=== PATIENT | male | born 1955 | race Caucasian/White ===

== ENCOUNTER 2017-11-26 12:37 | Emergency (ER) | payer MEDICARE, SELFPAY ==
[2017-11-26 12:38] VITALS: BP 161/104; PULSE 91; RESP 16; TEMP 36.9; O2SAT 100; BMI 29.5
--- NOTE | 2017-11-26 13:00 | VDLE_ITS ---
Reason For Study: swelling RIGHT LEFT GSV is normal. GSV is normal. CFV is compressible, spontaneous, phasic, CFV is compressible, spontaneous, phasic, competent and demonstrates normal competent, and demonstrates normal augmentation. augmentation. FV is compressible, spontaneous, phasic, FV is compressible, spontaneous, phasic, competent and demonstrates normal competent and demonstrates normal augmentation. augmentation. POP V is compressible, spontaneous, phasic, POP V is compressible, spontaneous, phasic, competent and demonstrates normal competent and demonstrates normal augmentation. augmentation. T/P Trunk is compressible. T/P Trunk is compressible. PTV is compressible. PTV is compressible. RT PerV is compressible. LT PerV is compressible. Procedure Exam performed portable in ED. The exam was diagnostic. A preliminary report was called and/or faxed to Dr. Caldwell. Interpretation Summary No evidence for acute deep venous thrombosis bilateral lower extremities with patent and compressible bilateral great saphenous veins. Ordering Physician: Blayne Caldwell Performed By: Sukhjinder Rodriguez RVT
[2017-11-26] MEDS: 0.9% Normal Saline 1,000 ML 150 ML IV (13:15)
[2017-11-26 13:17] LABS: Absolute Lymphocyte Count 1.28 X10^3/ul (0.83-4.51); Absolute Neutrophil Count 4.6 X10^3/uL (2.0-7.7); Basophil# 0.03 X10^3/uL; Basophil% 0.5 % (0-1); Eosinophil# 0.17 X10^3/uL; Eosinophils% 2.6 % (0-5); Hematocrit 42.2 % (40-54); Lymphocyte # 1.28 X10^3/ul (4.0); Lymphocyte % 19.2 % (19-41); Mean Corp Hgb Conc 33.2 g/gl (32-36); Mean Corpuscular Hgb 30.4 pg (27.0-32.0); Mean Corpuscular Volume 91.5 fL (80-94); Mean Platelet Vol. 10.2 fl (6.2-12.0); Monocyte# 0.57 X10^3/uL; Monocyte% 8.6 % (0-10); Neutrophil # 4.59 X10^3/uL (2.7-7.7); Neutrophil % 68.8 % (47-70); Platelet Count 185 K/mm3 (150-450); RBC Distribution Width CV 13.1 % (11.6-14.6); RBC Distribution Width SD 43.3 fl (35.1-43.9); Red Blood Count 4.61 M/mm3 (4.6-6.2); White Blood Count 6.7 K/mm3 (4.4-11.0)
--- NOTE | 2017-11-26 13:22 | ED.DCSUM_ITS ---
- ER Visit Summary Date of Service: 11/26/17 Chief Complaint: [Bilateral leg edema and erythema] History of Present Illness: The patient is a 62 M [presents the emergency department chief complaint of red swollen legs ?3-4 months. Patient states that he was seen at urgent care today and was advised to come to the emergency department. Patient denies any fever. Denies any injury to his legs. He denies recent travel or surgery. Patient relates a history years ago of sepsis from strep related to a left foot wound that required debridement. Patient has a history of diabetes, hypertension, COPD, seizure disorder, and sepsis history. ] Physical Examination: [HEENT-PERRLA, EOMI. Cranial nerves II through XII grossly intact. TMs clear. Mucous membranes moist. No adenopathy. Cardiovascular-regular rate and rhythm without murmur or ectopy Lungs-clear to auscultation, chest wall stable without crepitus or subcu emphysema Abdomen-normoactive bowel sounds, soft, nontender, no rebound or rigidity, no peritoneal signs. Extremities-intact ?4, normal range of motion, normal pulses, atraumatic]. Patient has diffuse erythema of both lower extremities below the knee and down to both feet. Lower extremities are warm to the touch. Normal pulses palpated in both lower extremities. Test Results: [Venous duplex of both lower extremities were negative for DVT. CBC with differential showed a white blood cell count of 6.7, hemoglobin 14, hematocrit 42, platelets 185. Chemistries unremarkable.] Emergency Department Course and Treatment: [Patient was medicated with Unasyn 3 g IV.] Treatment Plan: [Patient will be treated with Keflex and advised to follow-up with his primary care physician within the next 3-5 days. Patient to return if fever, increased redness or swelling, or condition should worsen in any way.] Disposition: [Discharged to home in stable condition.] Impression: [Bilateral lower extremity cellulitis] This note was generated with [employer] dictation software. It may contain incorrect words, spelling, and punctuation that were not noted in review of the chart prior to signing ED Disposition - Plan for ED Patient: Chief Complaint: Cellulitis Referrals: Dhara Taylor DO [Primary Care Provider] -
[2017-11-26 13:28] LABS: POSITIVE COUNT NO; POSITIVE DIFFERENTIAL NO; POSITIVE MORPHOLOGY NO
[2017-11-26 13:36] LABS: Anion Gap 4 (5-15); BUN 21 mg/dL (7-18); BUN/Creat Ratio 19.3 RATIO (10-20); Chloride 102 mmol/L (98-107); Creatinine, Serum 1.09 mg/dL (0.70-1.30); EST Glomerular Filtration Rate 73 mL/min (>60); Est Glom Filt Rate - Afr Amer 88 mL/min (>60); Estimated Creatinine Clearance 73.48 ml/min; Glucose 85 mg/dL (74-106); Potassium 4.1 mmol/L (3.5-5.1); Sodium Level 139 mmol/L (136-145)
--- NOTE | 2017-11-26 14:35 | ED.DEP ---
ED Disposition - Plan for ED Patient: Chief Complaint: Cellulitis Instructions: Discharge Instructions for Cellulitis Prescriptions: Cephalexin [Keflex] 500 mg PO Q6 #40 cap Referrals: Dhara Taylor DO [Primary Care Provider] - 3-5 Days
[2017-11-26 14:48] VITALS: BP 129/84; PULSE 71; RESP 16; O2SAT 97
== END 2017-11-26 14:49 | disposition home or self-care (01) ==
LOC: ED 13:03
PROVIDERS: Emergency Provider Emergency Medicine; Family Provider Internal Medicine; PCP Internal Medicine
DX: L03.116 Cellulitis of left lower limb (principal); L03.115 Cellulitis of right lower limb; E11.9 Type 2 diabetes mellitus without complications; I10 Essential (primary) hypertension; J44.9 Chronic obstructive pulmonary disease, unspecified; J45.909 Unspecified asthma, uncomplicated; G40.909 Epilepsy, unspecified, not intractable, without status epilepticus; Z86.19 Personal history of other infectious and parasitic diseases; Z72.0 Tobacco use; Z79.82 Long term (current) use of aspirin; Z79.84 Long term (current) use of oral hypoglycemic drugs; Z79.899 Other long term (current) drug therapy
CPT/HCPCS: 80048; 85025; 93970; 96361; 96365; 99283; J7030; J0295

== ENCOUNTER → 2018-01-21 08:11 | Outpatient (CLI) | payer MEDICARE, SELFPAY ==
[2018-01-21 09:16] LABS: Platelet Count 178 K/mm3 (150-450)
[2018-01-21 09:48] LABS: Valproic Acid (Depakene) Level 73 ug/mL (50-100)
[2018-01-21 09:53] LABS: AST(SGOT) 20 U/L (15-37); Alanine Aminotransfer ALT/SGPT 15 U/L (16-61)
== END ==
PROVIDERS: Family Provider Internal Medicine; PCP Internal Medicine; Visit Provider Psychiatry & Neurology Psychiatry
DX: Z79.899 Other long term (current) drug therapy (principal)
CPT/HCPCS: 36415; 80164; 84450; 84460; 85049

== ENCOUNTER 2018-03-18 17:09 | Emergency (ER) | payer MEDICARE, SELFPAY ==
[2018-03-18 17:11] VITALS: BP 168/99; PULSE 89; RESP 18; TEMP 36.5; O2SAT 99; BMI 28.7
--- NOTE | 2018-03-18 18:15 | ED.VISSUMM ---
- ER Visit Summary Date of Service: 03/18/18 Chief Complaint: Left forearm pain History of Present Illness: The patient is a 62 M presenting with left forearm pain ?5-6 months. He states he has pain to the volar aspect of the left forearm. He states this has been ongoing for the past 5-6 months. He is concerned about possibility of fibromyalgia. He denies any injury. Denies chest pain or shortness of breath. Denies fever. He saw his primary care physician yesterday but did not mention this to her. He has tried ibuprofen at home. Denies other complaints. Physical Examination: Vitals are stable. Patient is afebrile. Alert no acute distress. HEENT exam is unremarkable. Neck is supple. Lungs are clear and equal bilaterally. Heart is regular rate and rhythm. Abdomen is soft nontender nondistended. Extremities are unremarkable. No erythema or warmth. No bony tenderness. AFROM. Normal distal pulses, normal cap refill Skin is warm and dry. No focal neurologic deficit. Remainder of exam is unremarkable. Emergency Department Course and Treatment: Patient is given Motrin. Advised to follow-up with his primary care physician. Advised return to ED for worsening complaints. Disposition: Discharge home Impression: Left forearm pain This note was generated with [employer] dictation software. It may contain incorrect words, spelling, and punctuation that were not noted in review of the chart prior to signing ED Disposition - Plan for ED Patient: Chief Complaint: Upper Extremity Injury Referrals: Dhara Taylor DO [Primary Care Provider] -
--- NOTE | 2018-03-18 18:17 | ED.DEP ---
ED Disposition - Plan for ED Patient: Chief Complaint: Upper Extremity Injury Instructions: ED Spasm Muscle Referrals: Dhara Taylor DO [Primary Care Provider] -
[2018-03-18] MEDS: Ibuprofen 600 MG Tablet PO (18:18)
== END 2018-03-18 18:36 | disposition home or self-care (01) ==
LOC: ED 18:20
PROVIDERS: Emergency Provider Emergency Medicine; Family Provider Internal Medicine; PCP Internal Medicine
DX: M79.632 Pain in left forearm (principal); G89.29 Other chronic pain; F20.9 Schizophrenia, unspecified; Z79.82 Long term (current) use of aspirin; Z79.84 Long term (current) use of oral hypoglycemic drugs; Z79.899 Other long term (current) drug therapy
CPT/HCPCS: 99283

== ENCOUNTER 2018-04-04 15:30 | Outpatient (RCR) | payer MEDICARE, SELFPAY ==
[2018-03-21 13:53] VITALS: BP 146/80; PULSE 83; RESP 18; TEMP 35.9; BMI 27.9
--- NOTE | 2018-03-21 20:29 | PCM.WC.HP ---
(1) Ulcer of left borja with fat layer exposed Status: Acute Current Visit: Yes Code(s): L97.822 - Non-pressure chronic ulcer of other part of left lower leg with fat layer exposed (2) Venous ulcer of left lower extremity without varicose veins Status: Acute Current Visit: Yes Code(s): I87.2 - Venous insufficiency (chronic) (peripheral); L97.929 - Non-pressure chronic ulcer of unspecified part of left lower leg with unspecified severity (3) COPD (chronic obstructive pulmonary disease) Status: Chronic Current Visit: Yes Qualifiers: COPD type: unspecified COPD Qualified Code(s): J44.9 - Chronic obstructive pulmonary disease, unspecified Code(s): J44.9 - Chronic obstructive pulmonary disease, unspecified (4) Type II diabetes mellitus Status: Chronic Current Visit: Yes Qualifiers: Diabetes mellitus terminal makeup operator insulin use: without fci use Diabetes mellitus complication status: without complication Qualified Code(s): E11.9 - Type 2 diabetes mellitus without complications Code(s): E11.9 - Type 2 diabetes mellitus without complications (5) Bilateral leg edema Status: Chronic Current Visit: Yes Code(s): R60.0 - Localized edema (6) Schizophrenia Status: Acute Current Visit: Yes Qualifiers: Schizophrenia type: disorganized schizophrenia Qualified Code(s): F20.1 - Disorganized schizophrenia Code(s): F20.9 - Schizophrenia, unspecified History of Present Illness Date of Service: 03/21/18 Chief Complaint: Wound to the left borja History of Wound: Ajit presents to the wound center for treatment of a nonhealing wound of his left borja that he has had for several weeks. He thinks he may have scratched it in brambles. He has edema to LE b/l and has been treated here in the past for similar wounds. He had arterial studies in 2013 which did not show any significant arterial disease. He had venous studies done in 11/2017 which did not show DVT or incompetent veins in his LE. Dr. Taylor treated him with 2 different antibiotics and he has been applying topical ointment and gauze to the wound but it was not improving. He did start wearing compression stockings in the last day or two. He denies pain, fever, chills, odor or drainage. He lives in a skilled nursing and cares for himself with supervision from staff. He is accompanied today by his telephonic nurse case manager, Isaca. Past Medical History Past Medical History: Chronic Problems COPD (chronic obstructive pulmonary disease) (Chronic) Right-sided heart failure (Chronic) Type II diabetes mellitus (Chronic) Bilateral leg edema (Chronic) Surgical History: tonsillectomy, - - Debridement of left foot ulcer Allergies/Adverse Reactions: Allergies sulfamethoxazole Allergy (Mild, Verified 03/18/18 17:12) Unknown trimethoprim Allergy (Mild, Verified 03/18/18 17:12) Unknown Penicillins [PCN] Allergy (Verified 03/21/18 20:36) Unknown Home Medications: Ambulatory Orders Medication Instructions Recorded Fluticasone/Salmeterol [Advair 1 puff INHALATION BID 02/12/15 500/50 Mcg Diskus] Metformin HCl [Glucophage] 500 mg PO TID 02/12/15 Multivitamin [Multiple Vitamins] 1 tab PO DAILY 09/23/16 Aspirin [Aspirin EC] 325 mg PO DAILY 09/25/16 Lorazepam [Ativan] 1 mg PO DAILY PRN 09/25/16 Divalproex Sodium [Depakote] 500 mg PO DAILY 03/30/17 Risperidone Microspheres 50 mg IM QMONTH 03/30/17 [Risperdal Consta] Fluticasone Propionate [Flonase 1 spray NARES DAILY #1 spray.susp 08/07/17 Allergy Relief] Benztropine [Cogentin] 1 mg PO TID 11/26/17 Albuterol Inhaler [Ventolin Hfa 2 puff INHALATION Q6H PRN PRN 03/21/18 (SP)] Bupropion HCl [Bupropion HCl ER] 150 mg PO DAILY 03/21/18 Doxycycline Hyclate 100 mg PO BID 03/21/18 Fexofenadine HCl 1 tab PO DAILY 03/21/18 Lisinopril 20 mg PO DAILY 03/21/18 Metformin HCl [Glucophage] 500 mg PO DAILY 03/21/18 Multivitamin [Daily Multiple 1 each PO DAILY 03/21/18 Vitamin] - Family History Maternal Heart Disease Paternal Diabetes Sibling Hypertension Lives: - - skilled nursing Smoking Status: Current every day smoker Tobacco Use: Cigarettes Alcohol: None Drugs: Marijuana Review of Systems Constitutional: Denies: Chills, Fever, Weight Change Eyes: Denies: Pain, Vision Change HEENT: Denies: Difficulty Hearing, Difficulty Swallowing, Sinus Congestion Cardiovascular: Denies: Chest Pain, Palpitations Respiratory: Denies: Cough, Shortness of Breath Gastrointestinal: Denies: Diarrhea, Nausea, Vomiting Genitourinary: Denies: Dysuria, Hematuria Skin: Reports: Wounds Psychiatric: Denies: Homicidal Ideations, Suicidal Ideations Hematologic/ Lymphatic: Denies: Easy Bruising, Easy Bleeding - Physical Exam Vital Signs Temp Pulse Resp BP 96.6 F L 83 18 146/80 H 03/21/18 13:53 03/21/18 13:53 03/21/18 13:53 03/21/18 13:53 General: Alert, Oriented x3, Cooperative, No apparent distress HEENT: Atraumatic, Normocephalic Oral: Moist Mucosa Neck: Supple, No JVD, Negative Carotid Bruits Lungs: Clear to auscultation Cardiovascular: Regular rate, Regular Rhythm Abdomen: Soft, Non Tender, Obese Extremities: Edema, Peripheral Pulses Normal Skin: Ulcer/ Wound Wound Measurements and Assessment WC - Nurse 1 - General Ulcer Measurement Start: 03/21/18 13:50 Freq: Status: Active Protocol: Activity Type Activity Date Activity User E-Sign Co-Sign Detail Recorded Client Recorded Date Recorded By Document 03/21/18 13:53 DL [id number] 03/21/18 14:14 DL 03/21/18 13:53 Wound Center Nurse 1 [Ulcer Assessment] #2 left borja -Combined with other wound No -Current Size (cm) - Length 0.8 -Current Size (cm) - Width 0.7 -Current Size (cm) - Depth 0.1 -Total Square Cm 0.56 -Date of Last Picture (Recall this 03/21/18 field) -Photo Taken Yes -Epithelialization None Present -Tunneling No -Undermining/Tunneling No -Circular Undermining No -Classification - Thickness Partial Thickness -Exudate Amt None Present (0 %) -Wound Margin Distinct, Outline Attached -Granulation Amt Small (1-33%) -Granulation Quality Sultan -Necrosis Amt None Present (0 %) -Necrotic Tissue Type Adherent Slough -Structure Exposed None/Limited to Skin Breakdown -Texture (Marianela-wound Skin Appearance) No Abnormality Assessed -Moisture (Marianela-wound Skin Appearance No Abnormality ) Assessed -Color (Marianela-wound Skin Appearance) No Abnormality Assessed -Temperature (Marianela-wound Skin No Abnormality Appearance) (Pt Warm) -Tenderness on Palpation (Marianela-wound No Skin Appearance) -Ulcer Cleansing Wound Cleanser -Foul Odor after Cleansing No -Anesthetic Used 4% Lidocaine Solution [Edema Assessment] -Lower Limb Edema Present Yes -Right Calf (cm) 38 -Right Ankle (cm) 24.5 -Left Calf (cm) 37.8 -Left Ankle (cm) 22.8 NUVIA - Nurse 2 - General Ulcer CM Notes Start: 03/21/18 13:50 Freq: Status: Active Protocol: Activity Type Activity Date Activity User E-Sign Co-Sign Detail Recorded Client Recorded Date Recorded By Document 03/21/18 15:45 DV [id number] 03/21/18 15:51 DV 03/21/18 15:45 Wound Center Nurse 2 [Procedure/Treatment] #2 left borja -Time 15:45 -Post Debridement Size (cm) - Length 1.1 -Post Debridement Size (cm) - Width 0.6 -Post Debridement Size (cm) - Depth 0.1 -Total Square Cm 0.66 -Wound/Ulcer Outcome Not Healed -Ulcer Cleansing Rinsed/ Irrigated with Saline -Foul Odor after Cleansing No -Bioengineered Tissue No -Bleeding Controlled with NA -Treatment Response Procedure Tolerated Well [See Physician Procedure note for Specifics] Pain Scale: 0-10 Numeric [Pain] -Is Patient Pain Free? Yes Psych/Mental Status: Flat Affect Debridement Note Post-Debridement Measurements/Treatment WC - Nurse 2 - General Ulcer CM Notes Start: 03/21/18 13:50 Freq: Status: Active Protocol: Activity Type Activity Date Activity User E-Sign Co-Sign Detail Recorded Client Recorded Date Recorded By Document 03/21/18 15:45 DV [id number] 03/21/18 15:51 DV 03/21/18 15:45 Wound Center Nurse 2 #2 left borja -Time 15:45 -Post Debridement Size (cm) - Length 1.1 -Post Debridement Size (cm) - Width 0.6 -Post Debridement Size (cm) - Depth 0.1 -Total Square Cm 0.66 -Wound/Ulcer Outcome Not Healed -Ulcer Cleansing Rinsed/ Irrigated with Saline -Foul Odor after Cleansing No -Bioengineered Tissue No -Bleeding Controlled with NA -Treatment Response Procedure Tolerated Well Pain Scale: 0-10 Numeric Is Patient Pain Free? Yes Wound debrided: left borja Laterality: Left Type of Debridement: Excisional debridement Anesthesia Used: 4% Lidocaine Solution, 5% Lidocaine Gel Depth: Down to and including healthy tissue, in the subcutaneous layer Percentage of wound debrided: 100 Instrument Used: 5mm curette Tissue Removed: yellow slough, devitalized tissue Severity: Fat Layer Exposed Amount of bleeding with debridement: Mild Bleeding Controlled with: Compression and gauze Patient tolerated procedure well Assessment/Plan Active Problems Ulcer of left borja with fat layer exposed (Acute) Venous ulcer of left lower extremity without varicose veins (Acute) Schizophrenia (Acute) COPD (chronic obstructive pulmonary disease) (Chronic) Type II diabetes mellitus (Chronic) Bilateral leg edema (Chronic) Assessment: nonhealing wound left borja. venous ulcer left borja. b/l LE edema. DM type II Plan: Ajit's wound was evaluated and debrided today. His previous testing was reviewed. Will treat his wound with Caron dressings changed daily and advised him to wear his compression stockings. If there is difficulty with healing would repeat his arterial studies. Encouraged increased protein, elevation of LE and wearing compression stockings while awake and removing at bedtime. F/U in 1 week.
--- NOTE | 2018-03-21 20:41 | HP.PCM_ITS ---
(1) Ulcer of left borja with fat layer exposed Status: Acute Current Visit: Yes Code(s): L97.822 - Non-pressure chronic ulcer of other part of left lower leg with fat layer exposed (2) Venous ulcer of left lower extremity without varicose veins Status: Acute Current Visit: Yes Code(s): I87.2 - Venous insufficiency ( chronic) (peripheral); L97.929 - Non-pressure chronic ulcer of unspecified part of left lower leg with unspecified severity (3) COPD (chronic obstructive pulmonary disease) Status: Chronic Current Visit: Yes Qualifiers: COPD type: unspecified COPD Qualified Code(s): J44.9 - Chronic obstructive pulmonary disease, unspecified Code(s): J44.9 - Chronic obstructive pulmonary disease, unspecified (4) Type II diabetes mellitus Status: Chronic Current Visit: Yes Qualifiers: 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 Diabetes mellitus complication status: without complication Qualified Code(s): E11.9 - Type 2 diabetes mellitus without complications Code(s): E11.9 - Type 2 diabetes mellitus without complications (5) Bilateral leg edema Status: Chronic Current Visit: Yes Code(s): R60.0 - Localized edema (6) Schizophrenia Status: Acute Current Visit: Yes Qualifiers: Schizophrenia type: disorganized schizophrenia Qualified Code(s): F20.1 - Disorganized schizophrenia Code(s): F20.9 - Schizophrenia, unspecified History of Present Illness Date of Service: 03/21/18 Chief Complaint: Wound to the left borja History of Wound: Ajit presents to the wound center for treatment of a nonhealing wound of his left borja that he has had for several weeks. He thinks he may have scratched it in brambles. He has edema to LE b/l and has been treated here in the past for similar wounds. He had arterial studies in 2013 which did not show any significant arterial disease. He had venous studies done in 11/2017 which did not show DVT or incompetent veins in his LE. Dr. Taylor treated him with 2 different antibiotics and he has been applying topical ointment and gauze to the wound but it was not improving. He did start wearing compression stockings in the last day or two. He denies pain, fever, chills, odor or drainage. He lives in a skilled nursing and cares for himself with supervision from staff. He is accompanied today by his field case manager, Isaac. Past Medical History Past Medical History: Chronic Problems COPD (chronic obstructive pulmonary disease) (Chronic) Right-sided heart failure (Chronic) Type II diabetes mellitus (Chronic) Bilateral leg edema (Chronic) Surgical History: tonsillectomy, - - Debridement of left foot ulcer Allergies/Adverse Reactions: Allergies sulfamethoxazole Allergy (Mild, Verified 03/18/18 17:12) Unknown trimethoprim Allergy (Mild, Verified 03/18/18 17:12) Unknown Penicillins [PCN] Allergy (Verified 03/21/18 20:36) Unknown Home Medications: Ambulatory Orders Medication Instructions Recorded Fluticasone/Salmeterol [Advair 1 puff INHALATION BID 02/12/15 500/50 Mcg Diskus] Metformin HCl [Glucophage] 500 mg PO TID 02/12/15 Multivitamin [Multiple Vitamins] 1 tab PO DAILY 09/23/16 Aspirin [Aspirin EC] 325 mg PO DAILY 09/25/16 Lorazepam [Ativan] 1 mg PO DAILY PRN 09/25/16 Divalproex Sodium [Depakote] 500 mg PO DAILY 03/30/17 Risperidone Microspheres 50 mg IM QMONTH 03/30/17 [Risperdal Consta] Fluticasone Propionate [Flonase 1 spray NARES DAILY #1 spray.susp 08/07/17 Allergy Relief] Benztropine [Cogentin] 1 mg PO TID 11/26/17 Albuterol Inhaler [Ventolin Hfa 2 puff INHALATION Q6H PRN PRN 03/21/18 (SP)] Bupropion HCl [Bupropion HCl ER] 150 mg PO DAILY 03/21/18 Doxycycline Hyclate 100 mg PO BID 03/21/18 Fexofenadine HCl 1 tab PO DAILY 03/21/18 Lisinopril 20 mg PO DAILY 03/21/18 Metformin HCl [Glucophage] 500 mg PO DAILY 03/21/18 Multivitamin [Daily Multiple 1 each PO DAILY 03/21/18 Vitamin] - Family History Maternal Heart Disease Paternal Diabetes Sibling Hypertension Lives: - - skilled nursing Smoking Status: Current every day smoker Tobacco Use: Cigarettes Alcohol: None Drugs: Marijuana Review of Systems Constitutional: Denies: Chills, Fever, Weight Change Eyes: Denies: Pain, Vision Change HEENT: Denies: Difficulty Hearing, Difficulty Swallowing, Sinus Congestion Cardiovascular: Denies: Chest Pain, Palpitations Respiratory: Denies: Cough, Shortness of Breath Gastrointestinal: Denies: Diarrhea, Nausea, Vomiting Genitourinary: Denies: Dysuria, Hematuria Skin: Reports: Wounds Psychiatric: Denies: Homicidal Ideations, Suicidal Ideations Hematologic/ Lymphatic: Denies: Easy Bruising, Easy Bleeding - Physical Exam Vital Signs Temp Pulse Resp BP 96.6 F L 83 18 146/80 H 03/21/18 13:53 03/21/18 13:53 03/21/18 13:53 03/21/18 13:53 General: Alert, Oriented x3, Cooperative, No apparent distress HEENT: Atraumatic, Normocephalic Oral: Moist Mucosa Neck: Supple, No JVD, Negative Carotid Bruits Lungs: Clear to auscultation Cardiovascular: Regular rate, Regular Rhythm Abdomen: Soft, Non Tender, Obese Extremities: Edema, Peripheral Pulses Normal Skin: Ulcer/ Wound Wound Measurements and Assessment WC - Nurse 1 - General Ulcer Measurement Start: 03/21/18 13:50 Freq: Status: Active Protocol: Activity Type Activity Date Activity User E-Sign Co-Sign Detail Recorded Client Recorded Date Recorded By Document 03/21/18 13:53 DL [id number] 03/21/18 14:14 DL 03/21/18 13:53 Wound Center Nurse 1 [Ulcer Assessment] #2 left borja -Combined with other wound No -Current Size (cm) - Length 0.8 -Current Size (cm) - Width 0.7 -Current Size (cm) - Depth 0.1 -Total Square Cm 0.56 -Date of Last Picture (Recall this 03/21/18 field) -Photo Taken Yes -Epithelialization None Present -Tunneling No -Undermining/Tunneling No -Circular Undermining No -Classification - Thickness Partial Thickness -Exudate Amt None Present (0 %) -Wound Margin Distinct, Outline Attached -Granulation Amt Small (1-33%) -Granulation Quality [place] -Necrosis Amt None Present (0 %) -Necrotic Tissue Type Adherent Slough -Structure Exposed None/Limited to Skin Breakdown -Texture (Marianela-wound Skin Appearance) No Abnormality Assessed -Moisture (Marianela-wound Skin Appearance No Abnormality ) Assessed -Color (Marianela-wound Skin Appearance) No Abnormality Assessed -Temperature (Marianela-wound Skin No Abnormality Appearance) (Pt Warm) -Tenderness on Palpation (Marianela-wound No Skin Appearance) -Ulcer Cleansing Wound Cleanser -Foul Odor after Cleansing No -Anesthetic Used 4% Lidocaine Solution [Edema Assessment] -Lower Limb Edema Present Yes -Right Calf (cm) 38 -Right Ankle (cm) 24.5 -Left Calf (cm) 37.8 -Left Ankle (cm) 22.8 NUVIA - Nurse 2 - General Ulcer CM Notes Start: 03/21/18 13:50 Freq: Status: Active Protocol: Activity Type Activity Date Activity User E-Sign Co-Sign Detail Recorded Client Recorded Date Recorded By Document 03/21/18 15:45 DV [id number] 03/21/18 15:51 DV 03/21/18 15:45 Wound Center Nurse 2 [Procedure/Treatment] #2 left borja -Time 15:45 -Post Debridement Size (cm) - Length 1.1 -Post Debridement Size (cm) - Width 0.6 -Post Debridement Size (cm) - Depth 0.1 -Total Square Cm 0.66 -Wound/Ulcer Outcome Not Healed -Ulcer Cleansing Rinsed/ Irrigated with Saline -Foul Odor after Cleansing No -Bioengineered Tissue No -Bleeding Controlled with NA -Treatment Response Procedure Tolerated Well [See Physician Procedure note for Specifics] Pain Scale: 0-10 Numeric [Pain] -Is Patient Pain Free? Yes Psych/Mental Status: Flat Affect Debridement Note Post-Debridement Measurements/Treatment WC - Nurse 2 - General Ulcer CM Notes Start: 03/21/18 13:50 Freq: Status: Active Protocol: Activity Type Activity Date Activity User E-Sign Co-Sign Detail Recorded Client Recorded Date Recorded By Document 03/21/18 15:45 DV [id number] 03/21/18 15:51 DV 03/21/18 15:45 Wound Center Nurse 2 #2 left borja -Time 15:45 -Post Debridement Size (cm) - Length 1.1 -Post Debridement Size (cm) - Width 0.6 -Post Debridement Size (cm) - Depth 0.1 -Total Square Cm 0.66 -Wound/Ulcer Outcome Not Healed -Ulcer Cleansing Rinsed/ Irrigated with Saline -Foul Odor after Cleansing No -Bioengineered Tissue No -Bleeding Controlled with NA -Treatment Response Procedure Tolerated Well Pain Scale: 0-10 Numeric Is Patient Pain Free? Yes Wound debrided: left borja Laterality: Left Type of Debridement: Excisional debridement Anesthesia Used: 4% Lidocaine Solution, 5% Lidocaine Gel Depth: Down to and including healthy tissue, in the subcutaneous layer Percentage of wound debrided: 100 Instrument Used: 5mm curette Tissue Removed: yellow slough, devitalized tissue Severity: Fat Layer Exposed Amount of bleeding with debridement: Mild Bleeding Controlled with: Compression and gauze Patient tolerated procedure well Assessment/Plan Active Problems Ulcer of left borja with fat layer exposed (Acute) Venous ulcer of left lower extremity without varicose veins (Acute) Schizophrenia (Acute) COPD (chronic obstructive pulmonary disease) (Chronic) Type II diabetes mellitus (Chronic) Bilateral leg edema (Chronic) Assessment: nonhealing wound left borja. venous ulcer left borja. b/l LE edema. DM type II Plan: Ajit's wound was evaluated and debrided today. His previous testing was reviewed. Will treat his wound with Caron dressings changed daily and advised him to wear his compression stockings. If there is difficulty with healing would repeat his arterial studies. Encouraged increased protein, elevation of LE and wearing compression stockings while awake and removing at bedtime. F/U in 1 week.
[2018-03-28 14:39] VITALS: BP 144/78; PULSE 75; RESP 16; TEMP 36.1; BMI 27.9
[2018-04-04 15:16] VITALS: BP 126/76; PULSE 94; RESP 18; TEMP 36.7; BMI 27.9
--- NOTE | 2018-04-04 20:01 | PCM.WC.PN ---
(1) Ulcer of left borja with fat layer exposed Status: Chronic Current Visit: Yes Code(s): L97.822 - Non-pressure chronic ulcer of other part of left lower leg with fat layer exposed (2) Venous ulcer of left lower extremity without varicose veins Status: Chronic Current Visit: Yes Code(s): I87.2 - Venous insufficiency (chronic) (peripheral); L97.929 - Non-pressure chronic ulcer of unspecified part of left lower leg with unspecified severity (3) COPD (chronic obstructive pulmonary disease) Status: Chronic Current Visit: Yes Qualifiers: COPD type: unspecified COPD Qualified Code(s): J44.9 - Chronic obstructive pulmonary disease, unspecified Code(s): J44.9 - Chronic obstructive pulmonary disease, unspecified (4) Type II diabetes mellitus Status: Chronic Current Visit: Yes Qualifiers: Diabetes mellitus prison insulin use: without buttermaker continuous churn use Diabetes mellitus complication status: without complication Qualified Code(s): E11.9 - Type 2 diabetes mellitus without complications Code(s): E11.9 - Type 2 diabetes mellitus without complications (5) Bilateral leg edema Status: Chronic Current Visit: Yes Code(s): R60.0 - Localized edema (6) Schizophrenia Status: Chronic Current Visit: Yes Qualifiers: Schizophrenia type: disorganized schizophrenia Qualified Code(s): F20.1 - Disorganized schizophrenia Code(s): F20.9 - Schizophrenia, unspecified Type of Wound Date of Service: 04/04/18 Chief Complaint: Wound to the left borja History of Wound: Ajit presents to the wound center for treatment of a nonhealing wound of his left borja that he has had for several weeks. He thinks he may have scratched it in brambles. He has edema to LE b/l and has been treated here in the past for similar wounds. He had arterial studies in 2013 which did not show any significant arterial disease. He had venous studies done in 11/2017 which did not show DVT or incompetent veins in his LE. Dr. Taylor treated him with 2 different antibiotics and he has been applying topical ointment and gauze to the wound but it was not improving. He did start wearing compression stockings in the last day or two. He denies pain, fever, chills, odor or drainage. [facility] and cares for himself with supervision from staff. He is accompanied today by his briefcase sewer, Isaac. Progress of Wound: Ajit's wound has healed but he has developed another similar wound on his medial left LE. He denies any known injury. He is wearing compression faithfully. Denies increased drainage or erythema or pain. - Physical Exam Vital Signs Temp Pulse Resp BP 98.0 F 94 18 126/76 H 04/04/18 15:16 04/04/18 15:16 04/04/18 15:16 04/04/18 15:16 General: Alert, Oriented x3, Cooperative, No apparent distress HEENT: Atraumatic, Normocephalic Abdomen: Obese Extremities: Edema Skin: Ulcer/ Wound Wound Measurements and Assessment WC - Nurse 1 - General Ulcer Measurement Start: 03/21/18 13:50 Freq: Status: Active Protocol: Activity Type Activity Date Activity User E-Sign Co-Sign Detail Recorded Client Recorded Date Recorded By Document 04/04/18 15:16 [email or web address] [id number] 04/04/18 15:31 FIDENCIO 04/04/18 15:16 Wound Center Nurse 1 [Ulcer Assessment] #3 LEFT MEDIAL BORJA -Combined with other wound No -Current Size (cm) - Length 0.7 -Current Size (cm) - Width 0.9 -Current Size (cm) - Depth 0.1 -Total Square Cm 0.63 -Date of Last Picture (Recall this 04/04/18 field) -Photo Taken Yes -Epithelialization None Present -Tunneling No -Undermining/Tunneling No -Circular Undermining No -Exudate Amt Small (1-33%) -Exudate Type Serosanguineous -Wound Margin Distinct, Outline Attached -Granulation Amt Small (1-33%) -Granulation Quality Red -Slough/Fibrin Yes -Necrosis Amt None Present (0 %) -Necrotic Tissue Type Adherent Slough -Structure Exposed N/A -Texture (Marianela-wound Skin Appearance) No Abnormality -Moisture (Marianela-wound Skin Appearance No Abnormality ) -Color (Marianela-wound Skin Appearance) No Abnormality -Temperature (Marianela-wound Skin No Abnormality Appearance) (Pt Warm) -Tenderness on Palpation (Marianela-wound No Skin Appearance) -Ulcer Cleansing Rinsed/ Irrigated with Saline -Foul Odor after Cleansing No -Anesthetic Used 4% Lidocaine Solution #2 left borja -Combined with other wound No -Current Size (cm) - Length 0.1 -Current Size (cm) - Width 0.1 -Current Size (cm) - Depth 0.1 -Total Square Cm 0.01 -Date of Last Picture (Recall this 04/04/18 field) -Photo Taken Yes -Epithelialization Large 67-100% -Tunneling No -Undermining/Tunneling No -Circular Undermining No -Change in Wound Grade/Stage No Query Text:If change please identify the Stage/Grade in the comment (ie. S2 G3) -Exudate Amt None Present (0 %) -Wound Margin Distinct, Outline Attached -Granulation Amt None Present (0 %) -Granulation Quality N/A -Slough/Fibrin No -Necrosis Amt None Present (0 %) -Structure Exposed N/A -Texture (Marianela-wound Skin Appearance) No Abnormality -Moisture (Marianela-wound Skin Appearance No Abnormality ) -Color (Marianela-wound Skin Appearance) Hemosiderin Staining -Temperature (Marianela-wound Skin No Abnormality Appearance) (Pt Warm) -Tenderness on Palpation (Marianela-wound No Skin Appearance) -Ulcer Cleansing Rinsed/ Irrigated with Saline -Foul Odor after Cleansing No [Edema Assessment] -Lower Limb Edema Present Yes -Left Calf (cm) 36.7 -Left Ankle (cm) 23.5 WC - Nurse 2 - General Ulcer CM Notes Start: 03/21/18 13:50 Freq: Status: Active Protocol: Activity Type Activity Date Activity User E-Sign Co-Sign Detail Recorded Client Recorded Date Recorded By Document 04/04/18 16:21 [id number] 04/04/18 16:26 04/04/18 16:21 Wound Center Nurse 2 [Procedure/Treatment] #3 LEFT MEDIAL BORJA -Time 16:21 -Correct Patient Yes -Correct Side, Site, Position Yes -Correct Procedure Yes -Procedure Performed Yes -Type of Procedure Debridement -Clinical Debridement Subcutaneous -Post Debridement Size (cm) - Length 0.8 -Post Debridement Size (cm) - Width 0.8 -Post Debridement Size (cm) - Depth 0.1 -Total Square Cm 0.64 -Wound/Ulcer Outcome Not Healed -Ulcer Cleansing Rinsed/ Irrigated with Saline -Foul Odor after Cleansing No -Bioengineered Tissue No -Topical Lidocaine (%) 4 -Bleeding Controlled with Pressure -Treatment Response Procedure Tolerated Well #2 left borja -Time 16:21 -Correct Patient Yes -Correct Side, Site, Position Yes -Correct Procedure Yes -Procedure Performed Yes -Post Debridement Size (cm) - Length 0 -Post Debridement Size (cm) - Width 0 -Post Debridement Size (cm) - Depth 0 -Total Square Cm 0 -Wound/Ulcer Outcome Healed- Epithelialized -Ulcer Cleansing Rinsed/ Irrigated with Saline -Foul Odor after Cleansing No -Bioengineered Tissue No -Bleeding Controlled with NA -Treatment Response Procedure Tolerated Well [See Physician Procedure note for Specifics] Pain Scale: 0-10 Numeric [Pain] -Is Patient Pain Free? Yes Psych/Mental Status: Normal Affect, Appropriate Debridement Note Post-Debridement Measurements/Treatment WC - Nurse 2 - General Ulcer CM Notes Start: 03/21/18 13:50 Freq: Status: Active Protocol: Activity Type Activity Date Activity User E-Sign Co-Sign Detail Recorded Client Recorded Date Recorded By Document 03/21/18 15:45 DV [id number] 03/21/18 15:51 DV Document 04/04/18 16:21 TM [id number] 04/04/18 16:26 TM 03/21/18 04/04/18 15:45 16:21 Wound Center Nurse 2 #3 LEFT MEDIAL BORJA -Time 16:21 -Correct Patient Yes -Correct Side, Site, Position Yes -Correct Procedure Yes -Procedure Performed Yes -Type of Procedure Debridement -Clinical Debridement Subcutaneous -Post Debridement Size (cm) - Length 0.8 -Post Debridement Size (cm) - Width 0.8 -Post Debridement Size (cm) - Depth 0.1 -Total Square Cm 0.64 -Wound/Ulcer Outcome Not Healed -Ulcer Cleansing Rinsed/ Irrigated with Saline -Foul Odor after Cleansing No -Bioengineered Tissue No -Topical Lidocaine (%) 4 -Bleeding Controlled with Pressure -Treatment Response Procedure Tolerated Well #2 left borja -Time 15:45 16:21 -Correct Patient Yes -Correct Side, Site, Position Yes -Correct Procedure Yes -Procedure Performed Yes -Post Debridement Size (cm) - Length 1.1 0 -Post Debridement Size (cm) - Width 0.6 0 -Post Debridement Size (cm) - Depth 0.1 0 -Total Square Cm 0.66 0 -Wound/Ulcer Outcome Not Healed Healed- Epithelialized -Ulcer Cleansing Rinsed/ Rinsed/ Irrigated with Irrigated with Saline Saline -Foul Odor after Cleansing No No -Bioengineered Tissue No No -Bleeding Controlled with NA NA -Treatment Response Procedure Procedure Tolerated Well Tolerated Well Pain Scale: 0-10 Numeric Is Patient Pain Free? Yes Yes Wound debrided: left borja Laterality: Left No debridement was completed today - due to wound healed - Additional Wound Wound debrided: left medial borja Laterality: Left Type of Debridement: Excisional debridement Anesthesia Used: 4% Lidocaine Solution Depth: Down to and including healthy tissue, in the subcutaneous layer Percentage of wound debrided: 100 Instrument Used: 5mm curette Tissue Removed: yellow slough, devitalized tissue Severity: Fat Layer Exposed Amount of bleeding with debridement: Mild Bleeding Controlled with: Pressure Patient tolerated procedure: Patient tolerated procedure well Assessment/Plan Active Problems Ulcer of left borja with fat layer exposed (Chronic) Venous ulcer of left lower extremity without varicose veins (Chronic) Schizophrenia (Chronic) COPD (chronic obstructive pulmonary disease) (Chronic) Type II diabetes mellitus (Chronic) Bilateral leg edema (Chronic) Assessment: nonhealing wound left borja. venous ulcer left borja. b/l LE edema. DM type II Plan: Ajit's wound was evaluated and debrided today. His previous testing has been reviewed and is not significant for valvular incompetence or arterial disease. Will treat his new wound with Caron dressings changed daily and advised him to wear his compression stockings. Encouraged increased protein, elevation of LE and wearing compression stockings while awake and removing at bedtime. F/U in 1 week.
--- NOTE | 2018-04-04 20:05 | PN.PCM_ITS ---
(1) Ulcer of left borja with fat layer exposed Status: Chronic Current Visit: Yes Code(s): L97.822 - Non-pressure chronic ulcer of other part of left lower leg with fat layer exposed (2) Venous ulcer of left lower extremity without varicose veins Status: Chronic Current Visit: Yes Code(s): I87.2 - Venous insufficiency ( chronic) (peripheral); L97.929 - Non-pressure chronic ulcer of unspecified part of left lower leg with unspecified severity (3) COPD (chronic obstructive pulmonary disease) Status: Chronic Current Visit: Yes Qualifiers: COPD type: unspecified COPD Qualified Code(s): J44.9 - Chronic obstructive pulmonary disease, unspecified Code(s): J44.9 - Chronic obstructive pulmonary disease, unspecified (4) Type II diabetes mellitus Status: Chronic Current Visit: Yes Qualifiers: Diabetes mellitus oil heaterman insulin use: without oil heaterman use Diabetes mellitus complication status: without complication Qualified Code(s): E11.9 - Type 2 diabetes mellitus without complications Code(s): E11.9 - Type 2 diabetes mellitus without complications (5) Bilateral leg edema Status: Chronic Current Visit: Yes Code(s): R60.0 - Localized edema (6) Schizophrenia Status: Chronic Current Visit: Yes Qualifiers: Schizophrenia type: disorganized schizophrenia Qualified Code(s): F20.1 - Disorganized schizophrenia Code(s): F20.9 - Schizophrenia, unspecified Type of Wound Date of Service: 04/04/18 Chief Complaint: Wound to the left borja History of Wound: Ajit presents to the wound center for treatment of a nonhealing wound of his left borja that he has had for several weeks. He thinks he may have scratched it in brambles. He has edema to LE b/l and has been treated here in the past for similar wounds. He had arterial studies in 2013 which did not show any significant arterial disease. He had venous studies done in 11/2017 which did not show DVT or incompetent veins in his LE. Dr. Taylor treated him with 2 different antibiotics and he has been applying topical ointment and gauze to the wound but it was not improving. He did start wearing compression stockings in the last day or two. He denies pain, fever, chills, odor or drainage. [facility] and cares for himself with supervision from staff. He is accompanied today by his telephonic nurse case manager, Isaac. Progress of Wound: Ajit's wound has healed but he has developed another similar wound on his medial left LE. He denies any known injury. He is wearing compression faithfully. Denies increased drainage or erythema or pain. - Physical Exam Vital Signs Temp Pulse Resp BP 98.0 F 94 18 126/76 H 04/04/18 15:16 04/04/18 15:16 04/04/18 15:16 04/04/18 15:16 General: Alert, Oriented x3, Cooperative, No apparent distress HEENT: Atraumatic, Normocephalic Abdomen: Obese Extremities: Edema Skin: Ulcer/ Wound Wound Measurements and Assessment WC - Nurse 1 - General Ulcer Measurement Start: 03/21/18 13:50 Freq: Status: Active Protocol: Activity Type Activity Date Activity User E-Sign Co-Sign Detail Recorded Client Recorded Date Recorded By Document 04/04/18 15:16 [email or web address] [id number] 04/04/18 15:31 FIDENCIO 04/04/18 15:16 Wound Center Nurse 1 [Ulcer Assessment] #3 LEFT MEDIAL BORJA -Combined with other wound No -Current Size (cm) - Length 0.7 -Current Size (cm) - Width 0.9 -Current Size (cm) - Depth 0.1 -Total Square Cm 0.63 -Date of Last Picture (Recall this 04/04/18 field) -Photo Taken Yes -Epithelialization None Present -Tunneling No -Undermining/Tunneling No -Circular Undermining No -Exudate Amt Small (1-33%) -Exudate Type Serosanguineous -Wound Margin Distinct, Outline Attached -Granulation Amt Small (1-33%) -Granulation Quality Red -Slough/Fibrin Yes -Necrosis Amt None Present (0 %) -Necrotic Tissue Type Adherent Slough -Structure Exposed N/A -Texture (Marianela-wound Skin Appearance) No Abnormality -Moisture (Marianela-wound Skin Appearance No Abnormality ) -Color (Marianela-wound Skin Appearance) No Abnormality -Temperature (Marianela-wound Skin No Abnormality Appearance) (Pt Warm) -Tenderness on Palpation (Marianela-wound No Skin Appearance) -Ulcer Cleansing Rinsed/ Irrigated with Saline -Foul Odor after Cleansing No -Anesthetic Used 4% Lidocaine Solution #2 left borja -Combined with other wound No -Current Size (cm) - Length 0.1 -Current Size (cm) - Width 0.1 -Current Size (cm) - Depth 0.1 -Total Square Cm 0.01 -Date of Last Picture (Recall this 04/04/18 field) -Photo Taken Yes -Epithelialization Large 67-100% -Tunneling No -Undermining/Tunneling No -Circular Undermining No -Change in Wound Grade/Stage No Query Text:If change please identify the Stage/Grade in the comment (ie. S2 G3) -Exudate Amt None Present (0 %) -Wound Margin Distinct, Outline Attached -Granulation Amt None Present (0 %) -Granulation Quality N/A -Slough/Fibrin No -Necrosis Amt None Present (0 %) -Structure Exposed N/A -Texture (Marianela-wound Skin Appearance) No Abnormality -Moisture (Marianela-wound Skin Appearance No Abnormality ) -Color (Marianela-wound Skin Appearance) Hemosiderin Staining -Temperature (Marianela-wound Skin No Abnormality Appearance) (Pt Warm) -Tenderness on Palpation (Marianela-wound No Skin Appearance) -Ulcer Cleansing Rinsed/ Irrigated with Saline -Foul Odor after Cleansing No [Edema Assessment] -Lower Limb Edema Present Yes -Left Calf (cm) 36.7 -Left Ankle (cm) 23.5 WC - Nurse 2 - General Ulcer CM Notes Start: 03/21/18 13:50 Freq: Status: Active Protocol: Activity Type Activity Date Activity User E-Sign Co-Sign Detail Recorded Client Recorded Date Recorded By Document 04/04/18 16:21 [id number] 04/04/18 16:26 04/04/18 16:21 Wound Center Nurse 2 [Procedure/Treatment] #3 LEFT MEDIAL BORJA -Time 16:21 -Correct Patient Yes -Correct Side, Site, Position Yes -Correct Procedure Yes -Procedure Performed Yes -Type of Procedure Debridement -Clinical Debridement Subcutaneous -Post Debridement Size (cm) - Length 0.8 -Post Debridement Size (cm) - Width 0.8 -Post Debridement Size (cm) - Depth 0.1 -Total Square Cm 0.64 -Wound/Ulcer Outcome Not Healed -Ulcer Cleansing Rinsed/ Irrigated with Saline -Foul Odor after Cleansing No -Bioengineered Tissue No -Topical Lidocaine (%) 4 -Bleeding Controlled with Pressure -Treatment Response Procedure Tolerated Well #2 left borja -Time 16:21 -Correct Patient Yes -Correct Side, Site, Position Yes -Correct Procedure Yes -Procedure Performed Yes -Post Debridement Size (cm) - Length 0 -Post Debridement Size (cm) - Width 0 -Post Debridement Size (cm) - Depth 0 -Total Square Cm 0 -Wound/Ulcer Outcome Healed- Epithelialized -Ulcer Cleansing Rinsed/ Irrigated with Saline -Foul Odor after Cleansing No -Bioengineered Tissue No -Bleeding Controlled with NA -Treatment Response Procedure Tolerated Well [See Physician Procedure note for Specifics] Pain Scale: 0-10 Numeric [Pain] -Is Patient Pain Free? Yes Psych/Mental Status: Normal Affect, Appropriate Debridement Note Post-Debridement Measurements/Treatment WC - Nurse 2 - General Ulcer CM Notes Start: 03/21/18 13:50 Freq: Status: Active Protocol: Activity Type Activity Date Activity User E-Sign Co-Sign Detail Recorded Client Recorded Date Recorded By Document 03/21/18 15:45 DV [id number] 03/21/18 15:51 DV Document 04/04/18 16:21 TM [id number] 04/04/18 16:26 TM 03/21/18 04/04/18 15:45 16:21 Wound Center Nurse 2 #3 LEFT MEDIAL BORJA -Time 16:21 -Correct Patient Yes -Correct Side, Site, Position Yes -Correct Procedure Yes -Procedure Performed Yes -Type of Procedure Debridement -Clinical Debridement Subcutaneous -Post Debridement Size (cm) - Length 0.8 -Post Debridement Size (cm) - Width 0.8 -Post Debridement Size (cm) - Depth 0.1 -Total Square Cm 0.64 -Wound/Ulcer Outcome Not Healed -Ulcer Cleansing Rinsed/ Irrigated with Saline -Foul Odor after Cleansing No -Bioengineered Tissue No -Topical Lidocaine (%) 4 -Bleeding Controlled with Pressure -Treatment Response Procedure Tolerated Well #2 left borja -Time 15:45 16:21 -Correct Patient Yes -Correct Side, Site, Position Yes -Correct Procedure Yes -Procedure Performed Yes -Post Debridement Size (cm) - Length 1.1 0 -Post Debridement Size (cm) - Width 0.6 0 -Post Debridement Size (cm) - Depth 0.1 0 -Total Square Cm 0.66 0 -Wound/Ulcer Outcome Not Healed Healed- Epithelialized -Ulcer Cleansing Rinsed/ Rinsed/ Irrigated with Irrigated with Saline Saline -Foul Odor after Cleansing No No -Bioengineered Tissue No No -Bleeding Controlled with NA NA -Treatment Response Procedure Procedure Tolerated Well Tolerated Well Pain Scale: 0-10 Numeric Is Patient Pain Free? Yes Yes Wound debrided: left borja Laterality: Left No debridement was completed today - due to wound healed - Additional Wound Wound debrided: left medial borja Laterality: Left Type of Debridement: Excisional debridement Anesthesia Used: 4% Lidocaine Solution Depth: Down to and including healthy tissue, in the subcutaneous layer Percentage of wound debrided: 100 Instrument Used: 5mm curette Tissue Removed: yellow slough, devitalized tissue Severity: Fat Layer Exposed Amount of bleeding with debridement: Mild Bleeding Controlled with: Pressure Patient tolerated procedure: Patient tolerated procedure well Assessment/Plan Active Problems Ulcer of left borja with fat layer exposed (Chronic) Venous ulcer of left lower extremity without varicose veins (Chronic) Schizophrenia (Chronic) COPD (chronic obstructive pulmonary disease) (Chronic) Type II diabetes mellitus (Chronic) Bilateral leg edema (Chronic) Assessment: nonhealing wound left borja. venous ulcer left borja. b/l LE edema. DM type II Plan: Ajit's wound was evaluated and debrided today. His previous testing has been reviewed and is not significant for valvular incompetence or arterial disease. Will treat his new wound with Caron dressings changed daily and advised him to wear his compression stockings. Encouraged increased protein, elevation of LE and wearing compression stockings while awake and removing at bedtime. F/U in 1 week.
== END 2018-04-05 23:59 ==
LOC: WC 15:30
PROVIDERS: Family Provider Internal Medicine; PCP Internal Medicine; Visit Provider Family Medicine
DX: E11.622 Type 2 diabetes mellitus with other skin ulcer (principal); L97.822 Non-pressure chronic ulcer of other part of left lower leg with fat layer exposed; J44.9 Chronic obstructive pulmonary disease, unspecified; I87.2 Venous insufficiency (chronic) (peripheral); R60.0 Localized edema; F20.1 Disorganized schizophrenia; Z79.899 Other long term (current) drug therapy; F17.210 Nicotine dependence, cigarettes, uncomplicated
CPT/HCPCS: 11042; 99212; G0463

== ENCOUNTER 2018-04-16 04:46 | Emergency (ER) | payer MEDICARE, SELFPAY ==
[2018-04-16 04:47] VITALS: BP 178/107; PULSE 91; RESP 18; TEMP 36.9; O2SAT 97; BMI 29.0
--- NOTE | 2018-04-16 05:14 | ED.VISSUMM ---
- ER Visit Summary Date of Service: 04/16/18 Chief Complaint: Left arm pain History of Present Illness: The patient is a 62 M presenting for evaluation secondary left arm pain. Patient has a underlying history of living in a snf and has schizophrenia that is reasonably controlled. Patient states that he has had one week of pain in his left arm. He reports that this is atraumatic, and has been a continuous type pain. Patient reports that it seems to be somewhat worse with movement. 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 Patient reports that due to that fact that is why he came to the emergency department for evaluation. He denies that there is any sort of chest pain shortness of breath lightheadedness nausea or vomiting. He does have a history of congestive heart failure COPD and diabetes. Review of systems otherwise negative. Physical Examination: Vital signs within normal limits other than hypertension 178/107. Well-nourished male no acute distress. Head normocephalic. Neck is nontender with full range of motion no reproducible pain with palpation of the neck or with axial loading of the neck. Patient has no reproducible pain with palpation of the shoulder arm and elbow forearm wrist or hand. Compartments are soft throughout. 2+ radial and ulnar pulses that are bilaterally symmetric. Normal sensation over all dermatomes, no evidence of abnormal skin changes. Remainder of physical otherwise unremarkable. Test Results: None indicated Emergency Department Course and Treatment: Patient presented with left arm pain. This does appear to be musculoskeletal. I do not believe that this is cardiac in etiology. I do not believe the workup is necessary. Patient will be started on a course of Naprosyn, he was given first dose in the ER will be discharged with a course of this. Disposition: Discharge Impression: 1. Left arm pain This note was generated with [employer] dictation software. It may contain incorrect words, spelling, and punctuation that were not noted in review of the chart prior to signing ED Disposition - Plan for ED Patient: Disposition: Home or Assisted Living Chief Complaint: Upper Extremity Injury Diagnosis: Left arm pain Instructions: ED Muscle Aching Prescriptions: Naproxen [Naprosyn] 500 mg PO BID PRN #20 tab Referrals: Dhara Taylor DO [Primary Care Provider] - 10-14 Days if not better
--- NOTE | 2018-04-16 05:18 | ED.DCSUM_ITS ---
- ER Visit Summary Date of Service: 04/16/18 Chief Complaint: Left arm pain History of Present Illness: The patient is a 62 M presenting for evaluation secondary left arm pain. Patient has a underlying history of living in a fci and has schizophrenia that is reasonably controlled. Patient states that he has had one week of pain in his left arm. He reports that this is atraumatic , and has been a continuous type pain. Patient reports that it seems to be somewhat worse with movement. 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 Patient reports that due to that fact that is why he came to the emergency department for evaluation. He denies that there is any sort of chest pain shortness of breath lightheadedness nausea or vomiting. He does have a history of congestive heart failure COPD and diabetes. Review of systems otherwise negative. Physical Examination: Vital signs within normal limits other than hypertension 178/107. Well-nourished male no acute distress. Head normocephalic. Neck is nontender with full range of motion no reproducible pain with palpation of the neck or with axial loading of the neck. Patient has no reproducible pain with palpation of the shoulder arm and elbow forearm wrist or hand. Compartments are soft throughout. 2+ radial and ulnar pulses that are bilaterally symmetric. Normal sensation over all dermatomes, no evidence of abnormal skin changes. Remainder of physical otherwise unremarkable. Test Results: None indicated Emergency Department Course and Treatment: Patient presented with left arm pain. This does appear to be musculoskeletal. I do not believe that this is cardiac in etiology. I do not believe the workup is necessary. Patient will be started on a course of Naprosyn, he was given first dose in the ER will be discharged with a course of this. Disposition: Discharge Impression: 1. Left arm pain This note was generated with [employer] dictation software. It may contain incorrect words, spelling, and punctuation that were not noted in review of the chart prior to signing ED Disposition - Plan for ED Patient: Disposition: Home or Assisted Living Chief Complaint: Upper Extremity Injury Diagnosis: Left arm pain Instructions: ED Muscle Aching Prescriptions: Naproxen [Naprosyn] 500 mg PO BID PRN #20 tab Referrals: Dhara Taylor DO [Primary Care Provider] - 10-14 Days if not better
[2018-04-16] MEDS: Naproxen 500 MG Tablet PO (05:23)
[2018-04-16 05:24] VITALS: RESP 16
== END 2018-04-16 05:25 | disposition home or self-care (01) ==
PROVIDERS: Emergency Provider Emergency Medicine; Family Provider Internal Medicine; PCP Internal Medicine
DX: M79.602 Pain in left arm (principal)

== ENCOUNTER 2018-04-16 15:48 | Observation (INO) | payer MEDICARE, SELFPAY ==
[2018-04-16] VITALS (9 sets, daily range): BP systolic 123–170; BP diastolic 72–85; PULSE 64–88; RESP 11–16; TEMP 36.5–37.1; O2SAT 96–98; BMI 27.2; BMI 27.3; BMI 28.3
[2018-04-16 16:20] LABS: Bedside Glucose 84 mg/dL (70-110)
--- NOTE | 2018-04-16 16:21 | CT_ITS ---
STUDY: CT BRAIN WITHOUT CONTRAST REASON FOR EXAM: Male, 62 years old. Slurred speech. Weakness. History of bipolar disease, schizophrenia and alcohol abuse. RADIATION DOSAGE (If Supplied By Facility): CTDIvol = ( 44.99 ) mGy, DLP = ( 812.98 ) mGycm TECHNIQUE: Transaxial CT imaging of the brain was performed without administration of intravenous contrast material. Individualized dose optimization techniques were used for this CT. COMPARISON: None. FINDINGS: Normal soft tissue structures. Normal calvarium. Normal size ventricles and extra-axial spaces for the patient's age. Normal white matter tracts of the cerebral hemispheres. Normal basal ganglia and thalami. Normal brainstem. Normal cerebellum. There is no intracranial hemorrhage. There are no findings of an acute ischemic infarction. Normal visualized paranasal sinuses. CT/Brain/Head without Contrast IMPRESSION: No evidence of acute intracranial or calvarial abnormality. If there is continued concern for acute stroke, MRI is recommended. Electronically Signed: Jackson Conde DO at 17:16 EDT Tel [phone], Service support ,
--- NOTE | 2018-04-16 16:21 | EKG12_ITS ---
Test Reason : NERUO Blood Pressure : / mmHG Vent. Rate : 077 BPM Atrial Rate : 077 BPM P-R Int : 148 ms QRS Dur : 086 ms QT Int : 380 ms P-R-T Axes : 075 054 069 degrees QTc Int : 430 ms Normal sinus rhythm Normal ECG Confirmed by MATILDE ALSTON, WILFRID ([id number]), photographic editor DANNA LIZAMA ([id number]) on 04/22/2018 2:40:45 PM Referred By: EDI Confirmed By:WILFRID CLAYTON MD
--- NOTE | 2018-04-16 16:32 | ED.DCSUM_ITS ---
- ER Visit Summary Date of Service: 04/16/18 Chief Complaint: Slurred speech History of Present Illness: The patient is a 62 M presenting with sudden onset of slurred speech. This started around 2 PM. Patient lives in a alf. His blood sugar was checked and was 120. He had no other complaints at the time. This morning he was seen in the emergency department for left arm pain. This was treated with ibuprofen. On arrival to the ED, his symptoms are starting to improve. Physical Examination: Vitals are stable. Patient is afebrile. Alert no acute distress. HEENT exam is unremarkable. Neck is supple. Lungs are clear and equal bilaterally. Heart is regular rate and rhythm. Abdomen is soft nontender nondistended. Extremities are unremarkable. Skin is warm and dry. No focal neurologic deficit. NIH 0 Remainder of exam is unremarkable. Emergency Department Course and Treatment: EKG is sinus rate is 77. Chest x- ray shows no acute process. CT head shows no acute process. CBC shows hemoglobin 12.9. Chemistries show BUN 23. INR 1.1. Troponin is negative. On reevaluation, NIH continues to be 0. Discussed with the hospitalist for admission. Disposition: Admission Impression: TIA This note was generated with [employer] dictation software. It may contain incorrect words, spelling, and punctuation that were not noted in review of the chart prior to signing ED Disposition - Plan for ED Patient: Chief Complaint: Neuro S/Sx
--- NOTE | 2018-04-16 16:40 | RAD_ITS ---
STUDY: X-RAY CHEST REASON FOR EXAM: Male, 62 years old. Confusion. TECHNIQUE: Single AP portable view of the chest. COMPARISON: April 21, 2015. FINDINGS: Telemetry wires overlie the chest. The lungs are mildly hyperexpanded. There is no new mass or infiltrate. There is no demonstrated pleural abnormality. Normal size heart. There are calcifications in the mitral annulus. Normal mediastinum and jose. Normal visualized pulmonary arteries. There is atherosclerotic calcification of the aortic arch with tortuosity. There are diffuse degenerative changes of the visualized thoracic spine. There is degenerative osteoarthritis of the bilateral shoulders. There is no demonstrated abnormality of the visualized soft tissue structures of the upper abdomen. RAD/Chest 1 View IMPRESSION: No acute cardiopulmonary disease or interval change. Electronically Signed: Jackson Conde DO at 16:55 EDT Tel [phone], Service support ,
[2018-04-16 16:41] LABS: Absolute Lymphocyte Count 1.48 X10^3/ul (0.83-4.51); Absolute Neutrophil Count 4.3 X10^3/uL (2.0-7.7); Basophil# 0.03 X10^3/uL; Basophil% 0.4 % (0-1); Eosinophil# 0.22 X10^3/uL; Eosinophils% 3.3 % (0-5); Hematocrit 38.7 % (40-54); Hemoglobin 12.9 g/dl (13.0-16.5); Lymphocyte # 1.48 X10^3/ul (4.0); Lymphocyte % 22.2 % (19-41); Mean Corp Hgb Conc 33.3 g/gl (32-36); Mean Corpuscular Hgb 30.4 pg (27.0-32.0); Mean Corpuscular Volume 91.1 fL (80-94); Mean Platelet Vol. 10.8 fl (6.2-12.0); Monocyte# 0.65 X10^3/uL; Monocyte% 9.7 % (0-10); Neutrophil # 4.27 X10^3/uL (2.7-7.7); Platelet Count 185 K/mm3 (150-450); RBC Distribution Width CV 13.1 % (11.6-14.6); Red Blood Count 4.25 M/mm3 (4.6-6.2); White Blood Count 6.7 K/mm3 (4.4-11.0)
[2018-04-16 16:44] LABS: POSITIVE COUNT NO; POSITIVE DIFFERENTIAL NO; POSITIVE MORPHOLOGY NO
[2018-04-16 16:53] LABS: International Normalized Ratio 1.1; Partial Thromboplast Time 30.6 Seconds (24.1-36.2); Prothrombin Time (Protime)PT. 14.4 SECONDS (11.7-14.9)
[2018-04-16 16:57] LABS: Anion Gap 7 (5-15); BUN 23 mg/dL (7-18); Calcium,Total 8.7 mg/dL (8.5-10.1); Chloride 107 mmol/L (98-107); Creatinine, Serum 1.21 mg/dL (0.70-1.30); EST Glomerular Filtration Rate 65 mL/min (>60); Est Glom Filt Rate - Afr Amer 78 mL/min (>60); Glucose 86 mg/dL (74-106); Potassium 4.1 mmol/L (3.5-5.1); Sodium Level 142 mmol/L (136-145)
--- NOTE | 2018-04-16 18:55 | HP.PCM_ITS ---
Problem List (1) TIA (transient ischemic attack) Status: Acute History of Present Illness Date of Admission: 04/16/18 Chief Complaint: slurred speech The patient is a 62 year old M with a significant history of COPD, schizophrenia , diabetes who was sent from a retirement because of slurred speech. He presented to the ED more than 4 hours since his symptoms started. His blood glucose was noted to be normal at the time of his symptoms. His symptoms improved and resolved whiles at emergency department. CAT scan of his head was unremarkable. Of importance this presentation is his second presentation at the ED on the same day. With his first presentation he had 1 week history of left arm pain and he was discharged on ibuprofen. Past Medical History Past Medical History (Chronic Problems): Chronic Problems Ulcer of left borja with fat layer exposed (Chronic) Venous ulcer of left lower extremity without varicose veins (Chronic) Schizophrenia (Chronic) COPD (chronic obstructive pulmonary disease) (Chronic) Right-sided heart failure (Chronic) Type II diabetes mellitus (Chronic) Bilateral leg edema (Chronic) Allergies sulfamethoxazole Allergy (Mild, Verified 03/18/18 17:12) Unknown trimethoprim Allergy (Mild, Verified 03/18/18 17:12) Unknown Penicillins [PCN] Allergy (Verified 03/21/18 20:36) Unknown Home Medications: Ambulatory Orders Medication Instructions Recorded Fluticasone/Salmeterol [Advair 1 puff INHALATION BID 02/12/15 500/50 Mcg Diskus] Metformin HCl [Glucophage] 500 mg PO TID 02/12/15 Multivitamin [Multiple Vitamins] 1 tab PO DAILY 09/23/16 Lorazepam [Ativan] 1 mg PO DAILY PRN 09/25/16 Divalproex Sodium [Depakote] 500 mg PO DAILY 03/30/17 Risperidone Microspheres 50 mg IM QMONTH 03/30/17 [Risperdal Consta] Fluticasone Propionate [Flonase 1 spray NARES DAILY #1 spray.susp 08/07/17 Allergy Relief] Benztropine [Cogentin] 1 mg PO TID 11/26/17 Albuterol Inhaler [Ventolin Hfa 2 puff INHALATION Q6H PRN PRN 03/21/18 (SP)] Doxycycline Hyclate 100 mg PO BID 03/21/18 Lisinopril 20 mg PO DAILY 03/21/18 Buspar 04/16/18 Naproxen [Naprosyn] 500 mg PO BID PRN #20 tab 04/16/18 Surgical History: tonsillectomy, - - Debridement of left foot ulcer Smoking Status: Current every day smoker - *Family History Maternal History Items: Heart Disease Paternal History Items: Diabetes Sibling History Items: Hypertension Review of Systems Constitutional: Denies: Chills, Fever, Weight Change HEENT: Denies: Head Aches, Sinus Congestion, Sinus Drainage Cardiovascular: Denies: Chest Pain, Palpitations Respiratory: Denies: Cough, Shortness of breath at rest, Sputum production Gastrointestinal: Denies: Abdominal Pain, Nausea, Vomiting Genitourinary: Denies: Dysuria Musculoskeletal: Denies: Joint Pain, Joint Tenderness Skin: Denies: Rash, Wounds Neurological: Denies: Numbness, Tingling, Focal weakness Psychiatric: Denies: Anxiety, Depression, Homicidal Ideations, Suicidal Ideations Hematologic/ Lymphatic: Denies: Easy Bruising, Easy Bleeding VTE Information - Inpt Only VTE Present on Admission: No VTE Mechan Device Prophylaxis: None VTE Pharm Prophylaxis ordered?: Yes Patient Problems: Active and Suspected Problems TIA (transient ischemic attack) (Acute) - Physical Exam General: Alert, - - Oriented to place. Not oriented to time. HEENT: Atraumatic Neck: Supple, No JVD, Negative Carotid Bruits Lungs: Wheezes Cardiovascular: Regular rate, No murmurs Abdomen: Bowel Sounds Present, Soft, Non Tender Extremities: No edema, Capillary Refill Less than 3 Seconds Skin: No rashes, No breakdown Musculoskeletal: No Tenderness to Palpation of Joints or Extremities Neurological: Cranial nerves II-XII grossly intact Psych/Mental Status: - - Some confused conversations Vital Signs Temp Pulse Resp BP Pulse Ox 98.3 F 76 16 149/81 H 97 04/16/18 15:50 04/16/18 18:00 04/16/18 18:00 04/16/18 18:00 04/16/18 18:00 Assessment/Plan All Active Problems Left arm pain (Acute) TIA (transient ischemic attack) (Acute) Cellulitis and abscess of leg (Acute) The patient is a 62 year old M with a significant history of HTN, COPD, schizophrenia, diabetes who was sent from a retirement because of slurred speech which resolved whiles at the emergency department. Probable Transient ischemic attack. CT head unremarkable MRI/MRA without contrast of brain and head ordered MRI/MRA of neck with and without contrast ordered Frequent stroke assessment with NIH scale. Aspirin 325?1 Aspirin 81 mg daily High intensity statin ordered PT/OT/ST therapy. Telemetry monitoring Passed dysphagia diet. okay to start regular food. Maintain permissive hypertension. Treat if systolic blood pressure more than 220 /120 COPD Scheduled DuoNeb Advair ordered. On home profile As needed albuterol Tobacco abuse NicoDerm patch. HTN Permissive hypertension as above. Lisinopril on unverified home medication. Will not order at this time. Schizophrenia He may be on some home medications for schizophrenia.However this could not be ordered because it could not be verified. Moreover will avoid any sedative medications that would confound his present condition. Miscellaneous: Home medication not verified because patient is unable to provide appropriate information. Unable to reach emergency photoresist contact printer. Case management consult. DVT prophylaxis subcutaneous heparin. Code Visit Inpatient E&M: 26561 Init Hosp L2
[2018-04-16 20:21] LABS: Alcohol, Blood (Medical)-Serum < 3.0 mg/dL
--- NOTE | 2018-04-16 20:29 | NURSING ---
Pt NIH performed - patient very easily distracted - Hard to get to follow some commands. Pt talks in circles and talks about things completely unrelated to NIH exam
[2018-04-16] MEDS: Heparin Injection (Vial) 5,000 UNIT/ML VIAL 5000 UNIT SC (21:38)
[2018-04-16] MEDS: Aspirin 325 MG Tablet PO (21:40)
--- NOTE | 2018-04-16 22:00 | NURSING ---
Came into patients room - resting comfortably. Checked vitals - patient did not awaken, but did lift arm and open mouth for temp. Scanned meds and tried to rouse patient. He would awake to sternal rub, but nothing else and would stare blankly. Then responded that it hurt. Would continue to rest, but when told to lift his arm he would. Called seo assistant Hannah into room - patients response continued. Paged MD Javierelf at 2145 and asked for Samuel ALSTON to call. Samuel ALSTON called - explained the circumstance and came to the floor at 2155. Patient immediately roused for and was A/OX2. Patient responded to all questions and was administered HS meds. Patient was very talkative after. No new orders.
[2018-04-16 22:21] LABS: Bedside Glucose 80 mg/dL (70-110)
[2018-04-17 02:59] VITALS: BP 156/77; PULSE 61; RESP 16; TEMP 36.6; O2SAT 94
[2018-04-17 03:00] VITALS: PULSE 64
[2018-04-17] MEDS: Heparin Injection (Vial) 5,000 UNIT/ML VIAL 5000 UNIT SC (05:16)
[2018-04-17 06:58] VITALS: BP 154/70; PULSE 73; RESP 16; TEMP 36.5; O2SAT 95
[2018-04-17 06:59] VITALS: PULSE 75
[2018-04-17 07:06] LABS: Bedside Glucose 98 mg/dL (70-110)
[2018-04-17 07:33] VITALS: PULSE 85; RESP 16
[2018-04-17] MEDS: Budesonide Respules 0.5 MG/2 ML AMPUL.NEB. INHALATION (07:33)
[2018-04-17] MEDS: Ipratropium/Albuterol Sulfate 3 ML AMPUL.NEB INHALATION (07:33)
[2018-04-17 08:00] LABS: Cholesterol 114 mg/dL (200); High Density Lipoprotein 40 mg/dL; Triglycerides 107 mg/dL; Very Low Density Lipoprotein 21 mg/dL (5-40)
--- NOTE | 2018-04-17 08:55 | CASEMGMT ---
REI called [facility] and patient is a client and he is in one of their group homes. His case sealer is Kirill Mccoy. He was unavailable so REI left a message for the director of Case Management at [facility]. REI called [facility] and they will fax patient's med list to PCU. Per charger tester patient is refusing his MRI and wants to leave. Ainsley RENO MSW
--- NOTE | 2018-04-17 09:34 | NURSING ---
patient refused mri once down at area now back in room reading paper. aware
--- NOTE | 2018-04-17 09:52 | PCM.DC ---
- Discharge Diagnoses Current Active Problems: Current Active and Chronic Problems TIA (transient ischemic attack) (Acute) You will use the following diet at home:: No restrictions Your food should be the consistency of: Regular Your liquids should be the consistency of: Regular/Thin Discharge Activity: Return to Normal Activity Weight Bearing Status: Full weight bearing Allergies/Adverse Reactions: Allergies sulfamethoxazole Allergy (Mild, Verified 03/18/18 17:12) Unknown trimethoprim Allergy (Mild, Verified 03/18/18 17:12) Unknown Penicillins [PCN] Allergy (Verified 03/21/18 20:36) Unknown Medications to take at Discharge Fluticasone/Salmeterol [Advair 500/50 Mcg Diskus] 1 puff INHALATION BID 02/12/15 Metformin HCl [Glucophage] 500 mg PO TID 02/12/15 Multivitamin [Multiple Vitamins] 1 tab PO DAILY 09/23/16 Lorazepam [Ativan] 1 mg PO DAILY PRN 09/25/16 Divalproex Sodium [Depakote] 500 mg PO DAILY 03/30/17 Risperidone Microspheres [Risperdal Consta] 50 mg IM QMONTH 03/30/17 Fluticasone Propionate [Flonase Allergy Relief] 1 spray NARES DAILY #1 spray.susp 08/07/17 Benztropine [Cogentin] 1 mg PO TID 11/26/17 Albuterol Inhaler [Ventolin Hfa] 2 puff INHALATION Q6H PRN PRN 03/21/18 Doxycycline Hyclate 100 mg PO BID 03/21/18 Lisinopril 20 mg PO DAILY 03/21/18 Buspar 04/16/18 Naproxen [Naprosyn] 500 mg PO BID PRN #20 tab 04/16/18 Primary Care Physician: Dhara Taylor DO [Primary Care Provider] - Please follow up with your Primary Care Physician in: in 1-2 weeks Test Results: Test results from this visit will be discussed in further detail at your follow-up appointment, if applicable.
--- NOTE | 2018-04-17 10:01 | CASEMGMT ---
Physician saw patient and he is going to [facility] the [facility] today. SW spoke with patient and he will need transportation as he does not have any taxi passes with him. REI called [facility] van and they can take him home as long as he can be at the main entrance at 10:30a. REI notified RN and custom bookbinder. Plan: d/c back to prison. Ainsley RENO MSW
[2018-04-17 10:17] VITALS: BP 152/79; PULSE 84; RESP 15; TEMP 36.6; O2SAT 94
[2018-04-17 10:25] VITALS: BMI 28.3
--- NOTE | 2018-04-17 10:45 | NURSING ---
Called Darek Barlow and let him know dc of Ian and no meds were given today. This nurse does not have assisted number to notify them. Mr. Barlow states he will let assisted know
--- NOTE | 2018-04-17 15:47 | PCM.DC.SUM ---
Discharge Date and Diagnosis Date of Admission: 04/16/18 Date of Discharge: 04/17/18 - Primary Discharge Diagnosis #1 slurred [id number] unclear #2 schizophrenia #3 type 2 diabetes #4 chronic obstructive pulmonary disease - Secondary Discharge Diagnosis Chronic Problems Ulcer of left borja with fat layer exposed (Chronic) Venous ulcer of left lower extremity without varicose veins (Chronic) Schizophrenia (Chronic) COPD (chronic obstructive pulmonary disease) (Chronic) Right-sided heart failure (Chronic) Type II diabetes mellitus (Chronic) Bilateral leg edema (Chronic) Hospital Course and Treatment Operations: None, - - Debridement Procedures: None Summary of Care Provided: The patient is a 62 year old M seen in the emergency room at [facility] after being sent in from a skilled nursing at which she resides due to a sudden onset of slurred speech. Evaluation in the emergency room found the patient's NIH stroke scale to be 0, workup in the emergency room included a head CT which showed no acute process, BUN was 23, hemoglobin was 12.9. Patient was placed and observation status on PCU, patient was observed on telemetry, the following morning, patient refused to have an MRI of the brain as well as an MRA of the head and neck performed, it was felt he was stable for discharge back to the skilled nursing. The exact cause of the episode of slurred speech was unknown. On 04/17/18, patient was seen and examined and felt to be in stable condition for discharge back to his skilled nursing Discharge Activity: Return to Normal Activity Weight Bearing Status: Full weight bearing Home Medications: Medications to take at Discharge Fluticasone/Salmeterol [Advair 500/50 Mcg Diskus] 1 puff INHALATION BID 02/12/15 Metformin HCl [Glucophage] 500 mg PO TID 02/12/15 Multivitamin [Multiple Vitamins] 1 tab PO DAILY 09/23/16 Lorazepam [Ativan] 1 mg PO DAILY PRN 09/25/16 Divalproex Sodium [Depakote] 500 mg PO DAILY 03/30/17 Risperidone Microspheres [Risperdal Consta] 50 mg IM QMONTH 03/30/17 Fluticasone Propionate [Flonase Allergy Relief] 1 spray NARES DAILY #1 spray.susp 08/07/17 Benztropine [Cogentin] 1 mg PO TID 11/26/17 Albuterol Inhaler [Ventolin Hfa] 2 puff INHALATION Q6H PRN PRN 03/21/18 Doxycycline Hyclate 100 mg PO BID 03/21/18 Lisinopril 20 mg PO DAILY 03/21/18 Buspar 04/16/18 Naproxen [Naprosyn] 500 mg PO BID PRN #20 tab 04/16/18 Primary Care Physician: Dhara Taylor DO [Primary Care Provider] - Please follow up with your Primary Care Physician in: in 1-2 weeks Disposition: Home Minutes spent on discharge:: 25 Patient Condition:: Stable Medical Necessity - Tobacco Use Smoking Status: Current every day smoker Meaningful Use Info Meaningful Use Diagnoses (Choose all that apply): None applicable Code Visit OBSV E&M: 75587 Observation care discharge
--- NOTE | 2018-04-17 15:51 | DS.PCM_ITS ---
Discharge Date and Diagnosis Date of Admission: 04/16/18 Date of Discharge: 04/17/18 - Primary Discharge Diagnosis #1 slurred zxzveq-[id number]-tkyrsbhc unclear #2 schizophrenia #3 type 2 diabetes #4 chronic obstructive pulmonary disease - Secondary Discharge Diagnosis Chronic Problems Ulcer of left borja with fat layer exposed (Chronic) Venous ulcer of left lower extremity without varicose veins (Chronic) Schizophrenia (Chronic) COPD (chronic obstructive pulmonary disease) (Chronic) Right-sided heart failure (Chronic) Type II diabetes mellitus (Chronic) Bilateral leg edema (Chronic) Hospital Course and Treatment Operations: None, - - Debridement Procedures: None Summary of Care Provided: The patient is a 62 year old M seen in the emergency room at [facility] after being [facility] in from a [facility] which [facility] due to a sudden onset of slurred speech. Evaluation in the emergency room found the patient's NIH stroke scale to be 0, workup in the emergency room included a head CT which showed no acute process, BUN was 23, hemoglobin was 12.9. Patient was placed and observation status on PCU, patient was observed on telemetry, the following morning, patient refused to have an MRI of the brain as well as an MRA of the head and neck performed, it was felt he was stable for discharge back to the jail. The exact cause of the episode of slurred speech was unknown. On 04/17/18, patient was seen and examined and felt to be in stable condition for discharge back to his jail Discharge Activity: Return to Normal Activity Weight Bearing Status: Full weight bearing Home Medications: Medications to take at Discharge Fluticasone/Salmeterol [Advair 500/50 Mcg Diskus] 1 puff INHALATION BID Metformin HCl [Glucophage] 500 mg PO TID 02/12/15 Multivitamin [Multiple Vitamins] 1 tab PO DAILY 09/23/16 Lorazepam [Ativan] 1 mg PO DAILY PRN 09/25/16 Divalproex Sodium [Depakote] 500 mg PO DAILY 03/30/17 Risperidone Microspheres [Risperdal Consta] 50 mg IM QMONTH 03/30/17 Fluticasone Propionate [Flonase Allergy Relief] 1 spray NARES DAILY #1 spray.susp 08/07/17 Benztropine [Cogentin] 1 mg PO TID 11/26/17 Albuterol Inhaler [Ventolin Hfa] 2 puff INHALATION Q6H PRN PRN 03/21/18 Doxycycline Hyclate 100 mg PO BID 03/21/18 Lisinopril 20 mg PO DAILY 03/21/18 Buspar 04/16/18 Naproxen [Naprosyn] 500 mg PO BID PRN #20 tab 04/16/18 Primary Care Physician: Dhara Taylor DO [Primary Care Provider] - Please follow up with your Primary Care Physician in: in 1-2 weeks Disposition: Home Minutes spent on discharge:: 25 Patient Condition:: Stable Medical Necessity - Tobacco Use Smoking Status: Current every day smoker Meaningful Use Info Meaningful Use Diagnoses (Choose all that apply): None applicable Code Visit OBSV E&M: 66644 Observation care discharge
== END 2018-04-17 09:52 | disposition home or self-care (01) ==
LOC: ED 18:10 → PCU 18:38
PROVIDERS: Admitting Provider Hospitalist; Emergency Provider Emergency Medicine; Family Provider Internal Medicine; PCP Internal Medicine; Visit Provider Internal Medicine
DX: R47.81 Slurred speech (principal); M79.602 Pain in left arm; E11.9 Type 2 diabetes mellitus without complications; I50.9 Heart failure, unspecified; J44.9 Chronic obstructive pulmonary disease, unspecified; Z79.51 Long term (current) use of inhaled steroids; Z79.899 Other long term (current) drug therapy; Z79.84 Long term (current) use of oral hypoglycemic drugs; F20.9 Schizophrenia, unspecified; E11.622 Type 2 diabetes mellitus with other skin ulcer; L97.822 Non-pressure chronic ulcer of other part of left lower leg with fat layer exposed; F17.200 Nicotine dependence, unspecified, uncomplicated
CPT/HCPCS: 36415; 70450; 71045; 80048; 80061; 80320; 82962; 84484; 85025; 85610; 85730; 92523; 93005; 94640; 96372; 99218; 99282; 99285; J7030; A4216; G0378; G0480

== ENCOUNTER 2018-04-18 12:30 | Outpatient (RCR) | payer MEDICARE, SELFPAY ==
[2018-04-06 01:12] VITALS: BP 126/76; PULSE 94; RESP 18; TEMP 36.7
[2018-04-11 14:43] VITALS: BP 136/78; PULSE 86; RESP 16; TEMP 36.2
--- NOTE | 2018-04-11 20:19 | PCM.WC.PN ---
(1) Ulcer of left borja with fat layer exposed Status: Chronic Current Visit: Yes Code(s): L97.822 - Non-pressure chronic ulcer of other part of left lower leg with fat layer exposed (2) Venous ulcer of left lower extremity without varicose veins Status: Chronic Current Visit: Yes Code(s): I87.2 - Venous insufficiency (chronic) (peripheral); L97.929 - Non-pressure chronic ulcer of unspecified part of left lower leg with unspecified severity (3) Schizophrenia Status: Chronic Current Visit: Yes Qualifiers: Schizophrenia type: unspecified Qualified Code(s): F20.9 - Schizophrenia, unspecified Code(s): F20.9 - Schizophrenia, unspecified (4) Bilateral leg edema Status: Chronic Current Visit: Yes Code(s): R60.0 - Localized edema Type of Wound Date of Service: 04/11/18 Chief Complaint: Wound to the left borja History of Wound: Ajit presents to the wound center for treatment of a nonhealing wound of his left borja that he has had for several weeks. He thinks he may have scratched it in brambles. He has edema to LE b/l and has been treated here in the past for similar wounds. He had arterial studies in 2013 which did not show any significant arterial disease. He had venous studies done in 11/2017 which did not show DVT or incompetent veins in his LE. Dr. Taylor treated him with 2 different antibiotics and he has been applying topical ointment and gauze to the wound but it was not improving. He did start wearing compression stockings in the last day or two. He denies pain, fever, chills, odor or drainage. He lives in a correction and cares for himself with supervision from staff. He is accompanied today by his piano case maker, Isaac. Progress of Wound: Ajit's wound is improved. He is tolerating Caron dressings. He is wearing compression faithfully. Denies increased drainage or erythema or pain. - Physical Exam Vital Signs Temp Pulse Resp BP 97.1 F L 86 16 136/78 H 04/11/18 14:43 04/11/18 14:43 04/11/18 14:43 04/11/18 14:43 General: Alert, Oriented x3, Cooperative, No apparent distress HEENT: Atraumatic, Normocephalic Oral: Moist Mucosa Skin: Ulcer/ Wound Wound Measurements and Assessment WC - Nurse 1 - General Ulcer Measurement Start: 04/11/18 14:42 Freq: Status: Active Protocol: Activity Type Activity Date Activity User E-Sign Co-Sign Detail Recorded Client Recorded Date Recorded By Document 04/11/18 14:43 [id number] 04/11/18 14:48 04/11/18 14:43 Wound Center Nurse 1 [Ulcer Assessment] #3 LEFT MEDIAL BORJA -Combined with other wound No -Current Size (cm) - Length 0.7 -Current Size (cm) - Width 0.4 -Current Size (cm) - Depth 0 -Total Square Cm 0.28 -Photo Taken No -Epithelialization Large 67-100% -Tunneling No -Undermining/Tunneling No -Circular Undermining No -Exudate Amt None Present (0 %) -Wound Margin Thickened -Granulation Amt None Present (0 %) -Granulation Quality N/A Red -Necrosis Amt None Present (0 %) -Structure Exposed None/Limited to Skin Breakdown -Texture (Marianela-wound Skin Appearance) Scarring -Moisture (Marianela-wound Skin Appearance No Abnormality ) Assessed -Color (Marianela-wound Skin Appearance) Erythema -Temperature (Marianela-wound Skin No Abnormality Appearance) (Pt Warm) -Tenderness on Palpation (Marianela-wound No Skin Appearance) -Ulcer Cleansing Rinsed/ Irrigated with Saline -Foul Odor after Cleansing No -Anesthetic Used 4% Lidocaine Solution [Edema Assessment] -Lower Limb Edema Present No -Left Calf (cm) 35.5 -Left Ankle (cm) 25.5 WC - Nurse 2 - General Ulcer CM Notes Start: 04/11/18 14:42 Freq: Status: Active Protocol: Activity Type Activity Date Activity User E-Sign Co-Sign Detail Recorded Client Recorded Date Recorded By Document 04/11/18 15:39 [id number] 04/11/18 15:43 04/11/18 15:39 Wound Center Nurse 2 [Procedure/Treatment] #3 LEFT MEDIAL BORJA -Time 15:39 -Correct Patient Yes -Correct Side, Site, Position Yes -Correct Procedure Yes -Procedure Performed Yes -Type of Procedure Debridement -Clinical Debridement Subcutaneous -Post Debridement Size (cm) - Length 0.6 -Post Debridement Size (cm) - Width 0.4 -Post Debridement Size (cm) - Depth 0.1 -Total Square Cm 0.24 -Wound/Ulcer Outcome Not Healed -Ulcer Cleansing Rinsed/ Irrigated with Saline -Foul Odor after Cleansing No -Bioengineered Tissue No -Topical Lidocaine (%) 4 -Lidocaine (ml) 5 -Bleeding Controlled with NA -Treatment Response Procedure Tolerated Well [See Physician Procedure note for Specifics] Pain Scale: 0-10 Numeric [Pain] -Is Patient Pain Free? Yes Psych/Mental Status: Normal Affect, Appropriate Debridement Note Post-Debridement Measurements/Treatment WC - Nurse 2 - General Ulcer CM Notes Start: 04/11/18 14:42 Freq: Status: Active Protocol: Activity Type Activity Date Activity User E-Sign Co-Sign Detail Recorded Client Recorded Date Recorded By Document 04/11/18 15:39 [email or web address] [id number] 04/11/18 15:43 FIDENCIO 04/11/18 15:39 Wound Center Nurse 2 #3 LEFT MEDIAL BORJA -Time 15:39 -Correct Patient Yes -Correct Side, Site, Position Yes -Correct Procedure Yes -Procedure Performed Yes -Type of Procedure Debridement -Clinical Debridement Subcutaneous -Post Debridement Size (cm) - Length 0.6 -Post Debridement Size (cm) - Width 0.4 -Post Debridement Size (cm) - Depth 0.1 -Total Square Cm 0.24 -Wound/Ulcer Outcome Not Healed -Ulcer Cleansing Rinsed/ Irrigated with Saline -Foul Odor after Cleansing No -Bioengineered Tissue No -Topical Lidocaine (%) 4 -Lidocaine (ml) 5 -Bleeding Controlled with NA -Treatment Response Procedure Tolerated Well Pain Scale: 0-10 Numeric Is Patient Pain Free? Yes Wound debrided: left medial borja Laterality: Left Type of Debridement: Excisional debridement Anesthesia Used: 4% Lidocaine Solution Depth: Down to and including healthy tissue, in the subcutaneous layer Percentage of wound debrided: 100 Instrument Used: 5mm curette Tissue Removed: yellow slough, devitalized tissue Severity: Fat Layer Exposed Amount of bleeding with debridement: Mild Bleeding Controlled with: Compression and gauze Patient tolerated procedure well Assessment/Plan Active Problems Ulcer of left borja with fat layer exposed (Chronic) Venous ulcer of left lower extremity without varicose veins (Chronic) Schizophrenia (Chronic) Bilateral leg edema (Chronic) Assessment: nonhealing wound left borja. venous ulcer left borja. b/l LE edema. DM type II Plan: Ajit's wound was evaluated and debrided today. His previous testing has been reviewed and is not significant for valvular incompetence or arterial disease. Will continue to treat with Caron dressings changed daily and advised him to wear his compression stockings. Encouraged increased protein, elevation of LE and wearing compression stockings while awake and removing at bedtime. F/U in 1 week.
--- NOTE | 2018-04-11 20:22 | PN.PCM_ITS ---
(1) Ulcer of left borja with fat layer exposed Status: Chronic Current Visit: Yes Code(s): L97.822 - Non-pressure chronic ulcer of other part of left lower leg with fat layer exposed (2) Venous ulcer of left lower extremity without varicose veins Status: Chronic Current Visit: Yes Code(s): I87.2 - Venous insufficiency ( chronic) (peripheral); L97.929 - Non-pressure chronic ulcer of unspecified part of left lower leg with unspecified severity (3) Schizophrenia Status: Chronic Current Visit: Yes Qualifiers: Schizophrenia type: unspecified Qualified Code(s): F20.9 - Schizophrenia, unspecified Code(s): F20.9 - Schizophrenia, unspecified (4) Bilateral leg edema Status: Chronic Current Visit: Yes Code(s): R60.0 - Localized edema Type of Wound Date of Service: 04/11/18 Chief Complaint: Wound to the left borja History of Wound: Ajit presents to the wound center for treatment of a nonhealing wound of his left borja that he has had for several weeks. He thinks he may have scratched it in brambles. He has edema to LE b/l and has been treated here in the past for similar wounds. He had arterial studies in 2013 which did not show any significant arterial disease. He had venous studies done in 11/2017 which did not show DVT or incompetent veins in his LE. Dr. Taylor treated him with 2 different antibiotics and he has been applying topical ointment and gauze to the wound but it was not improving. He did start wearing compression stockings in the last day or two. He denies pain, fever, chills, odor or drainage. He lives in a detention and cares for himself with supervision from staff. He is accompanied today by his family caseworker, Iasac. Progress of Wound: Ajit's wound is improved. He is tolerating Caron dressings. He is wearing compression faithfully. Denies increased drainage or erythema or pain. - Physical Exam Vital Signs Temp Pulse Resp BP 97.1 F L 86 16 136/78 H 04/11/18 14:43 04/11/18 14:43 04/11/18 14:43 04/11/18 14:43 General: Alert, Oriented x3, Cooperative, No apparent distress HEENT: Atraumatic, Normocephalic Oral: Moist Mucosa Skin: Ulcer/ Wound Wound Measurements and Assessment WC - Nurse 1 - General Ulcer Measurement Start: 04/11/18 14:42 Freq: Status: Active Protocol: Activity Type Activity Date Activity User E-Sign Co-Sign Detail Recorded Client Recorded Date Recorded By Document 04/11/18 14:43 [id number] 04/11/18 14:48 04/11/18 14:43 Wound Center Nurse 1 [Ulcer Assessment] #3 LEFT MEDIAL BORJA -Combined with other wound No -Current Size (cm) - Length 0.7 -Current Size (cm) - Width 0.4 -Current Size (cm) - Depth 0 -Total Square Cm 0.28 -Photo Taken No -Epithelialization Large 67-100% -Tunneling No -Undermining/Tunneling No -Circular Undermining No -Exudate Amt None Present (0 %) -Wound Margin Thickened -Granulation Amt None Present (0 %) -Granulation Quality N/A Red -Necrosis Amt None Present (0 %) -Structure Exposed None/Limited to Skin Breakdown -Texture (Marianela-wound Skin Appearance) Scarring -Moisture (Marianela-wound Skin Appearance No Abnormality ) Assessed -Color (Marianela-wound Skin Appearance) Erythema -Temperature (Marianela-wound Skin No Abnormality Appearance) (Pt Warm) -Tenderness on Palpation (Marianela-wound No Skin Appearance) -Ulcer Cleansing Rinsed/ Irrigated with Saline -Foul Odor after Cleansing No -Anesthetic Used 4% Lidocaine Solution [Edema Assessment] -Lower Limb Edema Present No -Left Calf (cm) 35.5 -Left Ankle (cm) 25.5 WC - Nurse 2 - General Ulcer CM Notes Start: 04/11/18 14:42 Freq: Status: Active Protocol: Activity Type Activity Date Activity User E-Sign Co-Sign Detail Recorded Client Recorded Date Recorded By Document 04/11/18 15:39 [id number] 04/11/18 15:43 04/11/18 15:39 Wound Center Nurse 2 [Procedure/Treatment] #3 LEFT MEDIAL BORJA -Time 15:39 -Correct Patient Yes -Correct Side, Site, Position Yes -Correct Procedure Yes -Procedure Performed Yes -Type of Procedure Debridement -Clinical Debridement Subcutaneous -Post Debridement Size (cm) - Length 0.6 -Post Debridement Size (cm) - Width 0.4 -Post Debridement Size (cm) - Depth 0.1 -Total Square Cm 0.24 -Wound/Ulcer Outcome Not Healed -Ulcer Cleansing Rinsed/ Irrigated with Saline -Foul Odor after Cleansing No -Bioengineered Tissue No -Topical Lidocaine (%) 4 -Lidocaine (ml) 5 -Bleeding Controlled with NA -Treatment Response Procedure Tolerated Well [See Physician Procedure note for Specifics] Pain Scale: 0-10 Numeric [Pain] -Is Patient Pain Free? Yes Psych/Mental Status: Normal Affect, Appropriate Debridement Note Post-Debridement Measurements/Treatment WC - Nurse 2 - General Ulcer CM Notes Start: 04/11/18 14:42 Freq: Status: Active Protocol: Activity Type Activity Date Activity User E-Sign Co-Sign Detail Recorded Client Recorded Date Recorded By Document 04/11/18 15:39 [email or web address] [id number] 04/11/18 15:43 FIDENCIO 04/11/18 15:39 Wound Center Nurse 2 #3 LEFT MEDIAL BORJA -Time 15:39 -Correct Patient Yes -Correct Side, Site, Position Yes -Correct Procedure Yes -Procedure Performed Yes -Type of Procedure Debridement -Clinical Debridement Subcutaneous -Post Debridement Size (cm) - Length 0.6 -Post Debridement Size (cm) - Width 0.4 -Post Debridement Size (cm) - Depth 0.1 -Total Square Cm 0.24 -Wound/Ulcer Outcome Not Healed -Ulcer Cleansing Rinsed/ Irrigated with Saline -Foul Odor after Cleansing No -Bioengineered Tissue No -Topical Lidocaine (%) 4 -Lidocaine (ml) 5 -Bleeding Controlled with NA -Treatment Response Procedure Tolerated Well Pain Scale: 0-10 Numeric Is Patient Pain Free? Yes Wound debrided: left medial borja Laterality: Left Type of Debridement: Excisional debridement Anesthesia Used: 4% Lidocaine Solution Depth: Down to and including healthy tissue, in the subcutaneous layer Percentage of wound debrided: 100 Instrument Used: 5mm curette Tissue Removed: yellow slough, devitalized tissue Severity: Fat Layer Exposed Amount of bleeding with debridement: Mild Bleeding Controlled with: Compression and gauze Patient tolerated procedure well Assessment/Plan Active Problems Ulcer of left borja with fat layer exposed (Chronic) Venous ulcer of left lower extremity without varicose veins (Chronic) Schizophrenia (Chronic) Bilateral leg edema (Chronic) Assessment: nonhealing wound left borja. venous ulcer left borja. b/l LE edema. DM type II Plan: Ajit's wound was evaluated and debrided today. His previous testing has been reviewed and is not significant for valvular incompetence or arterial disease. Will continue to treat with Caron dressings changed daily and advised him to wear his compression stockings. Encouraged increased protein, elevation of LE and wearing compression stockings while awake and removing at bedtime. F/ U in 1 week.
[2018-04-18 12:49] VITALS: BP 127/79; PULSE 104; RESP 18; TEMP 36.3
--- NOTE | 2018-04-18 17:50 | PCM.WC.PN ---
(1) Ulcer of left borja with fat layer exposed Status: Resolved Current Visit: No Code(s): L97.822 - Non-pressure chronic ulcer of other part of left lower leg with fat layer exposed (2) Venous ulcer of left lower extremity without varicose veins Status: Chronic Current Visit: Yes Code(s): I87.2 - Venous insufficiency (chronic) (peripheral); L97.929 - Non-pressure chronic ulcer of unspecified part of left lower leg with unspecified severity (3) Schizophrenia Status: Chronic Current Visit: Yes Qualifiers: Schizophrenia type: unspecified Qualified Code(s): F20.9 - Schizophrenia, unspecified Code(s): F20.9 - Schizophrenia, unspecified (4) Bilateral leg edema Status: Chronic Current Visit: Yes Code(s): R60.0 - Localized edema Type of Wound Date of Service: 04/18/18 Chief Complaint: Wound to the left borja History of Wound: Ajit presents to the wound center for treatment of a nonhealing wound of his left borja that he has had for several weeks. He thinks he may have scratched it in brambles. He has edema to LE b/l and has been treated here in the past for similar wounds. He had arterial studies in 2013 which did not show any significant arterial disease. He had venous studies done in 11/2017 which did not show DVT or incompetent veins in his LE. Dr. Taylor treated him with 2 different antibiotics and he has been applying topical ointment and gauze to the wound but it was not improving. He did start wearing compression stockings in the last day or two. He denies pain, fever, chills, odor or drainage. He lives in a [place] [facility] and cares for himself with supervision from staff. He is accompanied today by his porter sample case, Isaac. Progress of Wound: Ajit's wound is healed. He is wearing compression faithfully. Denies increased drainage or erythema or pain. - Physical Exam Vital Signs Temp Pulse Resp BP 97.4 F L 104 H 18 127/79 H 04/18/18 12:49 04/18/18 12:49 04/18/18 12:49 04/18/18 12:49 General: Alert, Oriented x3, Cooperative, No apparent distress HEENT: Atraumatic, Normocephalic Oral: Moist Mucosa Skin: Ulcer/ Wound Wound Measurements and Assessment WC - Nurse 1 - General Ulcer Measurement Start: 04/11/18 14:42 Freq: Status: Active Protocol: Activity Type Activity Date Activity User E-Sign Co-Sign Detail Recorded Client Recorded Date Recorded By Document 04/18/18 12:49 DL [id number] 04/18/18 12:56 DL 04/18/18 12:49 Wound Center Nurse 1 [Ulcer Assessment] #3 LEFT MEDIAL BORJA -Current Size (cm) - Length 0 -Current Size (cm) - Width 0 -Current Size (cm) - Depth 0 -Total Square Cm 0 -Photo Taken Yes -Wound Margin Flat & Intact -Granulation Amt Large (67-100%) -Granulation Quality [place] -Necrosis Amt None Present (0 %) -Structure Exposed N/A -Texture (Marianela-wound Skin Appearance) Scarring -Moisture (Marianela-wound Skin Appearance No Abnormality ) -Color (Marianela-wound Skin Appearance) Hemosiderin Staining -Temperature (Marianela-wound Skin No Abnormality Appearance) (Pt Warm) -Ulcer Cleansing Wound Cleanser -Foul Odor after Cleansing No -Anesthetic Used 4% Lidocaine Solution [Edema Assessment] -Left Calf (cm) 35 -Left Ankle (cm) 22.9 WC - Nurse 2 - General Ulcer CM Notes Start: 04/11/18 14:42 Freq: Status: Active Protocol: Activity Type Activity Date Activity User E-Sign Co-Sign Detail Recorded Client Recorded Date Recorded By Document 04/18/18 13:13 [id number] 04/18/18 13:15 04/18/18 13:13 Wound Center Nurse 2 [Procedure/Treatment] #3 LEFT MEDIAL BORJA -Time 13:13 -Correct Patient Yes -Correct Side, Site, Position Yes -Correct Procedure Yes -Procedure Performed Yes -Post Debridement Size (cm) - Length 0 -Post Debridement Size (cm) - Width 0 -Post Debridement Size (cm) - Depth 0 -Total Square Cm 0 -Wound/Ulcer Outcome Healed- Epithelialized -Ulcer Cleansing Rinsed/ Irrigated with Saline -Foul Odor after Cleansing No -Bioengineered Tissue No -Bleeding Controlled with NA -Treatment Response Procedure Tolerated Well [See Physician Procedure note for Specifics] Pain Scale: 0-10 Numeric [Pain] -Is Patient Pain Free? Yes Psych/Mental Status: Normal Affect, Appropriate Debridement Note Post-Debridement Measurements/Treatment WC - Nurse 2 - General Ulcer CM Notes Start: 04/11/18 14:42 Freq: Status: Active Protocol: Activity Type Activity Date Activity User E-Sign Co-Sign Detail Recorded Client Recorded Date Recorded By Document 04/11/18 15:39 [id number] 04/11/18 15:43 Document 04/18/18 13:13 TM [id number] 04/18/18 13:15 TM 04/11/18 04/18/18 15:39 13:13 Wound Center Nurse 2 #3 LEFT MEDIAL BORJA -Time 15:39 13:13 -Correct Patient Yes Yes -Correct Side, Site, Position Yes Yes -Correct Procedure Yes Yes -Procedure Performed Yes Yes -Type of Procedure Debridement -Clinical Debridement Subcutaneous -Post Debridement Size (cm) - Length 0.6 0 -Post Debridement Size (cm) - Width 0.4 0 -Post Debridement Size (cm) - Depth 0.1 0 -Total Square Cm 0.24 0 -Wound/Ulcer Outcome Not Healed Healed- Epithelialized -Ulcer Cleansing Rinsed/ Rinsed/ Irrigated with Irrigated with Saline Saline -Foul Odor after Cleansing No No -Bioengineered Tissue No No -Topical Lidocaine (%) 4 -Lidocaine (ml) 5 -Bleeding Controlled with NA NA -Treatment Response Procedure Procedure Tolerated Well Tolerated Well Pain Scale: 0-10 Numeric Is Patient Pain Free? Yes Yes Wound debrided: left medial borja Laterality: Left No debridement was completed today - wound is healed Assessment/Plan Active Problems Venous ulcer of left lower extremity without varicose veins (Chronic) Schizophrenia (Chronic) Bilateral leg edema (Chronic) Assessment: nonhealing wound left borja. venous ulcer left borja. b/l LE edema. DM type II Plan: Ajit's wound was evaluated and is healed. His previous testing has been reviewed and is not significant for valvular incompetence or arterial disease. Advised him to wear his compression stockings. Encouraged increased protein, elevation of LE and wearing compression stockings while awake and removing at bedtime. F/U as needed.
--- NOTE | 2018-04-18 17:53 | PN.PCM_ITS ---
(1) Ulcer of left borja with fat layer exposed Status: Resolved Current Visit: No Code(s): L97.822 - Non-pressure chronic ulcer of other part of left lower leg with fat layer exposed (2) Venous ulcer of left lower extremity without varicose veins Status: Chronic Current Visit: Yes Code(s): I87.2 - Venous insufficiency ( chronic) (peripheral); L97.929 - Non-pressure chronic ulcer of unspecified part of left lower leg with unspecified severity (3) Schizophrenia Status: Chronic Current Visit: Yes Qualifiers: Schizophrenia type: unspecified Qualified Code(s): F20.9 - Schizophrenia, unspecified Code(s): F20.9 - Schizophrenia, unspecified (4) Bilateral leg edema Status: Chronic Current Visit: Yes Code(s): R60.0 - Localized edema Type of Wound Date of Service: 04/18/18 Chief Complaint: Wound to the left borja History of Wound: Ajit presents to the wound center for treatment of a nonhealing wound of his left borja that he has had for several weeks. He thinks he may have scratched it in brambles. He has edema to LE b/l and has been treated here in the past for similar wounds. He had arterial studies in 2013 which did not show any significant arterial disease. He had venous studies done in 11/2017 which did not show DVT or incompetent veins in his LE. Dr. Taylor treated him with 2 different antibiotics and he has been applying topical ointment and gauze to the wound but it was not improving. He did start wearing compression stockings in the last day or two. He denies pain, fever, chills, odor or drainage. He lives in a care home and cares for himself with supervision from staff. He is accompanied today by his case investigator, Isaac. Progress of Wound: Ajit's wound is healed. He is wearing compression faithfully. Denies increased drainage or erythema or pain. - Physical Exam Vital Signs Temp Pulse Resp BP 97.4 F L 104 H 18 127/79 H 04/18/18 12:49 04/18/18 12:49 04/18/18 12:49 04/18/18 12:49 General: Alert, Oriented x3, Cooperative, No apparent distress HEENT: Atraumatic, Normocephalic Oral: Moist Mucosa Skin: Ulcer/ Wound Wound Measurements and Assessment WC - Nurse 1 - General Ulcer Measurement Start: 04/11/18 14:42 Freq: Status: Active Protocol: Activity Type Activity Date Activity User E-Sign Co-Sign Detail Recorded Client Recorded Date Recorded By Document 04/18/18 12:49 DL [id number] 04/18/18 12:56 DL 04/18/18 12:49 Wound Center Nurse 1 [Ulcer Assessment] #3 LEFT MEDIAL BORJA -Current Size (cm) - Length 0 -Current Size (cm) - Width 0 -Current Size (cm) - Depth 0 -Total Square Cm 0 -Photo Taken Yes -Wound Margin Flat & Intact -Granulation Amt Large (67-100%) -Granulation Quality [place] -Necrosis Amt None Present (0 %) -Structure Exposed N/A -Texture (Marianela-wound Skin Appearance) Scarring -Moisture (Marianela-wound Skin Appearance No Abnormality ) -Color (Marianela-wound Skin Appearance) Hemosiderin Staining -Temperature (Marianela-wound Skin No Abnormality Appearance) (Pt Warm) -Ulcer Cleansing Wound Cleanser -Foul Odor after Cleansing No -Anesthetic Used 4% Lidocaine Solution [Edema Assessment] -Left Calf (cm) 35 -Left Ankle (cm) 22.9 WC - Nurse 2 - General Ulcer CM Notes Start: 04/11/18 14:42 Freq: Status: Active Protocol: Activity Type Activity Date Activity User E-Sign Co-Sign Detail Recorded Client Recorded Date Recorded By Document 04/18/18 13:13 [id number] 04/18/18 13:15 04/18/18 13:13 Wound Center Nurse 2 [Procedure/Treatment] #3 LEFT MEDIAL BORJA -Time 13:13 -Correct Patient Yes -Correct Side, Site, Position Yes -Correct Procedure Yes -Procedure Performed Yes -Post Debridement Size (cm) - Length 0 -Post Debridement Size (cm) - Width 0 -Post Debridement Size (cm) - Depth 0 -Total Square Cm 0 -Wound/Ulcer Outcome Healed- Epithelialized -Ulcer Cleansing Rinsed/ Irrigated with Saline -Foul Odor after Cleansing No -Bioengineered Tissue No -Bleeding Controlled with NA -Treatment Response Procedure Tolerated Well [See Physician Procedure note for Specifics] Pain Scale: 0-10 Numeric [Pain] -Is Patient Pain Free? Yes Psych/Mental Status: Normal Affect, Appropriate Debridement Note Post-Debridement Measurements/Treatment WC - Nurse 2 - General Ulcer CM Notes Start: 04/11/18 14:42 Freq: Status: Active Protocol: Activity Type Activity Date Activity User E-Sign Co-Sign Detail Recorded Client Recorded Date Recorded By Document 04/11/18 15:39 [id number] 04/11/18 15:43 Document 04/18/18 13:13 TM [id number] 04/18/18 13:15 TM 04/11/18 04/18/18 15:39 13:13 Wound Center Nurse 2 #3 LEFT MEDIAL BORJA -Time 15:39 13:13 -Correct Patient Yes Yes -Correct Side, Site, Position Yes Yes -Correct Procedure Yes Yes -Procedure Performed Yes Yes -Type of Procedure Debridement -Clinical Debridement Subcutaneous -Post Debridement Size (cm) - Length 0.6 0 -Post Debridement Size (cm) - Width 0.4 0 -Post Debridement Size (cm) - Depth 0.1 0 -Total Square Cm 0.24 0 -Wound/Ulcer Outcome Not Healed Healed- Epithelialized -Ulcer Cleansing Rinsed/ Rinsed/ Irrigated with Irrigated with Saline Saline -Foul Odor after Cleansing No No -Bioengineered Tissue No No -Topical Lidocaine (%) 4 -Lidocaine (ml) 5 -Bleeding Controlled with NA NA -Treatment Response Procedure Procedure Tolerated Well Tolerated Well Pain Scale: 0-10 Numeric Is Patient Pain Free? Yes Yes Wound debrided: left medial borja Laterality: Left No debridement was completed today - wound is healed Assessment/Plan Active Problems Venous ulcer of left lower extremity without varicose veins (Chronic) Schizophrenia (Chronic) Bilateral leg edema (Chronic) Assessment: nonhealing wound left borja. venous ulcer left borja. b/l LE edema. DM type II Plan: Ajit's wound was evaluated and is healed. His previous testing has been reviewed and is not significant for valvular incompetence or arterial disease. Advised him to wear his compression stockings. Encouraged increased protein, elevation of LE and wearing compression stockings while awake and removing at bedtime. F/U as needed.
== END 2018-05-06 23:59 ==
LOC: WC 12:30
PROVIDERS: Family Provider Internal Medicine; PCP Internal Medicine; Visit Provider Family Medicine
DX: E11.622 Type 2 diabetes mellitus with other skin ulcer (principal); I87.2 Venous insufficiency (chronic) (peripheral); L97.822 Non-pressure chronic ulcer of other part of left lower leg with fat layer exposed; F20.9 Schizophrenia, unspecified; R60.0 Localized edema
CPT/HCPCS: 11042; 99213; G0463

== ENCOUNTER 2018-05-02 15:46 | Emergency (ER) | payer MEDICARE, SELFPAY ==
[2018-05-02 15:48] VITALS: BP 145/79; PULSE 83; RESP 18; TEMP 36.8; O2SAT 96; BMI 29.2
--- NOTE | 2018-05-02 16:40 | CT_ITS ---
STUDY: CT BRAIN WITHOUT CONTRAST REASON FOR EXAM: Male, 62 years old. Confusion. RADIATION DOSAGE (If Supplied By Facility): CTDIvol = ( 44.99 ) mGy, DLP = ( 812.98 ) mGycm TECHNIQUE: Transaxial CT imaging of the brain was performed without administration of intravenous contrast material. Individualized dose optimization techniques were used for this CT. COMPARISON: Noncontrast CT brain April 16, 2018 FINDINGS: Normal soft tissue structures. Normal calvarium. Incidental note of incomplete ossification of the posterior C1 neural arch. There is borderline cerebral atrophy with slight widening of the extra-axial spaces and ventricular dilatation. Normal white matter tracts of the cerebral hemispheres. Normal basal ganglia and thalami. Normal brainstem. Normal cerebellum. There is no intracranial hemorrhage. There are no findings of an acute ischemic infarction. Stable rounded 11.5 mm soft tissue density of mucoperiosteal thickening or small mucous inclusion cyst the inferior left maxillary sinus. The inferior left mastoid sinus remains opacified. CT/Brain/Head without Contrast IMPRESSION: 1. No acute intracranial pathology. 2. Inferior aspect of the left mastoid sinus is opacified, consistent with sinusitis. Electronically Signed: Faustino Hernandez MD at 17:35 EDT , Service support ,
--- NOTE | 2018-05-02 16:41 | EKG12_ITS ---
Test Reason : CONFUSION Blood Pressure : / mmHG Vent. Rate : 079 BPM Atrial Rate : 079 BPM P-R Int : 146 ms QRS Dur : 084 ms QT Int : 366 ms P-R-T Axes : 079 066 078 degrees QTc Int : 419 ms Normal sinus rhythm Normal ECG Confirmed by PRAMOD ALSTON, BRENDA ([id number]), editorial intern DANNA LIZAMA ([id number] on 05/06/2018 2:29:59 PM Referred By: VAISHALI Confirmed By:BRENDA BENAVIDEZ MD
--- NOTE | 2018-05-02 16:49 | ED.DCSUM_ITS ---
- ER Visit Summary Date of Service: 05/02/18 Chief Complaint: Altered mental status History of Present Illness: The patient is a 62 M who had a follow-up appointment Dr. Taylor today due to recent possible TIA. The patient reportedly was more confused with some tangential thinking. He has a history of schizophrenia but his current presentation is not typical of his psychosis. [facility] staff member describes confusion with normal tasks and he had slurred speech earlier. Patient is currently confused, he does not know the month or president. He talks about prior alien invasions and encounters. Staff member states that he thought there was someone else sitting in the room with them just shortly before my evaluation. Past history significant for TIA, CHF, COPD, diabetes, schizophrenia, hepatitis C. Physical Examination: Vital signs unremarkable. Patient sitting upright in bed. He is alert and talkative, but with tangential thinking. Head and neck examination was no trauma. Heart is regular rate and rhythm. Lung sounds are clear. Abdomen is soft nontender. Neuro exam reveals normal strength and sensation throughout. He is confused and does not know the month or year. Test Results: EKG is sinus at 79 with no sign of acute ischemia. CT head shows no acute pathology. CBC reveals normal white count. Hemoglobin 11.6. Chemistry studies normal. LFTs normal. Urinalysis negative. Valproic acid is therapeutic at 63. Tox screen is positive for MDMA. Emergency Department Course and Treatment: Patient was given IV fluids. I did review his recent hospital stay with concern for TIA and similar speech symptoms. He refused an MRI at that time. When I went back and reevaluate the patient he again refuses an MRI. Renae from the counseling center presented to see the patient. Patient will be seen by the counseling center first of the week. Patient was monitored at the [facility] over the weekend. I did speak with Dr. Carter to update her on the patient's findings and plan as the patient was sent in by Dr. Taylor. Treatment Plan: [] Disposition: Discharge Impression: 1. Reported slurred speech, resolved 2. Schizoaffective disorder This note was generated with [employer] software. It may contain incorrect words, spelling, and punctuation that were not noted in review of the chart prior to signing ED Disposition - Plan for ED Patient: Disposition: Home or Assisted Living Chief Complaint: Alt LOC Instructions: ED Confusion, ED Transient Ischemic Attack Referrals: Counseling,Center [GROUP OF PHYSICIANS] - As soon as possible Dhara Taylor DO [Primary Care Provider] -
[2018-05-02] MEDS: 0.9% Normal Saline 1,000 ML 150 ML IV (17:14)
[2018-05-02 17:15] LABS: Bacteria 0 SEEN /hpf (None Seen); Mucous, Urine 0 SEEN /hpf (<or=2+); Red Blood Cells-Urine 0 SEEN /hpf (0-5); Squamous Epithelial Cells - UA 0 SEEN /hpf (0-5)
[2018-05-02 17:31] LABS: Color, Urine Yellow (Yellow); Glucose, Dipstick Normal (Normal); Ketone-Dipstick 5 mg/dl (Negative); Leukocyte Esterase-Dipstick 25 /ul (Negative); Nitrite-Dipstick Negative (Negative); Occult Blood-Urine Negative /ul (Negative); Protein-Dipstick 15 mg/dl (Negative); Specific Gravity, Urine 1.015 (1.002-1.030); Urine Bilirubin Dipstick Negative (Negative); Urine Clarity Clear (Clear); Urine Urobilinogen 4 mg/dl (Normal); Urine pH 6.5 (5.0 - 8.0)
[2018-05-02 17:34] LABS: Absolute Lymphocyte Count 1.48 X10^3/ul (0.83-4.51); Absolute Neutrophil Count 3.9 X10^3/uL (2.0-7.7); Basophil# 0.03 X10^3/uL; Basophil% 0.5 % (0-1); Eosinophil# 0.15 X10^3/uL; Eosinophils% 2.4 % (0-5); Hematocrit 35.4 % (40-54); Hemoglobin 11.6 g/dl (13.0-16.5); Lymphocyte # 1.48 X10^3/ul (4.0); Lymphocyte % 24.1 % (19-41); Mean Corp Hgb Conc 32.8 g/gl (32-36); Mean Corpuscular Hgb 29.7 pg (27.0-32.0); Mean Corpuscular Volume 90.8 fL (80-94); Mean Platelet Vol. 10.5 fl (6.2-12.0); Monocyte# 0.56 X10^3/uL; Monocyte% 9.1 % (0-10); Neutrophil % 63.7 % (47-70); Platelet Count 177 K/mm3 (150-450); RBC Distribution Width CV 13.4 % (11.6-14.6); RBC Distribution Width SD 44.2 fl (35.1-43.9); White Blood Count 6.1 K/mm3 (4.4-11.0)
[2018-05-02 17:36] LABS: Valproic Acid (Depakene) Level 63 ug/mL (50-100)
[2018-05-02 17:41] LABS: POSITIVE COUNT NO; POSITIVE DIFFERENTIAL NO; POSITIVE MORPHOLOGY NO
[2018-05-02 17:42] LABS: Amphetamine Urine VISTA NEGATIVE (<1000 ng/mL); Barbiturate Urine VISTA NEGATIVE (< 200 ng/mL); Benzodiazepine Urine VISTA NEGATIVE (< 200 ng/mL); Cocaine Urine VISTA NEGATIVE (< 300 ng/mL); Ecstacy Urine VISTA POSITIVE (< 500 ng/mL); Methadone Urine VISTA NEGATIVE (< 300 ng/mL); PCP Urine VISTA NEGATIVE (< 25 ng/mL); THC Urine VISTA NEGATIVE (< 50 ng/mL); Vista UDS pH Range 6
[2018-05-02 17:55] LABS: White Blood Cells 0-5 SEEN /hpf (0-5)
[2018-05-02 18:16] LABS: AST(SGOT) 15 U/L (15-37); Alanine Aminotransfer ALT/SGPT 15 U/L (16-61); Albumin, Serum 3.3 g/dL (3.2-5.0); Alkaline Phosphatase 71 U/L (45-117); Anion Gap 5 (5-15); BUN 22 mg/dL (7-18); BUN/Creat Ratio 21.8 RATIO (10-20); Bilirubin, Direct 0.14 mg/dL (0.00-0.30); Calcium,Total 8.5 mg/dL (8.5-10.1); Chloride 107 mmol/L (98-107); Creatinine, Serum 1.01 mg/dL (0.70-1.30); EST Glomerular Filtration Rate 80 mL/min (>60); Est Glom Filt Rate - Afr Amer 96 mL/min (>60); Globulin 2.6 g/dL (2.2-4.2); Glucose 138 mg/dL (74-106); Potassium 4.1 mmol/L (3.5-5.1); Protein, Total 5.9 g/dL (6.4-8.2); Sodium Level 142 mmol/L (136-145)
[2018-05-02 18:19] VITALS: BP 147/83; PULSE 70; RESP 14
--- NOTE | 2018-05-02 20:03 | ED.RN ---
CALLED COUNSELING CENTER. MASTER CONTROL ENGINEER STATED SHE WILL LET [facility] KNOW PT NEEDS TO BE SEEN.
[2018-05-02 20:29] VITALS: BP 160/81; PULSE 76; RESP 16; O2SAT 100
--- NOTE | 2018-05-02 22:34 | ED.DEP ---
ED Disposition - Plan for ED Patient: Disposition: Home or Assisted Living Chief Complaint: Alt LOC Instructions: ED Transient Ischemic Attack, ED Confusion Referrals: Dhara Taylor DO [Primary Care Provider] - Counseling,Center [GROUP OF PHYSICIANS] - As soon as possible
[2018-05-02 22:43] VITALS: RESP 18
== END 2018-05-02 22:43 | disposition home or self-care (01) ==
PROVIDERS: Emergency Provider Emergency Medicine; Family Provider Internal Medicine; PCP Internal Medicine
DX: R47.81 Slurred speech (principal); F25.9 Schizoaffective disorder, unspecified; I50.9 Heart failure, unspecified; J44.9 Chronic obstructive pulmonary disease, unspecified; E11.9 Type 2 diabetes mellitus without complications; B19.20 Unspecified viral hepatitis C without hepatic coma; Z86.73 Personal history of transient ischemic attack (TIA), and cerebral infarction without residual deficits; Z72.0 Tobacco use; Z79.51 Long term (current) use of inhaled steroids; Z79.82 Long term (current) use of aspirin; Z79.84 Long term (current) use of oral hypoglycemic drugs; Z79.899 Other long term (current) drug therapy
CPT/HCPCS: 70450; 80048; 80076; 80164; 80307; 80320; 81001; 84484; 85025; 93005; 96360; 96361; 99284; J7030; A4216; G0480

== ENCOUNTER 2018-05-08 16:12 | Observation (INO) | payer MEDICARE, SELFPAY ==
[2018-05-08] VITALS (14 sets, daily range): BP systolic 131–172; BP diastolic 77–108; PULSE 65–93; RESP 15–20; TEMP 36.4–36.6; O2SAT 96–100; BMI 25.8; BMI 27.8
--- NOTE | 2018-05-08 17:40 | CT_ITS ---
STUDY: CT BRAIN WITHOUT CONTRAST REASON FOR EXAM: Male, 62 years old. Confusion RADIATION DOSAGE (If Supplied By Facility): CTDIvol = ( 44.99 ) mGy, DLP = ( 863.60 ) mGycm TECHNIQUE: Transaxial CT imaging of the brain was performed without administration of intravenous contrast material. Individualized dose optimization techniques were used for this CT. COMPARISON: May 02, 2018. FINDINGS: Normal soft tissue structures. Normal calvarium. Normal size ventricles and extra-axial spaces for the patient's age. Normal white matter tracts of the cerebral hemispheres. Normal basal ganglia and thalami. Normal brainstem. Normal cerebellum. There is no intracranial hemorrhage. There are no findings of an acute ischemic infarction. There is mild maxillary sinus disease. CT/Brain/Head without Contrast IMPRESSION: Normal unenhanced CT scan of the brain. Electronically Signed: Lorne Augustine MD at 18:37 EDT , Service support ,
--- NOTE | 2018-05-08 17:40 | EKG12_ITS ---
Test Reason : CONFUSION Blood Pressure : / mmHG Vent. Rate : 067 BPM Atrial Rate : 067 BPM P-R Int : 152 ms QRS Dur : 084 ms QT Int : 402 ms P-R-T Axes : 077 059 067 degrees QTc Int : 424 ms Normal sinus rhythm Normal ECG Confirmed by PRAMOD ALSTON, BRENDA ([id number]), society editor DANNA LIZAMA ([id number] on 05/12/2018 2:17:00 PM Referred By: EDI Confirmed By:BRENDA BENAVIDEZ MD
--- NOTE | 2018-05-08 17:49 | ED.DCSUM_ITS ---
- ER Visit Summary Date of Service: 05/08/18 Chief Complaint: Confusion History of Present Illness: The patient is a 62 M presenting with intermittent confusion. His staff member from his custodial states that he has been confused intermittently since April 16. He was admitted at that time for TIA workup. During that admission patient refused MRI. He was seen again in the ED on May 02 for continued intermittent confusion. He refused MRI during the ED stay as well. Today custodial discussed with his primary care physician Dr. Taylor who feels the patient needs an MRI according to custodial staff and the patient. The patient is now agreeable to MRI. He was advised to come to the ED for further evaluation. senior living staff states that he has been having difficulty with remembering how to do tasks. Physical Examination: Vitals are stable. Patient is afebrile. Alert no acute distress. HEENT exam is unremarkable. Neck is supple. Lungs are clear and equal bilaterally. Heart is regular rate and rhythm. Abdomen is soft nontender nondistended. Extremities are unremarkable. Skin is warm and dry. No focal neurologic deficit. NIH 0 Remainder of exam is unremarkable. Emergency Department Course and Treatment: EKG sinus rate of 67 with no acute ischemic changes. CBC is unremarkable, chemistries unremarkable. Troponin is negative. INR 1.2. Urinalysis unremarkable. Depakote level 85, alcohol negative. Chest x-ray shows no acute process. CT head shows no acute process. Patient is agreeable to MRI. Discussed with the hospitalist for admission. Disposition: Admission Impression: Altered mental status, TIA This note was generated with [employer] dictation software. It may contain incorrect words, spelling, and punctuation that were not noted in review of the chart prior to signing ED Disposition - Plan for ED Patient: Chief Complaint: Confusion Referrals: Dhara Taylor DO [Primary Care Provider] -
[2018-05-08 18:08] LABS: Absolute Lymphocyte Count 1.81 X10^3/ul (0.83-4.51); Absolute Neutrophil Count 3.9 X10^3/uL (2.0-7.7); Basophil# 0.04 X10^3/uL; Basophil% 0.6 % (0-1); Eosinophil# 0.16 X10^3/uL; Eosinophils% 2.4 % (0-5); Hematocrit 37.2 % (40-54); Hemoglobin 12.2 g/dl (13.0-16.5); Lymphocyte # 1.81 X10^3/ul (4.0); Lymphocyte % 27.2 % (19-41); Mean Corp Hgb Conc 32.8 g/gl (32-36); Mean Corpuscular Volume 91.4 fL (80-94); Mean Platelet Vol. 10.1 fl (6.2-12.0); Monocyte# 0.76 X10^3/uL; Monocyte% 11.4 % (0-10); Neutrophil # 3.87 X10^3/uL (2.7-7.7); Neutrophil % 58.1 % (47-70); POSITIVE COUNT NO; POSITIVE DIFFERENTIAL NO; POSITIVE MORPHOLOGY NO; Platelet Count 181 K/mm3 (150-450); RBC Distribution Width CV 13.5 % (11.6-14.6); RBC Distribution Width SD 44.4 fl (35.1-43.9); Red Blood Count 4.07 M/mm3 (4.6-6.2); White Blood Count 6.7 K/mm3 (4.4-11.0)
[2018-05-08 18:13] LABS: International Normalized Ratio 1.2; Prothrombin Time (Protime)PT. 15.4 SECONDS (11.7-14.9)
[2018-05-08 18:14] LABS: Partial Thromboplast Time 30.4 Seconds (24.1-36.2)
[2018-05-08 18:25] LABS: Bedside Glucose 74 mg/dL (70-110)
--- NOTE | 2018-05-08 18:30 | RAD_ITS ---
STUDY: X-RAY CHEST REASON FOR EXAM: Male, 62 years old. SOB / SOA TECHNIQUE: Single frontal view of the chest. COMPARISON: April 16, 2018 FINDINGS: Chronic appearing increased interstitial lung markings. There is no demonstrated pleural abnormality. Normal heart size. Normal mediastinum and jose. Normal visualized pulmonary arteries. There is atherosclerotic calcification of the aortic arch with tortuosity. There are diffuse degenerative changes of the visualized thoracic spine. There is degenerative osteoarthritis of the bilateral shoulders. There is no demonstrated abnormality of the visualized soft tissue structures of the upper abdomen. RAD/Chest 1 View IMPRESSION: There are no acute findings. Electronically Signed: Lorne Augustine MD at 18:42 EDT , Service support ,
[2018-05-08 18:33] LABS: Valproic Acid (Depakene) Level 85 ug/mL (50-100)
[2018-05-08 18:36] LABS: Anion Gap 3 (5-15); BUN 20 mg/dL (7-18); Calcium,Total 8.7 mg/dL (8.5-10.1); Chloride 106 mmol/L (98-107); Creatinine, Serum 1.11 mg/dL (0.70-1.30); EST Glomerular Filtration Rate 72 mL/min (>60); Est Glom Filt Rate - Afr Amer 87 mL/min (>60); Estimated Creatinine Clearance 72.16 ml/min; Glucose 79 mg/dL (74-106); Potassium 4.2 mmol/L (3.5-5.1); Sodium Level 141 mmol/L (136-145)
[2018-05-08 19:03] LABS: Amphetamine Urine VISTA NEGATIVE (<1000 ng/mL); Barbiturate Urine VISTA NEGATIVE (< 200 ng/mL); Benzodiazepine Urine VISTA NEGATIVE (< 200 ng/mL); Cocaine Urine VISTA NEGATIVE (< 300 ng/mL); Ecstacy Urine VISTA POSITIVE (< 500 ng/mL); Methadone Urine VISTA NEGATIVE (< 300 ng/mL); PCP Urine VISTA NEGATIVE (< 25 ng/mL); THC Urine VISTA NEGATIVE (< 50 ng/mL); Vista UDS pH Range 5
[2018-05-08 19:31] LABS: Bacteria 0 SEEN /hpf (None Seen); Mucous, Urine 0 SEEN /hpf (<or=2+); Red Blood Cells-Urine 0 SEEN /hpf (0-5); Squamous Epithelial Cells - UA 0 SEEN /hpf (0-5); White Blood Cells 0 SEEN /hpf (0-5)
[2018-05-08 19:40] LABS: Color, Urine Yellow (Yellow); Glucose, Dipstick Normal (Normal); Ketone-Dipstick Negative (Negative); Leukocyte Esterase-Dipstick Negative /ul (Negative); Nitrite-Dipstick Negative (Negative); Occult Blood-Urine Negative /ul (Negative); Protein-Dipstick Negative (Negative); Specific Gravity, Urine 1.015 (1.002-1.030); Urine Bilirubin Dipstick Negative (Negative); Urine Clarity Clear (Clear); Urine Urobilinogen Normal (Normal)
--- NOTE | 2018-05-08 21:05 | PCM.HP.STD ---
Problem List (1) TIA (transient ischemic attack) Status: Acute (2) Schizophrenia Status: Chronic Qualifiers: Schizophrenia type: unspecified Qualified Code(s): F20.9 - Schizophrenia, unspecified (3) COPD (chronic obstructive pulmonary disease) Status: Chronic Qualifiers: COPD type: unspecified COPD Qualified Code(s): J44.9 - Chronic obstructive pulmonary disease, unspecified (4) Right-sided heart failure Status: Chronic Qualifiers: Heart failure chronicity: chronic Qualified Code(s): I50.812 - Chronic right heart failure (5) Type II diabetes mellitus Status: Chronic Qualifiers: Diabetes mellitus correction insulin use: without terminal block assembler use Diabetes mellitus complication status: without complication Qualified Code(s): E11.9 - Type 2 diabetes mellitus without complications (6) Bilateral leg edema Status: Chronic History of Present Illness Date of Admission: 05/08/18 Chief Complaint: Worsened confusion The patient is a 62 y/o M, Living in [facility] w/ PMHx: Schizophrenia w/ Prior Suicide Attempts, Tobacco use, Chronic COPD, Diabetes mellitus type II, CHF Unclear Type, PVD w/ chronic BL LE lymphedema, LLE Venous Stasis Ulcer [facility], Recent CVA/TIA admission for evaluation w/ noted confusion and slurred speech onset in April w/ admission but eventual patient refusal of MRI Brain and then return to ED with ongoing confusion but again refusal for admission and MRI to be performed who now re-presents to the [facility] ED on 05/08/18 with confusion and noted auditory hallucinations with alf confirmed taking his schizophrenia medications, failure to understand how to perform basic tasks he normally performs over the last 48 hours with PCP and skilled nursing discussion with patient and now willingness to have MRI performed. skilled nursing notes that this is very different from his baseline, worsened since initial onset April. In the ED work-up included CBC with WBC 6.7, hemoglobin 12.2, platelet 181 without market left shift, coags with PT 15.4 otherwise unremarkable, BMP with BUN/Creatinine 20/1.11, gluocse 79, Trop < 0.015, UA unremarkable, UTox w/ + meth-MDMA, depakote level 85, CT brain w/ no acute findings, chest x-ray with no acute findings. Past Medical History Past Medical History (Chronic Problems): Chronic Problems Venous ulcer of left lower extremity without varicose veins (Chronic) Schizophrenia (Chronic) COPD (chronic obstructive pulmonary disease) (Chronic) Right-sided heart failure (Chronic) Type II diabetes mellitus (Chronic) Bilateral leg edema (Chronic) Allergies sulfamethoxazole Allergy (Mild, Verified 05/08/18 16:16) Unknown trimethoprim Allergy (Mild, Verified 05/08/18 16:16) Unknown Penicillins [PCN] Allergy (Verified 05/08/18 16:16) Unknown Home Medications: Ambulatory Orders Medication Instructions Recorded Multivitamin [Multiple Vitamins] 1 tab PO DAILY 09/23/16 Lorazepam [Ativan] 1 mg PO DAILY PRN 09/25/16 Fluticasone Propionate [Flonase 1 spray NARES DAILY #1 spray.susp 08/07/17 Allergy Relief] Benztropine [Cogentin] 1 mg PO TID 11/26/17 Albuterol Inhaler [Ventolin Hfa] 2 puff INHALATION Q6H PRN PRN 03/21/18 Lisinopril 20 mg PO DAILY 03/21/18 Naproxen [Naprosyn] 500 mg PO BID PRN #20 tab 04/16/18 Aspirin E.C. [Ecotrin] 325 mg PO DAILY@0800 05/02/18 Bupropion HCl [Bupropion Xl] 150 mg PO DAILY 05/02/18 Divalproex Sodium [Depakote] 500 mg PO TID 05/02/18 Fexofenadine HCl 180 mg PO DAILY 05/02/18 Fluticasone/Salmeterol [Advair 1 inh INHALATION BID 05/02/18 250-50 Diskus] Metformin HCl [Glucophage] 500 mg PO DAILY 05/02/18 Risperidone Microspheres 50 mg IM .COMPLEX 05/02/18 [Risperdal Consta] Surgical History: tonsillectomy, - - Debridement of left foot ulcer and anterior borja ulcer. Psychiatric History: Anxiety, Depression, Prior suicide attempt, Schizophrenia Lives: Long-Term Smoking Status: Current every day smoker Tobacco Use: Cigarettes Alcohol: None Drugs: None - *Family History Maternal History Items: Heart Disease Paternal History Items: Diabetes Sibling History Items: Hypertension Review of Systems Constitutional: Denies: Chills, Fever, Weight Change HEENT: Denies: Head Aches, Sinus Congestion, Sinus Drainage Cardiovascular: Denies: Chest Pain, Palpitations Respiratory: Denies: Cough, Shortness of breath at rest, Sputum production Gastrointestinal: Denies: Abdominal Pain, Nausea, Vomiting Genitourinary: Denies: Dysuria Musculoskeletal: Denies: Joint Pain, Joint Tenderness Skin: Reports: Skin Changes, Wounds. Denies: Rash Neurological: Denies: Numbness, Tingling, Focal weakness Psychiatric: Reports: Anxiety, Depression. Denies: Homicidal Ideations, Suicidal Ideations Hematologic/ Lymphatic: Denies: Easy Bruising, Easy Bleeding VTE Information - Inpt Only VTE Present on Admission: No VTE Mechan Device Prophylaxis: SCD's VTE Pharm Prophylaxis ordered?: Yes Subjective: Seated upright in the ED bed, NAD, talking but not marked sensical, almost flight of ideas. Objective: Physical Examination: General: awake, alert, oriented to self, not date, place, recent events, remains cooperative, seated upright in bed in no apparent distress. Skin: normal color, turgor, no icterus, cyanosis, healing small L anterior borja venous stasis ulcer, scab present, BL LE chronic venous stasis skin changes. HEENT: AT/NC, EOMI, PERRLA, mildly dry MM, no carotid bruits or JVD noted. Lungs: Diminished BS BL bases, mild end expiratory wheeze, moderate effort. Heart: regular rate and rhythm; no gallop, rub audible. Abdomen: soft, NTTP, ND, normal BS, no HSM. Extremities: no cyanosis, clubbing, see skin, BL LE chronic venous stasis skin changes. Neurological: patient awake, alert, not oriented; cognitive function not baseline intact; pupils equally reactive to light and accomodation; cranial nerves II-XII grossly normal, moving all 4 extremities, no focal deficits, strength preserved, FTN, HTN intact, negative babinski. Psychiatric: affect appears mildly flat, talkative, no acute evidence of depressive or anxiety feelings. - Physical Exam Vital Signs Temp Pulse Resp BP Pulse Ox 97.5 F L 68 18 144/84 H 99 05/08/18 16:13 05/08/18 20:30 05/08/18 20:30 05/08/18 20:30 05/08/18 20:30 Oxygen Delivery Method Room Air Weight: 180 lb Body Mass Index (BMI) 25.8 Finger Stick Blood Glucose 74 Laboratory Tests Past 24 Hrs 05/08/18 05/08/18 05/08/18 17:56 17:56 17:56 WBC 6.7 RBC 4.07 L Hgb 12.2 L Hct 37.2 L MCV 91.4 MCH 30.0 MCHC 32.8 RDW 13.5 RDW Differential 44.4 H Plt Count 181 MPV 10.1 Immature Gran % (Auto) 0.300 Neut % (Auto) 58.1 Lymph % (Auto) 27.2 [place] % (Auto) 11.4 H Eos % (Auto) 2.4 Baso % (Auto) 0.6 Absolute Neuts (auto) 3.9 Absolute Lymphs (auto) 1.81 Total Counted Not Reportable PT 15.4 H INR 1.2 APTT 30.4 Sodium 141 Potassium 4.2 Chloride 106 Carbon Dioxide 32.0 Anion Gap 3 L BUN 20 H Creatinine 1.11 Estim Creat Clear Calc 72.16 Est GFR (MDRD) Af Amer 87 Est GFR (MDRD) Non-Af 72 BUN/Creatinine Ratio 18.0 Glucose 79 Calcium 8.7 Troponin I < 0.015 Urine Color Urine Clarity Urine pH Ur Specific [place] Urine Protein Urine Glucose (UA) Urine Ketones Urine Occult Blood Urine Nitrite Urine Bilirubin Urine Urobilinogen Ur Leukocyte Esterase Urine RBC Urine WBC Ur Squamous Epith Cells Urine Bacteria Urine Mucus Urine Opiates Screen Urine Methadone Screen Ur Barbiturates Screen Valproic Acid Ur Phencyclidine Scrn Ur Amphetamines Screen U Methamphetamin-MDMA U Benzodiazepines Scrn Urine Cocaine Screen U Cannabinoids Screen Ur Drug Screen Comment Ethyl Alcohol 05/08/18 05/08/18 05/08/18 17:56 18:11 18:11 WBC RBC Hgb Hct MCV MCH MCHC RDW RDW Differential Plt Count MPV Immature Gran % (Auto) Neut % (Auto) Lymph % (Auto) [place] % (Auto) Eos % (Auto) Baso % (Auto) Absolute Neuts (auto) Absolute Lymphs (auto) Total Counted PT INR APTT Sodium Potassium Chloride Carbon Dioxide Anion Gap BUN Creatinine Estim Creat Clear Calc Est GFR (MDRD) Af Amer Est GFR (MDRD) Non-Af BUN/Creatinine Ratio Glucose Calcium Troponin I Urine Color Yellow Urine Clarity Clear Urine pH 6.0 Ur Specific [place] 1.015 Urine Protein Negative Urine Glucose (UA) Normal Urine Ketones Negative Urine Occult Blood Negative Urine Nitrite Negative Urine Bilirubin Negative Urine Urobilinogen Normal Ur Leukocyte Esterase Negative Urine RBC 0 SEEN Urine WBC 0 SEEN Ur Squamous Epith Cells 0 SEEN Urine Bacteria 0 SEEN Urine Mucus 0 SEEN Urine Opiates Screen NEGATIVE Urine Methadone Screen NEGATIVE Ur Barbiturates Screen NEGATIVE Valproic Acid 85 Ur Phencyclidine Scrn NEGATIVE Ur Amphetamines Screen NEGATIVE U Methamphetamin-MDMA POSITIVE H U Benzodiazepines Scrn NEGATIVE Urine Cocaine Screen NEGATIVE U Cannabinoids Screen NEGATIVE Ur Drug Screen Comment Ethyl Alcohol 5.0 POC Glucose 05/08/18 18:17 POC Glucose 74 Assessment/Plan All Active Problems Ulcer of left borja with fat layer exposed (Resolved) TIA (transient ischemic attack) (Acute) Cellulitis and abscess of leg (Acute) The patient is a 62 y/o M, Living in [facility] w/ PMHx: Schizophrenia w/ Prior Suicide Attempts, Tobacco use, Chronic COPD, Diabetes mellitus type II, CHF Unclear Type, PVD w/ chronic BL LE lymphedema, LLE Venous Stasis Ulcer [facility] who presents to the [facility] ED on 05/08/18 with confusion and noted auditory hallucinations with skilled nursing confirmed taking his schizophrenia medications, failure to understand how to perform basic tasks he normally performs over the last 48 hours with PCP and skilled nursing discussion with patient and now willingness to have MRI performed. (1) Encephalopathy, Hallucinations concerning for TIA/CVA versus Worsened Schizophrenia: In the ED work-up included unremarkable CBC, BMP, CT Head w/ no acute findings, CXR w/ no acute findings, UA unremarkable. Will admit to PCU, will obtain MRI Brain, MRA Head and Neck, ECHO, PT/OT/Speech/Nutrition evaluation per protocol. Given timeline unclear will continue home BP regimen, maintain on asa and add plavix, add statin w/ AM FLP, fall precautions, TSH and Mag pending. May need sedation for MRI given prior difficulties. If MRI unremarkable, will need to have more thorough evaluation per Psychiatry. Will additionally obtain NH level, vitamin B12, Folic acid, hepatic profile. (2) Schizophrenia w/ Prior Suicide Attempts: Appropriate Depakote level, continue Risperdal IM complex, Depakote, bupropion, Cogentin, Ativan. Complicates presentation. If MRI unremarkable, will need to have more thorough evaluation per Psychiatry. (3) Chronic COPD: ATC duonebs, PRN albuterol, HOB, IS parameters. (4) Diabetes mellitus type II: Hold oral home regimen, ADA diet, accu checks w/ ISS, HgBA1c pending. (5) Tobacco Abuse: Encouraged cessation, inpatient consultation per RT, NR if desired. (6) PVD w/ chronic BL LE lymphedema, LLE Venous Stasis Ulcer (healed): [facility], encourage continued compression stockings (7) Diastolic CHF: No recent ECHO noted, even during prior admission April, possibly secondary to refusal, pending ECHO, maintain on asa, plavix added as noted, added statin, not on BB, continue lisinopril. (8) DVT prophylaxis: TEDs, SCD, Lovenox. Code Visit OBSV E&M: 31382 Initial observation care L3
--- NOTE | 2018-05-08 21:12 | HP.PCM_ITS ---
Problem List (1) TIA (transient ischemic attack) Status: Acute (2) Schizophrenia Status: Chronic Qualifiers: Schizophrenia type: unspecified Qualified Code(s): F20.9 - Schizophrenia, unspecified (3) COPD (chronic obstructive pulmonary disease) Status: Chronic Qualifiers: COPD type: unspecified COPD Qualified Code(s): J44.9 - Chronic obstructive pulmonary disease, unspecified (4) Right-sided heart failure Status: Chronic Qualifiers: Heart failure chronicity: chronic Qualified Code(s): I50.812 - Chronic right heart failure (5) Type II diabetes mellitus Status: Chronic Qualifiers: Diabetes mellitus prison insulin use: without watermaster use Diabetes mellitus complication status: without complication Qualified Code(s): E11.9 - Type 2 diabetes mellitus without complications (6) Bilateral leg edema Status: Chronic History of Present Illness Date of Admission: 05/08/18 Chief Complaint: Worsened confusion The patient is a 62 y/o M, Living in [facility] w/ PMHx: Schizophrenia w/ Prior Suicide Attempts, Tobacco use, Chronic COPD, Diabetes mellitus type II, CHF Unclear Type, PVD w/ chronic BL LE lymphedema, LLE Venous Stasis Ulcer [facility], Recent CVA/TIA admission for evaluation w/ noted confusion and slurred speech onset in April w/ admission but eventual patient refusal of MRI Brain and then return to ED with ongoing confusion but again refusal for admission and MRI to be performed who now re-presents to the [facility] ED on 05/08/18 with confusion and noted auditory hallucinations with longterm confirmed taking his schizophrenia medications, failure to understand how to perform basic tasks he normally performs over the last 48 hours with PCP and [facility] discussion with patient and now willingness to have MRI performed. [facility] notes that this is very different from his baseline, worsened since initial onset April. In the ED work-up included CBC with WBC 6.7, hemoglobin 12.2 , platelet 181 without market left shift, coags with PT 15.4 otherwise unremarkable, BMP with BUN/Creatinine 20/1.11, gluocse 79, Trop < 0.015, UA unremarkable, UTox w/ + meth-MDMA, depakote level 85, CT brain w/ no acute findings, chest x-ray with no acute findings. Past Medical History Past Medical History (Chronic Problems): Chronic Problems Venous ulcer of left lower extremity without varicose veins (Chronic) Schizophrenia (Chronic) COPD (chronic obstructive pulmonary disease) (Chronic) Right-sided heart failure (Chronic) Type II diabetes mellitus (Chronic) Bilateral leg edema (Chronic) Allergies sulfamethoxazole Allergy (Mild, Verified 05/08/18 16:16) Unknown trimethoprim Allergy (Mild, Verified 05/08/18 16:16) Unknown Penicillins [PCN] Allergy (Verified 05/08/18 16:16) Unknown Home Medications: Ambulatory Orders Medication Instructions Recorded Multivitamin [Multiple Vitamins] 1 tab PO DAILY 09/23/16 Lorazepam [Ativan] 1 mg PO DAILY PRN 09/25/16 Fluticasone Propionate [Flonase 1 spray NARES DAILY #1 spray.susp 08/07/17 Allergy Relief] Benztropine [Cogentin] 1 mg PO TID 11/26/17 Albuterol Inhaler [Ventolin Hfa] 2 puff INHALATION Q6H PRN PRN 03/21/18 Lisinopril 20 mg PO DAILY 03/21/18 Naproxen [Naprosyn] 500 mg PO BID PRN #20 tab 04/16/18 Aspirin E.C. [Ecotrin] 325 mg PO DAILY@0800 05/02/18 Bupropion HCl [Bupropion Xl] 150 mg PO DAILY 05/02/18 Divalproex Sodium [Depakote] 500 mg PO TID 05/02/18 Fexofenadine HCl 180 mg PO DAILY 05/02/18 Fluticasone/Salmeterol [Advair 1 inh INHALATION BID 05/02/18 250-50 Diskus] Metformin HCl [Glucophage] 500 mg PO DAILY 05/02/18 Risperidone Microspheres 50 mg IM .COMPLEX 05/02/18 [Risperdal Consta] Surgical History: tonsillectomy, - - Debridement of left foot ulcer and anterior borja ulcer. Psychiatric History: Anxiety, Depression, Prior suicide attempt, Schizophrenia Lives: Jail Smoking Status: Current every day smoker Tobacco Use: Cigarettes Alcohol: None Drugs: None - *Family History Maternal History Items: Heart Disease Paternal History Items: Diabetes Sibling History Items: Hypertension Review of Systems Constitutional: Denies: Chills, Fever, Weight Change HEENT: Denies: Head Aches, Sinus Congestion, Sinus Drainage Cardiovascular: Denies: Chest Pain, Palpitations Respiratory: Denies: Cough, Shortness of breath at rest, Sputum production Gastrointestinal: Denies: Abdominal Pain, Nausea, Vomiting Genitourinary: Denies: Dysuria Musculoskeletal: Denies: Joint Pain, Joint Tenderness Skin: Reports: Skin Changes, Wounds. Denies: Rash Neurological: Denies: Numbness, Tingling, Focal weakness Psychiatric: Reports: Anxiety, Depression. Denies: Homicidal Ideations, Suicidal Ideations Hematologic/ Lymphatic: Denies: Easy Bruising, Easy Bleeding VTE Information - Inpt Only VTE Present on Admission: No VTE Mechan Device Prophylaxis: SCD's VTE Pharm Prophylaxis ordered?: Yes Subjective: Seated upright in the ED bed, NAD, talking but not marked sensical, almost flight of ideas. Objective: Physical Examination: General: awake, alert, oriented to self, not date, place, recent events, remains cooperative, seated upright in bed in no apparent distress. Skin: normal color, turgor, no icterus, cyanosis, healing small L anterior borja venous stasis ulcer, scab present, BL LE chronic venous stasis skin changes. HEENT: AT/NC, EOMI, PERRLA, mildly dry MM, no carotid bruits or JVD noted. Lungs: Diminished BS BL bases, mild end expiratory wheeze, moderate effort. Heart: regular rate and rhythm; no gallop, rub audible. Abdomen: soft, NTTP, ND, normal BS, no HSM. Extremities: no cyanosis, clubbing, see skin, BL LE chronic venous stasis skin changes. Neurological: patient awake, alert, not oriented; cognitive function not baseline intact; pupils equally reactive to light and accomodation; cranial nerves II-XII grossly normal, moving all 4 extremities, no focal deficits, strength preserved, FTN, HTN intact, negative babinski. Psychiatric: affect appears mildly flat, talkative, no acute evidence of depressive or anxiety feelings. - Physical Exam Vital Signs Temp Pulse Resp BP Pulse Ox 97.5 F L 68 18 144/84 H 99 05/08/18 16:13 05/08/18 20:30 05/08/18 20:30 05/08/18 20:30 05/08/18 20:30 Oxygen Delivery Method Room Air Weight: 180 lb Body Mass Index (BMI) 25.8 Finger Stick Blood Glucose 74 Laboratory Tests Past 24 Hrs 05/08/18 05/08/18 05/08/18 17:56 17:56 17:56 WBC 6.7 RBC 4.07 L Hgb 12.2 L Hct 37.2 L MCV 91.4 MCH 30.0 MCHC 32.8 RDW 13.5 RDW Differential 44.4 H Plt Count 181 MPV 10.1 Immature Gran % (Auto) 0.300 Neut % (Auto) 58.1 Lymph % (Auto) 27.2 [place] % (Auto) 11.4 H Eos % (Auto) 2.4 Baso % (Auto) 0.6 Absolute Neuts (auto) 3.9 Absolute Lymphs (auto) 1.81 Total Counted Not Reportable PT 15.4 H INR 1.2 APTT 30.4 Sodium 141 Potassium 4.2 Chloride 106 Carbon Dioxide 32.0 Anion Gap 3 L BUN 20 H Creatinine 1.11 Estim Creat Clear Calc 72.16 Est GFR (MDRD) Af Amer 87 Est GFR (MDRD) Non-Af 72 BUN/Creatinine Ratio 18.0 Glucose 79 Calcium 8.7 Troponin I < 0.015 Urine Color Urine Clarity Urine pH Ur Specific [place] Urine Protein Urine Glucose (UA) Urine Ketones Urine Occult Blood Urine Nitrite Urine Bilirubin Urine Urobilinogen Ur Leukocyte Esterase Urine RBC Urine WBC Ur Squamous Epith Cells Urine Bacteria Urine Mucus Urine Opiates Screen Urine Methadone Screen Ur Barbiturates Screen Valproic Acid Ur Phencyclidine Scrn Ur Amphetamines Screen U Methamphetamin-MDMA U Benzodiazepines Scrn Urine Cocaine Screen U Cannabinoids Screen Ur Drug Screen Comment Ethyl Alcohol 05/08/18 05/08/18 05/08/18 17:56 18:11 18:11 WBC RBC Hgb Hct MCV MCH MCHC RDW RDW Differential Plt Count MPV Immature Gran % (Auto) Neut % (Auto) Lymph % (Auto) [place] % (Auto) Eos % (Auto) Baso % (Auto) Absolute Neuts (auto) Absolute Lymphs (auto) Total Counted PT INR APTT Sodium Potassium Chloride Carbon Dioxide Anion Gap BUN Creatinine Estim Creat Clear Calc Est GFR (MDRD) Af Amer Est GFR (MDRD) Non-Af BUN/Creatinine Ratio Glucose Calcium Troponin I Urine Color Yellow Urine Clarity Clear Urine pH 6.0 Ur Specific [place] 1.015 Urine Protein Negative Urine Glucose (UA) Normal Urine Ketones Negative Urine Occult Blood Negative Urine Nitrite Negative Urine Bilirubin Negative Urine Urobilinogen Normal Ur Leukocyte Esterase Negative Urine RBC 0 SEEN Urine WBC 0 SEEN Ur Squamous Epith Cells 0 SEEN Urine Bacteria 0 SEEN Urine Mucus 0 SEEN Urine Opiates Screen NEGATIVE Urine Methadone Screen NEGATIVE Ur Barbiturates Screen NEGATIVE Valproic Acid 85 Ur Phencyclidine Scrn NEGATIVE Ur Amphetamines Screen NEGATIVE U Methamphetamin-MDMA POSITIVE H U Benzodiazepines Scrn NEGATIVE Urine Cocaine Screen NEGATIVE U Cannabinoids Screen NEGATIVE Ur Drug Screen Comment Ethyl Alcohol 5.0 POC Glucose 05/08/18 18:17 POC Glucose 74 Assessment/Plan All Active Problems Ulcer of left borja with fat layer exposed (Resolved) TIA (transient ischemic attack) (Acute) Cellulitis and abscess of leg (Acute) The patient is a 62 y/o M, Living in [facility] w/ PMHx: Schizophrenia w/ Prior Suicide Attempts, Tobacco use, Chronic COPD, Diabetes mellitus type II, CHF Unclear Type, PVD w/ chronic BL LE lymphedema, LLE Venous Stasis Ulcer following [facility] who presents to the [facility] ED on 05/08/18 with confusion and noted auditory hallucinations with [facility] confirmed taking his schizophrenia medications, failure to understand how to perform basic tasks he normally performs over the last 48 hours with PCP and [facility] discussion with patient and now willingness to have MRI performed. (1) Encephalopathy, Hallucinations concerning for TIA/CVA versus Worsened Schizophrenia: In the ED work-up included unremarkable CBC, BMP, CT Head w/ no acute findings, CXR w/ no acute findings, UA unremarkable. Will admit to PCU, will obtain MRI Brain, MRA Head and Neck, ECHO, PT/OT/Speech/Nutrition evaluation per protocol. Given timeline unclear will continue home BP regimen, maintain on asa and add plavix, add statin w/ AM FLP, fall precautions, TSH and Mag pending. May need sedation for MRI given prior difficulties. If MRI unremarkable, will need to have more thorough evaluation per Psychiatry. Will additionally obtain NH level, vitamin B12, Folic acid, hepatic profile. (2) Schizophrenia w/ Prior Suicide Attempts: Appropriate Depakote level, continue Risperdal IM complex, Depakote, bupropion, Cogentin, Ativan. Complicates presentation. If MRI unremarkable, will need to have more thorough evaluation per Psychiatry. (3) Chronic COPD: ATC duonebs, PRN albuterol, HOB, IS parameters. (4) Diabetes mellitus type II: Hold oral home regimen, ADA diet, accu checks w/ ISS, HgBA1c pending. (5) Tobacco Abuse: Encouraged cessation, inpatient consultation per RT, NR if desired. (6) PVD w/ chronic BL LE lymphedema, LLE Venous Stasis Ulcer (healed): Patient [facility], encourage continued compression stockings (7) Diastolic CHF: No recent ECHO noted, even during prior admission April, possibly secondary to refusal, pending ECHO, maintain on asa, plavix added as noted, added statin, not on BB, continue lisinopril. (8) DVT prophylaxis: TEDs, SCD, Lovenox. Code Visit OBSV E&M: 27449 Initial observation care L3
--- NOTE | 2018-05-08 22:29 | ECHOD_ITS ---
Reason For Study: TIA/CVA Procedure This was a 2D Doppler, Color Flow transthoracic echocardiogram. The exam was of adequate technical quality. Exam performed portable in patient room. Left Ventricle Normal LV size. Mild concentric left ventricular hypertrophy. Left ventricular systolic function is normal. The estimated ejection fraction is 65 %. Diastolic function: considered indeterminate. No regional wall motion abnormalities noted. Right Ventricle Normal RV size. Normal systolic function. Atria Normal left atrium. The right atrium is mildly enlarged. No doppler evidence for ASD. Bubble contrast study negative for right to left interatrial shunt. Mitral Valve There is mild mitral annular calcification. Normal mitral valve. Trivial mitral valve insufficiency. Tricuspid Valve Normal tricuspid valve. Trivial tricuspid valve insufficiency. Aortic Valve Trisinus/trileaflet aortic valve. Mild focal aortic valve thickening. Mild focal aortic valve calcification. Pulmonic Valve The pulmonic valve is not well visualized. Great Vessels Normal sized aortic root. Pericardium/Pleural No pericardial effusion. Medication Performed a rapid injection of agitated mix of 9 cc saline and 1cc air to assess for atrial septal defect. MMode/2D Measurements & Calculations LVIDd: 4.0 cm IVSd: 1.3 cm Ao root diam: 3.5 cm LVIDs: 2.3 cm LVPWd: 1.3 cm RVDd: 3.4 cm FS: 43.5 % LAV(MOD-bp): 49.8 ml LA A4 area: 14.7 cm2 RA A4 area: 18.8 cm2 LAV(MOD-bp) Indexed: 24.3 ml/m2 LAV(MOD-sp2): 57.9 ml LAV(MOD-sp4): 38.2 ml Doppler Measurements & Calculations MV E max harjinder: 63.2 cm/sec Lat Peak E' Harjinder: 10.5 cm/sec Med Peak E' Harjinder: 6.7 cm/sec MV A max harjinder: 101.5 cm/sec E/E' lat: 6.0 E/E' med: 9.4 MV E/A: 0.62 Ao V2 max: 138.5 cm/sec LV V1 max: 102.9 cm/sec Ao max P.7 mmHg LV V1 max P.2 mmHg Interpretation Summary Left ventricular systolic function is normal. The estimated ejection fraction is 65 %. Mild concentric left ventricular hypertrophy. The right atrium is mildly enlarged. There is mild mitral annular calcification. Trivial mitral valve insufficiency. Trivial tricuspid valve insufficiency. Mild focal aortic valve thickening. Mild focal aortic valve calcification. Bubble contrast study negative for right to left interatrial shunt. Ordering Physician: Kristal Larsen Referring Physician: Dhara Taylor M.D. Performed By: Chata Dalal RDCS
[2018-05-08] MEDS: Divalproex Sodium 250 MG Tablet 500 MG PO (22:50)
[2018-05-08] MEDS: Famotidine 20 MG Tablet PO (22:50)
[2018-05-08] MEDS: Benztropine 2 MG Tablet 1 MG PO (22:50)
[2018-05-08] MEDS: Temazepam 15 MG Capsule PO (22:50)
[2018-05-08 22:51] LABS: Bedside Glucose 137 mg/dL (70-110)
[2018-05-08] MEDS: Ipratropium/Albuterol Sulfate 3 ML AMPUL.NEB INHALATION (23:06)
[2018-05-09] VITALS (15 sets, daily range): BP systolic 139–157; BP diastolic 64–88; PULSE 67–86; RESP 12–18; TEMP 36.3–37.2; O2SAT 93–99; BMI 27.8
[2018-05-09 00:21] LABS: AST(SGOT) 26 U/L (15-37); Alanine Aminotransfer ALT/SGPT 19 U/L (16-61); Albumin, Serum 3.2 g/dL (3.2-5.0); Alkaline Phosphatase 68 U/L (45-117); Bilirubin, Direct 0.24 mg/dL (0.00-0.30); Globulin 2.6 g/dL (2.2-4.2); Magnesium 1.9 mg/dL (1.6-2.6); Protein, Total 5.8 g/dL (6.4-8.2)
[2018-05-09 01:15] LABS: Hemoglobin A1c 5.2 % (4.2-6.3)
[2018-05-09] MEDS: Benztropine 2 MG Tablet 1 MG PO ×3 (06:01→21:40)
[2018-05-09] MEDS: Divalproex Sodium 250 MG Tablet 500 MG PO ×3 (06:01→21:40)
[2018-05-09 06:42] LABS: Anion Gap 7 (5-15); BUN 18 mg/dL (7-18); BUN/Creat Ratio 19.2 RATIO (10-20); Calcium,Total 8.6 mg/dL (8.5-10.1); Chloride 107 mmol/L (98-107); Cholesterol 96 mg/dL (200); Creatinine, Serum 0.94 mg/dL (0.70-1.30); EST Glomerular Filtration Rate 87 mL/min (>60); Est Glom Filt Rate - Afr Amer 105 mL/min (>60); Estimated Creatinine Clearance 85.21 ml/min; Glucose 78 mg/dL (74-106); High Density Lipoprotein 36 mg/dL; Potassium 3.9 mmol/L (3.5-5.1); Sodium Level 145 mmol/L (136-145); Triglycerides 88 mg/dL; Very Low Density Lipoprotein 18 mg/dL (5-40)
[2018-05-09 06:46] LABS: Bedside Glucose 87 mg/dL (70-110)
[2018-05-09] MEDS: Ipratropium/Albuterol Sulfate 3 ML AMPUL.NEB INHALATION ×3 (06:53→17:18)
[2018-05-09] MEDS: LORazepam 1 MG Tablet PO ×2 (07:45→21:42)
[2018-05-09] MEDS: Multivitamins,Therapeutic Tablet 1 TABLET PO (07:45)
[2018-05-09] MEDS: Aspirin 81 MG TAB.CHEW PO (07:45)
[2018-05-09] MEDS: Lisinopril 20 MG Tablet PO (10:10)
[2018-05-09] MEDS: Fluticasone 0.05% 1 SPRAY NASAL.SRY NASAL (10:11)
[2018-05-09] MEDS: buPROPion (XL) 150 MG TABLET.XL PO (10:11)
[2018-05-09] MEDS: Loratadine 10 MG Tablet PO (10:11)
[2018-05-09] MEDS: Clopidogrel Bisulfate 75 MG Tablet PO (10:11)
[2018-05-09] MEDS: Famotidine 20 MG Tablet PO ×2 (10:11→21:40)
[2018-05-09] MEDS: Enoxaparin 40 MG/0.4 ML Syringe SC (10:13)
[2018-05-09 10:27] LABS: Vitamin B12 941 pg/mL (211-911)
--- NOTE | 2018-05-09 11:22 | CASEMGMT ---
Addendum entered by Darlyn Arceo 05/09/18 12:29: SW spoke w/Isaac Dejesus again from [facility]. As there seems to not be a medical explanation for pt's change in behavior, Shane Morel who is currently the acting director of crisis will be stone setter [employer] tomorrow. When pt is cleared, crisis will be called by staff and Shane will come see pt. If psych placement is needed Shane will work on this. However, if pt is cleared and Shane says he can return to the fpc, pt will be able to go to the fpc when ready. REI will place a green sheet on the chart for staff in the event pt does not need psych placement and can return to the fpc. KARLA Eng, [employer] Original Note: Addendum entered by Darlyn Arceo 05/09/18 12:07: SW spoke w/pt's CM, Isaac Dejesus. He also spoke to physician, and physician will not discharge pt today. Isaac asked if we would call crisis, REI explained that once pt is medically stable, we will call crisis to assess for psych placement. REI inquired if pt does not qualify for psych placement, can he return to the fpc. Isaac will speak to staff at [facility] and let this SW know. REI will continue to follow. KARLA Eng, [employer] Original Note: Pt is here from a fpc. REI spoke w/pt's heel caser from [facility], Isaac Dejesus, in regard to pt. Isaac explains that pt has had a severe decline in the last two weeks, prior to this was managing well. Pt has been confused, Isaac states his symptoms are not consistent with his diagnoses however. Isaac explains that they believe pt's decline is due to a medical reason. [facility] is in the process of getting guardianship of the pt, but they just started the process. Pt has no family. Isaac explains pt moved to a new, more supportive fpc on Saturday. Isaac states at the previous fpc pt was turning the stove on in the middle of the night. In the fpc he was moved to, he walked into the wrong room night. If absolutely necessary, pt may be able to return to the fpc, though Isaac does not think pt can manage, and thinks pt should go to a residential. SW explained will speak w/pt to see if he is agreeable to SNF, and let Isaac know. SW explained if pt is not in agreement with this, SW would not be able to send pt. Isaac states understanding. SW spoke w/pt in room, pt confirmed was at a fpc. SW spoke w/pt about going somewhere for rehab, pt initially said that this is a place for juvenile delinquents. SW explained further, referring to residential for rehab. Pt states his mother was in a residential, something with the name [facility] in it. SW inquired if it was [facility], pt states no. Pt then said, [facility]. SW inquired if this was a singing group. Pt then said he would agree to a residential if SW went on a date w/him. SW explained that this is not appropriate. SW explained will see if Isaac from [facility] can come to see pt and speak w/him further. SW called Isaac, he did come to see pt in the hospital and is speaking w/pt now. SW spoke w/him prior to his going to see the pt. SW explained that if there is no medical reason for pt's behavior, perhaps a psych referral would be appropriate. Isaac is in agreement, but thinks it is medical. 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 SW spoke w/physician in regard to pt, pt's ammonia level is elevated, this could explain a change in mental status. If his ammonia level comes down, and pt is still confused, a psych referral will likely be needed. SW will speak w/Isaac when he is done speaking to the pt. As per physician, pt takes Depakote, and this could also explain the high ammonia. SW will continue to follow, awaiting further input from Isaac Dejesus and the physician in regard to what type of referral is needed for pt, psych vs. SNF. KARLA Eng, [employer]
[2018-05-09 12:10] LABS: Bedside Glucose 129 mg/dL (70-110)
[2018-05-09] MEDS: Lactulose 20 GM/30 ML UDC 30 GM PO ×2 (12:15→13:52)
[2018-05-09 17:05] LABS: Bedside Glucose 108 mg/dL (70-110)
--- NOTE | 2018-05-09 19:41 | PN_ITS ---
Subjective: Patient was seen and examined today, he continues to be confused but answers some questions. I look to the patient's lab work, his ammonia level was slightly elevated, I gave him oral lactulose and the level came down but he still remained in his present mental status. I feel that he needs to be seen by crisis and go to a psych facility. I think the ammonia level is elevated due to his use of Depakote chronically. No evidence of any acute abnormality was noted on his MRI and MRA studies - Physical Exam General: Alert, Oriented x3, Cooperative, No apparent distress, Well developed, Confused HEENT: Atraumatic, PERRLA, EOMI, Normocephalic Oral: Moist Mucosa Neck: Supple, No JVD, Negative Carotid Bruits, No Nuchal Rigidity, Trachea Midline, Thyroid Normal Size and Texture Lungs: Clear to auscultation, Normal air movement, No rhonchi, No wheeze, No rales Cardiovascular: Regular rate, Regular Rhythm, Normal S1, Normal S2, No murmurs, No Ectopic Activity, PMI Normal, No rub noted, No Gallop Abdomen: Bowel Sounds Present, Soft, Non Tender, Non-Distended, No hernias noted Extremities: No clubbing, No cyanosis, No edema, Capillary Refill Less than 3 Seconds Skin: No rashes, No breakdown Musculoskeletal: No Tenderness to Palpation of Joints or Extremities Neurological: Cranial nerves II-XII grossly intact, Neuro grossly intact, Sensory exam intact to light touch and pain, Coordination normal Psych/Mental Status: - - Patient is alert, he does not appear agitated or anxious thought process is not normal, he is making bizarre statements Vital Signs Temp Pulse Resp BP Pulse Ox 97.6 F L 84 16 139/71 H 98 05/09/18 16:52 05/09/18 18:48 05/09/18 17:18 05/09/18 16:52 05/09/18 16:52 Oxygen Delivery Method Room Air Weight: 86.8 kg Body Mass Index (BMI) 27.8 Intake and Output for Last 24 Hours 05/07/18 05/08/18 05/09/18 23:59 23:59 23:59 Intake Total 240 / 240 1250 / 1250 Balance 240 / 240 1250 / 1250 Laboratory Tests Past 24 Hrs 05/08/18 05/08/18 05/08/18 22:56 22:56 22:56 Sodium Potassium Chloride Carbon Dioxide Anion Gap BUN Creatinine Estim Creat Clear Calc Est GFR (MDRD) Af Amer Est GFR (MDRD) Non-Af BUN/Creatinine Ratio Glucose Hemoglobin A1c 5.2 Calcium Magnesium 1.9 Total Bilirubin 0.80 Direct Bilirubin 0.24 AST 26 ALT 19 Alkaline Phosphatase 68 Ammonia 48.0 H Total Protein 5.8 L Albumin 3.2 Globulin 2.6 Triglycerides Cholesterol LDL Cholesterol VLDL Cholesterol HDL Cholesterol Vitamin B12 Folate 31.10 05/08/18 05/09/18 05/09/18 23:03 05:28 14:35 Sodium 145 Potassium 3.9 Chloride 107 Carbon Dioxide 31.0 Anion Gap 7 BUN 18 Creatinine 0.94 Estim Creat Clear Calc 85.21 Est GFR (MDRD) Af Amer 105 Est GFR (MDRD) Non-Af 87 BUN/Creatinine Ratio 19.2 Glucose 78 Hemoglobin A1c Calcium 8.6 Magnesium Total Bilirubin Direct Bilirubin AST ALT Alkaline Phosphatase Ammonia 35.0 H Total Protein Albumin Globulin Triglycerides 88 Cholesterol 96 LDL Cholesterol 42 VLDL Cholesterol 18 HDL Cholesterol 36 L Vitamin B12 941 H Folate POC Glucose 05/09/18 05/09/18 05/09/18 16:58 12:05 06:39 POC Glucose 108 129 H 87 05/08/18 22:42 POC Glucose 137 H Medical Necessity - Tobacco Use Smoking Status: Current every day smoker Tobacco Use: Cigarettes Assessment/Plan All Active Problems Ulcer of left borja with fat layer exposed (Resolved) TIA (transient ischemic attack) (Resolved) Cellulitis and abscess of leg (Resolved) #1 schizophrenia with behavioral disturbances-patient needs hospitalization in the psych unit, crisis will see the patient, he currently resides in a senior care #2 COPD #3 type 2 diabetes - continue present treatment #4 elevated ammonia level secondary to Depakote usage-patient will be kept on lactulose daily, I do not feel he needs his ammonia level rechecked presently #5 hyperlipidemia #6 history of transient ischemic attack-patient has no evidence of old stroke on his MRI, he is currently on Plavix Code Visit OBSV E&M: 80633 Subsequent observation care L3
[2018-05-09] MEDS: Atorvastatin Calcium 80 MG Tablet PO (21:40)
--- NOTE | 2018-05-09 22:29 | MRI_ITS ---
STUDY: MRA NECK WITHOUT CONTRAST REASON FOR EXAM: Male, 62 years old. Increasing confusion over the last 3-4 weeks. TECHNIQUE: Source images were obtained, MIPs were performed. The study was performed unenhanced. Multiple images are limited by patient motion. COMPARISON: None. FINDINGS: RIGHT CAROTID ARTERIES: The origin of the right common carotid artery is not imaged on this study. There is mild atherosclerotic plaque formation with minimal narrowing of the right carotid bulb. There is mild atherosclerotic plaque formation of the origin of the right internal carotid artery with less than 50% cross sectional diameter stenosis. Normal visualized cervical portion of the right internal carotid artery. Normal origin of the right external carotid artery (ECA). LEFT CAROTID ARTERIES: The origin of the left common carotid artery is not imaged on this study. There is mild atherosclerotic plaque formation with minimal narrowing of the left carotid bulb. There is mild atherosclerotic plaque formation of the origin of the left internal carotid artery with less than 50% cross sectional diameter stenosis. Normal visualized cervical portion of the left internal carotid artery. Normal origin of the left external carotid artery (ECA). VERTEBRAL ARTERIES: Normal antegrade flow within the bilateral vertebral artery without a hemodynamically significant stenosis. MRI/MRA Neck without Contrast IMPRESSION: Technically limited MR age due to patient motion without definite hemodynamically significant stenosis. Electronically Signed: Gaby Webber MD at 10:25 EDT , Service support ,
--- NOTE | 2018-05-09 22:29 | MRI_ITS ---
STUDY: MRA OF THE HEAD WITHOUT CONTRAST REASON FOR EXAM: Male, 62 years old. Increasing confusion over the last 3-4 months. TECHNIQUE: 3-D [id number] (TOF) imaging was performed with MIPs. The study was performed unenhanced. Multiple images are limited by patient motion. COMPARISON: MRI of the brain dated May 09, 2018. FINDINGS: Normal bilateral petrous carotid arteries. Normal right cavernous carotid artery with a normal supraclinoid bifurcation. Normal left cavernous carotid artery with a normal supraclinoid bifurcation. There is hypoplastic development of the right A1 segment of the anterior cerebral arteries with an atretic but intact artery. Normal left A1 segments of the anterior cerebral artery. Normal intact anterior communicating artery (ACOM). There is limited visualization of the right A2 segment possibly related to motion artifact. There is limited visualization of the middle cerebral arteries secondary to motion artifact and significant stenoses cannot be excluded. There is a persistent origin of the right posterior cerebral artery with absence of the P1 segment of the right posterior cerebral artery. There is non-visualization of the left posterior communicating artery (PCOM). Normal bilateral vertebral arteries. Normal basilar artery with a normal basilar bifurcation. The visualized bilateral superior cerebellar (SCA) arteries are normal. Normal bilateral P1, P2 and visualized P3 segments of the posterior cerebral arteries. There are moderately severe involutional changes of the brain. MRI/MRA Head ONLY without Contrast IMPRESSION: Technically limited MRA due to patient motion. Electronically Signed: Gaby Webber MD at 10:12 EDT , Service support ,
--- NOTE | 2018-05-09 22:29 | MRI_ITS ---
STUDY: MRI BRAIN WITHOUT CONTRAST REASON FOR EXAM: Male, 62 years old. Increasing confusion over the last 3-4 weeks. TECHNIQUE: Standardized multiplanar fat and water weighted pulse sequences were obtained. COMPARISON: CT of the head dated May 08, 2018. FINDINGS: There is moderate cerebral atrophy with widening of the extra-axial spaces and ventricular dilatation. Normal white matter tracts of the supratentorial brain. There is no evidence for recent intracranial ischemia or other cause of cytotoxic edema on diffusion weighted imaging (DWI). Normal T2* images of the brain without demonstrated susceptibility artifact. There is no demonstrated hemosiderin stain. Normal bilateral basal ganglia. Normal thalami. There is no extra-axial fluid accumulation. Normal flow voids within the major intracranial circulation suggesting patency by spin echo criteria. Normal sella turcica, pituitary gland, infundibular stalk, optic chiasm and hypothalamus. Normal tectal plate and pineal gland. There are chronic white matter ischemic changes of the otoniel. The midbrain and medulla are otherwise normal. Normal cerebellum. Normal basal cisterns. 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 Normal bilateral internal auditory canals. No demonstrated orbital abnormality, within the constraints of a routine brain study. There is mild mucoperiosteal thickening within the maxillary and ethmoid sinuses. There is a small mucous retention cyst in the left maxillary sinus. Normal calvarium and skull base. Normal visualized soft tissue structures. Normal visualized upper cervical spine. MRI/Brain without Contrast IMPRESSION: 1. Involutional changes of the brain, as described above. 2. No MR evidence for acute infarct. 3. 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 Electronically Signed: Gaby Webber MD at 9:35 EDT , Service support ,
[2018-05-09 22:50] LABS: Bedside Glucose 117 mg/dL (70-110)
[2018-05-10 01:10] VITALS: BMI 27.8
[2018-05-10 02:44] VITALS: BP 147/78; PULSE 67; RESP 12; TEMP 36.9; O2SAT 96
[2018-05-10 03:04] VITALS: PULSE 67
[2018-05-10] MEDS: Divalproex Sodium 250 MG Tablet 500 MG PO ×2 (06:56→13:33)
[2018-05-10] MEDS: Benztropine 2 MG Tablet 1 MG PO ×2 (06:56→13:33)
[2018-05-10 07:01] LABS: Bedside Glucose 97 mg/dL (70-110)
[2018-05-10] MEDS: Ipratropium/Albuterol Sulfate 3 ML AMPUL.NEB INHALATION (07:04)
[2018-05-10 07:05] VITALS: PULSE 68; RESP 18; O2SAT 98
[2018-05-10 07:42] VITALS: PULSE 76
[2018-05-10] MEDS: Multivitamins,Therapeutic Tablet 1 TABLET PO (08:30)
[2018-05-10] MEDS: Aspirin 81 MG TAB.CHEW PO (08:30)
[2018-05-10] MEDS: Loratadine 10 MG Tablet PO (08:30)
[2018-05-10] MEDS: Enoxaparin 40 MG/0.4 ML Syringe SC (08:30)
[2018-05-10] MEDS: Famotidine 20 MG Tablet PO (08:31)
[2018-05-10] MEDS: Clopidogrel Bisulfate 75 MG Tablet PO (08:31)
[2018-05-10] MEDS: buPROPion (XL) 150 MG TABLET.XL PO (08:32)
[2018-05-10] MEDS: Lisinopril 20 MG Tablet PO (08:32)
[2018-05-10] MEDS: Lactulose 20 GM/30 ML UDC PO (08:34)
[2018-05-10 08:40] VITALS: BP 141/79; PULSE 79; RESP 16; TEMP 36.7; O2SAT 96
[2018-05-10] MEDS: LORazepam 1 MG Tablet PO (09:52)
[2018-05-10 11:12] VITALS: PULSE 84
--- NOTE | 2018-05-10 11:18 | CASEMGMT ---
Social Work Dr. Sow reporting that patient is cleared medically. Per notes: Crisis called to come and assess patient. Discharge plan: Psych facility vs. back to [facility]dc. Crisis here to see patient at this time. Pending outcome. If patient is cleared by crisis please follow green sheet on chart. Social work to follow if needed. Nohemi CHAO, DELIVERY MOTORCYCLE DRIVER
[2018-05-10 11:20] LABS: Bedside Glucose 94 mg/dL (70-110)
--- NOTE | 2018-05-10 12:05 | PCM.PN.HOSP ---
Subjective: Still with tangential speech. Denying any new complaints. Vitals/I&O's: Vital Signs Temp Pulse Resp BP Pulse Ox 36.7 C 84 16 141/79 H 96 05/10/18 08:40 05/10/18 11:12 05/10/18 08:40 05/10/18 08:40 05/10/18 08:40 Oxygen Delivery Method Room Air Weight: 86.8 kg Body Mass Index (BMI) 27.8 Intake and Output for Last 24 Hours 05/08/18 05/09/18 05/10/18 23:59 23:59 23:59 Intake Total 240 / 240 1490 / 1490 240 / 240 Output Total 0 / 0 Balance 240 / 240 1490 / 1490 240 / 240 General: Alert, Cooperative, No apparent distress, - - Flight of ideas HEENT: Atraumatic, PERRLA, Normocephalic Oral: Moist Mucosa, No Gingival or Mucosal Lesions/ Ulcerations Neck: No Nodes, Thyroid Normal Size and Texture Lungs: Clear to auscultation, Normal air movement, No rhonchi, No wheeze Cardiovascular: Regular rate, Regular Rhythm, Normal S1, Normal S2, No murmurs Abdomen: Bowel Sounds Present, Soft, Non Tender, Non-Distended, No Hepato-splenomegaly Extremities: No edema, No Calf Tenderness Skin: No rashes, No breakdown Musculoskeletal: No Tenderness to Palpation of Joints or Extremities, No Muscle Wasting Psych/Mental Status: Anxious, Delusions Laboratory Results 05/09/18 12:05: POC Glucose 129 H 05/09/18 14:35: Ammonia 35.0 H 05/09/18 16:58: POC Glucose 108 05/09/18 21:47: POC Glucose 117 H 05/10/18 06:53: POC Glucose 97 05/10/18 11:17: POC Glucose 94 Current Medications Acetaminophen (Tylenol) 650 mg PO Q4H PRN PRN PRN Reason: Headache/Temp>99F Al Hydroxide/Mg Hydroxide (Mylanta Ii) 30 ml PO Q6H PRN PRN PRN Reason: Gastric burning Albuterol Sulfate (Ventolin Aerosols) 2.5 mg INHALATION Q2H PRN PRN PRN Reason: dyspnea, wheezing Albuterol/Ipratropium (Duoneb) 3 ml INHALATION Q6HWA.RT VETO Last Admin: 05/10/18 07:04 Dose: 3 ml Aspirin (Aspirin, Baby) 81 mg PO DAILY@0800 [facility] Last Admin: 05/10/18 08:30 Dose: 81 mg Atorvastatin Calcium (Lipitor) 80 mg PO QHS [facility] Last Admin: 05/09/18 21:40 Dose: 80 mg Benztropine Mesylate (Cogentin) 1 mg PO TID [facility] Last Admin: 05/10/18 06:56 Dose: 1 mg Bupropion HCl (Wellbutrin Xl) 150 mg PO DAILY [facility] Last Admin: 05/10/18 08:32 Dose: 150 mg Clopidogrel Bisulfate (Plavix) 75 mg PO DAILY [facility] Last Admin: 05/10/18 08:31 Dose: 75 mg Divalproex Sodium (Depakote) 500 mg PO TID [facility] Last Admin: 05/10/18 06:56 Dose: 500 mg Enoxaparin Sodium (Lovenox) 40 mg SC DAILY@1000 [facility] Last Admin: 05/10/18 08:30 Dose: 40 mg Famotidine (Pepcid) 20 mg PO BID [facility] Last Admin: 05/10/18 08:31 Dose: 20 mg Insulin Human Lispro (Humalog Kwikpen (Bkc)) 0 unit SC [facility] PRN Reason: Protocol Last Admin: 05/10/18 11:20 Dose: Not Given Lactulose (Chronulac, Cephulac) 20 gm PO DAILY [facility] Last Admin: 05/10/18 08:34 Dose: 20 gm Lisinopril (Zestril) 20 mg PO DAILY [facility] Last Admin: 05/10/18 08:32 Dose: 20 mg Loratadine (Claritin) 10 mg PO DAILY [facility] Last Admin: 05/10/18 08:30 Dose: 10 mg Lorazepam (Ativan) 1 mg PO DAILY PRN PRN PRN Reason: ANXIETY Last Admin: 05/10/18 09:52 Dose: 1 mg Magnesium Hydroxide (Milk Of Magnesia) 30 ml PO DAILY PRN PRN Reason: Constipation Multivitamins (Multivitamin) 1 tablet PO DAILY@0800 [facility] Last Admin: 05/10/18 08:30 Dose: 1 tablet Nicotine (Nicoderm Cq (Pbkc)) 21 mg TRANSDERM. DAILY [facility] Last Admin: 05/10/18 08:30 Dose: 21 mg Ondansetron HCl (Zofran) 4 mg IV Q8H PRN PRN PRN Reason: NAUSEA Sodium Chloride () 5 - 30 ml IV UD PRN PRN Reason: SALINE FLUSH Temazepam (Restoril) 15 mg PO QHS PRN PRN PRN Reason: insomnia Last Admin: 05/08/18 22:50 Dose: 15 mg Medical Necessity - Tobacco Use Smoking Status: Current every day smoker Tobacco Use: Cigarettes Assessment/Plan All Active Problems Ulcer of left borja with fat layer exposed (Resolved) TIA (transient ischemic attack) (Resolved) Cellulitis and abscess of leg (Resolved) 1. Schizophrenia with behavioral disturbances No medical etiology has been identified to explain his change in his behavior No evidence of any stroke. Patient does have an elevated ammonia level but I do not feel that this is hepatic encephalopathy and I would not treat this I feel the patient is medically stable to be discharged from the hospital Crisis is currently evaluating the patient and will determine if the patient is to go to inpatient psychiatric unit or to go [facility]. 2. Elevated ammonia level Possibly related with his Depakote Patient's ammonia level did go down from 40-35. Prior to the 35 level, 1 hour before, he did receive 30 g of lactulose. I think that was probably too early to see if there is any appreciable change in regards to the ammonia level. I am going to discontinue the lactulose. I do not feel that the elevated ammonia level contributing to patient's behavioral disturbances. Code Visit Inpatient E&M: 63276 Subs Hosp L2
--- NOTE | 2018-05-10 12:11 | PN_ITS ---
Subjective: Still with tangential speech. Denying any new complaints. Vitals/I&O's: Vital Signs Temp Pulse Resp BP Pulse Ox 36.7 C 84 16 141/79 H 96 05/10/18 08:40 05/10/18 11:12 05/10/18 08:40 05/10/18 08:40 05/10/18 08:40 Oxygen Delivery Method Room Air Weight: 86.8 kg Body Mass Index (BMI) 27.8 Intake and Output for Last 24 Hours 05/08/18 05/09/18 05/10/18 23:59 23:59 23:59 Intake Total 240 / 240 1490 / 1490 240 / 240 Output Total 0 / 0 Balance 240 / 240 1490 / 1490 240 / 240 General: Alert, Cooperative, No apparent distress, - - Flight of ideas HEENT: Atraumatic, PERRLA, Normocephalic Oral: Moist Mucosa, No Gingival or Mucosal Lesions/ Ulcerations Neck: No Nodes, Thyroid Normal Size and Texture Lungs: Clear to auscultation, Normal air movement, No rhonchi, No wheeze Cardiovascular: Regular rate, Regular Rhythm, Normal S1, Normal S2, No murmurs Abdomen: Bowel Sounds Present, Soft, Non Tender, Non-Distended, No Hepato- splenomegaly Extremities: No edema, No Calf Tenderness Skin: No rashes, No breakdown Musculoskeletal: No Tenderness to Palpation of Joints or Extremities, No Muscle Wasting Psych/Mental Status: Anxious, Delusions Laboratory Results 05/09/18 12:05: POC Glucose 129 H 05/09/18 14:35: Ammonia 35.0 H 05/09/18 16:58: POC Glucose 108 05/09/18 21:47: POC Glucose 117 H 05/10/18 06:53: POC Glucose 97 05/10/18 11:17: POC Glucose 94 Current Medications Acetaminophen (Tylenol) 650 mg PO Q4H PRN PRN PRN Reason: Headache/Temp>99F Al Hydroxide/Mg Hydroxide (Mylanta Ii) 30 ml PO Q6H PRN PRN PRN Reason: Gastric burning Albuterol Sulfate (Ventolin Aerosols) 2.5 mg INHALATION Q2H PRN PRN PRN Reason: dyspnea, wheezing Albuterol/Ipratropium (Duoneb) 3 ml INHALATION Q6HWA.RT VETO Last Admin: 05/10/18 07:04 Dose: 3 ml Aspirin (Aspirin, Baby) 81 mg PO DAILY@0800 [facility] Last Admin: 05/10/18 08:30 Dose: 81 mg Atorvastatin Calcium (Lipitor) 80 mg PO QHS [facility] Last Admin: 05/09/18 21:40 Dose: 80 mg Benztropine Mesylate (Cogentin) 1 mg PO TID [facility] Last Admin: 05/10/18 06:56 Dose: 1 mg Bupropion HCl (Wellbutrin Xl) 150 mg PO DAILY [facility] Last Admin: 05/10/18 08:32 Dose: 150 mg Clopidogrel Bisulfate (Plavix) 75 mg PO DAILY [facility] Last Admin: 05/10/18 08:31 Dose: 75 mg Divalproex Sodium (Depakote) 500 mg PO TID [facility] Last Admin: 05/10/18 06:56 Dose: 500 mg Enoxaparin Sodium (Lovenox) 40 mg SC DAILY@1000 [facility] Last Admin: 05/10/18 08:30 Dose: 40 mg Famotidine (Pepcid) 20 mg PO BID [facility] Last Admin: 05/10/18 08:31 Dose: 20 mg Insulin Human Lispro (Humalog Kwikpen (Bkc)) 0 unit SC [facility] PRN Reason: Protocol Last Admin: 05/10/18 11:20 Dose: Not Given Lactulose (Chronulac, Cephulac) 20 gm PO DAILY [facility] Last Admin: 05/10/18 08:34 Dose: 20 gm Lisinopril (Zestril) 20 mg PO DAILY [facility] Last Admin: 05/10/18 08:32 Dose: 20 mg Loratadine (Claritin) 10 mg PO DAILY [facility] Last Admin: 05/10/18 08:30 Dose: 10 mg Lorazepam (Ativan) 1 mg PO DAILY PRN PRN PRN Reason: ANXIETY Last Admin: 05/10/18 09:52 Dose: 1 mg Magnesium Hydroxide (Milk Of Magnesia) 30 ml PO DAILY PRN PRN Reason: Constipation Multivitamins (Multivitamin) 1 tablet PO DAILY@0800 [facility] Last Admin: 05/10/18 08:30 Dose: 1 tablet Nicotine (Nicoderm Cq (Pbkc)) 21 mg TRANSDERM. DAILY [facility] Last Admin: 05/10/18 08:30 Dose: 21 mg Ondansetron HCl (Zofran) 4 mg IV Q8H PRN PRN PRN Reason: NAUSEA Sodium Chloride () 5 - 30 ml IV UD PRN PRN Reason: SALINE FLUSH Temazepam (Restoril) 15 mg PO QHS PRN PRN PRN Reason: insomnia Last Admin: 05/08/18 22:50 Dose: 15 mg Medical Necessity - Tobacco Use Smoking Status: Current every day smoker Tobacco Use: Cigarettes Assessment/Plan All Active Problems Ulcer of left borja with fat layer exposed (Resolved) TIA (transient ischemic attack) (Resolved) Cellulitis and abscess of leg (Resolved) 1. Schizophrenia with behavioral disturbances * No medical etiology has been identified to explain his change in his behavior * No evidence of any stroke. * Patient does have an elevated ammonia level but I do not feel that this is hepatic encephalopathy and I would not treat this * I feel the patient is medically stable to be discharged from the hospital * Crisis is currently evaluating the patient and will determine if the patient is to go to inpatient psychiatric unit or to [facility] back to [facility]. 2. Elevated ammonia level * Possibly related with his Depakote * Patient's ammonia level did go down from 40-35. Prior to the 35 level, 1 hour before, he did receive 30 g of lactulose. I think that was probably too early to see if there is any appreciable change in regards to the ammonia level. I am going to discontinue the lactulose. * I do not feel that the elevated ammonia level contributing to patient's behavioral disturbances. Code Visit Inpatient E&M: 93837 Subs Hosp L2
--- NOTE | 2018-05-10 12:44 | DCINST_ITS ---
You will use the following diet at home:: No restrictions Your food should be the consistency of: Regular Your liquids should be the consistency of: Regular/Thin Discharge Activity: Return to Normal Activity Call your doctor if you observe: Fever of 101 or Higher, Inability to urinate, Shortness of breath Allergies/Adverse Reactions: Allergies sulfamethoxazole Allergy (Mild, Verified 05/08/18 16:16) Unknown trimethoprim Allergy (Mild, Verified 05/08/18 16:16) Unknown Penicillins [PCN] Allergy (Verified 05/08/18 16:16) Unknown Medications to take at Discharge Multivitamin [Multiple Vitamins] 1 tab PO DAILY 09/23/16 Lorazepam [Ativan] 1 mg PO DAILY PRN 09/25/16 Fluticasone Propionate [Flonase Allergy Relief] 1 spray NARES DAILY #1 spray.susp 08/07/17 Benztropine [Cogentin] 1 mg PO TID 11/26/17 Albuterol Inhaler [Ventolin Hfa] 2 puff INHALATION Q6H PRN PRN 03/21/18 Lisinopril 20 mg PO DAILY 03/21/18 Naproxen [Naprosyn] 500 mg PO BID PRN #20 tab 04/16/18 Aspirin E.C. [Ecotrin] 325 mg PO DAILY@0800 05/02/18 Bupropion HCl [Bupropion Xl] 150 mg PO DAILY 05/02/18 Divalproex Sodium [Depakote] 500 mg PO TID 05/02/18 Fexofenadine HCl 180 mg PO DAILY 05/02/18 Fluticasone/Salmeterol [Advair 250-50 Diskus] 1 inh INHALATION BID 05/02/18 Metformin HCl [Glucophage] 500 mg PO DAILY 05/02/18 Risperidone Microspheres [Risperdal Consta] 50 mg IM .COMPLEX 05/02/18 Ciprofloxacin 0.3% [Ciloxan] 2.5 drp LEFT EAR BID #1 bottle 05/10/18 The following prescriptions were given: Ciprofloxacin 0.3% [Ciloxan] 2.5 drp LEFT EAR BID #1 bottle Primary Care Physician: Dhara Taylor DO [Primary Care Provider] - Within 2 Weeks Test Results: Test results from this visit will be discussed in further detail at your follow- up appointment, if applicable. Please Follow Up With: ENT - Left mastoiditis follow up. When: 1 month Proposed Discharge Date: 05/10/18
--- NOTE | 2018-05-10 12:44 | PCM.DC.SUM ---
Discharge Date and Diagnosis - Problem List Patient Problems: Active and Suspected Problems Mastoiditis (Acute) Date of Admission: 05/08/18 Date of Discharge: 05/10/18 - Primary Discharge Diagnosis Active and Suspected Problems Mastoiditis (Acute) - Secondary Discharge Diagnosis Chronic Problems Venous ulcer of left lower extremity without varicose veins (Chronic) Schizophrenia (Chronic) COPD (chronic obstructive pulmonary disease) (Chronic) Right-sided heart failure (Chronic) Type II diabetes mellitus (Chronic) Bilateral leg edema (Chronic) Hospital Course and Treatment Imaging Results: Clinical Impression(s) from Imaging Studies Brain CT 05/08/18 17:40 IMPRESSION: Normal unenhanced CT scan of the brain. Electronically Signed: Lorne Augustine MD at 18:37 EDT , Service support , Chest X-Ray 05/08/18 18:30 IMPRESSION: There are no acute findings. Electronically Signed: Lorne Augustine MD at 18:42 EDT , Service support , Brain MRI 05/09/18 22:29 IMPRESSION: 1. Involutional changes of the brain, as described above. 2. No MR evidence for acute infarct. 3. 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 Electronically Signed: Gaby Webber MD at 9:35 EDT , Service support , Head MRA 05/09/18 22:29 IMPRESSION: Technically limited MRA due to patient motion. Electronically Signed: Gaby Webber MD at 10:12 EDT , Service support , Neck MRA 05/09/18 22:29 IMPRESSION: Technically limited MR age due to patient motion without definite hemodynamically significant stenosis. Electronically Signed: Gaby Webber MD at 10:25 EDT , Service support , Operations: None, - - Debridement Procedures: None Summary of Care Provided: The patient is a 62 year old M presents with behavior changes from custodial. Patient had no focal deficits. And her undergo MRI which was negative for any stroke or TIA. Saw that these behavioral disturbances more line just with fluctuations of his schizophrenia. Was noted that the patient did have a mastoiditis which is more chronic process and not an acute process. And I do not feel that mastoiditis is directly contributing to the patient's behavioral changes, however, would recommend treating with Cipro eardrops for 2 weeks and also for the patient follow-up with otolaryngology to see if any kind of surgical measures are necessary. Patient did have an elevated ammonia of 48. Patient did receive 1 dose of lactulose which patient did have improvement of his ammonia level but I felt that it was not directly related with the lactulose itself as it was only checked an hour after given the dose of lactulose. I do not feel that his ammonia level is warrants treatment. The hyperammonia anemia may be related with his Depakote usage. Patient was evaluated by crisis and to require any inpatient needs for psychiatric purposes. Patient will be returning back to his custodial in stable condition. [] Discharge Diet: No Restrictions Discharge Activity: Return to Normal Activity Call your doctor if you observe: Fever of 101 or Higher, Inability to urinate, Shortness of breath Home Medications: Medications to take at Discharge Multivitamin [Multiple Vitamins] 1 tab PO DAILY 09/23/16 Lorazepam [Ativan] 1 mg PO DAILY PRN 09/25/16 Fluticasone Propionate [Flonase Allergy Relief] 1 spray NARES DAILY #1 spray.susp 08/07/17 Benztropine [Cogentin] 1 mg PO TID 11/26/17 Albuterol Inhaler [Ventolin Hfa] 2 puff INHALATION Q6H PRN PRN 03/21/18 Lisinopril 20 mg PO DAILY 03/21/18 Naproxen [Naprosyn] 500 mg PO BID PRN #20 tab 04/16/18 Aspirin E.C. [Ecotrin] 325 mg PO DAILY@0800 05/02/18 Bupropion HCl [Bupropion Xl] 150 mg PO DAILY 05/02/18 Divalproex Sodium [Depakote] 500 mg PO TID 05/02/18 Fexofenadine HCl 180 mg PO DAILY 05/02/18 Fluticasone/Salmeterol [Advair 250-50 Diskus] 1 inh INHALATION BID 05/02/18 Metformin HCl [Glucophage] 500 mg PO DAILY 05/02/18 Risperidone Microspheres [Risperdal Consta] 50 mg IM .COMPLEX 05/02/18 Ciprofloxacin 0.3% [Ciloxan] 2.5 drp LEFT EAR BID #1 bottle 05/10/18 Following Prescrptions Were Given to Patient: Ciprofloxacin 0.3% [Ciloxan] 2.5 drp LEFT EAR BID #1 bottle Primary Care Physician: Dhara Taylor DO [Primary Care Provider] - Within 2 Weeks Please Follow Up With: ENT - Left mastoiditis follow up. When: 1 month Disposition: Home Minutes spent on discharge:: 35 Patient Condition:: Fair Medical Necessity - Tobacco Use Smoking Status: Current every day smoker Tobacco Use: Cigarettes Meaningful Use Info Meaningful Use Diagnoses (Choose all that apply): None applicable Code Visit Inpatient E&M: 13278 Disch Hosp
--- NOTE | 2018-05-10 12:47 | DS.PCM_ITS ---
Discharge Date and Diagnosis - Problem List Patient Problems: Active and Suspected Problems Mastoiditis (Acute) Date of Admission: 05/08/18 Date of Discharge: 05/10/18 - Primary Discharge Diagnosis Active and Suspected Problems Mastoiditis (Acute) - Secondary Discharge Diagnosis Chronic Problems Venous ulcer of left lower extremity without varicose veins (Chronic) Schizophrenia (Chronic) COPD (chronic obstructive pulmonary disease) (Chronic) Right-sided heart failure (Chronic) Type II diabetes mellitus (Chronic) Bilateral leg edema (Chronic) Hospital Course and Treatment Imaging Results: Clinical Impression(s) from Imaging Studies Brain CT 05/08/18 17:40 IMPRESSION: Normal unenhanced CT scan of the brain. Electronically Signed: Lorne Augustine MD at 18:37 EDT , Service support , Chest X-Ray 05/08/18 18:30 IMPRESSION: There are no acute findings. Electronically Signed: Lorne Augustine MD at 18:42 EDT , Service support , Brain MRI 05/09/18 22:29 IMPRESSION: 1. Involutional changes of the brain, as described above. 2. No MR evidence for acute infarct. 3. 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 Electronically Signed: Gaby Webber MD at 9:35 EDT , Service support , Head MRA 05/09/18 22:29 IMPRESSION: Technically limited MRA due to patient motion. Electronically Signed: Gaby Webber MD at 10:12 EDT , Service support , Neck MRA 05/09/18 22:29 IMPRESSION: Technically limited MR age due to patient motion without definite hemodynamically significant stenosis. Electronically Signed: Gaby Webber MD at 10:25 EDT , Service support , Operations: None, - - Debridement Procedures: None Summary of Care Provided: The patient is a 62 year old M presents with behavior changes from longterm. Patient had no focal deficits. And her undergo MRI which was negative for any stroke or TIA. Saw that these behavioral disturbances more line just with fluctuations of his schizophrenia. Was noted that the patient did have a mastoiditis which is more chronic process and not an acute process. And I do not feel that mastoiditis is directly contributing to the patient's behavioral changes, however, would recommend treating with Cipro eardrops for 2 weeks and also for the patient follow-up with otolaryngology to see if any kind of surgical measures are necessary. Patient did have an elevated ammonia of 48. Patient did receive 1 dose of lactulose which patient did have improvement of his ammonia level but I felt that it was not directly related with the lactulose itself as it was only checked an hour after given the dose of lactulose. I do not feel that his ammonia level is warrants treatment. The hyperammonia anemia may be related with his Depakote usage. Patient was evaluated by crisis and to require any inpatient needs for psychiatric purposes. Patient will be returning back to his longterm in stable condition. [] Discharge Diet: No Restrictions Discharge Activity: Return to Normal Activity Call your doctor if you observe: Fever of 101 or Higher, Inability to urinate, Shortness of breath Home Medications: Medications to take at Discharge Multivitamin [Multiple Vitamins] 1 tab PO DAILY 09/23/16 Lorazepam [Ativan] 1 mg PO DAILY PRN 09/25/16 Fluticasone Propionate [Flonase Allergy Relief] 1 spray NARES DAILY #1 spray.susp 08/07/17 Benztropine [Cogentin] 1 mg PO TID 11/26/17 Albuterol Inhaler [Ventolin Hfa] 2 puff INHALATION Q6H PRN PRN 03/21/18 Lisinopril 20 mg PO DAILY 03/21/18 Naproxen [Naprosyn] 500 mg PO BID PRN #20 tab 04/16/18 Aspirin E.C. [Ecotrin] 325 mg PO DAILY@0800 05/02/18 Bupropion HCl [Bupropion Xl] 150 mg PO DAILY 05/02/18 Divalproex Sodium [Depakote] 500 mg PO TID 05/02/18 Fexofenadine HCl 180 mg PO DAILY 05/02/18 Fluticasone/Salmeterol [Advair 250-50 Diskus] 1 inh INHALATION BID 05/02/18 Metformin HCl [Glucophage] 500 mg PO DAILY 05/02/18 Risperidone Microspheres [Risperdal Consta] 50 mg IM .COMPLEX 05/02/18 Ciprofloxacin 0.3% [Ciloxan] 2.5 drp LEFT EAR BID #1 bottle 05/10/18 Following Prescrptions Were Given to Patient: Ciprofloxacin 0.3% [Ciloxan] 2.5 drp LEFT EAR BID #1 bottle Primary Care Physician: Dhara Taylor DO [Primary Care Provider] - Within 2 Weeks Please Follow Up With: ENT - Left mastoiditis follow up. When: 1 month Disposition: Home Minutes spent on discharge:: 35 Patient Condition:: Fair Medical Necessity - Tobacco Use Smoking Status: Current every day smoker Tobacco Use: Cigarettes Meaningful Use Info Meaningful Use Diagnoses (Choose all that apply): None applicable Code Visit Inpatient E&M: 17030 Disch Hosp
[2018-05-10] MEDS: Ciprofloxacin 0.3% 2.5ml Bottle 2.5 DRP LEFT EAR (13:32)
== END 2018-05-10 14:25 | disposition home or self-care (01) ==
LOC: ED 21:20 → PCU 21:49
PROVIDERS: Internal Medicine; Admitting Provider Family Medicine; Emergency Provider Emergency Medicine; Family Provider Internal Medicine; PCP Internal Medicine
DX: H70.002 Acute mastoiditis without complications, left ear (principal); J44.9 Chronic obstructive pulmonary disease, unspecified; E11.9 Type 2 diabetes mellitus without complications; F20.9 Schizophrenia, unspecified; D64.9 Anemia, unspecified; F17.210 Nicotine dependence, cigarettes, uncomplicated; R47.81 Slurred speech; E11.621 Type 2 diabetes mellitus with foot ulcer; E11.622 Type 2 diabetes mellitus with other skin ulcer; L97.529 Non-pressure chronic ulcer of other part of left foot with unspecified severity; L97.829 Non-pressure chronic ulcer of other part of left lower leg with unspecified severity; Z79.899 Other long term (current) drug therapy; Z79.82 Long term (current) use of aspirin; Z86.73 Personal history of transient ischemic attack (TIA), and cerebral infarction without residual deficits; I83.028 Varicose veins of left lower extremity with ulcer other part of lower leg; I50.30 Unspecified diastolic (congestive) heart failure; I89.0 Lymphedema, not elsewhere classified; E78.5 Hyperlipidemia, unspecified
CPT/HCPCS: 36415; 70450; 70544; 70547; 70551; 71045; 80048; 80061; 80076; 80164; 80307; 80320; 81001; 82140; 82607; 82746; 82962; 83036; 83735; 84484; 85025; 85610; 85730; 93005; 93306; 94640; 96372; 97162; 97166; 97802; 99218; 99283; A4216; G0378; G0480

== ENCOUNTER → 2018-06-23 11:03 | Outpatient (CLI) | payer MEDICARE, SELFPAY ==
[2018-06-23 11:43] LABS: Platelet Count 182 K/mm3 (150-450)
[2018-06-23 12:36] LABS: Valproic Acid (Depakene) Level 87 ug/mL (50-100)
[2018-06-23 12:38] LABS: AST(SGOT) 19 U/L (15-37); Alanine Aminotransfer ALT/SGPT 14 U/L (16-61); Prolactin 20.8 ng/mL
== END ==
PROVIDERS: Family Provider Internal Medicine; PCP Internal Medicine; Visit Provider Psychiatry & Neurology Psychiatry
DX: Z79.899 Other long term (current) drug therapy (principal)
CPT/HCPCS: 36415; 80164; 82140; 84146; 84450; 84460; 85049

== ENCOUNTER → 2018-09-02 10:24 | Outpatient (CLI) | payer MEDICARE, SELFPAY ==
[2018-09-02 11:22] LABS: Anion Gap 7 (5-15); BUN 18 mg/dL (7-18); BUN/Creat Ratio 16.1 RATIO (10-20); Calcium,Total 8.9 mg/dL (8.5-10.1); Chloride 98 mmol/L (98-107); Creatinine, Serum 1.12 mg/dL (0.70-1.30); EST Glomerular Filtration Rate 71 mL/min (>60); Est Glom Filt Rate - Afr Amer 86 mL/min (>60); Glucose 100 mg/dL (74-106); Potassium 4.4 mmol/L (3.5-5.1); Sodium Level 136 mmol/L (136-145)
--- OUTSIDE RECORDS SUMMARY | 2018-10-15 01:37 | XMS RPT_ITS | Continuity of Care Document ---
:1955 Author Organization [facility] Address [address] [place] [address] Phone Care Team Providers Name Role Phone Dhara Taylor DO Unavailable [facility] Unavailable [facility] Unavailable Ansley Abdi Unavailable Unavailable Unavailable Unavailable Problems Name Dates Details Allergic state, sequela (T78.40XS, 909.9) Status: Active Altered mental status, unspecified altered mental status type (R41.82, 780.97) Status: Active BMI 28.0-28.9,adult (Z68.28, V85.24) Status: Active Body mass index 27.0-27.9, adult (Z68.27, V85.23) Status: Active Constipation, chronic (K59.09, 564.00) Status: Active Controlled diabetes mellitus (E11.9, 250.00) Status: Active Essential hypertension (I10, 401.9) Status: Active History of bacteremia (Z87.898, V12.09) Status: Active Left tennis elbow (M77.12, 726.32) Comments: on nsaid - no typing or use of L arm for 2weeks- and get tennis elbow splint Status: Active Mild intermittent asthma without complication (J45.20, 493.90) Comments: pt refused spirometry- Status: Active Mixed erectile dysfunction (N52.8, 607.84) Status: Active Nasal lesion (J34.89, 478.19) Status: Active Need for prophylactic vaccination and inoculation against influenza (Renamed from Need for immunization against influenza) (Z23, V04.81) Status: Active Noncompliance with medications (Z91.14, V15.81) Status: Active Schizophrenia (F20.9, 295.90) Comments: managed by [facility] Status: Active Smoker (F17.200, 305.1) Status: Active Therapeutic drug monitoring (Z51.81, V58.83) Status: Active Venous insufficiency (I87.2, 459.81) Status: Active Medications Name Dates Details Advair Diskus 250-50 MCG/DOSE Inhalation Aerosol Powder Breath Activated 1 (one) Aero Pow Br Act bid for 0 days Quantity: 1 {Inhaler} Refills: 2 Ordered:23-Jun-2018 Sally Taylor DO, DO, Kathleen Start : 23-Jun-2018 Active Comments:never use as needed only -one puff twice a day Aspirin 325 MG Oral Tablet Delayed Release 1 (one) Tablet daily for 90 days Quantity: 90 {Tablet} Refills: 3 Ordered:18-Jun-2018 Sally Taylor DO, DO, Kathleen Start : 18-Jun-2018 Active Augmentin 875-125 MG Oral Tablet 1 (one) Tablet Tablet bid for 0 days Quantity: 20 {Tablet} Refills: 0 Ordered:12-Jun-2018 Ansley Abdi Start : 12-Jun-2018 Active Benztropine Mesylate 1 MG Oral Tablet three times daily (1 MG) Active BuPROPion HCl ER (XL) 150 MG Oral Tablet Extended Release 24 Hour 1 (one) Tablet qd for 0 days Quantity: 30 {Tablet} Refills: 3 Ordered:23-Apr-2018 Sally Taylor DO, DO, Kathleen Start : 23-Apr-2018 Active [facility] Fluticasone Propionate 50 MCG/ACT Nasal Suspension 1 (one) Dendron Dendron qd for 0 days Quantity: 1 {Container} Refills: 2 Ordered:16-Sep-2017 Vera Turner LPN Start : 16-Sep-2017 Active Depakote ER 500 MG Oral Tablet Extended Release 24 Hour 1 (one) Tablet bid for 0 days Quantity: 60 {Tablet} Refills: 0 Ordered:21-May-2018 Qiana Carter MD Start : 21-May-2018 Active Fexofenadine HCl 180 MG Oral Tablet 1 (one) Tablet daily for 0 days Quantity: 30 {Tablet} Refills: 3 Ordered:29-Oct-2017 Sally Taylor DO, DO, Kathleen Start : 29-Oct-2017 Active Glucophage 500 MG Oral Tablet 1 Tablet daily for 30 days Quantity: 60 {Tablet} Refills: 3 Ordered:23-Apr-2018 Sally Taylor DO, DO, Kathleen Start : 23-Apr-2018 Active Lisinopril 20 MG Oral Tablet 1 (one) Tablet bid for 30 days Quantity: 60 {Tablet} Refills: 3 Ordered:30-Jul-2018 Sally Taylor DO, DO, Kathleen Start : 30-Jul-2018 Active LORazepam 1 MG Oral Tablet 1 qd/prn (1 MG) Active Comments:Dr. Ashanti Marshall Multivitamin Adults 50+ Oral Tablet 1 (one) Tablet daily for 90 days Quantity: 90 {Tablet} Refills: 2 Ordered:24-Jul-2017 Hollie Jay Start : 24-Jul-2017 Active ProAir HFA 108 (90 Base) MCG/ACT Inhalation Aerosol Solution 2 (two) Aerosol Soln Puff tid or qid prn for 0 days Quantity: 1 {Inhaler} Refills: 2 Ordered:17-Jul-2018 Sally Taylor DO, DO, Kathleen Start : 17-Jul-2018 Active RisperDAL Consta 50 MG Intramuscular Suspension Reconstituted 1 (one) Milligram q 2 weeks for 30 days Refills: 0 Ordered:29-Oct-2017 Sally Taylor DO, DO, Kathleen Start : 29-Oct-2017 Active Ventolin HFA 108 (90 Base) MCG/ACT Inhalation Aerosol Solution 2 (two) puffs puffs TID or QID qd as needed for 0 days Quantity: 1 {Inhaler} Refills: 1 Ordered:20-May-2017 Sally Taylor DO, DO, Kathleen Start : 20-May-2017 Active Comments:Medication taken as needed. Tabby Allergy 180 MG Oral Tablet 1 (one) Tablet daily for 0 days Quantity: 30 {Tablet} Refills: 3 Ordered:21-May-2018 MODESTO Ruiz Start : 23-Apr-2018 End : 21-May-2018 Inactive BACTROBAN NASAL, 2% (Nasal Ointment) 1 (one) Ointment bid each nostril for 10 days Quantity: 20 {Tube} Refills: 0 Ordered:26-Mar-2016 Sally Taylor DO, DO, Kathleen Start : 26-Mar-2016 End : 05-Apr-2016 Inactive Cefadroxil 500 MG Oral Capsule 1 (one) Capsule bid for 10 days Quantity: 20 {Capsule} Refills: 0 Ordered:18-Feb-2018 Vera Arredondo Start : 18-Feb-2018 End : 28-Feb-2018 Inactive Cefdinir 300 MG Oral Capsule 1 (one) Capsule bid for 10 days Quantity: 20 {Capsule} Refills: 0 Ordered:11-Dec-2017 Sally Taylor DO, DO, Kathleen Start : 11-Dec-2017 End : 21-Dec-2017 Inactive Cialis 10 MG Oral Tablet 1 (one) Tablet Tablet qweek prn for 0 days Quantity: 7 {Tablet} Refills: 0 Ordered:29-Oct-2017 Vera Turner LPN Start : 20-May-2017 End : 29-Oct-2017 Inactive Clozaril 100 MG Oral Tablet 4 tabs tablets tablets daily for 30 days Quantity: 120 {Tablet} Refills: 0 Ordered:29-Oct-2017 Vera Turner LPN Start : 26-Apr-2016 End : 29-Oct-2017 Inactive COGENTIN, 1MG/ML (Injection Solution) 1 (one) Solution bid for 30 days Refills: 0 Ordered:13-Sep-2015 Sally Taylor DO, DO, Kathleen Start : 05-Aug-2015 End : 04-Sep-2015 Inactive Doxycycline Hyclate 100 MG Oral Capsule 1 (one) Capsule Capsule bid for 0 days Quantity: 20 {Capsule} Refills: 0 Ordered:21-May-2018 MODESTO Ruiz Start : 07-Mar-2018 End : 21-May-2018 Inactive MiraLax Oral Powder 1 (one) scoopful scoopful qd in any beverage for 0 days Quantity: 1 {Container} Refills: 11 Ordered:29-Oct-2017 Vera Turner LPN Start : 25-Oct-2016 End : 29-Oct-2017 Inactive Mucinex 600 MG Oral Tablet Extended Release 12 Hour 1 (one) Tablet Tablet bid/prn for 0 days Quantity: 30 {Tablet} Refills: 0 Ordered:29-Oct-2017 Vera Turner LPN Start : 28-Aug-2017 End : 29-Oct-2017 Inactive PREDNISONE, 20MG (Oral Tablet) 1 (one) Tablet bid for 2days then qd for 4 days for 0 days Quantity: 8 {Tablet} Refills: 0 Ordered:26-Mar-2016 Vera Turner LPN Start : 25-Aug-2015 End : 26-Mar-2016 Inactive Trileptal 300 MG Oral Tablet 1 (one) Tablet bid for 0 days Quantity: 30 {Tablet} Refills: 0 Ordered:29-Oct-2017 Vera Turner LPN Start : 24-Apr-2016 End : 29-Oct-2017 Inactive Biaxin 500 MG Oral Tablet 1 (one) Tablet bid for 0 days Quantity: 20 {Tablet} Refills: 0 Ordered:24-Apr-2016 Teri Brewer LPN Start : 26-Mar-2016 End : 24-Apr-2016 Discontinued Clozaril 25 MG Oral Tablet 1 (one) Tablet daily for 0 days Quantity: 30 {Tablet} Refills: 0 Ordered:26-Apr-2016 Gabriela Vallejo Start : 24-Apr-2016 End : 26-Apr-2016 Discontinued Lisinopril 20 MG Oral Tablet 1 (one) Tablet Tablet qd for 0 days Quantity: 30 {Tablet} Refills: 3 Ordered:24-Apr-2016 Teri Brewer LPN Start : 05-Aug-2015 End : 24-Apr-2016 Discontinued Propranolol HCl 20 MG Oral Tablet 1 tid (20 MG) End : 11-Dec-2017 Discontinued Allergies and Adverse Reactions Name Dates Details Barley Grass *CHEMICALS* (Allergy) Status: Active Dust Mite Extract *BIOLOGICALS MISC* (Allergy) Status: Active Nicotine *PSYCHOTHERAPEUTIC AND NEUROLOGICAL AGENTS - MISC.* Status: Active (Allergy) Sulfa Drugs (Allergy) Status: Active Past Medical History Name Dates Details Abnormal blood chemistry (R79.9, 790.6) Status: Resolved as of 21-May-2018 Adverse reaction to drug, initial encounter (T88.7XXA, E947.9) Comments: ED from psych meds Status: Inactive as of 10-Jan-2017 affective disorder Status: Inactive as of 10-Jan-2017 Altered mental state (R41.82, 780.97) Comments: mri brain normalmental status back to baseline per hot blast worker- Isaac Status: Resolved as of 21-May-2018 BMI 28.0-28.9,adult (Z68.28, V85.24) Status: Resolved as of 21-May-2018 BMI 29.0-29.9,adult (Z68.29, V85.25) Status: Inactive as of 02-May-2018 Cannabis abuse (F12.10, 305.20) Comments: per case mgr knowledge -inactive Status: Inactive as of 21-May-2018 Cellulitis of forearm (L03.119, 682.3) Status: Resolved as of 21-May-2018 Cellulitis of lower extremity, unspecified laterality (L03.119, 682.6) Status: Resolved as of 21-May-2018 COPD with acute exacerbation (Renamed from Acute exacerbation of chronic obstructive airways disease) (J44.1, 491.21) Status: Inactive as of 10-Jan-2017 Dog bite of upper extremity, right, initial encounter (S41.151A, 884.0) Status: Resolved as of 21-May-2018 Dog bite of upper extremity, right, subsequent encounter (S41.151D, V58.89) Status: Resolved as of 21-May-2018 Encounter for screening for malignant neoplasm of prostate (Renamed from Screening for prostate cancer) (Z12.5, V76.44) Status: Resolved as of 21-May-2018 Encounter for tobacco use cessation counseling (Z71.6, V65.42) Status: Resolved as of 21-May-2018 Laceration of right index finger (S61.210A, 883.0) Status: Resolved as of 07-Mar-2018 Need for Tdap vaccination (Renamed from Need for eiljjhrrff-qumqwsa-limwnfkum (Tdap) vaccine, adult/adolescent) (Z23, V06.1) Status: Resolved as of 21-May-2018 Post-nasal drip (R09.82, 784.91) Status: Resolved as of 21-May-2018 Sinusitis, acute (J01.90, 461.9) Status: Inactive as of 10-Jan-2017 Sore on leg (L98.9, 709.9) Status: Resolved as of 21-May-2018 Tobacco dependence (F17.200, 305.1) Comments: discussed quit smoking Status: Inactive as of 10-Jan-2017 Unspecified Diagnosis Status: Inactive as of 10-Jan-2017 Unspecified Diagnosis Status: Inactive as of 10-Jan-2017 Visit for suture removal (Z48.02, V58.32) Comments: sutures placed in ER at [facility] Status: Inactive as of 29-Oct-2017 Weakness (R53.1, 780.79) Comments: is reducing depakote per self, sees psych Asteka Status: Inactive as of 10-Jan-2017 Procedures Procedure Dates Details Tonsillectomy Completed Date Value Details 08-May-2018 History and Physical Exam Result: Comments: See Note; NOTES: [facility] Medical Records Department [address] [place] [address] History and Physical 05/08/182104 MR#: [id number] Acct: [id number] Name: CHARISSA SOSA E Rep #: [id number] : 1955 62 From: Kristal Larsen PCP: Dhara Taylor DO Status: REG ER Y Location: ED Problem List (1) TIA (transient ischemic attack) Status: Acute (2) Schizophrenia S tatus: Chronic Qualifiers: Schizophrenia type: unspecified Qualified Code(s): F20.9 - Schizophrenia, unspecified (3) COPD (chronic obstructive pulmonary disease) Status: Chronic Qualifiers: COPD type: unspecified COPD Qualified Code(s): J44.9 - Chronic obstructive pulmonary disease, unspecified (4) Right-sided heart failure Status: Chronic Qualifiers: Heart failure chronicity: chronic Qualified Code (s): I50.812 - Chronic right heart failure (5) Type II diabetes mellitus Status: Chronic Qualifiers: Diabetes mellitus group home insulin use: without group home use Diabetes mellitus complication statu s: without complication Qualified Code(s): E11.9 - Type 2 diabetes mellitus without complications (6) Bilateral leg edema Status: Chronic History of Present Illness Date of Admission: 05/08/18 Chief C omplaint: Worsened confusion The patient is a 62 y/o M, Living in Care Home w/ PMHx: Schizophrenia w/ Prior Suicide Attempts, Tobacco use, Chronic COPD, Diabetes mellitus type II, CHF Unclear Type, PV D w/ chronic BL LE lymphedema, LLE Venous Stasis Ulcer [facility], Recent CVA/TIA admission for evaluation w/ noted confusion and slurred speech onset in April w/ admission but eventual patient refusal of MRI Brain and then return to ED with ongoing confusion but again refusal for admission and MRI to be performed who now re-presents to the [facility] ED on 05/08/18 with confusion and noted aud itory hallucinations with skilled nursing confirmed taking his schizophrenia medications, failure to understand how to perform basic tasks he normally performs over the last 48 hours with PCP and [facility] discussion with patient and now willingness to have MRI performed. [facility] notes that this is very different from his baseline, worsened since initial onset April. In the ED work-up included CBC with WBC 6.7, hemoglobin 12.2, platelet 181 without market left shift, coags with PT 15.4 otherwise unremarkable, BMP with BUN/Creatinine 20/1.11, gluocse 79, Trop < 0.015, UA unremarkable, UTox w/ + meth-MDMA, depakote level 85, CT brain w/ no acute findings, chest x-ray with no acute findings. Past Medical History Past Medical History (Chronic Problems): Chronic Problems Venous ulcer of left lo wer extremity without varicose veins (Chronic) Schizophrenia (Chronic) COPD (chronic obstructive pulmonary disease) (Chronic) Right-sided heart failure (Chronic) Type II diabetes mellitus (Chronic) Bila teral leg edema (Chronic) Allergies sulfamethoxazole Allergy (Mild, Verified 05/08/18 16:16) Unknown trimethoprim Allergy (Mild, Verified 05/08/18 16:16) Unknown Penicillins [PCN] Allergy (Verified 0 05/08/18 16:16) Unknown Home Medications: Ambulatory Orders Medication Instructions Recorded Multivitamin [Multiple Vitamins] 1 tab PO DAILY 09/23/16 Surgical History: tonsillectomy, - - Debridement of left foot ulcer and anterior borja ulcer. Psychiatric History: Anxiety, Depression, Prior suicide attempt, Schizophrenia Lives: Half-Way Smoking Status: Current every day smoker Tobacco Use: Ciga rettes Alcohol: None Drugs: None - *Family History Maternal History Items: Heart Disease Paternal History Items: Diabetes Sibling History Items: Hypertension Review of Systems Constitutiona l: Denies: Chills, Fever, Weight Change HEENT: Denies: Head Aches, Sinus Congestion, Sinus Drainage Cardiovascular: Denies: Chest Pain, Palpitations Respiratory: Denies: Cough, Shortness of breath at re st, Sputum production Gastrointestinal: Denies: Abdominal Pain, Nausea, Vomiting Genitourinary: Denies: Dysuria Musculoskeletal: Denies: Joint Pain, Joint Tenderness Skin: Reports: Skin Changes, Wounds. Denies: Rash Neurological: Denies: Numbness, Tingling, Focal weakness Psychiatric: Reports: Anxiety, Depression. Denies: Homicidal Ideations, Suicidal Ideations Hematologic/ Lymphatic: Denies: Easy Bru ising, Easy Bleeding VTE Information - Inpt Only VTE Present on Admission: No VTE Mechan Device Prophylaxis: SCD's VTE Pharm Prophylaxis ordered?: Yes Subjective: Seated upright in the ED bed, NAD, ta lking but not marked sensical, almost flight of ideas. Objective: Physical Examination: General: awake, alert, oriented to self, not date, place, recent events, remains cooperative, seated upright in b ed in no apparent distress. Skin: normal color, turgor, no icterus, cyanosis, healing small L anterior borja venous stasis ulcer, scab present, BL LE chronic venous stasis skin changes. HEENT: AT/NC, EOM I, PERRLA, mildly dry MM, no carotid bruits or JVD noted. Lungs: Diminished BS BL bases, mild end expiratory wheeze, moderate effort. Heart: regular rate and rhythm; no gallop, rub audible. Abdomen: sof t, NTTP, ND, normal BS, no HSM. Extremities: no cyanosis, clubbing, see skin, BL LE chronic venous stasis skin changes. Neurological: patient awake, alert, not oriented; cognitive function not baseline intact; pupils equally reactive to light and accomodation; cranial nerves II-XII grossly normal, moving all 4 extremities, no focal deficits, strength preserved, FTN, HTN intact, negative babinski. Psyc hiatric: affect appears mildly flat, talkative, no acute evidence of depressive or anxiety feelings. - Physical Exam Vital Signs Temp Pulse Resp BP Pulse Ox 97.5 F L 68 18 144/84 H 99 05/08/18 16:13 0 05/08/18 20:30 05/08/18 20:30 05/08/18 20:30 05/08/18 20:30 Oxygen Delivery Method Room Air Weight: 180 lb Body Mass Index (BMI) 25.8 Finger Stick Blood Glucose 74 Laboratory Tests Past 24 Hrs WBC 6 .7 RBC 4.07 L Hgb 12.2 L Hct 37.2 L WBC RBC Hgb Hct MCV MCH MCHC RDW POC Glucose POC Glucose 74 Assessment/Plan All Active Problems Ulcer of left borja with fat layer exposed (Resolved) TIA (trans ient ischemic attack) (Acute) Cellulitis and abscess of leg (Acute) The patient is a 62 y/o M, Living in Care Home w/ PMHx: Schizophrenia w/ Prior Suicide Attempts, Tobacco use, Chronic COPD, Diabet es mellitus type II, CHF Unclear Type, PVD w/ chronic BL LE lymphedema, LLE Venous Stasis Ulcer following [facility] who presents to the [facility] ED on 05/08/18 with confusion and noted auditory halluci nations with [facility] confirmed taking his schizophrenia medications, failure to understand how to perform basic tasks he normally performs over the last 48 hours with PCP and [facility] discussion wi th patient and now willingness to have MRI performed. (1) Encephalopathy, Hallucinations concerning for TIA/CVA versus Worsened Schizophrenia: In the ED work-up included unremarkable CBC, BMP, CT Head w/ no acute findings, CXR w/ no acute findings, UA unremarkable. Will admit to PCU, will obtain MRI Brain, MRA Head and Neck, ECHO, PT/OT/Speech/Nutrition evaluation per protocol. Given timeline unclear will continue home BP regimen, maintain on asa and add plavix, add statin w/ AM FLP, fall precautions, TSH and Mag pending. May need sedation for MRI given prior difficulties. If MRI unremarkable, will need to have more thorough evaluation per Psychiatry. Will additionally obtain NH level, vitamin B12, Folic acid, hepatic profile. (2) Schizophrenia w/ Prior Suicide Attempts: Appropriate Depakote lev el, continue Risperdal IM complex, Depakote, bupropion, Cogentin, Ativan. Complicates presentation. If MRI unremarkable, will need to have more thorough evaluation per Psychiatry. (3) Chronic COPD: ATC duonebs, PRN albuterol, HOB, IS parameters. (4) Diabetes mellitus type II: Hold oral home regimen, ADA diet, accu checks w/ ISS, HgBA1c pending. (5) Tobacco Abuse: Encouraged cessation, inpatient con sultation per RT, NR if desired. (6) PVD w/ chronic BL LE lymphedema, LLE Venous Stasis Ulcer (healed): Patient [facility], encourage continued compression stockings (7) Diastolic CHF : No recent ECHO noted, even during prior admission April, possibly secondary to refusal, pending ECHO, maintain on asa, plavix added as noted, added statin, not on BB, continue lisinopril. (8) DVT prop hylaxis: TEDs, SCD, Lovenox. Code Visit OBSV E AND M: 19818 Initial observation care L3 05/08/18 2140 <Electronically signed by Kristal Larsen > Date Kristal Larsen Cosigner Signature: Date (if applicable) CC: Kristal Larsen; Dhara Taylor DO Signed 08-May-2018 Emergency Department Summary Result: Comments: See Note; NOTES: [facility] Medical Records Department [address] [place] [address] Emergency Department Summary 05/08/18 1748 MR#: [id number] Acct: [id number] Name: AJIT SOSA Rep #: [id number] : 1955 62 From: Petrona Rios MD PCP: Dhara Taylor DO Status: REG ER - ER Visit Summary Date of Service: 05/08/18 Chief Complaint: Confusion History of P resent Illness: The patient is a 62 M presenting with intermittent confusion. His staff member from his skilled nursing states that he has been confused intermittently since April 16. He was admitted at that time for TIA workup. During that admission patient refused MRI. He was seen again in the ED on May 02 for continued intermittent confusion. He refused MRI during the ED stay as well. Today skilled nursing d iscussed with his primary care physician Dr. Taylor who feels the patient needs an MRI according to skilled nursing staff and the patient. The patient is now agreeable to MRI. He was advised to come to the E D for further evaluation. [facility] staff states that he has been having difficulty with remembering how to do tasks. Physical Examination: Vitals are stable. Patient is afebrile. Alert no acute distr ess. HEENT exam is unremarkable. Neck is supple. Lungs are clear and equal bilaterally. Heart is regular rate and rhythm. Abdomen is soft nontender nondistended. Extremities are unremarkable. Skin is wa rm and dry. No focal neurologic deficit. NIH 0 Remainder of exam is unremarkable. Emergency Department Course and Treatment: EKG sinus rate of 67 with no acute ischemic changes. CBC is unremarkable, c hemistries unremarkable. Troponin is negative. INR 1.2. Urinalysis unremarkable. Depakote level 85, alcohol negative. Chest x-ray shows no acute process. CT head shows no acute process. Patient is agree able to MRI. Discussed with the hospitalist for admission. Disposition: Admission Impression: Altered mental status, TIA This note was generated with R&V dictation software. It may contain inc orrect words, spelling, and punctuation that were not noted in review of the chart prior to signing ED Disposition - Plan for ED Patient: Chief Complaint: Confusion Referrals: Dhara Taylor DO [[facility] Care Provider] - What to do if you have Problems For any increased pain, shortness of breath, bleeding, nausea or vomiting, chest pain, or any unexpected problems, contact your Primary Care Pr ovider. Call [facility] ([phone]) or report to the closest Emergency Room. Call 911 if necessary. 05/08/182128 <Electronically signed by Petrona Rios MD> Date _ Petrona Rios MD Cosigner Signature (If Indicated): Date CC: Dhara Taylor DO -May-2018 Brain/Head without Contrast Result: Comments: See Note; NOTES: [facility] Imaging Services [address] [place] [address] Brain/Head without Contrast MR#: [id number] Acct: [id number] Name: AJIT SOSA Rep #: [id number] : 1955 M 62 From: Lorne Augustine MD PCP: Dhara Taylor DO Status: REG ER Study: Brain/Head without Contrast Date of Exam: 05/08/18 Exam# [id number] Ordering Dr: Petrona Rios MD UDY: CT BRAIN WITHOUT CONTRAST REASON FOR EXAM: Male, 62 years old. Confusion RADIATION DOSAGE (If Supplied By Facility): CTDIvol = ( 44.99 ) mGy, DLP = ( 863.60 ) mGycm TECHNIQUE: Transaxial CT imag ing of the brain was performed without administration of intravenous contrast material. Individualized dose optimization techniques were used for this CT. COMPARISON: May 02, 2018. FINDINGS: Normal soft tissue structures. Normal calvarium. Normal size ventricles and extra-axial spaces for the patient's age. Normal white matter tracts of the cerebral hemispheres . Normal basal ganglia and thalami. Normal brainstem. Normal cerebellum. There is no intracranial hemorrhage. There are no findings of an acute ischemic infarction. There is mild maxillary sinus disea se. CT/Brain/Head without Contrast IMPRESSION: Normal unenhanced CT scan of the brain. Electronically Signed: Lonre Augustine MD at 18 :37 EDT , Service support , CC: Petrona Rios MD; Dhara Taylor DO Floor Renovator: Signed 08-May-2018 Chest 1 View Result: Comments: See Note; NOTES: [facility] Imaging Services [address] [place] [address] Chest 1 View MR#: [id number] Acct: [id number] Name: AJIT SOSA Rep #: [id number] : M 62 From: Lorne Augustine MD PCP: Dhara Taylor DO Status: REG ER Study: Chest 1 View Date of Exam: 05/08/18 Exam# [id number] Ordering Dr: Petrona Rios MD STUDY: X-RAY CHEST REASON FOR E XAM: Male, 62 years old. SOB / SOA TECHNIQUE: Single frontal view of the chest. COMPARISON: April 16, 2018 FINDINGS: Chronic appearing increased interstitial lung m arkings. There is no demonstrated pleural abnormality. Normal heart size. Normal mediastinum and jose. Normal visualized pulmonary arteries. There is atherosclerotic calcification of the aortic arch w ith tortuosity. There are diffuse degenerative changes of the visualized thoracic spine. There is degenerative osteoarthritis of the bilateral shoulders. There is no demonstrated abnormality of the vis ualized soft tissue structures of the upper abdomen. RAD/Chest 1 View IMPRESSION: There are no acute findings. Electronically Signed: Lorne Major chi, MD at 18:42 EDT , Service support , CC: Petrona Rios MD; Dhara Taylor DO Floor Renovator: Signed 06-May-2018 12 Lead Electrocardiogram Result: Comments: See Note; NOTES: [facility] Cardiovascular Services [address] [place] [id number] 12 Lead EKG 05/02/18 1555 MR#: [id number] Acct: [id number] Name: AJIT SOSA Rep # : [id number] : 1955 62 From: Ajit Benavidez MD Attending Dr: Status: DEP ER Ordering Dr: Gabriela Barrett MD Date: 05/02/18 Location: ED Sex: M C Admitted: Test Reason : CONFUSION Blood Pressur e : / mmHG Vent. Rate : 079 BPM Atrial Rate : 079 BPM P-R Int : 146 ms QRS Dur : 084 ms QT Int : 366 ms P-R-T Axes : 079 066 078 degrees QTc Int : 419 ms Normal sinus rhythm Normal ECG Confirmed by PRAMOD ALSTON, AJIT ([id number]), staff editor DANNA LIZAMA ([id number]) on 05/06/2018 2:29:59 PM Referred By: VAISHALI Confirmed By:AJIT BENAVIDEZ MD 05/06/18 1430 Date Ajit Benavidez MD CC: Gabriela Barrett MD; Dhara Taylor DO Signed 03-May-2018 Emergency Department Summary Result: Comments: See Note; NOTES: [facility] Medical Records Department [address] [address] Emergency Department Summary 05/02/18 1648 MR#: [id number] Acct: [id number] Name: AJIT SOSA Rep #: [id number] : 1955 62 From: Gabriela Barrett MD PCP: Dhara Taylor DO Status: DEP ER - ER Visit Summary Date of Service: 05/02/18 Chief Complaint: Altered mental status H istory of Present Illness: The patient is a 62 M who had a follow-up appointment Dr. Taylor today due to recent possible TIA. The patient reportedly was more confused with some tangential thinking. He h as a history of schizophrenia but his current presentation is not typical of his psychosis. [facility] staff member describes confusion with normal tasks and he had slurred speech earlier. Patient is cu rrently confused, he does not know the month or president. He talks about prior alien invasions and encounters. Staff member states that he thought there was someone else sitting in the room with them j ust shortly before my evaluation. Past history significant for TIA, CHF, COPD, diabetes, schizophrenia, hepatitis C. Physical Examination: Vital signs unremarkable. Patient sitting upright in bed. He i s alert and talkative, but with tangential thinking. Head and neck examination was no trauma. Heart is regular rate and rhythm. Lung sounds are clear. Abdomen is soft nontender. Neuro exam reveals roseanne l strength and sensation throughout. He is confused and does not know the month or year. Test Results: EKG is sinus at 79 with no sign of acute ischemia. CT head shows no acute pathology. CBC reveals n ormal white count. Hemoglobin 11.6. Chemistry studies normal. LFTs normal. Urinalysis negative. Valproic acid is therapeutic at 63. Tox screen is positive for MDMA. Emergency Department Course and Beth tment: Patient was given IV fluids. I did review his recent hospital stay with concern for TIA and similar speech symptoms. He refused an MRI at that time. When I went back and reevaluate the patient he again refuses an MRI. Renae from the counseling center presented to see the patient. Patient will be seen by the counseling center first of the week. Patient was monitored at the skilled nursing o rick the weekend. I did speak with Dr. Carter to update her on the patient's findings and plan as the patient was sent in by Dr. Taylor. Treatment Plan: [] Disposition: Discharge Impression: 1. Repor melchor slurred speech, resolved 2. Schizoaffective disorder This note was generated with R&V dictation software. It may contain incorrect words, spelling, and punctuation that were not noted in revie w of the chart prior to signing ED Disposition - Plan for ED Patient: Disposition: Home or Assisted Living Chief Complaint: Alt LOC Instructions: ED Confusion, ED Transient Ischemic Attack Referrals: Counseling,Center [GROUP OF PHYSICIANS] - As soon as possible Dhara Taylor, [Primary Care Provider] - What to do if you have Problems For any increased pain, shortness of breath, bleeding, na usea or vomiting, chest pain, or any unexpected problems, contact your Primary Care Provider. Call [facility] ([phone]) or report to the closest Emergency Room. Call 911 if necessary. 05/03 0028 <Electronically signed by Gabriela Barrett MD> Date Gabriela Barrett MD Cosigner Signature (If Indicated): Date ____ CC: Dhara Taylor DO 02-May-2018 Discharge Instruction Result: Comments: See Note; NOTES: [facility] Medical Records Department [address] [place] [address] Discharge Instruction 05/02/182233 MR#: [id number] Acct: [id number] Name: Rolando SOSA DENISEOmayra Sera Rep #: [id number] : 1955 62 From: Gabriela Barrett MD PCP: Dhara Taylor DO Status: REG ER ED Disposition - Plan for ED Patient: Disposition: Home or Assisted Living Chief Complaint: A lt LOC Instructions: ED Transient Ischemic Attack, ED Confusion Referrals: Dhara Taylor DO [Primary Care Provider] - Counseling,Center [GROUP OF PHYSICIANS] - As soon as possible What to do if yo u have Problems For any increased pain, shortness of breath, bleeding, nausea or vomiting, chest pain, or any unexpected problems, contact your Primary Care Provider. Call [facility] ) or report to the closest Emergency Room. Call 911 if necessary. 05/02/182236 <Electronically signed by Gabriela Barrett MD> Date Emmanuelle Barrett MD Cosigner Signature (If Indicated): Date CC: Dhara Taylor DO 02-May-2018 Brain/Head without Contrast Result: Comments: See Note; NOTES: [facility] Imaging Services [address] [place] [address] Brain/Head without Contrast MR#: [id number] Acct: [id number] Name: AJIT SOSA Rep #: [id number] : 1955 M 62 From: Edenilson Hernandez MD PCP: Dhara Taylor DO Status: REG ER Study: Brain/Head without Contrast Date of Exam: 05/02/18 Exam# [id number] Ordering Dr: Gabriela Barrett MD [facility] DY: CT BRAIN WITHOUT CONTRAST REASON FOR EXAM: Male, 62 years old. Confusion. RADIATION DOSAGE (If Supplied By Facility): CTDIvol = ( 44.99 ) mGy, DLP = ( 812.98 ) mGycm TECHNIQUE: Transaxial CT imag ing of the brain was performed without administration of intravenous contrast material. Individualized dose optimization techniques were used for this CT. COMPARISON: Noncontrast CT brain April 16 8 FINDINGS: Normal soft tissue structures. Normal calvarium. Incidental note of incomplete ossification of the posterior C1 neural arch. There is borderline cerebra l atrophy with slight widening of the extra-axial spaces and ventricular dilatation. Normal white matter tracts of the cerebral hemispheres. Normal basal ganglia and thalami. Normal brainstem. Normal ce rebellum. There is no intracranial hemorrhage. There are no findings of an acute ischemic infarction. Stable rounded 11.5 mm soft tissue density of mucoperiosteal thickening or small mucous inclusion cyst the inferior left maxillary sinus. The inferior left mastoid sinus remains opacified. CT/Brain/Head without Contrast IMPRESSION: 1. No acute intracranial pathology. 2. Inferior aspect of the left mastoid sinus is opacified, consistent with sinusitis. Electronically Signed: Faustino Hernandez MD at 17:35 EDT , S ervice support , CC: Gabriela Barrett MD; Dhara Taylor DO Floor Renovator: Signed 16-Apr-2018 Brain/Head without Contrast Result: Comments: See Note; NOTES: [facility] Imaging Services [address] [place] [address] Brain/Head without Contrast MR#: [id number] Acct: [id number] Name: AJIT SOSA Rep #: [id number] : 1955 M 62 From: Jackson Conde DO PCP: Dhara Taylor DO Status: REG ER Study: Brain/Head without Contrast Date of Exam: 04/16/18 Exam# [id number] Ordering Dr: Petrona Rios MD STUD Y: CT BRAIN WITHOUT CONTRAST REASON FOR EXAM: Male, 62 years old. Slurred speech. Weakness. History of bipolar disease, schizophrenia and alcohol abuse. RADIATION DOSAGE (If Supplied By Facility): CTD Ivol = ( 44.99 ) mGy, DLP = ( 812.98 ) mGycm TECHNIQUE: Transaxial CT imaging of the brain was performed without administration of intravenous contrast material. Individualized dose optimization techn iques were used for this CT. COMPARISON: None. FINDINGS: Normal soft tissue structures. Normal calvarium. Normal size ventricles and extra-axial spaces for the pat ient's age. Normal white matter tracts of the cerebral hemispheres. Normal basal ganglia and thalami. Normal brainstem. Normal cerebellum. There is no intracranial hemorrhage. There are no findings of an acute ischemic infarction. Normal visualized paranasal sinuses. CT/Brain/Head without Contrast IMPRESSION: No evidence of acute intracranial or calvarial abnormality. If there is continued concern for acute stroke, MRI is recommended. Electronically Signed: Jackson Conde DO at 17:16 EDT Tel [phone], Service support [phone], CC: Petrona Rios MD; Dhara Taylor DO Floor Renovator: Signed 16-Apr-2018 Chest 1 View Result: Comments: See Note; NOTES: [facility] Imaging Services [address] [place] [address] Chest 1 View MR#: [id number] Acct: [id number] Name: AJIT SOSA Rep #: [id number] : M 62 From: Jackson Conde DO PCP: Dhara Taylor DO Status: PRE ER Study: Chest 1 View Date of Exam: 04/16/18 Exam# [id number] Ordering Dr: Petrona Rios MD STUDY: X-RAY CHEST REASON FOR EXA M: Male, 62 years old. Confusion. TECHNIQUE: Single AP portable view of the chest. COMPARISON: April 21, 2015. FINDINGS: Telemetry wires overlie the chest. The domenica gs are mildly hyperexpanded. There is no new mass or infiltrate. There is no demonstrated pleural abnormality. Normal size heart. There are calcifications in the mitral annulus. Normal mediastinum and jose. Normal visualized pulmonary arteries. There is atherosclerotic calcification of the aortic arch with tortuosity. There are diffuse degenerative changes of the visualized thoracic spine. There is degenerative osteoarthritis of the bilateral shoulders. There is no demonstrated abnormality of the visualized soft tissue structures of the upper abdomen. ORDER # : [id number] RAD/Chest 1 View IMPRESSION: No acute cardiopulmonary disease or interval change. Electronically Signed: Jackson Conde DO at 16:55 EDT Tel [phone], Service support [phone], CC: Petrona Rios MD; Dhara Taylor DO Floor Renovator: Signed 16-Apr-2018 Emergency Department Summary Result: Comments: See Note; NOTES: [facility] Medical Records Department [address] [place] [address] Emergency Department Summary 04/16/18 0514 MR#: [id number] Acct: [id number] Name: AJIT SOSA Rep #: [id number] : 1955 62 From: Quentin Winkler MD PCP: Dhara Taylor DO Status: DEP ER - ER Visit Summary Date of Service: 04/16/18 Chief Complaint: Left arm pain History o f Present Illness: The patient is a 62 M presenting for evaluation secondary left arm pain. Patient has a underlying history of living in a skilled nursing and has schizophrenia that is reasonably controlled . Patient states that he has had one week of pain in his left arm. He reports that this is atraumatic, and has been a continuous type pain. Patient reports that it seems to be somewhat worse with moveme nt. Patient reports that he is only allowed to take medications if they are approved by a physician and his nursing supervisor sunglasses and was unable to take any sort of ibuprofen or Aleve for this. Patient rep orts that due to that fact that is why he came to the emergency department for evaluation. He denies that there is any sort of chest pain shortness of breath lightheadedness nausea or vomiting. He does have a history of congestive heart failure COPD and diabetes. Review of systems otherwise negative. Physical Examination: Vital signs within normal limits other than hypertension 178/107. Well-nourishe d male no acute distress. Head normocephalic. Neck is nontender with full range of motion no reproducible pain with palpation of the neck or with axial loading of the neck. Patient has no reproducible p ain with palpation of the shoulder arm and elbow forearm wrist or hand. Compartments are soft throughout. 2+ radial and ulnar pulses that are bilaterally symmetric. Normal sensation over all dermatomes, no evidence of abnormal skin changes. Remainder of physical otherwise unremarkable. Test Results: None indicated Emergency Department Course and Treatment: Patient presented with left arm pain. This does appear to be musculoskeletal. I do not believe that this is cardiac in etiology. I do not believe the workup is necessary. Patient will be started on a course of Naprosyn, he was given first dose i n the ER will be discharged with a course of this. Disposition: Discharge Impression: 1. Left arm pain This note was generated with R&V dictation software. It may contain incorrect words, spelli ng, and punctuation that were not noted in review of the chart prior to signing ED Disposition - Plan for ED Patient: Disposition: Home or Assisted Living Chief Complaint: Upper Extremity Injury Diag nosis: Left arm pain Instructions: ED Muscle Aching Prescriptions: Naproxen [Naprosyn] 500 mg PO BID PRN #20 tab Referrals: Dhara Taylor DO [Primary Care Provider] - 10-14 Days if not better Wha t to do if you have Problems For any increased pain, shortness of breath, bleeding, nausea or vomiting, chest pain, or any unexpected problems, contact your Primary Care Provider. Call [facility] ([phone]) or report to the closest Emergency Room. Call 911 if necessary. 04/16/18 0717 <Electronically signed by Quentin Winkler MD> Date Quentin Winkler MD Cosigner Signature (If Indicated): Date CC: Dhara Taylor DO 21-Mar-2018 Wound Ctr History AND Physical Result: Comments: See Note; NOTES: [facility] Wound Healing Center [address] [address] Wound Ctr History AND Physical 03/21/182028 MR#: [id number] Acct: [id number] Name: AJIT RAMSEY Rep #: [id number] : 1955 62 From: Samantha Manuel DO PCP: Dhara Taylor DO Status: REG RCR Y Location: WC (1) Ulcer of left borja with fat layer exposed Status: Acute Current Visit: Yes C ode(s): L97.822 - Non-pressure chronic ulcer of other part of left lower leg with fat layer exposed (2) Venous ulcer of left lower extremity without varicose veins Status: Acute Current Visit: Yes Code (s): I87.2 - Venous insufficiency (chronic) (peripheral); L97.929 - Non-pressure chronic ulcer of unspecified part of left lower leg with unspecified severity (3) COPD (chronic obstructive pulmonary di sease) Status: Chronic Current Visit: Yes Qualifiers: COPD type: unspecified COPD Qualified Code(s): J44.9 - Chronic obstructive pulmonary disease, unspecified Code(s): J44.9 - Chronic obstructive pulmo nary disease, unspecified (4) Type II diabetes mellitus Status: Chronic Current Visit: Yes Qualifiers: Diabetes mellitus mailing machine helper insulin use: without group home use Diabetes mellitus complication stat us: without complication Qualified Code(s): E11.9 - Type 2 diabetes mellitus without complications Code(s): E11.9 - Type 2 diabetes mellitus without complications (5) Bilateral leg edema Status: Chroni c Current Visit: Yes Code(s): R60.0 - Localized edema (6) Schizophrenia Status: Acute Current Visit: Yes Qualifiers: Schizophrenia type: disorganized schizophrenia Qualified Code(s): F20.1 - Disorganiz ed schizophrenia Code(s): F20.9 - Schizophrenia, unspecified History of Present Illness Date of Service: 03/21/18 Chief Complaint: Wound to the left borja History of Wound: Ajit presents to the wound ce nter for treatment of a nonhealing wound of his left borja that he has had for several weeks. He thinks he may have scratched it in brambles. He has edema to LE b/l and has been treated here in the past for similar wounds. He had arterial studies in 2013 which did not show any significant arterial disease. He had venous studies done in 11/2017 which did not show DVT or incompetent veins in his LE. Dr. Myles duarte treated him with 2 different antibiotics and he has been applying topical ointment and gauze to the wound but it was not improving. He did start wearing compression stockings in the last day or tw o. He denies pain, fever, chills, odor or drainage. He lives in a skilled nursing and cares for himself with supervision from staff. He is accompanied today by his case management director, Isaac. Past Medical History Charissa wong Medical History: Chronic Problems COPD (chronic obstructive pulmonary disease) (Chronic) Right-sided heart failure (Chronic) Type II diabetes mellitus (Chronic) Bilateral leg edema (Chronic) Surgi justo History: tonsillectomy, - - Debridement of left foot ulcer Allergies/Adverse Reactions: Allergies sulfamethoxazole Allergy (Mild, Verified 03/18/18 17:12) Unknown trimethoprim Allergy (Mild, Verifi ed 03/18/18 17:12) Unknown Penicillins [PCN] Allergy (Verified 03/21/18 20:36) Unknown Home Medications: Ambulatory Orders Medication Instructions Recorded Fluticasone/Salmeterol [Advair 1 puff INHAL ATION BID 02/12/15 500/50 Mcg Diskus] Metformin HCl [Glucophage] 500 mg PO TID 02/12/15 Multivitamin [Multiple Vitamins] 1 tab PO DAILY 09/23/16 - Family History Maternal Heart Disease Paterna l Diabetes Sibling Hypertension Lives: - - skilled nursing Smoking Status: Current every day smoker Tobacco Use: Cigarettes Alcohol: None Drugs: Marijuana Review of Systems Constitutional: Denies: Chill s, Fever, Weight Change Eyes: Denies: Pain, Vision Change HEENT: Denies: Difficulty Hearing, Difficulty Swallowing, Sinus Congestion Cardiovascular: Denies: Chest Pain, Palpitations Respiratory: Denies: Cough, Shortness of Breath Gastrointestinal: Denies: Diarrhea, Nausea, Vomiting Genitourinary: Denies: Dysuria, Hematuria Skin: Reports: Wounds Psychiatric: Denies: Homicidal Ideations, Suicidal Ideati ons Hematologic/ Lymphatic: Denies: Easy Bruising, Easy Bleeding - Physical Exam Vital Signs Temp Pulse Resp BP 96.6 F L 83 18 146/80 H 03/21/18 13:53 03/21/18 13:53 03/21/18 13:53 03/21/18 13:53 Ge neral: Alert, Oriented x3, Cooperative, No apparent distress HEENT: Atraumatic, Normocephalic Oral: Moist Mucosa Neck: Supple, No JVD, Negative Carotid Bruits Lungs: Clear to auscultation Cardiovascular : Regular rate, Regular Rhythm Abdomen: Soft, Non Tender, Obese Extremities: Edema, Peripheral Pulses Normal Skin: Ulcer/ Wound Wound Measurements and Assessment WC - Nurse 1 - General Ulcer Measuremen t Start: 03/21/18 13:50 Freq: Status: Active Protocol: Activity Type Activity Date Activity User E-Sign Co-Sign Detail Recorded Client Recorded Date Recorded By Document 03/21/18 13:53 DL [id number] 14:14 DL Wound Center Nurse 1 [Ulcer Assessment] #2 left borja -Combined with other wound No -Current Size (cm) - Length 0.8 -Current Size (cm) - Width 0.7 WC - Nurse 2 - General Ulcer CM Notes Start : 03/21/18 13:50 Freq: Status: Active Protocol: Activity Type Activity Date Activity User E-Sign Co-Sign Detail Recorded Client Recorded Date Recorded By Document 03/21/18 15:45 DV [id number] 03/21/18 15:51 DV Psych/Mental Status: Flat Affect Debridement Note Post-Debridement Measurements/Treatment WC - Nurse 2 - General Ulcer CM Notes Start: 03/21/18 13:50 Freq: Status: Active Protocol: Activity Ty pe Activity Date Activity User E-Sign Co-Sign Detail Recorded Client Recorded Date Recorded By Document 03/21/18 15:45 DV [id number] 03/21/18 15:51 DV Wound Center Nurse 2 #2 left borja -Time 15:45 -Post De bridement Size (cm) - Length 1.1 Wound debrided: left borja Laterality: Left Type of Debridement: Excisional debridement Anesthesia Used: 4% Lidocaine Solution, 5% Lidocaine Gel Depth: Down to and inc luding healthy tissue, in the subcutaneous layer Percentage of wound debrided: 100 Instrument Used: 5mm curette Tissue Removed: yellow slough, devitalized tissue Severity: Fat Layer Exposed Amount of bl eeding with debridement: Mild Bleeding Controlled with: Compression and gauze Patient tolerated procedure well Assessment/Plan Active Problems Ulcer of left borja with fat layer exposed (Acute) Venous ulcer of left lower extremity without varicose veins (Acute) Schizophrenia (Acute) COPD (chronic obstructive pulmonary disease) (Chronic) Type II diabetes mellitus (Chronic) Bilateral leg edema (Chronic ) Assessment: nonhealing wound left borja. venous ulcer left borja. b/l LE edema. DM type II Plan: Ajit's wound was evaluated and debrided today. His previous testing was reviewed. Will treat his wound with Caron dressings changed daily and advised him to wear his compression stockings. If there is difficulty with healing would repeat his arterial studies. Encouraged increased protein, elevation of L E and wearing compression stockings while awake and removing at bedtime. F/U in 1 week. 03/21/182047 <Electronically signed by Samantha Manuel DO> Date Samantha Manuel DO CC: Signed 30-Nov-2017 Emergency Department Summary Result: Comments: See Note; NOTES: [facility] Medical Records Department [address] [place] [address] Emergency Department Summary 11/26/17 1320 MR#: [id number] Acct: [id number] Name: AJIT SOSA Rep #: [id number] : 1955 62 From: Blayne Caldwell DO PCP: Dhara Taylor DO Status: DEP ER - ER Visit Summary Date of Service: 11/26/17 Chief Complaint: [Bilateral leg edema and er ythema] History of Present Illness: The patient is a 62 M [presents the emergency department chief complaint of red swollen legs 3-4 months. Patient states that he was seen at urgent care today and was advised to come to the emergency department. Patient denies any fever. Denies any injury to his legs. He denies recent travel or surgery. Patient relates a history years ago of sepsis from strep relate d to a left foot wound that required debridement. Patient has a history of diabetes, hypertension, COPD, seizure disorder, and sepsis history.] Physical Examination: [HEENT-PERRLA, EOMI. Cranial nerves II through XII grossly intact. TMs clear. Mucous membranes moist. No adenopathy. Cardiovascular-regular rate and rhythm without murmur or ectopy Lungs-clear to auscultation, chest wall stable without crepitus or subcu emphysema Abdomen-normoactive bowel sounds, soft, nontender, no rebound or rigidity, no peritoneal signs. Extremities-intact 4, normal range of motion, normal pulses, atraumatic]. P atient has diffuse erythema of both lower extremities below the knee and down to both feet. Lower extremities are warm to the touch. Normal pulses palpated in both lower extremities. Test Results: [Les ous duplex of both lower extremities were negative for DVT. CBC with differential showed a white blood cell count of 6.7, hemoglobin 14, hematocrit 42, platelets 185. Chemistries unremarkable.] Emergen cy Department Course and Treatment: [Patient was medicated with Unasyn 3 g IV.] Treatment Plan: [Patient will be treated with Keflex and advised to follow-up with his primary care physician within the next 3-5 days. Patient to return if fever, increased redness or swelling, or condition should worsen in any way.] Disposition: [Discharged to home in stable condition.] Impression: [Bilateral lower ex tremity cellulitis] This note was generated with R&V dictation software. It may contain incorrect words, spelling, and punctuation that were not noted in review of the chart prior to signing ED Disposition - Plan for ED Patient: Chief Complaint: Cellulitis Referrals: Dhara Taylor DO [Primary Care Provider] - What to do if you have Problems For any increased pain, shortness of breath, bleeding, nausea or vomiting, chest pain, or any unexpected problems, contact your Primary Care Provider. Call [facility] ([phone]) or report to the closest Emergency Room. Call 911 if necess krish. 11/30/17 9125 <Electronically signed by Blayne Caldwell DO> Date Blayne Caldwell DO Cosigner Signature (If Indicated): Date _ CC: Dhara Taylor 26-Nov-2017 Venous Duplex Lower Extremity Result: Comments: See Note; [facility] [facility] Cardiovascular Services [address] [place] [address] Venous Duplex US - Kane Extrem 11/26/17 1349 MR#: [id number] Acct: [id number] Name: AJIT SOSA Rep #: [id number] : 1955 62 From: Roger Carney MD Attending Dr: Status: DEP ER Ordering Dr: Blayne Caldwell DO Date: 11/26/17 Location: ED Sex: M C Admitted: Reason For Study: s welling RIGHT LEFT GSV is normal. GSV is normal. CFV is compressible, spontaneous, phasic, CFV is compressible, spontaneous, phasic, competent and demonstrates normal competent, and demonstrates normal augmentation. augmentation. FV is compressible, spontaneous, phasic, FV is compressible, spontaneous, phasic, competent and demonstrates normal competent and demonstrates normal augmentation. augmentat ion. POP V is compressible, spontaneous, phasic, POP V is compressible, spontaneous, phasic, competent and demonstrates normal competent and demonstrates normal augmentation. augmentation. T/P Trunk is compressible. T/P Trunk is compressible. PTV is compressible. PTV is compressible. RT PerV is compressible. LT PerV is compressible. Procedure Exam performed portable in ED. The exam was diagnostic. A p reliminary report was called and/or faxed to Dr. Caldwell. Interpretation Summary No evidence for acute deep venous thrombosis bilateral lower extremities with patent and compressible bilateral great saph enous veins. Ordering Physician: Blayne Caldwell Performed By: Sukhjinder Rodriguez RVT 11/26/17 1522 Date Roger Carney MD CC: Dhara Taylor DO; Blayne Caldwell DO Date Dictated: 1349 Date Transcribed: 11/26/17 1522 Floor Renovator: Signed 26-Nov-2017 Discharge Instruction Result: Comments: See Note; NOTES: [facility] Medical Records Department [address] [place] [address] Discharge Instruction 11/26/17 1435 MR#: [id number] Acct: [id number] Name: Rolando SOSA Rep #: [id number] : 1955 62 From: Blayne Caldwell DO PCP: Dhara Taylor DO Status: REG ER ED Disposition - Plan for ED Patient: Chief Complaint: Cellulitis Instructions: Discharge Instru ctions for Cellulitis Prescriptions: Cephalexin [Keflex] 500 mg PO Q6 #40 cap Referrals: Dhara Taylor DO [Primary Care Provider] - 3-5 Days What to do if you have Problems For any increased pain , shortness of breath, bleeding, nausea or vomiting, chest pain, or any unexpected problems, contact your Primary Care Provider. Call [facility] ([phone]) or report to the closest Emergency R oom. Call 911 if necessary. 11/26/17 1436 <Electronically signed by Blayne Caldwell DO> Date Blayne Caldwell DO Cosigner Signature (If Taylor cated): Date CC: Dhara Taylor DO 24-Aug-2017 Emergency Department Summary Result: Comments: See Note; NOTES: [facility] Medical Records Department [address] [facility] [place] [address] Emergency Department Summary 08/24/17 1433 MR#: [id number] Acct: [id number] Name: AJIT SOSA Rep #: [id number] : 1955 61 From: Hill Carrington DO PCP: Dhara Taylor DO Status: DEP ER - ER Visit Summary Date of Service: 08/24/17 Chief Complaint: [] Generalized illness Hist ory of Present Illness: The patient is a 61 M [] with a history of schizoaffective disorder presenting today with multiple URI type symptoms. Patient denies fever, chest pain, shortness of breath. He re ports nasal drainage, slight rash to his right lower extremity, fatigue, a few episodes of diarrhea prior to arrival. He has unusual affect and is difficult to get history at times because of his unorga nized thought process. He reports he lives in a skilled nursing and is receiving scheduled Risperdal and other antipsychotic medications. Physical Examination: [] Cardiovascular exam is regular rate and rhy thm, lungs are clear to auscultation, abdomen soft nontender. There is no obvious rash to the lower extremities. Test Results: [] Emergency Department Course and Treatment: [] Patient refused diagnosti c testing including chest x-ray. I did not feel that he warranted any laboratory testing with his very benign examination. Treatment Plan: [] The patient will be discharged to follow-up with PCP. Disp osition: [] Discharge to follow-up with PCP. Stable. Impression: [] URI History of schizoaffective disorder This note was generated with R&V dictation software. It may contain incorrect words, spel ling, and punctuation that were not noted in review of the chart prior to signing ED Disposition - Plan for ED Patient: Chief Complaint: General Illness Referrals: Dhara Taylor DO [Primary Care P wes] - What to do if you have Problems For any increased pain, shortness of breath, bleeding, nausea or vomiting, chest pain, or any unexpected problems, contact your Primary Care Provider. Call [facility] ([phone]) or report to the closest Emergency Room. Call 911 if necessary. 08/24/17 1539 <Electronically signed by Hill Carrington DO> Date Hill Carrington DO Cosigner Signature (If Indicated): Date CC: Dhara Taylor DO 03-Apr-2017 Emergency Department Summary Result: Comments: See Note; NOTES: [facility] Medical Records Department [address] [place] [address] Emergency Department Summary MR#: [id number] Acct: [id number] Name: AJIT SOSA Rep #: [id number] : 1955 61 From: Wero Keating MD PCP: Dhara Taylor DO Status: [facility] ER DATE OF SERVICE: 03/30/2017 CHIEF COMPLAINT: Agitated. HISTORY OF PRESENT ILLNESS: The patient states he is not sure if he is suicidal or not. Sometimes he is, sometimes he is not. He says probably it is just panic attack. He does not feel like he is on the right medications. He does not feel like his psychiatrist is helping. He accuses his psychiatrist of being communist with a communist website. He does not actually say he is homicidal. He just does not feel any one is helping him, very paranoid ab out this and he actually said she is trying to kill me. He has a history of schizoaffective disorder, which he denies COPD, diabetes. He is on Depakote, Haldol, and Klonopin. PHYSICAL EXAMINATION: VITAL SIGNS: Stable. HEENT: Normal. Mucous membranes slightly dry. NECK: Supple. No adenopathy. HEART: Regular, normal S1, S2. ABDOMEN: Soft. No pain on palpation. SKIN: Good skin turgor, motor tone, hydration. No signs of trauma. NEUROLOGICAL: A little unkempt, but alert and oriented x3. Gait normal. No sign of focal neurological deficits, but some pressured flight of ideas type speech, poor insight. He denies suicidal ideation at this time. TREATMENT: The patient's medical clearance show normal EKG at 65, unchanged from September 21. CBC, chemistries normal. Depakote was just minim ally subtherapeutic at 49. Tox was negative. Alcohol negative. We gave him his Haldol and Cogentin, his night dose. Crisis physician representative came over, fully evaluated the patient and is having him transfe rred to [facility], accepted by Dr. Huertas, appropriate emergency application, paperwork, labs and reports were given. The patient is stable for transfer. DIAGNOSIS: Acute paranoia. Obed Recinos C: Dhara Taylor DO T: [facility] JOB: [id number] 04/03/17 0806 <Electronically signed by Wero Keating MD> Date Wero Keating MD Cosigner Signature (If Indicated): Date CC: Dhara Taylor DO Date Dictated: 03/30/172204 Date Transcribed: 03/30/172204 Floor Renovator: Signed 02-Apr-2017 12 Lead Electrocardiogram Result: Comments: See Note; NOTES: [facility] Cardiovascular Services [address] [place], [place] [address] [address] 12 Lead EKG 03/30/172007 MR#: [id number] Acct: [id number] Name: AJIT SOSA Rep # : [id number] : 1955 61 From: Moises Richard MD Attending Dr: Status: DEP ER Ordering Dr: Wero Keating MD Date: 03/30/17 Location: ED Sex: M C Admitted: Test Reason : MENTAL Blood Pressure : /* mmHG Vent. Rate : 065 BPM Atrial Rate : 065 BPM P-R Int : 154 ms QRS Dur : 074 ms QT Int : 390 ms P-R-T Axes : 074 070 071 degrees QTc Int : 405 ms Normal sinus rhythm Normal ECG Confirmed by MOISES RICHARD MD ([id number]), staff editor DANNA LIZAMA ([id number]) on 04/02/2017 2:26:02 PM Referred By: [facility] Confirmed By:MOISES RICHARD MD 04/02/17 1426 Date Moises Abdul CC: Dhara Taylor DO Date Dictated: 03/30/172007 Date Transcribed: 03/30/172007 Floor Renovator: Signed 17-Oct-2016 Emergency Department Summary Result: Comments: See Note; NOTES: [facility] Medical Records Department [address] [place] [address] Emergency Department Summary MR#: [id number] Acct: [id number] Name: AJIT SOSA Rep #: [id number] : 1955 60 From: Prakash Loza MD PCP: Dhara Taylor DO Status: DEP ER DATE OF SERVICE: 09/25/2016 METHOD OF ARRIVAL: EMS. CHIEF COMPLAINT: Delusions and paranoia. HIST ORY OF PRESENT ILLNESS: A 60-year-old male patient of Dr. Marshall who [facility] because he is having delusions and is paranoid and is aggressive. I am unable to obtain an ything of use from the patient. PHYSICAL EXAMINATION: GENERAL: Reveals alert male in no acute distress. VITAL SIGNS: 96.1, 179/114, 56, 17, 98% on room air. He is not hypoxic. PSYCH: Significant physic al exam findings include the psychiatric exam. The patient appears his stated age. He has good posture and grooming. He makes good eye contact. He has increased rate with normal volume of speech. He den ies any suicidal or homicidal ideation, any auditory or visual hallucinations. He clearly has yazidi delusions. Insight and judgment is poor. The remainder of the physical exam is unremarkable. Plea se see T-sheet for details. EMERGENCY DEPARTMENT COURSE: The patient is treated with a Geodon IM. He had screening labs that were unremarkable. He was discussed with the [facility] and they have arranged for him to be transferred to a psychiatric facility. DISPOSITION: Home, stable condition. IMPRESSION: 1. Paranoid delusions. MD Patel Lowe C: [facility] T: [facility] JOB: [id number] 10/17/16 1719 <Electronically signed by Prakash Loza MD> Date Prakash Loza MD Cosigner Signature (If Indicated): Date __ CC: Dhara Taylor DO Date Dictated: 10/09/16615 Date Transcribed: 10/09/16615 Floor Renovator: Signed 27-Sep-2016 12 Lead Electrocardiogram Result: Comments: See Note; NOTES: [facility] Cardiovascular Services [address] [place] [address] 12 Lead EKG 09/25/16 2218 MR#: [id number] Acct: [id number] Name: AJIT SOSA Rep # : [id number] : 1955 60 From: Reji Hill MD Attending Dr: Status: DEP ER Ordering Dr: Gabriela Barrett MD Date: 09/25/16 Location: ED Sex: M C Admitted: Test Reason : MHC Blood Pressure : / mmHG Vent. Rate : 086 BPM Atrial Rate : 086 BPM P-R Int : 144 ms QRS Dur : 068 ms QT Int : 364 ms P-R-T Axes : 088 071 066 degrees QTc Int : 435 ms Sinus rhythm with marked sinus arrhythmia Nonspe cific ST abnormality Abnormal ECG Confirmed by REJI HILL ([id number]), staff editor DANNA LIZAMA ([id number]) on 09/27/2016 12:52:12 PM Referred By: [facility] Confirmed By:REJI HILL 09/27/16 1252 Date Reji Hill MD CC: Dhara Taylor DO Date Dictated: 09/25/162217 Date Transcribed: 09/25/162217 Floor Renovator: Signed 25-Sep-2016 12 Lead Electrocardiogram Result: Comments: See Note; NOTES: [facility] Cardiovascular Services [address] [place] [address] 12 Lead EKG 09/23/16142 MR#: [id number] Acct: [id number] Name: AJIT SOSA Rep # : [id number] : 1955 60 From: Ajit Benavidez MD Attending Dr: Status: DEP ER Ordering Dr: Quentin Bustos MD Date: 09/23/16 Location: ED Sex: M C Admitted: Test Reason : Blood Pressure : / mmHG Vent. Rate : 119 BPM Atrial Rate : 119 BPM P-R Int : 150 ms QRS Dur : 076 ms QT Int : 328 ms P-R-T Axes : 082 075 063 degrees QTc Int : 461 ms Sinus tachycardia Right atrial enlargement Nonsp ecific ST segment abnormality Confirmed by PRAMOD ALSTON, AJIT ([id number]), staff editor DANNA LIZAMA ([id number]) on 09/25/2016 10:18:06 AM Referred By: DR BUSTOS Confirmed By:AJIT BENAVIDEZ MD 09/25/16 1018 Date ___ Ajit Benavidez MD CC: Dhara Taylor DO Date Dictated: 09/23/16142 Date Transcribed: 09/23/16142 Floor Renovator: Signed 23-Sep-2016 Emergency Department Summary Result: Comments: See Note; NOTES: [facility] Medical Records Department [address] [place] [address] Emergency Department Summary MR#: [id number] Acct: [id number] Name: AJIT SOSA Rep #: [id number] : 1955 60 From: Quentin Bustos MD PCP: Dhara Taylor DO Status: DEP ER DATE OF SERVICE: 09/23/2016 CHIEF COMPLAINT: Foot pain. HISTORY OF PRESENT ILLNESS: A 60-year-old male with history of schizophrenia and chronic venous stasis, presents with foot pain. The patient was initially registered as abdominal pain, but states he has never had abdominal pain. The patient has a longstanding history of schizophrenia, does follow Dr. Marshall and is on medication. His history is hard to follow as he does have flight of ideas at baseline. He states that he has had foot infecti ons since 2011. On review of the records, he was actually admitted at that time for cellulitis and venous stasis. He had debridement by podiatry and was discharged with antibiotics. He states that from time to time he will get increasing pain. He states that he has had this same pain for about 4 months, but states he wanted to have it evaluated tonight. The patient is very tangential in his thought pr ocess. He will talk about his feet and then shift to talking about the MINE or various blogs that he has online. He denies any fevers or chills. He denies nausea or vomiting. He is still walking daily. Yu palmer is a diabetic, but is not insulin-dependent. PHYSICAL EXAMINATION: VITAL SIGNS: Tachycardic, otherwise vitals unremarkable. GENERAL: Unkempt male in no acute distress. HEENT: Head is normocephalic, a traumatic. Pupils equal, round and reactive. Extraocular muscles intact. NECK: Supple. HEART: Regular, tachycardia. LUNGS: Clear. ABDOMEN: Soft. EXTREMITIES: The patient has 2+ symmetric lower extremity pulses. There is 1+ symmetric edema. There are no palpable cords. He does have some redness of both anterior shins, which does appear to be chronic venous stasis. He also has minimal erythema of the to es, which is symmetric and bilateral. There is no significant cellulitis. There is no streaking. There are no palpable cords or evidence of acute vascular compromise. EMERGENCY DEPARTMENT COURSE: The rolando prasad does have flight of ideas and history of schizophrenia. I did obtain a metabolic workup along with a drug and alcohol tox. Crisis was actually here evaluating someone else. They are very familiar with him. I did have them speak with the patient. He is at his baseline. He has been compliant with his medications actually has them on him in an acute dose type dispenser and has been taking them. I did obtain screening labs. He has no significant leukocytosis. Rest of his blood work is unremarkable. The patient does have delusions and paranoia, but this is baseline with his schizophrenia. He is me eting his basic needs. His blood sugars well maintained. He is hydrated. He is eating. The schizophrenia is a chronic issue, but he is not acutely decompensated. As far as his lower extremity, I feel th is is likely just chronic venous stasis. Given his history with the erythema and history of infection, I am going to place him on Keflex. He does admit to some mild increasing pain. I do not feel this rolando prasad needs to be hospitalized given the chronicity of his symptoms, unremarkable examination and normal lab workup. He will be discharged. IMPRESSION: 1. Bilateral lower extremity venous stasis. 2. S chizophrenia. DISPOSITION: Discharged. Quentin Bustos MD T: [facility] JOB: [id number] 09/23/16 0539 <Electronically signed by Quentin Bustos MD> Date Quentin Bustos MD Cosigner Signature (If Indicated): Date CC: Dhraa Taylor DO Date Dictated: 09/23/16238 Date Transcribed: 09/23/16238 Floor Renovator: Signed 23-Sep-2016 Discharge Instruction Result: Comments: See Note; NOTES: [facility] Medical Records Department [address] [place] [address] Discharge Instruction 09/23/16 0234 MR#: [id number] Acct: [id number] Name: RERolando DENISEOmayra Clay Rep #: [id number] : 1955 60 From: Quentin Bustos MD PCP: Dhara Taylor DO Status: DEP ER ED Disposition - Plan for ED Patient: Chief Complaint: Abd Pain Instructions: ED Leg Swelling Bilateral Prescriptions: Cephalexin [Keflex] 500 mg PO Q6 #40 capsule Referrals: Dhara Taylor DO [Primary Care Provider] - What to do if you have Problems For any increased pain, shortness of b reath, bleeding, nausea or vomiting, chest pain, or any unexpected problems, contact your Primary Care Provider. Call [facility] ([phone]) or report to the closest Emergency Room. Call 911 if necessary. 09/23/16 0308 <Electronically signed by Quentin Bustos MD> Date Quentin Bustos MD Cosigner Signature (If Indicated): Da te CC: Dhara Taylor DO 11-May-2016 Emergency Department Summary Result: Comments: See Note; NOTES: [facility] Medical Records Department [address] [facility] [place] [address] Emergency Department Summary MR#: [id number] Acct: [id number] Name: SOSAAJIT Obed Rep #: [id number] : 1955 60 From: Fina Barry MD PCP: Dhara Taylor DO Status: DEP ER DATE OF SERVICE: 05/09/2016 CHIEF COMPLAINT: Depressed mental status. HISTORY OF PRESENT ILLNESS: This is a 60-year-old male with a history of schizophrenia and other mental health issues. 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 Nothing else is particularly out of the ordinary and there are no very new medicines or anything of the sort. He does smoke cigarettes. PHYSICAL EXAMINATION LUNGS: He espinoza s some wheezing in lung mccarthy, but no respiratory distress. He speaks in full sentences and has nonlabored breathing. HEART: Rate is regular without murmurs. NEUROLOGIC: He is alert and he is orient ed x3. He is cooperative and pleasant. Denies suicidal or homicidal ideation. CLINICAL COURSE AND DECISION MAKING: CBC and chemistry are unremarkable. Depakote level was relatively low at 33. Toxins in alcohol were negative. The patient has no headache. He does not have any neurologic findings. There is no history of trauma or injury, so he did not feel that CT scanning was indicated at this ti me. Clinically, he is well-appearing and I can find no abnormalities, lab skinner. He and his caregiver were reassured. He is alert and appropriate to me now and I suggested that he follow up with mental health, as he is on a number of medications, which could cause him to have a depressed mental state including Depakote. DISPOSITION: Discharge. DIAGNOSIS: Mental health evaluation. Fina valdovinos MD T: [facility] JOB: [id number] 05/11/16 0946 <Electronically signed by Fina Barry MD> Date Fina Barry MD Cosigner Signature (If Indicated): Date CC: Dhara Taylor DO Date Dictated: 05/09/16 1140 Date Transcribed: 05/09/16 1140 Floor Renovator: Signed 09-May-2016 Discharge Instruction Result: Comments: See Note; NOTES: [facility] Medical Records Department [address] [place] [address] Discharge Instruction 05/09/16 1130 MR#: [id number] Acct: [id number] Name: AJIT SOSA Rep #: [id number] : 1955 60 From: Fina Barry MD PCP: Dhara Taylor DO Status: REG ER ED Disposition - Plan for ED Patient: Chief Complaint: General Illness Ins tructions: ED Schizophrenia, General Referrals: Dhara Taylor DO [Primary Care Provider] - 3-5 Days What to do if you have Problems For any increased pain, shortness of breath, bleeding, naus ea or vomiting, chest pain, or any unexpected problems, contact your doctor. Call [facility] ([phone]) or report to the closest Emergency Room. Call 911 if necessary. 05/09/16 1131 &am p;#60;Electronically signed by Fina Barry MD> Date Fina Barry MD Cosigner Signature (If Indicated): Date CC: Dhara Taylor DO 05-Aug-2015 EKG ([id number]) Comments: nsr no acutechg Result: [MEASUREMENTS ANALYSIS] Date of Test: 08/05/2015 11:03:50; Heart Rate: 63; AL Interval: 158; QRS: 90; QT Interval: 382; Corrected QT Interval (QTc): 387; P Wave [place]: 65; QRS Wave [place]: 69; T Wave [place]: 90; Blood Pressure: 158/94 [ECG DIAGNOSTIC STATEMENTS] Date of Test: 08/05/2015 11:03:50; Summary: Sinus Rhythm - Nonspecific T-abnormality. ABNORMAL Family History Unknown Family Member Name Dates Details Alcohol Abuse Status: Active Anxiety Disorder Status: Active Depression Status: Active Diabetes Mellitus Type II Status: Active Drug Abuse Status: Active Heart Disease Status: Active Hypertension Status: Active Lung/Respiratory Disease Status: Active Social History Name Dates Details Alcohol Use: Non Drinker / No Alcohol Use. Status: Active Caffeine Use Comments: 4-7 qd Status: Active Drug Use: Uses marijuana. Status: Active Exercise History: Does not exercise. Status: Active Living Situation: Lives with relatives. Status: Active Pets/Animals Status: Active Tobacco use Comments: 2-3ppd Status: Active Vital Signs Date Test Result Details :60 Temperature 98.4 f Comments: Method: Temporal Pulse 109 /min Comments: Pattern: Regular Respiration Rate 18 /min Comments: Pattern: Unlabored O2 SAT 96 % Comments: Room air BP Systolic 150 mm[Hg] Comments: Patient Position: Sitting; Cuff Location: Left Arm; Cuff Size: Standard BP Diastolic 88 mm[Hg] Comments: Patient Position: Sitting; Cuff Location: Left Arm; Cuff Size: Standard Weight 199 lb Height 70 in Body Mass Index Calculated 28.55 kg/m2 Body Surface Area Calculated 2.08 m2 :28 Temperature 98.6 f Comments: Method: Temporal Pulse 99 /min Comments: Pattern: Regular Respiration Rate 20 /min Comments: Pattern: Unlabored O2 SAT 98 % Comments: Room air BP Systolic 138 mm[Hg] Comments: Patient Position: Sitting; Cuff Location: Left Arm; Cuff Size: Large BP Diastolic 92 mm[Hg] Comments: Patient Position: Sitting; Cuff Location: Left Arm; Cuff Size: Large Weight 193 lb Height 70 in Body Mass Index Calculated 27.69 kg/m2 Body Surface Area Calculated 2.06 m2 :47 Temperature 97.8 f Comments: Method: Temporal Pulse 104 /min Comments: Pattern: Regular Respiration Rate 20 /min Comments: Pattern: Unlabored O2 SAT 98 % Comments: Room air BP Systolic 140 mm[Hg] Comments: Patient Position: Sitting; Cuff Location: Left Arm; Cuff Size: Standard BP Diastolic 80 mm[Hg] Comments: Patient Position: Sitting; Cuff Location: Left Arm; Cuff Size: Standard Weight 192 lb Height 70 in Body Mass Index Calculated 27.55 kg/m2 Body Surface Area Calculated 2.05 m2 :36 Temperature 97.7 f Comments: Method: Temporal Pulse 76 /min Comments: Pattern: Regular Respiration Rate 16 /min Comments: Pattern: Unlabored O2 SAT 97 % Comments: Room air BP Systolic 132 mm[Hg] Comments: Patient Position: Sitting; Cuff Location: Left Arm; Cuff Size: Standard BP Diastolic 80 mm[Hg] Comments: Patient Position: Sitting; Cuff Location: Left Arm; Cuff Size: Standard Weight 197 lb Height 70 in Body Mass Index Calculated 28.27 kg/m2 Body Surface Area Calculated 2.07 m2 [id number]-Pac-450910:12 Pulse 97 /min Comments: Pattern: Regular Respiration Rate 18 /min Comments: Pattern: Unlabored O2 SAT 97 % Comments: Room air BP Systolic 142 mm[Hg] Comments: Patient Position: Sitting; Cuff Location: Left Arm; Cuff Size: Large BP Diastolic 84 mm[Hg] Comments: Patient Position: Sitting; Cuff Location: Left Arm; Cuff Size: Large Weight 204.5 lb Height 70 in Body Mass Index Calculated 29.34 kg/m2 Body Surface Area Calculated 2.11 m2 :47 Pulse 116 /min Comments: Pattern: Regular Respiration Rate 18 /min Comments: Pattern: Unlabored O2 SAT 96 % Comments: Room air BP Systolic 144 mm[Hg] Comments: Patient Position: Sitting; Cuff Location: Left Arm; Cuff Size: Large BP Diastolic 86 mm[Hg] Comments: Patient Position: Sitting; Cuff Location: Left Arm; Cuff Size: Large Weight 204 lb Height 70 in Body Mass Index Calculated 29.27 kg/m2 Body Surface Area Calculated 2.11 m2 :21 Comments: Rech 162/86 Temperature 97.3 f Pulse 97 /min Comments: Pattern: Regular Respiration Rate 18 /min Comments: Pattern: Unlabored O2 SAT 97 % Comments: Room air BP Systolic 170 mm[Hg] Comments: Patient Position: Sitting; Cuff Location: Left Arm; Cuff Size: Standard BP Diastolic 88 mm[Hg] Comments: Patient Position: Sitting; Cuff Location: Left Arm; Cuff Size: Standard Weight 203.125 lb Height 70 in Body Mass Index Calculated 29.15 kg/m2 Body Surface Area Calculated 2.1 m2 :45 Pulse 83 /min Comments: Pattern: Regular Respiration Rate 18 /min Comments: Pattern: Unlabored O2 SAT 95 % Comments: Room air BP Systolic 122 mm[Hg] Comments: Patient Position: Sitting; Cuff Location: Left Arm; Cuff Size: Large BP Diastolic 84 mm[Hg] Comments: Patient Position: Sitting; Cuff Location: Left Arm; Cuff Size: Large Weight 203.125 lb Height 70 in Body Mass Index Calculated 29.15 kg/m2 Body Surface Area Calculated 2.1 m2 :58 Temperature 96.8 f Comments: Method: Temporal Pulse 97 /min Comments: Pattern: Regular Respiration Rate 16 /min Comments: Pattern: Unlabored O2 SAT 97 % Comments: Room air BP Systolic 146 mm[Hg] Comments: Patient Position: Sitting; Cuff Location: Left Arm; Cuff Size: Large BP Diastolic 92 mm[Hg] Comments: Patient Position: Sitting; Cuff Location: Left Arm; Cuff Size: Large Weight 199.5 lb Height 70 in Body Mass Index Calculated 28.62 kg/m2 Body Surface Area Calculated 2.09 m2 :50 Pulse 85 /min Comments: Pattern: Regular Respiration Rate 18 /min Comments: Pattern: Unlabored O2 SAT 92 % Comments: Room air BP Systolic 166 mm[Hg] Comments: Patient Position: Standing; Cuff Location: Left Arm; Cuff Size: Large BP Diastolic 78 mm[Hg] Comments: Patient Position: Standing; Cuff Location: Left Arm; Cuff Size: Large Weight 196 lb Height 70 in Body Mass Index Calculated 28.12 kg/m2 Body Surface Area Calculated 2.07 m2 :13 Temperature 97.6 f Pulse 74 /min Comments: Pattern: Regular Respiration Rate 16 /min Comments: Pattern: Unlabored O2 SAT 96 % Comments: Room air BP Systolic 122 mm[Hg] Comments: Patient Position: Sitting; Cuff Location: Left Arm; Cuff Size: Standard BP Diastolic 80 mm[Hg] Comments: Patient Position: Sitting; Cuff Location: Left Arm; Cuff Size: Standard Weight 188.125 lb Height 70 in Body Mass Index Calculated 26.99 kg/m2 Body Surface Area Calculated 2.03 m2 :06 Pulse 106 /min Comments: Pattern: Regular Respiration Rate 18 /min Comments: Pattern: Unlabored O2 SAT 95 % Comments: Room air BP Systolic 138 mm[Hg] Comments: Patient Position: Sitting; Cuff Location: Left Arm; Cuff Size: Standard BP Diastolic 80 mm[Hg] Comments: Patient Position: Sitting; Cuff Location: Left Arm; Cuff Size: Standard Weight 188.125 lb Height 70 in Body Mass Index Calculated 26.99 kg/m2 Body Surface Area Calculated 2.03 m2 :46 BP Systolic 128 mm[Hg] Comments: Patient Position: Sitting; Cuff Location: Left Arm; Cuff Size: Standard BP Diastolic 70 mm[Hg] Comments: Patient Position: Sitting; Cuff Location: Left Arm; Cuff Size: Standard :08 Temperature 97.9 f Comments: Method: Temporal Pulse 110 /min Comments: Pattern: Regular Respiration Rate 20 /min Comments: Pattern: Unlabored O2 SAT 95 % Comments: Room air BP Systolic 162 mm[Hg] Comments: Patient Position: Sitting; Cuff Location: Left Arm; Cuff Size: Standard BP Diastolic 80 mm[Hg] Comments: Patient Position: Sitting; Cuff Location: Left Arm; Cuff Size: Standard Weight 192 lb Height 70 in Body Mass Index Calculated 27.55 kg/m2 Body Surface Area Calculated 2.05 m2 :27 Temperature 97.5 f Comments: Method: Temporal Pulse 98 /min Comments: Pattern: Regular Respiration Rate 18 /min Comments: Pattern: Unlabored O2 SAT 97 % Comments: Room air BP Systolic 124 mm[Hg] Comments: Patient Position: Sitting; Cuff Location: Left Arm; Cuff Size: Standard BP Diastolic 78 mm[Hg] Comments: Patient Position: Sitting; Cuff Location: Left Arm; Cuff Size: Standard Weight 192 lb Height 70 in Body Mass Index Calculated 27.55 kg/m2 Body Surface Area Calculated 2.05 m2 :19 Temperature 97.2 f Pulse 92 /min Comments: Pattern: Regular Respiration Rate 17 /min Comments: Pattern: Unlabored O2 SAT 94 % Comments: Room air BP Systolic 112 mm[Hg] Comments: Patient Position: Sitting; Cuff Location: Left Arm; Cuff Size: Standard BP Diastolic 78 mm[Hg] Comments: Patient Position: Sitting; Cuff Location: Left Arm; Cuff Size: Standard Weight 178.375 lb Height 70 in Body Mass Index Calculated 25.59 kg/m2 Body Surface Area Calculated 1.99 m2 :22 Temperature 97.8 f Pulse 92 /min Comments: Pattern: Regular Respiration Rate 17 /min Comments: Pattern: Unlabored O2 SAT 95 % Comments: Room air BP Systolic 112 mm[Hg] Comments: Patient Position: Sitting; Cuff Location: Left Arm; Cuff Size: Standard BP Diastolic 78 mm[Hg] Comments: Patient Position: Sitting; Cuff Location: Left Arm; Cuff Size: Standard Weight 178.375 lb Height 70 in Body Mass Index Calculated 25.59 kg/m2 Body Surface Area Calculated 1.99 m2 :58 Pulse 106 /min Comments: Pattern: Regular Respiration Rate 18 /min Comments: Pattern: Unlabored O2 SAT 92 % Comments: Room air BP Systolic 122 mm[Hg] Comments: Patient Position: Sitting; Cuff Location: Left Arm; Cuff Size: Standard BP Diastolic 78 mm[Hg] Comments: Patient Position: Sitting; Cuff Location: Left Arm; Cuff Size: Standard Weight 178.375 lb Height 70 in Body Mass Index Calculated 25.59 kg/m2 Body Surface Area Calculated 1.99 m2 :37 Pulse 93 /min Comments: Pattern: Regular Respiration Rate 20 /min Comments: Pattern: Unlabored O2 SAT 98 % Comments: Room air BP Systolic 118 mm[Hg] Comments: Patient Position: Sitting; Cuff Location: Left Arm; Cuff Size: Large BP Diastolic 78 mm[Hg] Comments: Patient Position: Sitting; Cuff Location: Left Arm; Cuff Size: Large Weight 179.375 lb Height 70 in Body Mass Index Calculated 25.74 kg/m2 Body Surface Area Calculated 1.99 m2 :09 Temperature 97.1 f Comments: Method: Temporal Pulse 78 /min Comments: Pattern: Regular Respiration Rate 18 /min Comments: Pattern: Unlabored O2 SAT 94 % Comments: Room air BP Systolic 158 mm[Hg] Comments: Patient Position: Sitting; Cuff Location: Left Arm; Cuff Size: Standard BP Diastolic 94 mm[Hg] Comments: Patient Position: Sitting; Cuff Location: Left Arm; Cuff Size: Standard Weight 179.25 lb Height 70 in Body Mass Index Calculated 25.72 kg/m2 Body Surface Area Calculated 1.99 m2 Results Date Description Value Details [id number]:21 Alanine Aminotransferas (SGPT) Comments: [facility] [address] [place], [address] ALT 14 U/L (Abnormal) Range: 16-61 91-Xqo-091029:21 Ammonia Comments: [facility] [address] [place], [address] AMMONIA 12.0 umol/L (Normal) Range: 11-32 04-Zuv-302331:21 AST(SGOT) Comments: [facility] [address] [place], [address] AST 19 U/L (Normal) Range: 15-37 96-Lgg-622840:21 Platelet Count Comments: [address] [place], [place], [address] PLT 182 K/mm3 (Normal) Range: 150-450 12-Uku-698996:21 Prolactin Comments: [facility] [address] [place], [id number] PROLACTIN 20.8 ng/mL (Normal) Comments: NORMAL REFERENCE RANGES FEMALE NON- 2.2 - 30.3 ng/mL 8.1 - 347.6 ng/mL POST-MENOPAUSAL 0.7 - 3 1.5 ng/mL MALE 2.5 - 17.4 ng/mLNEW TEST METHOD AND REFERENCE RANGES FEBRUARY 25, 201223-Jun-201803-Tzp-965614:21 Valproic Acid (Depakene) Level Comments: [facility] [address] [place], [place], [id number] VALPROIC ACID 87 ug/mL (Normal) Range: 50-100 84-Qaz-101425:10 Microscopic Examination Comments: PATIENT WAS FASTINGPERFORMED BY: [employer]70 [facility] [id number] Bacteria None seen (Normal) Mucus Threads Present (Normal) Epithelial Cells (non renal) None seen {/hpf} (Normal) Range: 0 - 10 RBC 0-2 {/hpf} (Normal) Range: 0 - 2 WBC 0-5 {/hpf} (Normal) Range: 0 - 5 93-Tzz-807524:10 TSH (91703) Comments: PATIENT WAS FASTINGPERFORMED BY: e[employer]ov6370 [facility] [id number] TSH 3.840 {uIU/mL} (Normal) Range: 0.450-4.500 37-Anl-007784:10 URINALYSIS, W/ MICRO (35591) Comments: PATIENT WAS FASTINGPERFORMED BY: [employer] Dkkaha6352 [facility] [id number] Microscopic Examination See below: (Normal) Comments: Microscopic was indicated and was performed. Microscopic Examination MICRON (Normal) Comments: Microscopic follows if indicated. Nitrite, Urine Negative (Normal) Urobilinogen,Semi-Qn 0.2 mg/dL (Normal) Range: 0.2-1.0 Bilirubin Negative (Normal) Occult Blood Negative (Normal) Ketones Negative (Normal) Glucose Negative (Normal) Protein Negative (Normal) WBC Esterase Negative (Normal) Appearance Clear (Normal) Urine-Color Yellow (Normal) pH 7.0 (Normal) Range: 5.0-7.5 Specific Ball 1.017 (Normal) Range: 1.005-1.030 80-Kgl-496739:10 MICROALBUMIN: CREATININE RATIO Comments: PATIENT WAS FASTINGPERFORMED BY: [employer] CoatingGallup Indian Medical CenterTqfrez5894 [facility] [id number] (97280) AND (02159) Alb/Creat Ratio 56.7 {mg/g_creat} (Abnormal) Range: 0.0-30.0 Albumin, Urine 51.0 ug/mL (Normal) Creatinine, Urine 90.0 mg/dL (Normal) 21-Box-411240:10 LIPID PANEL (27673) Comments: PATIENT WAS FASTINGPERFORMED BY: [employer] Babkcu9491 [facility] [id number] LDL/HDL Ratio 1.5 {ratio} (Normal) Range: 0.0-3.6 Comments: LDL/HDL Ratio Men Women 1/2 Avg.Risk 1.0 1.5 Av g.Risk 3.6 3.2 2X Avg.Risk 6.2 5.0 3X Avg.Risk 8.0 6.1 LDL Cholesterol Calc 67 mg/dL (Normal) Range: 0-99 VLDL Cholesterol Justo 26 mg/dL (Normal) Range: 5-40 HDL Cholesterol 44 mg/dL (Normal) Triglycerides 130 mg/dL (Normal) Range: 0-149 Cholesterol, Total 137 mg/dL (Normal) Range: 100-199 :30 HgA1C , Office (63095) HgA1C , Office 5.8 % (Normal) Range: 4.6 - 7.1 :30 Blood Glucose , Office (45831) Blood Glucose , Office 123 (Normal) 35-Rar-529109:54 Valproic Acid (24827) Comments: fax results [phone]; PATIENT NOT FASTINGPERFORMED BY: LabCoSaint Michael's Medical CenterAeyddk6003 [facility] [id number] Valproic Acid (Depakote)(R),S 67 ug/mL (Normal) Range: 50-100 Comments: Detection Limit = 4 <4 indicates None Detected . Toxicity may occur at levels of 100-500. Measurements of free unbound valproic acid may improve the assess- ment of clinical response. 38-Fwq-573077:54 CBC WITH MANUAL DIFF Comments: fax results [phone]; PATIENT NOT FASTINGPERFORMED BY: [employer] Gfriuj0819 [facility] [id number] Information: NURSE DRAW (27019) Immature Grans (Abs) 0.0 {x10E3/uL} (Normal) Range: 0.0-0.1 Immature Granulocytes 0 % (Normal) Baso (Absolute) 0.0 {x10E3/uL} (Normal) Range: 0.0-0.2 Eos (Absolute) 0.1 {x10E3/uL} (Normal) Range: 0.0-0.4 Monocytes(Absolute) 0.7 {x10E3/uL} (Normal) Range: 0.1-0.9 Lymphs (Absolute) 1.2 {x10E3/uL} (Normal) Range: 0.7-3.1 Neutrophils (Absolute) 5.0 {x10E3/uL} (Normal) Range: 1.4-7.0 Basos 1 % (Normal) Eos 2 % (Normal) Monocytes 10 % (Normal) Lymphs 17 % (Normal) Neutrophils 70 % (Normal) Platelets 183 {x10E3/uL} (Normal) Range: 150-379 RDW 14.2 % (Normal) Range: 12.3-15.4 MCHC 33.4 g/dL (Normal) Range: 31.5-35.7 MCH 30.1 pg (Normal) Range: 26.6-33.0 MCV 90 fL (Normal) Range: 79-97 Hematocrit 38.6 % (Normal) Range: 37.5-51.0 Hemoglobin 12.9 g/dL (Abnormal) Range: 13.0-17.7 RBC 4.28 {x10E6/uL} (Normal) Range: 4.14-5.80 WBC 7.1 {x10E3/uL} (Normal) Range: 3.4-10.8 07-Ssd-287464:54 Metabolic Panel, Comprehensive Comments: fax results [phone]; PATIENT NOT FASTINGPERFORMED BY: [facility] Centerslin6370 [facility] [id number] (92421) ALT (SGPT) 7 [iU]/L (Normal) Range: 0-44 AST (SGOT) 17 [iU]/L (Normal) Range: 0-40 Alkaline Phosphatase 79 [iU]/L (Normal) Range: 39-117 Bilirubin, Total 0.6 mg/dL (Normal) Range: 0.0-1.2 A/G Ratio 2.5 (Abnormal) Range: 1.2-2.2 Globulin, Total 1.7 g/dL (Normal) Range: 1.5-4.5 Albumin 4.3 g/dL (Normal) Range: 3.6-4.8 Protein, Total 6.0 g/dL (Normal) Range: 6.0-8.5 Calcium 9.6 mg/dL (Normal) Range: 8.6-10.2 Carbon Dioxide, Total 23 mmol/L (Normal) Range: 20-29 Chloride 103 mmol/L (Normal) Range: 96-106 Potassium 4.9 mmol/L (Normal) Range: 3.5-5.2 Sodium 139 mmol/L (Normal) Range: 134-144 BUN/Creatinine Ratio 14 (Normal) Range: 10-24 eGFR If Africn Am 93 mL/min/1.73 (Normal) eGFR If NonAfricn Am 81 mL/min/1.73 (Normal) Creatinine 1.00 mg/dL (Normal) Range: 0.76-1.27 BUN 14 mg/dL (Normal) Range: 8-27 Glucose 107 mg/dL (Abnormal) Range: 65-99 62-Wam-544317:54 AMMONIA (02425) Comments: fax results [phone]; PATIENT NOT FASTINGPERFORMED BY: LabCoSaint Michael's Medical CenterWauqeg3459 [facility] [id number] Ammonia, Plasma 53 ug/dL (Normal) Range: 27-102 3-Zgj-697518:17 Bedside Glucose Comments: [facility] LaboratoryPoint of [address] [place], [place] [address] BEDSIDE GLU 74 mg/dL (Normal) Range: 70-110 Comments: MANAGEMENT OF PATIENT CARE PER NURSING PROTOCOL 8-Kuz-689307:11 Urinalysis, Complete Comments: Order Date: 05/08/18How was Urine Obtained? CLEAN [facility] [address] [place], [address] MUCUS, URINE 0 SEEN {/hpf} (Normal) BACTERIA 0 SEEN {/hpf} (Normal) SQUAM EPI 0 SEEN {/hpf} (Normal) Range: 0-5 RBC-UA 0 SEEN {/hpf} (Normal) Range: 0-5 WBC 0 SEEN {/hpf} (Normal) Range: 0-5 LEUK ESTERASE Negative /ul (Normal) OCCULT BLOOD-UR Negative /ul (Normal) NITRITE UR Negative (Normal) UROBILI Normal mg/dL (Normal) PROT DIPSTX Negative mg/dL (Normal) pH UR 6.0 (Normal) Range: 5.0 - 8.0 SP.GR. DIPSTX 1.015 (Normal) Range: 1.002-1.030 KETONE UR Negative mg/dL (Normal) BILIRUBIN URINE Negative mg/dL (Normal) GLUCOSE, UR Normal mg/dL (Normal) CLARITY Clear (Normal) COLOR Yellow (Normal) 2-Cjk-852842:11 Urine Drug Screen (VISTA) Comments: [facility] [address] [place], [place], [address] THC NEGATIVE (Normal) PCP NEGATIVE (Normal) OPIATES NEGATIVE (Normal) METHADONE NEGATIVE (Normal) ECSTACY POSITIVE (Abnormal) COCAINE NEGATIVE (Normal) BENZODIAZIPINE NEGATIVE (Normal) BARBITIURATES NEGATIVE (Normal) AMPHETAMINES NEGATIVE (Normal) VISTA UDS PH 5 (Normal) TO BE CONFIRMED (Normal) Comments: CONFIRMATORY TESTING FOR ALL POSITIVE URINE DRUG SCREENRESULTS WILL ONLY BE SENT OUT UPON PHYSICIAN ORDER.VISTA Urine Drug Screen methods provide only preliminaryanalytical test results. A more specific alternate chemicalmethod must be used in order to obtain a confirmedanalytical result. Gas chromatography/mass spectrometery(GC/MS) is the preferred confirmatory method. Clinicalconsideration and profe ssional judgement should be appliedto any drug of abuse test result, particularly whenpreliminary positive results are used.URINE TCA TESTING MUST BE ORDERED SEPARATELY. USE TESTMNEMONIC: [facility] 1-Oyn-579806:56 Alcohol, Blood (Medical)-Serum Comments: [facility] [address] [place], [address] SERUM ETOH 5.0 mg/dL (Normal) Comments: The serum:whole blood ethanol ratio is approximately 1.14and varies slightly with hematocrit.Medical Alcohol reference interval and critical value innon-tolerant individuals; 50 - 100 Impairment 100 Intoxication 100 - 250 Severe Poisoning 250 - 400 Deep/possible fatal coma 5-Jhx-329343:56 Basic Metabolic Profile (BMP) Comments: [facility] [address] [place], [address] GAP 3 (Abnormal) Range: 5-15 CO2 32.0 mmol/L (Normal) Range: 21.0-32.0 CL 106 mmol/L (Normal) Range: 98-107 K 4.2 mmol/L (Normal) Range: 3.5-5.1 NA 141 mmol/L (Normal) Range: 136-145 CA 8.7 mg/dL (Normal) Range: 8.5-10.1 BUN/CRE 18.0 {RATIO} (Normal) Range: 10-20 Estimated CRCL 72.16 ml/min (Normal) EST GFR - AA 87 mL/min (Normal) Comments: GFR Calc EST GFR 72 mL/min (Normal) Comments: Non- GFR Calc CREAT,SERUM 1.11 mg/dL (Normal) Range: 0.70-1.30 Comments: The validity of the calculated GFR AND GFRAA in patients over70 years has not been determined. Clinical correlation isessential. BUN 20 mg/dL (Abnormal) Range: 7-18 GLU 79 mg/dL (Normal) Range: 74-106 Comments: Please note revised GLUCOSE reference range xynjxyjrc31/02/2018. 2-Pwi-767047:56 CBC W/Diff, Automated Comments: [facility] [address] [place], [address] Absolute Lymph 1.81 {X10_3/ul} (Normal) Range: 0.83-4.51 Absolute Neut 3.9 {X10_3/uL} (Normal) Range: 2.0-7.7 IM GRAN % 0.300 % (Normal) Range: 0.0-0.9 Comments: IG% - Immature Granulocytes (promyelocytes, myelocytes andmetamyelocytes) > 1% indicates that a LEFT SHIFT is Present. BASO% 0.6 % (Normal) Range: 0-1 EO% 2.4 % (Normal) Range: 0-5 MONO% 11.4 % (Abnormal) Range: 0-10 LY% 27.2 % (Normal) Range: 19-41 NEUT% 58.1 % (Normal) Range: 47-70 MPV 10.1 fL (Normal) Range: 6.2-12.0 PLT 181 K/mm3 (Normal) Range: 150-450 RDW SD 44.4 fL (Abnormal) Range: 35.1-43.9 RDW CV 13.5 % (Normal) Range: 11.6-14.6 MCHC 32.8 {g/gl} (Normal) Range: 32-36 MCH 30.0 pg (Normal) Range: 27.0-32.0 MCV 91.4 fL (Normal) Range: 80-94 HCT 37.2 % (Abnormal) Range: 40-54 HGB 12.2 g/dL (Abnormal) Range: 13.0-16.5 RBC 4.07 {M/mm3} (Abnormal) Range: 4.6-6.2 WBC 6.7 K/mm3 (Normal) Range: 4.4-11.0 :56 Partial Thromboplast Time Comments: [address], [id number] PTT 30.4 s (Normal) Range: 24.1-36.2 :56 Prothrombin Time w/INR Comments: [address] [place], [address] INR 1.2 (Normal) PROTIME 15.4 s (Abnormal) Range: 11.7-14.9 :56 Troponin-I Comments: [address] [place], [address] TROPONIN-I < 0.015 ng/mL (Normal) Comments: TROPONIN-I EXPECTED VALUES <0.045 Negative 0.045 - 0.590 Consistent with Cardiac Damage > OR = 0.600 Critical Value Not every elevated troponin is indicative of NE. T hesevalues should be used with clinical judgement in examiningthe patient's clinical picture for diagnosis. To establisha diagnosis of NE versus myocardial injury, there must be ademonstrated rise and/ or fall in the troponin values, inaddition to ischemic symptoms, EKG changes, new regionalwall motion abnormality, and/or angiographical evidence. PLEASE NOTE: REFERENCE RANGES EDITED 02/17/1808-May-20186-Ekm-768759:56 Valproic Acid (Depakene) Level Comments: [facility] [address] [place], [place], [id number] VALPROIC ACID 85 ug/mL (Normal) Range: 50-100 53-Vzj-237830:00 Alcohol, Blood (Medical)-Serum Comments: [facility] [address] [place], [address] SERUM ETOH 10.0 mg/dL (Normal) Comments: The serum:whole blood ethanol ratio is approximately 1.14and varies slightly with hematocrit.Medical Alcohol reference interval and critical value innon-tolerant individuals; 50 - 100 Impairment 100 Intoxication 100 - 250 Severe Poisoning 250 - 400 Deep/possible fatal coma 55-Tqt-976653:00 Basic Metabolic Profile (BMP) Comments: [facility] [address] [place], [place], [address] GAP 5 (Normal) Range: 5-15 CO2 30.0 mmol/L (Normal) Range: 21.0-32.0 CL 107 mmol/L (Normal) Range: 98-107 K 4.1 mmol/L (Normal) Range: 3.5-5.1 NA 142 mmol/L (Normal) Range: 136-145 CA 8.5 mg/dL (Normal) Range: 8.5-10.1 BUN/CRE 21.8 {RATIO} (Abnormal) Range: 10-20 Estimated CRCL 79.30 ml/min (Normal) EST GFR - AA 96 mL/min (Normal) Comments: GFR Calc EST GFR 80 mL/min (Normal) Comments: Non- GFR Calc CREAT,SERUM 1.01 mg/dL (Normal) Range: 0.70-1.30 Comments: The validity of the calculated GFR AND GFRAA in patients over70 years has not been determined. Clinical correlation isessential. BUN 22 mg/dL (Abnormal) Range: 7-18 GLU 138 mg/dL (Abnormal) Range: 74-106 Comments: Fasting Glucose result greater than or equal to 126 mg/dLsuggests DIABETES MELLITUS per A.D.A. criteria.Please note revised GLUCOSE reference range /02/2018. 44-Bhd-938625:00 CBC W/Diff, Automated Comments: [facility] [address] [place], [place], [id number] Absolute Lymph 1.48 {X10_3/ul} (Normal) Range: 0.83-4.51 Absolute Neut 3.9 {X10_3/uL} (Normal) Range: 2.0-7.7 IM GRAN % 0.200 % (Normal) Range: 0.0-0.9 Comments: IG% - Immature Granulocytes (promyelocytes, myelocytes andmetamyelocytes) > 1% indicates that a LEFT SHIFT is Present. BASO% 0.5 % (Normal) Range: 0-1 EO% 2.4 % (Normal) Range: 0-5 MONO% 9.1 % (Normal) Range: 0-10 LY% 24.1 % (Normal) Range: 19-41 NEUT% 63.7 % (Normal) Range: 47-70 MPV 10.5 fL (Normal) Range: 6.2-12.0 PLT 177 K/mm3 (Normal) Range: 150-450 RDW SD 44.2 fL (Abnormal) Range: 35.1-43.9 RDW CV 13.4 % (Normal) Range: 11.6-14.6 MCHC 32.8 {g/gl} (Normal) Range: 32-36 MCH 29.7 pg (Normal) Range: 27.0-32.0 MCV 90.8 fL (Normal) Range: 80-94 HCT 35.4 % (Abnormal) Range: 40-54 HGB 11.6 g/dL (Abnormal) Range: 13.0-16.5 RBC 3.90 {M/mm3} (Abnormal) Range: 4.6-6.2 WBC 6.1 K/mm3 (Normal) Range: 4.4-11.0 16-Lbv-165691:00 Liver Profile Comments: [facility] [address] [place], [place], [address] D BILI 0.14 mg/dL (Normal) Range: 0.00-0.30 T BILI 0.40 mg/dL (Normal) Range: 0.20-1.00 ALT 15 U/L (Abnormal) Range: 16-61 ALK P 71 U/L (Normal) Range: 45-117 AST 15 U/L (Normal) Range: 15-37 GLOB 2.6 g/dL (Normal) Range: 2.2-4.2 ALB 3.3 g/dL (Normal) Range: 3.2-5.0 T PROT 5.9 g/dL (Abnormal) Range: 6.4-8.2 62-Wvu-990669:00 Troponin-I Comments: [facility] [address] [place], [place], [address] TROPONIN-I < 0.015 ng/mL (Normal) Comments: TROPONIN-I EXPECTED VALUES <0.045 Negative 0.045 - 0.590 Consistent with Cardiac Damage > OR = 0.600 Critical Value Not every elevated troponin is indicative of NE. T hesevalues should be used with clinical judgement in examiningthe patient's clinical picture for diagnosis. To establisha diagnosis of NE versus myocardial injury, there must be ademonstrated rise and/ or fall in the troponin values, inaddition to ischemic symptoms, EKG changes, new regionalwall motion abnormality, and/or angiographical evidence. PLEASE NOTE: REFERENCE RANGES EDITED 02/17/1802-May-201865-Ekp-610640:00 Urinalysis, Complete Comments: Order Date: 05/02/18How was Urine Obtained? CLEAN [facility] [address] [place], [place], [address] MUCUS, URINE 0 SEEN {/hpf} (Normal) BACTERIA 0 SEEN {/hpf} (Normal) SQUAM EPI 0 SEEN {/hpf} (Normal) Range: 0-5 RBC-UA 0 SEEN {/hpf} (Normal) Range: 0-5 WBC 0-5 SEEN {/hpf} (Normal) Range: 0-5 LEUK ESTERASE 25 /ul (Abnormal) OCCULT BLOOD-UR Negative /ul (Normal) NITRITE UR Negative (Normal) UROBILI 4 mg/dL (Abnormal) PROT DIPSTX 15 mg/dL (Abnormal) pH UR 6.5 (Normal) Range: 5.0 - 8.0 SP.GR. DIPSTX 1.015 (Normal) Range: 1.002-1.030 KETONE UR 5 mg/dL (Abnormal) BILIRUBIN URINE Negative mg/dL (Normal) GLUCOSE, UR Normal mg/dL (Normal) CLARITY Clear (Normal) COLOR Yellow (Normal) 14-Rfp-811810:00 Urine Drug Screen (VISTA) Comments: Order Date: 05/02/18[facility] [address] [place], [place], [id number] THC NEGATIVE (Normal) PCP NEGATIVE (Normal) OPIATES NEGATIVE (Normal) METHADONE NEGATIVE (Normal) ECSTACY POSITIVE (Abnormal) COCAINE NEGATIVE (Normal) BENZODIAZIPINE NEGATIVE (Normal) BARBITIURATES NEGATIVE (Normal) AMPHETAMINES NEGATIVE (Normal) VISTA UDS PH 6 (Normal) TO BE CONFIRMED (Normal) Comments: CONFIRMATORY TESTING FOR ALL POSITIVE URINE DRUG SCREENRESULTS WILL ONLY BE SENT OUT UPON PHYSICIAN ORDER.VISTA Urine Drug Screen methods provide only preliminaryanalytical test results. A more specific alternate chemicalmethod must be used in order to obtain a confirmedanalytical result. Gas chromatography/mass spectrometery(GC/MS) is the preferred confirmatory method. Clinicalconsideration and profe ssional judgement should be appliedto any drug of abuse test result, particularly whenpreliminary positive results are used.URINE TCA TESTING MUST BE ORDERED SEPARATELY. USE TESTMNEMONIC: [facility] 44-Uzw-914205:43 Valproic Acid (Depakene) Level Comments: [facility] [address] [place], [place], [address] VALPROIC ACID 63 ug/mL (Normal) Range: 50-100 23-Qsq-595057:20 Basic Metabolic Profile (BMP) Comments: [facility] [address] [place], [address] GAP 7 (Normal) Range: 5-15 CO2 28.0 mmol/L (Normal) Range: 21.0-32.0 CL 107 mmol/L (Normal) Range: 98-107 K 4.1 mmol/L (Normal) Range: 3.5-5.1 NA 142 mmol/L (Normal) Range: 136-145 CA 8.7 mg/dL (Normal) Range: 8.5-10.1 BUN/CRE 19.0 {RATIO} (Normal) Range: 10-20 Estimated CRCL 66.20 ml/min (Normal) EST GFR - AA 78 mL/min (Normal) Comments: GFR Calc EST GFR 65 mL/min (Normal) Comments: Non- GFR Calc CREAT,SERUM 1.21 mg/dL (Normal) Range: 0.70-1.30 Comments: The validity of the calculated GFR AND GFRAA in patients over70 years has not been determined. Clinical correlation isessential. BUN 23 mg/dL (Abnormal) Range: 7-18 GLU 86 mg/dL (Normal) Range: 74-106 Comments: Please note revised GLUCOSE reference range /02/2018. 42-Ibd-897272:20 CBC W/Diff, Automated Comments: [facility] [address] [place], [place], [id number] Absolute Lymph 1.48 {X10_3/ul} (Normal) Range: 0.83-4.51 Absolute Neut 4.3 {X10_3/uL} (Normal) Range: 2.0-7.7 IM GRAN % 0.400 % (Normal) Range: 0.0-0.9 Comments: IG% - Immature Granulocytes (promyelocytes, myelocytes andmetamyelocytes) > 1% indicates that a LEFT SHIFT is Present. BASO% 0.4 % (Normal) Range: 0-1 EO% 3.3 % (Normal) Range: 0-5 MONO% 9.7 % (Normal) Range: 0-10 LY% 22.2 % (Normal) Range: 19-41 NEUT% 64.0 % (Normal) Range: 47-70 MPV 10.8 fL (Normal) Range: 6.2-12.0 PLT 185 K/mm3 (Normal) Range: 150-450 RDW SD 43.0 fL (Normal) Range: 35.1-43.9 RDW CV 13.1 % (Normal) Range: 11.6-14.6 MCHC 33.3 {g/gl} (Normal) Range: 32-36 MCH 30.4 pg (Normal) Range: 27.0-32.0 MCV 91.1 fL (Normal) Range: 80-94 HCT 38.7 % (Abnormal) Range: 40-54 HGB 12.9 g/dL (Abnormal) Range: 13.0-16.5 RBC 4.25 {M/mm3} (Abnormal) Range: 4.6-6.2 WBC 6.7 K/mm3 (Normal) Range: 4.4-11.0 97-Usx-890844:20 Partial Thromboplast Time Comments: [facility] [address] [place], [address] PTT 30.6 s (Normal) Range: 24.1-36.2 38-Sfs-792474:20 Prothrombin Time w/INR Comments: [address] [place], [address] INR 1.1 (Normal) PROTIME 14.4 s (Normal) Range: 11.7-14.9 20-Vgy-972689:20 Troponin-I Comments: [address] [place], [address] TROPONIN-I < 0.015 ng/mL (Normal) Comments: TROPONIN-I EXPECTED VALUES <0.045 Negative 0.045 - 0.590 Consistent with Cardiac Damage > OR = 0.600 Critical Value Not every elevated troponin is indicative of NE. T hesevalues should be used with clinical judgement in examiningthe patient's clinical picture for diagnosis. To establisha diagnosis of NE versus myocardial injury, there must be ademonstrated rise and/ or fall in the troponin values, inaddition to ischemic symptoms, EKG changes, new regionalwall motion abnormality, and/or angiographical evidence. PLEASE NOTE: REFERENCE RANGES EDITED 02/17/1816-Apr-201817-Xyq-602167:11 Bedside Glucose Comments: [facility] LaboratoryPoint of [address]oy[address] [address] BEDSIDE GLU 84 mg/dL (Normal) Range: 70-110 Comments: MANAGEMENT OF PATIENT CARE PER NURSING PROTOCOL 45-Jcr-993245:09 Anaerobic & Aerobic Comments: Left Leg; PATIENT NOT FASTINGPERFORMED BY: [facility]CoSaint [facility]'s Medical CenterLmntlm9551 [facility] [id number] Information: LEFT LEG SRC:LG Culture (23873) Result 1 Mixed skin elvira (Normal) Aerobic Culture Final report (Normal) Result 1 NANG72 (Normal) Comments: No anaerobic growth in 72 hours. Anaerobic Culture Final report (Normal) 48-Rpe-24690:17 Alanine Aminotransferas (SGPT) Comments: [facility] [address] [place], [place], [phone](468) ALT 15 U/L (Abnormal) Range: 16-61 96-Eie-68805:17 AST(SGOT) Comments: [facility] [address] [place], [place], [phone](805) AST 20 U/L (Normal) Range: 15-37 24-Qbo-59345:17 Platelet Count Comments: [facility] [address] [place], [place], [phone](521) PLT 178 K/mm3 (Normal) Range: 150-450 76-Zcy-49607:17 Valproic Acid (Depakene) Level Comments: [facility] [address] [place], [place], [phone](238) VALPROIC ACID 73 ug/mL (Normal) Range: 50-100 19-Tbc-099184:05 Basic Metabolic Profile (BMP) Comments: [facility] [address] [place], [place], [phone](907) GAP 4 (Abnormal) Range: 5-15 CO2 33.0 mmol/L (Abnormal) Range: 21.0-32.0 CL 102 mmol/L (Normal) Range: 98-107 K 4.1 mmol/L (Normal) Range: 3.5-5.1 NA 139 mmol/L (Normal) Range: 136-145 CA 9.0 mg/dL (Normal) Range: 8.5-10.1 BUN/CRE 19.3 {RATIO} (Normal) Range: 10-20 Estimated CRCL 73.48 ml/min (Normal) EST GFR - AA 88 mL/min (Normal) Comments: GFR Calc EST GFR 73 mL/min (Normal) Comments: Non- GFR Calc CREAT,SERUM 1.09 mg/dL (Normal) Range: 0.70-1.30 Comments: The validity of the calculated GFR AND GFRAA in patients over70 years has not been determined. Clinical correlation isessential. BUN 21 mg/dL (Abnormal) Range: 7-18 GLU 85 mg/dL (Normal) Range: 74-106 Comments: Please note revised GLUCOSE reference range opltiwkkg87/02/2018. 21-Jqs-037250:05 CBC W/Diff, Automated Comments: [facility] [address] [place], [place], [phone] Absolute Lymph 1.28 {X10_3/ul} (Normal) Range: 0.83-4.51 Absolute Neut 4.6 {X10_3/uL} (Normal) Range: 2.0-7.7 IM GRAN % 0.300 % (Normal) Range: 0.0-0.9 Comments: IG% - Immature Granulocytes (promyelocytes, myelocytes andmetamyelocytes) > 1% indicates that a LEFT SHIFT is Present. BASO% 0.5 % (Normal) Range: 0-1 EO% 2.6 % (Normal) Range: 0-5 MONO% 8.6 % (Normal) Range: 0-10 LY% 19.2 % (Normal) Range: 19-41 NEUT% 68.8 % (Normal) Range: 47-70 MPV 10.2 fL (Normal) Range: 6.2-12.0 PLT 185 K/mm3 (Normal) Range: 150-450 RDW SD 43.3 fL (Normal) Range: 35.1-43.9 RDW CV 13.1 % (Normal) Range: 11.6-14.6 MCHC 33.2 {g/gl} (Normal) Range: 32-36 MCH 30.4 pg (Normal) Range: 27.0-32.0 MCV 91.5 fL (Normal) Range: 80-94 HCT 42.2 % (Normal) Range: 40-54 HGB 14.0 g/dL (Normal) Range: 13.0-16.5 RBC 4.61 {M/mm3} (Normal) Range: 4.6-6.2 WBC 6.7 K/mm3 (Normal) Range: 4.4-11.0 39-Hsx-469798:02 Microscopic Examination Comments: PATIENT WAS FASTINGPERFORMED BY: [facility] [id number] Bacteria Few (Normal) Mucus Threads Present (Normal) Epithelial Cells (non renal) None seen {/hpf} (Normal) Range: 0 - 10 RBC 0-2 {/hpf} (Normal) Range: 0 - 2 WBC 0-5 {/hpf} (Normal) Range: 0 - 5 90-Vap-056422:02 TSH (16969) Comments: PATIENT WAS FASTINGPERFORMED BY: [facility]6370 [facility] [id number] TSH 3.530 {uIU/mL} (Normal) Range: 0.450-4.500 88-Kte-895101:02 URINALYSIS, W/ MICRO (69685) Comments: PATIENT WAS FASTINGPERFORMED BY: [facility] [id number] Microscopic Examination See below: (Normal) Comments: Microscopic was indicated and was performed. Microscopic Examination MICRON (Normal) Comments: Microscopic follows if indicated. Nitrite, Urine Negative (Normal) Urobilinogen,Semi-Qn 0.2 mg/dL (Normal) Range: 0.2-1.0 Bilirubin Negative (Normal) Occult Blood Negative (Normal) Ketones Negative (Normal) Glucose Negative (Normal) Protein Trace (Normal) WBC Esterase Negative (Normal) Appearance Clear (Normal) Urine-Color Yellow (Normal) pH 7.0 (Normal) Range: 5.0-7.5 Specific Ball 1.015 (Normal) Range: 1.005-1.030 67-Ehu-807184:02 MICROALBUMIN: CREATININE RATIO Comments: PATIENT WAS FASTINGPERFORMED BY: [facility] [id number] (09293) AND (28216) Alb/Creat Ratio 167.0 {mg/g_creat} (Abnormal) Range: 0.0-30.0 Albumin, Urine 110.4 ug/mL (Normal) Creatinine, Urine 66.1 mg/dL (Normal) 68-Fti-179598:02 METABOLIC PANEL, COMPREHENSIVE Comments: PATIENT WAS FASTINGPERFORMED BY: [facility] [id number] (97968) ALT (SGPT) 16 [iU]/L (Normal) Range: 0-44 AST (SGOT) 31 [iU]/L (Normal) Range: 0-40 Alkaline Phosphatase, S 76 [iU]/L (Normal) Range: 39-117 Bilirubin, Total 0.9 mg/dL (Normal) Range: 0.0-1.2 A/G Ratio 2.4 (Abnormal) Range: 1.2-2.2 Globulin, Total 1.8 g/dL (Normal) Range: 1.5-4.5 Albumin, Serum 4.3 g/dL (Normal) Range: 3.6-4.8 Protein, Total, Serum 6.1 g/dL (Normal) Range: 6.0-8.5 Calcium, Serum 9.4 mg/dL (Normal) Range: 8.6-10.2 Carbon Dioxide, Total 26 mmol/L (Normal) Range: 18-29 Chloride, Serum 99 mmol/L (Normal) Range: 96-106 Potassium, Serum 4.6 mmol/L (Normal) Range: 3.5-5.2 Sodium, Serum 141 mmol/L (Normal) Range: 134-144 BUN/Creatinine Ratio 15 (Normal) Range: 10-24 eGFR If Africn Am 104 mL/min/1.73 (Normal) eGFR If NonAfricn Am 90 mL/min/1.73 (Normal) Creatinine, Serum 0.92 mg/dL (Normal) Range: 0.76-1.27 BUN 14 mg/dL (Normal) Range: 8-27 Glucose, Serum 101 mg/dL (Abnormal) Range: 65-99 95-Yid-795793:02 LIPID PANEL (81802) Comments: PATIENT WAS FASTINGPERFORMED BY: [facility]CoSaint Michael's Medical CenterCffrub3682 [facility] [id number] LDL/HDL Ratio 1.3 {ratio_units} (Normal) Range: 0.0-3.6 Comments: LDL/HDL Ratio Men Women 1/2 Avg.Risk 1.0 1.5 Av g.Risk 3.6 3.2 2X Avg.Risk 6.2 5.0 3X Avg.Risk 8.0 6.1 LDL Cholesterol Calc 64 mg/dL (Normal) Range: 0-99 VLDL Cholesterol Justo 16 mg/dL (Normal) Range: 5-40 HDL Cholesterol 50 mg/dL (Normal) Triglycerides 79 mg/dL (Normal) Range: 0-149 Cholesterol, Total 130 mg/dL (Normal) Range: 100-199 82-Hbw-366727:02 CBC W/AUTO DIFF WBC (62574) Comments: PATIENT WAS FASTINGPERFORMED BY: [facility] Wmawjy0937 [facility] [id number] Immature Grans (Abs) 0.0 {x10E3/uL} (Normal) Range: 0.0-0.1 Immature Granulocytes 0 % (Normal) Baso (Absolute) 0.1 {x10E3/uL} (Normal) Range: 0.0-0.2 Eos (Absolute) 0.2 {x10E3/uL} (Normal) Range: 0.0-0.4 Monocytes(Absolute) 0.8 {x10E3/uL} (Normal) Range: 0.1-0.9 Lymphs (Absolute) 1.5 {x10E3/uL} (Normal) Range: 0.7-3.1 Neutrophils (Absolute) 4.3 {x10E3/uL} (Normal) Range: 1.4-7.0 Basos 1 % (Normal) Eos 2 % (Normal) Monocytes 12 % (Normal) Lymphs 22 % (Normal) Neutrophils 63 % (Normal) Platelets 196 {x10E3/uL} (Normal) Range: 150-379 RDW 13.8 % (Normal) Range: 12.3-15.4 MCHC 33.8 g/dL (Normal) Range: 31.5-35.7 MCH 30.1 pg (Normal) Range: 26.6-33.0 MCV 89 fL (Normal) Range: 79-97 Hematocrit 42.9 % (Normal) Range: 37.5-51.0 Hemoglobin 14.5 g/dL (Normal) Range: 13.0-17.7 RBC 4.82 {x10E6/uL} (Normal) Range: 4.14-5.80 WBC 6.9 {x10E3/uL} (Normal) Range: 3.4-10.8 25-Ghv-570208:52 HgA1C , Office (02987) HgA1C , Office 5.8 % (Normal) Range: 4.6 - 7.1 :52 Blood Glucose , Office (32904) Blood Glucose , Office 110 (Normal) 70-Aco-223890:01 Microscopic Examination Comments: PATIENT NOT FASTINGPERFORMED BY: [facility] [address] [place] [id number] Bacteria Few (Normal) Mucus Threads Present (Normal) Cast Type Hyaline casts (Normal) Casts Present {/lpf} (Abnormal) Epithelial Cells (non renal) None seen {/hpf} (Normal) Range: 0 - 10 RBC 0-2 {/hpf} (Normal) Range: 0 - 2 WBC 0-5 {/hpf} (Normal) Range: 0 - 5 97-Vvl-850094:40 Urine Drug Screen (VISTA) Comments: [facility] [address] [place], [address] THC NEGATIVE (Normal) PCP NEGATIVE (Normal) OPIATES NEGATIVE (Normal) METHADONE NEGATIVE (Normal) ECSTACY NEGATIVE (Normal) COCAINE NEGATIVE (Normal) BENZODIAZIPINE NEGATIVE (Normal) BARBITIURATES NEGATIVE (Normal) AMPHETAMINES NEGATIVE (Normal) VISTA UDS PH 6 (Normal) TO BE CONFIRMED (Normal) Comments: CONFIRMATORY TESTING FOR ALL POSITIVE URINE DRUG SCREENRESULTS WILL ONLY BE SENT OUT UPON PHYSICIAN ORDER.VISTA Urine Drug Screen methods provide only preliminaryanalytical test results. A more specific alternate chemicalmethod must be used in order to obtain a confirmedanalytical result. Gas chromatography/mass spectrometery(GC/MS) is the preferred confirmatory method. Clinicalconsideration and profe ssional judgement should be appliedto any drug of abuse test result, particularly whenpreliminary positive results are used.URINE TCA TESTING MUST BE ORDERED SEPARATELY. USE TESTMNEMONIC: [facility] :06 Alcohol, Blood (Medical)-Serum Comments: [facility] [address] [place], [address] SERUM ETOH < 3.0 mg/dL (Normal) Comments: The serum:whole blood ethanol ratio is approximately 1.14and varies slightly with hematocrit.Medical Alcohol reference interval and critical value innon-tolerant individuals; 50 - 100 Impairment 100 Intoxication 100 - 250 Severe Poisoning 250 - 400 Deep/possible fatal coma 52-Rdj-166263:06 Basic Metabolic Profile (BMP) Comments: [facility] [address] [place], [place], [id number] GAP 8 (Normal) Range: 5-15 CO2 29.0 mmol/L (Normal) Range: 21.0-32.0 CL 104 mmol/L (Normal) Range: 98-107 K 3.7 mmol/L (Normal) Range: 3.5-5.1 NA 141 mmol/L (Normal) Range: 136-145 CA 9.4 mg/dL (Normal) Range: 8.5-10.1 BUN/CRE 9.4 {RATIO} (Abnormal) Range: 10-20 Estimated CRCL 63.37 ml/min (Normal) EST GFR - AA 74 mL/min (Normal) Comments: GFR Calc EST GFR 61 mL/min (Normal) Comments: Non- GFR Calc CREAT,SERUM 1.28 mg/dL (Normal) Range: 0.70-1.30 Comments: The validity of the calculated GFR AND GFRAA in patients over70 years has not been determined. Clinical correlation isessential. BUN 12 mg/dL (Normal) Range: 7-18 GLU 184 mg/dL (Abnormal) Range: 70-110 Comments: Fasting Glucose result greater than or equal to 126 mg/dLsuggests DIABETES MELLITUS per A.D.A. criteria. 39-Caw-498743:06 CBC W/Diff, Automated Comments: [facility] [address] [place], [place], [id number] Absolute Lymph 1.12 {X10_3/ul} (Normal) Range: 0.83-4.51 Absolute Neut 6.7 {X10_3/uL} (Normal) Range: 2.0-7.7 IM GRAN % 0.100 % (Normal) Range: 0.0-0.9 Comments: IG% - Immature Granulocytes (promyelocytes, myelocytes andmetamyelocytes) > 1% indicates that a LEFT SHIFT is Present. BASO% 0.5 % (Normal) Range: 0-1 EO% 1.6 % (Normal) Range: 0-5 MONO% 7.9 % (Normal) Range: 0-10 LY% 12.9 % (Abnormal) Range: 19-41 NEUT% 77.0 % (Abnormal) Range: 47-70 MPV 11.2 fL (Normal) Range: 6.2-12.0 PLT 224 K/mm3 (Normal) Range: 150-450 RDW SD 41.6 fL (Normal) Range: 35.1-43.9 RDW CV 12.8 % (Normal) Range: 11.6-14.6 MCHC 33.1 {g/gl} (Normal) Range: 32-36 MCH 29.5 pg (Normal) Range: 27.0-32.0 MCV 89.3 fL (Normal) Range: 80-94 HCT 43.2 % (Normal) Range: 40-54 HGB 14.3 g/dL (Normal) Range: 13.0-16.5 RBC 4.84 {M/mm3} (Normal) Range: 4.6-6.2 WBC 8.7 K/mm3 (Normal) Range: 4.4-11.0 71-Unk-056157:06 Valproic Acid (Depakene) Level Comments: [facility] [address] [place], [address] VALPROIC ACID 49 ug/mL (Abnormal) Range: 50-100 9-Cry-448424:29 HGB A1C (48380) HGB A1C 5.9 % (Normal) Range: 4.6 - 7.1 08-Pfx-940109:57 TSH (90633) Comments: PATIENT WAS FASTINGPERFORMED BY: [facility] TownshipCoSaint Michael's Medical CenterWaciqf4504 [facility] [id number] TSH 3.020 {uIU/mL} (Normal) Range: 0.450-4.500 43-Ruw-623777:01 URINALYSIS, W/ MICRO (03924) Comments: PATIENT NOT FASTINGPERFORMED BY: LabCoSaint Michael's Medical CenterZvmief7040 [facility] [id number] Microscopic Examination See below: (Normal) Comments: Microscopic was indicated and was performed. Microscopic Examination MICRON (Normal) Comments: Microscopic follows if indicated. Nitrite, Urine Negative (Normal) Urobilinogen,Semi-Qn 0.2 mg/dL (Normal) Range: 0.2-1.0 Bilirubin Negative (Normal) Occult Blood Negative (Normal) Ketones Negative (Normal) Glucose Negative (Normal) Protein Negative (Normal) WBC Esterase Negative (Normal) Appearance Clear (Normal) Urine-Color Yellow (Normal) pH 6.5 (Normal) Range: 5.0-7.5 Specific Ball 1.010 (Normal) Range: 1.005-1.030 42-Bim-366786:01 MICROALBUMIN: CREATININE RATIO Comments: PATIENT NOT FASTINGPERFORMED BY: [place] Crystech CoatingSaint Michael's Medical CenterYtczhx4187 [facility] [id number] ([id number]) AND (15469) Microalb/Creat Ratio 43.2 {mg/g_creat} (Abnormal) Range: 0.0-30.0 Microalbumin, Urine 20.9 ug/mL (Normal) Creatinine, Urine 48.4 mg/dL (Normal) 09-Awn-588437:57 METABOLIC PANEL, COMPREHENSIVE Comments: PATIENT WAS FASTINGPERFORMED BY: LabCoSaint Michael's Medical CenterNvxgsr2740 [facility] [id number] (74074) ALT (SGPT) 6 [iU]/L (Normal) Range: 0-44 AST (SGOT) 17 [iU]/L (Normal) Range: 0-40 Alkaline Phosphatase, S 80 [iU]/L (Normal) Range: 39-117 Bilirubin, Total 0.4 mg/dL (Normal) Range: 0.0-1.2 A/G Ratio 2.2 (Normal) Range: 1.2-2.2 Globulin, Total 1.9 g/dL (Normal) Range: 1.5-4.5 Albumin, Serum 4.2 g/dL (Normal) Range: 3.6-4.8 Protein, Total, Serum 6.1 g/dL (Normal) Range: 6.0-8.5 Calcium, Serum 9.3 mg/dL (Normal) Range: 8.6-10.2 Carbon Dioxide, Total 25 mmol/L (Normal) Range: 18-29 Chloride, Serum 99 mmol/L (Normal) Range: 96-106 Potassium, Serum 4.6 mmol/L (Normal) Range: 3.5-5.2 Sodium, Serum 142 mmol/L (Normal) Range: 134-144 BUN/Creatinine Ratio 14 (Normal) Range: 10-24 eGFR If Africn Am 94 mL/min/1.73 (Normal) eGFR If NonAfricn Am 81 mL/min/1.73 (Normal) Creatinine, Serum 1.00 mg/dL (Normal) Range: 0.76-1.27 BUN 14 mg/dL (Normal) Range: 8-27 Glucose, Serum 79 mg/dL (Normal) Range: 65-99 17-Wtr-208004:57 LIPID PANEL (86528) Comments: PATIENT WAS FASTINGPERFORMED BY: [employer] Mcgelr3702 [facility] [id number] LDL/HDL Ratio 1.2 {ratio_units} (Normal) Range: 0.0-3.6 Comments: LDL/HDL Ratio Men Women 1/2 Avg.Risk 1.0 1.5 Av g.Risk 3.6 3.2 2X Avg.Risk 6.2 5.0 3X Avg.Risk 8.0 6.1 LDL Cholesterol Calc 51 mg/dL (Normal) Range: 0-99 VLDL Cholesterol Justo 17 mg/dL (Normal) Range: 5-40 HDL Cholesterol 42 mg/dL (Normal) Triglycerides 84 mg/dL (Normal) Range: 0-149 Cholesterol, Total 110 mg/dL (Normal) Range: 100-199 51-Rnv-272159:57 CBC W/AUTO DIFF WBC (09450) Comments: PATIENT WAS FASTINGPERFORMED BY: [place] Crystech CoatingSaint Michael's Medical CenterWkbrin9566 [facility] [id number] Immature Grans (Abs) 0.0 {x10E3/uL} (Normal) Range: 0.0-0.1 Immature Granulocytes 0 % (Normal) Baso (Absolute) 0.0 {x10E3/uL} (Normal) Range: 0.0-0.2 Eos (Absolute) 0.2 {x10E3/uL} (Normal) Range: 0.0-0.4 Monocytes(Absolute) 0.7 {x10E3/uL} (Normal) Range: 0.1-0.9 Lymphs (Absolute) 1.2 {x10E3/uL} (Normal) Range: 0.7-3.1 Neutrophils (Absolute) 6.3 {x10E3/uL} (Normal) Range: 1.4-7.0 Basos 1 % (Normal) Eos 2 % (Normal) Monocytes 8 % (Normal) Lymphs 14 % (Normal) Neutrophils 75 % (Normal) Platelets 257 {x10E3/uL} (Normal) Range: 150-379 RDW 14.0 % (Normal) Range: 12.3-15.4 MCHC 33.9 g/dL (Normal) Range: 31.5-35.7 MCH 30.0 pg (Normal) Range: 26.6-33.0 MCV 89 fL (Normal) Range: 79-97 Hematocrit 41.3 % (Normal) Range: 37.5-51.0 Hemoglobin 14.0 g/dL (Normal) Range: 12.6-17.7 RBC 4.66 {x10E6/uL} (Normal) Range: 4.14-5.80 WBC 8.5 {x10E3/uL} (Normal) Range: 3.4-10.8 4-Shy-583601:23 Blood Glucose , Office (07969) Blood Glucose , Office 106 (Normal) 06-Ctj-967867:31 PSA (PROSTATE SPECIFIC Comments: PATIENT WAS FASTINGPERFORMED BY: [employer] [place] [id number] ANTIGEN) (V76.44) Prostate Specific Ag, 1.6 ng/mL (Normal) Range: 0.0-4.0 Serum Comments: [employer] ECLIA methodology. .According to the [place] [employer], Serum PSA shoulddecrease and remain at undetectable levels after radicalprostatectomy. The AUA defines biochemical recurrence as an initialPSA value 0.2 ng/mL or greater followed by a subsequent confirmatoryPSA value 0.2 ng/mL or greater.Values obtained with d ifferent assay methods or kits cannot be usedinterchangeably. Results cannot be interpreted as absolute evidenceof the presence or absence of malignant disease. 10-Vet-522675:31 HGB A1C (91790) Comments: PATIENT WAS FASTINGPERFORMED BY: [employer]ov6370 [employer] [place] [id number] Hemoglobin A1c 6.0 % (Abnormal) Range: 4.8-5.6 Comments: . Pre-diabetes: 5.7 - 6.4 Diabetes: >6.4 Glycemic control for adults with diabetes: <7.0 21-Tja-086594:31 TSH (THYROID STIMULATING Comments: PATIENT WAS FASTINGPERFORMED BY: [employer] [place] [id number] HORMONE) (47142) TSH 2.990 {uIU/mL} (Normal) Range: 0.450-4.500 92-Ilk-716319:31 CALCIFEDIOL (30861) Comments: PATIENT WAS FASTINGPERFORMED BY: [facility]6370 [facility] [id number] Vitamin D, 25-Hydroxy 29.6 ng/mL (Abnormal) Range: 30.0-100.0 Comments: Vitamin D deficiency has been defined by the [place] of[employer] and an Endocrine Society practice guideline as alevel of serum 25-OH vitamin D less than 20 ng/mL (1,2).The Endocrine Society went on to further define vitamin Dinsufficiency as a level between 21 and 29 ng/mL (2).1. IOM ([place] of [employer]). 2010. Dietary reference intakes for calcium and D. [place]: The National Academies Press.2. Forrest MF, [place], Lexi ESPINOZA, et al. Evaluation, treatment, and prevention of vitamin D deficiency: an Endocrine Society clinical practice guideline. JCEM. 2010; 96(7):1911-30. 93-Bft-717096:31 MICROALBUMIN: CREATININE RATIO Comments: PATIENT WAS FASTINGPERFORMED BY: [place] Crystech CoatingSaint Michael's Medical CenterNtvjaq9613 [facility] [id number] (56555) AND (15986) Microalb/Creat Ratio 408.1 {mg/g_creat} (Abnormal) Range: 0.0-30.0 Microalbumin, Urine 85.3 ug/mL (Normal) Creatinine, Urine 20.9 mg/dL (Normal) 22-Wiy-843856:31 METABOLIC PANEL, COMPREHENSIVE Comments: PATIENT WAS FASTINGPERFORMED BY: LabCoSaint Michael's Medical CenterWlbviq2125 [facility] [id number] (47710) ALT (SGPT) 9 [iU]/L (Normal) Range: 0-44 AST (SGOT) 24 [iU]/L (Normal) Range: 0-40 Alkaline Phosphatase, S 119 [iU]/L (Abnormal) Range: 39-117 Bilirubin, Total 0.5 mg/dL (Normal) Range: 0.0-1.2 A/G Ratio 2.8 (Abnormal) Range: 1.1-2.5 Globulin, Total 1.8 g/dL (Normal) Range: 1.5-4.5 Albumin, Serum 5.1 g/dL (Normal) Range: 3.5-5.5 Protein, Total, Serum 6.9 g/dL (Normal) Range: 6.0-8.5 Calcium, Serum 9.9 mg/dL (Normal) Range: 8.7-10.2 Carbon Dioxide, Total 26 mmol/L (Normal) Range: 18-29 Chloride, Serum 92 mmol/L (Abnormal) Range: 96-106 Potassium, Serum 4.5 mmol/L (Normal) Range: 3.5-5.2 Sodium, Serum 137 mmol/L (Normal) Range: 134-144 BUN/Creatinine Ratio 14 (Normal) Range: 9-20 eGFR If Africn Am 112 mL/min/1.73 (Normal) eGFR If NonAfricn Am 97 mL/min/1.73 (Normal) Creatinine, Serum 0.81 mg/dL (Normal) Range: 0.76-1.27 BUN 11 mg/dL (Normal) Range: 6-24 Glucose, Serum 117 mg/dL (Abnormal) Range: 65-99 28-Cps-517173:31 LIPID PANEL (75301) Comments: PATIENT WAS FASTINGPERFORMED BY: [facility] [id number] LDL/HDL Ratio 1.1 {ratio_units} (Normal) Range: 0.0-3.6 Comments: LDL/HDL Ratio Men Women 1/2 Avg.Risk 1.0 1.5 Av g.Risk 3.6 3.2 2X Avg.Risk 6.2 5.0 3X Avg.Risk 8.0 6.1 LDL Cholesterol Calc 68 mg/dL (Normal) Range: 0-99 VLDL Cholesterol Justo 18 mg/dL (Normal) Range: 5-40 HDL Cholesterol 63 mg/dL (Normal) Triglycerides 88 mg/dL (Normal) Range: 0-149 Cholesterol, Total 149 mg/dL (Normal) Range: 100-199 [id number] CBC with auto diff (03130) Comments: PATIENT WAS FASTINGPERFORMED BY: [id number] Corporation[employer] license of [facility] [id number] Immature Grans (Abs) 0.0 {x10E3/uL} (Normal) Range: 0.0-0.1 Immature Granulocytes 0 % (Normal) Baso (Absolute) 0.0 {x10E3/uL} (Normal) Range: 0.0-0.2 Eos (Absolute) 0.2 {x10E3/uL} (Normal) Range: 0.0-0.4 Monocytes(Absolute) 0.5 {x10E3/uL} (Normal) Range: 0.1-0.9 Lymphs (Absolute) 1.0 {x10E3/uL} (Normal) Range: 0.7-3.1 Neutrophils (Absolute) 4.8 {x10E3/uL} (Normal) Range: 1.4-7.0 Basos 0 % (Normal) Eos 3 % (Normal) Monocytes 8 % (Normal) Lymphs 15 % (Normal) Neutrophils 74 % (Normal) Platelets 241 {x10E3/uL} (Normal) Range: 150-379 RDW 13.4 % (Normal) Range: 12.3-15.4 MCHC 34.7 g/dL (Normal) Range: 31.5-35.7 MCH 29.8 pg (Normal) Range: 26.6-33.0 MCV 86 fL (Normal) Range: 79-97 Hematocrit 41.5 % (Normal) Range: 37.5-51.0 Hemoglobin 14.4 g/dL (Normal) Range: 12.6-17.7 RBC 4.84 {x10E6/uL} (Normal) Range: 4.14-5.80 WBC 6.4 {x10E3/uL} (Normal) Range: 3.4-10.8 [id number] Urine Drug Screen ([facility]) Comments: [facility] [id number] [place], [place], [id number] THC NEGATIVE (Normal) PCP NEGATIVE (Normal) OPIATES NEGATIVE (Normal) METHADONE NEGATIVE (Normal) ECSTACY NEGATIVE (Normal) COCAINE NEGATIVE (Normal) BENZODIAZIPINE NEGATIVE (Normal) BARBITIURATES NEGATIVE (Normal) AMPHETAMINES NEGATIVE (Normal) VISTA UDS PH 6 (Normal) TO BE CONFIRMED (Normal) Comments: CONFIRMATORY TESTING FOR ALL POSITIVE URINE DRUG SCREENRESULTS WILL ONLY BE SENT OUT UPON PHYSICIAN ORDER.VISTA Urine Drug Screen methods provide only preliminaryanalytical test results. A more specific alternate chemicalmethod must be used in order to obtain a confirmedanalytical result. Gas chromatography/mass spectrometery(GC/MS) is the preferred confirmatory method. Clinicalconsideration and profe ssional judgement should be appliedto any drug of abuse test result, particularly whenpreliminary positive results are used.URINE TCA TESTING MUST BE ORDERED SEPARATELY. USE TESTMNEMONIC: [facility] :45 Alcohol, Blood (Medical)-Serum Comments: [facility] [address] [place], [place], [id number] SERUM ETOH < 3.0 mg/dL (Normal) Comments: The serum:whole blood ethanol ratio is approximately 1.14and varies slightly with hematocrit.Medical Alcohol reference interval and critical value innon-tolerant individuals; 50 - 100 Impairment 100 Intoxication 100 - 250 Severe Poisoning 250 - 400 Deep/possible fatal coma :45 Basic Metabolic Profile (BMP) Comments: [facility] Ynmnvwwkmw5757 [facility] [place], [place], [address] GAP 1 (Abnormal) Range: 5-15 CO2 31.0 mmol/L (Normal) Range: 21.0-32.0 CL 104 mmol/L (Normal) Range: 98-107 K 3.6 mmol/L (Normal) Range: 3.5-5.1 NA 136 mmol/L (Normal) Range: 136-145 CA 9.5 mg/dL (Normal) Range: 8.5-10.1 BUN/CRE 12.8 {RATIO} (Normal) Range: 10-20 Estimated CRCL 87.37 ml/min (Normal) EST GFR - AA 106 mL/min (Normal) Comments: GFR Calc EST GFR 88 mL/min (Normal) Comments: Non- GFR Calc CREAT,SERUM 0.94 mg/dL (Normal) Range: 0.70-1.30 Comments: The validity of the calculated GFR AND GFRAA in patients over70 years has not been determined. Clinical correlation isessential. BUN 12 mg/dL (Normal) Range: 7-18 GLU 114 mg/dL (Abnormal) Range: 70-110 Comments: Fasting Glucose result from 110 to <126 mg/dLsuggests IMPAIRED HOMEOSTASIS per A.D.A. criteria. [id number] CBC W/Diff, Automated Comments: [facility] [address] [place], [address] Absolute Lymph 1.30 {X10_3/ul} (Normal) Range: 0.83-4.51 Absolute Neut 6.1 {X10_3/uL} (Normal) Range: 2.0-7.7 IM GRAN % 0.200 % (Normal) Range: 0.0-0.9 Comments: IG% - Immature Granulocytes (promyelocytes, myelocytes andmetamyelocytes) > 1% indicates that a LEFT SHIFT is Present. BASO% 0.5 % (Normal) Range: 0-1 EO% 2.3 % (Normal) Range: 0-5 MONO% 6.1 % (Normal) Range: 0-10 LY% 15.9 % (Abnormal) Range: 19-41 NEUT% 75.0 % (Abnormal) Range: 47-70 MPV 10.7 fL (Normal) Range: 6.2-12.0 PLT 218 K/mm3 (Normal) Range: 150-450 RDW SD 41.9 fL (Normal) Range: 35.1-43.9 RDW CV 13.1 % (Normal) Range: 11.6-14.6 MCHC 34.8 {g/gl} (Normal) Range: 32-36 MCH 30.7 pg (Normal) Range: 27.0-32.0 MCV 88.2 fL (Normal) Range: 80-94 HCT 41.7 % (Normal) Range: 40-54 HGB 14.5 g/dL (Normal) Range: 13.0-16.5 RBC 4.73 {M/mm3} (Normal) Range: 4.6-6.2 WBC 8.2 K/mm3 (Normal) Range: 4.4-11.0 :44 Alcohol, Blood (Medical)-Serum Comments: [facility] [address] [place], [address] SERUM ETOH < 3.0 mg/dL (Normal) Comments: The serum:whole blood ethanol ratio is approximately 1.14and varies slightly with hematocrit.Medical Alcohol reference interval and critical value innon-tolerant individuals; 50 - 100 Impairment 100 Intoxication 100 - 250 Severe Poisoning 250 - 400 Deep/possible fatal coma :44 CBC W/Diff, Automated Comments: [facility] [address]tk[address] [place], [address] Absolute Lymph 1.10 {X10_3/ul} (Normal) Range: 0.83-4.51 Absolute Neut 4.7 {X10_3/uL} (Normal) Range: 2.0-7.7 IM GRAN % 0.000 % (Normal) Range: 0.0-0.9 Comments: IG% - Immature Granulocytes (promyelocytes, myelocytes andmetamyelocytes) > 1% indicates that a LEFT SHIFT is Present. BASO% 0.7 % (Normal) Range: 0-1 EO% 4.0 % (Normal) Range: 0-5 MONO% 8.1 % (Normal) Range: 0-10 LY% 16.4 % (Abnormal) Range: 19-41 NEUT% 70.8 % (Abnormal) Range: 47-70 MPV 10.5 fL (Normal) Range: 6.2-12.0 PLT 185 K/mm3 (Normal) Range: 150-450 RDW SD 42.7 fL (Normal) Range: 35.1-43.9 RDW CV 13.1 % (Normal) Range: 11.6-14.6 MCHC 33.6 {g/gl} (Normal) Range: 32-36 MCH 30.2 pg (Normal) Range: 27.0-32.0 MCV 89.9 fL (Normal) Range: 80-94 HCT 39.3 % (Abnormal) Range: 40-54 HGB 13.2 g/dL (Normal) Range: 13.0-16.5 RBC 4.37 {M/mm3} (Abnormal) Range: 4.6-6.2 WBC 6.7 K/mm3 (Normal) Range: 4.4-11.0 :44 Comprehensive Metabolic Profil Comments: [facility] [address] [place], [place], [id number] GAP 1 (Abnormal) Range: 5-15 CO2 31.0 mmol/L (Normal) Range: 21.0-32.0 CL 107 mmol/L (Normal) Range: 98-107 K 3.7 mmol/L (Normal) Range: 3.5-5.1 NA 139 mmol/L (Normal) Range: 136-145 T BILI 0.40 mg/dL (Normal) Range: 0.20-1.00 ALT 15 U/L (Normal) Range: 12-78 ALK P 102 U/L (Normal) Range: 45-117 AST 24 U/L (Normal) Range: 15-37 CA 8.8 mg/dL (Normal) Range: 8.5-10.1 A/G 1.5 {RATIO} (Normal) Range: 0.9-2.4 GLOB 2.7 g/dL (Normal) Range: 2.3-3.5 ALB 4.0 g/dL (Normal) Range: 3.4-5.0 T PROT 6.7 g/dL (Normal) Range: 6.4-8.2 BUN/CRE 13.3 {RATIO} (Normal) Range: 10-20 Estimated CRCL 78.21 ml/min (Normal) EST GFR - AA 93 mL/min (Normal) Comments: GFR Calc EST GFR 77 mL/min (Normal) Comments: Non- GFR Calc CREAT,SERUM 1.05 mg/dL (Normal) Range: 0.70-1.30 Comments: The validity of the calculated GFR AND GFRAA in patients over70 years has not been determined. Clinical correlation isessential. BUN 14 mg/dL (Normal) Range: 7-18 GLU 106 mg/dL (Normal) Range: 70-110 72-Peh-03104:44 Urine Drug Screen (VISTA) Comments: [facility] [address] [place], [place], [id number] THC NEGATIVE (Normal) PCP NEGATIVE (Normal) OPIATES NEGATIVE (Normal) METHADONE NEGATIVE (Normal) ECSTACY NEGATIVE (Normal) COCAINE NEGATIVE (Normal) BENZODIAZIPINE NEGATIVE (Normal) BARBITIURATES NEGATIVE (Normal) AMPHETAMINES NEGATIVE (Normal) VISTA UDS PH 6 (Normal) TO BE CONFIRMED (Normal) Comments: CONFIRMATORY TESTING FOR ALL POSITIVE URINE DRUG SCREENRESULTS WILL ONLY BE SENT OUT UPON PHYSICIAN ORDER.VISTA Urine Drug Screen methods provide only preliminaryanalytical test results. A more specific alternate chemicalmethod must be used in order to obtain a confirmedanalytical result. Gas chromatography/mass spectrometery(GC/MS) is the preferred confirmatory method. Clinicalconsideration and profe ssional judgement should be appliedto any drug of abuse test result, particularly whenpreliminary positive results are used.URINE TCA TESTING MUST BE ORDERED SEPARATELY. USE TESTMNEMONIC: [facility] :44 Valproic Acid (Depakene) Level Comments: [facility] Rowbel[address]zns[address] [place], [place], [address] VALPROIC ACID < 3 ug/mL (Abnormal) Range: 50-100 :53 CBC, PLATELETS & MANUAL Comments: PATIENT NOT FASTINGPERFORMED BY: [facility] Ljqpwn8987 [facility] [id number] Information: [id number] DIFF ([id number]) Immature Grans (Abs) 0.0 {x10E3/uL} (Normal) Range: 0.0-0.1 Immature Granulocytes 0 % (Normal) Baso (Absolute) 0.0 {x10E3/uL} (Normal) Range: 0.0-0.2 Eos (Absolute) 0.0 {x10E3/uL} (Normal) Range: 0.0-0.4 Monocytes(Absolute) 0.5 {x10E3/uL} (Normal) Range: 0.1-0.9 Lymphs (Absolute) 1.1 {x10E3/uL} (Normal) Range: 0.7-3.1 Neutrophils (Absolute) 5.8 {x10E3/uL} (Normal) Range: 1.4-7.0 Basos 0 % (Normal) Eos 0 % (Normal) Monocytes 6 % (Normal) Lymphs 15 % (Normal) Neutrophils 79 % (Normal) Platelets 231 {x10E3/uL} (Normal) Range: 150-379 RDW 13.9 % (Normal) Range: 12.3-15.4 MCHC 33.3 g/dL (Normal) Range: 31.5-35.7 MCH 29.1 pg (Normal) Range: 26.6-33.0 MCV 88 fL (Normal) Range: 79-97 Hematocrit 40.3 % (Normal) Range: 37.5-51.0 Hemoglobin 13.4 g/dL (Normal) Range: 12.6-17.7 RBC 4.60 {x10E6/uL} (Normal) Range: 4.14-5.80 WBC 7.4 {x10E3/uL} (Normal) Range: 3.4-10.8 :56 Alcohol, Blood (Medical)-Serum Comments: [facility] X[address]uz[address] [place], [place], [id number] SERUM ETOH 5.0 mg/dL (Normal) Comments: The serum:whole blood ethanol ratio is approximately 1.14and varies slightly with hematocrit.Medical Alcohol reference interval and critical value innon-tolerant individuals; 50 - 100 Impairment 100 Intoxication 100 - 250 Severe Poisoning 250 - 400 Deep/possible fatal coma :56 Basic Metabolic Profile (BMP) Comments: [facility] Kn[address]iohb64[address] [place], [place], [address] GAP 6 (Normal) Range: 5-15 CO2 29.0 mmol/L (Normal) Range: 21.0-32.0 CL 106 mmol/L (Normal) Range: 98-107 K 4.0 mmol/L (Normal) Range: 3.5-5.1 NA 141 mmol/L (Normal) Range: 136-145 CA 8.7 mg/dL (Normal) Range: 8.5-10.1 BUN/CRE 18.1 {RATIO} (Normal) Range: 10-20 Estimated CRCL 78.21 ml/min (Normal) EST GFR - AA 93 mL/min (Normal) Comments: GFR Calc EST GFR 77 mL/min (Normal) Comments: Non- GFR Calc CREAT,SERUM 1.05 mg/dL (Normal) Range: 0.70-1.30 Comments: The validity of the calculated GFR AND GFRAA in patients over70 years has not been determined. Clinical correlation isessential. BUN 19 mg/dL (Abnormal) Range: 7-18 GLU 131 mg/dL (Abnormal) Range: 70-110 Comments: Fasting Glucose result greater than or equal to 126 mg/dLsuggests DIABETES MELLITUS per A.D.A. criteria. :56 CBC W/Diff, Automated Comments: [facility] [address] [place], [address] Absolute Lymph 1.36 {X10_3/ul} (Normal) Range: 0.83-4.51 Absolute Neut 5.4 {X10_3/uL} (Normal) Range: 2.0-7.7 IM GRAN % 0.300 % (Normal) Range: 0.0-0.9 Comments: IG% - Immature Granulocytes (promyelocytes, myelocytes andmetamyelocytes) > 1% indicates that a LEFT SHIFT is Present. BASO% 0.1 % (Normal) Range: 0-1 EO% 0.0 % (Normal) Range: 0-5 MONO% 8.0 % (Normal) Range: 0-10 LY% 18.5 % (Abnormal) Range: 19-41 NEUT% 73.1 % (Abnormal) Range: 47-70 MPV 11.1 fL (Normal) Range: 6.2-12.0 PLT 186 K/mm3 (Normal) Range: 150-450 RDW SD 42.4 fL (Normal) Range: 35.1-43.9 RDW CV 13.1 % (Normal) Range: 11.6-14.6 MCHC 34.1 {g/gl} (Normal) Range: 32-36 MCH 30.3 pg (Normal) Range: 27.0-32.0 MCV 88.9 fL (Normal) Range: 80-94 HCT 40.8 % (Normal) Range: 40-54 HGB 13.9 g/dL (Normal) Range: 13.0-16.5 RBC 4.59 {M/mm3} (Abnormal) Range: 4.6-6.2 WBC 7.4 K/mm3 (Normal) Range: 4.4-11.0 :56 Valproic Acid (Depakene) Level Comments: [facility] Tjoumgeagj2836 [facility] [place], [address] VALPROIC ACID 33 ug/mL (Abnormal) Range: 50-100 :50 Urine Drug Screen (VISTA) Comments: [facility] Racnkenodf6823 [facility] [place], [address] THC NEGATIVE (Normal) PCP NEGATIVE (Normal) OPIATES NEGATIVE (Normal) METHADONE NEGATIVE (Normal) ECSTACY NEGATIVE (Normal) COCAINE NEGATIVE (Normal) BENZODIAZIPINE NEGATIVE (Normal) BARBITIURATES NEGATIVE (Normal) AMPHETAMINES NEGATIVE (Normal) VISTA UDS PH 5 (Normal) TO BE CONFIRMED (Normal) Comments: CONFIRMATORY TESTING FOR ALL POSITIVE URINE DRUG SCREENRESULTS WILL ONLY BE SENT OUT UPON PHYSICIAN ORDER.VISTA Urine Drug Screen methods provide only preliminaryanalytical test results. A more specific alternate chemicalmethod must be used in order to obtain a confirmedanalytical result. Gas chromatography/mass spectrometery(GC/MS) is the preferred confirmatory method. Clinicalconsideration and profe ssional judgement should be appliedto any drug of abuse test result, particularly whenpreliminary positive results are used.URINE TCA TESTING MUST BE ORDERED SEPARATELY. USE TESTMNEMONIC: [facility] :53 CBC, PLATELETS & MANUAL Comments: PATIENT NOT FASTINGPERFORMED BY: [facility] CenterJjrnqc0688 [facility] [id number] Information: [id number] DIFF ([id number]) Immature Grans (Abs) 0.0 {x10E3/uL} (Normal) Range: 0.0-0.1 Immature Granulocytes 0 % (Normal) Baso (Absolute) 0.0 {x10E3/uL} (Normal) Range: 0.0-0.2 Eos (Absolute) 0.0 {x10E3/uL} (Normal) Range: 0.0-0.4 Monocytes(Absolute) 0.4 {x10E3/uL} (Normal) Range: 0.1-0.9 Lymphs (Absolute) 1.8 {x10E3/uL} (Normal) Range: 0.7-3.1 Neutrophils (Absolute) 4.5 {x10E3/uL} (Normal) Range: 1.4-7.0 Basos 0 % (Normal) Eos 0 % (Normal) Monocytes 6 % (Normal) Lymphs 27 % (Normal) Neutrophils 67 % (Normal) Platelets 193 {x10E3/uL} (Normal) Range: 150-379 RDW 13.9 % (Normal) Range: 12.3-15.4 MCHC 33.3 g/dL (Normal) Range: 31.5-35.7 MCH 29.4 pg (Normal) Range: 26.6-33.0 MCV 88 fL (Normal) Range: 79-97 Hematocrit 41.4 % (Normal) Range: 37.5-51.0 Hemoglobin 13.8 g/dL (Normal) Range: 12.6-17.7 RBC 4.69 {x10E6/uL} (Normal) Range: 4.14-5.80 WBC 6.7 {x10E3/uL} (Normal) Range: 3.4-10.8 45-Vnv-042921:56 CBC, PLATELETS & MANUAL Comments: PATIENT NOT FASTINGPERFORMED BY: [facility] Fmfvcu0838 [facility] [id number] Information: [id number] DIFF ([id number]) Immature Grans (Abs) 0.0 {x10E3/uL} (Normal) Range: 0.0-0.1 Immature Granulocytes 0 % (Normal) Baso (Absolute) 0.0 {x10E3/uL} (Normal) Range: 0.0-0.2 Eos (Absolute) 0.0 {x10E3/uL} (Normal) Range: 0.0-0.4 Monocytes(Absolute) 0.5 {x10E3/uL} (Normal) Range: 0.1-0.9 Lymphs (Absolute) 1.4 {x10E3/uL} (Normal) Range: 0.7-3.1 Neutrophils (Absolute) 5.8 {x10E3/uL} (Normal) Range: 1.4-7.0 Basos 0 % (Normal) Eos 0 % (Normal) Monocytes 7 % (Normal) Lymphs 18 % (Normal) Neutrophils 75 % (Normal) Platelets 198 {x10E3/uL} (Normal) Range: 150-379 RDW 14.0 % (Normal) Range: 12.3-15.4 MCHC 33.7 g/dL (Normal) Range: 31.5-35.7 MCH 29.8 pg (Normal) Range: 26.6-33.0 MCV 88 fL (Normal) Range: 79-97 Hematocrit 41.2 % (Normal) Range: 37.5-51.0 Hemoglobin 13.9 g/dL (Normal) Range: 12.6-17.7 RBC 4.66 {x10E6/uL} (Normal) Range: 4.14-5.80 WBC 7.7 {x10E3/uL} (Normal) Range: 3.4-10.8 25-Mmc-286905:28 Metabolic Panel, Comprehensive Comments: PATIENT NOT FASTINGPERFORMED BY: [facility]6370 [facility] [id number] ([id number]) ALT (SGPT) 7 [iU]/L (Normal) Range: 0-44 AST (SGOT) 23 [iU]/L (Normal) Range: 0-40 Alkaline Phosphatase, S 107 [iU]/L (Normal) Range: 39-117 Bilirubin, Total 0.5 mg/dL (Normal) Range: 0.0-1.2 A/G Ratio 2.3 (Normal) Range: 1.1-2.5 Globulin, Total 1.8 g/dL (Normal) Range: 1.5-4.5 Albumin, Serum 4.2 g/dL (Normal) Range: 3.5-5.5 Protein, Total, Serum 6.0 g/dL (Normal) Range: 6.0-8.5 Calcium, Serum 9.5 mg/dL (Normal) Range: 8.7-10.2 Carbon Dioxide, Total 24 mmol/L (Normal) Range: 18-29 Chloride, Serum 103 mmol/L (Normal) Range: 97-108 Potassium, Serum 4.4 mmol/L (Normal) Range: 3.5-5.2 Sodium, Serum 144 mmol/L (Normal) Range: 134-144 BUN/Creatinine Ratio 15 (Normal) Range: 9-20 eGFR If Africn Am 81 mL/min/1.73 (Normal) eGFR If NonAfricn Am 70 mL/min/1.73 (Normal) Creatinine, Serum 1.14 mg/dL (Normal) Range: 0.76-1.27 BUN 17 mg/dL (Normal) Range: 6-24 Glucose, Serum 99 mg/dL (Normal) Range: 65-99 41-Lfh-152887:28 CBC, Platelets & Auto Comments: PATIENT NOT FASTINGPERFORMED BY: [facility]6370 [facility] [id number] Information: [id number] Diff ([id number]) Immature Grans (Abs) 0.0 {x10E3/uL} (Normal) Range: 0.0-0.1 Immature Granulocytes 0 % (Normal) Baso (Absolute) 0.0 {x10E3/uL} (Normal) Range: 0.0-0.2 Eos (Absolute) 0.0 {x10E3/uL} (Normal) Range: 0.0-0.4 Monocytes(Absolute) 0.5 {x10E3/uL} (Normal) Range: 0.1-0.9 Lymphs (Absolute) 1.0 {x10E3/uL} (Normal) Range: 0.7-3.1 Neutrophils (Absolute) 5.4 {x10E3/uL} (Normal) Range: 1.4-7.0 Basos 0 % (Normal) Eos 0 % (Normal) Monocytes 7 % (Normal) Lymphs 15 % (Normal) Neutrophils 78 % (Normal) Platelets 206 {x10E3/uL} (Normal) Range: 150-379 RDW 14.1 % (Normal) Range: 12.3-15.4 MCHC 33.9 g/dL (Normal) Range: 31.5-35.7 MCH 29.5 pg (Normal) Range: 26.6-33.0 MCV 87 fL (Normal) Range: 79-97 Hematocrit 39.5 % (Normal) Range: 37.5-51.0 Hemoglobin 13.4 g/dL (Normal) Range: 12.6-17.7 RBC 4.55 {x10E6/uL} (Normal) Range: 4.14-5.80 WBC 6.9 {x10E3/uL} (Normal) Range: 3.4-10.8 :28 TSH ([id number]) Comments: PATIENT NOT FASTINGPERFORMED BY: [facility] Bvevao8455 [facility] [id number] TSH 3.600 {uIU/mL} (Normal) Range: 0.450-4.500 :06 HgA1C , Office (27115) Comments: 5.9 HgA1C , Office 5.9 % (Normal) Range: 4.6 - 7.1 :06 Blood Glucose , Office ([id number]) Blood Glucose , Office 91 (Normal) :06 Urinalysis, Office (45906) UA - LEUKOCYTE ESTERASE Negative (Normal) UA - NITRITE Negative (Normal) URINE UROBILINGN SALMA TIMED Normal mg/dL (Normal) UA - PROTEIN Negative mg/dL (Normal) UA - PH 6 (Abnormal) UA - BLOOD Negative (Normal) UA - SPECIFIC GRAVITY 1.010 (Normal) UA - KETONES Negative mg/dL (Normal) UA - BILIRUBIN Negative (Normal) UA - GLUCOSE Negative (Normal) 12-Lwv-050152:06 CBC, PLATELETS & MANUAL Comments: PATIENT NOT FASTINGPERFORMED BY: [facility]Saint [facility] CenterTlkocb4391 [facility] [id number] Information: [id number] DIFF ([id number]) Immature Grans (Abs) 0.0 {x10E3/uL} (Normal) Range: 0.0-0.1 Immature Granulocytes 0 % (Normal) Baso (Absolute) 0.0 {x10E3/uL} (Normal) Range: 0.0-0.2 Eos (Absolute) 0.0 {x10E3/uL} (Normal) Range: 0.0-0.4 Monocytes(Absolute) 0.5 {x10E3/uL} (Normal) Range: 0.1-0.9 Lymphs (Absolute) 1.1 {x10E3/uL} (Normal) Range: 0.7-3.1 Neutrophils (Absolute) 4.5 {x10E3/uL} (Normal) Range: 1.4-7.0 Basos 0 % (Normal) Eos 0 % (Normal) Monocytes 8 % (Normal) Lymphs 18 % (Normal) Neutrophils 74 % (Normal) Platelets 214 {x10E3/uL} (Normal) Range: 150-379 RDW 13.9 % (Normal) Range: 12.3-15.4 MCHC 33.4 g/dL (Normal) Range: 31.5-35.7 MCH 29.6 pg (Normal) Range: 26.6-33.0 MCV 89 fL (Normal) Range: 79-97 Hematocrit 38.9 % (Normal) Range: 37.5-51.0 Hemoglobin 13.0 g/dL (Normal) Range: 12.6-17.7 RBC 4.39 {x10E6/uL} (Normal) Range: 4.14-5.80 WBC 6.1 {x10E3/uL} (Normal) Range: 3.4-10.8 :50 CBC, PLATELETS & MANUAL Comments: PATIENT NOT FASTINGPERFORMED BY: [place] [id number] [facility] [id number] Information: [id number] DIFF ([id number]) Immature Grans (Abs) 0.0 {x10E3/uL} (Normal) Range: 0.0-0.1 Immature Granulocytes 0 % (Normal) Baso (Absolute) 0.0 {x10E3/uL} (Normal) Range: 0.0-0.2 Eos (Absolute) 0.0 {x10E3/uL} (Normal) Range: 0.0-0.4 Monocytes(Absolute) 0.4 {x10E3/uL} (Normal) Range: 0.1-0.9 Lymphs (Absolute) 1.1 {x10E3/uL} (Normal) Range: 0.7-3.1 Neutrophils (Absolute) 4.2 {x10E3/uL} (Normal) Range: 1.4-7.0 Basos 0 % (Normal) Eos 0 % (Normal) Monocytes 7 % (Normal) Lymphs 19 % (Normal) Neutrophils 74 % (Normal) Platelets 229 {x10E3/uL} (Normal) Range: 150-379 RDW 13.6 % (Normal) Range: 12.3-15.4 MCHC 34.2 g/dL (Normal) Range: 31.5-35.7 MCH 29.5 pg (Normal) Range: 26.6-33.0 MCV 86 fL (Normal) Range: 79-97 Hematocrit 40.1 % (Normal) Range: 37.5-51.0 Hemoglobin 13.7 g/dL (Normal) Range: 12.6-17.7 RBC 4.64 {x10E6/uL} (Normal) Range: 4.14-5.80 WBC 5.7 {x10E3/uL} (Normal) Range: 3.4-10.8 :50 CBC, PLATELETS & MANUAL Comments: PATIENT NOT FASTINGPERFORMED BY: [facility]6370 [facility] [id number] Information: [id number] DIFF ([id number]) Immature Grans (Abs) 0.0 {x10E3/uL} (Normal) Range: 0.0-0.1 Immature Granulocytes 0 % (Normal) Baso (Absolute) 0.0 {x10E3/uL} (Normal) Range: 0.0-0.2 Eos (Absolute) 0.0 {x10E3/uL} (Normal) Range: 0.0-0.4 Monocytes(Absolute) 0.6 {x10E3/uL} (Normal) Range: 0.1-0.9 Lymphs (Absolute) 1.3 {x10E3/uL} (Normal) Range: 0.7-3.1 Neutrophils (Absolute) 6.3 {x10E3/uL} (Normal) Range: 1.4-7.0 Basos 0 % (Normal) Eos 0 % (Normal) Monocytes 7 % (Normal) Lymphs 16 % (Normal) Neutrophils 77 % (Normal) Platelets 193 {x10E3/uL} (Normal) Range: 150-379 RDW 13.3 % (Normal) Range: 12.3-15.4 MCHC 33.7 g/dL (Normal) Range: 31.5-35.7 MCH 29.8 pg (Normal) Range: 26.6-33.0 MCV 88 fL (Normal) Range: 79-97 Hematocrit 38.9 % (Normal) Range: 37.5-51.0 Hemoglobin 13.1 g/dL (Normal) Range: 12.6-17.7 RBC 4.40 {x10E6/uL} (Normal) Range: 4.14-5.80 WBC 8.2 {x10E3/uL} (Normal) Range: 3.4-10.8 98-Plv-201489:42 CBC, PLATELETS & MANUAL Comments: PATIENT NOT FASTINGPERFORMED BY: [facility]CoSaint [facility] CenterOxidyo4763 [facility] [id number] Information: [id number] DIFF ([id number]) Immature Grans (Abs) 0.0 {x10E3/uL} (Normal) Range: 0.0-0.1 Immature Granulocytes 0 % (Normal) Baso (Absolute) 0.0 {x10E3/uL} (Normal) Range: 0.0-0.2 Eos (Absolute) 0.0 {x10E3/uL} (Normal) Range: 0.0-0.4 Monocytes(Absolute) 0.5 {x10E3/uL} (Normal) Range: 0.1-0.9 Lymphs (Absolute) 1.5 {x10E3/uL} (Normal) Range: 0.7-3.1 Neutrophils (Absolute) 4.9 {x10E3/uL} (Normal) Range: 1.4-7.0 Basos 1 % (Normal) Eos 0 % (Normal) Monocytes 7 % (Normal) Lymphs 22 % (Normal) Neutrophils 70 % (Normal) Platelets 323 {x10E3/uL} (Normal) Range: 150-379 RDW 13.6 % (Normal) Range: 12.3-15.4 MCHC 33.2 g/dL (Normal) Range: 31.5-35.7 MCH 29.6 pg (Normal) Range: 26.6-33.0 MCV 89 fL (Normal) Range: 79-97 Hematocrit 38.5 % (Normal) Range: 37.5-51.0 Hemoglobin 12.8 g/dL (Normal) Range: 12.6-17.7 RBC 4.33 {x10E6/uL} (Normal) Range: 4.14-5.80 WBC 7.0 {x10E3/uL} (Normal) Range: 3.4-10.8 :44 MRSA Wound DNA by PCR Comments: Specimen Source? NASAL, [facility] [id number] [place], [place], [id number] SA RESULT NEGATIVE (Normal) MRSA RESULT Negative (Normal) :53 CBC, PLATELETS & MANUAL Comments: PATIENT NOT FASTINGPERFORMED BY: [facility] [id number] [facility] [id number] Information: [id number] DIFF (41968) Immature Grans (Abs) 0.0 {x10E3/uL} (Normal) Range: 0.0-0.1 Immature Granulocytes 0 % (Normal) Baso (Absolute) 0.0 {x10E3/uL} (Normal) Range: 0.0-0.2 Eos (Absolute) 0.0 {x10E3/uL} (Normal) Range: 0.0-0.4 Monocytes(Absolute) 0.6 {x10E3/uL} (Normal) Range: 0.1-0.9 Lymphs (Absolute) 1.1 {x10E3/uL} (Normal) Range: 0.7-3.1 Neutrophils (Absolute) 8.2 {x10E3/uL} (Abnormal) Range: 1.4-7.0 Basos 0 % (Normal) Eos 0 % (Normal) Monocytes 6 % (Normal) Lymphs 11 % (Normal) Neutrophils 83 % (Normal) Platelets 341 {x10E3/uL} (Normal) Range: 150-379 RDW 13.4 % (Normal) Range: 12.3-15.4 MCHC 33.0 g/dL (Normal) Range: 31.5-35.7 MCH 29.0 pg (Normal) Range: 26.6-33.0 MCV 88 fL (Normal) Range: 79-97 Hematocrit 38.8 % (Normal) Range: 37.5-51.0 Hemoglobin 12.8 g/dL (Normal) Range: 12.6-17.7 RBC 4.42 {x10E6/uL} (Normal) Range: 4.14-5.80 WBC 10.1 {x10E3/uL} (Normal) Range: 3.4-10.8 :13 PSA (PROSTATE SPECIFIC Comments: PATIENT NOT FASTINGPERFORMED BY: [employer] [place])[address] [facility] [id number] ANTIGEN) (V76.44) Prostate Specific Ag, 1.2 ng/mL (Normal) Range: 0.0-4.0 Serum Comments: [employer] ECLIA methodology. .According to the [employer], Serum PSA shoulddecrease and remain at undetectable levels after radicalprostatectomy. The AUA defines biochemical recurrence as an initialPSA value 0.2 ng/mL or greater followed by a subsequent confirmatoryPSA value 0.2 ng/mL or greater.Values obtained with d ifferent assay methods or kits cannot be usedinterchangeably. Results cannot be interpreted as absolute evidenceof the presence or absence of malignant disease. :13 Hemoglobin Glyclated (HGB A1C) Comments: PATIENT NOT FASTINGPERFORMED BY: tamycaox RoadDublin [place] [id number] ([id number]) Hemoglobin A1c 6.0 % (Abnormal) Range: 4.8-5.6 Comments: . Pre-diabetes: 5.7 - 6.4 Diabetes: >6.4 Glycemic control for adults with diabetes: <7.0 [id number] DHEA-S (DEHYDROEPIANDROSTERONE Comments: PATIENT NOT FASTINGPERFORMED BY: [place] [id number] [facility] [id number] SULFATE) ([id number]) DHEA-Sulfate 133.8 ug/dL (Normal) Range: 48.9-344.2 08-Oeh-005981:13 TESTOSTERONE TOTAL (88052) Comments: PATIENT NOT FASTINGPERFORMED BY: [place] [id number] [facility] [id number] Comment: TESTM (Normal) Comments: Adult male reference interval is based on a population of lean malesup to 40 years old. Testosterone, Serum 529 ng/dL (Normal) Range: 348-1197 [id number]-Nfm-477246:13 TSH (14951) Comments: PATIENT NOT FASTINGPERFORMED BY: [id number] [id number] TSH 2.910 {uIU/mL} (Normal) Range: 0.450-4.500 31-Hlg-669318:13 METABOLIC PANEL, COMPREHENSIVE Comments: PATIENT NOT FASTINGPERFORMED BY: [place] [id number] [facility] [id number] ([id number]) ALT (SGPT) 7 [iU]/L (Normal) Range: 0-44 AST (SGOT) 17 [iU]/L (Normal) Range: 0-40 Alkaline Phosphatase, S 107 [iU]/L (Normal) Range: 39-117 Bilirubin, Total 0.5 mg/dL (Normal) Range: 0.0-1.2 A/G Ratio 2.0 (Normal) Range: 1.1-2.5 Globulin, Total 2.1 g/dL (Normal) Range: 1.5-4.5 Albumin, Serum 4.3 g/dL (Normal) Range: 3.5-5.5 Protein, Total, Serum 6.4 g/dL (Normal) Range: 6.0-8.5 Calcium, Serum 9.5 mg/dL (Normal) Range: 8.7-10.2 Carbon Dioxide, Total 25 mmol/L (Normal) Range: 18-29 Chloride, Serum 99 mmol/L (Normal) Range: 97-108 Potassium, Serum 4.7 mmol/L (Normal) Range: 3.5-5.2 Sodium, Serum 138 mmol/L (Normal) Range: 134-144 BUN/Creatinine Ratio 12 (Normal) Range: 9-20 eGFR If Africn Am 83 mL/min/1.73 (Normal) eGFR If NonAfricn Am 72 mL/min/1.73 (Normal) Creatinine, Serum 1.12 mg/dL (Normal) Range: 0.76-1.27 BUN 13 mg/dL (Normal) Range: 6-24 Glucose, Serum 92 mg/dL (Normal) Range: 65-99 92-Cdg-168911:13 CBC W/AUTO DIFF WBC Comments: PATIENT NOT FASTINGPERFORMED BY: [facility] CenterAotwzm8[facility] [id number] Information: [id number] ([id number]) Immature Grans (Abs) 0.0 {x10E3/uL} (Normal) Range: 0.0-0.1 Immature Granulocytes 0 % (Normal) Baso (Absolute) 0.0 {x10E3/uL} (Normal) Range: 0.0-0.2 Eos (Absolute) 0.2 {x10E3/uL} (Normal) Range: 0.0-0.4 Monocytes(Absolute) 0.4 {x10E3/uL} (Normal) Range: 0.1-0.9 Lymphs (Absolute) 1.3 {x10E3/uL} (Normal) Range: 0.7-3.1 Neutrophils (Absolute) 4.0 {x10E3/uL} (Normal) Range: 1.4-7.0 Basos 1 % (Normal) Eos 3 % (Normal) Monocytes 7 % (Normal) Lymphs 21 % (Normal) Neutrophils 68 % (Normal) Platelets 265 {x10E3/uL} (Normal) Range: 150-379 RDW 14.5 % (Normal) Range: 12.3-15.4 MCHC 33.3 g/dL (Normal) Range: 31.5-35.7 MCH 28.7 pg (Normal) Range: 26.6-33.0 MCV 86 fL (Normal) Range: 79-97 Hematocrit 40.0 % (Normal) Range: 37.5-51.0 Hemoglobin 13.3 g/dL (Normal) Range: 12.6-17.7 RBC 4.63 {x10E6/uL} (Normal) Range: 4.14-5.80 WBC 5.9 {x10E3/uL} (Normal) Range: 3.4-10.8 Plan of Care Name Dates Details Instructions Essential hypertension : Follow up in 2 -3weeks- rec k bp Indication: Essential hypertension Essential hypertension : Diet, Exercise, and Wt loss Indication: Essential hypertension Essential hypertension : HTN/CAD Red Flags Indication: Essential hypertension BMI 28.0-28.9,adult : Eprescribed prescriptions (G8553) Indication: BMI 28.0-28.9,adult Essential hypertension : Continue Current Prescription(s) Indication: Essential hypertension Controlled diabetes mellitus : Follow up in 4 months Indication: Controlled diabetes mellitus Controlled diabetes mellitus : *Diabetes Education Indication: Controlled diabetes mellitus Mild intermittent asthma without complication : Continue Current Prescription(s) Indication: Mild intermittent asthma without complication Essential hypertension : BP MONITORING - SELF Indication: Essential hypertension Altered mental state : Reviewed Diagnostic Tests Indication: Altered mental state Altered mental state : Reviewed Corner Former Letter Indication: Altered mental state Altered mental status, unspecified altered mental status type : Reviewed Lab Indication: Altered mental status, unspecified altered mental status type Altered mental status, unspecified altered mental status type : Reviewed Diagnostic Tests Indication: Altered mental status, unspecified altered mental status type Altered mental status, unspecified altered mental status type : Reviewed Corner Former Letter Indication: Altered mental status, unspecified altered mental status type BMI 28.0-28.9,adult : Eprescribed prescriptions (G8553) Indication: BMI 28.0-28.9,adult Cellulitis of lower extremity, unspecified laterality : Continue Current Prescription(s) Indication: Cellulitis of lower extremity, unspecified laterality Cellulitis of lower extremity, unspecified laterality : Eprescribed prescriptions (G8553) Indication: Cellulitis of lower extremity, unspecified laterality Cellulitis of lower extremity, unspecified laterality : Follow up if no improvement or if symptoms worsen Indication: Cellulitis of lower extremity, unspecified laterality BMI 29.0-29.9,adult : Eprescribed prescriptions (G8553) Indication: BMI 29.0-29.9,adult Essential hypertension : Follow up in 3 weeks Indication: Essential hypertension Essential hypertension : BP MONITORING - SELF Indication: Essential hypertension Cellulitis of lower extremity, unspecified laterality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 acute, Allergic state, sequela [facility] Phone Encounter On: 19-Aug-2015 13:32 Encounter Diagnosis: Unspecified Diagnosis End: 19-Aug-2015 13:36 [facility] Office Visit On: 05-Aug-2015 9:47 Encounter Reason: Sinusitis - The last clinic visit was month(s) ago (2011). No changes in management were made at the last visit. Symptoms include nasal congestion, forehead pressure, cough and headache. The patient vickie End: 05-Aug-2015 14:34 cribes this as moderate in severity and unchanged. The patient is not currently being treated for this problem.Encounter Diagnosis: UNSPECIFIED TYPE SCHIZOPHRENIA, UNSPECIFIED STATE (295.90), SINUSITIS, ACUTE NOS (461.9), Tobacco dependence, Cannabis abuse, Controlled diabetes mellitus, Essential hypertension, Mixed erectile dysfunction, Adverse reaction to drug, initial encounter, COPD with acute exacerbation (Renamed from Acute exacerbation of chronic obstructive airways disease), Encounter for screening for malignant neoplasm of prostate (Renamed from Screening for prostate cancer) [facility] Payers [facility]/My Christopher Sosa; a guarantor
--- OUTSIDE RECORDS SUMMARY | 2018-10-15 01:38 | XMS RPT_ITS | Continuity of Care Document ---
:1955 Author Organization [facility] Address [address] [facility] [address] [place] [address] Phone Care Team Providers Name Role Phone Dhara Taylor DO Unavailable [facility] Unavailable [place] [facility] Unavailable MALVIN Turner Unavailable Unavailable Unavailable Unavailable Problems Name Dates [...] Active Schizophrenia (F20.9, 295.90) Comments: managed by [facility] Status: Active Smoker (F17.200, 305.1) Status: Active [...] needed only -one puff twice a day Tabby Allergy 180 MG Oral Tablet 1 (one) Tablet daily for 0 days Quantity: 30 {Tablet} Refills: 0 Ordered:12-Aug-2018 Olga Seay Start : 12-Aug-2018 End : 21-May-2018 Active Aspirin 325 MG Oral Tablet Delayed Release [...] 0 days Quantity: 30 {Tablet} Refills: 3 Ordered:12-Aug-2018 Olga Seay Start : 12-Aug-2018 Active [facility] Fluticasone Propionate 50 MCG/ACT Nasal Suspension 1 (one) [place] qd for 0 days Quantity: 1 {Container} [...] DO, DO, Kathleen Start : 23-Apr-2018 Active HydroCHLOROthiazide 25 MG Oral Tablet 1 (one) Tablet qam for 0 days Quantity: 30 {Tablet} Refills: 3 Ordered:15-Aug-2018 Sally Taylor DO, DO, Kathleen Start : 15-Aug-2018 Active Lisinopril 20 MG Oral Tablet 1 (one) Tablet bid for 30 days Quantity: 60 {Tablet} Refills: 3 Ordered:15-Aug-2018 Sally Taylor DO, DO, Kathleen Start : 15-Aug-2018 Active LORazepam 1 MG Oral Tablet 1 [...] : 20-May-2017 Active Comments:Medication taken as needed. BACTROBAN NASAL, 2% (Nasal Ointment) 1 (one) [...] brain normalmental status back to baseline per editor map- Isaac Status: Resolved as of 21-May-2018 BMI 28.0-28.9,adult (Z68.28, V85.24) Status: Resolved as of 21-May-2018 BMI 29.0-29.9,adult (Z68.29, V85.25) Status: Inactive as of 02-May-2018 Cannabis abuse (F12.10, 305.20) Comments: per telephonic nurse case manager knowledge -inactive Status: Inactive as of 21-May-2018 [...] for Tdap vaccination (Renamed from Need for senpdodbeb-yabmldq-uvhsmbjqe (Tdap) vaccine, adult/adolescent) (Z23, V06.1) Status: Resolved [...] V58.32) Comments: sutures placed in ER at [facility] Status: Inactive as of 29-Oct-2017 Weakness (R53.1, 780.79) Comments: is reducing depakote per self, sees psych Asteka Status: Inactive as of 10-Jan-2017 Procedures Procedure Dates Details Tonsillectomy Completed Date Value Details 08-May-2018 History and Physical Exam Result: Comments: See Note; NOTES: [facility] Medical Records Department [address] [place] [address] History and Physical 05/08/182104 MR#: [id number] Acct: [id number] Name: CHARISSA SOSA UL E Rep #: [id number] : 1955 62 From: Kristal Larsen PCP: [...] diabetes mellitus Status: Chronic Qualifiers: Diabetes mellitus rn long term care insulin use: without rn long term care use Diabetes mellitus complication statu s: without complication Qualified Code(s): E11.9 - Type 2 diabetes mellitus without complications (6) Bilateral leg edema Status: Chronic History of Present Illness Date of Admission: 05/08/18 Chief C omplaint: Worsened confusion The patient is a 62 y/o M, Living in Retirement w/ PMHx: Schizophrenia w/ Prior Suicide Attempts, [...] be performed who now re-presents to the [facility] ED on 05/08/18 with confusion and noted aud itory hallucinations with chcf confirmed taking his schizophrenia medications, failure to understand how to perform basic tasks he normally performs over the last 48 hours with PCP and snf discussion with patient and now willingness to have MRI performed. snf notes that this is very different from [...] Anxiety, Depression, Prior suicide attempt, Schizophrenia Lives: Prison Smoking Status: Current every day smoker Tobacco [...] 05/08/18 16:13 0 05/08/18 20:30 05/08/18 20:30 08/02/18 20:30 05/08/18 20:30 Oxygen Delivery Method Room [...] is a 62 y/o M, Living in Retirement w/ PMHx: Schizophrenia w/ Prior Suicide Attempts, Tobacco use, Chronic COPD, Diabet es mellitus type II, CHF Unclear Type, PVD w/ chronic BL LE lymphedema, LLE Venous Stasis Ulcer following [facility] who presents to the [facility] ED on 05/08/18 with confusion and noted auditory halluci nations with snf confirmed taking his schizophrenia medications, failure to understand how to perform basic tasks he normally performs over the last 48 hours with PCP and snf discussion wi th patient and now willingness [...] Lovenox. Code Visit OBSV E AND M: 62459 Initial observation care L3 05/08/182139 <Electronically signed by Kristal Larsen > Date Kristal Larsen Cosigner Signature: Date (if applicable) CC: Kristal Larsen; Dhara Taylor DO Signed 08-May-2018 Emergency Department Summary Result: Comments: See Note; NOTES: [facility] Medical Records Department [address] [place] [address] Emergency Department Summary 05/08/18 1748 MR#: [id number] Acct: [id number] Name: AJIT SOSA Sera Rep #: [id number] : 1955 62 From: Petrona Rios MD PCP: Dhara Taylor DO Status: REG ER - ER Visit Summary Date of Service: 05/08/18 Chief Complaint: Confusion History of P resent Illness: The patient is a 62 M presenting with intermittent confusion. His staff member from his [facility] states that he has been confused intermittently since April 16. He was admitted at that time for TIA workup. During that admission patient refused MRI. He was seen again in the ED on May 02 for continued intermittent confusion. He refused MRI during the ED stay as well. Today chcf d iscussed with his primary care physician Dr. Taylor who feels the patient needs an MRI according to chcf staff and the patient. The patient is now agreeable to MRI. He was advised to come to the E D for further evaluation. snf staff states that he has been having [...] status, TIA This note was generated with Fooducate dictation software. It may contain inc orrect words, spelling, and punctuation that were not noted in review of the chart prior to signing ED Disposition - Plan for ED Patient: Chief Complaint: Confusion Referrals: Dhara Taylor DO [Pr imary Care Provider] - What to do if you have Problems For any increased pain, shortness of breath, bleeding, nausea or vomiting, chest pain, or any unexpected problems, contact your Primary Care Pr ovidharinder. Call Doctors Registry ([phone]) or report to the closest Emergency Room. Call 911 if necessary. 05/08/182128 <Electronically signed by Petrona Rios MD> Date _ Petrona Rios MD Cosigner Signature (If Indicated): Date CC: Dhara Taylor DO 08-May-2018 Brain/Head without Contrast Result: Comments: See Note; NOTES: [facility] Imaging Services [address] [place] [address] Brain/Head without Contrast MR#: [id number] Acct: [id number] Name: AJIT SOSA Rep #: [id number] : 1955 M 62 From: Lorne Augustine MD PCP: Dhara Taylor DO Status: REG ER Study: Brain/Head without Contrast Date of Exam: 05/08/18 Exam# [id number] Ordering Dr: Petrona Rios MD UDY: CT [...] CT scan of the brain. Electronically Signed: Lorne Augustine MD at 18 :37 EDT , Service support , CC: Petrona Rios MD; Dhara Taylor DO Natural Resource Manager: Signed 08-May-2018 Chest 1 View Result: Comments: See Note; NOTES: [facility] Imaging Services [address] [place] [address] Chest 1 View MR#: [id number] Acct: [id number] Name: AJIT SOSA Rep #: [id number] : M 62 From: Lorne Augustine MD PCP: Dhara Taylor DO Status: REG ER Study: Chest 1 View Date of Exam: 05/08/18 Exam# [id number] Ordering Dr: Petrona Rios MD STUDY: X-RAY [...] CC: Petrona Rios MD; Dhara Taylor DO Natural Resource Manager: Signed 06-May-2018 12 Lead Electrocardiogram Result: Comments: See Note; NOTES: [facility] Cardiovascular Services [address] [place] [address] 12 Lead EKG 05/02/18 1555 MR#: [id number] Acct: [id number] Name: AJIT SOSA Rep # : [id number] : 1955 62 From: Ajit Benavidez MD [...] Normal ECG Confirmed by PRAMOD ALSTON, AJIT ([id number]), movie editor DANNA LIZAMA ([id number]) on 05/06/2018 2:29:59 PM Referred By: VAISHALI Confirmed By:AJIT BENAVIDEZ MD 05/06/18 1430 Date Ajit Benavidez MD CC: Gabriela Barrett MD; Dhara Taylor DO Signed 03-May-2018 Emergency Department Summary Result: Comments: See Note; NOTES: [facility] Medical Records Department [address] [place] [address] Emergency Department Summary 05/02/18 1648 MR#: [id number] Acct: [id number] Name: AJIT SOSA Rep #: [id number] : 1955 62 From: Gabriela Barrett MD [...] presentation is not typical of his psychosis. snf staff member describes confusion with normal tasks [...] the week. Patient was monitored at the chcf o rick the weekend. I did speak with Dr. Carter to update her on the patient's findings and plan as the patient was sent in by Dr. Taylor. Treatment Plan: [] Disposition: Discharge Impression: 1. Repor melchor slurred speech, resolved 2. Schizoaffective disorder This note was generated with Fooducate dictation software. It may contain incorrect words, spelling, and punctuation that were not noted in revie w of the chart prior to signing ED Disposition - Plan for ED Patient: Disposition: Home or Assisted Living Chief Complaint: Alt LOC Instructions: ED Confusion, ED Transient Ischemic Attack Referrals: Counseling,Center [GROUP OF PHYSICIANS] - As soon as possible Dhara Taylor, DO [Primary Care Provider] - What to do if you have Problems For any increased pain, shortness of breath, bleeding, na usea or vomiting, chest pain, or any unexpected problems, contact your Primary Care Provider. Call Doctors Registry ([phone]) or report to the closest Emergency Room. Call 911 if necessary. 05/03 0028 <Electronically signed by Gabriela Barrett MD> Date Gabriela Barrett MD Cosigner Signature (If Indicated): Date ____ CC: Dharaga Taylor 02-May-2018 Discharge Instruction Result: Comments: See Note; NOTES: [facility] Medical Records Department [address] [place] [address] Discharge Instruction 05/02/182233 MR#: [id number] Acct: [id number] Name: Rolando SOSA Rep #: [id number] : 1955 62 From: Gabriela Barrett MD [...] Signature (If Indicated): Date CC: Dhara Taylor 02-May-2018 Brain/Head without Contrast Result: Comments: See Note; NOTES: [facility] Imaging Services [address] [place] [address] Brain/Head without Contrast MR#: [id number] Acct: [id number] Name: AJIT SOSA Rep #: [id number] : 1955 M 62 From: Edenilson Hernandez MD PCP: Dhara Taylor DO Status: REG ER Study: Brain/Head without Contrast Date of Exam: 05/02/18 Exam# [id number] Ordering Dr: Gabriela Barrett MD [facility] DY: CT BRAIN WITHOUT CONTRAST REASON FOR EXAM: Male, 62 years old. Confusion. RADIATION DOSAGE (If Supplied By Facility): CTDIvol = ( 44.99 ) mGy, DLP = ( 812.98 ) mGycm TECHNIQUE: Transaxial CT imag ing of the brain was performed without administration of intravenous contrast material. Individualized dose optimization techniques were used for this CT. COMPARISON: Noncontrast CT brain April 16 FINDINGS: Normal soft tissue structures. Normal calvarium. [...] CC: Gabriela Barrett MD; Dhara Taylor DO Natural Resource Manager: Signed 16-Apr-2018 Brain/Head without Contrast Result: Comments: See Note; NOTES: [facility] Imaging Services [address] [place] [address] Brain/Head without Contrast MR#: [id number] Acct: [id number] Name: AJTI SOSA Rep #: [id number] : 1955 M 62 From: Jackson Conde DO PCP: Dhara Taylor DO Status: REG Study: Brain/Head without Contrast Date of Exam: 04/16/18 Exam# [id number] Ordering Dr: Petrona Rios MD STUD Y: [...] Jackson Conde DO at 17:16 EDT Tel [phone], Service support [phone], CC: Petrona Rios MD; Dhara Taylor DO Natural Resource Manager: Signed 16-Apr-2018 Chest 1 View Result: Comments: See Note; NOTES: [facility] Imaging Services [address] [place] [address] Chest 1 View MR#: [id number] Acct: [id number] Name: AJIT SOSA Rep #: [id number] : M 62 From: Jackson Conde DO PCP: Dhara Taylor DO Status: PRE ER Study: Chest 1 View Date of Exam: 04/16/18 Exam# [id number] Ordering Dr: Petrona Rios MD STUDY: X-RAY [...] of the upper abdomen. ORDER # : [id number] RAD/Chest 1 View IMPRESSION: No acute cardiopulmonary disease or interval change. Electronically Signed: Jackson Conde DO at 16:55 EDT Tel [phone], Service support [phone], CC: Petrona Rios MD; Dhara Taylor DO Natural Resource Manager: Signed 16-Apr-2018 Emergency Department Summary Result: Comments: See Note; NOTES: [facility] Medical Records Department [address] [place] [address] Emergency Department Summary 04/16/18 0514 MR#: [id number] Acct: [id number] Name: AJIT SOSA Rep #: [id number] : 1955 62 From: Quentin Winkler MD PCP: Dhara Taylor DO Status: DEP ER - ER Visit Summary Date of Service: 04/16/18 Chief Complaint: Left arm pain History o f Present Illness: The patient is a 62 M presenting for evaluation secondary left arm pain. Patient has a underlying history of living in a chcf and has schizophrenia that is reasonably controlled [...] by a physician and his nursing supervisor dog license officer and was unable to take any sort [...] arm pain This note was generated with Fooducate dictation software. It may contain incorrect words, [...] your Primary Care Provider. Call Doctors Registry ([phone]) or report to the closest Emergency Room. Call 911 if necessary. 04/16/18 0717 <Electronically signed by Quentin Winkler MD> Date Quentin Winkler MD Cosigner Signature (If Indicated): Date CC: Dhara Taylor DO 21-Mar-2018 Wound Ctr History AND Physical Result: Comments: See Note; NOTES: [facility] Center [address] [place] [address] Wound Ctr History AND Physical 03/21/182028 MR#: [id number] Acct: [id number] Name: FELIX AlegriaAJIT Sera Rep #: [id number] : 1955 62 From: Samantha Manuel DO PCP: Dhara Taylor DO Status: REG RCR Y Location: (1) Ulcer of left borja with fat [...] Chronic Current Visit: Yes Qualifiers: Diabetes mellitus senior living insulin use: without rn long term care use Diabetes mellitus complication stat us: without [...] odor or drainage. He lives in a chcf and cares for himself with supervision from staff. He is accompanied today by his upper caser, Isaac. Past Medical History Charissa wong Medical [...] 09/23/16 - Family History Maternal Heart Disease Sharan bonilla Diabetes Sibling Hypertension Lives: - - chcf Smoking Status: Current every day smoker Tobacco [...] Date Recorded By Document 03/21/18 13:53 DL [id number] 14:14 DL Wound Center Nurse 1 [Ulcer Assessment] #2 left borja -Combined with other wound No -Current Size (cm) - Length 0.8 -Current Size (cm) - Width 0.7 WC - Nurse 2 - General Ulcer CM Notes Start : 03/21/18 13:50 Freq: Status: Active Protocol: Activity Type Activity Date Activity User E-Sign Co-Sign Detail Recorded Client Recorded Date Recorded By Document 06/15/18 15:45 DV [id number] 03/21/18 15:51 DV Psych/Mental Status: Flat Affect Debridement Note Post-Debridement Measurements/Treatment WC - Nurse 2 - General Ulcer CM Notes Start: 03/21/18 13:50 Freq: Status: Active Protocol: Activity Ty pe Activity Date Activity User E-Sign Co-Sign Detail Recorded Client Recorded Date Recorded By Document 03/21/18 15:45 DV [id number] 03/21/18 15:51 DV Wound Center Nurse 2 [...] Department Summary Result: Comments: See Note; NOTES: [facility] Medical Records Department [address] [place] [address] Emergency Department Summary 11/26/17 1320 MR#: [id number] Acct: [id number] Name: AJIT SOSA Rep #: [id number] : 1955 62 From: Blayne Caldwell DO [...] tremity cellulitis] This note was generated with Sabesimation software. It may contain incorrect words, spelling, [...] your Primary Care Provider. Call Doctors Registry ([phone]) or report to the closest Emergency Room. Call 911 if necess krish. 11/30/17 5975 <Electronically signed by Blayne Caldwell DO> Date Blayne Caldwell DO Cosigner Signature (If Indicated): Date _ CC: Dhara Taylor DO 26-Nov-2017 Venous Duplex Lower Extremity Result: Comments: See Note; NOTES: [facility] Cardiovascular Services [address] [place] [address] Venous Duplex US - Kane Extrem 11/26/17 1349 MR#: [id number] Acct: [id number] Name: AJIT SOSA Rep #: [id number] : 1955 62 From: Roger Carney MD [...] Date Dictated: 1349 Date Transcribed: 11/26/17 1522 Natural Resource Manager: Signed 26-Nov-2017 Discharge Instruction Result: Comments: See Note; NOTES: [facility] Medical Records Department [address] [place] [address] Discharge Instruction 11/26/17 1435 MR#: [id number] Acct: [id number] Name: Rolando SOSA Rep #: [id number] : 1955 62 From: Blayne Caldwell DO [...] your Primary Care Provider. Call Doctors Registry ([phone]) or report to the closest Emergency R oom. Call 911 if necessary. 11/26/17 1436 <Electronically signed by Blayne Caldwell DO> Date Blayne Caldwell DO Cosigner Signature (If Taylor cated): Date CC: Dhara Taylor DO 24-Aug-2017 Emergency Department Summary Result: Comments: See Note; NOTES: [facility] Medical Records Department [address] [place] [address] Emergency Department Summary 08/24/17 1433 MR#: [id number] Acct: [id number] Name: AJIT SOSA Rep #: [id number] : 1955 61 From: Hill Carrington DO [...] process. He reports he lives in a chcf and is receiving scheduled Risperdal and other [...] schizoaffective disorder This note was generated with Fooducate dictation software. It may contain incorrect words, [...] your Primary Care Provider. Call Doctors Registry ([phone]) or report to the closest Emergency Room. Call 911 if necessary. 08/24/17 1539 <Electronically signed by Hill Carrington DO> Date Hill Carrington DO Cosigner Signature (If Indicated): Date CC: Dhara Taylor DO 03-Apr-2017 Emergency Department Summary Result: Comments: See Note; NOTES: [facility] Medical Records Department [address] [place] [address] Emergency Department Summary MR#: [id number] Acct: [id number] Name: AJIT SOSA Rep #: [id number] : 1955 61 From: Wero Keating MD PCP: Dhara Taylor DO Status: [facility] DATE OF SERVICE: 03/30/2017 CHIEF COMPLAINT: Agitated. [...] Haldol and Cogentin, his night dose. Crisis u.s. representative came over, fully evaluated the patient and is having him transfe rred to [place], accepted by Dr. Huertas, appropriate emergency application, paperwork, labs and reports were given. The patient is stable for transfer. DIAGNOSIS: Acute paranoia. Obed Recinos C: Dhara Taylor DO T: [facility] JOB: [id number] 04/03/17805 <Electronically signed by Wero Keating MD> Date Wero Keating MD Cosigner Signature (If Indicated): Date CC: Dhara Taylor DO Date Dictated: 03/30/172204 Date Transcribed: 03/30/172204 Natural Resource Manager: Signed 02-Apr-2017 12 Lead Electrocardiogram Result: Comments: See Note; NOTES: [facility] Cardiovascular Services [address] [place] [address] 12 Lead EKG 03/30/172007 MR#: [id number] Acct: [id number] Name: AJIT SOSA Rep # : [id number] : 1955 61 From: Moises Richard MD [...] ECG Confirmed by MOISES RICHARD MD ([id number]), movie editor DANNA LIZAMA ([id number]) on 04/02/2017 2:26:02 PM Referred By: [facility] Confirmed By:MOISES RICHARD MD 04/02/17 1426 Date Moises Abdul CC: Dhara Taylor DO Date Dictated: 03/30/172007 Date Transcribed: 03/30/172007 Natural Resource Manager: Signed 17-Oct-2016 Emergency Department Summary Result: Comments: See Note; NOTES: [facility] Medical Records Department [address] [place] [address] Emergency Department Summary MR#: [id number] Acct: [id number] Name: AJIT SOSA Rep #: [id number] : 1955 60 From: Prakash Loza MD PCP: Dhara Taylor DO Status: DEP ER DATE OF SERVICE: 09/25/2016 METHOD OF ARRIVAL: EMS. CHIEF COMPLAINT: Delusions and paranoia. HIST ORY OF PRESENT ILLNESS: A 60-year-old male patient of Dr. Marshall who was sent here from the [facility] because he is having delusions and [...] auditory or visual hallucinations. He clearly has orthodox delusions. Insight and judgment is poor. The [...] Home, stable condition. IMPRESSION: 1. Paranoid delusions. Prakash Loza MD C C: [facility] T: [facility] JOB: [id number] 10/17/16 1719 <Electronically signed by Prakash Loza MD> Date Prakash Loza MD Cosigner Signature (If Indicated): Date __ CC: Dhara Taylor DO Date Dictated: 10/09/16615 Date Transcribed: 10/09/16615 Natural Resource Manager: Signed 27-Sep-2016 12 Lead Electrocardiogram Result: Comments: See Note; NOTES: [facility] Cardiovascular Services [address] [place] [address] 12 Lead EKG 09/25/16 2218 MR#: [id number] Acct: [id number] Name: AJIT SOSA Rep # : [id number] : 1955 60 From: Reji Hill MD Attending Dr: Status: DEP ER Ordering Dr: Gabriela Barrett MD Date: 09/25/16 Location: ED Sex: M C Admitted: Test Reason : [facility] Blood Pressure : / mmHG Vent. Rate : 086 BPM Atrial Rate : 086 BPM P-R Int : 144 ms QRS Dur : 068 ms QT Int : 364 ms P-R-T Axes : 088 071 066 degrees QTc Int : 435 ms Sinus rhythm with marked sinus arrhythmia Nonspe cific ST abnormality Abnormal ECG Confirmed by REJI HILL ([id number]), movie editor DANNA LIZAMA ([id number]) on 09/27/2016 12:52:12 PM Referred By: [facility] Confirmed By:REJI HILL 09/27/16 1252 Date Reji Hill MD CC: Dhara Taylor DO Date Dictated: 09/25/162217 Date Transcribed: 09/25/162217 Natural Resource Manager: Signed 25-Sep-2016 12 Lead Electrocardiogram Result: Comments: See Note; NOTES: [facility] Cardiovascular Services [address] [place] [address] 12 Lead EKG 09/23/16 0143 MR#: [id number] Acct: [id number] Name: AJIT SOSA Obed Rep # : [id number] : 1955 60 From: Ajit Benavidez MD [...] abnormality Confirmed by PRAMOD ALSTON, AJIT ([id number]), movie editor DANNA LIZAMA ([id number]) on 09/25/2016 10:18:06 AM Referred By: DR BUSTOS Confirmed By:AJIT BENAVIDEZ MD 09/25/16 1018 Date ___ Ajit Benavidez MD CC: Dhara Taylor DO Date Dictated: 09/23/16142 Date Transcribed: 09/23/16142 Natural Resource Manager: Signed 23-Sep-2016 Emergency Department Summary Result: Comments: See Note; NOTES: [facility] Medical Records Department [address] [place] [address] Emergency Department Summary MR#: [id number] Acct: [id number] Name: AJIT SOSA Rep #: [id number] : 1955 60 From: Quentin Bustos MD [...] acute vascular compromise. EMERGENCY DEPARTMENT COURSE: The p osmar does have flight of ideas and history [...] increasing pain. I do not feel this p osmar needs to be hospitalized given the chronicity of his symptoms, unremarkable examination and normal lab workup. He will be discharged. IMPRESSION: 1. Bilateral lower extremity venous stasis. 2. S chizophrenia. DISPOSITION: Discharged. Quentin Bustos MD T: [facility] JOB: [id number] 09/23/16 0539 <Electronically signed by Quentin Bustos MD> Date Quentin Bustos MD Cosigner Signature (If Indicated): Date CC: Dhara Taylor DO Date Dictated: 09/23/16238 Date Transcribed: 09/23/16238 Natural Resource Manager: Signed 23-Sep-2016 Discharge Instruction Result: Comments: See Note; NOTES: [facility] Medical Records Department [address] [place] [address] Discharge Instruction 09/23/16233 MR#: [id number] Acct: [id number] Name: Rolando SOSA Rep #: [id number] : 1955 60 From: Quentin Bustos MD [...] problems, contact your Primary Care Provider. Call [facility] ([phone]) or report to the closest Emergency Room. Call 911 if necessary. 09/23/16307 <Electronically signed by Quentin Bustos MD> Date Quentin Bustos MD Cosigner Signature (If Indicated): Da te CC: Dhara Taylor DO 11-May-2016 Emergency Department Summary Result: Comments: See Note; NOTES: [facility] Medical Records Department [address] [place] [address] Emergency Department Summary MR#: [id number] Acct: [id number] Name: AJIT SOSA Rep #: [id number] : 1955 60 From: Fina Barry MD PCP: Dhara Taylor DO Status: DEP ER DATE OF SERVICE: 05/09/2016 CHIEF COMPLAINT: Depressed mental status. HISTORY OF PRESENT ILLNESS: This is a 60-year-old male with a history of schizophrenia and other mental health issues. He has a social service agency director with him today, who typically sees him [...] evaluation. Fina valdovinos MD T: NTS JOB: [id number] 05/11/16 0946 <Electronically signed by Fina Barry MD> Date Fina Barry MD Cosigner Signature (If Indicated): Date CC: Dhara Taylor DO Date Dictated: 05/09/16 1140 Date Transcribed: 05/09/16 1140 Natural Resource Manager: Signed 09-May-2016 Discharge Instruction Result: Comments: See Note; NOTES: [facility] Medical Records Department [address] [place] [address] Discharge Instruction 05/09/16 1130 MR#: [id number] Acct: [id number] Name: AJIT SOSA Rep #: [id number] : [id number] 60 From: Fina Barry MD [...] problems, contact your doctor. Call [facility] ([phone]) or report to the closest Emergency Room. Call 911 if necessary. 05/09/16 1131 &am p;#60;Electronically signed by Fina Barry MD> Date Fina Barry MD Cosigner Signature (If Indicated): Date CC: Dhara Taylor DO 05-Aug-2015 EKG (43667) Comments: nsr no acutechg Result: [MEASUREMENTS ANALYSIS] Date of Test: 08/05/2015 11:03:50; Heart Rate: 63; TX Interval: 158; QRS: 90; QT Interval: 382; Corrected QT Interval (QTc): 387; P Wave [place]: 65; QRS Wave [place]: 69; T Wave [place]: 90; Blood Pressure: 158/94 [ECG DIAGNOSTIC STATEMENTS] [...] Active Vital Signs Date Test Result Details :51 Pulse 83 /min Comments: Pattern: Regular Respiration Rate 18 /min Comments: Pattern: Unlabored O2 SAT 97 % Comments: Room air BP Systolic 138 mm[Hg] Comments: Patient Position: Sitting; Cuff Location: Left Arm; Cuff Size: Large BP Diastolic 82 mm[Hg] Comments: Patient Position: Sitting; Cuff Location: Left Arm; Cuff Size: Large Weight 199 lb Height 70 in Body Mass Index Calculated 28.55 kg/m2 Body Surface Area Calculated 2.08 m2 :59 Temperature 98.4 f Comments: Method: Temporal [...] kg/m2 Body Surface Area Calculated 2.07 m2 :12 Pulse 97 /min Comments: Pattern: Regular Respiration [...] 1.99 m2 Results Date Description Value Details :21 Alanine Aminotransferas (SGPT) Comments: [facility] [address] [place], [place], [id number] ALT 14 U/L (Abnormal) Range: 16-61 97-Ymn-774235:21 Ammonia Comments: [facility] [address] [place], [id number] AMMONIA 12.0 umol/L (Normal) Range: 11-32 25-Dtq-755356:21 AST(SGOT) Comments: [facility] [address] [place], [address] AST 19 U/L (Normal) Range: 15-37 67-Xki-065588:21 Platelet Count Comments: [facility] U[address] [place], [address] PLT 182 K/mm3 (Normal) Range: 150-450 72-Lvs-217991:21 Prolactin Comments: [facility] [address] [place], [address] PROLACTIN 20.8 ng/mL (Normal) Comments: NORMAL REFERENCE RANGES FEMALE NON- 2.2 - 30.3 ng/mL 8.1 - 347.6 ng/mL POST-MENOPAUSAL 0.7 - 3 1.5 ng/mL MALE 2.5 - 17.4 ng/mLNEW TEST METHOD AND REFERENCE RANGES FEBRUARY 25, 201223-Jun-201834-Ijm-220448:21 Valproic Acid (Depakene) Level Comments: [facility] [address] [place], [address] VALPROIC ACID 87 ug/mL (Normal) Range: 50-100 52-Ulr-031580:10 Microscopic Examination Comments: PATIENT WAS FASTINGPERFORMED BY: [employer]70 [facility] [id number] Bacteria None seen (Normal) Mucus Threads Present (Normal) Epithelial Cells (non renal) None seen {/hpf} (Normal) Range: 0 - 10 RBC 0-2 {/hpf} (Normal) Range: 0 - 2 WBC 0-5 {/hpf} (Normal) Range: 0 - 5 27-Nqo-407332:10 TSH (00213) Comments: PATIENT WAS FASTINGPERFORMED BY: [employer] [facility] [id number] TSH 3.840 {uIU/mL} (Normal) Range: 0.450-4.500 17-Zkz-549430:10 URINALYSIS, W/ MICRO (33086) Comments: PATIENT WAS FASTINGPERFORMED BY: Image SocketDeborah Heart and Lung CenterYwskiu5871 [facility] [id number] Microscopic Examination See below: (Normal) Comments: Microscopic was indicated and was performed. Microscopic Examination MICRON (Normal) Comments: Microscopic follows if indicated. Nitrite, Urine Negative (Normal) Urobilinogen,Semi-Qn 0.2 mg/dL (Normal) Range: 0.2-1.0 Bilirubin Negative (Normal) Occult Blood Negative (Normal) Ketones Negative (Normal) Glucose Negative (Normal) Protein Negative (Normal) WBC Esterase Negative (Normal) Appearance Clear (Normal) Urine-Color Yellow (Normal) pH 7.0 (Normal) Range: 5.0-7.5 Specific [place] 1.017 (Normal) Range: 1.005-1.030 93-Bvr-862815:10 MICROALBUMIN: CREATININE RATIO Comments: PATIENT WAS FASTINGPERFORMED BY: Image SocketDeborah Heart and Lung CenterJhfdsr2185 [facility] [id number] (35157) AND (80752) Alb/Creat Ratio 56.7 {mg/g_creat} (Abnormal) Range: 0.0-30.0 Albumin, Urine 51.0 ug/mL (Normal) Creatinine, Urine 90.0 mg/dL (Normal) 10-Csn-234587:10 LIPID PANEL (86576) Comments: PATIENT WAS FASTINGPERFORMED BY: Image SocketDeborah Heart and Lung CenterHajpqe5628 [facility] [id number] LDL/HDL Ratio 1.5 {ratio} (Normal) Range: 0.0-3.6 [...] (Normal) Range: 100-199 :30 HgA1C , Office (17140) HgA1C , Office 5.8 % (Normal) Range: 4.6 - 7.1 :30 Blood Glucose , Office (94420) Blood Glucose , Office 123 (Normal) 68-Zoh-517818:54 Valproic Acid (62384) Comments: fax results [phone]; PATIENT NOT FASTINGPERFORMED BY: LabCoCogbooks Dxgtdk6092 [facility] [id number] Valproic Acid (Depakote)(R),S 67 ug/mL (Normal) Range: 50-100 Comments: Detection Limit = 4 <4 indicates None Detected . Toxicity may occur at levels of 100-500. Measurements of free unbound valproic acid may improve the assess- ment of clinical response. 79-Qxd-072033:54 CBC WITH MANUAL DIFF Comments: fax results [phone]; PATIENT NOT FASTINGPERFORMED BY: [facility] Kyvqlm9893 [facility] [id number] Information: NURSE DRAW (10262) Immature Grans (Abs) 0.0 {x10E3/uL} (Normal) Range: [...] 4.14-5.80 WBC 7.1 {x10E3/uL} (Normal) Range: 3.4-10.8 81-Crb-127153:54 Metabolic Panel, Comprehensive Comments: fax results [phone]; PATIENT NOT FASTINGPERFORMED BY: LabCoDeborah Heart and Lung CenterHmdxtn4169 [facility] [id number] (73983) ALT (SGPT) 7 [iU]/L (Normal) Range: 0-44 [...] 8-27 Glucose 107 mg/dL (Abnormal) Range: 65-99 12-Tzd-531872:54 AMMONIA (94980) Comments: fax results [phone]; PATIENT NOT FASTINGPERFORMED BY: [facility] Mvllkk[address] [place] [id number] Ammonia, Plasma 53 ug/dL (Normal) Range: 27-102 4-Tgd-946282:17 Bedside Glucose Comments: [facility] LaboratoryPoint of Vndh[address] [place] [address] BEDSIDE GLU 74 mg/dL (Normal) Range: 70-110 Comments: MANAGEMENT OF PATIENT CARE PER NURSING PROTOCOL 4-Nsx-641917:11 Urinalysis, Complete Comments: Order Date: 05/08/18How was Urine Obtained? CLEAN [facility] Ratfstvsbw020[address] [place], [address] MUCUS, URINE 0 SEEN {/hpf} [...] (Normal) CLARITY Clear (Normal) COLOR Yellow (Normal) 6-Kjo-307308:11 Urine Drug Screen (VISTA) Comments: [facility] Azmtbdpnmc1631 [facility] [place], [address] THC NEGATIVE (Normal) PCP NEGATIVE [...] TESTING MUST BE ORDERED SEPARATELY. USE TESTMNEMONIC: [facility] 8-Aew-955322:56 Alcohol, Blood (Medical)-Serum Comments: [facility] [address] [place], [place], [address] SERUM ETOH 5.0 mg/dL (Normal) Comments: The serum:whole blood ethanol ratio is approximately 1.14and varies slightly with hematocrit.Medical Alcohol reference interval and critical value innon-tolerant individuals; 50 - 100 Impairment 100 Intoxication 100 - 250 Severe Poisoning 250 - 400 Deep/possible fatal coma 8-Nce-821648:56 Basic Metabolic Profile (BMP) Comments: [facility] Amjcl[address]up[address] [place], [place], [address] GAP 3 (Abnormal) Range: 5-15 CO2 32.0 [...] Comments: Please note revised GLUCOSE reference range vavyrywds78/02/2018. :56 CBC W/Diff, Automated Comments: [facility] [address] [place], [place], [address] Absolute Lymph 1.81 {X10_3/ul} (Normal) Range: 0.83-4.51 [...] Range: 4.4-11.0 :56 Partial Thromboplast Time Comments: [facility] [address] [place], [place], [address] PTT 30.4 s (Normal) Range: 24.1-36.2 6-Yed-317394:56 Prothrombin Time w/INR Comments: [facility] [address] [place], [address] INR 1.2 (Normal) PROTIME 15.4 s (Abnormal) Range: 11.7-14.9 0-Irr-831156:56 Troponin-I Comments: [facility] Oz[address] [place], [address] TROPONIN-I < 0.015 ng/mL (Normal) Comments: TROPONIN-I EXPECTED VALUES <0.045 Negative 0.045 - 0.590 Consistent with Cardiac Damage > OR = 0.600 Critical Value Not every elevated troponin is indicative of NC. T hesevalues should be used with clinical judgement in examiningthe patient's clinical picture for diagnosis. To establisha diagnosis of NC versus myocardial injury, there must be ademonstrated rise and/ or fall in the troponin values, inaddition to ischemic symptoms, EKG changes, new regionalwall motion abnormality, and/or angiographical evidence. PLEASE NOTE: REFERENCE RANGES EDITED 02/17/1808-May-20185-Apv-134587:56 Valproic Acid (Depakene) Level Comments: [facility] [address] [place], [address] VALPROIC ACID 85 ug/mL (Normal) Range: 50-100 81-Mza-138794:00 Alcohol, Blood (Medical)-Serum Comments: [facility] [address] [place], [address] SERUM ETOH 10.0 mg/dL (Normal) Comments: The serum:whole blood ethanol ratio is approximately 1.14and varies slightly with hematocrit.Medical Alcohol reference interval and critical value innon-tolerant individuals; 50 - 100 Impairment 100 Intoxication 100 - 250 Severe Poisoning 250 - 400 Deep/possible fatal coma 79-Res-541977:00 Basic Metabolic Profile (BMP) Comments: [facility] [address] [place], [address] GAP 5 (Normal) Range: 5-15 CO2 30.0 [...] A.D.A. criteria.Please note revised GLUCOSE reference range enrzvfnpr08/02/2018. 80-Hpe-362339:00 CBC W/Diff, Automated Comments: [facility] [address] [place], [address] Absolute Lymph 1.48 {X10_3/ul} (Normal) Range: 0.83-4.51 [...] 4.6-6.2 WBC 6.1 K/mm3 (Normal) Range: 4.4-11.0 91-Fkf-134978:00 Liver Profile Comments: [facility] Wygkgwievg8284 [facility]. [place], [place], [address] D BILI 0.14 mg/dL (Normal) Range: 0.00-0.30 T BILI 0.40 mg/dL (Normal) Range: 0.20-1.00 ALT 15 U/L (Abnormal) Range: 16-61 ALK P 71 U/L (Normal) Range: 45-117 AST 15 U/L (Normal) Range: 15-37 GLOB 2.6 g/dL (Normal) Range: 2.2-4.2 ALB 3.3 g/dL (Normal) Range: 3.2-5.0 T PROT 5.9 g/dL (Abnormal) Range: 6.4-8.2 19-Mkf-663025:00 Troponin-I Comments: [facility] Ppxijmzozd2979 [facility]. [place], [place], [address] TROPONIN-I < 0.015 ng/mL (Normal) Comments: TROPONIN-I EXPECTED VALUES <0.045 Negative 0.045 - 0.590 Consistent with Cardiac Damage > OR = 0.600 Critical Value Not every elevated troponin is indicative of NC. T hesevalues should be used with clinical judgement in examiningthe patient's clinical picture for diagnosis. To establisha diagnosis of NC versus myocardial injury, there must be ademonstrated rise and/ or fall in the troponin values, inaddition to ischemic symptoms, EKG changes, new regionalwall motion abnormality, and/or angiographical evidence. PLEASE NOTE: REFERENCE RANGES EDITED 02/17/1802-May-201816-Bya-693016:00 Urinalysis, Complete Comments: Order Date: 05/02/18How was Urine Obtained? [facility] [address]pbk[address] [place], [place], [address] MUCUS, URINE 0 SEEN {/hpf} (Normal) BACTERIA [...] (Normal) CLARITY Clear (Normal) COLOR Yellow (Normal) 02-Nff-070189:00 Urine Drug Screen (VISTA) Comments: Order Date: 05/02/18[facility] [address] [place], [place], [address] THC NEGATIVE (Normal) PCP NEGATIVE (Normal) OPIATES [...] TESTING MUST BE ORDERED SEPARATELY. USE TESTMNEMONIC: [facility] 60-Eoo-304713:43 Valproic Acid (Depakene) Level Comments: [facility] [address] [place], [address] VALPROIC ACID 63 ug/mL (Normal) Range: 50-100 03-Gxz-987505:20 Basic Metabolic Profile (BMP) Comments: [facility] [address] [place], [address] GAP 7 (Normal) Range: 5-15 CO2 28.0 [...] Comments: Please note revised GLUCOSE reference range kolqdnkpi47/02/2018. 84-Gxv-865689:20 CBC W/Diff, Automated Comments: [facility] [address] [place], [address] Absolute Lymph 1.48 {X10_3/ul} (Normal) Range: 0.83-4.51 [...] 4.6-6.2 WBC 6.7 K/mm3 (Normal) Range: 4.4-11.0 29-Hwa-562814:20 Partial Thromboplast Time Comments: [facility] Fnwzbsqjke3078 [facility] [place], [address] PTT 30.6 s (Normal) Range: 24.1-36.2 37-Urc-437370:20 Prothrombin Time w/INR Comments: [facility] Onkpdwcusi[address] [facility] [place], [address] INR 1.1 (Normal) PROTIME 14.4 s (Normal) Range: 11.7-14.9 35-Gdo-040497:20 Troponin-I Comments: [facility] Mfuielkalh[address] [facility] [place], [address] TROPONIN-I < 0.015 ng/mL (Normal) Comments: TROPONIN-I EXPECTED VALUES <0.045 Negative 0.045 - 0.590 Consistent with Cardiac Damage > OR = 0.600 Critical Value Not every elevated troponin is indicative of NC. T hesevalues should be used with clinical judgement in examiningthe patient's clinical picture for diagnosis. To establisha diagnosis of NC versus myocardial injury, there must be ademonstrated rise and/ or fall in the troponin values, inaddition to ischemic symptoms, EKG changes, new regionalwall motion abnormality, and/or angiographical evidence. PLEASE NOTE: REFERENCE RANGES EDITED 02/17/1816-Apr-201805-Izu-874433:11 Bedside Glucose Comments: [facility] [place] [address] [address] [place] [address](492) BEDSIDE GLU 84 mg/dL (Normal) Range: 70-110 Comments: MANAGEMENT OF PATIENT CARE PER NURSING PROTOCOL 41-Dyq-189543:09 Anaerobic & Aerobic Comments: Left Leg; PATIENT NOT FASTINGPERFORMED BY: LabCoDeborah Heart and Lung CenterGfgzim0068 [facility] [id number] Information: LEFT LEG SRC:LG Culture (97178) Result 1 Mixed skin elvira (Normal) Aerobic Culture Final report (Normal) Result 1 NANG72 (Normal) Comments: No anaerobic growth in 72 hours. Anaerobic Culture Final report (Normal) 85-Epe-76007:17 Alanine Aminotransferas (SGPT) Comments: [address] [place], [address] ALT 15 U/L (Abnormal) Range: 16-61 19-Sdq-88811:17 AST(SGOT) Comments: [address], [address] AST 20 U/L (Normal) Range: 15-37 55-Iki-95786:17 Platelet Count Comments: [address], [address] PLT 178 K/mm3 (Normal) Range: 150-450 87-Tro-75164:17 Valproic Acid (Depakene) Level Comments: [address] [place], [address] VALPROIC ACID 73 ug/mL (Normal) Range: 50-100 79-Zbh-092361:05 Basic Metabolic Profile (BMP) Comments: [address], [address] GAP 4 (Abnormal) Range: 5-15 CO2 33.0 [...] Comments: Please note revised GLUCOSE reference range ocugxintp61/02/2018. 34-Wcu-072773:05 CBC W/Diff, Automated Comments: [facility] [address]wznxf[address] [place], [address] Absolute Lymph 1.28 {X10_3/ul} (Normal) Range: 0.83-4.51 [...] 4.6-6.2 WBC 6.7 K/mm3 (Normal) Range: 4.4-11.0 57-Zxi-285768:02 Microscopic Examination Comments: PATIENT WAS FASTINGPERFORMED BY: [employer] Qiqgbr8340 [facility] [id number] Bacteria Few (Normal) Mucus Threads Present (Normal) Epithelial Cells (non renal) None seen {/hpf} (Normal) Range: 0 - 10 RBC 0-2 {/hpf} (Normal) Range: 0 - 2 WBC 0-5 {/hpf} (Normal) Range: 0 - 5 05-Qur-661287:02 TSH (38488) Comments: PATIENT WAS FASTINGPERFORMED BY: Image SocketDeborah Heart and Lung CenterGahftj9380 [facility] [id number] TSH 3.530 {uIU/mL} (Normal) Range: 0.450-4.500 71-Ufg-468260:02 URINALYSIS, W/ MICRO (55769) Comments: PATIENT WAS FASTINGPERFORMED BY: Intelligent BeautyAscension St. [facility]6370 [facility] [id number] Microscopic Examination See below: (Normal) Comments: Microscopic was indicated and was performed. Microscopic Examination MICRON (Normal) Comments: Microscopic follows if indicated. Nitrite, Urine Negative (Normal) Urobilinogen,Semi-Qn 0.2 mg/dL (Normal) Range: 0.2-1.0 Bilirubin Negative (Normal) Occult Blood Negative (Normal) Ketones Negative (Normal) Glucose Negative (Normal) Protein Trace (Normal) WBC Esterase Negative (Normal) Appearance Clear (Normal) Urine-Color Yellow (Normal) pH 7.0 (Normal) Range: 5.0-7.5 Specific [place] 1.015 (Normal) Range: 1.005-1.030 97-Tul-787122:02 MICROALBUMIN: CREATININE RATIO Comments: PATIENT WAS FASTINGPERFORMED BY: Intelligent BeautyAsc[facility] St. [facility]6370 [facility] [id number] (39790) AND (36184) Alb/Creat Ratio 167.0 {mg/g_creat} (Abnormal) Range: 0.0-30.0 Albumin, Urine 110.4 ug/mL (Normal) Creatinine, Urine 66.1 mg/dL (Normal) 38-Bcj-457546:02 METABOLIC PANEL, COMPREHENSIVE Comments: PATIENT WAS FASTINGPERFORMED BY: Image SocketArtesia General HospitalTbfabg4571 [facility] [id number] (85565) ALT (SGPT) 16 [iU]/L (Normal) Range: 0-44 [...] Glucose, Serum 101 mg/dL (Abnormal) Range: 65-99 91-Qfg-205079:02 LIPID PANEL (68859) Comments: PATIENT WAS FASTINGPERFORMED BY: [employer] Pjxhlf3404 [facility] [id number] LDL/HDL Ratio 1.3 {ratio_units} (Normal) Range: 0.0-3.6 Comments: LDL/HDL Ratio Men Women 1/2 Avg.Risk 1.0 1.5 Av g.Risk 3.6 3.2 2X Avg.Risk 6.2 5.0 3X Avg.Risk 8.0 6.1 LDL Cholesterol Calc 64 mg/dL (Normal) Range: 0-99 VLDL Cholesterol Justo 16 mg/dL (Normal) Range: 5-40 HDL Cholesterol 50 mg/dL (Normal) Triglycerides 79 mg/dL (Normal) Range: 0-149 Cholesterol, Total 130 mg/dL (Normal) Range: 100-199 70-Dhn-484984:02 CBC W/AUTO DIFF WBC (90048) Comments: PATIENT WAS FASTINGPERFORMED BY: Qwayalin6370 [facility] [id number] Immature Grans (Abs) 0.0 {x10E3/uL} (Normal) Range: [...] 4.14-5.80 WBC 6.9 {x10E3/uL} (Normal) Range: 3.4-10.8 72-Iet-491812:52 HgA1C , Office (57074) HgA1C , Office 5.8 % (Normal) Range: 4.6 - 7.1 :52 Blood Glucose , Office (90258) Blood Glucose , Office 110 (Normal) 80-Zxn-398461:01 Microscopic Examination Comments: PATIENT NOT FASTINGPERFORMED BY: [facility] Uvbyjm9071 [facility] [id number] Bacteria Few (Normal) Mucus Threads Present (Normal) Cast Type Hyaline casts (Normal) Casts Present {/lpf} (Abnormal) Epithelial Cells (non renal) None seen {/hpf} (Normal) Range: 0 - 10 RBC 0-2 {/hpf} (Normal) Range: 0 - 2 WBC 0-5 {/hpf} (Normal) Range: 0 - 5 74-Avt-274130:40 Urine Drug Screen (VISTA) Comments: [facility] [address] [place], [place], [address] THC NEGATIVE (Normal) PCP NEGATIVE (Normal) OPIATES [...] TESTING MUST BE ORDERED SEPARATELY. USE TESTMNEMONIC: [facility] :06 Alcohol, Blood (Medical)-Serum Comments: [facility] [address]qmox[address] [place], [place], [address] SERUM ETOH < 3.0 mg/dL (Normal) Comments: The serum:whole blood ethanol ratio is approximately 1.14and varies slightly with hematocrit.Medical Alcohol reference interval and critical value innon-tolerant individuals; 50 - 100 Impairment 100 Intoxication 100 - 250 Severe Poisoning 250 - 400 Deep/possible fatal coma :06 Basic Metabolic Profile (BMP) Comments: [facility] [address]vocx[address] [place], [place], [address] GAP 8 (Normal) Range: 5-15 CO2 29.0 [...] 126 mg/dLsuggests DIABETES MELLITUS per A.D.A. criteria. :06 CBC W/Diff, Automated Comments: [facility] [address]ud[address] [place], [place], [address] Absolute Lymph 1.12 {X10_3/ul} (Normal) Range: 0.83-4.51 [...] 4.6-6.2 WBC 8.7 K/mm3 (Normal) Range: 4.4-11.0 24-Xkd-777928:06 Valproic Acid (Depakene) Level Comments: [facility] Bnfcyneswe[address] [place], [place], [address] VALPROIC ACID 49 ug/mL (Abnormal) Range: 50-100 1-Ksm-081160:29 HGB A1C (82035) HGB A1C 5.9 % (Normal) Range: 4.6 - 7.1 :57 TSH (97530) Comments: PATIENT WAS FASTINGPERFORMED BY: LabCoDeborah Heart and Lung CenterXsibbt3704 [facility] [id number] TSH 3.020 {uIU/mL} (Normal) Range: 0.450-4.500 31-Jbi-041985:01 URINALYSIS, W/ MICRO (07543) Comments: PATIENT NOT FASTINGPERFORMED BY: [employer] Nbcfyl4698 [facility] [id number] Microscopic Examination See below: (Normal) Comments: Microscopic was indicated and was performed. Microscopic Examination MICRON (Normal) Comments: Microscopic follows if indicated. Nitrite, Urine Negative (Normal) Urobilinogen,Semi-Qn 0.2 mg/dL (Normal) Range: 0.2-1.0 Bilirubin Negative (Normal) Occult Blood Negative (Normal) Ketones Negative (Normal) Glucose Negative (Normal) Protein Negative (Normal) WBC Esterase Negative (Normal) Appearance Clear (Normal) Urine-Color Yellow (Normal) pH 6.5 (Normal) Range: 5.0-7.5 Specific [place] 1.010 (Normal) Range: 1.005-1.030 46-Hyf-938313:01 MICROALBUMIN: CREATININE RATIO Comments: PATIENT NOT FASTINGPERFORMED BY: [employer]6370 [facility] [id number] (28841) AND (92748) Microalb/Creat Ratio 43.2 {mg/g_creat} (Abnormal) Range: 0.0-30.0 Microalbumin, Urine 20.9 ug/mL (Normal) Creatinine, Urine 48.4 mg/dL (Normal) 34-Zwd-917575:57 METABOLIC PANEL, COMPREHENSIVE Comments: PATIENT WAS FASTINGPERFORMED BY: [employer] Sjdrbh5253 [facility] [id number] (39626) ALT (SGPT) 6 [iU]/L (Normal) Range: 0-44 [...] Glucose, Serum 79 mg/dL (Normal) Range: 65-99 79-Eim-477400:57 LIPID PANEL (71524) Comments: PATIENT WAS FASTINGPERFORMED BY: [employer]70 [facility] [id number] LDL/HDL Ratio 1.2 {ratio_units} (Normal) Range: 0.0-3.6 Comments: LDL/HDL Ratio Men Women 1/2 Avg.Risk 1.0 1.5 Av g.Risk 3.6 3.2 2X Avg.Risk 6.2 5.0 3X Avg.Risk 8.0 6.1 LDL Cholesterol Calc 51 mg/dL (Normal) Range: 0-99 VLDL Cholesterol Justo 17 mg/dL (Normal) Range: 5-40 HDL Cholesterol 42 mg/dL (Normal) Triglycerides 84 mg/dL (Normal) Range: 0-149 Cholesterol, Total 110 mg/dL (Normal) Range: 100-199 53-Hwc-081628:57 CBC W/AUTO DIFF WBC (05810) Comments: PATIENT WAS FASTINGPERFORMED BY: [employer]6370 [facility] [id number] Immature Grans (Abs) 0.0 {x10E3/uL} (Normal) Range: [...] 4.14-5.80 WBC 8.5 {x10E3/uL} (Normal) Range: 3.4-10.8 9-Zmv-495486:23 Blood Glucose , Office (23783) Blood Glucose , Office 106 (Normal) 63-Oib-267886:31 PSA (PROSTATE SPECIFIC Comments: PATIENT WAS FASTINGPERFORMED BY: [facility]6370 [facility] [id number] ANTIGEN) (V76.44) Prostate Specific Ag, 1.6 ng/mL (Normal) Range: 0.0-4.0 Serum Comments: Car ECLIA methodology. .According to the [place] [employer], Serum PSA shoulddecrease and remain at undetectable levels after radicalprostatectomy. The AUA defines biochemical recurrence as an initialPSA value 0.2 ng/mL or greater followed by a subsequent confirmatoryPSA value 0.2 ng/mL or greater.Values obtained with d ifferent assay methods or kits cannot be usedinterchangeably. Results cannot be interpreted as absolute evidenceof the presence or absence of malignant disease. :31 HGB A1C (05351) Comments: PATIENT WAS FASTINGPERFORMED BY: [facility] Kqliqv1978 [facility] [place] [id number] Hemoglobin A1c 6.0 % (Abnormal) Range: 4.8-5.6 Comments: . Pre-diabetes: 5.7 - 6.4 Diabetes: >6.4 Glycemic control for adults with diabetes: <7.0 :31 TSH (THYROID STIMULATING Comments: PATIENT WAS FASTINGPERFORMED BY: [facility] Juqlzx5451 [place] [facility] [place] [id number] HORMONE) ([id number]) TSH 2.990 {uIU/mL} (Normal) Range: 0.450-4.500 :31 CALCIFEDIOL (48508) Comments: PATIENT WAS FASTINGPERFORMED BY: [facility] Lfivpe7672 [place] [facility] [place] [id number] Vitamin D, 25-Hydroxy 29.6 ng/mL (Abnormal) Range: 30.0-100.0 Comments: Vitamin D deficiency has been defined by the [place] [facility] and an Endocrine Society practice guideline as alevel of serum 25-OH vitamin D less than 20 ng/mL (1,2).The Endocrine Society went on to further define vitamin Dinsufficiency as a level between 21 and 29 ng/mL (2).1. IOM ([place] [facility] [employer]). 2010. Dietary reference intakes for calcium and D. [place]: The National Academies Press.2. Forrest MF, [place], Lexi ESPINOZA, et al. Evaluation, treatment, and prevention of vitamin D deficiency: an Endocrine Society clinical practice guideline. JCEM. 2010; 96(7):1911-30. :31 MICROALBUMIN: CREATININE RATIO Comments: PATIENT WAS FASTINGPERFORMED BY: [facility] Gisnxh9271 [place] [facility] [place] [id number] ([id number]) AND (80012) Microalb/Creat Ratio 408.1 {mg/g_creat} (Abnormal) Range: 0.0-30.0 Microalbumin, Urine 85.3 ug/mL (Normal) Creatinine, Urine 20.9 mg/dL (Normal) 04-Yar-787800:31 METABOLIC PANEL, COMPREHENSIVE Comments: PATIENT WAS FASTINGPERFORMED BY: [employer] Vnuhno4611 [facility] [id number] ([id number]) ALT (SGPT) 9 [iU]/L (Normal) Range: 0-44 [...] Glucose, Serum 117 mg/dL (Abnormal) Range: 65-99 78-Ene-540103:31 LIPID PANEL (30173) Comments: PATIENT WAS FASTINGPERFORMED BY: Image SocketArtesia General HospitalUkzrig1873 [facility] [id number] LDL/HDL Ratio 1.1 {ratio_units} (Normal) Range: 0.0-3.6 Comments: LDL/HDL Ratio Men Women 1/2 Avg.Risk 1.0 1.5 Av g.Risk 3.6 3.2 2X Avg.Risk 6.2 5.0 3X Avg.Risk 8.0 6.1 LDL Cholesterol Calc 68 mg/dL (Normal) Range: 0-99 VLDL Cholesterol Justo 18 mg/dL (Normal) Range: 5-40 HDL Cholesterol 63 mg/dL (Normal) Triglycerides 88 mg/dL (Normal) Range: 0-149 Cholesterol, Total 149 mg/dL (Normal) Range: 100-199 83-Gkn-993603:31 CBC with auto diff ([id number]) Comments: PATIENT WAS FASTINGPERFORMED BY: [facility] Ekizke8853 [facility] [id number] Immature Grans (Abs) 0.0 {x10E3/uL} (Normal) Range: [...] 4.14-5.80 WBC 6.4 {x10E3/uL} (Normal) Range: 3.4-10.8 92-Kgq-155389:00 Urine Drug Screen (VISTA) Comments: [facility] [address] [place], [place], [address] THC NEGATIVE (Normal) PCP NEGATIVE (Normal) OPIATES [...] TESTING MUST BE ORDERED SEPARATELY. USE TESTMNEMONIC: [facility] 59-Igd-999107:45 Alcohol, Blood (Medical)-Serum Comments: [facility] [address] [place], [place], [address] SERUM ETOH < 3.0 mg/dL (Normal) Comments: The serum:whole blood ethanol ratio is approximately 1.14and varies slightly with hematocrit.Medical Alcohol reference interval and critical value innon-tolerant individuals; 50 - 100 Impairment 100 Intoxication 100 - 250 Severe Poisoning 250 - 400 Deep/possible fatal coma 78-Cdd-130539:45 Basic Metabolic Profile (BMP) Comments: [facility] [address] [place], [place], [address] GAP 1 (Abnormal) Range: 5-15 CO2 31.0 [...] <126 mg/dLsuggests IMPAIRED HOMEOSTASIS per A.D.A. criteria. 53-Iyr-757989:45 CBC W/Diff, Automated Comments: [facility] [address] [place], [address] Absolute Lymph 1.30 {X10_3/ul} (Normal) Range: 0.83-4.51 [...] Range: 4.4-11.0 :44 Alcohol, Blood (Medical)-Serum Comments: [facility] [address] [place], [place], [phone] SERUM ETOH < 3.0 mg/dL (Normal) Comments: The serum:whole blood ethanol ratio is approximately 1.14and varies slightly with hematocrit.Medical Alcohol reference interval and critical value innon-tolerant individuals; 50 - 100 Impairment 100 Intoxication 100 - 250 Severe Poisoning 250 - 400 Deep/possible fatal coma :44 CBC W/Diff, Automated Comments: [facility] [address] [place], [address] Absolute Lymph 1.10 {X10_3/ul} (Normal) [...] 4.6-6.2 WBC 6.7 K/mm3 (Normal) Range: 4.4-11.0 84-Xue-90147:44 Comprehensive Metabolic Profil Comments: [facility] [address] [place], [address] GAP 1 (Abnormal) Range: 5-15 CO2 31.0 [...] 7-18 GLU 106 mg/dL (Normal) Range: 70-110 :44 Urine Drug Screen (VISTA) Comments: [facility] [address] [place], [place], [address] THC NEGATIVE (Normal) PCP NEGATIVE (Normal) OPIATES [...] TESTING MUST BE ORDERED SEPARATELY. USE TESTMNEMONIC: [facility] :44 Valproic Acid (Depakene) Level Comments: [facility] [address] [place], [place], [address] VALPROIC ACID < 3 ug/mL (Abnormal) Range: 50-100 96-Kwd-781883:53 CBC, PLATELETS & MANUAL Comments: PATIENT NOT FASTINGPERFORMED BY: [facility] Cblksx1015 [facility] [id number] Information: [id number] DIFF ([id number]) Immature Grans (Abs) 0.0 {x10E3/uL} (Normal) Range: [...] Range: 3.4-10.8 :56 Alcohol, Blood (Medical)-Serum Comments: [facility] Xxsxnmfmoj7922 [facility] [place], [address] SERUM ETOH 5.0 mg/dL (Normal) Comments: The serum:whole blood ethanol ratio is approximately 1.14and varies slightly with hematocrit.Medical Alcohol reference interval and critical value innon-tolerant individuals; 50 - 100 Impairment 100 Intoxication 100 - 250 Severe Poisoning 250 - 400 Deep/possible fatal coma :56 Basic Metabolic Profile (BMP) Comments: [facility] N[address] [facility] [place], [place], [address] GAP 6 (Normal) Range: 5-15 CO2 29.0 [...] 126 mg/dLsuggests DIABETES MELLITUS per A.D.A. criteria. 09-May-20169:56 CBC W/Diff, Automated Comments: [facility] [address] [place], [place], [address] Absolute Lymph 1.36 {X10_3/ul} (Normal) Range: 0.83-4.51 [...] 4.4-11.0 :56 Valproic Acid (Depakene) Level Comments: [facility] [address] [place], [place], [address] VALPROIC ACID 33 ug/mL (Abnormal) Range: 50-100 :50 Urine Drug Screen (VISTA) Comments: [facility] [address] [place], [place], [address] THC NEGATIVE (Normal) PCP NEGATIVE (Normal) OPIATES [...] TESTING MUST BE ORDERED SEPARATELY. USE TESTMNEMONIC: [facility] :53 CBC, PLATELETS & MANUAL Comments: PATIENT NOT FASTINGPERFORMED BY: [facility] Oeapnv4653 [facility] [id number] Information: [id number] DIFF ([id number]) Immature Grans (Abs) 0.0 {x10E3/uL} (Normal) Range: [...] 4.14-5.80 WBC 6.7 {x10E3/uL} (Normal) Range: 3.4-10.8 57-Tim-533812:56 CBC, PLATELETS & MANUAL Comments: PATIENT NOT FASTINGPERFORMED BY: [facility] Aohajv2295 [facility] [id number] Information: [id number] DIFF ([id number]) Immature Grans (Abs) 0.0 {x10E3/uL} (Normal) Range: [...] 4.14-5.80 WBC 7.7 {x10E3/uL} (Normal) Range: 3.4-10.8 12-Awe-821331:28 Metabolic Panel, Comprehensive Comments: PATIENT NOT FASTINGPERFORMED BY: [facility]CoDeborah Heart and Lung CenterSfdfhn1098 [facility] [id number] ([id number]) ALT (SGPT) 7 [iU]/L (Normal) Range: 0-44 [...] Glucose, Serum 99 mg/dL (Normal) Range: 65-99 69-Ori-701766:28 CBC, Platelets & Auto Comments: PATIENT NOT FASTINGPERFORMED BY: [facility]CoDeborah Heart and Lung CenterAgyvgm3265 [facility] [id number] Information: [id number] Diff (57863) Immature Grans (Abs) 0.0 {x10E3/uL} (Normal) Range: [...] 6.9 {x10E3/uL} (Normal) Range: 3.4-10.8 :28 TSH (75567) Comments: PATIENT NOT FASTINGPERFORMED BY: Image SocketDeborah Heart and Lung CenterVmvdta8337 [facility] [id number] TSH 3.600 {uIU/mL} (Normal) Range: 0.450-4.500 :06 HgA1C , Office (14205) Comments: 5.9 HgA1C , Office 5.9 % (Normal) Range: 4.6 - 7.1 :06 Blood Glucose , Office (78027) Blood Glucose , Office 91 (Normal) :06 Urinalysis, Office (65531) UA - LEUKOCYTE ESTERASE Negative (Normal) UA - NITRITE Negative (Normal) URINE UROBILINGN SALMA TIMED Normal mg/dL (Normal) UA - PROTEIN Negative mg/dL (Normal) UA - PH 6 (Abnormal) UA - BLOOD Negative (Normal) UA - SPECIFIC GRAVITY 1.010 (Normal) UA - KETONES Negative mg/dL (Normal) UA - BILIRUBIN Negative (Normal) UA - GLUCOSE Negative (Normal) 24-Zud-097679:06 CBC, PLATELETS & MANUAL Comments: PATIENT NOT FASTINGPERFORMED BY: [employer] Teuabr6703 [facility] [id number] Information: [id number] DIFF ([id number]) Immature Grans (Abs) 0.0 {x10E3/uL} (Normal) Range: [...] 4.14-5.80 WBC 6.1 {x10E3/uL} (Normal) Range: 3.4-10.8 31-Rug-076722:50 CBC, PLATELETS & MANUAL Comments: PATIENT NOT FASTINGPERFORMED BY: [facility]6370 [facility] [id number] Information: [id number] DIFF ([id number]) Immature Grans (Abs) 0.0 {x10E3/uL} (Normal) Range: [...] 4.14-5.80 WBC 5.7 {x10E3/uL} (Normal) Range: 3.4-10.8 7-Cct-525406:50 CBC, PLATELETS & MANUAL Comments: PATIENT NOT FASTINGPERFORMED BY: [facility] Bdtvzi7037 [facility] [id number] Information: [id number] DIFF ([id number]) Immature Grans (Abs) 0.0 {x10E3/uL} (Normal) Range: [...] 4.14-5.80 WBC 8.2 {x10E3/uL} (Normal) Range: 3.4-10.8 34-Pnh-118226:42 CBC, PLATELETS & MANUAL Comments: PATIENT NOT FASTINGPERFORMED BY: ABHINAV [facility] Hmyolb2863 [facility] [id number] Information: [id number] DIFF ([id number]) Immature Grans (Abs) 0.0 {x10E3/uL} (Normal) Range: [...] 4.14-5.80 WBC 7.0 {x10E3/uL} (Normal) Range: 3.4-10.8 18-Vcm-554140:44 MRSA Wound DNA by PCR Comments: Specimen Source? NASAL, [facility] [address] [place], [address] SA RESULT NEGATIVE (Normal) MRSA RESULT Negative (Normal) 21-Zai-335713:53 CBC, PLATELETS & MANUAL Comments: PATIENT NOT FASTINGPERFORMED BY: [facility] [place] [address] [id number] Information: [id number] DIFF (81792) Immature Grans (Abs) 0.0 {x10E3/uL} (Normal) Range: [...] 4.14-5.80 WBC 10.1 {x10E3/uL} (Normal) Range: 3.4-10.8 74-Hsf-945614:13 PSA (PROSTATE SPECIFIC Comments: PATIENT NOT FASTINGPERFORMED BY: [facility]6370 [facility] [id number] ANTIGEN) (V76.44) Prostate Specific Ag, 1.2 ng/mL (Normal) Range: 0.0-4.0 Serum Comments: Car ECLIA methodology. .According to the [place] [employer], Serum PSA shoulddecrease and remain at undetectable levels after radicalprostatectomy. The AUA defines biochemical recurrence as an initialPSA value 0.2 ng/mL or greater followed by a subsequent confirmatoryPSA value 0.2 ng/mL or greater.Values obtained with d ifferent assay methods or kits cannot be usedinterchangeably. Results cannot be interpreted as absolute evidenceof the presence or absence of malignant disease. 39-Djq-035152:13 Hemoglobin Glyclated (HGB A1C) Comments: PATIENT NOT FASTINGPERFORMED BY: [employer]6370 [facility] [id number] ([id number]) Hemoglobin A1c 6.0 % (Abnormal) Range: 4.8-5.6 Comments: . Pre-diabetes: 5.7 - 6.4 Diabetes: >6.4 Glycemic control for adults with diabetes: <7.0 19-Rzb-807910:13 DHEA-S (DEHYDROEPIANDROSTERONE Comments: PATIENT NOT FASTINGPERFORMED BY: [employer] Ujrjof8688 [place] [id number] SULFATE) ([id number]) DHEA-Sulfate 133.8 ug/dL (Normal) Range: 48.9-344.2 11-Cpj-846414:13 TESTOSTERONE TOTAL (13103) Comments: PATIENT NOT FASTINGPERFORMED BY: [employer] Vqojom4194 [facility] [place] [id number] Comment: TESTM (Normal) Comments: Adult male reference interval is based on a population of lean malesup to 40 years old. Testosterone, Serum 529 ng/dL (Normal) Range: 348-1197 83-Bux-381933:13 TSH (57813) Comments: PATIENT NOT FASTINGPERFORMED BY: DUHEM [facility] Okxybp8506 [place] [facility] [place] [id number] TSH 2.910 {uIU/mL} (Normal) Range: 0.450-4.500 30-Dir-010079:13 METABOLIC PANEL, COMPREHENSIVE Comments: PATIENT NOT FASTINGPERFORMED BY: [employer] Marwdt8537 [facility] [id number] (10189) ALT (SGPT) 7 [iU]/L (Normal) Range: 0-44 [...] Glucose, Serum 92 mg/dL (Normal) Range: 65-99 11-Yly-670125:13 CBC W/AUTO DIFF WBC Comments: PATIENT NOT FASTINGPERFORMED BY: [facility] Buenfi9196 [facility] [id number] Information: [id number] ([id number]) Immature Grans (Abs) 0.0 {x10E3/uL} (Normal) Range: [...] Instructions Essential hypertension : Follow up in 3 weeks Indication: Essential hypertension Essential hypertension : HTN/CAD Red Flags Indication: Essential hypertension Essential hypertension : Follow up in 2 [...] mental state Altered mental state : Reviewed Iron Carrier Letter Indication: Altered mental state Altered mental status, unspecified altered mental status type : Reviewed Lab Indication: Altered mental status, unspecified altered mental status type Altered mental status, unspecified altered mental status type : Reviewed Diagnostic Tests Indication: Altered mental status, unspecified altered mental status type Altered mental status, unspecified altered mental status type : Reviewed Iron Car[employer] Letter Indication: Altered mental status, unspecified altered [...] of lower extremity, unspecified laterality : Reviewed Iron Carrier Letter Indication: Cellulitis of lower extremity, unspecified laterality Mild intermittent asthma without complication : Continue Current Prescription(s) Indication: Mild intermittent asthma without complication Controlled diabetes mellitus : Follow up in 3 months Indication: Controlled diabetes mellitus Essential hypertension : HTN/CAD Red Flags Indication: Essential hypertension Dog bite of upper extremity, right, subsequent encounter : Reviewed Iron Carrier Letter Indication: Dog bite of upper extremity, right, subsequent encounter Cellulitis of forearm : Continue Current Prescription(s) Indication: Cellulitis of forearm Dog bite of upper extremity, right, initial encounter : Reviewed Iron Carrier Letter Indication: Dog bite of upper extremity, [...] - Male Indication: Sinusitis, acute Planned Observations Metabolic Panel, Basic ([id number])Indication: Therapeutic drug monitoring On: 5-Opd-152683:23 Request CBC, PLATELETS & MANUAL DIFF ([id number])Indication: Essential hypertension On: 19-Mar-2017 Request CBC, PLATELETS & MANUAL DIFF ([id number])Indication: Essential hypertension On: 12-Mar-2017 Request CBC, PLATELETS & MANUAL DIFF ([id number])Indication: Essential hypertension On: 05-Mar-2017 Request CBC, PLATELETS & MANUAL DIFF ([id number])Indication: Essential hypertension On: 26-Feb-2017 Request CBC, PLATELETS & MANUAL DIFF ([id number])Indication: Essential hypertension On: 19-Feb-2017 Request CBC, PLATELETS & MANUAL DIFF ([id number])Indication: Essential hypertension On: 12-Feb-2017 Request CBC, PLATELETS & MANUAL DIFF ([id number])Indication: Essential hypertension On: 05-Feb-2017 Request CBC, PLATELETS & MANUAL DIFF ([id number])Indication: Essential hypertension On: 29-Jan-2017 Request CBC, PLATELETS & MANUAL DIFF ([id number])Indication: Essential hypertension On: 22-Jan-2017 Request CBC, PLATELETS & MANUAL DIFF ([id number])Indication: Essential hypertension On: 15-Jan-2017 Request HgA1C , Office ([id number])Indication: Controlled diabetes mellitus On: 6-Rnu-988664:23 Request CBC, PLATELETS & MANUAL DIFF ([id number])Indication: Essential hypertension On: 08-Jan-2017 Request CBC, PLATELETS & MANUAL DIFF ([id number])Indication: Essential hypertension On: 01-Jan-2017 Request CBC, PLATELETS & MANUAL DIFF ([id number])Indication: Essential hypertension On: 25-Dec-2016 Request CBC, PLATELETS & MANUAL DIFF ([id number])Indication: Essential hypertension On: 18-Dec-2016 Request CBC, PLATELETS & MANUAL DIFF ([id number])Indication: Essential hypertension On: 11-Dec-2016 Request CBC, PLATELETS & MANUAL DIFF ([id number])Indication: Essential hypertension On: 04-Dec-2016 Request CBC, PLATELETS & MANUAL DIFF ([id number])Indication: Essential hypertension On: 27-Nov-2016 Request CBC, PLATELETS & MANUAL DIFF ([id number])Indication: Essential hypertension On: 20-Nov-2016 Request CBC, PLATELETS & MANUAL DIFF ([id number])Indication: Essential hypertension On: 13-Nov-2016 Request CBC, PLATELETS & MANUAL DIFF ([id number])Indication: Essential hypertension On: 06-Nov-2016 Request CBC, PLATELETS & MANUAL DIFF ([id number])Indication: Essential hypertension On: 30-Oct-2016 Request Metabolic Panel, Basic ([id number])Indication: Mixed erectile dysfunction On: 75-Spn-656297:23 Request CBC, PLATELETS & MANUAL DIFF ([id number])Indication: Essential hypertension On: 23-Oct-2016 Request CBC, PLATELETS & MANUAL DIFF ([id number])Indication: Essential hypertension On: 16-Oct-2016 Request CBC, PLATELETS & MANUAL DIFF ([id number])Indication: Essential hypertension On: 09-Oct-2016 Request CBC, PLATELETS & MANUAL DIFF ([id number])Indication: Essential hypertension On: 02-Oct-2016 Request CBC, PLATELETS & MANUAL DIFF ([id number])Indication: Essential hypertension On: 25-Sep-2016 Request CBC, PLATELETS & MANUAL DIFF ([id number])Indication: Essential hypertension On: 18-Sep-2016 Request CBC, PLATELETS & MANUAL DIFF ([id number])Indication: Essential hypertension On: 11-Sep-2016 Request CBC, PLATELETS & MANUAL DIFF ([id number])Indication: Essential hypertension On: 04-Sep-2016 Request CBC, PLATELETS & MANUAL DIFF ([id number])Indication: Essential hypertension On: 28-Aug-2016 Request CBC, PLATELETS & MANUAL DIFF ([id number])Indication: Essential hypertension On: 21-Aug-2016 Request CBC, PLATELETS & MANUAL DIFF ([id number])Indication: Essential hypertension On: 14-Aug-2016 Request CBC, PLATELETS & MANUAL DIFF ([id number])Indication: Essential hypertension On: 07-Aug-2016 Request CBC, PLATELETS & MANUAL DIFF ([id number])Indication: Essential hypertension On: 31-Jul-2016 Request CBC, PLATELETS & MANUAL DIFF ([id number])Indication: Essential hypertension On: 24-Jul-2016 Request CBC, PLATELETS & MANUAL DIFF ([id number])Indication: Essential hypertension On: 17-Jul-2016 Request CBC, PLATELETS & MANUAL DIFF ([id number])Indication: Essential hypertension On: 10-Jul-2016 Request CBC, PLATELETS & MANUAL DIFF ([id number])Indication: Essential hypertension On: 03-Jul-2016 Request CBC, PLATELETS & MANUAL DIFF ([id number])Indication: Essential hypertension On: 26-Jun-2016 Request CBC, PLATELETS & MANUAL DIFF ([id number])Indication: Essential hypertension On: 19-Jun-2016 Request CBC, PLATELETS & MANUAL DIFF ([id number])Indication: Essential hypertension On: 12-Jun-2016 Request CBC, PLATELETS & MANUAL DIFF ([id number])Indication: Essential hypertension On: 05-Jun-2016 Request CBC, PLATELETS & MANUAL DIFF ([id number])Indication: Essential hypertension On: 29-May-2016 Request CBC, PLATELETS & MANUAL DIFF ([id number])Indication: Essential hypertension On: 22-May-2016 Request MICROALBUMIN: CREATININE RATIO ([id number]) AND ([id number])Indication: Weakness On: 88-Svq-330162:22 Request CBC, PLATELETS & MANUAL DIFF ([id number])Indication: Essential hypertension On: 24-Apr-2016 Request MRSA Culture ([id number])Indication: Nasal lesion On: 28-Ynn-902344:43 Request BELKIS CULTURE-BLOOD ([id number])Indication: History of bacteremia On: 49-Qru-642881:27 Request Aerobic Bacterial Culture ([id number])Indication: Nasal lesion On: 33-Iqw-178241:25 Request URINALYSIS, W/ MICRO ([id number])Indication: Essential hypertension On: 83-Dgh-469291:41 Request MICROALBUMIN: CREATININE RATIO ([id number]) AND ([id number])Indication: Essential hypertension On: 51-Jct-328093:41 Request Planned Encounters Medical; 3 Week FU - On: 05-Sep-2018 8:30 [facility] Dhara Taylor DO, DO, Kathleen Medical; 4 Month FU - On: 03-Oct-2018 7:00 [facility] Dhara Taylor DO, DO, Kathleen Planned Procedures Flu Vaccine (Quadrivalent) 76309Gn: On: 30-Jul-2018 Intent Dhara Taylor DO, DO, Kathleen MRI BRAIN W/ CONTRAST ([id number])By: On: 07-May-2018 Intent Dhara Taylor DO, DO, Kathleen ELECTROCARDIOGRAM, COMPLETE (ECG) On: 29-Oct-2017 Intent ([id number])By: Dhara Taylor DO Comments: nsr no acute chg Dhara Taylor DO Spirometry (21452)By: Claudia RESENDEZ, On: 29-Oct-2017 Intent Dhara Hendricks DO Comments: #1 severe obstruction #2 severe obstruction -not much different after brisk walk TDAP VACCINE >7 IM ([id number])By: Claudia On: 26-Apr-2017 Intent Dhara RESENDEZ DO, Kathleen Comments: Lot:[id number]:05/23/19Dose:0.5mgRoute:im Site:[facility] By:GLORIA signed ELECTROCARDIOGRAM, COMPLETE (ECG) On: 10-Jan-2017 Intent ([id number])By: Dhara Taylor DO Comments: pt refused Dhara Taylor DO Aerosol Treatment ([id number])By: Claudia On: 05-Aug-2015 Intent Dhara RESENDEZ DO, Kathleen Spirometry ([id number])By: Claudia RESENDEZ, On: 05-Aug-2015 Intent Dhara Hendricks DO Instructions Name Dates Details Smoker : How to access health information online Indication: Smoker Smoker : How to access health information online - Detail Indication: Smoker Smoker : Patient Instructions Indication: Smoker BMI 28.0-28.9,adult : How to access health [...] Indication: Sinusitis, acute Encounters Office Visit On: 15-Aug-2018 9:50 Encounter Reason: Follow up Meds - The patient feels well with minor complaints, has good energy level and is sleeping well. Patient has been compliant with instructions. Current medication use: no side effects and compliant with dosing regimen. End: 15-Aug-2018 10:26 Encounter Diagnosis: BMI 28.0-28.9,adult, Smoker, Essential hypertension, Schizophrenia, Therapeutic drug monitoring [facility] Office Visit On: 30-Jul-2018 14:49 Encounter Reason: [...] Reason for hospitalization note: (1 week at [facility] I broke up a dog fight and [...] Reason for hospitalization note: (1 week at [facility] I broke up a dog fight and I had some stiches in the rt arm). Patient has been compliant with instructions. Current medication use: no side End: 26-Apr-2017 15:00 effects and compliant with dosing regimen.Encounter Diagnosis: Dog bite of upper extremity, right, initial encounter, Cellulitis of forearm, Need for Tdap vaccination (Renamed from Need for fvxkoyrcyf-vgtfvdh-jtaqrpimm (Tdap) vaccine, adult/a dolescent) [facility] [...] like [place] [facility] [place] disorder. Have been incontinent of urine and extreme weakness. Was seeing Dr. Longoria at [facility] switched to Dr. Zhu Diagnosis: Weakness, [...] for prostate cancer) [facility] Payers Christophermarnie/[employer] Marcelina Sosa; jose f guarantor
--- OUTSIDE RECORDS SUMMARY | 2018-10-15 01:39 | XMS RPT_ITS | Continuity of Care Document ---
:1955 Author Organization [facility] Address [address] [place] [address] Phone Care Team Providers Name Role Phone [...] Active Schizophrenia (F20.9, 295.90) Comments: managed by [facility] Status: Active Smoker (F17.200, 305.1) Status: [...] Propionate 50 MCG/ACT Nasal Suspension 1 (one) Mcgregor Mcgregor qd for 0 days Quantity: 1 {Container} [...] brain normalmental status back to baseline per glass ribbon machine operator- Isaac Status: Resolved as of 21-May-2018 BMI 28.0-28.9,adult (Z68.28, V85.24) Status: Resolved as of 21-May-2018 BMI 29.0-29.9,adult (Z68.29, V85.25) Status: Inactive as of 02-May-2018 Cannabis abuse (F12.10, 305.20) Comments: per case management specialist knowledge -inactive Status: Inactive as of 21-May-2018 [...] for Tdap vaccination (Renamed from Need for jgxzvllzdh-jbehcuk-gtfvhnasb (Tdap) vaccine, adult/adolescent) (Z23, V06.1) Status: Resolved [...] V58.32) Comments: sutures placed in ER at [facility] Status: Inactive as of 29-Oct-2017 Weakness (R53.1, 780.79) Comments: is reducing depakote per self, sees psych Asteka Status: Inactive as of 10-Jan-2017 Procedures Procedure Dates Details Tonsillectomy Completed Date Value Details 08-May-2018 History and Physical Exam Result: Comments: See Note; NOTES: [facility] Medical Records Department [address] [place] [address] History and Physical 05/08/182104 MR#: [id number] Acct: [id number] Name: CHARISSA SOSA UL E Rep #: [id number] : 1955 62 From: Kristal Larsen PCP: [...] diabetes mellitus Status: Chronic Qualifiers: Diabetes mellitus car electronics installer insulin use: without car electronics installer use Diabetes mellitus complication statu s: without complication Qualified Code(s): E11.9 - Type 2 diabetes mellitus without complications (6) Bilateral leg edema Status: Chronic History of Present Illness Date of Admission: 05/08/18 Chief C omplaint: Worsened confusion The patient is a 62 y/o M, Living in [facility] w/ PMHx: Schizophrenia w/ Prior Suicide Attempts, [...] be performed who now re-presents to the [facility] ED on 05/08/18 with confusion and noted aud itory hallucinations with [facility] confirmed taking his schizophrenia medications, failure to understand how to perform basic tasks he normally performs over the last 48 hours with PCP and nursing home discussion with patient and now willingness to have MRI performed. nursing home notes that this is very different from [...] Anxiety, Depression, Prior suicide attempt, Schizophrenia Lives: Jail Smoking Status: Current every day smoker Tobacco [...] is a 62 y/o M, Living in [facility] w/ PMHx: Schizophrenia w/ Prior Suicide Attempts, Tobacco use, Chronic COPD, Diabet es mellitus type II, CHF Unclear Type, PVD w/ chronic BL LE lymphedema, LLE Venous Stasis Ulcer [facility] who presents to the [facility] ED on 05/08/18 with confusion and noted auditory halluci nations with nursing home confirmed taking his schizophrenia medications, failure to understand how to perform basic tasks he normally performs over the last 48 hours with PCP and nursing home discussion wi th patient and now willingness [...] Lovenox. Code Visit OBSV E AND M: 56242 Initial observation care L3 05/08/182139 <Electronically signed by Kristal Larsen > Date Kristal Larsen Cosigner Signature: Date (if applicable) CC: Kristal Larsen; Dhara Taylor DO Signed 08-May-2018 Emergency Department Summary Result: Comments: See Note; NOTES: [facility] Medical Records Department [address] [place] [address] Emergency Department Summary 05/08/18 1748 MR#: [id number] Acct: [id number] Name: AJIT SOSA Sera Rep #: [id number] : 1955 62 From: Petrona Rios MD PCP: Dhara Taylor DO Status: REG ER - ER Visit Summary Date of Service: 05/08/18 Chief Complaint: Confusion History of P resent Illness: The patient is a 62 M presenting with intermittent confusion. His staff member from his [place] [facility] states that he has been confused intermittently since April 16. He was admitted at that time for TIA workup. During that admission patient refused MRI. He was seen again in the ED on May 02 for continued intermittent confusion. He refused MRI during the ED stay as well. Today [facility] d iscussed with his primary care physician Dr. Taylor who feels the patient needs an MRI according to [facility] staff and the patient. The patient is now agreeable to MRI. He was advised to come to the E D for further evaluation. nursing home staff states that he has been having [...] status, TIA This note was generated with DiBcom dictation software. It may contain inc orrect [...] Primary Care Pr ovidharinder. Call [facility] ([phone]) or report to the closest Emergency Room. Call 911 if necessary. 05/08/182128 <Electronically signed by Petrona Rios MD> Date _ Petrona Rios MD Cosigner Signature (If Indicated): Date CC: Dhara Taylor DO 08-May-2018 Brain/Head without Contrast Result: Comments: See Note; NOTES: [facility] Imaging Services [address] [place] [address] Brain/Head without Contrast MR#: [id number] Acct: [id number] Name: AJIT SOSA Rep #: [id number] : 1955 M 62 From: Lorne Augustine MD PCP: Dhara Taylor DO Status: REG ER Study: Brain/Head without Contrast Date of Exam: 05/08/18 Exam# [id number] Ordering Dr: Petrona Riso MD UDY: CT BRAIN WITHOUT CONTRAST REASON [...] CC: Petrona Rios MD; Dhara Taylor DO Planning Advisor: Signed 08-May-2018 Chest 1 View Result: Comments: See Note; NOTES: [facility] Imaging Services [address] [place] [address] Chest 1 View MR#: [id number] Acct: [id number] Name: AJIT SOSA Rep #: [id number] : M 62 From: Lorne Augustine MD PCP: Dhara Taylor DO Status: REG ER Study: Chest 1 View Date of Exam: 05/08/18 Exam# [id number] Ordering Dr: Petrona Rios MD STUDY: X-RAY [...] CC: Petrona Rios MD; Dhara Taylor DO Planning Advisor: Signed 06-May-2018 12 Lead Electrocardiogram Result: Comments: See Note; NOTES: [facility] Cardiovascular Services [address] [place] [address] 12 Lead EKG 05/02/18 1555 MR#: [id number] Acct: [id number] Name: AJIT SOSA Rep # : [id number] : 1955 62 From: Ajit Benavidez MD [...] Normal ECG Confirmed by PRAMOD ALSTON, AJIT ([id number]), movie editor DANNA LIZAMA ([id number]) on 05/06/2018 2:29:59 PM Referred By: VAISHALI Confirmed By:AJIT BENAVIDEZ MD 05/06/18 1430 Date Ajit Benavidez MD CC: Gabriela Barrett MD; Dhara Taylor DO Signed 03-May-2018 Emergency Department Summary Result: Comments: See Note; NOTES: [facility] Medical Records Department [address] [place] [address] Emergency Department Summary 05/02/18 1648 MR#: [id number] Acct: [id number] Name: AJIT SOSA Rep #: [id number] : 1955 62 From: Gabriela Barrett MD [...] presentation is not typical of his psychosis. nursing home staff member describes confusion with normal tasks [...] the week. Patient was monitored at the [facility] [place] the weekend. I did speak with Dr. Carter to update her on the patient's findings and plan as the patient was sent in by Dr. Taylor. Treatment Plan: [] Disposition: Discharge Impression: 1. Repor melchor slurred speech, resolved 2. Schizoaffective disorder This note was generated with DiBcom dictation software. It may contain incorrect words, [...] your Primary Care Provider. Call [facility] ([phone]) or report to the closest Emergency Room. Call 911 if necessary. 05/03 0028 <Electronically signed by Gabriela Barrett MD> Date Gabriela Barrett MD Cosigner Signature (If Indicated): Date ____ CC: Dharaga Taylor 02-May-2018 Discharge Instruction Result: Comments: See Note; NOTES: [facility] Medical Records Department [address] [place] [address] Discharge Instruction 05/02/182233 MR#: [id number] Acct: [id number] Name: Rolando SOSA Rep #: [id number] : 1955 62 From: Gabriela Barrett MD [...] without Contrast Result: Comments: See Note; NOTES: [facility] Imaging Services [address] [place] [address] Brain/Head without Contrast MR#: [id number] Acct: [id number] Name: AJIT SOSA Rep #: [id number] : 1955 M 62 From: Edenilson Hernandez MD PCP: Dhara Taylor DO Status: REG ER Study: Brain/Head without Contrast Date of Exam: 05/02/18 Exam# [id number] Ordering Dr: Gabriela Barrett MD RUST DY: CT BRAIN WITHOUT CONTRAST REASON FOR [...] CC: Gabriela Barrett MD; Dhara Taylor DO Planning Advisor: Signed 16-Apr-2018 Brain/Head without Contrast Result: Comments: See Note; NOTES: [facility] Imaging Services [address] [place] [address] Brain/Head without Contrast MR#: [id number] Acct: [id number] Name: AJIT SOSA Rep #: [id number] : 1955 M 62 From: Jackson Conde DO PCP: Dhara Taylor DO Status: REG Study: Brain/Head without Contrast Date of Exam: 04/16/18 Exam# [id number] Ordering Dr: Petrona Rios MD STUD Y: [...] Jackson Conde DO at 17:16 EDT Tel [phone], Service support [phone], CC: Petrona Rios MD; Dhara Taylor DO Planning Advisor: Signed 16-Apr-2018 Chest 1 View Result: Comments: See Note; NOTES: [facility] Imaging Services [address] [place] [address] Chest 1 View MR#: [id number] Acct: [id number] Name: AJIT SOSA Rep #: [id number] : M 62 From: Jackson Conde DO PCP: Dhara Taylor DO Status: PRE ER Study: Chest 1 View Date of Exam: 04/16/18 Exam# [id number] Ordering Dr: Petrona Rios MD STUDY: X-RAY [...] of the upper abdomen. ORDER # : [id number] RAD/Chest 1 View IMPRESSION: No acute cardiopulmonary disease or interval change. Electronically Signed: Jackson Conde DO at 16:55 EDT Tel [phone], Service support [phone], CC: Petrona Rios MD; Dhara Taylor DO Planning Advisor: Signed 16-Apr-2018 Emergency Department Summary Result: Comments: See Note; NOTES: [facility] Medical Records Department [address] [place] [address] Emergency Department Summary 04/16/18 0514 MR#: [id number] Acct: [id number] Name: AJIT SOSA Rep #: [id number] : 1955 62 From: Quentin Winkler MD PCP: Dhara Taylor DO Status: DEP ER - ER Visit Summary Date of Service: 04/16/18 Chief Complaint: Left arm pain History o f Present Illness: The patient is a 62 M presenting for evaluation secondary left arm pain. Patient has a underlying history of living in a [place] [facility] and has schizophrenia that is reasonably controlled [...] by a physician and his nursing supervisor core shop and was unable to take any sort [...] arm pain This note was generated with DiBcom dictation software. It may contain incorrect words, [...] your Primary Care Provider. Call [facility] ([phone]) or report to the closest Emergency Room. Call 911 if necessary. 04/16/18 0717 <Electronically signed by Quentin Winkler MD> Date Quentin Winkler MD Cosigner Signature (If Indicated): Date CC: Dhara Taylor DO 21-Mar-2018 Wound Ctr History AND Physical Result: Comments: See Note; NOTES: [facility] [address] [place] [address] Wound Ctr History AND Physical 03/21/182028 MR#: [id number] Acct: [id number] Name: FELIX AlegriaAJIT Sera Rep #: [id number] : 1955 62 From: Samantha Manuel DO [...] Chronic Current Visit: Yes Qualifiers: Diabetes mellitus nursing home insulin use: without car electronics installer use Diabetes mellitus complication stat us: without [...] odor or drainage. He lives in a [place] [facility] and cares for himself with supervision from staff. He is accompanied today by his case management rn, Isaac. Past Medical History Charissa wong Medical [...] bonilla Diabetes Sibling Hypertension Lives: - - [facility] [facility] Smoking Status: Current every day smoker Tobacco [...] Date Recorded By Document 03/21/18 13:53 DL [id number] 8 14:14 DL Wound Center Nurse 1 [...] Date Recorded By Document 06/15/18 15:45 DV [id number] 03/21/18 15:51 DV Psych/Mental Status: Flat Affect Debridement Note Post-Debridement Measurements/Treatment WC - Nurse 2 - General Ulcer CM Notes Start: 03/21/18 13:50 Freq: Status: Active Protocol: Activity Ty pe Activity Date Activity User E-Sign Co-Sign Detail Recorded Client Recorded Date Recorded By Document 03/21/18 15:45 DV [id number] 03/21/18 15:51 DV Wound Center Nurse 2 #2 left borja -Time 15:45 -Post De bridement Size (cm) - Length 1.1 Wound debrided: left broja Laterality: Left Type of Debridement: Excisional debridement [...] Department Summary Result: Comments: See Note; NOTES: [facility] Medical Records Department [address] [place] [address] Emergency Department Summary 11/26/17 1320 MR#: [id number] Acct: [id number] Name: AJIT SOSA Rep #: [id number] : 1955 62 From: Blayne Caldwell DO [...] tremity cellulitis] This note was generated with Ziebelation software. It may contain incorrect words, spelling, [...] your Primary Care Provider. Call [facility] ([phone]) or report to the closest Emergency Room. Call 911 if necess krish. 11/30/17 7675 <Electronically signed by Blayne Caldwell DO> Date Blayne Caldwell DO Cosigner Signature (If Indicated): Date _ CC: Dhara Taylor DO 26-Nov-2017 Venous Duplex Lower Extremity Result: Comments: See Note; NOTES: [facility] Cardiovascular Services [address] [place] [address] Venous Duplex US - Kane Extrem 11/26/17 1349 MR#: [id number] Acct: [id number] Name: AJIT SOSA Rep #: [id number] : 1955 62 From: Roger Carney MD [...] Date Dictated: 1349 Date Transcribed: 11/26/17 1522 Planning Advisor: Signed 26-Nov-2017 Discharge Instruction Result: Comments: See Note; NOTES: [facility] Medical Records Department [address] [place] [address] Discharge Instruction 11/26/17 1435 MR#: [id number] Acct: [id number] Name: Rolando SOSA Rep #: [id number] : 1955 62 From: Blayne Caldwell DO [...] your Primary Care Provider. Call [facility] ([phone]) or report to the closest Emergency R oom. Call 911 if necessary. 11/26/17 1436 <Electronically signed by Blayne Caldwell DO> Date Blayne Caldwell DO Cosigner Signature (If Taylor cated): Date CC: Dhara Taylor DO 24-Aug-2017 Emergency Department Summary Result: Comments: See Note; NOTES: [facility] Medical Records Department [address] [place] [address] Emergency Department Summary 08/24/17 1433 MR#: [id number] Acct: [id number] Name: AJIT SOSA Rep #: [id number] : 1955 61 From: Hill Carrington DO [...] process. He reports he lives in a [place] [facility] and is receiving scheduled Risperdal and other [...] schizoaffective disorder This note was generated with DiBcom dictation software. It may contain incorrect words, [...] your Primary Care Provider. Call [facility] ([phone]) or report to the closest Emergency Room. Call 911 if necessary. 08/24/17 1539 <Electronically signed by Hill Carrington DO> Date Hill Carrington DO Cosigner Signature (If Indicated): Date CC: Dhara Taylor DO 03-Apr-2017 Emergency Department Summary Result: Comments: See Note; NOTES: [facility] Medical Records Department [address] [place] [address] Emergency Department Summary MR#: [id number] Acct: [id number] Name: AJIT SOSA Rep #: [id number] : 1955 61 From: Wero Keating MD PCP: Dhara Taylor DO Status: [facility] DATE OF SERVICE: 03/30/2017 CHIEF COMPLAINT: Agitated. [...] Haldol and Cogentin, his night dose. Crisis communications representative came over, fully evaluated the patient and is having him transfe rred to [facility], accepted by Dr. Huertas, appropriate emergency application, paperwork, labs and reports were given. The patient is stable for transfer. DIAGNOSIS: Acute paranoia. Obed Recinos C: Dhara Taylor DO T: [facility] JOB: [id number] 04/03/17805 <Electronically signed by Wero Keating MD> Date Weor Keating MD Cosigner Signature (If Indicated): Date CC: Dhara Taylor DO Date Dictated: 03/30/172204 Date Transcribed: 03/30/172204 Planning Advisor: Signed 02-Apr-2017 12 Lead Electrocardiogram Result: Comments: See Note; NOTES: [facility] Cardiovascular Services [address] [place] [address] 12 Lead EKG 03/30/172007 MR#: [id number] Acct: [id number] Name: AJIT SOSA Rep # : [id number] : 1955 61 From: Moises Richard MD [...] (56) on 04/02/2017 2:26:02 PM Referred By: [facility] Confirmed By:MOISES RICHARD MD 04/02/17 1426 Date Moises Abdul CC: Dhara Taylor DO Date Dictated: 03/30/172007 Date Transcribed: 03/30/172007 Planning Advisor: Signed 17-Oct-2016 Emergency Department Summary Result: Comments: See Note; NOTES: [facility] Medical Records Department [address] [place] [address] Emergency Department Summary MR#: [id number] Acct: [id number] Name: AJIT SOSA Rep #: [id number] : 1955 60 From: Prakash Loza MD PCP: Dhara Taylor DO Status: DEP ER DATE OF SERVICE: 09/25/2016 METHOD OF ARRIVAL: EMS. CHIEF COMPLAINT: Delusions and paranoia. HIST ORY OF PRESENT ILLNESS: A 60-year-old male patient of Dr. Marshall who was sent here from the [facility] because he is having delusions and [...] auditory or visual hallucinations. 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 Insight and judgment is poor. The [...] DO Date Dictated: 10/09/16615 Date Transcribed: 10/09/16615 Planning Advisor: Signed 27-Sep-2016 12 Lead Electrocardiogram Result: Comments: See Note; NOTES: [facility] Cardiovascular Services [address] [place] [address] 12 Lead EKG 09/25/16 2218 MR#: [id number] Acct: [id number] Name: AJIT SOSA Rep # : [id number] : 1955 60 From: Reji Hill MD Attending Dr: Status: DEP ER Ordering Dr: Gabriela Barrett MD Date: 09/25/16 Location: ED Sex: M C Admitted: Test [place] [facility] [place] Pressure : / mmHG Vent. Rate [...] DO Date Dictated: 09/25/162217 Date Transcribed: 09/25/162217 Planning Advisor: Signed 25-Sep-2016 12 Lead Electrocardiogram Result: Comments: See Note; NOTES: [facility] Cardiovascular Services [address] [place] [address] 12 Lead EKG 09/23/16 0143 MR#: [id number] Acct: [id number] Name: AJIT SOSA Obed Rep # : [id number] : 1955 60 From: Ajit Benavidez MD [...] PRAMOD ALSTON, AJIT ([id number]), movie editor DANNA ILZAMA (57) on 09/25/2016 10:18:06 AM Referred By: DR BUSTOS Confirmed By:AJIT BENAVIDEZ MD 09/25/16 1018 Date ___ Ajit Benavidez MD CC: Dhara Taylor DO Date Dictated: 09/23/16142 Date Transcribed: 09/23/16142 Planning Advisor: Signed 23-Sep-2016 Emergency Department Summary Result: Comments: See Note; NOTES: [facility] Medical Records Department [address] [place] [address] Emergency Department Summary MR#: [id number] Acct: [id number] Name: AJIT SOSA Rep #: [id number] : 1955 60 From: Quentin Bustos MD [...] chizophrenia. DISPOSITION: Discharged. Quentin Bustos MD T: [facility] JOB: [id number] 09/23/16 0539 <Electronically signed by Quentin Bustos MD> Date Quentin Bustos MD Cosigner Signature (If Indicated): Date CC: Dhara Taylor DO Date Dictated: 09/23/16238 Date Transcribed: 09/23/16238 Planning Advisor: Signed 23-Sep-2016 Discharge Instruction Result: Comments: See Note; NOTES: [facility] Medical Records Department [address] [place] [address] Discharge Instruction 09/23/16233 MR#: [id number] Acct: [id number] Name: Rolando SOSA Rep #: [id number] : 1955 60 From: Quentin Bustos MD [...] problems, contact your Primary Care Provider. Call [facility] ([phone]) or report to the closest Emergency Room. Call 911 if necessary. 09/23/16307 <Electronically signed by Quentin Bustos MD> Date Quentin Bustos MD Cosigner Signature (If Indicated): Da te CC: Dhara Taylor DO 11-May-2016 Emergency Department Summary Result: Comments: See Note; NOTES: [facility] Medical Records Department [address] [place] [address] Emergency Department Summary MR#: [id number] Acct: [id number] Name: AJIT SOSA Rep #: [id number] : 1955 60 From: Fina Barry MD PCP: Dhara Taylor DO Status: DEP ER DATE OF SERVICE: 05/09/2016 CHIEF COMPLAINT: Depressed mental status. HISTORY OF PRESENT ILLNESS: This is a 60-year-old male with a history of schizophrenia and other mental health issues. He has a social science research assistant with him today, who typically sees him [...] evaluation. Fina valdovinos MD T: [facility] JOB: [id number] 05/11/16 0946 <Electronically signed by Fina Barry MD> Date Fina Barry MD Cosigner Signature (If Indicated): Date CC: Dhara Taylor DO Date Dictated: 05/09/16 1140 Date Transcribed: 05/09/16 1140 Planning Advisor: Signed 09-May-2016 Discharge Instruction Result: Comments: See Note; NOTES: [facility] Medical Records Department [address] [place] [address] Discharge Instruction 05/09/16 1130 MR#: [id number] Acct: [id number] Name: AJIT SOSA Rep #: [id number] : 1955 60 From: Fina Barry MD [...] problems, contact your doctor. Call [facility] ([phone]) or report to the closest Emergency Room. Call 911 if necessary. 05/09/16 1131 &am p;#60;Electronically signed by Fina Barry MD> Date Fina Barry MD Cosigner Signature (If Indicated): Date CC: Dhara Taylor DO 05-Aug-2015 EKG (97452) Comments: nsr no acutechg Result: [MEASUREMENTS ANALYSIS] Date of Test: 08/05/2015 11:03:50; Heart Rate: 63; IL Interval: 158; QRS: 90; QT Interval: 382; Corrected QT Interval (QTc): 387; P Wave Jefferson: 65; QRS Wave Jefferson: 69; T Wave Jefferson: 90; Blood Pressure: 158/94 [ECG DIAGNOSTIC STATEMENTS] [...] Value Details :21 Alanine Aminotransferas (SGPT) Comments: [facility] [address] [place], [place], [id number] ALT 14 U/L (Abnormal) Range: 16-61 90-Kuv-320034:21 Ammonia Comments: [facility] [address] [place], [id number] AMMONIA 12.0 umol/L (Normal) Range: 11-32 21-Bsr-588871:21 AST(SGOT) Comments: [facility] [address] [place], [id number] AST 19 U/L (Normal) Range: 15-37 80-Yfx-570884:21 Platelet Count Comments: [facility] [address] [place], [id number] PLT 182 K/mm3 (Normal) Range: 150-450 07-Opm-741108:21 Prolactin Comments: [facility] [address] [place], [id number] PROLACTIN 20.8 ng/mL (Normal) Comments: NORMAL REFERENCE RANGES FEMALE NON- 2.2 - 30.3 ng/mL 8.1 - 347.6 ng/mL POST-MENOPAUSAL 0.7 - 3 1.5 ng/mL MALE 2.5 - 17.4 ng/mLNEW TEST METHOD AND REFERENCE RANGES FEBRUARY 25, 201223-Jun-201889-Lsa-036795:21 Valproic Acid (Depakene) Level Comments: [facility] [address] [place], [id number] VALPROIC ACID 87 ug/mL (Normal) Range: 50-100 14-Sip-715725:10 Microscopic Examination Comments: PATIENT WAS FASTINGPERFORMED BY: [employer] [facility] [id number] Bacteria None seen (Normal) Mucus Threads Present (Normal) Epithelial Cells (non renal) None seen {/hpf} (Normal) Range: 0 - 10 RBC 0-2 {/hpf} (Normal) Range: 0 - 2 WBC 0-5 {/hpf} (Normal) Range: 0 - 5 09-Dib-993494:10 TSH (46343) Comments: PATIENT WAS FASTINGPERFORMED BY: [facility] [id number] TSH 3.840 {uIU/mL} (Normal) Range: 0.450-4.500 38-Lgb-404189:10 URINALYSIS, W/ MICRO (45695) Comments: PATIENT WAS FASTINGPERFORMED BY: [facility] Center[facility]vlh7982 [facility] [id number] Microscopic Examination See below: (Normal) Comments: Microscopic was indicated and was performed. Microscopic Examination MICRON (Normal) Comments: Microscopic follows if indicated. Nitrite, Urine Negative (Normal) Urobilinogen,Semi-Qn 0.2 mg/dL (Normal) Range: 0.2-1.0 Bilirubin Negative (Normal) Occult Blood Negative (Normal) Ketones Negative (Normal) Glucose Negative (Normal) Protein Negative (Normal) WBC Esterase Negative (Normal) Appearance Clear (Normal) Urine-Color Yellow (Normal) pH 7.0 (Normal) Range: 5.0-7.5 Specific [place] 1.017 (Normal) Range: 1.005-1.030 25-Lpo-822072:10 MICROALBUMIN: CREATININE RATIO Comments: PATIENT WAS FASTINGPERFORMED BY: Advanced Sports LogicCape Regional Medical CenterWecstg8794 [facility] [id number] (42646) AND (53692) Alb/Creat Ratio 56.7 {mg/g_creat} (Abnormal) Range: 0.0-30.0 Albumin, Urine 51.0 ug/mL (Normal) Creatinine, Urine 90.0 mg/dL (Normal) 64-Ekd-568397:10 LIPID PANEL (55464) Comments: PATIENT WAS FASTINGPERFORMED BY: [facility] LogicCape Regional Medical CenterOpspms9038 [facility] [id number] LDL/HDL Ratio 1.5 {ratio} (Normal) Range: 0.0-3.6 [...] (Normal) Range: 100-199 :30 HgA1C , Office (10995) HgA1C , Office 5.8 % (Normal) Range: 4.6 - 7.1 :30 Blood Glucose , Office (92806) Blood Glucose , Office 123 (Normal) 28-Gqb-904657:54 Valproic Acid (86557) Comments: fax results [phone]; PATIENT NOT FASTINGPERFORMED BY: Lab[facility] Xtrqxs0797 [facility] [id number] Valproic Acid (Depakote)(R),S 67 ug/mL (Normal) Range: 50-100 Comments: Detection Limit = 4 <4 indicates None Detected . Toxicity may occur at levels of 100-500. Measurements of free unbound valproic acid may improve the assess- ment of clinical response. 52-Hpi-381712:54 CBC WITH MANUAL DIFF Comments: fax results [phone]; PATIENT NOT FASTINGPERFORMED BY: [facility] Unvucd9197 [facility] [id number] Information: NURSE DRAW (14490) Immature Grans (Abs) 0.0 {x10E3/uL} (Normal) Range: [...] 4.14-5.80 WBC 7.1 {x10E3/uL} (Normal) Range: 3.4-10.8 33-Otp-994101:54 Metabolic Panel, Comprehensive Comments: fax results [phone]; PATIENT NOT FASTINGPERFORMED BY: LabCoCape Regional Medical CenterZbqfrm2394 [facility] [id number] (69948) ALT (SGPT) 7 [iU]/L (Normal) Range: 0-44 [...] 8-27 Glucose 107 mg/dL (Abnormal) Range: 65-99 12-Vxt-367809:54 AMMONIA (50294) Comments: fax results [phone]; PATIENT NOT FASTINGPERFORMED BY: [facility] Abylzn1295 [address] [place] [id number] Ammonia, Plasma 53 ug/dL (Normal) Range: 27-102 6-Nzx-444927:17 Bedside Glucose Comments: [facility] LaboratoryPoint of Rydu[address] [place] [place] [address] BEDSIDE GLU 74 mg/dL (Normal) Range: 70-110 Comments: MANAGEMENT OF PATIENT CARE PER NURSING PROTOCOL 3-Hpm-421298:11 Urinalysis, Complete Comments: Order Date: 05/08/18How was Urine Obtained? CLEAN [facility] Igznwmwyfm[address] [place], [address] MUCUS, URINE 0 SEEN {/hpf} [...] (Normal) CLARITY Clear (Normal) COLOR Yellow (Normal) 2-Ihy-258005:11 Urine Drug Screen (VISTA) Comments: [facility] Qonkaautgc1326 [facility] [place], [address] THC NEGATIVE (Normal) PCP NEGATIVE [...] TESTING MUST BE ORDERED SEPARATELY. USE TESTMNEMONIC: [facility] 5-Jtw-685268:56 Alcohol, Blood (Medical)-Serum Comments: [facility] Wqfasenixu[address] [place], [place], [address] SERUM ETOH 5.0 mg/dL (Normal) Comments: The serum:whole blood ethanol ratio is approximately 1.14and varies slightly with hematocrit.Medical Alcohol reference interval and critical value innon-tolerant individuals; 50 - 100 Impairment 100 Intoxication 100 - 250 Severe Poisoning 250 - 400 Deep/possible fatal coma 3-Qiw-765171:56 Basic Metabolic Profile (BMP) Comments: [facility] Gfx[address]ixsuz[address] [place], [place], [address] GAP 3 (Abnormal) Range: 5-15 CO2 32.0 [...] Please note revised GLUCOSE reference range /02/2018. :56 CBC W/Diff, Automated Comments: [facility] [address] [place], [place], [address] Absolute Lymph 1.81 {X10_3/ul} (Normal) Range: 0.83-4.51 [...] Range: 4.4-11.0 :56 Partial Thromboplast Time Comments: [facility] Spr[address]tf[address] [place], [place], [address] PTT 30.4 s (Normal) Range: 24.1-36.2 8-Mcv-555051:56 Prothrombin Time w/INR Comments: [facility] [address] [place], [address] INR 1.2 (Normal) PROTIME 15.4 s (Abnormal) Range: 11.7-14.9 2-Iee-145909:56 Troponin-I Comments: [facility] Itdjnu[address] [place], [address] TROPONIN-I < 0.015 ng/mL (Normal) Comments: TROPONIN-I EXPECTED VALUES <0.045 Negative 0.045 - 0.590 Consistent with Cardiac Damage > OR = 0.600 Critical Value Not every elevated troponin is indicative of IL. T hesevalues should be used with clinical judgement in examiningthe patient's clinical picture for diagnosis. To establisha diagnosis of IL versus myocardial injury, there must be ademonstrated rise and/ or fall in the troponin values, inaddition to ischemic symptoms, EKG changes, new regionalwall motion abnormality, and/or angiographical evidence. PLEASE NOTE: REFERENCE RANGES EDITED 02/17/1808-May-20189-Nzj-652354:56 Valproic Acid (Depakene) Level Comments: [facility] F[address] [place], [address] VALPROIC ACID 85 ug/mL (Normal) Range: 50-100 16-Wbi-894322:00 Alcohol, Blood (Medical)-Serum Comments: [facility] Knpcdyzw[address] [place], [address] SERUM ETOH 10.0 mg/dL (Normal) Comments: The serum:whole blood ethanol ratio is approximately 1.14and varies slightly with hematocrit.Medical Alcohol reference interval and critical value innon-tolerant individuals; 50 - 100 Impairment 100 Intoxication 100 - 250 Severe Poisoning 250 - 400 Deep/possible fatal coma 26-Fgb-950038:00 Basic Metabolic Profile (BMP) Comments: [facility] E[address] [place], [address] GAP 5 (Normal) Range: 5-15 CO2 30.0 [...] A.D.A. criteria.Please note revised GLUCOSE reference range lehyxsnzw24/02/2018. 62-Bel-657288:00 CBC W/Diff, Automated Comments: [facility] Dhgjovizzr[address] [place], [address] Absolute Lymph 1.48 {X10_3/ul} (Normal) Range: 0.83-4.51 [...] 4.6-6.2 WBC 6.1 K/mm3 (Normal) Range: 4.4-11.0 39-Vjx-250167:00 Liver Profile Comments: [facility] Dpmsxgodfe2839 [facility] [place], [place], [id number] D BILI 0.14 mg/dL (Normal) Range: 0.00-0.30 T BILI 0.40 mg/dL (Normal) Range: 0.20-1.00 ALT 15 U/L (Abnormal) Range: 16-61 ALK P 71 U/L (Normal) Range: 45-117 AST 15 U/L (Normal) Range: 15-37 GLOB 2.6 g/dL (Normal) Range: 2.2-4.2 ALB 3.3 g/dL (Normal) Range: 3.2-5.0 T PROT 5.9 g/dL (Abnormal) Range: 6.4-8.2 20-Bvo-133908:00 Troponin-I Comments: [facility] Ztpagjdtnr5069 [facility] [place], [place], [address] TROPONIN-I < 0.015 ng/mL (Normal) Comments: TROPONIN-I EXPECTED VALUES <0.045 Negative 0.045 - 0.590 Consistent with Cardiac Damage > OR = 0.600 Critical Value Not every elevated troponin is indicative of IL. T hesevalues should be used with clinical judgement in examiningthe patient's clinical picture for diagnosis. To establisha diagnosis of IL versus myocardial injury, there must be ademonstrated rise and/ or fall in the troponin values, inaddition to ischemic symptoms, EKG changes, new regionalwall motion abnormality, and/or angiographical evidence. PLEASE NOTE: REFERENCE RANGES EDITED 02/17/1802-May-201851-Qqz-809967:00 Urinalysis, Complete Comments: Order Date: 05/02/18How was Urine Obtained? [facility] [address]vcdxzl[address] [place], [place], [address] MUCUS, URINE 0 SEEN {/hpf} (Normal) BACTERIA [...] (Normal) CLARITY Clear (Normal) COLOR Yellow (Normal) 53-Fnk-104369:00 Urine Drug Screen (VISTA) Comments: Order Date: 05/02/18[facility] Mawwrjtfvs[address] [place], [place], [address] THC NEGATIVE (Normal) PCP NEGATIVE (Normal) OPIATES [...] TESTING MUST BE ORDERED SEPARATELY. USE TESTMNEMONIC: [facility] 37-Xto-125485:43 Valproic Acid (Depakene) Level Comments: [facility] Ozcemtcjkj[address] [place], [address] VALPROIC ACID 63 ug/mL (Normal) Range: 50-100 74-Hni-998748:20 Basic Metabolic Profile (BMP) Comments: [facility] Xvuazquexv[address] [place], [address] GAP 7 (Normal) Range: 5-15 CO2 28.0 [...] Comments: Please note revised GLUCOSE reference range pimpeasmy19/02/2018. 67-Nqd-457574:20 CBC W/Diff, Automated Comments: [facility] Sfq[address]imtdfw[address] [place], [address] Absolute Lymph 1.48 {X10_3/ul} (Normal) Range: 0.83-4.51 [...] 4.6-6.2 WBC 6.7 K/mm3 (Normal) Range: 4.4-11.0 88-Uqe-494763:20 Partial Thromboplast Time Comments: [facility] Ndnzenthrb3398 [facility] [place], [address] PTT 30.6 s (Normal) Range: 24.1-36.2 23-Qcw-281798:20 Prothrombin Time w/INR Comments: [facility] Buiuzkvodx99[address] [place], [address] INR 1.1 (Normal) PROTIME 14.4 s (Normal) Range: 11.7-14.9 62-Tce-422554:20 Troponin-I Comments: [facility] Cocxxkcpej1419 [facility] [place], [address] TROPONIN-I < 0.015 ng/mL (Normal) Comments: TROPONIN-I EXPECTED VALUES <0.045 Negative 0.045 - 0.590 Consistent with Cardiac Damage > OR = 0.600 Critical Value Not every elevated troponin is indicative of IL. T hesevalues should be used with clinical judgement in examiningthe patient's clinical picture for diagnosis. To establisha diagnosis of IL versus myocardial injury, there must be ademonstrated rise and/ or fall in the troponin values, inaddition to ischemic symptoms, EKG changes, new regionalwall motion abnormality, and/or angiographical evidence. PLEASE NOTE: REFERENCE RANGES EDITED 02/17/1816-Apr-201867-Cst-402562:11 Bedside Glucose Comments: [facility] [place] [address] [address] [place] [phone] BEDSIDE GLU 84 mg/dL (Normal) Range: 70-110 Comments: MANAGEMENT OF PATIENT CARE PER NURSING PROTOCOL 31-Lqt-589380:09 Anaerobic & Aerobic Comments: Left Leg; PATIENT NOT FASTINGPERFORMED BY: LabCoCape [facility] Medical CenterLfgnlq4928 [facility] [id number] Information: LEFT LEG SRC:LG Culture (08395) Result 1 Mixed skin elvira (Normal) Aerobic Culture Final report (Normal) Result 1 NANG72 (Normal) Comments: No anaerobic growth in 72 hours. Anaerobic Culture Final report (Normal) 58-Xuy-45687:17 Alanine Aminotransferas (SGPT) Comments: [address] [place], [address] ALT 15 U/L (Abnormal) Range: 16-61 57-Dsa-23479:17 AST(SGOT) Comments: [address], [address] AST 20 U/L (Normal) Range: 15-37 55-Kqu-36884:17 Platelet Count Comments: [address], [address] PLT 178 K/mm3 (Normal) Range: 150-450 11-Tcp-50734:17 Valproic Acid (Depakene) Level Comments: [address] [place], [address] VALPROIC ACID 73 ug/mL (Normal) Range: 50-100 54-Uty-421759:05 Basic Metabolic Profile (BMP) Comments: [address], [address] GAP 4 (Abnormal) Range: 5-15 CO2 33.0 [...] Comments: Please note revised GLUCOSE reference range ccjlzuqbp75/02/2018. 18-Bon-037974:05 CBC W/Diff, Automated Comments: [facility] [address]tch[address] [place], [address] Absolute Lymph 1.28 {X10_3/ul} (Normal) Range: 0.83-4.51 [...] 4.6-6.2 WBC 6.7 K/mm3 (Normal) Range: 4.4-11.0 17-Yut-113829:02 Microscopic Examination Comments: PATIENT WAS FASTINGPERFORMED BY: [employer] Uovvyc9558 [facility] [id number] Bacteria Few (Normal) Mucus Threads Present (Normal) Epithelial Cells (non renal) None seen {/hpf} (Normal) Range: 0 - 10 RBC 0-2 {/hpf} (Normal) Range: 0 - 2 WBC 0-5 {/hpf} (Normal) Range: 0 - 5 34-Gxf-944653:02 TSH (49573) Comments: PATIENT WAS FASTINGPERFORMED BY: [facility] LogicCape Regional Medical CenterAeutrp1065 [facility] [id number] TSH 3.530 {uIU/mL} (Normal) Range: 0.450-4.500 76-Ivi-827901:02 URINALYSIS, W/ MICRO (36740) Comments: PATIENT WAS FASTINGPERFORMED BY: [employer] [facility]6370 [facility] [id number] Microscopic Examination See below: (Normal) Comments: Microscopic was indicated and was performed. Microscopic Examination MICRON (Normal) Comments: Microscopic follows if indicated. Nitrite, Urine Negative (Normal) Urobilinogen,Semi-Qn 0.2 mg/dL (Normal) Range: 0.2-1.0 Bilirubin Negative (Normal) Occult Blood Negative (Normal) Ketones Negative (Normal) Glucose Negative (Normal) Protein Trace (Normal) WBC Esterase Negative (Normal) Appearance Clear (Normal) Urine-Color Yellow (Normal) pH 7.0 (Normal) Range: 5.0-7.5 Specific [place] 1.015 (Normal) Range: 1.005-1.030 70-Opa-287599:02 MICROALBUMIN: CREATININE RATIO Comments: PATIENT WAS FASTINGPERFORMED BY: [employer] [facility]6370 [facility] [id number] (84822) AND (63805) Alb/Creat Ratio 167.0 {mg/g_creat} (Abnormal) Range: 0.0-30.0 Albumin, Urine 110.4 ug/mL (Normal) Creatinine, Urine 66.1 mg/dL (Normal) 31-Fcs-284379:02 METABOLIC PANEL, COMPREHENSIVE Comments: PATIENT WAS FASTINGPERFORMED BY: Advanced Sports LogicAlta Vista Regional HospitalTskirx1350 [facility] [id number] (64791) ALT (SGPT) 16 [iU]/L (Normal) Range: 0-44 [...] Glucose, Serum 101 mg/dL (Abnormal) Range: 65-99 19-Qms-433833:02 LIPID PANEL (03339) Comments: PATIENT WAS FASTINGPERFORMED BY: [employer] Kjisii4433 [facility] [id number] LDL/HDL Ratio 1.3 {ratio_units} (Normal) Range: 0.0-3.6 Comments: LDL/HDL Ratio Men Women 1/2 Avg.Risk 1.0 1.5 Av g.Risk 3.6 3.2 2X Avg.Risk 6.2 5.0 3X Avg.Risk 8.0 6.1 LDL Cholesterol Calc 64 mg/dL (Normal) Range: 0-99 VLDL Cholesterol Justo 16 mg/dL (Normal) Range: 5-40 HDL Cholesterol 50 mg/dL (Normal) Triglycerides 79 mg/dL (Normal) Range: 0-149 Cholesterol, Total 130 mg/dL (Normal) Range: 100-199 99-Ixw-724193:02 CBC W/AUTO DIFF WBC (49012) Comments: PATIENT WAS FASTINGPERFORMED BY: [employer] QClin6370 [facility] [id number] Immature Grans (Abs) 0.0 {x10E3/uL} (Normal) Range: [...] 4.14-5.80 WBC 6.9 {x10E3/uL} (Normal) Range: 3.4-10.8 10-Oom-459114:52 HgA1C , Office (33445) HgA1C , Office 5.8 % (Normal) Range: 4.6 - 7.1 :52 Blood Glucose , Office (60333) Blood Glucose , Office 110 (Normal) 61-Qct-250279:01 Microscopic Examination Comments: PATIENT NOT FASTINGPERFORMED BY: [facility] Zgqjgd5479 [facility] [id number] Bacteria Few (Normal) Mucus Threads Present (Normal) Cast Type Hyaline casts (Normal) Casts Present {/lpf} (Abnormal) Epithelial Cells (non renal) None seen {/hpf} (Normal) Range: 0 - 10 RBC 0-2 {/hpf} (Normal) Range: 0 - 2 WBC 0-5 {/hpf} (Normal) Range: 0 - 5 56-Yiw-621766:40 Urine Drug Screen (VISTA) Comments: [facility] Rloc[address]azzke[address] [place], [place], [address] THC NEGATIVE (Normal) PCP NEGATIVE (Normal) OPIATES [...] TESTING MUST BE ORDERED SEPARATELY. USE TESTMNEMONIC: [facility] :06 Alcohol, Blood (Medical)-Serum Comments: [facility] Mbltxxblrl[address] [place], [place], [address] SERUM ETOH < 3.0 mg/dL (Normal) Comments: The serum:whole blood ethanol ratio is approximately 1.14and varies slightly with hematocrit.Medical Alcohol reference interval and critical value innon-tolerant individuals; 50 - 100 Impairment 100 Intoxication 100 - 250 Severe Poisoning 250 - 400 Deep/possible fatal coma :06 Basic Metabolic Profile (BMP) Comments: [facility] Myztuczaaf[address] [place], [place], [address] GAP 8 (Normal) Range: 5-15 CO2 29.0 [...] A.D.A. criteria. :06 CBC W/Diff, Automated Comments: [facility] Bdznufabpa0[address] [place], [place], [address] Absolute Lymph 1.12 {X10_3/ul} (Normal) Range: 0.83-4.51 [...] 4.6-6.2 WBC 8.7 K/mm3 (Normal) Range: 4.4-11.0 79-Jqw-449032:06 Valproic Acid (Depakene) Level Comments: [facility] Qnpyrkjoih7399 [address] [place], [place], [address] VALPROIC ACID 49 ug/mL (Abnormal) Range: 50-100 0-Hpg-711342:29 HGB A1C (01073) HGB A1C 5.9 % (Normal) Range: 4.6 - 7.1 :57 TSH (57736) Comments: PATIENT WAS FASTINGPERFORMED BY: LabCoCape Regional Medical CenterEuvukx7202 [facility] [id number] TSH 3.020 {uIU/mL} (Normal) Range: 0.450-4.500 59-Svl-540650:01 URINALYSIS, W/ MICRO (67672) Comments: PATIENT NOT FASTINGPERFORMED BY: [employer] Zrgcje8961 [facility] [id number] Microscopic Examination See below: (Normal) Comments: Microscopic was indicated and was performed. Microscopic Examination MICRON (Normal) Comments: Microscopic follows if indicated. Nitrite, Urine Negative (Normal) Urobilinogen,Semi-Qn 0.2 mg/dL (Normal) Range: 0.2-1.0 Bilirubin Negative (Normal) Occult Blood Negative (Normal) Ketones Negative (Normal) Glucose Negative (Normal) Protein Negative (Normal) WBC Esterase Negative (Normal) Appearance Clear (Normal) Urine-Color Yellow (Normal) pH 6.5 (Normal) Range: 5.0-7.5 Specific [place] 1.010 (Normal) Range: 1.005-1.030 32-Wax-570751:01 MICROALBUMIN: CREATININE RATIO Comments: PATIENT NOT FASTINGPERFORMED BY: [employer]6370 [facility] [id number] (79144) AND (15647) Microalb/Creat Ratio 43.2 {mg/g_creat} (Abnormal) Range: 0.0-30.0 Microalbumin, Urine 20.9 ug/mL (Normal) Creatinine, Urine 48.4 mg/dL (Normal) 21-Nje-667565:57 METABOLIC PANEL, COMPREHENSIVE Comments: PATIENT WAS FASTINGPERFORMED BY: [employer] Dmsfvn0602 [facility] [id number] (40551) ALT (SGPT) 6 [iU]/L (Normal) Range: 0-44 [...] Glucose, Serum 79 mg/dL (Normal) Range: 65-99 29-Jpo-779954:57 LIPID PANEL (21041) Comments: PATIENT WAS FASTINGPERFORMED BY: [employer]70 [facility] [id number] LDL/HDL Ratio 1.2 {ratio_units} (Normal) Range: 0.0-3.6 Comments: LDL/HDL Ratio Men Women 1/2 Avg.Risk 1.0 1.5 Av g.Risk 3.6 3.2 2X Avg.Risk 6.2 5.0 3X Avg.Risk 8.0 6.1 LDL Cholesterol Calc 51 mg/dL (Normal) Range: 0-99 VLDL Cholesterol Justo 17 mg/dL (Normal) Range: 5-40 HDL Cholesterol 42 mg/dL (Normal) Triglycerides 84 mg/dL (Normal) Range: 0-149 Cholesterol, Total 110 mg/dL (Normal) Range: 100-199 27-Jia-951814:57 CBC W/AUTO DIFF WBC (21697) Comments: PATIENT WAS FASTINGPERFORMED BY: [employer]6370 [facility] HoldingsCritical access hospital [id number] Immature Grans (Abs) 0.0 {x10E3/uL} (Normal) Range: [...] 4.14-5.80 WBC 8.5 {x10E3/uL} (Normal) Range: 3.4-10.8 2-Mgy-522173:23 Blood Glucose , Office (85053) Blood Glucose , Office 106 (Normal) 46-Sjn-786684:31 PSA (PROSTATE SPECIFIC Comments: PATIENT WAS FASTINGPERFORMED BY: [facility] Gladwin6370 [facility] [id number] ANTIGEN) (V76.44) Prostate Specific Ag, 1.6 ng/mL (Normal) Range: 0.0-4.0 Serum Comments: Car ECLIA methodology. .According to the [place] [employer], Serum PSA shoulddecrease and remain at undetectable levels after radicalprostatectomy. The AUA defines biochemical recurrence as an initialPSA value 0.2 ng/mL or greater followed by a subsequent confirmatoryPSA value 0.2 ng/mL or greater.Values obtained with d ifferent assay methods or kits cannot be usedinterchangeably. Results cannot be interpreted as absolute evidenceof the presence or absence of malignant disease. :31 HGB A1C (58903) Comments: PATIENT WAS FASTINGPERFORMED BY: [facility] Zyuldh6359 [facility] [place] [id number] Hemoglobin A1c 6.0 % (Abnormal) Range: 4.8-5.6 Comments: . Pre-diabetes: 5.7 - 6.4 Diabetes: >6.4 Glycemic control for adults with diabetes: <7.0 :31 TSH (THYROID STIMULATING Comments: PATIENT WAS FASTINGPERFORMED BY: [facility] Kxtenv7197 [place] [facility] HospitalD[facility] [place] [id number] HORMONE) (21032) TSH 2.990 {uIU/mL} (Normal) Range: 0.450-4.500 :31 CALCIFEDIOL (34492) Comments: PATIENT WAS FASTINGPERFORMED BY: [facility] Topwkj5863 [place] [facility] HospitalD[facility] [place] [id number] Vitamin D, 25-Hydroxy 29.6 ng/mL (Abnormal) Range: 30.0-100.0 Comments: Vitamin D deficiency has been defined by the [place] of[facility] Hospitalcine and an Endocrine Society practice guideline as alevel of serum 25-OH vitamin D less than 20 ng/mL (1,2).The Endocrine Society went on to further define vitamin Dinsufficiency as a level between 21 and 29 ng/mL (2).1. IOM ([place] of Medicine). 2010. Dietary reference intakes for calcium and D. [place]: The National Academies Press.2. Forrest MF, [place], Lexi ESPINOZA, et al. Evaluation, treatment, and prevention of vitamin D deficiency: an Endocrine Society clinical practice guideline. JCEM. 2010; 96(7):1911-30. :31 MICROALBUMIN: CREATININE RATIO Comments: PATIENT WAS FASTINGPERFORMED BY: [facility] Jmlvez4908 [place] [facility] HospitalDublin [place] [id number] (09773) AND (28324) Microalb/Creat Ratio 408.1 {mg/g_creat} (Abnormal) Range: 0.0-30.0 Microalbumin, Urine 85.3 ug/mL (Normal) Creatinine, Urine 20.9 mg/dL (Normal) 77-Jke-476331:31 METABOLIC PANEL, COMPREHENSIVE Comments: PATIENT WAS FASTINGPERFORMED BY: [employer] Xybrop5910 [facility] [id number] (90917) ALT (SGPT) 9 [iU]/L (Normal) Range: 0-44 [...] Glucose, Serum 117 mg/dL (Abnormal) Range: 65-99 44-Erg-230101:31 LIPID PANEL (03766) Comments: PATIENT WAS FASTINGPERFORMED BY: [facility] Sports LogicAlta Vista Regional HospitalKoqgji5508 [facility] [id number] LDL/HDL Ratio 1.1 {ratio_units} (Normal) Range: 0.0-3.6 Comments: LDL/HDL Ratio Men Women 1/2 Avg.Risk 1.0 1.5 Av g.Risk 3.6 3.2 2X Avg.Risk 6.2 5.0 3X Avg.Risk 8.0 6.1 LDL Cholesterol Calc 68 mg/dL (Normal) Range: 0-99 VLDL Cholesterol Justo 18 mg/dL (Normal) Range: 5-40 HDL Cholesterol 63 mg/dL (Normal) Triglycerides 88 mg/dL (Normal) Range: 0-149 Cholesterol, Total 149 mg/dL (Normal) Range: 100-199 66-Xbh-203079:31 CBC with auto diff (34674) Comments: PATIENT WAS FASTINGPERFORMED BY: [facility] Klxxft4067 [facility] [id number] Immature Grans (Abs) 0.0 {x10E3/uL} (Normal) Range: [...] 4.14-5.80 WBC 6.4 {x10E3/uL} (Normal) Range: 3.4-10.8 76-Wms-158139:00 Urine Drug Screen (VISTA) Comments: [facility] [address] [place], [place], [address] THC NEGATIVE (Normal) PCP NEGATIVE (Normal) OPIATES [...] TESTING MUST BE ORDERED SEPARATELY. USE TESTMNEMONIC: [facility] 92-Xom-037968:45 Alcohol, Blood (Medical)-Serum Comments: [facility] [address]osxbiur[address] [place], [place], [address] SERUM ETOH < 3.0 mg/dL (Normal) Comments: The serum:whole blood ethanol ratio is approximately 1.14and varies slightly with hematocrit.Medical Alcohol reference interval and critical value innon-tolerant individuals; 50 - 100 Impairment 100 Intoxication 100 - 250 Severe Poisoning 250 - 400 Deep/possible fatal coma 95-Tcd-460978:45 Basic Metabolic Profile (BMP) Comments: [facility] [address]kddbwadhf[address] [place], [place], [address] GAP 1 (Abnormal) Range: 5-15 CO2 31.0 [...] <126 mg/dLsuggests IMPAIRED HOMEOSTASIS per A.D.A. criteria. 21-Ceu-211422:45 CBC W/Diff, Automated Comments: [facility] [address]mfjfej[address] [place], [address] Absolute Lymph 1.30 {X10_3/ul} (Normal) Range: 0.83-4.51 [...] Range: 4.4-11.0 :44 Alcohol, Blood (Medical)-Serum Comments: [facility] [address]cslbxfkur[address] [place], [place], [address] SERUM ETOH < 3.0 mg/dL (Normal) Comments: The serum:whole blood ethanol ratio is approximately 1.14and varies slightly with hematocrit.Medical Alcohol reference interval and critical value innon-tolerant individuals; 50 - 100 Impairment 100 Intoxication 100 - 250 Severe Poisoning 250 - 400 Deep/possible fatal coma :44 CBC W/Diff, Automated Comments: [facility] [address] [place], [address] Absolute Lymph 1.10 {X10_3/ul} (Normal) [...] 4.6-6.2 WBC 6.7 K/mm3 (Normal) Range: 4.4-11.0 15-Bcn-07566:44 Comprehensive Metabolic Profil Comments: [facility] Mqtzhcnoni[address] [place], [address] GAP 1 (Abnormal) Range: 5-15 CO2 31.0 [...] 70-110 :44 Urine Drug Screen (VISTA) Comments: [facility] Crxvwulkpe[address] [place], [place], [address] THC NEGATIVE (Normal) PCP NEGATIVE (Normal) OPIATES [...] UTCA :44 Valproic Acid (Depakene) Level Comments: [facility] [address] [place], [place], [id number] VALPROIC ACID < 3 ug/mL (Abnormal) Range: 50-100 86-Etl-202667:53 CBC, PLATELETS & MANUAL Comments: PATIENT NOT FASTINGPERFORMED BY: [facility] Wqzfoy5091 [facility] [id number] Information: [id number] DIFF ([id number]) Immature Grans (Abs) 0.0 {x10E3/uL} (Normal) Range: [...] Range: 3.4-10.8 :56 Alcohol, Blood (Medical)-Serum Comments: [facility] [address] [facility] [place], [address] SERUM ETOH 5.0 mg/dL (Normal) Comments: The serum:whole blood ethanol ratio is approximately 1.14and varies slightly with hematocrit.Medical Alcohol reference interval and critical value innon-tolerant individuals; 50 - 100 Impairment 100 Intoxication 100 - 250 Severe Poisoning 250 - 400 Deep/possible fatal coma :56 Basic Metabolic Profile (BMP) Comments: [facility] [address] [place], [place], [id number] GAP 6 (Normal) Range: 5-15 CO2 29.0 [...] A.D.A. criteria. 09-May-20169:56 CBC W/Diff, Automated Comments: [facility] [address] [place], [place], [id number] Absolute Lymph 1.36 {X10_3/ul} (Normal) Range: 0.83-4.51 [...] 4.4-11.0 :56 Valproic Acid (Depakene) Level Comments: [facility] [address] [place], [place], [id number] VALPROIC ACID 33 ug/mL (Abnormal) Range: 50-100 :50 Urine Drug Screen (VISTA) Comments: [facility] [address] [place], [place], [id number] THC NEGATIVE (Normal) PCP NEGATIVE (Normal) OPIATES [...] TESTING MUST BE ORDERED SEPARATELY. USE TESTMNEMONIC: [facility]53 CBC, PLATELETS & MANUAL Comments: PATIENT NOT FASTINGPERFORMED BY: [facility] Qulxsr2458 [facility] [id number] Information: [id number] DIFF ([id number]) Immature Grans (Abs) 0.0 {x10E3/uL} (Normal) Range: [...] 4.14-5.80 WBC 6.7 {x10E3/uL} (Normal) Range: 3.4-10.8 14-Tym-518979:56 CBC, PLATELETS & MANUAL Comments: PATIENT NOT FASTINGPERFORMED BY: [facility] Lmsgwi3003 [facility] [id number] Information: [id number] DIFF ([id number]) Immature Grans (Abs) 0.0 {x10E3/uL} (Normal) Range: [...] 4.14-5.80 WBC 7.7 {x10E3/uL} (Normal) Range: 3.4-10.8 65-Een-249747:28 Metabolic Panel, Comprehensive Comments: PATIENT NOT FASTINGPERFORMED BY: [facility] CenterSkeerx1701 [facility] [id number] ([id number]) ALT (SGPT) 7 [iU]/L (Normal) Range: 0-44 [...] Glucose, Serum 99 mg/dL (Normal) Range: 65-99 36-Cqe-529610:28 CBC, Platelets & Auto Comments: PATIENT NOT FASTINGPERFORMED BY: [facility] CenterIowpis4928 [facility] [id number] Information: [id number] Diff ([id number]) Immature Grans (Abs) 0.0 {x10E3/uL} (Normal) Range: [...] 6.9 {x10E3/uL} (Normal) Range: 3.4-10.8 :28 TSH (12172) Comments: PATIENT NOT FASTINGPERFORMED BY: [facility] CenterWjfcna0158 [facility] [id number] TSH 3.600 {uIU/mL} (Normal) Range: 0.450-4.500 :06 HgA1C , Office (07539) Comments: 5.9 HgA1C , Office 5.9 % (Normal) Range: 4.6 - 7.1 :06 Blood Glucose , Office (70317) Blood Glucose , Office 91 (Normal) :06 Urinalysis, Office (54499) UA - LEUKOCYTE ESTERASE Negative (Normal) UA - NITRITE Negative (Normal) URINE UROBILINGN SALMA TIMED Normal mg/dL (Normal) UA - PROTEIN Negative mg/dL (Normal) UA - PH 6 (Abnormal) UA - BLOOD Negative (Normal) UA - SPECIFIC GRAVITY 1.010 (Normal) UA - KETONES Negative mg/dL (Normal) UA - BILIRUBIN Negative (Normal) UA - GLUCOSE Negative (Normal) 66-Kvz-953570:06 CBC, PLATELETS & MANUAL Comments: PATIENT NOT FASTINGPERFORMED BY: [employer] Yrzpam9585 [facility] [id number] Information: [id number], [id number] DIFF ([id number]) Immature Grans (Abs) 0.0 {x10E3/uL} (Normal) Range: [...] 4.14-5.80 WBC 6.1 {x10E3/uL} (Normal) Range: 3.4-10.8 28-Mbl-766492:50 CBC, PLATELETS & MANUAL Comments: PATIENT NOT FASTINGPERFORMED BY: [facility] [address] [facility] [id number] Information: [id number] DIFF ([id number]) Immature Grans (Abs) 0.0 {x10E3/uL} (Normal) Range: [...] 4.14-5.80 WBC 5.7 {x10E3/uL} (Normal) Range: 3.4-10.8 7-Mye-896658:50 CBC, PLATELETS & MANUAL Comments: PATIENT NOT FASTINGPERFORMED BY: [facility] Vgyfrb2126 [facility] [id number] Information: [id number] DIFF ([id number]) Immature Grans (Abs) 0.0 {x10E3/uL} (Normal) Range: [...] 4.14-5.80 WBC 8.2 {x10E3/uL} (Normal) Range: 3.4-10.8 43-Ell-187134:42 CBC, PLATELETS & MANUAL Comments: PATIENT NOT FASTINGPERFORMED BY: ABHINAV [facility] Enkhim1312 [facility] [id number] Information: [id number] DIFF ([id number]) Immature Grans (Abs) 0.0 {x10E3/uL} (Normal) Range: [...] 4.14-5.80 WBC 7.0 {x10E3/uL} (Normal) Range: 3.4-10.8 71-Xya-682181:44 MRSA Wound DNA by PCR Comments: Specimen Source? NASAL, [facility] [address] [place], [address] SA RESULT NEGATIVE (Normal) MRSA RESULT Negative (Normal) 97-Akm-651235:53 CBC, PLATELETS & MANUAL Comments: PATIENT NOT FASTINGPERFORMED BY: [employer] [facility] [place] [address] [id number] Information: [id number] DIFF (65035) Immature Grans (Abs) 0.0 {x10E3/uL} (Normal) Range: [...] 4.14-5.80 WBC 10.1 {x10E3/uL} (Normal) Range: 3.4-10.8 13-Jip-067276:13 PSA (PROSTATE SPECIFIC Comments: PATIENT NOT FASTINGPERFORMED BY: [facility] [address] [facility] [id number] ANTIGEN) (V76.44) Prostate Specific Ag, 1.2 ng/mL (Normal) Range: 0.0-4.0 Serum Comments: Car ECLIA methodology. .According to the [place] [employer], Serum PSA shoulddecrease and remain at undetectable levels after radicalprostatectomy. The AUA defines biochemical recurrence as an initialPSA value 0.2 ng/mL or greater followed by a subsequent confirmatoryPSA value 0.2 ng/mL or greater.Values obtained with d ifferent assay methods or kits cannot be usedinterchangeably. Results cannot be interpreted as absolute evidenceof the presence or absence of malignant disease. 00-Pcj-309659:13 Hemoglobin Glyclated (HGB A1C) Comments: PATIENT NOT FASTINGPERFORMED BY: [employer]6370 [facility] [id number] ([id number]) Hemoglobin A1c 6.0 % (Abnormal) Range: 4.8-5.6 Comments: . Pre-diabetes: 5.7 - 6.4 Diabetes: >6.4 Glycemic control for adults with diabetes: <7.0 46-Asx-520418:13 DHEA-S (DEHYDROEPIANDROSTERONE Comments: PATIENT NOT FASTINGPERFORMED BY: [employer] Ndcfqz9318 [facility] HoldingsMinter City [place] [id number] SULFATE) ([id number]) DHEA-Sulfate 133.8 ug/dL (Normal) Range: 48.9-344.2 54-Ivs-404065:13 TESTOSTERONE TOTAL (44935) Comments: PATIENT NOT FASTINGPERFORMED BY: [employer] Zlnsmn9508 [facility] [place] [id number] Comment: TESTM (Normal) Comments: Adult male reference interval is based on a population of lean malesup to 40 years old. Testosterone, Serum 529 ng/dL (Normal) Range: 348-1197 94-Nie-346469:13 TSH ([id number]) Comments: PATIENT NOT FASTINGPERFORMED BY: [employer] [facility] Dmmspu[address] [place] [facility] [place] [id number] TSH 2.910 {uIU/mL} (Normal) Range: 0.450-4.500 53-Gir-120719:13 METABOLIC PANEL, COMPREHENSIVE Comments: PATIENT NOT FASTINGPERFORMED BY: [employer] Veyljk7819 [facility] [id number] ([id number]) ALT (SGPT) 7 [iU]/L (Normal) Range: 0-44 [...] Glucose, Serum 92 mg/dL (Normal) Range: 65-99 39-Mob-512924:13 CBC W/AUTO DIFF WBC Comments: PATIENT NOT FASTINGPERFORMED BY: [facility] Dotfyr5231 [facility] [id number] Information: [id number] ([id number]) Immature Grans (Abs) 0.0 {x10E3/uL} (Normal) Range: [...] mental state Altered mental state : Reviewed Medical Reimbursement Specialist Letter Indication: Altered mental state Altered mental status, unspecified altered mental status type : Reviewed Lab Indication: Altered mental status, unspecified altered mental status type Altered mental status, unspecified altered mental status type : Reviewed Diagnostic Tests Indication: Altered mental status, unspecified altered mental status type Altered mental status, unspecified altered mental status type : Reviewed Medical Reimbursement Specialist Letter Indication: Altered mental status, unspecified altered [...] of lower extremity, unspecified laterality : Reviewed Medical Reimbursement Specialist Letter Indication: Cellulitis of lower extremity, unspecified laterality Mild intermittent asthma without complication : Continue Current Prescription(s) Indication: Mild intermittent asthma without complication Controlled diabetes mellitus : Follow up in 3 months Indication: Controlled diabetes mellitus Essential hypertension : HTN/CAD Red Flags Indication: Essential hypertension Dog bite of upper extremity, right, subsequent encounter : Reviewed Medical Reimbursement Specialist Letter Indication: Dog bite of upper extremity, right, subsequent encounter Cellulitis of forearm : Continue Current Prescription(s) Indication: Cellulitis of forearm Dog bite of upper extremity, right, initial encounter : Reviewed Medical Reimbursement Specialist Letter Indication: Dog bite of upper extremity, [...] Sinusitis, acute Planned Observations Metabolic Panel, Basic ([id number])Indication: Therapeutic drug monitoring On: 1-Yvr-452749:23 Request CBC, PLATELETS & MANUAL DIFF ([id number])Indication: Essential hypertension On: 19-Mar-2017 Request CBC, PLATELETS & MANUAL DIFF ([id number])Indication: Essential hypertension On: 12-Mar-2017 Request CBC, PLATELETS & MANUAL DIFF ([id number])Indication: Essential hypertension On: 05-Mar-2017 Request CBC, PLATELETS & MANUAL DIFF ([id number])Indication: Essential hypertension On: 26-Feb-2017 Request CBC, PLATELETS & MANUAL DIFF ([id number])Indication: Essential hypertension On: 19-Feb-2017 Request CBC, PLATELETS & MANUAL DIFF ([id number])Indication: Essential hypertension On: 12-Feb-2017 Request CBC, PLATELETS & MANUAL DIFF ([id number])Indication: Essential hypertension On: 05-Feb-2017 Request CBC, PLATELETS & MANUAL DIFF ([id number])Indication: Essential hypertension On: 29-Jan-2017 Request CBC, PLATELETS & MANUAL DIFF ([id number])Indication: Essential hypertension On: 22-Jan-2017 Request CBC, PLATELETS & MANUAL DIFF ([id number])Indication: Essential hypertension On: 15-Jan-2017 Request HgA1C , Office ([id number])Indication: Controlled diabetes mellitus On: 3-Hya-119940:23 Request CBC, PLATELETS & MANUAL DIFF ([id number])Indication: Essential hypertension On: 08-Jan-2017 Request CBC, PLATELETS & MANUAL DIFF ([id number])Indication: Essential hypertension On: 01-Jan-2017 Request CBC, PLATELETS & MANUAL DIFF ([id number])Indication: Essential hypertension On: 25-Dec-2016 Request CBC, PLATELETS & MANUAL DIFF ([id number])Indication: Essential hypertension On: 18-Dec-2016 Request CBC, PLATELETS & MANUAL DIFF ([id number])Indication: Essential hypertension On: 11-Dec-2016 Request CBC, PLATELETS & MANUAL DIFF ([id number])Indication: Essential hypertension On: 04-Dec-2016 Request CBC, PLATELETS & MANUAL DIFF ([id number])Indication: Essential hypertension On: 27-Nov-2016 Request CBC, PLATELETS & MANUAL DIFF ([id number])Indication: Essential hypertension On: 20-Nov-2016 Request CBC, PLATELETS & MANUAL DIFF ([id number])Indication: Essential hypertension On: 13-Nov-2016 Request CBC, PLATELETS & MANUAL DIFF ([id number])Indication: Essential hypertension On: 06-Nov-2016 Request CBC, PLATELETS & MANUAL DIFF ([id number])Indication: Essential hypertension On: 30-Oct-2016 Request Metabolic Panel, Basic ([id number])Indication: Mixed erectile dysfunction On: 80-Eed-561948:23 Request CBC, PLATELETS & MANUAL DIFF ([id number])Indication: Essential hypertension On: 23-Oct-2016 Request CBC, PLATELETS & MANUAL DIFF ([id number])Indication: Essential hypertension On: 16-Oct-2016 Request CBC, PLATELETS & MANUAL DIFF ([id number])Indication: Essential hypertension On: 09-Oct-2016 Request CBC, PLATELETS & MANUAL DIFF ([id number])Indication: Essential hypertension On: 02-Oct-2016 Request CBC, PLATELETS & MANUAL DIFF ([id number])Indication: Essential hypertension On: 25-Sep-2016 Request CBC, PLATELETS & MANUAL DIFF ([id number])Indication: Essential hypertension On: 18-Sep-2016 Request CBC, PLATELETS & MANUAL DIFF ([id number])Indication: Essential hypertension On: 11-Sep-2016 Request CBC, PLATELETS & MANUAL DIFF ([id number])Indication: Essential hypertension On: 04-Sep-2016 Request CBC, PLATELETS & MANUAL DIFF ([id number])Indication: Essential hypertension On: 28-Aug-2016 Request CBC, PLATELETS & MANUAL DIFF ([id number])Indication: Essential hypertension On: 21-Aug-2016 Request CBC, PLATELETS & MANUAL DIFF ([id number])Indication: Essential hypertension On: 14-Aug-2016 Request CBC, PLATELETS & MANUAL DIFF ([id number])Indication: Essential hypertension On: 07-Aug-2016 Request CBC, PLATELETS & MANUAL DIFF ([id number])Indication: Essential hypertension On: 31-Jul-2016 Request CBC, PLATELETS & MANUAL DIFF ([id number])Indication: Essential hypertension On: 24-Jul-2016 Request CBC, PLATELETS & MANUAL DIFF ([id number])Indication: Essential hypertension On: 17-Jul-2016 Request CBC, PLATELETS & MANUAL DIFF ([id number])Indication: Essential hypertension On: 10-Jul-2016 Request CBC, PLATELETS & MANUAL DIFF ([id number])Indication: Essential hypertension On: 03-Jul-2016 Request CBC, PLATELETS & MANUAL DIFF ([id number])Indication: Essential hypertension On: 26-Jun-2016 Request CBC, PLATELETS & MANUAL DIFF ([id number])Indication: Essential hypertension On: 19-Jun-2016 Request CBC, PLATELETS & MANUAL DIFF ([id number])Indication: Essential hypertension On: 12-Jun-2016 Request CBC, PLATELETS & MANUAL DIFF ([id number])Indication: Essential hypertension On: 05-Jun-2016 Request CBC, PLATELETS & MANUAL DIFF ([id number])Indication: Essential hypertension On: 29-May-2016 Request CBC, PLATELETS & MANUAL DIFF ([id number])Indication: Essential hypertension On: 22-May-2016 Request MICROALBUMIN: CREATININE RATIO ([id number]) AND ([id number])Indication: Weakness On: 63-Sjv-657760:22 Request CBC, PLATELETS & MANUAL DIFF ([id number])Indication: Essential hypertension On: 24-Apr-2016 Request MRSA Culture ([id number])Indication: Nasal lesion On: 82-Oul-057880:43 Request BELKIS CULTURE-BLOOD ([id number])Indication: History of bacteremia On: 65-Wnp-884651:27 Request Aerobic Bacterial Culture ([id number])Indication: Nasal lesion On: 97-Kcn-395664:25 Request URINALYSIS, W/ MICRO ([id number])Indication: Essential hypertension On: 15-Hoi-264508:41 Request MICROALBUMIN: CREATININE RATIO ([id number]) AND ([id number])Indication: Essential hypertension On: 38-Qqt-956154:41 Request Planned Encounters Medical; 3 Week FU - On: 05-Sep-2018 8:30 [facility] Dhara Taylor DO, DO, Kathleen Medical; 4 Month FU - On: 03-Oct-2018 7:00 [facility] Dhara Taylor DO, DO, Kathleen Planned Procedures Flu Vaccine (Quadrivalent) 44635Ty: On: 30-Jul-2018 Intent Dhara Taylor DO, DO, Kathleen MRI BRAIN W/ CONTRAST ([id number])By: On: 07-May-2018 Intent Dhara Taylor DO, DO, Kathleen ELECTROCARDIOGRAM, COMPLETE (ECG) On: 29-Oct-2017 Intent ([id number])By: Dhara Taylor DO Comments: nsr no acute chg Dhara Taylor DO Spirometry ([id number])By: Claudia RESENDEZ, On: 29-Oct-2017 Intent Dhara Hendricks DO Comments: #1 severe obstruction #2 severe obstruction -not much different after brisk walk TDAP VACCINE >7 IM ([id number])By: Claudia On: 26-Apr-2017 Intent Dhara RESENDEZ DO, Kathleen Comments: Lot:[id number]:05/23/19Dose:0.5mgRoute:im Site:[facility] By:GLORIA signed ELECTROCARDIOGRAM, COMPLETE (ECG) On: 10-Jan-2017 Intent ([id number])By: Dhara Taylor DO Comments: pt refused Dhara Taylor DO Aerosol Treatment ([id number])By: Claudia On: 05-Aug-2015 Intent Dhara RESENDEZ DO, Kathleen Spirometry ([id number])By: Claudia RESENDEZ, On: 05-Aug-2015 Intent Dhara Hendricks [...] Reason for hospitalization note: (1 week at [facility] I broke up a dog fight [...] Reason for hospitalization note: (1 week at [facility] I broke up a dog fight and I had some stiches in the rt arm). Patient has been compliant with instructions. Current medication use: no side End: 26-Apr-2017 15:00 effects and compliant with dosing regimen.Encounter Diagnosis: Dog bite of upper extremity, right, initial encounter, Cellulitis of forearm, Need for Tdap vaccination (Renamed from Need for fmwgrksqpf-arfwlux-jwizjlwqx (Tdap) vaccine, adult/a dolescent) [facility] [...] like [place] [facility] [place]. Have been incontinent of urine and extreme weakness. Was seeing Dr. Longoria at [facility] switched to Dr. Zhu Diagnosis: Weakness, [...]
--- OUTSIDE RECORDS SUMMARY | 2018-10-15 01:40 | XMS RPT_ITS | Continuity of Care Document ---
:1955 Author Organization [facility] Address [address] [facility] [address] [place] [address] Phone Care Team Providers Name Role Phone Dhara Taylor DO Unavailable [facility] Unavailable [place] Unavailable MALVIN Turner Unavailable Unavailable Unavailable Unavailable Problems Name Dates Details Allergic state, sequela (T78.40XS, 909.9) Status: Active Altered mental status, unspecified altered mental status type (R41.82, 780.97) Status: Active BMI 28.0-28.9,adult (Z68.28, V85.24) Status: Active Body mass index 27.0-27.9, adult (Z68.27, V85.23) Status: Active Bronchitis (J40, 490) Status: Active Constipation, chronic (K59.09, 564.00) Status: Active Controlled diabetes mellitus (E11.9, 250.00) Status: Active Cough (R05, 786.2) Comments: not convinced it medication side effect yet-- bronchitis ? drainage?- will treat and see if 100% goes away vs if different cough lingers to determine whats going on Status: Active Essential hypertension (I10, 401.9) Status: [...] Active Schizophrenia (F20.9, 295.90) Comments: managed by [facility] Status: Active Smoker (F17.200, 305.1) Status: [...] Ordered:12-Aug-2018 Olga Seay Start : 12-Aug-2018 Active Cefdinir 300 MG Oral Capsule 1 (one) Capsule bid for 10 days Quantity: 20 {Capsule} Refills: 0 Ordered:05-Sep-2018 Sally Taylor DO, DO, Kathleen Start : 05-Sep-2018 Active [facility] Fluticasone Propionate 50 MCG/ACT Nasal Suspension 1 (one) [place] qd for 0 days Quantity: 1 {Container} [...] 0 days Quantity: 30 {Tablet} Refills: 3 Ordered:10-Sep-2018 Sally Taylor DO, DO, Kathleen Start : 10-Sep-2018 Active Glucophage 500 MG Oral Tablet 1 Tablet daily for 30 days Quantity: 60 {Tablet} Refills: 3 Ordered:23-Apr-2018 Sally Taylor DO, DO, Kathleen Start : 23-Apr-2018 Active HydroCHLOROthiazide 25 MG Oral Tablet 1 (one) Tablet Tablet qam for 0 days Quantity: 30 {Tablet} Refills: 3 Ordered:15-Aug-2018 Vera Turner LPN Start : 15-Aug-2018 Active Lisinopril 20 MG Oral Tablet 1 (one) Tablet bid for 30 days Quantity: 60 {Tablet} Refills: 3 Ordered:05-Sep-2018 Sally Taylor DO, DO, Kathleen Start : 05-Sep-2018 Active LORazepam 1 MG Oral Tablet 1 [...] Start : 18-Feb-2018 End : 28-Feb-2018 Inactive Cialis 10 MG Oral Tablet 1 [...] brain normalmental status back to baseline per electrotype servicer- Isaac Status: Resolved as of 21-May-2018 BMI 28.0-28.9,adult (Z68.28, V85.24) Status: Resolved as of 21-May-2018 BMI 29.0-29.9,adult (Z68.29, V85.25) Status: Inactive as of 02-May-2018 Cannabis abuse (F12.10, 305.20) Comments: per telephonic case manager knowledge -inactive Status: Inactive as [...] for Tdap vaccination (Renamed from Need for jigkmdazrr-lvvqirb-fuwbgwkra (Tdap) vaccine, adult/adolescent) (Z23, V06.1) Status: Resolved [...] V58.32) Comments: sutures placed in ER at [facility] Status: Inactive as of 29-Oct-2017 Weakness (R53.1, 780.79) Comments: is reducing depakote per self, sees psych Asteka Status: Inactive as of 10-Jan-2017 Procedures Procedure Dates Details Tonsillectomy Completed Date Value Details 09-Sep-2018 12 Lead Electrocardiogram Result: Comments: See Note; NOTES: [facility] Cardiovascular Services [address] [place] [address] 12 Lead EKG 09/05/18 1902 MR#: [id number] Acct: [id number] Name: AJIT GRIMALDO Rep # : [id number] : 1955 62 From: Moises Richard MD Attending Dr: Status: DEP ER Ordering Dr: Blayne Caldwell DO Date: 09/05/18 Location: ED Sex: M C Admitted: Test Reason : ANXIETY Blood Pressure : /* mmHG Vent. Rate : 075 BPM Atrial Rate : 075 BPM P-R Int : 164 ms QRS Dur : 084 ms QT Int : 380 ms P-R-T Axes : 075 060 069 degrees QTc Int : 424 ms Normal sinus rhythm Normal ECG Confirmed by MOISES RICHARD MD ([id number]), image editor DANNA LIZAMA ([id number]) on 09/09/2018 2:09:11 PM Referred By: Dhara Taylor Confirmed By:MOISES RICHARD MD 09/09/18 1409 Date Moises Richard MD CC: Dhara Taylor DO; Blayne Caldwlel DO Signed 06-Sep-2018 Discharge Instruction Result: Comments: See Note; NOTES: [facility] Medical Records Department [address] [place] [address] Discharge Instruction 09/06/18 1241 MR#: [id number] Acct: [id number] Name: Rolando GRIMALDO E Rep #: [id number] : 1955 62 From: Reji Lovell MD PCP: Dhara Taylor DO Status: DEP ER ED Disposition - Plan for ED Patient: Chief Complaint: Chest Other Instructions: ED Epigastric Pain UKO Prescriptions: Omeprazole Magnesium [Prilosec Otc] 20 mg PO BID #40 tablet.dr Referrals: Dhara Taylor, [Primary Care Provider] - What to do if you have Problems For any increased pain , shortness of breath, bleeding, nausea or vomiting, chest pain, or any unexpected problems, contact your Primary Care Provider. Call [facility] ([phone]) or report to the closest Emergency R oom. Call 911 if necessary. 09/06/18 1615 <Electronically signed by Reji Lovell MD> Date Reji Lovell MD Cosigner Signature (If In dicated): Date CC: Dhara Taylor DO 06-Sep-2018 Emergency Department Summary Result: Comments: See Note; NOTES: [facility] Medical Records Department [address] [place] [address] Emergency Department Summary 09/06/18 1238 MR#: [id number] Acct: [id number] Name: AJIT GRIMALDO Rep #: [id number] : 1955 62 From: Reji Lovell MD PCP: Dhara Taylor DO Status: DEP ER - ER Visit Summary Date of Service: 09/06/18 Chief Complaint: Chest pain History of Pre sent Illness: The patient is a 62 M who presents with chest pain. When I asked him what part of his chest is affected, he points to his epigastric region. He says his symptoms are worse with food and be tter with burping. He was seen here last night for the same thing and had a negative workup. He was discharged home. He is requesting an acids today specifically Prilosec. They have helped before. He de nies any other abdominal pain or GI symptoms. Denies any new chest pain or respiratory symptoms. Denies any history of blood clots or aortic problems. Denies fevers or recent illness. Physical Examinat ion: Afebrile and vital signs unremarkable except for a blood pressure of 174/68. Sitting comfortably. Alert and oriented. No acute distress. Skin appears normal in color without diaphoresis, jaundice, or pallor. Heart regular rate and rhythm. Lungs clear to auscultation bilaterally. Abdomen soft and nontender. No guarding or rebound. No distention. Moves all extremities. Pulses strong and equal. No e antony. Test Results: None indicated. I reviewed his labs from last night. Emergency Department Course and Treatment: Patient was treated with a GI cocktail. At his request we will prescribe Prilosec. D eclined any further testing or evaluation. He was advised to return for any new or worsening issues. Otherwise, follow-up with primary care. Treatment Plan: As above Disposition: Discharge Impression : 1. Epigastric pain This note was generated with Foodlve dictation software. It may contain incorrect words, spelling, and punctuation that were not noted in review of the chart prior to signing ED Disposition - Plan for ED Patient: Chief Complaint: Chest Other Referrals: Dhara Taylor, DO [Primary Care Provider] - What to do if you have Problems For any increased pain, shortness of breath , bleeding, nausea or vomiting, chest pain, or any unexpected problems, contact your Primary Care Provider. Call [facility] ([phone]) or report to the closest Emergency Room. Call 911 if himanshu zacarias. 09/06/18 9713 <Electronically signed by Reji Lovell MD> Date Reji Lovell MD Cosigner Signature (If Indicated): Date CC: Dhara Taylor DO 05-Sep-2018 Discharge Instruction Result: Comments: See Note; NOTES: [facility] Medical Records Department [address] [place] [address] Discharge Instruction 09/05/182028 MR#: [id number] Acct: [id number] Name: Rolando GRIMALDO Rep #: [id number] : 1955 62 From: Blayne Caldwell DO PCP: Dhara Taylor DO Status: REG ER ED Disposition - Plan for ED Patient: Chief Complaint: Anxiety Instructions: ED Stress React, ED GERD, ED Chest Pain Atypical Unkn Cause Referrals: Dhara Taylor DO [Primary Care Provider] - 3-5 Days What to do if you have Problems For any increased pain, shortness of breath, bleeding, naus ea or vomiting, chest pain, or any unexpected problems, contact your Primary Care Provider. Call [facility] ([phone]) or report to the closest Emergency Room. Call 911 if necessary. 2029 <Electronically signed by Blayne Caldwell DO> Date Blayne Caldwell DO Cosigner Signature (If Indicated): Date CC: Dhara Taylor DO 05-Sep-2018 Emergency Department Summary Result: Comments: See Note; NOTES: [facility] Medical Records Department [address] [place] [address] Emergency Department Summary 09/05/182023 MR#: [id number] Acct: [id number] Name: AJIT GRIMALDO Rep #: [id number] : 1955 62 From: Blayne Caldwell DO PCP: Dhara Taylor DO Status: REG ER - ER Visit Summary Date of Service: 09/05/18 Chief Complaint: [Chest pain] History of Pr esent Illness: The patient is a 62 M [presents the emergency department via EMS with complaint of chest pain that started about 40 minutes prior to coming in. Patient describes a sudden onset of sharp s tabbing pain in his epigastric region that lasted about 10 minutes and then resolved. Patient states that once EMS got there his pain had resolved and then he felt embarrassed about coming in. Patient s tates that it felt like a bubble in his chest that kind of came up and released and then his pain resolved. Patient became very anxious as he was having the discomfort. He denied any radiation of the pa in. He denied any shortness of breath. He denies any nausea or vomiting associated with it. Patient denied any diaphoresis. He had never had pain like this before. Patient denies any history of exertion al dyspnea. He is currently pain-free. Patient does have a history of CHF, COPD, TIAs, diabetes, and schizophrenia. Patient currently lives in a [facility] where they give him his medication daily there fore he has been compliant with all his meds. Patient is not suicidal or homicidal. Physical Examination: [HEENT-PERRLA, EOMI. Cranial nerves II through XII grossly intact. TMs clear. Mucous membranes moist. No adenopathy. Cardiovascular-regular rate and rhythm without murmur or ectopy Lungs-clear to auscultation, chest wall stable without crepitus or subcu emphysema Abdomen-normoactive bowel suma nds, soft, nontender, no rebound or rigidity, no peritoneal signs. Extremities- intact 4, normal range of motion, normal pulses, atraumatic] Test Results: [EKG obtained on arrival showed a sinus rhythm with a ventricular rate of 75 bpm with no acute ST segment changes. CBC with differential was normal. Chemistries were normal. Troponin was less than 0.015. Valproic acid was 58. Chest x-ray unremarkab le.] Emergency Department Course and Treatment: [Patient remained pain-free in the emergency department. He had received aspirin.] Treatment Plan: [Patient advised to follow-up with his primary care rolando gunderson within next 3-5 days. At this point I do not believe his chest pain is cardiac is it is extremely atypical. Patient's heart score is a 2.] I suspect likely GI cause for his symptoms. Dispositi on: [Discharged to home in stable condition Impression: [Chest pain-etiology uncertain] This note was generated with Audionamixation software. It may contain incorrect words, spelling, and punctuat ion that were not noted in review of the chart prior to signing ED Disposition - Plan for ED Patient: Chief Complaint: Anxiety Referrals: Dhara Taylor DO [Primary Care Provider] - What to do i f you have Problems For any increased pain, shortness of breath, bleeding, nausea or vomiting, chest pain, or any unexpected problems, contact your Primary Care Provider. Call [facility] ) or report to the closest Emergency Room. Call 911 if necessary. 09/05/182028 <Electronically signed by Blayne Caldwell DO> Date Loretta Caldwell DO Cosigner Signature (If Indicated): Date CC: Dhara Taylor DO 05-Sep-2018 Chest 1 View (Portable) Result: Comments: See Note; NOTES: [facility] Imaging Services [address] [place] [address] Chest 1 View (Portable) MR#: [id number] Acct: [id number] Name: AJIT GRIMALDO Rep #: [id number] : 1955 M 62 From: Vladimir Pandya MD PCP: Dhara Taylor DO Status: REG ER Study: Chest 1 View (Portable) Date of Exam: 09/05/18 Exam# [id number] Ordering Dr: Blayne Caldwell DO STUDY: X-RAY C HEST REASON FOR EXAM: Male, 62 years old. Chest pain and TECHNIQUE: Frontal view of the chest COMPARISON: 05/08/2018 FINDINGS: The lungs are clear. There are no pl eural effusions. There is no pneumothorax. The heart is normal in size. Again noted are old, healed right-sided rib fractures. RAD/Chest 1 Vie w (Portable) IMPRESSION: No acute thoracic pathology. Electronically Signed: Vladimir Pandya, at 19:14 EST Tel , Service support , CC: Joyce Taylor DO; Blayne Caldwell DO Disease Education Specialist: Signed 08-May-2018 History and Physical Exam Result: Comments: See Note; NOTES: [facility] Medical Records Department [address] [place] [address] History and Physical 05/08/182104 MR#: [id number] Acct: [id number] Name: CHARISSA GRIMALDO E Rep #: [id number] : 1955 62 From: Kristal Larsen PCP: [...] diabetes mellitus Status: Chronic Qualifiers: Diabetes mellitus long term care phlebotomist insulin use: without long term care phlebotomist use Diabetes mellitus complication statu s: without complication Qualified Code(s): E11.9 - Type 2 diabetes mellitus without complications (6) Bilateral leg edema Status: Chronic History of Present Illness Date of Admission: 05/08/18 Chief C omplaint: Worsened confusion The patient is a 62 y/o M, Living [place] w/ PMHx: Schizophrenia w/ Prior Suicide Attempts, [...] be performed who now re-presents to the [facility] ED on 05/08/18 with confusion and noted aud itory hallucinations with [facility] confirmed taking his schizophrenia medications, failure to understand how to perform basic tasks he normally performs over the last 48 hours with PCP and [facility] discussion with patient and now willingness to have MRI performed. [facility] notes that this is very different from [...] Anxiety, Depression, Prior suicide attempt, Schizophrenia Lives: [place] Smoking Status: Current every day smoker Tobacco [...] is a 62 y/o M, Living in [place] w/ PMHx: Schizophrenia w/ Prior Suicide Attempts, Tobacco use, Chronic COPD, Diabet es mellitus type II, CHF Unclear Type, PVD w/ chronic BL LE lymphedema, LLE Venous Stasis Ulcer following [facility] who presents to the [facility] ED on 05/08/18 with confusion and noted auditory halluci nations with [facility] confirmed taking his schizophrenia medications, failure to understand how to perform basic tasks he normally performs over the last 48 hours with PCP and [facility] discussion wi th patient and now willingness [...] Lovenox. Code Visit OBSV E AND M: 34118 Initial observation care L3 05/08/182139 <Electronically signed by Kristal Larsen > Date Kristal Larsen Cosigner Signature: Date (if applicable) CC: Kristal Larsen; Dhara Taylor DO Signed 08-May-2018 Emergency Department Summary Result: Comments: See Note; NOTES: [facility] Medical Records Department [address] [place] [address] Emergency Department Summary 05/08/18 1748 MR#: [id number] Acct: [id number] Name: AJIT GRIMALDO Rep #: [id number] : 1955 62 From: Petrona Rios MD PCP: Dhara Taylor DO Status: REG ER - ER Visit Summary Date of Service: 05/08/18 Chief Complaint: Confusion History of P resent Illness: The patient is a 62 M presenting with intermittent confusion. His staff member from his [facility] states that he has been confused intermittently since April 16. He was admitted at that time for TIA workup. During that admission patient refused MRI. He was seen again in the ED on May 02 for continued intermittent confusion. He refused MRI during the ED stay as well. Today [facility] d iscussed with his primary care physician Dr. Taylor who feels the patient needs an MRI according to [facility] staff and the patient. The patient is now agreeable to MRI. He was advised to come to the E D for further evaluation. [facility] staff states that he has been having [...] status, TIA This note was generated with Foodlve dictation software. It may contain inc orrect words, spelling, and punctuation that were not noted in review of the chart prior to signing ED Disposition - Plan for ED Patient: Chief Complaint: Confusion Referrals: Dhara Taylor, DO [Pr iml[place] Care Provider] - What to do if you have Problems For any increased pain, shortness of breath, bleeding, nausea or vomiting, chest pain, or any unexpected problems, contact your Primary Care Pr ovider. Call [facility] ([phone]) or report to the closest Emergency Room. Call 911 if necessary. 05/08/184 <Electronically signed by Petrona Rios MD> Date _ Petrona Rios MD Cosigner Signature (If Indicated): Date CC: Dhara Claudia RESENDEZ 08-May-2018 Brain/Head without Contrast Result: Comments: See Note; NOTES: [facility] Imaging Services [address] [place] [address] Brain/Head without Contrast MR#: [id number] Acct: [id number] Name: AJIT GRIMALDO Rep #: [id number] : 1955 M 62 From: Lorne Augustine MD PCP: Dhara Taylor DO Status: REG ER Study: Brain/Head without Contrast Date of Exam: 05/08/18 Exam# [id number] Ordering Dr: Petrona Rios MD UDY: CT [...] CC: Petrona Rios MD; Dhara Taylor DO Disease Education Specialist: Signed 08-May-2018 Chest 1 View Result: Comments: See Note; NOTES: [facility] Imaging Services [address] [place] [address] Chest 1 View MR#: [id number] Acct: [id number] Name: AJIT GRIMALDO Rep #: [id number] : M 62 From: Lorne Augustine MD PCP: Dhara Taylor DO Status: REG ER Study: Chest 1 View Date of Exam: 05/08/18 Exam# [id number] Ordering Dr: Petrona Rios MD STUDY: X-RAY [...] CC: Petrona Rios MD; Dhara Taylor DO Disease Education Specialist: Signed 06-May-2018 12 Lead Electrocardiogram Result: Comments: See Note; NOTES: [facility] Cardiovascular Services [address] [place] [address] 12 Lead EKG 05/02/18 1555 MR#: [id number] Acct: [id number] Name: AJIT GRIMALDO Rep # : [id number] : 1955 62 From: Ajit Benavidez MD [...] Normal ECG Confirmed by PRAMOD ALSTON, AJIT ([id number]), image editor DANNA LIZAMA (56) on 05/06/2018 2:29:59 PM Referred By: VAISHALI Confirmed By:AJIT BENAVIDEZ MD 05/06/18 1430 Date Ajit Benavidez MD CC: Gabriela Barrett MD; Dhara Taylor DO Signed 03-May-2018 Emergency Department Summary Result: Comments: See Note; NOTES: [facility] Medical Records Department [address] [place] [address] Emergency Department Summary 05/02/18 1648 MR#: [id number] Acct: [id number] Name: AJIT GRIMALDO Rep #: [id number] : 1955 62 From: Gabriela Barrett MD [...] presentation is not typical of his psychosis. [facility] staff member describes confusion with normal tasks and he had slurred speech earlier. Patient is cu rrently confused, he does not know the month or president. He talks about prior alien invasions and encounters. Staff member states that he thought there was someone else sitting in the room with them gato valladares shortly before my evaluation. Past history significant [...] the week. Patient was monitored at the [facility] o rick the weekend. I did speak with Dr. Carter to update her on the patient's findings and plan as the patient was sent in by Dr. Taylor. Treatment Plan: [] Disposition: Discharge Impression: 1. Repor melchor slurred speech, resolved 2. Schizoaffective disorder This note was generated with Foodlve dictation software. It may contain incorrect words, [...] problems, contact your Primary Care Provider. Call [facility] ([phone]) or report to the closest Emergency Room. Call 911 if necessary. 05/03 0028 <Electronically signed by Gabriela Barrett MD> Date Gabriela Barrett MD Cosigner Signature (If Indicated): Date ____ ____ CC: Dhara Taylor DO 02-May-2018 Discharge Instruction Result: Comments: See Note; NOTES: [facility] Medical Records Department [address] [facility] [place] [address] Discharge Instruction 05/02/182233 MR#: [id number] Acct: [id number] Name: Rolando GRIMALDO Rep #: [id number] : 1955 62 From: Gabriela Barrett MD [...] Result: Comments: See Note; NOTES: [facility] Imaging Services [address] [place] [address] Brain/Head without Contrast MR#: [id number] Acct: [id number] Name: AJIT GRIMALDO Rep #: [id number] : 1955 M 62 From: Edenilson eHrnandez MD PCP: Dhara Taylor DO Status: [facility] Study: Brain/Head without Contrast Date of Exam: 05/02/18 Exam# [id number] Ordering Dr: Gabriela Barrett MD [facility] DY: CT BRAIN WITHOUT CONTRAST REASON FOR [...] CC: Gabriela Barrett MD; Dhara Taylor DO Disease Education Specialist: Signed 16-Apr-2018 Brain/Head without Contrast Result: Comments: See Note; NOTES: [facility] Imaging Services [address] [place] [address] Brain/Head without Contrast MR#: [id number] Acct: [id number] Name: AJIT GRIMALDO Rep #: [id number] : 1955 M 62 From: Jackson Conde DO PCP: Dhara Taylor DO Status: REG ER Study: Brain/Head without Contrast Date of Exam: 04/16/18 Exam# [id number] Ordering Dr: Petrona Rios MD STUD Y: [...] Jackson Conde DO at 17:16 EDT Tel [phone], Service support , CC: Petrona Rios MD; Dhara Taylor DO Disease Education Specialist: Signed 16-Apr-2018 Chest 1 View Result: Comments: See Note; NOTES: [facility] Imaging Services [address] [place] [address] Chest 1 View MR#: [id number] Acct: [id number] Name: AJIT GRIMALDO Rep #: [id number] : M 62 From: Jackson Conde DO PCP: Dhara Taylor DO Status: PRE ER Study: Chest 1 View Date of Exam: 04/16/18 Exam# [id number] Ordering Dr: Petrona Rios MD STUDY: X-RAY [...] of the upper abdomen. ORDER # : [id number] RAD/Chest 1 View IMPRESSION: No acute cardiopulmonary disease or interval change. Electronically Signed: Jackson Conde DO at 16:55 EDT Tel [phone], Service support [phone], CC: Petrona Rios MD; Dhara Taylor DO Disease Education Specialist: Signed 16-Apr-2018 Emergency Department Summary Result: Comments: See Note; NOTES: [facility] Medical Records Department [address] [place] [address] Emergency Department Summary 04/16/18 0514 MR#: [id number] Acct: [id number] Name: AJIT GRIMALDO Rep #: [id number] : 1955 62 From: Quentin Winkler MD PCP: Dhara Taylor DO Status: DEP ER - ER Visit Summary Date of Service: 04/16/18 Chief Complaint: Left arm pain History o f Present Illness: The patient is a 62 M presenting for evaluation secondary left arm pain. Patient has a underlying history of living in a [facility] and has schizophrenia that is reasonably controlled [...] approved by a physician and his nursing cutting room supervisor and was unable to take any sort [...] arm pain This note was generated with Foodlve dictation software. It may contain incorrect words, [...] your Primary Care Provider. Call [facility] ([phone]) or report to the closest Emergency Room. Call 911 if necessary. 04/16/18 0717 <Electronically signed by Quentin Winkler MD> Date Quentin Winkelr MD Cosigner Signature (If Indicated): Date CC: Dhara Taylor DO 21-Mar-2018 Wound Ctr History AND Physical Result: Comments: See Note; NOTES: [facility] [address] [place] [address] Wound Ctr History AND Physical 03/21/182028 MR#: [id number] Acct: [id number] Name: AJIT RAMSEY Rep #: [id number] : 1955 62 From: Samantha Manuel DO [...] Chronic Current Visit: Yes Qualifiers: Diabetes mellitus long term care phlebotomist insulin use: without long term care phlebotomist use Diabetes mellitus complication stat us: without [...] odor or drainage. He lives in a [facility] and cares for himself with supervision from staff. He is accompanied today by his rn case manager hospice, Isaac. Past Medical History Charissa wong Medical [...] 09/23/16 - Family History Maternal Heart Disease Brianna l Diabetes Sibling Hypertension Lives: - - [facility] Smoking Status: Current every day smoker Tobacco [...] Date Recorded By Document 03/21/18 13:53 DL [id number] 8 14:14 DL Wound Center Nurse 1 [...] Date Recorded By Document 03/21/18 15:45 DV [id number] 03/21/18 15:51 DV Psych/Mental Status: Flat Affect Debridement Note Post-Debridement Measurements/Treatment WC - Nurse 2 - General Ulcer CM Notes Start: 03/21/18 13:50 Freq: Status: Active Protocol: Activity Ty pe Activity Date Activity User E-Sign Co-Sign Detail Recorded Client Recorded Date Recorded By Document 03/21/18 15:45 DV [id number] 03/21/18 15:51 DV Wound Center Nurse 2 [...] Result: Comments: See Note; NOTES: [facility] Medical Records Department [address] [place] [address] Emergency Department Summary 11/26/17 1320 MR#: [id number] Acct: [id number] Name: AJIT GRIMALDO Rep #: [id number] : 1955 62 From: Blayne Caldwell DO [...] tremity cellulitis] This note was generated with Food[employer] dictation software. It may contain incorrect words, [...] problems, contact your Primary Care Provider. Call [facility] ([phone]) or report to the closest Emergency Room. Call 911 if necess krish. 11/30/17 6393 <Electronically signed by Blayne Caldwell DO> Date Blayne Caldwell DO Cosigner Signature (If Indicated): Date _ CC: Dhara Taylor DO 26-Nov-2017 Venous Duplex Lower Extremity Result: Comments: See Note; NOTES: [facility] Cardiovascular Services [address] [place] [address] Venous Duplex US - [place] Extrem 11/26/17 1349 MR#: [id number] Acct: [id number] Name: AJIT GRIMALDO Rep #: [id number] : 1955 62 From: Roger Carney MD Attending Dr: Status: DEP ER Ordering Dr: Blanye Caldwell DO Date: 11/26/17 Location: ED Sex: [...] Ordering Physician: Blayne Caldwell Performed By: Sukhjinder Rodriguez, RVT 11/26/17 1522 Date Roger Carney MD CC: Dhara Taylor DO; Blayne Caldwell DO Date Dictated: 1349 Date Transcribed: 11/26/17 1522 Disease Education Specialist: Signed 26-Nov-2017 Discharge Instruction Result: Comments: See Note; NOTES: [facility] Medical Records Department [address] [place] [address] Discharge Instruction 11/26/17 1435 MR#: [id number] Acct: [id number] Name: Rolando GRIMALDO Rep #: [id number] : 1955 62 From: Blayne Caldwell DO PCP: Dhara Taylor DO Status: [facility] ER ED Disposition - Plan for ED [...] your Primary Care Provider. Call [facility] ([phone]) or report to the closest Emergency R oom. Call 911 if necessary. 11/26/17 1436 <Electronically signed by Blayne Caldwell DO> Date Blayne Caldwell DO Cosigner Signature (If Taylor cated): Date CC: Dhara Taylor DO 24-Aug-2017 Emergency Department Summary Result: Comments: See Note; NOTES: [facility] Medical Records Department [address] [place] [address] Emergency Department Summary 08/24/17 1433 MR#: [id number] Acct: [id number] Name: AJIT GRIMALDO Rep #: [id number] : 1955 61 From: Hill Carrington DO PCP: Dhara Taylor DO Status: [facility] ER - ER Visit Summary Date of [...] process. He reports he lives in a [facility] and is receiving scheduled Risperdal and other [...] schizoaffective disorder This note was generated with Food[employer] dictation software. It may contain incorrect words, [...] your Primary Care Provider. Call [facility] ([phone]) or report to the closest Emergency Room. Call 911 if necessary. 08/24/17 1539 <Electronically signed by Hill Carrington DO> Date Hill Carrington DO Cosigner Signature (If Indicated): Date CC: Dhara Taylor DO 03-Apr-2017 Emergency Department Summary Result: Comments: See Note; NOTES: [facility] Medical Records Department [address] [place] [address] Emergency Department Summary MR#: [id number] Acct: [id number] Name: AJIT GRIMALDO Obed Rep #: [id number] : 1955 61 From: Wero Keating MD PCP: Dhara Taylor DO Status: DEP ER DATE OF SERVICE: 03/30/2017 CHIEF COMPLAINT: [...] Haldol and Cogentin, his night dose. Crisis in store marketing representative came over, fully evaluated the patient and is having him transfe rred to [place], accepted by Dr. Huertas, appropriate emergency application, paperwork, labs and reports were given. The patient is stable for transfer. DIAGNOSIS: Acute paranoia. Obed Recinos C: Dhara Taylor DO T: [facility] JOB: [id number] 04/03/17 0806 <Electronically signed by Wero Keating MD> Date Wero Keating MD Cosigner Signature (If Indicated): Date CC: Dharaga Taylor DO Date Dictated: 03/30/172204 Date Transcribed: 03/30/172204 Disease Education Specialist: Signed 02-Apr-2017 12 Lead Electrocardiogram Result: Comments: See Note; NOTES: [facility] Cardiovascular Services [address] [place] [address] 12 Lead EKG 03/30/172007 MR#: [id number] Acct: [id number] Name: AJIT GRIMALDO Obed Rep # : [id number] : 1955 61 From: Moises Richard MD [...] ECG Confirmed by MOISES RICHARD MD ([id number]), image editor DANNA LIZAMA (56) on 04/02/2017 2:26:02 PM Referred By: [facility] Confirmed By:MOISES RICHARD MD 04/02/17 1426 Date Moises Abdul CC: Dhara Taylor DO Date Dictated: 03/30/172007 Date Transcribed: 03/30/172007 Disease Education Specialist: Signed 17-Oct-2016 Emergency Department Summary Result: Comments: See Note; NOTES: [facility] Medical Records Department [address] [place] [address] Emergency Department Summary MR#: [id number] Acct: [id number] Name: AJIT GRIMALDO Rep #: [id number] : 1955 60 From: Prakash Loza MD PCP: Dhara Taylor DO Status: [facility] DATE OF SERVICE: 09/25/2016 METHOD OF ARRIVAL: [...] auditory or visual hallucinations. 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 Insight and judgment is poor. The [...] Paranoid delusions. Prakash Loza MD C C: [facility] T: [facility] JOB: [id number] 10/17/16 1719 <Electronically signed by Prakash Loza MD> Date Prakash Loza MD Cosigner Signature (If Indicated): Date __ CC: Dhara Taylor DO Date Dictated: 10/09/16615 Date Transcribed: 10/09/16615 Disease Education Specialist: Signed 27-Sep-2016 12 Lead Electrocardiogram Result: Comments: See Note; NOTES: [facility] Cardiovascular Services [address] [place] [address] 12 Lead EKG 09/25/162217 MR#: [id number] Acct: [id number] Name: AJIT GRIMALDO Rep # : [id number] : 1955 60 From: Reji Hill MD Attending Dr: Status: DEP ER Ordering Dr: Gabriela Barrett MD Date: 09/25/16 Location: ED Sex: M C Admitted: Test Reason : [facility] Blood Pressure : / mmHG Vent. Rate : 086 BPM Atrial Rate : 086 BPM P-R Int : 144 ms QRS Dur : 068 ms QT Int : 364 ms P-R-T Axes : 088 071 066 degrees QTc Int : 435 ms Sinus rhythm with marked sinus arrhythmia Nonspe cific ST abnormality Abnormal ECG Confirmed by REJI HILL ([id number]), image editor DANNA LIZAMA (56) on 09/27/2016 12:52:12 PM Referred By: [facility] Confirmed By:REJI HILL 09/27/16 1252 Date Reji Hill MD CC: Dhara Taylor DO Date Dictated: 09/25/162217 Date Transcribed: 09/25/162217 Disease Education Specialist: Signed 25-Sep-2016 12 Lead Electrocardiogram Result: Comments: See Note; NOTES: [facility] Cardiovascular Services [address] [place] [address] 12 Lead EKG 09/23/16 0143 MR#: [id number] Acct: [id number] Name: AJIT GRIMALDO Rep # : [id number] : 1955 60 From: Ajit Benavidez MD [...] abnormality Confirmed by PRAMOD ALSTON, AJIT ([id number]), image editor DANNA LIZAMA (56) on 09/25/2016 10:18:06 AM Referred By: DR BUSTOS Confirmed By:AJIT BENAVIDEZ MD 09/25/16 1018 Date ___ Ajit Benavidez MD CC: Dhara Taylor DO Date Dictated: 09/23/16142 Date Transcribed: 09/23/16142 Disease Education Specialist: Signed 23-Sep-2016 Emergency Department Summary Result: Comments: See Note; NOTES: [facility] Medical Records Department [address] [place] [address] Emergency Department Summary MR#: [id number] Acct: [id number] Name: AJIT GRIMALDO Rep #: [id number] : 1955 60 From: Quentin Bustos MD [...] Discharged. Quentin Bustos MD T: [facility] JOB: [id number] 09/23/16 0539 <Electronically signed by Quentin Bustos MD> Date Quentin Gomez Signature (If Indicated): Date CC: Dhara Taylor DO Date Dictated: 09/23/16238 Date Transcribed: 09/23/16238 Disease Education Specialist: Signed 23-Sep-2016 Discharge Instruction Result: Comments: See Note; NOTES: [facility] Medical Records Department [address] [place] [address] Discharge Instruction 09/23/16233 MR#: [id number] Acct: [id number] Name: Rolando GRIMALDO Rep #: [id number] : 1955 60 From: Quentin Bustos MD [...] your Primary Care Provider. Call [facility] ([phone]) or report to the closest Emergency Room. Call 911 if necessary. 09/23/16 0308 <Electronically signed by Quentin Bustos MD> Date Quentin Gomez Signature (If Indicated): Da te CC: Dhara Taylor DO 11-May-2016 Emergency Department Summary Result: Comments: See Note; NOTES: [facility] Medical Records Department [address] [place] [address] Emergency Department Summary MR#: [id number] Acct: [id number] Name: AJIT GRIMALDO Rep #: [id number] : 1955 60 From: Fina Barry MD PCP: Dhara Taylor DO Status: DEP ER DATE OF SERVICE: 05/09/2016 CHIEF COMPLAINT: Depressed mental status. HISTORY OF PRESENT ILLNESS: This is a 60-year-old male with a history of schizophrenia and other mental health issues. He has a social professionals with him today, who typically sees him [...] Mental health evaluation. Fina valdovinos MD T: [facility] JOB: [id number] 05/11/16 0946 <Electronically signed by Fina Barry MD> Date Fina Barry MD Cosigner Signature (If Indicated): Date CC: Dhara Taylor DO Date Dictated: 05/09/16 1140 Date Transcribed: 05/09/16 1140 Disease Education Specialist: Signed 09-May-2016 Discharge Instruction Result: Comments: See Note; NOTES: [facility] Medical Records Department [address] [place] [address] Discharge Instruction 05/09/16 1130 MR#: [id number] Acct: [id number] Name: AJIT GRIMALDO Rep #: [id number] : 1955 60 From: Fina Barry MD [...] problems, contact your doctor. Call [facility] ([phone]) or report to the closest Emergency Room. Call 911 if necessary. 05/09/16 1131 &am p;#60;Electronically signed by Fina Barry MD> Date Fina Barry MD Cosigner Signature (If Indicated): Date CC: Dhara Taylor DO 05-Aug-2015 EKG ([id number]) Comments: nsr no acutechg Result: [MEASUREMENTS ANALYSIS] Date of Test: 08/05/2015 11:03:50; Heart Rate: 63; MO Interval: 158; QRS: 90; QT Interval: 382; Corrected QT Interval (QTc): 387; P Wave [place]: 65; QRS [place]: 69; T Wave [place]: 90; Blood Pressure: 158/94 [ECG DIAGNOSTIC STATEMENTS] [...] Active Vital Signs Date Test Result Details :37 Temperature 97.3 f Comments: Method: Temporal Pulse 95 /min Comments: Pattern: Regular Respiration Rate 18 /min Comments: Pattern: Unlabored O2 SAT 97 % Comments: Room air BP Systolic 143 mm[Hg] Comments: Patient Position: Sitting; Cuff Location: Left Arm; Cuff Size: Thigh BP Diastolic 78 mm[Hg] Comments: Patient Position: Sitting; Cuff Location: Left Arm; Cuff Size: Thigh Weight 202 lb Height 70 in Body Mass Index Calculated 28.98 kg/m2 Body Surface Area Calculated 2.1 m2 :51 Pulse 83 /min Comments: Pattern: Regular [...] kg/m2 Body Surface Area Calculated 2.11 m2 63-Der-114042:21 Comments: Rech 162/86 Temperature 97.3 f Pulse [...] kg/m2 Body Surface Area Calculated 2.1 m2 3-Uta-537095:45 Pulse 83 /min Comments: Pattern: Regular Respiration [...] kg/m2 Body Surface Area Calculated 2.1 m2 82-Cui-578963:58 Temperature 96.8 f Comments: Method: Temporal Pulse [...] kg/m2 Body Surface Area Calculated 2.09 m2 56-Xho-293142:50 Pulse 85 /min Comments: Pattern: Regular Respiration [...] kg/m2 Body Surface Area Calculated 1.99 m2 73-Peu-700055:09 Temperature 97.1 f Comments: Method: Temporal Pulse [...] 1.99 m2 Results Date Description Value Details 76-Jgx-219976:45 Basic Metabolic Profile (BMP) Comments: [facility] [address] [place], [place], [id number] GAP 8 (Normal) Range: 5-15 CO2 28.0 mmol/L (Normal) Range: 21.0-32.0 CL 99 mmol/L (Normal) Range: 98-107 K 3.9 mmol/L (Normal) Range: 3.5-5.1 NA 135 mmol/L (Abnormal) Range: 136-145 CA 8.3 mg/dL (Abnormal) Range: 8.5-10.1 BUN/CRE 16.0 {RATIO} (Normal) Range: 10-20 Estimated CRCL 75.56 ml/min (Normal) EST GFR - AA 91 mL/min (Normal) Comments: GFR Calc EST GFR 75 mL/min (Normal) Comments: Non- GFR Calc CREAT,SERUM 1.06 mg/dL (Normal) Range: 0.70-1.30 Comments: The validity of the calculated GFR AND GFRAA in patients over70 years has not been determined. Clinical correlation isessential. BUN 17 mg/dL (Normal) Range: 7-18 GLU 99 mg/dL (Normal) Range: 74-106 Comments: Please note revised GLUCOSE reference range pkwagxwya83/02/2018. 12-Jgk-371670:45 CBC W/Diff, Automated Comments: [facility] [address] [place], [place], [id number] Absolute Lymph 1.80 {X10_3/ul} (Normal) Range: 0.83-4.51 Absolute Neut 4.4 {X10_3/uL} (Normal) Range: 2.0-7.7 IM GRAN % 0.300 % (Normal) Range: 0.0-0.9 Comments: IG% - Immature Granulocytes (promyelocytes, myelocytes andmetamyelocytes) > 1% indicates that a LEFT SHIFT is Present. BASO% 0.7 % (Normal) Range: 0-1 EO% 3.4 % (Normal) Range: 0-5 MONO% 10.5 % (Abnormal) Range: 0-10 LY% 24.7 % (Normal) Range: 19-41 NEUT% 60.4 % (Normal) Range: 47-70 MPV 10.2 fL (Normal) Range: 6.2-12.0 PLT 210 K/mm3 (Normal) Range: 150-450 RDW SD 40.9 fL (Normal) Range: 35.1-43.9 RDW CV 12.7 % (Normal) Range: 11.6-14.6 MCHC 33.6 {g/gl} (Normal) Range: 32-36 MCH 29.5 pg (Normal) Range: 27.0-32.0 MCV 87.8 fL (Normal) Range: 80-94 HCT 36.6 % (Abnormal) Range: 40-54 HGB 12.3 g/dL (Abnormal) Range: 13.0-16.5 RBC 4.17 {M/mm3} (Abnormal) Range: 4.6-6.2 WBC 7.3 K/mm3 (Normal) Range: 4.4-11.0 33-Mmm-601699:45 Troponin-I Comments: [facility] [address] [place], [place], [phone] TROPONIN-I < 0.015 ng/mL (Normal) Comments: TROPONIN-I EXPECTED VALUES <0.045 Negative 0.045 - 0.590 Consistent with Cardiac Damage > OR = 0.600 Critical Value Not every elevated troponin is indicative of NJ. T hesevalues should be used with clinical judgement in examiningthe patient's clinical picture for diagnosis. To establisha diagnosis of NJ versus myocardial injury, there must be ademonstrated rise and/ or fall in the troponin values, inaddition to ischemic symptoms, EKG changes, new regionalwall motion abnormality, and/or angiographical evidence. PLEASE NOTE: REFERENCE RANGES EDITED 02/17/1805-Sep-201810-Mvf-533074:45 Valproic Acid (Depakene) Level Comments: [facility] [address] [place], [id number] VALPROIC ACID 58 ug/mL (Normal) Range: 50-100 79-Gja-338453:30 Basic Metabolic Profile (BMP) Comments: [facility] [address] [place], [address] GAP 7 (Normal) Range: 5-15 CO2 31.0 mmol/L (Normal) Range: 21.0-32.0 CL 98 mmol/L (Normal) Range: 98-107 K 4.4 mmol/L (Normal) Range: 3.5-5.1 NA 136 mmol/L (Normal) Range: 136-145 CA 8.9 mg/dL (Normal) Range: 8.5-10.1 BUN/CRE 16.1 {RATIO} (Normal) Range: 10-20 EST GFR - AA 86 mL/min (Normal) Comments: GFR Calc EST GFR 71 mL/min (Normal) Comments: Non- GFR Calc CREAT,SERUM 1.12 mg/dL (Normal) Range: 0.70-1.30 Comments: The validity of the calculated GFR AND GFRAA in patients over70 years has not been determined. Clinical correlation isessential. BUN 18 mg/dL (Normal) Range: 7-18 GLU 100 mg/dL (Normal) Range: 74-106 Comments: Fasting Glucose result from 100 to 125 mg/dLsuggests IMPAIRED HOMEOSTASIS per A.D.A. criteria.Please note revised GLUCOSE reference range cuxhgypxt69/02/2018. 24-Lmh-533880:21 Alanine Aminotransferas (SGPT) Comments: [facility] [address] [place], [address] ALT 14 U/L (Abnormal) Range: 16-61 89-Kif-222208:21 Ammonia Comments: [facility] [address] [place], [id number] AMMONIA 12.0 umol/L (Normal) Range: 11-32 67-Kda-820801:21 AST(SGOT) Comments: [facility] [address] [place], [address] AST 19 U/L (Normal) Range: 15-37 96-Bml-488730:21 Platelet Count Comments: [facility] [address] [place], [address] PLT 182 K/mm3 (Normal) Range: 150-450 21-Tvk-655627:21 Prolactin Comments: [facility] [address] [place], [address] PROLACTIN 20.8 ng/mL (Normal) Comments: NORMAL REFERENCE RANGES FEMALE NON- 2.2 - 30.3 ng/mL 8.1 - 347.6 ng/mL POST-MENOPAUSAL 0.7 - 3 1.5 ng/mL MALE 2.5 - 17.4 ng/mLNEW TEST METHOD AND REFERENCE RANGES FEBRUARY 25, 201223-Jun-201866-Wuq-182281:21 Valproic Acid (Depakene) Level Comments: [facility] [address] [place], [address] VALPROIC ACID 87 ug/mL (Normal) Range: 50-100 85-Rot-362624:10 Microscopic Examination Comments: PATIENT WAS FASTINGPERFORMED BY: [facility] [id number] Bacteria None seen (Normal) Mucus Threads Present (Normal) Epithelial Cells (non renal) None seen {/hpf} (Normal) Range: 0 - 10 RBC 0-2 {/hpf} (Normal) Range: 0 - 2 WBC 0-5 {/hpf} (Normal) Range: 0 - 5 95-Arp-976629:10 TSH (66610) Comments: PATIENT WAS FASTINGPERFORMED BY: [employer] [facility] [id number] TSH 3.840 {uIU/mL} (Normal) Range: 0.450-4.500 13-Rcp-350704:10 URINALYSIS, W/ MICRO (44579) Comments: PATIENT WAS FASTINGPERFORMED BY: [employer] [facility] [id number] Microscopic Examination See below: (Normal) Comments: Microscopic was indicated and was performed. Microscopic Examination MICRON (Normal) Comments: Microscopic follows if indicated. Nitrite, Urine Negative (Normal) Urobilinogen,Semi-Qn 0.2 mg/dL (Normal) Range: 0.2-1.0 Bilirubin Negative (Normal) Occult Blood Negative (Normal) Ketones Negative (Normal) Glucose Negative (Normal) Protein Negative (Normal) WBC Esterase Negative (Normal) Appearance Clear (Normal) Urine-Color Yellow (Normal) pH 7.0 (Normal) Range: 5.0-7.5 Specific [place] 1.017 (Normal) Range: 1.005-1.030 51-Jcb-615344:10 MICROALBUMIN: CREATININE RATIO Comments: PATIENT WAS FASTINGPERFORMED BY: [employer] Geexck9140 [facility] [id number] (66561) AND (45874) Alb/Creat Ratio 56.7 {mg/g_creat} (Abnormal) Range: 0.0-30.0 Albumin, Urine 51.0 ug/mL (Normal) Creatinine, Urine 90.0 mg/dL (Normal) 99-Swy-567748:10 LIPID PANEL (18020) Comments: PATIENT WAS FASTINGPERFORMED BY: [employer] Qpoazk7532 [facility] [id number] LDL/HDL Ratio 1.5 {ratio} (Normal) Range: 0.0-3.6 [...] (Normal) Range: 100-199 :30 HgA1C , Office (41292) HgA1C , Office 5.8 % (Normal) Range: 4.6 - 7.1 :30 Blood Glucose , Office (10167) Blood Glucose , Office 123 (Normal) 79-Who-869271:54 Valproic Acid (24115) Comments: fax results [phone]; PATIENT NOT FASTINGPERFORMED BY: Adan Dquytd5181 [facility] [id number] Valproic Acid (Depakote)(R),S 67 ug/mL (Normal) Range: 50-100 Comments: Detection Limit = 4 <4 indicates None Detected . Toxicity may occur at levels of 100-500. Measurements of free unbound valproic acid may improve the assess- ment of clinical response. 07-Yor-239050:54 CBC WITH MANUAL DIFF Comments: fax results [phone]; PATIENT NOT FASTINGPERFORMED BY: [employer] [facility] [id number] Information: NURSE DRAW (28744) Immature Grans (Abs) 0.0 {x10E3/uL} (Normal) Range: [...] 4.14-5.80 WBC 7.1 {x10E3/uL} (Normal) Range: 3.4-10.8 95-Ewa-006481:54 Metabolic Panel, Comprehensive Comments: fax results [phone]; PATIENT NOT FASTINGPERFORMED BY: Adan Rmllfs3388 [facility] [id number] (68402) ALT (SGPT) 7 [iU]/L (Normal) Range: 0-44 [...] 8-27 Glucose 107 mg/dL (Abnormal) Range: 65-99 88-Cha-428657:54 AMMONIA (23304) Comments: fax results [phone]; PATIENT NOT FASTINGPERFORMED BY: [employer] Kmnxyt7517 [facility] [id number] Ammonia, Plasma 53 ug/dL (Normal) Range: 27-102 9-Qjs-640937:17 Bedside Glucose Comments: [facility] LaboratoryPoint of [address] [place] [address] BEDSIDE GLU 74 mg/dL (Normal) Range: 70-110 Comments: MANAGEMENT OF PATIENT CARE PER NURSING PROTOCOL 2-Ixf-132102:11 Urinalysis, Complete Comments: Order Date: 05/08/18How was Urine Obtained? [facility] [address] [place], [address] MUCUS, URINE 0 SEEN {/hpf} [...] (Normal) CLARITY Clear (Normal) COLOR Yellow (Normal) 8-Ihn-837843:11 Urine Drug Screen (VISTA) Comments: [facility] [address] [place], [address] THC NEGATIVE (Normal) PCP NEGATIVE [...] TESTING MUST BE ORDERED SEPARATELY. USE TESTMNEMONIC: [facility] 4-Cat-559343:56 Alcohol, Blood (Medical)-Serum Comments: [facility] [address] [place], [address] SERUM ETOH 5.0 mg/dL (Normal) Comments: The serum:whole blood ethanol ratio is approximately 1.14and varies slightly with hematocrit.Medical Alcohol reference interval and critical value innon-tolerant individuals; 50 - 100 Impairment 100 Intoxication 100 - 250 Severe Poisoning 250 - 400 Deep/possible fatal coma 2-Ypc-106570:56 Basic Metabolic Profile (BMP) Comments: [facility] [address] [place], [place], [address] GAP 3 (Abnormal) Range: 5-15 CO2 32.0 [...] Comments: Please note revised GLUCOSE reference range pupzoixgw13/02/2018. 7-Ctb-582068:56 CBC W/Diff, Automated Comments: [facility] [address] [place], [address] Absolute Lymph 1.81 {X10_3/ul} (Normal) [...] Range: 4.4-11.0 :56 Partial Thromboplast Time Comments: [facility] [address] [place], [address] PTT 30.4 s (Normal) Range: 24.1-36.2 :56 Prothrombin Time w/INR Comments: [facility] [address] [place], [address] INR 1.2 (Normal) PROTIME 15.4 s (Abnormal) Range: 11.7-14.9 1-Wbq-862884:56 Troponin-I Comments: [facility] [address] [place], [place], [address] TROPONIN-I < 0.015 ng/mL (Normal) Comments: TROPONIN-I EXPECTED VALUES <0.045 Negative 0.045 - 0.590 Consistent with Cardiac Damage > OR = 0.600 Critical Value Not every elevated troponin is indicative of [place]. T hesevalues should be used with clinical judgement in examiningthe patient's clinical picture for diagnosis. To establisha diagnosis of NJ versus myocardial injury, there must be ademonstrated rise and/ or fall in the troponin values, inaddition to ischemic symptoms, EKG changes, new regionalwall motion abnormality, and/or angiographical evidence. PLEASE NOTE: REFERENCE RANGES EDITED 02/17/1808-May-20183-Uua-010773:56 Valproic Acid (Depakene) Level Comments: [facility] [address] [place], [place], [address] VALPROIC ACID 85 ug/mL (Normal) Range: 50-100 33-Ntm-111121:00 Alcohol, Blood (Medical)-Serum Comments: [facility] [address] [place], [place], [address] SERUM ETOH 10.0 mg/dL (Normal) Comments: The serum:whole blood ethanol ratio is approximately 1.14and varies slightly with hematocrit.Medical Alcohol reference interval and critical value innon-tolerant individuals; 50 - 100 Impairment 100 Intoxication 100 - 250 Severe Poisoning 250 - 400 Deep/possible fatal coma 77-Bjh-792153:00 Basic Metabolic Profile (BMP) Comments: [facility] [address] [place], [place], [id number] GAP 5 (Normal) Range: 5-15 CO2 30.0 [...] A.D.A. criteria.Please note revised GLUCOSE reference range ohggrvfqu59/02/2018. 92-Rdc-200927:00 CBC W/Diff, Automated Comments: [facility] [address] [place], [address] Absolute Lymph 1.48 {X10_3/ul} (Normal) Range: 0.83-4.51 [...] 4.6-6.2 WBC 6.1 K/mm3 (Normal) Range: 4.4-11.0 75-Gpb-822273:00 Liver Profile Comments: [facility] Qlncdqcwle50[address] [place], [place], [address] D BILI 0.14 mg/dL (Normal) Range: 0.00-0.30 T BILI 0.40 mg/dL (Normal) Range: 0.20-1.00 ALT 15 U/L (Abnormal) Range: 16-61 ALK P 71 U/L (Normal) Range: 45-117 AST 15 U/L (Normal) Range: 15-37 GLOB 2.6 g/dL (Normal) Range: 2.2-4.2 ALB 3.3 g/dL (Normal) Range: 3.2-5.0 T PROT 5.9 g/dL (Abnormal) Range: 6.4-8.2 37-Pum-050479:00 Troponin-I Comments: [facility] Ybfhbklcgl46[address] [place], [place], [address] TROPONIN-I < 0.015 ng/mL (Normal) Comments: TROPONIN-I EXPECTED VALUES <0.045 Negative 0.045 - 0.590 Consistent with Cardiac Damage > OR = 0.600 Critical Value Not every elevated troponin is indicative of [place]. T hesevalues should be used with clinical judgement in examiningthe patient's clinical picture for diagnosis. To establisha diagnosis of NJ versus myocardial injury, there must be ademonstrated rise and/ or fall in the troponin values, inaddition to ischemic symptoms, EKG changes, new regionalwall motion abnormality, and/or angiographical evidence. PLEASE NOTE: REFERENCE RANGES EDITED 02/17/1802-May-201874-Mjf-150997:00 Urinalysis, Complete Comments: Order Date: 05/02/18How was Urine Obtained? [facility] [address]vvetcsomm[address] [place], [place], [id number] MUCUS, URINE 0 SEEN {/hpf} (Normal) BACTERIA [...] (Normal) CLARITY Clear (Normal) COLOR Yellow (Normal) 50-Gcl-809879:00 Urine Drug Screen (VISTA) Comments: Order Date: 05/02/18[facility] Hljgyzkolo0223 [address] [place], [place], [address] THC NEGATIVE (Normal) PCP NEGATIVE (Normal) OPIATES [...] TESTING MUST BE ORDERED SEPARATELY. USE TESTMNEMONIC: [facility] 34-Quy-416282:43 Valproic Acid (Depakene) Level Comments: [facility] Ublrpqqonn17[address] [place], [place], [address] VALPROIC ACID 63 ug/mL (Normal) Range: 50-100 82-Ewe-001586:20 Basic Metabolic Profile (BMP) Comments: [facility] Yaqeegwdzt48[address] [place], [place], [address] GAP 7 (Normal) Range: 5-15 CO2 28.0 [...] Please note revised GLUCOSE reference range /02/2018. 40-Kre-235826:20 CBC W/Diff, Automated Comments: [facility] Zyrklkxufd56[address] [place], [place], [address] Absolute Lymph 1.48 {X10_3/ul} (Normal) Range: 0.83-4.51 [...] 4.6-6.2 WBC 6.7 K/mm3 (Normal) Range: 4.4-11.0 92-Wrl-932973:20 Partial Thromboplast Time Comments: [facility] Ptofmbuxsg0603 [facility] [place], [address] PTT 30.6 s (Normal) Range: 24.1-36.2 05-Nmr-024700:20 Prothrombin Time w/INR Comments: [facility] Jjeysaojhf7930 [facility] [address] [place], [place], [address] INR 1.1 (Normal) PROTIME 14.4 s (Normal) Range: 11.7-14.9 35-Wwj-370126:20 Troponin-I Comments: [facility] Vookcboobu20[address] [facility] [address] [place], [place], [address] TROPONIN-I < 0.015 ng/mL (Normal) Comments: TROPONIN-I EXPECTED VALUES <0.045 Negative 0.045 - 0.590 Consistent with Cardiac Damage > OR = 0.600 Critical Value Not every elevated troponin is indicative of [place]. T hesevalues should be used with clinical judgement in examiningthe patient's clinical picture for diagnosis. To establisha diagnosis of [place] versus myocardial injury, there must be ademonstrated rise and/ or fall in the troponin values, inaddition to ischemic symptoms, EKG changes, new regionalwall motion abnormality, and/or angiographical evidence. PLEASE NOTE: REFERENCE RANGES EDITED 02/17/1816-Apr-201822-Veh-597186:11 Bedside Glucose Comments: [facility] LaboratoryPoint [facility] [address] [place] [address] BEDSIDE GLU 84 mg/dL (Normal) Range: 70-110 Comments: MANAGEMENT OF PATIENT CARE PER NURSING PROTOCOL 12-Qdp-993845:09 Anaerobic & Aerobic Comments: Left Leg; PATIENT NOT FASTINGPERFORMED BY: [facility] Kobnas5397 [address] [place] [id number] Information: LEFT LEG SRC:LG Culture ([id number]) Result 1 Mixed skin elvira (Normal) Aerobic Culture Final report (Normal) Result 1 NANG72 (Normal) Comments: No anaerobic growth in 72 hours. Anaerobic Culture Final report (Normal) 49-Hzt-46806:17 Alanine Aminotransferas (SGPT) Comments: [address] [place], [address] ALT 15 U/L (Abnormal) Range: 16-61 25-Gub-44724:17 AST(SGOT) Comments: [address] [place], [address] AST 20 U/L (Normal) Range: 15-37 30-Cre-06690:17 Platelet Count Comments: [address] [place], [address] PLT 178 K/mm3 (Normal) Range: 150-450 54-Ywy-53297:17 Valproic Acid (Depakene) Level Comments: [address] [place], [address] VALPROIC ACID 73 ug/mL (Normal) Range: 50-100 11-Met-877145:05 Basic Metabolic Profile (BMP) Comments: [address] [place], [address] GAP 4 (Abnormal) Range: 5-15 CO2 33.0 [...] Comments: Please note revised GLUCOSE reference range rbhjkosui12/02/2018. 40-Gpc-816442:05 CBC W/Diff, Automated Comments: [facility] T[address]osiirhs[address] [place], [address] Absolute Lymph 1.28 {X10_3/ul} (Normal) Range: 0.83-4.51 [...] 4.6-6.2 WBC 6.7 K/mm3 (Normal) Range: 4.4-11.0 03-Lly-434263:02 Microscopic Examination Comments: PATIENT WAS FASTINGPERFORMED BY: AdanRUSTKqifwp4095 [facility] [id number] Bacteria Few (Normal) Mucus Threads Present (Normal) Epithelial Cells (non renal) None seen {/hpf} (Normal) Range: 0 - 10 RBC 0-2 {/hpf} (Normal) Range: 0 - 2 WBC 0-5 {/hpf} (Normal) Range: 0 - 5 :02 TSH (87384) Comments: PATIENT WAS FASTINGPERFORMED BY: Adan Elpsxc2720 [facility] [id number] TSH 3.530 {uIU/mL} (Normal) Range: 0.450-4.500 :02 URINALYSIS, W/ MICRO (81757) Comments: PATIENT WAS FASTINGPERFORMED BY: Adan Wrdyvi3316 [facility] [id number] Microscopic Examination See below: (Normal) Comments: Microscopic was indicated and was performed. Microscopic Examination MICRON (Normal) Comments: Microscopic follows if indicated. Nitrite, Urine Negative (Normal) Urobilinogen,Semi-Qn 0.2 mg/dL (Normal) Range: 0.2-1.0 Bilirubin Negative (Normal) Occult Blood Negative (Normal) Ketones Negative (Normal) Glucose Negative (Normal) Protein Trace (Normal) WBC Esterase Negative (Normal) Appearance Clear (Normal) Urine-Color Yellow (Normal) pH 7.0 (Normal) Range: 5.0-7.5 Specific [place] 1.015 (Normal) Range: 1.005-1.030 19-Jvs-610969:02 MICROALBUMIN: CREATININE RATIO Comments: PATIENT WAS FASTINGPERFORMED BY: Adan Pinnba7258 [facility] [id number] (15808) AND (70606) Alb/Creat Ratio 167.0 {mg/g_creat} (Abnormal) Range: 0.0-30.0 Albumin, Urine 110.4 ug/mL (Normal) Creatinine, Urine 66.1 mg/dL (Normal) 41-Zvq-276953:02 METABOLIC PANEL, COMPREHENSIVE Comments: PATIENT WAS FASTINGPERFORMED BY: [employer]70 [facility] [id number] (40708) ALT (SGPT) 16 [iU]/L (Normal) Range: 0-44 [...] Glucose, Serum 101 mg/dL (Abnormal) Range: 65-99 81-Eyd-024206:02 LIPID PANEL (03716) Comments: PATIENT WAS FASTINGPERFORMED BY: iDiDiD6370 [facility] [id number] LDL/HDL Ratio 1.3 {ratio_units} (Normal) Range: 0.0-3.6 Comments: LDL/HDL Ratio Men Women 1/2 Avg.Risk 1.0 1.5 Av g.Risk 3.6 3.2 2X Avg.Risk 6.2 5.0 3X Avg.Risk 8.0 6.1 LDL Cholesterol Calc 64 mg/dL (Normal) Range: 0-99 VLDL Cholesterol Justo 16 mg/dL (Normal) Range: 5-40 HDL Cholesterol 50 mg/dL (Normal) Triglycerides 79 mg/dL (Normal) Range: 0-149 Cholesterol, Total 130 mg/dL (Normal) Range: 100-199 44-Cfm-968870:02 CBC W/AUTO DIFF WBC (09527) Comments: PATIENT WAS FASTINGPERFORMED BY: [facility]3]Gkwgxa7294 [facility] [id number] Immature Grans (Abs) 0.0 {x10E3/uL} (Normal) Range: [...] 4.14-5.80 WBC 6.9 {x10E3/uL} (Normal) Range: 3.4-10.8 :52 HgA1C , Office (30680) HgA1C , Office 5.8 % (Normal) Range: 4.6 - 7.1 :52 Blood Glucose , Office (01923) Blood Glucose , Office 110 (Normal) :01 Microscopic Examination Comments: PATIENT NOT FASTINGPERFORMED BY: [facility] Lzgobr2118 [facility] [id number] Bacteria Few (Normal) Mucus Threads Present (Normal) Cast Type Hyaline casts (Normal) Casts Present {/lpf} (Abnormal) Epithelial Cells (non renal) None seen {/hpf} (Normal) Range: 0 - 10 RBC 0-2 {/hpf} (Normal) Range: 0 - 2 WBC 0-5 {/hpf} (Normal) Range: 0 - 5 :40 Urine Drug Screen (VISTA) Comments: [facility] L[address]ktbpdvlm[address] [place], [place], [address] THC NEGATIVE (Normal) PCP NEGATIVE (Normal) OPIATES [...] TESTING MUST BE ORDERED SEPARATELY. USE TESTMNEMONIC: [facility] 34-Iwb-110481:06 Alcohol, Blood (Medical)-Serum Comments: [facility] [address]dzjbit[address] [place], [address] SERUM ETOH < 3.0 mg/dL (Normal) Comments: The serum:whole blood ethanol ratio is approximately 1.14and varies slightly with hematocrit.Medical Alcohol reference interval and critical value innon-tolerant individuals; 50 - 100 Impairment 100 Intoxication 100 - 250 Severe Poisoning 250 - 400 Deep/possible fatal coma 25-Elm-221700:06 Basic Metabolic Profile (BMP) Comments: [facility] S[address]riubq60[address] [place], [address] GAP 8 (Normal) Range: 5-15 CO2 29.0 [...] 126 mg/dLsuggests DIABETES MELLITUS per A.D.A. criteria. 75-Nbu-082263:06 CBC W/Diff, Automated Comments: [facility] Lvggexfcka48[address] [place], [address] Absolute Lymph 1.12 {X10_3/ul} (Normal) Range: 0.83-4.51 [...] 4.6-6.2 WBC 8.7 K/mm3 (Normal) Range: 4.4-11.0 47-Cwi-670040:06 Valproic Acid (Depakene) Level Comments: [facility] Fwryxwvct[address]4355 [place], [address] VALPROIC ACID 49 ug/mL (Abnormal) Range: 50-100 9-Dyo-238854:29 HGB A1C (30836) HGB A1C 5.9 % (Normal) Range: 4.6 - 7.1 75-Pwi-840504:57 TSH (23182) Comments: PATIENT WAS FASTINGPERFORMED BY: [facility] Wkjfls4980 [facility] [id number] TSH 3.020 {uIU/mL} (Normal) Range: 0.450-4.500 70-Rji-954307:01 URINALYSIS, W/ MICRO (27562) Comments: PATIENT NOT FASTINGPERFORMED BY: [facility] Qsqyxu8747 [facility] [id number] Microscopic Examination See below: (Normal) Comments: Microscopic was indicated and was performed. Microscopic Examination MICRON (Normal) Comments: Microscopic follows if indicated. Nitrite, Urine Negative (Normal) Urobilinogen,Semi-Qn 0.2 mg/dL (Normal) Range: 0.2-1.0 Bilirubin Negative (Normal) Occult Blood Negative (Normal) Ketones Negative (Normal) Glucose Negative (Normal) Protein Negative (Normal) WBC Esterase Negative (Normal) Appearance Clear (Normal) Urine-Color Yellow (Normal) pH 6.5 (Normal) Range: 5.0-7.5 Specific [place] 1.010 (Normal) Range: 1.005-1.030 51-Ikr-044331:01 MICROALBUMIN: CREATININE RATIO Comments: PATIENT NOT FASTINGPERFORMED BY: [employer] Formerly [facility] HospitalInternational SportsbookAt[facility] Health [facility] [id number] (37581) AND (11057) Microalb/Creat Ratio 43.2 {mg/g_creat} (Abnormal) Range: 0.0-30.0 Microalbumin, Urine 20.9 ug/mL (Normal) Creatinine, Urine 48.4 mg/dL (Normal) 70-Xtf-185718:57 METABOLIC PANEL, COMPREHENSIVE Comments: PATIENT WAS FASTINGPERFORMED BY: [employer]70 [facility] [id number] (41842) ALT (SGPT) 6 [iU]/L (Normal) Range: 0-44 [...] Glucose, Serum 79 mg/dL (Normal) Range: 65-99 93-Ikl-569333:57 LIPID PANEL (48517) Comments: PATIENT WAS FASTINGPERFORMED BY: [facility]360[facility] [id number] LDL/HDL Ratio 1.2 {ratio_units} (Normal) Range: 0.0-3.6 Comments: LDL/HDL Ratio Men Women 1/2 Avg.Risk 1.0 1.5 Av g.Risk 3.6 3.2 2X Avg.Risk 6.2 5.0 3X Avg.Risk 8.0 6.1 LDL Cholesterol Calc 51 mg/dL (Normal) Range: 0-99 VLDL Cholesterol Justo 17 mg/dL (Normal) Range: 5-40 HDL Cholesterol 42 mg/dL (Normal) Triglycerides 84 mg/dL (Normal) Range: 0-149 Cholesterol, Total 110 mg/dL (Normal) Range: 100-199 50-Wxv-041410:57 CBC W/AUTO DIFF WBC (50196) Comments: PATIENT WAS FASTINGPERFORMED BY: iDiDiD6370 [place] [facility] [id number] Immature Grans (Abs) 0.0 {x10E3/uL} (Normal) Range: [...] 4.14-5.80 WBC 8.5 {x10E3/uL} (Normal) Range: 3.4-10.8 5-Jpt-806207:23 Blood Glucose , Office (54104) Blood Glucose , Office 106 (Normal) 74-Vzq-254007:31 PSA (PROSTATE SPECIFIC Comments: PATIENT WAS FASTINGPERFORMED BY: [employer]70 [facility] [id number] ANTIGEN) (V76.44) Prostate Specific Ag, 1.6 ng/mL (Normal) Range: 0.0-4.0 Serum Comments: Meeps ECLIA methodology. .According to the [place] [employer], Serum PSA shoulddecrease and remain at undetectable levels after radicalprostatectomy. The AUA defines biochemical recurrence as an initialPSA value 0.2 ng/mL or greater followed by a subsequent confirmatoryPSA value 0.2 ng/mL or greater.Values obtained with d ifferent assay methods or kits cannot be usedinterchangeably. Results cannot be interpreted as absolute evidenceof the presence or absence of malignant disease. 94-Cve-566603:31 HGB A1C (71865) Comments: PATIENT WAS FASTINGPERFORMED BY: iDiDiD6370 [facility] [id number] Hemoglobin A1c 6.0 % (Abnormal) Range: 4.8-5.6 Comments: . Pre-diabetes: 5.7 - 6.4 Diabetes: >6.4 Glycemic control for adults with diabetes: <7.0 56-Pfl-961386:31 TSH (THYROID STIMULATING Comments: PATIENT WAS FASTINGPERFORMED BY: Adan Qeiuqo5841 [place] [facility] [place] [id number] HORMONE) (43586) TSH 2.990 {uIU/mL} (Normal) Range: 0.450-4.500 04-Uvy-124401:31 CALCIFEDIOL (14122) Comments: PATIENT WAS FASTINGPERFORMED BY: Adan Xlnkdk5921 [facility] [place] [id number] Vitamin D, 25-Hydroxy 29.6 ng/mL (Abnormal) Range: 30.0-100.0 Comments: Vitamin D deficiency has been defined by the [place] [facility] and an Endocrine Society practice guideline as alevel of serum 25-OH vitamin D less than 20 ng/mL (1,2).The Endocrine Society went on to further define vitamin Dinsufficiency as a level between 21 and 29 ng/mL (2).1. IOM ([place] of Medicine). 2010. Dietary reference intakes for calcium and D. [place]: The National Academies Press.2. Forrest MF, [place], Lexi EPSINOZA, et al. Evaluation, treatment, and prevention of vitamin D deficiency: an Endocrine Society clinical practice guideline. JCEM. 2010; 96(7):1911-30. 31-Eda-154773:31 MICROALBUMIN: CREATININE RATIO Comments: PATIENT WAS FASTINGPERFORMED BY: Adan Ywydle4754 [facility] [id number] (84323) AND (86588) Microalb/Creat Ratio 408.1 {mg/g_creat} (Abnormal) Range: 0.0-30.0 Microalbumin, Urine 85.3 ug/mL (Normal) Creatinine, Urine 20.9 mg/dL (Normal) 07-Ekf-053983:31 METABOLIC PANEL, COMPREHENSIVE Comments: PATIENT WAS FASTINGPERFORMED BY: Adan Rbjhxq7008 [facility] [id number] (15988) ALT (SGPT) 9 [iU]/L (Normal) Range: 0-44 [...] Glucose, Serum 117 mg/dL (Abnormal) Range: 65-99 47-Euq-501125:31 LIPID PANEL (02749) Comments: PATIENT WAS FASTINGPERFORMED BY: [facility]3]Bpzfdd0404 [facility] [id number] LDL/HDL Ratio 1.1 {ratio_units} (Normal) Range: 0.0-3.6 Comments: LDL/HDL Ratio Men Women 1/2 Avg.Risk 1.0 1.5 Av g.Risk 3.6 3.2 2X Avg.Risk 6.2 5.0 3X Avg.Risk 8.0 6.1 LDL Cholesterol Calc 68 mg/dL (Normal) Range: 0-99 VLDL Cholesterol Justo 18 mg/dL (Normal) Range: 5-40 HDL Cholesterol 63 mg/dL (Normal) Triglycerides 88 mg/dL (Normal) Range: 0-149 Cholesterol, Total 149 mg/dL (Normal) Range: 100-199 76-Prq-456712:31 CBC with auto diff (97347) Comments: PATIENT WAS FASTINGPERFORMED BY: [facility] Qpailc2506 [place] [facility] [id number] Immature Grans (Abs) 0.0 {x10E3/uL} (Normal) Range: [...] 4.14-5.80 WBC 6.4 {x10E3/uL} (Normal) Range: 3.4-10.8 23-Hbz-053891:00 Urine Drug Screen (VISTA) Comments: [facility] [address] [place], [address] THC NEGATIVE (Normal) PCP NEGATIVE [...] TESTING MUST BE ORDERED SEPARATELY. USE TESTMNEMONIC: [facility] 22-Jxw-301394:45 Alcohol, Blood (Medical)-Serum Comments: [facility] [address]jvrcpxgq5[address] [place], [place], [address] SERUM ETOH < 3.0 mg/dL (Normal) Comments: The serum:whole blood ethanol ratio is approximately 1.14and varies slightly with hematocrit.Medical Alcohol reference interval and critical value innon-tolerant individuals; 50 - 100 Impairment 100 Intoxication 100 - 250 Severe Poisoning 250 - 400 Deep/possible fatal coma :45 Basic Metabolic Profile (BMP) Comments: [facility] Mdlsffteok6[address] [place], [place], [address] GAP 1 (Abnormal) Range: 5-15 CO2 31.0 [...] <126 mg/dLsuggests IMPAIRED HOMEOSTASIS per A.D.A. criteria. 30-Dna-984725:45 CBC W/Diff, Automated Comments: [facility] Chknehtxhs7[address] [place], [address] Absolute Lymph 1.30 {X10_3/ul} (Normal) Range: 0.83-4.51 [...] Range: 4.4-11.0 :44 Alcohol, Blood (Medical)-Serum Comments: [facility] Nublbrkcyx59[address] [place], [place], [address] SERUM ETOH < 3.0 mg/dL (Normal) Comments: The serum:whole blood ethanol ratio is approximately 1.14and varies slightly with hematocrit.Medical Alcohol reference interval and critical value innon-tolerant individuals; 50 - 100 Impairment 100 Intoxication 100 - 250 Severe Poisoning 250 - 400 Deep/possible fatal coma :44 CBC W/Diff, Automated Comments: [facility] U[address]wdgvjsv8[address] [place], [place], [address] Absolute Lymph 1.10 {X10_3/ul} (Normal) Range: 0.83-4.51 [...] Range: 4.4-11.0 :44 Comprehensive Metabolic Profil Comments: [facility] Qkgbrcgxcz4952 [address] [place], [place], [address] GAP 1 (Abnormal) Range: 5-15 CO2 31.0 [...] 70-110 :44 Urine Drug Screen (VISTA) Comments: [facility] Wrgrpbvtnk85[address] [place], [place], [address] THC NEGATIVE (Normal) PCP NEGATIVE (Normal) OPIATES [...] TESTING MUST BE ORDERED SEPARATELY. USE TESTMNEMONIC: [facility] :44 Valproic Acid (Depakene) Level Comments: [facility] Uudvherzlg16[address] [place], [address] VALPROIC ACID < 3 ug/mL (Abnormal) Range: 50-100 49-Uno-309990:53 CBC, PLATELETS & MANUAL Comments: PATIENT NOT FASTINGPERFORMED BY: [facility] Pnrzsl4631 [facility] [id number] Information: [id number] DIFF (24475) Immature Grans (Abs) 0.0 {x10E3/uL} (Normal) Range: [...] Range: 3.4-10.8 :56 Alcohol, Blood (Medical)-Serum Comments: [facility] Nrwapihvcq1359 [facility] [address]. [place], [place], [address] SERUM ETOH 5.0 mg/dL (Normal) Comments: The serum:whole blood ethanol ratio is approximately 1.14and varies slightly with hematocrit.Medical Alcohol reference interval and critical value innon-tolerant individuals; 50 - 100 Impairment 100 Intoxication 100 - 250 Severe Poisoning 250 - 400 Deep/possible fatal coma :56 Basic Metabolic Profile (BMP) Comments: [facility] Iouvyfrhcl4090 [facility] [place], [place], [address] GAP 6 (Normal) Range: 5-15 CO2 29.0 [...] A.D.A. criteria. :56 CBC W/Diff, Automated Comments: [facility] Dmfyzjfzek60[address] [place], [place], [address] Absolute Lymph 1.36 {X10_3/ul} (Normal) Range: 0.83-4.51 [...] 4.4-11.0 :56 Valproic Acid (Depakene) Level Comments: [facility] Tdugngcntm4[address] [place], [place], [address] VALPROIC ACID 33 ug/mL (Abnormal) Range: 50-100 :50 Urine Drug Screen (VISTA) Comments: [facility] Adhicqyjot4487 [address] [place], [place], [address] THC NEGATIVE (Normal) PCP NEGATIVE (Normal) OPIATES [...] TESTING MUST BE ORDERED SEPARATELY. USE TESTMNEMONIC: [facility] :53 CBC, PLATELETS & MANUAL Comments: PATIENT NOT FASTINGPERFORMED BY: [facility] Oqfxno2223 [facility] [id number] Information: [id number] DIFF (98006) Immature Grans (Abs) 0.0 {x10E3/uL} (Normal) Range: [...] 4.14-5.80 WBC 6.7 {x10E3/uL} (Normal) Range: 3.4-10.8 42-Qmx-228426:56 CBC, PLATELETS & MANUAL Comments: PATIENT NOT FASTINGPERFORMED BY: [facility]3]Gjnlfy5217 [facility] [id number] Information: [id number] DIFF (51204) Immature Grans (Abs) 0.0 {x10E3/uL} (Normal) Range: [...] 4.14-5.80 WBC 7.7 {x10E3/uL} (Normal) Range: 3.4-10.8 84-Dvj-259769:28 Metabolic Panel, Comprehensive Comments: PATIENT NOT FASTINGPERFORMED BY: [facility]3]Alkxla8732 [facility] [id number] (38353) ALT (SGPT) 7 [iU]/L (Normal) Range: 0-44 [...] Glucose, Serum 99 mg/dL (Normal) Range: 65-99 15-Bed-523107:28 CBC, Platelets & Auto Comments: PATIENT NOT FASTINGPERFORMED BY: [facility]6370 [facility] [id number] Information: [id number] Diff (52306) Immature Grans (Abs) 0.0 {x10E3/uL} (Normal) Range: [...] 4.14-5.80 WBC 6.9 {x10E3/uL} (Normal) Range: 3.4-10.8 15-Cxm-412507:28 TSH (97844) Comments: PATIENT NOT FASTINGPERFORMED BY: [facility]6370 [facility] [id number] TSH 3.600 {uIU/mL} (Normal) Range: 0.450-4.500 :06 HgA1C , Office (25222) Comments: 5.9 HgA1C , Office 5.9 % (Normal) Range: 4.6 - 7.1 :06 Blood Glucose , Office (62078) Blood Glucose , Office 91 (Normal) :06 Urinalysis, Office (34517) UA - LEUKOCYTE ESTERASE Negative (Normal) UA - NITRITE Negative (Normal) URINE UROBILINGN SALMA TIMED Normal mg/dL (Normal) UA - PROTEIN Negative mg/dL (Normal) UA - PH 6 (Abnormal) UA - BLOOD Negative (Normal) UA - SPECIFIC GRAVITY 1.010 (Normal) UA - KETONES Negative mg/dL (Normal) UA - BILIRUBIN Negative (Normal) UA - GLUCOSE Negative (Normal) :06 CBC, PLATELETS & MANUAL Comments: PATIENT NOT FASTINGPERFORMED BY: [facility]3]Nteafj9068 [facility] [id number] Information: [id number] DIFF (29696) Immature Grans (Abs) 0.0 {x10E3/uL} (Normal) Range: [...] 4.14-5.80 WBC 6.1 {x10E3/uL} (Normal) Range: 3.4-10.8 39-Gcp-531322:50 CBC, PLATELETS & MANUAL Comments: PATIENT NOT FASTINGPERFORMED BY: [facility]3]Grsqfz8125 [facility] [id number] Information: [id number] DIFF (86632) Immature Grans (Abs) 0.0 {x10E3/uL} (Normal) Range: [...] & MANUAL Comments: PATIENT NOT FASTINGPERFORMED BY: [facility]3]Uyknvt0296 [facility] [id number] Information: [id number] DIFF (80582) Immature Grans (Abs) 0.0 {x10E3/uL} (Normal) Range: [...] 4.14-5.80 WBC 8.2 {x10E3/uL} (Normal) Range: 3.4-10.8 :42 CBC, PLATELETS & MANUAL Comments: PATIENT NOT FASTINGPERFORMED BY: [facility]3]Zymrzf3324 [facility] [id number] Information: [id number] DIFF (73597) Immature Grans (Abs) 0.0 {x10E3/uL} (Normal) Range: [...] 4.14-5.80 WBC 7.0 {x10E3/uL} (Normal) Range: 3.4-10.8 [id number] MRSA Wound DNA by PCR Comments: Specimen Source? NASAL, [facility] [id number] [place], [id number] SA RESULT NEGATIVE (Normal) MRSA RESULT Negative (Normal) [id number] CBC, PLATELETS & MANUAL Comments: PATIENT NOT FASTINGPERFORMED BY: [facility] [id number] [facility] [id number] Information: [id number] DIFF ([id number]) Immature Grans (Abs) 0.0 {x10E3/uL} (Normal) Range: [...] 4.14-5.80 WBC 10.1 {x10E3/uL} (Normal) Range: 3.4-10.8 [id number]-Ybu-[id number]:13 PSA (PROSTATE SPECIFIC Comments: PATIENT NOT FASTINGPERFORMED BY: [facility] [id number] ANTIGEN) (V76.44) Prostate Specific Ag, 1.2 ng/mL (Normal) Range: 0.0-4.0 Serum Comments: Car ECLIA methodology. .According to the [employer], Serum PSA shoulddecrease and remain at undetectable levels after radicalprostatectomy. The AUA defines biochemical recurrence as an initialPSA value 0.2 ng/mL or greater followed by a subsequent confirmatoryPSA value 0.2 ng/mL or greater.Values obtained with d ifferent assay methods or kits cannot be usedinterchangeably. Results cannot be interpreted as absolute evidenceof the presence or absence of malignant disease. 00-Rfh-996424:13 Hemoglobin Glyclated (HGB A1C) Comments: PATIENT NOT FASTINGPERFORMED BY: Adan [id number] [facility] [id number] ([id number]) Hemoglobin A1c 6.0 % (Abnormal) Range: 4.8-5.6 Comments: . Pre-diabetes: 5.7 - 6.4 Diabetes: >6.4 Glycemic control for adults with diabetes: <7.0 33-Jux-436921:13 DHEA-S (DEHYDROEPIANDROSTERONE Comments: PATIENT NOT FASTINGPERFORMED BY: [employer] [id number] [facility] [id number] SULFATE) ([id number]) DHEA-Sulfate 133.8 ug/dL (Normal) Range: 48.9-344.2 81-Kbu-491048:13 TESTOSTERONE TOTAL ([id number]) Comments: PATIENT NOT FASTINGPERFORMED BY: Adan [id number] [facility] [id number] Comment: TESTM (Normal) Comments: Adult male reference interval is based on a population of lean malesup to 40 years old. Testosterone, Serum 529 ng/dL (Normal) Range: 348-1197 67-Kue-401838:13 TSH ([id number]) Comments: PATIENT NOT FASTINGPERFORMED BY: [facility] Bhodid7338 [facility] [place] [id number] TSH 2.910 {uIU/mL} (Normal) Range: 0.450-4.500 81-Kjc-291596:13 METABOLIC PANEL, COMPREHENSIVE Comments: PATIENT NOT FASTINGPERFORMED BY: [employer] [id number] [facility] [id number] ([id number]) ALT (SGPT) 7 [iU]/L (Normal) Range: 0-44 [...] Glucose, Serum 92 mg/dL (Normal) Range: 65-99 76-Tvz-034177:13 CBC W/AUTO DIFF WBC Comments: PATIENT NOT FASTINGPERFORMED BY: [facility] Hszluh5487 [facility] [id number] Information: [id number] ([id number]) Immature Grans (Abs) 0.0 {x10E3/uL} (Normal) Range: [...] Name Dates Details Instructions Essential hypertension : BP MONITORING - SELF Indication: Essential hypertension Essential hypertension : HTN/CAD Red Flags Indication: Essential hypertension Essential hypertension : Follow up in 3 weeks Indication: Essential hypertension Essential hypertension : Follow up in 3 [...] mental state Altered mental state : Reviewed 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 Indication: Altered mental state Altered mental status, unspecified altered mental status type : Reviewed Lab Indication: Altered mental status, unspecified altered mental status type Altered mental status, unspecified altered mental status type : Reviewed Diagnostic Tests Indication: Altered mental status, unspecified altered mental status type Altered mental status, unspecified altered mental status type : Reviewed 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 Indication: Altered mental status, unspecified altered [...] of lower extremity, unspecified laterality : Reviewed 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 Indication: Cellulitis of lower extremity, unspecified laterality Mild intermittent asthma without complication : Continue Current Prescription(s) Indication: Mild intermittent asthma without complication Controlled diabetes mellitus : Follow up in 3 months Indication: Controlled diabetes mellitus Essential hypertension : HTN/CAD Red Flags Indication: Essential hypertension Dog bite of upper extremity, right, subsequent encounter : Reviewed 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 Indication: Dog bite of upper extremity, right, subsequent encounter Cellulitis of forearm : Continue Current Prescription(s) Indication: Cellulitis of forearm Dog bite of upper extremity, right, initial encounter : Reviewed 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 Indication: Dog bite of upper extremity, [...] Sinusitis, acute Planned Observations Metabolic Panel, Basic ([id number])Indication: Therapeutic drug monitoring On: 1-Vwz-232422:23 Request CBC, PLATELETS & MANUAL DIFF ([id number])Indication: Essential hypertension On: 19-Mar-2017 Request CBC, PLATELETS & MANUAL DIFF ([id number])Indication: Essential hypertension On: 12-Mar-2017 Request CBC, PLATELETS & MANUAL DIFF ([id number])Indication: Essential hypertension On: 05-Mar-2017 Request CBC, PLATELETS & MANUAL DIFF ([id number])Indication: Essential hypertension On: 26-Feb-2017 Request CBC, PLATELETS & MANUAL DIFF ([id number])Indication: Essential hypertension On: 19-Feb-2017 Request CBC, PLATELETS & MANUAL DIFF ([id number])Indication: Essential hypertension On: 12-Feb-2017 Request CBC, PLATELETS & MANUAL DIFF ([id number])Indication: Essential hypertension On: 05-Feb-2017 Request CBC, PLATELETS & MANUAL DIFF ([id number])Indication: Essential hypertension On: 29-Jan-2017 Request CBC, PLATELETS & MANUAL DIFF ([id number])Indication: Essential hypertension On: 22-Jan-2017 Request CBC, PLATELETS & MANUAL DIFF ([id number])Indication: Essential hypertension On: 15-Jan-2017 Request HgA1C , Office ([id number])Indication: Controlled diabetes mellitus On: 7-Bqb-661789:23 Request CBC, PLATELETS & MANUAL DIFF ([id number])Indication: Essential hypertension On: 08-Jan-2017 Request CBC, PLATELETS & MANUAL DIFF ([id number])Indication: Essential hypertension On: 01-Jan-2017 Request CBC, PLATELETS & MANUAL DIFF ([id number])Indication: Essential hypertension On: 25-Dec-2016 Request CBC, PLATELETS & MANUAL DIFF ([id number])Indication: Essential hypertension On: 18-Dec-2016 Request CBC, PLATELETS & MANUAL DIFF ([id number])Indication: Essential hypertension On: 11-Dec-2016 Request CBC, PLATELETS & MANUAL DIFF ([id number])Indication: Essential hypertension On: 04-Dec-2016 Request CBC, PLATELETS & MANUAL DIFF ([id number])Indication: Essential hypertension On: 27-Nov-2016 Request CBC, PLATELETS & MANUAL DIFF ([id number])Indication: Essential hypertension On: 20-Nov-2016 Request CBC, PLATELETS & MANUAL DIFF ([id number])Indication: Essential hypertension On: 13-Nov-2016 Request CBC, PLATELETS & MANUAL DIFF ([id number])Indication: Essential hypertension On: 06-Nov-2016 Request CBC, PLATELETS & MANUAL DIFF ([id number])Indication: Essential hypertension On: 30-Oct-2016 Request Metabolic Panel, Basic ([id number])Indication: Mixed erectile dysfunction On: 41-Tdu-495393:23 Request CBC, PLATELETS & MANUAL DIFF ([id number])Indication: Essential hypertension On: 23-Oct-2016 Request CBC, PLATELETS & MANUAL DIFF ([id number])Indication: Essential hypertension On: 16-Oct-2016 Request CBC, PLATELETS & MANUAL DIFF ([id number])Indication: Essential hypertension On: 09-Oct-2016 Request CBC, PLATELETS & MANUAL DIFF ([id number])Indication: Essential hypertension On: 02-Oct-2016 Request CBC, PLATELETS & MANUAL DIFF ([id number])Indication: Essential hypertension On: 25-Sep-2016 Request CBC, PLATELETS & MANUAL DIFF ([id number])Indication: Essential hypertension On: 18-Sep-2016 Request CBC, PLATELETS & MANUAL DIFF ([id number])Indication: Essential hypertension On: 11-Sep-2016 Request CBC, PLATELETS & MANUAL DIFF ([id number])Indication: Essential hypertension On: 04-Sep-2016 Request CBC, PLATELETS & MANUAL DIFF ([id number])Indication: Essential hypertension On: 28-Aug-2016 Request CBC, PLATELETS & MANUAL DIFF ([id number])Indication: Essential hypertension On: 21-Aug-2016 Request CBC, PLATELETS & MANUAL DIFF ([id number])Indication: Essential hypertension On: 14-Aug-2016 Request CBC, PLATELETS & MANUAL DIFF ([id number])Indication: Essential hypertension On: 07-Aug-2016 Request CBC, PLATELETS & MANUAL DIFF ([id number])Indication: Essential hypertension On: 31-Jul-2016 Request CBC, PLATELETS & MANUAL DIFF ([id number])Indication: Essential hypertension On: 24-Jul-2016 Request CBC, PLATELETS & MANUAL DIFF ([id number])Indication: Essential hypertension On: 17-Jul-2016 Request CBC, PLATELETS & MANUAL DIFF ([id number])Indication: Essential hypertension On: 10-Jul-2016 Request CBC, PLATELETS & MANUAL DIFF ([id number])Indication: Essential hypertension On: 03-Jul-2016 Request CBC, PLATELETS & MANUAL DIFF ([id number])Indication: Essential hypertension On: 26-Jun-2016 Request CBC, PLATELETS & MANUAL DIFF ([id number])Indication: Essential hypertension On: 19-Jun-2016 Request CBC, PLATELETS & MANUAL DIFF ([id number])Indication: Essential hypertension On: 12-Jun-2016 Request CBC, PLATELETS & MANUAL DIFF ([id number])Indication: Essential hypertension On: 05-Jun-2016 Request CBC, PLATELETS & MANUAL DIFF ([id number])Indication: Essential hypertension On: 29-May-2016 Request CBC, PLATELETS & MANUAL DIFF ([id number])Indication: Essential hypertension On: 22-May-2016 Request MICROALBUMIN: CREATININE RATIO ([id number]) AND ([id number])Indication: Weakness On: 88-Zji-926462:22 Request CBC, PLATELETS & MANUAL DIFF ([id number])Indication: Essential hypertension On: 24-Apr-2016 Request MRSA Culture ([id number])Indication: Nasal lesion On: 22-Xji-874896:43 Request BELKIS CULTURE-BLOOD ([id number])Indication: History of bacteremia On: 63-Wup-241849:27 Request Aerobic Bacterial Culture ([id number])Indication: Nasal lesion On: 93-Fql-618200:25 Request URINALYSIS, W/ MICRO ([id number])Indication: Essential hypertension On: 44-Jco-604573:41 Request MICROALBUMIN: CREATININE RATIO ([id number]) AND ([id number])Indication: Essential hypertension On: 01-Quf-153411:41 Request Planned Encounters Medical; 4 Month FU - On: 03-Oct-2018 7:00 [facility] Dhara Taylor DO, DO, Kathleen Planned Procedures Flu Vaccine (Quadrivalent) [id number]: On: 30-Jul-2018 Intent Dhara Taylor DO, DO, Kathleen MRI BRAIN W/ CONTRAST ([id number])By: On: 07-May-2018 Intent Dhara Taylor DO, DO, Kathleen ELECTROCARDIOGRAM, COMPLETE (ECG) On: 29-Oct-2017 Intent ([id number])By: Dhara Taylor DO Comments: nsr no acute chg Dhara Taylor DO Spirometry ([id number])By: Claudia RESENDEZ, On: 29-Oct-2017 Intent Dhara Hendricks DO Comments: #1 severe obstruction #2 severe obstruction -not much different after brisk walk TDAP VACCINE >7 IM ([id number])By: Claudia On: 26-Apr-2017 Dhara Thkakar DO, DO, Kathleen Comments: Lot:[id number]:05/23/19Dose:0.5mgRoute:im Site:[facility] By:GLORIA signed ELECTROCARDIOGRAM, COMPLETE (ECG) On: 10-Jan-2017 Intent ([id number])By: Dhara Taylor DO Comments: pt refused Dhara Taylor DO Aerosol Treatment ([id number])By: Claudia On: 05-Aug-2015 Intent Dhara RESENDEZ DO, Kathleen Spirometry ([id number])By: Claudia RESENDEZ, On: 05-Aug-2015 Intent Dhara Hendricks DO Instructions Name Dates Details Smoker : How to access health information online Indication: Smoker Smoker : How to access health information online - Detail Indication: Smoker Smoker : Patient Instructions Indication: Smoker Smoker : How to access [...] Indication: Sinusitis, acute Encounters Office Visit On: 05-Sep-2018 8:36 Encounter Reason: Follow up Hypertension - blood pressure range : (dont check it)., [ADDITIONAL REASON] Follow up Meds - Patient has been compliant with instructions. Current medicatio End: 05-Sep-2018 10:05 n use: no side effects and compliant with dosing regimen. Nutrition: balanced diet. Encounter Diagnosis: BMI 28.0-28.9,adult, Smoker, Essential hypertension, Cough, Bronchitis [facility] Office Visit On: 15-Aug-2018 9:50 Encounter Reason: [...] for Tdap vaccination (Renamed from Need for qoykfngqeg-jrniair-uuqcqodai (Tdap) vaccine, adult/a dolescent) [facility] [...] 10:05 [facility] Office Visit On: 19-Cliff-2016 10:16 Encounter Reason: Weakness - [place] [address] [place]. Have been incontinent of urine and extreme weakness. Was seeing [facility] Longoria at [facility] switched to Dr. Zhu Diagnosis: Weakness, [...] [facility] Payers Christophermarnie/[employer] Marcelina Grimaldo; jose f guarantor
--- OUTSIDE RECORDS SUMMARY | 2018-10-15 01:42 | XMS RPT_ITS | Continuity of Care Document ---
:1955 Author Organization [facility] Address [address] [facility] [address] [place] [address] Phone Care Team Providers Name Role Phone [...] Active Schizophrenia (F20.9, 295.90) Comments: managed by [facility] Status: Active Smoker (F17.200, 305.1) Status: Active [...] Propionate 50 MCG/ACT Nasal Suspension 1 (one) [place] qd for 0 days Quantity: 1 {Container} [...] brain normalmental status back to baseline per access coordinator- Isaac Status: Resolved as of 21-May-2018 BMI 28.0-28.9,adult (Z68.28, V85.24) Status: Resolved as of 21-May-2018 BMI 29.0-29.9,adult (Z68.29, V85.25) Status: Inactive as of 02-May-2018 Cannabis abuse (F12.10, 305.20) Comments: per case technician knowledge -inactive Status: Inactive as of 21-May-2018 [...] for Tdap vaccination (Renamed from Need for mcdxiwknab-vvycsiy-bsubkfrii (Tdap) vaccine, adult/adolescent) (Z23, V06.1) Status: Resolved [...] V58.32) Comments: sutures placed in ER at [facility] Status: Inactive as of 29-Oct-2017 Weakness (R53.1, 780.79) Comments: is reducing depakote per self, sees psych Asteka Status: Inactive as of 10-Jan-2017 Procedures Procedure Dates Details Tonsillectomy Completed Date Value Details 08-May-2018 History and Physical Exam Result: Comments: See Note; NOTES: [facility] Medical Records Department [address] [place] [address] History and Physical 05/08/18 2105 MR#: [id number] Acct: [id number] Name: CHARISSA SOSA Rep #: [id number] : 1955 62 From: Kristal Larsen PCP: [...] diabetes mellitus Status: Chronic Qualifiers: Diabetes mellitus terminal block assembler insulin use: without terminal block assembler use Diabetes mellitus complication statu s: without [...] be performed who now re-presents to the [facility] ED on 05/08/18 with confusion and noted aud itory hallucinations with fdc confirmed taking his schizophrenia medications, failure to understand how to perform basic tasks he normally performs over the last 48 hours with PCP and longterm discussion with patient and now willingness to have MRI performed. longterm notes that this is very different from [...] Debridement of left foot ulcer and anterior bojra ulcer. Psychiatric History: Anxiety, Depression, Prior suicide attempt, Schizophrenia Lives: Care Home Smoking Status: Current every day smoker Tobacco [...] [facility] who presents to the [facility] ED on 05/08/18 with confusion and noted auditory halluci nations with longterm confirmed taking his schizophrenia medications, failure to understand how to perform basic tasks he normally performs over the last 48 hours with PCP and longterm discussion wi th patient and now willingness [...] Lovenox. Code Visit OBSV E AND M: 37790 Initial observation care L3 05/08/182139 <Electronically signed by Kristal Larsen > Date Kristal Larsen Cosigner Signature: Date (if applicable) CC: Kristal Larsen; Dhara aTylor DO Signed 08-May-2018 Emergency Department Summary Result: Comments: See Note; NOTES: [facility] Medical Records Department [address] [place] [address] Emergency Department Summary 05/08/18 1748 MR#: [id number] Acct: [id number] Name: AJIT SOSA Rep #: [id number] : 1955 62 From: Petrona Rios MD PCP: Dhara Taylor DO Status: REG ER - ER Visit Summary Date of Service: 05/08/18 Chief Complaint: Confusion History of P resent Illness: The patient is a 62 M presenting with intermittent confusion. His staff member from his fdc states that he has been confused intermittently since April 16. He was admitted at that time for TIA workup. During that admission patient refused MRI. He was seen again in the ED on May 02 for continued intermittent confusion. He refused MRI during the ED stay as well. Today fdc d iscussed with his primary care physician Dr. Taylor who feels the patient needs an MRI according to fdc staff and the patient. The patient is now agreeable to MRI. He was advised to come to the E D for further evaluation. longterm staff states that he has been having [...] status, TIA This note was generated with OrderBorder dictation software. It may contain inc orrect words, spelling, and punctuation that were not noted in review of the chart prior to signing ED Disposition - Plan for ED Patient: Chief Complaint: Confusion Referrals: Dhara Taylor, [Pr [facility] Care Provider] - What to do if you have Problems For any increased pain, shortness of breath, bleeding, nausea or vomiting, chest pain, or any unexpected problems, contact your Primary Care Pr ovider. Call [facility] Registry ([phone]) or report to the closest Emergency Room. Call 911 if necessary. 05/08/182128 <Electronically signed by Petrona Rios MD> Date _ Petrona Rios MD Cosigner Signature (If Indicated): Date CC: Dhara Taylor DO 08-May-2018 Brain/Head without Contrast Result: Comments: See Note; NOTES: [facility] Imaging Services [address] [place] [address] Brain/Head without Contrast MR#: [id number] Acct: [id number] Name: AJIT SOSA Rep #: [id number] : 1955 M 62 From: Lorne Augustine MD PCP: Dhara Taylor DO Status: REG ER Study: Brain/Head without Contrast Date of Exam: 05/08/18 Exam# [id number] Ordering Dr: Petrona Rios MD UDY: CT [...] CC: Petrona Rios MD; Dhara Taylor DO Metal Off Bearer: Signed 08-May-2018 Chest 1 View Result: Comments: See Note; NOTES: [facility] Imaging Services [address] [place] [address] Chest 1 View MR#: [id number] Acct: [id number] Name: AJIT SOSA Rep #: [id number] : M 62 From: Lorne Augustine MD PCP: Dhara Taylor DO Status: REG ER Study: Chest 1 View Date of Exam: 05/08/18 Exam# [id number] Ordering Dr: Petrona Rios MD STUDY: X-RAY [...] CC: Petrona Rios MD; Dhara Taylor DO Metal Off Bearer: Signed 06-May-2018 12 Lead Electrocardiogram Result: Comments: See Note; NOTES: [facility] Cardiovascular Services [address] [place] [address] 12 Lead EKG 05/02/18 1555 MR#: [id number] Acct: [id number] Name: AJIT SOSA Rep # : [id number] : 1955 62 From: Ajit Benavidez MD [...] ECG Confirmed by PRAMOD ALSTON, AJIT ([id number]), assistant production editor DANNA LIZAMA ([id number]) on 05/06/2018 2:29:59 PM Referred By: VAISHALI Confirmed By:AJIT BENAVIDEZ MD 05/06/18 1430 Date Ajit Benavidez MD CC: Gabriela Barrett MD; Dhara Taylor DO Signed 03-May-2018 Emergency Department Summary Result: Comments: See Note; NOTES: [facility] Medical Records Department [address] [place] [address] Emergency Department Summary 05/02/18 1648 MR#: [id number] Acct: [id number] Name: AJIT SOSA Rep #: [id number] : 1955 62 From: Gabriela Barrett MD [...] presentation is not typical of his psychosis. longterm staff member describes confusion with normal tasks [...] the week. Patient was monitored at the fdc o rick the weekend. I did speak with Dr. Carter to update her on the patient's findings and plan as the patient was sent in by Dr. Taylor. Treatment Plan: [] Disposition: Discharge Impression: 1. Repor melchor slurred speech, resolved 2. Schizoaffective disorder This note was generated with OrderBorder dictation software. It may contain incorrect words, [...] problems, contact your Primary Care Provider. Call [facility] ([phone]) or report to the closest Emergency Room. Call 911 if necessary. 05/03 0028 <Electronically signed by Gabriela Barrett MD> Date Gabriela Barrett MD Cosigner Signature (If Indicated): Date ____ CC: Dhara Taylor DO 02-May-2018 Discharge Instruction Result: Comments: See Note; NOTES: [facility] Medical Records Department [address] [facility] [place] [address] Discharge Instruction 05/02/182233 MR#: [id number] Acct: [id number] Name: Rolando SOSA Sera Rep #: [id number] : 1955 62 From: Gabriela Barrett MD [...] without Contrast Result: Comments: See Note; NOTES: [facility] Imaging Services [address] [place] [address] Brain/Head without Contrast MR#: [id number] Acct: [id number] Name: AJIT SOSA Rep #: [id number] : 1955 M 62 From: Edenilosn Hernandez MD PCP: Dhara Taylor DO Status: [facility] Study: Brain/Head without Contrast Date of Exam: 05/02/18 Exam# [id number] Ordering Dr: Gabriela Barrett MD [facility] DY: CT BRAIN WITHOUT CONTRAST [...] CC: Gabriela Barrett MD; Dhara Taylor DO Metal Off Bearer: Signed 16-Apr-2018 Brain/Head without Contrast Result: Comments: See Note; NOTES: [facility] Imaging Services [address] [place] [address] Brain/Head without Contrast MR#: [id number] Acct: [id number] Name: AJIT SOSA Rep #: [id number] : 1955 M 62 From: Jackson Conde DO PCP: Dhara Taylor DO Status: REG ER Study: Brain/Head without Contrast Date of Exam: 04/16/18 Exam# [id number] Ordering Dr: Petrona Rios MD STUD Y: [...] Jackson Conde DO at 17:16 EDT Tel [phone], Service support [phone], CC: Petrona Rios MD; Dhara Taylor DO Metal Off Bearer: Signed 16-Apr-2018 Chest 1 View Result: Comments: See Note; NOTES: [facility] Imaging Services [address] [place] [address] Chest 1 View MR#: [id number] Acct: [id number] Name: AJIT SOSA Rep #: [id number] : M 62 From: Jackson Conde DO PCP: Dhara Taylor DO Status: PRE ER Study: Chest 1 View Date of Exam: 04/16/18 Exam# [id number] Ordering Dr: Petrona Rios MD STUDY: X-RAY [...] of the upper abdomen. ORDER # : [id number] RAD/Chest 1 View IMPRESSION: No acute cardiopulmonary disease or interval change. Electronically Signed: Jackson Conde DO at 16:55 EDT Tel [phone], Service support [phone], CC: Petrona Rios MD; Dhara Taylor DO Metal Off Bearer: Signed 16-Apr-2018 Emergency Department Summary Result: Comments: See Note; NOTES: [facility] Medical Records Department [address] [place] [address] Emergency Department Summary 04/16/18 0514 MR#: [id number] Acct: [id number] Name: AJIT SOSA Rep #: [id number] : 1955 62 From: Quentin Winkler MD PCP: Dhara Taylor DO Status: DEP ER - ER Visit Summary Date of Service: 04/16/18 Chief Complaint: Left arm pain History o f Present Illness: The patient is a 62 M presenting for evaluation secondary left arm pain. Patient has a underlying history of living in a fdc and has schizophrenia that is reasonably controlled [...] approved by a physician and his nursing workers' compensation claims supervisor and was unable to take any [...] arm pain This note was generated with OrderBorder dictation software. It may contain incorrect words, [...] your Primary Care Provider. Call [facility] Registry ([phone]) or report to the closest Emergency Room. Call 911 if necessary. 04/16/18 0717 <Electronically signed by Quentin Winkler MD> Date Quentin Winkler MD Cosigner Signature (If Indicated): Date CC: Dhara Taylor DO 21-Mar-2018 Wound Ctr History AND Physical Result: Comments: See Note; NOTES: [facility] Wound Healing Center [address] [place] [address] Wound Ctr History AND Physical 03/21/182028 MR#: [id number] Acct: [id number] Name: AJIT RAMSEY Rep #: [id number] : 1955 62 From: Samantha Manuel DO [...] Chronic Current Visit: Yes Qualifiers: Diabetes mellitus chcf insulin use: without chcf use Diabetes mellitus complication stat us: without [...] odor or drainage. He lives in a fdc and cares for himself with supervision from staff. He is accompanied today by his top case assembler, Isaac. Past Medical History Charissa wong Medical [...] l Diabetes Sibling Hypertension Lives: - - fdc Smoking Status: Current every day smoker Tobacco [...] Date Recorded By Document 03/21/18 13:53 DL [id number] 8 14:14 DL Wound Center Nurse 1 [...] Date Recorded By Document 03/21/18 15:45 DV [id number] 03/21/18 15:51 DV Psych/Mental Status: Flat Affect Debridement Note Post-Debridement Measurements/Treatment WC - Nurse 2 - General Ulcer CM Notes Start: 03/21/18 13:50 Freq: Status: Active Protocol: Activity Ty pe Activity Date Activity User E-Sign Co-Sign Detail Recorded Client Recorded Date Recorded By Document 03/21/18 15:45 DV [id number] 03/21/18 15:51 DV Wound Center Nurse 2 [...] Department Summary Result: Comments: See Note; NOTES: [facility] Medical Records Department [address] [place] [address] Emergency Department Summary 11/26/17 1320 MR#: [id number] Acct: [id number] Name: AJIT SOSA Rep #: [id number] : 1955 62 From: Blayne Caldwell DO [...] tremity cellulitis] This note was generated with OrderBorder dictation software. It may contain incorrect words, [...] your Primary Care Provider. Call [facility] ([phone]) or report to the closest Emergency Room. Call 911 if necess krish. 11/30/17 7205 <Electronically signed by Blayne Caldwell DO> Date Blayne Caldwell DO Cosigner Signature (If Indicated): Date _ CC: Dhara Taylor DO 26-Nov-2017 Venous Duplex Lower Extremity Result: Comments: See Note; NOTES: [facility] Cardiovascular Services [address] [place] [address] Venous Duplex US - Kane Extrem 11/26/17 1349 MR#: [id number] Acct: [id number] Name: AJIT SOSA Rep #: [id number] : 1955 62 From: Roger Carney MD [...] Date Dictated: 1349 Date Transcribed: 11/26/17 1522 Metal Off Bearer: Signed 26-Nov-2017 Discharge Instruction Result: Comments: See Note; NOTES: [facility] Medical Records Department [address] [place] [address] Discharge Instruction 11/26/17 1435 MR#: [id number] Acct: [id number] Name: Rolando SOSA Rep #: [id number] : 1955 62 From: Blayne Caldwell DO [...] your Primary Care Provider. Call [facility] Registry ([phone]) or report to the closest Emergency R oom. Call 911 if necessary. 11/26/17 1436 <Electronically signed by Blayne Caldwell DO> Date Blayne Caldwell DO Cosigner Signature (If Taylor cated): Date CC: Dhara Taylor DO 24-Aug-2017 Emergency Department Summary Result: Comments: See Note; NOTES: [facility] Medical Records Department [address] [place] [address] Emergency Department Summary 08/24/17 1433 MR#: [id number] Acct: [id number] Name: AJIT SOSA Rep #: [id number] : 1955 61 From: Hill Carrington DO [...] process. He reports he lives in a fdc and is receiving scheduled Risperdal and other [...] schizoaffective disorder This note was generated with SecureKey Technologiesation software. It may contain incorrect words, spel [...] your Primary Care Provider. Call [facility] ([phone]) or report to the closest Emergency Room. Call 911 if necessary. 08/24/17 1539 <Electronically signed by Hill Carrington DO> Date Hill Carrington DO Cosigner Signature (If Indicated): Date CC: Dhara Taylor DO 03-Apr-2017 Emergency Department Summary Result: Comments: See Note; NOTES: [facility] Medical Records Department [address] [place] [address] Emergency Department Summary MR#: [id number] Acct: [id number] Name: SOSAAJIT Obed Rep #: [id number] : 1955 61 From: Wero Keating MD PCP: Dhara Taylor DO Status: [facility] ER DATE OF SERVICE: 03/30/2017 CHIEF COMPLAINT: [...] Haldol and Cogentin, his night dose. Crisis business office representative came over, fully evaluated the patient and is having him transfe rred to [place], accepted by Dr. Huertas, appropriate emergency application, paperwork, labs and reports were given. The patient is stable for transfer. DIAGNOSIS: Acute paranoia. Obed Recinos C: Dhara Taylor DO T: DAVID JOB: [id number] 04/03/17805 <Electronically signed by Wero Keating MD> Date Wero Keating MD Cosigner Signature (If Indicated): Date CC: Dhara Taylor DO Date Dictated: 03/30/172204 Date Transcribed: 03/30/172204 Metal Off Bearer: Signed 02-Apr-2017 12 Lead Electrocardiogram Result: Comments: See Note; NOTES: [facility] Cardiovascular Services [address] [place] [address] 12 Lead EKG 03/30/172007 MR#: [id number] Acct: [id number] Name: AJIT SOSA Rep # : [id number] : 1955 61 From: Moises Richard MD [...] ECG Confirmed by MOISES RICHARD MD ([id number]), assistant production editor DANNA LIZAMA ([id number]) on 04/02/2017 2:26:02 PM Referred By: [facility] Confirmed By:MOISES RICHARD MD 04/02/17 142 Date Moises Abdul CC: Dhara Claudia DO Date Dictated: 03/30/172007 Date Transcribed: 03/30/172007 Metal Off Bearer: Signed 17-Oct-2016 Emergency Department Summary Result: Comments: See Note; NOTES: [facility] Medical Records Department [address] [place] [address] Emergency Department Summary MR#: [id number] Acct: [id number] Name: AJIT SOSA Rep #: [id number] : 1955 60 From: Prakash Loza MD [...] auditory or visual hallucinations. 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 Insight and judgment is poor. The remainder of the physical exam is unremarkable. [place] elaine see T-sheet for details. EMERGENCY DEPARTMENT COURSE: [...] DO Date Dictated: 10/09/16615 Date Transcribed: 10/09/16615 Metal Off Bearer: Signed 27-Sep-2016 12 Lead Electrocardiogram Result: Comments: See Note; NOTES: [facility] Cardiovascular Services [address] [place] [address] 12 Lead EKG 09/25/16 2218 MR#: [id number] Acct: [id number] Name: AJIT SOSA Rep # : [id number] : 1955 60 From: Reji Hill MD Attending Dr: Status: DEP ER Ordering Dr: Gabriela Barrett MD Date: 09/25/16 Location: ED Sex: M C Admitted: Test Reason : [facility] Blood Pressure : / mmHG Vent. Rate : 086 BPM Atrial Rate : 086 BPM P-R Int : 144 ms QRS Dur : 068 ms QT Int : 364 ms P-R-T Axes : 088 071 066 degrees QTc Int : 435 ms Sinus rhythm with marked sinus arrhythmia Nonspe cific ST abnormality Abnormal ECG Confirmed by REJI HILL ([id number]), assistant production editor DANNA LIZAMA ([id number]) on 09/27/2016 12:52:12 PM Referred By: MEG Confirmed By:REJI HLIL 09/27/16 1252 Date Reji Hill MD CC: Dhara Taylor DO Date Dictated: 09/25/162217 Date Transcribed: 09/25/162217 Metal Off Bearer: Signed 25-Sep-2016 12 Lead Electrocardiogram Result: Comments: See Note; NOTES: [facility] Cardiovascular Services [address] [place] [address] 12 Lead EKG 09/23/16 0143 MR#: [id number] Acct: [id number] Name: AJIT SOSA Rep # : [id number] : 1955 60 From: Ajit Benavidez MD [...] abnormality Confirmed by PRAMOD ALSTON, AJIT ([id number]), assistant production editor DANNA LIZAMA ([id number]) on 09/25/2016 10:18:06 AM Referred By: DR BUSTOS Confirmed By:AJIT BENAVIDEZ MD 09/25/16 1018 Date ___ Ajit Benavidez MD CC: Dhara Taylor DO Date Dictated: 09/23/16142 Date Transcribed: 09/23/16142 Metal Off Bearer: Signed 23-Sep-2016 Emergency Department Summary Result: Comments: See Note; NOTES: [facility] Medical Records Department [address] [place] [address] Emergency Department Summary MR#: [id number] Acct: [id number] Name: AJIT SOSA Rep #: [id number] : 1955 60 From: Quentin Bustos MD [...] chizophrenia. DISPOSITION: Discharged. Quentin Bustos MD T: [facility] JOB: [id number] 09/23/16 0539 <Electronically signed by Quentin Bustos MD> Date Quentin Bustso MD Cosigner Signature (If Indicated): Date CC: Dhara Taylor DO Date Dictated: 09/23/16238 Date Transcribed: 09/23/16238 Metal Off Bearer: Signed 23-Sep-2016 Discharge Instruction Result: Comments: See Note; NOTES: [facility] Medical Records Department [address] [place] [address] Discharge Instruction 09/23/16233 MR#: [id number] Acct: [id number] Name: Rolando SOSA Rep #: [id number] : 1955 60 From: Quentin Bustos MD [...] your Primary Care Provider. Call [facility] ([phone]) or report to the closest Emergency Room. Call 911 if necessary. 09/23/16 0308 <Electronically signed by Quentin Bustos MD> Date Quentin Bustos MD Cosigner Signature (If Indicated): Da te CC: Dhara Taylor DO 11-May-2016 Emergency Department Summary Result: Comments: See Note; NOTES: [facility] Medical Records Department [address] [place] [address] Emergency Department Summary MR#: [id number] Acct: [id number] Name: AJIT SOSA Rep #: [id number] : 1955 60 From: Fina Barry MD PCP: Dhara Taylor DO Status: DEP ER DATE OF SERVICE: 05/09/2016 CHIEF COMPLAINT: Depressed mental status. HISTORY OF PRESENT ILLNESS: This is a 60-year-old male with a history of schizophrenia and other mental health issues. He has a social studies department chair with him today, who typically sees him [...] Mental health evaluation. Fina valdovinos MD T: DAVID JOB: [id number] 05/11/16 0946 <Electronically signed by Fina Barry MD> Date Fina Barry MD Cosigner Signature (If Indicated): Date CC: Dhara Taylor DO Date Dictated: 05/09/16 1140 Date Transcribed: 05/09/16 1140 Metal Off Bearer: Signed 09-May-2016 Discharge Instruction Result: Comments: See Note; NOTES: [facility] Medical Records Department [address] [place] [address] Discharge Instruction 05/09/16 1130 MR#: [id number] Acct: [id number] Name: AJIT SOSA Rep #: [id number] : 1955 60 From: Fina Barry MD [...] problems, contact your doctor. Call [facility] ([phone]) or report to the closest Emergency Room. Call 911 if necessary. 05/09/16 1131 &am p;#60;Electronically signed by Fina Barry MD> Date Fina Barry MD Cosigner Signature (If Indicated): Date CC: Dhara Taylor DO 05-Aug-2015 EKG (12571) Comments: nsr no acutechg Result: [MEASUREMENTS ANALYSIS] Date of Test: 08/05/2015 11:03:50; Heart Rate: 63; OK Interval: 158; QRS: 90; QT Interval: 382; Corrected QT Interval (QTc): 387; P Wave Mobile: 65; QRS Wave Mobile: 69; T Wave Mobile: 90; Blood Pressure: 158/94 [ECG DIAGNOSTIC STATEMENTS] [...] kg/m2 Body Surface Area Calculated 2.11 m2 50-Vlg-842186:21 Comments: Rech 162/86 Temperature 97.3 f Pulse [...] kg/m2 Body Surface Area Calculated 2.1 m2 04-Avk-971630:58 Temperature 96.8 f Comments: Method: Temporal Pulse [...] kg/m2 Body Surface Area Calculated 1.99 m2 78-Rxx-607053:37 Pulse 93 /min Comments: Pattern: Regular Respiration [...] kg/m2 Body Surface Area Calculated 1.99 m2 59-Zyx-909848:09 Temperature 97.1 f Comments: Method: Temporal Pulse [...] 1.99 m2 Results Date Description Value Details 30-Lsr-493589:30 Basic Metabolic Profile (BMP) Comments: [facility] [address] [place], [place], [phone] GAP 7 (Normal) Range: 5-15 CO2 31.0 [...] A.D.A. criteria.Please note revised GLUCOSE reference range yzgidsszm74/02/2018. 67-Ylh-891963:21 Alanine Aminotransferas (SGPT) Comments: [facility] [address] [place], [place], [id number] ALT 14 U/L (Abnormal) Range: 16-61 98-Nob-699698:21 Ammonia Comments: [facility] [address] [place], [id number] AMMONIA 12.0 umol/L (Normal) Range: 11-32 04-Fgd-210718:21 AST(SGOT) Comments: [facility] [address] [place], [address] AST 19 U/L (Normal) Range: 15-37 69-Czx-751351:21 Platelet Count Comments: [address] [place], [address] PLT 182 K/mm3 (Normal) Range: 150-450 08-Ple-508001:21 Prolactin Comments: [address] [place], [address] PROLACTIN 20.8 ng/mL (Normal) Comments: NORMAL REFERENCE RANGES FEMALE NON- 2.2 - 30.3 ng/mL 8.1 - 347.6 ng/mL POST-MENOPAUSAL 0.7 - 3 1.5 ng/mL MALE 2.5 - 17.4 ng/mLNEW TEST METHOD AND REFERENCE RANGES FEBRUARY 25, 201223-Jun-201843-Wap-405530:21 Valproic Acid (Depakene) Level Comments: [facility] [address] [place], [id number] VALPROIC ACID 87 ug/mL (Normal) Range: 50-100 05-Mkq-539210:10 Microscopic Examination Comments: PATIENT WAS FASTINGPERFORMED BY: [facility] [id number] Bacteria None seen (Normal) Mucus Threads Present (Normal) Epithelial Cells (non renal) None seen {/hpf} (Normal) Range: 0 - 10 RBC 0-2 {/hpf} (Normal) Range: 0 - 2 WBC 0-5 {/hpf} (Normal) Range: 0 - 5 10-Jjl-025186:10 TSH (22053) Comments: PATIENT WAS FASTINGPERFORMED BY: [facility] [address] [facility] [id number] TSH 3.840 {uIU/mL} (Normal) Range: 0.450-4.500 86-Xkv-959602:10 URINALYSIS, W/ MICRO (76962) Comments: PATIENT WAS FASTINGPERFORMED BY: Catch ResourcesCommunity Medical CenterNmlsbv9697 [facility] [id number] Microscopic Examination See below: (Normal) Comments: Microscopic was indicated and was performed. Microscopic Examination MICRON (Normal) Comments: Microscopic follows if indicated. Nitrite, Urine Negative (Normal) Urobilinogen,Semi-Qn 0.2 mg/dL (Normal) Range: 0.2-1.0 Bilirubin Negative (Normal) Occult Blood Negative (Normal) Ketones Negative (Normal) Glucose Negative (Normal) Protein Negative (Normal) WBC Esterase Negative (Normal) Appearance Clear (Normal) Urine-Color Yellow (Normal) pH 7.0 (Normal) Range: 5.0-7.5 Specific [place] 1.017 (Normal) Range: 1.005-1.030 58-Xbc-016552:10 MICROALBUMIN: CREATININE RATIO Comments: PATIENT WAS FASTINGPERFORMED BY: TimeSight SystemsCommunity Medical CenterQubdbj4614 [facility] [id number] (10351) AND (32726) Alb/Creat Ratio 56.7 {mg/g_creat} (Abnormal) Range: 0.0-30.0 Albumin, Urine 51.0 ug/mL (Normal) Creatinine, Urine 90.0 mg/dL (Normal) 07-Doi-430526:10 LIPID PANEL (61378) Comments: PATIENT WAS FASTINGPERFORMED BY: C[facility] ResourcesCommunity Medical CenterYqfwxu2510 [facility] [id number] LDL/HDL Ratio 1.5 {ratio} (Normal) Range: 0.0-3.6 Comments: LDL/HDL Ratio Men Women 1/2 Avg.Risk 1.0 1.5 Av g.Risk 3.6 3.2 2X Avg.Risk 6.2 5.0 3X Avg.Risk 8.0 6.1 LDL Cholesterol Calc 67 mg/dL (Normal) Range: 0-99 VLDL Cholesterol Justo 26 mg/dL (Normal) Range: 5-40 HDL Cholesterol 44 mg/dL (Normal) Triglycerides 130 mg/dL (Normal) Range: 0-149 Cholesterol, Total 137 mg/dL (Normal) Range: 100-199 90-Oqj-38754:30 HgA1C , Office (84809) HgA1C , Office 5.8 % (Normal) Range: 4.6 - 7.1 58-Yvw-26359:30 Blood Glucose , Office (51023) Blood Glucose , Office 123 (Normal) 25-Kxq-618047:54 Valproic Acid (65815) Comments: fax results [phone]; PATIENT NOT FASTINGPERFORMED BY: [facility] Hykhls5659 [facility] [id number] Valproic Acid (Depakote)(R),S 67 ug/mL (Normal) Range: 50-100 Comments: Detection Limit = 4 <4 indicates None Detected . Toxicity may occur at levels of 100-500. Measurements of free unbound valproic acid may improve the assess- ment of clinical response. 58-Sut-855647:54 CBC WITH MANUAL DIFF Comments: fax results [phone]; PATIENT NOT FASTINGPERFORMED BY: [facility] Tnnxrm7257 [facility] [id number] Information: NURSE DRAW (25543) Immature Grans (Abs) 0.0 {x10E3/uL} (Normal) Range: [...] 4.14-5.80 WBC 7.1 {x10E3/uL} (Normal) Range: 3.4-10.8 83-Hbk-025678:54 Metabolic Panel, Comprehensive Comments: fax results [phone]; PATIENT NOT FASTINGPERFORMED BY: [facility] Ddpebg5916 [facility] [id number] (06834) ALT (SGPT) 7 [iU]/L (Normal) Range: 0-44 [...] 8-27 Glucose 107 mg/dL (Abnormal) Range: 65-99 36-Xrj-030841:54 AMMONIA (89454) Comments: fax results [phone]; PATIENT NOT FASTINGPERFORMED BY: [facility] Bqrlil9032 [facility] [id number] Ammonia, Plasma 53 ug/dL (Normal) Range: 27-102 0-Kxl-410340:17 Bedside Glucose Comments: [facility] LaboratoryPoint of Dpwc[address] [place] [address] BEDSIDE GLU 74 mg/dL (Normal) Range: 70-110 Comments: MANAGEMENT OF PATIENT CARE PER NURSING PROTOCOL 7-Zep-390446:11 Urinalysis, Complete Comments: Order Date: 05/08/18How was Urine Obtained? CLEAN [facility] Owumdiqeax[address] [place], [address] MUCUS, URINE 0 SEEN {/hpf} [...] (Normal) CLARITY Clear (Normal) COLOR Yellow (Normal) 4-Lhs-609057:11 Urine Drug Screen (VISTA) Comments: [facility] [address]nyequggj[address] [place], [address] THC NEGATIVE (Normal) PCP NEGATIVE [...] TESTING MUST BE ORDERED SEPARATELY. USE TESTMNEMONIC: [facility] :56 Alcohol, Blood (Medical)-Serum Comments: [facility] Jtahhiwbei[address] [place], [place], [id number] SERUM ETOH 5.0 mg/dL (Normal) Comments: The serum:whole blood ethanol ratio is approximately 1.14and varies slightly with hematocrit.Medical Alcohol reference interval and critical value innon-tolerant individuals; 50 - 100 Impairment 100 Intoxication 100 - 250 Severe Poisoning 250 - 400 Deep/possible fatal coma :56 Basic Metabolic Profile (BMP) Comments: [facility] [address] [place], [place], [address] GAP 3 (Abnormal) Range: 5-15 CO2 32.0 [...] Comments: Please note revised GLUCOSE reference range nodzqyfvk48/02/2018. 5-Xdq-902822:56 CBC W/Diff, Automated Comments: [facility] Ddlnerzihx28[address] [place], [address] Absolute Lymph 1.81 {X10_3/ul} (Normal) [...] Range: 4.4-11.0 :56 Partial Thromboplast Time Comments: [facility] [address]pqsyyh[address] [place], [address] PTT 30.4 s (Normal) Range: 24.1-36.2 :56 Prothrombin Time w/INR Comments: [facility] G[address]yjtqhvj[address] [place] [place], [address] INR 1.2 (Normal) PROTIME 15.4 s (Abnormal) Range: 11.7-14.9 4-Jju-008988:56 Troponin-I Comments: [facility] [address] [place], [address] TROPONIN-I < 0.015 ng/mL (Normal) Comments: TROPONIN-I EXPECTED VALUES <0.045 Negative 0.045 - 0.590 Consistent with Cardiac Damage > OR = 0.600 Critical Value Not every elevated troponin is indicative of WA. T hesevalues should be used with clinical judgement in examiningthe patient's clinical picture for diagnosis. To establisha diagnosis of WA versus myocardial injury, there must be ademonstrated rise and/ or fall in the troponin values, inaddition to ischemic symptoms, EKG changes, new regionalwall motion abnormality, and/or angiographical evidence. PLEASE NOTE: REFERENCE RANGES EDITED 02/17/1808-May-20184-Pig-436054:56 Valproic Acid (Depakene) Level Comments: [facility] Hzzodofgku64[address] [place], [address] VALPROIC ACID 85 ug/mL (Normal) Range: 50-100 27-Zmy-564969:00 Alcohol, Blood (Medical)-Serum Comments: [facility] Fvkszndlkj3[address] [place], [address] SERUM ETOH 10.0 mg/dL (Normal) Comments: The serum:whole blood ethanol ratio is approximately 1.14and varies slightly with hematocrit.Medical Alcohol reference interval and critical value innon-tolerant individuals; 50 - 100 Impairment 100 Intoxication 100 - 250 Severe Poisoning 250 - 400 Deep/possible fatal coma 82-Tqc-564399:00 Basic Metabolic Profile (BMP) Comments: [facility] Nyjnrkiinm[address] [place], [address] GAP 5 (Normal) Range: 5-15 CO2 30.0 [...] A.D.A. criteria.Please note revised GLUCOSE reference range kenvzeuis46/02/2018. 65-Rak-415060:00 CBC W/Diff, Automated Comments: [facility] [address]qxisrib4[address] [place], [address] Absolute Lymph 1.48 {X10_3/ul} (Normal) Range: 0.83-4.51 [...] 4.6-6.2 WBC 6.1 K/mm3 (Normal) Range: 4.4-11.0 88-Pwb-324483:00 Liver Profile Comments: [facility] Eqvbuclbks[address] [place], [place], [address] D BILI 0.14 mg/dL (Normal) Range: 0.00-0.30 T BILI 0.40 mg/dL (Normal) Range: 0.20-1.00 ALT 15 U/L (Abnormal) Range: 16-61 ALK P 71 U/L (Normal) Range: 45-117 AST 15 U/L (Normal) Range: 15-37 GLOB 2.6 g/dL (Normal) Range: 2.2-4.2 ALB 3.3 g/dL (Normal) Range: 3.2-5.0 T PROT 5.9 g/dL (Abnormal) Range: 6.4-8.2 04-Mnn-336981:00 Troponin-I Comments: [facility] I[address]avznon[address] [place], [place], [address] TROPONIN-I < 0.015 ng/mL (Normal) Comments: TROPONIN-I EXPECTED VALUES <0.045 Negative 0.045 - 0.590 Consistent with Cardiac Damage > OR = 0.600 Critical Value Not every elevated troponin is indicative of WA. T hesevalues should be used with clinical judgement in examiningthe patient's clinical picture for diagnosis. To establisha diagnosis of WA versus myocardial injury, there must be ademonstrated rise and/ or fall in the troponin values, inaddition to ischemic symptoms, EKG changes, new regionalwall motion abnormality, and/or angiographical evidence. PLEASE NOTE: REFERENCE RANGES EDITED 02/17/1802-May-201887-Thy-742067:00 Urinalysis, Complete Comments: Order Date: 05/02/18How was Urine Obtained? [facility] Ieqtkqstkx[address] [place], [place], [id number] MUCUS, URINE 0 SEEN {/hpf} (Normal) BACTERIA [...] (Normal) CLARITY Clear (Normal) COLOR Yellow (Normal) 86-Iwt-917531:00 Urine Drug Screen (VISTA) Comments: Order Date: 05/02/18[facility] [address]abqkgpjuo[address] [place], [place], [address] THC NEGATIVE (Normal) PCP NEGATIVE (Normal) OPIATES [...] TESTING MUST BE ORDERED SEPARATELY. USE TESTMNEMONIC: [facility] 38-Lsc-641477:43 Valproic Acid (Depakene) Level Comments: [facility] Qmyutabrij06[address] [place], [place], [address] VALPROIC ACID 63 ug/mL (Normal) Range: 50-100 14-Tmw-731951:20 Basic Metabolic Profile (BMP) Comments: [facility] Quaxgifcmc15[address] [place], [address] GAP 7 (Normal) Range: 5-15 CO2 28.0 [...] Comments: Please note revised GLUCOSE reference range lulatubbe29/02/2018. 96-Uya-967594:20 CBC W/Diff, Automated Comments: [facility] Xxouswqhfo[address] [place], [address] Absolute Lymph 1.48 {X10_3/ul} (Normal) Range: 0.83-4.51 [...] 4.6-6.2 WBC 6.7 K/mm3 (Normal) Range: 4.4-11.0 :20 Partial Thromboplast Time Comments: [address] [place], [place], [address] PTT 30.6 s (Normal) Range: 24.1-36.2 48-Qux-290983:20 Prothrombin Time w/INR Comments: [address] [place], [place], [address] INR 1.1 (Normal) PROTIME 14.4 s (Normal) Range: 11.7-14.9 98-Vrh-625658:20 Troponin-I Comments: [address], [address] TROPONIN-I < 0.015 ng/mL (Normal) Comments: TROPONIN-I EXPECTED VALUES <0.045 Negative 0.045 - 0.590 Consistent with Cardiac Damage > OR = 0.600 Critical Value Not every elevated troponin is indicative of WA. T hesevalues should be used with clinical judgement in examiningthe patient's clinical picture for diagnosis. To establisha diagnosis of WA versus myocardial injury, there must be ademonstrated rise and/ or fall in the troponin values, inaddition to ischemic symptoms, EKG changes, new regionalwall motion abnormality, and/or angiographical evidence. PLEASE NOTE: REFERENCE RANGES EDITED 02/17/1816-Apr-201805-Dyb-822113:11 Bedside Glucose Comments: [facility] LaboratoryPoint of [address] [place] [address] BEDSIDE GLU 84 mg/dL (Normal) Range: 70-110 Comments: MANAGEMENT OF PATIENT CARE PER NURSING PROTOCOL 24-Obq-881667:09 Anaerobic & Aerobic Comments: Left Leg; PATIENT NOT FASTINGPERFORMED BY: LabCoCommunity Medical CenterFzluhg0120 [facility] [id number] Information: LEFT LEG SRC:LG Culture (83970) Result 1 Mixed skin elvira (Normal) Aerobic Culture Final report (Normal) Result 1 NANG72 (Normal) Comments: No anaerobic growth in 72 hours. Anaerobic Culture Final report (Normal) 51-Sww-80992:17 Alanine Aminotransferas (SGPT) Comments: [address] [place], [place], [address](544) ALT 15 U/L (Abnormal) Range: 16-61 58-Pww-82664:17 AST(SGOT) Comments: [address] [place], [address] AST 20 U/L (Normal) Range: 15-37 11-Fsq-83846:17 Platelet Count Comments: [address] [place], [address] PLT 178 K/mm3 (Normal) Range: 150-450 26-Eal-96043:17 Valproic Acid (Depakene) Level Comments: [address] [place], [address] VALPROIC ACID 73 ug/mL (Normal) Range: 50-100 74-Vgh-220066:05 Basic Metabolic Profile (BMP) Comments: [address] [place], [address] GAP 4 (Abnormal) Range: 5-15 CO2 33.0 [...] Comments: Please note revised GLUCOSE reference range bcsjuibtd56/02/2018. 86-Sen-882096:05 CBC W/Diff, Automated Comments: [facility] [address]mlbq[address] [place], [place], [address] Absolute Lymph 1.28 {X10_3/ul} (Normal) Range: 0.83-4.51 [...] 4.6-6.2 WBC 6.7 K/mm3 (Normal) Range: 4.4-11.0 51-Tsz-772930:02 Microscopic Examination Comments: PATIENT WAS FASTINGPERFORMED BY: [employer] [facility] [id number] Bacteria Few (Normal) Mucus Threads Present (Normal) Epithelial Cells (non renal) None seen {/hpf} (Normal) Range: 0 - 10 RBC 0-2 {/hpf} (Normal) Range: 0 - 2 WBC 0-5 {/hpf} (Normal) Range: 0 - 5 :02 TSH (24729) Comments: PATIENT WAS FASTINGPERFORMED BY: [employer] Wbvpbp6925 [facility] [id number] TSH 3.530 {uIU/mL} (Normal) Range: 0.450-4.500 :02 URINALYSIS, W/ MICRO (12660) Comments: PATIENT WAS FASTINGPERFORMED BY: [employer] Hlaxum0893 [facility] [id number] Microscopic Examination See below: (Normal) Comments: Microscopic was indicated and was performed. Microscopic Examination MICRON (Normal) Comments: Microscopic follows if indicated. Nitrite, Urine Negative (Normal) Urobilinogen,Semi-Qn 0.2 mg/dL (Normal) Range: 0.2-1.0 Bilirubin Negative (Normal) Occult Blood Negative (Normal) Ketones Negative (Normal) Glucose Negative (Normal) Protein Trace (Normal) WBC Esterase Negative (Normal) Appearance Clear (Normal) Urine-Color Yellow (Normal) pH 7.0 (Normal) Range: 5.0-7.5 Specific [place] 1.015 (Normal) Range: 1.005-1.030 :02 MICROALBUMIN: CREATININE RATIO Comments: PATIENT WAS FASTINGPERFORMED BY: [employer] Ljncie3298 [facility] [id number] (78743) AND (73799) Alb/Creat Ratio 167.0 {mg/g_creat} (Abnormal) Range: 0.0-30.0 Albumin, Urine 110.4 ug/mL (Normal) Creatinine, Urine 66.1 mg/dL (Normal) 10-Fin-106128:02 METABOLIC PANEL, COMPREHENSIVE Comments: PATIENT WAS FASTINGPERFORMED BY: ABHINAV Right9070 [facility] [id number] (99335) ALT (SGPT) 16 [iU]/L (Normal) Range: 0-44 [...] Glucose, Serum 101 mg/dL (Abnormal) Range: 65-99 34-Uly-239860:02 LIPID PANEL (13347) Comments: PATIENT WAS FASTINGPERFORMED BY: [employer]6370 [facility] [id number] LDL/HDL Ratio 1.3 {ratio_units} (Normal) Range: 0.0-3.6 Comments: LDL/HDL Ratio Men Women 1/2 Avg.Risk 1.0 1.5 Av g.Risk 3.6 3.2 2X Avg.Risk 6.2 5.0 3X Avg.Risk 8.0 6.1 LDL Cholesterol Calc 64 mg/dL (Normal) Range: 0-99 VLDL Cholesterol Justo 16 mg/dL (Normal) Range: 5-40 HDL Cholesterol 50 mg/dL (Normal) Triglycerides 79 mg/dL (Normal) Range: 0-149 Cholesterol, Total 130 mg/dL (Normal) Range: 100-199 43-Idf-095558:02 CBC W/AUTO DIFF WBC (48491) Comments: PATIENT WAS FASTINGPERFORMED BY: [facility] Svejlp6702 [facility] [id number] Immature Grans (Abs) 0.0 {x10E3/uL} (Normal) Range: [...] (Normal) Range: 3.4-10.8 :52 HgA1C , Office (77359) HgA1C , Office 5.8 % (Normal) Range: 4.6 - 7.1 :52 Blood Glucose , Office (37964) Blood Glucose , Office 110 (Normal) :01 Microscopic Examination Comments: PATIENT NOT FASTINGPERFORMED BY: [facility] Cmmmum3898 [facility] [id number] Bacteria Few (Normal) Mucus Threads Present (Normal) Cast Type Hyaline casts (Normal) Casts Present {/lpf} (Abnormal) Epithelial Cells (non renal) None seen {/hpf} (Normal) Range: 0 - 10 RBC 0-2 {/hpf} (Normal) Range: 0 - 2 WBC 0-5 {/hpf} (Normal) Range: 0 - 5 :40 Urine Drug Screen (VISTA) Comments: [facility] Rusumdvyvl[address] [place], [place], [address] THC NEGATIVE (Normal) PCP NEGATIVE (Normal) OPIATES [...] MUST BE ORDERED SEPARATELY. USE TESTMNEMONIC: [facility] 89-Mfd-969085:06 Alcohol, Blood (Medical)-Serum Comments: [facility] [address]qudtwloa[address] [place], [place], [address] SERUM ETOH < 3.0 mg/dL (Normal) Comments: The serum:whole blood ethanol ratio is approximately 1.14and varies slightly with hematocrit.Medical Alcohol reference interval and critical value innon-tolerant individuals; 50 - 100 Impairment 100 Intoxication 100 - 250 Severe Poisoning 250 - 400 Deep/possible fatal coma 85-Fiy-067693:06 Basic Metabolic Profile (BMP) Comments: [facility] [address]afdfvbcps[address] [place], [place], [address] GAP 8 (Normal) Range: 5-15 CO2 29.0 [...] A.D.A. criteria. :06 CBC W/Diff, Automated Comments: [facility] Q[address]jgdiartz[address] [place], [address] Absolute Lymph 1.12 {X10_3/ul} (Normal) Range: 0.83-4.51 [...] 4.6-6.2 WBC 8.7 K/mm3 (Normal) Range: 4.4-11.0 15-Kxv-434957:06 Valproic Acid (Depakene) Level Comments: [facility] Zualmzoiym77[address] [place], [place], [address] VALPROIC ACID 49 ug/mL (Abnormal) Range: 50-100 3-Iuj-553165:29 HGB A1C (08450) HGB A1C 5.9 % (Normal) Range: 4.6 - 7.1 92-Tcu-249376:57 TSH (64572) Comments: PATIENT WAS FASTINGPERFORMED BY: ABHINAV [facility] Drkdfv8938 [facility] [id number] TSH 3.020 {uIU/mL} (Normal) Range: 0.450-4.500 08-Ccr-253593:01 URINALYSIS, W/ MICRO (37394) Comments: PATIENT NOT FASTINGPERFORMED BY: ABHINAV [employer], formerly e-academyCovenant Medical Center6370 [facility] [id number] Microscopic Examination See below: (Normal) Comments: Microscopic was indicated and was performed. Microscopic Examination MICRON (Normal) Comments: Microscopic follows if indicated. Nitrite, Urine Negative (Normal) Urobilinogen,Semi-Qn 0.2 mg/dL (Normal) Range: 0.2-1.0 Bilirubin Negative (Normal) Occult Blood Negative (Normal) Ketones Negative (Normal) Glucose Negative (Normal) Protein Negative (Normal) WBC Esterase Negative (Normal) Appearance Clear (Normal) Urine-Color Yellow (Normal) pH 6.5 (Normal) Range: 5.0-7.5 Specific [place] 1.010 (Normal) Range: 1.005-1.030 24-Uus-056965:01 MICROALBUMIN: CREATININE RATIO Comments: PATIENT NOT FASTINGPERFORMED BY: [facility] ResourcesCommunity Medical CenterRzzzyc1169 [facility] [id number] (43307) AND (88017) Microalb/Creat Ratio 43.2 {mg/g_creat} (Abnormal) Range: 0.0-30.0 Microalbumin, Urine 20.9 ug/mL (Normal) Creatinine, Urine 48.4 mg/dL (Normal) 77-Dkm-024597:57 METABOLIC PANEL, COMPREHENSIVE Comments: PATIENT WAS FASTINGPERFORMED BY: [facility]6370 [facility] [id number] (19970) ALT (SGPT) 6 [iU]/L (Normal) Range: 0-44 [...] Glucose, Serum 79 mg/dL (Normal) Range: 65-99 33-Hwh-898315:57 LIPID PANEL (26539) Comments: PATIENT WAS FASTINGPERFORMED BY: [employer]70 [facility] [id number] LDL/HDL Ratio 1.2 {ratio_units} (Normal) Range: 0.0-3.6 Comments: LDL/HDL Ratio Men Women 1/2 Avg.Risk 1.0 1.5 Av g.Risk 3.6 3.2 2X Avg.Risk 6.2 5.0 3X Avg.Risk 8.0 6.1 LDL Cholesterol Calc 51 mg/dL (Normal) Range: 0-99 VLDL Cholesterol Justo 17 mg/dL (Normal) Range: 5-40 HDL Cholesterol 42 mg/dL (Normal) Triglycerides 84 mg/dL (Normal) Range: 0-149 Cholesterol, Total 110 mg/dL (Normal) Range: 100-199 87-Bpd-634533:57 CBC W/AUTO DIFF WBC (80737) Comments: PATIENT WAS FASTINGPERFORMED BY: KynogonCoPivotstreamLujvzy6543 [facility] GamingAt[facility] [id number] Immature Grans (Abs) 0.0 {x10E3/uL} (Normal) Range: [...] 4.14-5.80 WBC 8.5 {x10E3/uL} (Normal) Range: 3.4-10.8 7-Csx-517161:23 Blood Glucose , Office (66594) Blood Glucose , Office 106 (Normal) :31 PSA (PROSTATE SPECIFIC Comments: PATIENT WAS FASTINGPERFORMED BY: [facility]6370 [facility] [id number] ANTIGEN) (V76.44) Prostate Specific Ag, 1.6 ng/mL (Normal) Range: 0.0-4.0 Serum Comments: [employer] ECLIA methodology. .According to the [place] [employer], Serum PSA shoulddecrease and remain at undetectable levels after radicalprostatectomy. The AUA defines biochemical recurrence as an initialPSA value 0.2 ng/mL or greater followed by a subsequent confirmatoryPSA value 0.2 ng/mL or greater.Values obtained with d ifferent assay methods or kits cannot be usedinterchangeably. Results cannot be interpreted as absolute evidenceof the presence or absence of malignant disease. 86-Qwn-294719:31 HGB A1C (68806) Comments: PATIENT WAS FASTINGPERFORMED BY: [facility] Omyrbv1322 [facility] [place] [id number] Hemoglobin A1c 6.0 % (Abnormal) Range: 4.8-5.6 Comments: . Pre-diabetes: 5.7 - 6.4 Diabetes: >6.4 Glycemic control for adults with diabetes: <7.0 85-Ljt-537844:31 TSH (THYROID STIMULATING Comments: PATIENT WAS FASTINGPERFORMED BY: [facility] Wbzhln5603 [facility] [place] [id number] HORMONE) (06540) TSH 2.990 {uIU/mL} (Normal) Range: 0.450-4.500 49-Dce-132402:31 CALCIFEDIOL (01436) Comments: PATIENT WAS FASTINGPERFORMED BY: [facility]The [facility] Tilqre8295 [facility] [place] [id number] Vitamin D, 25-Hydroxy 29.6 ng/mL (Abnormal) Range: 30.0-100.0 Comments: Vitamin D deficiency has been defined by the [place] ofMedicine and an Endocrine Society practice guideline as alevel of serum 25-OH vitamin D less than 20 ng/mL (1,2).The Endocrine Society went on to further define vitamin Dinsufficiency as a level between 21 and 29 ng/mL (2).1. IOM ([place] of Medicine). 2010. Dietary reference intakes for calcium and D. [place]: The National Academies Press.2. Forrest MF, [place], Lexi ESPINOZA, et al. Evaluation, treatment, and prevention of vitamin D deficiency: an Endocrine Society clinical practice guideline. JCEM. 2010; 96(7):1911-30. 16-Elp-150186:31 MICROALBUMIN: CREATININE RATIO Comments: PATIENT WAS FASTINGPERFORMED BY: [facility]The [facility] Ueyfhs6753 [facility] [place] [id number] (62292) AND (88600) Microalb/Creat Ratio 408.1 {mg/g_creat} (Abnormal) Range: 0.0-30.0 Microalbumin, Urine 85.3 ug/mL (Normal) Creatinine, Urine 20.9 mg/dL (Normal) 58-Vzx-782205:31 METABOLIC PANEL, COMPREHENSIVE Comments: PATIENT WAS FASTINGPERFORMED BY: [employer] formerly [employer]yCo Ehggue4796 [facility] [id number] (48484) ALT (SGPT) 9 [iU]/L (Normal) Range: 0-44 [...] Glucose, Serum 117 mg/dL (Abnormal) Range: 65-99 27-Kor-078996:31 LIPID PANEL (93822) Comments: PATIENT WAS FASTINGPERFORMED BY: [employer], formerly e-academyCoCommunity Medical CenterZoipxb2316 [facility] [id number] LDL/HDL Ratio 1.1 {ratio_units} (Normal) Range: 0.0-3.6 Comments: LDL/HDL Ratio Men Women 1/2 Avg.Risk 1.0 1.5 Av g.Risk 3.6 3.2 2X Avg.Risk 6.2 5.0 3X Avg.Risk 8.0 6.1 LDL Cholesterol Calc 68 mg/dL (Normal) Range: 0-99 VLDL Cholesterol Justo 18 mg/dL (Normal) Range: 5-40 HDL Cholesterol 63 mg/dL (Normal) Triglycerides 88 mg/dL (Normal) Range: 0-149 Cholesterol, Total 149 mg/dL (Normal) Range: 100-199 46-Vjp-916763:31 CBC with auto diff (64388) Comments: PATIENT WAS FASTINGPERFORMED BY: LabCoCommunity Medical CenterZjinqw9870 [facility] [id number] Immature Grans (Abs) 0.0 {x10E3/uL} (Normal) Range: [...] 4.14-5.80 WBC 6.4 {x10E3/uL} (Normal) Range: 3.4-10.8 38-Ipo-947643:00 Urine Drug Screen (VISTA) Comments: [facility] [address]rwjkcmaq[address] [place], [place], [address] THC NEGATIVE (Normal) PCP NEGATIVE (Normal) OPIATES [...] TESTING MUST BE ORDERED SEPARATELY. USE TESTMNEMONIC: [facility] 66-Yik-319715:45 Alcohol, Blood (Medical)-Serum Comments: [facility] Bhwixwghly[address] [place], [place], [address] SERUM ETOH < 3.0 mg/dL (Normal) Comments: The serum:whole blood ethanol ratio is approximately 1.14and varies slightly with hematocrit.Medical Alcohol reference interval and critical value innon-tolerant individuals; 50 - 100 Impairment 100 Intoxication 100 - 250 Severe Poisoning 250 - 400 Deep/possible fatal coma :45 Basic Metabolic Profile (BMP) Comments: [facility] [address] [place], [place], [address] GAP 1 (Abnormal) Range: 5-15 CO2 31.0 [...] <126 mg/dLsuggests IMPAIRED HOMEOSTASIS per A.D.A. criteria. 26-Fhs-889655:45 CBC W/Diff, Automated Comments: [facility] Riusictako[address] [place], [place], [address] Absolute Lymph 1.30 {X10_3/ul} (Normal) Range: 0.83-4.51 [...] Range: 4.4-11.0 :44 Alcohol, Blood (Medical)-Serum Comments: [facility] Cruzkuyrbb[address] [place], [place], [id number] SERUM ETOH < 3.0 mg/dL (Normal) Comments: The serum:whole blood ethanol ratio is approximately 1.14and varies slightly with hematocrit.Medical Alcohol reference interval and critical value innon-tolerant individuals; 50 - 100 Impairment 100 Intoxication 100 - 250 Severe Poisoning 250 - 400 Deep/possible fatal coma :44 CBC W/Diff, Automated Comments: [facility] Fwpavdhsln3234 [facility] [address]. [place], [place], [id number] Absolute Lymph 1.10 {X10_3/ul} (Normal) Range: 0.83-4.51 [...] Range: 4.4-11.0 :44 Comprehensive Metabolic Profil Comments: [facility] Gpxhuk[address]hh[address] [place], [place], [phone] GAP 1 (Abnormal) Range: 5-15 CO2 31.0 [...] 70-110 :44 Urine Drug Screen (VISTA) Comments: [facility] Rmvjsdmqvc03[address] [place], [place], [address] THC NEGATIVE (Normal) PCP NEGATIVE (Normal) OPIATES [...] TESTING MUST BE ORDERED SEPARATELY. USE TESTMNEMONIC: [facility] :44 Valproic Acid (Depakene) Level Comments: [facility] Smngahnjps[address] [place], [place], [id number] VALPROIC ACID < 3 ug/mL (Abnormal) Range: 50-100 29-Gqd-745008:53 CBC, PLATELETS & MANUAL Comments: PATIENT NOT FASTINGPERFORMED BY: [facility] Orucac4232 [facility] [id number] Information: [id number] DIFF ([id number]) Immature Grans (Abs) 0.0 {x10E3/uL} (Normal) Range: [...] Range: 3.4-10.8 :56 Alcohol, Blood (Medical)-Serum Comments: [facility] Uetckzxvnc[address]. [place], [place], [id number] SERUM ETOH 5.0 mg/dL (Normal) Comments: The serum:whole blood ethanol ratio is approximately 1.14and varies slightly with hematocrit.Medical Alcohol reference interval and critical value innon-tolerant individuals; 50 - 100 Impairment 100 Intoxication 100 - 250 Severe Poisoning 250 - 400 Deep/possible fatal coma 09-May-20169:56 Basic Metabolic Profile (BMP) Comments: [facility] Aglpprxduh62[address] [place], [place], [address] GAP 6 (Normal) Range: 5-15 CO2 29.0 [...] A.D.A. criteria. 09-May-20169:56 CBC W/Diff, Automated Comments: [facility] I[address]xmpmsh47[address] [place], [address] Absolute Lymph 1.36 {X10_3/ul} (Normal) Range: 0.83-4.51 [...] 4.6-6.2 WBC 7.4 K/mm3 (Normal) Range: 4.4-11.0 3-Aug-96784:56 Valproic Acid (Depakene) Level Comments: [facility] Gaw[address]hjvhb[address] [place], [address] VALPROIC ACID 33 ug/mL (Abnormal) Range: 50-100 :50 Urine Drug Screen (VISTA) Comments: [facility] Uzbinopfvo15[address] [place], [address] THC NEGATIVE (Normal) PCP NEGATIVE (Normal) OPIATES [...] TESTING MUST BE ORDERED SEPARATELY. USE TESTMNEMONIC: [facility] :53 CBC, PLATELETS & MANUAL Comments: PATIENT NOT FASTINGPERFORMED BY: [facility] CenterRmilgz3001 [facility] [id number] Information: [id number] DIFF ([id number]) Immature Grans (Abs) 0.0 {x10E3/uL} (Normal) Range: [...] 4.14-5.80 WBC 6.7 {x10E3/uL} (Normal) Range: 3.4-10.8 37-Ngb-786822:56 CBC, PLATELETS & MANUAL Comments: PATIENT NOT FASTINGPERFORMED BY: [facility] Dugqql1630 [facility] [id number] Information: [id number] DIFF ([id number]) Immature Grans (Abs) 0.0 {x10E3/uL} (Normal) Range: [...] 4.14-5.80 WBC 7.7 {x10E3/uL} (Normal) Range: 3.4-10.8 58-Fka-795357:28 Metabolic Panel, Comprehensive Comments: PATIENT NOT FASTINGPERFORMED BY: [facility] Aufjdp1169 [facility] [id number] ([id number]) ALT (SGPT) 7 [iU]/L (Normal) Range: 0-44 [...] Glucose, Serum 99 mg/dL (Normal) Range: 65-99 75-Iiy-429860:28 CBC, Platelets & Auto Comments: PATIENT NOT FASTINGPERFORMED BY: [employer] Qqbcne1829 [facility] [id number] Information: [id number] Diff ([id number]) Immature Grans (Abs) 0.0 {x10E3/uL} (Normal) Range: [...] 4.14-5.80 WBC 6.9 {x10E3/uL} (Normal) Range: 3.4-10.8 09-Hcf-888762:28 TSH ([id number]) Comments: PATIENT NOT FASTINGPERFORMED BY: [facility]6370 [facility] [id number] TSH 3.600 {uIU/mL} (Normal) Range: 0.450-4.500 :06 HgA1C , Office (87083) Comments: 5.9 HgA1C , Office 5.9 % (Normal) Range: 4.6 - 7.1 81-Daj-428628:06 Blood Glucose , Office (83727) Blood Glucose , Office 91 (Normal) 51-Qxy-192680:06 Urinalysis, Office (59824) UA - LEUKOCYTE ESTERASE Negative (Normal) UA - NITRITE Negative (Normal) URINE UROBILINGN SALMA TIMED Normal mg/dL (Normal) UA - PROTEIN Negative mg/dL (Normal) UA - PH 6 (Abnormal) UA - BLOOD Negative (Normal) UA - SPECIFIC GRAVITY 1.010 (Normal) UA - KETONES Negative mg/dL (Normal) UA - BILIRUBIN Negative (Normal) UA - GLUCOSE Negative (Normal) 17-Dha-437399:06 CBC, PLATELETS & MANUAL Comments: PATIENT NOT FASTINGPERFORMED BY: [facility]Community [facility] CenterVblnnl0770 [facility] [id number] Information: [id number], [id number] DIFF ([id number]) Immature Grans (Abs) 0.0 {x10E3/uL} (Normal) Range: [...] 4.14-5.80 WBC 6.1 {x10E3/uL} (Normal) Range: 3.4-10.8 23-Lxy-896136:50 CBC, PLATELETS & MANUAL Comments: PATIENT NOT FASTINGPERFORMED BY: [facility] CenterAnzfvv3301 [facility] [id number] Information: [id number] DIFF ([id number]) Immature Grans (Abs) 0.0 {x10E3/uL} (Normal) Range: [...] & MANUAL Comments: PATIENT NOT FASTINGPERFORMED BY: [facility] Yzcdem3810 [facility] [id number] Information: [id number] DIFF ([id number]) Immature Grans (Abs) 0.0 {x10E3/uL} (Normal) Range: [...] 4.14-5.80 WBC 8.2 {x10E3/uL} (Normal) Range: 3.4-10.8 96-Yqs-993031:42 CBC, PLATELETS & MANUAL Comments: PATIENT NOT FASTINGPERFORMED BY: [facility] Zblhay9164 [facility] [id number] Information: [id number] DIFF ([id number]) Immature Grans (Abs) 0.0 {x10E3/uL} (Normal) Range: [...] DNA by PCR Comments: Specimen Source? [facility], [facility] Eimdzfobbp17[address] [place], [place], [address] SA RESULT NEGATIVE (Normal) MRSA RESULT Negative (Normal) 51-Kdq-152732:53 CBC, PLATELETS & MANUAL Comments: PATIENT NOT FASTINGPERFORMED BY: [facility]6370 [facility] [id number] Information: [id number] DIFF ([id number]) Immature Grans (Abs) 0.0 {x10E3/uL} (Normal) Range: [...] 4.14-5.80 WBC 10.1 {x10E3/uL} (Normal) Range: 3.4-10.8 37-Ioj-198113:13 PSA (PROSTATE SPECIFIC Comments: PATIENT NOT FASTINGPERFORMED BY: [facility]6370 [facility] [id number] ANTIGEN) (V76.44) Prostate Specific Ag, 1.2 ng/mL (Normal) Range: 0.0-4.0 Serum Comments: [employer]IA methodology. .According to the [place] [employer], Serum PSA shoulddecrease and remain at undetectable levels after radicalprostatectomy. The AUA defines biochemical recurrence as an initialPSA value 0.2 ng/mL or greater followed by a subsequent confirmatoryPSA value 0.2 ng/mL or greater.Values obtained with d ifferent assay methods or kits cannot be usedinterchangeably. Results cannot be interpreted as absolute evidenceof the presence or absence of malignant disease. 28-Gxx-258816:13 Hemoglobin Glyclated (HGB A1C) Comments: PATIENT NOT FASTINGPERFORMED BY: [employer] Xvleij5212 [place] [id number] ([id number]) Hemoglobin A1c 6.0 % (Abnormal) Range: 4.8-5.6 Comments: . Pre-diabetes: 5.7 - 6.4 Diabetes: >6.4 Glycemic control for adults with diabetes: <7.0 68-Epj-591659:13 DHEA-S (DEHYDROEPIANDROSTERONE Comments: PATIENT NOT FASTINGPERFORMED BY: [employer] [facility] Lzwfnw8374 [place] [id number] SULFATE) ([id number]) DHEA-Sulfate 133.8 ug/dL (Normal) Range: 48.9-344.2 42-Iqd-239944:13 TESTOSTERONE TOTAL (39275) Comments: PATIENT NOT FASTINGPERFORMED BY: [employer] [facility] Juxqvc1885 [place] [facility] [place] [id number] Comment: TESTM (Normal) Comments: Adult male reference interval is based on a population of lean malesup to 40 years old. Testosterone, Serum 529 ng/dL (Normal) Range: 348-1197 09-Jwz-253824:13 TSH ([id number]) Comments: PATIENT NOT FASTINGPERFORMED BY: [employer] [facility] Zpjhfb0994 [place] [facility] [place] [id number] TSH 2.910 {uIU/mL} (Normal) Range: 0.450-4.500 97-Gfo-532996:13 METABOLIC PANEL, COMPREHENSIVE Comments: PATIENT NOT FASTINGPERFORMED BY: [employer] Zfzjee0004 [place] [facility] [place] [id number] ([id number]) ALT (SGPT) 7 [iU]/L (Normal) Range: 0-44 [...] Glucose, Serum 92 mg/dL (Normal) Range: 65-99 83-Zjp-200473:13 CBC W/AUTO DIFF WBC Comments: PATIENT NOT FASTINGPERFORMED BY: [facility]Co[facility] CenterAwksfe8267 [facility] [id number] Information: [id number] ([id number]) Immature Grans (Abs) 0.0 {x10E3/uL} (Normal) Range: [...] mental state Altered mental state : Reviewed [employer] Letter Indication: Altered mental state Altered mental status, unspecified altered mental status type : Reviewed Lab Indication: Altered mental status, unspecified altered mental status type Altered mental status, unspecified altered mental status type : Reviewed Diagnostic Tests Indication: Altered mental status, unspecified altered mental status type Altered mental status, unspecified altered mental status type : Reviewed [employer] Letter Indication: Altered mental status, unspecified altered [...] of lower extremity, unspecified laterality : Reviewed [employer] Letter Indication: Cellulitis of lower extremity, unspecified laterality Mild intermittent asthma without complication : Continue Current Prescription(s) Indication: Mild intermittent asthma without complication Controlled diabetes mellitus : Follow up in 3 months Indication: Controlled diabetes mellitus Essential hypertension : HTN/CAD Red Flags Indication: Essential hypertension Dog bite of upper extremity, right, subsequent encounter : Reviewed [employer] Letter Indication: Dog bite of upper extremity, right, subsequent encounter Cellulitis of forearm : Continue Current Prescription(s) Indication: Cellulitis of forearm Dog bite of upper extremity, right, initial encounter : Reviewed [employer] Letter Indication: Dog bite of upper extremity, [...] Sinusitis, acute Planned Observations Metabolic Panel, Basic ([id number])Indication: Therapeutic drug monitoring On: 7-Wqn-201325:23 Request CBC, PLATELETS & MANUAL DIFF ([id number])Indication: Essential hypertension On: 19-Mar-2017 Request CBC, PLATELETS & MANUAL DIFF ([id number])Indication: Essential hypertension On: 12-Mar-2017 Request CBC, PLATELETS & MANUAL DIFF ([id number])Indication: Essential hypertension On: 05-Mar-2017 Request CBC, PLATELETS & MANUAL DIFF ([id number])Indication: Essential hypertension On: 26-Feb-2017 Request CBC, PLATELETS & MANUAL DIFF ([id number])Indication: Essential hypertension On: 19-Feb-2017 Request CBC, PLATELETS & MANUAL DIFF ([id number])Indication: Essential hypertension On: 12-Feb-2017 Request CBC, PLATELETS & MANUAL DIFF ([id number])Indication: Essential hypertension On: 05-Feb-2017 Request CBC, PLATELETS & MANUAL DIFF ([id number])Indication: Essential hypertension On: 29-Jan-2017 Request CBC, PLATELETS & MANUAL DIFF ([id number])Indication: Essential hypertension On: 22-Jan-2017 Request CBC, PLATELETS & MANUAL DIFF ([id number])Indication: Essential hypertension On: 15-Jan-2017 Request HgA1C , Office ([id number])Indication: Controlled diabetes mellitus On: 4-Pmk-012555:23 Request CBC, PLATELETS & MANUAL DIFF ([id number])Indication: Essential hypertension On: 08-Jan-2017 Request CBC, PLATELETS & MANUAL DIFF ([id number])Indication: Essential hypertension On: 01-Jan-2017 Request CBC, PLATELETS & MANUAL DIFF ([id number])Indication: Essential hypertension On: 25-Dec-2016 Request CBC, PLATELETS & MANUAL DIFF ([id number])Indication: Essential hypertension On: 18-Dec-2016 Request CBC, PLATELETS & MANUAL DIFF ([id number])Indication: Essential hypertension On: 11-Dec-2016 Request CBC, PLATELETS & MANUAL DIFF ([id number])Indication: Essential hypertension On: 04-Dec-2016 Request CBC, PLATELETS & MANUAL DIFF ([id number])Indication: Essential hypertension On: 27-Nov-2016 Request CBC, PLATELETS & MANUAL DIFF ([id number])Indication: Essential hypertension On: 20-Nov-2016 Request CBC, PLATELETS & MANUAL DIFF ([id number])Indication: Essential hypertension On: 13-Nov-2016 Request CBC, PLATELETS & MANUAL DIFF ([id number])Indication: Essential hypertension On: 06-Nov-2016 Request CBC, PLATELETS & MANUAL DIFF ([id number])Indication: Essential hypertension On: 30-Oct-2016 Request Metabolic Panel, Basic ([id number])Indication: Mixed erectile dysfunction On: 96-Eog-810943:23 Request CBC, PLATELETS & MANUAL DIFF ([id number])Indication: Essential hypertension On: 23-Oct-2016 Request CBC, PLATELETS & MANUAL DIFF ([id number])Indication: Essential hypertension On: 16-Oct-2016 Request CBC, PLATELETS & MANUAL DIFF ([id number])Indication: Essential hypertension On: 09-Oct-2016 Request CBC, PLATELETS & MANUAL DIFF ([id number])Indication: Essential hypertension On: 02-Oct-2016 Request CBC, PLATELETS & MANUAL DIFF ([id number])Indication: Essential hypertension On: 25-Sep-2016 Request CBC, PLATELETS & MANUAL DIFF ([id number])Indication: Essential hypertension On: 18-Sep-2016 Request CBC, PLATELETS & MANUAL DIFF ([id number])Indication: Essential hypertension On: 11-Sep-2016 Request CBC, PLATELETS & MANUAL DIFF ([id number])Indication: Essential hypertension On: 04-Sep-2016 Request CBC, PLATELETS & MANUAL DIFF ([id number])Indication: Essential hypertension On: 28-Aug-2016 Request CBC, PLATELETS & MANUAL DIFF ([id number])Indication: Essential hypertension On: 21-Aug-2016 Request CBC, PLATELETS & MANUAL DIFF ([id number])Indication: Essential hypertension On: 14-Aug-2016 Request CBC, PLATELETS & MANUAL DIFF ([id number])Indication: Essential hypertension On: 07-Aug-2016 Request CBC, PLATELETS & MANUAL DIFF ([id number])Indication: Essential hypertension On: 31-Jul-2016 Request CBC, PLATELETS & MANUAL DIFF ([id number])Indication: Essential hypertension On: 24-Jul-2016 Request CBC, PLATELETS & MANUAL DIFF ([id number])Indication: Essential hypertension On: 17-Jul-2016 Request CBC, PLATELETS & MANUAL DIFF ([id number])Indication: Essential hypertension On: 10-Jul-2016 Request CBC, PLATELETS & MANUAL DIFF ([id number])Indication: Essential hypertension On: 03-Jul-2016 Request CBC, PLATELETS & MANUAL DIFF ([id number])Indication: Essential hypertension On: 26-Jun-2016 Request CBC, PLATELETS & MANUAL DIFF ([id number])Indication: Essential hypertension On: 19-Jun-2016 Request CBC, PLATELETS & MANUAL DIFF ([id number])Indication: Essential hypertension On: 12-Jun-2016 Request CBC, PLATELETS & MANUAL DIFF ([id number])Indication: Essential hypertension On: 05-Jun-2016 Request CBC, PLATELETS & MANUAL DIFF ([id number])Indication: Essential hypertension On: 29-May-2016 Request CBC, PLATELETS & MANUAL DIFF ([id number])Indication: Essential hypertension On: 22-May-2016 Request MICROALBUMIN: CREATININE RATIO ([id number]) AND ([id number])Indication: Weakness On: 61-Kxo-168564:22 Request CBC, PLATELETS & MANUAL DIFF ([id number])Indication: Essential hypertension On: 24-Apr-2016 Request MRSA Culture ([id number])Indication: Nasal lesion On: 13-Fna-856863:43 Request BELKIS CULTURE-BLOOD ([id number])Indication: History of bacteremia On: 76-Fyg-790292:27 Request Aerobic Bacterial Culture ([id number])Indication: Nasal lesion On: 35-Ddx-567325:25 Request URINALYSIS, W/ MICRO ([id number])Indication: Essential hypertension On: 31-Tnd-843953:41 Request MICROALBUMIN: CREATININE RATIO ([id number]) AND ([id number])Indication: Essential hypertension On: 06-Lpe-524352:41 Request Planned Encounters Medical; 4 Month FU - On: 03-Oct-2018 7:00 [facility] Dhara Taylor DO, DO, Kathleen Planned Procedures Flu Vaccine (Quadrivalent) [id number]: On: 30-Jul-2018 Intent Dhara Taylor DO, DO, Kathleen MRI BRAIN W/ CONTRAST ([id number])By: On: 07-May-2018 Intent Dhara Taylor DO, DO, Kathleen ELECTROCARDIOGRAM, COMPLETE (ECG) On: 29-Oct-2017 Intent ([id number])By: Dhara Taylor DO Comments: nsr no acute chg Dhara Taylor DO Spirometry ([id number])By: Claudia RESENDEZ, On: 29-Oct-2017 Intent Dhara Hendricks DO Comments: #1 severe obstruction #2 severe obstruction -not much different after brisk walk TDAP VACCINE >7 IM ([id number])By: Claudia On: 26-Apr-2017 Dhara Thakkar DO, DO, Kathleen Comments: Lot:[id number]:05/23/19Dose:0.5mgRoute:im Site:[facility] By:GLORIA signed ELECTROCARDIOGRAM, COMPLETE (ECG) On: 10-Jan-2017 Intent ([id number])By: Dhara Taylor DO Comments: pt refused Dhara Taylor DO Aerosol Treatment ([id number])By: Claudia On: 05-Aug-2015 Intent Dhara RESENDEZ DO, Kathleen Spirometry ([id number])By: Claudia RESENDEZ, On: 05-Aug-2015 Intent Dhara Hendricks [...] Reason for hospitalization note: (1 week at [facility] I broke up a dog fight [...] Reason for hospitalization note: (1 week at [facility] I broke up a dog fight and I had some stiches in the rt arm). Patient has been compliant with instructions. Current medication use: no side End: 26-Apr-2017 15:00 effects and compliant with dosing regimen.Encounter Diagnosis: Dog bite of upper extremity, right, initial encounter, Cellulitis of forearm, Need for Tdap vaccination (Renamed from Need for ammqnujqlu-tatkfmw-hulxqqffa (Tdap) vaccine, adult/a dolescent) [facility] [...] like [place] [address] [place] disorder. Have been incontinent of urine and extreme weakness. Was seeing Dr. Longoria at [facility] switched to Dr. Zhu Diagnosis: Weakness, [...] for prostate cancer) [facility] [employer] [place]/ Christopher Sosa; jose f guarantor
--- OUTSIDE RECORDS SUMMARY | 2018-10-15 01:43 | XMS RPT_ITS | Continuity of Care Document ---
:1955 Author Organization [facility] Address [address] [place] [address] Phone Care Team Providers Name Role Phone [...] Active Schizophrenia (F20.9, 295.90) Comments: managed by [facility] Status: Active Smoker (F17.200, 305.1) Status: Active Therapeutic drug monitoring (Z51.81, V58.83) Status: Active Venous insufficiency (I87.2, 459.81) Status: Active Medications Name Dates Details Advair Diskus 250-50 MCG/DOSE Inhalation Aerosol Powder Breath Activated 1 (one) Aero Pow Br Act bid for 0 days Quantity: 1 {Inhaler} Refills: 2 Ordered:23-Jun-2018 Sally aTylor DO, DO, Kathleen Start : 23-Jun-2018 Active [...] Propionate 50 MCG/ACT Nasal Suspension 1 (one) Comfort Comfort qd for 0 days Quantity: 1 {Container} [...] brain normalmental status back to baseline per shorthand reporter- Isaac Status: Resolved as of 21-May-2018 BMI 28.0-28.9,adult (Z68.28, V85.24) Status: Resolved as of 21-May-2018 BMI 29.0-29.9,adult (Z68.29, V85.25) Status: Inactive as of 02-May-2018 Cannabis abuse (F12.10, 305.20) Comments: per case checker knowledge -inactive Status: Inactive as of 21-May-2018 [...] for Tdap vaccination (Renamed from Need for bpfubcftdo-qvkrfdw-nxkbykyst (Tdap) vaccine, adult/adolescent) (Z23, V06.1) Status: Resolved [...] V58.32) Comments: sutures placed in ER at [facility] Status: Inactive as of 29-Oct-2017 Weakness (R53.1, 780.79) Comments: is reducing depakote per self, sees psych Asteka Status: Inactive as of 10-Jan-2017 Procedures Procedure Dates Details Tonsillectomy Completed Date Value Details 08-May-2018 History and Physical Exam Result: Comments: See Note; NOTES: [facility] Medical Records Department [address] [place] [address] History and Physical 05/08/182104 MR#: [id number] Acct: [id number] Name: CHARISSA SOSA UL E Rep #: [id number] : 1955 62 From: Kristal Larsen PCP: [...] diabetes mellitus Status: Chronic Qualifiers: Diabetes mellitus laborer marine terminal insulin use: without laborer marine terminal use Diabetes mellitus complication statu s: without complication Qualified Code(s): E11.9 - Type 2 diabetes mellitus without complications (6) Bilateral leg edema Status: Chronic History of Present Illness Date of Admission: 05/08/18 Chief C omplaint: Worsened confusion The patient is a 62 y/o M, Living in [facility] w/ PMHx: Schizophrenia w/ Prior Suicide Attempts, [...] be performed who now re-presents to the [facility] ED on 05/08/18 with confusion and noted aud itory hallucinations with mcc confirmed taking his schizophrenia medications, failure to understand how to perform basic tasks he normally performs over the last 48 hours with PCP and assisted discussion with patient and now willingness to have MRI performed. assisted notes that this is very different from [...] Anxiety, Depression, Prior suicide attempt, Schizophrenia Lives: Long Term Smoking Status: Current every day smoker Tobacco [...] is a 62 y/o M, Living in [facility] w/ PMHx: Schizophrenia w/ Prior Suicide Attempts, Tobacco use, Chronic COPD, Diabet es mellitus type II, CHF Unclear Type, PVD w/ chronic BL LE lymphedema, LLE Venous Stasis Ulcer following [facility] who presents to the [facility] ED on 05/08/18 with confusion and noted auditory halluci nations with assisted confirmed taking his schizophrenia medications, failure to understand how to perform basic tasks he normally performs over the last 48 hours with PCP and assisted discussion wi th patient and now willingness [...] Lovenox. Code Visit OBSV E AND M: 40830 Initial observation care L3 05/08/182139 <Electronically signed by Kristal Larsen > Date Kristal Larsen Cosigner Signature: Date (if applicable) CC: Kristal Larsen; Dhara Taylor DO Signed 08-May-2018 Emergency Department Summary Result: Comments: See Note; NOTES: [facility] Medical Records Department [address] [place] [address] Emergency Department Summary 05/08/18 1748 MR#: [id number] Acct: [id number] Name: AJIT SOSA Sera Rep #: [id number] : 1955 62 From: Petrona Rios MD PCP: Dhara Taylor DO Status: REG ER - ER Visit Summary Date of Service: 05/08/18 Chief Complaint: Confusion History of P resent Illness: The patient is a 62 M presenting with intermittent confusion. His staff member from his [facility] states that he has been confused intermittently since April 16. He was admitted at that time for TIA workup. During that admission patient refused MRI. He was seen again in the ED on May 02 for continued intermittent confusion. He refused MRI during the ED stay as well. Today mcc d iscussed with his primary care physician Dr. Taylor who feels the patient needs an MRI according to mcc staff and the patient. The patient is now agreeable to MRI. He was advised to come to the E D for further evaluation. assisted staff states that he has been having [...] status, TIA This note was generated with JourneyPure dictation software. It may contain inc orrect [...] Primary Care Pr ovidharinder. Call [facility] ([phone]) or report to the closest Emergency Room. Call 911 if necessary. 05/08/182128 <Electronically signed by Petrona Rios MD> Date _ Petrona Rios MD Cosigner Signature (If Indicated): Date CC: Dhara Taylor DO 08-May-2018 Brain/Head without Contrast Result: Comments: See Note; NOTES: [facility] Imaging Services [address] [place] [address] Brain/Head without Contrast MR#: [id number] Acct: [id number] Name: AJIT SOSA Rep #: [id number] : 1955 M 62 From: Lorne Augustine MD PCP: Dhara Taylor DO Status: REG ER Study: Brain/Head without Contrast Date of Exam: 05/08/18 Exam# [id number] Ordering Dr: Petrona Rios MD UDY: CT [...] CC: Petrona Rios MD; Dhara Taylor DO Mask Design Engineer: Signed 08-May-2018 Chest 1 View Result: Comments: See Note; NOTES: [facility] Imaging Services [address] [place] [address] Chest 1 View MR#: [id number] Acct: [id number] Name: AJIT SOSA Rep #: [id number] : M 62 From: Lorne Augustine MD PCP: Dhara Taylor DO Status: REG ER Study: Chest 1 View Date of Exam: 05/08/18 Exam# [id number] Ordering Dr: Petrona Rios MD STUDY: X-RAY [...] CC: Petrona Rios MD; Dhara Taylor DO Mask Design Engineer: Signed 06-May-2018 12 Lead Electrocardiogram Result: Comments: See Note; NOTES: [facility] Cardiovascular Services [address] [place] [address] 12 Lead EKG 05/02/18 1555 MR#: [id number] Acct: [id number] Name: AJIT SOSA Rep # : [id number] : 1955 62 From: Ajit Benavidez MD [...] Normal ECG Confirmed by PRAMOD ALSTON, AJIT ([id number]), legal editor DANNA LIZAMA ([id number]) on 05/06/2018 2:29:59 PM Referred By: VAISHALI Confirmed By:AJIT BENAVIDEZ MD 05/06/18 1430 Date Ajit Benavidez MD CC: Gabriela Barrett MD; Dhara Taylor DO Signed 03-May-2018 Emergency Department Summary Result: Comments: See Note; NOTES: [facility] Medical Records Department [address] [place] [address] Emergency Department Summary 05/02/18 1648 MR#: [id number] Acct: [id number] Name: AJIT SOSA Rep #: [id number] : 1955 62 From: Gabriela Barrett MD [...] presentation is not typical of his psychosis. assisted staff member describes confusion with normal tasks [...] the week. Patient was monitored at the mcc o rick the weekend. I did speak with Dr. Carter to update her on the patient's findings and plan as the patient was sent in by Dr. Taylor. Treatment Plan: [] Disposition: Discharge Impression: 1. Repor melchor slurred speech, resolved 2. Schizoaffective disorder This note was generated with JourneyPure dictation software. It may contain incorrect words, [...] your Primary Care Provider. Call [facility] ([phone]) or report to the closest Emergency Room. Call 911 if necessary. 05/03 0028 <Electronically signed by Gabriela Barrett MD> Date Gabriela Barrett MD Cosigner Signature (If Indicated): Date ____ CC: Dharaga Taylor 02-May-2018 Discharge Instruction Result: Comments: See Note; NOTES: [facility] Medical Records Department [address] [place] [address] Discharge Instruction 05/02/182233 MR#: [id number] Acct: [id number] Name: Rolando SOSA Rep #: [id number] : 1955 62 From: Gabriela Barrett MD [...] without Contrast Result: Comments: See Note; NOTES: [facility] Imaging Services [address] [place] [address] Brain/Head without Contrast MR#: [id number] Acct: [id number] Name: AJIT SOSA Rep #: [id number] : 1955 M 62 From: Edenilson Hernandez MD PCP: Dhara Taylor DO Status: REG ER Study: Brain/Head without Contrast Date of Exam: 05/02/18 Exam# [id number] Ordering Dr: Gabriela Barrett MD [facility] DY: CT BRAIN WITHOUT CONTRAST [...] CC: Gabriela Barrett MD; Dhara Taylor DO Mask Design Engineer: Signed 16-Apr-2018 Brain/Head without Contrast Result: Comments: See Note; NOTES: [facility] Imaging Services [address] [place] [address] Brain/Head without Contrast MR#: [id number] Acct: [id number] Name: AJIT SOSA Rep #: [id number] : 1955 M 62 From: Jackson Conde DO PCP: Dhara Taylor DO Status: REG Study: Brain/Head without Contrast Date of Exam: 04/16/18 Exam# [id number] Ordering Dr: Petrona Rios MD STUD Y: [...] Jackson Conde DO at 17:16 EDT Tel [phone], Service support [phone], CC: Petrona Rios MD; Dhara Taylor DO Mask Design Engineer: Signed 16-Apr-2018 Chest 1 View Result: Comments: See Note; NOTES: [facility] Imaging Services [address] [place] [address] Chest 1 View MR#: [id number] Acct: [id number] Name: AJIT SOSA Rep #: [id number] : M 62 From: Jackson Conde DO PCP: Dhara Taylor DO Status: PRE ER Study: Chest 1 View Date of Exam: 04/16/18 Exam# [id number] Ordering Dr: Petrona Rios MD STUDY: X-RAY [...] of the upper abdomen. ORDER # : [id number] RAD/Chest 1 View IMPRESSION: No acute cardiopulmonary disease or interval change. Electronically Signed: Jackson Conde DO at 16:55 EDT Tel [phone], Service support [phone], CC: Petrona Rios MD; Dhara Taylor DO Mask Design Engineer: Signed 16-Apr-2018 Emergency Department Summary Result: Comments: See Note; NOTES: [facility] Medical Records Department [address] [place] [address] Emergency Department Summary 04/16/18 0514 MR#: [id number] Acct: [id number] Name: AJIT SOSA Rep #: [id number] : 1955 62 From: Quentin Winkler MD PCP: Dhara Taylor DO Status: DEP ER - ER Visit Summary Date of Service: 04/16/18 Chief Complaint: Left arm pain History o f Present Illness: The patient is a 62 M presenting for evaluation secondary left arm pain. Patient has a underlying history of living in a [facility]cc and has schizophrenia that is reasonably controlled [...] approved by a physician and his nursing chemical lab supervisor and was unable to take any [...] arm pain This note was generated with JourneyPure dictation software. It may contain incorrect words, [...] your Primary Care Provider. Call [facility] ([phone]) or report to the closest Emergency Room. Call 911 if necessary. 04/16/18 0717 <Electronically signed by Quentin Winkler MD> Date Quentin Winkler MD Cosigner Signature (If Indicated): Date CC: Dhara Taylor DO 21-Mar-2018 Wound Ctr History AND Physical Result: Comments: See Note; NOTES: [facility] [address] [place] [address] Wound Ctr History AND Physical 03/21/182028 MR#: [id number] Acct: [id number] Name: FELIX AlegriaAJIT Sera Rep #: [id number] : 1955 62 From: Samantha Manuel DO [...] Chronic Current Visit: Yes Qualifiers: Diabetes mellitus correction insulin use: without laborer marine terminal use Diabetes mellitus complication stat us: without [...] odor or drainage. He lives in a mcc and cares for himself with supervision from staff. He is accompanied today by his case mgr, Isaac. Past Medical History Charissa wong Medical [...] bonilla Diabetes Sibling Hypertension Lives: - - mcc Smoking Status: Current every day smoker Tobacco [...] Date Recorded By Document 03/21/18 13:53 DL [id number] 14:14 DL Wound Center Nurse 1 [...] Date Recorded By Document 06/15/18 15:45 DV [id number] 03/21/18 15:51 DV Psych/Mental Status: Flat Affect Debridement Note Post-Debridement Measurements/Treatment WC - Nurse 2 - General Ulcer CM Notes Start: 03/21/18 13:50 Freq: Status: Active Protocol: Activity Ty pe Activity Date Activity User E-Sign Co-Sign Detail Recorded Client Recorded Date Recorded By Document 03/21/18 15:45 DV [id number] 03/21/18 15:51 DV Wound Center Nurse 2 [...] Department Summary Result: Comments: See Note; NOTES: [facility] Medical Records Department [address] [place] [address] Emergency Department Summary 11/26/17 1320 MR#: [id number] Acct: [id number] Name: AJIT SOSA Rep #: [id number] : 1955 62 From: Blayne Caldwell DO [...] tremity cellulitis] This note was generated with [employer] software. It may contain incorrect words, spelling, [...] your Primary Care Provider. Call [facility] ([phone]) or report to the closest Emergency Room. Call 911 if necess krish. 11/30/17 3115 <Electronically signed by Blayne Caldwell DO> Date Blayne Caldwell DO Cosigner Signature (If Indicated): Date _ CC: Dhara Taylor DO 26-Nov-2017 Venous Duplex Lower Extremity Result: Comments: See Note; NOTES: [facility] Cardiovascular Services [address] [place] [address] Venous Duplex US - Kane Extrem 11/26/17 1349 MR#: [id number] Acct: [id number] Name: AJIT SOSA Rep #: [id number] : 1955 62 From: Roger Carney MD [...] Date Dictated: 1349 Date Transcribed: 11/26/17 1522 Mask Design Engineer: Signed 26-Nov-2017 Discharge Instruction Result: Comments: See Note; NOTES: [facility] Medical Records Department [address] [place] [address] Discharge Instruction 11/26/17 1435 MR#: [id number] Acct: [id number] Name: Rolando SOSA Rep #: [id number] : 1955 62 From: Blayne Caldwell DO [...] your Primary Care Provider. Call [facility] ([phone]) or report to the closest Emergency R oom. Call 911 if necessary. 11/26/17 1436 <Electronically signed by Blayne Caldwell DO> Date Blayne Caldwell DO Cosigner Signature (If Taylor cated): Date CC: Dhara Taylor DO 24-Aug-2017 Emergency Department Summary Result: Comments: See Note; NOTES: [facility] Medical Records Department [address] [place] [address] Emergency Department Summary 08/24/17 1433 MR#: [id number] Acct: [id number] Name: AJIT SOSA Rep #: [id number] : 1955 61 From: Hill Carrington DO [...] process. He reports he lives in a mcc and is receiving scheduled Risperdal and other [...] schizoaffective disorder This note was generated with Journey[employer]ure dictation software. It may contain incorrect words, [...] your Primary Care Provider. Call [facility] ([phone]) or report to the closest Emergency Room. Call 911 if necessary. 08/24/17 1539 <Electronically signed by Hill Carrington DO> Date Hill Carrington DO Cosigner Signature (If Indicated): Date CC: Dhara Taylor DO 03-Apr-2017 Emergency Department Summary Result: Comments: See Note; NOTES: [facility] Medical Records Department [address] [place] [address] Emergency Department Summary MR#: [id number] Acct: [id number] Name: AJIT SOSA Rep #: [id number] : 1955 61 From: Wero Keating MD PCP: Dhara Taylor DO Status: [facility] DATE OF SERVICE: 03/30/2017 CHIEF COMPLAINT: Agitated. [...] Haldol and Cogentin, his night dose. Crisis practice representative came over, fully evaluated the patient and is having him transfe rred to [place], accepted by Dr. Huertas, appropriate emergency application, paperwork, labs and reports were given. The patient is stable for transfer. DIAGNOSIS: Acute paranoia. Obed Recinos C: Dhara Taylor DO T: [facility] JOB: [id number] 04/03/17805 <Electronically signed by Wero Keating MD> Date Wero Keating MD Cosigner Signature (If Indicated): Date CC: Dhara Taylor DO Date Dictated: 03/30/172204 Date Transcribed: 03/30/172204 Mask Design Engineer: Signed 02-Apr-2017 12 Lead Electrocardiogram Result: Comments: See Note; NOTES: [facility] Cardiovascular Services [address] [place] [address] 12 Lead EKG 03/30/172007 MR#: [id number] Acct: [id number] Name: AJIT SOSA Rep # : [id number] : 1955 61 From: Moises Richard MD [...] ECG Confirmed by MOISES RICHARD MD ([id number]), legal editor DANNA LIZAMA ([id number]) on 04/02/2017 2:26:02 PM Referred By: [facility] Confirmed By:MOISES RICHARD MD 04/02/17 1426 Date Moises Abdul CC: Dhara Taylor DO Date Dictated: 03/30/172007 Date Transcribed: 03/30/172007 Mask Design Engineer: Signed 17-Oct-2016 Emergency Department Summary Result: Comments: See Note; NOTES: [facility] Medical Records Department [address] [place] [address] Emergency Department Summary MR#: [id number] Acct: [id number] Name: AJIT SOSA Rep #: [id number] : 1955 60 From: Prakash Loza MD PCP: Dhara Taylor DO Status: DEP ER DATE OF SERVICE: 09/25/2016 METHOD OF ARRIVAL: EMS. CHIEF COMPLAINT: Delusions and paranoia. HIST ORY OF PRESENT ILLNESS: A 60-year-old male patient of Dr. Marshall who was sent here from the [facility] because he is having delusions [...] auditory or visual hallucinations. 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 Insight and judgment is poor. The [...] DO Date Dictated: 10/09/16615 Date Transcribed: 10/09/16615 Mask Design Engineer: Signed 27-Sep-2016 12 Lead Electrocardiogram Result: Comments: See Note; NOTES: [facility] Cardiovascular Services [address] [place] [address] 12 Lead EKG 09/25/16 2218 MR#: [id number] Acct: [id number] Name: AJIT SOSA Rep # : [id number] : 1955 60 From: Reji Hill MD Attending Dr: Status: DEP ER Ordering Dr: Gabriela Barrett MD Date: 09/25/16 Location: ED Sex: M C Admitted: Test Reason : [facility] Blood Pressure : / mmHG Vent. Rate : 086 BPM Atrial Rate : 086 BPM P-R Int : 144 ms QRS Dur : 068 ms QT Int : 364 ms P-R-T Axes : 088 071 066 degrees QTc Int : 435 ms Sinus rhythm with marked sinus arrhythmia Nonspe cific ST abnormality Abnormal ECG Confirmed by REJI HILL ([id number]), legal editor DANNA LIZAMA ([id number]) on 09/27/2016 12:52:12 PM Referred By: [facility] Confirmed By:REJI HILL 09/27/16 1252 Date Reji Hill MD CC: Dhara Taylor DO Date Dictated: 09/25/162217 Date Transcribed: 09/25/162217 Mask Design Engineer: Signed 25-Sep-2016 12 Lead Electrocardiogram Result: Comments: See Note; NOTES: [facility] Cardiovascular Services [address] [place] [address] 12 Lead EKG 09/23/16 0143 MR#: [id number] Acct: [id number] Name: AJIT SOSA Obed Rep # : [id number] : 1955 60 From: Ajit Benavidez MD [...] abnormality Confirmed by PRAMOD ALSTON, AJIT ([id number]), legal editor DANNA LIZAMA ([id number]) on 09/25/2016 10:18:06 AM Referred By: DR BUSTOS Confirmed By:AJIT BENAVIDEZ MD 09/25/16 1018 Date ___ Ajit Benavidez MD CC: Dhara Taylor DO Date Dictated: 09/23/16142 Date Transcribed: 09/23/16142 Mask Design Engineer: Signed 23-Sep-2016 Emergency Department Summary Result: Comments: See Note; NOTES: [facility] Medical Records Department [address] [place] [address] Emergency Department Summary MR#: [id number] Acct: [id number] Name: AJIT SOSA Rep #: [id number] : 1955 60 From: Quentin Bustos MD [...] chizophrenia. DISPOSITION: Discharged. Quentin Bustos MD T: [facility] JOB: [id number] 09/23/16 0539 <Electronically signed by uQentin Bustos MD> Date Quentin Bustos MD Cosigner Signature (If Indicated): Date CC: Dhara Taylor DO Date Dictated: 09/23/16238 Date Transcribed: 09/23/16238 Mask Design Engineer: Signed 23-Sep-2016 Discharge Instruction Result: Comments: See Note; NOTES: [facility] Medical Records Department [address] [place] [address] Discharge Instruction 09/23/16233 MR#: [id number] Acct: [id number] Name: Rolando SOSA Rep #: [id number] : 1955 60 From: Quentin Bustos MD PCP: Dhara Taylor DO Status: DEP ER ED Disposition - Plan for ED Patient: Chief Complaint: Abd Pain Instructions: ED Leg Swelling Bilateral Prescriptions: Cephalexin [Keflex] 500 mg PO Q6 #40 capsule Referrals: Dhara Talyor DO [Primary Care Provider] - What to do if you have Problems For any increased pain, shortness of b reath, bleeding, nausea or vomiting, chest pain, or any unexpected problems, contact your Primary Care Provider. Call [facility] ([phone]) or report to the closest Emergency Room. Call 911 if necessary. 09/23/16307 <Electronically signed by Quetnin Bustos MD> Date Quentin Bustos MD Cosigner Signature (If Indicated): Da te CC: Dhara Taylor DO 11-May-2016 Emergency Department Summary Result: Comments: See Note; NOTES: [facility] Medical Records Department [address] [place] [address] Emergency Department Summary MR#: [id number] Acct: [id number] Name: AJIT SOSA Rep #: [id number] : 1955 60 From: Fina Barry MD PCP: Dhara Taylor DO Status: DEP ER DATE OF SERVICE: 05/09/2016 CHIEF COMPLAINT: Depressed mental status. HISTORY OF PRESENT ILLNESS: This is a 60-year-old male with a history of schizophrenia and other mental health issues. He has a social sciences department chair with him today, who typically [...] evaluation. Fina valdovinos MD T: [facility] JOB: [id number] 05/11/16 0946 <Electronically signed by Fina Barry MD> Date Fina Barry MD Cosigner Signature (If Indicated): Date CC: Dhara Taylor DO Date Dictated: 05/09/16 1140 Date Transcribed: 05/09/16 1140 Mask Design Engineer: Signed 09-May-2016 Discharge Instruction Result: Comments: See Note; NOTES: [facility] Medical Records Department [address] [place] [address] Discharge Instruction 05/09/16 1130 MR#: [id number] Acct: [id number] Name: AJIT SOSA Rep #: [id number] : 1955 60 From: Fina Barry MD [...] problems, contact your doctor. Call [facility] ([phone]) or report to the closest Emergency Room. Call 911 if necessary. 05/09/16 1131 &am p;#60;Electronically signed by Fina Barry MD> Date Fina Barry MD Cosigner Signature (If Indicated): Date CC: Dhara Taylor DO 05-Aug-2015 EKG (13355) Comments: nsr no acutechg Result: [MEASUREMENTS ANALYSIS] Date of Test: 08/05/2015 11:03:50; Heart Rate: 63; MO Interval: 158; QRS: 90; QT Interval: 382; Corrected QT Interval (QTc): 387; P Wave [place]: 65; QRS Wave [place]: 69; T Wave [place]: 90; Blood Pressure: 158/94 [ECG DIAGNOSTIC STATEMENTS] [...] Value Details :21 Alanine Aminotransferas (SGPT) Comments: [facility] [id number] [place], [place], [id number] ALT 14 U/L (Abnormal) Range: 16-61 27-Vkg-838428:21 Ammonia Comments: [facility] [address] [place], [id number] AMMONIA 12.0 umol/L (Normal) Range: 11-32 82-Kon-324827:21 AST(SGOT) Comments: [facility] [address] [place], [id number] AST 19 U/L (Normal) Range: 15-37 94-Afu-789432:21 Platelet Count Comments: [facility] [address] [place], [id number] PLT 182 K/mm3 (Normal) Range: 150-450 62-Weg-388021:21 Prolactin Comments: [facility] [id number] [place], [id number] PROLACTIN 20.8 ng/mL (Normal) Comments: NORMAL REFERENCE RANGES FEMALE NON- 2.2 - 30.3 ng/mL 8.1 - 347.6 ng/mL POST-MENOPAUSAL 0.7 - 3 1.5 ng/mL MALE 2.5 - 17.4 ng/mLNEW TEST METHOD AND REFERENCE RANGES FEBRUARY 25, 201223-Jun-201834-Cxh-166747:21 Valproic Acid (Depakene) Level Comments: [facility] [address] [place], [id number] VALPROIC ACID 87 ug/mL (Normal) Range: 50-100 62-Xsc-960396:10 Microscopic Examination Comments: PATIENT WAS FASTINGPERFORMED BY: [employer]70 [facility] [id number] Bacteria None seen (Normal) Mucus Threads Present (Normal) Epithelial Cells (non renal) None seen {/hpf} (Normal) Range: 0 - 10 RBC 0-2 {/hpf} (Normal) Range: 0 - 2 WBC 0-5 {/hpf} (Normal) Range: 0 - 5 65-Ces-406517:10 TSH (45020) Comments: PATIENT WAS FASTINGPERFORMED BY: [facility] [id number] TSH 3.840 {uIU/mL} (Normal) Range: 0.450-4.500 84-Iry-381843:10 URINALYSIS, W/ MICRO (97770) Comments: PATIENT WAS FASTINGPERFORMED BY: b3 bioAstra Health CenterXxqpbj9410 [facility] [id number] Microscopic Examination See below: (Normal) Comments: Microscopic was indicated and was performed. Microscopic Examination MICRON (Normal) Comments: Microscopic follows if indicated. Nitrite, Urine Negative (Normal) Urobilinogen,Semi-Qn 0.2 mg/dL (Normal) Range: 0.2-1.0 Bilirubin Negative (Normal) Occult Blood Negative (Normal) Ketones Negative (Normal) Glucose Negative (Normal) Protein Negative (Normal) WBC Esterase Negative (Normal) Appearance Clear (Normal) Urine-Color Yellow (Normal) pH 7.0 (Normal) Range: 5.0-7.5 Specific [place] 1.017 (Normal) Range: 1.005-1.030 53-Vny-192225:10 MICROALBUMIN: CREATININE RATIO Comments: PATIENT WAS FASTINGPERFORMED BY: b3 bioAstra Health CenterJroffh5812 [facility] [id number] (24945) AND (35097) Alb/Creat Ratio 56.7 {mg/g_creat} (Abnormal) Range: 0.0-30.0 Albumin, Urine 51.0 ug/mL (Normal) Creatinine, Urine 90.0 mg/dL (Normal) 77-Xri-310940:10 LIPID PANEL (31057) Comments: PATIENT WAS FASTINGPERFORMED BY: b3 bioAstra Health CenterZqqhgh7659 [facility] [id number] LDL/HDL Ratio 1.5 {ratio} (Normal) Range: 0.0-3.6 [...] (Normal) Range: 100-199 :30 HgA1C , Office (12445) HgA1C , Office 5.8 % (Normal) Range: 4.6 - 7.1 :30 Blood Glucose , Office (96987) Blood Glucose , Office 123 (Normal) 27-Gak-249845:54 Valproic Acid (79544) Comments: fax results [phone]; PATIENT NOT FASTINGPERFORMED BY: [facility]WHILL Jmcfcg2604 [facility] [id number] Valproic Acid (Depakote)(R),S 67 ug/mL (Normal) Range: 50-100 Comments: Detection Limit = 4 <4 indicates None Detected . Toxicity may occur at levels of 100-500. Measurements of free unbound valproic acid may improve the assess- ment of clinical response. 19-Rdf-857825:54 CBC WITH MANUAL DIFF Comments: fax results [phone]; PATIENT NOT FASTINGPERFORMED BY: [facility] Xvjzae1129 [facility] [id number] Information: NURSE DRAW (04996) Immature Grans (Abs) 0.0 {x10E3/uL} (Normal) Range: [...] 4.14-5.80 WBC 7.1 {x10E3/uL} (Normal) Range: 3.4-10.8 81-Dxt-757992:54 Metabolic Panel, Comprehensive Comments: fax results [phone]; PATIENT NOT FASTINGPERFORMED BY: LabCoAstra Health CenterRhihfi8370 [facility] [id number] (65035) ALT (SGPT) 7 [iU]/L (Normal) Range: 0-44 [...] 8-27 Glucose 107 mg/dL (Abnormal) Range: 65-99 32-Zoo-468240:54 AMMONIA (25469) Comments: fax results [phone]; PATIENT NOT FASTINGPERFORMED BY: [facility] Uustak4552 [place] [place] [id number] Ammonia, Plasma 53 ug/dL (Normal) Range: 27-102 9-Fka-308434:17 Bedside Glucose Comments: [facility] LaboratoryPoint of Ovaq[address] [place] [address] BEDSIDE GLU 74 mg/dL (Normal) Range: 70-110 Comments: MANAGEMENT OF PATIENT CARE PER NURSING PROTOCOL 2-Sif-927331:11 Urinalysis, Complete Comments: Order Date: 05/08/18How was Urine Obtained? CLEAN [facility] Snvlhehtaa[address] [place], [address] MUCUS, URINE 0 SEEN {/hpf} [...] (Normal) CLARITY Clear (Normal) COLOR Yellow (Normal) 9-Cpu-528500:11 Urine Drug Screen (VISTA) Comments: [facility] Vjodjsaiqi9088 [facility] Dh[place], [address] THC NEGATIVE (Normal) PCP NEGATIVE [...] TESTING MUST BE ORDERED SEPARATELY. USE TESTMNEMONIC: [facility] 0-Txz-348380:56 Alcohol, Blood (Medical)-Serum Comments: [facility] [address] [place], [place], [address] SERUM ETOH 5.0 mg/dL (Normal) Comments: The serum:whole blood ethanol ratio is approximately 1.14and varies slightly with hematocrit.Medical Alcohol reference interval and critical value innon-tolerant individuals; 50 - 100 Impairment 100 Intoxication 100 - 250 Severe Poisoning 250 - 400 Deep/possible fatal coma 7-Kbl-039894:56 Basic Metabolic Profile (BMP) Comments: [facility] [address]uceqdci[address] [place], [place], [address] GAP 3 (Abnormal) Range: 5-15 CO2 32.0 [...] Comments: Please note revised GLUCOSE reference range qtfbomdzb77/02/2018. :56 CBC W/Diff, Automated Comments: [facility] [address] [place], [place], [address] Absolute Lymph 1.81 {X10_3/ul} (Normal) Range: 0.83-4.51 [...] Range: 4.4-11.0 :56 Partial Thromboplast Time Comments: [facility] [address] [place], [place], [address] PTT 30.4 s (Normal) Range: 24.1-36.2 5-Akb-623090:56 Prothrombin Time w/INR Comments: [facility] [address] [place], [address] INR 1.2 (Normal) PROTIME 15.4 s (Abnormal) Range: 11.7-14.9 1-Hqn-459226:56 Troponin-I Comments: [facility] [address] [place], [address] TROPONIN-I < 0.015 ng/mL (Normal) Comments: TROPONIN-I EXPECTED VALUES <0.045 Negative 0.045 - 0.590 Consistent with Cardiac Damage > OR = 0.600 Critical Value Not every elevated troponin is indicative of IA. T hesevalues should be used with clinical judgement in examiningthe patient's clinical picture for diagnosis. To establisha diagnosis of IA versus myocardial injury, there must be ademonstrated rise and/ or fall in the troponin values, inaddition to ischemic symptoms, EKG changes, new regionalwall motion abnormality, and/or angiographical evidence. PLEASE NOTE: REFERENCE RANGES EDITED 02/17/1808-May-20180-Afi-622307:56 Valproic Acid (Depakene) Level Comments: [facility] [address] [place], [address] VALPROIC ACID 85 ug/mL (Normal) Range: 50-100 17-Nfn-012568:00 Alcohol, Blood (Medical)-Serum Comments: [facility] [address] [place], [address] SERUM ETOH 10.0 mg/dL (Normal) Comments: The serum:whole blood ethanol ratio is approximately 1.14and varies slightly with hematocrit.Medical Alcohol reference interval and critical value innon-tolerant individuals; 50 - 100 Impairment 100 Intoxication 100 - 250 Severe Poisoning 250 - 400 Deep/possible fatal coma 44-Xpy-103337:00 Basic Metabolic Profile (BMP) Comments: [facility] [address] [place], [address] GAP 5 (Normal) Range: 5-15 CO2 30.0 [...] A.D.A. criteria.Please note revised GLUCOSE reference range isuiemjhl50/02/2018. 95-Xic-027430:00 CBC W/Diff, Automated Comments: [facility] [address] [place], [address] Absolute Lymph 1.48 {X10_3/ul} (Normal) Range: 0.83-4.51 [...] 4.6-6.2 WBC 6.1 K/mm3 (Normal) Range: 4.4-11.0 17-Gtb-178991:00 Liver Profile Comments: [facility] Oigtarzqnb9110 [facility] [place], [place], [address] D BILI 0.14 mg/dL (Normal) Range: 0.00-0.30 T BILI 0.40 mg/dL (Normal) Range: 0.20-1.00 ALT 15 U/L (Abnormal) Range: 16-61 ALK P 71 U/L (Normal) Range: 45-117 AST 15 U/L (Normal) Range: 15-37 GLOB 2.6 g/dL (Normal) Range: 2.2-4.2 ALB 3.3 g/dL (Normal) Range: 3.2-5.0 T PROT 5.9 g/dL (Abnormal) Range: 6.4-8.2 91-Wav-344019:00 Troponin-I Comments: [facility] Girypawuda9745 [facility]. [place], [place], [address] TROPONIN-I < 0.015 ng/mL (Normal) Comments: TROPONIN-I EXPECTED VALUES <0.045 Negative 0.045 - 0.590 Consistent with Cardiac Damage > OR = 0.600 Critical Value Not every elevated troponin is indicative of IA. T hesevalues should be used with clinical judgement in examiningthe patient's clinical picture for diagnosis. To establisha diagnosis of IA versus myocardial injury, there must be ademonstrated rise and/ or fall in the troponin values, inaddition to ischemic symptoms, EKG changes, new regionalwall motion abnormality, and/or angiographical evidence. PLEASE NOTE: REFERENCE RANGES EDITED 02/17/1802-May-201842-Kaq-603954:00 Urinalysis, Complete Comments: Order Date: 05/02/18How was Urine Obtained? [facility] [address]idq[address] [place], [place], [address] MUCUS, URINE 0 SEEN {/hpf} (Normal) BACTERIA [...] (Normal) CLARITY Clear (Normal) COLOR Yellow (Normal) 47-Srp-874271:00 Urine Drug Screen (VISTA) Comments: Order Date: 05/02/18[facility] [address] [place], [place], [address] THC NEGATIVE (Normal) PCP NEGATIVE (Normal) OPIATES [...] TESTING MUST BE ORDERED SEPARATELY. USE TESTMNEMONIC: [facility] 29-Phf-853747:43 Valproic Acid (Depakene) Level Comments: [facility] [address] [place], [address] VALPROIC ACID 63 ug/mL (Normal) Range: 50-100 59-Zwl-230271:20 Basic Metabolic Profile (BMP) Comments: [facility] K[address]dtcidqu[address] [place], [address] GAP 7 (Normal) Range: 5-15 CO2 28.0 [...] Comments: Please note revised GLUCOSE reference range euzmoyvye36/02/2018. 07-Rmi-712928:20 CBC W/Diff, Automated Comments: [facility] [address]qll[address] [place], [address] Absolute Lymph 1.48 {X10_3/ul} (Normal) Range: 0.83-4.51 [...] 4.6-6.2 WBC 6.7 K/mm3 (Normal) Range: 4.4-11.0 60-Adn-233568:20 Partial Thromboplast Time Comments: [facility] Ukjmzzymgk6414 [facility] [place], [address] PTT 30.6 s (Normal) Range: 24.1-36.2 42-Cif-936688:20 Prothrombin Time w/INR Comments: [facility] Jzqwmnozyp9284 [facility] [place], [address] INR 1.1 (Normal) PROTIME 14.4 s (Normal) Range: 11.7-14.9 49-Mcb-470732:20 Troponin-I Comments: [facility] X[address] [facility] [place], [address] TROPONIN-I < 0.015 ng/mL (Normal) Comments: TROPONIN-I EXPECTED VALUES <0.045 Negative 0.045 - 0.590 Consistent with Cardiac Damage > OR = 0.600 Critical Value Not every elevated troponin is indicative of IA. T hesevalues should be used with clinical judgement in examiningthe patient's clinical picture for diagnosis. To establisha diagnosis of IA versus myocardial injury, there must be ademonstrated rise and/ or fall in the troponin values, inaddition to ischemic symptoms, EKG changes, new regionalwall motion abnormality, and/or angiographical evidence. PLEASE NOTE: REFERENCE RANGES EDITED 02/17/1816-Apr-201818-Rsh-140842:11 Bedside Glucose Comments: [facility] [place] [address] [address] [place] [address](758) BEDSIDE GLU 84 mg/dL (Normal) Range: 70-110 Comments: MANAGEMENT OF PATIENT CARE PER NURSING PROTOCOL 96-Fcp-033507:09 Anaerobic & Aerobic Comments: Left Leg; PATIENT NOT FASTINGPERFORMED BY: LabCoAstra Health CenterLkouqf9022 [facility] [id number] Information: LEFT LEG SRC:LG Culture (44193) Result 1 Mixed skin elvira (Normal) Aerobic Culture Final report (Normal) Result 1 NANG72 (Normal) Comments: No anaerobic growth in 72 hours. Anaerobic Culture Final report (Normal) 69-Hdm-54994:17 Alanine Aminotransferas (SGPT) Comments: [address] [place], [address] ALT 15 U/L (Abnormal) Range: 16-61 02-Jwj-64425:17 AST(SGOT) Comments: [address], [address] AST 20 U/L (Normal) Range: 15-37 80-Etd-65551:17 Platelet Count Comments: [address], [address] PLT 178 K/mm3 (Normal) Range: 150-450 50-Sht-05558:17 Valproic Acid (Depakene) Level Comments: [address] [place], [address] VALPROIC ACID 73 ug/mL (Normal) Range: 50-100 89-Xxe-801965:05 Basic Metabolic Profile (BMP) Comments: [address], [address] GAP 4 (Abnormal) Range: 5-15 CO2 33.0 [...] Comments: Please note revised GLUCOSE reference range szmcpihrv30/02/2018. 00-Fxb-263813:05 CBC W/Diff, Automated Comments: [facility] [address]soy[address] [place], [address] Absolute Lymph 1.28 {X10_3/ul} (Normal) Range: 0.83-4.51 [...] 4.6-6.2 WBC 6.7 K/mm3 (Normal) Range: 4.4-11.0 78-Dkf-667929:02 Microscopic Examination Comments: PATIENT WAS FASTINGPERFORMED BY: b3 bio Ajspgu4587 [facility] [id number] Bacteria Few (Normal) Mucus Threads Present (Normal) Epithelial Cells (non renal) None seen {/hpf} (Normal) Range: 0 - 10 RBC 0-2 {/hpf} (Normal) Range: 0 - 2 WBC 0-5 {/hpf} (Normal) Range: 0 - 5 92-Edx-705992:02 TSH (50837) Comments: PATIENT WAS FASTINGPERFORMED BY: b3 bioAstra Health CenterPxnkbl0011 [facility] [id number] TSH 3.530 {uIU/mL} (Normal) Range: 0.450-4.500 29-Zfv-384520:02 URINALYSIS, W/ MICRO (53479) Comments: PATIENT WAS FASTINGPERFORMED BY: [facility]6370 [facility] [id number] Microscopic Examination See below: (Normal) Comments: Microscopic was indicated and was performed. Microscopic Examination MICRON (Normal) Comments: Microscopic follows if indicated. Nitrite, Urine Negative (Normal) Urobilinogen,Semi-Qn 0.2 mg/dL (Normal) Range: 0.2-1.0 Bilirubin Negative (Normal) Occult Blood Negative (Normal) Ketones Negative (Normal) Glucose Negative (Normal) Protein Trace (Normal) WBC Esterase Negative (Normal) Appearance Clear (Normal) Urine-Color Yellow (Normal) pH 7.0 (Normal) Range: 5.0-7.5 Specific [place] 1.015 (Normal) Range: 1.005-1.030 70-Lsp-115875:02 MICROALBUMIN: CREATININE RATIO Comments: PATIENT WAS FASTINGPERFORMED BY: [facility]6370 [facility] [id number] (16158) AND (36490) Alb/Creat Ratio 167.0 {mg/g_creat} (Abnormal) Range: 0.0-30.0 Albumin, Urine 110.4 ug/mL (Normal) Creatinine, Urine 66.1 mg/dL (Normal) 02-Kql-727337:02 METABOLIC PANEL, COMPREHENSIVE Comments: PATIENT WAS FASTINGPERFORMED BY: b3 bioRehabilitation Hospital of Southern New MexicoTawwcd0047 [facility] [id number] (63654) ALT (SGPT) 16 [iU]/L (Normal) Range: 0-44 [...] Glucose, Serum 101 mg/dL (Abnormal) Range: 65-99 80-Qwv-041923:02 LIPID PANEL (65698) Comments: PATIENT WAS FASTINGPERFORMED BY: [employer] Seppub7620 [facility] [id number] LDL/HDL Ratio 1.3 {ratio_units} (Normal) Range: 0.0-3.6 Comments: LDL/HDL Ratio Men Women 1/2 Avg.Risk 1.0 1.5 Av g.Risk 3.6 3.2 2X Avg.Risk 6.2 5.0 3X Avg.Risk 8.0 6.1 LDL Cholesterol Calc 64 mg/dL (Normal) Range: 0-99 VLDL Cholesterol Justo 16 mg/dL (Normal) Range: 5-40 HDL Cholesterol 50 mg/dL (Normal) Triglycerides 79 mg/dL (Normal) Range: 0-149 Cholesterol, Total 130 mg/dL (Normal) Range: 100-199 56-Hsq-436369:02 CBC W/AUTO DIFF WBC (01179) Comments: PATIENT WAS FASTINGPERFORMED BY: [employer]6370 [facility] [id number] Immature Grans (Abs) 0.0 {x10E3/uL} (Normal) Range: [...] 4.14-5.80 WBC 6.9 {x10E3/uL} (Normal) Range: 3.4-10.8 96-Qxd-817325:52 HgA1C , Office (48915) HgA1C , Office 5.8 % (Normal) Range: 4.6 - 7.1 :52 Blood Glucose , Office (01572) Blood Glucose , Office 110 (Normal) 67-Qvd-221529:01 Microscopic Examination Comments: PATIENT NOT FASTINGPERFORMED BY: [facility] Vauyov5257 [facility] [id number] Bacteria Few (Normal) Mucus Threads Present (Normal) Cast Type Hyaline casts (Normal) Casts Present {/lpf} (Abnormal) Epithelial Cells (non renal) None seen {/hpf} (Normal) Range: 0 - 10 RBC 0-2 {/hpf} (Normal) Range: 0 - 2 WBC 0-5 {/hpf} (Normal) Range: 0 - 5 68-Qhh-630460:40 Urine Drug Screen (VISTA) Comments: [facility] [address]odd[address] [place], [place], [address] THC NEGATIVE (Normal) PCP NEGATIVE (Normal) OPIATES [...] TESTING MUST BE ORDERED SEPARATELY. USE TESTMNEMONIC: [facility] :06 Alcohol, Blood (Medical)-Serum Comments: [facility] [address]ug[address] [place], [place], [address] SERUM ETOH < 3.0 mg/dL (Normal) Comments: The serum:whole blood ethanol ratio is approximately 1.14and varies slightly with hematocrit.Medical Alcohol reference interval and critical value innon-tolerant individuals; 50 - 100 Impairment 100 Intoxication 100 - 250 Severe Poisoning 250 - 400 Deep/possible fatal coma :06 Basic Metabolic Profile (BMP) Comments: [facility] [address]vqom[address] [place], [place], [address] GAP 8 (Normal) Range: 5-15 CO2 29.0 [...] A.D.A. criteria. :06 CBC W/Diff, Automated Comments: [facility] Cxzbzkntqz59[address] [place], [place], [address] Absolute Lymph 1.12 {X10_3/ul} (Normal) Range: 0.83-4.51 [...] 4.6-6.2 WBC 8.7 K/mm3 (Normal) Range: 4.4-11.0 16-Niv-748748:06 Valproic Acid (Depakene) Level Comments: [facility] Mdcxszkyfv5496 [address] [place], [place], [address] VALPROIC ACID 49 ug/mL (Abnormal) Range: 50-100 7-Ahw-272361:29 HGB A1C (37150) HGB A1C 5.9 % (Normal) Range: 4.6 - 7.1 :57 TSH (01856) Comments: PATIENT WAS FASTINGPERFORMED BY: LabCoAstra [facility] CenterLsmfbl7991 [facility] [id number] TSH 3.020 {uIU/mL} (Normal) Range: 0.450-4.500 89-Rlw-480713:01 URINALYSIS, W/ MICRO (30447) Comments: PATIENT NOT FASTINGPERFORMED BY: b3 bio Uwhihp6928 [facility] [id number] Microscopic Examination See below: (Normal) Comments: Microscopic was indicated and was performed. Microscopic Examination MICRON (Normal) Comments: Microscopic follows if indicated. Nitrite, Urine Negative (Normal) Urobilinogen,Semi-Qn 0.2 mg/dL (Normal) Range: 0.2-1.0 Bilirubin Negative (Normal) Occult Blood Negative (Normal) Ketones Negative (Normal) Glucose Negative (Normal) Protein Negative (Normal) WBC Esterase Negative (Normal) Appearance Clear (Normal) Urine-Color Yellow (Normal) pH 6.5 (Normal) Range: 5.0-7.5 Specific [place] 1.010 (Normal) Range: 1.005-1.030 10-Nkb-706271:01 MICROALBUMIN: CREATININE RATIO Comments: PATIENT NOT FASTINGPERFORMED BY: [employer]6370 [facility] [id number] (51616) AND (92762) Microalb/Creat Ratio 43.2 {mg/g_creat} (Abnormal) Range: 0.0-30.0 Microalbumin, Urine 20.9 ug/mL (Normal) Creatinine, Urine 48.4 mg/dL (Normal) 14-Qwz-535158:57 METABOLIC PANEL, COMPREHENSIVE Comments: PATIENT WAS FASTINGPERFORMED BY: b3 bio Lzbxzl1553 [facility] [id number] (61792) ALT (SGPT) 6 [iU]/L (Normal) Range: 0-44 [...] Glucose, Serum 79 mg/dL (Normal) Range: 65-99 08-Dmy-204474:57 LIPID PANEL (87140) Comments: PATIENT WAS FASTINGPERFORMED BY: [employer]70 [facility] [id number] LDL/HDL Ratio 1.2 {ratio_units} (Normal) Range: 0.0-3.6 Comments: LDL/HDL Ratio Men Women 1/2 Avg.Risk 1.0 1.5 Av g.Risk 3.6 3.2 2X Avg.Risk 6.2 5.0 3X Avg.Risk 8.0 6.1 LDL Cholesterol Calc 51 mg/dL (Normal) Range: 0-99 VLDL Cholesterol Justo 17 mg/dL (Normal) Range: 5-40 HDL Cholesterol 42 mg/dL (Normal) Triglycerides 84 mg/dL (Normal) Range: 0-149 Cholesterol, Total 110 mg/dL (Normal) Range: 100-199 66-Oxa-249557:57 CBC W/AUTO DIFF WBC (26777) Comments: PATIENT WAS FASTINGPERFORMED BY: [facility]6370 [facility] [id number] Immature Grans (Abs) 0.0 {x10E3/uL} (Normal) Range: [...] 4.14-5.80 WBC 8.5 {x10E3/uL} (Normal) Range: 3.4-10.8 8-Ana-618344:23 Blood Glucose , Office (83963) Blood Glucose , Office 106 (Normal) 37-Zcj-875881:31 PSA (PROSTATE SPECIFIC Comments: PATIENT WAS FASTINGPERFORMED BY: [facility]6370 [facility] [id number] ANTIGEN) (V76.44) Prostate Specific Ag, 1.6 ng/mL (Normal) Range: 0.0-4.0 Serum Comments: Car ECLIA methodology. .According to the [place] [employer], Serum PSA shoulddecrease and remain at undetectable levels after radicalprostatectomy. The AUA defines biochemical recurrence as an initialPSA value 0.2 ng/mL or greater followed by a subsequent confirmatoryPSA value 0.2 ng/mL or greater.Values obtained with d ifferent assay methods or kits cannot be usedinterchangeably. Results cannot be interpreted as absolute evidenceof the presence or absence of malignant disease. :31 HGB A1C (91328) Comments: PATIENT WAS FASTINGPERFORMED BY: [facility] Gcrpvn6663 [facility] [place] [id number] Hemoglobin A1c 6.0 % (Abnormal) Range: 4.8-5.6 Comments: . Pre-diabetes: 5.7 - 6.4 Diabetes: >6.4 Glycemic control for adults with diabetes: <7.0 :31 TSH (THYROID STIMULATING Comments: PATIENT WAS FASTINGPERFORMED BY: [facility] Jfzvis6026 [place] [facility] HospitalD[facility] [place] [id number] HORMONE) (93224) TSH 2.990 {uIU/mL} (Normal) Range: 0.450-4.500 :31 CALCIFEDIOL (75515) Comments: PATIENT WAS FASTINGPERFORMED BY: [facility] Xsnhgn6169 [place] [facility] HospitalDublin [place] [id number] Vitamin D, 25-Hydroxy 29.6 ng/mL (Abnormal) Range: 30.0-100.0 Comments: Vitamin D deficiency has been defined by the [place] of[facility] and an Endocrine Society practice guideline as alevel of serum 25-OH vitamin D less than 20 ng/mL (1,2).The Endocrine Society went on to further define vitamin Dinsufficiency as a level between 21 and 29 ng/mL (2).1. IOM ([place] of Medicine). 2010. Dietary reference intakes for calcium and D. [place]: The National Academies Press.2. Forrest MF, [place], Lexi ESPINOZA, et al. Evaluation, treatment, and prevention of vitamin D deficiency: an Endocrine Society clinical practice guideline. JCEM. 2010; 96(7):1911-30. :31 MICROALBUMIN: CREATININE RATIO Comments: PATIENT WAS FASTINGPERFORMED BY: [facility] Hejolp9191 [place] [facility] HospitalDublin [place] [id number] (52098) AND (91203) Microalb/Creat Ratio 408.1 {mg/g_creat} (Abnormal) Range: 0.0-30.0 Microalbumin, Urine 85.3 ug/mL (Normal) Creatinine, Urine 20.9 mg/dL (Normal) 34-Gmz-371834:31 METABOLIC PANEL, COMPREHENSIVE Comments: PATIENT WAS FASTINGPERFORMED BY: b3 bio Vyctyx8437 [facility] [id number] (48754) ALT (SGPT) 9 [iU]/L (Normal) Range: 0-44 [...] Glucose, Serum 117 mg/dL (Abnormal) Range: 65-99 19-Ebq-717834:31 LIPID PANEL (64031) Comments: PATIENT WAS FASTINGPERFORMED BY: b3 bioRehabilitation Hospital of Southern New MexicoNdjnqi8664 [facility] [id number] LDL/HDL Ratio 1.1 {ratio_units} (Normal) Range: 0.0-3.6 Comments: LDL/HDL Ratio Men Women 1/2 Avg.Risk 1.0 1.5 Av g.Risk 3.6 3.2 2X Avg.Risk 6.2 5.0 3X Avg.Risk 8.0 6.1 LDL Cholesterol Calc 68 mg/dL (Normal) Range: 0-99 VLDL Cholesterol Justo 18 mg/dL (Normal) Range: 5-40 HDL Cholesterol 63 mg/dL (Normal) Triglycerides 88 mg/dL (Normal) Range: 0-149 Cholesterol, Total 149 mg/dL (Normal) Range: 100-199 32-Xug-759843:31 CBC with auto diff (85912) Comments: PATIENT WAS FASTINGPERFORMED BY: [facility] Uksoqr6067 [facility] [id number] Immature Grans (Abs) 0.0 {x10E3/uL} (Normal) Range: [...] 4.14-5.80 WBC 6.4 {x10E3/uL} (Normal) Range: 3.4-10.8 60-Elr-023082:00 Urine Drug Screen (VISTA) Comments: [facility] Od[address]fa[address] [place], [place], [address] THC NEGATIVE (Normal) PCP NEGATIVE (Normal) OPIATES [...] TESTING MUST BE ORDERED SEPARATELY. USE TESTMNEMONIC: [facility] 02-Obp-570641:45 Alcohol, Blood (Medical)-Serum Comments: [facility] [address]dcvmsk[address] [place], [place], [address] SERUM ETOH < 3.0 mg/dL (Normal) Comments: The serum:whole blood ethanol ratio is approximately 1.14and varies slightly with hematocrit.Medical Alcohol reference interval and critical value innon-tolerant individuals; 50 - 100 Impairment 100 Intoxication 100 - 250 Severe Poisoning 250 - 400 Deep/possible fatal coma 45-Gyr-281906:45 Basic Metabolic Profile (BMP) Comments: [facility] Z[address]sljyirb[address] [place], [place], [address] GAP 1 (Abnormal) Range: 5-15 CO2 31.0 [...] <126 mg/dLsuggests IMPAIRED HOMEOSTASIS per A.D.A. criteria. 38-Ujj-415826:45 CBC W/Diff, Automated Comments: [facility] [address] [place], [address] Absolute Lymph 1.30 {X10_3/ul} (Normal) Range: 0.83-4.51 [...] Range: 4.4-11.0 :44 Alcohol, Blood (Medical)-Serum Comments: [facility] [address] [place], [place], [id number] SERUM ETOH < 3.0 mg/dL (Normal) Comments: The serum:whole blood ethanol ratio is approximately 1.14and varies slightly with hematocrit.Medical Alcohol reference interval and critical value innon-tolerant individuals; 50 - 100 Impairment 100 Intoxication 100 - 250 Severe Poisoning 250 - 400 Deep/possible fatal coma :44 CBC W/Diff, Automated Comments: [facility] [address] [place], [address] Absolute Lymph 1.10 {X10_3/ul} (Normal) [...] 4.6-6.2 WBC 6.7 K/mm3 (Normal) Range: 4.4-11.0 47-Llv-79850:44 Comprehensive Metabolic Profil Comments: [facility] [address] [place], [address] GAP 1 (Abnormal) Range: 5-15 CO2 31.0 [...] 70-110 :44 Urine Drug Screen (VISTA) Comments: [facility] [address] [place], [place], [id number] THC NEGATIVE (Normal) PCP NEGATIVE (Normal) OPIATES [...] UTCA :44 Valproic Acid (Depakene) Level Comments: [facility] [address] [place], [place], [id number] VALPROIC ACID < 3 ug/mL (Abnormal) Range: 50-100 88-Clb-054541:53 CBC, PLATELETS & MANUAL Comments: PATIENT NOT FASTINGPERFORMED BY: [facility] Jcodae9913 [facility] [id number] Information: [id number] DIFF ([id number]) Immature Grans (Abs) 0.0 {x10E3/uL} (Normal) Range: [...] Range: 3.4-10.8 :56 Alcohol, Blood (Medical)-Serum Comments: [facility] U[address]xcwpz[address] [facility] [place], [address] SERUM ETOH 5.0 mg/dL (Normal) Comments: The serum:whole blood ethanol ratio is approximately 1.14and varies slightly with hematocrit.Medical Alcohol reference interval and critical value innon-tolerant individuals; 50 - 100 Impairment 100 Intoxication 100 - 250 Severe Poisoning 250 - 400 Deep/possible fatal coma :56 Basic Metabolic Profile (BMP) Comments: [facility] Q[address] [facility] [place], [place], [id number] GAP 6 (Normal) Range: 5-15 CO2 29.0 [...] A.D.A. criteria. 09-May-20169:56 CBC W/Diff, Automated Comments: [facility] [address] [place], [place], [id number] Absolute Lymph 1.36 {X10_3/ul} (Normal) Range: 0.83-4.51 [...] 4.4-11.0 :56 Valproic Acid (Depakene) Level Comments: [facility] [address] [place], [place], [id number] VALPROIC ACID 33 ug/mL (Abnormal) Range: 50-100 :50 Urine Drug Screen (VISTA) Comments: [facility] [address] [place], [place], [address] THC NEGATIVE (Normal) PCP NEGATIVE (Normal) OPIATES [...] TESTING MUST BE ORDERED SEPARATELY. USE TESTMNEMONIC: [facility] :53 CBC, PLATELETS & MANUAL Comments: PATIENT NOT FASTINGPERFORMED BY: [facility] Vakfxw8669 [facility] [id number] Information: [id number] DIFF ([id number]) Immature Grans (Abs) 0.0 {x10E3/uL} (Normal) Range: [...] 4.14-5.80 WBC 6.7 {x10E3/uL} (Normal) Range: 3.4-10.8 88-Vik-431226:56 CBC, PLATELETS & MANUAL Comments: PATIENT NOT FASTINGPERFORMED BY: [facility] Htidoq6614 [facility] [id number] Information: [id number] DIFF ([id number]) Immature Grans (Abs) 0.0 {x10E3/uL} (Normal) Range: [...] 4.14-5.80 WBC 7.7 {x10E3/uL} (Normal) Range: 3.4-10.8 08-Anz-768964:28 Metabolic Panel, Comprehensive Comments: PATIENT NOT FASTINGPERFORMED BY: [facility] CenterJzsxml9083 [facility] [id number] ([id number]) ALT (SGPT) 7 [iU]/L (Normal) Range: 0-44 [...] Glucose, Serum 99 mg/dL (Normal) Range: 65-99 35-Atz-639088:28 CBC, Platelets & Auto Comments: PATIENT NOT FASTINGPERFORMED BY: [facility] CenterAzibns6639 [facility] [id number] Information: [id number] Diff ([id number]) Immature Grans (Abs) 0.0 {x10E3/uL} (Normal) Range: [...] 6.9 {x10E3/uL} (Normal) Range: 3.4-10.8 :28 TSH ([id number]) Comments: PATIENT NOT FASTINGPERFORMED BY: b3 bioAstra Health CenterHfwvyj7761 [facility] [id number] TSH 3.600 {uIU/mL} (Normal) Range: 0.450-4.500 :06 HgA1C , Office (68470) Comments: 5.9 HgA1C , Office 5.9 % (Normal) Range: 4.6 - 7.1 :06 Blood Glucose , Office (25924) Blood Glucose , Office 91 (Normal) :06 Urinalysis, Office (83331) UA - LEUKOCYTE ESTERASE Negative (Normal) UA - NITRITE Negative (Normal) URINE UROBILINGN SALMA TIMED Normal mg/dL (Normal) UA - PROTEIN Negative mg/dL (Normal) UA - PH 6 (Abnormal) UA - BLOOD Negative (Normal) UA - SPECIFIC GRAVITY 1.010 (Normal) UA - KETONES Negative mg/dL (Normal) UA - BILIRUBIN Negative (Normal) UA - GLUCOSE Negative (Normal) 55-Exs-749155:06 CBC, PLATELETS & MANUAL Comments: PATIENT NOT FASTINGPERFORMED BY: b3 bio Qobkxj5308 [facility] [id number] Information: [id number] DIFF ([id number]) Immature Grans (Abs) 0.0 {x10E3/uL} (Normal) Range: [...] 4.14-5.80 WBC 6.1 {x10E3/uL} (Normal) Range: 3.4-10.8 89-Ejo-004799:50 CBC, PLATELETS & MANUAL Comments: PATIENT NOT FASTINGPERFORMED BY: [facility]6370 [facility] [id number] Information: [id number] DIFF (89073) Immature Grans (Abs) 0.0 {x10E3/uL} (Normal) Range: [...] 4.14-5.80 WBC 5.7 {x10E3/uL} (Normal) Range: 3.4-10.8 5-Xhz-228325:50 CBC, PLATELETS & MANUAL Comments: PATIENT NOT FASTINGPERFORMED BY: [facility] Gbfcuw0249 [facility] [id number] Information: [id number] DIFF ([id number]) Immature Grans (Abs) 0.0 {x10E3/uL} (Normal) Range: [...] 4.14-5.80 WBC 8.2 {x10E3/uL} (Normal) Range: 3.4-10.8 65-Nuf-440195:42 CBC, PLATELETS & MANUAL Comments: PATIENT NOT FASTINGPERFORMED BY: ABHINAV [facility] Tzapbx6889 [facility] [id number] Information: [id number] DIFF (39663) Immature Grans (Abs) 0.0 {x10E3/uL} (Normal) Range: [...] 4.14-5.80 WBC 7.0 {x10E3/uL} (Normal) Range: 3.4-10.8 21-Jxf-342475:44 MRSA Wound DNA by PCR Comments: Specimen Source? NASAL, [facility] [address] [place], [address] SA RESULT NEGATIVE (Normal) MRSA RESULT Negative (Normal) 74-Cnk-717857:53 CBC, PLATELETS & MANUAL Comments: PATIENT NOT FASTINGPERFORMED BY: [facility] [place] [address] [id number] Information: [id number] DIFF (82431) Immature Grans (Abs) 0.0 {x10E3/uL} (Normal) Range: [...] 4.14-5.80 WBC 10.1 {x10E3/uL} (Normal) Range: 3.4-10.8 30-Sxz-391620:13 PSA (PROSTATE SPECIFIC Comments: PATIENT NOT FASTINGPERFORMED BY: [facility]6370 [facility] [id number] ANTIGEN) (V76.44) Prostate Specific Ag, 1.2 ng/mL (Normal) Range: 0.0-4.0 Serum Comments: Car ECLIA methodology. .According to the [place] [employer], Serum PSA shoulddecrease and remain at undetectable levels after radicalprostatectomy. The AUA defines biochemical recurrence as an initialPSA value 0.2 ng/mL or greater followed by a subsequent confirmatoryPSA value 0.2 ng/mL or greater.Values obtained with d ifferent assay methods or kits cannot be usedinterchangeably. Results cannot be interpreted as absolute evidenceof the presence or absence of malignant disease. 15-Ifq-470890:13 Hemoglobin Glyclated (HGB A1C) Comments: PATIENT NOT FASTINGPERFORMED BY: [facility]6370 [facility] [id number] ([id number]) Hemoglobin A1c 6.0 % (Abnormal) Range: 4.8-5.6 Comments: . Pre-diabetes: 5.7 - 6.4 Diabetes: >6.4 Glycemic control for adults with diabetes: <7.0 28-Knl-290857:13 DHEA-S (DEHYDROEPIANDROSTERONE Comments: PATIENT NOT FASTINGPERFORMED BY: [facility] Qtvbvy8915 [place] [id number] SULFATE) ([id number]) DHEA-Sulfate 133.8 ug/dL (Normal) Range: 48.9-344.2 31-Jpm-847424:13 TESTOSTERONE TOTAL (47983) Comments: PATIENT NOT FASTINGPERFORMED BY: [facility] Kyugcg9459 [facility] [place] [id number] Comment: TESTM (Normal) Comments: Adult male reference interval is based on a population of lean malesup to 40 years old. Testosterone, Serum 529 ng/dL (Normal) Range: 348-1197 79-Hob-692474:13 TSH ([id number]) Comments: PATIENT NOT FASTINGPERFORMED BY: [facility] Qawxev4280 [facility] [place] [id number] TSH 2.910 {uIU/mL} (Normal) Range: 0.450-4.500 91-Qjm-589791:13 METABOLIC PANEL, COMPREHENSIVE Comments: PATIENT NOT FASTINGPERFORMED BY: [facility] Cxjaoi2961 [facility] [id number] ([id number]) ALT (SGPT) 7 [iU]/L (Normal) Range: 0-44 [...] Glucose, Serum 92 mg/dL (Normal) Range: 65-99 82-Ppn-532334:13 CBC W/AUTO DIFF WBC Comments: PATIENT NOT FASTINGPERFORMED BY: [facility] Axquir0977 [facility] [id number] Information: [id number] ([id number]) Immature Grans (Abs) 0.0 {x10E3/uL} (Normal) Range: [...] mental state Altered mental state : Reviewed Spool Winder Letter Indication: Altered mental state Altered mental status, unspecified altered mental status type : Reviewed Lab Indication: Altered mental status, unspecified altered mental status type Altered mental status, unspecified altered mental status type : Reviewed Diagnostic Tests Indication: Altered mental status, unspecified altered mental status type Altered mental status, unspecified altered mental status type : Reviewed Spool Winder Letter Indication: Altered mental status, unspecified altered [...] of lower extremity, unspecified laterality : Reviewed Spool Winder Letter Indication: Cellulitis of lower extremity, unspecified laterality Mild intermittent asthma without complication : Continue Current Prescription(s) Indication: Mild intermittent asthma without complication Controlled diabetes mellitus : Follow up in 3 months Indication: Controlled diabetes mellitus Essential hypertension : HTN/CAD Red Flags Indication: Essential hypertension Dog bite of upper extremity, right, subsequent encounter : Reviewed Spool Winder Letter Indication: Dog bite of upper extremity, right, subsequent encounter Cellulitis of forearm : Continue Current Prescription(s) Indication: Cellulitis of forearm Dog bite of upper extremity, right, initial encounter : Reviewed Spool Winder Letter Indication: Dog bite of upper extremity, [...] Sinusitis, acute Planned Observations Metabolic Panel, Basic ([id number])Indication: Therapeutic drug monitoring On: 9-Swk-695558:23 Request CBC, PLATELETS & MANUAL DIFF ([id number])Indication: Essential hypertension On: 19-Mar-2017 Request CBC, PLATELETS & MANUAL DIFF ([id number])Indication: Essential hypertension On: 12-Mar-2017 Request CBC, PLATELETS & MANUAL DIFF ([id number])Indication: Essential hypertension On: 05-Mar-2017 Request CBC, PLATELETS & MANUAL DIFF ([id number])Indication: Essential hypertension On: 26-Feb-2017 Request CBC, PLATELETS & MANUAL DIFF ([id number])Indication: Essential hypertension On: 19-Feb-2017 Request CBC, PLATELETS & MANUAL DIFF ([id number])Indication: Essential hypertension On: 12-Feb-2017 Request CBC, PLATELETS & MANUAL DIFF ([id number])Indication: Essential hypertension On: 05-Feb-2017 Request CBC, PLATELETS & MANUAL DIFF ([id number])Indication: Essential hypertension On: 29-Jan-2017 Request CBC, PLATELETS & MANUAL DIFF ([id number])Indication: Essential hypertension On: 22-Jan-2017 Request CBC, PLATELETS & MANUAL DIFF ([id number])Indication: Essential hypertension On: 15-Jan-2017 Request HgA1C , Office ([id number])Indication: Controlled diabetes mellitus On: 6-Unf-483101:23 Request CBC, PLATELETS & MANUAL DIFF ([id number])Indication: Essential hypertension On: 08-Jan-2017 Request CBC, PLATELETS & MANUAL DIFF ([id number])Indication: Essential hypertension On: 01-Jan-2017 Request CBC, PLATELETS & MANUAL DIFF ([id number])Indication: Essential hypertension On: 25-Dec-2016 Request CBC, PLATELETS & MANUAL DIFF ([id number])Indication: Essential hypertension On: 18-Dec-2016 Request CBC, PLATELETS & MANUAL DIFF ([id number])Indication: Essential hypertension On: 11-Dec-2016 Request CBC, PLATELETS & MANUAL DIFF ([id number])Indication: Essential hypertension On: 04-Dec-2016 Request CBC, PLATELETS & MANUAL DIFF ([id number])Indication: Essential hypertension On: 27-Nov-2016 Request CBC, PLATELETS & MANUAL DIFF ([id number])Indication: Essential hypertension On: 20-Nov-2016 Request CBC, PLATELETS & MANUAL DIFF ([id number])Indication: Essential hypertension On: 13-Nov-2016 Request CBC, PLATELETS & MANUAL DIFF ([id number])Indication: Essential hypertension On: 06-Nov-2016 Request CBC, PLATELETS & MANUAL DIFF ([id number])Indication: Essential hypertension On: 30-Oct-2016 Request Metabolic Panel, Basic ([id number])Indication: Mixed erectile dysfunction On: 95-Luc-700299:23 Request CBC, PLATELETS & MANUAL DIFF ([id number])Indication: Essential hypertension On: 23-Oct-2016 Request CBC, PLATELETS & MANUAL DIFF ([id number])Indication: Essential hypertension On: 16-Oct-2016 Request CBC, PLATELETS & MANUAL DIFF ([id number])Indication: Essential hypertension On: 09-Oct-2016 Request CBC, PLATELETS & MANUAL DIFF ([id number])Indication: Essential hypertension On: 02-Oct-2016 Request CBC, PLATELETS & MANUAL DIFF ([id number])Indication: Essential hypertension On: 25-Sep-2016 Request CBC, PLATELETS & MANUAL DIFF ([id number])Indication: Essential hypertension On: 18-Sep-2016 Request CBC, PLATELETS & MANUAL DIFF ([id number])Indication: Essential hypertension On: 11-Sep-2016 Request CBC, PLATELETS & MANUAL DIFF ([id number])Indication: Essential hypertension On: 04-Sep-2016 Request CBC, PLATELETS & MANUAL DIFF ([id number])Indication: Essential hypertension On: 28-Aug-2016 Request CBC, PLATELETS & MANUAL DIFF ([id number])Indication: Essential hypertension On: 21-Aug-2016 Request CBC, PLATELETS & MANUAL DIFF ([id number])Indication: Essential hypertension On: 14-Aug-2016 Request CBC, PLATELETS & MANUAL DIFF ([id number])Indication: Essential hypertension On: 07-Aug-2016 Request CBC, PLATELETS & MANUAL DIFF ([id number])Indication: Essential hypertension On: 31-Jul-2016 Request CBC, PLATELETS & MANUAL DIFF ([id number])Indication: Essential hypertension On: 24-Jul-2016 Request CBC, PLATELETS & MANUAL DIFF ([id number])Indication: Essential hypertension On: 17-Jul-2016 Request CBC, PLATELETS & MANUAL DIFF ([id number])Indication: Essential hypertension On: 10-Jul-2016 Request CBC, PLATELETS & MANUAL DIFF ([id number])Indication: Essential hypertension On: 03-Jul-2016 Request CBC, PLATELETS & MANUAL DIFF ([id number])Indication: Essential hypertension On: 26-Jun-2016 Request CBC, PLATELETS & MANUAL DIFF ([id number])Indication: Essential hypertension On: 19-Jun-2016 Request CBC, PLATELETS & MANUAL DIFF ([id number])Indication: Essential hypertension On: 12-Jun-2016 Request CBC, PLATELETS & MANUAL DIFF ([id number])Indication: Essential hypertension On: 05-Jun-2016 Request CBC, PLATELETS & MANUAL DIFF ([id number])Indication: Essential hypertension On: 29-May-2016 Request CBC, PLATELETS & MANUAL DIFF ([id number])Indication: Essential hypertension On: 22-May-2016 Request MICROALBUMIN: CREATININE RATIO ([id number]) AND ([id number])Indication: Weakness On: 86-Dgy-544877:22 Request CBC, PLATELETS & MANUAL DIFF ([id number])Indication: Essential hypertension On: 24-Apr-2016 Request MRSA Culture ([id number])Indication: Nasal lesion On: 35-Bum-355420:43 Request BELKIS CULTURE-BLOOD ([id number])Indication: History of bacteremia On: 47-Sju-376392:27 Request Aerobic Bacterial Culture ([id number])Indication: Nasal lesion On: 63-Ciu-130929:25 Request URINALYSIS, W/ MICRO ([id number])Indication: Essential hypertension On: 74-Xxy-406205:41 Request MICROALBUMIN: CREATININE RATIO ([id number]) AND ([id number])Indication: Essential hypertension On: 06-Cgy-704964:41 Request Planned Encounters Medical; 3 Week FU - On: 05-Sep-2018 8:30 [facility] Dhara Taylor DO, DO, Kathleen Medical; 4 Month FU - On: 03-Oct-2018 7:00 [facility] Dhara Taylor DO, DO, Kathleen Planned Procedures Flu Vaccine (Quadrivalent) 75030Wf: On: 30-Jul-2018 Intent Dhara Taylor DO, DO, Kathleen MRI BRAIN W/ CONTRAST ([id number])By: On: 07-May-2018 Intent Dhara Taylor DO, DO, Kathleen ELECTROCARDIOGRAM, COMPLETE (ECG) On: 29-Oct-2017 Intent ([id number])By: Dhara Taylor DO Comments: nsr no acute chg Dhara Taylor DO Spirometry ([id number])By: Claudia RESENDEZ, On: 29-Oct-2017 Intent Dhara Hendricks DO Comments: #1 severe obstruction #2 severe obstruction -not much different after brisk walk TDAP VACCINE >7 IM ([id number])By: Claudia On: 26-Apr-2017 Intent Dhara RESENDEZ DO, Kathleen Comments: Lot:[id number]:05/23/19Dose:0.5mgRoute:im Site:[facility] By:GLORIA signed ELECTROCARDIOGRAM, COMPLETE (ECG) On: 10-Jan-2017 Intent ([id number])By: Dhara Taylor DO Comments: pt refused Dhara Taylor DO Aerosol Treatment ([id number])By: Claudia On: 05-Aug-2015 Intent Dhara RESENDEZ DO, Kathleen Spirometry ([id number])By: Claudia RESENDEZ, On: 05-Aug-2015 Intent Dhara Hendricks [...] Reason for hospitalization note: (1 week at [facility] I broke up a dog [...] Reason for hospitalization note: (1 week at [facility] I broke up a dog fight and I had some stiches in the rt arm). Patient has been compliant with instructions. Current medication use: no side End: 26-Apr-2017 15:00 effects and compliant with dosing regimen.Encounter Diagnosis: Dog bite of upper extremity, right, initial encounter, Cellulitis of forearm, Need for Tdap vaccination (Renamed from Need for yvoaygcrov-nehhgui-nanmdpanc (Tdap) vaccine, adult/a dolescent) [facility] [...] like [place] [address] [place]. Have been incontinent of urine and extreme weakness. Was seeing Dr. Longoria at [facility] switched to Dr. Zhu Diagnosis: Weakness, End: [...]
--- OUTSIDE RECORDS SUMMARY | 2018-10-15 01:44 | XMS RPT_ITS | Continuity of Care Document ---
:1955 Author Organization [facility] Address [address] [place] [address] Phone Care Team Providers Name Role Phone Dhara Taylor DO Unavailable [facility] Unavailable [place] Unavailable Ansley Abdi Unavailable Unavailable Unavailable Unavailable [...] Active Schizophrenia (F20.9, 295.90) Comments: managed by [facility] Status: Active Smoker (F17.200, 305.1) Status: [...] Propionate 50 MCG/ACT Nasal Suspension 1 (one) [place] qd for 0 days Quantity: 1 {Container} [...] brain normalmental status back to baseline per fretted instruments inspector- Isaac Status: Resolved as of 21-May-2018 BMI 28.0-28.9,adult (Z68.28, V85.24) Status: Resolved as of 21-May-2018 BMI 29.0-29.9,adult (Z68.29, V85.25) Status: Inactive as of 02-May-2018 Cannabis abuse (F12.10, 305.20) Comments: per family preservation caseworker knowledge -inactive Status: Inactive as of 21-May-2018 [...] for Tdap vaccination (Renamed from Need for lmdylewgma-lhqfgdc-qxmkltchl (Tdap) vaccine, adult/adolescent) (Z23, V06.1) Status: Resolved [...] V58.32) Comments: sutures placed in ER at [facility] Status: Inactive as of 29-Oct-2017 Weakness (R53.1, 780.79) Comments: is reducing depakote per self, sees psych Ast[place]a Status: Inactive as of 10-Jan-2017 Procedures Procedure Dates Details Tonsillectomy Completed Date Value Details 08-May-2018 History and Physical Exam Result: Comments: See Note; NOTES: [facility] Medical Records Department [address] [place] [address] History and Physical 05/08/182104 MR#: [id number] Acct: [id number] Name: CHARISSA SOSA E Rep #: [id number] : 1955 62 From: Kristal Larsen PCP: [...] diabetes mellitus Status: Chronic Qualifiers: Diabetes mellitus skilled nursing insulin use: without skilled nursing use Diabetes mellitus complication statu s: without complication Qualified Code(s): E11.9 - Type 2 diabetes mellitus without complications (6) Bilateral leg edema Status: Chronic History of Present Illness Date of Admission: 05/08/18 Chief C omplaint: Worsened confusion The patient is a 62 y/o M, Living in [facility] w/ PMHx: Schizophrenia w/ Prior Suicide Attempts, [...] be performed who now re-presents to the [facility] ED on 05/08/18 with confusion and noted aud itory hallucinations with jail confirmed taking his schizophrenia medications, failure to understand how to perform basic tasks he normally performs over the last 48 hours with PCP and intermediate discussion with patient and now willingness to have MRI performed. intermediate notes that this is very different from [...] Anxiety, Depression, Prior suicide attempt, Schizophrenia Lives: [facility] Smoking Status: Current every day smoker Tobacco [...] is a 62 y/o M, Living in Penitentiary w/ PMHx: Schizophrenia w/ Prior Suicide Attempts, Tobacco use, Chronic COPD, Diabet es mellitus type II, CHF Unclear Type, PVD w/ chronic BL LE lymphedema, LLE Venous Stasis Ulcer following [facility] who presents to the [facility] ED on 05/08/18 with confusion and noted auditory halluci nations with intermediate confirmed taking his schizophrenia medications, failure to understand how to perform basic tasks he normally performs over the last 48 hours with PCP and intermediate discussion wi th patient and now willingness [...] Lovenox. Code Visit OBSV E AND M: 40008 Initial observation care L3 05/08/18 2140 <Electronically signed by Kristal Larsen > Date Kristal Larsen Cosigner Signature: Date (if applicable) CC: Kristal Larsen; Dhara Taylor DO Signed 08-May-2018 Emergency Department Summary Result: Comments: See Note; NOTES: [facility] Medical Records Department [address] [place] [address] Emergency Department Summary 05/08/18 1748 MR#: [id number] Acct: [id number] Name: AJIT SOSA Rep #: [id number] : 1955 62 From: Petrona Rios MD PCP: Dhara Taylor DO Status: REG ER - ER Visit Summary Date of Service: 05/08/18 Chief Complaint: Confusion History of P resent Illness: The patient is a 62 M presenting with intermittent confusion. His staff member from his jail states that he has been confused intermittently since April 16. He was admitted at that time for TIA workup. During that admission patient refused MRI. He was seen again in the ED on May 02 for continued intermittent confusion. He refused MRI during the ED stay as well. Today jail d iscussed with his primary care physician Dr. Taylor who feels the patient needs an MRI according to jail staff and the patient. The patient is now agreeable to MRI. He was advised to come to the E D for further evaluation. intermediate staff states that he has been having [...] status, TIA This note was generated with [employer] dictation software. It may contain inc orrect [...] Primary Care Pr ovider. Call [facility] ([phone]) or report to the closest Emergency Room. Call 911 if necessary. 05/08/182128 <Electronically signed by Petrona Rios MD> Date _ Petrona Rios MD Cosigner Signature (If Indicated): Date CC: Dhara Taylor DO 08-May-2018 Brain/Head without Contrast Result: Comments: See Note; NOTES: [facility] Imaging Services [address] [place] [address] [place] [address] Brain/Head without Contrast MR#: [id number] Acct: [id number] Name: AJIT SOSA Rep #: [id number] : 1955 M 62 From: Lorne Augustine MD PCP: Dhara Taylor DO Status: REG ER Study: Brain/Head without Contrast Date of Exam: 05/08/18 Exam# [id number] Ordering Dr: Petrona Rios MD ST UDY: CT BRAIN WITHOUT CONTRAST REASON FOR [...] CC: Petrona Rios MD; Dhara Taylor DO Testing Machine Operator: Signed 08-May-2018 Chest 1 View Result: Comments: See Note; NOTES: [facility] Imaging Services [address] [place] [address] Chest 1 View MR#: [id number] Acct: [id number] Name: AJIT SOSA Rep #: [id number] : M 62 From: Lorne Augustine MD PCP: Dhara Taylor DO Status: REG ER Study: Chest 1 View Date of Exam: 05/08/18 Exam# [id number] Ordering Dr: Petrona Rios MD STUDY: X-RAY [...] CC: Petrona Rios MD; Dhara Taylor DO Testing Machine Operator: Signed 06-May-2018 12 Lead Electrocardiogram Result: Comments: See Note; NOTES: [facility] Cardiovascular Services [address] [place] [address] 12 Lead EKG 05/02/18 1555 MR#: [id number] Acct: [id number] Name: AJIT SOSA Rep # : [id number] : 1955 62 From: Ajit Benavidez MD [...] Normal ECG Confirmed by PRAMOD ALSTON, AJIT ([id number]), development editor DANNA LIZAMA ([id number]) on 05/06/2018 2:29:59 PM Referred By: VAISHALI Confirmed By:AJIT BENAVIDEZ MD 05/06/18 1430 Date Ajit Benavidez MD CC: Gabriela Barrett MD; Dhara Taylor DO Signed 03-May-2018 Emergency Department Summary Result: Comments: See Note; NOTES: [facility] Medical Records Department [address] [place] [address] Emergency Department Summary 05/02/18 1648 MR#: [id number] Acct: [id number] Name: AJIT SOSA Rep #: [id number] : 1955 62 From: Gabriela Barrett MD [...] presentation is not typical of his psychosis. intermediate staff member describes confusion with normal tasks [...] the week. Patient was monitored at the jail o rick the weekend. I did speak with Dr. Carter to update her on the patient's findings and plan as the patient was sent in by Dr. Taylor. Treatment Plan: [] Disposition: Discharge Impression: 1. Repor melchor slurred speech, resolved 2. Schizoaffective disorder This note was generated with [employer] Lives[employer] dictation software. It may contain incorrect words, spelling, and punctuation that were not noted in revie w of the chart prior to signing ED Disposition - Plan for ED Patient: Disposition: Home or Assisted Living Chief Complaint: Alt LOC Instructions: ED Confusion, ED Transient Ischemic Attack Referrals: Counseling,Center [GROUP OF PHYSICIANS] - As soon as possible Dhara Taylor DO [Primary Care Provider] - What to do if you have Problems For any increased pain, shortness of breath, bleeding, na usea or vomiting, chest pain, or any unexpected problems, contact your Primary Care Provider. Call [facility] ([phone]) or report to the closest Emergency Room. Call 911 if necessary. 05/03 0028 <Electronically signed by Gabriela Barrett MD> Date Gabriela Barrett MD Cosigner Signature (If Indicated): Date ____ CC: Dhara Taylor DO 02-May-2018 Discharge Instruction Result: Comments: See Note; NOTES: [facility] Medical Records Department [address] [place] [address] Discharge Instruction 05/02/182233 MR#: [id number] Acct: [id number] Name: Rolando SOSA Rep #: [id number] : 1955 62 From: Gabriela Barrett MD [...] without Contrast Result: Comments: See Note; NOTES: [facility] Imaging Services [address] [place] [address] Brain/Head without Contrast MR#: [id number] Acct: [id number] Name: SOSAAJIT Sera Rep #: [id number] : 1955 M 62 From: Edenilson Hernandez MD PCP: Dhara Taylor DO Status: REG ER Study: Brain/Head without Contrast Date of Exam: 05/02/18 Exam# [id number] Ordering Dr: Gabriela Barrett MD [facility] DY: CT BRAIN WITHOUT CONTRAST REASON [...] CC: Gabriela Barrett MD; Dhara Taylor DO Testing Machine Operator: Signed 16-Apr-2018 Brain/Head without Contrast Result: Comments: See Note; NOTES: [facility] Imaging Services [address] [place] [address] Brain/Head without Contrast MR#: [id number] Acct: [id number] Name: AJIT SOSA Rep #: [id number] : 1955 M 62 From: Jackson Conde DO PCP: Dhara Taylor DO Status: REG ER Study: Brain/Head without Contrast Date of Exam: 04/16/18 Exam# [id number] Ordering Dr: Petrona Rios MD STUD Y: [...] Jackson Conde DO at 17:16 EDT Tel [phone], Service support [phone], CC: Petrona Rios MD; Dhara Taylor DO Testing Machine Operator: Signed 16-Apr-2018 Chest 1 View Result: Comments: See Note; NOTES: [facility] Imaging Services [address] [place] [address] Chest 1 View MR#: [id number] Acct: [id number] Name: AJIT SOSA Rep #: [id number] : M 62 From: Jackson Conde DO PCP: Dhara Taylor DO Status: PRE ER Study: Chest 1 View Date of Exam: 04/16/18 Exam# [id number] Ordering Dr: Petrona Rios MD STUDY: X-RAY [...] of the upper abdomen. ORDER # : [id number] RAD/Chest 1 View IMPRESSION: No acute cardiopulmonary disease or interval change. Electronically Signed: Jackson Conde DO at 16:55 EDT Tel [phone], Service support [phone], CC: Petrona Rios MD; Dhara Taylor DO Testing Machine Operator: Signed 16-Apr-2018 Emergency Department Summary Result: Comments: See Note; NOTES: [facility] Medical Records Department [address] [place] [address] Emergency Department Summary 04/16/18 0514 MR#: [id number] Acct: [id number] Name: AJIT SOSA Rep #: [id number] : 1955 62 From: Quentin Winkler MD PCP: Dhara Taylor DO Status: DEP ER - ER Visit Summary Date of Service: 04/16/18 Chief Complaint: Left arm pain History o f Present Illness: The patient is a 62 M presenting for evaluation secondary left arm pain. Patient has a underlying history of living in a jail and has schizophrenia that is reasonably controlled [...] approved by a physician and his nursing terrazzo supervisor and was unable to take any [...] arm pain This note was generated with [employer] dictation software. It may contain incorrect words, [...] problems, contact your Primary Care Provider. Call [employer] ([phone]) or report to the closest Emergency Room. Call 911 if necessary. 04/16/18 0717 <Electronically signed by Quentin Winkler MD> Date Quentin Winkler MD Cosigner Signature (If Indicated): Date CC: Dhara Taylor DO 21-Mar-2018 Wound Ctr History AND Physical Result: Comments: See Note; NOTES: [facility] [address] [place] [address] Wound Ctr History AND Physical 03/21/182028 MR#: [id number] Acct: [id number] Name: AJIT RAMSEY Rep #: [id number] : 1955 62 From: Samantha Manuel DO [...] Chronic Current Visit: Yes Qualifiers: Diabetes mellitus skilled nursing insulin use: without skilled nursing use Diabetes mellitus complication stat us: without [...] odor or drainage. He lives in a jail and cares for himself with supervision from staff. He is accompanied today by his case management specialist, Isaac. Past Medical History Charissa wong Medical [...] l Diabetes Sibling Hypertension Lives: - - jail Smoking Status: Current every day smoker Tobacco [...] Date Recorded By Document 03/21/18 13:53 DL [id number] 8 14:14 DL Wound Center Nurse 1 [...] Date Recorded By Document 03/21/18 15:45 DV [id number] 03/21/18 15:51 DV Psych/Mental Status: Flat Affect Debridement Note Post-Debridement Measurements/Treatment WC - Nurse 2 - General Ulcer CM Notes Start: 03/21/18 13:50 Freq: Status: Active Protocol: Activity Ty pe Activity Date Activity User E-Sign Co-Sign Detail Recorded Client Recorded Date Recorded By Document 03/21/18 15:45 DV [id number] 03/21/18 15:51 DV Wound Center Nurse 2 [...] Department Summary Result: Comments: See Note; NOTES: [facility] Medical Records Department [address] [place] [address] Emergency Department Summary 11/26/17 1320 MR#: [id number] Acct: [id number] Name: AJIT SOSA Rep #: [id number] : 1955 62 From: Blayne Caldwell DO [...] tremity cellulitis] This note was generated with [employer] Lives[employer] dictation software. It may contain incorrect words, spelling, and punctuation that were not noted in review of the chart prior to signing ED Disposition - Plan for ED Patient: Chief Complaint: Cellulitis Referrals: Dhara Taylor, DO [Primary Care Provider] - What to do if you have Problems For any increased pain, shortness of breath, bleeding, nausea or vomiting, chest pain, or any unexpected problems, contact your Primary Care Provider. Call [facility] ([phone]) or report to the closest Emergency Room. Call 911 if necess krish. 11/30/17 6686 <Electronically signed by Blayne Caldwell DO> Date Blayne Caldwell DO Cosigner Signature (If Indicated): Date _ CC: Dhara Taylor 26-Nov-2017 Venous Duplex Lower Extremity Result: Comments: See Note; NOTES: [facility] Cardiovascular Services [address] [place] [address] Venous Duplex US - Kane Extrem 11/26/17 1349 MR#: [id number] Acct: [id number] Name: AJIT SOSA Rep #: [id number] : 1955 62 From: Roger Carney MD [...] Date Dictated: 1349 Date Transcribed: 11/26/17 1522 Testing Machine Operator: Signed 26-Nov-2017 Discharge Instruction Result: Comments: See Note; NOTES: [facility] Medical Records Department [address] [place] [address] Discharge Instruction 11/26/17 1435 MR#: [id number] Acct: [id number] Name: Rolando SOSA Rep #: [id number] : 1955 62 From: Blayne Caldwell DO [...] your Primary Care Provider. Call [facility] ([phone]) or report to the closest Emergency R oom. Call 911 if necessary. 11/26/17 1436 <Electronically signed by Blayne Caldwell DO> Date Manuela Javi RESENDEZ Cosigner Signature (If Taylor cated): Date CC: Dhara Taylor DO 24-Aug-2017 Emergency Department Summary Result: Comments: See Note; NOTES: [facility] Medical Records Department [address] [facility] [place] [address] Emergency Department Summary 08/24/17 1433 MR#: [id number] Acct: [id number] Name: AJIT SOSA Rep #: [id number] : 1955 61 From: Hill Carrington DO [...] process. He reports he lives in a jail and is receiving scheduled Risperdal and other [...] schizoaffective disorder This note was generated with [employer] dictation software. It may contain incorrect words, [...] your Primary Care Provider. Call [facility] ([phone]) or report to the closest Emergency Room. Call 911 if necessary. 08/24/17 1539 <Electronically signed by Hill Carrington DO> Date Hill Carrington DO Cosigner Signature (If Indicated): Date CC: Dhara Taylor DO 03-Apr-2017 Emergency Department Summary Result: Comments: See Note; NOTES: [facility] Medical Records Department [address] [place] [address] Emergency Department Summary MR#: [id number] Acct: [id number] Name: AJIT SOSA Rep #: [id number] : 1955 61 From: Wero Keating MD PCP: Dhara Taylor DO Status: [facility] ER DATE OF SERVICE: 03/30/2017 CHIEF COMPLAINT: [...] Haldol and Cogentin, his night dose. Crisis sales representative meats came over, fully evaluated the patient and is having him transfe rred to [place], accepted by Dr. Huertas, appropriate emergency application, paperwork, labs and reports were given. The patient is stable for transfer. DIAGNOSIS: Acute paranoia. Obed Recinos C: Dhara Taylor DO T: NTS JOB: [id number] 04/03/17805 <Electronically signed by Wero Keating MD> Date Wero Keating MD Cosigner Signature (If Indicated): Date CC: Dhara Taylor DO Date Dictated: 03/30/172204 Date Transcribed: 03/30/172204 Testing Machine Operator: Signed 02-Apr-2017 12 Lead Electrocardiogram Result: Comments: See Note; NOTES: [facility] Cardiovascular Services [address] [place] [address] 12 Lead EKG 03/30/172007 MR#: [id number] Acct: [id number] Name: AJIT SOSA Rep # : [id number] : 1955 61 From: Moises Richard MD [...] ECG Confirmed by MOISES RICHARD MD ([id number]), development editor DANNA LIZAMA ([id number]) on 04/02/2017 2:26:02 PM Referred By: [facility] Confirmed By:MOISES RICHARD MD 04/02/17 1426 Date Moises Abdul CC: Dhara Taylor DO Date Dictated: 03/30/172007 Date Transcribed: 03/30/172007 Testing Machine Operator: Signed 17-Oct-2016 Emergency Department Summary Result: Comments: See Note; NOTES: [facility] Medical Records Department [address] [place] [address] Emergency Department Summary MR#: [id number] Acct: [id number] Name: AJIT SOSA Rep #: [id number] : 1955 60 From: Prakash Loza MD [...] auditory or visual hallucinations. He clearly has pentecostalism delusions. Insight and judgment is poor. The remainder of the physical exam is unremarkable. Amaa se see T-sheet for details. EMERGENCY DEPARTMENT COURSE: The patient is treated with a Geodon IM. He had screening labs that were unremarkable. He was discussed with the [facility] and they have arranged for him to be transferred to a psychiatric facility. DISPOSITION: Home, stable condition. IMPRESSION: 1. Paranoid delusions. MD Patel Lowe C: [facility] T: [facility] JOB: [id number] 10/17/16 1719 <Electronically signed by Prakash Loza MD> Date Prakash Loza MD Cosigner Signature (If Indicated): Date __ CC: Dhara Taylor DO Date Dictated: 10/09/16615 Date Transcribed: 10/09/16615 Testing Machine Operator: Signed 27-Sep-2016 12 Lead Electrocardiogram Result: Comments: See Note; NOTES: [facility] Cardiovascular Services [address] [place] [address] 12 Lead EKG 09/25/16 2218 MR#: [id number] Acct: [id number] Name: AJIT SOSA Rep # : [id number] : 1955 60 From: Reji Hill MD Attending Dr: Status: DEP ER Ordering Dr: Gabriela Barrett MD Date: 09/25/16 Location: ED Sex: M C Admitted: Test Reason : [facility] Blood Pressure : / mmHG Vent. Rate : 086 BPM Atrial Rate : 086 BPM P-R Int : 144 ms QRS Dur : 068 ms QT Int : 364 ms P-R-T Axes : 088 071 066 degrees QTc Int : 435 ms Sinus rhythm with marked sinus arrhythmia Nonspe cific ST abnormality Abnormal ECG Confirmed by REJI HILL ([id number]), development editor DANNA LIZAMA ([id number]) on 09/27/2016 12:52:12 PM Referred By: [facility] Confirmed By:REIJ HILL 09/27/16 1252 Date Reji Hill MD CC: Dhara Taylor DO Date Dictated: 09/25/162217 Date Transcribed: 09/25/162217 Testing Machine Operator: Signed 25-Sep-2016 12 Lead Electrocardiogram Result: Comments: See Note; NOTES: [facility] Cardiovascular Services [address] [place] [address] 12 Lead EKG 09/23/16142 MR#: [id number] Acct: [id number] Name: AJIT SOSA Rep # : [id number] : 1955 60 From: Ajit Benavidez MD [...] Nonsp ecific ST segment abnormality Confirmed by AJIT BENAVIDEZ MD ([id number]), development editor DANNA LIZAMA ([id number]) on 09/25/2016 10:18:06 AM Referred By: DR BUSTOS Confirmed By:AJIT BENAVIDEZ MD 09/25/16 1018 Date ___ Ajit Benavidez MD CC: Dhara Taylor DO Date Dictated: 12/18/16 0143 Date Transcribed: 09/23/163 Testing Machine Operator: Signed 23-Sep-2016 Emergency Department Summary Result: Comments: See Note; NOTES: [facility] Medical Records Department [address] [place] [address] Emergency Department Summary MR#: [id number] Acct: [id number] Name: AJIT SOSA Rep #: [id number] : 1955 60 From: Quentin Bustos MD [...] Discharged. Quentin Bustos MD T: NTS JOB: [id number] 09/23/16 0539 <Electronically signed by Quentin Bustos MD> Date Quentin Bustos MD Cosigner Signature (If Indicated): Date CC: Dhara Taylor DO Date Dictated: 09/23/16238 Date Transcribed: 09/23/16238 Testing Machine Operator: Signed 23-Sep-2016 Discharge Instruction Result: Comments: See Note; NOTES: [facility] Medical Records Department [address] [place] [address] Discharge Instruction 09/23/16 0234 MR#: [id number] Acct: [id number] Name: Rolando SOSA Rep #: [id number] : 1955 60 From: Quentin Bustos MD [...] problems, contact your Primary Care Provider. Call [employer] [facility] ([phone]) or report to the closest Emergency Room. Call 911 if necessary. 09/23/16 0308 <Electronically signed by Quentni Bustos MD> Date Quentin Bustos MD Cosigner Signature (If Indicated): Da te CC: Dhara Taylor DO 11-May-2016 Emergency Department Summary Result: Comments: See Note; NOTES: [facility] Medical Records Department [address] [place] [address] Emergency Department Summary MR#: [id number] Acct: [id number] Name: AJIT SOSA Rep #: [id number] : 1955 60 From: Fina Barry MD PCP: Dhara Taylor DO Status: DEP ER DATE OF SERVICE: 05/09/2016 CHIEF COMPLAINT: Depressed mental status. HISTORY OF PRESENT ILLNESS: This is a 60-year-old male with a history of schizophrenia and other mental health issues. He has a manager social media with him today, who typically sees him [...] evaluation. Fina valdovinos MD T: NTS JOB: [id number] 05/11/16 0946 <Electronically signed by Fina Barry MD> Date Fina Barry MD Cosigner Signature (If Indicated): Date CC: Dhara Taylor DO Date Dictated: 05/09/16 1140 Date Transcribed: 05/09/16 1140 Testing Machine Operator: Signed 09-May-2016 Discharge Instruction Result: Comments: See Note; NOTES: [facility] Medical Records Department [address] [place] [address] Discharge Instruction 05/09/16 1130 MR#: [id number] Acct: [id number] Name: AJIT SOSA Rep #: [id number] : 1955 60 From: Fina Barry MD [...] problems, contact your doctor. Call [facility] ([phone]) or report to the closest Emergency Room. Call 911 if necessary. 05/09/16 1131 &am p;#60;Electronically signed by Fina Barry MD> Date Fina Barry MD Cosigner Signature (If Indicated): Date CC: Dhara Taylor DO 05-Aug-2015 EKG (03281) Comments: nsr no acutechg Result: [MEASUREMENTS ANALYSIS] Date of Test: 08/05/2015 11:03:50; Heart Rate: 63; CT Interval: 158; QRS: 90; QT Interval: 382; Corrected QT Interval (QTc): 387; P Wave Turner: 65; QRS Wave Turner: 69; T Wave Turner: 90; Blood Pressure: 158/94 [ECG DIAGNOSTIC STATEMENTS] [...] kg/m2 Body Surface Area Calculated 2.07 m2 8-Vfd-759124:12 Pulse 97 /min Comments: Pattern: Regular Respiration [...] kg/m2 Body Surface Area Calculated 2.1 m2 33-Fij-160600:58 Temperature 96.8 f Comments: Method: Temporal Pulse [...] 1.99 m2 Results Date Description Value Details 27-Rfn-949330:21 Alanine Aminotransferas (SGPT) Comments: [facility] [id number] [place], [address] ALT 14 U/L (Abnormal) Range: 16-61 25-Pmw-170550:21 Ammonia Comments: [facility] [id number] [facility] [address] AMMONIA 12.0 umol/L (Normal) Range: 11-32 47-Eex-604924:21 AST(SGOT) Comments: [facility] [id number] [place], [address] AST 19 U/L (Normal) Range: 15-37 51-Dqe-129648:21 Platelet Count Comments: [facility] [address] [facility] [id number] PLT 182 K/mm3 (Normal) Range: 150-450 78-Qpc-624593:21 Prolactin Comments: [facility] [address]ff[address]rx[address] [place], [address] PROLACTIN 20.8 ng/mL (Normal) Comments: NORMAL REFERENCE RANGES FEMALE NON- 2.2 - 30.3 ng/mL 8.1 - 347.6 ng/mL POST-MENOPAUSAL 0.7 - 3 1.5 ng/mL MALE 2.5 - 17.4 ng/mLNEW TEST METHOD AND REFERENCE RANGES FEBRUARY 25, 201223-Jun-201814-Nbq-295799:21 Valproic Acid (Depakene) Level Comments: [facility] [address] [place], [place], [address] VALPROIC ACID 87 ug/mL (Normal) Range: 50-100 65-Uwz-482209:10 Microscopic Examination Comments: PATIENT WAS FASTINGPERFORMED BY: [employer]6370 [facility] [id number] Bacteria None seen (Normal) Mucus Threads Present (Normal) Epithelial Cells (non renal) None seen {/hpf} (Normal) Range: 0 - 10 RBC 0-2 {/hpf} (Normal) Range: 0 - 2 WBC 0-5 {/hpf} (Normal) Range: 0 - 5 43-Iqy-674901:10 TSH (73066) Comments: PATIENT WAS FASTINGPERFORMED BY: [employer] Ufzmcm6840 [facility] [id number] TSH 3.840 {uIU/mL} (Normal) Range: 0.450-4.500 09-Ndr-984706:10 URINALYSIS, W/ MICRO (58710) Comments: PATIENT WAS FASTINGPERFORMED BY: [employer] Qtoilq3975 [facility] [id number] Microscopic Examination See below: (Normal) Comments: Microscopic was indicated and was performed. Microscopic Examination MICRON (Normal) Comments: Microscopic follows if indicated. Nitrite, Urine Negative (Normal) Urobilinogen,Semi-Qn 0.2 mg/dL (Normal) Range: 0.2-1.0 Bilirubin Negative (Normal) Occult Blood Negative (Normal) Ketones Negative (Normal) Glucose Negative (Normal) Protein Negative (Normal) WBC Esterase Negative (Normal) Appearance Clear (Normal) Urine-Color Yellow (Normal) pH 7.0 (Normal) Range: 5.0-7.5 Specific Mobile 1.017 (Normal) Range: 1.005-1.030 92-Ykj-207163:10 MICROALBUMIN: CREATININE RATIO Comments: PATIENT WAS FASTINGPERFORMED BY: [employer] [facility] [id number] (62857) AND (28680) Alb/Creat Ratio 56.7 {mg/g_creat} (Abnormal) Range: 0.0-30.0 Albumin, Urine 51.0 ug/mL (Normal) Creatinine, Urine 90.0 mg/dL (Normal) 46-Qmp-913979:10 LIPID PANEL (64633) Comments: PATIENT WAS FASTINGPERFORMED BY: [employer] [facility] [id number] LDL/HDL Ratio 1.5 {ratio} (Normal) Range: 0.0-3.6 [...] (Normal) Range: 100-199 :30 HgA1C , Office (58920) HgA1C , Office 5.8 % (Normal) Range: 4.6 - 7.1 :30 Blood Glucose , Office (58876) Blood Glucose , Office 123 (Normal) 09-Eeb-698895:54 Valproic Acid (38502) Comments: fax results [phone]; PATIENT NOT FASTINGPERFORMED BY: [employer] [facility] [id number] Valproic Acid (Depakote)(R),S 67 ug/mL (Normal) Range: 50-100 Comments: Detection Limit = 4 <4 indicates None Detected . Toxicity may occur at levels of 100-500. Measurements of free unbound valproic acid may improve the assess- ment of clinical response. 62-Fif-426669:54 CBC WITH MANUAL DIFF Comments: fax results [phone]; PATIENT NOT FASTINGPERFORMED BY: [employer] [facility] [id number] Information: NURSE DRAW (90066) Immature Grans (Abs) 0.0 {x10E3/uL} (Normal) Range: [...] 4.14-5.80 WBC 7.1 {x10E3/uL} (Normal) Range: 3.4-10.8 07-Ilf-178846:54 Metabolic Panel, Comprehensive Comments: fax results [phone]; PATIENT NOT FASTINGPERFORMED BY: [employer] [place] [id number] (27014) ALT (SGPT) 7 [iU]/L (Normal) Range: 0-44 [...] 8-27 Glucose 107 mg/dL (Abnormal) Range: 65-99 00-Rxu-773942:54 AMMONIA (04126) Comments: fax results [phone]; PATIENT NOT FASTINGPERFORMED BY: [facility] Wpuezn3717 [facility] [id number] Ammonia, Plasma 53 ug/dL (Normal) Range: 27-102 9-Cxk-425827:17 Bedside Glucose Comments: [facility] LaboratoryPoint of Wbbz[address] [place], [place] [address] BEDSIDE GLU 74 mg/dL (Normal) Range: 70-110 Comments: MANAGEMENT OF PATIENT CARE PER NURSING PROTOCOL 6-Dws-735331:11 Urinalysis, Complete Comments: Order Date: 05/08/18How was Urine Obtained? [facility] [address]nysmzqcjt7[address] [place], [place], [address] MUCUS, URINE 0 SEEN {/hpf} (Normal) BACTERIA [...] (Normal) CLARITY Clear (Normal) COLOR Yellow (Normal) 9-Qil-547579:11 Urine Drug Screen (VISTA) Comments: [facility] [address]let[address]izt[address] [place], [place], [address] THC NEGATIVE (Normal) PCP NEGATIVE (Normal) OPIATES [...] TESTING MUST BE ORDERED SEPARATELY. USE TESTMNEMONIC: [facility] 2-Xbq-320735:56 Alcohol, Blood (Medical)-Serum Comments: [facility] K[address]qrzr[address] [place], [place], [address] SERUM ETOH 5.0 mg/dL (Normal) Comments: The serum:whole blood ethanol ratio is approximately 1.14and varies slightly with hematocrit.Medical Alcohol reference interval and critical value innon-tolerant individuals; 50 - 100 Impairment 100 Intoxication 100 - 250 Severe Poisoning 250 - 400 Deep/possible fatal coma 6-Jja-567755:56 Basic Metabolic Profile (BMP) Comments: [facility] H[address]dfh[address] [place], [address] GAP 3 (Abnormal) Range: 5-15 [...] Comments: Please note revised GLUCOSE reference range jkioqfboq59/02/2018. 7-Zxq-897253:56 CBC W/Diff, Automated Comments: [facility] [address]wib[address] [place], [address] Absolute Lymph 1.81 {X10_3/ul} (Normal) [...] Range: 4.4-11.0 :56 Partial Thromboplast Time Comments: [address], [address] PTT 30.4 s (Normal) Range: 24.1-36.2 :56 Prothrombin Time w/INR Comments: [address], [address] INR 1.2 (Normal) PROTIME 15.4 s (Abnormal) Range: 11.7-14.9 :56 Troponin-I Comments: [address], [address] TROPONIN-I < 0.015 ng/mL (Normal) Comments: TROPONIN-I EXPECTED VALUES <0.045 Negative 0.045 - 0.590 Consistent with Cardiac Damage > OR = 0.600 Critical Value Not every elevated troponin is indicative of NM. T hesevalues should be used with clinical judgement in examiningthe patient's clinical picture for diagnosis. To establisha diagnosis of NM versus myocardial injury, there must be ademonstrated rise and/ or fall in the troponin values, inaddition to ischemic symptoms, EKG changes, new regionalwall motion abnormality, and/or angiographical evidence. PLEASE NOTE: REFERENCE RANGES EDITED 02/17/1808-May-20189-Rwl-159019:56 Valproic Acid (Depakene) Level Comments: [facility] [address]ppag[address] [place], [place], [address] VALPROIC ACID 85 ug/mL (Normal) Range: 50-100 11-Hfc-389038:00 Alcohol, Blood (Medical)-Serum Comments: [facility] Yjbwdelsvx[address] [place], [place], [address] SERUM ETOH 10.0 mg/dL (Normal) Comments: The serum:whole blood ethanol ratio is approximately 1.14and varies slightly with hematocrit.Medical Alcohol reference interval and critical value innon-tolerant individuals; 50 - 100 Impairment 100 Intoxication 100 - 250 Severe Poisoning 250 - 400 Deep/possible fatal coma 01-Rys-894681:00 Basic Metabolic Profile (BMP) Comments: [facility] [address]ho[address] [place], [place], [address] GAP 5 (Normal) Range: 5-15 CO2 30.0 [...] A.D.A. criteria.Please note revised GLUCOSE reference range eiwiikfpy10/02/2018. 56-Yrm-878679:00 CBC W/Diff, Automated Comments: [facility] [address]qxp[address] [place], [place], [address] Absolute Lymph 1.48 {X10_3/ul} (Normal) Range: 0.83-4.51 [...] 4.6-6.2 WBC 6.1 K/mm3 (Normal) Range: 4.4-11.0 99-Elc-642671:00 Liver Profile Comments: [facility] L[address]eni[address] [place], [address] D BILI 0.14 mg/dL (Normal) Range: 0.00-0.30 T BILI 0.40 mg/dL (Normal) Range: 0.20-1.00 ALT 15 U/L (Abnormal) Range: 16-61 ALK P 71 U/L (Normal) Range: 45-117 AST 15 U/L (Normal) Range: 15-37 GLOB 2.6 g/dL (Normal) Range: 2.2-4.2 ALB 3.3 g/dL (Normal) Range: 3.2-5.0 T PROT 5.9 g/dL (Abnormal) Range: 6.4-8.2 60-Yvj-405339:00 Troponin-I Comments: [facility] [address] [place], [address] TROPONIN-I < 0.015 ng/mL (Normal) Comments: TROPONIN-I EXPECTED VALUES <0.045 Negative 0.045 - 0.590 Consistent with Cardiac Damage > OR = 0.600 Critical Value Not every elevated troponin is indicative of NM. T hesevalues should be used with clinical judgement in examiningthe patient's clinical picture for diagnosis. To establisha diagnosis of NM versus myocardial injury, there must be ademonstrated rise and/ or fall in the troponin values, inaddition to ischemic symptoms, EKG changes, new regionalwall motion abnormality, and/or angiographical evidence. PLEASE NOTE: REFERENCE RANGES EDITED 02/17/1802-May-201892-Ceu-189570:00 Urinalysis, Complete Comments: Order Date: 05/02/18How was Urine Obtained? [facility] Hmrewooobc[address] [place], [place], [address] MUCUS, URINE 0 SEEN {/hpf} (Normal) BACTERIA [...] (Normal) CLARITY Clear (Normal) COLOR Yellow (Normal) 57-Jau-021444:00 Urine Drug Screen (VISTA) Comments: Order Date: 05/02/18[facility] Xogedwqesf63[address]Man[address] Soares [place], [address] THC NEGATIVE (Normal) PCP NEGATIVE (Normal) OPIATES [...] TESTING MUST BE ORDERED SEPARATELY. USE TESTMNEMONIC: [facility] 24-Lsw-007503:43 Valproic Acid (Depakene) Level Comments: [facility] Owvmduzqmc3547 [place], [place], [address] VALPROIC ACID 63 ug/mL (Normal) Range: 50-100 28-Xba-840367:20 Basic Metabolic Profile (BMP) Comments: [facility] T[address]yznxhkd[address] [place], [address] GAP 7 (Normal) Range: 5-15 CO2 28.0 [...] Comments: Please note revised GLUCOSE reference range wrhhoncyv2018. 62-Xjq-145813:20 CBC W/Diff, Automated Comments: [facility] [address]azwvpzbc[address] [place], [place], [address] Absolute Lymph 1.48 {X10_3/ul} (Normal) Range: 0.83-4.51 [...] 4.6-6.2 WBC 6.7 K/mm3 (Normal) Range: 4.4-11.0 11-Skn-308324:20 Partial Thromboplast Time Comments: [facility] G[address]flrsgnbi[address] [place], [address] PTT 30.6 s (Normal) Range: 24.1-36.2 06-Ihd-020093:20 Prothrombin Time w/INR Comments: [place] [address] [place], [address] INR 1.1 (Normal) PROTIME 14.4 s (Normal) Range: 11.7-14.9 17-Har-227968:20 Troponin-I Comments: [facility] Pslgeqbbng[address]2 [place], [address] TROPONIN-I < 0.015 ng/mL (Normal) Comments: TROPONIN-I EXPECTED VALUES <0.045 Negative 0.045 - 0.590 Consistent with Cardiac Damage > OR = 0.600 Critical Value Not every elevated troponin is indicative of NM. T hesevalues should be used with clinical judgement in examiningthe patient's clinical picture for diagnosis. To establisha diagnosis of NM versus myocardial injury, there must be ademonstrated rise and/ or fall in the troponin values, inaddition to ischemic symptoms, EKG changes, new regionalwall motion abnormality, and/or angiographical evidence. PLEASE NOTE: REFERENCE RANGES EDITED 02/17/1816-Apr-201818-Kby-155125:11 Bedside Glucose Comments: [facility] LaboratoryPoint of Rjtd[address] [place] [address] BEDSIDE GLU 84 mg/dL (Normal) Range: 70-110 Comments: MANAGEMENT OF PATIENT CARE PER NURSING PROTOCOL 94-Wqv-742926:09 Anaerobic & Aerobic Comments: Left Leg; PATIENT NOT FASTINGPERFORMED BY: [facility]6370 [facility] [id number] Information: LEFT LEG SRC:LG Culture (46307) Result 1 Mixed skin elvira (Normal) Aerobic Culture Final report (Normal) Result 1 NANG72 (Normal) Comments: No anaerobic growth in 72 hours. Anaerobic Culture Final report (Normal) 74-Wxt-98803:17 Alanine Aminotransferas (SGPT) Comments: [facility] [address] [place], [address] ALT 15 U/L (Abnormal) Range: 16-61 :17 AST(SGOT) Comments: [facility] [address] [place], [place], [address](924) AST 20 U/L (Normal) Range: 15-37 :17 Platelet Count Comments: [facility] [address] [place], [place], [address](456) PLT 178 K/mm3 (Normal) Range: 150-450 18-Rxq-31989:17 Valproic Acid (Depakene) Level Comments: [facility] [address] [place], [place], [address](036) VALPROIC ACID 73 ug/mL (Normal) Range: 50-100 01-Quc-206780:05 Basic Metabolic Profile (BMP) Comments: [facility] [address] [place], [place], [address](187) GAP 4 (Abnormal) Range: 5-15 CO2 33.0 [...] Please note revised GLUCOSE reference range /02/2018. 60-Azu-523818:05 CBC W/Diff, Automated Comments: [facility] [address]rmklerb[address] [place], [place], [address] Absolute Lymph 1.28 {X10_3/ul} (Normal) Range: 0.83-4.51 [...] 4.6-6.2 WBC 6.7 K/mm3 (Normal) Range: 4.4-11.0 70-Gyq-168647:02 Microscopic Examination Comments: PATIENT WAS FASTINGPERFORMED BY: LabCoPasc[facility] Medical CenterIsxphw3539 [facility] [id number] Bacteria Few (Normal) Mucus Threads Present (Normal) Epithelial Cells (non renal) None seen {/hpf} (Normal) Range: 0 - 10 RBC 0-2 {/hpf} (Normal) Range: 0 - 2 WBC 0-5 {/hpf} (Normal) Range: 0 - 5 61-Pcp-507339:02 TSH (68780) Comments: PATIENT WAS FASTINGPERFORMED BY: [facility]6370 [facility] [id number] TSH 3.530 {uIU/mL} (Normal) Range: 0.450-4.500 99-Bxg-895134:02 URINALYSIS, W/ MICRO (82533) Comments: PATIENT WAS FASTINGPERFORMED BY: [facility]6370 [facility] [id number] Microscopic Examination See below: (Normal) Comments: Microscopic was indicated and was performed. Microscopic Examination MICRON (Normal) Comments: Microscopic follows if indicated. Nitrite, Urine Negative (Normal) Urobilinogen,Semi-Qn 0.2 mg/dL (Normal) Range: 0.2-1.0 Bilirubin Negative (Normal) Occult Blood Negative (Normal) Ketones Negative (Normal) Glucose Negative (Normal) Protein Trace (Normal) WBC Esterase Negative (Normal) Appearance Clear (Normal) Urine-Color Yellow (Normal) pH 7.0 (Normal) Range: 5.0-7.5 Specific Mobile 1.015 (Normal) Range: 1.005-1.030 65-Nnt-005644:02 MICROALBUMIN: CREATININE RATIO Comments: PATIENT WAS FASTINGPERFORMED BY: [facility]6370 [facility] [id number] (20154) AND (85927) Alb/Creat Ratio 167.0 {mg/g_creat} (Abnormal) Range: 0.0-30.0 Albumin, Urine 110.4 ug/mL (Normal) Creatinine, Urine 66.1 mg/dL (Normal) 70-Aja-756241:02 METABOLIC PANEL, COMPREHENSIVE Comments: PATIENT WAS FASTINGPERFORMED BY: [facility]6370 [facility] [id number] (21392) ALT (SGPT) 16 [iU]/L (Normal) Range: 0-44 [...] Glucose, Serum 101 mg/dL (Abnormal) Range: 65-99 40-Rod-598079:02 LIPID PANEL (32689) Comments: PATIENT WAS FASTINGPERFORMED BY: LabCoPasc[facility] Medical CenterRgxgjk3848 [facility] [id number] LDL/HDL Ratio 1.3 {ratio_units} (Normal) Range: 0.0-3.6 Comments: LDL/HDL Ratio Men Women 1/2 Avg.Risk 1.0 1.5 Av g.Risk 3.6 3.2 2X Avg.Risk 6.2 5.0 3X Avg.Risk 8.0 6.1 LDL Cholesterol Calc 64 mg/dL (Normal) Range: 0-99 VLDL Cholesterol Justo 16 mg/dL (Normal) Range: 5-40 HDL Cholesterol 50 mg/dL (Normal) Triglycerides 79 mg/dL (Normal) Range: 0-149 Cholesterol, Total 130 mg/dL (Normal) Range: 100-199 35-Ldo-661700:02 CBC W/AUTO DIFF WBC (17877) Comments: PATIENT WAS FASTINGPERFORMED BY: [facility]CoPasc[facility] CenterRherdk2508 [facility] [id number] Immature Grans (Abs) 0.0 {x10E3/uL} (Normal) Range: [...] 4.14-5.80 WBC 6.9 {x10E3/uL} (Normal) Range: 3.4-10.8 65-Xci-055961:52 HgA1C , Office (66284) HgA1C , Office 5.8 % (Normal) Range: 4.6 - 7.1 72-Min-763936:52 Blood Glucose , Office (75605) Blood Glucose , Office 110 (Normal) 34-Gnx-451239:01 Microscopic Examination Comments: PATIENT NOT FASTINGPERFORMED BY: [facility] Xkjquv2746 [address] [place] [id number] Bacteria Few (Normal) Mucus Threads Present (Normal) Cast Type Hyaline casts (Normal) Casts Present {/lpf} (Abnormal) Epithelial Cells (non renal) None seen {/hpf} (Normal) Range: 0 - 10 RBC 0-2 {/hpf} (Normal) Range: 0 - 2 WBC 0-5 {/hpf} (Normal) Range: 0 - 5 13-Ulk-604139:40 Urine Drug Screen (VISTA) Comments: [facility] [address]youaqvn[address] [place], [address] THC NEGATIVE (Normal) PCP NEGATIVE [...] TESTING MUST BE ORDERED SEPARATELY. USE TESTMNEMONIC: [facility] 51-Poa-627597:06 Alcohol, Blood (Medical)-Serum Comments: [facility] J[address]lvgpflx19[address] [place], [address] SERUM ETOH < 3.0 mg/dL (Normal) Comments: The serum:whole blood ethanol ratio is approximately 1.14and varies slightly with hematocrit.Medical Alcohol reference interval and critical value innon-tolerant individuals; 50 - 100 Impairment 100 Intoxication 100 - 250 Severe Poisoning 250 - 400 Deep/possible fatal coma 85-Cmo-446798:06 Basic Metabolic Profile (BMP) Comments: [facility] Dqdwghotqr7174 [facility]. [place], [place], [address] GAP 8 (Normal) Range: 5-15 CO2 29.0 [...] 126 mg/dLsuggests DIABETES MELLITUS per A.D.A. criteria. 52-Wmw-450864:06 CBC W/Diff, Automated Comments: [facility] Siigdnrrie7003 [facility]. [place], [place], [address] Absolute Lymph 1.12 {X10_3/ul} (Normal) Range: 0.83-4.51 [...] 4.6-6.2 WBC 8.7 K/mm3 (Normal) Range: 4.4-11.0 23-Arx-388148:06 Valproic Acid (Depakene) Level Comments: [facility] Xxgmzpfnjk5977 [place], [place], [address] VALPROIC ACID 49 ug/mL (Abnormal) Range: 50-100 9-Ofr-107067:29 HGB A1C (23760) HGB A1C 5.9 % (Normal) Range: 4.6 - 7.1 52-Eiq-590028:57 TSH (91982) Comments: PATIENT WAS FASTINGPERFORMED BY: LabCoPasc[facility] Medical CenterWknfrl1136 [facility] [id number] TSH 3.020 {uIU/mL} (Normal) Range: 0.450-4.500 58-Nnb-367192:01 URINALYSIS, W/ MICRO (53350) Comments: PATIENT NOT FASTINGPERFORMED BY: LabCoPasc[facility] Medical CenterQywedr4641 [facility] [id number] Microscopic Examination See below: (Normal) Comments: Microscopic was indicated and was performed. Microscopic Examination MICRON (Normal) Comments: Microscopic follows if indicated. Nitrite, Urine Negative (Normal) Urobilinogen,Semi-Qn 0.2 mg/dL (Normal) Range: 0.2-1.0 Bilirubin Negative (Normal) Occult Blood Negative (Normal) Ketones Negative (Normal) Glucose Negative (Normal) Protein Negative (Normal) WBC Esterase Negative (Normal) Appearance Clear (Normal) Urine-Color Yellow (Normal) pH 6.5 (Normal) Range: 5.0-7.5 Specific Mobile 1.010 (Normal) Range: 1.005-1.030 59-Luc-483173:01 MICROALBUMIN: CREATININE RATIO Comments: PATIENT NOT FASTINGPERFORMED BY: [employer] [facility] DesignPascack Valley Medical CenterYlldgd0233 [facility] [id number] (63181) AND (68542) Microalb/Creat Ratio 43.2 {mg/g_creat} (Abnormal) Range: 0.0-30.0 Microalbumin, Urine 20.9 ug/mL (Normal) Creatinine, Urine 48.4 mg/dL (Normal) 96-Wtl-223632:57 METABOLIC PANEL, COMPREHENSIVE Comments: PATIENT WAS FASTINGPERFORMED BY: [employer] [facility] [facility] DesignPascack Valley Medical CenterWwqgnc0434 [facility] [id number] (50670) ALT (SGPT) 6 [iU]/L (Normal) Range: 0-44 [...] Glucose, Serum 79 mg/dL (Normal) Range: 65-99 26-Wjx-892181:57 LIPID PANEL (83900) Comments: PATIENT WAS FASTINGPERFORMED BY: [employer] Kbgagp4526 [facility] [id number] LDL/HDL Ratio 1.2 {ratio_units} (Normal) Range: 0.0-3.6 Comments: LDL/HDL Ratio Men Women 1/2 Avg.Risk 1.0 1.5 Av g.Risk 3.6 3.2 2X Avg.Risk 6.2 5.0 3X Avg.Risk 8.0 6.1 LDL Cholesterol Calc 51 mg/dL (Normal) Range: 0-99 VLDL Cholesterol Justo 17 mg/dL (Normal) Range: 5-40 HDL Cholesterol 42 mg/dL (Normal) Triglycerides 84 mg/dL (Normal) Range: 0-149 Cholesterol, Total 110 mg/dL (Normal) Range: 100-199 15-Wtx-015084:57 CBC W/AUTO DIFF WBC (88434) Comments: PATIENT WAS FASTINGPERFORMED BY: LabCoPasc[facility] Valley Medical CenterCvjgqd5960 [facility] [id number] Immature Grans (Abs) 0.0 {x10E3/uL} (Normal) Range: [...] 4.14-5.80 WBC 8.5 {x10E3/uL} (Normal) Range: 3.4-10.8 3-Rho-863073:23 Blood Glucose , Office (40114) Blood Glucose , Office 106 (Normal) 91-Eyl-655368:31 PSA (PROSTATE SPECIFIC Comments: PATIENT WAS FASTINGPERFORMED BY: [place] [id number] ANTIGEN) (V76.44) Prostate Specific Ag, 1.6 ng/mL (Normal) Range: 0.0-4.0 Serum Comments: [employer] methodology. .According to the [employer], Serum PSA shoulddecrease and remain at undetectable levels after radicalprostatectomy. The AUA defines biochemical recurrence as an initialPSA value 0.2 ng/mL or greater followed by a subsequent confirmatoryPSA value 0.2 ng/mL or greater.Values obtained with d ifferent assay methods or kits cannot be usedinterchangeably. Results cannot be interpreted as absolute evidenceof the presence or absence of malignant disease. 91-Ist-971886:31 HGB A1C (49273) Comments: PATIENT WAS FASTINGPERFORMED BY: [place] [id number] Hemoglobin A1c 6.0 % (Abnormal) Range: 4.8-5.6 Comments: . Pre-diabetes: 5.7 - 6.4 Diabetes: >6.4 Glycemic control for adults with diabetes: <7.0 90-Xpr-643703:31 TSH (THYROID STIMULATING Comments: PATIENT WAS FASTINGPERFORMED BY: [facility] [id number] HORMONE) (57935) TSH 2.990 {uIU/mL} (Normal) Range: 0.450-4.500 52-Fgh-402740:31 CALCIFEDIOL (52682) Comments: PATIENT WAS FASTINGPERFORMED BY: [facility]6370 [facility] [id number] Vitamin D, 25-Hydroxy 29.6 ng/mL (Abnormal) Range: 30.0-100.0 Comments: Vitamin D deficiency has been defined by the [place] and an Endocrine Society practice guideline as alevel of serum 25-OH vitamin D less than 20 ng/mL (1,2).The Endocrine Society went on to further define vitamin Dinsufficiency as a level between 21 and 29 ng/mL (2).1. IOM ([place] [employer]). 2010. Dietary reference intakes for calcium and D. [place]: The National Academies Press.2. Forrest MF, Suyapa JAEGER, Lexi ESPINOZA, et al. Evaluation, treatment, and prevention of vitamin D deficiency: an Endocrine Society clinical practice guideline. JCEM. 2010; 96(7):1911-30. 37-Fzv-450466:31 MICROALBUMIN: CREATININE RATIO Comments: PATIENT WAS FASTINGPERFORMED BY: [facility]6370 [facility] [id number] (94302) AND (76172) Microalb/Creat Ratio 408.1 {mg/g_creat} (Abnormal) Range: 0.0-30.0 Microalbumin, Urine 85.3 ug/mL (Normal) Creatinine, Urine 20.9 mg/dL (Normal) 87-Dls-911699:31 METABOLIC PANEL, COMPREHENSIVE Comments: PATIENT WAS FASTINGPERFORMED BY: [facility]6370 [facility] [id number] (31521) ALT (SGPT) 9 [iU]/L (Normal) Range: 0-44 [...] Glucose, Serum 117 mg/dL (Abnormal) Range: 65-99 94-Chr-690362:31 LIPID PANEL (32675) Comments: PATIENT WAS FASTINGPERFORMED BY: [facility] [id number] LDL/HDL Ratio 1.1 {ratio_units} (Normal) Range: 0.0-3.6 Comments: LDL/HDL Ratio Men Women 1/2 Avg.Risk 1.0 1.5 Av g.Risk 3.6 3.2 2X Avg.Risk 6.2 5.0 3X Avg.Risk 8.0 6.1 LDL Cholesterol Calc 68 mg/dL (Normal) Range: 0-99 VLDL Cholesterol Justo 18 mg/dL (Normal) Range: 5-40 HDL Cholesterol 63 mg/dL (Normal) Triglycerides 88 mg/dL (Normal) Range: 0-149 Cholesterol, Total 149 mg/dL (Normal) Range: 100-199 48-Wwg-426192:31 CBC with auto diff ([id number]) Comments: PATIENT WAS FASTINGPERFORMED BY: [employer]6[facility] [id number] Immature Grans (Abs) 0.0 {x10E3/uL} (Normal) Range: [...] 4.14-5.80 WBC 6.4 {x10E3/uL} (Normal) Range: 3.4-10.8 27-Der-337783:00 Urine Drug Screen (VISTA) Comments: [facility] [address] [place], [place], [id number] THC NEGATIVE (Normal) PCP NEGATIVE (Normal) OPIATES [...] TESTING MUST BE ORDERED SEPARATELY. USE TESTMNEMONIC: [facility] 73-Dip-343979:45 Alcohol, Blood (Medical)-Serum Comments: [facility] [address] [place], [place], [id number] SERUM ETOH < 3.0 mg/dL (Normal) Comments: The serum:whole blood ethanol ratio is approximately 1.14and varies slightly with hematocrit.Medical Alcohol reference interval and critical value innon-tolerant individuals; 50 - 100 Impairment 100 Intoxication 100 - 250 Severe Poisoning 250 - 400 Deep/possible fatal coma :45 Basic Metabolic Profile (BMP) Comments: [facility] Thwflduouy9487 [facility] [place], [place], [address] GAP 1 (Abnormal) Range: 5-15 CO2 31.0 [...] <126 mg/dLsuggests IMPAIRED HOMEOSTASIS per A.D.A. criteria. 75-Yng-358188:45 CBC W/Diff, Automated Comments: [facility] [address] [place], [address] Absolute Lymph 1.30 {X10_3/ul} (Normal) [...] Range: 4.4-11.0 :44 Alcohol, Blood (Medical)-Serum Comments: [facility] [address] [place], [address] SERUM ETOH < 3.0 mg/dL (Normal) Comments: The serum:whole blood ethanol ratio is approximately 1.14and varies slightly with hematocrit.Medical Alcohol reference interval and critical value innon-tolerant individuals; 50 - 100 Impairment 100 Intoxication 100 - 250 Severe Poisoning 250 - 400 Deep/possible fatal coma :44 CBC W/Diff, Automated Comments: [facility] [address] [place] [place], [address] Absolute Lymph 1.10 {X10_3/ul} (Normal) [...] Range: 4.4-11.0 :44 Comprehensive Metabolic Profil Comments: [facility] [address] [place], [address] GAP 1 (Abnormal) Range: 5-15 CO2 31.0 [...] 70-110 :44 Urine Drug Screen (VISTA) Comments: [facility] [address] [place], [place], [id number] THC NEGATIVE (Normal) PCP NEGATIVE (Normal) OPIATES [...] TESTING MUST BE ORDERED SEPARATELY. USE TESTMNEMONIC: [facility] 11-Pmq-97535:44 Valproic Acid (Depakene) Level Comments: [facility] [address] [place], [address] VALPROIC ACID < 3 ug/mL (Abnormal) Range: 50-100 29-Utv-467158:53 CBC, PLATELETS & MANUAL Comments: PATIENT NOT FASTINGPERFORMED BY: [facility] Tmralo3870 [facility] [id number] Information: [id number] DIFF ([id number]) Immature Grans (Abs) 0.0 {x10E3/uL} (Normal) Range: [...] Range: 3.4-10.8 :56 Alcohol, Blood (Medical)-Serum Comments: [facility] [address] [place], [place], [id number] SERUM ETOH 5.0 mg/dL (Normal) Comments: The serum:whole blood ethanol ratio is approximately 1.14and varies slightly with hematocrit.Medical Alcohol reference interval and critical value innon-tolerant individuals; 50 - 100 Impairment 100 Intoxication 100 - 250 Severe Poisoning 250 - 400 Deep/possible fatal coma :56 Basic Metabolic Profile (BMP) Comments: [facility] [address] [place], [place], [id number] GAP 6 (Normal) Range: 5-15 CO2 29.0 [...] A.D.A. criteria. :56 CBC W/Diff, Automated Comments: [facility] [address] [place], [address] Absolute Lymph 1.36 {X10_3/ul} (Normal) [...] 4.4-11.0 :56 Valproic Acid (Depakene) Level Comments: [facility] [address] [place], [address] VALPROIC ACID 33 ug/mL (Abnormal) Range: 50-100 :50 Urine Drug Screen (VISTA) Comments: [facility] [address] [place], [address] THC NEGATIVE (Normal) PCP NEGATIVE [...] TESTING MUST BE ORDERED SEPARATELY. USE TESTMNEMONIC: [facility] 09-May-20168:53 CBC, PLATELETS & MANUAL Comments: PATIENT NOT FASTINGPERFORMED BY: [facility] Ckvdwk0768 [facility] [id number] Information: [id number] DIFF ([id number]) Immature Grans (Abs) 0.0 {x10E3/uL} (Normal) Range: [...] 4.14-5.80 WBC 6.7 {x10E3/uL} (Normal) Range: 3.4-10.8 26-Jhq-451852:56 CBC, PLATELETS & MANUAL Comments: PATIENT NOT FASTINGPERFORMED BY: [facility] CenterBqapaa0221 [facility] [id number] Information: [id number] DIFF ([id number]) Immature Grans (Abs) 0.0 {x10E3/uL} (Normal) Range: [...] 4.14-5.80 WBC 7.7 {x10E3/uL} (Normal) Range: 3.4-10.8 07-Pbj-724718:28 Metabolic Panel, Comprehensive Comments: PATIENT NOT FASTINGPERFORMED BY: [facility]6370 [facility] [id number] ([id number]) ALT (SGPT) 7 [iU]/L (Normal) Range: 0-44 [...] Glucose, Serum 99 mg/dL (Normal) Range: 65-99 71-Lmj-509231:28 CBC, Platelets & Auto Comments: PATIENT NOT FASTINGPERFORMED BY: [facility]6370 [facility] [id number] Information: [id number] Diff ([id number]) Immature Grans (Abs) 0.0 {x10E3/uL} (Normal) Range: [...] 6.9 {x10E3/uL} (Normal) Range: 3.4-10.8 :28 TSH (50947) Comments: PATIENT NOT FASTINGPERFORMED BY: [facility] CenterGogjiz5231 [facility] [id number] TSH 3.600 {uIU/mL} (Normal) Range: 0.450-4.500 :06 HgA1C , Office (01914) Comments: 5.9 HgA1C , Office 5.9 % (Normal) Range: 4.6 - 7.1 :06 Blood Glucose , Office (32222) Blood Glucose , Office 91 (Normal) 26-Cmp-868276:06 Urinalysis, Office (29884) UA - LEUKOCYTE ESTERASE Negative (Normal) UA - NITRITE Negative (Normal) URINE UROBILINGN SALMA TIMED Normal mg/dL (Normal) UA - PROTEIN Negative mg/dL (Normal) UA - PH 6 (Abnormal) UA - BLOOD Negative (Normal) UA - SPECIFIC GRAVITY 1.010 (Normal) UA - KETONES Negative mg/dL (Normal) UA - BILIRUBIN Negative (Normal) UA - GLUCOSE Negative (Normal) 41-Nnk-130407:06 CBC, PLATELETS & MANUAL Comments: PATIENT NOT FASTINGPERFORMED BY: [facility] CenterRluanu3319 [facility] [id number] Information: [id number] DIFF (81783) Immature Grans (Abs) 0.0 {x10E3/uL} (Normal) Range: [...] & MANUAL Comments: PATIENT NOT FASTINGPERFORMED BY: [place] 4084770 [facility] [id number] Information: [id number] DIFF (84847) Immature Grans (Abs) 0.0 {x10E3/uL} (Normal) Range: [...] & MANUAL Comments: PATIENT NOT FASTINGPERFORMED BY: [facility]6370 [facility] [id number] Information: [id number] DIFF (48854) Immature Grans (Abs) 0.0 {x10E3/uL} (Normal) Range: [...] 4.14-5.80 WBC 8.2 {x10E3/uL} (Normal) Range: 3.4-10.8 87-Ovn-819070:42 CBC, PLATELETS & MANUAL Comments: PATIENT NOT FASTINGPERFORMED BY: [facility] CenterAowzbv3459 [facility] [id number] Information: [id number] DIFF ([id number]) Immature Grans (Abs) 0.0 {x10E3/uL} (Normal) Range: [...] DNA by PCR Comments: Specimen Source? NASAL, [facility] Qt[address]umtpwf0133 [place], [address] SA RESULT NEGATIVE (Normal) MRSA RESULT Negative (Normal) 22-Fqr-665565:53 CBC, PLATELETS & MANUAL Comments: PATIENT NOT FASTINGPERFORMED BY: [facility] Kemxmi6528 [facility] [id number] Information: [id number] DIFF (64373) Immature Grans (Abs) 0.0 {x10E3/uL} (Normal) Range: [...] (PROSTATE SPECIFIC Comments: PATIENT NOT FASTINGPERFORMED BY: [facility] [id number] ANTIGEN) (V76.44) Prostate Specific Ag, 1.2 ng/mL (Normal) Range: 0.0-4.0 Serum Comments: [employer] ECLIA methodology. .According to the [employer], Serum PSA shoulddecrease and remain [...] (HGB A1C) Comments: PATIENT NOT FASTINGPERFORMED BY: [facility] [place] [id number] ([id number]) Hemoglobin A1c 6.0 % (Abnormal) Range: 4.8-5.6 Comments: . Pre-diabetes: 5.7 - 6.4 Diabetes: >6.4 Glycemic control for adults with diabetes: <7.0 96-Jud-516213:13 DHEA-S (DEHYDROEPIANDROSTERONE Comments: PATIENT NOT FASTINGPERFORMED BY: [facility]6370 [facility] [id number] SULFATE) ([id number]) DHEA-Sulfate 133.8 ug/dL (Normal) Range: 48.9-344.2 77-Cae-974891:13 TESTOSTERONE TOTAL (09150) Comments: PATIENT NOT FASTINGPERFORMED BY: [facility]6370 [facility] [id number] Comment: TESTM (Normal) Comments: Adult male reference interval is based on a population of lean malesup to 40 years old. Testosterone, Serum 529 ng/dL (Normal) Range: 348-1197 60-Lly-429418:13 TSH (87334) Comments: PATIENT NOT FASTINGPERFORMED BY: [facility]CoP[facility] CenterYsvhdr1372 [facility] [id number] TSH 2.910 {uIU/mL} (Normal) Range: 0.450-4.500 02-Jet-225973:13 METABOLIC PANEL, COMPREHENSIVE Comments: PATIENT NOT FASTINGPERFORMED BY: [facility]6370 [facility] [id number] (51276) ALT (SGPT) 7 [iU]/L (Normal) Range: 0-44 [...] Glucose, Serum 92 mg/dL (Normal) Range: 65-99 83-Eay-500094:13 CBC W/AUTO DIFF WBC Comments: PATIENT NOT FASTINGPERFORMED BY: [facility] CenterSuazwg8442 [facility] [id number] Information: [id number] (13204) Immature Grans (Abs) 0.0 {x10E3/uL} (Normal) Range: [...] mental state Altered mental state : Reviewed Molder Setter Letter Indication: Altered mental state Altered mental status, unspecified altered mental status type : Reviewed Lab Indication: Altered mental status, unspecified altered mental status type Altered mental status, unspecified altered mental status type : Reviewed Diagnostic Tests Indication: Altered mental status, unspecified altered mental status type Altered mental status, unspecified altered mental status type : Reviewed Molder Setter Letter Indication: Altered mental status, unspecified altered [...] of lower extremity, unspecified laterality : Reviewed Molder Setter Letter Indication: Cellulitis of lower extremity, unspecified laterality Mild intermittent asthma without complication : Continue Current Prescription(s) Indication: Mild intermittent asthma without complication Controlled diabetes mellitus : Follow up in 3 months Indication: Controlled diabetes mellitus Essential hypertension : HTN/CAD Red Flags Indication: Essential hypertension Dog bite of upper extremity, right, subsequent encounter : Reviewed Molder Setter Letter Indication: Dog bite of upper extremity, right, subsequent encounter Cellulitis of forearm : Continue Current Prescription(s) Indication: Cellulitis of forearm Dog bite of upper extremity, right, initial encounter : Reviewed Molder Setter Letter Indication: Dog bite of upper extremity, [...] Planned Observations CBC, PLATELETS & MANUAL DIFF ([id number])Indication: Essential hypertension On: 19-Mar-2017 Request CBC, PLATELETS & MANUAL DIFF ([id number])Indication: Essential hypertension On: 12-Mar-2017 Request CBC, PLATELETS & MANUAL DIFF ([id number])Indication: Essential hypertension On: 05-Mar-2017 Request CBC, PLATELETS & MANUAL DIFF ([id number])Indication: Essential hypertension On: 26-Feb-2017 Request CBC, PLATELETS & MANUAL DIFF ([id number])Indication: Essential hypertension On: 19-Feb-2017 Request CBC, PLATELETS & MANUAL DIFF ([id number])Indication: Essential hypertension On: 12-Feb-2017 Request CBC, PLATELETS & MANUAL DIFF ([id number])Indication: Essential hypertension On: 05-Feb-2017 Request CBC, PLATELETS & MANUAL DIFF ([id number])Indication: Essential hypertension On: 29-Jan-2017 Request CBC, PLATELETS & MANUAL DIFF ([id number])Indication: Essential hypertension On: 22-Jan-2017 Request CBC, PLATELETS & MANUAL DIFF ([id number])Indication: Essential hypertension On: 15-Jan-2017 Request HgA1C , Office ([id number])Indication: Controlled diabetes mellitus On: 7-Zig-129355:23 Request CBC, PLATELETS & MANUAL DIFF ([id number])Indication: Essential hypertension On: 08-Jan-2017 Request CBC, PLATELETS & MANUAL DIFF ([id number])Indication: Essential hypertension On: 01-Jan-2017 Request CBC, PLATELETS & MANUAL DIFF ([id number])Indication: Essential hypertension On: 25-Dec-2016 Request CBC, PLATELETS & MANUAL DIFF ([id number])Indication: Essential hypertension On: 18-Dec-2016 Request CBC, PLATELETS & MANUAL DIFF ([id number])Indication: Essential hypertension On: 11-Dec-2016 Request CBC, PLATELETS & MANUAL DIFF ([id number])Indication: Essential hypertension On: 04-Dec-2016 Request CBC, PLATELETS & MANUAL DIFF ([id number])Indication: Essential hypertension On: 27-Nov-2016 Request CBC, PLATELETS & MANUAL DIFF ([id number])Indication: Essential hypertension On: 20-Nov-2016 Request CBC, PLATELETS & MANUAL DIFF ([id number])Indication: Essential hypertension On: 13-Nov-2016 Request CBC, PLATELETS & MANUAL DIFF ([id number])Indication: Essential hypertension On: 06-Nov-2016 Request CBC, PLATELETS & MANUAL DIFF ([id number])Indication: Essential hypertension On: 30-Oct-2016 Request Metabolic Panel, Basic ([id number])Indication: Mixed erectile dysfunction On: 23-Olr-375849:23 Request CBC, PLATELETS & MANUAL DIFF ([id number])Indication: Essential hypertension On: 23-Oct-2016 Request CBC, PLATELETS & MANUAL DIFF ([id number])Indication: Essential hypertension On: 16-Oct-2016 Request CBC, PLATELETS & MANUAL DIFF ([id number])Indication: Essential hypertension On: 09-Oct-2016 Request CBC, PLATELETS & MANUAL DIFF ([id number])Indication: Essential hypertension On: 02-Oct-2016 Request CBC, PLATELETS & MANUAL DIFF ([id number])Indication: Essential hypertension On: 25-Sep-2016 Request CBC, PLATELETS & MANUAL DIFF ([id number])Indication: Essential hypertension On: 18-Sep-2016 Request CBC, PLATELETS & MANUAL DIFF ([id number])Indication: Essential hypertension On: 11-Sep-2016 Request CBC, PLATELETS & MANUAL DIFF ([id number])Indication: Essential hypertension On: 04-Sep-2016 Request CBC, PLATELETS & MANUAL DIFF ([id number])Indication: Essential hypertension On: 28-Aug-2016 Request CBC, PLATELETS & MANUAL DIFF ([id number])Indication: Essential hypertension On: 21-Aug-2016 Request CBC, PLATELETS & MANUAL DIFF ([id number])Indication: Essential hypertension On: 14-Aug-2016 Request CBC, PLATELETS & MANUAL DIFF ([id number])Indication: Essential hypertension On: 07-Aug-2016 Request CBC, PLATELETS & MANUAL DIFF ([id number])Indication: Essential hypertension On: 31-Jul-2016 Request CBC, PLATELETS & MANUAL DIFF ([id number])Indication: Essential hypertension On: 24-Jul-2016 Request CBC, PLATELETS & MANUAL DIFF ([id number])Indication: Essential hypertension On: 17-Jul-2016 Request CBC, PLATELETS & MANUAL DIFF ([id number])Indication: Essential hypertension On: 10-Jul-2016 Request CBC, PLATELETS & MANUAL DIFF ([id number])Indication: Essential hypertension On: 03-Jul-2016 Request CBC, PLATELETS & MANUAL DIFF ([id number])Indication: Essential hypertension On: 26-Jun-2016 Request CBC, PLATELETS & MANUAL DIFF ([id number])Indication: Essential hypertension On: 19-Jun-2016 Request CBC, PLATELETS & MANUAL DIFF ([id number])Indication: Essential hypertension On: 12-Jun-2016 Request CBC, PLATELETS & MANUAL DIFF ([id number])Indication: Essential hypertension On: 05-Jun-2016 Request CBC, PLATELETS & MANUAL DIFF ([id number])Indication: Essential hypertension On: 29-May-2016 Request CBC, PLATELETS & MANUAL DIFF ([id number])Indication: Essential hypertension On: 22-May-2016 Request MICROALBUMIN: CREATININE RATIO ([id number]) AND ([id number])Indication: Weakness On: 45-Glt-775573:22 Request CBC, PLATELETS & MANUAL DIFF ([id number])Indication: Essential hypertension On: 24-Apr-2016 Request MRSA Culture ([id number])Indication: Nasal lesion On: 02-Rxu-204903:43 Request BELKIS CULTURE-BLOOD ([id number])Indication: History of bacteremia On: 73-Qmn-076598:27 Request Aerobic Bacterial Culture ([id number])Indication: Nasal lesion On: 91-Fde-184884:25 Request URINALYSIS, W/ MICRO ([id number])Indication: Essential hypertension On: 44-Moq-641032:41 Request MICROALBUMIN: CREATININE RATIO ([id number]) AND ([id number])Indication: Essential hypertension On: 44-Fqv-534765:41 Request Planned Encounters Medical; 4 Month FU - On: 03-Oct-2018 7:00 [facility] Dhara Taylor DO, DO, Kathleen Planned Procedures Flu Vaccine (Quadrivalent) 17117Ay: On: 30-Jul-2018 Intent Dhara Taylor DO, DO, Kathleen MRI BRAIN W/ CONTRAST ([id number])By: On: 07-May-2018 Intent Dhara Taylor DO, DO, Kathleen ELECTROCARDIOGRAM, COMPLETE (ECG) On: 29-Oct-2017 Intent ([id number])By: Dhara Taylor DO Comments: nsr no acute chg Dhara Taylor DO Spirometry ([id number])By: Claudia RESENDEZ, On: 29-Oct-2017 Intent Dhara Hendricks DO Comments: #1 severe obstruction #2 severe obstruction -not much different after brisk walk TDAP VACCINE >7 IM ([id number])By: Claudia On: 26-Apr-2017 Dhara Thakkar DO, DO, Kathleen Comments: Lot:[id number]:05/23/19Dose:0.5mgRoute:im Site:[facility] By:GLORIA signed ELECTROCARDIOGRAM, COMPLETE (ECG) On: 10-Jan-2017 Intent ([id number])By: Dhara Taylor DO Comments: pt refused Dhara Taylor DO Aerosol Treatment ([id number])By: Claudia On: 05-Aug-2015 Intent Dhara Claudia Dhara Spirometry ([id number])By: Claudia RESENDEZ, On: 05-Aug-2015 Intent Dhara Hendricks [...] Reason for hospitalization note: (1 week at [facility] I broke up a dog fight [...] Reason for hospitalization note: (1 week at [facility] I broke up a dog fight and I had some stiches in the rt arm). Patient has been compliant with instructions. Current medication use: no side End: 26-Apr-2017 15:00 effects and compliant with dosing regimen.Encounter Diagnosis: Dog bite of upper extremity, right, initial encounter, Cellulitis of forearm, Need for Tdap vaccination (Renamed from Need for umoigkfhzu-sfqyxcy-apljicklm (Tdap) vaccine, adult/a dolescent) [facility] [...] [place] [facility] [place]. Have been incontinent of urine and extreme weakness. Was seeing [facility]. Longoria at [facility] switched to Dr. Zhu Diagnosis: Weakness, [...] forehead pressure, cough and headache. The patient vickei End: 05-Aug-2015 14:34 cribes this as moderate [...] for prostate cancer) [facility] Payers [facility]/[employer] [facility] Marcelina Sosa; a guarantor
--- OUTSIDE RECORDS SUMMARY | 2018-10-15 01:45 | XMS RPT_ITS | Continuity of Care Document ---
:1955 Author Organization [facility] Address [address] [place] [address] Phone Care Team Providers Name Role Phone Dhara Taylor DO Unavailable [facility] Unavailable [place] [facility] Unavailable MALVIN Turner Unavailable Unavailable Unavailable Unavailable Problems Name Dates Details Allergic state, sequela (T78.40XS, 909.9) Status: Active Altered mental status, unspecified altered mental status type (R41.82, 780.97) Status: Active Body mass index 27.0-27.9, adult [...] Active Nasal lesion (J34.89, 478.19) Status: Active Noncompliance with medications (Z91.14, V15.81) Status: Active Schizophrenia (F20.9, 295.90) Comments: managed by [facility] Status: Active Smoker (F17.200, 305.1) Status: Active [...] 875-125 MG Oral Tablet 1 (one) Tablet bid for 0 days Quantity: 20 {Tablet} Refills: 0 Ordered:12-Jun-2018 Vera Turner LPN Start : 12-Jun-2018 Active Benztropine Mesylate 1 MG Oral Tablet three times daily (1 MG) Active BuPROPion HCl ER (XL) 150 MG Oral Tablet Extended Release 24 Hour 1 (one) Tablet qd for 0 days Quantity: 30 {Tablet} Refills: 3 Ordered:23-Apr-2018 Sally Taylor DO, DO, Kathleen Start : 23-Apr-2018 Active [facility] Fluticasone Propionate 50 MCG/ACT Nasal Suspension 1 (one) [place] qd for 0 days Quantity: 1 {Container} [...] 20 MG Oral Tablet 1 (one) Tablet qd for 30 days Quantity: 30 {Tablet} Refills: 3 Ordered:23-Apr-2018 Sally Taylor DO, DO, Kathleen Start : 23-Apr-2018 Active LORazepam 1 MG Oral Tablet 1 [...] days Quantity: 30 {Tablet} Refills: 3 Ordered:24-Apr-2016 Osman COOMBS Teri Start : 05-Aug-2015 End : 24-Apr-2016 Discontinued [...] brain normalmental status back to baseline per slot attendant- Isaac Status: Resolved as of 21-May-2018 BMI 28.0-28.9,adult (Z68.28, V85.24) Status: Resolved as of 21-May-2018 BMI 29.0-29.9,adult (Z68.29, V85.25) Status: Inactive as of 02-May-2018 Cannabis abuse (F12.10, 305.20) Comments: per casework specialist knowledge -inactive Status: Inactive as of [...] for Tdap vaccination (Renamed from Need for vldiwendgz-hlfukhq-bhrhbjitf (Tdap) vaccine, adult/adolescent) (Z23, V06.1) Status: Resolved [...] V58.32) Comments: sutures placed in ER at [facility] Status: Inactive as of 29-Oct-2017 Weakness (R53.1, 780.79) Comments: is reducing depakote per self, sees psych Asteka Status: Inactive as of 10-Jan-2017 Procedures Procedure Dates Details Tonsillectomy Completed Date Value Details 08-May-2018 History and Physical Exam Result: Comments: See Note; NOTES: [facility] Medical Records Department [address] [place] [address] History and Physical 05/08/182104 MR#: [id number] Acct: [id number] Name: CHARISSA SOSA UL E Rep #: [id number] : 1955 62 From: Kristal Larsen PCP: [...] diabetes mellitus Status: Chronic Qualifiers: Diabetes mellitus assisted insulin use: without assisted use Diabetes mellitus complication statu s: without complication Qualified Code(s): E11.9 - Type 2 diabetes mellitus without complications (6) Bilateral leg edema Status: Chronic History of Present Illness Date of Admission: 05/08/18 Chief C omplaint: Worsened confusion The patient is a 62 y/o M, Living in Longterm w/ PMHx: Schizophrenia w/ Prior Suicide Attempts, [...] be performed who now re-presents to the [facility] ED on 05/08/18 with confusion and noted aud itory hallucinations with longterm confirmed taking his schizophrenia medications, failure to understand how to perform basic tasks he normally performs over the last 48 hours with PCP and skilled nursing discussion with patient and now willingness to have MRI performed. skilled nursing notes that this is very different from [...] Anxiety, Depression, Prior suicide attempt, Schizophrenia Lives: Alf Smoking Status: Current every day smoker Tobacco [...] is a 62 y/o M, Living in Longterm w/ PMHx: Schizophrenia w/ Prior Suicide Attempts, Tobacco use, Chronic COPD, Diabet es mellitus type II, CHF Unclear Type, PVD w/ chronic BL LE lymphedema, LLE Venous Stasis Ulcer following [facility] who presents to the [facility] ED on 05/08/18 with confusion and noted auditory halluci nations with skilled nursing confirmed taking his schizophrenia medications, failure to understand how to perform basic tasks he normally performs over the last 48 hours with PCP and skilled nursing discussion wi th patient and now willingness [...] Lovenox. Code Visit OBSV E AND M: [id number] Initial observation care L3 05/08/180 <Electronically signed by Kristal Larsen > Date Kristal Larsen Cosigner Signature: Date (if applicable) CC: Kristal Larsen; Dhara Taylor DO Signed 08-May-2018 Emergency Department Summary Result: Comments: See Note; NOTES: [facility] Medical Records Department [address] [place] [address] Emergency Department Summary 05/08/18 1748 MR#: [id number] Acct: [id number] Name: SOSAAJIT Sera Rep #: [id number] : 1955 62 From: Petrona Rios MD PCP: Dhara Taylor DO Status: REG ER - ER Visit Summary Date of Service: 05/08/18 Chief Complaint: Confusion History of P resent Illness: The patient is a 62 M presenting with intermittent confusion. His staff member from his longterm states that he has been confused intermittently since April 16. He was admitted at that time for TIA workup. During that admission patient refused MRI. He was seen again in the ED on May 02 for continued intermittent confusion. He refused MRI during the ED stay as well. Today longterm d iscussed with his primary care physician Dr. Taylor who feels the patient needs an MRI according to longterm staff and the patient. The patient is now agreeable to MRI. He was advised to come to the E D for further evaluation. skilled nursing staff states that he has been having [...] status, TIA This note was generated with Gogobotation software. It may contain inc orrect words, [...] Primary Care Pr ovider. Call [facility] ([phone]) or report to the closest Emergency Room. Call 911 if necessary. 05/08/182128 <Electronically signed by Petrona Rios MD> Date _ Petrona Rios MD Cosigner Signature (If Indicated): Date CC: Dhara Taylor DO 08-May-2018 Brain/Head without Contrast Result: Comments: See Note; NOTES: [facility] Imaging Services [address] [place] [address] Brain/Head without Contrast MR#: [id number] Acct: [id number] Name: AJIT SOSA Rep #: [id number] : 1955 M 62 From: Lorne Augustine MD PCP: Dhara Taylor DO Status: REG ER Study: Brain/Head without Contrast Date of Exam: 05/08/18 Exam# [id number] Ordering Dr: Petrona Rios MD ST UDY: [...] CC: Petrona Rios MD; Dhara Taylor DO Car Inspection And Repair Manager: Signed 08-May-2018 Chest 1 View Result: Comments: See Note; NOTES: [facility] Imaging Services [address] [place] [address] Chest 1 View MR#: [id number] Acct: [id number] Name: AJIT SOSA Rep #: [id number] : M 62 From: Lorne Augustine MD PCP: Dhara Taylor DO Status: REG ER Study: Chest 1 View Date of Exam: 05/08/18 Exam# [id number] Ordering Dr: Petrona Rios MD STUDY: X-RAY [...] CC: Petrona Rios MD; Dhara Taylor DO Car Inspection And Repair Manager: Signed 06-May-2018 12 Lead Electrocardiogram Result: Comments: See Note; NOTES: [facility] Cardiovascular Services [address] [place] [address] 12 Lead EKG 05/02/18 1555 MR#: [id number] Acct: [id number] Name: AJIT SOSA Rep # : [id number] : 1955 62 From: Ajit Benavidez MD [...] ECG Confirmed by PRAMOD ALSTON, AJIT ([id number]), supervising editor trailer DANNA LIZAMA ([id number]) on 05/06/2018 2:29:59 PM Referred By: HOEHNE Confirmed By:AJIT BENAVIDEZ MD 05/06/18 1430 Date Ajit Benavidez MD CC: Gabriela Barrett MD; Dhara Claudia Signed 03-May-2018 Emergency Department Summary Result: Comments: See Note; NOTES: [facility] Medical Records Department [address] [place] [address] Emergency Department Summary 05/02/18 1648 MR#: [id number] Acct: [id number] Name: AJIT SOSA Rep #: [id number] : 1955 62 From: Gabriela Barrett MD [...] presentation is not typical of his psychosis. skilled nursing staff member describes confusion with normal tasks [...] the week. Patient was monitored at the longterm o rick the weekend. I did speak with Dr. Carter to update her on the patient's findings and plan as the patient was sent in by Dr. Taylor. Treatment Plan: [] Disposition: Discharge Impression: 1. Repor melchor slurred speech, resolved 2. Schizoaffective disorder This note was generated with HitFix dictation software. It may contain incorrect words, [...] your Primary Care Provider. Call [facility] ([phone]) or report to the closest Emergency Room. Call 911 if necessary. 05/03 0028 <Electronically signed by Gabriela Barrett MD> Date Gabriela Barrett MD Cosigner Signature (If Indicated): Date ____ CC: Dhara Taylor DO 02-May-2018 Discharge Instruction Result: Comments: See Note; NOTES: [facility] Medical Records Department [address] [place] [address] [place] [address] Discharge Instruction 05/02/18 2234 MR#: [id number] Acct: [id number] Name: Rolando SOSA Rep #: [id number] : 1955 62 From: Gabriela Barrett MD [...] without Contrast Result: Comments: See Note; NOTES: [facility] Imaging Services [address] [place] [address] Brain/Head without Contrast MR#: [id number] Acct: [id number] Name: AJIT SOSA Rep #: [id number] : 1955 M 62 From: Edenilson Hernandez MD PCP: Dhara Taylor DO Status: REG ER Study: Brain/Head without Contrast Date of Exam: 05/02/18 Exam# [id number] Ordering Dr: Gabriela Barrett MD [facility] DY: CT BRAIN WITHOUT [...] CC: Gabriela Barrett MD; Dhara Taylor DO Car Inspection And Repair Manager: Signed 16-Apr-2018 Brain/Head without Contrast Result: Comments: See Note; NOTES: [facility] Imaging Services [address] [place] [address] Brain/Head without Contrast MR#: [id number] Acct: [id number] Name: AJIT SOSA Rep #: [id number] : 1955 M 62 From: Jackson Conde DO PCP: Dhara Taylor DO Status: [facility] Study: Brain/Head without Contrast Date of Exam: 04/16/18 Exam# [id number] Ordering Dr: Petrona Rios MD STUD Y: [...] Jackson Conde DO at 17:16 EDT Tel [phone], Service support [phone], CC: Petrona Rios MD; Dhara Taylor DO Car Inspection And Repair Manager: Signed 16-Apr-2018 Chest 1 View Result: Comments: See Note; NOTES: [facility] Imaging Services [address] [place] [address] Chest 1 View MR#: [id number] Acct: [id number] Name: AJIT SOSA Rep #: [id number] : M 62 From: Jackson Conde DO PCP: Dhara Taylor DO Status: PRE ER Study: Chest 1 View Date of Exam: 04/16/18 Exam# [id number] Ordering Dr: Petrona Rios MD STUDY: X-RAY [...] of the upper abdomen. ORDER # : [id number] RAD/Chest 1 View IMPRESSION: No acute cardiopulmonary disease or interval change. Electronically Signed: Jackson Conde DO at 16:55 EDT Tel [phone], Service support [phone], CC: Petrona Rios MD; Dhara Taylor DO Car Inspection And Repair Manager: Signed 16-Apr-2018 Emergency Department Summary Result: Comments: See Note; NOTES: [facility] Medical Records Department [address] [place] [address] Emergency Department Summary 04/16/18 0514 MR#: [id number] Acct: [id number] Name: AJIT SOSA Rep #: [id number] : 1955 62 From: Quentin Winkler MD PCP: Dhara Taylor DO Status: DEP ER - ER Visit Summary Date of Service: 04/16/18 Chief Complaint: Left arm pain History o f Present Illness: The patient is a 62 M presenting for evaluation secondary left arm pain. Patient has a underlying history of living in a longterm and has schizophrenia that is reasonably controlled [...] by a physician and his nursing supervisor liquefaction and was unable to take any sort [...] arm pain This note was generated with HitFix dictation software. It may contain incorrect words, [...] your Primary Care Provider. Call [facility] ([phone]) or report to the closest Emergency Room. Call 911 if necessary. 04/16/18 0717 <Electronically signed by Quentin Winkler MD> Date Quentin Gomez Signature (If Indicated): Date CC: Dhara Taylor DO 21-Mar-2018 Wound Ctr History AND Physical Result: Comments: See Note; NOTES: [facility] [address] [place] [address] Wound Ctr History AND Physical 03/21/182028 MR#: [id number] Acct: [id number] Name: AJIT RAMSEY Rep #: [id number] : 1955 62 From: Samantha Manuel DO [...] Chronic Current Visit: Yes Qualifiers: Diabetes mellitus assisted insulin use: without manager terminal use Diabetes mellitus complication stat us: [...] odor or drainage. He lives in a longterm and cares for himself with supervision from staff. He is accompanied today by his therapeutic case manager, Isaac. Past Medical History Charissa wong Medical [...] l Diabetes Sibling Hypertension Lives: - - longterm Smoking Status: Current every day smoker Tobacco [...] Date Recorded By Document 03/21/18 13:53 DL [id number] 14:14 DL Wound Center Nurse 1 [...] Date Recorded By Document 03/21/18 15:45 DV [id number] 03/21/18 15:51 DV Psych/Mental Status: Flat Affect Debridement Note Post-Debridement Measurements/Treatment WC - Nurse 2 - General Ulcer CM Notes Start: 03/21/18 13:50 Freq: Status: Active Protocol: Activity Ty pe Activity Date Activity User E-Sign Co-Sign Detail Recorded Client Recorded Date Recorded By Document 03/21/18 15:45 DV [id number] 03/21/18 15:51 DV Wound Center Nurse 2 [...] Department Summary Result: Comments: See Note; NOTES: [facility] Medical Records Department [address] [place] [address] Emergency Department Summary 11/26/17 1320 MR#: [id number] Acct: [id number] Name: AJIT SOSA Rep #: [id number] : 1955 62 From: Blayne Caldwell DO [...] tremity cellulitis] This note was generated with HitFix dictation software. It may contain incorrect words, spelling, and punctuation that were not noted in review of the chart prior to signing ED Disposition - Plan for ED Patient: Chief Complaint: Cellulitis Referrals: Dhara Taylor, [Primary Care Provider] - What to do if you have Problems For any increased pain, shortness of breath, bleeding, nausea or vomiting, chest pain, or any unexpected problems, contact your Primary Care Provider. Call [employer] Registry ([phone]) or report to the closest Emergency Room. Call 911 if necess krish. 11/30/17 1545 <Electronically signed by Blayne Caldwell DO> Date Blayne Caldwell DO Cosigner Signature (If Indicated): Date _ CC: Dhara Taylor DO 26-Nov-2017 Venous Duplex Lower Extremity Result: Comments: See Note; NOTES: [facility] Cardiovascular Services [address] [place] [address] Venous Duplex US - Kane Extrem 11/26/17 1349 MR#: [id number] Acct: [id number] Name: AJIT SOSA Rep #: [id number] : 1955 62 From: Roger Carney MD [...] DO Date Dictated: 1349 Date Transcribed: 11/26/17 152 Car Inspection And Repair Manager: Signed 26-Nov-2017 Discharge Instruction Result: Comments: See Note; NOTES: [facility] Medical Records Department [address] [place] [address] Discharge Instruction 11/26/17 1435 MR#: [id number] Acct: [id number] Name: Rolando SOSA Rep #: [id number] : 1955 62 From: Blayne Caldwell DO [...] your Primary Care Provider. Call [facility] ([phone]) or report to the closest Emergency R oom. Call 911 if necessary. 11/26/17 1436 <Electronically signed by Blayne Caldwell DO> Date Blayne Caldwell DO Cosigner Signature (If Taylor cated): Date CC: Dhara Taylor DO 24-Aug-2017 Emergency Department Summary Result: Comments: See Note; NOTES: [facility] Medical Records Department [address] [place] [address] Emergency Department Summary 08/24/17 1433 MR#: [id number] Acct: [id number] Name: AJIT SOSA Rep #: [id number] : 1955 61 From: Hill Carrington DO [...] process. He reports he lives in a longterm and is receiving scheduled Risperdal and other [...] schizoaffective disorder This note was generated with Gogobotation software. It may contain incorrect words, spel [...] your Primary Care Provider. Call [facility] ([phone]) or report to the closest Emergency Room. Call 911 if necessary. 08/24/17 1539 <Electronically signed by Hill Carrington DO> Date Hill Carrington DO Cosigner Signature (If Indicated): Date CC: Dhara Taylor DO 03-Apr-2017 Emergency Department Summary Result: Comments: See Note; NOTES: [facility] Medical Records Department [address] [place] [address] Emergency Department Summary MR#: [id number] Acct: [id number] Name: AJIT SOSA Obed Rep #: [id number] : 1955 61 From: Wero Keating MD PCP: Dhara Taylor DO Status: [facility] DATE OF SERVICE: 03/30/2017 CHIEF COMPLAINT: [...] Haldol and Cogentin, his night dose. Crisis international representative came over, fully evaluated the patient and is having him transfe rred to [place], accepted by Dr. Huertas, appropriate emergency application, paperwork, labs and reports were given. The patient is stable for transfer. DIAGNOSIS: Acute paranoia. Obed Recinos C: Dhara Taylor DO T: [facility] JOB: [id number] 04/03/1706 <Electronically signed by Wero Keating MD> Date Wero Keating MD Cosigner Signature (If Indicated): Date CC: Dhara Taylor DO Date Dictated: 03/30/172204 Date Transcribed: 03/30/172204 Car Inspection And Repair Manager: Signed 02-Apr-2017 12 Lead Electrocardiogram Result: Comments: See Note; NOTES: [facility] Cardiovascular Services [address] [place] [address] 12 Lead EKG 03/30/172007 MR#: [id number] Acct: [id number] Name: AJIT SOSA Rep # : [id number] : 1955 61 From: Moises Richard MD [...] ECG Confirmed by MOISES RICHARD MD ([id number]), supervising editor trailer DANNA LIZAMA (57) on 04/02/2017 2:26:02 PM Referred By: EDI Confirmed By:MOISES RICHARD MD 04/02/17 1426 Date Moises Abdul CC: Dhara Taylor DO Date Dictated: 03/30/172007 Date Transcribed: 03/30/172007 Car Inspection And Repair Manager: Signed 17-Oct-2016 Emergency Department Summary Result: Comments: See Note; NOTES: [facility] Medical Records Department [address] [place] [address] Emergency Department Summary MR#: [id number] Acct: [id number] Name: AJIT SOSA Rep #: [id number] : 1955 60 From: Prakash Loza MD PCP: Dhara Taylor DO Status: [facility] ER DATE OF SERVICE: 09/25/2016 METHOD OF [...] auditory or visual hallucinations. He clearly has orthodoxy delusions. Insight and judgment is poor. The [...] Loza MD C C: [facility] T: [facility] JOB: [id number] 10/17/16 1719 <Electronically signed by Prakash Loza MD> Date Prakash Loza MD Cosigner Signature (If Indicated): Date __ CC: Dhara Taylor DO Date Dictated: 10/09/16615 Date Transcribed: 10/09/16615 Car Inspection And Repair Manager: Signed 27-Sep-2016 12 Lead Electrocardiogram Result: Comments: See Note; NOTES: [facility] Cardiovascular Services [address] [place] [address] 12 Lead EKG 09/25/16 2218 MR#: [id number] Acct: [id number] Name: AJIT SOSA Rep # : [id number] : 1955 60 From: Reji Hill MD Attending Dr: Status: DEP ER Ordering Dr: Gabrilea Barrett MD Date: 09/25/16 Location: ED Sex: M C Admitted: Test Reason : [facility] [place] Blood Pressure : / mmHG Vent. Rate : 086 BPM Atrial Rate : 086 BPM P-R Int : 144 ms QRS Dur : 068 ms QT Int : 364 ms P-R-T Axes : 088 071 066 degrees QTc Int : 435 ms Sinus rhythm with marked sinus arrhythmia Nonspe cific ST abnormality Abnormal ECG Confirmed by REJI HILL ([id number]), supervising editor trailer DANNA LIZAMA (56) on 09/27/2016 12:52:12 PM Referred By: MEG Confirmed By:REJI HILL 09/27/16 1252 Date Reji Hill MD CC: Dhara Taylor DO Date Dictated: 09/25/162217 Date Transcribed: 09/25/162217 Car Inspection And Repair Manager: Signed 25-Sep-2016 12 Lead Electrocardiogram Result: Comments: See Note; NOTES: [facility] Cardiovascular Services [address] [place] [address] 12 Lead EKG 09/23/16142 MR#: [id number] Acct: [id number] Name: AJIT SOSA Rep # : [id number] : 1955 60 From: Ajit Benavidez MD [...] abnormality Confirmed by PRAMOD ALSTON, AJIT ([id number]), supervising editor trailer DANNA LIZAMA (56) on 09/25/2016 10:18:06 AM Referred By: DR BUSTOS Confirmed By:AJIT BENAVIDEZ MD 09/25/16 1018 Date ___ Ajit Benavidez MD CC: Dhara Taylor DO Date Dictated: 09/23/16142 Date Transcribed: 09/23/16142 Car Inspection And Repair Manager: Signed 23-Sep-2016 Emergency Department Summary Result: Comments: See Note; NOTES: [facility] Medical Records Department [address] [facility] [place] [address] Emergency Department Summary MR#: [id number] Acct: [id number] Name: AJIT SOSA Rep #: [id number] : 1955 60 From: Quentin Bustos MD [...] pain. I do not feel this p atient needs to be hospitalized given the chronicity of his symptoms, unremarkable examination and normal lab workup. He will be discharged. IMPRESSION: 1. Bilateral lower extremity venous stasis. 2. S chizophrenia. DISPOSITION: Discharged. Quentin Bustos MD T: [facility] JOB: [id number] 09/23/16 0539 <Electronically signed by Quentin Bustos MD> Date Quentin Bustos MD Cosigner Signature (If Indicated): Date CC: Dhara Taylor DO Date Dictated: 09/23/16238 Date Transcribed: 09/23/16238 Car Inspection And Repair Manager: Signed 23-Sep-2016 Discharge Instruction Result: Comments: See Note; NOTES: [facility] Medical Records Department [address] [place] [address] Discharge Instruction 09/23/16233 MR#: [id number] Acct: [id number] Name: Rolando SOSA Rep #: [id number] : 1955 60 From: Quentin Bustos MD [...] your Primary Care Provider. Call [facility] ([phone]) or report to the closest Emergency Room. Call 911 if necessary. 09/23/16 0308 <Electronically signed by Quentin Bustos MD> Date Quentin Bustos MD Cosigner Signature (If Indicated): Da te CC: Dhara Taylor DO 11-May-2016 Emergency Department Summary Result: Comments: See Note; NOTES: [facility] Medical Records Department [address] [place] [address] Emergency Department Summary MR#: [id number] Acct: [id number] Name: AJIT SOSA Rep #: [id number] : 1955 60 From: Fina Barry MD PCP: Dhara Taylor DO Status: DEP ER DATE OF SERVICE: 05/09/2016 CHIEF COMPLAINT: Depressed mental status. HISTORY OF PRESENT ILLNESS: This is a 60-year-old male with a history of schizophrenia and other mental health issues. He has a social security benefits interviewer with him today, who typically sees him [...] evaluation. Fina valdovinos MD T: [facility] JOB: [id number] 05/11/16 0946 <Electronically signed by Fina Barry MD> Date Fina Barry MD Cosigner Signature (If Indicated): Date CC: Dhara Taylor DO Date Dictated: 05/09/16 1140 Date Transcribed: 05/09/16 1140 Car Inspection And Repair Manager: Signed 09-May-2016 Discharge Instruction Result: Comments: See Note; NOTES: [facility] Medical Records Department [address] [place] [address] Discharge Instruction 05/09/16 1130 MR#: [id number] Acct: [id number] Name: SOSAAJIT Rep #: [id number] : 1955 60 From: Fina Barry MD [...] problems, contact your doctor. Call [facility] ([phone]) or report to the closest Emergency Room. Call 911 if necessary. 05/09/16 1131 &am p;#60;Electronically signed by Fina Barry MD> Date Fina Barry MD Cosigner Signature (If Indicated): Date CC: Dhara Taylor DO 05-Aug-2015 EKG ([id number]) Comments: nsr no acutechg Result: [MEASUREMENTS ANALYSIS] Date of Test: 08/05/2015 11:03:50; Heart Rate: 63; MN Interval: 158; QRS: 90; QT Interval: 382; Corrected QT Interval (QTc): 387; P Wave [place]: 65; QRS [place] [place]: 69; [place]: 90; Blood Pressure: 158/94 [ECG DIAGNOSTIC STATEMENTS] [...] Active Vital Signs Date Test Result Details :28 Temperature 98.6 f Comments: Method: Temporal [...] kg/m2 Body Surface Area Calculated 2.11 m2 06-Moy-660244:21 Comments: Rech 162/86 Temperature 97.3 f Pulse [...] kg/m2 Body Surface Area Calculated 2.1 m2 04-Dyh-859972:58 Temperature 96.8 f Comments: Method: Temporal Pulse [...] kg/m2 Body Surface Area Calculated 1.99 m2 61-Zxb-057617:09 Temperature 97.1 f Comments: Method: Temporal Pulse [...] 1.99 m2 Results Date Description Value Details 97-Vjd-882074:21 Alanine Aminotransferas (SGPT) Comments: [facility] [address] [place], [place], [id number] ALT 14 U/L (Abnormal) Range: 16-61 75-Lul-279461:21 Ammonia Comments: [facility] [address] [place], [place], [id number] AMMONIA 12.0 umol/L (Normal) Range: 11-32 98-Sud-415610:21 AST(SGOT) Comments: [facility] [address] [place], [place], [phone](955) AST 19 U/L (Normal) Range: 15-37 01-Dlw-511711:21 Platelet Count Comments: [facility] [address] [place], [place], [phone] PLT 182 K/mm3 (Normal) Range: 150-450 16-Zls-263524:21 Prolactin Comments: [facility] [address] [place], [place], [address] PROLACTIN 20.8 ng/mL (Normal) Comments: NORMAL REFERENCE RANGES FEMALE NON- 2.2 - 30.3 ng/mL 8.1 - 347.6 ng/mL POST-MENOPAUSAL 0.7 - 3 1.5 ng/mL MALE 2.5 - 17.4 ng/mLNEW TEST METHOD AND REFERENCE RANGES FEBRUARY 25, 201223-Jun-201845-Qow-159932:21 Valproic Acid (Depakene) Level Comments: [facility] [address] [place], [address] VALPROIC ACID 87 ug/mL (Normal) Range: 50-100 47-Nqp-718615:10 Microscopic Examination Comments: PATIENT WAS FASTINGPERFORMED BY: [address] [id number] Bacteria None seen (Normal) Mucus Threads Present (Normal) Epithelial Cells (non renal) None seen {/hpf} (Normal) Range: 0 - 10 RBC 0-2 {/hpf} (Normal) Range: 0 - 2 WBC 0-5 {/hpf} (Normal) Range: 0 - 5 55-Sap-639897:10 TSH (60390) Comments: PATIENT WAS FASTINGPERFORMED BY: [place] 9442670 [facility] [id number] TSH 3.840 {uIU/mL} (Normal) Range: 0.450-4.500 96-Nus-588711:10 URINALYSIS, W/ MICRO (69339) Comments: PATIENT WAS FASTINGPERFORMED BY: [address] [id number] Microscopic Examination See below: (Normal) Comments: Microscopic was indicated and was performed. Microscopic Examination MICRON (Normal) Comments: Microscopic follows if indicated. Nitrite, Urine Negative (Normal) Urobilinogen,Semi-Qn 0.2 mg/dL (Normal) Range: 0.2-1.0 Bilirubin Negative (Normal) Occult Blood Negative (Normal) Ketones Negative (Normal) Glucose Negative (Normal) Protein Negative (Normal) WBC Esterase Negative (Normal) Appearance Clear (Normal) Urine-Color Yellow (Normal) pH 7.0 (Normal) Range: 5.0-7.5 Specific [place] 1.017 (Normal) Range: 1.005-1.030 63-Czu-177754:10 MICROALBUMIN: CREATININE RATIO Comments: PATIENT WAS FASTINGPERFORMED BY: [address] [id number] (24387) AND (42393) Alb/Creat Ratio 56.7 {mg/g_creat} (Abnormal) Range: 0.0-30.0 Albumin, Urine 51.0 ug/mL (Normal) Creatinine, Urine 90.0 mg/dL (Normal) 12-Mwb-545029:10 LIPID PANEL (76048) Comments: PATIENT WAS FASTINGPERFORMED BY: Move Loot6370 [employer]Reg[employer] [place] [id number] LDL/HDL Ratio 1.5 {ratio} (Normal) Range: 0.0-3.6 [...] (Normal) Range: 100-199 :30 HgA1C , Office (36007) HgA1C , Office 5.8 % (Normal) Range: 4.6 - 7.1 33-Vzb-59724:30 Blood Glucose , Office (14800) Blood Glucose , Office 123 (Normal) 98-Izu-399282:54 Valproic Acid (68297) Comments: fax results [phone]; PATIENT NOT FASTINGPERFORMED BY: Move Loot6370 [facility] [id number] Valproic Acid (Depakote)(R),S 67 ug/mL (Normal) Range: 50-100 Comments: Detection Limit = 4 <4 indicates None Detected . Toxicity may occur at levels of 100-500. Measurements of free unbound valproic acid may improve the assess- ment of clinical response. 12-Hef-851964:54 CBC WITH MANUAL DIFF Comments: fax results [phone]; PATIENT NOT FASTINGPERFORMED BY: Move Loot6370 [facility] [id number] Information: NURSE DRAW (62483) Immature Grans (Abs) 0.0 {x10E3/uL} (Normal) Range: [...] 4.14-5.80 WBC 7.1 {x10E3/uL} (Normal) Range: 3.4-10.8 54-Fii-282877:54 Metabolic Panel, Comprehensive Comments: fax results [phone]; PATIENT NOT FASTINGPERFORMED BY: [facility] MorrisImoudc7833 [facility] [id number] (74991) ALT (SGPT) 7 [iU]/L (Normal) Range: 0-44 [...] 8-27 Glucose 107 mg/dL (Abnormal) Range: 65-99 68-Baj-218393:54 AMMONIA (70544) Comments: fax results [phone]; PATIENT NOT FASTINGPERFORMED BY: [facility] Mjyvjm4423 [facility] [id number] Ammonia, Plasma 53 ug/dL (Normal) Range: 27-102 8-Lro-284140:17 Bedside Glucose Comments: [facility] LaboratoryPoint [facility] [address] [place] [address] BEDSIDE GLU 74 mg/dL (Normal) Range: 70-110 Comments: MANAGEMENT OF PATIENT CARE PER NURSING PROTOCOL 2-Waa-321698:11 Urinalysis, Complete Comments: Order Date: 05/08/18How was Urine Obtained? [facility] Ybhlbhegbe4205 [facility] [place], [address] MUCUS, URINE 0 SEEN {/hpf} [...] (Normal) CLARITY Clear (Normal) COLOR Yellow (Normal) 6-Eor-644037:11 Urine Drug Screen (VISTA) Comments: [facility] [address] [place], [place], [address] THC NEGATIVE (Normal) PCP NEGATIVE (Normal) OPIATES [...] TESTING MUST BE ORDERED SEPARATELY. USE TESTMNEMONIC: [facility] 1-Fuy-262714:56 Alcohol, Blood (Medical)-Serum Comments: [facility] [address] [place], [place], [phone] SERUM ETOH 5.0 mg/dL (Normal) Comments: The serum:whole blood ethanol ratio is approximately 1.14and varies slightly with hematocrit.Medical Alcohol reference interval and critical value innon-tolerant individuals; 50 - 100 Impairment 100 Intoxication 100 - 250 Severe Poisoning 250 - 400 Deep/possible fatal coma 2-Tnt-883720:56 Basic Metabolic Profile (BMP) Comments: [facility] [address] [place], [place], [address] GAP 3 (Abnormal) Range: 5-15 CO2 32.0 [...] Comments: Please note revised GLUCOSE reference range vdanosubg17/02/2018. 5-Dqa-179870:56 CBC W/Diff, Automated Comments: [facility] [address] [place], [place], [address] Absolute Lymph 1.81 {X10_3/ul} (Normal) Range: 0.83-4.51 [...] Range: 4.4-11.0 :56 Partial Thromboplast Time Comments: [facility] [address] [place], [place], [address] PTT 30.4 s (Normal) Range: 24.1-36.2 :56 Prothrombin Time w/INR Comments: [place] [address] [place], [place], [address] INR 1.2 (Normal) PROTIME 15.4 s (Abnormal) Range: 11.7-14.9 :56 Troponin-I Comments: [address] [place], [address] TROPONIN-I < 0.015 ng/mL (Normal) Comments: TROPONIN-I EXPECTED VALUES <0.045 Negative 0.045 - 0.590 Consistent with Cardiac Damage > OR = 0.600 Critical Value Not every elevated troponin is indicative of [place]. T hesevalues should be used with clinical judgement in examiningthe patient's clinical picture for diagnosis. To establisha diagnosis of [place] versus myocardial injury, there must be ademonstrated rise and/ or fall in the troponin values, inaddition to ischemic symptoms, EKG changes, new regionalwall motion abnormality, and/or angiographical evidence. PLEASE NOTE: REFERENCE RANGES EDITED 02/17/1808-May-20187-Vdw-443477:56 Valproic Acid (Depakene) Level Comments: [facility] [address] [place], [place], [address] VALPROIC ACID 85 ug/mL (Normal) Range: 50-100 71-Ieu-670074:00 Alcohol, Blood (Medical)-Serum Comments: [facility] [address] [place], [place], [address] SERUM ETOH 10.0 mg/dL (Normal) Comments: The serum:whole blood ethanol ratio is approximately 1.14and varies slightly with hematocrit.Medical Alcohol reference interval and critical value innon-tolerant individuals; 50 - 100 Impairment 100 Intoxication 100 - 250 Severe Poisoning 250 - 400 Deep/possible fatal coma 39-Msl-154677:00 Basic Metabolic Profile (BMP) Comments: [facility] [address] [place], [place], [address] GAP 5 (Normal) Range: 5-15 CO2 30.0 [...] A.D.A. criteria.Please note revised GLUCOSE reference range qxfegonus93/02/2018. 92-Zjt-359313:00 CBC W/Diff, Automated Comments: [facility] [address] [place], [place], [address] Absolute Lymph 1.48 {X10_3/ul} (Normal) Range: 0.83-4.51 [...] 4.6-6.2 WBC 6.1 K/mm3 (Normal) Range: 4.4-11.0 11-Xtw-158023:00 Liver Profile Comments: [facility] [address] [place], [place], [address] D BILI 0.14 mg/dL (Normal) Range: 0.00-0.30 T BILI 0.40 mg/dL (Normal) Range: 0.20-1.00 ALT 15 U/L (Abnormal) Range: 16-61 ALK P 71 U/L (Normal) Range: 45-117 AST 15 U/L (Normal) Range: 15-37 GLOB 2.6 g/dL (Normal) Range: 2.2-4.2 ALB 3.3 g/dL (Normal) Range: 3.2-5.0 T PROT 5.9 g/dL (Abnormal) Range: 6.4-8.2 85-Umo-350137:00 Troponin-I Comments: [facility] [address] [facility] [place], [place], [address] TROPONIN-I < 0.015 ng/mL (Normal) Comments: TROPONIN-I EXPECTED VALUES <0.045 Negative 0.045 - 0.590 Consistent with Cardiac Damage > OR = 0.600 Critical Value Not every elevated troponin is indicative of [place]. T hesevalues should be used with clinical judgement in examiningthe patient's clinical picture for diagnosis. To establisha diagnosis of [place] versus myocardial injury, there must be ademonstrated rise and/ or fall in the troponin values, inaddition to ischemic symptoms, EKG changes, new regionalwall motion abnormality, and/or angiographical evidence. PLEASE NOTE: REFERENCE RANGES EDITED 02/17/1802-May-201801-Jzx-066851:00 Urinalysis, Complete Comments: Order Date: 05/02/18How was Urine Obtained? CLEAN [facility] [address] [place], [address] MUCUS, URINE 0 SEEN {/hpf} [...] (Normal) CLARITY Clear (Normal) COLOR Yellow (Normal) 29-Cei-472478:00 Urine Drug Screen (VISTA) Comments: Order Date: 05/02/18[facility] [address] [place], [place], [address] THC NEGATIVE (Normal) PCP NEGATIVE (Normal) OPIATES [...] TESTING MUST BE ORDERED SEPARATELY. USE TESTMNEMONIC: [facility] 95-Ejg-239541:43 Valproic Acid (Depakene) Level Comments: [facility] [address] [place], [place], [address] VALPROIC ACID 63 ug/mL (Normal) Range: 50-100 83-Jup-390879:20 Basic Metabolic Profile (BMP) Comments: [facility] [address] [place], [place], [address] GAP 7 (Normal) Range: 5-15 CO2 28.0 [...] Comments: Please note revised GLUCOSE reference range zuirlxetr18/02/2018. 78-Pso-737350:20 CBC W/Diff, Automated Comments: [facility] [address] [place], [place], [address] Absolute Lymph 1.48 {X10_3/ul} (Normal) Range: 0.83-4.51 [...] 4.6-6.2 WBC 6.7 K/mm3 (Normal) Range: 4.4-11.0 26-Xev-568207:20 Partial Thromboplast Time Comments: [facility] [address] [place], [place], [address] PTT 30.6 s (Normal) Range: 24.1-36.2 76-Jlo-455422:20 Prothrombin Time w/INR Comments: [facility] [address] [place], [place], [address] INR 1.1 (Normal) PROTIME 14.4 s (Normal) Range: 11.7-14.9 57-Aff-518383:20 Troponin-I Comments: [facility] [address] [place], [address] TROPONIN-I < 0.015 ng/mL (Normal) Comments: TROPONIN-I EXPECTED VALUES <0.045 Negative 0.045 - 0.590 Consistent with Cardiac Damage > OR = 0.600 Critical Value Not every elevated troponin is indicative of [place]. T hesevalues should be used with clinical judgement in examiningthe patient's clinical picture for diagnosis. To establisha diagnosis of [place] versus myocardial injury, there must be ademonstrated rise and/ or fall in the troponin values, inaddition to ischemic symptoms, EKG changes, new regionalwall motion abnormality, and/or angiographical evidence. PLEASE NOTE: REFERENCE RANGES EDITED 02/17/1816-Apr-201882-Ssx-278198:11 Bedside Glucose Comments: [facility] LaboratoryPoint [facility] [address]tyr[address] [place] [address] BEDSIDE GLU 84 mg/dL (Normal) Range: 70-110 Comments: MANAGEMENT OF PATIENT CARE PER NURSING PROTOCOL 20-Yxm-043535:09 Anaerobic & Aerobic Comments: Left Leg; PATIENT NOT FASTINGPERFORMED BY: [facility]CoKindred Hospital at MorrisFtowqd9208 [facility] [id number] Information: LEFT LEG SRC:LG Culture (06961) Result 1 Mixed skin elvira (Normal) Aerobic Culture Final report (Normal) Result 1 NANG72 (Normal) Comments: No anaerobic growth in 72 hours. Anaerobic Culture Final report (Normal) 97-Ipd-99073:17 Alanine Aminotransferas (SGPT) Comments: [facility] [address] [place], [place], [address] ALT 15 U/L (Abnormal) Range: 16-61 79-Usv-20581:17 AST(SGOT) Comments: [facility] [address] [place], [address](026) AST 20 U/L (Normal) Range: 15-37 57-Now-27939:17 Platelet Count Comments: [facility] [address] [place], [address] PLT 178 K/mm3 (Normal) Range: 150-450 97-Fmn-15774:17 Valproic Acid (Depakene) Level Comments: [facility] [address] [place], [address] VALPROIC ACID 73 ug/mL (Normal) Range: 50-100 28-Sdx-968072:05 Basic Metabolic Profile (BMP) Comments: [facility] [address] [place], [address] GAP 4 (Abnormal) Range: 5-15 CO2 33.0 [...] Comments: Please note revised GLUCOSE reference range ecptqvepf55/02/2018. 69-Jxz-995085:05 CBC W/Diff, Automated Comments: [facility] [address] [place], [address] Absolute Lymph 1.28 {X10_3/ul} (Normal) Range: 0.83-4.51 [...] 4.6-6.2 WBC 6.7 K/mm3 (Normal) Range: 4.4-11.0 75-Tje-443458:02 Microscopic Examination Comments: PATIENT WAS FASTINGPERFORMED BY: [employer] [address]ps[address] [place] [facility] [id number] Bacteria Few (Normal) Mucus Threads Present (Normal) Epithelial Cells (non renal) None seen {/hpf} (Normal) Range: 0 - 10 RBC 0-2 {/hpf} (Normal) Range: 0 - 2 WBC 0-5 {/hpf} (Normal) Range: 0 - 5 39-Qhc-897420:02 TSH (93456) Comments: PATIENT WAS FASTINGPERFORMED BY: [employer] Oltgeo9576 [facility] [id number] TSH 3.530 {uIU/mL} (Normal) Range: 0.450-4.500 51-Ldy-387689:02 URINALYSIS, W/ MICRO (14989) Comments: PATIENT WAS FASTINGPERFORMED BY: [facility]6370 [facility] [id number] Microscopic Examination See below: (Normal) Comments: Microscopic was indicated and was performed. Microscopic Examination MICRON (Normal) Comments: Microscopic follows if indicated. Nitrite, Urine Negative (Normal) Urobilinogen,Semi-Qn 0.2 mg/dL (Normal) Range: 0.2-1.0 Bilirubin Negative (Normal) Occult Blood Negative (Normal) Ketones Negative (Normal) Glucose Negative (Normal) Protein Trace (Normal) WBC Esterase Negative (Normal) Appearance Clear (Normal) Urine-Color Yellow (Normal) pH 7.0 (Normal) Range: 5.0-7.5 Specific [place] 1.015 (Normal) Range: 1.005-1.030 66-Wlz-289459:02 MICROALBUMIN: CREATININE RATIO Comments: PATIENT WAS FASTINGPERFORMED BY: [facility]6370 [facility] [id number] (73173) AND (92514) Alb/Creat Ratio 167.0 {mg/g_creat} (Abnormal) Range: 0.0-30.0 Albumin, Urine 110.4 ug/mL (Normal) Creatinine, Urine 66.1 mg/dL (Normal) 61-Iqt-072869:02 METABOLIC PANEL, COMPREHENSIVE Comments: PATIENT WAS FASTINGPERFORMED BY: [facility]6370 [facility] [id number] (12228) ALT (SGPT) 16 [iU]/L (Normal) Range: 0-44 [...] Glucose, Serum 101 mg/dL (Abnormal) Range: 65-99 64-Mmg-243237:02 LIPID PANEL (70045) Comments: PATIENT WAS FASTINGPERFORMED BY: weendy70 [facility]icsNov[facility] [id number] LDL/HDL Ratio 1.3 {ratio_units} (Normal) Range: 0.0-3.6 Comments: LDL/HDL Ratio Men Women 1/2 Avg.Risk 1.0 1.5 Av g.Risk 3.6 3.2 2X Avg.Risk 6.2 5.0 3X Avg.Risk 8.0 6.1 LDL Cholesterol Calc 64 mg/dL (Normal) Range: 0-99 VLDL Cholesterol Justo 16 mg/dL (Normal) Range: 5-40 HDL Cholesterol 50 mg/dL (Normal) Triglycerides 79 mg/dL (Normal) Range: 0-149 Cholesterol, Total 130 mg/dL (Normal) Range: 100-199 43-Vwr-967931:02 CBC W/AUTO DIFF WBC (37936) Comments: PATIENT WAS FASTINGPERFORMED BY: [employer] LabCoComuni-ChiamoZksilr3752 [facility]icsNov[facility] [id number] Immature Grans (Abs) 0.0 {x10E3/uL} (Normal) Range: [...] 4.14-5.80 WBC 6.9 {x10E3/uL} (Normal) Range: 3.4-10.8 35-Bck-329028:52 HgA1C , Office (69131) HgA1C , Office 5.8 % (Normal) Range: 4.6 - 7.1 38-Qti-685899:52 Blood Glucose , Office (73369) Blood Glucose , Office 110 (Normal) 85-Fbg-194710:01 Microscopic Examination Comments: PATIENT NOT FASTINGPERFORMED BY: [facility] Jqszff3534 [facility] [id number] Bacteria Few (Normal) Mucus Threads Present (Normal) Cast Type Hyaline casts (Normal) Casts Present {/lpf} (Abnormal) Epithelial Cells (non renal) None seen {/hpf} (Normal) Range: 0 - 10 RBC 0-2 {/hpf} (Normal) Range: 0 - 2 WBC 0-5 {/hpf} (Normal) Range: 0 - 5 98-Sqc-968083:40 Urine Drug Screen (VISTA) Comments: [facility] [address] [place], [place], [address] THC NEGATIVE (Normal) PCP NEGATIVE (Normal) OPIATES [...] TESTING MUST BE ORDERED SEPARATELY. USE TESTMNEMONIC: [facility] 69-Ykh-068065:06 Alcohol, Blood (Medical)-Serum Comments: [facility] [address] [place], [place], [address] SERUM ETOH < 3.0 mg/dL (Normal) Comments: The serum:whole blood ethanol ratio is approximately 1.14and varies slightly with hematocrit.Medical Alcohol reference interval and critical value innon-tolerant individuals; 50 - 100 Impairment 100 Intoxication 100 - 250 Severe Poisoning 250 - 400 Deep/possible fatal coma 76-Fbj-837245:06 Basic Metabolic Profile (BMP) Comments: [facility] [address] [place], [place], [address] GAP 8 (Normal) Range: 5-15 CO2 29.0 [...] 126 mg/dLsuggests DIABETES MELLITUS per A.D.A. criteria. 81-Tgg-534003:06 CBC W/Diff, Automated Comments: [facility] [address] [place], [place], [address] Absolute Lymph 1.12 {X10_3/ul} (Normal) Range: 0.83-4.51 [...] 4.6-6.2 WBC 8.7 K/mm3 (Normal) Range: 4.4-11.0 :06 Valproic Acid (Depakene) Level Comments: [facility] [address]embuz[address]gl8841 [place], [address] VALPROIC ACID 49 ug/mL (Abnormal) Range: 50-100 4-Hrn-319271:29 HGB A1C (16238) HGB A1C 5.9 % (Normal) Range: 4.6 - 7.1 :57 TSH (32214) Comments: PATIENT WAS FASTINGPERFORMED BY: [employer] [facility] [id number] TSH 3.020 {uIU/mL} (Normal) Range: 0.450-4.500 80-Qno-385628:01 URINALYSIS, W/ MICRO (52990) Comments: PATIENT NOT FASTINGPERFORMED BY: [employer] [facility] [id number] Microscopic Examination See below: (Normal) Comments: Microscopic was indicated and was performed. Microscopic Examination MICRON (Normal) Comments: Microscopic follows if indicated. Nitrite, Urine Negative (Normal) Urobilinogen,Semi-Qn 0.2 mg/dL (Normal) Range: 0.2-1.0 Bilirubin Negative (Normal) Occult Blood Negative (Normal) Ketones Negative (Normal) Glucose Negative (Normal) Protein Negative (Normal) WBC Esterase Negative (Normal) Appearance Clear (Normal) Urine-Color Yellow (Normal) pH 6.5 (Normal) Range: 5.0-7.5 Specific [place] 1.010 (Normal) Range: 1.005-1.030 01-Exd-955009:01 MICROALBUMIN: CREATININE RATIO Comments: PATIENT NOT FASTINGPERFORMED BY: [employer] ResourcesKindred Hospital at MorrisFclhat5477 [facility] [id number] (90144) AND (92932) Microalb/Creat Ratio 43.2 {mg/g_creat} (Abnormal) Range: 0.0-30.0 Microalbumin, Urine 20.9 ug/mL (Normal) Creatinine, Urine 48.4 mg/dL (Normal) :57 METABOLIC PANEL, COMPREHENSIVE Comments: PATIENT WAS FASTINGPERFORMED BY: [employer] Sem[employer]ductorCoKindred Hospital at MorrisWihbgr9349 [facility] [id number] (16150) ALT (SGPT) 6 [iU]/L (Normal) Range: 0-44 [...] Glucose, Serum 79 mg/dL (Normal) Range: 65-99 84-Tmm-381181:57 LIPID PANEL (73127) Comments: PATIENT WAS FASTINGPERFORMED BY: [employer]iconductorCoKindred Hospital at MorrisCpfihh5969 [facility] [id number] LDL/HDL Ratio 1.2 {ratio_units} (Normal) Range: 0.0-3.6 Comments: LDL/HDL Ratio Men Women 1/2 Avg.Risk 1.0 1.5 Av g.Risk 3.6 3.2 2X Avg.Risk 6.2 5.0 3X Avg.Risk 8.0 6.1 LDL Cholesterol Calc 51 mg/dL (Normal) Range: 0-99 VLDL Cholesterol Justo 17 mg/dL (Normal) Range: 5-40 HDL Cholesterol 42 mg/dL (Normal) Triglycerides 84 mg/dL (Normal) Range: 0-149 Cholesterol, Total 110 mg/dL (Normal) Range: 100-199 61-Sgk-204495:57 CBC W/AUTO DIFF WBC (56885) Comments: PATIENT WAS FASTINGPERFORMED BY: LabCoKindred Hospital at MorrisJdqpgk3566 [facility] [id number] Immature Grans (Abs) 0.0 {x10E3/uL} (Normal) Range: [...] 4.14-5.80 WBC 8.5 {x10E3/uL} (Normal) Range: 3.4-10.8 :23 Blood Glucose , Office (10355) Blood Glucose , Office 106 (Normal) 96-Zjf-118031:31 PSA (PROSTATE SPECIFIC Comments: PATIENT WAS FASTINGPERFORMED BY: CG[employer]ader6370 [facility] [id number] ANTIGEN) (V76.44) Prostate Specific Ag, 1.6 ng/mL (Normal) Range: 0.0-4.0 Serum Comments: Car ECLIA methodology. .According to the [place] [employer], Serum PSA shoulddecrease and remain at undetectable levels after radicalprostatectomy. The AUA defines biochemical recurrence as an initialPSA value 0.2 ng/mL or greater followed by a subsequent confirmatoryPSA value 0.2 ng/mL or greater.Values obtained with d ifferent assay methods or kits cannot be usedinterchangeably. Results cannot be interpreted as absolute evidenceof the presence or absence of malignant disease. 57-Fqi-976051:31 HGB A1C (74544) Comments: PATIENT WAS FASTINGPERFORMED BY: [employer] Mpztfk2108 [facility] [id number] Hemoglobin A1c 6.0 % (Abnormal) Range: 4.8-5.6 Comments: . Pre-diabetes: 5.7 - 6.4 Diabetes: >6.4 Glycemic control for adults with diabetes: <7.0 89-Lhk-684986:31 TSH (THYROID STIMULATING Comments: PATIENT WAS FASTINGPERFORMED BY: [employer] Picture[employer]6370 [facility] [place] [id number] HORMONE) (17636) TSH 2.990 {uIU/mL} (Normal) Range: 0.450-4.500 25-Vsu-675824:31 CALCIFEDIOL (89599) Comments: PATIENT WAS FASTINGPERFORMED BY: [employer] Icuqgb5535 [facility] [id number] Vitamin D, 25-Hydroxy 29.6 ng/mL (Abnormal) Range: 30.0-100.0 Comments: Vitamin D deficiency has been defined by the [place] ofMedicine and an Endocrine Society practice guideline as alevel of serum 25-OH vitamin D less than 20 ng/mL (1,2).The Endocrine Society went on to further define vitamin Dinsufficiency as a level between 21 and 29 ng/mL (2).1. IOM ([place] of Medicine). 2010. Dietary reference intakes for calcium and D. [place]: The National Academies Press.2. Forrest MF, Suyapa JAEGER, Lexi ESPINOZA, et al. Evaluation, treatment, and prevention of vitamin D deficiency: an Endocrine Society clinical practice guideline. JCEM. 2010; 96(7):1911-30. 20-Pku-460225:31 MICROALBUMIN: CREATININE RATIO Comments: PATIENT WAS FASTINGPERFORMED BY: [employer]6370 [place] [facility] [id number] (47100) AND (31091) Microalb/Creat Ratio 408.1 {mg/g_creat} (Abnormal) Range: 0.0-30.0 Microalbumin, Urine 85.3 ug/mL (Normal) Creatinine, Urine 20.9 mg/dL (Normal) 08-Wts-983299:31 METABOLIC PANEL, COMPREHENSIVE Comments: PATIENT WAS FASTINGPERFORMED BY: CGTrader6370 [facility]ics[facility] [id number] (47084) ALT (SGPT) 9 [iU]/L (Normal) Range: 0-44 [...] Glucose, Serum 117 mg/dL (Abnormal) Range: 65-99 90-Lgn-912823:31 LIPID PANEL (43750) Comments: PATIENT WAS FASTINGPERFORMED BY: [employer]70 [facility] [id number] LDL/HDL Ratio 1.1 {ratio_units} (Normal) Range: 0.0-3.6 Comments: LDL/HDL Ratio Men Women 1/2 Avg.Risk 1.0 1.5 Av g.Risk 3.6 3.2 2X Avg.Risk 6.2 5.0 3X Avg.Risk 8.0 6.1 LDL Cholesterol Calc 68 mg/dL (Normal) Range: 0-99 VLDL Cholesterol Justo 18 mg/dL (Normal) Range: 5-40 HDL Cholesterol 63 mg/dL (Normal) Triglycerides 88 mg/dL (Normal) Range: 0-149 Cholesterol, Total 149 mg/dL (Normal) Range: 100-199 15-Mcm-934940:31 CBC with auto diff ([id number]) Comments: PATIENT WAS FASTINGPERFORMED BY: [facility] [employer]6370 [facility] [id number] Immature Grans (Abs) 0.0 {x10E3/uL} (Normal) Range: [...] 4.14-5.80 WBC 6.4 {x10E3/uL} (Normal) Range: 3.4-10.8 51-Tyy-413979:00 Urine Drug Screen (VISTA) Comments: [facility] [address] [place], [place], [id number] THC NEGATIVE (Normal) PCP NEGATIVE (Normal) OPIATES [...] TESTING MUST BE ORDERED SEPARATELY. USE TESTMNEMONIC: [facility] 31-Jtk-452888:45 Alcohol, Blood (Medical)-Serum Comments: [facility] [address] [place], [address] SERUM ETOH < 3.0 mg/dL (Normal) Comments: The serum:whole blood ethanol ratio is approximately 1.14and varies slightly with hematocrit.Medical Alcohol reference interval and critical value innon-tolerant individuals; 50 - 100 Impairment 100 Intoxication 100 - 250 Severe Poisoning 250 - 400 Deep/possible fatal coma 35-Kip-262119:45 Basic Metabolic Profile (BMP) Comments: [facility] [address] [place], [place], [id number] GAP 1 (Abnormal) Range: 5-15 CO2 31.0 [...] <126 mg/dLsuggests IMPAIRED HOMEOSTASIS per A.D.A. criteria. 13-Usq-606423:45 CBC W/Diff, Automated Comments: [facility] [address] [place], [place], [id number] Absolute Lymph 1.30 {X10_3/ul} (Normal) Range: 0.83-4.51 [...] 4.6-6.2 WBC 8.2 K/mm3 (Normal) Range: 4.4-11.0 43-Uqq-44373:44 Alcohol, Blood (Medical)-Serum Comments: [facility] Ysmifeuqip9079 [facility] [place], [address] SERUM ETOH < 3.0 mg/dL (Normal) Comments: The serum:whole blood ethanol ratio is approximately 1.14and varies slightly with hematocrit.Medical Alcohol reference interval and critical value innon-tolerant individuals; 50 - 100 Impairment 100 Intoxication 100 - 250 Severe Poisoning 250 - 400 Deep/possible fatal coma :44 CBC W/Diff, Automated Comments: [facility] [address] [place], [address] Absolute Lymph 1.10 {X10_3/ul} (Normal) [...] 4.6-6.2 WBC 6.7 K/mm3 (Normal) Range: 4.4-11.0 79-Uly-01218:44 Comprehensive Metabolic Profil Comments: [facility] [address] [place], [address] GAP 1 (Abnormal) Range: 5-15 CO2 31.0 [...] 70-110 :44 Urine Drug Screen (VISTA) Comments: [facility] [address] [place], [address] THC NEGATIVE (Normal) PCP NEGATIVE [...] UTCA :44 Valproic Acid (Depakene) Level Comments: [facility] [address] [place], [address] VALPROIC ACID < 3 ug/mL (Abnormal) Range: 50-100 73-Eba-835021:53 CBC, PLATELETS & MANUAL Comments: PATIENT NOT FASTINGPERFORMED BY: [facility] Alqgpb9451 [facility] [id number] Information: [id number] DIFF ([id number]) Immature Grans (Abs) 0.0 {x10E3/uL} (Normal) Range: [...] Range: 3.4-10.8 :56 Alcohol, Blood (Medical)-Serum Comments: [facility] [address] [place], [place], [id number] SERUM ETOH 5.0 mg/dL (Normal) Comments: The serum:whole blood ethanol ratio is approximately 1.14and varies slightly with hematocrit.Medical Alcohol reference interval and critical value innon-tolerant individuals; 50 - 100 Impairment 100 Intoxication 100 - 250 Severe Poisoning 250 - 400 Deep/possible fatal coma 3-Aug-98672:56 Basic Metabolic Profile (BMP) Comments: [facility] [address] [place], [place], [phone] GAP 6 (Normal) Range: 5-15 CO2 29.0 [...] A.D.A. criteria. :56 CBC W/Diff, Automated Comments: [facility] [address] [place], [place], [id number] Absolute Lymph 1.36 {X10_3/ul} (Normal) Range: 0.83-4.51 [...] 4.4-11.0 :56 Valproic Acid (Depakene) Level Comments: [facility] Cnpraabkkh2319 [facility] [place], [place], [id number] VALPROIC ACID 33 ug/mL (Abnormal) Range: 50-100 :50 Urine Drug Screen (VISTA) Comments: [facility] Kftgqqffly9858 [facility]. [place], [place], [address] THC NEGATIVE (Normal) PCP NEGATIVE (Normal) OPIATES [...] TESTING MUST BE ORDERED SEPARATELY. USE TESTMNEMONIC: [facility] :53 CBC, PLATELETS & MANUAL Comments: PATIENT NOT FASTINGPERFORMED BY: [facility]6370 [facility] [id number] Information: [id number] DIFF ([id number]) Immature Grans (Abs) 0.0 {x10E3/uL} (Normal) Range: [...] 4.14-5.80 WBC 6.7 {x10E3/uL} (Normal) Range: 3.4-10.8 73-Vza-474927:56 CBC, PLATELETS & MANUAL Comments: PATIENT NOT FASTINGPERFORMED BY: [facility]6370 [facility] [id number] Information: [id number] DIFF ([id number]) Immature Grans (Abs) 0.0 {x10E3/uL} (Normal) Range: [...] 4.14-5.80 WBC 7.7 {x10E3/uL} (Normal) Range: 3.4-10.8 14-Mvv-685971:28 Metabolic Panel, Comprehensive Comments: PATIENT NOT FASTINGPERFORMED BY: [facility] MorrisEdapnm0171 [facility] [id number] ([id number]) ALT (SGPT) 7 [iU]/L (Normal) Range: 0-44 [...] Glucose, Serum 99 mg/dL (Normal) Range: 65-99 04-Fnh-842904:28 CBC, Platelets & Auto Comments: PATIENT NOT FASTINGPERFORMED BY: [facility] Suhbyt7201 [facility] [id number] Information: [id number] Diff ([id number]) Immature Grans (Abs) 0.0 {x10E3/uL} (Normal) Range: [...] 6.9 {x10E3/uL} (Normal) Range: 3.4-10.8 :28 TSH (40416) Comments: PATIENT NOT FASTINGPERFORMED BY: [facility] Nbkleo6200 [employer] [facility] [id number] TSH 3.600 {uIU/mL} (Normal) Range: 0.450-4.500 :06 HgA1C , Office ([id number]) Comments: 5.9 HgA1C , Office 5.9 % (Normal) Range: 4.6 - 7.1 01-Epx-512428:06 Blood Glucose , Office (13594) Blood Glucose , Office 91 (Normal) 25-Nif-997769:06 Urinalysis, Office (20737) UA - LEUKOCYTE ESTERASE Negative (Normal) UA [...] & MANUAL Comments: PATIENT NOT FASTINGPERFORMED BY: [employer] [facility]CoKind[facility] MorrisEtiesn0713 [employer] [facility] [id number] Information: [id number], [id number] DIFF ([id number]) Immature Grans (Abs) 0.0 {x10E3/uL} (Normal) Range: [...] 4.14-5.80 WBC 6.1 {x10E3/uL} (Normal) Range: 3.4-10.8 82-Tyg-816242:50 CBC, PLATELETS & MANUAL Comments: PATIENT NOT FASTINGPERFORMED BY: [facility] at MorrisOeyhay3615 [facility] [id number] Information: [id number] DIFF ([id number]) Immature Grans (Abs) 0.0 {x10E3/uL} (Normal) Range: [...] 4.14-5.80 WBC 5.7 {x10E3/uL} (Normal) Range: 3.4-10.8 1-Oxh-318061:50 CBC, PLATELETS & MANUAL Comments: PATIENT NOT FASTINGPERFORMED BY: [facility] Ugkikc6575 [facility] [id number] Information: [id number] DIFF (09417) Immature Grans (Abs) 0.0 {x10E3/uL} (Normal) Range: [...] 4.14-5.80 WBC 8.2 {x10E3/uL} (Normal) Range: 3.4-10.8 92-Kvv-320924:42 CBC, PLATELETS & MANUAL Comments: PATIENT NOT FASTINGPERFORMED BY: [facility] at MorrisSryzkv5951 [facility] [id number] Information: [id number] DIFF ([id number]) Immature Grans (Abs) 0.0 {x10E3/uL} (Normal) Range: [...] DNA by PCR Comments: Specimen Source? NASAL, [facility] [address]jnhl[address] [place], [place], [id number] SA RESULT NEGATIVE (Normal) MRSA RESULT Negative (Normal) :53 CBC, PLATELETS & MANUAL Comments: PATIENT NOT FASTINGPERFORMED BY: [facility]Kind[facility] at MorrisAvuqwm7224 [facility] [id number] Information: [id number] DIFF ([id number]) Immature Grans (Abs) 0.0 {x10E3/uL} (Normal) Range: [...] 4.14-5.80 WBC 10.1 {x10E3/uL} (Normal) Range: 3.4-10.8 22-Ork-439780:13 PSA (PROSTATE SPECIFIC Comments: PATIENT NOT FASTINGPERFORMED BY: [employer] [facility] [id number] ANTIGEN) (V76.44) Prostate Specific Ag, 1.2 ng/mL (Normal) Range: 0.0-4.0 Serum Comments: [employer] ECLIA methodology. .According to the [place] [employer], Serum PSA shoulddecrease and remain at undetectable levels after radicalprostatectomy. The AUA defines biochemical recurrence as an initialPSA value 0.2 ng/mL or greater followed by a subsequent confirmatoryPSA value 0.2 ng/mL or greater.Values obtained with d ifferent assay methods or kits cannot be usedinterchangeably. Results cannot be interpreted as absolute evidenceof the presence or absence of malignant disease. 73-Bnj-896173:13 Hemoglobin Glyclated (HGB A1C) Comments: PATIENT NOT FASTINGPERFORMED BY: [employer] Pzcsue6193 [facility] [id number] ([id number]) Hemoglobin A1c 6.0 % (Abnormal) Range: 4.8-5.6 Comments: . Pre-diabetes: 5.7 - 6.4 Diabetes: >6.4 Glycemic control for adults with diabetes: <7.0 92-Cem-765445:13 DHEA-S (DEHYDROEPIANDROSTERONE Comments: PATIENT NOT FASTINGPERFORMED BY: [employer] [facility] ResourcesKindred Hospital at MorrisSrruux1596 [facility] [id number] SULFATE) ([id number]) DHEA-Sulfate 133.8 ug/dL (Normal) Range: 48.9-344.2 68-Nph-592968:13 TESTOSTERONE TOTAL (40017) Comments: PATIENT NOT FASTINGPERFORMED BY: [employer] Ctsmoh3329 [facility] [id number] Comment: TESTM (Normal) Comments: Adult male reference interval is based on a population of lean malesup to 40 years old. Testosterone, Serum 529 ng/dL (Normal) Range: 348-1197 42-Nei-536124:13 TSH (03572) Comments: PATIENT NOT FASTINGPERFORMED BY: CiiNOWKindred Hospital at MorrisUlgues2599 [facility] [id number] TSH 2.910 {uIU/mL} (Normal) Range: 0.450-4.500 47-Fpq-646790:13 METABOLIC PANEL, COMPREHENSIVE Comments: PATIENT NOT FASTINGPERFORMED BY: [employer] Eefyad5503 [facility] [id number] (07471) ALT (SGPT) 7 [iU]/L (Normal) Range: 0-44 [...] Glucose, Serum 92 mg/dL (Normal) Range: 65-99 37-Lnh-708287:13 CBC W/AUTO DIFF WBC Comments: PATIENT NOT FASTINGPERFORMED BY: ABHINAV [facility] Hcattq[address] [place] [id number] Information: [id number] ([id number]) Immature Grans (Abs) 0.0 {x10E3/uL} (Normal) Range: [...] Name Dates Details Instructions Essential hypertension : Continue Current Prescription(s) Indication: [...] mental state Altered mental state : Reviewed Color Control Supervisor Letter Indication: Altered mental state Altered mental status, unspecified altered mental status type : Reviewed Lab Indication: Altered mental status, unspecified altered mental status type Altered mental status, unspecified altered mental status type : Reviewed Diagnostic Tests Indication: Altered mental status, unspecified altered mental status type Altered mental status, unspecified altered mental status type : Reviewed Color Control Supervisor Letter Indication: Altered mental status, unspecified altered [...] of lower extremity, unspecified laterality : Reviewed Color Control Supervisor Letter Indication: Cellulitis of lower extremity, unspecified laterality Mild intermittent asthma without complication : Continue Current Prescription(s) Indication: Mild intermittent asthma without complication Controlled diabetes mellitus : Follow up in 3 months Indication: Controlled diabetes mellitus Essential hypertension : HTN/CAD Red Flags Indication: Essential hypertension Dog bite of upper extremity, right, subsequent encounter : Reviewed Color Control Supervisor Letter Indication: Dog bite of upper extremity, right, subsequent encounter Cellulitis of forearm : Continue Current Prescription(s) Indication: Cellulitis of forearm Dog bite of upper extremity, right, initial encounter : Reviewed Color Control Supervisor Letter Indication: Dog bite of upper extremity, [...] Planned Observations CBC, PLATELETS & MANUAL DIFF ([id number])Indication: Essential hypertension On: 19-Mar-2017 Request CBC, PLATELETS & MANUAL DIFF ([id number])Indication: Essential hypertension On: 12-Mar-2017 Request CBC, PLATELETS & MANUAL DIFF ([id number])Indication: Essential hypertension On: 05-Mar-2017 Request CBC, PLATELETS & MANUAL DIFF ([id number])Indication: Essential hypertension On: 26-Feb-2017 Request CBC, PLATELETS & MANUAL DIFF ([id number])Indication: Essential hypertension On: 19-Feb-2017 Request CBC, PLATELETS & MANUAL DIFF ([id number])Indication: Essential hypertension On: 12-Feb-2017 Request CBC, PLATELETS & MANUAL DIFF ([id number])Indication: Essential hypertension On: 05-Feb-2017 Request CBC, PLATELETS & MANUAL DIFF ([id number])Indication: Essential hypertension On: 29-Jan-2017 Request CBC, PLATELETS & MANUAL DIFF ([id number])Indication: Essential hypertension On: 22-Jan-2017 Request CBC, PLATELETS & MANUAL DIFF ([id number])Indication: Essential hypertension On: 15-Jan-2017 Request HgA1C , Office ([id number])Indication: Controlled diabetes mellitus On: 1-Paa-001903:23 Request CBC, PLATELETS & MANUAL DIFF ([id number])Indication: Essential hypertension On: 08-Jan-2017 Request CBC, PLATELETS & MANUAL DIFF ([id number])Indication: Essential hypertension On: 01-Jan-2017 Request CBC, PLATELETS & MANUAL DIFF ([id number])Indication: Essential hypertension On: 25-Dec-2016 Request CBC, PLATELETS & MANUAL DIFF ([id number])Indication: Essential hypertension On: 18-Dec-2016 Request CBC, PLATELETS & MANUAL DIFF ([id number])Indication: Essential hypertension On: 11-Dec-2016 Request CBC, PLATELETS & MANUAL DIFF ([id number])Indication: Essential hypertension On: 04-Dec-2016 Request CBC, PLATELETS & MANUAL DIFF ([id number])Indication: Essential hypertension On: 27-Nov-2016 Request CBC, PLATELETS & MANUAL DIFF ([id number])Indication: Essential hypertension On: 20-Nov-2016 Request CBC, PLATELETS & MANUAL DIFF ([id number])Indication: Essential hypertension On: 13-Nov-2016 Request CBC, PLATELETS & MANUAL DIFF ([id number])Indication: Essential hypertension On: 06-Nov-2016 Request CBC, PLATELETS & MANUAL DIFF ([id number])Indication: Essential hypertension On: 30-Oct-2016 Request Metabolic Panel, Basic ([id number])Indication: Mixed erectile dysfunction On: 24-Ids-116135:23 Request CBC, PLATELETS & MANUAL DIFF ([id number])Indication: Essential hypertension On: 23-Oct-2016 Request CBC, PLATELETS & MANUAL DIFF ([id number])Indication: Essential hypertension On: 16-Oct-2016 Request CBC, PLATELETS & MANUAL DIFF ([id number])Indication: Essential hypertension On: 09-Oct-2016 Request CBC, PLATELETS & MANUAL DIFF ([id number])Indication: Essential hypertension On: 02-Oct-2016 Request CBC, PLATELETS & MANUAL DIFF ([id number])Indication: Essential hypertension On: 25-Sep-2016 Request CBC, PLATELETS & MANUAL DIFF ([id number])Indication: Essential hypertension On: 18-Sep-2016 Request CBC, PLATELETS & MANUAL DIFF ([id number])Indication: Essential hypertension On: 11-Sep-2016 Request CBC, PLATELETS & MANUAL DIFF ([id number])Indication: Essential hypertension On: 04-Sep-2016 Request CBC, PLATELETS & MANUAL DIFF ([id number])Indication: Essential hypertension On: 28-Aug-2016 Request CBC, PLATELETS & MANUAL DIFF ([id number])Indication: Essential hypertension On: 21-Aug-2016 Request CBC, PLATELETS & MANUAL DIFF ([id number])Indication: Essential hypertension On: 14-Aug-2016 Request CBC, PLATELETS & MANUAL DIFF ([id number])Indication: Essential hypertension On: 07-Aug-2016 Request CBC, PLATELETS & MANUAL DIFF ([id number])Indication: Essential hypertension On: 31-Jul-2016 Request CBC, PLATELETS & MANUAL DIFF ([id number])Indication: Essential hypertension On: 24-Jul-2016 Request CBC, PLATELETS & MANUAL DIFF ([id number])Indication: Essential hypertension On: 17-Jul-2016 Request CBC, PLATELETS & MANUAL DIFF ([id number])Indication: Essential hypertension On: 10-Jul-2016 Request CBC, PLATELETS & MANUAL DIFF ([id number])Indication: Essential hypertension On: 03-Jul-2016 Request CBC, PLATELETS & MANUAL DIFF ([id number])Indication: Essential hypertension On: 26-Jun-2016 Request CBC, PLATELETS & MANUAL DIFF ([id number])Indication: Essential hypertension On: 19-Jun-2016 Request CBC, PLATELETS & MANUAL DIFF ([id number])Indication: Essential hypertension On: 12-Jun-2016 Request CBC, PLATELETS & MANUAL DIFF ([id number])Indication: Essential hypertension On: 05-Jun-2016 Request CBC, PLATELETS & MANUAL DIFF ([id number])Indication: Essential hypertension On: 29-May-2016 Request CBC, PLATELETS & MANUAL DIFF ([id number])Indication: Essential hypertension On: 22-May-2016 Request MICROALBUMIN: CREATININE RATIO ([id number]) AND ([id number])Indication: Weakness On: 85-Tjr-628670:22 Request CBC, PLATELETS & MANUAL DIFF ([id number])Indication: Essential hypertension On: 24-Apr-2016 Request MRSA Culture ([id number])Indication: Nasal lesion On: 85-Fna-087125:43 Request BELKIS CULTURE-BLOOD ([id number])Indication: History of bacteremia On: 61-Stt-313168:27 Request Aerobic Bacterial Culture ([id number])Indication: Nasal lesion On: 78-Ndq-006843:25 Request URINALYSIS, W/ MICRO ([id number])Indication: Essential hypertension On: 69-Hdh-230556:41 Request MICROALBUMIN: CREATININE RATIO ([id number]) AND ([id number])Indication: Essential hypertension On: 32-Bhp-756500:41 Request Planned Encounters Medical; 6 Week FU - On: 30-Jul-2018 14:15 [facility], [facility] Month FU - On: 03-Oct-2018 7:00 [facility] Dhara Taylor DO, DO, Kathleen Planned Procedures MRI BRAIN W/ CONTRAST ([id number])By: On: 07-May-2018 Intent Dhara Taylor DO, DO, Kathleen ELECTROCARDIOGRAM, COMPLETE (ECG) On: 29-Oct-2017 Intent ([id number])By: Dhara Taylor DO Comments: nsr no acute chg Dhara Taylor DO Spirometry ([id number])By: Claudia RESENDEZ, On: 29-Oct-2017 Intent Dhara Hendricks DO Comments: #1 severe obstruction #2 severe obstruction -not much different after brisk walk TDAP VACCINE >7 IM ([id number])By: On: 26-Apr-2017 Intent Dhara Taylor DO, DO, Comments: Lot:[id number]:05/23/19Dose:0.5mgRoute:im Site:[facility] By:GLORIA signed Dhara ELECTROCARDIOGRAM, COMPLETE (ECG) On: 10-Jan-2017 Intent ([id number])By: Dhara Taylor DO Comments: pt refused Dhara Taylor DO Aerosol Treatment ([id number])By: On: 05-Aug-2015 Intent Dhara Taylor DO, DO, Kathleen Spirometry ([id number])By: Claudia RESENDEZ, On: 05-Aug-2015 Intent Dhara Hendricks [...] : Patient Instructions Indication: Sinusitis, acute Encounters Phone Encounter On: 12-Jun-2018 15:43 Encounter Diagnosis: [...] Reason for hospitalization note: ([address] [facility] [place] I broke up a dog fight and [...] Reason for hospitalization note: ([address] [facility] [place] I broke up a dog fight and I had some stiches in the rt arm). Patient has been compliant with instructions. Current medication use: no side End: 26-Apr-2017 15:00 effects and compliant with dosing regimen.Encounter Diagnosis: Dog bite of upper extremity, right, initial encounter, Cellulitis of forearm, Need for Tdap vaccination (Renamed from Need for kmlfqjzwoc-oeloioo-gwqzzzzhd (Tdap) vaccine, adult/a dolescent) [facility] [...] like [place] [address] [place] disorder. Have been incontinent of urine and extreme weakness. Was seeing Dr. Longoria at [facility] switched to Dr. Zhu Diagnosis: Weakness, End: [...] The last clinic visit was month(s) ago (2012). No changes in management were made at [...] for prostate cancer) [facility] [employer] Marcelina Sosa; jose f guarantor
--- OUTSIDE RECORDS SUMMARY | 2018-10-15 01:46 | XMS RPT_ITS ---
:1955 Author Organization OHIP Support Name Relationship Address Phone GOMES, PAULA Unavailable Unavailable + [place] [address] D Unavailable Unavailable Unavailable GOMES, PAULA Unavailable Unavailable + [place] [address] D Unavailable Unavailable Unavailable GOMES, PAULA Unavailable Unavailable + [place] [address] D Unavailable Unavailable Unavailable GOMES, PAULA Unavailable Unavailable + [place] [address] D Unavailable Unavailable Unavailable GOMES, PAULA Unavailable Unavailable + [place] [address] D Unavailable Unavailable Unavailable GOMES, PAULA Unavailable Unavailable + [place] [address] D Unavailable Unavailable Unavailable GOMES, PAULA Unavailable Unavailable + [place] [address] D Unavailable Unavailable Unavailable GOMES, PAULA Unavailable Unavailable + [place] [address] D Unavailable Unavailable Unavailable GOMES, PAULA Unavailable Unavailable + [place] [address] D Unavailable Unavailable Unavailable GOMES, PAULA Unavailable Unavailable + [place] [address] D Unavailable Unavailable Unavailable GOMES, PAULA Unavailable Unavailable + [place] [address] D Unavailable Unavailable Unavailable GOMES, PAULA Unavailable Unavailable + [place] [address] D Unavailable Unavailable Unavailable GOMES, PAULA Unavailable Unavailable + [place] [address] D Unavailable Unavailable Unavailable GOMES, PAULA Unavailable Unavailable + [place] [address] D Unavailable Unavailable Unavailable GOMES, PAULA Unavailable Unavailable + [place] [address] D Unavailable Unavailable Unavailable GOMES, PAULA Unavailable Unavailable + [place] [address] D Unavailable Unavailable Unavailable GOMES, PAULA Unavailable Unavailable + [place] [address] D Unavailable Unavailable Unavailable GOMES, PAULA Unavailable Unavailable + [place] [address] D Unavailable Unavailable Unavailable GOMES, PAULA Unavailable Unavailable + [place] [address] D Unavailable Unavailable Unavailable GOMES, PAULA Unavailable . + [place] [address] D Unavailable Unavailable Unavailable GOMES, PAULA Unavailable . + [place] [address] D Unavailable Unavailable Unavailable Care Team Providers Name Role Phone Claudia DO, Dhara Attending Unavailable Claudia DO, Dhara Referring Unavailable Claudia DO, Dhara Consulting Unavailable Claudia, Dhara Primary Care Unavailable Blayne Caldwell Attending Unavailable Roger Carney Attending Unavailable Astreika, Vera Attending Unavailable Astreika, Vera Referring Unavailable Claudia, Dhara Primary Care Unavailable Claudia, Dhara Primary Care Unavailable Petrona Rios Attending Unavailable MalysSamantha Attending Unavailable Claudia, Dhara Primary Care Unavailable Malys Samantha Attending Unavailable Claudia, Dhara Primary Care Unavailable Claudia, Dhara Primary Care Unavailable Quentin Winkler Attending Unavailable Claudia, Dhara Primary Care Unavailable Agyepong, Samuel Admitting Unavailable Marino Santos Attending Unavailable Melaniepong, Samuel Admitting Unavailable Agyepong Samuel Attending Unavailable Claudia, Dhara Primary Care Unavailable Agyepong, Samuel Consulting Unavailable Agyepong, Samuel Admitting Unavailable Danielle, Marino Attending Unavailable Claudia, Hdara Primary Care Unavailable Danielle, Marino Consulting Unavailable Claudia, Dhara Primary Care Unavailable Gabriela Barrett Attending Unavailable Malys, Samantha Attending Unavailable Claudia, Dhara Primary Care Unavailable Claudia, Dhara Primary Care Unavailable White, Kristal Admitting Unavailable Hemant Sow Attending Unavailable White, Kristal Attending Unavailable Claudia, Dhara Primary Care Unavailable White, Kristal Admitting Unavailable Danielle Marino Attending Unavailable Claudia, Dhara Primary Care Unavailable Tereletsky, Marino Consulting Unavailable White, Kristal Admitting Unavailable Hemant Sow Attending Unavailable Claudia, Dhara Primary Care Unavailable Hemant Sow Consulting Unavailable Ajit Benavidez Attending Unavailable Astreika, Vera Attending Unavailable Astreika, Vera Referring Unavailable Claudia, Dhara Primary Care Unavailable Claudia, Dhara Attending Unavailable Claudia, Dhara Referring Unavailable Claudia, Dhara Primary Care Unavailable Claudia, Dhara Primary Care Unavailable Blayne Caldwell Attending Unavailable Claudia, Dhara Primary Care Unavailable Reji Lovell Attending Unavailable PROBLEMS PROBLEMS DATE TYPE CONDITION / CODE ATTENDING STATUS SOURCE 09/02/2018 Unknown Z51.81 - Claudia, Active [place] Encounter for [facility] drug Hospital level monitoring Repository / Z51.81(ICD-10) 06/23/2018 Unknown Z79.899 - Other Joanna Vera Active [place] [facility] (current) drug Hospital therapy / Repository Z79.899(ICD-10) 01/10/2018 Unknown M79.89 - Other Roger Carney Active [place] [facility] / M79.89(ICD-10) Repository PROCEDURES PROCEDURES No Procedure Records FoundRESULTS RESULTS 12 LEAD ELECTROCARDIOGRAM Observed: 09/09/2018 Status: F Source: [place] 2:09 PM [facility] REPOSITORY [facility] Cardiovascular Services [address] [place] [address] 12 Lead EKG 09/05/18 1902 MR#: [id number] Acct: [id number] Name: AJIT GRIMALDO Rep #: [id number] : 1955 62 From: Moises Richard MD Attending Dr: Status: DEP ER Ordering Dr: Blayne Caldwell DO Date: 09/05/18 Location: ED Sex: M C Admitted: Test Reason : ANXIETY Blood Pressure : / mmHG Vent. Rate : 075 BPM Atrial Rate : 075 BPM P-R Int : 164 ms QRS Dur : 084 ms QT Int : 380 ms P-R-T Axes : 075 060 069 degrees QTc Int : 424 ms Normal sinus rhythm Normal ECG Confirmed by MATILDE ALSTON, MOISES ([id number]), commercial production editor DANNA LIZAMA ([id number]) on 09/09/2018 2:09:11 PM Referred By: Dhara Taylor Confirmed By:MOISES RICHARD MD 09/09/18 1409 Date Moises Richard MD CC: Dhara Taylor DO; Blayne Caldwell DO Signed DISCHARGE INSTRUCTION Observed: 09/06/2018 Status: F Source: [place] 4:15 PM [facility] REPOSITORY [facility] Medical Records Department [address] [place] [address] Discharge Instruction 09/06/18 1241 MR#: [id number] Acct: [id number] Name: AJIT GRIMALDO Rep #: [id number] : 1955 62 From: Reji Lovell MD [...] your Primary Care Provider. Call [facility] ([phone]) or report to the closest Emergency Room. Call 911 if necessary. 09/06/18 1615 <Electronically signed by Reji Lovell MD> Date Reji Lovell MD Cosigner Signature (If Indicated): Date CC: Dhara Taylor DO EMERGENCY DEPARTMENT Observed: 09/06/2018 Status: F Source: [place] SUMMARY 4:15 PM [facility] REPOSITORY [facility] Medical Records Department [address] [place] [address] Emergency Department Summary 09/06/18 1238 MR#: [id number] Acct: [id number] Name: AJIT GRMIALDO Rep #: [id number] : 1955 62 From: Reji Lovell MD PCP: Dhara Taylor DO Status: DEP ER - ER Visit Summary Date of Service: 09/06/18 Chief Complaint: Chest pain History of Present Illness: The patient is a 62 M who presents with chest pain. When I asked him what part of his chest is affected, he points to his epigastric region. He says his symptoms are worse with food and better with burping. He was seen here last night for the same thing and had a negative workup. He was discharged home. He is requesting an acids today specifically Prilosec. They have helped before. He denies any other abdominal pain or GI symptoms. Denies any new chest pain or respiratory symptoms. Denies any history of blood clots or aortic problems. Denies fevers or recent illness. Physical Examination: Afebrile and vital signs unremarkable except for a blood pressure of 174/68. Sitting comfortably. Alert and oriented. No acute distress. Skin appears normal in color without diaphoresis, jaundice, or pallor. Heart regular rate and rhythm. Lungs clear to auscultation bilaterally. Abdomen soft and nontender. No guarding or rebound. No distention. Moves all extremities. Pulses strong and equal. No edema. Test Results: None indicated. I reviewed his labs from last night. Emergency Department Course and Treatment: Patient was treated with a GI cocktail. At his request we will prescribe Prilosec. Declined any further testing or evaluation. He was advised to return for any new or worsening issues. Otherwise, follow-up with primary care. Treatment Plan: As above Disposition: Discharge Impression: 1. Epigastric pain This note was generated with SupportLocal dictation software. It may contain incorrect words, spelling, and punctuation that were not noted in review of the chart prior to signing ED Disposition - Plan for ED Patient: Chief Complaint: Chest Other Referrals: Dhara Taylor DO [Primary Care Provider] - What to do if you have Problems For any increased pain, shortness of breath, bleeding, nausea or vomiting, chest pain, or any unexpected problems, contact your Primary Care Provider. Call [facility] ([phone]) or report to the closest Emergency Room. Call 911 if necessary. 09/06/18 1615 <Electronically signed by Reji Lovell MD> Date Reji Lovell MD Cosigner Signature (If Indicated): Date CC: Dhraa Taylor DO DISCHARGE INSTRUCTION Observed: 09/05/2018 Status: F Source: [place] 8:30 PM [facility] REPOSITORY [facility] Medical Records Department [address] [address] [address] Discharge Instruction 09/05/182028 MR#: [id number] Acct: [id number] Name: AJIT GRIMALDO Rep #: [id number] : 1955 62 From: Blayne Caldwell DO [...] your Primary Care Provider. Call [facility] ([phone]) or report to the closest Emergency Room. Call 911 if necessary. 09/05/18 2030 <Electronically signed by Blayne Caldwell DO> Date Blayne Caldwell DO Cosigner Signature (If Indicated): Date CC: Dhara Taylor DO EMERGENCY DEPARTMENT Observed: 09/05/2018 Status: F Source: [place] SUMMARY 8:29 PM [facility] REPOSITORY [facility] Medical Records Department [address] [place] [address] Emergency Department Summary 09/05/182023 MR#: [id number] Acct: [id number] Name: AJIT GRIMALDO Rep #: [id number] : 1955 62 From: Blayne Caldwell DO PCP: Dhara Taylor DO Status: REG ER - ER Visit Summary Date of Service: 09/05/18 Chief Complaint: [Chest pain] History of Present Illness: The patient is a 62 M [presents the emergency department via EMS with complaint of chest pain that started about 40 minutes prior to coming in. Patient describes a sudden onset of sharp stabbing pain in his epigastric region that lasted about 10 minutes and then resolved. Patient states that once EMS got there his pain had resolved and then he felt embarrassed about coming in. Patient states that it felt like a bubble in his chest that kind of came up and released and then his pain resolved. Patient became very anxious as he was having the discomfort. He denied any radiation of the pain. He denied any shortness of breath. He denies any nausea or vomiting associated with it. Patient denied any diaphoresis. He had never had pain like this before. Patient denies any history of exertional dyspnea. He is currently pain-free. Patient does have a history of CHF, COPD, TIAs, diabetes, and schizophrenia. Patient currently lives in a long-term where they give him his medication daily therefore he has been compliant with all his [...] 0.015. Valproic acid was 58. Chest x-ray unremarkable.] Emergency Department Course and Treatment: [Patient remained pain-free in the emergency department. He had received aspirin.] Treatment Plan: [Patient advised to follow-up with his primary care physician within next 3-5 days. At this point I do not believe his chest pain is cardiac is it is extremely atypical. Patient's heart score is a 2.] I suspect likely GI cause for his symptoms. Disposition: [Discharged to home in stable condition Impression: [Chest pain-etiology uncertain] This note was generated with SupportLocal dictation software. It may contain incorrect words, spelling, and punctuation that were not noted in review of the chart prior to signing ED Disposition - Plan for ED Patient: Chief Complaint: Anxiety Referrals: Dhara Taylor, [Primary Care Provider] - What to do if you have Problems For any increased pain, shortness of breath, bleeding, nausea or vomiting, chest pain, or any unexpected problems, contact your Primary Care Provider. Call [facility] ([phone]) or report to the closest Emergency Room. Call 911 if necessary. 09/05/182028 <Electronically signed by Blayne Caldwell DO> Date Blayne Caldwell DO Cosigner Signature (If Indicated): Date CC: Dhara Taylor DO CBC W/DIFF, AUTOMATED Collected: 09/05/2018 Status: F Source: [place] 6:45 PM [facility] REPOSITORY TYPE CODE TESTS RESULT OUT OF RANGE REFERENCE UNITS LAB L100.1000 4.4-11.0 K/mm3 Normal WBC 7.3 LAB L100.1200 4.6-6.2 M/mm3 Low RBC 4.17 LAB L100.1300 13.0-16.5 g/dl Low HGB 12.3 LAB L100.1400 40-54 % Low HCT 36.6 LAB L100.1500 80-94 fL Normal MCV 87.8 LAB L100.1600 27.0-32.0 pg Normal MCH 29.5 LAB L100.1700 32-36 g/gl Normal MCHC 33.6 LAB L100.1810 11.6-14.6 % Normal RDW CV 12.7 LAB L100.1820 35.1-43.9 fl Normal RDW SD 40.9 LAB L100.1900 150-450 K/mm3 Normal PLT 210 LAB L100.2000 6.2-12.0 fl Normal MPV 10.2 LAB L100.2100 47-70 % Normal NEUT% 60.4 LAB L100.2200 19-41 % Normal LY% 24.7 LAB L100.2300 0-10 % High MONO% 10.5 LAB L100.2400 0-5 % Normal EO% 3.4 LAB L100.2500 0-1 % Normal BASO% 0.7 LAB L100.2550 0.0-0.9 % Normal IM GRAN % 0.300 Result Comment: IG% - Immature Granulocytes (promyelocytes, myelocytes and metamyelocytes) > 1% indicates that a LEFT SHIFT is Present. LAB L100.2620 2.0-7.7 X10 3/uL Normal Absolute Neut 4.4 LAB L100.2720 0.83-4.51 X10 3/ul Normal Absolute Lymph 1.80 Performed By: #### L100.0100 #### [facility] [address] [place] [address]. [place], [address] BASIC METABOLIC Collected: 09/05/2018 Status: F Source: [place] PROFILE (BMP) 6:45 PM [facility] REPOSITORY TYPE CODE TESTS RESULT OUT OF RANGE REFERENCE UNITS LAB L501.0100 74-106 mg/dL Normal GLU 99 Result Comment: Please note revised GLUCOSE reference range effective 2017. LAB L501.1000 7-18 mg/dL Normal BUN 17 LAB L501.1100 0.70-1.30 mg/dL Normal CREAT,SERUM 1.06 Result Comment: The validity of the calculated GFR AND GFRAA in patients over 70 years has not been determined. Clinical correlation is essential. LAB L501.1110 >60 mL/min Normal EST GFR 75 Result Comment: Non- GFR Calc LAB L501.1115 >60 mL/min Normal EST GFR - AA 91 Result Comment: GFR Calc LAB L501.1255 ml/min Normal Estimated CRCL 75.56 LAB L501.1300 10-20 RATIO Normal BUN/CRE 16.0 LAB L501.2200 8.5-10 mg/dL Low .1 CA 8.3 LAB L501.5300 136-14 mmol/L Low 5 NA 135 LAB L501.5600 3.5-5. mmol/L Normal 1 K 3.9 LAB L501.5900 98-107 mmol/L Normal CL 99 LAB L501.6100 21.0-3 mmol/L Normal 2.0 CO2 28.0 LAB L501.6200 5-15 Normal GAP 8 Performed By: #### L500.2500, L501.4010 #### [facility] [address] [facility] [place] [place], [address] TROPONIN-I Collected: 09/05/2018 Status: F Source: [place] 6:45 PM [facility] REPOSITORY TYPE CODE TESTS RESULT OUT OF RANGE REFERENCE UNITS LAB L501.4010 <0.045 ng/mL Normal < 0.015 TROPONIN-I Result Comment: TROPONIN-I EXPECTED VALUES <0.045 Negative 0.045 - 0.590 Consistent with Cardiac Damage > OR = 0.600 Critical Value Not every elevated troponin is indicative of MT. These values should be used with clinical judgement in examining the patient's clinical picture for diagnosis. To establish a diagnosis of MT versus myocardial injury, there must be a demonstrated rise and/or fall in the troponin values, in addition to ischemic symptoms, EKG changes, new regional wall motion abnormality, and/or angiographical evidence. PLEASE NOTE: REFERENCE RANGES EDITED 18 Performed By: #### L500.2500, L501.4010 #### [facility] [address] [facility]. [place], [place], [id number] VALPROIC ACID Collected: 09/05/2018 Status: F Source: [place] (DEPAKENE) LEVEL 6:45 PM [facility] REPOSITORY TYPE CODE TESTS RESULT OUT OF RANGE REFERENCE UNITS LAB L501.8100 50-100 ug/mL Normal VALPROIC ACID 58 Performed By: #### L501.8100 #### [facility] [address] [place], [address] CHEST 1 VIEW Observed: 09/05/2018 Status: F Source: [place] (PORTABLE) 6:38 PM [facility] REPOSITORY [facility] Imaging Services [address] [place] [address] Chest 1 View (Portable) MR#: [id number] Acct: [id number] Name: AJIT GRIMALDO Rep #: [id number] : 1955 M 62 From: Vladimir Pandya MD PCP: Dhara Taylor DO Status: REG ER Study: Chest 1 View (Portable) Date of Exam: 09/05/18 Exam# [id number] Ordering Dr: Blayne Caldwell DO STUDY: X-RAY CHEST REASON FOR EXAM: Male, 62 years old. Chest pain and TECHNIQUE: Frontal view of the chest COMPARISON: 05/08/2018 FINDINGS: The lungs are clear. There are no pleural effusions. There is no pneumothorax. The heart is normal in size. Again noted are old, healed right-sided rib fractures. RAD/Chest 1 View (Portable) IMPRESSION: No acute thoracic pathology. Electronically Signed: Vladimir Pandya, at 19:14 EST Tel , Service support , CC: Dhara Taylor DO; Blayne Caldwell DO Associate Web Developer: Signed BASIC METABOLIC Collected: 09/02/2018 Status: F Source: [place] PROFILE (BMP) 10:30 AM [facility] REPOSITORY TYPE CODE TESTS RESULT OUT OF RANGE REFERENCE UNITS LAB L501.0100 74-106 mg/dL Normal GLU 100 Result Comment: Fasting Glucose result from 100 to 125 mg/dL suggests IMPAIRED HOMEOSTASIS per A.D.A. criteria. Please note revised GLUCOSE reference range effective 2017. LAB L501.1000 7-18 mg/dL Normal BUN 18 LAB L501.1100 0.70-1.30 mg/dL Normal CREAT,SERUM 1.12 Result Comment: The validity of the calculated GFR AND GFRAA in patients over 70 years has not been determined. Clinical correlation is essential. LAB L501.1110 >60 mL/min Normal EST GFR 71 Result Comment: Non- GFR Calc LAB L501.1115 >60 mL/min Normal EST GFR - AA 86 Result Comment: GFR Calc LAB L501.1300 10-20 RATIO Normal BUN/CRE 16.1 LAB L501.2200 8.5-10.1 mg/dL CA Normal 8.9 LAB L501.5300 136-145 mmol/L NA Normal 136 LAB L501.5600 3.5-5.1 mmol/L K Normal 4.4 LAB L501.5900 98-107 mmol/L CL Normal 98 LAB L501.6100 21.0-32.0 mmol/L Normal CO2 31.0 LAB L501.6200 5-15 Normal GAP 7 Performed By: #### L500.2500 #### [facility] [address] [place], [address] PLATELET COUNT Collected: 06/23/2018 Status: F Source: [place] 11:21 AM [facility] REPOSITORY TYPE CODE TESTS RESULT OUT OF RANGE REFERENCE UNITS LAB L100.1900 150-450 K/mm3 Normal PLT 182 Performed By: #### L100.1900 #### [facility] [address] [place], [address] AMMONIA Collected: 06/23/2018 Status: F Source: [place] 11:21 AM [facility] REPOSITORY TYPE CODE TESTS RESULT OUT OF RANGE REFERENCE UNITS LAB L503.5510 11-32 umol/L Normal AMMONIA 12.0 Performed By: #### L503.5510 #### [facility] [address] [place], [address] VALPROIC ACID Collected: 06/23/2018 Status: F Source: [place] (DEPAKENE) LEVEL 11:21 AM [facility] REPOSITORY TYPE CODE TESTS RESULT OUT OF RANGE REFERENCE UNITS LAB L501.8100 50-100 ug/mL Normal VALPROIC ACID 87 Performed By: #### L501.8100 #### [facility] [address] [place], [address] AST(SGOT) Collected: 06/23/2018 Status: F Source: [place] 11:21 AM [facility] REPOSITORY TYPE CODE TESTS RESULT OUT OF RANGE REFERENCE UNITS LAB L501.4100 15-37 U/L Normal AST 19 Performed By: #### L501.4100, L501.4405, L3100.5420 #### [facility] [address] [facility] [address] ALANINE AMINOTRANSFERAS Collected: 06/23/2018 Status: F Source: [place] (SGPT) 11:21 AM [facility] REPOSITORY TYPE CODE TESTS RESULT OUT OF RANGE REFERENCE UNITS LAB L501.4405 16-61 U/L Low ALT 14 Performed By: #### L501.4100, L501.4405, L3100.5420 #### [facility] [address] [place], [address] PROLACTIN Collected: 06/23/2018 Status: F Source: [place] 11:21 AM [facility] REPOSITORY TYPE CODE TESTS RESULT OUT OF RANGE REFERENCE UNITS LAB L3100.5420 ng/mL Normal PROLACTIN 20.8 Result Comment: NORMAL REFERENCE RANGES FEMALE NON- 2.2 - 30.3 ng/mL 8.1 - 347.6 ng/mL POST-MENOPAUSAL 0.7 - 31.5 ng/mL MALE 2.5 - 17.4 ng/mL NEW TEST METHOD AND REFERENCE RANGES FEBRUARY 25, 2012 Performed By: #### L501.4100, L501.4405, L3100.5420 #### [facility] [address] [place], [address] 12 LEAD ELECTROCARDIOGRAM Observed: 05/12/2018 Status: F Source: [place] 2:17 PM [facility] REPOSITORY [facility] Cardiovascular Services [address] [place] [address] 12 Lead EKG 05/08/18 1757 MR#: [id number] Acct: [id number] Name: AJIT GRIMALDO Rep #: [id number] : 1955 62 From: Ajit Benavidez MD Attending Dr: Hemant Sow DO Status: DIS FRANCK Ordering Dr: Petrona Rios MD Date: 05/08/18 Location: [facility] Sex: M C Admitted: 05/08/18 Test Reason : CONFUSION Blood Pressure : / mmHG Vent. Rate : 067 BPM Atrial Rate : 067 BPM P-R Int : 152 ms QRS Dur : 084 ms QT Int : 402 ms P-R-T Axes : 077 059 067 degrees QTc Int : 424 ms Normal sinus rhythm Normal ECG Confirmed by PRAMOD ALSTON, AJIT ([id number]), commercial production editor DANNA LIZAMA ([id number]) on 05/12/2018 2:17:00 PM Referred By: EDI Confirmed By:AJIT BENAVIDEZ MD 05/12/18 1417 Date Ajit Benavidez MD CC: Petrona Rios MD; Hemant Sow DO; Dhara Taylor DO Signed DISCHARGE SUMMARY Observed: 05/10/2018 Status: F Source: [place] 12:47 PM [facility] REPOSITORY [facility] Medical Records Department [address] [place] [address] Discharge Summary 05/10/18 1244 MR#: [id number] Acct: [id number] Name: AJIT GRIMALDO Rep #: [id number] : 1955 62 From: Hemant Sow DO PCP: Dhara Taylor DO Status: ADM FRANCK Y Location: [place] [address] Discharge Date and Diagnosis - Problem List Patient Problems: Active and Suspected Problems Mastoiditis (Acute) Date of Admission: 05/08/18 Date of Discharge: 05/10/18 - Primary Discharge Diagnosis Active and Suspected Problems Mastoiditis (Acute) - Secondary Discharge Diagnosis Chronic Problems Venous ulcer of left lower extremity without varicose veins (Chronic) Schizophrenia (Chronic) COPD (chronic obstructive pulmonary disease) (Chronic) Right-sided heart failure (Chronic) Type II diabetes mellitus (Chronic) Bilateral leg edema (Chronic) Hospital Course and Treatment Imaging Results: Clinical Impression(s) from Imaging Studies Brain CT 05/08/18 17:40 IMPRESSION: Normal unenhanced CT scan of the brain. Electronically Signed: Lorne Augustine MD at 18:37 EDT , Service support , Chest X-Ray 05/08/18 18:30 IMPRESSION: There are no acute findings. Electronically Signed: Lorne Augustine MD at 18:42 EDT , Service support , Brain MRI 05/09/18 22:29 IMPRESSION: 1. Involutional changes of the brain, as described above. 2. No MR evidence for acute infarct. 3. 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 Electronically Signed: Gaby Lizama MD at 9:35 EDT , Service support , Head MRA 05/09/18 22:29 IMPRESSION: Technically limited MRA due to patient motion. Electronically Signed: Gaby Lizama MD at 10:12 EDT , Service support , Neck MRA 05/09/18 22:29 IMPRESSION: Technically limited MR age due to patient motion without definite hemodynamically significant stenosis. Electronically Signed: Gaby Lizama MD at 10:25 EDT , Service support , Operations: None, - - Debridement Procedures: None Summary of Care Provided: The patient is a 62 year old M presents with behavior changes from long-term. Patient had no focal deficits. And her undergo MRI which was negative for any stroke or TIA. Saw that these behavioral disturbances more line just with fluctuations of his schizophrenia. Was noted that the patient did have a mastoiditis which is more chronic process and not an acute process. And I do not feel that mastoiditis is directly contributing to the patient's behavioral changes, however, would recommend treating with Cipro eardrops for 2 weeks and also for the patient follow-up with otolaryngology to see if any kind of surgical measures are necessary. Patient did have an elevated ammonia of 48. Patient did receive 1 dose of lactulose which patient did have improvement of his ammonia level but I felt that it was not directly related with the lactulose itself as it was only checked an hour after given the dose of lactulose. I do not feel that his ammonia level is warrants treatment. The hyperammonia anemia may be related with his Depakote usage. Patient was evaluated by crisis and to require any inpatient needs for psychiatric purposes. Patient will be returning back to his long-term in stable condition. [] Discharge Diet: No Restrictions Discharge Activity: Return to Normal Activity Call your doctor if you observe: Fever of 101 or Higher, Inability to urinate, Shortness of breath Home Medications: Medications to take at Discharge Multivitamin [Multiple Vitamins] 1 tab PO DAILY 09/23/16 Lorazepam [Ativan] 1 mg PO DAILY PRN 09/25/16 Fluticasone Propionate [Flonase Allergy Relief] 1 spray NARES DAILY #1 spray.susp 08/07/17 Benztropine [Cogentin] 1 mg PO TID 11/26/17 Albuterol Inhaler [Ventolin Hfa] 2 puff INHALATION Q6H PRN PRN 03/21/18 Lisinopril 20 mg PO DAILY 03/21/18 Naproxen [Naprosyn] 500 mg PO BID PRN #20 tab 04/16/18 Aspirin E.C. [Ecotrin] 325 mg PO DAILY@0800 05/02/18 Bupropion HCl [Bupropion Xl] 150 mg PO DAILY 05/02/18 Divalproex Sodium [Depakote] 500 mg PO TID 05/02/18 Fexofenadine HCl 180 mg PO DAILY 05/02/18 Fluticasone/Salmeterol [Advair 250-50 Diskus] 1 inh INHALATION BID 05/02/18 Metformin HCl [Glucophage] 500 mg PO DAILY 05/02/18 Risperidone Microspheres [Risperdal Consta] 50 mg IM .COMPLEX 05/02/18 Ciprofloxacin 0.3% [Ciloxan] 2.5 drp LEFT EAR BID #1 bottle 05/10/18 Following Prescrptions Were Given to Patient: Ciprofloxacin 0.3% [Ciloxan] 2.5 drp LEFT EAR BID #1 bottle Primary Care Physician: Dhara Taylor DO [Primary Care Provider] - Within 2 Weeks Please Follow Up With: ENT - Left mastoiditis follow up. When: 1 month Disposition: Home Minutes spent on discharge:: 35 Patient Condition:: Fair Medical Necessity - Tobacco Use Smoking Status: Current every day smoker Tobacco Use: Cigarettes Meaningful Use Info Meaningful Use Diagnoses (Choose all that apply): None applicable Code Visit Inpatient E AND M: 87182 Disch Hosp 05/10/18 1247 <Electronically signed by Hemant Sow DO> Date Hemant Sow DO Cosigner Signature (if applicable): Date CC: Hemant Sow DO; Dhara Taylor DO Signed DISCHARGE INSTRUCTION Observed: 05/10/2018 Status: F Source: [place] 12:44 PM [facility] REPOSITORY [facility] Medical Records Department [address] [place] [id number] Instructions for Home/Discharge Instructions 05/10/18 1241 MR#: [id number] Acct: [id number] Name: AJIT GRIMALDO Rep #: [id number] : 1955 62 From: Hemant Sow DO PCP: Dhara Taylor DO Status: ADM FRANCK You will use the following diet at home:: No restrictions Your food should be the consistency of: Regular Your liquids should be the consistency of: Regular/Thin Discharge Activity: Return to Normal Activity Call your doctor if you observe: Fever of 101 or Higher, Inability to urinate, Shortness of breath Allergies/Adverse Reactions: Allergies sulfamethoxazole Allergy (Mild, Verified 05/08/18 16:16) Unknown trimethoprim Allergy (Mild, Verified 05/08/18 16:16) Unknown Penicillins [PCN] Allergy (Verified 05/08/18 16:16) Unknown Medications to take at Discharge Multivitamin [Multiple Vitamins] 1 tab PO DAILY 09/23/16 Lorazepam [Ativan] 1 mg PO DAILY PRN 09/25/16 Fluticasone Propionate [Flonase Allergy Relief] 1 spray NARES DAILY #1 spray.susp 08/07/17 Benztropine [Cogentin] 1 mg PO TID 11/26/17 Albuterol Inhaler [Ventolin Hfa] 2 puff INHALATION Q6H PRN PRN 03/21/18 Lisinopril 20 mg PO DAILY 03/21/18 Naproxen [Naprosyn] 500 mg PO BID PRN #20 tab 04/16/18 Aspirin E.C. [Ecotrin] 325 mg PO DAILY@0800 05/02/18 Bupropion HCl [Bupropion Xl] 150 mg PO DAILY 05/02/18 Divalproex Sodium [Depakote] 500 mg PO TID 05/02/18 Fexofenadine HCl 180 mg PO DAILY 05/02/18 Fluticasone/Salmeterol [Advair 250-50 Diskus] 1 inh INHALATION BID 05/02/18 Metformin HCl [Glucophage] 500 mg PO DAILY 05/02/18 Risperidone Microspheres [Risperdal Consta] 50 mg IM .COMPLEX 05/02/18 Ciprofloxacin 0.3% [Ciloxan] 2.5 drp LEFT EAR BID #1 bottle 05/10/18 The following prescriptions were given: Ciprofloxacin 0.3% [Ciloxan] 2.5 drp LEFT EAR BID #1 bottle Primary Care Physician: Dhara Taylor DO [Primary Care Provider] - Within 2 Weeks Test Results: Test results from this visit will be discussed in further detail at your follow-up appointment, if applicable. Please Follow Up With: ENT - Left mastoiditis follow up. When: 1 month Proposed Discharge Date: 05/10/18 05/10/18 1244 <Electronically signed by Hemant Sow DO> Date Hemant Sow DO CC: Dhara Taylor DO BEDSIDE GLUCOSE Collected: 05/10/2018 Status: F Source: [place] 11:17 AM [facility] REPOSITORY TYPE CODE TESTS RESULT OUT OF RANGE REFERENCE UNITS LAB L501.080 70-110 mg/dL Normal BEDSIDE GLU 94 Result Comment: MANAGEMENT OF PATIENT CARE PER NURSING PROTOCOL Performed By: #### L501.080 #### [facility] Point of Care [address] [place] [address] BEDSIDE GLUCOSE Collected: 05/10/2018 Status: F Source: [place] 6:53 AM [facility] REPOSITORY TYPE CODE TESTS RESULT OUT OF RANGE REFERENCE UNITS LAB L501.080 70-110 mg/dL Normal BEDSIDE GLU 97 Result Comment: MANAGEMENT OF PATIENT CARE PER NURSING PROTOCOL Performed By: #### L501.080 #### [facility] Point of Care [address] [place] [address] BEDSIDE GLUCOSE Collected: 05/09/2018 Status: F Source: [place] 9:47 PM [facility] REPOSITORY TYPE CODE TESTS RESULT OUT OF REFERENCE UNITS RANGE LAB L501.080 70-110 mg/dL High BEDSIDE GLU 117 Result Comment: MANAGEMENT OF PATIENT CARE PER NURSING PROTOCOL Performed By: #### L501.080 #### [facility] Point of Care [address] [place] [address] ECHOCARDIOGRAM COMPLETE Observed: 05/09/2018 Status: F Source: [place] 5:36 PM [facility] REPOSITORY [facility] Cardiovascular Services [address] [place] [address] Echo Complete 05/09/18 1316 MR#: [id number] Acct: [id number] Name: AJIT GRIMALDO Rep #: [id number] : 1955 62 From: Ajit Benavidez MD Attending Dr: Marino Santos DO Status: ADM FRANCK Ordering Dr: Kristal Larsen Date: 05/08/18 Location: U Sex: M C Admitted: 05/08/18 Reason For Study: TIA/CVA Procedure This was a 2D Doppler, Color Flow transthoracic echocardiogram. The exam was of adequate technical quality. Exam performed portable in patient room. Left Ventricle Normal LV size. Mild concentric left ventricular hypertrophy. Left ventricular systolic function is normal. The estimated ejection fraction is 65 %. Diastolic function: considered indeterminate. No regional wall motion abnormalities noted. Right Ventricle Normal RV size. Normal systolic function. Atria Normal left atrium. The right atrium is mildly enlarged. No doppler evidence for ASD. Bubble contrast study negative for right to left interatrial shunt. Mitral Valve There is mild mitral annular calcification. Normal mitral valve. Trivial mitral valve insufficiency. Tricuspid Valve Normal tricuspid valve. Trivial tricuspid valve insufficiency. Aortic Valve Trisinus/trileaflet aortic valve. Mild focal aortic valve thickening. Mild focal aortic valve calcification. Pulmonic Valve The pulmonic valve is not well visualized. Great Vessels Normal sized aortic root. Pericardium/Pleural No pericardial effusion. Medication Performed a rapid injection of agitated mix of 9 cc saline and 1cc air to assess for atrial septal defect. MMode/2D Measurements AND Calculations LVIDd: 4.0 cm IVSd: 1.3 cm Ao root diam: 3.5 cm LVIDs: 2.3 cm LVPWd: 1.3 cm RVDd: 3.4 cm FS: 43.5 % LAV(MOD-bp): 49.8 ml LA A4 area: 14.7 cm2 RA A4 area: 18.8 cm2 LAV(MOD-bp) Indexed: 24.3 ml/m2 LAV(MOD-sp2): 57.9 ml LAV(MOD-sp4): 38.2 ml Doppler Measurements AND Calculations MV E max harjinder: 63.2 cm/sec Lat Peak E' Harjinder: 10.5 cm/sec Med Peak E' Harjinder: 6.7 cm/sec MV A max harjinder: 101.5 cm/sec E/E' lat: 6.0 E/E' med: 9.4 MV E/A: 0.62 Ao V2 max: 138.5 cm/sec LV V1 max: 102.9 cm/sec Ao max P.7 mmHg LV V1 max P.2 mmHg Interpretation Summary Left ventricular systolic function is normal. The estimated ejection fraction is 65 %. Mild concentric left ventricular hypertrophy. The right atrium is mildly enlarged. There is mild mitral annular calcification. Trivial mitral valve insufficiency. Trivial tricuspid valve insufficiency. Mild focal aortic valve thickening. Mild focal aortic valve calcification. Bubble contrast study negative for right to left interatrial shunt. Ordering Physician: Kristal Larsen Referring Physician: Dhara Taylor M.D. Performed By: Chtaa Dalal CLIFF 05/09/18 1733 Date Ajit Benavidez MD CC: Kristal Taylor DO; Marino Santos DO Date Dictated: 05/09/18 1316 Date Transcribed: 05/09/18 4977 Associate Web Developer: Signed BEDSIDE GLUCOSE Collected: 05/09/2018 Status: F Source: [place] 4:58 PM [facility] REPOSITORY TYPE CODE TESTS RESULT OUT OF RANGE REFERENCE UNITS LAB L501.080 70-110 mg/dL Normal BEDSIDE GLU 108 Result Comment: MANAGEMENT OF PATIENT CARE PER NURSING PROTOCOL Performed By: #### L501.080 #### [facility] Point of Care [address] [place] [address] AMMONIA Collected: 05/09/2018 Status: F Source: [place] 2:35 PM [facility] REPOSITORY TYPE CODE TESTS RESULT OUT OF REFERENCE UNITS RANGE LAB L503.5510 11-32 umol/L High AMMONIA 35.0 Performed By: #### L503.5510 #### [facility] [address] [place], [address] BEDSIDE GLUCOSE Collected: 05/09/2018 Status: F Source: [place] 12:05 PM [facility] REPOSITORY TYPE CODE TESTS RESULT OUT OF REFERENCE UNITS RANGE LAB L501.080 70-110 mg/dL High BEDSIDE GLU 129 Result Comment: MANAGEMENT OF PATIENT CARE PER NURSING PROTOCOL Performed By: #### L501.080 #### [facility] Point of Care [address] [place] [address] BEDSIDE GLUCOSE Collected: 05/09/2018 Status: F Source: [place] 6:39 AM [facility] REPOSITORY TYPE CODE TESTS RESULT OUT OF RANGE REFERENCE UNITS LAB L501.080 70-110 mg/dL Normal BEDSIDE GLU 87 Result Comment: MANAGEMENT OF PATIENT CARE PER NURSING PROTOCOL Performed By: #### L501.080 #### [facility] Point of Care [address] [place] [address] BASIC METABOLIC Collected: 05/09/2018 Status: F Source: [place] PROFILE (BMP) 5:28 AM [facility] REPOSITORY TYPE CODE TESTS RESULT OUT OF RANGE REFERENCE UNITS LAB L501.0100 74-106 mg/dL Normal GLU 78 Result Comment: Please note revised GLUCOSE reference range effective 2017. LAB L501.1000 7-18 mg/dL Normal BUN 18 LAB L501.1100 0.70-1.30 mg/dL Normal CREAT,SERUM 0.94 Result Comment: The validity of the calculated GFR AND GFRAA in patients over 70 years has not been determined. Clinical correlation is essential. LAB L501.1110 >60 mL/min Normal EST GFR 87 Result Comment: Non- GFR Calc LAB L501.1115 >60 mL/min Normal EST GFR - AA 105 Result Comment: GFR Calc LAB L501.1255 ml/min Normal Estimated CRCL 85.21 LAB L501.1300 10-20 RATIO Normal BUN/CRE 19.2 LAB L501.2200 8.5-10 mg/dL Normal .1 CA 8.6 LAB L501.5300 136-14 mmol/L Normal 5 NA 145 LAB L501.5600 3.5-5. mmol/L Normal 1 K 3.9 LAB L501.5900 98-107 mmol/L Normal CL 107 LAB L501.6100 21.0-3 mmol/L Normal 2.0 CO2 31.0 LAB L501.6200 5-15 Normal GAP 7 Performed By: #### L500.2500, L500.4100 #### [facility] [address] [facility]. [place], [place], [id number] LIPID PROFILE Collected: 05/09/2018 Status: F Source: [place] 5:28 AM [facility] REPOSITORY TYPE CODE TESTS RESULT OUT OF RANGE REFERENCE UNITS LAB L501.4900 200 mg/dL Normal CHOL 96 Result Comment: <200 mg/dL Desirable 200-240 mg/dL Borderline >240 mg/dL High Risk LAB L501.5000 mg/dL Normal TRIG 88 Result Comment: The drugs N-Acetylcysteine and Metamizole may falsely depress this assay. Serum Triglycerides Reference Interval Normal <150 mg/dL Borderline high 150 - 199 mg/dL High 200 - 499 mg/dL Very High > or = 500 mg/dL LAB L501.6400 mg/dL Low HDL 36 Result Comment: The drugs N-Acetylcysteine and Metamizole may falsely depress this assay. Reference Range HDL <40 mg/dL Low HDL Cholesterol HDL >or= 60 mg/dL High HDL Cholesterol LAB L501.6500 0-130 mg/dL Normal LDL 42 LAB L501.6600 5-40 mg/dL Normal VLDL 18 Performed By: #### L500.2500, L500.4100 #### [facility] [address] [facility]. [place], [place], [id number] VITAMIN B12 Collected: 05/08/2018 Status: F Source: [place] 11:03 PM [facility] REPOSITORY TYPE CODE TESTS RESULT OUT OF REFERENCE UNITS RANGE LAB L503.0105 211-911 pg/mL High Vitamin B12 941 Performed By: #### L503.0105 #### [facility] [address] [place], [address] AMMONIA Collected: 05/08/2018 Status: F Source: [place] 10:56 PM [facility] REPOSITORY TYPE CODE TESTS RESULT OUT OF REFERENCE UNITS RANGE LAB L503.5510 11-32 umol/L High AMMONIA 48.0 Performed By: #### L503.5510 #### [facility] [address] [place], [address] LIVER PROFILE Collected: 05/08/2018 Status: F Source: [place] 10:56 PM [facility] REPOSITORY TYPE CODE TESTS RESULT OUT OF RANGE REFERENCE UNITS LAB L501.1500 6.4-8.2 g/dL Low T PROT 5.8 LAB L501.1800 3.2-5.0 g/dL Normal ALB 3.2 LAB L501.1950 2.2-4.2 g/dL Normal GLOB 2.6 LAB L501.4100 15-37 U/L Normal AST 26 LAB L501.4305 45-117 U/L Normal ALK P 68 LAB L501.4405 16-61 U/L Normal ALT 19 LAB L501.4600 0.20-1.00 mg/dL Normal T BILI 0.80 LAB L501.4700 0.00-0.30 mg/dL Normal D BILI 0.24 Performed By: #### L500.3400, L501.5200, L506.0250 #### [facility] [address] [place], [address] MAGNESIUM Collected: 05/08/2018 Status: F Source: [place] 10:56 PM [facility] REPOSITORY TYPE CODE TESTS RESULT OUT OF RANGE REFERENCE UNITS LAB L501.5200 1.6-2.6 mg/dL Normal MG 1.9 Performed By: #### L500.3400, L501.5200, L506.0250 #### [facility] [address] [place], [address] FOLATES, (FOLIC ACID) Collected: 05/08/2018 Status: F Source: [place] 10:56 PM [facility] REPOSITORY TYPE CODE TESTS RESULT OUT OF RANGE REFERENCE UNITS LAB L506.0250 3.1-55.4 ng/mL Normal FOLATES 31.10 Performed By: #### L500.3400, L501.5200, L506.0250 #### [facility] [address] [place], [address] HEMOGLOBIN A1C Collected: 05/08/2018 Status: F Source: [place] 10:56 PM [facility] REPOSITORY TYPE CODE TESTS RESULT OUT OF RANGE REFERENCE UNITS LAB L501.9985 4.2-6.3 % Normal HGB A1C 5.2 Performed By: #### L501.9985 #### [facility] [address] [place], [address] BEDSIDE GLUCOSE Collected: 05/08/2018 Status: F Source: [place] 10:42 PM [facility] REPOSITORY TYPE CODE TESTS RESULT OUT OF REFERENCE UNITS RANGE LAB L501.080 70-110 mg/dL High BEDSIDE GLU 137 Result Comment: MANAGEMENT OF PATIENT CARE PER NURSING PROTOCOL Performed By: #### L501.080 #### [facility] Point of Care [address] [place] [address] BRAIN WITHOUT Observed: 05/08/2018 Status: F Source: [place] CONTRAST 10:30 PM [facility] REPOSITORY [facility] Imaging Services [address] [place] [address] Brain without Contrast MR#: [id number] Acct: [id number] Name: AJIT GRIMALDO Rep #: [id number] : 1955 M 62 From: Gaby Lizama MD PCP: Dhara Taylor DO Status: ADM FRANCK Study: Brain without Contrast Date of Exam: 05/09/18 Exam# [id number] Ordering Dr: Kristal Larsen STUDY: MRI BRAIN WITHOUT CONTRAST REASON FOR EXAM: Male, 62 years old. Increasing confusion over the last 3-4 weeks. TECHNIQUE: Standardized multiplanar fat and water weighted pulse sequences were obtained. COMPARISON: CT of the head dated May 08, 2018. FINDINGS: There is moderate cerebral atrophy with widening of the extra- axial spaces and ventricular dilatation. Normal white matter tracts of the supratentorial brain. There is no evidence for recent intracranial ischemia or other cause of cytotoxic edema on diffusion weighted imaging (DWI). Normal T2* images of the brain without demonstrated susceptibility artifact. There is no demonstrated hemosiderin stain. Normal bilateral basal ganglia. Normal thalami. There is no extra-axial fluid accumulation. Normal flow voids within the major intracranial circulation suggesting patency by spin echo criteria. Normal sella turcica, pituitary gland, infundibular stalk, optic chiasm and hypothalamus. Normal tectal plate and pineal gland. There are chronic white matter ischemic changes of the otoniel. The midbrain and medulla are otherwise normal. Normal cerebellum. Normal basal cisterns. 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 Normal bilateral internal auditory canals. No demonstrated orbital abnormality, within the constraints of a routine brain study. There is mild mucoperiosteal thickening within the maxillary and ethmoid sinuses. There is a small mucous retention cyst in the left maxillary sinus. Normal calvarium and skull base. Normal visualized soft tissue structures. Normal visualized upper cervical spine. MRI/Brain without Contrast IMPRESSION: 1. Involutional changes of the brain, as described above. 2. No MR evidence for acute infarct. 3. 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 Electronically Signed: Gaby Lizama MD at 9:35 EDT , Service support , CC: Kristal Larsen; Dhara Taylor DO Associate Web Developer: Signed MRA HEAD ONLY WITHOUT Observed: 05/08/2018 Status: F Source: [place] CONTRAST 10:30 PM [facility] REPOSITORY [facility] Imaging Services [facility] [place] [address] MRA Head ONLY without Contrast MR#: [id number] Acct: [id number] Name: AJIT GRIMALDO Rep #: [id number] : 1955 M 62 From: Gaby Lizama MD PCP: Dhara Taylor DO Status: ADM FRANCK Study: MRA Head ONLY without Contrast Date of Exam: 05/09/18 Exam# [id number] Ordering Dr: Kristal Larsen STUDY: MRA OF THE HEAD WITHOUT CONTRAST REASON FOR EXAM: Male, 62 years old. Increasing confusion over the last 3-4 months. TECHNIQUE: 3-D qufw-[id number] (TOF) imaging was performed with MIPs. The study was performed unenhanced. Multiple images are limited by patient motion. COMPARISON: MRI of the brain dated May 09, 2018. FINDINGS: Normal bilateral petrous carotid arteries. Normal right cavernous carotid artery with a normal supraclinoid bifurcation. Normal left cavernous carotid artery with a normal supraclinoid bifurcation. There is hypoplastic development of the right A1 segment of the anterior cerebral arteries with an atretic but intact artery. Normal left A1 segments of the anterior cerebral artery. Normal intact anterior communicating artery (ACOM). There is limited visualization of the right A2 segment possibly related to motion artifact. There is limited visualization of the middle cerebral arteries secondary to motion artifact and significant stenoses cannot be excluded. There is a persistent origin of the right posterior cerebral artery with absence of the P1 segment of the right posterior cerebral artery. There is non-visualization of the left posterior communicating artery (PCOM). Normal bilateral vertebral arteries. Normal basilar artery with a normal basilar bifurcation. The visualized bilateral superior cerebellar (SCA) arteries are normal. Normal bilateral P1, P2 and visualized P3 segments of the posterior cerebral arteries. There are moderately severe involutional changes of the brain. MRI/MRA Head ONLY without Contrast IMPRESSION: Technically limited MRA due to patient motion. Electronically Signed: Gaby Lizama MD at 10:12 EDT , Service support , CC: Kristal Taylor DO Associate Web Developer: Signed MRA NECK WITHOUT Observed: 05/08/2018 Status: F Source: [place] CONTRAST 10:30 PM [facility] REPOSITORY [facility] Imaging Services [address] [place] [address] MRA Neck without Contrast MR#: [id number] Acct: [id number] Name: AJIT GRIMALDO Rep #: [id number] : 1955 M 62 From: Gaby Lizama MD PCP: Dhara Taylor DO Status: ADM FRANCK Study: MRA Neck without Contrast Date of Exam: 05/09/18 Exam# [id number] Ordering Dr: Kristal Larsen STUDY: MRA NECK WITHOUT CONTRAST REASON FOR EXAM: Male, 62 years old. Increasing confusion over the last 3-4 weeks. TECHNIQUE: Source images were obtained, MIPs were performed. The study was performed unenhanced. Multiple images are limited by patient motion. COMPARISON: None. FINDINGS: RIGHT CAROTID ARTERIES: The origin of the right common carotid artery is not imaged on this study. There is mild atherosclerotic plaque formation with minimal narrowing of the right carotid bulb. There is mild atherosclerotic plaque formation of the origin of the right internal carotid artery with less than 50% cross sectional diameter stenosis. Normal visualized cervical portion of the right internal carotid artery. Normal origin of the right external carotid artery (ECA). LEFT CAROTID ARTERIES: The origin of the left common carotid artery is not imaged on this study. There is mild atherosclerotic plaque formation with minimal narrowing of the left carotid bulb. There is mild atherosclerotic plaque formation of the origin of the left internal carotid artery with less than 50% cross sectional diameter stenosis. Normal visualized cervical portion of the left internal carotid artery. Normal origin of the left external carotid artery (ECA). VERTEBRAL ARTERIES: Normal antegrade flow within the bilateral vertebral artery without a hemodynamically significant stenosis. MRI/MRA Neck without Contrast IMPRESSION: Technically limited MR age due to patient motion without definite hemodynamically significant stenosis. Electronically Signed: Gaby Lizama MD at 10:25 EDT , Service support , CC: Kristal Larsen; Dhara Taylor DO Associate Web Developer: Signed HISTORY AND PHYSICAL Observed: 05/08/2018 Status: F Source: [place] EXAM 9:40 PM [facility] REPOSITORY [facility] Medical Records Department [address] [place] [address] History and Physical 05/08/182104 MR#: [id number] Acct: [id number] Name: AJIT GRIMALDO Rep #: [id number] : 1955 62 From: Kristal Larsen PCP: Dhara Taylor DO Status: REG ER Y Location: ED Problem List (1) TIA (transient ischemic attack) Status: Acute (2) Schizophrenia Status: Chronic Qualifiers: Schizophrenia type: unspecified Qualified Code(s): F20.9 - Schizophrenia, unspecified (3) COPD (chronic obstructive pulmonary disease) Status: Chronic Qualifiers: COPD type: unspecified COPD Qualified Code(s): J44.9 - Chronic obstructive pulmonary disease, unspecified (4) Right-sided heart failure Status: Chronic Qualifiers: Heart failure chronicity: chronic Qualified Code(s): I50.812 - Chronic right heart failure (5) Type II diabetes mellitus Status: Chronic Qualifiers: Diabetes mellitus detention insulin use: without oil heaterman use Diabetes mellitus complication status: without complication Qualified Code(s): E11.9 - Type 2 diabetes mellitus without complications (6) Bilateral leg edema Status: Chronic History of Present Illness Date of Admission: 05/08/18 Chief Complaint: Worsened confusion The patient is a 62 y/o M, Living in [facility] w/ PMHx: Schizophrenia w/ Prior Suicide Attempts, Tobacco use, Chronic COPD, Diabetes mellitus type II, CHF Unclear Type, PVD [...] be performed who now re-presents to [facility] on 05/08/18 with confusion and noted auditory hallucinations with long-term confirmed taking his schizophrenia medications, failure to [...] Problems): Chronic Problems Venous ulcer of left lower extremity without varicose veins (Chronic) Schizophrenia (Chronic) COPD (chronic obstructive pulmonary disease) (Chronic) Right-sided heart failure (Chronic) Type II diabetes mellitus (Chronic) Bilateral leg edema (Chronic) Allergies sulfamethoxazole Allergy (Mild, Verified 05/08/18 16:16) Unknown trimethoprim Allergy (Mild, Verified 05/08/18 16:16) Unknown Penicillins [PCN] Allergy (Verified 05/08/18 16:16) Unknown Home Medications: Ambulatory Orders Medication Instructions Recorded Multivitamin [Multiple Vitamins] 1 tab PO DAILY 09/23/16 Surgical History: tonsillectomy, - - Debridement of left foot ulcer and anterior borja ulcer. Psychiatric History: Anxiety, Depression, Prior suicide attempt, Schizophrenia Lives: [facility] Smoking Status: Current every day smoker Tobacco Use: Cigarettes Alcohol: None Drugs: None - *Family History Maternal History Items: Heart Disease Paternal History Items: Diabetes Sibling History Items: Hypertension Review of Systems Constitutional: Denies: Chills, Fever, Weight Change HEENT: Denies: Head Aches, Sinus Congestion, Sinus Drainage Cardiovascular: Denies: Chest Pain, Palpitations Respiratory: Denies: Cough, Shortness of breath at rest, Sputum production Gastrointestinal: Denies: Abdominal Pain, Nausea, Vomiting Genitourinary: Denies: Dysuria Musculoskeletal: Denies: Joint Pain, Joint Tenderness Skin: Reports: Skin Changes, Wounds. Denies: Rash Neurological: Denies: Numbness, Tingling, Focal weakness Psychiatric: Reports: Anxiety, Depression. Denies: Homicidal Ideations, Suicidal Ideations Hematologic/ Lymphatic: Denies: Easy Bruising, Easy Bleeding VTE Information - Inpt Only VTE Present on Admission: No VTE Mechan Device Prophylaxis: SCD's VTE Pharm Prophylaxis ordered?: Yes Subjective: Seated upright in the ED bed, NAD, talking but not marked sensical, almost flight of ideas. Objective: Physical Examination: General: awake, alert, oriented to self, not date, place, recent events, remains cooperative, seated upright in bed in no apparent distress. Skin: normal color, turgor, no icterus, cyanosis, healing small L anterior borja venous stasis ulcer, scab present, BL LE chronic venous stasis skin changes. HEENT: AT/NC, EOMI, PERRLA, mildly dry MM, no carotid bruits or JVD noted. Lungs: Diminished BS BL bases, mild end expiratory wheeze, moderate effort. Heart: regular rate and rhythm; no gallop, rub audible. Abdomen: soft, NTTP, ND, normal BS, no HSM. Extremities: no cyanosis, clubbing, see skin, BL LE chronic venous stasis skin changes. Neurological: patient awake, alert, not oriented; cognitive function not baseline intact; pupils equally reactive to light and accomodation; cranial nerves II-XII grossly normal, moving all 4 extremities, no focal deficits, strength preserved, FTN, HTN intact, negative babinski. Psychiatric: affect appears mildly flat, talkative, no acute evidence of depressive or anxiety feelings. - Physical Exam Vital Signs Temp Pulse Resp BP Pulse Ox 97.5 F L 68 18 144/84 H 99 05/08/18 16:13 05/08/18 20:30 05/08/18 20:30 05/08/18 20:30 05/08/18 20:30 Oxygen Delivery Method Room Air Weight: 180 lb Body Mass Index (BMI) 25.8 Finger Stick Blood Glucose 74 Laboratory Tests Past 24 Hrs WBC 6.7 RBC 4.07 L Hgb 12.2 L Hct 37.2 L WBC RBC Hgb Hct MCV MCH MCHC RDW POC Glucose POC Glucose 74 Assessment/Plan All Active Problems Ulcer of left borja with fat layer exposed (Resolved) TIA (transient ischemic attack) (Acute) Cellulitis and abscess of leg (Acute) The patient is a 62 y/o M, Living in [facility] w/ PMHx: Schizophrenia w/ Prior Suicide Attempts, Tobacco use, Chronic COPD, Diabetes mellitus type II, CHF Unclear Type, PVD w/ chronic BL LE lymphedema, LLE Venous Stasis Ulcer [facility] who [facility] ED on 05/08/18 with confusion and noted auditory hallucinations with assisted confirmed taking his schizophrenia medications, [...] Schizophrenia w/ Prior Suicide Attempts: Appropriate Depakote level, continue Risperdal IM complex, Depakote, bupropion, Cogentin, Ativan. Complicates presentation. If MRI unremarkable, will need to have more thorough evaluation per Psychiatry. (3) Chronic COPD: ATC duonebs, PRN albuterol, HOB, IS parameters. (4) Diabetes mellitus type II: Hold oral home regimen, ADA diet, accu checks w/ ISS, HgBA1c pending. (5) Tobacco Abuse: Encouraged cessation, inpatient consultation per RT, NR if desired. (6) PVD w/ chronic BL LE lymphedema, LLE Venous Stasis Ulcer (healed): [facility], encourage continued compression stockings (7) Diastolic CHF: No recent ECHO noted, even during prior admission April, possibly secondary to refusal, pending ECHO, maintain on asa, plavix added as noted, added statin, not on BB, continue lisinopril. (8) DVT prophylaxis: TEDs, SCD, Lovenox. Code Visit OBSV E AND M: 18734 Initial observation care L3 05/08/180 <Electronically signed by Kristal Larsen > Date Kristal Larsen Cosigner Signature: Date (if applicable) CC: Kristal Larsen; Dhara Taylor DO Signed EMERGENCY DEPARTMENT Observed: 05/08/2018 Status: F Source: [place] SUMMARY 9:29 PM [facility] REPOSITORY [facility] Medical Records Department [address] [place] [address] Emergency Department Summary 05/08/18 1748 MR#: [id number] Acct: [id number] Name: AJIT GRIMALDO Rep #: [id number] : 1955 62 From: Petrona Rios MD PCP: Dhara Taylor DO Status: REG ER - ER Visit Summary Date of Service: 05/08/18 Chief Complaint: Confusion History of Present Illness: The patient is a 62 M presenting with intermittent confusion. His staff member from his long-term states that he has been confused intermittently since April 16. He was admitted at that time for TIA workup. During that admission patient refused MRI. He was seen again in the ED on May 02 for continued intermittent confusion. He refused MRI during the ED stay as well. Today long-term discussed with his primary care physician Dr. Taylor who feels the patient needs an MRI according to long-term staff and the patient. The patient is now agreeable to MRI. He was advised to come to the ED for further evaluation. assisted staff states that he has been having difficulty with remembering how to do tasks. Physical Examination: Vitals are stable. Patient is afebrile. Alert no acute distress. HEENT exam is unremarkable. Neck is supple. Lungs are clear and equal bilaterally. Heart is regular rate and rhythm. Abdomen is soft nontender nondistended. Extremities are unremarkable. Skin is warm and dry. No focal neurologic deficit. NIH 0 Remainder of exam is unremarkable. Emergency Department Course and Treatment: EKG sinus rate of 67 with no acute ischemic changes. CBC is unremarkable, chemistries unremarkable. Troponin is negative. INR 1.2. Urinalysis unremarkable. Depakote level 85, alcohol negative. Chest x-ray shows no acute process. CT head shows no acute process. Patient is agreeable to MRI. Discussed with the hospitalist for admission. Disposition: Admission Impression: Altered mental status, TIA This note was generated with SupportLocal dictation software. It may contain incorrect words, spelling, and punctuation that were not noted in review of the chart prior to signing ED Disposition - Plan for ED Patient: Chief Complaint: Confusion Referrals: Dhara Taylor, DO [Primary Care Provider] - What to do if you have Problems For any increased pain, shortness of breath, bleeding, nausea or vomiting, chest pain, or any unexpected problems, contact your Primary Care Provider. Call [facility] ([phone]) or report to the closest Emergency Room. Call 911 if necessary. 05/08/182128 <Electronically signed by Petrona Rios MD> Date Petrona Rios MD Cosigner Signature (If Indicated): Date CC: Dhara Taylor DO BEDSIDE GLUCOSE Collected: 05/08/2018 Status: F Source: [place] 6:17 PM [facility] REPOSITORY TYPE CODE TESTS RESULT OUT OF RANGE REFERENCE UNITS LAB L501.080 70-110 mg/dL Normal BEDSIDE GLU 74 Result Comment: MANAGEMENT OF PATIENT CARE PER NURSING PROTOCOL Performed By: #### L501.080 #### [facility] Point of Care [address] [place] [address] URINE DRUG SCREEN Collected: 05/08/2018 Status: F Source: [place] (VISTA) 6:11 PM [facility] REPOSITORY TYPE CODE TESTS RESULT OUT OF RANGE REFERENCE UNITS LAB L505.0075 TO BE Normal CONFIRMED Result Comment: CONFIRMATORY TESTING FOR ALL POSITIVE URINE DRUG SCREEN RESULTS WILL ONLY BE SENT OUT UPON PHYSICIAN ORDER. VISTA Urine Drug Screen methods provide only preliminary analytical test results. A more specific alternate chemical method must be used in order to obtain a confirmed analytical result. Gas chromatography/mass spectrometery (GC/MS) is the preferred confirmatory method. Clinical consideration and professional judgement should be applied to any drug of abuse test result, particularly when preliminary positive results are used. URINE TCA TESTING MUST BE ORDERED SEPARATELY. USE TEST MNEMONIC: [facility] LAB L505.5005 VISTA UDS PH 5 Normal LAB L505.5015 <1000 ng/mL AMPHETAMINES Normal NEGATIVE LAB L505.5025 < 200 ng/mL BARBITIURATES Normal NEGATIVE LAB L505.5035 < 200 ng/mL BENZODIAZIPINE Normal NEGATIVE LAB L505.5045 < 300 ng/mL COCAINE Normal NEGATIVE LAB L505.5055 < 500 High ng/mL ECSTACY POSITIVE LAB L505.5065 < 300 ng/mL METHADONE Normal NEGATIVE LAB L505.5075 < 300 ng/mL OPIATES Normal NEGATIVE LAB L505.5085 < 25 ng/mL PCP Normal NEGATIVE LAB L505.5095 < 50 ng/mL THC Normal NEGATIVE Performed By: #### L505.5000 #### [facility] [address] [place], [address] URINALYSIS, COMPLETE Collected: 05/08/2018 Status: F Source: [place] 6:11 PM [facility] REPOSITORY Order Comment: Order Date: 05/08/18 How was Urine Obtained? CLEAN CATCH TYPE CODE TESTS RESULT OUT OF RANGE REFERENCE UNITS LAB L400.3000 Yellow COLOR Normal Yellow LAB L400.3050 Clear Normal CLARITY Clear LAB L400.3200 Normal mg/dl Normal GLUCOSE, UR Normal LAB L400.3300 Negative mg/dL Normal BILIRUBIN URINE Negative LAB L400.3400 Negative mg/dl Normal KETONE UR Negative LAB L400.3465 1.002-1.030 Normal SP.GR. DIPSTX 1.015 LAB L400.3550 5.0 - 8.0 pH UR Normal 6.0 LAB L400.3600 Negative mg/dl PROT Normal DIPSTX Negative LAB L400.3700 Normal mg/dl Normal UROBILI Normal LAB L400.3750 Negative Normal NITRITE UR Negative LAB L400.3780 Negative /ul Normal OCCULT BLOOD-UR Negative LAB L400.3800 Negative /ul LEUK Normal ESTERASE Negative LAB L400.4050 0-5 /hpf WBC 0 Normal SEEN LAB L400.4100 0-5 /hpf 0 Normal RBC-UA SEEN LAB L400.4150 0-5 /hpf SQUAM 0 Normal EPI SEEN LAB L400.4300 None Seen /hpf 0 Normal BACTERIA SEEN LAB L400.4350 <or=2+ /hpf 0 Normal MUCUS, URINE SEEN Performed By: #### L400.0001 #### [facility] [address] [place], [address] CBC W/DIFF, AUTOMATED Collected: 05/08/2018 Status: F Source: [place] 5:56 PM [facility] REPOSITORY TYPE CODE TESTS RESULT OUT OF RANGE REFERENCE UNITS LAB L100.1000 4.4-11.0 K/mm3 Normal WBC 6.7 LAB L100.1200 4.6-6.2 M/mm3 Low RBC 4.07 LAB L100.1300 13.0-16.5 g/dl Low HGB 12.2 LAB L100.1400 40-54 % Low HCT 37.2 LAB L100.1500 80-94 fL Normal MCV 91.4 LAB L100.1600 27.0-32.0 pg Normal MCH 30.0 LAB L100.1700 32-36 g/gl Normal MCHC 32.8 LAB L100.1810 11.6-14.6 % Normal RDW CV 13.5 LAB L100.1820 35.1-43.9 fl High RDW SD 44.4 LAB L100.1900 150-450 K/mm3 Normal PLT 181 LAB L100.2000 6.2-12.0 fl Normal MPV 10.1 LAB L100.2100 47-70 % Normal NEUT% 58.1 LAB L100.2200 19-41 % Normal LY% 27.2 LAB L100.2300 0-10 % High MONO% 11.4 LAB L100.2400 0-5 % Normal EO% 2.4 LAB L100.2500 0-1 % Normal BASO% 0.6 LAB L100.2550 0.0-0.9 % Normal IM GRAN % 0.300 Result Comment: IG% - Immature Granulocytes (promyelocytes, myelocytes and metamyelocytes) > 1% indicates that a LEFT SHIFT is Present. LAB L100.2620 2.0-7.7 X10 3/uL Normal Absolute Neut 3.9 LAB L100.2720 0.83-4.51 X10 3/ul Normal Absolute Lymph 1.81 Performed By: #### L100.0100 #### [facility] [address] [place], [address] PROTHROMBIN TIME W/INR Collected: 05/08/2018 Status: F Source: [place] 5:56 PM [facility] REPOSITORY TYPE CODE TESTS RESULT OUT OF RANGE REFERENCE UNITS LAB L300.4150 11.7-14.9 SECONDS High PROTIME 15.4 LAB L300.4200 Normal INR 1.2 Performed By: #### L300.3900, L300.4310 #### [facility] [address] [place], [address] PARTIAL THROMBOPLAST Collected: 05/08/2018 Status: F Source: [place] TIME 5:56 PM [facility] REPOSITORY TYPE CODE TESTS RESULT OUT OF RANGE REFERENCE UNITS LAB L300.4310 24.1-36.2 Seconds Normal PTT 30.4 Performed By: #### L300.3900, L300.4310 #### [facility] [address] [place], [place], [id number] VALPROIC ACID Collected: 05/08/2018 Status: F Source: [place] (DEPAKENE) LEVEL 5:56 PM [facility] REPOSITORY TYPE CODE TESTS RESULT OUT OF RANGE REFERENCE UNITS LAB L501.8100 50-100 ug/mL Normal VALPROIC ACID 85 Performed By: #### L501.8100, L501.9100 #### [facility] [address] [place], [address] ALCOHOL, BLOOD Collected: 05/08/2018 Status: F Source: [place] (MEDICAL)-SERUM 5:56 PM [facility] REPOSITORY TYPE CODE TESTS RESULT OUT OF RANGE REFERENCE UNITS LAB L501.9100 mg/dL Normal SERUM 5.0 ETOH Result Comment: The serum:whole blood ethanol ratio is approximately 1.14 and varies slightly with hematocrit. Medical Alcohol reference interval and critical value in non-tolerant individuals; 50 - 100 Impairment 100 Intoxication 100 - 250 Severe Poisoning 250 - 400 Deep/possible fatal coma Performed By: #### L501.8100, L501.9100 #### [facility] [address] [place], [place], [id number] BASIC METABOLIC Collected: 05/08/2018 Status: F Source: [place] PROFILE (BMP) 5:56 PM [facility] REPOSITORY TYPE CODE TESTS RESULT OUT OF RANGE REFERENCE UNITS LAB L501.0100 74-106 mg/dL Normal GLU 79 Result Comment: Please note revised GLUCOSE reference range effective 2017. LAB L501.1000 7-18 mg/dL High BUN 20 LAB L501.1100 0.70-1.30 mg/dL Normal CREAT,SERUM 1.11 Result Comment: The validity of the calculated GFR AND GFRAA in patients over 70 years has not been determined. Clinical correlation is essential. LAB L501.1110 >60 mL/min Normal EST GFR 72 Result Comment: Non- GFR Calc LAB L501.1115 >60 mL/min Normal EST GFR - AA 87 Result Comment: GFR Calc LAB L501.1255 ml/min Normal Estimated CRCL 72.16 LAB L501.1300 10-20 RATIO Normal BUN/CRE 18.0 LAB L501.2200 8.5-10 mg/dL Normal .1 CA 8.7 LAB L501.5300 136-14 mmol/L Normal 5 NA 141 LAB L501.5600 3.5-5. mmol/L Normal 1 K 4.2 LAB L501.5900 98-107 mmol/L Normal CL 106 LAB L501.6100 21.0-3 mmol/L Normal 2.0 CO2 32.0 LAB L501.6200 5-15 Low GAP 3 Performed By: #### L500.2500, L501.4010 #### [facility] [address] [place], [address] TROPONIN-I Collected: 05/08/2018 Status: F Source: [place] 5:56 PM [facility] REPOSITORY TYPE CODE TESTS RESULT OUT OF RANGE REFERENCE UNITS LAB L501.4010 <0.045 ng/mL Normal < 0.015 TROPONIN-I Result Comment: TROPONIN-I EXPECTED VALUES <0.045 Negative 0.045 - 0.590 Consistent with Cardiac Damage > OR = 0.600 Critical Value Not every elevated troponin is indicative of MT. These values should be used with clinical judgement in examining the patient's clinical picture for diagnosis. To establish a diagnosis of MT versus myocardial injury, there must be a demonstrated rise and/or fall in the troponin values, in addition to ischemic symptoms, EKG changes, new regional wall motion abnormality, and/or angiographical evidence. PLEASE NOTE: REFERENCE RANGES EDITED 18 Performed By: #### L500.2500, L501.4010 #### [facility] [address] [facility] [place], [address] BRAIN/HEAD WITHOUT Observed: 05/08/2018 Status: F Source: [place] CONTRAST 5:42 PM [facility] REPOSITORY [facility] Imaging Services [address] [place] [address] Brain/Head without Contrast MR#: [id number] Acct: [id number] Name: AJIT GRIMALDO Rep #: [id number] : 1955 62 From: Lorne Augustine MD PCP: Dhara Taylor DO Status: REG ER Study: Brain/Head without Contrast Date of Exam: 05/08/18 Exam# [id number] Ordering Dr: Petrona Rios MD STUDY: CT BRAIN WITHOUT CONTRAST REASON FOR EXAM: Male, 62 years old. Confusion RADIATION DOSAGE (If Supplied By Facility): CTDIvol = ( 44.99 ) mGy, DLP = ( 863.60 ) mGycm TECHNIQUE: Transaxial CT imaging of [...] ischemic infarction. There is mild maxillary sinus disease. CT/Brain/Head without Contrast IMPRESSION: Normal unenhanced CT scan of the brain. Electronically Signed: Lorne Augustine MD at 18:37 EDT , Service support , CC: Petrona Rios MD; Dhara Taylor DO Associate Web Developer: Signed CHEST 1 VIEW Observed: 05/08/2018 Status: F Source: [place] 5:42 PM [facility] REPOSITORY [facility] Imaging Services [address] [place] [address] Chest 1 View MR#: [id number] Acct: [id number] Name: AJIT GRIMALDO Rep #: [id number] : 1955 M 62 From: Lorne Augustine MD PCP: Dhara Taylor DO Status: REG ER Study: Chest 1 View Date of Exam: 05/08/18 Exam# [id number] Ordering Dr: Petrona Rios MD STUDY: X-RAY CHEST REASON FOR EXAM: Male, 62 years old. SOB / SOA TECHNIQUE: Single frontal view of the chest. COMPARISON: April 16, 2018 FINDINGS: Chronic appearing increased interstitial lung markings. There is no demonstrated pleural abnormality. Normal [...] are no acute findings. Electronically Signed: Lorne Augustine MD at 18:42 EDT , Service support , CC: Petrona Rios MD; Dhara Taylor DO Associate Web Developer: Signed 12 LEAD ELECTROCARDIOGRAM Observed: 05/06/2018 Status: F Source: [place] 2:30 PM [facility] REPOSITORY [facility] Cardiovascular Services [address] [place] [address] 12 Lead EKG 05/02/18 1555 MR#: [id number] Acct: [id number] Name: AJIT GRIMALDO Rep #: [id number] : 1955 62 From: Ajit Benavidez MD Attending Dr: Status: DEP ER Ordering Dr: Gabriela Barrett MD Date: 05/02/18 Location: ED Sex: M C Admitted: Test Reason : CONFUSION Blood Pressure : / mmHG Vent. Rate : 079 BPM Atrial Rate : 079 BPM P-R Int : 146 ms QRS Dur : 084 ms QT Int : 366 ms P-R-T Axes : 079 066 078 degrees QTc Int : 419 ms Normal sinus rhythm Normal ECG Confirmed by PRAMOD ALSTON, AJIT ([id number]), commercial production editor DANNA LIZAMA ([id number]) on 05/06/2018 2:29:59 PM Referred By: VAISHALI Confirmed By:AJIT BENAVIDEZ MD 05/06/18 1430 Date Ajit Benavidez MD CC: Gabriela Barrett MD; Dhara Taylor DO Signed EMERGENCY DEPARTMENT Observed: 05/03/2018 Status: F Source: [place] SUMMARY 12:28 AM [facility] REPOSITORY [facility] Medical Records Department [address] [place] [address] Emergency Department Summary 05/02/18 1648 MR#: [id number] Acct: [id number] Name: AJIT GRIMALDO Rep #: [id number] : 1955 62 From: Gabriela Barrett MD PCP: Dhara Taylor DO Status: DEP ER - ER Visit Summary Date of Service: 05/02/18 Chief Complaint: Altered mental status History of Present Illness: The patient is a 62 M who had a follow-up appointment Dr. Taylor today due to recent possible TIA. The patient reportedly was more confused with some tangential thinking. He has a history of schizophrenia but his current presentation is not typical of his psychosis. assisted staff member describes confusion with normal tasks and he had slurred speech earlier. Patient is currently confused, he does not know the month or president. He talks about prior alien invasions and encounters. Staff member states that he thought there was someone else sitting in the room with them just shortly before my evaluation. Past history significant for TIA, CHF, COPD, diabetes, schizophrenia, hepatitis C. Physical Examination: Vital signs unremarkable. Patient sitting upright in bed. He is alert and talkative, but with tangential thinking. Head and neck examination was no trauma. Heart is regular rate and rhythm. Lung sounds are clear. Abdomen is soft nontender. Neuro exam reveals normal strength and sensation throughout. He is confused and does not know the month or year. Test Results: EKG is sinus at 79 with no sign of acute ischemia. CT head shows no acute pathology. CBC reveals normal white count. Hemoglobin 11.6. Chemistry studies normal. LFTs normal. Urinalysis negative. Valproic acid is therapeutic at 63. Tox screen is positive for MDMA. Emergency Department Course and Treatment: Patient was given IV fluids. I did [...] the week. Patient was monitored at the long-term over the weekend. I did speak with Dr. Carter to update her on the patient's findings and plan as the patient was sent in by Dr. Taylor. Treatment Plan: [] Disposition: Discharge Impression: 1. Reported slurred speech, resolved 2. Schizoaffective disorder This note was generated with SupportLocal dictation software. It may contain incorrect words, [...] your Primary Care Provider. Call [facility] ([phone]) or report to the closest Emergency Room. Call 911 if necessary. 05/03/18 0028 <Electronically signed by Gabriela Barrett MD> Date aGbriela Barrett MD Cosigner Signature (If Indicated): Date CC: Dhara Taylor DO DISCHARGE INSTRUCTION Observed: 05/02/2018 Status: F Source: [place] 10:37 PM [facility] REPOSITORY [facility] Medical Records Department [address] [place] [address] Discharge Instruction 05/02/182233 MR#: [id number] Acct: [id number] Name: AJIT GRIMALDO Rep #: [id number] : 1955 62 From: Gabriela Barrett MD PCP: Dhara Taylor DO Status: REG ER ED Disposition - Plan for ED Patient: Disposition: Home or Assisted Living Chief Complaint: Alt LOC Instructions: ED Transient Ischemic Attack, ED Confusion Referrals: Dhara Taylor DO [Primary Care Provider] - Counseling,Center [GROUP OF PHYSICIANS] - As soon as possible What to do if you have Problems For any increased pain, shortness of breath, bleeding, nausea or vomiting, chest pain, or any unexpected problems, contact your Primary Care Provider. Call [facility] ([phone]) or report to the closest Emergency Room. Call 911 if necessary. 05/02/182236 <Electronically signed by Gabriela Barrett MD> Date Gabriela Gomez Signature (If Indicated): Date CC: Dhara Taylor DO URINE DRUG SCREEN Collected: 05/02/2018 Status: F Source: [place] (VISTA) 5:00 PM [facility] REPOSITORY Order Comment: Order Date: 05/02/18 TYPE CODE TESTS RESULT OUT OF RANGE REFERENCE UNITS LAB L505.0075 TO BE Normal CONFIRMED Result Comment: CONFIRMATORY TESTING FOR ALL POSITIVE URINE DRUG SCREEN RESULTS WILL ONLY BE SENT OUT UPON PHYSICIAN ORDER. VISTA Urine Drug Screen methods provide only preliminary analytical test results. A more specific alternate chemical method must be used in order to obtain a confirmed analytical result. Gas chromatography/mass spectrometery (GC/MS) is the preferred confirmatory method. Clinical consideration and professional judgement should be applied to any drug of abuse test result, particularly when preliminary positive results are used. URINE TCA TESTING MUST BE ORDERED SEPARATELY. USE TEST MNEMONIC: [facility] LAB L505.5005 VISTA UDS PH 6 Normal LAB L505.5015 <1000 ng/mL AMPHETAMINES Normal NEGATIVE LAB L505.5025 < 200 ng/mL BARBITIURATES Normal NEGATIVE LAB L505.5035 < 200 ng/mL BENZODIAZIPINE Normal NEGATIVE LAB L505.5045 < 300 ng/mL COCAINE Normal NEGATIVE LAB L505.5055 < 500 High ng/mL ECSTACY POSITIVE LAB L505.5065 < 300 ng/mL METHADONE Normal NEGATIVE LAB L505.5075 < 300 ng/mL OPIATES Normal NEGATIVE LAB L505.5085 < 25 ng/mL PCP Normal NEGATIVE LAB L505.5095 < 50 ng/mL THC Normal NEGATIVE Performed By: #### L505.5000 #### [facility] [address] [place], [address] URINALYSIS, COMPLETE Collected: 05/02/2018 Status: F Source: [place] 5:00 PM [facility] REPOSITORY Order Comment: Order Date: 05/02/18 How was Urine Obtained? CLEAN CATCH TYPE CODE TESTS RESULT OUT OF RANGE REFERENCE UNITS LAB L400.3000 Yellow COLOR Normal Yellow LAB L400.3050 Clear Normal CLARITY Clear LAB L400.3200 Normal mg/dl Normal GLUCOSE, UR Normal LAB L400.3300 Negative mg/dL Normal BILIRUBIN URINE Negative LAB L400.3400 Negative mg/dl High 5 KETONE UR LAB L400.3465 1.002-1.030 Normal SP.GR. DIPSTX 1.015 LAB L400.3550 5.0 - 8.0 pH UR Normal 6.5 LAB L400.3600 Negative mg/dl High PROT 15 DIPSTX LAB L400.3700 Normal mg/dl High 4 UROBILI LAB L400.3750 Negative Normal NITRITE UR Negative LAB L400.3780 Negative /ul Normal OCCULT BLOOD-UR Negative LAB L400.3800 Negative /ul High LEUK 25 ESTERASE LAB L400.4050 0-5 /hpf WBC Normal 0-5 SEEN LAB L400.4100 0-5 /hpf 0 Normal RBC-UA SEEN LAB L400.4150 0-5 /hpf SQUAM 0 Normal EPI SEEN LAB L400.4300 None Seen /hpf 0 Normal BACTERIA SEEN LAB L400.4350 <or=2+ /hpf 0 Normal MUCUS, URINE SEEN Performed By: #### L400.0001 #### [facility] [address] [place], [place], [address] CBC W/DIFF, AUTOMATED Collected: 05/02/2018 Status: F Source: [place] 5:00 PM [facility] REPOSITORY TYPE CODE TESTS RESULT OUT OF RANGE REFERENCE UNITS LAB L100.1000 4.4-11.0 K/mm3 Normal WBC 6.1 LAB L100.1200 4.6-6.2 M/mm3 Low RBC 3.90 LAB L100.1300 13.0-16.5 g/dl Low HGB 11.6 LAB L100.1400 40-54 % Low HCT 35.4 LAB L100.1500 80-94 fL Normal MCV 90.8 LAB L100.1600 27.0-32.0 pg Normal MCH 29.7 LAB L100.1700 32-36 g/gl Normal MCHC 32.8 LAB L100.1810 11.6-14.6 % Normal RDW CV 13.4 LAB L100.1820 35.1-43.9 fl High RDW SD 44.2 LAB L100.1900 150-450 K/mm3 Normal PLT 177 LAB L100.2000 6.2-12.0 fl Normal MPV 10.5 LAB L100.2100 47-70 % Normal NEUT% 63.7 LAB L100.2200 19-41 % Normal LY% 24.1 LAB L100.2300 0-10 % Normal MONO% 9.1 LAB L100.2400 0-5 % Normal EO% 2.4 LAB L100.2500 0-1 % Normal BASO% 0.5 LAB L100.2550 0.0-0.9 % Normal IM GRAN % 0.200 Result Comment: IG% - Immature Granulocytes (promyelocytes, myelocytes and metamyelocytes) > 1% indicates that a LEFT SHIFT is Present. LAB L100.2620 2.0-7.7 X10 3/uL Normal Absolute Neut 3.9 LAB L100.2720 0.83-4.51 X10 3/ul Normal Absolute Lymph 1.48 Performed By: #### L100.0100 #### [facility] [address] [facility]. [place], [place], [address] ALCOHOL, BLOOD Collected: 05/02/2018 Status: F Source: [place] (MEDICAL)-SERUM 5:00 PM [facility] REPOSITORY TYPE CODE TESTS RESULT OUT OF RANGE REFERENCE UNITS LAB L501.9100 mg/dL Normal SERUM 10.0 ETOH Result Comment: The serum:whole blood ethanol ratio is approximately 1.14 and varies slightly with hematocrit. Medical Alcohol reference interval and critical value in non-tolerant individuals; 50 - 100 Impairment 100 Intoxication 100 - 250 Severe Poisoning 250 - 400 Deep/possible fatal coma Performed By: #### L501.9100 #### [facility] [address] [place], [place], [address] BASIC METABOLIC Collected: 05/02/2018 Status: F Source: [place] PROFILE (BMP) 5:00 PM [facility] REPOSITORY TYPE CODE TESTS RESULT OUT OF RANGE REFERENCE UNITS LAB L501.0100 74-106 mg/dL High GLU 138 Result Comment: Fasting Glucose result greater than or equal to 126 mg/dL suggests DIABETES MELLITUS per A.D.A. criteria. Please note revised GLUCOSE reference range effective 2017. LAB L501.1000 7-18 mg/dL High BUN 22 LAB L501.1100 0.70-1.30 mg/dL Normal CREAT,SERUM 1.01 Result Comment: The validity of the calculated GFR AND GFRAA in patients over 70 years has not been determined. Clinical correlation is essential. LAB L501.1110 >60 mL/min Normal EST GFR 80 Result Comment: Non- GFR Calc LAB L501.1115 >60 mL/min Normal EST GFR - AA 96 Result Comment: GFR Calc LAB L501.1255 ml/min Normal Estimated CRCL 79.30 LAB L501.1300 10-20 RATIO High BUN/CRE 21.8 LAB L501.2200 8.5-10 mg/dL Normal .1 CA 8.5 LAB L501.5300 136-14 mmol/L Normal 5 NA 142 LAB L501.5600 3.5-5. mmol/L Normal 1 K 4.1 LAB L501.5900 98-107 mmol/L Normal CL 107 LAB L501.6100 21.0-3 mmol/L Normal 2.0 CO2 30.0 LAB L501.6200 5-15 Normal GAP 5 Performed By: #### L500.2500, L500.3400, L501.4010 #### [facility] [address] [place], [address] LIVER PROFILE Collected: 05/02/2018 Status: F Source: [place] 5:00 PM [facility] REPOSITORY TYPE CODE TESTS RESULT OUT OF RANGE REFERENCE UNITS LAB L501.1500 6.4-8.2 g/dL Low T PROT 5.9 LAB L501.1800 3.2-5.0 g/dL Normal ALB 3.3 LAB L501.1950 2.2-4.2 g/dL Normal GLOB 2.6 LAB L501.4100 15-37 U/L Normal AST 15 LAB L501.4305 45-117 U/L Normal ALK P 71 LAB L501.4405 16-61 U/L Low ALT 15 LAB L501.4600 0.20-1.00 mg/dL Normal T BILI 0.40 LAB L501.4700 0.00-0.30 mg/dL Normal D BILI 0.14 Performed By: #### L500.2500, L500.3400, L501.4010 #### [facility] [address] [place], [address] TROPONIN-I Collected: 05/02/2018 Status: F Source: [place] 5:00 PM [facility] REPOSITORY TYPE CODE TESTS RESULT OUT OF RANGE REFERENCE UNITS LAB L501.4010 <0.045 ng/mL Normal < 0.015 TROPONIN-I Result Comment: TROPONIN-I EXPECTED VALUES <0.045 Negative 0.045 - 0.590 Consistent with Cardiac Damage > OR = 0.600 Critical Value Not every elevated troponin is indicative of MT. These values should be used with clinical judgement in examining the patient's clinical picture for diagnosis. To establish a diagnosis of MT versus myocardial injury, there must be a demonstrated rise and/or fall in the troponin values, in addition to ischemic symptoms, EKG changes, new regional wall motion abnormality, and/or angiographical evidence. PLEASE NOTE: REFERENCE RANGES EDITED 18 Performed By: #### L500.2500, L500.3400, L501.4010 #### [facility] [address] [place], [address] VALPROIC ACID Collected: 05/02/2018 Status: F Source: [place] (DEPAKENE) LEVEL 4:43 PM [facility] REPOSITORY TYPE CODE TESTS RESULT OUT OF RANGE REFERENCE UNITS LAB L501.8100 50-100 ug/mL Normal VALPROIC ACID 63 Performed By: #### L501.8100 #### [facility] [address] [place], [address] BRAIN/HEAD WITHOUT Observed: 05/02/2018 Status: F Source: [place] CONTRAST 4:43 PM [facility] REPOSITORY [facility] Imaging Services [address] [place] [address] Brain/Head without Contrast MR#: [id number] Acct: [id number] Name: AJIT GRIMALDO Rep #: [id number] : 1955 M 62 From: Edenilson Hernandez MD PCP: Dhara Taylor DO Status: REG ER Study: Brain/Head without Contrast Date of Exam: 05/02/18 Exam# [id number] Ordering Dr: Gabriela Barrett MD STUDY: CT BRAIN WITHOUT CONTRAST REASON FOR EXAM: Male, 62 years old. Confusion. RADIATION DOSAGE (If Supplied By Facility): CTDIvol = ( 44.99 ) mGy, DLP = ( 812.98 ) mGycm TECHNIQUE: Transaxial CT imaging of the brain was performed without administration of intravenous contrast material. Individualized dose optimization techniques were used for this CT. COMPARISON: Noncontrast CT brain April 16, 2018 FINDINGS: Normal soft tissue structures. Normal calvarium. Incidental note of incomplete ossification of the posterior C1 neural arch. There is borderline cerebral atrophy with slight widening of the extra-axial [...] Faustino Hernandez MD at 17:35 EDT , Service support , CC: Gabriela Barrett MD; Dhara Taylor DO Associate Web Developer: Signed 12 LEAD ELECTROCARDIOGRAM Observed: 04/22/2018 Status: F Source: [place] 2:41 PM [facility] REPOSITORY [facility] Cardiovascular Services [address] [place] [address] 12 Lead EKG 04/16/18 1636 MR#: [id number] Acct: [id number] Name: AJIT GRIMALDO Rep #: [id number] : 1955 62 From: Moises Richard MD Attending Dr: Marino Santos DO Status: DIS FRANCK Ordering Dr: Petrona Rios MD Date: 04/16/18 Location: [facility] Sex: M C Admitted: 04/16/18 Test Reason : NERUO Blood Pressure : / mmHG Vent. Rate : 077 BPM Atrial Rate : 077 BPM P-R Int : 148 ms QRS Dur : 086 ms QT Int : 380 ms P-R-T Axes : 075 054 069 degrees QTc Int : 430 ms Normal sinus rhythm Normal ECG Confirmed by MOISES RICHARD MD ([id number]), commercial production editor DANNA LIZAMA ([id number]) on 04/22/2018 2:40:45 PM Referred By: EDI Confirmed By:MOISES RICHARD MD 04/22/18 1440 Date Moises Richard MD CC: Petrona Rios MD; Dhara Taylor DO; Marino Santos DO Signed DISCHARGE SUMMARY Observed: 04/17/2018 Status: F Source: [place] 3:51 PM [facility] REPOSITORY [facility] Medical Records Department [address] [place] [address] Discharge Summary 04/17/18 1547 MR#: [id number] Acct: [id number] Name: AJIT GRIMALDO Rep #: [id number] : 1955 62 From: Marino Santos DO PCP: Dhara Taylor DO Status: DIS FRANCK Y [id number] Discharge Date and Diagnosis Date of Admission: 04/16/18 Date of Discharge: 04/17/18 - Primary Discharge Diagnosis #1 slurred aemefd-tjkddutmv-ggtqfcbg unclear #2 schizophrenia #3 type 2 diabetes #4 chronic obstructive pulmonary disease - Secondary Discharge Diagnosis Chronic Problems Ulcer of left borja with fat layer exposed (Chronic) Venous ulcer of left lower extremity without varicose veins (Chronic) Schizophrenia (Chronic) COPD (chronic obstructive pulmonary disease) (Chronic) Right-sided heart failure (Chronic) Type II diabetes mellitus (Chronic) Bilateral leg edema (Chronic) Hospital Course and Treatment Operations: None, - - Debridement Procedures: None Summary of Care Provided: The patient is a 62 year old M seen in the emergency room at [facility] after being sent in from a long-term at which she resides due to a sudden onset of slurred speech. Evaluation in the emergency room found the patient's NIH stroke scale to be 0, workup in the emergency room included a head CT which showed no acute process, BUN was 23, hemoglobin was 12.9. Patient was placed and observation status on PCU, patient was observed on telemetry, the following morning, patient refused to have an MRI of the brain as well as an MRA of the head and neck performed, it was felt he was stable for discharge back to the long-term. The exact cause of the episode of slurred speech was unknown. On 04/17/18, patient was seen and examined and felt to be in stable condition for discharge back to his long-term Discharge Activity: Return to Normal Activity Weight Bearing Status: Full weight bearing Home Medications: Medications to take at Discharge Fluticasone/Salmeterol [Advair 500/50 Mcg Diskus] 1 puff INHALATION BID 02/12/15 Metformin HCl [Glucophage] 500 mg PO TID 02/12/15 Multivitamin [Multiple Vitamins] 1 tab PO DAILY 09/23/16 Lorazepam [Ativan] 1 mg PO DAILY PRN 09/25/16 Divalproex Sodium [Depakote] 500 mg PO DAILY 03/30/17 Risperidone Microspheres [Risperdal Consta] 50 mg IM QMONTH 03/30/17 Fluticasone Propionate [Flonase Allergy Relief] 1 spray NARES DAILY #1 spray.susp 08/07/17 Benztropine [Cogentin] 1 mg PO TID 11/26/17 Albuterol Inhaler [Ventolin Hfa] 2 puff INHALATION Q6H PRN PRN 03/21/18 Doxycycline Hyclate 100 mg PO BID 03/21/18 Lisinopril 20 mg PO DAILY 03/21/18 Buspar 04/16/18 Naproxen [Naprosyn] 500 mg PO BID PRN #20 tab 04/16/18 Primary Care Physician: Dhara Taylor DO [Primary Care Provider] - Please follow up with your Primary Care Physician in: in 1- 2 weeks Disposition: Home Minutes spent on discharge:: 25 Patient Condition:: Stable Medical Necessity - Tobacco Use Smoking Status: Current every day smoker Meaningful Use Info Meaningful Use Diagnoses (Choose all that apply): None applicable Code Visit OBSV E AND M: 12704 Observation care discharge 04/17/18 1861 <Electronically signed by Marino Santos DO> Date Marino Santos DO Cosigner Signature (if applicable): Date CC: Dhara Taylor DO; Marino Santos DO Signed DISCHARGE INSTRUCTION Observed: 04/17/2018 Status: F Source: [place] 9:53 AM [facility] REPOSITORY [facility] Medical Records Department [address] [place] [address] Instructions for Home/Discharge Instructions 04/17/18 0952 MR#: [id number] Acct: [id number] Name: AJIT GRIMALDO Rep #: [id number] : 1955 62 From: Marino Santos DO PCP: Dhara Taylor DO Status: ADM FRANCK - Discharge Diagnoses Current Active Problems: Current Active and Chronic Problems TIA (transient ischemic attack) (Acute) You will use the following diet at home:: No restrictions Your food should be the consistency of: Regular Your liquids should be the consistency of: Regular/Thin Discharge Activity: Return to Normal Activity Weight Bearing Status: Full weight bearing Allergies/Adverse Reactions: Allergies sulfamethoxazole Allergy (Mild, Verified 03/18/18 17:12) Unknown trimethoprim Allergy (Mild, Verified 03/18/18 17:12) Unknown Penicillins [PCN] Allergy (Verified 03/21/18 20:36) Unknown Medications to take at Discharge Fluticasone/Salmeterol [Advair 500/50 Mcg Diskus] 1 puff INHALATION BID 02/12/15 Metformin HCl [Glucophage] 500 mg PO TID 02/12/15 Multivitamin [Multiple Vitamins] 1 tab PO DAILY 09/23/16 Lorazepam [Ativan] 1 mg PO DAILY PRN 09/25/16 Divalproex Sodium [Depakote] 500 mg PO DAILY 03/30/17 Risperidone Microspheres [Risperdal Consta] 50 mg IM QMONTH 03/30/17 Fluticasone Propionate [Flonase Allergy Relief] 1 spray NARES DAILY #1 spray.susp 08/07/17 Benztropine [Cogentin] 1 mg PO TID 11/26/17 Albuterol Inhaler [Ventolin Hfa] 2 puff INHALATION Q6H PRN PRN 03/21/18 Doxycycline Hyclate 100 mg PO BID 03/21/18 Lisinopril 20 mg PO DAILY 03/21/18 Buspar 04/16/18 Naproxen [Naprosyn] 500 mg PO BID PRN #20 tab 04/16/18 Primary Care Physician: Dhara Taylor DO [Primary Care Provider] - Please follow up with your Primary Care Physician in: in 1- 2 weeks Test Results: Test results from this visit will be discussed in further detail at your follow-up appointment, if applicable. 04/17/18 0953 <Electronically signed by Marino Santos DO> Date Marino Santos DO CC: Dhara Taylor DO BEDSIDE GLUCOSE Collected: 04/17/2018 Status: F Source: [place] 6:52 AM [facility] REPOSITORY TYPE CODE TESTS RESULT OUT OF RANGE REFERENCE UNITS LAB L501.080 70-110 mg/dL Normal BEDSIDE GLU 98 Result Comment: MANAGEMENT OF PATIENT CARE PER NURSING PROTOCOL Performed By: #### L501.080 #### [facility] Point of Care [facility] [place] [address] LIPID PROFILE Collected: 04/17/2018 Status: F Source: [place] 6:52 AM [facility] REPOSITORY TYPE CODE TESTS RESULT OUT OF RANGE REFERENCE UNITS LAB L501.4900 200 mg/dL Normal CHOL 114 Result Comment: <200 mg/dL Desirable 200-240 mg/dL Borderline >240 mg/dL High Risk LAB L501.5000 mg/dL Normal TRIG 107 Result Comment: The drugs N-Acetylcysteine and Metamizole may falsely depress this assay. Serum Triglycerides Reference Interval Normal <150 mg/dL Borderline high 150 - 199 mg/dL High 200 - 499 mg/dL Very High > or = 500 mg/dL LAB L501.6400 mg/dL Normal HDL 40 Result Comment: The drugs N-Acetylcysteine and Metamizole may falsely depress this assay. Reference Range HDL <40 mg/dL Low HDL Cholesterol HDL >or= 60 mg/dL High HDL Cholesterol LAB L501.6500 0-130 mg/dL Normal LDL 53 LAB L501.6600 5-40 mg/dL Normal VLDL 21 Performed By: #### L500.4100 #### [facility] [address] [place], [address] HISTORY AND PHYSICAL Observed: 04/16/2018 Status: F Source: [place] EXAM 11:52 PM [facility] REPOSITORY [facility] Medical Records Department [address] [place] [address] History and Physical 04/16/18 1854 MR#: [id number] Acct: [id number] Name: AJIT GRIMALDO Rep #: [id number] : 1955 62 From: Samuel Cervantes MD PCP: Dhara Taylor DO Status: ADM FRANCK Y Location: [place] [address] Problem List (1) TIA (transient ischemic attack) Status: Acute History of Present Illness Date of Admission: 04/16/18 Chief Complaint: slurred speech The patient is a 62 year old M with a significant history of COPD, schizophrenia, diabetes who was sent from a long-term because of slurred speech. He presented to the ED more than 4 hours since his symptoms started. His blood glucose was noted to be normal at the time of his symptoms. His symptoms improved and resolved whiles at emergency department. CAT scan of his head was unremarkable. Of importance this presentation is his second presentation at the ED on the same day. With his first presentation he had 1 week history of left arm pain and he was discharged on ibuprofen. Past Medical History Past Medical History (Chronic Problems): Chronic Problems Ulcer of left borja with fat layer exposed (Chronic) Venous ulcer of left lower extremity without varicose veins (Chronic) Schizophrenia (Chronic) COPD (chronic obstructive pulmonary disease) (Chronic) Right-sided heart failure (Chronic) Type II diabetes mellitus (Chronic) Bilateral leg edema (Chronic) Allergies sulfamethoxazole Allergy (Mild, Verified 03/18/18 17:12) Unknown trimethoprim Allergy (Mild, Verified 03/18/18 17:12) Unknown Penicillins [PCN] Allergy (Verified 03/21/18 20:36) Unknown Home Medications: Ambulatory Orders Medication Instructions Recorded Fluticasone/Salmeterol [Advair 1 puff INHALATION BID 02/12/15 500/50 Mcg Diskus] Metformin HCl [Glucophage] 500 mg PO TID 02/12/15 Multivitamin [Multiple Vitamins] 1 tab PO DAILY 09/23/16 Surgical History: tonsillectomy, - - Debridement of left foot ulcer Smoking Status: Current every day smoker - *Family History Maternal History Items: Heart Disease Paternal History Items: Diabetes Sibling History Items: Hypertension Review of Systems Constitutional: Denies: Chills, Fever, Weight Change HEENT: Denies: Head Aches, Sinus Congestion, Sinus Drainage Cardiovascular: Denies: Chest Pain, Palpitations Respiratory: Denies: Cough, Shortness of breath at rest, Sputum production Gastrointestinal: Denies: Abdominal Pain, Nausea, Vomiting Genitourinary: Denies: Dysuria Musculoskeletal: Denies: Joint Pain, Joint Tenderness Skin: Denies: Rash, Wounds Neurological: Denies: Numbness, Tingling, Focal weakness Psychiatric: Denies: Anxiety, Depression, Homicidal Ideations, Suicidal Ideations Hematologic/ Lymphatic: Denies: Easy Bruising, Easy Bleeding VTE Information - Inpt Only VTE Present on Admission: No VTE Mechan Device Prophylaxis: None VTE Pharm Prophylaxis ordered?: Yes Patient Problems: Active and Suspected Problems TIA (transient ischemic attack) (Acute) - Physical Exam General: Alert, - - Oriented to place. Not oriented to time. HEENT: Atraumatic Neck: Supple, No JVD, Negative Carotid Bruits Lungs: Wheezes Cardiovascular: Regular rate, No murmurs Abdomen: Bowel Sounds Present, Soft, Non Tender Extremities: No edema, Capillary Refill Less than 3 Seconds Skin: No rashes, No breakdown Musculoskeletal: No Tenderness to Palpation of Joints or Extremities Neurological: Cranial nerves II-XII grossly intact Psych/Mental Status: - - Some confused conversations Vital Signs Temp Pulse Resp BP Pulse Ox 98.3 F 76 16 149/81 H 97 04/16/18 15:50 04/16/18 18:00 04/16/18 18:00 04/16/18 18:00 04/16/18 18:00 Assessment/Plan All Active Problems Left arm pain (Acute) TIA (transient ischemic attack) (Acute) Cellulitis and abscess of leg (Acute) The patient is a 62 year old M with a significant history of HTN, COPD, schizophrenia, diabetes who was sent from a long-term because of slurred speech which resolved whiles at the emergency department. Probable Transient ischemic attack. CT head unremarkable MRI/MRA without contrast of brain and head ordered MRI/MRA of neck with and without contrast ordered Frequent stroke assessment with NIH scale. Aspirin 325 1 Aspirin 81 mg daily High intensity statin ordered PT/OT/ST therapy. Telemetry monitoring Passed dysphagia diet. okay to start regular food. Maintain permissive hypertension. Treat if systolic blood pressure more than 220/120 COPD Scheduled Nella Chambers ordered. On home profile As needed albuterol Tobacco abuse NicoDerm patch. HTN Permissive hypertension as above. Lisinopril on unverified home medication. Will not order at this time. Schizophrenia He may be on some home medications for schizophrenia.However this could not be ordered because it could not be verified. Moreover will avoid any sedative medications that would confound his present condition. Miscellaneous: Home medication not verified because patient is unable to provide appropriate information. Unable to reach emergency contact printer dry film. Case management consult. DVT prophylaxis subcutaneous heparin. Code Visit Inpatient E AND M: 27682 Init Hosp L2 04/16/18 2271 <Electronically signed by Samuel Cervantes MD> Date Samuel Cervantes MD Cosigner Signature: Date (if applicable) CC: Samuel Cervantes MD; Dhara Taylor DO Signed BEDSIDE GLUCOSE Collected: 04/16/2018 Status: F Source: [place] 9:55 PM [facility] TYPE CODE TESTS RESULT OUT OF RANGE REFERENCE UNITS LAB L501.080 70-110 mg/dL Normal BEDSIDE GLU 80 Result Comment: MANAGEMENT OF PATIENT CARE PER NURSING PROTOCOL Performed By: #### L501.080 #### [facility] Point of Care [address] [facility] [place] [address] TROPONIN-I Collected: 04/16/2018 Status: F Source: [place] 7:27 PM [facility] REPOSITORY TYPE CODE TESTS RESULT OUT OF RANGE REFERENCE UNITS LAB L501.4010 <0.045 ng/mL Normal < 0.015 TROPONIN-I Result Comment: TROPONIN-I EXPECTED VALUES <0.045 Negative 0.045 - 0.590 Consistent with Cardiac Damage > OR = 0.600 Critical Value Not every elevated troponin is indicative of MT. These values should be used with clinical judgement in examining the patient's clinical picture for diagnosis. To establish a diagnosis of MT versus myocardial injury, there must be a demonstrated rise and/or fall in the troponin values, in addition to ischemic symptoms, EKG changes, new regional wall motion abnormality, and/or angiographical evidence. PLEASE NOTE: REFERENCE RANGES EDITED 18 Performed By: #### L501.4010 #### [facility] [address] [facility] [place], [address] ALCOHOL, BLOOD Collected: 04/16/2018 Status: F Source: [place] (MEDICAL)-SERUM 7:27 PM [facility] REPOSITORY TYPE CODE TESTS RESULT OUT OF RANGE REFERENCE UNITS LAB L501.9100 mg/dL Normal SERUM < 3.0 ETOH Result Comment: The serum:whole blood ethanol ratio is approximately 1.14 and varies slightly with hematocrit. Medical Alcohol reference interval and critical value in non-tolerant individuals; 50 - 100 Impairment 100 Intoxication 100 - 250 Severe Poisoning 250 - 400 Deep/possible fatal coma Performed By: #### L501.9100 #### [facility] [address] [place], [address] EMERGENCY DEPARTMENT Observed: 04/16/2018 Status: F Source: [place] SUMMARY 6:37 PM [facility] REPOSITORY [facility] Medical Records Department [address] [place] [address] Emergency Department Summary 04/16/18 1631 MR#: [id number] Acct: [id number] Name: AJIT GRIMALDO Rep #: [id number] : 1955 62 From: Petrona Rios MD PCP: Dhara Taylor DO Status: ADM FRANCK - ER Visit Summary Date of Service: 04/16/18 Chief Complaint: Slurred speech History of Present Illness: The patient is a 62 M presenting with sudden onset of slurred speech. This started around 2 PM. Patient lives in a long-term. His blood sugar was checked and was 120. He had no other complaints at the time. This morning he was seen in the emergency department for left arm pain. This was treated with ibuprofen. On arrival to the ED, his symptoms are starting to improve. Physical Examination: Vitals are stable. Patient is afebrile. Alert no acute distress. HEENT exam is unremarkable. Neck is supple. Lungs are clear and equal bilaterally. Heart is regular rate and rhythm. Abdomen is soft nontender nondistended. Extremities are unremarkable. Skin is warm and dry. No focal neurologic deficit. NIH 0 Remainder of exam is unremarkable. Emergency Department Course and Treatment: EKG is sinus rate is 77. Chest x-ray shows no acute process. CT head shows no acute process. CBC shows hemoglobin 12.9. Chemistries show BUN 23. INR 1.1. Troponin is negative. On reevaluation, NIH continues to be 0. Discussed with the hospitalist for admission. Disposition: Admission Impression: TIA This note was generated with SupportLocal dictation software. It may contain incorrect words, spelling, and punctuation that were not noted in review of the chart prior to signing ED Disposition - Plan for ED Patient: Chief Complaint: Neuro S/Sx What to do if you have Problems For any increased pain, shortness of breath, bleeding, nausea or vomiting, chest pain, or any unexpected problems, contact your Primary Care Provider. Call [facility] ([phone]) or report to the closest Emergency Room. Call 911 if necessary. 04/16/18 6145 <Electronically signed by Petrona Rios MD> Date Petrona Rios MD Cosigner Signature (If Indicated): Date CC: Dhara Taylor DO CHEST 1 VIEW Observed: 04/16/2018 Status: F Source: [facility] 4:23 PM [facility] Imaging Services [address] [place] [address] Chest 1 View MR#: [id number] Acct: [id number] Name: AJIT GRIMALDO Rep #: [id number] : 1955 M 62 From: Jackson Conde DO PCP: Dhara Taylor DO Status: PRE ER Study: Chest 1 View Date of Exam: 04/16/18 Exam# [id number] Ordering Dr: Petrona Rios MD STUDY: X-RAY CHEST REASON FOR EXAM: Male, 62 years old. Confusion. TECHNIQUE: Single AP portable view of the chest. COMPARISON: April 21, 2015. FINDINGS: Telemetry wires overlie the chest. The lungs are mildly hyperexpanded. There is no new [...] the upper abdomen. RAD/Chest 1 View IMPRESSION: No acute cardiopulmonary disease or interval change. Electronically Signed: Jackson Conde DO at 16:55 EDT Tel [phone], Service support , CC: Petrona Rios MD; Dhara Taylor DO Associate Web Developer: Signed BRAIN/HEAD WITHOUT Observed: 04/16/2018 Status: F Source: [place] CONTRAST 4:23 PM [facility] REPOSITORY [facility] Imaging Services [address] [place] [address] Brain/Head without Contrast MR#: [id number] Acct: [id number] Name: AJIT GRIMALDO Rep #: [id number] : 1955 M 62 From: Jackson Conde DO PCP: Dhara Taylor DO Status: REG ER Study: Brain/Head without Contrast Date of Exam: 04/16/18 Exam# [id number] Ordering Dr: Petrona Rios MD STUDY: CT BRAIN WITHOUT CONTRAST REASON FOR EXAM: Male, 62 years old. Slurred speech. Weakness. History of bipolar disease, schizophrenia and alcohol abuse. RADIATION DOSAGE (If Supplied By Facility): CTDIvol = ( 44.99 ) mGy, DLP = ( 812.98 ) mGycm TECHNIQUE: Transaxial CT imaging of the brain was performed without administration of intravenous contrast material. Individualized dose optimization techniques were used for this CT. COMPARISON: None. [...] Jackson Conde DO at 17:16 EDT Tel [phone], Service support , CC: Petrona Rios MD; Dhara Taylor DO Associate Web Developer: Signed CBC W/DIFF, AUTOMATED Collected: 04/16/2018 Status: F Source: [place] 4:20 PM [facility] REPOSITORY TYPE CODE TESTS RESULT OUT OF RANGE REFERENCE UNITS LAB L100.1000 4.4-11.0 K/mm3 Normal WBC 6.7 LAB L100.1200 4.6-6.2 M/mm3 Low RBC 4.25 LAB L100.1300 13.0-16.5 g/dl Low HGB 12.9 LAB L100.1400 40-54 % Low HCT 38.7 LAB L100.1500 80-94 fL Normal MCV 91.1 LAB L100.1600 27.0-32.0 pg Normal MCH 30.4 LAB L100.1700 32-36 g/gl Normal MCHC 33.3 LAB L100.1810 11.6-14.6 % Normal RDW CV 13.1 LAB L100.1820 35.1-43.9 fl Normal RDW SD 43.0 LAB L100.1900 150-450 K/mm3 Normal PLT 185 LAB L100.2000 6.2-12.0 fl Normal MPV 10.8 LAB L100.2100 47-70 % Normal NEUT% 64.0 LAB L100.2200 19-41 % Normal LY% 22.2 LAB L100.2300 0-10 % Normal MONO% 9.7 LAB L100.2400 0-5 % Normal EO% 3.3 LAB L100.2500 0-1 % Normal BASO% 0.4 LAB L100.2550 0.0-0.9 % Normal IM GRAN % 0.400 Result Comment: IG% - Immature Granulocytes (promyelocytes, myelocytes and metamyelocytes) > 1% indicates that a LEFT SHIFT is Present. LAB L100.2620 2.0-7.7 X10 3/uL Normal Absolute Neut 4.3 LAB L100.2720 0.83-4.51 X10 3/ul Normal Absolute Lymph 1.48 Performed By: #### L100.0100 #### [facility] [address] [place], [address] BASIC METABOLIC Collected: 04/16/2018 Status: F Source: [place] PROFILE (BMP) 4:20 PM [facility] REPOSITORY TYPE CODE TESTS RESULT OUT OF RANGE REFERENCE UNITS LAB L501.0100 74-106 mg/dL Normal GLU 86 Result Comment: Please note revised GLUCOSE reference range effective 2017. LAB L501.1000 7-18 mg/dL High BUN 23 LAB L501.1100 0.70-1.30 mg/dL Normal CREAT,SERUM 1.21 Result Comment: The validity of the calculated GFR AND GFRAA in patients over 70 years has not been determined. Clinical correlation is essential. LAB L501.1110 >60 mL/min Normal EST GFR 65 Result Comment: Non- GFR Calc LAB L501.1115 >60 mL/min Normal EST GFR - AA 78 Result Comment: GFR Calc LAB L501.1255 ml/min Normal Estimated CRCL 66.20 LAB L501.1300 10-20 RATIO Normal BUN/CRE 19.0 LAB L501.2200 8.5-10 mg/dL Normal .1 CA 8.7 LAB L501.5300 136-14 mmol/L Normal 5 NA 142 LAB L501.5600 3.5-5. mmol/L Normal 1 K 4.1 LAB L501.5900 98-107 mmol/L Normal CL 107 LAB L501.6100 21.0-3 mmol/L Normal 2.0 CO2 28.0 LAB L501.6200 5-15 Normal GAP 7 Performed By: #### L500.2500, L501.4010 #### [facility] [address] [facility]. [place], [place], [id number] TROPONIN-I Collected: 04/16/2018 Status: F Source: [place] 4:20 PM [facility] REPOSITORY TYPE CODE TESTS RESULT OUT OF RANGE REFERENCE UNITS LAB L501.4010 <0.045 ng/mL Normal < 0.015 TROPONIN-I Result Comment: TROPONIN-I EXPECTED VALUES <0.045 Negative 0.045 - 0.590 Consistent with Cardiac Damage > OR = 0.600 Critical Value Not every elevated troponin is indicative of MT. These values should be used with clinical judgement in examining the patient's clinical picture for diagnosis. To establish a diagnosis of MT versus myocardial injury, there must be a demonstrated rise and/or fall in the troponin values, in addition to ischemic symptoms, EKG changes, new regional wall motion abnormality, and/or angiographical evidence. PLEASE NOTE: REFERENCE RANGES EDITED 18 Performed By: #### L500.2500, L501.4010 #### [facility] [address] [place], [address] PROTHROMBIN TIME W/INR Collected: 04/16/2018 Status: F Source: [place] 4:20 PM [facility] REPOSITORY TYPE CODE TESTS RESULT OUT OF RANGE REFERENCE UNITS LAB L300.4150 11.7-14.9 SECONDS Normal PROTIME 14.4 LAB L300.4200 Normal INR 1.1 Performed By: #### L300.3900, L300.4310 #### [facility] [address] [facility] [address] [facility] [address] PARTIAL THROMBOPLAST Collected: 04/16/2018 Status: F Source: [place] TIME 4:20 PM [facility] REPOSITORY TYPE CODE TESTS RESULT OUT OF RANGE REFERENCE UNITS LAB L300.4310 24.1-36.2 Seconds Normal PTT 30.6 Performed By: #### L300.3900, L300.4310 #### [facility] [address] [facility]. [facility] [address] BEDSIDE GLUCOSE Collected: 04/16/2018 Status: F Source: [place] 4:11 PM [facility] REPOSITORY TYPE CODE TESTS RESULT OUT OF RANGE REFERENCE UNITS LAB L501.080 70-110 mg/dL Normal BEDSIDE GLU 84 Result Comment: MANAGEMENT OF PATIENT CARE PER NURSING PROTOCOL Performed By: #### L501.080 #### [facility] Point of Care [address] [facility] [place] [place] [address] EMERGENCY DEPARTMENT Observed: 04/16/2018 Status: F Source: [place] SUMMARY 7:17 AM [facility] REPOSITORY [facility] Medical Records Department [address] [place] [address] Emergency Department Summary 04/16/18 0514 MR#: [id number] Acct: [id number] Name: AJIT GRIMALDO Sera Rep #: [id number] : 1955 62 From: Quentin Winkler MD PCP: Dhara Taylor DO Status: DEP ER - ER Visit Summary Date of Service: 04/16/18 Chief Complaint: Left arm pain History of Present Illness: The patient is a 62 M presenting for evaluation secondary left arm pain. Patient has a underlying history of living in a long-term and has schizophrenia that is reasonably controlled. Patient states that he has had one week of pain in his left arm. He reports that this is atraumatic, and has been a continuous type pain. Patient reports that it seems to be somewhat worse with movement. 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 Patient reports that due to that fact that is why he came to the emergency department for evaluation. He denies that there is any sort of chest pain shortness of breath lightheadedness nausea or vomiting. He does have a history of congestive heart failure COPD and diabetes. Review of systems otherwise negative. Physical Examination: Vital signs within normal limits other than hypertension 178/107. Well-nourished male no acute distress. Head normocephalic. Neck is nontender with full range of motion no reproducible pain with palpation of the neck or with axial loading of the neck. Patient has no reproducible pain with palpation of the shoulder arm and [...] of Naprosyn, he was given first dose in the ER will be discharged with a course of this. Disposition: Discharge Impression: 1. Left arm pain This note was generated with SupportLocal dictation software. It may contain incorrect words, spelling, and punctuation that were not noted in review of the chart prior to signing ED Disposition - Plan for ED Patient: Disposition: Home or Assisted Living Chief Complaint: Upper Extremity Injury Diagnosis: Left arm pain Instructions: ED Muscle Aching Prescriptions: Naproxen [Naprosyn] 500 mg PO BID PRN #20 tab Referrals: Dhara Taylor, [Primary Care Provider] - 10-14 Days if not better What to do if you have Problems For any increased pain, shortness of breath, bleeding, nausea or vomiting, chest pain, or any unexpected problems, contact your Primary Care Provider. Call [facility] ([phone]) or report to the closest Emergency Room. Call 911 if necessary. 04/16/18 0717 <Electronically signed by Quentin Winkler MD> Date Quentin Winkler MD Cosigner Signature (If Indicated): Date CC: Dhara Taylor DO WOUND CTR HISTORY Observed: 03/21/2018 Status: F Source: [facility] AND PHYSICAL 8:48 PM [facility] REPOSITORY [facility] Wound Healing Center [address] [place] [address] Wound Ctr History AND Physical 03/21/182028 MR#: [id number] Acct: [id number] Name: AJIT GRIMALDO Rep #: [id number] : 1955 62 From: Samantha Manuel DO PCP: Dhara Taylor DO Status: REG RCR Y Location: WC (1) Ulcer of left borja with fat layer exposed Status: Acute Current Visit: Yes Code(s): L97.822 - Non- pressure chronic ulcer of other part of left lower leg with fat layer exposed (2) Venous ulcer of left lower extremity without varicose veins Status: Acute Current Visit: Yes Code(s): I87.2 - Venous insufficiency (chronic) (peripheral); L97.929 - Non-pressure chronic ulcer of unspecified part of left lower leg with unspecified severity (3) COPD (chronic obstructive pulmonary disease) Status: Chronic Current Visit: Yes Qualifiers: COPD type: unspecified COPD Qualified Code(s): J44.9 - Chronic obstructive pulmonary disease, unspecified Code(s): J44.9 - Chronic obstructive pulmonary disease, unspecified (4) Type II diabetes mellitus Status: Chronic Current Visit: Yes Qualifiers: Diabetes mellitus oil heaterman insulin use: without detention use Diabetes mellitus complication status: without complication Qualified Code(s): E11.9 - Type 2 diabetes mellitus without complications Code(s): E11.9 - Type 2 diabetes mellitus without complications (5) Bilateral leg edema Status: Chronic Current Visit: Yes Code(s): R60.0 - Localized edema (6) Schizophrenia Status: Acute Current Visit: Yes Qualifiers: Schizophrenia type: disorganized schizophrenia Qualified Code(s): F20.1 - Disorganized schizophrenia Code(s): F20.9 - Schizophrenia, unspecified History of Present Illness Date of Service: 03/21/18 Chief Complaint: Wound to the left borja History of Wound: Ajit presents to the wound center for treatment of a nonhealing wound of [...] or incompetent veins in his LE. Dr. Taylor treated him with 2 different antibiotics and he has been applying topical ointment and gauze to the wound but it was not improving. He did start wearing compression stockings in the last day or two. He denies pain, fever, chills, odor or drainage. He lives in a long-term and cares for himself with supervision from staff. He is accompanied today by his complex case manager, Isaac. Past Medical History Past Medical History: Chronic Problems COPD (chronic obstructive pulmonary disease) (Chronic) Right-sided heart failure (Chronic) Type II diabetes mellitus (Chronic) Bilateral leg edema (Chronic) Surgical History: tonsillectomy, - - Debridement of left foot ulcer Allergies/Adverse Reactions: Allergies sulfamethoxazole Allergy (Mild, Verified 03/18/18 17:12) Unknown trimethoprim Allergy (Mild, Verified 03/18/18 17:12) Unknown Penicillins [PCN] Allergy (Verified 03/21/18 20:36) Unknown Home Medications: Ambulatory Orders Medication Instructions Recorded Fluticasone/Salmeterol [Advair 1 puff INHALATION BID 02/12/15 500/50 Mcg Diskus] Metformin HCl [Glucophage] 500 mg PO TID 02/12/15 Multivitamin [Multiple Vitamins] 1 tab PO DAILY 09/23/16 - Family History Maternal Heart Disease Paternal Diabetes Sibling Hypertension Lives: - - long-term Smoking Status: Current every day smoker Tobacco Use: Cigarettes Alcohol: None Drugs: Marijuana Review of Systems Constitutional: Denies: Chills, Fever, Weight Change Eyes: Denies: Pain, Vision Change HEENT: Denies: Difficulty Hearing, Difficulty Swallowing, Sinus Congestion Cardiovascular: Denies: Chest Pain, Palpitations Respiratory: Denies: Cough, Shortness of Breath Gastrointestinal: Denies: Diarrhea, Nausea, Vomiting Genitourinary: Denies: Dysuria, Hematuria Skin: Reports: Wounds Psychiatric: Denies: Homicidal Ideations, Suicidal Ideations Hematologic/ Lymphatic: Denies: Easy Bruising, Easy Bleeding - Physical Exam Vital Signs Temp Pulse Resp BP 96.6 F L 83 18 146/80 H 03/21/18 13:53 03/21/18 13:53 03/21/18 13:53 03/21/18 13:53 General: Alert, Oriented x3, Cooperative, No apparent distress HEENT: Atraumatic, Normocephalic Oral: Moist Mucosa Neck: Supple, No JVD, Negative Carotid Bruits Lungs: Clear to auscultation Cardiovascular: Regular rate, Regular Rhythm Abdomen: Soft, Non Tender, Obese Extremities: Edema, Peripheral Pulses Normal Skin: Ulcer/ Wound Wound Measurements and Assessment WC - Nurse 1 - General Ulcer Measurement Start: 03/21/18 13:50 Freq: Status: Active Protocol: Activity Type Activity Date Activity User E-Sign Co-Sign Detail Recorded Client Recorded Date Recorded By Document 03/21/18 13:53 DL [id number] 03/21/18 14:14 DL Wound Center Nurse 1 [Ulcer Assessment] #2 left borja -Combined with other wound No -Current Size (cm) - Length 0.8 -Current Size (cm) - Width 0.7 WC - Nurse 2 - General Ulcer CM Notes Start: 03/21/18 13:50 Freq: Status: Active Protocol: Activity Type Activity Date Activity User E-Sign Co-Sign Detail Recorded Client Recorded Date Recorded By Document 03/21/18 15:45 DV [id number] 03/21/18 15:51 DV Psych/Mental Status: Flat Affect Debridement Note Post-Debridement Measurements/Treatment WC - Nurse 2 - General Ulcer CM Notes Start: 03/21/18 13:50 Freq: Status: Active Protocol: Activity Type Activity Date Activity User E-Sign Co-Sign Detail Recorded Client Recorded Date Recorded By Document 03/21/18 15:45 DV [id number] 03/21/18 15:51 DV Wound Center Nurse 2 #2 left borja -Time 15:45 -Post Debridement Size (cm) - Length 1.1 Wound debrided: left borja Laterality: Left Type of Debridement: Excisional debridement Anesthesia Used: 4% Lidocaine Solution, 5% Lidocaine Gel Depth: Down to and including healthy tissue, in the subcutaneous layer Percentage of wound debrided: 100 Instrument Used: 5mm curette Tissue Removed: yellow slough, devitalized tissue Severity: Fat Layer Exposed Amount of bleeding with debridement: Mild Bleeding Controlled with: Compression and gauze Patient tolerated procedure well Assessment/Plan Active Problems Ulcer of left borja with fat layer exposed (Acute) Venous ulcer of left lower extremity without varicose veins (Acute) Schizophrenia (Acute) COPD (chronic obstructive pulmonary disease) (Chronic) Type II diabetes mellitus (Chronic) Bilateral leg edema (Chronic) Assessment: nonhealing wound left borja. venous ulcer left borja. b/l LE edema. DM type II Plan: Ajit's wound was evaluated and debrided today. His previous testing was reviewed. Will treat his wound with Caron dressings changed daily and advised him to wear his compression stockings. If there is difficulty with healing would repeat his arterial studies. Encouraged increased protein, elevation of LE and wearing compression stockings while awake and removing at bedtime. F/U in 1 week. 03/21/182047 <Electronically signed by Samantha Manuel DO> Date Samantha Manuel DO CC: Signed EMERGENCY DEPARTMENT Observed: 03/18/2018 Status: F Source: [place] SUMMARY 11:42 PM [facility] REPOSITORY [facility] Medical Records Department [address] [place] [address] Emergency Department Summary 03/18/18 1815 MR#: [id number] Acct: [id number] Name: AJIT GRIMALDO Rep #: [id number] : 1955 62 From: Petrona Rios MD PCP: Dhara Taylor DO Status: DEP ER - ER Visit Summary Date of Service: 03/18/18 Chief Complaint: Left forearm pain History of Present Illness: The patient is a 62 M presenting with left forearm pain 5-6 months. He states he has pain to the volar aspect of the left forearm. He states this has been ongoing for the past 5-6 months. He is concerned about possibility of fibromyalgia. He denies any injury. Denies chest pain or shortness of breath. Denies fever. He saw his primary care physician yesterday but did not mention this to her. He has tried ibuprofen at home. Denies other complaints. Physical Examination: Vitals are stable. Patient is afebrile. Alert no acute distress. HEENT exam is unremarkable. Neck is supple. Lungs are clear and equal bilaterally. Heart is regular rate and rhythm. Abdomen is soft nontender nondistended. Extremities are unremarkable. No erythema or warmth. No bony tenderness. AFROM. Normal distal pulses, normal cap refill Skin is warm and dry. No focal neurologic deficit. Remainder of exam is unremarkable. Emergency Department Course and Treatment: Patient is given Motrin. Advised to follow-up with his primary care physician. Advised return to ED for worsening complaints. Disposition: Discharge home Impression: Left forearm pain This note was generated with SupportLocal dictation software. It may contain incorrect words, spelling, and punctuation that were not noted in review of the chart prior to signing ED Disposition - Plan for ED Patient: Chief Complaint: Upper Extremity Injury Referrals: Dhara Taylor, [Primary Care Provider] - What to do if you have Problems For any increased pain, shortness of breath, bleeding, nausea or vomiting, chest pain, or any unexpected problems, contact your Primary Care Provider. Call [facility] ([phone]) or report to the closest Emergency Room. Call 911 if necessary. 03/18/18 0422 <Electronically signed by Petrona Rios MD> Date Petrona Rios MD Cosigner Signature (If Indicated): Date CC: Dhara Taylor DO DISCHARGE INSTRUCTION Observed: 03/18/2018 Status: F Source: [place] 6:18 PM [facility] REPOSITORY [facility] Medical Records Department [address] [place] [address] Discharge Instruction 03/18/181816 MR#: [id number] Acct: [id number] Name: AJIT GRIMALDO Rep #: [id number] : 1955 62 From: Petrona Rios MD PCP: Dhara Taylor DO Status: PRE ER ED Disposition - Plan for ED Patient: Chief Complaint: Upper Extremity Injury Instructions: ED Spasm Muscle Referrals: Dhara Taylor DO [Primary Care Provider] - What to do if you have Problems For any increased pain, shortness of breath, bleeding, nausea or vomiting, chest pain, or any unexpected problems, contact your Primary Care Provider. Call [facility] ([phone]) or report to the closest Emergency Room. Call 911 if necessary. 03/18/181817 <Electronically signed by Petrona Rios MD> Date Petrona Rios MD Cosigner Signature (If Indicated): Date CC: Dhara aTylor DO PLATELET COUNT Collected: 01/21/2018 Status: F Source: [place]DE[place] 8:17 AM [facility] REPOSITORY TYPE CODE TESTS RESULT OUT OF RANGE REFERENCE UNITS LAB L100.1900 150-450 K/mm3 Normal PLT 178 Performed By: #### L100.1900 #### [facility] [address] [place], [address] VALPROIC ACID Collected: 01/21/2018 Status: F Source: [place] (DEPAKENE) [facility] 8:17 AM [facility] REPOSITORY TYPE CODE TESTS RESULT OUT OF RANGE REFERENCE UNITS LAB L501.8100 50-100 ug/mL Normal VALPROIC ACID 73 Performed By: #### L501.8100 #### [facility] [address] [place], [address] AST(SGOT) Collected: 01/21/2018 Status: F Source: [place] 8:17 AM [facility] REPOSITORY TYPE CODE TESTS RESULT OUT OF RANGE REFERENCE UNITS LAB L501.4100 15-37 U/L Normal AST 20 Performed By: #### L501.4100, L501.4405 #### [facility] [address] [facility] [place], [address] ALANINE AMINOTRANSFERAS Collected: 01/21/2018 Status: F Source: [place] (SGPT) 8:17 AM [facility] REPOSITORY TYPE CODE TESTS RESULT OUT OF RANGE REFERENCE UNITS LAB L501.4405 16-61 U/L Low ALT 15 Performed By: #### L501.4100, L501.4405 #### [facility] [address] [place], [address] EMERGENCY DEPARTMENT Observed: 11/30/2017 Status: F Source: [place] SUMMARY 3:45 PM [facility] REPOSITORY [facility] Medical Records Department [address] [place] [address] Emergency Department Summary 11/26/17 1320 MR#: [id number] Acct: [id number] Name: AJIT GRIMALDO Rep #: [id number] : 1955 62 From: Blayne Caldwell DO PCP: Dhara Taylor DO Status: DEP ER - ER Visit Summary Date of Service: 11/26/17 Chief Complaint: [Bilateral leg edema and erythema] History of Present Illness: The patient is [...] history years ago of sepsis from strep related to a left foot wound that required [...] normal range of motion, normal pulses, atraumatic]. Patient has diffuse erythema of both lower extremities below the knee and down to both feet. Lower extremities are warm to the touch. Normal pulses palpated in both lower extremities. Test Results: [Venous duplex of both lower extremities were negative for DVT. CBC with differential showed a white blood cell count of 6.7, hemoglobin 14, hematocrit 42, platelets 185. Chemistries unremarkable.] Emergency Department Course and Treatment: [Patient was medicated with Unasyn 3 g IV.] Treatment Plan: [Patient will be treated with Keflex and advised to follow-up with his primary care physician within the next 3-5 days. Patient to return if fever, increased redness or swelling, or condition should worsen in any way.] Disposition: [Discharged to home in stable condition.] Impression: [Bilateral lower extremity cellulitis] This note was generated with SupportLocal dictation software. It may contain incorrect words, [...] your Primary Care Provider. Call [facility] ([phone]) or report to the closest Emergency Room. Call 911 if necessary. 11/30/17 1545 <Electronically signed by Blayne Caldwell DO> Date Blayne Caldwell DO Cosigner Signature (If Indicated): Date CC: Dhara Claudia DO VENOUS DUPLEX LOWER Observed: 11/26/2017 Status: F Source: [place] EXTREMITY 3:22 PM [facility] REPOSITORY [facility] Cardiovascular Services [address] [place] [address] Venous Duplex US - Kane Extrem 11/26/17 1349 MR#: [id number] Acct: [id number] Name: AJIT GRIMALDO Rep #: [id number] : 1955 62 From: Roger Carney MD Attending Dr: Status: DEP ER Ordering Dr: Blayne Caldwell DO Date: 11/26/17 Location: ED Sex: M C Admitted: Reason For Study: swelling RIGHT LEFT GSV is normal. GSV is normal. CFV is compressible, spontaneous, phasic, CFV is compressible, spontaneous, phasic, competent and demonstrates normal competent, and demonstrates normal augmentation. augmentation. FV is compressible, spontaneous, phasic, FV is compressible, spontaneous, phasic, competent and demonstrates normal competent and demonstrates normal augmentation. augmentation. POP V is compressible, spontaneous, phasic, POP V is compressible, spontaneous, phasic, competent and demonstrates normal competent and demonstrates normal augmentation. augmentation. T/P Trunk is compressible. T/P Trunk is compressible. PTV is compressible. PTV is compressible. RT PerV is compressible. LT PerV is compressible. Procedure Exam performed portable in ED. The exam was diagnostic. A preliminary report was called and/or faxed to Dr. Caldwell. Interpretation Summary No evidence for acute deep venous thrombosis bilateral lower extremities with patent and compressible bilateral great saphenous veins. Ordering Physician: Blayne Caldwell Performed By: Sukhjinder Rodriguez RVT 11/26/17 1522 Date Roger Carney MD CC: Dhara Taylor DO; Blayne Caldwell DO Date Dictated: 11/26/17 1349 Date Transcribed: 11/26/17 1522 Associate Web Developer: Signed DISCHARGE INSTRUCTION Observed: 11/26/2017 Status: F Source: [place] 2:36 PM [facility] REPOSITORY [facility] Medical Records Department [address] [place] [address] Discharge Instruction 11/26/17 1435 MR#: [id number] Acct: [id number] Name: AJIT GRIMALDO Rep #: [id number] : 1955 62 From: Blayne Caldwell DO PCP: Dhara Taylor DO Status: REG ER ED Disposition - Plan for ED Patient: Chief Complaint: Cellulitis Instructions: Discharge Instructions for Cellulitis Prescriptions: Cephalexin [Keflex] 500 mg PO Q6 #40 cap Referrals: Dhara Taylor DO [Primary Care Provider] - 3-5 Days What to do if you have Problems For any increased pain, shortness of breath, bleeding, nausea or vomiting, chest pain, or any unexpected problems, contact your Primary Care Provider. Call [facility] ([phone]) or report to the closest Emergency Room. Call 911 if necessary. 11/26/17 1436 <Electronically signed by Blayne Caldwell DO> Date Blayne Caldwell DO Cosigner Signature (If Indicated): Date CC: Dhara Taylor DO CBC W/DIFF, AUTOMATED Collected: 11/26/2017 Status: F Source: R[place] 1:05 PM [facility] REPOSITORY TYPE CODE TESTS RESULT OUT OF RANGE REFERENCE UNITS LAB L100.1000 4.4-11.0 K/mm3 Normal WBC 6.7 LAB L100.1200 4.6-6.2 M/mm3 Normal RBC 4.61 LAB L100.1300 13.0-16.5 g/dl Normal HGB 14.0 LAB L100.1400 40-54 % Normal HCT 42.2 LAB L100.1500 80-94 fL Normal MCV 91.5 LAB L100.1600 27.0-32.0 pg Normal MCH 30.4 LAB L100.1700 32-36 g/gl Normal MCHC 33.2 LAB L100.1810 11.6-14.6 % Normal RDW CV 13.1 LAB L100.1820 35.1-43.9 fl Normal RDW SD 43.3 LAB L100.1900 150-450 K/mm3 Normal PLT 185 LAB L100.2000 6.2-12.0 fl Normal MPV 10.2 LAB L100.2100 47-70 % Normal NEUT% 68.8 LAB L100.2200 19-41 % Normal LY% 19.2 LAB L100.2300 0-10 % Normal MONO% 8.6 LAB L100.2400 0-5 % Normal EO% 2.6 LAB L100.2500 0-1 % Normal BASO% 0.5 LAB L100.2550 0.0-0.9 % Normal IM GRAN % 0.300 Result Comment: IG% - Immature Granulocytes (promyelocytes, myelocytes and metamyelocytes) > 1% indicates that a LEFT SHIFT is Present. LAB L100.2620 2.0-7.7 X10 3/uL Normal Absolute Neut 4.6 LAB L100.2720 0.83-4.51 X10 3/ul Normal Absolute Lymph 1.28 Performed By: #### L100.0100 #### [facility] [address] [place], [place], [id number] BASIC METABOLIC Collected: 11/26/2017 Status: F Source: [place] PROFILE ([facility]) 1:05 PM [facility] REPOSITORY TYPE CODE TESTS RESULT OUT OF RANGE REFERENCE UNITS LAB L501.0100 74-106 mg/dL Normal GLU 85 Result Comment: Please note revised GLUCOSE reference range effective 2017. LAB L501.1000 7-18 mg/dL High BUN 21 LAB L501.1100 0.70-1.30 mg/dL Normal CREAT,SERUM 1.09 Result Comment: The validity of the calculated GFR AND GFRAA in patients over 70 years has not been determined. Clinical correlation is essential. LAB L501.1110 >60 mL/min Normal EST GFR 73 Result Comment: Non- GFR Calc LAB L501.1115 >60 mL/min Normal EST GFR - AA 88 Result Comment: GFR Calc LAB L501.1255 ml/min Normal Estimated CRCL 73.48 LAB L501.1300 10-20 RATIO Normal BUN/CRE 19.3 LAB L501.2200 8.5-10 mg/dL Normal .1 CA 9.0 LAB L501.5300 136-14 mmol/L Normal 5 NA 139 LAB L501.5600 3.5-5. mmol/L Normal 1 K 4.1 LAB L501.5900 98-107 mmol/L Normal CL 102 LAB L501.6100 21.0-3 mmol/L High 2.0 CO2 33.0 LAB L501.6200 5-15 Low GAP 4 Performed By: #### L500.2500 #### [facility] [address] [place], [address] PROGRESS Observed: 11/26/2017 Status: COMPLETED Source: [place] 12:12 PM [facility] [place] [facility] REPOSITORY [facility] ID: [id number] Author: Nova Méndez Service: (none) Author Type: Nurse Practitioner Type: Progress Notes Filed: 11/26/2017 1:24 PM Note Text: Subjective HPI Patient is a 62 year old male sent to [facility] today by his psychiatrist for concerns of blood clot. Patient states he is a T2 diabetic. States his legs are swelling and have become more swollen over the last 3-4 days. States he has a wet cough. Denies fever. States last A1C 5.8. Denies fever or SOB. Nothing makes his legs better fells he is getting worse. Review of Systems Constitutional: Negative for chills and fever. Respiratory: Positive for cough, sputum production and wheezing. Negative for hemoptysis and shortness of breath. Cardiovascular: Positive for leg swelling. Negative for chest pain, palpitations, orthopnea, claudication and PND. Gastrointestinal: Negative for nausea and vomiting. Musculoskeletal: Negative for myalgias. Skin: Erythematous lower legs Neurological: Negative for dizziness. Endo/Heme/Allergies: Negative for environmental allergies. Does not bruise/bleed easily. All other systems reviewed and are negative. 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 TAKE WITH FOOD. DAILY-LYLA tablet TAKE 1 TABLET DAILY VENTOLIN HFA 90 mcg/actuation inhaler INHALE 2 PUFFS EVERY FOUR HOURS NEEDED FOR WHEEZING AND SHORTNESS OF BREATH furosemide (LASIX) 20 mg tablet TAKE 1 TABLET DAILY metFORMIN (GLUCOPHAGE) 1,000 mg tablet TAKE 1 TABLET DAILY WITH BREAKFAST OXcarbazepine (TRILEPTAL) 300 mg tablet Take 1 tablet by mouth twice daily. folic acid 1 mg tablet Take 1 tablet by mouth once daily. cloZAPine 200 mg tablet Take 400 mg by mouth daily at bedtime. divalproex DR (DEPAKOTE) 250 mg EC tablet Take 1 tablet by mouth three times daily. benztropine (COGENTIN) 1 mg tablet Take 1 tablet by mouth twice daily. docusate sodium (COLACE) 100 mg capsule Take 1 capsule by mouth twice daily as needed for Constipation. fluticasone (FLONASE) 50 mcg/actuation nasal spray Use 2 Sprays in each nostril once daily. FAMILY HISTORY Problem Relation Age of Onset - Diabetes Father - Hypertension Father - Heart Father - COPD Mother - Diabetes Sister obesity - Arthritis Sister osteoarthritis - Emphysema Mother Social History Substance Use Topics - Smoking status: Current Every Day Smoker Packs/day: 1.50 Years: 29.00 Types: Cigarettes - Smokeless tobacco: Never Used - Alcohol use Yes Comment: WEEKLY,SOCIALLY ONE OR TWO DRINKS BP 132/82 (BP Site: Left Arm, BP Position: Sitting, BP Cuff Size: Large Adult) Pulse 82 Temp 36.6 ?C (97.8 ?F) (Left Tympanic) Resp 20 Wt 93.4 kg (206 lb) SpO2 98% BMI 29.56 kg/m2 Objective Physical Exam Constitutional: He is oriented to person, place, and time and well-developed, well-nourished, and in no distress. Vital signs are normal. He appears not lethargic, to not be writhing in pain and not dehydrated. He has a sickly appearance. No distress. HENT: Head: Normocephalic and atraumatic. Cardiovascular: Normal rate, regular rhythm and normal heart sounds. Exam reveals no gallop and no friction rub. No murmur heard. Pulmonary/Chest: Effort normal. No respiratory distress. He has wheezes. He has rales. Neurological: He is alert and oriented to person, place, and time. He appears not lethargic. Skin: Skin is warm and dry. He is not diaphoretic. There is erythema. Psychiatric: Affect normal. Nursing note and vitals reviewed. ASSESSMENT/PLAN: 1. Pain and swelling of lower leg, unspecified laterality - ICD9: 729.5, 729.81, ICD10: M79.669, M79.89 (primary diagnosis) 2. Wheeze - ICD9: 786.07, ICD10: R06.2 3. Bilateral rales - ICD9: 786.7, ICD10: R09.89 Discussed with patient concern over infection of lower legs bilaterally. Also his lung sounds are concerning Based on symptoms and exam patient has been instructed to seek further evaluation in ER. Patient verbalizes understanding and will inform his group care worker from his long-term. A note was given to him with the provider recommendation. Patient is agreeable. Face sheet faxed to [facility] and report called. Nova Méndez CNP CNCO Observed: 11/26/2017 Status: COMPLETED Source: [place] 12:00 AM [facility] REPOSITORY Letter Text [place] [facility] Dev Bhatt CNP [address], [place] [address] 11/26/2017 Ajit Grimaldo CC# [id number] [address] [place] [id number] TO WHOM IT MAY CONCERN: This is to confirm that Ajit Grimaldo had an appointment and was seen at [facility] in the Department of Urgent Care by Dev Bhatt CNP on 11/26/2017. The patient is being referred to the local Emergency Room for his acute medical conditions at this time. It is the provider's opinion the he may need a more detailed work up then can be done in the [facility] Setting. Sincerely yours, Dev Bhatt CNP ALLERGIES ALLERGIES DATE TYPE / CODE NAME / CODE REACTION SEVERITY SOURCE 09/06/2018 Drug sulfamethoxazo Unknown [place] Allergy/950880121(S le/F811409478( Community NOMED CT) RXNORM) Hospital Repository 09/06/2018 Drug trimethoprim/F Unknown [place] Allergy/255760372(S 843413562(RXNO [facility] NOM[facility]) RM) Hospital Repository 09/06/2018 Drug Penicillins/F0 Unknown Unknown [place] Allergy/027996667(S 23369643(RXNOR Community NOMED CT) M) Hospital Repository 04/15/2015 DRUG NICOTINE SHORTNESS OF [place] INGREDI/305853720(S Clinic Main NOMED CT) [place] Repository 02/15/2014 Drug SULFA UNKNOWN [place] Class/595651970(SNO (SULFONAMIDE Clinic Main MED CT) ANTIBIOTICS) [place] Repository 07/30/2005 Environ/512182069(S DUST [place] NOMED [facility]) Clinic Main [place] Repository 07/30/2005 DRUG MOLD [place] INGREDI/109759976(S [facility] Main [facility]OM[facility]) [place] Repository 07/30/2005 Miscellaneous OTHER SWELLING [place] Allergy/959262836(S [facility] Main NOM[facility]) [place] Repository ENCOUNTERS ENCOUNTERS ADMIT/DISCHARGE ACCOUNT ADMITTING ENCOUNTER LOCATION SOURCE NUMBER CLASS 09/06/2018/09/06/20 [id number] Emergency [address] ing:ED Repository 09/05/2018/09/05/20 [id number] Emergency [address] ing:ED Repository 09/02/2018 [id number] Ambulatory [facility] ing:LAB Repository 08/15/2018 [id number] Ambulatory Building:[facility] OHIP Practices Repository 06/23/2018 [id number] Ambulatory [facility] ing:LAB Repository 05/17/2018 [id number] Ambulatory [facility] Hospital ing:WC Repository 05/08/2018/05/10/20 [id number] Kristal Larsen Ambulatory [address] ing:PCURoom: Repository [id number]: 1 05/08/2018 [id number] White, Kristal Ambulatory BMSBuilding:Mari Soares [facility] Repository 05/08/2018 [id number] White Kristal Ambulatory BMSBuilding:Mari Soares [facility] Repository 05/08/2018/05/10/20 [id number] Ambulatory BMSBuilding:W Rodger Larios [facility] Repository 05/08/2018 [id number] Ambulatory BMSBuilding:Mari Soares [facility] Repository 05/02/2018/05/02/20 [id number] Emergency [address] Hospital ing:ED Repository 04/18/2018/05/06/20 [id number] Ambulatory [address] Hospital ing:WC Repository 04/16/2018/04/17/20 [id number] Agyepon, Ambulatory [address] ing:PCURoom: Repository [id number]: 1 04/16/2018 [id number] Agyepong, Ambulatory BMSBuilding:Mari Baker [facility] Repository 04/16/2018 [id number] Agyepon, Ambulatory BMSBuilding:Mari Baker MS.[facility] Repository 04/16/2018/04/16/20 [id number] Emergency [address] Hospital ing:ED Repository 04/04/2018/04/05/20 [id number] Ambulatory [address] Hospital ing:WC Repository 03/18/2018/03/18/20 [id number] Emergency [address] Hospital ing:ED Repository 01/21/2018 [id number] Ambulatory [facility] ing:LAB Repository 11/26/2017/11/26/19 [id number] Emergency [place] Rod[place] [address] [place] [address] ing:ED Repository 11/26/2017 [id number] Ambulatory BMSBuilding:B [place] MS.[facility] Repository 11/26/2017/11/27/19 [id number] Ambulatory [address] Repository PAYERS PAYERS ENCOUNTER GUARANTOR PAYER SUBSCRIBER SOURCE 09/06/2018 AJIT GRIMALDO1410 Primary AJIT SIMONB: [place] Insurance:[facility] [id number] [facility] [place] [facility] [place] [facility] [address]Nil: (330) Number: Repository [phone] () [id number] Date:8101-09-29BBQI [address]S [address] [address]BV: 09/06/2018 Secondary NOT GIVENUNK [place] Insurance:SELF PAY [facility] Number: Effective Repository Date:2018-09-06 09/05/2018 AJIT MADISON0 Primary AJIT SIMONB: [place] Insurance:[facility] [id number] [facility] [facility] [place] [facility] [address]Mil: (330) Number: Repository [phone] () [id number] Date:9451-13-31HBVO [address]S [address] [place] [address]FS: 09/05/2018 Secondary NOT GIVENUNK [place] Insurance:SELF PAY [facility] Number: Effective Repository Date:2018-09-05 09/02/2018 AJIT GRIMALDO1410 Primary AJIT SIMONB: [place] Insurance:[facility] [id number] [facility] [place] [facility] [place] [facility] [address]Dsg: (330) Number: Repository [phone] () [id number] Date:8041-91-48OCOT [address]S [address] [address]WE: 09/02/2018 Secondary NOT GIVENUNK [place] Insurance:SELF PAY [facility] Number: Effective Repository Date:2018-09-02 08/15/2018 Ajit SimonB: Primary Ajit SimonB: OHIP [facility] [id number] Insurance:[facility]/ [id number] Repository [address], [facility] [place], [place] [address]Sza: Number: [place] [id number]: [id number] (HP)Tel: (086) Date:4323-83-11Ygrp (HP) [phone] () Name:[address] [id number]: 06/23/2018 AJIT MADISON0 Primary AJIT SIMONB: [place] Insurance:[facility] [id number] [place] *[place] [facility] [place] [facility] [address]Pth: (152) Number: Repository [phone] () [id number] Date:0745-93-61IVSM [address]S [address] [place] [address]CJ: 06/23/2018 Secondary NOT GIVENUNK [place] Insurance:SELF PAY [facility] Number: Effective Repository Date:2018-06-23 05/17/2018 AJIT Zamora [id number] Primary AJIT SIMONB: [place] [address], Insurance:[facility] [id number] Count includes the [facility] [address]Xiy: *IN [facility] [place] [facility] Number: Repository () [id number] Date:3014-91-05VSXG [address] [address]LB: 05/17/2018 Secondary NOT GIVENUNK [place] Insurance:SELF PAY [facility] Number: Effective Repository Date:2018-05-07 05/08/2018 AJIT GRIMALDO1410 Primary AJIT SIMONB: [place], Insurance:[facility] [id number] Count includes the [facility] [address]Zqm: *IN [facility] [place] [facility] Number: Repository () [id number] Date:9458-31-81RKFL [address]S [address] [address]CA: 05/08/2018 Secondary NOT GIVENUNK [place] Insurance:SELF PAY [facility] Number: Effective Repository Date:2018-05-08 05/08/2018 AJIT GRIMALDO1410 Primary AJIT Sera GRIMALDODOB: [place], Insurance:[facility] [id number] [facility] [place] [address]Bhm: *IN [facility] [place] [facility] Number: Repository () [id number] Date:9913-54-55WYAU [address] [address]BU: 05/08/2018 Secondary NOT GIVENUNK [place] Insurance:SELF PAY [facility] Number: Effective Repository Date:2018-05-08 05/08/2018 AJIT MADISON0 Primary AJIT Sera GRIMALDODOB: [place], Insurance:[facility] [id number] [facility] [place] [address]Ylv: *IN [facility] [place] [facility] Number: Repository () [id number] Date:0592-48-79KMFQ [address]S [address] [place] [address]GF: 05/08/2018 Secondary NOT GIVENUNK [place] Insurance:SELF PAY [facility] Number: Effective Repository Date:2018-05-08 05/08/2018 AJIT GRIMALDO1410 Primary AJIT Sera GRIMALDODOB: [place], Insurance:[facility] [id number] [facility] [place] [address]Ewa: *IN [facility] [place] [facility] Number: Repository () [id number] Date:7625-02-63JVVX [address]S [address] [address]HH: 05/08/2018 Secondary NOT GIVENUNK [place] Insurance:SELF PAY [facility] Number: Effective Repository Date:2018-05-08 05/08/2018 AJIT GRIMALDO1410 Primary AJIT SIMONB: [place], Insurance:[facility] [id number] [facility] [place] [address]Lcj: *IN [facility] [place] [facility] Number: Repository () [id number] Date:5230-62-54KEYQ [address]S [address] [address]DU: 05/08/2018 Secondary NOT GIVENUNK [place] Insurance:SELF PAY [facility] Number: Effective Repository Date:2018-05-08 05/02/2018 AJIT GRIMALDO547 Primary AJIT SIMONB: [place] [address] [address], Insurance:[facility] [id number] [place] [address]Zkz: *IN [facility] [place] [facility] Number: Repository () [id number] Date:2191-42-45STRU [address]S [address] [address]MX: 05/02/2018 Secondary NOT GIVENUNK [place] Insurance:SELF PAY [facility] Number: Effective Repository Date:2018-05-02 04/18/2018 AJIT GRIMALDO547 Primary AJIT SIMONB: [place] [address], Insurance:[facility] [id number] [facility] [place] [address]Lnh: *IN [facility] [place] [facility] Number: Repository () [id number] Date:2136-42-36KDXW [address]S [address] [place] [address]QO: 04/18/2018 Secondary NOT GIVENUNK [place] Insurance:SELF PAY [facility] Number: Effective Repository Date:2018-04-06 04/16/2018 AJIT GRIMALDO547 Primary AJIT SIMONB: [place] [address], Insurance:[facility] [id number] [facility] [place] [address]Knb: *IN [facility] [place] [facility] Number: Repository () [id number] Date:9272-59-82UHJP [address]S [address] [address]EB: 04/16/2018 Secondary NOT GIVENUNK [place] Insurance:SELF PAY [facility] Number: Effective Repository Date:2018-04-16 04/16/2018 AJIT GRIMALDO547 Primary AJIT GRIMALDODOB: [place] [address], Insurance:[facility]ARE [facility]S [id number] [facility] [place] [address]Tcx: *IN [facility] [place] [facility] Number: Repository () [id number] Date:7026-14-72CCVL [address]S [address] [address]JY: 04/16/2018 Secondary NOT GIVENUNK [place] Insurance:SELF PAY [facility] Number: Effective Repository Date:2018-04-16 04/16/2018 AJIT PATEL7 Primary AJIT GRIMALDODOB: [place] [address], Insurance:[facility] [id number] [facility] [place] [address]Mpz: *IN [facility] [place] [facility] Number: Repository () [id number] Date:5738-10-18YSEG [address]S [address] [address]ED: 04/16/2018 Secondary NOT GIVENUNK [place] Insurance:SELF PAY [facility] Number: Effective Repository Date:2018-04-16 04/16/2018 AJIT GRIMALDO547 Primary AJIT GRIMALDODOB: [place] [address], Insurance:[facility] [id number] [facility] [place] [address]Crr: *IN [facility] [place] [facility] Number: Repository () [id number] Date:6687-35-67DVEH [address]S [address] [address]KQ: 04/16/2018 Secondary NOT GIVENUNK [place] Insurance:SELF PAY [facility] Number: Effective Repository Date:2018-04-16 04/04/2018 AJIT GRIMALDO547 Primary AJIT GRIMALDOB: [place] [address], Insurance:[facility] [id number] [facility] [place] [address]Wcf: *IN [facility] [place] [facility] Number: Repository () [id number] Date:4804-02-13QHVM [address] [address]YE: 04/04/2018 Secondary NOT GIVENUNK [place] Insurance:SELF PAY [facility] Number: Effective Repository Date:2018-03-21 03/18/2018 AJIT GRIMALDO547 Primary AJIT GRIMALDOB: [place] [address], Insurance:[facility] [id number] [facility] [place] [address]Vek: *IN [facility] [place] [facility] Number: Repository () [id number] Date:1144-99-17OYLS [address]S [address] [place] [address]QX: 03/18/2018 Secondary NOT GIVENUNK [place] Insurance:SELF PAY [facility] Number: Effective Repository Date:2018-03-18 01/21/2018 Ajit Grimaldo547 Primary AJIT GRIMALDOB: [place] [address], Insurance:[facility] [id number] [facility] [place] [address]Kkb: *IN [facility] [place] [facility] Number: Repository () [id number] Date:4964-97-87MOMD [address]S [address] [place] [address]OA: 01/21/2018 Secondary NOT GIVENUNK [place] Insurance:SELF PAY [facility] Number: Effective Repository Date:2018-01-21 11/26/2017 Ajit Grimaldo547 Primary AJIT GRIMALDOB: [place] [address], Insurance:[facility] [id number] [facility] [place] [address]Yqt: *IN [facility] [place] [facility] Number: Repository () [id number] Date:3620-55-18KUPD [address]S [address], [place] [address]NR: 11/26/2017 Secondary NOT GIVENUNK [place] Insurance:SELF PAY [facility] Number: Effective Repository Date:2017-11-26 11/26/2017 Ajit Grimaldo547 Primary AJIT ROBISON: [place] [address] [place], Insurance:[facility] [id number] [facility] [address]Uzc: *IN [facility] [place] [facility] Number: Repository () [id number] Date:[id number] [facility]S [facility] [address] [place] [id number]: 11/26/2017 Secondary NOT GIVENUNK [place] Insurance:SELF PAY [facility] Number: Effective Repository Date:2017-11-26
== END ==
PROVIDERS: Family Provider Internal Medicine; PCP Internal Medicine; Referring Provider Internal Medicine; Visit Provider Internal Medicine
DX: Z51.81 Encounter for therapeutic drug level monitoring (principal)
CPT/HCPCS: 36415; 80048

== ENCOUNTER 2018-09-05 18:20 | Emergency (ER) | payer MEDICARE, SELFPAY ==
[2018-09-05 18:22] VITALS: BP 162/90; PULSE 77; RESP 17; TEMP 36.8; O2SAT 99; BMI 61.7
--- NOTE | 2018-09-05 18:37 | EKG12_ITS ---
Test Reason : ANXIETY Blood Pressure : / mmHG Vent. Rate : 075 BPM Atrial Rate : 075 BPM P-R Int : 164 ms QRS Dur : 084 ms QT Int : 380 ms P-R-T Axes : 075 060 069 degrees QTc Int : 424 ms Normal sinus rhythm Normal ECG Confirmed by MATILDE ALSTON, WILFRID ([id number]), editor book DANNA LIZAMA ([id number]) on 09/09/2018 2:09:11 PM Referred By: Dhara Taylor Confirmed By:WILFRID CLAYTON MD
--- NOTE | 2018-09-05 18:38 | RAD_ITS ---
STUDY: X-RAY CHEST REASON FOR EXAM: Male, 62 years old. Chest pain and TECHNIQUE: Frontal view of the chest COMPARISON: 05/08/2018 FINDINGS: The lungs are clear. There are no pleural effusions. There is no pneumothorax. The heart is normal in size. Again noted are old, healed right-sided rib fractures. RAD/Chest 1 View (Portable) IMPRESSION: No acute thoracic pathology. Electronically Signed: Vladimir Pandya, at 19:14 EST Tel , Service support ,
[2018-09-05 18:49] VITALS: BP 145/79; PULSE 79; RESP 14; O2SAT 95
[2018-09-05] MEDS: 0.9% Normal Saline 1,000 ML 150 ML IV (18:58)
[2018-09-05] MEDS: Aspirin 81 MG TAB.CHEW 324 MG PO (18:58)
[2018-09-05 19:03] LABS: Absolute Neutrophil Count 4.4 X10^3/uL (2.0-7.7); Basophil# 0.05 X10^3/uL; Basophil% 0.7 % (0-1); Eosinophil# 0.25 X10^3/uL; Eosinophils% 3.4 % (0-5); Hematocrit 36.6 % (40-54); Hemoglobin 12.3 g/dl (13.0-16.5); Lymphocyte % 24.7 % (19-41); Mean Corp Hgb Conc 33.6 g/gl (32-36); Mean Corpuscular Hgb 29.5 pg (27.0-32.0); Mean Corpuscular Volume 87.8 fL (80-94); Mean Platelet Vol. 10.2 fl (6.2-12.0); Monocyte# 0.77 X10^3/uL; Monocyte% 10.5 % (0-10); Neutrophil # 4.41 X10^3/uL (2.7-7.7); Neutrophil % 60.4 % (47-70); Platelet Count 210 K/mm3 (150-450); RBC Distribution Width CV 12.7 % (11.6-14.6); RBC Distribution Width SD 40.9 fl (35.1-43.9); Red Blood Count 4.17 M/mm3 (4.6-6.2); White Blood Count 7.3 K/mm3 (4.4-11.0)
[2018-09-05 19:04] LABS: POSITIVE COUNT NO; POSITIVE DIFFERENTIAL NO; POSITIVE MORPHOLOGY NO
[2018-09-05 19:22] LABS: Anion Gap 8 (5-15); BUN 17 mg/dL (7-18); Calcium,Total 8.3 mg/dL (8.5-10.1); Chloride 99 mmol/L (98-107); Creatinine, Serum 1.06 mg/dL (0.70-1.30); EST Glomerular Filtration Rate 75 mL/min (>60); Est Glom Filt Rate - Afr Amer 91 mL/min (>60); Estimated Creatinine Clearance 75.56 ml/min; Glucose 99 mg/dL (74-106); Potassium 3.9 mmol/L (3.5-5.1); Sodium Level 135 mmol/L (136-145)
[2018-09-05 20:02] LABS: Valproic Acid (Depakene) Level 58 ug/mL (50-100)
--- NOTE | 2018-09-05 20:24 | ED.VISSUMM ---
- ER Visit Summary Date of Service: 09/05/18 Chief Complaint: [Chest pain] History of Present Illness: The patient is a 62 M [presents the emergency department via EMS with complaint of chest pain that started about 40 minutes prior to coming in. Patient describes a sudden onset of sharp stabbing pain in his epigastric region that lasted about 10 minutes and then resolved. Patient states that once EMS got there his pain had resolved and then he felt embarrassed about coming in. Patient states that it felt like a bubble in his chest that kind of came up and released and then his pain resolved. Patient became very anxious as he was having the discomfort. He denied any radiation of the pain. He denied any shortness of breath. He denies any nausea or vomiting associated with it. Patient denied any diaphoresis. He had never had pain like this before. Patient denies any history of exertional dyspnea. He is currently pain-free. Patient does have a history of CHF, COPD, TIAs, diabetes, and schizophrenia. Patient currently lives in a skilled nursing where they give him his medication daily therefore he has been compliant with all his meds. Patient is not suicidal or homicidal. Physical Examination: [HEENT-PERRLA, EOMI. Cranial nerves II through XII grossly intact. TMs clear. Mucous membranes moist. No adenopathy. Cardiovascular-regular rate and rhythm without murmur or ectopy Lungs-clear to auscultation, chest wall stable without crepitus or subcu emphysema Abdomen-normoactive bowel sounds, soft, nontender, no rebound or rigidity, no peritoneal signs. Extremities-intact ?4, normal range of motion, normal pulses, atraumatic] Test Results: [EKG obtained on arrival showed a sinus rhythm with a ventricular rate of 75 bpm with no acute ST segment changes. CBC with differential was normal. Chemistries were normal. Troponin was less than 0.015. Valproic acid was 58. Chest x-ray unremarkable.] Emergency Department Course and Treatment: [Patient remained pain-free in the emergency department. He had received aspirin.] Treatment Plan: [Patient advised to follow-up with his primary care physician within next 3-5 days. At this point I do not believe his chest pain is cardiac is it is extremely atypical. Patient's heart score is a 2.] I suspect likely GI cause for his symptoms. Disposition: [Discharged to home in stable condition Impression: [Chest pain-etiology uncertain] This note was generated with [employer] dictation software. It may contain incorrect words, spelling, and punctuation that were not noted in review of the chart prior to signing ED Disposition - Plan for ED Patient: Chief Complaint: Anxiety Referrals: Dhara Taylor DO [Primary Care Provider] -
--- NOTE | 2018-09-05 20:29 | ED.DEP ---
ED Disposition - Plan for ED Patient: Chief Complaint: Anxiety Instructions: ED Stress React, ED GERD, ED Chest Pain Atypical Unkn Cause Referrals: Dhara Taylor DO [Primary Care Provider] - 3-5 Days
[2018-09-05 20:40] VITALS: BP 155/76; PULSE 73; RESP 18; O2SAT 98
--- OUTSIDE RECORDS SUMMARY | 2018-10-31 16:47 | XMS RPT_ITS ---
:1955 Author Organization OHIP Support Name Relationship Address Phone GOMES, PAULA Unavailable Unavailable + [place] [address] D Unavailable Unavailable Unavailable GOMES, PAULA Unavailable Unavailable + [place] [address] D Unavailable Unavailable Unavailable GOMES, PAULA Unavailable Unavailable + [place] [address] D Unavailable Unavailable Unavailable GOMES, PAULA Unavailable Unavailable + [place] [address] D Unavailable Unavailable Unavailable GOMES, PAULA Unavailable Unavailable + [place] [address] D Unavailable Unavailable Unavailable GOMES, PAULA Unavailable Unavailable + [place] [address] D Unavailable Unavailable Unavailable GOMES, PAULA Unavailable Unavailable + [place] [address] D Unavailable Unavailable Unavailable GOMES, PAULA Unavailable Unavailable + [place] [address] D Unavailable Unavailable Unavailable GOMES, PAULA Unavailable Unavailable + [place] [address] D Unavailable Unavailable Unavailable GOMES, PAULA Unavailable Unavailable + [place] [address] D Unavailable Unavailable Unavailable GOMES, PAULA Unavailable Unavailable + [place] [address] D Unavailable Unavailable Unavailable GOMES, PAULA Unavailable Unavailable + [place] [address] D Unavailable Unavailable Unavailable GOMES, PAULA Unavailable Unavailable + [place] [address] D Unavailable Unavailable Unavailable GOMES, PAULA Unavailable Unavailable + [place] [address] D Unavailable Unavailable Unavailable GOMES, PAULA Unavailable Unavailable + [place] [address] D Unavailable Unavailable Unavailable GOMES, PAULA Unavailable Unavailable + [place] [address] D Unavailable Unavailable Unavailable GOMES, PAULA Unavailable Unavailable + [place] [address] D Unavailable Unavailable Unavailable GOMES, PAULA Unavailable Unavailable + [place] [address] D Unavailable Unavailable Unavailable GOMES, PAULA Unavailable Unavailable + [place] [address] D Unavailable Unavailable Unavailable GOMES, PAULA Unavailable . + [place] [address] D Unavailable Unavailable Unavailable GOMES, PAULA Unavailable . + [place] [address] D Unavailable Unavailable Unavailable Care Team Providers [...] Admitting Unavailable Danielle, Marino Attending Unavailable Claudia, Dhara Primary Care Unavailable Danielle, Marino Consulting Unavailable [...] Z51.81 - Claudia, Active [place] Encounter for [facility] drug Hospital level monitoring Repository / Z51.81(ICD-10) 06/23/2018 Unknown Z79.899 - Other Joanna Vera Active [place] [facility] (current) drug Hospital therapy / Repository Z79.899(ICD-10) 01/10/2018 Unknown M79.89 - Other Roger Carney Active [place] specified soft [facility] / M79.89(ICD-10) Repository PROCEDURES PROCEDURES No Procedure Records FoundRESULTS RESULTS 12 LEAD ELECTROCARDIOGRAM Observed: 09/09/2018 Status: F Source: [place] 2:09 PM [facility] REPOSITORY [facility] Cardiovascular Services [address] [place] [address] 12 Lead EKG 09/05/18 1902 MR#: [id number] Acct: [id number] Name: AJIT GRIMALDO Rep #: [id number] : 1955 62 From: Moises Richard MD [...] ECG Confirmed by MATILDE ALSTON, MOISES ([id number]), online content editor DANNA LIZAMA ([id number]) on 09/09/2018 2:09:11 PM Referred By: Dhara Taylor Confirmed By:MOISES RICHARD MD 09/09/18 1409 Date Moises Richard MD CC: Dhara Taylor DO; Blayne Caldwell DO Signed DISCHARGE INSTRUCTION Observed: 09/06/2018 Status: F Source: [place] 4:15 PM [facility] REPOSITORY [facility] Medical Records Department [address] [place] [address] Discharge Instruction 09/06/18 1241 MR#: [id number] Acct: [id number] Name: AJIT GRIMALDO Rep #: [id number] : 1955 62 From: Reji Lovell MD [...] your Primary Care Provider. Call [facility] ([phone]) or report to the closest Emergency Room. Call 911 if necessary. 09/06/18 1615 <Electronically signed by Reji Lovell MD> Date Reji Lovell MD Cosigner Signature (If Indicated): Date CC: Dhara Taylor DO EMERGENCY DEPARTMENT Observed: 09/06/2018 Status: F Source: [place] SUMMARY 4:15 PM [facility] REPOSITORY [facility] Medical Records Department [address] [place] [address] Emergency Department Summary 09/06/18 1238 MR#: [id number] Acct: [id number] Name: AJIT GRIMALDO Rep #: [id number] : 1955 62 From: Reji Lovell MD PCP: Dhraa Taylor DO Status: DEP ER - ER [...] Epigastric pain This note was generated with L2C dictation software. It may contain incorrect words, [...] problems, contact your Primary Care Provider. Call [facility] ([phone]) or report to the closest Emergency Room. Call 911 if necessary. 09/06/18 1615 <Electronically signed by Reji Lovell MD> Date Reji Lovell MD Cosigner Signature (If Indicated): Date CC: Dhara Taylor DO DISCHARGE INSTRUCTION Observed: 09/05/2018 Status: F Source: [place] 8:30 PM [facility] REPOSITORY [facility] Medical Records Department [address] [address] Discharge Instruction 09/05/182028 MR#: [id number] Acct: [id number] Name: AJIT GRIMALDO Rep #: [id number] : 1955 62 From: Blayne Caldwell DO [...] your Primary Care Provider. Call [facility] ([phone]) or report to the closest Emergency Room. Call 911 if necessary. 09/05/18 2030 <Electronically signed by Blayne Caldwell DO> Date Blayne Caldwell DO Cosigner Signature (If Indicated): Date CC: Dhara Taylor DO EMERGENCY DEPARTMENT Observed: 09/05/2018 Status: F Source: [place] SUMMARY 8:29 PM [facility] REPOSITORY [facility] Medical Records Department [address] [place] [address] Emergency Department Summary 09/05/182023 MR#: [id number] Acct: [id number] Name: AJIT GRIMALDO Rep #: [id number] : 1955 62 From: Blayne Caldwell DO [...] and schizophrenia. Patient currently lives in a long term where they give him his medication daily [...] pain-etiology uncertain] This note was generated with L2C dictation software. It may contain incorrect words, [...] your Primary Care Provider. Call [facility] ([phone]) or report to the closest Emergency Room. Call 911 if necessary. 09/05/182028 <Electronically signed by Blayne Caldwell DO> Date Blayne Caldwell DO Cosigner Signature (If Indicated): Date CC: Dhara Taylor DO CBC W/DIFF, AUTOMATED Collected: 09/05/2018 Status: F Source: [place] 6:45 PM [facility] REPOSITORY TYPE CODE TESTS RESULT OUT OF [...] Lymph 1.80 Performed By: #### L100.0100 #### [facility] [address] [place] [address]. [place], [address] BASIC METABOLIC Collected: 09/05/2018 Status: F Source: [place] PROFILE (BMP) 6:45 PM [facility] REPOSITORY TYPE CODE TESTS RESULT OUT OF [...] 8 Performed By: #### L500.2500, L501.4010 #### [facility] [address] [place], [address] TROPONIN-I Collected: 09/05/2018 Status: F Source: [place] 6:45 PM [facility] REPOSITORY TYPE CODE TESTS RESULT OUT OF RANGE REFERENCE UNITS LAB L501.4010 <0.045 ng/mL Normal < 0.015 TROPONIN-I Result Comment: TROPONIN-I EXPECTED VALUES <0.045 Negative 0.045 - 0.590 Consistent with Cardiac Damage > OR = 0.600 Critical Value Not every elevated troponin is indicative of OR. These values should be used with clinical judgement in examining the patient's clinical picture for diagnosis. To establish a diagnosis of OR versus myocardial injury, there must be a demonstrated rise and/or fall in the troponin values, in addition to ischemic symptoms, EKG changes, new regional wall motion abnormality, and/or angiographical evidence. PLEASE NOTE: REFERENCE RANGES EDITED 18 Performed By: #### L500.2500, L501.4010 #### [facility] [address] [place], [place], [address] VALPROIC ACID Collected: 09/05/2018 Status: F Source: [place] (DEPAKENE) LEVEL 6:45 PM [facility] REPOSITORY TYPE CODE TESTS RESULT OUT OF RANGE REFERENCE UNITS LAB L501.8100 50-100 ug/mL Normal VALPROIC ACID 58 Performed By: #### L501.8100 #### [facility] [address] [place], [address] CHEST 1 VIEW Observed: 09/05/2018 Status: F Source: [place] (PORTABLE) 6:38 PM [facility] REPOSITORY [facility] Imaging Services [address] [place] [address] Chest 1 View (Portable) MR#: [id number] Acct: [id number] Name: AJIT GRIMALDO Rep #: [id number] : 1955 M 62 From: Vladimir Pandya MD PCP: Dhara Taylor DO Status: REG ER Study: Chest 1 View (Portable) Date of Exam: 09/05/18 Exam# [id number] Ordering Dr: Blayne Caldwell DO STUDY: X-RAY [...] CC: Dhara Taylor DO; Blayne Caldwell DO Criminal Researcher: Signed BASIC METABOLIC Collected: 09/02/2018 Status: F Source: [place] PROFILE (BMP) 10:30 AM [facility] REPOSITORY TYPE CODE TESTS RESULT OUT OF [...] GAP 7 Performed By: #### L500.2500 #### [facility] [address] [place], [address] PLATELET COUNT Collected: 06/23/2018 Status: F Source: [place] 11:21 AM [facility] REPOSITORY TYPE CODE TESTS RESULT OUT OF RANGE REFERENCE UNITS LAB L100.1900 150-450 K/mm3 Normal PLT 182 Performed By: #### L100.1900 #### [facility] [address] [place], [address] AMMONIA Collected: 06/23/2018 Status: F Source: [place] 11:21 AM [facility] REPOSITORY TYPE CODE TESTS RESULT OUT OF RANGE REFERENCE UNITS LAB L503.5510 11-32 umol/L Normal AMMONIA 12.0 Performed By: #### L503.5510 #### [facility] [address] [place], [address] VALPROIC ACID Collected: 06/23/2018 Status: F Source: [place] (DEPAKENE) LEVEL 11:21 AM [facility] REPOSITORY TYPE CODE TESTS RESULT OUT OF RANGE REFERENCE UNITS LAB L501.8100 50-100 ug/mL Normal VALPROIC ACID 87 Performed By: #### L501.8100 #### [facility] [address] [place], [address] AST(SGOT) Collected: 06/23/2018 Status: F Source: [place] 11:21 AM [facility] REPOSITORY TYPE CODE TESTS RESULT OUT OF RANGE REFERENCE UNITS LAB L501.4100 15-37 U/L Normal AST 19 Performed By: #### L501.4100, L501.4405, L3100.5420 #### [facility] [address] [facility] [place] [address] ALANINE AMINOTRANSFERAS Collected: 06/23/2018 Status: F Source: [place] (SGPT) 11:21 AM [facility] REPOSITORY TYPE CODE TESTS RESULT OUT OF RANGE REFERENCE UNITS LAB L501.4405 16-61 U/L Low ALT 14 Performed By: #### L501.4100, L501.4405, L3100.5420 #### [facility] [address] [place], [address] PROLACTIN Collected: 06/23/2018 Status: F Source: [place] 11:21 AM [facility] REPOSITORY TYPE CODE TESTS RESULT OUT OF RANGE REFERENCE UNITS LAB L3100.5420 ng/mL Normal PROLACTIN 20.8 Result Comment: NORMAL REFERENCE RANGES FEMALE NON- 2.2 - 30.3 ng/mL 8.1 - 347.6 ng/mL POST-MENOPAUSAL 0.7 - 31.5 ng/mL MALE 2.5 - 17.4 ng/mL NEW TEST METHOD AND REFERENCE RANGES FEBRUARY 25, 2012 Performed By: #### L501.4100, L501.4405, L3100.5420 #### [facility] [address] [place], [address] 12 LEAD ELECTROCARDIOGRAM Observed: 05/12/2018 Status: F Source: [place] 2:17 PM [facility] REPOSITORY [facility] Cardiovascular Services [address] [place] [address] 12 Lead EKG 05/08/18 1757 MR#: [id number] Acct: [id number] Name: AJIT GRIMALDO Rep #: [id number] : 1955 62 From: Ajit Benavidez MD Attending Dr: Hemant Sow DO Status: DIS FRANCK Ordering Dr: Petrona Rios MD Date: 05/08/18 Location: [facility] Sex: M C Admitted: 05/08/18 Test Reason : CONFUSION Blood Pressure : / mmHG Vent. Rate : 067 BPM Atrial Rate : 067 BPM P-R Int : 152 ms QRS Dur : 084 ms QT Int : 402 ms P-R-T Axes : 077 059 067 degrees QTc Int : 424 ms Normal sinus rhythm Normal ECG Confirmed by PRAMOD ALSTON, AJIT ([id number]), online content editor DANNA LIZAMA ([id number]) on 05/12/2018 2:17:00 PM Referred By: EDI Confirmed By:AJIT BENAVIDEZ MD 05/12/18 1417 Date Ajit Benavidez MD CC: Petrona Rios MD; Hemant Sow DO; Dhara Taylor DO Signed DISCHARGE SUMMARY Observed: 05/10/2018 Status: F Source: [place] 12:47 PM [facility] REPOSITORY [facility] Medical Records Department [address] [place] [address] Discharge Summary 05/10/18 1244 MR#: [id number] Acct: [id number] Name: AJIT GRIMALDO Rep #: [id number] : 1955 62 From: Hemant Sow DO PCP: Dhara Taylor DO Status: ADM FRANCK Y Location: [place] [address] Discharge Date and Diagnosis - Problem List [...] old M presents with behavior changes from long term. Patient had no focal deficits. And her [...] Patient will be returning back to his long term in stable condition. [] Discharge Diet: No [...] applicable Code Visit Inpatient E AND M: 48898 Disch Hosp 05/10/18 1247 <Electronically signed by Hemant Sow DO> Date Hemant Sow DO Cosigner Signature (if applicable): Date CC: Hemant Sow DO; Dhara Taylor DO Signed DISCHARGE INSTRUCTION Observed: 05/10/2018 Status: F Source: [place] 12:44 PM [facility] REPOSITORY [facility] Medical Records Department [address] [place] [address] Instructions for Home/Discharge Instructions 05/10/18 1241 MR#: [id number] Acct: [id number] Name: AJIT GRIMALDO Rep #: [id number] : 1955 62 From: Hemant Sow DO [...] 05/10/2018 Status: F Source: [place] 11:17 AM [facility] REPOSITORY TYPE CODE TESTS RESULT OUT OF RANGE REFERENCE UNITS LAB L501.080 70-110 mg/dL Normal BEDSIDE GLU 94 Result Comment: MANAGEMENT OF PATIENT CARE PER NURSING PROTOCOL Performed By: #### L501.080 #### [facility] Point of Care [address] [place] [address] BEDSIDE GLUCOSE Collected: 05/10/2018 Status: F Source: [place] 6:53 AM [facility] REPOSITORY TYPE CODE TESTS RESULT OUT OF RANGE REFERENCE UNITS LAB L501.080 70-110 mg/dL Normal BEDSIDE GLU 97 Result Comment: MANAGEMENT OF PATIENT CARE PER NURSING PROTOCOL Performed By: #### L501.080 #### [facility] Point of Care [address] [place] [address] BEDSIDE GLUCOSE Collected: 05/09/2018 Status: F Source: [place] 9:47 PM [facility] REPOSITORY TYPE CODE TESTS RESULT OUT OF REFERENCE UNITS RANGE LAB L501.080 70-110 mg/dL High BEDSIDE GLU 117 Result Comment: MANAGEMENT OF PATIENT CARE PER NURSING PROTOCOL Performed By: #### L501.080 #### [facility] Point of Care [address] [place] [address] ECHOCARDIOGRAM COMPLETE Observed: 05/09/2018 Status: F Source: [place] 5:36 PM [facility] REPOSITORY [facility] Cardiovascular Services [address] [place] [address] Echo Complete 05/09/18 1316 MR#: [id number] Acct: [id number] Name: AJIT GRIMALDO Rep #: [id number] : 1955 62 From: Ajit Benavidez MD [...] Ordering Physician: Kristal [place] Referring Physician: Dhara aTylor M.D. Performed By: Chata Dalal CLIFF 05/09/18 1736 Date Ajit Benavidez MD CC: Kristal Taylor DO; Marino Santos DO Date Dictated: 05/09/18 1316 Date Transcribed: 05/09/18 3568 Criminal Researcher: Signed BEDSIDE GLUCOSE Collected: 05/09/2018 Status: F Source: [place] 4:58 PM [facility] REPOSITORY TYPE CODE TESTS RESULT OUT OF RANGE REFERENCE UNITS LAB L501.080 70-110 mg/dL Normal BEDSIDE GLU 108 Result Comment: MANAGEMENT OF PATIENT CARE PER NURSING PROTOCOL Performed By: #### L501.080 #### [facility] Point of Care [address] [place] [address] AMMONIA Collected: 05/09/2018 Status: F Source: [place] 2:35 PM [facility] REPOSITORY TYPE CODE TESTS RESULT OUT OF REFERENCE UNITS RANGE LAB L503.5510 11-32 umol/L High AMMONIA 35.0 Performed By: #### L503.5510 #### [facility] [address] [place], [address] BEDSIDE GLUCOSE Collected: 05/09/2018 Status: F Source: [place] 12:05 PM [facility] REPOSITORY TYPE CODE TESTS RESULT OUT OF REFERENCE UNITS RANGE LAB L501.080 70-110 mg/dL High BEDSIDE GLU 129 Result Comment: MANAGEMENT OF PATIENT CARE PER NURSING PROTOCOL Performed By: #### L501.080 #### [facility] Point of Care [address] [place] [address] BEDSIDE GLUCOSE Collected: 05/09/2018 Status: F Source: [place] 6:39 AM [facility] REPOSITORY TYPE CODE TESTS RESULT OUT OF RANGE REFERENCE UNITS LAB L501.080 70-110 mg/dL Normal BEDSIDE GLU 87 Result Comment: MANAGEMENT OF PATIENT CARE PER NURSING PROTOCOL Performed By: #### L501.080 #### [facility] Point of Care [address] [place] [address] BASIC METABOLIC Collected: 05/09/2018 Status: F Source: [place] PROFILE (BMP) 5:28 AM [facility] REPOSITORY TYPE CODE TESTS RESULT OUT OF [...] 7 Performed By: #### L500.2500, L500.4100 #### [facility] [address] [place], [place], [address] LIPID PROFILE Collected: 05/09/2018 Status: F Source: [place] 5:28 AM [facility] REPOSITORY TYPE CODE TESTS RESULT OUT OF [...] 18 Performed By: #### L500.2500, L500.4100 #### [facility] [address] [place], [place], [address] VITAMIN B12 Collected: 05/08/2018 Status: F Source: [place] 11:03 PM [facility] REPOSITORY TYPE CODE TESTS RESULT OUT OF REFERENCE UNITS RANGE LAB L503.0105 211-911 pg/mL High Vitamin B12 941 Performed By: #### L503.0105 #### [facility] [address] [place], [address] AMMONIA Collected: 05/08/2018 Status: F Source: [place] 10:56 PM [facility] REPOSITORY TYPE CODE TESTS RESULT OUT OF REFERENCE UNITS RANGE LAB L503.5510 11-32 umol/L High AMMONIA 48.0 Performed By: #### L503.5510 #### [facility] [address] [place], [address] LIVER PROFILE Collected: 05/08/2018 Status: F Source: [place] 10:56 PM [facility] REPOSITORY TYPE CODE TESTS RESULT OUT OF [...] Performed By: #### L500.3400, L501.5200, L506.0250 #### [facility] [address] [place], [address] MAGNESIUM Collected: 05/08/2018 Status: F Source: [place] 10:56 PM [facility] REPOSITORY TYPE CODE TESTS RESULT OUT OF RANGE REFERENCE UNITS LAB L501.5200 1.6-2.6 mg/dL Normal MG 1.9 Performed By: #### L500.3400, L501.5200, L506.0250 #### [facility] [address] [place], [address] FOLATES, (FOLIC ACID) Collected: 05/08/2018 Status: F Source: [place] 10:56 PM [facility] REPOSITORY TYPE CODE TESTS RESULT OUT OF RANGE REFERENCE UNITS LAB L506.0250 3.1-55.4 ng/mL Normal FOLATES 31.10 Performed By: #### L500.3400, L501.5200, L506.0250 #### [facility] [address] [place], [address] HEMOGLOBIN A1C Collected: 05/08/2018 Status: F Source: [place] 10:56 PM [facility] REPOSITORY TYPE CODE TESTS RESULT OUT OF RANGE REFERENCE UNITS LAB L501.9985 4.2-6.3 % Normal HGB A1C 5.2 Performed By: #### L501.9985 #### [facility] [address] [place], [address] BEDSIDE GLUCOSE Collected: 05/08/2018 Status: F Source: [place] 10:42 PM [facility] REPOSITORY TYPE CODE TESTS RESULT OUT OF REFERENCE UNITS RANGE LAB L501.080 70-110 mg/dL High BEDSIDE GLU 137 Result Comment: MANAGEMENT OF PATIENT CARE PER NURSING PROTOCOL Performed By: #### L501.080 #### [facility] Point of Care [address] [place] [address] BRAIN WITHOUT Observed: 05/08/2018 Status: F Source: [place] CONTRAST 10:30 PM [facility] REPOSITORY [facility] Imaging Services [address] [place] [address] Brain without Contrast MR#: [id number] Acct: [id number] Name: AJIT GRIMALDO Rep #: [id number] : 1955 M 62 From: Gaby Lizama MD PCP: Dhara Taylor DO Status: ADM FRANCK Study: Brain without Contrast Date of Exam: 05/09/18 Exam# [id number] Ordering Dr: Kristal Larsen STUDY: MRI BRAIN [...] , CC: Kristal Larsen; Dhara Taylor DO Criminal Researcher: Signed MRA HEAD ONLY WITHOUT Observed: 05/08/2018 Status: F Source: [place] CONTRAST 10:30 PM [facility] REPOSITORY [facility] Imaging Services [facility] [place] [address] MRA Head ONLY without Contrast MR#: [id number] Acct: [id number] Name: AJIT GRIMALDO Rep #: [id number] : 1955 M 62 From: Gaby Lizama MD PCP: Dhara Taylor DO Status: ADM FRANCK Study: MRA Head ONLY without Contrast Date of Exam: 05/09/18 Exam# [id number] Ordering Dr: Kristal Larsen STUDY: MRA OF THE HEAD WITHOUT CONTRAST REASON FOR EXAM: Male, 62 years old. Increasing confusion over the last 3-4 months. TECHNIQUE: 3-D fwar-ld-rhiyxw (TOF) imaging was performed with MIPs. The [...] Service support , CC: Kristal Taylor DO Criminal Researcher: Signed MRA NECK WITHOUT Observed: 05/08/2018 Status: F Source: [place] CONTRAST 10:30 PM [facility] REPOSITORY [facility] Imaging Services [address] [place] [address] MRA Neck without Contrast MR#: [id number] Acct: [id number] Name: AJIT GRIMALDO Rep #: [id number] : 1955 M 62 From: Gaby Lizama MD PCP: Dhara Taylor DO Status: ADM FRANCK Study: MRA Neck without Contrast Date of Exam: 05/09/18 Exam# [id number] Ordering Dr: Kristal Larsen STUDY: MRA NECK [...] , CC: Kristal Larsen; Dhara Taylor DO Criminal Researcher: Signed HISTORY AND PHYSICAL Observed: 05/08/2018 Status: F Source: [place] EXAM 9:40 PM [facility] REPOSITORY [facility] Medical Records Department [address] [place] [address] History and Physical 05/08/182104 MR#: [id number] Acct: [id number] Name: AJIT GRIMALDO Rep #: [id number] : 1955 62 From: Kristal Larsen PCP: [...] diabetes mellitus Status: Chronic Qualifiers: Diabetes mellitus mcc insulin use: without exterminator termite use Diabetes mellitus complication status: without complication Qualified Code(s): E11.9 - Type 2 diabetes mellitus without complications (6) Bilateral leg edema Status: Chronic History of Present Illness Date of Admission: 05/08/18 Chief Complaint: Worsened confusion The patient is a 62 y/o M, Living in [facility] w/ PMHx: Schizophrenia w/ Prior Suicide Attempts, [...] be performed who now re-presents to the [facility] ED on 05/08/18 with confusion and noted auditory hallucinations with long term confirmed taking his schizophrenia medications, failure to understand how to perform basic tasks he normally performs over the last 48 hours with PCP and half-way discussion with patient and now willingness to have MRI performed. half-way notes that this is very different from [...] Anxiety, Depression, Prior suicide attempt, Schizophrenia Lives: Longterm Smoking Status: Current every day smoker Tobacco [...] is a 62 y/o M, Living in [facility] w/ PMHx: Schizophrenia w/ Prior Suicide Attempts, Tobacco use, Chronic COPD, Diabetes mellitus type II, CHF Unclear Type, PVD w/ chronic BL LE lymphedema, LLE Venous Stasis Ulcer [facility] who [facility] ED on 05/08/18 with confusion and noted auditory hallucinations with half-way confirmed taking his schizophrenia medications, failure to understand how to perform basic tasks he normally performs over the last 48 hours with PCP and half-way discussion with patient and now willingness to [...] Lovenox. Code Visit OBSV E AND M: 10182 Initial observation care L3 05/08/180 <Electronically signed by Kristal Larsen > Date Kristal Larsen Cosigner Signature: Date (if applicable) CC: Kristal Larsen; Dhara Taylor DO Signed EMERGENCY DEPARTMENT Observed: 05/08/2018 Status: F Source: [place] SUMMARY 9:29 PM [facility] REPOSITORY [facility] Medical Records Department [address] [place] [address] Emergency Department Summary 05/08/18 1748 MR#: [id number] Acct: [id number] Name: AJIT GRIMALDO Rep #: [id number] : 1955 62 From: Petrona Rios MD PCP: Dhara Taylor DO Status: REG ER - ER Visit Summary Date of Service: 05/08/18 Chief Complaint: Confusion History of Present Illness: The patient is a 62 M presenting with intermittent confusion. His staff member from his long term states that he has been confused intermittently since April 16. He was admitted at that time for TIA workup. During that admission patient refused MRI. He was seen again in the ED on May 02 for continued intermittent confusion. He refused MRI during the ED stay as well. Today long term discussed with his primary care physician Dr. Taylor who feels the patient needs an MRI according to long term staff and the patient. The patient is now agreeable to MRI. He was advised to come to the ED for further evaluation. half-way staff states that he has been having [...] status, TIA This note was generated with L2C dictation software. It may contain incorrect words, [...] your Primary Care Provider. Call [facility] ([phone]) or report to the closest Emergency Room. Call 911 if necessary. 05/08/182128 <Electronically signed by Petrona Rios MD> Date Petrona Rios MD Cosigner Signature (If Indicated): Date CC: Dhara Taylor DO BEDSIDE GLUCOSE Collected: 05/08/2018 Status: F Source: [place] 6:17 PM [facility] REPOSITORY TYPE CODE TESTS RESULT OUT OF RANGE REFERENCE UNITS LAB L501.080 70-110 mg/dL Normal BEDSIDE GLU 74 Result Comment: MANAGEMENT OF PATIENT CARE PER NURSING PROTOCOL Performed By: #### L501.080 #### [facility] Laboratory Point of Care [address] [place] [address] URINE DRUG SCREEN Collected: 05/08/2018 Status: F Source: [place] (V[place]A) 6:11 PM [facility] REPOSITORY TYPE CODE TESTS RESULT OUT OF [...] Normal NEGATIVE Performed By: #### L505.5000 #### [facility] [address] [place], [address] URINALYSIS, COMPLETE Collected: 05/08/2018 Status: F Source: [place] 6:11 PM [facility] REPOSITORY Order Comment: Order Date: 05/08/18 How [...] URINE SEEN Performed By: #### L400.0001 #### [facility] [address] [place], [address] CBC W/DIFF, AUTOMATED Collected: 05/08/2018 Status: F Source: [place] 5:56 PM [facility] REPOSITORY TYPE CODE TESTS RESULT OUT OF [...] Lymph 1.81 Performed By: #### L100.0100 #### [facility] [address] [place], [address] PROTHROMBIN TIME W/INR Collected: 05/08/2018 Status: F Source: [place] 5:56 PM [facility] REPOSITORY TYPE CODE TESTS RESULT OUT OF RANGE REFERENCE UNITS LAB L300.4150 11.7-14.9 SECONDS High PROTIME 15.4 LAB L300.4200 Normal INR 1.2 Performed By: #### L300.3900, L300.4310 #### [facility] [address] [place], [address] PARTIAL THROMBOPLAST Collected: 05/08/2018 Status: F Source: [place] TIME 5:56 PM [facility] REPOSITORY TYPE CODE TESTS RESULT OUT OF RANGE REFERENCE UNITS LAB L300.4310 24.1-36.2 Seconds Normal PTT 30.4 Performed By: #### L300.3900, L300.4310 #### [facility] [address] [place], [place], [address] VALPROIC ACID Collected: 05/08/2018 Status: F Source: [place] (DE[place]KEN[place]) LEVEL 5:56 PM [facility] REPOSITORY TYPE CODE TESTS RESULT OUT OF RANGE REFERENCE UNITS LAB L501.8100 50-100 ug/mL Normal VALPROIC ACID 85 Performed By: #### L501.8100, L501.9100 #### [facility] [address] [place], [address] ALCOHOL, BLOOD Collected: 05/08/2018 Status: F Source: [place] (MEDICAL)-SERUM 5:56 PM [facility] REPOSITORY TYPE CODE TESTS RESULT OUT OF [...] coma Performed By: #### L501.8100, L501.9100 #### [facility] [address] [place], [place], [address] BASIC METABOLIC Collected: 05/08/2018 Status: F Source: [place] PROFILE (BMP) 5:56 PM [facility] REPOSITORY TYPE CODE TESTS RESULT OUT OF [...] 3 Performed By: #### L500.2500, L501.4010 #### [facility] [address] [place], [address] TROPONIN-I Collected: 05/08/2018 Status: F Source: [place] 5:56 PM [facility] REPOSITORY TYPE CODE TESTS RESULT OUT OF RANGE REFERENCE UNITS LAB L501.4010 <0.045 ng/mL Normal < 0.015 TROPONIN-I Result Comment: TROPONIN-I EXPECTED VALUES <0.045 Negative 0.045 - 0.590 Consistent with Cardiac Damage > OR = 0.600 Critical Value Not every elevated troponin is indicative of OR. These values should be used with clinical judgement in examining the patient's clinical picture for diagnosis. To establish a diagnosis of OR versus myocardial injury, there must be a demonstrated rise and/or fall in the troponin values, in addition to ischemic symptoms, EKG changes, new regional wall motion abnormality, and/or angiographical evidence. PLEASE NOTE: REFERENCE RANGES EDITED 18 Performed By: #### L500.2500, L501.4010 #### [facility] [address] [place], [address] BRAIN/HEAD WITHOUT Observed: 05/08/2018 Status: F Source: [place] CONTRAST 5:42 PM [facility] REPOSITORY [facility] Imaging Services [address] [place] [address] Brain/Head without Contrast MR#: [id number] Acct: [id number] Name: AJIT GRIMALDO Rep #: [id number] : 1955 62 From: Lorne Augustine MD PCP: Dhara Taylor DO Status: REG ER Study: Brain/Head without Contrast Date of Exam: 05/08/18 Exam# [id number] Ordering Dr: Petrona Rios MD STUDY: CT [...] CC: Petrona Rios MD; Dhara Taylor DO Criminal Researcher: Signed CHEST 1 VIEW Observed: 05/08/2018 Status: F Source: [place] 5:42 PM [facility] REPOSITORY [facility] Imaging Services [address] [place] [address] Chest 1 View MR#: [id number] Acct: [id number] Name: AJIT GRIMALDO Rep #: [id number] : 1955 M 62 From: Lorne Augustine MD PCP: Dhara Taylor DO Status: REG ER Study: Chest 1 View Date of Exam: 05/08/18 Exam# [id number] Ordering Dr: Petrona Rios MD STUDY: X-RAY [...] CC: Petrona Rios MD; Dhara Taylor DO Criminal Researcher: Signed 12 LEAD ELECTROCARDIOGRAM Observed: 05/06/2018 Status: F Source: [place] 2:30 PM [facility] REPOSITORY [facility] Cardiovascular Services [address] [place] [address] 12 Lead EKG 05/02/18 1555 MR#: [id number] Acct: [id number] Name: AJIT GRIMALDO Rep #: [id number] : 1955 62 From: Ajit Benavidez MD [...] ECG Confirmed by PRAMOD ALSTON, AJIT ([id number]), online content editor DANNA LIZAMA ([id number]) on 05/06/2018 2:29:59 PM Referred By: VAISHALI Confirmed By:AJIT BENAVIDEZ MD 05/06/18 1430 Date Ajit Benavidez MD CC: Gabriela Barrett MD; Dhara Taylor DO Signed EMERGENCY DEPARTMENT Observed: 05/03/2018 Status: F Source: [place] SUMMARY 12:28 AM [facility] REPOSITORY [facility] Medical Records Department [address] [place] [address] Emergency Department Summary 05/02/18 1648 MR#: [id number] Acct: [id number] Name: AJIT GRIMALDO Rep #: [id number] : 1955 62 From: Gabriela Barrett MD [...] presentation is not typical of his psychosis. half-way staff member describes confusion with normal tasks [...] the week. Patient was monitored at the long term over the weekend. I did speak with Dr. Carter to update her on the patient's findings and plan as the patient was sent in by Dr. Taylor. Treatment Plan: [] Disposition: Discharge Impression: 1. Reported slurred speech, resolved 2. Schizoaffective disorder This note was generated with L2C dictation software. It may contain incorrect words, [...] your Primary Care Provider. Call [facility] ([phone]) or report to the closest Emergency Room. Call 911 if necessary. 05/03/18 0028 <Electronically signed by Gabriela Barrett MD> Date Gabriela Barrett MD Cosigner Signature (If Indicated): Date CC: Dhara Taylor DO DISCHARGE INSTRUCTION Observed: 05/02/2018 Status: F Source: [place] 10:37 PM [facility] REPOSITORY [facility] Medical Records Department [address] [place] [address] Discharge Instruction 05/02/182233 MR#: [id number] Acct: [id number] Name: AJIT GRIMALDO Rep #: [id number] : 1955 62 From: Gabriela Barrett MD [...] your Primary Care Provider. Call [facility] ([phone]) or report to the closest Emergency Room. Call 911 if necessary. 05/02/182236 <Electronically signed by Gabriela Barrett MD> Date Gabriela Gomez Signature (If Indicated): Date CC: Dhara Taylor DO URINE DRUG SCREEN Collected: 05/02/2018 Status: F Source: [place] [facility] 5:00 PM [facility] REPOSITORY Order Comment: Order Date: 05/02/18 TYPE [...] Normal NEGATIVE Performed By: #### L505.5000 #### [facility] [address] [place], [address] URINALYSIS, COMPLETE Collected: 05/02/2018 Status: F Source: [place] 5:00 PM [facility] REPOSITORY Order Comment: Order Date: 05/02/18 How [...] URINE SEEN Performed By: #### L400.0001 #### [facility] [address] [place], [place], [address] CBC W/DIFF, AUTOMATED Collected: 05/02/2018 Status: F Source: [place] 5:00 PM [facility] REPOSITORY TYPE CODE TESTS RESULT OUT OF [...] Lymph 1.48 Performed By: #### L100.0100 #### [facility] [address] [place], [place], [address] ALCOHOL, BLOOD Collected: 05/02/2018 Status: F Source: [place] (MEDICAL)-SERUM 5:00 PM [facility] REPOSITORY TYPE CODE TESTS RESULT OUT OF [...] fatal coma Performed By: #### L501.9100 #### [facility] [address] [place], [place], [address] BASIC METABOLIC Collected: 05/02/2018 Status: F Source: [place] PROFILE (BMP) 5:00 PM [facility] REPOSITORY TYPE CODE TESTS RESULT OUT OF [...] Performed By: #### L500.2500, L500.3400, L501.4010 #### [facility] [address] [place], [address] LIVER PROFILE Collected: 05/02/2018 Status: F Source: [place] 5:00 PM [facility] REPOSITORY TYPE CODE TESTS RESULT OUT OF [...] Performed By: #### L500.2500, L500.3400, L501.4010 #### [facility] [address] [place], [address] TROPONIN-I Collected: 05/02/2018 Status: F Source: [place] 5:00 PM [facility] REPOSITORY TYPE CODE TESTS RESULT OUT OF RANGE REFERENCE UNITS LAB L501.4010 <0.045 ng/mL Normal < 0.015 TROPONIN-I Result Comment: TROPONIN-I EXPECTED VALUES <0.045 Negative 0.045 - 0.590 Consistent with Cardiac Damage > OR = 0.600 Critical Value Not every elevated troponin is indicative of OR. These values should be used with clinical judgement in examining the patient's clinical picture for diagnosis. To establish a diagnosis of OR versus myocardial injury, there must be a demonstrated rise and/or fall in the troponin values, in addition to ischemic symptoms, EKG changes, new regional wall motion abnormality, and/or angiographical evidence. PLEASE NOTE: REFERENCE RANGES EDITED 18 Performed By: #### L500.2500, L500.3400, L501.4010 #### [facility] [address] [place], [address] VALPROIC ACID Collected: 05/02/2018 Status: F Source: [place] ([place]KEN[place]) LEVEL 4:43 PM [facility] REPOSITORY TYPE CODE TESTS RESULT OUT OF RANGE REFERENCE UNITS LAB L501.8100 50-100 ug/mL Normal VALPROIC ACID 63 Performed By: #### L501.8100 #### [facility] [address] [place], [address] BRAIN/HEAD WITHOUT Observed: 05/02/2018 Status: F Source: [place] CONTRAST 4:43 PM [facility] REPOSITORY [facility] Imaging Services [address] [place] [address] Brain/Head without Contrast MR#: [id number] Acct: [id number] Name: AJIT GRIMALDO Rep #: [id number] : 1955 M 62 From: Edenilson Hernandez MD PCP: Dhara Taylor DO Status: REG ER Study: Brain/Head without Contrast Date of Exam: 05/02/18 Exam# [id number] Ordering Dr: Gabriela Barrett MD STUDY: CT [...] CC: Gabriela Barrett MD; Dhara Taylor DO Criminal Researcher: Signed 12 LEAD ELECTROCARDIOGRAM Observed: 04/22/2018 Status: F Source: [place] 2:41 PM [facility] REPOSITORY [facility] Cardiovascular Services [address] [address] 12 Lead EKG 04/16/18 1636 MR#: [id number] Acct: [id number] Name: AJIT GRIMALDO Rep #: [id number] : 1955 62 From: Moises Richard MD Attending Dr: Marino Santos DO Status: DIS FRANCK Ordering Dr: Petrona Rios MD Date: 04/16/18 Location: [facility] Sex: M C Admitted: 04/16/18 Test Reason : NERUO Blood Pressure : / mmHG Vent. Rate : 077 BPM Atrial Rate : 077 BPM P-R Int : 148 ms QRS Dur : 086 ms QT Int : 380 ms P-R-T Axes : 075 054 069 degrees QTc Int : 430 ms Normal sinus rhythm Normal ECG Confirmed by MOISES RICHARD MD ([id number]), online content editor DANNA LIZAMA ([id number]) on 04/22/2018 2:40:45 PM Referred By: EDI Confirmed By:MOISES RICHARD MD 04/22/18 1440 Date Moises Richard MD CC: Petrona Rios MD; Dhara Taylor DO; Marino Santos DO Signed DISCHARGE SUMMARY Observed: 04/17/2018 Status: F Source: [place] 3:51 PM [facility] REPOSITORY [facility] Medical Records Department [address] [place] [address] Discharge Summary 04/17/18 1547 MR#: [id number] Acct: [id number] Name: AJIT GRIMALDO Rep #: [id number] : 1955 62 From: Marino Santos DO PCP: Dhara Taylor DO Status: DIS FRANCK Y [id number] Discharge Date and Diagnosis Date of Admission: 04/16/18 Date of Discharge: 04/17/18 - Primary Discharge Diagnosis #1 slurred ydbias-miiinqauq-sdmgxxkk unclear #2 schizophrenia #3 type 2 diabetes [...] M seen in the emergency room at [facility] after being sent in from a long term at which she resides due to a [...] was stable for discharge back to the long term. The exact cause of the episode of slurred speech was unknown. On 04/17/18, patient was seen and examined and felt to be in stable condition for discharge back to his long term Discharge Activity: Return to Normal Activity Weight [...] applicable Code Visit OBSV E AND M: 14426 Observation care discharge 04/17/18 0921 <Electronically signed by Marino Santos DO> Date Marino Santos DO Cosigner Signature (if applicable): Date CC: Dhara Taylor DO; Marino Santos DO Signed DISCHARGE INSTRUCTION Observed: 04/17/2018 Status: F Source: [place] 9:53 AM [facility] REPOSITORY [facility] Medical Records Department [address] [place] [address] Instructions for Home/Discharge Instructions 04/17/18 0952 MR#: [id number] Acct: [id number] Name: AJIT GRIMALDO Rep #: [id number] : 1955 62 From: Marino Santos DO [...] BEDSIDE GLUCOSE Collected: 04/17/2018 Status: F Source: [place] 6:52 AM [facility] REPOSITORY TYPE CODE TESTS RESULT OUT OF RANGE REFERENCE UNITS LAB L501.080 70-110 mg/dL Normal BEDSIDE GLU 98 Result Comment: MANAGEMENT OF PATIENT CARE PER NURSING PROTOCOL Performed By: #### L501.080 #### [facility] Point of Care [facility] [place] [address] LIPID PROFILE Collected: 04/17/2018 Status: F Source: [place] 6:52 AM [facility] REPOSITORY TYPE CODE TESTS RESULT OUT OF [...] VLDL 21 Performed By: #### L500.4100 #### [facility] [address] [place], [address] HISTORY AND PHYSICAL Observed: 04/16/2018 Status: F Source: [place] EXAM 11:52 PM [facility] REPOSITORY [facility] Medical Records Department [address] [place] [address] History and Physical 04/16/18 1854 MR#: [id number] Acct: [id number] Name: AJIT GRIMALDO Rep #: [id number] : 1955 62 From: Samuel Cervantes MD PCP: Dhara Taylor DO Status: ADM FRANCK Y Location: [place] [address] Problem List (1) TIA (transient ischemic attack) Status: Acute History of Present Illness Date of Admission: 04/16/18 Chief Complaint: slurred speech The patient is a 62 year old M with a significant history of COPD, schizophrenia, diabetes who was sent from a long term because of slurred speech. He presented to [...] schizophrenia, diabetes who was sent from a long term because of slurred speech which resolved whiles [...] provide appropriate information. Unable to reach emergency personal lines account executive. Case management consult. DVT prophylaxis subcutaneous heparin. Code Visit Inpatient E AND M: 45736 Init Hosp L2 04/16/18 7597 <Electronically signed by Samuel Cervantes MD> Date Samuel Cervantes MD Cosigner Signature: Date (if applicable) CC: Samuel Cervantes MD; Dhara Taylor DO Signed BEDSIDE GLUCOSE Collected: 04/16/2018 Status: F Source: [place] 9:55 PM [facility]PITAL REPOSITORY TYPE CODE TESTS RESULT OUT OF RANGE REFERENCE UNITS LAB L501.080 70-110 mg/dL Normal BEDSIDE GLU 80 Result Comment: MANAGEMENT OF PATIENT CARE PER NURSING PROTOCOL Performed By: #### L501.080 #### [facility] Point of Care [address] [place] [address] TROPONIN-I Collected: 04/16/2018 Status: F Source: [place] 7:27 PM [facility] REPOSITORY TYPE CODE TESTS RESULT OUT OF RANGE REFERENCE UNITS LAB L501.4010 <0.045 ng/mL Normal < 0.015 TROPONIN-I Result Comment: TROPONIN-I EXPECTED VALUES <0.045 Negative 0.045 - 0.590 Consistent with Cardiac Damage > OR = 0.600 Critical Value Not every elevated troponin is indicative of OR. These values should be used with clinical judgement in examining the patient's clinical picture for diagnosis. To establish a diagnosis of OR versus myocardial injury, there must be a demonstrated rise and/or fall in the troponin values, in addition to ischemic symptoms, EKG changes, new regional wall motion abnormality, and/or angiographical evidence. PLEASE NOTE: REFERENCE RANGES EDITED 18 Performed By: #### L501.4010 #### [facility] [address] [place], [address] ALCOHOL, BLOOD Collected: 04/16/2018 Status: F Source: [place] (MEDICAL)-SERUM 7:27 PM [facility] REPOSITORY TYPE CODE TESTS RESULT OUT OF [...] fatal coma Performed By: #### L501.9100 #### [facility] [address] [place], [address] EMERGENCY DEPARTMENT Observed: 04/16/2018 Status: F Source: [place] SUMMARY 6:37 PM [facility] REPOSITORY [facility] Medical Records Department [address] [place] [address] Emergency Department Summary 04/16/18 1631 MR#: [id number] Acct: [id number] Name: AJIT GRIMALDO Rep #: [id number] : 1955 62 From: Petrona Rios MD PCP: Dhara Taylor DO Status: ADM FRANCK - ER Visit Summary Date of Service: 04/16/18 Chief Complaint: Slurred speech History of Present Illness: The patient is a 62 M presenting with sudden onset of slurred speech. This started around 2 PM. Patient lives in a long term. His blood sugar was checked and was [...] Impression: TIA This note was generated with L2C dictation software. It may contain incorrect words, spelling, and punctuation that were not noted in review of the chart prior to signing ED Disposition - Plan for ED Patient: Chief Complaint: Neuro S/Sx What to do if you have Problems For any increased pain, shortness of breath, bleeding, nausea or vomiting, chest pain, or any unexpected problems, contact your Primary Care Provider. Call [facility] ([phone]) or report to the closest Emergency Room. Call 911 if necessary. 04/16/18 2420 <Electronically signed by Petrona Rios MD> Date Petrona Rios MD Cosigner Signature (If Indicated): Date CC: Dhara Taylor DO CHEST 1 VIEW Observed: 04/16/2018 Status: F Source: [place] 4:23 PM [facility] REPOSITORY [facility] Imaging Services [address] [place] [address] Chest 1 View MR#: [id number] Acct: [id number] Name: AJIT GRIMALDO Rep #: [id number] : 1955 M 62 From: Jackson Conde DO PCP: Dhara Taylor DO Status: PRE ER Study: Chest 1 View Date of Exam: 04/16/18 Exam# [id number] Ordering Dr: Petrona Rios MD STUDY: X-RAY [...] Jackson Conde DO at 16:55 EDT Tel [phone], Service support , CC: Petrona Rios MD; Dhara Taylor DO Criminal Researcher: Signed BRAIN/HEAD WITHOUT Observed: 04/16/2018 Status: F Source: [place] CONTRAST 4:23 PM [facility] REPOSITORY [facility] Imaging Services [address] [place] [address] Brain/Head without Contrast MR#: [id number] Acct: [id number] Name: AJIT GRIMALDO Rep #: [id number] : 1955 M 62 From: Jackson Conde DO PCP: Dhara Taylor DO Status: REG ER Study: Brain/Head without Contrast Date of Exam: 04/16/18 Exam# [id number] Ordering Dr: Petrona Rios MD STUDY: CT [...] Jackson Conde DO at 17:16 EDT Tel [phone], Service support , CC: Petrona Rios MD; Dhara Taylor DO Criminal Researcher: Signed CBC W/DIFF, AUTOMATED Collected: 04/16/2018 Status: F Source: [place] 4:20 PM [facility] REPOSITORY TYPE CODE TESTS RESULT OUT OF [...] Lymph 1.48 Performed By: #### L100.0100 #### [facility] [address] [place], [address] BASIC METABOLIC Collected: 04/16/2018 Status: F Source: [place] PROFILE (BMP) 4:20 PM [facility] REPOSITORY TYPE CODE TESTS RESULT OUT OF [...] 7 Performed By: #### L500.2500, L501.4010 #### [facility] [address] [place], [place], [address] TROPONIN-I Collected: 04/16/2018 Status: F Source: [place] 4:20 PM [facility] REPOSITORY TYPE CODE TESTS RESULT OUT OF RANGE REFERENCE UNITS LAB L501.4010 <0.045 ng/mL Normal < 0.015 TROPONIN-I Result Comment: TROPONIN-I EXPECTED VALUES <0.045 Negative 0.045 - 0.590 Consistent with Cardiac Damage > OR = 0.600 Critical Value Not every elevated troponin is indicative of OR. These values should be used with clinical judgement in examining the patient's clinical picture for diagnosis. To establish a diagnosis of OR versus myocardial injury, there must be a demonstrated rise and/or fall in the troponin values, in addition to ischemic symptoms, EKG changes, new regional wall motion abnormality, and/or angiographical evidence. PLEASE NOTE: REFERENCE RANGES EDITED 18 Performed By: #### L500.2500, L501.4010 #### [facility] [address] [place], [address] PROTHROMBIN TIME W/INR Collected: 04/16/2018 Status: F Source: [place] 4:20 PM [facility] REPOSITORY TYPE CODE TESTS RESULT OUT OF RANGE REFERENCE UNITS LAB L300.4150 11.7-14.9 SECONDS Normal PROTIME 14.4 LAB L300.4200 Normal INR 1.1 Performed By: #### L300.3900, L300.4310 #### [facility] [address] [facility] [place] [address] PARTIAL THROMBOPLAST Collected: 04/16/2018 Status: F Source: [place] TIME 4:20 PM [facility] REPOSITORY TYPE CODE TESTS RESULT OUT OF RANGE REFERENCE UNITS LAB L300.4310 24.1-36.2 Seconds Normal PTT 30.6 Performed By: #### L300.3900, L300.4310 #### [facility] [address] [facility] [facility] [place] [address] BEDSIDE GLUCOSE Collected: 04/16/2018 Status: F Source: [place] 4:11 PM [facility] REPOSITORY TYPE CODE TESTS RESULT OUT OF RANGE REFERENCE UNITS LAB L501.080 70-110 mg/dL Normal BEDSIDE GLU 84 Result Comment: MANAGEMENT OF PATIENT CARE PER NURSING PROTOCOL Performed By: #### L501.080 #### [facility] Point of Care [address] [place] [address] EMERGENCY DEPARTMENT Observed: 04/16/2018 Status: F Source: [place] SUMMARY 7:17 AM [facility] REPOSITORY [facility] Medical Records Department [address] [place] [address] Emergency Department Summary 04/16/18 0514 MR#: [id number] Acct: [id number] Name: AJIT GRIMALDO Sera Rep #: [id number] : 1955 62 From: Quentin Winkler MD PCP: Dhara Taylor DO Status: DEP ER - ER Visit Summary Date of Service: 04/16/18 Chief Complaint: Left arm pain History of Present Illness: The patient is a 62 M presenting for evaluation secondary left arm pain. Patient has a underlying history of living in a long term and has schizophrenia that is reasonably controlled. [...] approved by a physician and his nursing marketing sales supervisor and was unable to take any [...] arm pain This note was generated with L2C dictation software. It may contain incorrect words, [...] problems, contact your Primary Care Provider. Call [facility] ([phone]) or report to the closest Emergency Room. Call 911 if necessary. 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 He lives in a long term and cares for himself with supervision from staff. He is accompanied today by his lining caser, Isaac. Past Medical History Past Medical History: [...] Paternal Diabetes Sibling Hypertension Lives: - - long term Smoking Status: Current every day smoker Tobacco [...] Date Recorded By Document 03/21/18 13:53 DL [id number] 03/21/18 14:14 DL Wound Center Nurse 1 [...] Date Recorded By Document 03/21/18 15:45 DV [id number] 03/21/18 15:51 DV Psych/Mental Status: Flat Affect Debridement Note Post-Debridement Measurements/Treatment WC - Nurse 2 - General Ulcer CM Notes Start: 03/21/18 13:50 Freq: Status: Active Protocol: Activity Type Activity Date Activity User E-Sign Co-Sign Detail Recorded Client Recorded Date Recorded By Document 03/21/18 15:45 DV [id number] 03/21/18 15:51 DV Wound Center Nurse 2 [...] EMERGENCY DEPARTMENT Observed: 03/18/2018 Status: F Source: [place] SUMMARY 11:42 PM [facility] REPOSITORY [facility] Medical Records Department [address] [place] [address] Emergency Department Summary 03/18/18 1815 MR#: [id number] Acct: [id number] Name: AJIT GRIMALDO Rep #: [id number] : 1955 62 From: Petrona Rios MD PCP: Dhara Talyor DO Status: DEP ER - ER Visit [...] forearm pain This note was generated with L2C dictation software. It may contain incorrect words, [...] your Primary Care Provider. Call [facility] ([phone]) or report to the closest Emergency Room. Call 911 if necessary. 03/18/18 6252 <Electronically signed by Petrona Rios MD> Date Petrona Rios MD Cosigner Signature (If Indicated): Date CC: Dhara Taylor DO DISCHARGE INSTRUCTION Observed: 03/18/2018 Status: F Source: [place] 6:18 PM [facility] REPOSITORY [facility] Medical Records Department [address] [place] [address] Discharge Instruction 03/18/181816 MR#: [id number] Acct: [id number] Name: AJIT GRIMALDO Rep #: [id number] : 1955 62 From: Petrona Rios MD [...] your Primary Care Provider. Call [facility] ([phone]) or report to the closest Emergency Room. Call 911 if necessary. 03/18/181817 <Electronically signed by Petrona Rios MD> Date Petrona Rios MD Cosigner Signature (If Indicated): Date CC: Dhara Taylor DO PLATELET COUNT Collected: 01/21/2018 Status: F Source: [place] 8:17 AM [facility] REPOSITORY TYPE CODE TESTS RESULT OUT OF RANGE REFERENCE UNITS LAB L100.1900 150-450 K/mm3 Normal PLT 178 Performed By: #### L100.1900 #### [facility] [address] [place], [address] VALPROIC ACID Collected: 01/21/2018 Status: F Source: [place] ([place]) [place] 8:17 AM [facility] REPOSITORY TYPE CODE TESTS RESULT OUT OF RANGE REFERENCE UNITS LAB L501.8100 50-100 ug/mL Normal VALPROIC ACID 73 Performed By: #### L501.8100 #### [facility] [address] [place], [address] AST(SGOT) Collected: 01/21/2018 Status: F Source: [place] 8:17 AM [facility] REPOSITORY TYPE CODE TESTS RESULT OUT OF RANGE REFERENCE UNITS LAB L501.4100 15-37 U/L Normal AST 20 Performed By: #### L501.4100, L501.4405 #### [facility] [address] [place], [address] ALANINE AMINOTRANSFERAS Collected: 01/21/2018 Status: F Source: [place] ([place]) 8:17 AM [facility] REPOSITORY TYPE CODE TESTS RESULT OUT OF RANGE REFERENCE UNITS LAB L501.4405 16-61 U/L Low ALT 15 Performed By: #### L501.4100, L501.4405 #### [facility] [address] [place], [address] EMERGENCY DEPARTMENT Observed: 11/30/2017 Status: F Source: [place] 3:45 PM [facility] REPOSITORY [facility] Medical Records Department [address] [place] [address] Emergency Department Summary 11/26/17 1320 MR#: [id number] Acct: [id number] Name: AJIT GRIMALDO Rep #: [id number] : 1955 62 From: Blayne Caldwell DO [...] extremity cellulitis] This note was generated with L2C dictation software. It may contain incorrect words, [...] your Primary Care Provider. Call [facility] ([phone]) or report to the closest Emergency Room. Call 911 if necessary. 11/30/17 1545 <Electronically signed by Blayne Caldwell DO> Date Blayne Caldwell DO Cosigner Signature (If Indicated): Date CC: Dhara Claudia DO VENOUS DUPLEX LOWER Observed: 11/26/2017 Status: F Source: [place] EXTREMITY 3:22 PM [facility] REPOSITORY [facility] Cardiovascular Services [address] [place] [address] Venous Duplex US - Kane Extrem 11/26/17 1349 MR#: [id number] Acct: [id number] Name: AJIT GRIMALDO Rep #: [id number] : 1955 62 From: Roger Carney MD [...] Dictated: 11/26/17 1349 Date Transcribed: 11/26/17 1522 Criminal Researcher: Signed DISCHARGE INSTRUCTION Observed: 11/26/2017 Status: F Source: [place] 2:36 PM [facility] REPOSITORY [facility] Medical Records Department [address] [place] [address] Discharge Instruction 11/26/17 1435 MR#: [id number] Acct: [id number] Name: AJIT GRIMALDO Rep #: [id number] : 1955 62 From: Blayne Caldwell DO [...] your Primary Care Provider. Call [facility] ([phone]) or report to the closest Emergency Room. Call 911 if necessary. 11/26/17 1436 <Electronically signed by Blayne Caldwell DO> Date Blayne Caldwell DO Cosigner Signature (If Indicated): Date CC: Dhara Taylor DO CBC W/DIFF, AUTOMATED Collected: 11/26/2017 Status: F Source: [place] 1:05 PM [facility] REPOSITORY TYPE CODE TESTS RESULT OUT OF [...] Lymph 1.28 Performed By: #### L100.0100 #### [facility] [address] [place], [place], [address] BASIC METABOLIC Collected: 11/26/2017 Status: F Source: [place] PROFILE ([facility]) 1:05 PM [facility] REPOSITORY TYPE CODE TESTS RESULT OUT OF [...] GAP 4 Performed By: #### L500.2500 #### [facility] [address] [place], [address] PROGRESS Observed: 11/26/2017 Status: COMPLETED Source: [place] 12:12 PM [facility] [place] REPOSITORY [facility] ID: [id number] Author: Nova Méndez Service: (none) Author Type: [...] Dust; Mold; Nicotine; Sulfa (Sulfonamide Antibiotics); Bug Arg[place] [Other] MEDICATIONS aspirin, enteric coated (ASPIRIN, ENTERIC [...] Patient verbalizes understanding and will inform his foster care therapist from his long term. A note was given to him with the provider recommendation. Patient is agreeable. Face sheet faxed to [facility] and report called. Nova Méndez CNP CNCO Observed: 11/26/2017 Status: COMPLETED Source: [place] 12:00 AM [facility] REPOSITORY Letter Text [place] Department of Urgent Care Dev Bhatt CNP [address] [place], [place] [address] 11/26/2017 Ajit Grimaldo CC# [id number] [address] [place] [id number] TO WHOM IT MAY CONCERN: This is to confirm that Ajit Grimaldo had an appointment and was seen at the [facility] in the Department of Urgent Care by [...] REACTION SEVERITY SOURCE 09/06/2018 Drug sulfamethoxazo Unknown OR [place] Allergy/578347605(S le/S913224369( Community NOMED CT) RXNORM) Hospital Repository 09/06/2018 Drug trimethoprim/F Unknown OR [place] Allergy/246588841(S 359260639(RXNO Community NOMED CT) RM) Hospital Repository 09/06/2018 Drug Penicillins/F0 Unknown Unknown [place] Allergy/275421421(S 45346854(RXNOR Community NOMED CT) M) Hospital Repository 04/15/2015 DRUG NICOTINE SHORTNESS OF [place] INGREDI/910942415(S Clinic Main NOMED [facility]) [place] 02/15/2014 Drug SULFA UNKNOWN [place] Class/693577744(SNO (SULFONAMIDE Clinic Main MED CT) ANTIBIOTICS) [place] Rep[place] 07/30/2005 Environ/902472477(S DUST [place] NOM[facility]) Clinic Main [place] Rep[place] 07/30/2005 DRUG MOLD [place] INGREDI/534243520(S [facility] Main NOMED CT) [place] Rep[place] 07/30/2005 Miscellaneous OTHER SWELLING [place] Allergy/595028393(S [facility] Main NOMED CT) [place] Rep[place] ENCOUNTERS ENCOUNTERS ADMIT/DISCHARGE ACCOUNT ADMITTING ENCOUNTER LOCATION SOURCE NUMBER CLASS 09/06/2018/09/06/20 [id number] Emergency [address] ing:ED Repository 09/05/2018/09/05/20 [id number] Emergency [address] ing:ED Repository 09/02/2018 [id number] Ambulatory [facility] ing:LAB Repository 08/15/2018 [id number] Ambulatory [facility] Practices Repository 06/23/2018 [id number] Ambulatory [facility] ing:LAB Repository 05/17/2018 [id number] Ambulatory [facility] Hospital ing:WC Repository 05/08/2018/05/10/20 [id number] Kristal Larsen Ambulatory [address] ing:PCURoom: Repository [id number]: 1 05/08/2018 [id number] White, Kristal Ambulatory BMSBuilding:Mari Soares [facility] Repository 05/08/2018 [id number] White Kristal Ambulatory BMSBuilding:Mari Soares MS.[facility] Repository 05/08/2018/05/10/20 [id number] Ambulatory BMSBuilding:W [place] L[facility] Repository 05/08/2018 [id number] Ambulatory BMSBuilding:Mari Soares MS.[facility] Repository 05/02/2018/05/02/20 [id number] Emergency [address] Hospital ing:ED Repository 04/18/2018/05/06/20 [id number] Ambulatory [address] Hospital ing:WC Repository 04/16/2018/04/17/20 [id number] [place], Ambulatory [address] ing:PCURoom: Repository [id number]: 1 04/16/2018 [id number] [place], Ambulatory BMSBuilding:Mari Baker MS.[facility] Repository 04/16/2018 [id number] [place], Ambulatory BMSBuilding:Mari Baker MS.[facility] Repository 04/16/2018/04/16/20 [id number] Emergency [address] Hospital ing:ED Repository 04/04/2018/04/05/20 [id number] Ambulatory [address] Hospital ing:WC Repository 03/18/2018/03/18/20 [id number] Emergency [address] Hospital ing:ED Repository 01/21/2018 [id number] Ambulatory [facility] ing:LAB Repository 11/26/2017/11/26/19 [id number] Emergency [place] [address] [place] [address] ing:ED Repository 11/26/2017 [id number] Ambulatory BMSBuilding:B [place] [facility] Repository 11/26/2017/11/27/19 [id number] Ambulatory [address] Repository PAYERS PAYERS ENCOUNTER GUARANTOR PAYER SUBSCRIBER SOURCE 09/06/2018 AJIT GRIMALDO1410 Primary AJIT SIMONB: [place] Insurance:[facility] [id number] [facility] [place] [facility] [address]Mdd: (330) Number: Repository [phone] () [id number] Date:5233-38-92ROIA [address]S [address] [address]PI: 09/06/2018 Secondary NOT GIVENUNK [place] Insurance:SELF PAY [facility] Number: Effective Repository Date:2018-09-06 09/05/2018 AJIT MADISON0 Primary AJIT SIMONB: [place] Insurance:[facility] [id number] [facility] [facility] [address]Tuu: (330) Number: Repository [phone] () [id number] Date:9259-39-69AHEK [address]S [address] [address]NQ: 09/05/2018 Secondary NOT GIVENUNK [place] Insurance:SELF PAY [facility] Number: Effective Repository Date:2018-09-05 09/02/2018 AJIT GRIMALDO1410 Primary AJIT SIMONB: [place] Insurance:[facility] [id number] [facility] [place] [facility] [address]Jlg: (330) Number: Repository [phone] () [id number] Date:0785-86-46SPJQ [address]S [address] [address]ZU: 09/02/2018 Secondary NOT GIVENUNK [place] Insurance:SELF PAY [facility] Number: Effective Repository Date:2018-09-02 08/15/2018 Ajit SimonB: Primary Ajit SimonB: OHIP [facility] [id number] Insurance:[facility]/ [id number] Repository [address], [facility] [place], [place] [address]Maa: Number: [place] [address]Lli: [id number] (HP)Tel: (010) Date:9314-72-96Zwro (HP) [phone] () Name:[address] [id number]: 06/23/2018 AJIT MADISON0 Primary AJIT SIMONB: [place] Insurance:[facility] [id number] [place], [place] *[place] [facility] [address]Xqh: (304) Number: Repository [phone] () [id number] Date:5739-79-10NBRB [address]S [address] [place] [address]CC: 06/23/2018 Secondary NOT GIVENUNK [place] Insurance:SELF PAY [facility] Number: Effective Repository Date:2018-06-23 05/17/2018 AJIT Zamora [id number] Primary AJIT SIMONB: [place] [address], Insurance:[facility] [id number] [facility] [address]Wcv: *IN [facility] Number: Repository () [id number] Date:2298-74-22QLGT [address]S [address], [place] [address]KK: 05/17/2018 Secondary NOT GIVENUNK [place] Insurance:SELF PAY [facility] Number: Effective Repository Date:2018-05-07 05/08/2018 AJIT GRIMALDO1410 Primary AJIT SIMONB: [place], Insurance:[facility] [id number] [facility] [address]Oxb: *IN [facility] Number: Repository () [id number] Date:0472-13-45NQNG [address]S [address] [place] [address]UG: 05/08/2018 Secondary NOT GIVENUNK [place] Insurance:SELF PAY [facility] Number: Effective Repository Date:2018-05-08 05/08/2018 AJIT GRIMALDO1410 Primary AJIT Sera GRIMALDODOB: [place], Insurance:[facility]ARE [facility] [id number] [facility] [place] [address]Htj: *IN [facility] Number: Repository () [id number] Date:2903-24-60XHMP [address]S [address], [place] [address]QO: 05/08/2018 Secondary NOT GIVENUNK [place] Insurance:SELF PAY [facility] Number: Effective Repository Date:2018-05-08 05/08/2018 AJIT MADISON0 Primary AJIT Sera GRIMALDODOB: [place], Insurance:MYCARE CRS [id number] [facility] [place] [address]Ftm: *IN [facility] Number: Repository () [id number] Date:9912-08-64AZJI [address]S [address] [address]JD: 05/08/2018 Secondary NOT GIVENUNK [place] Insurance:SELF PAY [facility] Number: Effective Repository Date:2018-05-08 05/08/2018 AJIT GRIMALDO1410 Primary AJIT Sera GRIMALDODOB: [place], Insurance:MYCARE CRS [id number] [facility] [place] [address]Nep: *IN [facility] Number: Repository () [id number] Date:5207-71-99AVNF CLAIMS [address] [place] [address]OI: 05/08/2018 Secondary NOT GIVENUNK [place] Insurance:SELF PAY [facility] Number: Effective Repository Date:2018-05-08 05/08/2018 AJIT GRIMALDO1410 Primary AJIT SIMONB: [place], Insurance:[facility] [id number] [facility] [place] [address]Uod: *IN [facility] Number: Repository () [id number] Date:5745-00-72HLXA CLAIMS [address] [address]QP: 05/08/2018 Secondary NOT GIVENUNK [place] Insurance:SELF PAY [facility] Number: Effective Repository Date:2018-05-08 05/02/2018 AJIT GRIMALDO547 Primary AJIT SIMONB: [place] [address] [address], Insurance[facility] [id number] [place] [address]Gvo: *IN [facility] Number: Repository () [id number] Date:4796-43-18UROQ CLAIMS [address] [place] [address]MO: 05/02/2018 Secondary NOT GIVENUNK [place] Insurance:SELF PAY [facility] Number: Effective Repository Date:2018-05-02 04/18/2018 AJIT GRIMALDO547 Primary AJIT SIMONB: [place] [address] [address], Insurance:[facility] [id number] [facility] [place] [address]Rko: *IN [facility] Number: Repository () [id number] Date:2014-47-96URRD CLAIMS [address] [place] [address]OJ: 04/18/2018 Secondary NOT GIVENUNK [place] Insurance:SELF PAY [facility] Number: Effective Repository Date:2018-04-06 04/16/2018 AJIT GRIMALDO547 Primary AJIT SIMONB: [place] [address], Insurance:[facility] [id number] [facility] [address]Snw: *IN [facility] Number: Repository () [id number] Date:0055-24-47ODVE CLAIMS [address] [address]MD: 04/16/2018 Secondary NOT GIVENUNK [place] Insurance:SELF PAY [facility] Number: Effective Repository Date:2018-04-16 04/16/2018 AJIT GRIMALDO547 Primary AJIT GRIMALDODOB: [place] [address], Insurance:MYCARE CRS [id number] [facility] [place] [address]Ifu: *IN [facility] Number: Repository () [id number] Date:1999-27-36KBTZ [address]S [address], [place] [address]PY: 04/16/2018 Secondary NOT GIVENUNK [place] Insurance:SELF PAY [facility] Number: Effective Repository Date:2018-04-16 04/16/2018 AJIT PATEL7 Primary AJIT GRIMALDODOB: [place] [address] [address], Insurance:[facility] [id number] [facility] [place] [address]Syy: *IN [facility] Number: Repository () [id number] Date:9101-59-49AUNS [address]S [address], [place] [address]WP: 04/16/2018 Secondary NOT GIVENUNK [place] Insurance:SELF PAY [facility] Number: Effective Repository Date:2018-04-16 04/16/2018 AJIT GRIMALDO547 Primary AJIT GRIMALDODOB: [place] [address] [address], Insurance:[facility] [id number] [facility] [place] [address]Lue: *IN [facility] Number: Repository () [id number] Date:6810-79-78XGLK [address]S [address] [address]UU: 04/16/2018 Secondary NOT GIVENUNK [place] Insurance:SELF PAY [facility] Number: Effective Repository Date:2018-04-16 04/04/2018 AJIT GRIMALDO547 Primary AJIT GRIMALDOB: [place] [address] [address], Insurance:[facility] [id number] [facility] [place] [address]Zxz: *IN [facility] Number: Repository () [id number] Date:5157-25-05EYFK [address]S [address] [address]TM: 04/04/2018 Secondary NOT GIVENUNK [place] Insurance:SELF PAY [facility] Number: Effective Repository Date:2018-03-21 03/18/2018 AJIT GRIMALDO547 Primary AJIT GRIMALDOB: [place] [address] [address], Insurance:[facility] [id number] [facility] [place] [address]Bnh: *IN [facility] Number: Repository () [id number] Date:8335-07-24SNZQ [address]S [address] [address]MC: 03/18/2018 Secondary NOT GIVENUNK [place] Insurance:SELF PAY [facility] Number: Effective Repository Date:2018-03-18 01/21/2018 Ajit Grimaldo547 Primary AJIT GRIMALDOB: [place] [address], Insurance:[facility] [id number] [facility] [address]Sax: *IN [facility] Number: Repository () [id number] Date:4906-26-81STPW [address]S [address] [address]WS: 01/21/2018 Secondary NOT GIVENUNK [place] Insurance:SELF PAY [facility] Number: Effective Repository Date:2018-01-21 11/26/2017 Ajit Grimaldo547 Primary AJIT GRIMALDOB: [place] [address], Insurance:[facility] [id number] [facility] [place] [address]Msj: *IN [facility] Number: Repository () [id number] Date:6772-89-40NLXX [address]S [address], [place] [address]NH: 11/26/2017 Secondary NOT GIVENUNK [place] Insurance:SELF PAY [facility] Number: Effective Repository Date:2017-11-26 11/26/2017 Ajit Grimaldo547 Primary AJIT ROBISON: [place] [place], Insurance:[facility] [id number] by [facility] [address]Zqa: *IN [facility] Number: Repository () [id number] Date:6653-52-79GRIA [facility]S [facility] [address] [place] [address]NV: 11/26/2017 Secondary NOT GIVENUNK [place] Insurance:SELF PAY [facility] Number: Effective Repository Date:[id number]
== END 2018-09-05 20:41 | disposition home or self-care (01) ==
LOC: ED 19:10
PROVIDERS: Emergency Provider Emergency Medicine; Family Provider Internal Medicine; PCP Internal Medicine
DX: R07.9 Chest pain, unspecified (principal); F41.9 Anxiety disorder, unspecified; E11.9 Type 2 diabetes mellitus without complications; F20.9 Schizophrenia, unspecified; I50.9 Heart failure, unspecified; Z72.0 Tobacco use; Z86.73 Personal history of transient ischemic attack (TIA), and cerebral infarction without residual deficits; Z79.51 Long term (current) use of inhaled steroids; Z79.82 Long term (current) use of aspirin; Z79.84 Long term (current) use of oral hypoglycemic drugs; Z79.899 Other long term (current) drug therapy
CPT/HCPCS: 71045; 80048; 80164; 84484; 85025; 93005; 96360; 96361; 99285; J7030

== ENCOUNTER 2018-09-06 12:17 | Emergency (ER) | payer MEDICARE, SELFPAY ==
[2018-09-05 18:22] VITALS: BMI 61.7
[2018-09-06 12:18] VITALS: BMI 28.7
[2018-09-06 12:20] VITALS: BP 174/68; PULSE 93; RESP 14; TEMP 36.8; O2SAT 99
--- NOTE | 2018-09-06 12:40 | ED.DCSUM_ITS ---
- ER Visit Summary Date of Service: 09/06/18 Chief Complaint: Chest pain History of Present Illness: The patient is a 62 M who presents with chest pain. When I asked him what part of his chest is affected, he points to his epigastric region. He says his symptoms are worse with food and better with burping. He was seen here last night for the same thing and had a negative workup. He was discharged home. He is requesting an acids today specifically Prilosec. They have helped before. He denies any other abdominal pain or GI symptoms. Denies any new chest pain or respiratory symptoms. Denies any history of blood clots or aortic problems. Denies fevers or recent illness. Physical Examination: Afebrile and vital signs unremarkable except for a blood pressure of 174/68. Sitting comfortably. Alert and oriented. No acute distress. Skin appears normal in color without diaphoresis, jaundice, or pallor. Heart regular rate and rhythm. Lungs clear to auscultation bilaterally. Abdomen soft and nontender. No guarding or rebound. No distention. Moves all extremities. Pulses strong and equal. No edema. Test Results: None indicated. I reviewed his labs from last night. Emergency Department Course and Treatment: Patient was treated with a GI cocktail. At his request we will prescribe Prilosec. Declined any further testing or evaluation. He was advised to return for any new or worsening issues . Otherwise, follow-up with primary care. Treatment Plan: As above Disposition: Discharge Impression: 1. Epigastric pain This note was generated with [employer] dictation software. It may contain incorrect words, spelling, and punctuation that were not noted in review of the chart prior to signing ED Disposition - Plan for ED Patient: Chief Complaint: Chest Other Referrals: Dhara Taylor DO [Primary Care Provider] -
--- NOTE | 2018-09-06 12:41 | ED.DEP ---
ED Disposition - Plan for ED Patient: Chief Complaint: Chest Other Instructions: ED Epigastric Pain [facility] Prescriptions: Omeprazole Magnesium [Prilosec Otc] 20 mg PO BID #40 tablet. Referrals: Dhara Taylor DO [Primary Care Provider] -
[2018-09-06] MEDS: Mag Hydrox/Al Hydrox/Simeth 30 ML UDC PO (12:42)
[2018-09-06 12:43] VITALS: BP 178/76; PULSE 93; RESP 14; O2SAT 99
[2018-09-06 13:14] VITALS: BP 143/68; PULSE 84; RESP 16; O2SAT 98
--- OUTSIDE RECORDS SUMMARY | 2018-10-31 20:08 | XMS RPT_ITS ---
:1955 Author Organization OHIP Support Name Relationship Address Phone GOMES, PAULA Unavailable Unavailable + [place] [address] D Unavailable Unavailable Unavailable GOMES, PAULA Unavailable Unavailable + [place] [address] D Unavailable Unavailable Unavailable GOMES, PAULA Unavailable Unavailable + [place] [address] D Unavailable Unavailable Unavailable GOMES, PAULA Unavailable Unavailable + [place] [address] D Unavailable Unavailable Unavailable GOMES, PAULA Unavailable Unavailable + [place] [address] D Unavailable Unavailable Unavailable GOMES, PAULA Unavailable Unavailable + [place] [address] D Unavailable Unavailable Unavailable GOMES, PAULA Unavailable Unavailable + [place] [address] D Unavailable Unavailable Unavailable GOMES, PAULA Unavailable Unavailable + [place] [address] D Unavailable Unavailable Unavailable GOMES, PAULA Unavailable Unavailable + [place] [address] D Unavailable Unavailable Unavailable GOMES, PAULA Unavailable Unavailable + [place] [address] D Unavailable Unavailable Unavailable GOMES, PAULA Unavailable Unavailable + [place] [address] D Unavailable Unavailable Unavailable GOMES, PAULA Unavailable Unavailable + [place] [address] D Unavailable Unavailable Unavailable GOMES, PAULA Unavailable Unavailable + [place] [address] D Unavailable Unavailable Unavailable GOMES, PAULA Unavailable Unavailable + [place] [address] D Unavailable Unavailable Unavailable GOMES, PAULA Unavailable Unavailable + [place] [address] D Unavailable Unavailable Unavailable GOMES, PAULA Unavailable Unavailable + [place] [address] D Unavailable Unavailable Unavailable GOMES, PAULA Unavailable Unavailable + [place] [address] D Unavailable Unavailable Unavailable GOMES, PAULA Unavailable Unavailable + [place] [address] D Unavailable Unavailable Unavailable GOMES, PAULA Unavailable Unavailable + [place] [address] D Unavailable Unavailable Unavailable GOMES, PAULA Unavailable . + [place] [address] D Unavailable Unavailable Unavailable GOMES, PAULA Unavailable . + [place] [address] D Unavailable Unavailable Unavailable Care Team Providers [...] Unknown Z79.899 - Other Joanna Vera Active [facility] (current) drug Hospital therapy / Repository Z79.899(ICD-10) 01/10/2018 Unknown M79.89 - Other Roger Carney Active [facility] / M79.89(ICD-10) Repository PROCEDURES PROCEDURES No Procedure Records FoundRESULTS RESULTS 12 LEAD ELECTROCARDIOGRAM Observed: 09/09/2018 Status: F Source: [place] 2:09 PM [facility] REPOSITORY [facility] Cardiovascular Services [address] [place] [address] 12 Lead EKG 09/05/18 1902 MR#: [id number] Acct: [id number] Name: AJIT GRIMALDO Rep #: [id number] : 1955 62 From: Moises Richard MD [...] ECG Confirmed by MATILDE ALSTON, MOISES ([id number]), photo editor DANNA LIZAMA ([id number]) on 09/09/2018 2:09:11 PM Referred By: Dhara Taylor Confirmed By:OMISES RICHARD MD 09/09/18 1409 Date Moises Richard MD CC: Dhara Taylor DO; Blayne Caldwell DO Signed DISCHARGE INSTRUCTION Observed: 09/06/2018 Status: F Source: [place] 4:15 PM [facility] REPOSITORY [facility] Medical Records Department [address] [place] [address] Discharge Instruction 09/06/18 1241 MR#: [id number] Acct: [id number] Name: AJIT GRIMALDO Rep #: [id number] : 1955 62 From: Reji Lovell MD [...] your Primary Care Provider. Call [facility] ([phone]) or report to the closest Emergency Room. Call 911 if necessary. 09/06/18 1615 <Electronically signed by Reji Lovell MD> Date Reji Lovell MD Cosigner Signature (If Indicated): Date CC: Dhara Taylor DO EMERGENCY DEPARTMENT Observed: 09/06/2018 Status: F Source: [place] SUMMARY 4:15 PM [facility] REPOSITORY [facility] Medical Records Department [address] [place] [address] Emergency Department Summary 09/06/18 1238 MR#: [id number] Acct: [id number] Name: AJIT GRIMALDO Rep #: [id number] : 1955 62 From: Reji Lovell MD [...] Epigastric pain This note was generated with Cerora dictation software. It may contain incorrect words, [...] problems, contact your Primary Care Provider. Call [employer] [facility] ([phone]) or report to the closest Emergency Room. Call 911 if necessary. 09/06/18 1615 <Electronically signed by Reji Lovell MD> Date Reji Lovell MD Cosigner Signature (If Indicated): Date CC: Dhara Taylor DO DISCHARGE INSTRUCTION Observed: 09/05/2018 Status: F Source: [place] 8:30 PM [facility] REPOSITORY [facility] Medical Records Department [address] [address] Discharge Instruction 09/05/182028 MR#: [id number] Acct: [id number] Name: AJIT GRIMALDO Rep #: [id number] : 1955 62 From: Blayne Caldwell DO [...] your Primary Care Provider. Call [facility] ([phone]) or report to the closest Emergency Room. Call 911 if necessary. 09/05/18 2030 <Electronically signed by Blayne Caldwell DO> Date Blayne Caldwell DO Cosigner Signature (If Indicated): Date CC: Dhara Taylor DO EMERGENCY DEPARTMENT Observed: 09/05/2018 Status: F Source: [place] SUMMARY 8:29 PM [facility] REPOSITORY [facility] Medical Records Department [address] [place] [address] Emergency Department Summary 09/05/182023 MR#: [id number] Acct: [id number] Name: AJIT GRIMALDO Rep #: [id number] : 1955 62 From: Blayne Caldwell DO [...] and schizophrenia. Patient currently lives in a fpc where they give him his medication daily [...] pain-etiology uncertain] This note was generated with Cerora dictation software. It may contain incorrect words, [...] your Primary Care Provider. Call [facility] ([phone]) or report to the closest Emergency Room. Call 911 if necessary. 09/05/182028 <Electronically signed by Blayne Caldwell DO> Date Blayne Caldwell DO Cosigner Signature (If Indicated): Date CC: Dhara Taylor DO CBC W/DIFF, AUTOMATED Collected: 09/05/2018 Status: F Source: [place] 6:45 PM [facility] REPOSITORY TYPE CODE TESTS RESULT OUT [...] Lymph 1.80 Performed By: #### L100.0100 #### [facility] [address] [place] [address]. [place], [address] BASIC METABOLIC Collected: 09/05/2018 Status: F Source: [place] PROFILE (BMP) 6:45 PM [facility] REPOSITORY TYPE CODE TESTS RESULT OUT [...] 8 Performed By: #### L500.2500, L501.4010 #### [facility] [address] [facility] [place], [address] TROPONIN-I Collected: 09/05/2018 Status: F Source: [place] 6:45 PM [facility] REPOSITORY TYPE CODE TESTS RESULT OUT OF RANGE REFERENCE UNITS LAB L501.4010 <0.045 ng/mL Normal < 0.015 TROPONIN-I Result Comment: TROPONIN-I EXPECTED VALUES <0.045 Negative 0.045 - 0.590 Consistent with Cardiac Damage > OR = 0.600 Critical Value Not every elevated troponin is indicative of TN. These values should be used with clinical judgement in examining the patient's clinical picture for diagnosis. To establish a diagnosis of TN versus myocardial injury, there must be a demonstrated rise and/or fall in the troponin values, in addition to ischemic symptoms, EKG changes, new regional wall motion abnormality, and/or angiographical evidence. PLEASE NOTE: REFERENCE RANGES EDITED 18 Performed By: #### L500.2500, L501.4010 #### [facility] [address] [facility]. [place], [place], [id number] VALPROIC ACID Collected: 09/05/2018 Status: F Source: [place] (DEPAKENE) LEVEL 6:45 PM [facility] REPOSITORY TYPE CODE TESTS RESULT OUT OF RANGE REFERENCE UNITS LAB L501.8100 50-100 ug/mL Normal VALPROIC ACID 58 Performed By: #### L501.8100 #### [facility] [address] [place], [address] CHEST 1 VIEW Observed: 09/05/2018 Status: F Source: [place] (PORTABLE) 6:38 PM [facility] REPOSITORY [facility] Imaging Services [address] [place] [address] Chest 1 View (Portable) MR#: [id number] Acct: [id number] Name: AJIT GRIMALDO Rep #: [id number] : 1955 M 62 From: Vladimir Pandya MD PCP: Dhara Taylor DO Status: REG ER Study: Chest 1 View (Portable) Date of Exam: 09/05/18 Exam# [id number] Ordering Dr: Blayne Caldwell DO STUDY: X-RAY [...] CC: Dhara Taylor DO; Blayne Caldwell DO Plate And Weld Inspector: Signed BASIC METABOLIC Collected: 09/02/2018 Status: F Source: [place] PROFILE (BMP) 10:30 AM [facility] REPOSITORY TYPE CODE TESTS RESULT OUT [...] GAP 7 Performed By: #### L500.2500 #### [facility] [address] [place], [address] PLATELET COUNT Collected: 06/23/2018 Status: F Source: [place] 11:21 AM [facility] REPOSITORY TYPE CODE TESTS RESULT OUT OF RANGE REFERENCE UNITS LAB L100.1900 150-450 K/mm3 Normal PLT 182 Performed By: #### L100.1900 #### [facility] [address] [place], [address] AMMONIA Collected: 06/23/2018 Status: F Source: [place] 11:21 AM [facility] REPOSITORY TYPE CODE TESTS RESULT OUT OF RANGE REFERENCE UNITS LAB L503.5510 11-32 umol/L Normal AMMONIA 12.0 Performed By: #### L503.5510 #### [facility] [address] [place], [address] VALPROIC ACID Collected: 06/23/2018 Status: F Source: [place] (DEPAKENE) LEVEL 11:21 AM [facility] REPOSITORY TYPE CODE TESTS RESULT OUT OF RANGE REFERENCE UNITS LAB L501.8100 50-100 ug/mL Normal VALPROIC ACID 87 Performed By: #### L501.8100 #### [facility] [address] [place], [address] AST(SGOT) Collected: 06/23/2018 Status: F Source: [place] 11:21 AM [facility] REPOSITORY TYPE CODE TESTS RESULT OUT OF RANGE REFERENCE UNITS LAB L501.4100 15-37 U/L Normal AST 19 Performed By: #### L501.4100, L501.4405, L3100.5420 #### [facility] [address] [facility] [address] ALANINE AMINOTRANSFERAS Collected: 06/23/2018 Status: F Source: [place] (SGPT) 11:21 AM [facility] REPOSITORY TYPE CODE TESTS RESULT OUT OF RANGE REFERENCE UNITS LAB L501.4405 16-61 U/L Low ALT 14 Performed By: #### L501.4100, L501.4405, L3100.5420 #### [facility] [address] [place], [address] PROLACTIN Collected: 06/23/2018 Status: F Source: [place] 11:21 AM [facility] REPOSITORY TYPE CODE TESTS RESULT OUT OF RANGE REFERENCE UNITS LAB L3100.5420 ng/mL Normal PROLACTIN 20.8 Result Comment: NORMAL REFERENCE RANGES FEMALE NON- 2.2 - 30.3 ng/mL 8.1 - 347.6 ng/mL POST-MENOPAUSAL 0.7 - 31.5 ng/mL MALE 2.5 - 17.4 ng/mL NEW TEST METHOD AND REFERENCE RANGES FEBRUARY 25, 2012 Performed By: #### L501.4100, L501.4405, L3100.5420 #### [facility] [address] [place], [address] 12 LEAD ELECTROCARDIOGRAM Observed: 05/12/2018 Status: F Source: [place] 2:17 PM [facility] REPOSITORY [facility] Cardiovascular Services [address] [place] [address] 12 Lead EKG 05/08/18 1757 MR#: [id number] Acct: [id number] Name: AJIT GRIMALDO Rep #: [id number] : 1955 62 From: Ajit Benavidez MD Attending Dr: Hemant Sow DO Status: DIS FRANCK Ordering Dr: Petrona Rios MD Date: 05/08/18 Location: [facility] Sex: M C Admitted: 05/08/18 Test Reason : CONFUSION Blood Pressure : / mmHG Vent. Rate : 067 BPM Atrial Rate : 067 BPM P-R Int : 152 ms QRS Dur : 084 ms QT Int : 402 ms P-R-T Axes : 077 059 067 degrees QTc Int : 424 ms Normal sinus rhythm Normal ECG Confirmed by PRAMOD ALSTON, AJIT ([id number]), photo editor DANNA LIZAMA (56) on 05/12/2018 2:17:00 PM Referred By: EDI Confirmed By:AJIT BENAVIDEZ MD 05/12/18 1417 Date Ajit Benavidez MD CC: Petrona Rios MD; Hemant Sow DO; Dhara Taylor DO Signed DISCHARGE SUMMARY Observed: 05/10/2018 Status: F Source: [place] 12:47 PM [facility] REPOSITORY [facility] Medical Records Department [address] [place] [address] Discharge Summary 05/10/18 1244 MR#: [id number] Acct: [id number] Name: AJIT GRIMALDO Rep #: [id number] : 1955 62 From: Hemant Sow DO PCP: Dhara Taylor DO Status: ADM FRANCK Y Location: [place] [address] Discharge Date and Diagnosis - Problem List [...] old M presents with behavior changes from fpc. Patient had no focal deficits. And her [...] Patient will be returning back to his fpc in stable condition. [] Discharge Diet: No [...] applicable Code Visit Inpatient E AND M: 17415 Disch Hosp 05/10/18 1247 <Electronically signed by Hemant Sow DO> Date Hemant Sow DO Cosigner Signature (if applicable): Date CC: Hemant Sow DO; Dhara Taylor DO Signed DISCHARGE INSTRUCTION Observed: 05/10/2018 Status: F Source: [place] 12:44 PM [facility] REPOSITORY [facility] Medical Records Department [address] [place] [address] Instructions for Home/Discharge Instructions 05/10/18 1241 MR#: [id number] Acct: [id number] Name: AJIT GRIMALDO Rep #: [id number] : 1955 62 From: Hemant Sow DO [...] 05/10/2018 Status: F Source: [place] 11:17 AM [facility] REPOSITORY TYPE CODE TESTS RESULT OUT OF RANGE REFERENCE UNITS LAB L501.080 70-110 mg/dL Normal BEDSIDE GLU 94 Result Comment: MANAGEMENT OF PATIENT CARE PER NURSING PROTOCOL Performed By: #### L501.080 #### [facility] Point of Care [address] [place] [address] BEDSIDE GLUCOSE Collected: 05/10/2018 Status: F Source: [place] 6:53 AM [facility] REPOSITORY TYPE CODE TESTS RESULT OUT OF RANGE REFERENCE UNITS LAB L501.080 70-110 mg/dL Normal BEDSIDE GLU 97 Result Comment: MANAGEMENT OF PATIENT CARE PER NURSING PROTOCOL Performed By: #### L501.080 #### [facility] Point of Care [address] [place] [address] BEDSIDE GLUCOSE Collected: 05/09/2018 Status: F Source: [place] 9:47 PM [facility] REPOSITORY TYPE CODE TESTS RESULT OUT OF REFERENCE UNITS RANGE LAB L501.080 70-110 mg/dL High BEDSIDE GLU 117 Result Comment: MANAGEMENT OF PATIENT CARE PER NURSING PROTOCOL Performed By: #### L501.080 #### [facility] Point of Care [address] [place] [address] ECHOCARDIOGRAM COMPLETE Observed: 05/09/2018 Status: F Source: [place] 5:36 PM [facility] REPOSITORY [facility] Cardiovascular Services [address] [place] [address] Echo Complete 05/09/18 1316 MR#: [id number] Acct: [id number] Name: AJIT GRIMALDO Rep #: [id number] : 1955 62 From: Ajit Benavidez MD [...] Referring Physician: Dhara Taylor M.D. Performed By: Chata Dalal CLIFF 05/09/18 173 Date Ajit Benavidez MD CC: Kristal Taylor DO; Marino Santos DO Date Dictated: 05/09/18 1316 Date Transcribed: 05/09/18 5510 Plate And Weld Inspector: Signed BEDSIDE GLUCOSE Collected: 05/09/2018 Status: F Source: [place] 4:58 PM [facility] REPOSITORY TYPE CODE TESTS RESULT OUT OF RANGE REFERENCE UNITS LAB L501.080 70-110 mg/dL Normal BEDSIDE GLU 108 Result Comment: MANAGEMENT OF PATIENT CARE PER NURSING PROTOCOL Performed By: #### L501.080 #### [facility] Point of Care [address] [place] [address] AMMONIA Collected: 05/09/2018 Status: F Source: [place] 2:35 PM [facility] REPOSITORY TYPE CODE TESTS RESULT OUT OF REFERENCE UNITS RANGE LAB L503.5510 11-32 umol/L High AMMONIA 35.0 Performed By: #### L503.5510 #### [facility] [address] [place], [address] BEDSIDE GLUCOSE Collected: 05/09/2018 Status: F Source: [place] 12:05 PM [facility] REPOSITORY TYPE CODE TESTS RESULT OUT OF REFERENCE UNITS RANGE LAB L501.080 70-110 mg/dL High BEDSIDE GLU 129 Result Comment: MANAGEMENT OF PATIENT CARE PER NURSING PROTOCOL Performed By: #### L501.080 #### [facility] Point of Care [address] [place] [address] BEDSIDE GLUCOSE Collected: 05/09/2018 Status: F Source: [place] 6:39 AM [facility] REPOSITORY TYPE CODE TESTS RESULT OUT OF RANGE REFERENCE UNITS LAB L501.080 70-110 mg/dL Normal BEDSIDE GLU 87 Result Comment: MANAGEMENT OF PATIENT CARE PER NURSING PROTOCOL Performed By: #### L501.080 #### [facility] Point of Care [address] [place] [address] BASIC METABOLIC Collected: 05/09/2018 Status: F Source: [place] PROFILE (BMP) 5:28 AM [facility] REPOSITORY TYPE CODE TESTS RESULT OUT [...] 7 Performed By: #### L500.2500, L500.4100 #### [facility] [address] [facility] [place], [place], [address] LIPID PROFILE Collected: 05/09/2018 Status: F Source: [place] 5:28 AM [facility] REPOSITORY TYPE CODE TESTS RESULT OUT [...] 18 Performed By: #### L500.2500, L500.4100 #### [facility] [address] [facility] [place], [place], [address] VITAMIN B12 Collected: 05/08/2018 Status: F Source: [place] 11:03 PM [facility] REPOSITORY TYPE CODE TESTS RESULT OUT OF REFERENCE UNITS RANGE LAB L503.0105 211-911 pg/mL High Vitamin B12 941 Performed By: #### L503.0105 #### [facility] [address] [place], [address] AMMONIA Collected: 05/08/2018 Status: F Source: [place] 10:56 PM [facility] REPOSITORY TYPE CODE TESTS RESULT OUT OF REFERENCE UNITS RANGE LAB L503.5510 11-32 umol/L High AMMONIA 48.0 Performed By: #### L503.5510 #### [facility] [address] [place], [address] LIVER PROFILE Collected: 05/08/2018 Status: F Source: [place] 10:56 PM [facility] REPOSITORY TYPE CODE TESTS RESULT OUT [...] Performed By: #### L500.3400, L501.5200, L506.0250 #### [facility] [address] [place], [address] MAGNESIUM Collected: 05/08/2018 Status: F Source: [place] 10:56 PM [facility] REPOSITORY TYPE CODE TESTS RESULT OUT OF RANGE REFERENCE UNITS LAB L501.5200 1.6-2.6 mg/dL Normal MG 1.9 Performed By: #### L500.3400, L501.5200, L506.0250 #### [facility] [address] [place], [address] FOLATES, (FOLIC ACID) Collected: 05/08/2018 Status: F Source: [place] 10:56 PM [facility] REPOSITORY TYPE CODE TESTS RESULT OUT OF RANGE REFERENCE UNITS LAB L506.0250 3.1-55.4 ng/mL Normal FOLATES 31.10 Performed By: #### L500.3400, L501.5200, L506.0250 #### [facility] [address] [place], [address] HEMOGLOBIN A1C Collected: 05/08/2018 Status: F Source: [place] 10:56 PM [facility] REPOSITORY TYPE CODE TESTS RESULT OUT OF RANGE REFERENCE UNITS LAB L501.9985 4.2-6.3 % Normal HGB A1C 5.2 Performed By: #### L501.9985 #### [facility] [address] [place], [address] BEDSIDE GLUCOSE Collected: 05/08/2018 Status: F Source: [place] 10:42 PM [facility] REPOSITORY TYPE CODE TESTS RESULT OUT OF REFERENCE UNITS RANGE LAB L501.080 70-110 mg/dL High BEDSIDE GLU 137 Result Comment: MANAGEMENT OF PATIENT CARE PER NURSING PROTOCOL Performed By: #### L501.080 #### [facility] Point of Care [address] [place] [address] BRAIN WITHOUT Observed: 05/08/2018 Status: F Source: [place] CONTRAST 10:30 PM [facility] REPOSITORY [facility] Imaging Services [address] [place] [address] Brain without Contrast MR#: [id number] Acct: [id number] Name: AJIT GRIMALDO Rep #: [id number] : 1955 M 62 From: Gaby Lizama MD PCP: Dhara Taylor DO Status: ADM FRANCK Study: Brain without Contrast Date of Exam: 05/09/18 Exam# [id number] Ordering Dr: Kristal Larsen STUDY: MRI BRAIN [...] , CC: Kristal Larsen; Dhara Taylor DO Plate And Weld Inspector: Signed MRA HEAD ONLY WITHOUT Observed: 05/08/2018 Status: F Source: [place] CONTRAST 10:30 PM [facility] REPOSITORY [facility] Imaging Services [facility] [place] [address] MRA Head ONLY without Contrast MR#: [id number] Acct: [id number] Name: AJIT GRIMALDO Rep #: [id number] : 1955 M 62 From: Gaby Lizama MD PCP: Dhara Taylor DO Status: ADM FRANCK Study: MRA Head ONLY without Contrast Date of Exam: 05/09/18 Exam# [id number] Ordering Dr: Kristal Larsen STUDY: MRA OF THE HEAD WITHOUT CONTRAST REASON FOR EXAM: Male, 62 years old. Increasing confusion over the last 3-4 months. TECHNIQUE: 3-D tjrh-ls-yuieeq (TOF) imaging was performed with MIPs. The [...] Service support , CC: Kristal Taylor DO Plate And Weld Inspector: Signed MRA NECK WITHOUT Observed: 05/08/2018 Status: F Source: [place] CONTRAST 10:30 PM [facility] REPOSITORY [facility] Imaging Services [address] [place] [address] MRA Neck without Contrast MR#: [id number] Acct: [id number] Name: AJIT GRIMALDO Rep #: [id number] : 1955 M 62 From: Gaby Lizama MD PCP: Dhara Taylor DO Status: ADM FRANCK Study: MRA Neck without Contrast Date of Exam: 05/09/18 Exam# [id number] Ordering Dr: Kristal Larsen STUDY: MRA NECK [...] , CC: Kristal Larsen; Dhara Taylor DO Plate And Weld Inspector: Signed HISTORY AND PHYSICAL Observed: 05/08/2018 Status: F Source: [place] EXAM 9:40 PM [facility] REPOSITORY [facility] Medical Records Department [address] [place] [address] History and Physical 05/08/182104 MR#: [id number] Acct: [id number] Name: AJIT GRIMALDO Rep #: [id number] : 1955 62 From: Kristal Larsen PCP: [...] diabetes mellitus Status: Chronic Qualifiers: Diabetes mellitus [facility] insulin use: without terminal clerk use Diabetes mellitus complication status: without complication Qualified Code(s): E11.9 - Type 2 diabetes mellitus without complications (6) Bilateral leg edema Status: Chronic History of Present Illness Date of Admission: 05/08/18 Chief Complaint: Worsened confusion The patient is a 62 y/o M, Living in Detention w/ PMHx: Schizophrenia w/ Prior Suicide Attempts, [...] be performed who now re-presents to the [facility] ED on 05/08/18 with confusion and noted auditory hallucinations with fpc confirmed taking his schizophrenia medications, failure to understand how to perform basic tasks he normally performs over the last 48 hours with PCP and [facility] discussion with patient and now willingness to have MRI performed. [facility] notes that this is very different from [...] Anxiety, Depression, Prior suicide attempt, Schizophrenia Lives: Fpc Smoking Status: Current every day smoker Tobacco [...] is a 62 y/o M, Living in Detention w/ PMHx: Schizophrenia w/ Prior Suicide Attempts, Tobacco use, Chronic COPD, Diabetes mellitus type II, CHF Unclear Type, PVD w/ chronic BL LE lymphedema, LLE Venous Stasis Ulcer [facility] who presents to the [facility] ED on 05/08/18 with confusion and noted auditory hallucinations with [facility] confirmed taking his schizophrenia medications, failure to understand how to perform basic tasks he normally performs over the last 48 hours with PCP and [facility] discussion with patient and now willingness to [...] Lovenox. Code Visit OBSV E AND M: 57181 Initial observation care L3 05/08/180 <Electronically signed by Kristal Larsen > Date Kristal Larsen Cosigner Signature: Date (if applicable) CC: Kristal Larsen; Dhara Taylor DO Signed EMERGENCY DEPARTMENT Observed: 05/08/2018 Status: F Source: [place] SUMMARY 9:29 PM [facility] REPOSITORY [facility] Medical Records Department [address] [place] [address] Emergency Department Summary 05/08/18 1748 MR#: [id number] Acct: [id number] Name: AJIT GRIMALDO Rep #: [id number] : 1955 62 From: Petrona Rios MD PCP: Dhara Taylor DO Status: REG ER - ER Visit Summary Date of Service: 05/08/18 Chief Complaint: Confusion History of Present Illness: The patient is a 62 M presenting with intermittent confusion. His staff member from his [facility] states that he has been confused intermittently since April 16. He was admitted at that time for TIA workup. During that admission patient refused MRI. He was seen again in the ED on May 02 for continued intermittent confusion. He refused MRI during the ED stay as well. Today fpc discussed with his primary care physician Dr. Taylor who feels the patient needs an MRI according to [facility] staff and the patient. The patient is now agreeable to MRI. He was advised to come to the ED for further evaluation. [facility] staff states that he has been having [...] status, TIA This note was generated with Cerora dictation software. It may contain incorrect words, [...] your Primary Care Provider. Call [facility] ([phone]) or report to the closest Emergency Room. Call 911 if necessary. 05/08/182128 <Electronically signed by Petrona Rios MD> Date Petrona Rios MD Cosigner Signature (If Indicated): Date CC: Dhara Taylor DO BEDSIDE GLUCOSE Collected: 05/08/2018 Status: F Source: [place] 6:17 PM [facility] REPOSITORY TYPE CODE TESTS RESULT OUT OF RANGE REFERENCE UNITS LAB L501.080 70-110 mg/dL Normal BEDSIDE GLU 74 Result Comment: MANAGEMENT OF PATIENT CARE PER NURSING PROTOCOL Performed By: #### L501.080 #### [facility] Point of Care [address] [place] [address] URINE DRUG SCREEN Collected: 05/08/2018 Status: F Source: RODGER (VISTA) 6:11 PM [facility] REPOSITORY TYPE CODE TESTS RESULT OUT [...] Normal NEGATIVE Performed By: #### L505.5000 #### [facility] [address] [place], [address] URINALYSIS, COMPLETE Collected: 05/08/2018 Status: F Source: [place] 6:11 PM [facility] REPOSITORY Order Comment: Order Date: 05/08/18 How [...] URINE SEEN Performed By: #### L400.0001 #### [facility] [address] [place], [address] CBC W/DIFF, AUTOMATED Collected: 05/08/2018 Status: F Source: [place] 5:56 PM [facility] REPOSITORY TYPE CODE TESTS RESULT OUT [...] Lymph 1.81 Performed By: #### L100.0100 #### [facility] [address] [place], [address] PROTHROMBIN TIME W/INR Collected: 05/08/2018 Status: F Source: [place] 5:56 PM [facility] REPOSITORY TYPE CODE TESTS RESULT OUT OF RANGE REFERENCE UNITS LAB L300.4150 11.7-14.9 SECONDS High PROTIME 15.4 LAB L300.4200 Normal INR 1.2 Performed By: #### L300.3900, L300.4310 #### [facility] [address] [place], [address] PARTIAL THROMBOPLAST Collected: 05/08/2018 Status: F Source: [place] TIME 5:56 PM [facility] REPOSITORY TYPE CODE TESTS RESULT OUT OF RANGE REFERENCE UNITS LAB L300.4310 24.1-36.2 Seconds Normal PTT 30.4 Performed By: #### L300.3900, L300.4310 #### [facility] [address] [place], [place], [address] VALPROIC ACID Collected: 05/08/2018 Status: F Source: [place] (DEPAKENE) LEVEL 5:56 PM [facility] REPOSITORY TYPE CODE TESTS RESULT OUT OF RANGE REFERENCE UNITS LAB L501.8100 50-100 ug/mL Normal VALPROIC ACID 85 Performed By: #### L501.8100, L501.9100 #### [facility] [address] [place], [address] ALCOHOL, BLOOD Collected: 05/08/2018 Status: F Source: [place] (MEDICAL)-SERUM 5:56 PM [facility] REPOSITORY TYPE CODE TESTS RESULT OUT [...] coma Performed By: #### L501.8100, L501.9100 #### [facility] [address] [place], [place], [address] BASIC METABOLIC Collected: 05/08/2018 Status: F Source: [place] PROFILE (BMP) 5:56 PM [facility] REPOSITORY TYPE CODE TESTS RESULT OUT [...] 3 Performed By: #### L500.2500, L501.4010 #### [facility] [address] [place], [address] TROPONIN-I Collected: 05/08/2018 Status: F Source: [place] 5:56 PM [facility] REPOSITORY TYPE CODE TESTS RESULT OUT OF RANGE REFERENCE UNITS LAB L501.4010 <0.045 ng/mL Normal < 0.015 TROPONIN-I Result Comment: TROPONIN-I EXPECTED VALUES <0.045 Negative 0.045 - 0.590 Consistent with Cardiac Damage > OR = 0.600 Critical Value Not every elevated troponin is indicative of TN. These values should be used with clinical judgement in examining the patient's clinical picture for diagnosis. To establish a diagnosis of TN versus myocardial injury, there must be a demonstrated rise and/or fall in the troponin values, in addition to ischemic symptoms, EKG changes, new regional wall motion abnormality, and/or angiographical evidence. PLEASE NOTE: REFERENCE RANGES EDITED 18 Performed By: #### L500.2500, L501.4010 #### [facility] [address] [facility] [place], [address] BRAIN/HEAD WITHOUT Observed: 05/08/2018 Status: F Source: [place] CONTRAST 5:42 PM [facility] REPOSITORY [facility] Imaging Services [address] [place] [address] Brain/Head without Contrast MR#: [id number] Acct: [id number] Name: AJIT GRIMALDO Rep #: [id number] : 1955 62 From: Lorne Augustine MD PCP: Dhara Taylor DO Status: REG ER Study: Brain/Head without Contrast Date of Exam: 05/08/18 Exam# [id number] Ordering Dr: Petrona Rios MD STUDY: CT [...] CC: Petrona Rios MD; Dhara Taylor DO Plate And Weld Inspector: Signed CHEST 1 VIEW Observed: 05/08/2018 Status: F Source: [place] 5:42 PM [facility] REPOSITORY [facility] Imaging Services [address] [place] [address] Chest 1 View MR#: [id number] Acct: [id number] Name: AJIT GRIMALDO Rep #: [id number] : 1955 M 62 From: Lorne Augustine MD PCP: Dhara Taylor DO Status: REG ER Study: Chest 1 View Date of Exam: 05/08/18 Exam# [id number] Ordering Dr: Petrona Rios MD STUDY: X-RAY [...] CC: Petrona Rios MD; Dhara Taylor DO Plate And Weld Inspector: Signed 12 LEAD ELECTROCARDIOGRAM Observed: 05/06/2018 Status: F Source: [place] 2:30 PM [facility] REPOSITORY [facility] Cardiovascular Services [address] [place] [address] 12 Lead EKG 05/02/18 1555 MR#: [id number] Acct: [id number] Name: AJIT GRIMALDO Rep #: [id number] : 1955 62 From: Ajit Benavidez MD [...] ECG Confirmed by PRAMOD ALSTON, AJIT ([id number]), photo editor DANNA LIZAMA ([id number]) on 05/06/2018 2:29:59 PM Referred By: VAISHALI Confirmed By:AJIT BENAVIDEZ MD 05/06/18 1430 Date Ajit Benavidez MD CC: Gabriela Barrett MD; Dhara Taylor DO Signed EMERGENCY DEPARTMENT Observed: 05/03/2018 Status: F Source: [place] SUMMARY 12:28 AM [facility] REPOSITORY [facility] Medical Records Department [address] [place] [address] Emergency Department Summary 05/02/18 1648 MR#: [id number] Acct: [id number] Name: AJIT GRIMALDO Rep #: [id number] : 1955 62 From: Gabriela Barrett MD [...] presentation is not typical of his psychosis. [facility] staff member describes confusion with normal tasks [...] the week. Patient was monitored at the [facility] over the weekend. I did speak with Dr. Carter to update her on the patient's findings and plan as the patient was sent in by Dr. Taylor. Treatment Plan: [] Disposition: Discharge Impression: 1. Reported slurred speech, resolved 2. Schizoaffective disorder This note was generated with Cerora dictation software. It may contain incorrect words, [...] your Primary Care Provider. Call [facility] ([phone]) or report to the closest Emergency Room. Call 911 if necessary. 05/03/18 0028 <Electronically signed by Gabriela Barrett MD> Date Gabriela Barrett MD Cosigner Signature (If Indicated): Date CC: Dhara Taylor DO DISCHARGE INSTRUCTION Observed: 05/02/2018 Status: F Source: [place] 10:37 PM [facility] REPOSITORY [facility] Medical Records Department [address] [place] [address] Discharge Instruction 05/02/182233 MR#: [id number] Acct: [id number] Name: AJIT GRIMALDO Rep #: [id number] : 1955 62 From: Gabriela Barrett MD [...] your Primary Care Provider. Call [facility] ([phone]) or report to the closest Emergency Room. Call 911 if necessary. 05/02/182236 <Electronically signed by Gabriela Barrett MD> Date Gabriela Gomez Signature (If Indicated): Date CC: Dhara Taylor DO URINE DRUG SCREEN Collected: 05/02/2018 Status: F Source: [place] (VISTA) 5:00 PM [facility] REPOSITORY Order Comment: Order Date: 05/02/18 TYPE [...] Normal NEGATIVE Performed By: #### L505.5000 #### [facility] [address] [place], [address] URINALYSIS, COMPLETE Collected: 05/02/2018 Status: F Source: [place] 5:00 PM [facility] REPOSITORY Order Comment: Order Date: 05/02/18 How [...] URINE SEEN Performed By: #### L400.0001 #### [facility] [address] [place], [place], [address] CBC W/DIFF, AUTOMATED Collected: 05/02/2018 Status: F Source: [place] 5:00 PM [facility] REPOSITORY TYPE CODE TESTS RESULT OUT [...] Lymph 1.48 Performed By: #### L100.0100 #### [facility] [address] [facility] [place], [place], [address] ALCOHOL, BLOOD Collected: 05/02/2018 Status: F Source: [place] (MEDICAL)-SERUM 5:00 PM [facility] REPOSITORY TYPE CODE TESTS RESULT OUT [...] fatal coma Performed By: #### L501.9100 #### [facility] [address] [place], [place], [address] BASIC METABOLIC Collected: 05/02/2018 Status: F Source: [place] PROFILE (BMP) 5:00 PM [facility] REPOSITORY TYPE CODE TESTS RESULT OUT [...] Performed By: #### L500.2500, L500.3400, L501.4010 #### [facility] [address] [place], [address] LIVER PROFILE Collected: 05/02/2018 Status: F Source: [place] 5:00 PM [facility] REPOSITORY TYPE CODE TESTS RESULT OUT [...] Performed By: #### L500.2500, L500.3400, L501.4010 #### [facility] [address] [place], [address] TROPONIN-I Collected: 05/02/2018 Status: F Source: [place] 5:00 PM [facility] REPOSITORY TYPE CODE TESTS RESULT OUT OF RANGE REFERENCE UNITS LAB L501.4010 <0.045 ng/mL Normal < 0.015 TROPONIN-I Result Comment: TROPONIN-I EXPECTED VALUES <0.045 Negative 0.045 - 0.590 Consistent with Cardiac Damage > OR = 0.600 Critical Value Not every elevated troponin is indicative of TN. These values should be used with clinical judgement in examining the patient's clinical picture for diagnosis. To establish a diagnosis of TN versus myocardial injury, there must be a demonstrated rise and/or fall in the troponin values, in addition to ischemic symptoms, EKG changes, new regional wall motion abnormality, and/or angiographical evidence. PLEASE NOTE: REFERENCE RANGES EDITED 18 Performed By: #### L500.2500, L500.3400, L501.4010 #### [facility] [address] [place], [address] VALPROIC ACID Collected: 05/02/2018 Status: F Source: [place] (DEPAKENE) LEVEL 4:43 PM [facility] REPOSITORY TYPE CODE TESTS RESULT OUT OF RANGE REFERENCE UNITS LAB L501.8100 50-100 ug/mL Normal VALPROIC ACID 63 Performed By: #### L501.8100 #### [facility] [address] [place], [address] BRAIN/HEAD WITHOUT Observed: 05/02/2018 Status: F Source: [place] CONTRAST 4:43 PM [facility] REPOSITORY [facility] Imaging Services [address] [place] [address] Brain/Head without Contrast MR#: [id number] Acct: [id number] Name: AJIT GRIMALDO Rep #: [id number] : 1955 M 62 From: Edenilson Hernandez MD PCP: Dhara Taylor DO Status: REG ER Study: Brain/Head without Contrast Date of Exam: 05/02/18 Exam# [id number] Ordering Dr: Gabriela Barrett MD STUDY: CT [...] CC: Gabriela Barrett MD; Dhara Taylor DO Plate And Weld Inspector: Signed 12 LEAD ELECTROCARDIOGRAM Observed: 04/22/2018 Status: F Source: [place] 2:41 PM [facility] REPOSITORY [facility] Cardiovascular Services [address] [place] [address] 12 Lead EKG 04/16/18 1636 MR#: [id number] Acct: [id number] Name: AJIT GRIMALDO Rep #: [id number] : 1955 62 From: Moises Richard MD Attending Dr: Marino Santos DO Status: DIS FRANCK Ordering Dr: Pertona Rios MD Date: 04/16/18 Location: [facility] Sex: M C Admitted: 04/16/18 Test Reason : NERUO Blood Pressure : / mmHG Vent. Rate : 077 BPM Atrial Rate : 077 BPM P-R Int : 148 ms QRS Dur : 086 ms QT Int : 380 ms P-R-T Axes : 075 054 069 degrees QTc Int : 430 ms Normal sinus rhythm Normal ECG Confirmed by MOISES RICHARD MD ([id number]), photo editor DANNA LIZAMA (56) on 04/22/2018 2:40:45 PM Referred By: EDI Confirmed By:MOISES RICHARD MD 04/22/18 1440 Date Moises Richard MD CC: Petrona Rios MD; Dhara Taylor DO; Marino Santos DO Signed DISCHARGE SUMMARY Observed: 04/17/2018 Status: F Source: [place] 3:51 PM [facility] REPOSITORY [facility] Medical Records Department [address] [place] [address] Discharge Summary 04/17/18 1547 MR#: [id number] Acct: [id number] Name: AJIT GRIMALDO Rep #: [id number] : 1955 62 From: Marino Santos DO PCP: Dhara Taylor DO Status: DIS FRANCK Y [facility] Discharge Date and Diagnosis Date of Admission: 04/16/18 Date of Discharge: 04/17/18 - Primary Discharge Diagnosis #1 slurred uksdqd-wtlveuyfr-xedvlnxj unclear #2 schizophrenia #3 type 2 diabetes [...] M seen in the emergency room at [facility] after being sent in from a [facility] at which she resides due to a [...] was stable for discharge back to the fpc. The exact cause of the episode of slurred speech was unknown. On 04/17/18, patient was seen and examined and felt to be in stable condition for discharge back to his fpc Discharge Activity: Return to Normal Activity Weight [...] applicable Code Visit OBSV E AND M: 91382 Observation care discharge 04/17/18 9451 <Electronically signed by Marino Santos DO> Date Marino Santos DO Cosigner Signature (if applicable): Date CC: Dhara Taylor DO; Marino Santos DO Signed DISCHARGE INSTRUCTION Observed: 04/17/2018 Status: F Source: [place] 9:53 AM [facility] REPOSITORY [facility] Medical Records Department [address] [place] [address] Instructions for Home/Discharge Instructions 04/17/18 0952 MR#: [id number] Acct: [id number] Name: AJIT GRIMALDO Rep #: [id number] : 1955 62 From: Marino Santos DO [...] BEDSIDE GLUCOSE Collected: 04/17/2018 Status: F Source: [place] 6:52 AM [facility] REPOSITORY TYPE CODE TESTS RESULT OUT OF RANGE REFERENCE UNITS LAB L501.080 70-110 mg/dL Normal BEDSIDE GLU 98 Result Comment: MANAGEMENT OF PATIENT CARE PER NURSING PROTOCOL Performed By: #### L501.080 #### [facility] Point of Care [facility] [place] [address] [place] [address] LIPID PROFILE Collected: 04/17/2018 Status: F Source: [place] 6:52 AM [facility] REPOSITORY TYPE CODE TESTS RESULT OUT [...] VLDL 21 Performed By: #### L500.4100 #### [facility] [address] [place], [address] HISTORY AND PHYSICAL Observed: 04/16/2018 Status: F Source: [place] EXAM 11:52 PM [facility] REPOSITORY [facility] Medical Records Department [address] [place] [address] History and Physical 04/16/18 1854 MR#: [id number] Acct: [id number] Name: AJIT GRIMALDO Rep #: [id number] : 1955 62 From: Samuel Cervantes MD PCP: Dhara Taylor DO Status: ADM FRANCK Y Location: [place] [address] Problem List (1) TIA (transient ischemic attack) Status: Acute History of Present Illness Date of Admission: 04/16/18 Chief Complaint: slurred speech The patient is a 62 year old M with a significant history of COPD, schizophrenia, diabetes who was sent from a [facility] because of slurred speech. He presented to [...] schizophrenia, diabetes who was sent from a [facility]pc because of slurred speech which resolved whiles [...] provide appropriate information. Unable to reach emergency computer salesperson retail. Case management consult. DVT prophylaxis subcutaneous heparin. Code Visit Inpatient E AND M: 46608 Init Hosp L2 04/16/18 3598 <Electronically signed by Samuel Cervantes MD> Date Samuel Cervantes MD Cosigner Signature: Date (if applicable) CC: Samuel Cervantes MD; Dhara Taylor DO Signed BEDSIDE GLUCOSE Collected: 04/16/2018 Status: F Source: [place] 9:55 PM [facility] REPOSITORY TYPE CODE TESTS RESULT OUT OF RANGE REFERENCE UNITS LAB L501.080 70-110 mg/dL Normal BEDSIDE GLU 80 Result Comment: MANAGEMENT OF PATIENT CARE PER NURSING PROTOCOL Performed By: #### L501.080 #### [facility] Point of Care [address] [facility] [place] [address] TROPONIN-I Collected: 04/16/2018 Status: F Source: [place] 7:27 PM [facility] REPOSITORY TYPE CODE TESTS RESULT OUT OF RANGE REFERENCE UNITS LAB L501.4010 <0.045 ng/mL Normal < 0.015 TROPONIN-I Result Comment: TROPONIN-I EXPECTED VALUES <0.045 Negative 0.045 - 0.590 Consistent with Cardiac Damage > OR = 0.600 Critical Value Not every elevated troponin is indicative of TN. These values should be used with clinical judgement in examining the patient's clinical picture for diagnosis. To establish a diagnosis of TN versus myocardial injury, there must be a demonstrated rise and/or fall in the troponin values, in addition to ischemic symptoms, EKG changes, new regional wall motion abnormality, and/or angiographical evidence. PLEASE NOTE: REFERENCE RANGES EDITED 18 Performed By: #### L501.4010 #### [facility] [address] [facility] [place], [address] ALCOHOL, BLOOD Collected: 04/16/2018 Status: F Source: [place] (MEDICAL)-SERUM 7:27 PM [facility] REPOSITORY TYPE CODE TESTS RESULT OUT [...] fatal coma Performed By: #### L501.9100 #### [facility] [address] [place], [address] EMERGENCY DEPARTMENT Observed: 04/16/2018 Status: F Source: [place] SUMMARY 6:37 PM [facility] REPOSITORY [facility] Medical Records Department [address] [place] [address] Emergency Department Summary 04/16/18 1631 MR#: [id number] Acct: [id number] Name: AJIT GRIMALDO Rep #: [id number] : 1955 62 From: Petrona Rios MD PCP: Dhara Taylor DO Status: ADM FRANCK - ER Visit Summary Date of Service: 04/16/18 Chief Complaint: Slurred speech History of Present Illness: The patient is a 62 M presenting with sudden onset of slurred speech. This started around 2 PM. Patient lives in a fpc. His blood sugar was checked and was [...] Impression: TIA This note was generated with Cerora dictation software. It may contain incorrect words, spelling, and punctuation that were not noted in review of the chart prior to signing ED Disposition - Plan for ED Patient: Chief Complaint: Neuro S/Sx What to do if you have Problems For any increased pain, shortness of breath, bleeding, nausea or vomiting, chest pain, or any unexpected problems, contact your Primary Care Provider. Call [employer] [facility] ([phone]) or report to the closest Emergency Room. Call 911 if necessary. 04/16/18 8887 <Electronically signed by Petrona Rios MD> Date Petrona Rios MD Cosigner Signature (If Indicated): Date CC: Dhara Taylor DO CHEST 1 VIEW Observed: 04/16/2018 Status: F Source: [place] 4:23 PM [facility] REPOSITORY [facility] Imaging Services [address] [place] [address] Chest 1 View MR#: [id number] Acct: [id number] Name: AJIT GRIMALDO Rep #: [id number] : 1955 M 62 From: Jackson Conde DO PCP: Dhara Taylor DO Status: PRE ER Study: Chest 1 View Date of Exam: 04/16/18 Exam# [id number] Ordering Dr: Petrona Rios MD STUDY: X-RAY [...] Jackson Conde DO at 16:55 EDT Tel [phone], Service support , CC: Petrona Rios MD; Dhara Taylor DO Plate And Weld Inspector: Signed BRAIN/HEAD WITHOUT Observed: 04/16/2018 Status: F Source: [place] CONTRAST 4:23 PM [facility] REPOSITORY [facility] Imaging Services [address] [place] [address] Brain/Head without Contrast MR#: [id number] Acct: [id number] Name: AJIT GRIMALDO Rep #: [id number] : 1955 M 62 From: Jackson Conde DO PCP: Dhara Taylor DO Status: REG ER Study: Brain/Head without Contrast Date of Exam: 04/16/18 Exam# [id number] Ordering Dr: Petrona Rios MD STUDY: CT [...] Jackson Conde DO at 17:16 EDT Tel [phone], Service support , CC: Petrona Rios MD; Dhara Taylor DO Plate And Weld Inspector: Signed CBC W/DIFF, AUTOMATED Collected: 04/16/2018 Status: F Source: [place] 4:20 PM [facility] REPOSITORY TYPE CODE TESTS RESULT OUT [...] Lymph 1.48 Performed By: #### L100.0100 #### [facility] [address] [place], [address] BASIC METABOLIC Collected: 04/16/2018 Status: F Source: [place] PROFILE (BMP) 4:20 PM [facility] REPOSITORY TYPE CODE TESTS RESULT OUT [...] 7 Performed By: #### L500.2500, L501.4010 #### [facility] [address] [facility] [place], [place], [address] TROPONIN-I Collected: 04/16/2018 Status: F Source: [place] 4:20 PM [facility] REPOSITORY TYPE CODE TESTS RESULT OUT OF RANGE REFERENCE UNITS LAB L501.4010 <0.045 ng/mL Normal < 0.015 TROPONIN-I Result Comment: TROPONIN-I EXPECTED VALUES <0.045 Negative 0.045 - 0.590 Consistent with Cardiac Damage > OR = 0.600 Critical Value Not every elevated troponin is indicative of TN. These values should be used with clinical judgement in examining the patient's clinical picture for diagnosis. To establish a diagnosis of TN versus myocardial injury, there must be a demonstrated rise and/or fall in the troponin values, in addition to ischemic symptoms, EKG changes, new regional wall motion abnormality, and/or angiographical evidence. PLEASE NOTE: REFERENCE RANGES EDITED 18 Performed By: #### L500.2500, L501.4010 #### [facility] [address] [place], [address] PROTHROMBIN TIME W/INR Collected: 04/16/2018 Status: F Source: [place] 4:20 PM [facility] REPOSITORY TYPE CODE TESTS RESULT OUT OF RANGE REFERENCE UNITS LAB L300.4150 11.7-14.9 SECONDS Normal PROTIME 14.4 LAB L300.4200 Normal INR 1.1 Performed By: #### L300.3900, L300.4310 #### [facility] [address] [facility] [address] [facility] [address] PARTIAL THROMBOPLAST Collected: 04/16/2018 Status: F Source: [place] TIME 4:20 PM [facility] REPOSITORY TYPE CODE TESTS RESULT OUT OF RANGE REFERENCE UNITS LAB L300.4310 24.1-36.2 Seconds Normal PTT 30.6 Performed By: #### L300.3900, L300.4310 #### [facility] [address] [facility] [facility] [address] BEDSIDE GLUCOSE Collected: 04/16/2018 Status: F Source: [place] 4:11 PM [facility] REPOSITORY TYPE CODE TESTS RESULT OUT OF RANGE REFERENCE UNITS LAB L501.080 70-110 mg/dL Normal BEDSIDE GLU 84 Result Comment: MANAGEMENT OF PATIENT CARE PER NURSING PROTOCOL Performed By: #### L501.080 #### [facility] Point of Care [address] [facility] [place] [address] EMERGENCY DEPARTMENT Observed: 04/16/2018 Status: F Source: [place] SUMMARY 7:17 AM [facility] REPOSITORY [facility] Medical Records Department [address] [place] [address] Emergency Department Summary 04/16/18 0514 MR#: [id number] Acct: [id number] Name: AJIT GRIMALDO Sera Rep #: [id number] : 1955 62 From: Quentin Winkler MD PCP: Dhara Taylor DO Status: DEP ER - ER Visit Summary Date of Service: 04/16/18 Chief Complaint: Left arm pain History of Present Illness: The patient is a 62 M presenting for evaluation secondary left arm pain. Patient has a underlying history of living in a fpc and has schizophrenia that is reasonably controlled. [...] approved by a physician and his nursing heating and blending supervisor and was unable to take any [...] arm pain This note was generated with Cerora dictation software. It may contain incorrect words, [...] problems, contact your Primary Care Provider. Call [employer] [facility] ([phone]) or report to the closest Emergency Room. Call 911 if necessary. 04/16/18 0717 <Electronically signed by Quentin Winkler MD> Date Quentin Winlker MD Cosigner Signature (If Indicated): Date CC: Dhara Taylor DO WOUND CTR HISTORY Observed: 03/21/2018 Status: F Source: [place] AND PHYSICAL 8:48 PM [facility] REPOSITORY [facility] [address] [place] [address] History AND Physical 03/21/182028 MR#: [id number] Acct: [id number] Name: AJIT GRIMALDO Rep #: [id number] : 1955 62 From: Samantha Manuel DO [...] Chronic Current Visit: Yes Qualifiers: Diabetes mellitus terminal clerk insulin use: without [place] [facility] use Diabetes mellitus complication status: without complication [...] odor or drainage. He lives in a fpc and cares for himself with supervision from staff. He is accompanied today by his insurance case manager, Isaac. Past Medical History Past [...] Paternal Diabetes Sibling Hypertension Lives: - - fpc Smoking Status: Current every day smoker Tobacco [...] Date Recorded By Document 03/21/18 13:53 DL [id number] 03/21/18 14:14 DL Wound Center Nurse 1 [...] Date Recorded By Document 03/21/18 15:45 DV [id number] 03/21/18 15:51 DV Psych/Mental Status: Flat Affect Debridement Note Post-Debridement Measurements/Treatment WC - Nurse 2 - General Ulcer CM Notes Start: 03/21/18 13:50 Freq: Status: Active Protocol: Activity Type Activity Date Activity User E-Sign Co-Sign Detail Recorded Client Recorded Date Recorded By Document 03/21/18 15:45 DV [id number] 03/21/18 15:51 DV Wound Center Nurse 2 [...] EMERGENCY DEPARTMENT Observed: 03/18/2018 Status: F Source: [place] SUMMARY 11:42 PM [facility] REPOSITORY [facility] Medical Records Department [address] [place] [address] Emergency Department Summary 03/18/18 1815 MR#: [id number] Acct: [id number] Name: AJIT GRIMALDO Rep #: [id number] : 1955 62 From: Petrona Rios MD [...] forearm pain This note was generated with Cerora dictation software. It may contain incorrect words, [...] your Primary Care Provider. Call [facility] ([phone]) or report to the closest Emergency Room. Call 911 if necessary. 03/18/18 4851 <Electronically signed by Petrona Rios MD> Date Petrona Rios MD Cosigner Signature (If Indicated): Date CC: Dhara Taylor DO DISCHARGE INSTRUCTION Observed: 03/18/2018 Status: F Source: [place] 6:18 PM [facility] REPOSITORY [facility] Medical Records Department [address] [place] [address] Discharge Instruction 03/18/181816 MR#: [id number] Acct: [id number] Name: AJIT GRIMALDO Rep #: [id number] : 1955 62 From: Petrona Rios MD [...] your Primary Care Provider. Call [facility] ([phone]) or report to the closest Emergency Room. Call 911 if necessary. 03/18/181817 <Electronically signed by Petroan Rios MD> Date Petrona Rios MD Cosigner Signature (If Indicated): Date CC: Dhara Taylor DO PLATELET COUNT Collected: 01/21/2018 Status: F Source: [place] 8:17 AM [facility] REPOSITORY TYPE CODE TESTS RESULT OUT OF RANGE REFERENCE UNITS LAB L100.1900 150-450 K/mm3 Normal PLT 178 Performed By: #### L100.1900 #### [facility] [address] [facility] [place], [address] VALPROIC ACID Collected: 01/21/2018 Status: F Source: [place] (DEPAKENE) [facility] 8:17 AM [facility] REPOSITORY TYPE CODE TESTS RESULT OUT OF RANGE REFERENCE UNITS LAB L501.8100 50-100 ug/mL Normal VALPROIC ACID 73 Performed By: #### L501.8100 #### [facility] [address] [place], [address] AST(SGOT) Collected: 01/21/2018 Status: F Source: [place] 8:17 AM [facility] REPOSITORY TYPE CODE TESTS RESULT OUT OF RANGE REFERENCE UNITS LAB L501.4100 15-37 U/L Normal AST 20 Performed By: #### L501.4100, L501.4405 #### [facility] [address] [facility] [place], [address] ALANINE AMINOTRANSFERAS Collected: 01/21/2018 Status: F Source: [place] (SGPT) 8:17 AM [facility] REPOSITORY TYPE CODE TESTS RESULT OUT OF RANGE REFERENCE UNITS LAB L501.4405 16-61 U/L Low ALT 15 Performed By: #### L501.4100, L501.4405 #### [facility] [address] [place], [address] EMERGENCY DEPARTMENT Observed: 11/30/2017 Status: F Source: [place] SUMMARY 3:45 PM [facility] REPOSITORY [facility] Medical Records Department [address] [place] [address] Emergency Department Summary 11/26/17 1320 MR#: [id number] Acct: [id number] Name: AJIT GRIMALDO Rep #: [id number] : 1955 62 From: Blayne Caldwell DO [...] extremity cellulitis] This note was generated with Cerora dictation software. It may contain incorrect words, [...] your Primary Care Provider. Call [facility] ([phone]) or report to the closest Emergency Room. Call 911 if necessary. 11/30/17 1545 <Electronically signed by Blayne Caldwell DO> Date Blayne Caldwell DO Cosigner Signature (If Indicated): Date CC: Dhara Claudia DO VENOUS DUPLEX LOWER Observed: 11/26/2017 Status: F Source: [place] EXTREMITY 3:22 PM [facility] REPOSITORY [facility] Cardiovascular Services [address] [place] [address] Venous Duplex US - Kane Extrem 11/26/17 1349 MR#: [id number] Acct: [id number] Name: AJIT GRIMALDO Rep #: [id number] : 1955 62 From: Roger Carney MD [...] Dictated: 11/26/17 1349 Date Transcribed: 11/26/17 1522 Plate And Weld Inspector: Signed DISCHARGE INSTRUCTION Observed: 11/26/2017 Status: F Source: [place] 2:36 PM [facility] REPOSITORY [facility] Medical Records Department [address] [place] [address] Discharge Instruction 11/26/17 1435 MR#: [id number] Acct: [id number] Name: AJIT GRIMALDO Rep #: [id number] : 1955 62 From: Blayne Caldwell DO [...] your Primary Care Provider. Call [facility] ([phone]) or report to the closest Emergency Room. Call 911 if necessary. 11/26/17 1436 <Electronically signed by Blayne Caldwell DO> Date Blayne Caldwell DO Cosigner Signature (If Indicated): Date CC: Dhara Taylor DO CBC W/DIFF, AUTOMATED Collected: 11/26/2017 Status: F Source: [place] 1:05 PM [facility] REPOSITORY TYPE CODE TESTS RESULT OUT [...] Lymph 1.28 Performed By: #### L100.0100 #### [facility] [address] [place], [place], [address] BASIC METABOLIC Collected: 11/26/2017 Status: F Source: [place] PROFILE ([facility]) 1:05 PM [facility] REPOSITORY TYPE CODE TESTS RESULT OUT [...] GAP 4 Performed By: #### L500.2500 #### [facility] [address] [place], [address] PROGRESS Observed: 11/26/2017 Status: COMPLETED Source: [place] 12:12 PM [facility] [place] REPOSITORY [facility] ID: [id number] Author: Nova Méndez Service: (none) Author Type: [...] Dust; Mold; Nicotine; Sulfa (Sulfonamide Antibiotics); Bug [place] [Other] MEDICATIONS aspirin, enteric coated (ASPIRIN, ENTERIC COATED) 325 mg EC tablet TAKE 1 TABLET BY MOUTH ONCE DAILY. TAKE WITH FOOD. DAILY-LLYA tablet TAKE 1 TABLET DAILY VENTOLIN HFA [...] Patient verbalizes understanding and will inform his care director rn from his fpc. A note was given to him with the provider recommendation. Patient is agreeable. Face sheet faxed to [facility] and report called. Nova Méndez CNP CNCO Observed: 11/26/2017 Status: COMPLETED Source: [place] 12:00 AM [facility] REPOSITORY Letter Text [facility] Dev Bhatt CNP [address] [place], [place] [address] 11/26/2017 Ajit Grimaldo CC# [id number] [address] [place] [id number] TO WHOM IT MAY CONCERN: This is to confirm that Ajit Grimaldo had an appointment and was seen at [facility] in the Department of Urgent [...] REACTION SEVERITY SOURCE 09/06/2018 Drug sulfamethoxazo Unknown [place] Allergy/998483422(S le/[id number]( Community NOMED CT) RXNORM) Hospital Repository 09/06/2018 Drug trimethoprim/F Unknown [place] Allergy/533708885(S 891932246(RXNO [facility] NOM[facility]) RM) Hospital Repository 09/06/2018 Drug Penicillins/F0 Unknown Unknown [place] Allergy/032611106(S 49851686(RXNOR [facility] NOM[facility]) M) Hospital Repository 04/15/2015 DRUG NICOTINE SHORTNESS OF [place] INGREDI/114455515(S Clinic Main NOMED CT) [place] Repository 02/15/2014 Drug SULFA UNKNOWN [place] Class/383230752(SNO (SULFONAMIDE Clinic Main MED CT) ANTIBIOTICS) [place] Repository 07/30/2005 Environ/029084046(S DUST [place] NOMED [facility]) Clinic Main [place] Repository 07/30/2005 DRUG MOLD [place] INGREDI/671876336(S [facility] Main NOMED CT) [place] Repository 07/30/2005 Miscellaneous OTHER SWELLING [place] Allergy/353735998(S [facility] Main NOMED CT) [place] Repository ENCOUNTERS ENCOUNTERS ADMIT/DISCHARGE ACCOUNT ADMITTING ENCOUNTER LOCATION SOURCE NUMBER CLASS 09/06/2018/09/06/20 [id number] Emergency [address] ing:ED Repository 09/05/2018/09/05/20 [id number] Emergency [address] ing:ED Repository 09/02/2018 [id number] Ambulatory [facility] ing:LAB Repository 08/15/2018 [id number] Ambulatory Building:[facility] OHIP Practices Repository 06/23/2018 [id number] Ambulatory [facility] ing:LAB Repository 05/17/2018 [id number] Ambulatory [facility] Hospital ing:WC Repository 05/08/2018/05/10/20 [id number] Kristal Larsen Ambulatory [address] ing:PCURoom: Repository [id number]: 1 05/08/2018 [id number] White, Kristal Ambulatory BMSBuilding:Mari Soares MS.[facility] Repository 05/08/2018 [id number] White Kristal Ambulatory BMSBuilding:Mari Soares MS.[facility] Repository 05/08/2018/05/10/20 [id number] Ambulatory BMSBuilding:W [place] [facility] Repository 05/08/2018 [id number] Ambulatory BMSBuilding:Mari Soares MS.[facility] Repository 05/02/2018/05/02/20 [id number] Emergency [address] Hospital ing:ED Repository 04/18/2018/05/06/20 [id number] Ambulatory [address] Hospital ing:WC Repository 04/16/2018/04/17/20 [id number] Agy[place], Ambulatory [address] ing:PCURoom: Repository [id number]: 1 04/16/2018 [id number] Agyepong, Ambulatory BMSBuilding:Mari Baker MS.[facility] Repository 04/16/2018 [id number] Agyepon, Ambulatory BMSBuilding:Mari Baker MS.[facility] Repository 04/16/2018/04/16/20 [id number] Emergency [address] Hospital ing:ED Repository 04/04/2018/04/05/20 [id number] Ambulatory [address] Hospital ing:WC Repository 03/18/2018/03/18/20 [id number] Emergency [address] Hospital ing:ED Repository 01/21/2018 [id number] Ambulatory [facility] ing:LAB Repository 11/26/2017/11/26/19 [id number] Emergency [place] [address] [place] [address] ing:ED Repository 11/26/2017 [id number] Ambulatory BMSBuilding:B [facility] MS.[facility] Repository 11/26/2017/11/27/19 [id number] Ambulatory [address] Repository PAYERS PAYERS ENCOUNTER GUARANTOR PAYER SUBSCRIBER SOURCE 09/06/2018 AJIT GRIMALDO1410 Primary AJIT SIMONB: [place] Insurance:[facility] [id number] [facility] [place] [facility] [address]Agr: (330) Number: Repository [phone] () [id number] Date:6246-78-94KOHP [place]S [address] [address]BD: 09/06/2018 Secondary NOT GIVENUNK [place] Insurance:SELF PAY [facility] Number: Effective Repository Date:2018-09-06 09/05/2018 AJIT MADISON0 Primary AJIT SIMONB: [place] Insurance:[facility] [id number] [facility] [place] [facility] [address]Hqu: (330) Number: Repository [phone] () [id number] Date:9511-96-24SYDL [address]S [address] [place] [address]UF: 09/05/2018 Secondary NOT GIVENUNK [place] Insurance:SELF PAY [facility] Number: Effective Repository Date:2018-09-05 09/02/2018 AJIT GRIMALDO1410 Primary AJIT SIMONB: [place] Insurance:[facility] [id number] [facility] [place] [facility] [address]Ize: (330) Number: Repository [phone] () [id number] Date:5491-88-56PKEA [address]S [address] [address]TV: 09/02/2018 Secondary NOT GIVENUNK [place] Insurance:SELF PAY [facility] Number: Effective Repository Date:2018-09-02 08/15/2018 Ajit SimonB: Primary Ajit SimonB: OHIP [facility] [id number] Insurance:[facility]/ [id number] Repository Sawyer Harrell, [facility] [place], [place] [address]Qfo: Number: [place] [address]Tmt: [id number] (HP)Tel: (189) Date:4833-84-63Cyrg (HP) [phone] () Name:[address] [id number]: 06/23/2018 AJIT MADISON0 Primary AJIT SIMONB: [place] Insurance:[facility] [id number] [place], [place] *[place] [facility] [address]Fzs: (357) Number: Repository [phone] () [id number] Date:8334-81-25OGAY [address]S [address] [place] [address]OQ: 06/23/2018 Secondary NOT GIVENUNK [place] Insurance:SELF PAY [facility] Number: Effective Repository Date:2018-06-23 05/17/2018 AJIT Zamora [id number] Primary AJIT SIMONB: [place] [address], Insurance:[facility] [id number] Counts include 234 beds at the [facility] [address]Lhg: *IN [facility] Number: Repository () [id number] Date:6960-59-35IQZX [address]S [address], [place] [address]SU: 05/17/2018 Secondary NOT GIVENUNK [place] Insurance:SELF PAY [facility] Number: Effective Repository Date:2018-05-07 05/08/2018 AJIT GRIMALDO1410 Primary AJIT SIMONB: [place], Insurance:[facility] [id number] Counts include 234 beds at the [facility] [address]Kqn: *IN [facility] Number: Repository () [id number] Date:4718-23-33DVPA [address]S [address] [place] [address]TQ: 05/08/2018 Secondary NOT GIVENUNK [place] Insurance:SELF PAY [facility] Number: Effective Repository Date:2018-05-08 05/08/2018 AJIT GRIMALDO1410 Primary AJIT Sera GRIMALDODOB: [place], Insurance:[facility] [id number] [facility] [place] [address]Eue: *[place] [facility] Number: Repository () [id number] Date:5009-94-84KJHV CLAIMS [address], [place] [address]WF: 05/08/2018 Secondary NOT GIVENUNK [place] Insurance:SELF PAY [facility] Number: Effective Repository Date:2018-05-08 05/08/2018 AJIT MADISON0 Primary AJIT Sera GRIMALDODOB: [place], Insurance:[facility] [facility] [id number] [facility] [place] [address]Wtk: *[place] [facility] Number: Repository () [id number] Date:8592-27-15LSDB CLAIMS [address] [place] [address]RK: 05/08/2018 Secondary NOT GIVENUNK [place] Insurance:SELF PAY [facility] Number: Effective Repository Date:2018-05-08 05/08/2018 AJIT GRIMALDO1410 Primary AJIT Sera GRIMALDODOB: [place], Insurance:[employer] [facility]S [id number] [facility] [place] [address]Lyh: *[place] [facility] Number: Repository () [id number] Date:8946-44-85GPJX CLAIMS [address] [place] [address]GQ: 05/08/2018 Secondary NOT GIVENUNK [place] Insurance:SELF PAY [facility] Number: Effective Repository Date:2018-05-08 05/08/2018 AJIT GRIMALDO1410 Primary AJIT SIMONB: [place], Insurance:[facility] [id number] [facility] [place] [address]Tde: *[place] [facility] Number: Repository () [id number] Date:9857-90-90QRGM [address]S [address] [address]ML: 05/08/2018 Secondary NOT GIVENUNK [place] Insurance:SELF PAY [facility] Number: Effective Repository Date:2018-05-08 05/02/2018 AJIT GRIMALDO547 Primary AJIT SIMONB: [place] [address] [address], Insurance:[facility] [id number] [place] [address]Pga: *[place] [facility] Number: Repository () [id number] Date:4467-44-79NOCL CLAIMS [address] [place] [address]EC: 05/02/2018 Secondary NOT GIVENUNK [place] Insurance:SELF PAY [facility] Number: Effective Repository Date:2018-05-02 04/18/2018 AJIT GRIMALDO547 Primary AJIT SIMONB: [place] [address] [address], Insurance:[facility] [id number] [facility] [place] [address]Zsf: *IN [facility] Number: Repository () [id number] Date:9021-19-47JSOW CLAIMS [address] [place] [address]FB: 04/18/2018 Secondary NOT GIVENUNK [place] Insurance:SELF PAY [facility] Number: Effective Repository Date:2018-04-06 04/16/2018 AJIT GRIMALDO547 Primary AJIT SIMONB: [place] [address] [address], Insurance:[facility] [id number] [facility] [place] [address]Fxr: *IN [facility] Number: Repository () [id number] Date:2046-07-25ZQCM [address]S [address] [address]UW: 04/16/2018 Secondary NOT GIVENUNK [place] Insurance:SELF PAY [facility] Number: Effective Repository Date:2018-04-16 04/16/2018 AJIT GRIMALDO547 Primary AJIT GRIMALDODOB: [place] [address], Insurance:[facility]CARE CRS [id number] [facility] [place] [address]Mmp: *[place] [facility] Number: Repository () [id number] Date:0505-07-03VGAW CLAIMS [address], [place] [address]XK: 04/16/2018 Secondary NOT GIVENUNK [place] Insurance:SELF PAY [facility] Number: Effective Repository Date:2018-04-16 04/16/2018 AJIT PATEL7 Primary AJIT GRIMALDODOB: [place] [address], Insurance:[facility] [id number] [facility] [place] [address]Teh: *IN [facility] Number: Repository () [id number] Date:9273-20-79XAHF CLAIMS [address], [place] [address]IN: 04/16/2018 Secondary NOT GIVENUNK [place] Insurance:SELF PAY [facility] Number: Effective Repository Date:2018-04-16 04/16/2018 AJIT GRIMALDO547 Primary AJIT GRIMALDODOB: [place] [address] [address], Insurance:[facility] [id number] [facility] [place] [address]Xvu: *IN [facility] Number: Repository () [id number] Date:2518-39-43SSJL [address]S [address] [address]HP: 04/16/2018 Secondary NOT GIVENUNK [place] Insurance:SELF PAY [facility] Number: Effective Repository Date:2018-04-16 04/04/2018 AJIT GRIMALDO547 Primary AJIT GRIMALDOB: [place] [address], Insurance:[facility] [id number] [facility] [place] [address]Cow: *[place] [facility] Number: Repository () [id number] Date:8670-63-58FBXE [address]S [address] [address]AW: 04/04/2018 Secondary NOT GIVENUNK [place] Insurance:SELF PAY [facility] Number: Effective Repository Date:2018-03-21 03/18/2018 AJIT GRIMALDO547 Primary AJIT GRIMALDOB: [place] [address] [address], Insurance:[facility] [id number] [facility] [place] [address]Maf: *IN [facility] Number: Repository () [id number] Date:6172-19-28MQXY CLAIMS [address] [place] [address]AZ: 03/18/2018 Secondary NOT GIVENUNK [place] Insurance:SELF PAY [facility] Number: Effective Repository Date:2018-03-18 01/21/2018 Ajit Grimaldo547 Primary AJIT GRIMALDOB: [place] [address], Insurance:[facility] [id number] [facility] [place] [address]Vfn: *IN [facility] Number: Repository () [id number] Date:9701-65-15XSVP CLAIMS [address] [place] [address]DD: 01/21/2018 Secondary NOT GIVENUNK [place] Insurance:SELF PAY [facility] Number: Effective Repository Date:2018-01-21 11/26/2017 Ajit Grimaldo547 Primary AJIT GRIMALDOB: [place] [address], Insurance:[facility] [id number] [facility] [place] [address]Qtt: *IN [facility] Number: Repository () [id number] Date:7542-22-32EGGL [address], [place] [address]CG: 11/26/2017 Secondary NOT GIVENUNK [place] Insurance:SELF PAY [facility] Number: Effective Repository Date:2017-11-26 11/26/2017 Ajit Grimaldo547 Primary AJIT ROBISON: [place], Insurance:[facility] [id number] [address]Odg: *IN [facility] Number: Repository () [id number] Date:7587-58-99IAWO CLAIMS [facility] [address] [place] [address]JD: 11/26/2017 Secondary NOT GIVENUNK [place] Insurance:SELF PAY [facility] Number: Effective Repository Date:2017-11-26
== END 2018-09-06 13:16 | disposition home or self-care (01) ==
LOC: ED 12:52
PROVIDERS: Emergency Provider Emergency Medicine; Family Provider Internal Medicine; PCP Internal Medicine
DX: R10.13 Epigastric pain (principal); I11.0 Hypertensive heart disease with heart failure; I50.9 Heart failure, unspecified; J44.9 Chronic obstructive pulmonary disease, unspecified; E11.9 Type 2 diabetes mellitus without complications; F20.9 Schizophrenia, unspecified; Z86.73 Personal history of transient ischemic attack (TIA), and cerebral infarction without residual deficits; Z72.0 Tobacco use; Z79.51 Long term (current) use of inhaled steroids; Z79.82 Long term (current) use of aspirin; Z79.84 Long term (current) use of oral hypoglycemic drugs; Z79.899 Other long term (current) drug therapy
CPT/HCPCS: 99284

== ENCOUNTER → 2018-10-17 08:25 | Outpatient (CLI) | payer MEDICARE, SELFPAY ==
[2018-10-17 08:34] LABS: Bacteria 0 SEEN /hpf (None Seen); Mucous, Urine 0 SEEN /hpf (<or=2+); Red Blood Cells-Urine 0 SEEN /hpf (0-5); Squamous Epithelial Cells - UA 0 SEEN /hpf (0-5); White Blood Cells 0 SEEN /hpf (0-5)
[2018-10-17 09:44] LABS: Absolute Lymphocyte Count 1.48 X10^3/ul (0.83-4.51); Absolute Neutrophil Count 3.9 X10^3/uL (2.0-7.7); Basophil# 0.03 X10^3/uL; Basophil% 0.5 % (0-1); Eosinophil# 0.17 X10^3/uL; Eosinophils% 2.8 % (0-5); Hematocrit 41.6 % (40-54); Hemoglobin 13.8 g/dl (13.0-16.5); Lymphocyte # 1.48 X10^3/ul (4.0); Lymphocyte % 24.5 % (19-41); Mean Corp Hgb Conc 33.2 g/gl (32-36); Mean Corpuscular Hgb 29.8 pg (27.0-32.0); Mean Corpuscular Volume 89.8 fL (80-94); Mean Platelet Vol. 10.4 fl (6.2-12.0); Monocyte# 0.45 X10^3/uL; Monocyte% 7.5 % (0-10); Neutrophil # 3.88 X10^3/uL (2.7-7.7); Neutrophil % 64.2 % (47-70); Platelet Count 218 K/mm3 (150-450); RBC Distribution Width CV 13.2 % (11.6-14.6); Red Blood Count 4.63 M/mm3 (4.6-6.2)
[2018-10-17 09:45] LABS: POSITIVE COUNT NO; POSITIVE DIFFERENTIAL NO; POSITIVE MORPHOLOGY NO
[2018-10-17 09:48] LABS: Color, Urine Yellow (Yellow); Glucose, Dipstick Normal (Normal); Ketone-Dipstick Negative (Negative); Leukocyte Esterase-Dipstick Negative /ul (Negative); Nitrite-Dipstick Negative (Negative); Occult Blood-Urine Negative /ul (Negative); Protein-Dipstick Negative (Negative); Urine Bilirubin Dipstick Negative (Negative); Urine Clarity Clear (Clear); Urine Urobilinogen Normal (Normal); Urine pH 6.5 (5.0 - 8.0)
[2018-10-17 10:32] LABS: ALB/GLOB Ratio 1.3 RATIO (0.9-2.4); AST(SGOT) 18 U/L (15-37); Alanine Aminotransfer ALT/SGPT 15 U/L (16-61); Albumin, Serum 3.9 g/dL (3.2-5.0); Alkaline Phosphatase 92 U/L (45-117); Anion Gap 7 (5-15); BUN 20 mg/dL (7-18); Calcium,Total 8.8 mg/dL (8.5-10.1); Chloride 102 mmol/L (98-107); Creatinine, Serum 1.11 mg/dL (0.70-1.30); EST Glomerular Filtration Rate 71 mL/min (>60); Est Glom Filt Rate - Afr Amer 86 mL/min (>60); Globulin 3.1 g/dL (2.2-4.2); Glucose 105 mg/dL (74-106); Potassium 4.4 mmol/L (3.5-5.1); Sodium Level 137 mmol/L (136-145); Thyroid Stim Hormone (TSH) 4.37 uIU/mL (0.358-3.74)
[2018-10-17 11:08] LABS: Microalbumin,Random Urine 10.9 mg/L (NO RANGE EST.); Microalbumin:Creatinine Ratio 11.9 mg/g CRE (<30 mg/g CRE)
[2018-10-19 04:06] LABS: CHOLESTEROL TOTAL 136 mg/dL (100-199); HDL-C 48 mg/dL (>39); SMALL LDL-P 489 nmol/L (<=527); TRIGLYCERIDES 120 mg/dL (0-149)
[2018-10-20 09:45] LABS: LDL SIZE 20.1 nm (>20.5); LDL-C 64 mg/dL (0-99); LDL-P 875 nmol/L (<1000); LP-IR SCORE ** 43 (<=45)
== END ==
PROVIDERS: Family Provider Internal Medicine; PCP Internal Medicine; Referring Provider Internal Medicine; Visit Provider Internal Medicine
DX: E11.9 Type 2 diabetes mellitus without complications (principal)
CPT/HCPCS: 36415; 80053; 80061; 81001; 82043; 82570; 83704; 84443; 85025

== ENCOUNTER 2018-11-06 19:45 | Emergency (ER) | payer MEDICARE, SELFPAY ==
[2018-11-06 19:46] VITALS: BP 165/86; PULSE 94; RESP 16; TEMP 36.7; O2SAT 98; BMI 27.2
--- NOTE | 2018-11-06 19:57 | EKG12_ITS ---
Test Reason : CP Blood Pressure : / mmHG Vent. Rate : 088 BPM Atrial Rate : 088 BPM P-R Int : 160 ms QRS Dur : 084 ms QT Int : 344 ms P-R-T Axes : 089 078 073 degrees QTc Int : 416 ms Normal sinus rhythm Normal ECG Confirmed by MATILDE ALSTON, WILFRID ([id number]), city editor DANNA LIZAMA ([id number]) on 11/11/2018 8:40:40 AM Referred By: Confirmed By:WILFRID CLAYTON MD
--- NOTE | 2018-11-06 20:00 | ED.DCSUM_ITS ---
- ER Visit Summary Date of Service: 11/06/18 Chief Complaint: Chest pain History of Present Illness: The patient is a 63 M comes by taxi from custodial for evaluation of chest pain starting 45 minutes prior to arrival. Started substernal with the left side. No dyspnea, nausea, diaphoresis. No pain in the arms or neck. Symptoms currently resolved. Similar symptoms reported last time he was here. No history of heart attacks. Reports no history of stress test or heart cath. Reports takes aspirin 325 mg every day in the morning he took it this morning. Pain was more severe earlier 8-9 out of 10. Currently no pain. History of hypertension, diabetes, tobacco. No PE risk factors. Physical Examination: General: Alert and oriented ?3, no acute distress HEENT: Normocephalic, atraumatic. Moist mucosa membranes Neck: supple, nontender. Cardiovascular: Regular rate and rhythm, no murmurs. Chest nontender to palpation. Respiratory: Normal breath sounds, symmetric, no distress Abdomen: Soft, nontender, nondistended Extremities: Nontender, no edema, pulses intact ?4 Neuro: no focal neurological deficits. Test Results: EKG: Sinus rate of [address] or T wave. Artifacts noted. Hemoglobin 12 creatinine 1.05 troponin negative chest x-ray negative Emergency Department Course and Treatment: Patient symptom-free on my evaluation. Cardiac workup was negative. GWENDOLYN score 2, heart scores of 3. He took his aspirin full dose at home this morning. Reevaluation and symptom-free. Heart pathway guideline discussed with patient. He understands a 2% risk did want to wait for 3-hour draw. Discussed with patient he should follow-up with PCP for an outpatient stress test signs and symptoms discussed to return. Smoking cessation discussed. All questions were answered. Treatment Plan: [] Disposition: Discharge Impression: 1. Acute chest pain This note was generated with Owtwareation software. It may contain incorrect words, spelling, and punctuation that were not noted in review of the chart prior to signing ED Disposition - Plan for ED Patient: Disposition: Home or Assisted Living Diagnosis: Acute chest pain Instructions: ED Chest Pain Atypical Unkn Cause Referrals: Dhara Taylor DO [Primary Care Provider] - 3-5 Days
--- NOTE | 2018-11-06 20:00 | RAD_ITS ---
STUDY: X-RAY CHEST REASON FOR EXAM: Male, 63 years old. Chest pain. TECHNIQUE: Single AP portable view of the chest. COMPARISON: September 05, 2018. FINDINGS: Telemetry wires overlie the chest. The lungs are clear and expanded. There is no demonstrated pleural abnormality. Normal size heart. Normal mediastinum and jose. Normal visualized pulmonary arteries. Normal visualized aortic arch and descending thoracic aorta. There are diffuse degenerative changes of the visualized thoracic spine. There is degenerative osteoarthritis of the bilateral shoulders. There is no demonstrated abnormality of the visualized soft tissue structures of the upper abdomen. RAD/Chest 1 View (Portable) IMPRESSION: No acute cardiopulmonary disease or major interval change. Electronically Signed: Jackson Conde DO at 20:31 EST Tel [phone], Service support ,
[2018-11-06 20:05] VITALS: O2SAT 97
[2018-11-06 20:10] LABS: Absolute Lymphocyte Count 1.94 X10^3/ul (0.83-4.51); Absolute Neutrophil Count 3.6 X10^3/uL (2.0-7.7); Basophil# 0.03 X10^3/uL; Basophil% 0.5 % (0-1); Eosinophil# 0.23 X10^3/uL; Eosinophils% 3.6 % (0-5); Hematocrit 35.6 % (40-54); Hemoglobin 12.1 g/dl (13.0-16.5); Lymphocyte # 1.94 X10^3/ul (4.0); Lymphocyte % 30.6 % (19-41); Mean Corpuscular Hgb 29.7 pg (27.0-32.0); Mean Corpuscular Volume 87.5 fL (80-94); Mean Platelet Vol. 9.7 fl (6.2-12.0); Monocyte# 0.52 X10^3/uL; Monocyte% 8.2 % (0-10); Neutrophil # 3.59 X10^3/uL (2.7-7.7); Neutrophil % 56.6 % (47-70); Platelet Count 190 K/mm3 (150-450); RBC Distribution Width SD 41.7 fl (35.1-43.9); Red Blood Count 4.07 M/mm3 (4.6-6.2); White Blood Count 6.3 K/mm3 (4.4-11.0)
[2018-11-06 20:12] LABS: POSITIVE COUNT NO; POSITIVE DIFFERENTIAL NO; POSITIVE MORPHOLOGY NO
[2018-11-06 20:37] LABS: Anion Gap 9 (5-15); BUN 16 mg/dL (7-18); BUN/Creat Ratio 15.2 RATIO (10-20); Calcium,Total 8.6 mg/dL (8.5-10.1); Chloride 97 mmol/L (98-107); Creatinine, Serum 1.05 mg/dL (0.70-1.30); EST Glomerular Filtration Rate 76 mL/min (>60); Est Glom Filt Rate - Afr Amer 92 mL/min (>60); Estimated Creatinine Clearance 75.32 ml/min; Glucose 137 mg/dL (74-106); Sodium Level 133 mmol/L (136-145)
[2018-11-06 21:33] VITALS: BP 138/80; PULSE 87; RESP 16
== END 2018-11-06 21:34 | disposition home or self-care (01) ==
PROVIDERS: Emergency Provider Emergency Medicine; Family Provider Internal Medicine; PCP Internal Medicine
DX: R07.9 Chest pain, unspecified (principal); Z86.73 Personal history of transient ischemic attack (TIA), and cerebral infarction without residual deficits; Z72.0 Tobacco use
CPT/HCPCS: 71045; 80048; 84484; 85025; 93005; 99285; A4216

== ENCOUNTER → 2018-11-18 07:53 | Outpatient (CLI) | payer MEDICARE, SELFPAY ==
[2018-11-06 19:46] VITALS: BMI 27.2
--- NOTE | 2018-11-18 08:05 | ECHOD_ITS ---
Reason For Study: CHEST PAIN Procedure This was a 2D Doppler, Color Flow transthoracic echocardiogram. Exam performed in department. Left Ventricle Normal LV size. Left ventricular systolic function is normal. The estimated ejection fraction is 60 %. Stage 1 diastolic dysfunction. No regional wall motion abnormalities noted. Right Ventricle Normal RV size. Normal systolic function. Atria Normal left atrium. Normal right atrium. Mitral Valve Normal mitral valve. Mild (1+) eccentric mitral valve insufficiency. Tricuspid Valve Normal tricuspid valve. Mild (1+) tricuspid valve insufficiency. Pulmonary artery systolic pressure is 25 mmHg. Aortic Valve Trisinus/trileaflet aortic valve. Mild focal aortic valve calcification. Pulmonic Valve Normal pulmonic valve. Great Vessels Normal aortic root. The pulmonary artery is normal size. Normal inferior vena cava. Pericardium/Pleural No pericardial effusion. Medication Previously negative bubble study. MMode/2D Measurements & Calculations LVIDd: 3.9 cm IVSd: 1.2 cm Ao root diam: 3.4 cm LVIDs: 2.6 cm LVPWd: 1.2 cm RVDd: 3.3 cm FS: 32.0 % LAV(MOD-bp): 55.5 ml EDV(MOD-sp4): 90.1 ml SV(MOD-sp4): 52.8 ml LAV(MOD-bp) Indexed: 26.9 ml/m2 ESV(MOD-sp4): 37.4 ml LAV(MOD-sp2): 64.6 ml EF(MOD-sp4): 58.6 % LAV(MOD-sp4): 45.6 ml LA dimension(2D): 3.4 cm LA A4 area: 17.6 cm2 RA A4 area: 17.9 cm2 Time Measurements MV dec time: 0.25 sec Doppler Measurements & Calculations MV E max harjinder: 76.7 cm/sec Lat Peak E' Harjinder: 9.5 cm/sec Med Peak E' Harjinder: 6.2 cm/sec MV A max harjinder: 94.8 cm/sec E/E' lat: 8.1 E/E' med: 12.4 MV E/A: 0.81 Ao V2 max: 121.4 cm/sec LV V1 max: 118.6 cm/sec TR max harjinder: 228.1 cm/sec Ao max P.9 mmHg LV V1 max P.6 mmHg TR max P.8 mmHg Interpretation Summary Normal LV size. Left ventricular systolic function is normal. The estimated ejection fraction is 60 %. Stage 1 diastolic dysfunction. Mild (1+) tricuspid valve insufficiency. Ordering Physician: Dhara Taylor Referring Physician: Dhara Taylor Performed By: Ivy Vega, URBANOCS, RVT
== END ==
PROVIDERS: Family Provider Internal Medicine; PCP Internal Medicine; Referring Provider Internal Medicine; Visit Provider Internal Medicine
DX: R07.89 Other chest pain (principal)
CPT/HCPCS: 93306

== ENCOUNTER → 2018-12-17 16:00 | Outpatient (CLI) | payer MEDICARE, SELFPAY ==
--- NOTE | 2018-12-17 16:05 | RAD_ITS ---
STUDY: X-RAY - CERVICAL SPINE REASON FOR EXAM: Male, 63 years old. Neck pain. TECHNIQUE: 5 view(s) of the cervical spine were obtained. COMPARISON: None FINDINGS: Normal anterior atlantoaxial articulation. Normal odontoid process. Normal cervical lordosis. There is mild multi-level endplate spondylosis. There is mild multi-level degenerative disc disease with multilevel disc space narrowing. There is multi-level osseous foraminal stenosis. There are atherosclerotic vascular calcifications of the carotid arteries. There is no demonstrated fracture of the cervical spine. RAD/Cerv Spine 4 or 5 Views IMPRESSION: Relatively mild degenerative changes. No acute abnormality. Electronically Signed: Zack Gil MD at 0:00 EDT , Service support ,
== END ==
PROVIDERS: Family Provider Internal Medicine; PCP Internal Medicine; Referring Provider Nurse Practitioner; Visit Provider Nurse Practitioner
DX: M54.2 Cervicalgia (principal)
CPT/HCPCS: 72050

== ENCOUNTER → 2019-02-27 | Outpatient (CLI) | payer MEDICARE, SELFPAY ==
[2019-02-27 15:20] LABS: Hematocrit 35.8 % (40-54); Hemoglobin 12.3 g/dl (13.0-16.5); Mean Corp Hgb Conc 34.4 g/gl (32-36); Mean Corpuscular Hgb 28.9 pg (27.0-32.0); Mean Corpuscular Volume 84.2 fL (80-94); Mean Platelet Vol. 10.2 fl (6.2-12.0); Platelet Count 206 K/mm3 (150-450); RBC Distribution Width CV 12.8 % (11.6-14.6); RBC Distribution Width SD 39.1 fl (35.1-43.9); Red Blood Count 4.25 M/mm3 (4.6-6.2); White Blood Count 6.3 K/mm3 (4.4-11.0)
[2019-02-27 15:27] LABS: Scan Indicated on CBC? Y/N NO
[2019-02-27 15:37] LABS: AST(SGOT) 21 U/L (15-37); Alanine Aminotransfer ALT/SGPT 14 U/L (16-61)
[2019-02-27 15:57] LABS: Valproic Acid (Depakene) Level 55 ug/mL (50-100)
== END | disposition home or self-care (01) ==
LOC: LAB 14:53
PROVIDERS: Family Provider Internal Medicine; PCP Internal Medicine; Referring Provider Psychiatry & Neurology Psychiatry; Visit Provider Psychiatry & Neurology Psychiatry
DX: Z79.899 Other long term (current) drug therapy (principal)
CPT/HCPCS: 36415; 80164; 82140; 84450; 84460; 85027

== ENCOUNTER 2019-03-03 14:46 | Emergency (ER) | payer MEDICARE, SELFPAY ==
[2019-03-03 14:48] VITALS: BP 153/80; PULSE 91; RESP 18; TEMP 36.8; O2SAT 98; BMI 29.8
--- NOTE | 2019-03-03 16:35 | ED.VISSUMM ---
- ER Visit Summary Date of Service: 03/03/19 Chief Complaint: Right lower leg laceration History of Present Illness: The patient is a 63 M was getting out of an SUV when he caught his leg on the running board he believes causing a laceration to his right lower leg. This occurred around 2 PM. He denies any other injuries. He is on no blood thinners. Unsure of his last tetanus shot. That will be updated. Physical Examination: Well-appearing older male. Vital signs are stable afebrile. H EENT exam unremarkable. Lungs clear to auscultation. Heart regular rhythm no murmur. Abdomen soft nontender. Extremities moving all 4. Neurovascular intact. His laceration right lower leg that is bandaged. Neurologically is awake alert with no focal motor deficits. Test Results: None Emergency Department Course and Treatment: Tetanus updated. Local anesthetic with lidocaine. Wound explored, washed and irrigated. Bilateral closed using # 4 4-0 Ethilon simple interrupted suture. Patient tolerated procedure well. Good wound closure and hemostasis obtained. Instructed on wound care. Treatment Plan: Wound care. Suture removal in 10 days. Watch for any signs of infection. Return if any issues. Disposition: Discharge Impression: Right lower leg laceration with ER repair Tetanus is updated This note was generated with [employer] dictation software. It may contain incorrect words, spelling, and punctuation that were not noted in review of the chart prior to signing ED Disposition - Plan for ED Patient: Referrals: Dhara Taylor DO [Primary Care Provider] -
[2019-03-03] MEDS: Diphth,Pertuss(Acell),Tet Vac 0.5 ML Vial IM (16:52)
--- NOTE | 2019-03-03 19:00 | ED.RN ---
DR MAXWELL TO COME BACK AND SEW PT
--- NOTE | 2019-03-03 19:41 | ED.DEP ---
ED Disposition - Plan for ED Patient: Disposition: Home or Assisted Living Instructions: ED Laceration Ext Sutr Stap Tape Referrals: Dhara Taylor DO [Primary Care Provider] - 10 Day for suture removal Additional Instructions: Clean wound daily. Keep dry. Apply antibiotic ointment daily. Suture removal in 10 days. Return if fever, redness or pus.
[2019-03-03 19:45] VITALS: BP 148/74; PULSE 81; RESP 16; O2SAT 97
== END 2019-03-03 19:47 | disposition home or self-care (01) ==
PROVIDERS: Emergency Provider Emergency Medicine; Family Provider Internal Medicine; PCP Internal Medicine
DX: S81.811A Laceration without foreign body, right lower leg, initial encounter (principal); Z23 Encounter for immunization; K21.9 Gastro-esophageal reflux disease without esophagitis; E11.9 Type 2 diabetes mellitus without complications; Z72.0 Tobacco use; Z79.84 Long term (current) use of oral hypoglycemic drugs; W26.8XXA Contact with other sharp object(s), not elsewhere classified, initial encounter; Y93.89 Activity, other specified; Y92.89 Other specified places as the place of occurrence of the external cause; Y99.8 Other external cause status
CPT/HCPCS: 12002; 90471; 90715; 99283

== ENCOUNTER 2019-03-31 21:05 | Emergency (ER) | payer MEDICARE, SELFPAY ==
[2019-03-31 21:06] VITALS: BP 160/85; PULSE 103; RESP 16; TEMP 36.7; O2SAT 96; BMI 29.5
--- NOTE | 2019-03-31 21:24 | ED.VIS.GEN ---
History of Present Illness Chief Complaint: Cough Informant: Patient Onset: Month(s) Narrative: Patient presents for evaluation of cough with slight blood today. States been coughing for years. Tobacco history. History of schizophrenia. He states he has been at [facility] for the past 5 months. Denies suicidal or homicidal ideations. No chest pains or shortness of breath. No fevers. Prior similar symptoms: No Past Medical History - Allergies and Home Meds Allergies/Adverse Reactions: Allergies sulfamethoxazole Allergy (Mild, Verified 03/31/19 21:09) Unknown trimethoprim Allergy (Mild, Verified 03/31/19 21:09) Unknown Penicillins [PCN] Allergy (Verified 03/31/19 21:09) Unknown Primary Care Physician: Dhara Taylor DO [Primary Care Provider] - Surgical History: tonsillectomy, - - Debridement of left foot ulcer and anterior borja ulcer. Smoking Status: Current every day smoker - Family History Maternal Family History: Reports: Heart Disease Paternal Family History: Reports: Diabetes Sibling Family History: Reports: Hypertension Review of Systems General: Denies: Chills, Fever, Sweats Eyes: Denies: Visual changes - bilaterally, Diplopia ENT: Denies: Rhinorrhea, Sore throat Cardiovascular: Denies: Chest pain, Palpitations Respiratory: Reports: Cough. Denies: Dyspnea, Dyspnea on exertion Gastrointestinal: Denies: Abdominal pain, Nausea, Vomiting, Diarrhea, Melena, Hematochezia Genitourinary: Denies: Dysuria, Hematuria, Frequency Musculoskeletal: Denies: Back pain, Extremity Pain Skin: Denies: Rash, Wounds Neurological: Denies: Headache, Weakness, Numbness Physical Exam Vital Signs/Narrative: Vital Signs Temp Pulse Resp BP Pulse Ox 03/31/19 21:06 98.1 F 103 H 16 160/85 H 96 Inital Vital Signs reviewed: Yes General: Well nourished, Well developed, No Acute Distress, - - tangentality Head: Normocephalic, Atraumatic Eyes: Perrl, EOMI ENT: Moist mucous membranes, No rhinorrhea, - - No blood in oral pharynx. Neck: Supple, Nontender Cardiovascular: Regular rate, Regular rhythm, No murmurs Respiratory: No distress, CTA bilaterally, Chest nontender Abdomen: Soft, Nontender, Nondistended, Normal bowel sounds Back: Nontender, Normal Inspection Extremities: Nontender, No edema Skin: Normal color, No rash Neurological: Alert, Oriented x3, Cranial nerves II-XII grossly intact, Normal Strength, Normal Sensation Psychological: - - No suicidal or homicidal ideation. Diagnostic/Tx/Re-eval Chest X-Ray - ED: 2 View, Read by ED Physician, Read by Radiologist, No Acute Disease - Medical Decision Making Patient reported hemoptysis. No cough during exam. Vital signs stable. Chest x-ray obtained negative. Discussed tobacco cessation. History of schizophrenia however no suicidal homicidal ideations. He will follow-up as an outpatient. Signs and symptoms discussed return. All questions were answered. ED Disposition - Plan for ED Patient: Disposition: Home or Assisted Living Diagnosis: URI, acute, Hemoptysis Instructions: Hemoptysis Referrals: Dhara Taylor DO [Primary Care Provider] - 3-5 Days
--- NOTE | 2019-03-31 21:30 | RAD_ITS ---
STUDY: X-RAY CHEST REASON FOR EXAM: Male, 63 years old. Cough with blood in sputum. TECHNIQUE: PA and lateral views of the chest. COMPARISON: November 06, 2018 FINDINGS: There is no new focal consolidation. Normal size heart. Normal mediastinum and jose. Normal visualized pulmonary arteries. Normal visualized aortic arch and descending thoracic aorta. There are diffuse degenerative changes of the visualized thoracic spine. There are old right posterior rib fracture. There is no demonstrated abnormality of the visualized soft tissue structures of the upper abdomen. RAD/Chest PA and Lateral IMPRESSION: No acute cardiopulmonary process. Electronically Signed: Akiko Peralta MD at 22:09 EDT Tel , Service support ,
[2019-03-31 22:47] VITALS: BP 157/84; PULSE 91; RESP 22; O2SAT 97
--- NOTE | 2019-03-31 22:52 | ED.RN ---
THIS NURSE REVIEWED D/C INSTRUCTIONS WITH PT. PT VERBALIZED UNDERSTANDING OF INSTRUCTIONS. PT DENIES FURTHER NEEDS OR QUESTIONS AT THIS TIME. PT AMBULATES FROM ROOM ON OWN WITHOUT ASSISTANCE FROM STAFF
== END 2019-03-31 22:53 | disposition home or self-care (01) ==
PROVIDERS: Emergency Provider Emergency Medicine; Family Provider Internal Medicine; PCP Internal Medicine
DX: J06.9 Acute upper respiratory infection, unspecified (principal); R04.2 Hemoptysis; F17.200 Nicotine dependence, unspecified, uncomplicated; F20.9 Schizophrenia, unspecified; Z79.899 Other long term (current) drug therapy
CPT/HCPCS: 71046; 99282

== ENCOUNTER 2019-04-23 20:22 | Emergency (ER) | payer MEDICARE, SELFPAY ==
[2019-04-23 20:23] VITALS: BP 145/81; PULSE 94; RESP 16; TEMP 36.8; O2SAT 95; BMI 29.8
--- NOTE | 2019-04-23 21:37 | ED.DCSUM_ITS ---
- ER Visit Summary Date of Service: 04/23/19 Chief Complaint: Dental pain History of Present Illness: The patient is a 63 M who presents with dental pain that has been getting worse over the past week. Patient states he had his left lower molar extracted 1 week ago. Patient states the pain has been getting progressively worse. Patient states he is on an antibiotic but he does not remember the name of the antibiotic. Patient describes the pain is aching and cramping. Patient states the pain waxes and wanes. Patient admits to some cold sensitivity but denies any fevers or chills. Patient denies any swelling. Physical Examination: Vital signs are stable. Patient is afebrile. Patient is in no acute distress. Oral mucosa is pink and moist. There is some gingival edema over the left lower molar extraction site. There is some mild erythema. There is no fluctuance. There is no discharge or drainage. There is no evidence of a dry socket. Neck is supple. Trachea is midline. There is no JVD noted. Heart was regular rate and rhythm. Lungs are clear and equal reno aterally. Emergency Department Course and Treatment: Patient states that Augmentin has worked well for him in the past with other infections. However, the patient has an allergy to penicillins, his reaction is unknown. Patient was instructed to stop his antibiotic. Patient was given a prescription for clindamycin. Patient was instructed to follow-up with his dentist as scheduled. Patient understood and was agreeable with the plan. All questions were answered. Disposition: Discharge home Impression: Odontalgia This note was generated with [employer] dictation software. It may contain incorrect words, spelling, and punctuation that were not noted in review of the chart prior to signing ED Disposition - Plan for ED Patient: Disposition: Home or Assisted Living Diagnosis: Dentalgia Instructions: Dental Pain Prescriptions: Clindamycin HCl [Cleocin] 300 mg PO Q6H #28 cap Prescription Printed Referrals: Dhara Taylor DO [Primary Care Provider] - 5-7 Days
[2019-04-23 21:53] VITALS: RESP 16
== END 2019-04-23 21:54 | disposition home or self-care (01) ==
PROVIDERS: Emergency Provider Emergency Medicine; Family Provider Internal Medicine; PCP Internal Medicine
DX: K08.89 Other specified disorders of teeth and supporting structures (principal); I25.10 Atherosclerotic heart disease of native coronary artery without angina pectoris; I50.9 Heart failure, unspecified; K21.9 Gastro-esophageal reflux disease without esophagitis; E11.9 Type 2 diabetes mellitus without complications; Z72.0 Tobacco use
CPT/HCPCS: 99282

== ENCOUNTER 2019-05-02 19:58 | Emergency (ER) | payer MEDICARE, SELFPAY ==
[2019-05-02 19:59] VITALS: BP 160/104; PULSE 110; RESP 15; TEMP 36.7; BMI 30.8
--- NOTE | 2019-05-02 20:34 | RAD_ITS ---
HISTORY: PT C/O HEMOPTYSIS EXAMINATION/TECHNIQUE: XR Chest 2 Views: COMPARISON: 04/30/19 CXR FINDINGS: LINES/DEVICES: None. LUNGS: No consolidation, edema or effusion. No pneumothorax. Emphysematous changes are noted. MEDIASTINUM AND CARDIOVASCULAR STRUCTURES: Cardiac silhouette not enlarged. Central airways and mediastinal contour are unremarkable. BONES AND SOFT TISSUES: Degenerative changes thoracic spine. RAD/Chest PA and Lateral IMPRESSION: COPD. No radiographic evidence of acute cardiopulmonary disease. at 2120 Reported and signed by: Timbo Hassan MD Electronically Signed: Timbo Hassan, at 21:19 EDT Tel , Service support ,
[2019-05-02 20:57] LABS: Absolute Neutrophil Count 5.3 X10^3/uL (2.0-7.7); Basophil# 0.07 X10^3/uL; Basophil% 0.9 % (0-1); Eosinophil# 0.17 X10^3/uL; Eosinophils% 2.2 % (0-5); Hematocrit 36.3 % (40-54); Hemoglobin 12.2 g/dL (13.0-16.5); Lymphocyte % 19.2 % (19-41); Mean Corp Hgb Conc 33.6 g/dL (32-36); Mean Corpuscular Hgb 29.2 pg (27.0-32.0); Mean Corpuscular Volume 86.8 fL (80-94); Monocyte# 0.74 X10^3/uL; Monocyte% 9.5 % (0-10); NRBC Flagged by Analyzer 0 % (0-5); Neutrophil # 5.28 X10^3/uL (2.7-7.7); Neutrophil % 67.3 % (47-70); Platelet Count 198 K/mm3 (150-450); RBC Distribution Width CV 12.7 % (11.6-14.6); Red Blood Count 4.18 M/mm3 (4.6-6.2); White Blood Count 7.8 K/mm3 (4.4-11.0)
[2019-05-02 21:04] LABS: International Normalized Ratio 1.1; Prothrombin Time (Protime)PT. 13.7 SECONDS (11.7-14.9)
[2019-05-02 21:05] LABS: Partial Thromboplast Time 30.9 Seconds (24.1-36.2)
[2019-05-02 21:21] LABS: Anion Gap 7 (5-15); BUN 23 mg/dL (7-18); BUN/Creat Ratio 19.5 RATIO (10-20); Calcium,Total 8.9 mg/dL (8.5-10.1); Chloride 97 mmol/L (98-107); Creatinine, Serum 1.18 mg/dL (0.70-1.30); EST Glomerular Filtration Rate 66 mL/min (>60); Est Glom Filt Rate - Afr Amer 80 mL/min (>60); Estimated Creatinine Clearance 67.02 ml/min; Glucose 113 mg/dL (74-106); Potassium 4.2 mmol/L (3.5-5.1); Sodium Level 132 mmol/L (136-145)
--- NOTE | 2019-05-02 21:29 | ED.DCSUM_ITS ---
- ER Visit Summary Date of Service: 05/02/19 Chief Complaint: Coughing up blood History of Present Illness: The patient is a [address] Taylor. He reports that he has had a cough for approximately 1 week. Reports that he is coughing up minimal sputum. He had an episode 1 week ago his sputum was st reaked with blood. Today the sputum was streaked with blood. He reports that the sputum is white. He reports he has mild shortness of breath. He denies any fever or chills. No chest pain. Physical Examination: Vitals: Stable. Afebrile. General: Well-nourished and well-developed. Head: Normocephalic atraumatic. HEENT: No obvious source of bleeding in the nose, mouth, oropharynx. Neck: Supple, no lymphadenopathy. No JVD. Nontender. Cardiovascular: Regular rate and rhythm. No murmurs. Respiratory: No respiratory distress. Clear to auscultation bilaterally. Abdominal: Soft, nontender, nondistended, normal bowel sounds. No guarding, rebound, or peritoneal signs. Back: Nontender. Extremities: Nontender, no edema. Skin: Normal color, no rash. Neurologic: Alert and oriented ?3. Cranial nerves II through XII are intact. Normal strength and sensation. Psych: Normal affect. Test Results: CBC shows an H&H of 12.2 and 36.3. Chem-7 shows a sodium 132, chloride 97, glucose 113, BUN 23. Coags are normal. Chest x-ray shows chronic changes. Emergency Department Course and Treatment: Patient coughed up sputum here that did not have any blood. He does not want to be placed on antibiotics. Treatment Plan: Patient will be discharged instructions follow-up Dr. Taylor in 3 to 5 days for another exam. Return to the emergency department for any worsening symptoms. Disposition: To home in improved and stable condition. Impression: 1. Minor hemoptysis. 2. COPD. This note was generated with [employer] software. It may contain incorrect words, spelling, and punctuation that were not noted in review of the chart prior to signing ED Disposition - Plan for ED Patient: Disposition: Home or Assisted Living Instructions: Hemoptysis Referrals: Dhara Taylor DO [Primary Care Provider] - 5-7 Days
[2019-05-02 21:42] VITALS: BP 147/86; PULSE 102; RESP 15; O2SAT 95
== END 2019-05-02 21:43 | disposition home or self-care (01) ==
LOC: ED 20:36
PROVIDERS: Emergency Provider Emergency Medicine; Family Provider Internal Medicine; PCP Internal Medicine
DX: R04.2 Hemoptysis (principal); J44.9 Chronic obstructive pulmonary disease, unspecified; K21.9 Gastro-esophageal reflux disease without esophagitis; E11.9 Type 2 diabetes mellitus without complications; I10 Essential (primary) hypertension; F17.210 Nicotine dependence, cigarettes, uncomplicated
CPT/HCPCS: 71046; 80048; 85025; 85610; 85730; 99285; A4216

== ENCOUNTER 2019-06-28 12:34 | Emergency (ER) | payer MEDICARE, SELFPAY ==
[2019-06-28 12:35] VITALS: BP 162/90; PULSE 110; RESP 16; TEMP 37.1; O2SAT 96; BMI 30.1
[2019-06-28 13:18] LABS: Absolute Lymphocyte Count 1.18 X10^3/uL (0.83-4.51); Absolute Neutrophil Count 4.4 X10^3/uL (2.0-7.7); Basophil# 0.05 X10^3/uL; Basophil% 0.8 % (0-1); Eosinophil# 0.14 X10^3/uL; Eosinophils% 2.2 % (0-5); Hematocrit 36.7 % (40-54); Hemoglobin 12.4 g/dL (13.0-16.5); Lymphocyte # 1.18 X10^3/ul (4.0); Lymphocyte % 18.4 % (19-41); Mean Corp Hgb Conc 33.8 g/dL (32-36); Mean Corpuscular Hgb 29.7 pg (27.0-32.0); Mean Corpuscular Volume 87.8 fL (80-94); Mean Platelet Vol. 9.9 fl (6.2-12.0); Monocyte# 0.61 X10^3/uL; Monocyte% 9.5 % (0-10); NRBC Flagged by Analyzer 0 % (0-5); Neutrophil # 4.38 X10^3/uL (2.7-7.7); Neutrophil % 68.3 % (47-70); Platelet Count 216 K/mm3 (150-450); RBC Distribution Width SD 41.6 fl (35.1-43.9); Red Blood Count 4.18 M/mm3 (4.6-6.2); White Blood Count 6.4 K/mm3 (4.4-11.0)
[2019-06-28 13:30] LABS: Anion Gap 5 (5-15); BUN 19 mg/dL (7-18); Calcium,Total 8.6 mg/dL (8.5-10.1); Chloride 97 mmol/L (98-107); Creatinine, Serum 1.19 mg/dL (0.70-1.30); EST Glomerular Filtration Rate 66 mL/min (>60); Est Glom Filt Rate - Afr Amer 80 mL/min (>60); Estimated Creatinine Clearance 66.46 ml/min; Glucose 171 mg/dL (74-106); Potassium 4.1 mmol/L (3.5-5.1); Sodium Level 131 mmol/L (136-145)
[2019-06-28 13:50] LABS: Valproic Acid (Depakene) Level 65 ug/mL (50-100)
[2019-06-28 13:53] LABS: Amphetamine Urine VISTA NEGATIVE (<1000 ng/mL); Barbiturate Urine VISTA NEGATIVE (< 200 ng/mL); Benzodiazepine Urine VISTA NEGATIVE (< 200 ng/mL); Cocaine Urine VISTA NEGATIVE (< 300 ng/mL); Ecstacy Urine VISTA POSITIVE (< 500 ng/mL); Methadone Urine VISTA NEGATIVE (< 300 ng/mL); PCP Urine VISTA NEGATIVE (< 25 ng/mL); THC Urine VISTA NEGATIVE (< 50 ng/mL); Vista UDS pH Range 7
[2019-06-28 14:35] VITALS: RESP 16
[2019-06-28 16:00] VITALS: PULSE 74; RESP 18; O2SAT 99
--- NOTE | 2019-06-28 16:08 | ED.VISSUMM ---
- ER Visit Summary Date of Service: 06/28/19 Chief Complaint: [Concerned for strep infection and generalized weakness] History of Present Illness: The patient is a 63 M [presents to the emergency department not feeling well today. Patient states that last time he felt weak like he does today he was diagnosed with a infection in his bloodstream. Patient's not had any fevers. Patient is a resident in a penit[facility]iary and has history of bipolar and schizophrenia. Patient has history of diabetes as well as COPD and CHF. Also believes that may be his psychiatrist gave him the wrong medication when he got his injection a week ago. She believes he psych it. She denies feeling suicidal or homicidal.] Physical Examination: [HEENT-PERRLA, EOMI. Cranial nerves II through XII grossly intact. TMs clear. Mucous membranes moist. No adenopathy. Cardiovascular-regular rate and rhythm without murmur or ectopy Lungs-clear to auscultation, chest wall stable without crepitus or subcu emphysema Abdomen-normoactive bowel sounds, soft, nontender, no rebound or rigidity, no peritoneal signs. Extremities-intact ?4, normal range of motion, normal pulses, atraumatic] Test Results: [CBC with differential was normal. Chemistries unremarkable. Toxicology was positive for methamphetamines. Alcohol was 6.] Emergency Department Course and Treatment: [Patient was evaluated by painting and coating worker who knows the patient and also discussed case with his POA who states that this is the patient's baseline. They are comfortable releasing him back to the penitentiary.] Treatment Plan: [Released back to penitentiary.] Disposition: [Discharged in stable condition] Impression: Schizophrenia/paranoia Bipolar disorder [] This note was generated with [employer] dictation software. It may contain incorrect words, spelling, and punctuation that were not noted in review of the chart prior to signing ED Disposition - Plan for ED Patient: Referrals: Dhara Taylor DO [Primary Care Provider] -
--- NOTE | 2019-06-28 16:13 | ED.DEP ---
ED Disposition - Plan for ED Patient: Instructions: SCHIZOPHRENIA, Paranoid Type Referrals: Dhara Taylor DO [Primary Care Provider] - 3-5 Days
[2019-06-28 16:20] VITALS: BP 151/95; PULSE 87; RESP 16; O2SAT 98
--- NOTE | 2019-06-28 16:21 | ED.RN ---
DISCHARGE INSTRUCTIONS GIVEN TO AND REVIEWED WITH PATIENT, PATIENT DENIES QUESTIONS OR CONCERNS AND VOICES UNDERSTANDING OF DISCHARGE INSTRUCTIONS. BELONGINGS RETURNED TO PATIENT, HE AMBULATES OUT OF ROOM WITHOUT DIFFICULTY.
== END 2019-06-28 16:22 | disposition home or self-care (01) ==
LOC: ED 13:08
PROVIDERS: Emergency Provider Emergency Medicine; Family Provider Internal Medicine; PCP Internal Medicine
DX: F20.0 Paranoid schizophrenia (principal); F31.9 Bipolar disorder, unspecified; J44.9 Chronic obstructive pulmonary disease, unspecified; I50.9 Heart failure, unspecified; E11.9 Type 2 diabetes mellitus without complications; Z86.73 Personal history of transient ischemic attack (TIA), and cerebral infarction without residual deficits; Z72.0 Tobacco use; Z79.51 Long term (current) use of inhaled steroids; Z79.82 Long term (current) use of aspirin; Z79.84 Long term (current) use of oral hypoglycemic drugs; Z79.899 Other long term (current) drug therapy
CPT/HCPCS: 36415; 80048; 80164; 80307; 80320; 85025; 99285; G0480

== ENCOUNTER → 2019-07-22 | Outpatient (CLI) | payer MEDICARE, SELFPAY ==
[2019-06-28 12:35] VITALS: BMI 30.1
[2019-07-22 09:17] LABS: Platelet Count 197 K/mm3 (150-450)
[2019-07-22 09:41] LABS: AST(SGOT) 21 U/L (15-37); Alanine Aminotransfer ALT/SGPT 15 U/L (16-61)
[2019-07-22 09:57] LABS: Valproic Acid (Depakene) Level 52 ug/mL (50-100)
== END | disposition home or self-care (01) ==
LOC: LAB 08:36
PROVIDERS: Family Provider Internal Medicine; PCP Internal Medicine; Referring Provider Psychiatry & Neurology Psychiatry; Visit Provider Psychiatry & Neurology Psychiatry
DX: Z79.899 Other long term (current) drug therapy (principal)
CPT/HCPCS: 36415; 80164; 82140; 84450; 84460; 85049

== ENCOUNTER → 2019-07-23 | Outpatient (CLI) | payer MEDICARE, SELFPAY ==
[2019-06-28 12:35] VITALS: BMI 30.1
[2019-07-23 08:58] LABS: Absolute Lymphocyte Count 1.34 X10^3/uL (0.83-4.51); Absolute Neutrophil Count 4.3 X10^3/uL (2.0-7.7); Basophil# 0.05 X10^3/uL; Basophil% 0.8 % (0-1); Eosinophil# 0.14 X10^3/uL; Eosinophils% 2.1 % (0-5); Hematocrit 40.6 % (40-54); Hemoglobin 13.4 g/dL (13.0-16.5); Lymphocyte # 1.34 X10^3/ul (4.0); Lymphocyte % 20.6 % (19-41); Mean Corpuscular Hgb 28.8 pg (27.0-32.0); Mean Corpuscular Volume 87.3 fL (80-94); Mean Platelet Vol. 10.7 fl (6.2-12.0); Monocyte# 0.68 X10^3/uL; Monocyte% 10.4 % (0-10); NRBC Flagged by Analyzer 0 % (0-5); Neutrophil # 4.26 X10^3/uL (2.7-7.7); Neutrophil % 65.3 % (47-70); Platelet Count 216 K/mm3 (150-450); RBC Distribution Width CV 12.7 % (11.6-14.6); RBC Distribution Width SD 40.4 fl (35.1-43.9); Red Blood Count 4.65 M/mm3 (4.6-6.2); White Blood Count 6.5 K/mm3 (4.4-11.0)
[2019-07-23 09:32] LABS: ALB/GLOB Ratio 1.3 RATIO (0.9-2.4); AST(SGOT) 22 U/L (15-37); Alanine Aminotransfer ALT/SGPT 17 U/L (16-61); Albumin, Serum 3.8 g/dL (3.2-5.0); Alkaline Phosphatase 99 U/L (45-117); Anion Gap 6 (5-15); BUN 19 mg/dL (7-18); BUN/Creat Ratio 17.1 RATIO (10-20); Calcium,Total 9.3 mg/dL (8.5-10.1); Chloride 97 mmol/L (98-107); Creatinine, Serum 1.11 mg/dL (0.70-1.30); EST Glomerular Filtration Rate 71 mL/min (>60); Est Glom Filt Rate - Afr Amer 86 mL/min (>60); Glucose 127 mg/dL (74-106); Potassium 4.3 mmol/L (3.5-5.1); Protein, Total 6.8 g/dL (6.4-8.2); Sodium Level 134 mmol/L (136-145); Thyroid Stim Hormone (TSH) 3.75 uIU/mL (0.358-3.74)
[2019-07-23 12:58] LABS: Bacteria 0 SEEN /hpf (None Seen); Mucous, Urine 0 SEEN /hpf (<or=2+); Red Blood Cells-Urine 0 SEEN /hpf (0-5); Squamous Epithelial Cells - UA 0 SEEN /hpf (0-5); White Blood Cells 0 SEEN /hpf (0-5)
[2019-07-23 13:20] LABS: Color, Urine Yellow (Yellow); Glucose, Dipstick Normal (Normal); Ketone-Dipstick Negative (Negative); Leukocyte Esterase-Dipstick Negative /ul (Negative); Nitrite-Dipstick Negative (Negative); Occult Blood-Urine Negative /ul (Negative); Protein-Dipstick Negative (Negative); Urine Bilirubin Dipstick Negative (Negative); Urine Clarity Clear (Clear); Urine Urobilinogen Normal (Normal)
[2019-07-23 13:31] LABS: Microalbumin,Random Urine 12.2 mg/L (NO RANGE EST.); Microalbumin:Creatinine Ratio 25.6 mg/g CRE (<30 mg/g CRE)
[2019-07-24 16:07] LABS: CHOLESTEROL TOTAL 137 mg/dL (100-199); HDL-C 46 mg/dL (>39); HDL-P TOTAL 33.4 umol/L (>=30.5); SMALL LDL-P 272 nmol/L (<=527); TRIGLYCERIDES 75 mg/dL (0-149)
[2019-07-24 17:54] LABS: INSULIN RESISTANCE SCORE 47 (<=45); LDL SIZE 20.7 nm (>20.5); LDL-C 76 mg/dL (0-99); LDL-P 839 nmol/L (<1000)
== END | disposition home or self-care (01) ==
LOC: LAB 07:43
PROVIDERS: Family Provider Internal Medicine; PCP Internal Medicine; Referring Provider Internal Medicine; Visit Provider Internal Medicine
DX: E11.9 Type 2 diabetes mellitus without complications (principal); I10 Essential (primary) hypertension
CPT/HCPCS: 36415; 80053; 80061; 81001; 82043; 82570; 83704; 84443; 85025

== ENCOUNTER → 2019-08-24 | Outpatient (CLI) | payer MEDICARE, SELFPAY ==
--- NOTE | 2019-08-24 06:38 | MRI_ITS ---
STUDY: MRI BRAIN WITHOUT CONTRAST REASON FOR EXAM: Male, 63 years old. Unsteady gait, balance disorder, schizophrenia TECHNIQUE: Standardized multiplanar fat and water weighted pulse sequences were obtained. COMPARISON: 05/09/2018 FINDINGS: Normal size of the ventricles and extra-axial spaces for the patient's age. Normal white matter tracts of the supratentorial brain. There is no evidence for recent intracranial ischemia or other cause of cytotoxic edema on diffusion weighted imaging (DWI). Normal T2* images of the brain without demonstrated susceptibility artifact. There is no demonstrated hemosiderin stain. Normal bilateral basal ganglia. Normal thalami. There is no extra-axial fluid accumulation. Normal flow voids within the major intracranial circulation suggesting patency by spin echo criteria. Normal sella turcica, pituitary gland, infundibular stalk, optic chiasm and hypothalamus. Normal tectal plate and pineal gland. Normal midbrain, otoniel and medulla. Normal cerebellum. Normal basal cisterns. There is mild chronic otomastoiditis of the left temporal bone. Normal bilateral internal auditory canals. No demonstrated orbital abnormality, within the constraints of a routine brain study. Mucous retention cyst in the floor the left x-ray sinus consistent with chronic sinusitis. Normal calvarium and skull base. Normal visualized soft tissue structures. Normal visualized upper cervical spine. MRI/Brain without Contrast IMPRESSION: Normal unenhanced MRI of the brain. Electronically Signed: Demond Davison MD at 8:23 EST Tel , Service support ,
== END | disposition home or self-care (01) ==
LOC: MRI 06:32
PROVIDERS: Family Provider Internal Medicine; PCP Internal Medicine; Referring Provider Internal Medicine; Visit Provider Internal Medicine
DX: R26.89 Other abnormalities of gait and mobility (principal)
CPT/HCPCS: 70551

== ENCOUNTER → 2019-09-09 10:38 | Outpatient (CLI) | payer MEDICARE, SELFPAY ==
[2019-09-09 11:52] LABS: Hemoglobin A1c 6.4 % (4.2-6.3)
[2019-09-09 11:58] LABS: Valproic Acid (Depakene) Level 54 ug/mL (50-100)
[2019-09-09 12:10] LABS: ALB/GLOB Ratio 1.2 RATIO (0.9-2.4); AST(SGOT) 24 U/L (15-37); Alanine Aminotransfer ALT/SGPT 20 U/L (16-61); Albumin, Serum 3.8 g/dL (3.2-5.0); Alkaline Phosphatase 96 U/L (45-117); Anion Gap 7 (5-15); BUN 18 mg/dL (7-18); BUN/Creat Ratio 14.3 RATIO (10-20); Bilirubin, Direct 0.15 mg/dL (0.00-0.30); Calcium,Total 9.1 mg/dL (8.5-10.1); Chloride 93 mmol/L (98-107); Cholesterol 138 mg/dL (200); Creatinine, Serum 1.26 mg/dL (0.70-1.30); EST Glomerular Filtration Rate 62 mL/min (>60); Est Glom Filt Rate - Afr Amer 74 mL/min (>60); Globulin 3.1 g/dL (2.2-4.2); Glucose 143 mg/dL (74-106); High Density Lipoprotein 36 mg/dL; Potassium 4.1 mmol/L (3.5-5.1); Protein, Total 6.9 g/dL (6.4-8.2); Sodium Level 131 mmol/L (136-145); Thyroid Stim Hormone (TSH) 4.91 uIU/mL (0.358-3.74); Triglycerides 298 mg/dL; Very Low Density Lipoprotein 60 mg/dL (5-40)
== END ==
PROVIDERS: Family Provider Internal Medicine; PCP Internal Medicine; Referring Provider Psychiatry & Neurology Psychiatry; Visit Provider Psychiatry & Neurology Psychiatry
DX: Z79.899 Other long term (current) drug therapy (principal)
CPT/HCPCS: 36415; 80053; 80061; 80164; 82140; 82248; 83036; 84443

== ENCOUNTER 2019-10-19 11:05 | Emergency (ER) | payer MEDICARE, SELFPAY ==
[2019-10-19 11:06] VITALS: BP 161/91; PULSE 98; RESP 16; TEMP 36.6; O2SAT 98; BMI 32.0
--- NOTE | 2019-10-19 11:39 | ED.DCSUM_ITS ---
History of Present Illness Chief Complaint: Suicidal Context: Gradual Onset Conflict: - - living situation Timing: Continuous Current Severity: Moderate Maximum Severity: Moderate Worsened by: Situational factors Associated Symptoms: Depressed, Change in sleeping, Decreased Interest, Decreased Concentration, Hopelessness, Suicidal Thoughts Specific plan (suicidal thought): Stabbed himself Narrative: Patient presents on his own accord because of feeling suicidal thoughts. When asked if he has a plan, he moves on to other topics, but he told nursing he plans on stabbing himself under the left rib cage. He states he is treated for schizoaffective disorder although schizophrenia is in his past medical history. He states that he lives in a prison where he has been for about a year, and he is much smarter than all of the other people there which makes it difficult for him to relate to them. 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 He denies having any auditory hallucinations but states that ideas frequently pop into his head. He discusses how the [facility] is monitoring people through the TV and the Internet against their will and without their knowledge. He goes on to talk about things that he is aware of with regards to the [facility] from long ago. He states he is not allowed to talk about them. He denies any physical ailments recently. - Past Medical History (1) COPD (chronic obstructive pulmonary disease) Status: Chronic (2) Right-sided heart failure Status: Chronic (3) Schizophrenia Status: Chronic (4) Type II diabetes mellitus Status: Chronic (5) TIA (transient ischemic attack) Status: Resolved Past Medical History - Allergies and Home Meds Allergies/Adverse Reactions: Allergies sulfamethoxazole Allergy (Mild, Verified 10/19/19 11:08) Unknown trimethoprim Allergy (Mild, Verified 10/19/19 11:08) Unknown Penicillins [PCN] Allergy (Verified 10/19/19 11:08) Unknown Primary Care Physician: Dhara Taylor DO [Primary Care Provider] - Surgical History: tonsillectomy, - - Debridement of left foot ulcer and anterior borja ulcer. Smoking Status: Current every day smoker - Family History Maternal Family History: Reports: Heart Disease Paternal Family History: Reports: Diabetes Sibling Family History: Reports: Hypertension Review of Systems General: Denies: Chills, Fever, Sweats Eyes: Denies: Visual changes - bilaterally, Diplopia ENT: Denies: Bilateral ear pain, Rhinorrhea, Sore throat Cardiovascular: Denies: Chest pain, Palpitations Respiratory: Denies: Dyspnea, Cough, Dyspnea on exertion Gastrointestinal: Denies: Abdominal pain, Nausea, Vomiting, Diarrhea, Melena, Hematochezia Genitourinary: Denies: Dysuria, Hematuria, Frequency Musculoskeletal: Denies: Neck pain, Back pain, Extremity Pain Skin: Denies: Rash, Wounds Neurological: Denies: Headache, Weakness, Numbness Psych: Reports: Suicidal thoughts. Denies: Suicidal ideations Physical Exam Vital Signs/Narrative: Vital Signs Temp Pulse Resp BP Pulse Ox 10/19/19 11:06 98 F 98 16 161/91 H 98 Inital Vital Signs reviewed: Yes General: Well nourished, Well developed, - - NAD. conversive. Head: Normocephalic, Atraumatic Eyes: Perrl, EOMI ENT: Moist mucous membranes, No rhinorrhea Neck: Supple, Nontender, No lymphadenopathy, - - no thyromegaly Cardiovascular: Regular rate, Regular rhythm, No murmurs Respiratory: No distress, CTA bilaterally, Chest nontender Abdomen: Soft, Nontender, Nondistended, Normal bowel sounds Back: Nontender, Normal Inspection Extremities: Nontender, Edema - 1-2+ bLE, w/ dark stasis changes Skin: Normal color, No rash Neurological: Alert, Oriented x3, Cranial nerves II-XII grossly intact, Normal Strength, Normal Sensation Psych: Normal Speech Pattern, Normal Stable Appropriate Affect, Good Insight, Flight of Ideas, Suicidal thoughts Diagnostic/Tx/Re-eval Laboratory Results 10/19/19 10/19/19 10/19/19 11:45 11:45 11:45 WBC 6.1 RBC 4.05 L Hgb 11.6 L Hct 34.9 L MCV 86.2 MCH 28.6 MCHC 33.2 RDW Std Deviation 41.0 RDW Coeff of Vicente 13.2 Plt Count 220 MPV 10.9 Immature Gran % (Auto) 0.800 Neut % (Auto) 63.1 Lymph % (Auto) 22.5 Elmore % (Auto) 10.2 H Eos % (Auto) 2.6 Baso % (Auto) 0.8 Absolute Neuts (auto) 3.8 Absolute Lymphs (auto) 1.37 Nucleated RBC % 0 Sodium 133 L Potassium 4.0 Chloride 97 L Carbon Dioxide 31.0 Anion Gap 5 BUN 14 Creatinine 1.20 Estim Creat Clear Calc 65.90 Est GFR (MDRD) Af Amer 79 Est GFR (MDRD) Non-Af 65 BUN/Creatinine Ratio 11.7 Glucose 105 Calcium 8.7 Total Bilirubin 0.50 AST 19 ALT 16 Alkaline Phosphatase 87 Total Protein 6.4 Albumin 3.6 Globulin 2.8 Albumin/Globulin Ratio 1.3 TSH 4.38 H Urine Color Urine Clarity Urine pH Ur Specific [place] Urine Protein Urine Glucose (UA) Urine Ketones Urine Occult Blood Urine Nitrite Urine Bilirubin Urine Urobilinogen Ur Leukocyte Esterase Urine RBC Urine WBC Ur Squamous Epith Cells Urine Bacteria Urine Mucus Urine Opiates Screen Urine Methadone Screen Ur Barbiturates Screen Ur Phencyclidine Scrn Ur Amphetamines Screen U Methamphetamin-MDMA U Benzodiazepines Scrn Urine Cocaine Screen U Cannabinoids Screen Ur Drug Screen Comment Ethyl Alcohol < 3.0 10/19/19 10/19/19 12:00 12:00 WBC RBC Hgb Hct MCV MCH MCHC RDW Std Deviation RDW Coeff of Vicente Plt Count MPV Immature Gran % (Auto) Neut % (Auto) Lymph % (Auto) [place] % (Auto) Eos % (Auto) Baso % (Auto) Absolute Neuts (auto) Absolute Lymphs (auto) Nucleated RBC % Sodium Potassium Chloride Carbon Dioxide Anion Gap BUN Creatinine Estim Creat Clear Calc Est GFR (MDRD) Af Amer Est GFR (MDRD) Non-Af BUN/Creatinine Ratio Glucose Calcium Total Bilirubin AST ALT Alkaline Phosphatase Total Protein Albumin Globulin Albumin/Globulin Ratio TSH Urine Color Yellow Urine Clarity Clear Urine pH 7.0 Ur Specific [place] 1.005 Urine Protein Negative Urine Glucose (UA) Normal Urine Ketones Negative Urine Occult Blood Negative Urine Nitrite Negative Urine Bilirubin Negative Urine Urobilinogen Normal Ur Leukocyte Esterase Negative Urine RBC 0 SEEN Urine WBC 0 SEEN Ur Squamous Epith Cells 0 SEEN Urine Bacteria 0 SEEN Urine Mucus 0 SEEN Urine Opiates Screen NEGATIVE Urine Methadone Screen NEGATIVE Ur Barbiturates Screen NEGATIVE Ur Phencyclidine Scrn NEGATIVE Ur Amphetamines Screen NEGATIVE U Methamphetamin-MDMA POSITIVE H U Benzodiazepines Scrn NEGATIVE Urine Cocaine Screen NEGATIVE U Cannabinoids Screen NEGATIVE Ur Drug Screen Comment Ethyl Alcohol Patient's TSH is slightly high, meaning that his thyroid is a little on the low side, this can be dealt with as an outpatient and is not causing his psychosis/symptoms. Given this, the rest of his work-up being unremarkable except for the amphetamine test which is probably cross-reacting with 1 of his medications, he is medically cleared for psychiatric evaluation. Her pediatric social worker did perform the initial evaluation screening and agrees that he should be placed for further psychiatric evaluation. Furthermore, she discussed with prison and they confirmed that it is very unusual for him to have the symptoms or to need the emergency department, confirming the results of the screening. ED Disposition - Plan for ED Patient: Disposition: Psychiatric Hospital or Unit Diagnosis: Suicidal ideation, Schizophrenia Referrals: Dhara Taylor DO [Primary Care Provider] -
[2019-10-19 12:09] LABS: Bacteria 0 SEEN /hpf (None Seen); Mucous, Urine 0 SEEN /hpf (<or=2+); Red Blood Cells-Urine 0 SEEN /hpf (0-5); Squamous Epithelial Cells - UA 0 SEEN /hpf (0-5); White Blood Cells 0 SEEN /hpf (0-5)
[2019-10-19 12:13] LABS: Absolute Lymphocyte Count 1.37 X10^3/uL (0.83-4.51); Absolute Neutrophil Count 3.8 X10^3/uL (2.0-7.7); Basophil# 0.05 X10^3/uL; Basophil% 0.8 % (0-1); Eosinophil# 0.16 X10^3/uL; Eosinophils% 2.6 % (0-5); Hematocrit 34.9 % (40-54); Hemoglobin 11.6 g/dL (13.0-16.5); Lymphocyte # 1.37 X10^3/ul (4.0); Lymphocyte % 22.5 % (19-41); Mean Corp Hgb Conc 33.2 g/dL (32-36); Mean Corpuscular Hgb 28.6 pg (27.0-32.0); Mean Corpuscular Volume 86.2 fL (80-94); Mean Platelet Vol. 10.9 fl (6.2-12.0); Monocyte# 0.62 X10^3/uL; Monocyte% 10.2 % (0-10); NRBC Flagged by Analyzer 0 % (0-5); Neutrophil # 3.83 X10^3/uL (2.7-7.7); Neutrophil % 63.1 % (47-70); Platelet Count 220 K/mm3 (150-450); RBC Distribution Width CV 13.2 % (11.6-14.6); Red Blood Count 4.05 M/mm3 (4.6-6.2); White Blood Count 6.1 K/mm3 (4.4-11.0)
--- NOTE | 2019-10-19 12:36 | CM.ED ---
Social Work Consult: Suicidal Informant: Dr. Ibrahim Chief Complaint: Patient stating to need to talk to someone in the [facility] to do a debriefing. Patient also stating, I need to get out of there. Patient stating to have plans to complete suicide by way of knife under the rib cage. Marital/Social History: Single. Patient has a legal guardian, Nikki Farah, Living Situation: [facility]. Support/Resources: [facility]. Appears to be active with counseling, psychiatrist, and possibly case management. History: None Education/Employment: Bachelors degree. Disability. Reporting no learning or comprehension difficulties. Stating I am a very smart person. Mental Health Treatment/History: Stating to be diagnosed with schizoaffective disorder but to not be agreeable to this diagnosis. Patient stating maybe Bi-polar. Patient stating they have me on meds that I don't need. Patient stating to have a history of inpatient psychiatric placements with last placement being 3 years ago. Substance Abuse Hx: Denies Mental Status Exam: A&Ox3 Appearance/General Behavior: Clean, non-directable, calm. Mood/Affect: Depressed. Frustrated. Communication Pattern: Responds to some questions. Would often times respond to a question with talking about another topic. Would ramble about politics and government often. Thought Process: Denies any hallucinations or delusions. Appears preoccupied with politics and robot control. Paranoid. Risk to Self/Others: Patient did not respond when this social media director inquired if patient is suicidal. This social media director asking if patient has a plan to hurt self. Patient stating to have access to knives and a plan to cut under by rib cage. Patient stating I do not want to return there. Patient stating they do not let anyone in your room, there are only men there. Clarifying with patient that there is the fci where patient stays. Patient stating to have attempted suicide in the past but did not communicate how patient attempted. Patient would change subjects often during conversation. Assessment: Met with patient in room. Introduced self as well as social media director role. Patient agreeable to speak with this social media director. Patient stating to need to talk to a person to debrief me often throughout the conversation. Patient stating I know things. Patient stating to believe that the human population is controlled by robots. Patient stating to have a guardian but to not be sure why. Patient stating that at determined person will kills themselves, and I am determined. Patient stating to want to digress about bio weapon labs. Patient is stating to want to be at the hospital and is seeking help. Active listening and support provided. Telephone call to Afia SANTO with crisis. Exploring what patient base-line typically is. Afia stating that patient will often perseverate on government and robot control but that patient is typically able to be distracted from suicidal thoughts and does not typically have a plan or want to come to the hospital. Afia stating that patient can typically be directed. Telephone call to Nikki (guardian). Updated Nikki that patient is currently in the ER. Nikki stating to be aware. Updated Nikki on social work assessment. Nikki recommending inpatient psychiatric placement as patient does not typically have a plan for completing suicide and can be safety planned. Nikki stating that patient does not like to be in hospitals and does not typically come to the hospital. Nikki stating that patient is currently frustrated with current living situation due to patient wanting to have a female to speak with as patient lives in an all male fci. Nikki stating that patient is not able to live on own and unable to establish other fci arrangements at this time. Nikki stating to meet with patient monthly. Collaborating with Dr. Ibrahim. Updated Dr. Ibrahim on social work assessment and patient flight of ideas/topics. Dr. Ibrahim agreeing that patient would benefit from psychiatric placement for stabilization. Will work towards placement when patient is medically cleared. Nithya Das MSW, SHADIA
[2019-10-19 12:42] LABS: Alcohol, Blood (Medical)-Serum < 3.0 mg/dL
[2019-10-19 12:45] LABS: Amphetamine Urine VISTA NEGATIVE (<1000 ng/mL); Barbiturate Urine VISTA NEGATIVE (< 200 ng/mL); Benzodiazepine Urine VISTA NEGATIVE (< 200 ng/mL); Cocaine Urine VISTA NEGATIVE (< 300 ng/mL); Ecstacy Urine VISTA POSITIVE (< 500 ng/mL); Methadone Urine VISTA NEGATIVE (< 300 ng/mL); PCP Urine VISTA NEGATIVE (< 25 ng/mL); THC Urine VISTA NEGATIVE (< 50 ng/mL); Vista UDS pH Range 6
[2019-10-19 12:50] LABS: Color, Urine Yellow (Yellow); Glucose, Dipstick Normal (Normal); Ketone-Dipstick Negative (Negative); Leukocyte Esterase-Dipstick Negative /ul (Negative); Nitrite-Dipstick Negative (Negative); Occult Blood-Urine Negative /ul (Negative); Protein-Dipstick Negative (Negative); Specific Gravity, Urine 1.005 (1.002-1.030); Urine Bilirubin Dipstick Negative (Negative); Urine Clarity Clear (Clear); Urine Urobilinogen Normal (Normal)
[2019-10-19 12:53] LABS: ALB/GLOB Ratio 1.3 RATIO (0.9-2.4); AST(SGOT) 19 U/L (15-37); Alanine Aminotransfer ALT/SGPT 16 U/L (16-61); Albumin, Serum 3.6 g/dL (3.2-5.0); Alkaline Phosphatase 87 U/L (45-117); Anion Gap 5 (5-15); BUN 14 mg/dL (7-18); BUN/Creat Ratio 11.7 RATIO (10-20); Calcium,Total 8.7 mg/dL (8.5-10.1); Chloride 97 mmol/L (98-107); EST Glomerular Filtration Rate 65 mL/min (>60); Est Glom Filt Rate - Afr Amer 79 mL/min (>60); Globulin 2.8 g/dL (2.2-4.2); Glucose 105 mg/dL (74-106); Protein, Total 6.4 g/dL (6.4-8.2); Sodium Level 133 mmol/L (136-145); Thyroid Stim Hormone (TSH) 4.38 uIU/mL (0.358-3.74)
[2019-10-19 13:04] VITALS: RESP 14
--- NOTE | 2019-10-19 13:59 | CM.ED ---
Social Work Patient medically cleared per Dr. Ibrahim. Referral faxed to [facility], There are open beds and they do accept patient insurance. Pending approval. Nithya SARABIA, SHADIA
--- NOTE | 2019-10-19 14:18 | CM.ED ---
Social Work Telephone call from [facility], Patient has been accepted. Accepting Doctor: Dr. Monsalve. Nurse to nurse report: [phone]. Updated patient, nursing staff and doctor. All agreeable to plan. [facility] faxed. Was also able to obtain proof of guardianship paperwork. Faxed copy to [facility] and placed copy on patient medical chart. Nithya Das MSW, SHADIA
[2019-10-19 14:48] VITALS: BP 134/76; PULSE 84; RESP 18; O2SAT 99
== END 2019-10-19 14:50 ==
PROVIDERS: Emergency Provider Emergency Medicine; Family Provider Internal Medicine; PCP Internal Medicine
DX: F25.9 Schizoaffective disorder, unspecified (principal); R45.851 Suicidal ideations; J44.9 Chronic obstructive pulmonary disease, unspecified; I50.810 Right heart failure, unspecified; E11.9 Type 2 diabetes mellitus without complications; F17.200 Nicotine dependence, unspecified, uncomplicated; Z86.73 Personal history of transient ischemic attack (TIA), and cerebral infarction without residual deficits
CPT/HCPCS: 36415; 80053; 80307; 80320; 81001; 84443; 85025; 99285; G0480

== ENCOUNTER → 2019-11-04 06:27 | Outpatient (CLI) | payer MEDICARE, MEDICAID, SELFPAY ==
[2019-10-19 11:06] VITALS: BMI 32.0
--- NOTE | 2019-11-04 13:17 | NEURO ---
NCS and/or EMG Patient Report Ordering Doctor: Dhara Taylor DATE OF SERVICE: 11/04/19 Ajit Sosa is a 64-year-old male presents for electrodiagnostic testing of the lower limbs. He reports weakness in both legs. He does report a history of diabetes. Electrodiagnostic findings nerve conduction study peroneal motor nerve demonstrates normal distal latency, amplitude and conduction velocity bilaterally. Normal tibial motor response bilaterally. Normal peroneal and tibial F waves. H reflex prolonged bilaterally. Prolonged left sural latency. Prolonged left superficial peroneal latency. Patient refused to have plantar responses tested. Needle EMG testing reveals no evidence of denervation in any muscles tested with normal motor unit action potentials. Electrodiagnostic impression: This is an abnormal study in the lower limbs. 1. Electrodiagnostic findings suggestive of a mild sensory polyneuropathy, which may be secondary to diabetes. 2. There is no electrodiagnostic evidence for lumbosacral radiculopathy. If there are any further questions, please not hesitate to contact me
== END ==
PROVIDERS: Family Provider Internal Medicine; PCP Internal Medicine; Referring Provider Internal Medicine; Visit Provider Internal Medicine
DX: R26.89 Other abnormalities of gait and mobility (principal)
CPT/HCPCS: 95886; 95911

== ENCOUNTER 2019-11-05 20:06 | Emergency (ER) | payer MEDICARE, SELFPAY ==
[2019-11-05 20:07] VITALS: BP 132/67; PULSE 113; RESP 16; TEMP 36.7; O2SAT 96; BMI 29.4
--- NOTE | 2019-11-05 21:40 | RAD_ITS ---
STUDY: X-RAY CHEST REASON FOR EXAM: Male, 64 years old. SHORT OF BREATH, MENTAL HEALTH, RECENTLY DISCHARGED FROM A MENTAL HOSPITAL, HX ASTHMA, SMOKER TECHNIQUE: Single AP portable view of the chest. COMPARISON: Prior study of 05/02/2019 FINDINGS: The lungs are clear and expanded. There is no demonstrated pleural abnormality. Normal size heart. Normal mediastinum and jose. Normal visualized pulmonary arteries. There are calcified plaques of the aortic arch. There are diffuse degenerative changes of the visualized thoracic spine. There are several old right-sided rib fractures. There is no demonstrated abnormality of the visualized soft tissue structures of the upper abdomen. RAD/Chest 1 View (Portable) IMPRESSION: Calcific plaques of the aortic arch. Degenerative changes of the thoracic spine. No acute cardiopulmonary disease process is seen. Electronically Signed: Timbo Handy MD at 22:05 EST , Service support ,
--- NOTE | 2019-11-05 21:40 | EKG12_ITS ---
Test Reason : CP Blood Pressure : / mmHG Vent. Rate : 106 BPM Atrial Rate : 106 BPM P-R Int : 162 ms QRS Dur : 074 ms QT Int : 336 ms P-R-T Axes : 085 072 072 degrees QTc Int : 446 ms Sinus tachycardia Otherwise normal ECG Confirmed by PRAMOD ALSTON, BRENDA ([id number]), city editor MADDISON MERAZ ([id number]) on 11/10/2019 8:07:40 AM Referred By: Confirmed By:BRENDA BENAVIDEZ MD
[2019-11-05 22:02] LABS: Absolute Lymphocyte Count 1.38 X10^3/uL (0.83-4.51); Absolute Neutrophil Count 5.9 X10^3/uL (2.0-7.7); Basophil# 0.05 X10^3/uL; Basophil% 0.6 % (0-1); Eosinophil# 0.19 X10^3/uL; Eosinophils% 2.2 % (0-5); Lymphocyte # 1.38 X10^3/ul (4.0); Lymphocyte % 16.1 % (19-41); Mean Corp Hgb Conc 34.3 g/dL (32-36); Mean Corpuscular Hgb 28.8 pg (27.0-32.0); Mean Corpuscular Volume 84.1 fL (80-94); Monocyte% 10.5 % (0-10); NRBC Flagged by Analyzer 0 % (0-5); Neutrophil # 5.87 X10^3/uL (2.7-7.7); Neutrophil % 68.7 % (47-70); Platelet Count 238 K/mm3 (150-450); RBC Distribution Width CV 12.6 % (11.6-14.6); RBC Distribution Width SD 38.5 fl (35.1-43.9); Red Blood Count 4.16 M/mm3 (4.6-6.2); White Blood Count 8.6 K/mm3 (4.4-11.0)
[2019-11-05] MEDS: 0.9% Normal Saline 1,000 ML 150 ML IV (22:03)
[2019-11-05 22:20] LABS: Anion Gap 5 (5-15); BUN 14 mg/dL (7-18); Calcium,Total 9.4 mg/dL (8.5-10.1); Chloride 94 mmol/L (98-107); Creatinine, Serum 1.08 mg/dL (0.70-1.30); EST Glomerular Filtration Rate 73 mL/min (>60); Est Glom Filt Rate - Afr Amer 89 mL/min (>60); Estimated Creatinine Clearance 72.29 ml/min; Glucose 150 mg/dL (74-106); Potassium 4.2 mmol/L (3.5-5.1); Sodium Level 129 mmol/L (136-145)
--- NOTE | 2019-11-05 22:41 | ED.VISSUMM ---
- ER Visit Summary Date of Service: 11/05/19 Chief Complaint: [Shortness of breath] History of Present Illness: The patient is a 64 M [presents the emergency department complaint shortness of breath that started today. Patient is a poor historian as he is a paranoid schizophrenic and is having flight of ideas. Patient is currently in a correction and they called EMS because he was gasping for air. On EMS arrival patient was smoking a cigarette and quite comfortable. He denies any chest pain. Patient recently was discharged 2 days ago from psychiatric facility where he was admitted for suicidal ideation. Patient denies feeling suicidal or homicidal at this time. Patient believes that the medications they started him on may be contributing to his shortness of breath today. Denies any fevers or significant cough. He denies recent travel or surgery. He does have history of COPD as well as CHF, diabetes, history of TIAs, and history of schizophrenia.] Physical Examination: [HEENT-PERRLA, EOMI. Cranial nerves II through XII grossly intact. TMs clear. Mucous membranes moist. No adenopathy. Cardiovascular-regular rate and rhythm without murmur or ectopy Lungs-clear to auscultation, chest wall stable without crepitus or subcu emphysema Abdomen-normoactive bowel sounds, soft, nontender, no rebound or rigidity, no peritoneal signs. Extremities-intact ?4, normal range of motion, normal pulses, atraumatic] Test Results: [EKG obtained arrival shows sinus rhythm with a ventricular rate of 106 bpm with no acute ST segment changes. CBC with differential show a count of 8.6, hemoglobin 12, hematocrit 35, placed 238. Chemistries unremarkable. Troponin is less than 0.015.] Depakote level was 92. Chest x-ray showed nothing acute. Emergency Department Course and Treatment: [Patient had an IV line established on arrival. Patient was placed on a surveillance system monitor.] Treatment Plan: [Patient to follow-up with his primary care physician in 3 to 5 days. I see no evidence of dyspnea on exam. He is resting comfortably and breathing easily. Patient not having any respiratory difficulty.] Disposition: [Discharged home in stable condition] Impression: [Dyspnea-etiology uncertain Schizophrenia] This note was generated with [employer] software. It may contain incorrect words, spelling, and punctuation that were not noted in review of the chart prior to signing ED Disposition - Plan for ED Patient: Referrals: Dhara Taylor DO [Primary Care Provider] -
[2019-11-05 23:10] LABS: Valproic Acid (Depakene) Level 92 ug/mL (50-100)
--- NOTE | 2019-11-05 23:24 | ED.DEP ---
ED Disposition - Plan for ED Patient: Instructions: ED Dyspnea Referrals: Dhara Taylor DO [Primary Care Provider] - 3-5 Days
--- NOTE | 2019-11-05 23:25 | ED.DEP ---
ED Disposition - Plan for ED Patient: Instructions: ED Dyspnea Referrals: Dhara Taylor DO [Primary Care Provider] - 3-5 Days
== END 2019-11-05 23:38 | disposition home or self-care (01) ==
PROVIDERS: Emergency Provider Emergency Medicine; PCP Internal Medicine
DX: R06.00 Dyspnea, unspecified (principal); F20.0 Paranoid schizophrenia; F17.210 Nicotine dependence, cigarettes, uncomplicated; J44.9 Chronic obstructive pulmonary disease, unspecified; I50.9 Heart failure, unspecified; E11.9 Type 2 diabetes mellitus without complications; Z86.73 Personal history of transient ischemic attack (TIA), and cerebral infarction without residual deficits
CPT/HCPCS: 71045; 80048; 80164; 84484; 85025; 93005; 96360; 96361; 99285; J7030; A4216

== ENCOUNTER 2019-11-07 15:39 | Emergency (ER) | payer MEDICARE, MEDICAID, SELFPAY ==
[2019-11-07 15:42] VITALS: BP 168/119; PULSE 127; RESP 20; TEMP 36.8; O2SAT 93; BMI 29.7
--- NOTE | 2019-11-07 15:44 | RAD_ITS ---
STUDY: X-RAY CHEST REASON FOR EXAM: Male, 64 years old. CHEST PAIN TECHNIQUE: Single AP portable view of the chest. COMPARISON: Prior study of 11/05/2019 FINDINGS: The lungs are clear and expanded. There is no demonstrated pleural abnormality. Normal size heart. Normal mediastinum and jose. Normal visualized pulmonary arteries. There are calcified plaques of the aortic arch. There are diffuse degenerative changes of the visualized thoracic spine. Normal visualized ribs, clavicles, and shoulders. There is no demonstrated abnormality of the visualized soft tissue structures of the upper abdomen. RAD/Chest 1 View (Portable) IMPRESSION: Calcified plaques in the aortic arch. Degenerative changes of the thoracic spine. No acute cardiopulmonary disease process is seen. Chest findings are stable in interval. Electronically Signed: Timbo Handy MD at 16:19 EST , Service support ,
--- NOTE | 2019-11-07 15:44 | EKG12_ITS ---
Test Reason : Blood Pressure : / mmHG Vent. Rate : 126 BPM Atrial Rate : 126 BPM P-R Int : 160 ms QRS Dur : 070 ms QT Int : 306 ms P-R-T Axes : 078 068 060 degrees QTc Int : 443 ms Sinus tachycardia Nonspecific ST abnormality Abnormal ECG Confirmed by MATILDE ALSTON, WILFRID ([id number]), continuity editor FIDEL LA ([id number]) on 11/10/2019 8:31:14 AM Referred By: ALISSA Confirmed By:WILFRID CLAYTON MD
--- NOTE | 2019-11-07 15:53 | ED.VISSUMM ---
- ER Visit Summary Date of Service: 11/07/19 Chief Complaint: Shaking all over and chest pain History of Present Illness: The patient is a 64 M who psychiatric disorder for which she was just hospitalized in a psychiatric facility within the last week or 2. Patient states his been shaking all over. And he states he had an 8-minute episode today of pain across his chest. He denies ever having a cardiac catheterization. It does appear that he had a recent admission for chest pain and cardiac work-up. He denies any cardiac disease. He denies ever having a DVT or PE. He denies any leg pain or swelling. No hemoptysis. States when he had the pain this morning around 1030 it lasted 8 minutes or so. It was sharp pain across his chest. It resolved on its own and has not returned. Currently is chest pain-free. He denies any recent exertional dyspnea or exertional chest pain. Physical Examination: Older male no acute distress vital signs are stable afebrile. His arms and legs are shaking profusely. H EENT exam unremarkable. Moist extremities. No trauma. Neck nontender no JVD. Lungs clear to auscultation bilaterally. Heart regular rhythm rate about 80 no murmur. Chest wall nontender. Abdomen soft nontender normal bowel sounds no peritoneal signs. Extremities moves all 4. Equal symmetrical radial pulses. Calves are nontender. He does have trace edema both lower extremities which is chronic. Neurologically is awake and alert. His answer questions. Following commands. He has normal motor strength both upper and lower extremities. Test Results: CBC white count 8. Hemoglobin 9.5. Electrolytes sodium 126 he runs a baseline hyponatremia between 136 and 131. He is trending down. Troponin normal. EKG sinus tachycardia rate of 126 some of that may be artifactual due to his shaking. No signs of CO or ischemia. Chest x-ray portable 1 view read myself and radiologist shows chronic changes but no acute process. Normal mediastinum. Emergency Department Course and Treatment: 64-year-old male who is very anxious and shaking. His underlying psychiatric history. States he had a transient episode of chest pain earlier today. Will undergo a cardiac work-up and my suspicion at this time is low. Treatment Plan: Repeat exam patient is doing well at 1655. He and I went over all his test. He is comfortable being discharged to home. Disposition: Discharge Impression: Acute atypical chest pain resolved of uncertain etiology Anxiety with shaking History of underlying psychiatric illness This note was generated with [employer] dictation software. It may contain incorrect words, spelling, and punctuation that were not noted in review of the chart prior to signing ED Disposition - Plan for ED Patient: Referrals: Dhara Taylor DO [Primary Care Provider] -
[2019-11-07 16:05] VITALS: O2SAT 93
[2019-11-07 16:22] LABS: Absolute Neutrophil Count 6.3 X10^3/uL (2.0-7.7); Basophil# 0.04 X10^3/uL; Basophil% 0.5 % (0-1); Eosinophil# 0.06 X10^3/uL; Eosinophils% 0.7 % (0-5); Hematocrit 34.6 % (40-54); Hemoglobin 11.5 g/dL (13.0-16.5); Lymphocyte % 6.2 % (19-41); Mean Corp Hgb Conc 33.2 g/dL (32-36); Mean Corpuscular Hgb 28.3 pg (27.0-32.0); Mean Corpuscular Volume 85.2 fL (80-94); Mean Platelet Vol. 9.7 fl (6.2-12.0); Monocyte# 0.85 X10^3/uL; Monocyte% 10.6 % (0-10); NRBC Flagged by Analyzer 0 % (0-5); Neutrophil # 6.33 X10^3/uL (2.7-7.7); Neutrophil % 78.9 % (47-70); POSITIVE DIFFERENTIAL YES; Platelet Count 198 K/mm3 (150-450); RBC Distribution Width CV 12.8 % (11.6-14.6); RBC Distribution Width SD 39.5 fl (35.1-43.9); Red Blood Count 4.06 M/mm3 (4.6-6.2)
[2019-11-07 16:25] LABS: Differential Indicated SCAN CRITERIA MET
[2019-11-07 16:45] LABS: Differential Comment SCANNED
[2019-11-07 16:47] LABS: Anion Gap 7 (5-15); BUN 13 mg/dL (7-18); BUN/Creat Ratio 10.9 RATIO (10-20); Chloride 91 mmol/L (98-107); Creatinine, Serum 1.19 mg/dL (0.70-1.30); EST Glomerular Filtration Rate 66 mL/min (>60); Est Glom Filt Rate - Afr Amer 79 mL/min (>60); Glucose 145 mg/dL (74-106); Potassium 4.4 mmol/L (3.5-5.1); Sodium Level 126 mmol/L (136-145)
[2019-11-07 16:53] VITALS: PULSE 133; RESP 27; TEMP 38; O2SAT 93
--- NOTE | 2019-11-07 17:05 | ED.DEP ---
ED Disposition - Plan for ED Patient: Disposition: Home or Assisted Living Instructions: CHEST PAIN, Uncertain Cause Referrals: Dhara Taylor DO [Primary Care Provider] - As soon as possible Additional Instructions: Follow-up with your physician in the next several days.
[2019-11-07 17:35] VITALS: BP 104/86; PULSE 100; RESP 20; O2SAT 94
== END 2019-11-07 17:36 | disposition home or self-care (01) ==
PROVIDERS: Emergency Provider Emergency Medicine; PCP Internal Medicine
DX: R07.89 Other chest pain (principal); F41.9 Anxiety disorder, unspecified; R25.1 Tremor, unspecified; J44.9 Chronic obstructive pulmonary disease, unspecified; K21.9 Gastro-esophageal reflux disease without esophagitis; E11.9 Type 2 diabetes mellitus without complications; Z72.0 Tobacco use; Z79.84 Long term (current) use of oral hypoglycemic drugs; Z79.51 Long term (current) use of inhaled steroids; Z79.82 Long term (current) use of aspirin; Z79.899 Other long term (current) drug therapy
CPT/HCPCS: 71045; 80048; 84484; 85025; 93005; 99285

== ENCOUNTER → 2019-12-14 | Outpatient (CLI) | payer MEDICARE, MEDICAID, SELFPAY ==
[2019-12-14 16:25] LABS: Platelet Count 213 K/mm3 (150-450)
[2019-12-14 16:52] LABS: AST(SGOT) 19 U/L (15-37); Alanine Aminotransfer ALT/SGPT 15 U/L (16-61)
[2019-12-14 17:08] LABS: Valproic Acid (Depakene) Level 82 ug/mL (50-100)
== END | disposition home or self-care (01) ==
LOC: LAB 15:54
PROVIDERS: PCP Internal Medicine; Referring Provider Psychiatry & Neurology Psychiatry; Visit Provider Psychiatry & Neurology Psychiatry
DX: Z79.899 Other long term (current) drug therapy (principal)
CPT/HCPCS: 36415; 80164; 82140; 84450; 84460; 85049

== ENCOUNTER 2020-02-13 18:49 | Emergency (ER) | payer MEDICARE, MEDICAID, SELFPAY ==
[2020-02-13 18:50] VITALS: BP 147/78; PULSE 69; RESP 18; TEMP 35.9; O2SAT 100; BMI 30.1
[2020-02-13 19:59] LABS: Absolute Lymphocyte Count 1.31 X10^3/uL (0.83-4.51); Absolute Neutrophil Count 5.4 X10^3/uL (2.0-7.7); Basophil# 0.06 X10^3/uL; Basophil% 0.8 % (0-1); Eosinophil# 0.01 X10^3/uL; Eosinophils% 0.1 % (0-5); Hematocrit 38.7 % (40-54); Hemoglobin 12.7 g/dL (13.0-16.5); Lymphocyte # 1.31 X10^3/ul (4.0); Lymphocyte % 17.4 % (19-41); Mean Corp Hgb Conc 32.8 g/dL (32-36); Mean Corpuscular Hgb 28.5 pg (27.0-32.0); Mean Corpuscular Volume 86.8 fL (80-94); Mean Platelet Vol. 10.1 fl (6.2-12.0); Monocyte# 0.68 X10^3/uL; NRBC Flagged by Analyzer 0 % (0-5); Neutrophil # 5.44 X10^3/uL (2.7-7.7); Neutrophil % 72.2 % (47-70); Platelet Count 231 K/mm3 (150-450); RBC Distribution Width CV 12.9 % (11.6-14.6); RBC Distribution Width SD 40.6 fl (35.1-43.9); Red Blood Count 4.46 M/mm3 (4.6-6.2); White Blood Count 7.5 K/mm3 (4.4-11.0)
--- NOTE | 2020-02-13 20:08 | ED.VISSUMM ---
- ER Visit Summary Date of Service: 02/13/20 Chief Complaint: Mental evaluation History of Present Illness: The patient is a 64 M who presents from his [place] [facility] for an evaluation. Patient has a history of schizophrenia. History is obtained from the patient and from his guardian. He was trying to leave his [place] care facility tonight to stay with a friend. His guardian was concerned that this friend takes advantage of people, but this is only a suspicion. The patient says that his antipsychotics are not helping him. He is talking about the MINE and has multiple delusions about the coronavirus. He also is concerned that his injectable antipsychotic was replaced with a new medication or substance, and it is not working. He denies any suicidal or homicidal thoughts. According to his guardian, he has chronic leg wounds with rashes and a purple discoloration. The patient has been refusing to wear his compression stockings. Patient tells me that his legs always look like this and denies any new symptoms. Physical Examination: Afebrile and vital signs unremarkable. Patient is alert and oriented to person and place. He has multiple delusions, flight of ideas, perseveration. Denies suicidal or homicidal thoughts. Heart regular. Lungs clear. Abdomen soft. Bilateral lower extremities show venous stasis changes with trace edema, nontender. He is neurovascular intact. No obvious cellulitis or wounds. Test Results: Hemoglobin stable at 12.7. CMP unremarkable. Tox screen negative. Urinalysis negative. Alcohol pending. Emergency Department Course and Treatment: Patient has a history of schizophrenia and presents with psychosis. He is exhibiting some unsafe behavior and delusions. I did complete a pink slip for his safety. I started a medical work-up. I spoke with his guardian. It sounds like his leg wounds are chronic thing. I cannot find any acute process like a cellulitis or other wounds. I believe this can be managed as an outpatient. I am more concerned for his delusions and psychosis. I am concerned he may be unsafe and will have crisis evaluate him for placement. Treatment Plan: As above Disposition: Pending Impression: Paranoid delusions, schizophrenia, bilateral leg edema with venous stasis changes This note was generated with [employer] software. It may contain incorrect words, spelling, and punctuation that were not noted in review of the chart prior to signing ED Disposition - Plan for ED Patient: Referrals: Dhara Taylor, DO [Primary Care Provider] -
[2020-02-13 20:12] LABS: Bacteria 0 SEEN /hpf (None Seen); Mucous, Urine 0 SEEN /hpf (<or=2+); Squamous Epithelial Cells - UA 0 SEEN /hpf (0-5)
[2020-02-13 20:16] LABS: ALB/GLOB Ratio 1.2 RATIO (0.9-2.4); AST(SGOT) 16 U/L (15-37); Alanine Aminotransfer ALT/SGPT 14 U/L (16-61); Albumin, Serum 3.6 g/dL (3.2-5.0); Alkaline Phosphatase 109 U/L (45-117); Anion Gap 8 (5-15); BUN 17 mg/dL (7-18); BUN/Creat Ratio 13.9 RATIO (10-20); Calcium,Total 8.8 mg/dL (8.5-10.1); Chloride 100 mmol/L (98-107); Creatinine, Serum 1.22 mg/dL (0.70-1.30); EST Glomerular Filtration Rate 64 mL/min (>60); Est Glom Filt Rate - Afr Amer 77 mL/min (>60); Estimated Creatinine Clearance 63.99 ml/min; Glucose 138 mg/dL (74-106); Potassium 4.2 mmol/L (3.5-5.1); Protein, Total 6.6 g/dL (6.4-8.2); Sodium Level 136 mmol/L (136-145)
[2020-02-13 20:20] LABS: Color, Urine STRAW (Yellow); Glucose, Dipstick NEGATIVE (Normal); Ketone-Dipstick Negative (Negative); Specific Gravity, Urine 1.005 (1.002-1.030); Urine Bilirubin Dipstick Negative (Negative); Urine Clarity Clear (Clear)
[2020-02-13 20:21] LABS: Leukocyte Esterase-Dipstick Negative /ul (Negative); Nitrite-Dipstick Negative (Negative); Occult Blood-Urine Negative /ul (Negative); Protein-Dipstick 15 mg/dl (Negative); Urine Urobilinogen Normal (Normal)
[2020-02-13 20:23] LABS: Red Blood Cells-Urine 0-5 SEEN /hpf (0-5); White Blood Cells 0-5 SEEN /hpf (0-5)
[2020-02-13 20:26] LABS: Amphetamine Urine VISTA NEGATIVE (<1000 ng/mL); Barbiturate Urine VISTA NEGATIVE (< 200 ng/mL); Benzodiazepine Urine VISTA NEGATIVE (< 200 ng/mL); Cocaine Urine VISTA NEGATIVE (< 300 ng/mL); Ecstacy Urine VISTA NEGATIVE (< 500 ng/mL); Methadone Urine VISTA NEGATIVE (< 300 ng/mL); PCP Urine VISTA NEGATIVE (< 25 ng/mL); THC Urine VISTA NEGATIVE (< 50 ng/mL); Vista UDS pH Range 7
[2020-02-13 20:33] LABS: Alcohol, Blood (Medical)-Serum < 3.0 mg/dL
[2020-02-13 20:57] VITALS: RESP 16
--- NOTE | 2020-02-13 21:57 | ED.DCSUM_ITS ---
- ER Visit Summary Date of Service: 02/13/20 Chief Complaint: [] History of Present Illness: The patient is a 64 M [] Physical Examination: [] Test Results: [] Emergency Department Course and Treatment: [] Treatment Plan: [] Disposition: [] Impression: [] This note was generated with [employer] software. It may contain incorrect words, spelling, and punctuation that were not noted in review of the chart prior to signing ED Disposition - Plan for ED Patient: Disposition: Home or Assisted Living Diagnosis: Schizoaffective disorder, bipolar type Instructions: ED Schizo Affective Disorder Referrals: Dhara Taylor DO [Primary Care Provider] - Counseling,Center [GROUP OF PHYSICIANS] - Keep Rj appointment
== END 2020-02-13 22:21 | disposition home or self-care (01) ==
PROVIDERS: Emergency Provider Emergency Medicine; PCP Internal Medicine
DX: F20.0 Paranoid schizophrenia (principal); I87.8 Other specified disorders of veins; R60.0 Localized edema; I50.9 Heart failure, unspecified; J44.9 Chronic obstructive pulmonary disease, unspecified; E11.9 Type 2 diabetes mellitus without complications; Z86.73 Personal history of transient ischemic attack (TIA), and cerebral infarction without residual deficits; Z72.0 Tobacco use
CPT/HCPCS: 36415; 80053; 80307; 80320; 81001; 85025; 99285; G0480

== ENCOUNTER 2020-03-27 06:58 | Emergency (ER) | payer MEDICARE, MEDICAID, SELFPAY ==
[2020-03-27 07:02] VITALS: BP 173/81; PULSE 95; RESP 16; TEMP 36.6; O2SAT 98; BMI 32.2
--- NOTE | 2020-03-27 07:13 | EKG12_ITS ---
Test Reason : DYSRHYTHMIA Blood Pressure : / mmHG Vent. Rate : 092 BPM Atrial Rate : 092 BPM P-R Int : 174 ms QRS Dur : 080 ms QT Int : 338 ms P-R-T Axes : 080 066 079 degrees QTc Int : 417 ms Normal sinus rhythm Normal ECG Confirmed by MATILDE ALSTON, WILFRID ([id number]), makeup editor FIDEL LA ([id number]) on 03/29/2020 9:01:02 AM Referred By: AMOL Confirmed By:WILFRID CLAYTON MD
[2020-03-27 07:47] LABS: Absolute Lymphocyte Count 1.22 X10^3/uL (0.83-4.51); Basophil# 0.06 X10^3/uL; Eosinophil# 0.11 X10^3/uL; Eosinophils% 1.8 % (0-5); Hematocrit 36.7 % (40-54); Lymphocyte # 1.22 X10^3/ul (4.0); Lymphocyte % 19.7 % (19-41); Mean Corp Hgb Conc 32.7 g/dL (32-36); Mean Corpuscular Hgb 28.4 pg (27.0-32.0); Mean Corpuscular Volume 86.8 fL (80-94); Mean Platelet Vol. 10.1 fl (6.2-12.0); Monocyte# 0.74 X10^3/uL; NRBC Flagged by Analyzer 0 % (0-5); Neutrophil # 4.04 X10^3/uL (2.7-7.7); Neutrophil % 65.2 % (47-70); Platelet Count 211 K/mm3 (150-450); RBC Distribution Width SD 40.9 fl (35.1-43.9); Red Blood Count 4.23 M/mm3 (4.6-6.2); White Blood Count 6.2 K/mm3 (4.4-11.0)
--- NOTE | 2020-03-27 07:47 | ED.RN ---
Pt telling this nurse while drawing his blood that the MINE and FBI need to hide him somewhere or he will be killed. He states that he knows too much information on the coronavirus and the [place] spies that are here [place] the [place].
--- NOTE | 2020-03-27 07:53 | ED.VISSUMM ---
- ER Visit Summary Date of Service: 03/27/20 Chief Complaint: I need hidden from the FBI History of Present Illness: The patient is a 64 M who is here because he is having delusions and hallucinations. He keeps telling me that he is to be hidden from the FBI because he knows secrets about the [place]. He then keeps talking about other noncoherent issues such as finger length and forehead shape that determines pupils nationality's. He has been seen here before for psychosis. He does have a history of schizophrenia. He is unable to give me any more history. Physical Examination: Vital signs reviewed. HEENT exam unremarkable. Heart is regular rate and rhythm without murmurs. Lungs are clear to auscultation. Abdomen is soft and nontender. Extremities reveal no edema. Skin exam normal. Neurologic exam shows equal strength and sensation. No facial droop. Psychiatric exam shows a flat affect. He does have incoherent thoughts at times. He does voice delusions. He does not admit to any hallucinations Test Results: EKG unremarkable. Hemoglobin 12. Sodium 132. Glucose 206. Tox screen and alcohol are negative Emergency Department Course and Treatment: Patient was evaluated by crisis. They know him well. Patient just saw his psychiatrist earlier this week. He had a similar presentation as he does today. He was telling his psychiatrist the same thing he was saying today. Patient is not a harm to himself or others. He lives in a [place] [facility] setting and is monitored there. They feel he can be discharged back to their for monitoring. I feel that this is safe. They will follow-up with him later tonight as well. He will continue his medication regimen. Treatment Plan: [] Disposition: Discharge Impression: Psychosis This note was generated with [employer] software. It may contain incorrect words, spelling, and punctuation that were not noted in review of the chart prior to signing ED Disposition - Plan for ED Patient: Disposition: Home or Assisted Living Instructions: ED Paranoid Schizophrenia Referrals: Dhara Taylor DO [Primary Care Provider] -
[2020-03-27 08:24] LABS: Bacteria 0 SEEN /hpf (None Seen); Mucous, Urine 0 SEEN /hpf (<or=2+); Red Blood Cells-Urine 0 SEEN /hpf (0-5); Squamous Epithelial Cells - UA 0 SEEN /hpf (0-5); White Blood Cells 0 SEEN /hpf (0-5)
[2020-03-27 08:25] LABS: Color, Urine Yellow (Yellow); Glucose, Dipstick Normal (Normal); Ketone-Dipstick Negative (Negative); Leukocyte Esterase-Dipstick Negative /ul (Negative); Nitrite-Dipstick Negative (Negative); Occult Blood-Urine Negative /ul (Negative); Protein-Dipstick Negative (Negative); Specific Gravity, Urine 1.005 (1.002-1.030); Urine Bilirubin Dipstick Negative (Negative); Urine Clarity Clear (Clear); Urine Urobilinogen Normal (Normal)
[2020-03-27 08:29] LABS: Alcohol, Blood (Medical)-Serum < 3.0 mg/dL
[2020-03-27 08:32] LABS: ALB/GLOB Ratio 1.1 RATIO (0.9-2.4); AST(SGOT) 15 U/L (15-37); Alanine Aminotransfer ALT/SGPT 15 U/L (16-61); Albumin, Serum 3.4 g/dL (3.2-5.0); Alkaline Phosphatase 119 U/L (45-117); Anion Gap 2 (5-15); BUN 13 mg/dL (7-18); Calcium,Total 8.8 mg/dL (8.5-10.1); Chloride 98 mmol/L (98-107); Creatinine, Serum 1.18 mg/dL (0.70-1.30); EST Glomerular Filtration Rate 66 mL/min (>60); Est Glom Filt Rate - Afr Amer 80 mL/min (>60); Estimated Creatinine Clearance 66.16 ml/min; Globulin 3.2 g/dL (2.2-4.2); Glucose 206 mg/dL (74-106); Protein, Total 6.6 g/dL (6.4-8.2); Sodium Level 132 mmol/L (136-145)
[2020-03-27 08:40] LABS: Amphetamine Urine VISTA NEGATIVE (<1000 ng/mL); Barbiturate Urine VISTA NEGATIVE (< 200 ng/mL); Benzodiazepine Urine VISTA NEGATIVE (< 200 ng/mL); Cocaine Urine VISTA NEGATIVE (< 300 ng/mL); Ecstacy Urine VISTA NEGATIVE (< 500 ng/mL); Methadone Urine VISTA NEGATIVE (< 300 ng/mL); PCP Urine VISTA NEGATIVE (< 25 ng/mL); THC Urine VISTA NEGATIVE (< 50 ng/mL); Vista UDS pH Range 7
[2020-03-27 08:53] VITALS: BP 147/79; PULSE 76; RESP 13; O2SAT 97
--- NOTE | 2020-03-27 08:58 | ED.RN ---
paged counseling center for pt.
--- NOTE | 2020-03-27 09:02 | ED.RN ---
PT ON THE PHONE WITH THE [facility]SELING [facility]
[2020-03-27 09:44] VITALS: PULSE 94; RESP 16; O2SAT 96
== END 2020-03-27 09:44 | disposition home or self-care (01) ==
PROVIDERS: Emergency Provider Emergency Medicine; PCP Internal Medicine
DX: F29 Unspecified psychosis not due to a substance or known physiological condition (principal)
CPT/HCPCS: 36415; 80053; 80307; 80320; 81001; 85025; 93005; 99282; G0480

== ENCOUNTER 2020-07-22 16:21 | Emergency (ER) | payer MEDICARE, MEDICAID, SELFPAY ==
[2020-07-22 16:22] VITALS: BP 119/89; PULSE 115; RESP 16; TEMP 35.7; O2SAT 98; BMI 30.1
--- NOTE | 2020-07-22 17:27 | ED.VIS.GEN ---
History of Present Illness Informant: Patient Onset: Days Narrative: 64-year-old male with past medical history of COPD, type 2 diabetes, schizoaffective disorder presents with complaints of sore throat. States he has had a sore throat and productive cough x1 week. Today he was worried because he checked his temperature and it was 97 Fahrenheit and it is normally 98. Denies fevers or chills. Denies dysphagia or odynophagia. He is eating and drinking normally. Denies chest pain, nominal pain, nausea, or vomiting. He states he has chronic dyspnea on exertion from his COPD and it is no worse than usual. He states he thinks his home inhalers need increased and would like a breathing treatment here. <Samantha Card - Last Filed: 07/22/20 18:01> <Viral Nelson - Last Filed: 07/22/20 20:10> Chief Complaint: Sore Throat Past Medical History Past Medical History: - - COPD, type 2 diabetes, schizoaffective disorder Surgical History: tonsillectomy, - - Debridement of left foot ulcer and anterior borja ulcer. Smoking Status: Current every day smoker - Family History Maternal Family History: Reports: Heart Disease Paternal Family History: Reports: Diabetes Sibling Family History: Reports: Hypertension <Samantha Card - Last Filed: 07/22/20 18:01> <Viral Nelson - Last Filed: 07/22/20 20:10> - Allergies and Home Meds Allergies/Adverse Reactions: Allergies sulfamethoxazole Allergy (Mild, Verified 02/13/20 18:50) Unknown trimethoprim Allergy (Mild, Verified 02/13/20 18:50) Unknown Penicillins [PCN] Allergy (Verified 02/13/20 18:50) Unknown Primary Care Physician: Dhara Taylor DO [Primary Care Provider] - Review of Systems General: Denies: Chills, Fever, Sweats Eyes: Denies: Visual changes - bilaterally, Diplopia ENT: Reports: Sore throat, -. Denies: Rhinorrhea Cardiovascular: Denies: Chest pain, Palpitations Respiratory: Reports: Dyspnea on exertion. Denies: Cough Gastrointestinal: Denies: Abdominal pain, Nausea, Vomiting, Diarrhea Genitourinary: Denies: Dysuria, Hematuria, Frequency Musculoskeletal: Denies: Back pain, Extremity Pain Skin: Denies: Rash, Wounds Neurological: Denies: Headache, Weakness, Numbness <Samantha Card - Last Filed: 07/22/20 18:01> Physical Exam Vital Signs/Narrative: Vital Signs Temp Pulse Resp BP Pulse Ox 07/22/20 16:22 96.2 F L 115 H 16 119/89 H 98 General: Well nourished, Well developed, No Acute Distress Head: Normocephalic, Atraumatic Eyes: Perrl, EOMI ENT: Moist mucous membranes, No rhinorrhea, - - No trismus. Uvula midline. No tonsillar edema, erythema, or exudate. Airway patent. Neck: Supple, Nontender Cardiovascular: Regular rate, Regular rhythm, No murmurs Respiratory: No distress, CTA bilaterally Back: Nontender, Normal Inspection Extremities: Nontender, No edema Skin: Normal color, No rash Neurological: Alert, Oriented x3, Cranial nerves II-XII grossly intact Psychological: Normal affect, Normal Mood <Samantha Card - Last Filed: 07/22/20 18:01> Vital Signs/Narrative: Vital Signs Temp Pulse Resp BP Pulse Ox 07/22/20 18:20 109 H 20 H 109/74 94 07/22/20 17:38 106 H 19 H 07/22/20 16:22 96.2 F L 115 H 16 119/89 H 98 <Viral Nelson - Last Filed: 07/22/20 20:10> Diagnostic/Tx/Re-eval - Medical Decision Making Patient presented with sore throat and productive cough. He appears well nontoxic. Vital signs show tachycardia 115, otherwise normal. O2 sat 98% on room air. HEENT exam was unremarkable. Initially lungs were clear to auscultation. After aerosols he did have some wheezing and is moving air more easily. Heart rate improved to 106. Chest x-ray negative. With productive cough and history of COPD patient will be given steroid burst, Doxycycline, and a higher dose of his Advair. Advised to follow-up with PCP. He was agreeable with this plan and discharged home in stable condition. <Samantha Card - Last Filed: 07/22/20 18:01> - Medical Decision Making Independent history and physical was performed by me. Patient presents with productive cough of white-colored sputum which is abnormal for patient. He is a smoker 1 pack/day since he was a teenager. He also complains of congestion. He denies fever or chills. He denies loss of taste or smell. He denies GI symptoms. Patient has wheezing even after treatment. He states he has chronic wheezing. Heart is regular. Lower extremity exam is unremarkable. Chest x-ray and proper blood work was ordered. There is no evidence of pneumonia. Since patient had a change in color of his sputum he was treated with doxycycline and placed on a burst of prednisone. <Viral Nelson - Last Filed: 07/22/20 20:10> ED Disposition <Samantha Card - Last Filed: 07/22/20 18:01> <Viral Nelson - Last Filed: 07/22/20 20:10> - Plan for ED Patient: Disposition: Home or Assisted Living Diagnosis: COPD (chronic obstructive pulmonary disease) Instructions: ED COPD Flare Prescriptions: Fluticasone/Salmeterol [Advair 500-50 Diskus] 1 ea IH BID PRN PRN #1 blst.w.[email or web address] PRN Reason: Dyspnea Transmission Status: Received by [facility] Prednisone [Deltasone] 40 mg PO DAILY #5 tab Transmission Status: Received by [facility] Doxycycline 100 mg PO BID #10 cap Transmission Status: [facility] [id number] Referrals: Dhara Taylor DO [Primary Care Provider] -
[2020-07-22 17:38] VITALS: PULSE 106; RESP 19
[2020-07-22] MEDS: Albuterol 2.5 MG/3 ML VIAL.NEB. INHALATION (17:38)
--- NOTE | 2020-07-22 17:55 | RAD_ITS ---
STUDY: X-RAY CHEST REASON FOR EXAM: Male, 64 years old. Shortness of breath, sore throat TECHNIQUE: Frontal view COMPARISON: 07/11/2020 FINDINGS: The lungs are clear and expanded. There is no demonstrated pleural abnormality. Normal size heart. Normal mediastinum and jose. Normal visualized pulmonary arteries. Normal visualized aortic arch and descending thoracic aorta. Degenerative changes of the thoracic spine. Normal visualized ribs, clavicles, and shoulders. There is no demonstrated abnormality of the visualized soft tissue structures of the upper abdomen. RAD/Chest 1 View (Portable) IMPRESSION: Normal x-ray examination of the chest. Electronically Signed: Herman Saldaña DO at 18:31 EDT Tel [phone], Service support ,
[2020-07-22 18:20] VITALS: BP 109/74; PULSE 109; RESP 20; O2SAT 94
== END 2020-07-22 18:21 | disposition home or self-care (01) ==
PROVIDERS: Emergency Provider Physician Assistant; PCP Internal Medicine
DX: J44.9 Chronic obstructive pulmonary disease, unspecified (principal); E11.9 Type 2 diabetes mellitus without complications; F17.200 Nicotine dependence, unspecified, uncomplicated
CPT/HCPCS: 71045; 94640; 94760; 99281; 99283

== ENCOUNTER 2020-07-23 19:58 | Emergency (ER) | payer MEDICARE, MEDICAID, SELFPAY ==
[2020-07-22 16:22] VITALS: BMI 30.1
[2020-07-23 19:59] VITALS: BP 167/85; PULSE 111; RESP 18; TEMP 37.2; O2SAT 97; BMI 31.2
[2020-07-23 20:02] VITALS: BP 167/85; PULSE 111; RESP 18; TEMP 37.2; O2SAT 97
--- NOTE | 2020-07-23 20:17 | ED.DCSUM_ITS ---
History of Present Illness Chief Complaint: Bite Informant: Patient Onset: Today Current Severity: Mild Maximum Severity: Mild Narrative: Patient presents with a wound to the palm of the right hand that he believes is secondary to a spider bite. He states he first noticed it around 2 or 3:00 this afternoon. He did not see a spider. He states he did clean the wound and put hydrogen peroxide on it. Patient was seen in the ER yesterday with sore throat and cough. He was ordered steroids and doxycycline. Patient states that because his medications come through [facility] he will not get them until Saturday. - Past Medical History (1) COPD (chronic obstructive pulmonary disease) Status: Chronic (2) Right-sided heart failure Status: Chronic (3) Schizophrenia Status: Chronic (4) Type II diabetes mellitus Status: Chronic (5) TIA (transient ischemic attack) Status: Resolved Past Medical History - Allergies and Home Meds Allergies/Adverse Reactions: Allergies sulfamethoxazole Allergy (Mild, Verified 07/23/20 20:03) Unknown trimethoprim Allergy (Mild, Verified 07/23/20 20:03) Unknown Penicillins [PCN] Allergy (Verified 07/23/20 20:03) Unknown Primary Care Physician: Dhara Taylor DO [Primary Care Provider] - Prior records reviewed: Yes Surgical History: tonsillectomy, - - Debridement of left foot ulcer and anterior borja ulcer. Smoking Status: Current every day smoker - Family History Maternal Family History: Reports: Heart Disease Paternal Family History: Reports: Diabetes Sibling Family History: Reports: Hypertension Review of Systems General: Denies: Chills, Fever Eyes: Denies: Visual changes - bilaterally ENT: Denies: Bilateral ear pain Cardiovascular: Denies: Chest pain Respiratory: Denies: Dyspnea, Cough Gastrointestinal: Denies: Abdominal pain Skin: Reports: Wounds Neurological: Denies: Weakness, Parasthesia Hematologic: Denies: Easy bruising, Easy bleeding Allergy: Denies: Uticaria Physical Exam Vital Signs/Narrative: Vital Signs Temp Pulse Resp BP Pulse Ox 07/23/20 20:02 99 F 111 H 18 167/85 H 97 07/23/20 19:59 99 F 111 H 18 167/85 H 97 Inital Vital Signs reviewed: Yes General: Well nourished, Well developed Head: Normocephalic ENT: Moist mucous membranes Neck: Supple Cardiovascular: Regular rate, Regular rhythm Respiratory: No distress, CTA bilaterally Abdomen: Soft, Nontender Skin: - - Patient has a shallow ulceration over the thenar eminence of the right hand. No drainage or open wounds noted. No fluctuance. Full range of motion of all digits. Neurological: Alert, Oriented x3 Psychological: Normal affect Diagnostic/Tx/Re-eval - Medical Decision Making Wound is cleansed and dressed. Patient will continue the doxycycline his previously prescribed. We will get him a dose here tonight. ED Disposition - Plan for ED Patient: Disposition: Home or Assisted Living Diagnosis: Bite wound of right hand Instructions: ED Bite Spider Non Poisonous Referrals: Dhara Taylor DO [Primary Care Provider] - 1 Week
[2020-07-23] MEDS: Doxycycline 100 MG CAPSULE PO ×3 (20:30)
== END 2020-07-23 20:32 | disposition home or self-care (01) ==
PROVIDERS: Emergency Provider Emergency Medicine; PCP Internal Medicine
DX: S60.561A Insect bite (nonvenomous) of right hand, initial encounter (principal); J44.9 Chronic obstructive pulmonary disease, unspecified; E11.9 Type 2 diabetes mellitus without complications; Z86.73 Personal history of transient ischemic attack (TIA), and cerebral infarction without residual deficits; Z79.51 Long term (current) use of inhaled steroids; Z79.84 Long term (current) use of oral hypoglycemic drugs; Z79.899 Other long term (current) drug therapy; F17.200 Nicotine dependence, unspecified, uncomplicated; W57.XXXA Bitten or stung by nonvenomous insect and other nonvenomous arthropods, initial encounter; Y93.89 Activity, other specified; Y92.89 Other specified places as the place of occurrence of the external cause; Y99.8 Other external cause status
CPT/HCPCS: 99283; 99284

== ENCOUNTER 2020-09-16 16:59 | Emergency (ER) | payer MEDICARE, MEDICAID, SELFPAY ==
[2020-09-16 17:00] VITALS: BP 183/96; PULSE 119; RESP 18; TEMP 36.1; O2SAT 99; BMI 31.1
--- NOTE | 2020-09-16 17:31 | ED.VIS.GEN ---
History of Present Illness Chief Complaint: Shortness of Breath Informant: Patient Onset: Days Context: Gradual Onset Current Severity: Mild Maximum Severity: Mild Narrative: Patient presents stating that he feels short of breath with cough and sweats. Patient believes it is because his blood sugar is off. He recently started taking chromium picolinate which has brought down his hemoglobin A1c in the past. He is concerned that his blood sugars are dropping too low. He initially went to urgent care and when he advised him with his symptoms he was sent to the emergency room. Patient does state he was started on doxycycline 2 or 3 days ago. He was also started on Januvia 10 days ago and does take Metformin for his blood sugar as well. He does not check his blood sugars at home. - Past Medical History (1) COPD (chronic obstructive pulmonary disease) Status: Chronic (2) Right-sided heart failure Status: Chronic (3) Schizophrenia Status: Chronic (4) Type II diabetes mellitus Status: Chronic (5) TIA (transient ischemic attack) Status: Resolved Past Medical History - Allergies and Home Meds Allergies/Adverse Reactions: Allergies sulfamethoxazole Allergy (Mild, Verified 09/16/20 17:04) Unknown trimethoprim Allergy (Mild, Verified 09/16/20 17:04) Unknown Penicillins [PCN] Allergy (Verified 09/16/20 17:04) Unknown Primary Care Physician: Dhara Taylor DO [Primary Care Provider] - Prior records reviewed: Yes Surgical History: tonsillectomy, - - Debridement of left foot ulcer and anterior borja ulcer. Lives: - - long-term Smoking Status: Current every day smoker - Family History Maternal Family History: Reports: Heart Disease Paternal Family History: Reports: Diabetes Sibling Family History: Reports: Hypertension Review of Systems General: Reports: Sweats. Denies: Chills, Fever Eyes: Denies: Visual changes - bilaterally ENT: Denies: Bilateral ear pain Cardiovascular: Denies: Chest pain Respiratory: Reports: Dyspnea, Cough, Sputum Gastrointestinal: Denies: Abdominal pain, Vomiting, Diarrhea Musculoskeletal: Denies: Swelling, Extremity Pain Skin: Denies: Rash Neurological: Denies: Headache Hematologic: Denies: Easy bruising, Easy bleeding Allergy: Denies: Uticaria Physical Exam Vital Signs/Narrative: Vital Signs Temp Pulse Resp BP Pulse Ox 09/16/20 17:00 96.9 F L 119 H 18 183/96 H 99 Inital Vital Signs reviewed: Yes General: Well nourished, Well developed Head: Normocephalic ENT: Moist mucous membranes Neck: Supple Cardiovascular: Regular rate, Regular rhythm Respiratory: No distress, - - Expiratory wheezes Abdomen: Soft, Nontender Extremities: Nontender Skin: Normal color Neurological: Alert, Oriented x3 Psychological: Normal affect Diagnostic/Tx/Re-eval Impressions Chest X-Ray 09/16/20 18:00 IMPRESSION: Normal x-ray examination of the chest. Electronically Signed: Rah Gordillo, at 18:53 EST Tel , Service support , 09/16/20 18:00 Chest 1 View (Portable) [RAD] Stat 09/16/20 17:55 Mucosa - Nose SARS-CoV-2 Antigen (Rapid) - Final Laboratory Results 09/16/20 09/16/20 17:55 17:55 WBC 6.8 RBC 4.69 Hgb 13.5 Hct 40.9 MCV 87.2 MCH 28.8 MCHC 33.0 RDW Std Deviation 40.7 RDW Coeff of Vicente 13.0 Plt Count 249 MPV 10.5 Immature Gran % (Auto) 0.400 Neut % (Auto) 70.1 H Lymph % (Auto) 17.0 L [place] % (Auto) 10.1 H Eos % (Auto) 1.5 Baso % (Auto) 0.9 Absolute Neuts (auto) 4.8 Absolute Lymphs (auto) 1.16 Nucleated RBC % 0 Sodium 134 L Potassium 4.3 Chloride 98 Carbon Dioxide 31.0 Anion Gap 5 BUN 18 Creatinine 0.94 Estim Creat Clear Calc 83.05 Est GFR (MDRD) Af Amer 104 Est GFR (MDRD) Non-Af 86 BUN/Creatinine Ratio 19.1 Glucose 152 H Calcium 9.3 - Medical Decision Making Patient refused EKG. Portable chest x-ray is unremarkable. Covid test is negative him blood work is unremarkable. His blood sugar is currently 152. Patient is concerned that his blood sugars dropping in the morning after he takes his medications and then climbs in the afternoon. We will write him a prescription for testing supplies for his diabetes as he does not currently have this. He has been on doxycycline for several days and does not feel his breathing is getting better. He wishes to try different antibiotic and will be prescribed Zithromax. He will also be given prednisone for a few days to help with his wheezing. ED Disposition - Plan for ED Patient: Disposition: Home or Assisted Living Diagnosis: COPD exacerbation Instructions: ED COPD Flare Prescriptions: Prednisone [Deltasone] 40 mg PO DAILY #10 tab Transmission Status: Pending to [facility] [id number] Blood-Glucose Meter [Glucocard 01] 1 [facility] BID #1 kit Transmission Status: Pending to [facility] [id number] [place], Insulin Disposable [Novofine Autocover 30G Needle] 1 Service Seeking. UD #1 box Transmission Status: Pending to [facility] [employer] Blood Sugar Diagnostic [Test Strips] 1 [facility] BID #100 strip Transmission Status: Pending to [facility] [id number] Azithromycin [Zithromax] 250 mg PO DAILY #4 tab Transmission Status: Pending to [facility] [id number] Referrals: Dhara Taylor DO [Primary Care Provider] - 1 Week
[2020-09-16] MEDS: Ipratropium/Albuterol Sulfate 3 ML AMPUL.NEB INHALATION (17:44)
[2020-09-16 17:45] VITALS: PULSE 104; RESP 18
--- NOTE | 2020-09-16 18:00 | RAD_ITS ---
STUDY: X-RAY CHEST REASON FOR EXAM: Male, 64 years old. SOB, WEAKNESS, N/V X 5-6 DAYS TECHNIQUE: Frontal view of the chest COMPARISON: 21 July 2020 FINDINGS: The lungs are clear and expanded. There is no demonstrated pleural abnormality. Normal size heart. Normal mediastinum and jose. Normal visualized pulmonary arteries. Normal visualized aortic arch and descending thoracic aorta. Normal visualized thoracic spine. Normal visualized ribs, clavicles, and shoulders. There is no demonstrated abnormality of the visualized soft tissue structures of the upper abdomen. RAD/Chest 1 View (Portable) IMPRESSION: Normal x-ray examination of the chest. Electronically Signed: Rah Gordillo, at 18:53 EST Tel , Service support ,
[2020-09-16 18:09] LABS: Absolute Lymphocyte Count 1.16 X10^3/uL (0.83-4.51); Absolute Neutrophil Count 4.8 X10^3/uL (2.0-7.7); Basophil# 0.06 X10^3/uL; Basophil% 0.9 % (0-1); Eosinophils% 1.5 % (0-5); Hematocrit 40.9 % (40-54); Hemoglobin 13.5 g/dL (13.0-16.5); Lymphocyte # 1.16 X10^3/ul (4.0); Mean Corpuscular Hgb 28.8 pg (27.0-32.0); Mean Corpuscular Volume 87.2 fL (80-94); Mean Platelet Vol. 10.5 fl (6.2-12.0); Monocyte# 0.69 X10^3/uL; Monocyte% 10.1 % (0-10); NRBC Flagged by Analyzer 0 % (0-5); Neutrophil # 4.77 X10^3/uL (2.7-7.7); Neutrophil % 70.1 % (47-70); Platelet Count 249 K/mm3 (150-450); RBC Distribution Width SD 40.7 fl (35.1-43.9); Red Blood Count 4.69 M/mm3 (4.6-6.2); White Blood Count 6.8 K/mm3 (4.4-11.0)
[2020-09-16 18:25] LABS: Anion Gap 5 (5-15); BUN 18 mg/dL (7-18); BUN/Creat Ratio 19.1 RATIO (10-20); Calcium,Total 9.3 mg/dL (8.5-10.1); Chloride 98 mmol/L (98-107); Creatinine, Serum 0.94 mg/dL (0.70-1.30); EST Glomerular Filtration Rate 86 mL/min (>60); Est Glom Filt Rate - Afr Amer 104 mL/min (>60); Estimated Creatinine Clearance 83.05 ml/min; Glucose 152 mg/dL (74-106); Potassium 4.3 mmol/L (3.5-5.1); Sodium Level 134 mmol/L (136-145)
[2020-09-16 19:29] VITALS: BP 158/94; PULSE 105; RESP 19; O2SAT 94
[2020-09-16 19:58] VITALS: BP 148/83; PULSE 99; RESP 23; O2SAT 93
[2020-09-16] MEDS: Azithromycin 250 MG Tablet 500 MG PO (19:59)
[2020-09-16] MEDS: predniSONE 20 MG Tablet 60 MG PO (19:59)
== END 2020-09-16 20:04 | disposition home or self-care (01) ==
PROVIDERS: Emergency Provider Emergency Medicine; PCP Internal Medicine
DX: J44.1 Chronic obstructive pulmonary disease with (acute) exacerbation (principal); E11.9 Type 2 diabetes mellitus without complications; Z86.73 Personal history of transient ischemic attack (TIA), and cerebral infarction without residual deficits; Z79.84 Long term (current) use of oral hypoglycemic drugs; Z79.51 Long term (current) use of inhaled steroids
CPT/HCPCS: 71045; 80048; 85025; 87426; 94640; 99285

== ENCOUNTER → 2021-01-19 11:28 | Outpatient (CLI) | payer MEDICARE, MEDICAID, SELFPAY ==
[2021-01-19 11:47] LABS: Bacteria 0 SEEN /hpf (None Seen); Mucous, Urine 0 SEEN /hpf (<or=2+); Red Blood Cells-Urine 0 SEEN /hpf (0-5); Squamous Epithelial Cells - UA 0 SEEN /hpf (0-5); White Blood Cells 0 SEEN /hpf (0-5)
[2021-01-19 12:23] LABS: Absolute Lymphocyte Count 1.56 X10^3/uL (0.83-4.51); Absolute Neutrophil Count 5.2 X10^3/uL (2.0-7.7); Basophil# 0.07 X10^3/uL; Basophil% 0.9 % (0-1); Eosinophil# 0.14 X10^3/uL; Eosinophils% 1.8 % (0-5); Hematocrit 42.8 % (40-54); Hemoglobin 13.5 g/dL (13.0-16.5); Lymphocyte # 1.56 X10^3/ul (0.83-4.51); Mean Corp Hgb Conc 31.5 g/dL (32-36); Mean Corpuscular Hgb 27.8 pg (27.0-32.0); Mean Corpuscular Volume 88.2 fL (80-94); Mean Platelet Vol. 10.6 fl (6.2-12.0); Monocyte% 10.3 % (0-10); NRBC Flagged by Analyzer 0 % (0-5); Neutrophil # 5.21 X10^3/uL (2.7-7.7); Neutrophil % 66.7 % (47-70); Platelet Count 248 K/mm3 (150-450); RBC Distribution Width CV 13.6 % (11.6-14.6); RBC Distribution Width SD 43.8 fl (35.1-43.9); Red Blood Count 4.85 M/mm3 (4.6-6.2); White Blood Count 7.8 K/mm3 (4.4-11.0)
[2021-01-19 13:00] LABS: ALB/GLOB Ratio 1.2 RATIO (0.9-2.4); AST(SGOT) 15 U/L (15-37); Alanine Aminotransfer ALT/SGPT 15 U/L (16-61); Albumin, Serum 3.7 g/dL (3.2-5.0); Alkaline Phosphatase 98 U/L (45-117); Anion Gap 3 (5-15); BUN 16 mg/dL (7-18); BUN/Creat Ratio 16.4 RATIO (10-20); Calcium,Total 9.1 mg/dL (8.5-10.1); Chloride 100 mmol/L (98-107); Cholesterol 138 mg/dL (200); Creatinine, Serum 0.98 mg/dL (0.70-1.30); EST Glomerular Filtration Rate 82 mL/min (>60); Est Glom Filt Rate - Afr Amer 100 mL/min (>60); Globulin 3.2 g/dL (2.2-4.2); Glucose 104 mg/dL (74-106); High Density Lipoprotein 46 mg/dL; Potassium 4.4 mmol/L (3.5-5.1); Protein, Total 6.9 g/dL (6.4-8.2); Sodium Level 135 mmol/L (136-145); Triglycerides 134 mg/dL; Very Low Density Lipoprotein 27 mg/dL (5-40)
[2021-01-19 22:28] LABS: Color, Urine Yellow (Yellow); Glucose, Dipstick Normal (Normal); Ketone-Dipstick 5 mg/dl (Negative); Leukocyte Esterase-Dipstick Negative /ul (Negative); Nitrite-Dipstick Negative (Negative); Occult Blood-Urine Negative /ul (Negative); Protein-Dipstick 15 mg/dl (Negative); Urine Bilirubin Dipstick Negative (Negative); Urine Clarity Clear (Clear); Urine Urobilinogen Normal (Normal)
== END ==
PROVIDERS: PCP Internal Medicine; Referring Provider Internal Medicine; Visit Provider Internal Medicine
DX: E11.9 Type 2 diabetes mellitus without complications (principal)
CPT/HCPCS: 36415; 80053; 80061; 81001; 82043; 82570; 84443; 85025

== ENCOUNTER → 2021-01-24 08:47 | Outpatient (CLI) | payer MEDICARE, MEDICAID, SELFPAY ==
[2021-01-24 09:06] LABS: Platelet Count 223 K/mm3 (150-450)
[2021-01-24 09:41] LABS: Valproic Acid (Depakene) Level 40 ug/mL (50-100)
[2021-01-24 09:43] LABS: AST(SGOT) 12 U/L (15-37); Alanine Aminotransfer ALT/SGPT 15 U/L (16-61); Prolactin 25.1 ng/mL
== END ==
PROVIDERS: PCP Internal Medicine; Referring Provider Psychiatry & Neurology Psychiatry; Visit Provider Psychiatry & Neurology Psychiatry
DX: Z79.899 Other long term (current) drug therapy (principal)
CPT/HCPCS: 36415; 80164; 82140; 84146; 84450; 84460; 85049

== ENCOUNTER 2021-04-09 13:01 | Emergency (ER) | payer MEDICARE, MEDICAID, SELFPAY ==
[2021-04-09 13:03] VITALS: BP 131/68; PULSE 115; RESP 22; TEMP 36.4; O2SAT 90; BMI 29.6
--- NOTE | 2021-04-09 13:35 | EDS_ITS ---
HPI History of Present Illness Chief Complaint: Shortness of Breath Informant: patient Narrative Narrative: Patient is a 65-year-old male with a past medical history of diabetes, COPD who currently still smokes, schizophrenia who presents to the emerge department for shortness of breath and cough. He states that his shortness of breath has been present for the past year. His cough has been present over the past couple months. He has been bringing up sputum with this. He states that his PCP did do a sputum culture and it came back negative. He denies any fevers or chills. He has been vaccinated for Covid. He denies any chest pain associated with this. He does have chronic leg swelling which he wear stockings for. This is no worse than normal. No history of DVT/PE. Patient thinks that he has bacteria that grows on black mold. States that the e vents of never been cleaned in his [id number] currently. Patient wants me to attempt to get a hold of the smoking cessation hotline for him as he has been playing phone tag with them. PFSH PFSH Medical History Anxiety COPD (chronic obstructive pulmonary disease) Depression Smoker Home Medications albuterol sulfate [Ventolin Hfa (SP)] 2 puff INHALATION Q4H PRN PRN 03/03/19 [History Last Taken Unknown] aspirin 325 mg PO DAILY@0800 03/03/19 [History Last Taken Unknown] divalproex 500 mg PO BID 03/03/19 [History Last Taken Unknown] fluticasone propion-salmeterol [Advair 250-50 Diskus] 1 ea IH BID 03/03/19 [History Last Taken Unknown] metformin 500 mg PO BID 03/03/19 [History Last Taken Unknown] omeprazole 20 mg PO DAILY 03/03/19 [History Last Taken Unknown] amlodipine 5 mg PO DAILY 11/07/19 [History Last Taken Unknown] levothyroxine 25 mcg PO DAILY 11/07/19 [History Last Taken Unknown] olanzapine 10 mg PO QHS 11/07/19 [History Last Taken Unknown] paliperidone 6 mg PO BID 11/07/19 [History Last Taken Unknown] doxycycline monohydrate 100 mg PO BID #10 cap 07/22/20 [Rx Last Taken Unknown] fluticasone propion-salmeterol 1 ea IH BID PRN PRN #1 blst.w.dev 07/22/20 [Rx Last Taken Unknown] azithromycin 250 mg PO DAILY #4 tab 09/16/20 [Rx Last Taken Unknown] blood sugar diagnostic #100 strip 09/16/20 [Rx Last Taken Unknown] blood-glucose meter #1 kit 09/16/20 [Rx Last Taken Unknown] pen needle, diabetic, safety #1 box 09/16/20 [Rx Last Taken Unknown] prednisone 40 mg PO DAILY #10 tab 09/16/20 [Rx Last Taken Unknown] prednisone 40 mg PO DAILY 5 Days #10 tab 04/09/21 [Rx Last Taken Unknown] Allergy/AdvReac Type Severity Reaction Status Date / Time sulfamethoxazole Allergy Mild Unknown Verified 04/09/21 13:03 trimethoprim Allergy Mild Unknown Verified 04/09/21 13:03 Penicillins [PCN] Allergy Unknown Verified 04/09/21 13:03 Social History Smoking Status: Current every day smoker tobacco type: cigarettes ROS ROS ED Constitutional Constitutional ED: Denies chills or fever(s) Eyes Eyes: Denies change in vision ENT ENT ED: Denies epistaxis or rhinorrhea Cardiovascular Cardiovascular: Denies chest pain or palpitations Respiratory/Chest Respiratory/Chest: Reports cough, dyspnea and sputum Gastrointestinal Gastrointestinal: Denies abdominal pain, diarrhea, nausea or vomiting Genitourinary Genitourinary ED: Denies dysuria, hematuria or urinary frequency Musculoskeletal Musculoskeletal: Denies back pain or neck pain Integumentary Denies rash Neurologic Neurologic: Denies dizziness, headache(s) or weakness EXAM Physical Exam Const Vital Signs: 04/09/21 13:03 04/09/21 13:39 Temperature 97.5 F L Temperature Source Temporal Pulse Rate 115 H Respiratory Rate 22 H Respiratory Effort Normal Respiratory Depth Normal Respiratory Pattern Normal Blood Pressure 131/68 H Blood Pressure Mean 89 Pulse Ox 90 Oxygen Delivery Method Room Air Room Air Positive well nourished and well developed General Appearance ED: well developed and NAD HEENT Reports normocephalic, head/scalp atraumatic and moist mucous membranes Eyes PERRL and EOMs intact bilaterally Neck no lymphadenopathy and supple General: Negative for tenderness Chest Wall inspection of chest normal Resp normal respiratory effort and clear to auscultation bilaterally Resp Narrative: Speaks in full sentences. No increased effort on respirations. Has mild expiratory wheezing. Auscultation: Negative for rales or rhonchi Cardio regular rate, regular rhythm and no murmurs GI normal to inspection, nondistended, normoactive bowel sounds and non-tender Palpation: soft; Negative for guarding or rebound tenderness present Back/Spine no CVA tenderness Extremity normal to inspection General Extremety ED: Negative for edema or tenderness General Extremity: Negative for edema Neuro CN's II-XII intact bilaterally and no sensory deficits noted Sensorium / Orientation: alert Motor Exam: strength 5/5 throughout Skin no rashes or lesions noted MDM MDM MDM Narrative Medical decision making narrative: Patient presents to the ED for shortness of breath and cough with sputum production. Patient does have sputum with him at bedside. This is yellow in color. On arrival to the emergency department satting 90% on room air. He was mildly tachycardic on command but on my assessment his heart rate has returned to normal. I talked to patient about my plan to work him up but he really only wanted a sputum culture performed. He is actually already had this done with his PCP. Patient's issues appear to be chronic and do not seem to be worsening. He is frustrated because he cannot get all the smoking cessation hotline and he will does want to stop smoking. He finally was agreeable to his getting a chest x-ray. He does have some wheezing on exam and will put in a DuoNeb breathing treatment form to see if this helps with his oxygen saturation. After breathing treatment patient feeling better. X-ray did not reveal any evidence of pneumonia. I discussed COPD exacerbation with him but he does not want to be placed on antibiotic. He is agreeable to going on a short course of prednisone. He otherwise is in no acute distress. Will discharge home in stable condition. He is to follow-up with his PCP. Return precautions are reviewed. He understands and is agreeable this plan. All questions answered. Clinical impression: #1 COPD exacerbation #2 productive cough Discharge Plan Triage Chief Complaint: Shortness of Breath ED Provider: Samuel Gutierrez Dx/Rx/DC Orders Instructions: ED COPD Flare Prescriptions: New prednisone 20 mg tablet 40 mg PO DAILY 5 Days Qty: 10 RF: 0 No Action metformin 500 MG tablet 500 mg PO BID RF: 0 fluticasone propion-salmeterol [Advair Diskus] 1 EACH blister with device 1 ea IH BID RF: 0 aspirin 325 MG tablet 325 mg PO DAILY@0800 RF: 0 albuterol sulfate [Ventolin HFA] 1 INHALER inhaler 2 puff inhalation Q4H PRN PRN (Reason: Sob &/Or Wheezing) RF: 0 divalproex 250 MG tablet 500 mg PO BID RF: 0 omeprazole 20 MG tablet,delayed release (DR/EC) 20 mg PO DAILY RF: 0 olanzapine 10 MG tablet 10 mg PO QHS RF: 0 amlodipine 5 MG tablet 5 mg PO DAILY RF: 0 levothyroxine 25 MCG tablet 25 mcg PO DAILY RF: 0 paliperidone 6 MG tablet extended release 24hr 6 mg PO BID RF: 0 doxycycline monohydrate 100 MG capsule 100 mg PO BID Qty: 10 RF: 0 fluticasone propion-salmeterol 1 EACH blister with device 1 ea IH BID PRN PRN (Reason: Dyspnea) Qty: 1 RF: 0 azithromycin 250 MG tablet 250 mg PO DAILY Qty: 4 RF: 0 prednisone 20 MG tablet 40 mg PO DAILY Qty: 10 RF: 0 (DME) blood sugar diagnostic 1 EACH strip 1 ea MC BID Qty: 100 RF: 0 (DME) pen needle, diabetic, safety 1 EACH needle 1 ea MISCELL. UD Qty: 1 RF: 0 (DME) blood-glucose meter 1 EACH kit 1 ea MC BID Qty: 1 RF: 0 Primary Care Provider: Dhara Taylor Referrals: Dhara Taylor DO [Primary Care Provider] - 3-5 Days if not improving Disposition Disposition: Home, Self Care Discharge Date/Time: 04/09/21 15:41
--- NOTE | 2021-04-09 13:40 | RAD_ITS ---
STUDY: X-RAY CHEST REASON FOR EXAM: Male, 65 years old. SOB, cough, chronic TECHNIQUE: Single frontal view of the chest. COMPARISON: 01/26/2021 FINDINGS: The lungs remain hyperinflated. There is no new focal consolidation. Normal size heart. Normal mediastinum and jose. Normal visualized pulmonary arteries. Normal visualized aortic arch and descending thoracic aorta. Normal visualized thoracic spine. Normal visualized ribs, clavicles, and shoulders. There is no demonstrated abnormality of the visualized soft tissue structures of the upper abdomen. RAD/Chest 1 View (Portable) IMPRESSION: No acute cardiopulmonary process. Electronically Signed: Akiko Peralta MD at 14:46 EDT Tel , Service support ,
[2021-04-09 15:36] VITALS: BP 131/85; PULSE 101; RESP 16; O2SAT 96
== END 2021-04-09 15:41 | disposition home or self-care (01) ==
PROVIDERS: Emergency Provider Emergency Medicine; PCP Internal Medicine
DX: J44.1 Chronic obstructive pulmonary disease with (acute) exacerbation (principal); E11.9 Type 2 diabetes mellitus without complications; F17.210 Nicotine dependence, cigarettes, uncomplicated; Z79.84 Long term (current) use of oral hypoglycemic drugs; Z79.51 Long term (current) use of inhaled steroids
CPT/HCPCS: 71045; 99282

== ENCOUNTER 2021-04-14 21:47 | Emergency (ER) | payer MEDICARE, MEDICAID, SELFPAY ==
[2021-04-14 21:52] VITALS: BP 157/88; PULSE 107; RESP 16; TEMP 36.9; O2SAT 99; BMI 29.8
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
[2021-04-14 22:45] VITALS: RESP 16
[2021-04-14 22:45] LABS: Absolute Lymphocyte Count 1.05 X10^3/uL (0.83-4.51); Absolute Neutrophil Count 8.5 X10^3/uL (2.0-7.7); Basophil# 0.06 X10^3/uL; Basophil% 0.6 % (0-1); Eosinophil# 0.11 X10^3/uL; Hematocrit 39.3 % (40-54); Hemoglobin 13.2 g/dL (13.0-16.5); Lymphocyte # 1.05 X10^3/ul (0.83-4.51); Mean Corp Hgb Conc 33.6 g/dL (32-36); Mean Corpuscular Hgb 28.9 pg (27.0-32.0); Mean Platelet Vol. 10.3 fl (6.2-12.0); Monocyte# 0.66 X10^3/uL; Monocyte% 6.3 % (0-10); NRBC Flagged by Analyzer 0 % (0-5); Neutrophil # 8.52 X10^3/uL (2.7-7.7); Neutrophil % 81.1 % (47-70); Platelet Count 238 K/mm3 (150-450); RBC Distribution Width CV 13.7 % (11.6-14.6); RBC Distribution Width SD 42.7 fl (35.1-43.9); Red Blood Count 4.57 M/mm3 (4.6-6.2); White Blood Count 10.5 K/mm3 (4.4-11.0)
[2021-04-14 22:47] LABS: Bacteria 0 SEEN /hpf (None Seen); Mucous, Urine 0 SEEN /hpf (<or=2+); Red Blood Cells-Urine 0 SEEN /hpf (0-5); Squamous Epithelial Cells - UA 0 SEEN /hpf (0-5); White Blood Cells 0 SEEN /hpf (0-5)
[2021-04-14 22:57] LABS: Color, Urine Yellow (Yellow); Glucose, Dipstick Normal (Normal); Ketone-Dipstick Negative (Negative); Leukocyte Esterase-Dipstick Negative /ul (Negative); Nitrite-Dipstick Negative (Negative); Occult Blood-Urine Negative /ul (Negative); Protein-Dipstick Negative (Negative); Specific Gravity, Urine 1.005 (1.002-1.030); Urine Bilirubin Dipstick Negative (Negative); Urine Clarity Clear (Clear); Urine Urobilinogen Normal (Normal)
[2021-04-14 23:01] LABS: Anion Gap 8 (5-15); BUN 20 mg/dL (7-18); BUN/Creat Ratio 17.7 RATIO (10-20); Calcium,Total 9.2 mg/dL (8.5-10.1); Chloride 93 mmol/L (98-107); Creatinine, Serum 1.13 mg/dL (0.70-1.30); EST Glomerular Filtration Rate 69 mL/min (>60); Est Glom Filt Rate - Afr Amer 84 mL/min (>60); Estimated Creatinine Clearance 68.19 ml/min; Glucose 183 mg/dL (74-106); Potassium 4.3 mmol/L (3.5-5.1); Sodium Level 130 mmol/L (136-145)
[2021-04-14 23:04] LABS: Amphetamine Urine VISTA NEGATIVE (<1000 ng/mL); Barbiturate Urine VISTA NEGATIVE (< 200 ng/mL); Benzodiazepine Urine VISTA NEGATIVE (< 200 ng/mL); Cocaine Urine VISTA NEGATIVE (< 300 ng/mL); Ecstacy Urine VISTA NEGATIVE (< 500 ng/mL); Methadone Urine VISTA NEGATIVE (< 300 ng/mL); PCP Urine VISTA NEGATIVE (< 25 ng/mL); THC Urine VISTA NEGATIVE (< 50 ng/mL); Vista UDS pH Range 6
[2021-04-14 23:12] LABS: Alcohol, Blood (Medical)-Serum < 3.0 mg/dL
[2021-04-14 23:30] VITALS: RESP 16
[2021-04-15] VITALS (12 sets, daily range): BP systolic 123–165; BP diastolic 70–87; PULSE 84–100; RESP 15–16; TEMP 36.9; O2SAT 95–98
--- NOTE | 2021-04-15 00:05 | NURSING ---
CALLED [facility]ISIS AT 0004
--- NOTE | 2021-04-15 06:25 | ED.RN ---
PATIENT PENDING PLACEMENT AT [facility] AT THIS TIME
[2021-04-15] MEDS: Levothyroxine 25 MCG TABLET PO (07:16)
[2021-04-15 07:20] LABS: Bedside Glucose 131 mg/dL (70-110)
--- NOTE | 2021-04-15 07:42 | ED.RN ---
[facility] CALLED STATING THEY ARE CHECKING ON THE STATUS OF PLACEMENT
[2021-04-15] MEDS: Pioglitazone Hydrochloride 15 MG Tablet PO (08:51)
[2021-04-15] MEDS: Divalproex Sodium 250 MG Tablet 500 MG PO (08:51)
[2021-04-15] MEDS: metFORMIN HCl 850 MG Tablet PO ×2 (08:51→11:53)
[2021-04-15] MEDS: Aspirin 325 MG Tablet PO (08:54)
[2021-04-15] MEDS: Loratadine 10 MG Tablet PO (10:03)
[2021-04-15] MEDS: RisperiDONE 1 MG Tablet 2 MG PO (10:04)
[2021-04-15] MEDS: LINAGLIPTIN 5 MG TABLET PO (10:04)
[2021-04-15] MEDS: amLODIPine 5 MG Tablet PO (10:05)
[2021-04-15] MEDS: Pantoprazole Sodium 20 MG Tablet PO (10:06)
--- NOTE | 2021-04-15 10:07 | CM.ED ---
SOCIAL WORK Call from [facility] with Crisis. Per [facility], [facility] does not have bed for patient. Attempted referral to [facility] who reports system is down. [facility] states will attempt placement at [facility] or [facility] at this time. Patti Levine, FOOD SERVICE ATTENDANT, LEATHER CLEANER
[2021-04-15 11:35] LABS: Bedside Glucose 151 mg/dL (70-110)
--- NOTE | 2021-04-15 11:58 | EKG12_ITS ---
Test Reason : MEDICAL CLEARANCE Blood Pressure : / mmHG Vent. Rate : 092 BPM Atrial Rate : 092 BPM P-R Int : 174 ms QRS Dur : 086 ms QT Int : 336 ms P-R-T Axes : 080 064 075 degrees QTc Int : 415 ms Normal sinus rhythm Normal ECG Confirmed by PRAMOD ALSTON, BRENDA ([id number]), slot editor FIDEL LA ([id number]) on 04/19/2021 8:56:21 AM Referred By: REYNALDO Confirmed By:BRENDA BENAVIDEZ MD
--- NOTE | 2021-04-15 12:39 | ED.RN ---
FAXED EKG, COVID RESULTS AND PINK SLIP TO [facility]
--- NOTE | 2021-04-15 13:50 | CM.ED ---
SOCIAL WORK Informed by Crisis, patient has been accepted to [facility]. Staff aware. [facility] sending transportation. Patti Levine, TITLE VEHICLE SERVICE ATTENDANT, DECISION SCIENCE ANALYST
--- NOTE | 2021-04-15 14:51 | CCN.REFER ---
Called number provided for report and prompted to leave a message. Message left that squad would be arriving to transport pt at 1530. Unable to reach a person.
== END 2021-04-15 15:48 ==
PROVIDERS: Emergency Provider Emergency Medicine; PCP Internal Medicine
DX: F20.9 Schizophrenia, unspecified (principal); J44.9 Chronic obstructive pulmonary disease, unspecified; F32.9 Major depressive disorder, single episode, unspecified; E11.9 Type 2 diabetes mellitus without complications; F17.210 Nicotine dependence, cigarettes, uncomplicated; Z79.51 Long term (current) use of inhaled steroids; Z79.899 Other long term (current) drug therapy
CPT/HCPCS: 36415; 80048; 80307; 81001; 82077; 82962; 85025; 87426; 93005; 99285

== ENCOUNTER 2021-05-25 01:41 | Emergency (ER) | payer MEDICARE, MEDICAID, SELFPAY ==
[2021-05-25] VITALS (11 sets, daily range): BP systolic 135–165; BP diastolic 72–84; PULSE 72–94; RESP 16–18; TEMP 37.1; O2SAT 95–100; BMI 29.4
--- NOTE | 2021-05-25 01:52 | CT_ITS ---
HISTORY: altered mental status EXAMINATION: CT Head or Brain W/O Contrast Injection TECHNIQUE: Multiple axial images were obtained of the brain without intravenous contrast. A radiation dose optimization technique was used for this scan. IV Contrast dosage and agent: None. COMPARISON: None FINDINGS: BRAIN PARENCHYMA: No intra- or extra-axial hemorrhage. No evidence of acute major territorial infarct. No intracranial mass or mass effect. There is mild hypoattenuation of the deep cerebral white matter. Chronic involutional changes are noted. CSF SPACES: Prominent cerebral sulci secondary to involutional changes. No hydrocephalus. Basal cisterns are patent. CALVARIUM, SKULL BASE, PARANASAL SINUSES AND MASTOID AIR CELLS: Intact calvarium. Small left maxillary sinus mucosal retention cysts. Mastoid air cells are well pneumatized. ORBITS: No acute findings. ASPECTS Score for Acute Strokes: NA CT/Brain/Head without Contrast IMPRESSION: Chronic involutional and white matter changes. No acute intracranial process. Individualized dose optimization techniques were used for this CT. at 0306 Reported and signed by: Marino Gonzalez MD Electronically Signed: Marino Gonzalez MD at 3:05 EDT Tel , Service support ,
[2021-05-25 02:39] LABS: Absolute Lymphocyte Count 0.54 X10^3/uL (0.83-4.51); Absolute Neutrophil Count 9.4 X10^3/uL (2.0-7.7); Basophil# 0.04 X10^3/uL; Basophil% 0.4 % (0-1); Eosinophil# 0.03 X10^3/uL; Eosinophils% 0.3 % (0-5); Hematocrit 33.5 % (40-54); Lymphocyte # 0.54 X10^3/ul (0.83-4.51); Lymphocyte % 5.1 % (19-41); Mean Corp Hgb Conc 35.8 g/dL (32-36); Mean Corpuscular Hgb 28.6 pg (27.0-32.0); Mean Corpuscular Volume 79.8 fL (80-94); Mean Platelet Vol. 10.3 fl (6.2-12.0); Monocyte# 0.43 X10^3/uL; Monocyte% 4.1 % (0-10); NRBC Flagged by Analyzer 0 % (0-5); Neutrophil # 9.41 X10^3/uL (2.7-7.7); Neutrophil % 89.3 % (47-70); POSITIVE COUNT YES; POSITIVE DIFFERENTIAL YES; Platelet Count 251 K/mm3 (150-450); RBC Distribution Width CV 12.2 % (11.6-14.6); RBC Distribution Width SD 35.2 fl (35.1-43.9); White Blood Count 10.5 K/mm3 (4.4-11.0)
[2021-05-25 02:43] LABS: Differential Indicated SCAN CRITERIA MET
[2021-05-25 02:52] LABS: Anion Gap 9 (5-15); BUN 19 mg/dL (7-18); BUN/Creat Ratio 20.3 RATIO (10-20); Calcium,Total 8.6 mg/dL (8.5-10.1); Chloride 85 mmol/L (98-107); Creatinine, Serum 0.94 mg/dL (0.70-1.30); EST Glomerular Filtration Rate 86 mL/min (>60); Est Glom Filt Rate - Afr Amer 104 mL/min (>60); Estimated Creatinine Clearance 81.97 ml/min; Glucose 114 mg/dL (74-106); Potassium 4.2 mmol/L (3.5-5.1); Sodium Level 120 mmol/L (136-145)
--- NOTE | 2021-05-25 03:00 | RAD_ITS ---
HISTORY: Altered mental status EXAMINATION/TECHNIQUE: XR Chest 1 View COMPARISON: Two-view chest x-ray from 01/26/21 FINDINGS: LINES/DEVICES: None. LUNGS: Hyperexpanded lungs again noted. No pulmonary edema. No focal airspace consolidation. No sizable pleural effusion. No pneumothorax detected. MEDIASTINUM AND CARDIOVASCULAR STRUCTURES: Heart normal size. Atherosclerotic calcifications along the aorta. BONES AND SOFT TISSUES: Skeletal degenerative changes. Chronic right rib fractures. RAD/Chest 1 View (Portable) IMPRESSION: COPD and atherosclerotic disease. at 0345 Reported and signed by: Marino Gonzalez MD Electronically Signed: Marino Gonzalez MD at 3:44 EDT Tel , Service support ,
--- NOTE | 2021-05-25 03:00 | RAD_ITS ---
HISTORY: left elbow pain EXAMINATION/TECHNIQUE: XR Elbow Min 3 Views: Left COMPARISON: None FINDINGS: SOFT TISSUES: No significant soft tissue swelling or pathologic joint effusion. No radiopaque foreign body identified. BONES/JOINTS: No acute fracture or subluxation. Normal alignment. Preservation of the joint spaces. Enthesophyte along the posterior olecranon process. RAD/Elbow min 3 Views IMPRESSION: Spurring left olecranon process. at 0346 Reported and signed by: Marino Gonzalez MD Electronically Signed: Marino Gonzalez MD at 3:45 EDT Tel , Service support ,
[2021-05-25 03:12] LABS: Valproic Acid (Depakene) Level < 3 ug/mL (50-100)
[2021-05-25 03:36] LABS: Differential Comment SCANNED; Platelet Estimate ADEQUATE (ADEQ)
--- NOTE | 2021-05-25 03:43 | EDS_ITS ---
HPI HPI - Psych History of Present Illness Chief Complaint: Mental Health Narrative Narrative: 65-year-old male with history of schizophrenia states that he walked away from [facility] today and walked to the counseling center and was told that he they cannot help him here. He states that along the way he fell a couple of times and hurt his left elbow. He also states that he is not supposed to be able to walk to the car because one time when he was at [facility] a neurologist put a needle through his leg and he did not feel it so he did not believe he could walk. Patient feels that he is somebody is poisoning him at the nursing home. Patient also states that he does not like his Depakote because he feels like it is toxic for him. He does deny head injury. PFSH PFSH Medical History Anxiety COPD (chronic obstructive pulmonary disease) Depression Diabetes Schizophrenia Smoker Home Medications albuterol sulfate [Ventolin Hfa (SP)] 2 puff INHALATION Q4H PRN PRN 03/03/19 [History Last Taken Unknown] aspirin 325 mg PO DAILY@0800 03/03/19 [History Last Taken Unknown] metformin 850 mg PO BID 03/03/19 [History Last Taken Unknown] omeprazole 20 mg PO DAILY 03/03/19 [History Last Taken Unknown] amlodipine 5 mg PO DAILY 11/07/19 [History Last Taken Unknown] levothyroxine 25 mcg PO DAILY 11/07/19 [History Last Taken Unknown] fluticasone propion-salmeterol 1 ea IH BID PRN PRN #1 blst.w.dev 07/22/20 [Rx Last Taken Unknown] blood sugar diagnostic #100 strip 09/16/20 [Rx Last Taken Unknown] blood-glucose meter #1 kit 09/16/20 [Rx Last Taken Unknown] pen needle, diabetic, safety #1 box 09/16/20 [Rx Last Taken Unknown] fexofenadine 180 mg PO DAILY 04/14/21 [History Last Taken Unknown] pioglitazone 15 mg PO DAILY 04/14/21 [History Last Taken Unknown] sitagliptin [Januvia] 100 mg PO DAILY 04/14/21 [History Last Taken Unknown] benztropine 1 mg PO DAILY 05/25/21 [History Last Taken Unknown] oxcarbazepine 600 mg PO BID 05/25/21 [History Last Taken Unknown] ziprasidone HCl [Geodon] 60 mg PO BID 05/25/21 [History Last Taken Unknown] Allergy/AdvReac Type Severity Reaction Status Date / Time sulfamethoxazole Allergy Mild Unknown Verified 04/14/21 21:49 trimethoprim Allergy Mild Unknown Verified 04/14/21 21:49 Penicillins [PCN] Allergy Unknown Verified 04/14/21 21:49 Social History Smoking Status: Current every day smoker tobacco type: cigarettes ROS ROS ED Constitutional Constitutional ED: Denies chills or fever(s) Eyes Eyes: Denies blurry vision or diplopia ENT ENT ED: Denies rhinorrhea or sore throat Cardiovascular Cardiovascular: Denies chest pain or palpitations Respiratory/Chest Respiratory/Chest: Denies cough or dyspnea Gastrointestinal Gastrointestinal: Denies abdominal pain, nausea or vomiting Genitourinary Genitourinary ED: Denies dysuria or hematuria Musculoskeletal Musculoskeletal: Reports other Details: Left elbow pain ; Denies myalgias Integumentary Reports other Details: Abrasion to left elbow Neurologic Neurologic: Denies headache(s) or paresthesias Psychiatric Psychiatric: Denies anxiety or depression EXAM Physical Exam Const Vital Signs: 05/25/21 01:46 05/25/21 03:52 05/25/21 06:11 Temperature 98.7 F Temperature Source Temporal Pulse Rate 94 78 Respiratory Rate 16 16 16 Blood Pressure 143/78 H 135/80 H Blood Pressure Mean 99 98 Pulse Ox 100 Oxygen Delivery Method Room Air Positive well nourished General Appearance ED: NAD; Negative for pallor HEENT normocephalic and atraumatic Eyes PERRL and EOMs intact bilaterally Neck no lymphadenopathy and supple Resp normal respiratory effort and clear to auscultation bilaterally Cardio Rate: regular rate Rhythm: regular rhythm GI non-tender and non-distended Palpation: soft Extremity Extremity Narrative: Tenderness to the left olecranon. Patient has full range motion in flexion and extension. There is a superficial abrasion overlying the left elbow. No deformities noted. Neuro CN's II-XII intact bilaterally and no sensory deficits noted Sensorium / Orientation: alert Motor Exam: strength 5/5 throughout Psych cooperative, activity/motor behavior normal, denies hallucinations, denies homicidal ideation and denies suicidal ideation Attitude: calm and engaged Activity / Motor Behavior: appropriate eye contact Attention / Concentration: attention grossly intact Memory / Cognition: memory grossly intact Skin Skin Narrative: Abrasion to left elbow General Skin Exam: Negative for jaundice or pallor Trauma: abrasion; Negative for puncture MDM MDM MDM Narrative Medical decision making narrative: Patient presents with left elbow pain and there was some concern that the patient had eloped today. Somebody did call to see if the patient was here. He appears to be calm and cooperative. He was able to give me the story of how he ended up here although I am not sure this is a true story. Patient is calm and cooperative. He appears to be ambulate about the room. He makes normal eye contact. He did state that somebody might have been poisoning him in his nursing home. He also states that he feels like the Depakote that he takes is toxic for him. His blood work is unremarkable. EtOH negative. Depakote less than 3. CT brain is negative for acute intracranial findings. Patient does not have a med list with him on trying to determine if he is still on Depakote. He states he take this as an antiepileptic as well as for bipolar disorder. Chest x-ray on my interpretation shows no acute cardiopulmonary process and the radiologist does agree. Left elbow shows some spurring but no acute fracture or subluxation on my interpretation. Radiologist does agree. Attempting to find the patient's prison and medication list at this time. I was able to determine that the patient is no longer on Depakote. This is why he is Depakote level normal. Urinalysis and urine drug screen are normal. He did get a hold of the nursing facility where he resides and it is reported that he has been a little agitated and aggressive with other people. He is following the nurses. He did elope from the campus today. Given this they felt he needed to be readmitted. The counseling center did come evaluate the patient and are working on getting him transferred. Patient is medically cleared at this time. Patient was signed out to incoming ED provider for monitoring. His home meds were started. Patient is currently awaiting placement. Impression: 1. Agitation 2. History of schizophrenia Lab Data Attestation: I reviewed the patient's lab results. Labs: Laboratory Results - last 24 hr 05/25/21 05/25/21 05/25/21 02:25 02:25 02:25 WBC 10.5 RBC 4.20 L Hgb 12.0 L Hct 33.5 L MCV 79.8 L MCH 28.6 MCHC 35.8 RDW Std Deviation 35.2 RDW Coeff of Vicente 12.2 Plt Count 251 MPV 10.3 Immature Gran % (Auto) 0.800 Neut % (Auto) 89.3 H Lymph % (Auto) 5.1 L [place] % (Auto) 4.1 Eos % (Auto) 0.3 Baso % (Auto) 0.4 Absolute Neuts (auto) 9.4 H Absolute Lymphs (auto) 0.54 L Nucleated RBC % 0 Differential Comment SCANNED Platelet Estimate ADEQUATE Sodium 120 L Potassium 4.2 Chloride 85 L Carbon Dioxide 26.0 Anion Gap 9 BUN 19 H Creatinine 0.94 Estim Creat Clear Calc 81.97 Est GFR (MDRD) Af Amer 104 Est GFR (MDRD) Non-Af 86 BUN/Creatinine Ratio 20.3 H Glucose 114 H Calcium 8.6 Urine Color Urine Clarity Urine pH Ur Specific [place] Urine Protein Urine Glucose (UA) Urine Ketones Urine Occult Blood Urine Nitrite Urine Bilirubin Urine Urobilinogen Ur Leukocyte Esterase Urine RBC Urine WBC Ur Squamous Epith Cells Urine Bacteria Urine Mucus Urine Opiates Screen Urine Methadone Screen Ur Barbiturates Screen Valproic Acid Ur Phencyclidine Scrn Ur Amphetamines Screen U Methamphetamin-MDMA U Benzodiazepines Scrn Urine Cocaine Screen U Cannabinoids Screen Ur Drug Screen Comment Ethyl Alcohol 5.0 05/25/21 05/25/21 05/25/21 02:25 03:45 03:45 WBC RBC Hgb Hct MCV MCH MCHC RDW Std Deviation RDW Coeff of Vicente Plt Count MPV Immature Gran % (Auto) Neut % (Auto) Lymph % (Auto) [place] % (Auto) Eos % (Auto) Baso % (Auto) Absolute Neuts (auto) Absolute Lymphs (auto) Nucleated RBC % Differential Comment Platelet Estimate Sodium Potassium Chloride Carbon Dioxide Anion Gap BUN Creatinine Estim Creat Clear Calc Est GFR (MDRD) Af Amer Est GFR (MDRD) Non-Af BUN/Creatinine Ratio Glucose Calcium Urine Color Yellow Urine Clarity Clear Urine pH 6.5 Ur Specific [place] 1.010 Urine Protein 100 H Urine Glucose (UA) Normal Urine Ketones Negative Urine Occult Blood 10 H Urine Nitrite Negative Urine Bilirubin Negative Urine Urobilinogen Normal Ur Leukocyte Esterase Negative Urine RBC 0-5 SEEN Urine WBC 0 SEEN Ur Squamous Epith Cells 0 SEEN Urine Bacteria 0 SEEN Urine Mucus 0 SEEN Urine Opiates Screen NEGATIVE Urine Methadone Screen NEGATIVE Ur Barbiturates Screen NEGATIVE Valproic Acid < 3 L Ur Phencyclidine Scrn NEGATIVE Ur Amphetamines Screen NEGATIVE U Methamphetamin-MDMA NEGATIVE U Benzodiazepines Scrn NEGATIVE Urine Cocaine Screen NEGATIVE U Cannabinoids Screen NEGATIVE Ur Drug Screen Comment Ethyl Alcohol Radiography Diagnostic Testing: Radiology Impression Brain CT 05/25/21 01:52 IMPRESSION: Chronic involutional and white matter changes. No acute intracranial process. Individualized dose optimization techniques were used for this CT. at 0306 Reported and signed by: Marino Gonzalez MD Electronically Signed: Marino Gonzalez MD at 3:05 EDT Tel , Service support , Chest X-Ray 05/25/21 03:00 IMPRESSION: COPD and atherosclerotic disease. at 0349 Reported and signed by: Marino Gonzalez MD Electronically Signed: Marino Gonzalez MD at 3:44 EDT Tel , Service support , Elbow X-Ray 05/25/21 03:00 IMPRESSION: Spurring left olecranon process. at 0346 Reported and signed by: Marino Gonzalez MD Electronically Signed: Marino Gonzalez MD at 3:45 EDT Tel , Service support , Discharge Plan Triage Chief Complaint: Mental Health ED Provider: Franklin Smiley Dx/Rx/DC Orders Prescriptions: No Action metformin 500 MG tablet 850 mg PO BID RF: 0 aspirin 325 MG tablet 325 mg PO DAILY@0800 RF: 0 albuterol sulfate [Ventolin HFA] 1 INHALER inhaler 2 puff inhalation Q4H PRN PRN (Reason: Sob &/Or Wheezing) RF: 0 omeprazole 20 MG tablet,delayed release (DR/EC) 20 mg PO DAILY RF: 0 amlodipine 5 MG tablet 5 mg PO DAILY RF: 0 levothyroxine 25 MCG tablet 25 mcg PO DAILY RF: 0 fluticasone propion-salmeterol 1 EACH blister with device 1 ea IH BID PRN PRN (Reason: Dyspnea) Qty: 1 RF: 0 (DME) blood sugar diagnostic 1 EACH strip 1 ea MC BID Qty: 100 RF: 0 (DME) pen needle, diabetic, safety 1 EACH needle 1 ea MISCELL. UD Qty: 1 RF: 0 (DME) blood-glucose meter 1 EACH kit 1 ea MC BID Qty: 1 RF: 0 pioglitazone 15 mg tablet 15 mg PO DAILY RF: 0 fexofenadine 180 mg tablet 180 mg PO DAILY RF: 0 Januvia 100 mg tablet 100 mg PO DAILY RF: 0 benztropine 1 mg Tablet 1 mg PO DAILY RF: 0 oxcarbazepine 600 mg Tablet 600 mg PO BID RF: 0 ziprasidone HCl [Geodon] 60 mg Capsule 60 mg PO BID RF: 0 Primary Care Provider: Dhara Taylor
[2021-05-25 03:53] LABS: Bacteria 0 SEEN /hpf (None Seen); Mucous, Urine 0 SEEN /hpf (<or=2+); Squamous Epithelial Cells - UA 0 SEEN /hpf (0-5); White Blood Cells 0 SEEN /hpf (0-5)
[2021-05-25 03:59] LABS: Color, Urine Yellow (Yellow); Glucose, Dipstick Normal (Normal); Ketone-Dipstick Negative (Negative); Leukocyte Esterase-Dipstick Negative /ul (Negative); Nitrite-Dipstick Negative (Negative); Occult Blood-Urine 10 /ul (Negative); Protein-Dipstick 100 mg/dl (Negative); Urine Bilirubin Dipstick Negative (Negative); Urine Clarity Clear (Clear); Urine Urobilinogen Normal (Normal); Urine pH 6.5 (5.0 - 8.0)
[2021-05-25 04:07] LABS: Red Blood Cells-Urine 0-5 SEEN /hpf (0-5)
[2021-05-25 04:12] LABS: Amphetamine Urine VISTA NEGATIVE (<1000 ng/mL); Barbiturate Urine VISTA NEGATIVE (< 200 ng/mL); Benzodiazepine Urine VISTA NEGATIVE (< 200 ng/mL); Cocaine Urine VISTA NEGATIVE (< 300 ng/mL); Ecstacy Urine VISTA NEGATIVE (< 500 ng/mL); Methadone Urine VISTA NEGATIVE (< 300 ng/mL); PCP Urine VISTA NEGATIVE (< 25 ng/mL); THC Urine VISTA NEGATIVE (< 50 ng/mL); Vista UDS pH Range 6
--- NOTE | 2021-05-25 07:43 | ED.RN ---
pharmacy contacted for medications, therapeutic interchange for elina and omeprazole ordered. pt updated with information, blanket given. denies needs at this time.
[2021-05-25] MEDS: metFORMIN HCl 850 MG Tablet PO ×2 (08:20→18:15)
[2021-05-25] MEDS: Pioglitazone Hydrochloride 15 MG Tablet PO (08:20)
[2021-05-25] MEDS: Aspirin 325 MG Tablet PO (08:20)
--- NOTE | 2021-05-25 10:17 | CM.ED ---
Addendum entered by Janki Yin 05/25/21 14:06: Kathleen Farah called. She voiced that Gifty Vazquez, director of [facility], reports that patient hit his head on a window sill earlier this week. REI noted that CT was done. REI gave phone to bellows charger assembler and RN for permission to treat. Plan: Placement per counseling center Original Note: REI Note REI called Tuyet at [facility]. She said that the counseling center that patient is displaying symptoms of walking around/wandering at night and thus displaying demential symptoms along with his schizophrenia. Tuyet will be making referral to [facility] as the plan is [facility] and then after [facility] placement at SNF. Patient has a guardian, Kathleen Farah [phone]. Plan: Placement per [facility] Janki VILLAGRAN
[2021-05-25] MEDS: Levothyroxine 25 MCG TABLET PO (10:41)
[2021-05-25] MEDS: LINAGLIPTIN 5 MG TABLET PO (10:41)
[2021-05-25] MEDS: Pantoprazole Sodium 20 MG Tablet PO (10:41)
[2021-05-25] MEDS: amLODIPine 5 MG Tablet PO (10:41)
[2021-05-25] MEDS: Benztropine 2 MG Tablet 1 MG PO (10:42)
[2021-05-25] MEDS: OXcarbazepine 600 MG Tablet PO ×2 (10:42→22:26)
[2021-05-25] MEDS: Loratadine 10 MG Tablet PO (10:42)
[2021-05-25 12:40] LABS: Bedside Glucose 87 mg/dL (70-110)
--- NOTE | 2021-05-25 16:18 | EKG12_ITS ---
Test Reason : Blood Pressure : / mmHG Vent. Rate : 089 BPM Atrial Rate : 089 BPM P-R Int : 192 ms QRS Dur : 090 ms QT Int : 348 ms P-R-T Axes : 083 069 072 degrees QTc Int : 423 ms Normal sinus rhythm Right atrial enlargement Borderline ECG Confirmed by MATILDE ALSTON, WILFRID ([id number]), editor managing newspaper [employer] [place] ([id number]) on 05/29/2021 1:03:03 PM Referred By: SANTO Confirmed By:WILFRID CLAYTON MD
[2021-05-25 17:00] LABS: Bedside Glucose 93 mg/dL (70-110)
--- NOTE | 2021-05-25 17:22 | CM.ED ---
REI Note Per Michaela At [facility] REI fax covid screen, covid test, ekg, pink slip and guardianship papers to their office for review. REI received call from Michaela at [facility]. Patient will be admitted to geropsychiatry. She said that patient's MD is Dr. Sotelo and he will go to [facility]. Report at [phone]. REI updated MD and RN. READING EFFICIENCY COURSE DIRECTOR will call report. REI called Erika at [facility] and left voice mail message for her updating her regarding this dispostion. No further REI services needed at this time. Plan: [facility] Janki VILLAGRAN
--- NOTE | 2021-05-25 18:22 | ED.RN ---
THIS RN TRIED TO CALL REPORT TO GENERATIONS X3 TIMES AND KEEP GETTING HUNG UP ON. WILL ATTEMPT AGAIN
[2021-05-25] MEDS: Ibuprofen 600 MG Tablet PO (22:26)
[2021-05-25] MEDS: DiphenhydrAMINE 25 MG Capsule 50 MG PO (22:26)
[2021-05-25 22:36] LABS: Bedside Glucose 94 mg/dL (70-110)
[2021-05-26] VITALS: RESP 16
== END 2021-05-26 00:44 ==
PROVIDERS: Emergency Provider Student in an Organized Health Care Education/Training Program; PCP Internal Medicine
DX: F20.9 Schizophrenia, unspecified (principal); F17.210 Nicotine dependence, cigarettes, uncomplicated; E11.9 Type 2 diabetes mellitus without complications; J44.9 Chronic obstructive pulmonary disease, unspecified; Z79.82 Long term (current) use of aspirin; Z79.84 Long term (current) use of oral hypoglycemic drugs; Z79.899 Other long term (current) drug therapy
CPT/HCPCS: 70450; 71045; 73080; 80048; 80164; 80307; 81001; 82077; 82962; 85025; 87426; 93005; 99285

== ENCOUNTER 2021-06-29 07:25 | Emergency (ER) | payer MEDICARE, MEDICAID, SELFPAY ==
[2021-06-29 07:27] VITALS: BP 151/78; PULSE 89; RESP 14; TEMP 36.3; O2SAT 97; BMI 29.0
[2021-06-29 07:35] VITALS: O2SAT 97
--- NOTE | 2021-06-29 07:44 | EKG12_ITS ---
Test Reason : CHEST PAIN Blood Pressure : / mmHG Vent. Rate : 087 BPM Atrial Rate : 087 BPM P-R Int : 172 ms QRS Dur : 076 ms QT Int : 364 ms P-R-T Axes : 085 066 075 degrees QTc Int : 438 ms Normal sinus rhythm Normal ECG Confirmed by VIOLETA ALSTON, DEE DEE ([id number]), editor book [employer] [place] ([id number]) on 06/30/2021 1:21:09 PM Referred By: MUKUND Confirmed By:MICHELLE MCDANIEL MD
--- NOTE | 2021-06-29 08:05 | ED.VIS.CHEST ---
HPI History of Present Illness Chief Complaint: Chest Pain Informant: patient Onset/Context/Timing Onset: Today Timing: Intermittent Quality: Positive for Pain and Sharp Location: Left Parasternal Current Severity: Gone Maximum Severity: Mild Worsened By: Nothing Relieved By: Nothing Associated Symptoms: Positive for Cough; Negative for Nausea, Vomiting, Diaphoresis, Dyspnea, Fever, Lightheadedness and Acid Reflux Narrative Narrative: 65-year-old male history of underlying mental illness, COPD and diabetic. Denies any cardiac history. [facility] [place] [facility] and he got left-sided parasternal chest discomfort. He states it was sharp. He said it is resolved. He denied any other symptoms with it. He does currently have a cough. He denies any fever or chills. No history of DVT or PE. He denies any prior cardiac history. He does not believe he is ever had a heart catheterization. Does not remember if he is ever had a stress test. He denies any recent travel, surgery or immobilization. No leg swelling that is new. No hemoptysis. Prior Similar Symptoms: No Recent Illness/Hospitalization: No CVD Risk Factors: Positive for Diabetes; Negative for Hypertension PE Risk Factors: Negative for Recent Travel/Surgery, Recent Immobilization, Prior DVT or PE, Cancer and OCP + Smoking + >/=35 TAD Risk Factors: Negative for Marfan's Syndrome PFSH PFSH Medical History Anxiety COPD (chronic obstructive pulmonary disease) Depression Diabetes Schizophrenia Smoker Home Medications albuterol sulfate [Ventolin Hfa (SP)] 2 puff INHALATION Q4H PRN PRN 03/03/19 [History Last Taken Unknown] aspirin 325 mg PO DAILY@0800 03/03/19 [History Last Taken Unknown] metformin 850 mg PO TID 03/03/19 [History Last Taken Unknown] omeprazole 20 mg PO DAILY 03/03/19 [History Last Taken Unknown] amlodipine 10 mg PO DAILY 11/07/19 [History Last Taken Unknown] levothyroxine 25 mcg PO DAILY 11/07/19 [History Last Taken Unknown] blood sugar diagnostic #100 strip 09/16/20 [Rx Last Taken Unknown] blood-glucose meter #1 kit 09/16/20 [Rx Last Taken Unknown] pen needle, diabetic, safety #1 box 09/16/20 [Rx Last Taken Unknown] fexofenadine 180 mg PO DAILY 04/14/21 [History Last Taken Unknown] pioglitazone 15 mg PO DAILY 04/14/21 [History Last Taken Unknown] sitagliptin [Januvia] 100 mg PO DAILY 04/14/21 [History Last Taken Unknown] benztropine 1 mg PO DAILY 05/25/21 [History Last Taken Unknown] oxcarbazepine 600 mg PO BID 05/25/21 [History Last Taken Unknown] ziprasidone HCl [Geodon] 60 mg PO BID 05/25/21 [History Last Taken Unknown] risperidone 2 mg PO BID 06/29/21 [History Last Taken Unknown] Allergy/AdvReac Type Severity Reaction Status Date / Time sulfamethoxazole Allergy Mild Unknown Verified 06/29/21 07:30 trimethoprim Allergy Mild Unknown Verified 06/29/21 07:30 Penicillins [PCN] Allergy Unknown Verified 06/29/21 07:30 Social History Smoking Status: Current every day smoker tobacco type: cigarettes ROS ROS ED ROS Narrative Denies recent illness besides cough. Review of Systems ROS Unobtainable: Denies due to encephalopathy Constitutional Constitutional ED: Denies fever(s) or subjective Eyes Eyes: Denies none ENT ENT ED: Denies ear pain or sore throat Cardiovascular Cardiovascular: Reports as per HPI and chest pain; Denies palpitations or racing heartbeat Respiratory/Chest Respiratory/Chest: Reports cough and sputum; Denies dyspnea Gastrointestinal Gastrointestinal: Denies abdominal pain, diarrhea, nausea or vomiting Genitourinary Genitourinary ED: Denies dysuria or hematuria Musculoskeletal Musculoskeletal: Denies myalgias Integumentary Denies rash Neurologic Neurologic: Denies headache(s) Psychiatric Psychiatric: Denies depression Endocrine Endocrinology: Denies polyuria Hematologic/Lymphatic Hematologic/Lymphatic: Denies easy bruising Allergic/Immunologic Allergic/Immunologic ED: Denies urticaria EXAM Physical Exam Narrative Exam Narrative: 65-year-old male no acute distress. Vital signs are stable afebrile. Pulse ox 97% on room air no hypoxia. H EENT exam unremarkable. Neck nontender no JVD no lymphadenopathy. Lungs coarse breath sounds bilaterally. Few scattered expiratory wheezes. No rales. Chest wall Nontender. Heart regular rate and rhythm no murmur rate about 85. Abdomen soft nontender. Moving all 4 extremities. Trace edema both lower extremities. Neurologically is awake and alert. Moving all 4 extremities. Answering questions and following commands. Const Vital Signs: 06/29/21 07:27 06/29/21 07:35 06/29/21 08:12 Temperature 97.3 F L Temperature Source Temporal Pulse Rate 89 Respiratory Rate 14 Respiratory Effort Normal Non-Labored Respiratory Pattern Normal Blood Pressure 151/78 H Blood Pressure Mean 102 Pulse Ox 97 97 97 Oxygen Delivery Method Room Air Room Air Room Air 06/29/21 08:57 Temperature Temperature Source Pulse Rate 97 Respiratory Rate 17 Respiratory Effort Respiratory Pattern Blood Pressure 153/79 H Blood Pressure Mean 103 Pulse Ox 95 Oxygen Delivery Method Room Air Positive well nourished and well developed; Negative for obese, cachectic, contractures or unkempt General Appearance ED: well developed and NAD; Negative for unkempt, cachectic, contractures or pallor Nutritional Appearance: Negative for cachectic or obese HEENT Reports moist mucous membranes normocephalic and atraumatic; Negative for trauma Eyes PERRL and EOMs intact bilaterally Neck no lymphadenopathy, supple and no JVD General: Negative for tenderness Chest Wall inspection of chest normal and palpation of chest normal Resp normal respiratory effort and No clear to auscultation bilaterally Effort and Inspection: respiratory distress Auscultation: rhonchi and wheezes; Negative for rales Cardio regular rate, regular rhythm, S1 normal heart sound, S2 normal heart sound and no murmurs Rate: Negative for tachycardic GI normal to inspection, nondistended, normoactive bowel sounds, soft to palpation, non-tender, non-distended and no masses Back/Spine no CVA tenderness General Back: Negative for CVA tenderness Extremity Negative for normal to inspection General Extremety ED: Yes edema; Negative for tenderness General Extremity: edema Neuro oriented x3 Sensorium / Orientation: awake, alert, oriented to person, oriented to place and oriented to time Motor Exam: strength 5/5 throughout Psych mental status grossly normal Appearance: Negative for unkempt Skin no rashes or lesions noted and no wounds General Skin Exam: Negative for jaundice or pallor Heart Score History: Slightly/Non-Suspicious ECG: Normal Age: >45 - <65 years Risk Factors: 1 or 2 Risk Factors Troponin: </= Normal Limit Score: 2 MDM MDM MDM Narrative Medical decision making narrative: 65-year-old male with schizophrenia and COPD. Atypical nonreproducible left-sided chest pain that occurred while standing smoking a cigarette. No exertion. Currently is pain-free. Undergo cardiac work-up. P.o. aspirin. Lab Data Attestation: I reviewed the patient's lab results. Lab results narrative: CBC showed a white count of 7. Hemoglobin 11.5. Electrolytes showed a sodium of 127. Gap of 5 normal creatinine of 0.59. Troponin X. Patient's hemoglobin is 11.5 it is down a little bit previously has been 12-13. Labs: Laboratory Results - last 24 hr 06/29/21 06/29/21 08:08 08:08 WBC 7.3 RBC 3.97 L Hgb 11.5 L Hct 33.8 L MCV 85.1 MCH 29.0 MCHC 34.0 RDW Std Deviation 43.0 RDW Coeff of Vicente 13.8 Plt Count 238 MPV 9.4 Immature Gran % (Auto) 0.400 Neut % (Auto) 82.4 H Lymph % (Auto) 8.9 L [place] % (Auto) 6.3 Eos % (Auto) 1.6 Baso % (Auto) 0.4 Absolute Neuts (auto) 6.0 Absolute Lymphs (auto) 0.65 L Nucleated RBC % 0 Sodium 127 L Potassium 3.9 Chloride 92 L Carbon Dioxide 30.0 Anion Gap 5 BUN 18 Creatinine 0.59 L Estim Creat Clear Calc 130.60 Est GFR (MDRD) Af Amer 178 Est GFR (MDRD) Non-Af 147 BUN/Creatinine Ratio 30.5 H Glucose 107 H Calcium 8.8 Troponin I High Sens 10 Radiography Chest X-Ray - ED: 1 View, Read by ED Physician, Read by Radiologist, Heart, Lungs, Mediastinum, Bony Structures, No Acute Disease and Chronic Changes Diagnostic Testing: Radiology Impression Chest X-Ray 06/29/21 08:35 IMPRESSION: Hyperinflation. No acute abnormality is seen. Electronically Signed: Portillo Cramer MD at 8:55 EDT , Service support , Rhythm Strip Rhythm Strip: Sinus Rhythm Rate: 89 Ectopy: None EKG Initial EKG: Attestation: I personally reviewed and interpreted this EKG as follows: Interpretation: Sinus Rhythm and No Acute Injury Pattern Comments: Normal sinus rhythm rate of 89 and unchanged from prior EKG from May. No signs of MA nor ischemia. Prior EKG tracings: available for review Prior: Unchanged Discharge Plan Triage Chief Complaint: Chest Pain ED Provider: Osmani Deras Dx/Rx/DC Orders Clinical Impression: Schizophrenia, Chest pain of uncertain etiology Instructions: ED Chest Pain, Uncertain Cause Prescriptions: No Action metformin 500 MG tablet 850 mg PO TID RF: 0 aspirin 325 MG tablet 325 mg PO DAILY@0800 RF: 0 albuterol sulfate [Ventolin HFA] 1 INHALER inhaler 2 puff inhalation Q4H PRN PRN (Reason: Sob &/Or Wheezing) RF: 0 omeprazole 20 MG tablet,delayed release (DR/EC) 20 mg PO DAILY RF: 0 amlodipine 5 MG tablet 10 mg PO DAILY RF: 0 levothyroxine 25 MCG tablet 25 mcg PO DAILY RF: 0 (DME) blood sugar diagnostic 1 EACH strip 1 ea MC BID Qty: 100 RF: 0 (DME) pen needle, diabetic, safety 1 EACH needle 1 ea MISCELL. UD Qty: 1 RF: 0 (DME) blood-glucose meter 1 EACH kit 1 ea MC BID Qty: 1 RF: 0 pioglitazone 15 mg tablet 15 mg PO DAILY RF: 0 fexofenadine 180 mg tablet 180 mg PO DAILY RF: 0 Januvia 100 mg tablet 100 mg PO DAILY RF: 0 benztropine 1 mg Tablet 1 mg PO DAILY RF: 0 oxcarbazepine 600 mg Tablet 600 mg PO BID RF: 0 ziprasidone HCl [Geodon] 60 mg Capsule 60 mg PO BID RF: 0 risperidone 2 mg tablet 2 mg PO BID RF: 0 Primary Care Provider: Dhara Taylor Referrals: Dhara Taylor, DO [Primary Care Provider] - 1 Week if not improving Activity Restrictions/Additional Instructions: Your test results look good. Your hemoglobin was 11.5 it is a little lower your doctors office can recheck that. Your sodium was a little low to at 127 add some salt to your food. You absolutely need to stop smoking. If you have recurrent chest pain need follow-up with your primary care physician they may want to do an outpatient stress test. Disposition Disposition: Home, Self Care
[2021-06-29 08:12] VITALS: O2SAT 97
[2021-06-29 08:17] LABS: Absolute Lymphocyte Count 0.65 X10^3/uL (0.83-4.51); Basophil# 0.03 X10^3/uL; Basophil% 0.4 % (0-1); Eosinophil# 0.12 X10^3/uL; Eosinophils% 1.6 % (0-5); Hematocrit 33.8 % (40-54); Hemoglobin 11.5 g/dL (13.0-16.5); Lymphocyte # 0.65 X10^3/ul (0.83-4.51); Lymphocyte % 8.9 % (19-41); Mean Corpuscular Volume 85.1 fL (80-94); Mean Platelet Vol. 9.4 fl (6.2-12.0); Monocyte# 0.46 X10^3/uL; Monocyte% 6.3 % (0-10); NRBC Flagged by Analyzer 0 % (0-5); Neutrophil # 6.04 X10^3/uL (2.7-7.7); Neutrophil % 82.4 % (47-70); Platelet Count 238 K/mm3 (150-450); RBC Distribution Width CV 13.8 % (11.6-14.6); Red Blood Count 3.97 M/mm3 (4.6-6.2); White Blood Count 7.3 K/mm3 (4.4-11.0)
--- NOTE | 2021-06-29 08:33 | EKG12_ITS ---
Test Reason : CHEST PAIN Blood Pressure : / mmHG Vent. Rate : 089 BPM Atrial Rate : 089 BPM P-R Int : 174 ms QRS Dur : 084 ms QT Int : 346 ms P-R-T Axes : 082 071 074 degrees QTc Int : 420 ms Normal sinus rhythm Right atrial enlargement Borderline ECG When compared with ECG of 25-MAY-2021 16:27, No significant change was found Confirmed by WILFRID CLAYTON MD ([id number]), associate editor FIDEL LA ([id number]) on 07/05/2021 11:18:35 AM Referred By: MUKUND Confirmed By:WILFRID CLAYTON MD
[2021-06-29 08:35] LABS: Anion Gap 5 (5-15); BUN 18 mg/dL (7-18); BUN/Creat Ratio 30.5 RATIO (10-20); Calcium,Total 8.8 mg/dL (8.5-10.1); Chloride 92 mmol/L (98-107); Creatinine, Serum 0.59 mg/dL (0.70-1.30); EST Glomerular Filtration Rate 147 mL/min (>60); Est Glom Filt Rate - Afr Amer 178 mL/min (>60); Glucose 107 mg/dL (74-106); Potassium 3.9 mmol/L (3.5-5.1); Sodium Level 127 mmol/L (136-145); Troponin-I HS 10 pg/mL (3.0-78.0)
--- NOTE | 2021-06-29 08:35 | RAD_ITS ---
STUDY: X-RAY CHEST REASON FOR EXAM: Male, 65 years old. Chest pain TECHNIQUE: Single AP portable view of the chest. COMPARISON: Comparison is made with prior examination of 05/25/2021. FINDINGS: EKG electrodes are seen. There is hyperinflation of the lungs consistent with chronic obstructive lung disease (COPD). There is no demonstrated pleural abnormality. Normal size heart. Normal mediastinum and jose. There is prominence of the pulmonary hilar arteries without peripheral pulmonary vascular congestion, suggesting pulmonary hypertension. Normal visualized aortic arch and descending thoracic aorta. There are diffuse degenerative changes of the visualized thoracic spine. Normal visualized ribs, clavicles, and shoulders. There is no demonstrated abnormality of the visualized soft tissue structures of the upper abdomen. RAD/Chest 1 View (Portable) IMPRESSION: Hyperinflation. No acute abnormality is seen. Electronically Signed: Portillo Cramer MD at 8:55 EDT , Service support ,
[2021-06-29 08:57] VITALS: BP 153/79; PULSE 97; RESP 17; O2SAT 95
[2021-06-29 09:58] VITALS: BP 141/82; PULSE 95; RESP 16; O2SAT 97
--- NOTE | 2021-06-29 10:05 | ED.RN ---
Patient's guardian called about ride home. Patient states he has no idea how he can get home. Guardian is calling lead case manager to coordinate a ride and will call us back with update.
[2021-06-29 10:23] VITALS: BP 153/71; PULSE 89; RESP 20; O2SAT 98
== END 2021-06-29 11:13 | disposition home or self-care (01) ==
PROVIDERS: Emergency Provider Emergency Medicine; PCP Internal Medicine
DX: R07.9 Chest pain, unspecified (principal); F20.9 Schizophrenia, unspecified; J44.9 Chronic obstructive pulmonary disease, unspecified; E11.9 Type 2 diabetes mellitus without complications; F17.210 Nicotine dependence, cigarettes, uncomplicated; Z79.84 Long term (current) use of oral hypoglycemic drugs; Z79.52 Long term (current) use of systemic steroids; Z79.899 Other long term (current) drug therapy
CPT/HCPCS: 36415; 71045; 80048; 84484; 85025; 93005; 99285; A4216

== ENCOUNTER 2021-07-12 05:02 | Emergency (ER) | payer MEDICARE, MEDICAID, SELFPAY ==
[2021-07-12 05:05] VITALS: BP 178/78; PULSE 86
[2021-07-12 05:06] VITALS: BP 178/78; TEMP 36.9; BMI 29.2
[2021-07-12 05:08] VITALS: BP 178/78; PULSE 94; RESP 17; TEMP 36.9; O2SAT 99; BMI 29.2
--- NOTE | 2021-07-12 06:04 | EDS_ITS ---
HPI HPI - Psych History of Present Illness Chief Complaint: Mental Health Informant: patient Onset/Context/Timing Onset: Month(s) Context: Gradual Onset Timing: Continuous Current Severity: Mild Maximum Severity: Mild Associated Symptoms Associated Symptoms - Psych: Negative for Depressed, Change in Eating and Suicidal Thoughts Narrative Narrative: 65-year-old male who has history of diabetes and schizophrenia. Believes he may have been poisoned after he ate a buttermilk biscuit at the skilled nursing he lives at. He said he believes is a plot to kill off the president and all the presents people. He states he personally met with high ranking officials and was told he was a very valued member of society and that he would be protected. He also believes that he may have been a disciples of [employer]. He is not suicidal or homicidal. He denies being recently ill. He denies any headache, vomiting, diarrhea or fever. Prior similar symptoms: Yes Recent Illness/Hospitalization: No PFSH PFSH Medical History Anxiety COPD (chronic obstructive pulmonary disease) Depression Diabetes Schizophrenia Smoker Home Medications albuterol sulfate [Ventolin Hfa (SP)] 2 puff INHALATION Q4H PRN PRN 03/03/19 [History Last Taken Unknown] aspirin 325 mg PO DAILY@0800 03/03/19 [History Last Taken Unknown] metformin 850 mg PO TID 03/03/19 [History Last Taken Unknown] omeprazole 20 mg PO DAILY 03/03/19 [History Last Taken Unknown] amlodipine 10 mg PO DAILY 11/07/19 [History Last Taken Unknown] levothyroxine 25 mcg PO DAILY 11/07/19 [History Last Taken Unknown] blood sugar diagnostic #100 strip 09/16/20 [Rx Last Taken Unknown] blood-glucose meter #1 kit 09/16/20 [Rx Last Taken Unknown] pen needle, diabetic, safety #1 box 09/16/20 [Rx Last Taken Unknown] fexofenadine 180 mg PO DAILY 04/14/21 [History Last Taken Unknown] pioglitazone 15 mg PO DAILY 04/14/21 [History Last Taken Unknown] sitagliptin [Januvia] 100 mg PO DAILY 04/14/21 [History Last Taken Unknown] benztropine 1 mg PO DAILY 05/25/21 [History Last Taken Unknown] oxcarbazepine 600 mg PO BID 05/25/21 [History Last Taken Unknown] ziprasidone HCl [Geodon] 60 mg PO BID 05/25/21 [History Last Taken Unknown] risperidone 2 mg PO BID 06/29/21 [History Last Taken Unknown] Allergy/AdvReac Type Severity Reaction Status Date / Time sulfamethoxazole Allergy Mild Unknown Verified 07/12/21 05:11 trimethoprim Allergy Mild Unknown Verified 07/12/21 05:11 Penicillins [PCN] Allergy Unknown Verified 07/12/21 05:11 Social History Smoking Status: Current every day smoker tobacco type: cigarettes ROS ROS ED ROS Narrative Denies recent illness. Review of Systems ROS Unobtainable: Denies due to encephalopathy Constitutional Constitutional ED: Denies chills or fever(s) Eyes Eyes: Denies change in vision ENT ENT ED: Denies ear pain Cardiovascular Cardiovascular: Denies chest pain Respiratory/Chest Respiratory/Chest: Denies cough or dyspnea Gastrointestinal Gastrointestinal: Denies abdominal pain, diarrhea, nausea or vomiting Genitourinary Genitourinary ED: Denies dysuria Musculoskeletal Musculoskeletal: Denies myalgias Integumentary Denies rash Neurologic Neurologic: Denies headache(s) Psychiatric Psychiatric: Denies depression Endocrine Endocrinology: Denies polyuria Hematologic/Lymphatic Hematologic/Lymphatic: Denies easy bruising Allergic/Immunologic Allergic/Immunologic ED: Denies urticaria EXAM Physical Exam Narrative Exam Narrative: 65-year-old male who walks in the bathroom back to his room. Vital signs are stable afebrile. He is in no acute distress. He is calm. He is interactive. He is answering questions and following commands. He is neither agitated nor violent. He is conversing normally. HEENT exam unremarkable. Moist with membranes. No signs of trauma. Neck nontender no lymphadenopathy. Lungs clear to auscultation bilaterally. Heart regular rhythm no murmur. Abdomen soft nontender. Patient moving all 4 extremities. Equal symmetrical geospatial image analyst strength. He can stand and walk easily. Neurologically is awake. He is alert. He is answering questions. Is following commands. He has no focal motor deficits. Issues that he is talking about are consistent with paranoid schizophrenia. Patient is well-known the emergency department. This is often his baseline. Const Vital Signs: 07/12/21 05:05 07/12/21 05:06 07/12/21 05:08 Temperature 98.4 F 98.4 F Temperature Source Temporal Temporal Pulse Rate 86 94 Respiratory Rate 17 Blood Pressure 178/78 H 178/78 H 178/78 H Blood Pressure Mean 111 111 111 Pulse Ox 99 Oxygen Delivery Method Room Air Positive well nourished and well developed; Negative for obese, cachectic, contractures or unkempt General Appearance ED: well developed and NAD; Negative for unkempt, cachectic, contractures or pallor Nutritional Appearance: Negative for cachectic or obese HEENT Reports moist mucous membranes normocephalic and atraumatic; Negative for trauma Eyes PERRL and EOMs intact bilaterally Neck no lymphadenopathy, supple and no JVD Resp normal respiratory effort and clear to auscultation bilaterally Cardio S1 normal heart sound, S2 normal heart sound and no murmurs Rate: regular rate Rhythm: regular rhythm GI non-tender, non-distended and no masses Auscultation: normoactive bowel sounds Palpation: soft; Negative for tender Back/Spine no CVA tenderness General Back: Negative for CVA tenderness Cervical Spine: Negative for cervical spine tenderness Thoracic Spine / Upper Back: Negative for thoracic spinal tenderness Extremity normal to inspection General Extremety ED: Negative for edema or tenderness General Extremity: Negative for edema Neuro oriented x3 and CN's II-XII intact bilaterally Sensorium / Orientation: alert, oriented to person, oriented to place and oriented to time; Negative for confused, lethargic or stuporous Motor Exam: strength 5/5 throughout Psych mental status grossly normal, cooperative, affect normal, speech normal, activity/motor behavior normal, denies homicidal ideation and denies suicidal ideation; Negative for thought process normal Psych Narrative: Patient with schizophrenia. Appearance: Negative for unkempt Skin General Skin Exam: Negative for jaundice or pallor Lesions: no lesions Rashes: no rashes MDM MDM MDM Narrative Medical decision making narrative: 65-year-old male known to phrenic. At his baseline. Exam normal. He will be discharged home. Discharge Plan Triage Chief Complaint: Mental Health ED Provider: Osmani Deras Dx/Rx/DC Orders Clinical Impression: Schizophrenia Instructions: ED Schizophrenia, General Prescriptions: No Action metformin 500 MG tablet 850 mg PO TID RF: 0 aspirin 325 MG tablet 325 mg PO DAILY@0800 RF: 0 albuterol sulfate [Ventolin HFA] 1 INHALER inhaler 2 puff inhalation Q4H PRN PRN (Reason: Sob &/Or Wheezing) RF: 0 omeprazole 20 MG tablet,delayed release (DR/EC) 20 mg PO DAILY RF: 0 amlodipine 5 MG tablet 10 mg PO DAILY RF: 0 levothyroxine 25 MCG tablet 25 mcg PO DAILY RF: 0 (DME) blood sugar diagnostic 1 EACH strip 1 ea MC BID Qty: 100 RF: 0 (DME) pen needle, diabetic, safety 1 EACH needle 1 ea MISCELL. UD Qty: 1 RF: 0 (DME) blood-glucose meter 1 EACH kit 1 ea MC BID Qty: 1 RF: 0 pioglitazone 15 mg tablet 15 mg PO DAILY RF: 0 fexofenadine 180 mg tablet 180 mg PO DAILY RF: 0 Januvia 100 mg tablet 100 mg PO DAILY RF: 0 benztropine 1 mg Tablet 1 mg PO DAILY RF: 0 oxcarbazepine 600 mg Tablet 600 mg PO BID RF: 0 ziprasidone HCl [Geodon] 60 mg Capsule 60 mg PO BID RF: 0 risperidone 2 mg tablet 2 mg PO BID RF: 0 Primary Care Provider: Dhara Taylor Referrals: Dhara Taylor, [Primary Care Provider] - 3-5 Days if not improving Activity Restrictions/Additional Instructions: Your exam is normal tonight. Follow-up with your doctor as needed. Disposition Disposition: Home, Self Care
== END 2021-07-12 06:21 | disposition home or self-care (01) ==
PROVIDERS: Emergency Provider Emergency Medicine; PCP Internal Medicine
DX: F20.9 Schizophrenia, unspecified (principal); F41.9 Anxiety disorder, unspecified; F32.9 Major depressive disorder, single episode, unspecified; J44.9 Chronic obstructive pulmonary disease, unspecified; E11.9 Type 2 diabetes mellitus without complications; F17.210 Nicotine dependence, cigarettes, uncomplicated; Z79.51 Long term (current) use of inhaled steroids; Z79.84 Long term (current) use of oral hypoglycemic drugs; Z79.899 Other long term (current) drug therapy
CPT/HCPCS: 99284

== ENCOUNTER 2021-07-18 08:32 | Emergency (ER) | payer MEDICARE, MEDICAID, SELFPAY ==
[2021-07-18 08:34] VITALS: BP 154/80; PULSE 86; RESP 15; TEMP 36.8; O2SAT 98; BMI 29.1
[2021-07-18 08:38] VITALS: O2SAT 98
--- NOTE | 2021-07-18 09:18 | ED.VIS.DYS ---
HPI History of Present Illness Chief Complaint: Shortness of Breath Informant: patient Narrative Narrative: 65-year-old male with a history of COPD presents with shortness of breath. He tells me that for the past 4 days he has been out of his albuterol inhaler. He has a paranoid schizophrenic from longterm. History is difficult to obtain from him as he has preoccupations with [employer], [employer], the [place], and his genetic make-up. From what I can get from him his breathing is better and he was able to smoke a few cigarettes this morning. He notes no change in his sputum production. No reported fevers. PFSH PFSH Medical History Anxiety COPD (chronic obstructive pulmonary disease) Depression Diabetes Schizophrenia Smoker Home Medications albuterol sulfate [Ventolin Hfa (SP)] 2 puff INHALATION Q4H PRN PRN 03/03/19 [History Last Taken Unknown] aspirin 325 mg PO DAILY@0800 03/03/19 [History Last Taken Unknown] metformin 850 mg PO TID 03/03/19 [History Last Taken Unknown] omeprazole 20 mg PO DAILY 03/03/19 [History Last Taken Unknown] amlodipine 10 mg PO DAILY 11/07/19 [History Last Taken Unknown] levothyroxine 25 mcg PO DAILY 11/07/19 [History Last Taken Unknown] blood sugar diagnostic #100 strip 09/16/20 [Rx Last Taken Unknown] blood-glucose meter #1 kit 09/16/20 [Rx Last Taken Unknown] pen needle, diabetic, safety #1 box 09/16/20 [Rx Last Taken Unknown] fexofenadine 180 mg PO DAILY 04/14/21 [History Last Taken Unknown] pioglitazone 15 mg PO DAILY 04/14/21 [History Last Taken Unknown] sitagliptin [Januvia] 100 mg PO DAILY 04/14/21 [History Last Taken Unknown] benztropine 1 mg PO DAILY 05/25/21 [History Last Taken Unknown] oxcarbazepine 600 mg PO BID 05/25/21 [History Last Taken Unknown] ziprasidone HCl [Geodon] 60 mg PO BID 05/25/21 [History Last Taken Unknown] risperidone 4 mg PO BID 06/29/21 [History Last Taken Unknown] Allergy/AdvReac Type Severity Reaction Status Date / Time sulfamethoxazole Allergy Mild Unknown Verified 07/18/21 08:37 trimethoprim Allergy Mild Unknown Verified 07/18/21 08:37 Penicillins [PCN] Allergy Unknown Verified 07/18/21 08:37 Social History (Updated 07/18/21 @ 09:[address] Reji Funk, DO) Smoking Status: Current every day smoker tobacco type: cigarettes substance use type: does not use ROS ROS ED Constitutional Constitutional ED: Denies chills or weight loss Eyes Eyes: Denies change in vision or diplopia ENT ENT ED: Denies ear pain, rhinorrhea or sore throat Cardiovascular Cardiovascular: Denies chest pain, orthopnea, palpitations or racing heartbeat Respiratory/Chest Respiratory/Chest: Reports cough, dyspnea and sputum; Denies orthopnea Gastrointestinal Gastrointestinal: Denies abdominal pain, diarrhea, nausea or vomiting Genitourinary Genitourinary ED: Denies dysuria, hematuria or urinary frequency Musculoskeletal Musculoskeletal: Denies arthralgias or myalgias Integumentary Denies abscess or rash Neurologic Neurologic: Denies headache(s) or weakness Psychiatric Psychiatric: Denies anxiety, depression, suicidal ideation or suicidal thoughts Endocrine Endocrinology: Denies polydipsia, polyphagia or polyuria Allergic/Immunologic Allergic/Immunologic ED: Denies mouth swelling, tongue swelling or urticaria EXAM Physical Exam Const Vital Signs: 07/18/21 08:34 07/18/21 08:38 07/18/21 09:36 Temperature 98.2 F Temperature Source Oral Pulse Rate 86 85 Respiratory Rate 15 16 Respiratory Effort Normal Non-Labored Respiratory Depth Normal Respiratory Pattern Normal Blood Pressure 154/80 H Blood Pressure Mean 104 Pulse Ox 98 Oxygen Delivery Method Room Air Room Air Positive well nourished and well developed General Appearance ED: well developed HEENT Reports normocephalic, head/scalp atraumatic and moist mucous membranes Eyes PERRL and EOMs intact bilaterally Neck no lymphadenopathy, supple and no JVD Resp normal respiratory effort Auscultation: wheezes Cardio regular rate, regular rhythm and no murmurs GI normal to inspection, nondistended, normoactive bowel sounds and non-tender Palpation: soft Back/Spine no CVA tenderness and normal ROM Extremity Extremity Narrative: Bilateral lower extremity edema. General Extremety ED: Yes edema General Extremity: edema Neuro oriented x3 and CN's II-XII intact bilaterally Sensorium / Orientation: alert Motor Exam: strength 5/5 throughout Psych Psych Narrative: Patient with delusions and preoccupations. Mood & Affect: Negative for depressed or tearful Skin no rashes or lesions noted and no wounds MDM MDM MDM Narrative Medical decision making narrative: Patient received a DuoNeb. I also gave him a couple puffs from a new albuterol MDI that he does not have 1. Patient not requiring any oxygen. He is not appear to be having a COPD flare just simply out of his medication. Therefore I do not think that steroids would be of benefit. Discharge Plan Triage Chief Complaint: Shortness of Breath ED Provider: Reji Funk Dx/Rx/DC Orders Clinical Impression: COPD (chronic obstructive pulmonary disease) Instructions: ED COPD Flare Prescriptions: No Action metformin 500 MG tablet 850 mg PO TID RF: 0 aspirin 325 MG tablet 325 mg PO DAILY@0800 RF: 0 albuterol sulfate [Ventolin HFA] 1 INHALER inhaler 2 puff inhalation Q4H PRN PRN (Reason: Sob &/Or Wheezing) RF: 0 omeprazole 20 MG tablet,delayed release (DR/EC) 20 mg PO DAILY RF: 0 amlodipine 5 MG tablet 10 mg PO DAILY RF: 0 levothyroxine 25 MCG tablet 25 mcg PO DAILY RF: 0 (DME) blood sugar diagnostic 1 EACH strip 1 ea MC BID Qty: 100 RF: 0 (DME) pen needle, diabetic, safety 1 EACH needle 1 ea MISCELL. UD Qty: 1 RF: 0 (DME) blood-glucose meter 1 EACH kit 1 ea MC BID Qty: 1 RF: 0 pioglitazone 15 mg tablet 15 mg PO DAILY RF: 0 fexofenadine 180 mg tablet 180 mg PO DAILY RF: 0 Januvia 100 mg tablet 100 mg PO DAILY RF: 0 benztropine 1 mg Tablet 1 mg PO DAILY RF: 0 oxcarbazepine 600 mg Tablet 600 mg PO BID RF: 0 ziprasidone HCl [Geodon] 60 mg Capsule 60 mg PO BID RF: 0 risperidone 2 mg tablet 4 mg PO BID RF: 0 Primary Care Provider: Dhara Taylor Referrals: Dhara Taylor DO [Primary Care Provider] - [facility] appointment Disposition Disposition: Home, Self Care
[2021-07-18] MEDS: Ipratropium/Albuterol Sulfate 3 ML AMPUL.NEB INHALATION (09:29)
[2021-07-18 09:36] VITALS: PULSE 85; RESP 16
[2021-07-18 10:00] VITALS: BP 139/98; RESP 16; O2SAT 100
== END 2021-07-18 10:01 | disposition home or self-care (01) ==
PROVIDERS: Emergency Provider Emergency Medicine; PCP Internal Medicine
DX: J44.9 Chronic obstructive pulmonary disease, unspecified (principal); F17.210 Nicotine dependence, cigarettes, uncomplicated; F20.0 Paranoid schizophrenia; E11.9 Type 2 diabetes mellitus without complications; Z79.51 Long term (current) use of inhaled steroids; Z79.84 Long term (current) use of oral hypoglycemic drugs; Z79.899 Other long term (current) drug therapy
CPT/HCPCS: 94640; 99284

== ENCOUNTER 2021-07-26 03:34 | Emergency (ER) | payer MEDICARE, MEDICAID, SELFPAY ==
[2021-07-26 03:35] VITALS: PULSE 101; RESP 18; TEMP 36.6; O2SAT 97; BMI 27.8
[2021-07-26 03:40] VITALS: BP 163/83
--- NOTE | 2021-07-26 04:12 | EKG12_ITS ---
Test Reason : DYSRHYTHMIA Blood Pressure : / mmHG Vent. Rate : 093 BPM Atrial Rate : 093 BPM P-R Int : 172 ms QRS Dur : 080 ms QT Int : 354 ms P-R-T Axes : 079 069 066 degrees QTc Int : 440 ms Normal sinus rhythm Normal ECG Confirmed by VIOLETA ALSTON, DEE DEE ([id number]), newspaper photo editor FIDEL LA ([id number]) on 07/27/2021 1:52:42 P M Referred By: JONATHAN Confirmed By:MICHELLE MCDANIEL MD
[2021-07-26 04:29] LABS: Absolute Lymphocyte Count 0.84 X10^3/uL (0.83-4.51); Absolute Neutrophil Count 4.9 X10^3/uL (2.0-7.7); Basophil# 0.04 X10^3/uL; Basophil% 0.6 % (0-1); Eosinophil# 0.11 X10^3/uL; Eosinophils% 1.7 % (0-5); Hematocrit 35.8 % (40-54); Hemoglobin 12.5 g/dL (13.0-16.5); Lymphocyte # 0.84 X10^3/ul (0.83-4.51); Mean Corp Hgb Conc 34.9 g/dL (32-36); Mean Corpuscular Hgb 28.8 pg (27.0-32.0); Mean Corpuscular Volume 82.5 fL (80-94); Mean Platelet Vol. 10.5 fl (6.2-12.0); Monocyte% 7.7 % (0-10); NRBC Flagged by Analyzer 0 % (0-5); Neutrophil # 4.94 X10^3/uL (2.7-7.7); Neutrophil % 76.5 % (47-70); Platelet Count 219 K/mm3 (150-450); RBC Distribution Width CV 13.3 % (11.6-14.6); RBC Distribution Width SD 40.4 fl (35.1-43.9); Red Blood Count 4.34 M/mm3 (4.6-6.2); White Blood Count 6.5 K/mm3 (4.4-11.0)
[2021-07-26 04:48] LABS: Anion Gap 11 (5-15); BUN 20 mg/dL (7-18); BUN/Creat Ratio 23.8 RATIO (10-20); Calcium,Total 9.2 mg/dL (8.5-10.1); Chloride 87 mmol/L (98-107); Creatinine, Serum 0.84 mg/dL (0.70-1.30); EST Glomerular Filtration Rate 98 mL/min (>60); Est Glom Filt Rate - Afr Amer 118 mL/min (>60); Estimated Creatinine Clearance 91.73 ml/min; Glucose 126 mg/dL (74-106); Potassium 4.1 mmol/L (3.5-5.1); Sodium Level 123 mmol/L (136-145)
--- NOTE | 2021-07-26 06:04 | EDS_ITS ---
HPI HPI - Psych History of Present Illness Chief Complaint: Mental Health Informant: patient Onset/Context/Timing Onset: Today Context: Gradual Onset Timing: Continuous Worsened by: Situational factors Relieved by: Nothing Associated Symptoms Associated Symptoms - Psych: Positive for Easily distracted, Flight of Ideas and Increased activity; Negative for Suicidal Thoughts, Paranoia, Visual Hallucinations and Auditory Hallucinations Narrative Narrative: Patient presents with abnormal behavior that was noticed tonight. Patient has some delusional thoughts. Patient denies any suicidal or homicidal ideations. Patient denies any auditory or visual hallucinations. Patient states he knows some people in the [employer] and [employer]. Patient denies any paranoid ideations. Patient does not think anybody is out to get him. Patient states he had a CT scan and MRI in the past which showed no evidence of schizophrenia. PFSH PFSH Medical History Anxiety COPD (chronic obstructive pulmonary disease) Depression Diabetes Schizophrenia Smoker Home Medications albuterol sulfate [Ventolin Hfa (SP)] 2 puff INHALATION Q4H PRN PRN 03/03/19 [History Last Taken Unknown] aspirin 325 mg PO DAILY@0800 03/03/19 [History Last Taken Unknown] metformin 850 mg PO TID 03/03/19 [History Last Taken Unknown] omeprazole 20 mg PO DAILY 03/03/19 [History Last Taken Unknown] amlodipine 10 mg PO DAILY 11/07/19 [History Last Taken Unknown] levothyroxine 25 mcg PO DAILY 11/07/19 [History Last Taken Unknown] blood sugar diagnostic #100 strip 09/16/20 [Rx Last Taken Unknown] blood-glucose meter #1 kit 09/16/20 [Rx Last Taken Unknown] pen needle, diabetic, safety #1 box 09/16/20 [Rx Last Taken Unknown] fexofenadine 180 mg PO DAILY 04/14/21 [History Last Taken Unknown] pioglitazone 15 mg PO DAILY 04/14/21 [History Last Taken Unknown] sitagliptin [Januvia] 100 mg PO DAILY 04/14/21 [History Last Taken Unknown] benztropine 1 mg PO DAILY 05/25/21 [History Last Taken Unknown] oxcarbazepine 600 mg PO BID 05/25/21 [History Last Taken Unknown] ziprasidone HCl [Geodon] 60 mg PO BID 05/25/21 [History Last Taken Unknown] risperidone 4 mg PO BID 06/29/21 [History Last Taken Unknown] Allergy/AdvReac Type Severity Reaction Status Date / Time sulfamethoxazole Allergy Mild Unknown Verified 07/26/21 03:38 trimethoprim Allergy Mild Unknown Verified 07/26/21 03:38 Penicillins [PCN] Allergy Unknown Verified 07/26/21 03:38 Social History Smoking Status: Current every day smoker tobacco type: cigarettes substance use type: does not use ROS ROS ED Constitutional Constitutional ED: Denies chills or fever(s) Eyes Eyes: Denies blurry vision or change in vision ENT ENT ED: Denies rhinorrhea or sore throat Cardiovascular Cardiovascular: Denies chest pain or palpitations Respiratory/Chest Respiratory/Chest: Denies cough or dyspnea Gastrointestinal Gastrointestinal: Denies nausea or vomiting Genitourinary Genitourinary ED: Denies dysuria or hematuria Musculoskeletal Musculoskeletal: Denies back pain or neck pain Integumentary Denies abscess or rash Neurologic Neurologic: Denies headache(s) or weakness Psychiatric Psychiatric: Denies depression, suicidal ideation or suicidal thoughts Allergic/Immunologic Allergic/Immunologic ED: Denies mouth swelling or urticaria EXAM Physical Exam Const Vital Signs: 07/26/21 03:35 07/26/21 03:40 07/26/21 06:29 Temperature 97.8 F Temperature Source Temporal Pulse Rate 101 H 72 Respiratory Rate 18 Blood Pressure 163/83 H Blood Pressure Mean 109 Pulse Ox 97 Oxygen Delivery Method Room Air Positive well nourished, well developed and unkempt General Appearance ED: unkempt and well developed HEENT normocephalic and atraumatic Neck supple and no JVD Resp normal respiratory effort and clear to auscultation bilaterally Cardio no murmurs Rate: regular rate Rhythm: regular rhythm GI non-tender and non-distended Auscultation: normoactive bowel sounds Palpation: soft Extremity normal to inspection General Extremety ED: Negative for edema or tenderness General Extremity: Negative for edema Neuro oriented x3, CN's II-XII intact bilaterally and no sensory deficits noted Sensorium / Orientation: alert Motor Exam: strength 5/5 throughout Psych mental status grossly normal Appearance: unkempt Activity / Motor Behavior: disorganized and restless Speech: excessive and soft Mood & Affect: euphoric and labile affect Thought Process: perseverating Thought Content: No suicidality, No homicidality and No hallucination(s) Memory / Cognition: memory grossly intact Skin Rashes: no rashes MDM MDM MDM Narrative Medical decision making narrative: EKG was obtained. On my interpretation, it showed a normal sinus rhythm with a rate of 93. UT interval, QRS interval, and QTc intervals were all normal. [place] was normal. There are no acute ST or T wave changes. CBC and basic metabolic profile were within normal limits. Serum alcohol level was normal. Urine tox screen was ordered and is pending. Patient is feeling better. Patient is not suicidal or homicidal. Staff reports that this is typical for the patient. He is not a danger to himself or anyone else. He will be discharged home. He will follow up with crisis counseling. Lab Data Labs: Laboratory Results - last 24 hr 07/26/21 07/26/21 07/26/21 04:23 04:23 04:23 WBC 6.5 RBC 4.34 L Hgb 12.5 L Hct 35.8 L MCV 82.5 MCH 28.8 MCHC 34.9 RDW Std Deviation 40.4 RDW Coeff of Vicente 13.3 Plt Count 219 MPV 10.5 Immature Gran % (Auto) 0.500 Neut % (Auto) 76.5 H Lymph % (Auto) 13.0 L [place] % (Auto) 7.7 Eos % (Auto) 1.7 Baso % (Auto) 0.6 Absolute Neuts (auto) 4.9 Absolute Lymphs (auto) 0.84 Nucleated RBC % 0 Sodium 123 L Potassium 4.1 Chloride 87 L Carbon Dioxide 25.0 Anion Gap 11 BUN 20 H Creatinine 0.84 Estim Creat Clear Calc 91.73 Est GFR (MDRD) Af Amer 118 Est GFR (MDRD) Non-Af 98 BUN/Creatinine Ratio 23.8 H Glucose 126 H Calcium 9.2 Ethyl Alcohol 4.0 EKG Initial EKG: Attestation: I personally reviewed and interpreted this EKG as follows: Interpretation: Sinus Rhythm (93) and No Acute Injury Pattern Discharge Plan Triage Chief Complaint: Mental Health ED Provider: Hemant Ma Dx/Rx/DC Orders Clinical Impression: Schizophrenia Instructions: ED Schizophrenia, General Prescriptions: No Action metformin 500 MG tablet 850 mg PO TID RF: 0 aspirin 325 MG tablet 325 mg PO DAILY@0800 RF: 0 albuterol sulfate [Ventolin HFA] 1 INHALER inhaler 2 puff inhalation Q4H PRN PRN (Reason: Sob &/Or Wheezing) RF: 0 omeprazole 20 MG tablet,delayed release (DR/EC) 20 mg PO DAILY RF: 0 amlodipine 5 MG tablet 10 mg PO DAILY RF: 0 levothyroxine 25 MCG tablet 25 mcg PO DAILY RF: 0 (DME) blood sugar diagnostic 1 EACH strip 1 ea MC BID Qty: 100 RF: 0 (DME) pen needle, diabetic, safety 1 EACH needle 1 ea MISCELL. UD Qty: 1 RF: 0 (DME) blood-glucose meter 1 EACH kit 1 ea MC BID Qty: 1 RF: 0 pioglitazone 15 mg tablet 15 mg PO DAILY RF: 0 fexofenadine 180 mg tablet 180 mg PO DAILY RF: 0 Januvia 100 mg tablet 100 mg PO DAILY RF: 0 benztropine 1 mg Tablet 1 mg PO DAILY RF: 0 oxcarbazepine 600 mg Tablet 600 mg PO BID RF: 0 ziprasidone HCl [Geodon] 60 mg Capsule 60 mg PO BID RF: 0 risperidone 2 mg tablet 4 mg PO BID RF: 0 Primary Care Provider: Dhara Taylor Referrals: Counseling,Center [GROUP OF PHYSICIANS] - 3-5 Days Dhara Taylor DO [Primary Care Provider] - 5-7 Days Disposition Disposition: Home, Self Care
[2021-07-26 06:29] VITALS: PULSE 72
== END 2021-07-26 07:46 | disposition home or self-care (01) ==
PROVIDERS: Emergency Provider Emergency Medicine; PCP Internal Medicine
DX: F20.9 Schizophrenia, unspecified (principal); F41.9 Anxiety disorder, unspecified; J44.9 Chronic obstructive pulmonary disease, unspecified; F32.A Depression, unspecified; E11.9 Type 2 diabetes mellitus without complications; F17.210 Nicotine dependence, cigarettes, uncomplicated; Z79.84 Long term (current) use of oral hypoglycemic drugs; Z79.51 Long term (current) use of inhaled steroids; Z79.899 Other long term (current) drug therapy
CPT/HCPCS: 80048; 82077; 85025; 87426; 93005; 99284

== ENCOUNTER 2021-07-28 04:01 | Emergency (ER) | payer MEDICARE, MEDICAID, SELFPAY ==
[2021-07-28 04:05] VITALS: BP 157/97; PULSE 102; RESP 16; TEMP 36.3; O2SAT 99; BMI 27.9
--- NOTE | 2021-07-28 04:28 | EKG12_ITS ---
Test Reason : SUICIDAL Blood Pressure : / mmHG Vent. Rate : 094 BPM Atrial Rate : 094 BPM P-R Int : 158 ms QRS Dur : 084 ms QT Int : 332 ms P-R-T Axes : 089 072 078 degrees QTc Int : 415 ms Normal sinus rhythm Normal ECG Confirmed by MATILDE ALSTON, WILFRID ([id number]), editorial assistant FIDEL LA ([id number]) on 08/01/2021 10:33:40 AM Referred By: YOBANY Confirmed By:WILFRID CLAYTON MD
[2021-07-28 04:46] LABS: Absolute Lymphocyte Count 0.75 X10^3/uL (0.83-4.51); Basophil# 0.04 X10^3/uL; Basophil% 0.7 % (0-1); Eosinophil# 0.12 X10^3/uL; Eosinophils% 2.2 % (0-5); Hematocrit 35.6 % (40-54); Hemoglobin 12.1 g/dL (13.0-16.5); Lymphocyte # 0.75 X10^3/ul (0.83-4.51); Mean Corpuscular Hgb 28.7 pg (27.0-32.0); Mean Corpuscular Volume 84.4 fL (80-94); Mean Platelet Vol. 10.7 fl (6.2-12.0); Monocyte# 0.43 X10^3/uL; Monocyte% 8.1 % (0-10); NRBC Flagged by Analyzer 0 % (0-5); Neutrophil # 3.98 X10^3/uL (2.7-7.7); Neutrophil % 74.6 % (47-70); Platelet Count 223 K/mm3 (150-450); RBC Distribution Width CV 13.4 % (11.6-14.6); RBC Distribution Width SD 41.4 fl (35.1-43.9); Red Blood Count 4.22 M/mm3 (4.6-6.2); White Blood Count 5.3 K/mm3 (4.4-11.0)
--- NOTE | 2021-07-28 04:54 | ED.RN ---
NO SITTER NEEDED AT THIS TIME PER DR. HAYWOOD
--- NOTE | 2021-07-28 04:56 | EX.ED.DYSGE1 ---
HPI <Dr. Bassem Jean-Baptiste, DO - Last Filed: 07/28/21 07:17> History of Present Illness Chief Complaint: Suicidal Narrative Narrative: Patient is a 65-year-old male with past medical history of schizophrenia. He was brought in by police this evening secondary to suicidal ideation. Please report that they were called because he had told multiple people throughout the day that he wanted to take his pen and stab himself in the head. He reports that he wanted to do this because he did not want to stay in the house where he is and he is afraid that the [facility]/government is out to get him. Therefore with his paranoia and suicidal ideation police did bring the patient in for further medical evaluation PFSH <Dr. Bassem Jean-Baptiste, - Last Filed: 07/28/21 07:17> PFS Medical History Anxiety COPD (chronic obstructive pulmonary disease) Depression Diabetes Schizophrenia Smoker Home Medications albuterol sulfate [Ventolin Hfa (SP)] 2 puff INHALATION Q4H PRN PRN 03/03/19 [History Last Taken Unknown] aspirin 325 mg PO DAILY@0800 03/03/19 [History Last Taken Unknown] metformin 850 mg PO TID 03/03/19 [History Last Taken Unknown] omeprazole 20 mg PO DAILY 03/03/19 [History Last Taken Unknown] amlodipine 10 mg PO DAILY 11/07/19 [History Last Taken Unknown] levothyroxine 25 mcg PO DAILY 11/07/19 [History Last Taken Unknown] blood sugar diagnostic #100 strip 09/16/20 [Rx Last Taken Unknown] blood-glucose meter #1 kit 09/16/20 [Rx Last Taken Unknown] pen needle, diabetic, safety #1 box 09/16/20 [Rx Last Taken Unknown] fexofenadine 180 mg PO DAILY 04/14/21 [History Last Taken Unknown] pioglitazone 15 mg PO DAILY 04/14/21 [History Last Taken Unknown] sitagliptin [Januvia] 100 mg PO DAILY 04/14/21 [History Last Taken Unknown] benztropine 1 mg PO DAILY 05/25/21 [History Last Taken Unknown] oxcarbazepine 600 mg PO BID 05/25/21 [History Last Taken Unknown] ziprasidone HCl [Geodon] 60 mg PO BID 05/25/21 [History Last Taken Unknown] risperidone 4 mg PO BID 06/29/21 [History Last Taken Unknown] Allergy/AdvReac Type Severity Reaction Status Date / Time sulfamethoxazole Allergy Mild Unknown Verified 07/28/21 04:02 trimethoprim Allergy Mild Unknown Verified 07/28/21 04:02 Penicillins [PCN] Allergy Unknown Verified 07/28/21 04:02 Social History Smoking Status: Current every day smoker tobacco type: cigarettes substance use type: does not use ROS <Dr. Bassem Jean-Baptiste, DO - Last Filed: 07/28/21 07:17> ROS ED Constitutional Constitutional ED: Denies chills or fever(s) ENT ENT ED: Denies sore throat Cardiovascular Cardiovascular: Denies chest pain Respiratory/Chest Respiratory/Chest: Denies cough or dyspnea Gastrointestinal Gastrointestinal: Denies abdominal pain, diarrhea, nausea or vomiting Genitourinary Genitourinary ED: Denies dysuria Musculoskeletal Musculoskeletal: Denies myalgias Integumentary Denies rash Neurologic Neurologic: Denies headache(s) Psychiatric Psychiatric: Reports anxiety, auditory hallucinations, suicidal ideation and suicidal thoughts Hematologic/Lymphatic Hematologic/Lymphatic: Denies easy bleeding or easy bruising EXAM <Dr. Bassem Jean-Baptiste, DO - Last Filed: 07/28/21 07:17> Physical Exam Const Vital Signs: 07/28/21 04:05 07/28/21 05:11 Temperature 97.4 F L Temperature Source Temporal Pulse Rate 102 H Respiratory Rate 16 20 H Blood Pressure 157/97 H Blood Pressure Mean 117 Pulse Ox 99 Oxygen Delivery Method Room Air Room Air Positive well nourished, well developed and unkempt General Appearance ED: unkempt and well developed HEENT normocephalic Eyes PERRL and EOMs intact bilaterally Neck supple Resp normal respiratory effort and clear to auscultation bilaterally Cardio regular rate and regular rhythm GI normal to inspection, nondistended, normoactive bowel sounds, soft to palpation, non-tender, non-distended and no masses Auscultation: normoactive bowel sounds Palpation: soft Extremity normal to inspection, full ROM, no joint enlargement and no clubbing, cyanosis or edema Neuro CN's II-XII intact bilaterally, moves all extremities and no focal motor deficits Sensorium / Orientation: awake and alert Psych denies homicidal ideation; Negative for denies suicidal ideation Psych Narrative: Patient has paranoid delusions believing that the [employer] is out to get him as well as suicidal ideation with a plan for which he states he would take his bic pen and stab himself in the head Appearance: unkempt Attitude: paranoid Activity / Motor Behavior: disorganized Skin no rashes or lesions noted <Dr. Miky Ibrahim MD - Last Filed: 07/28/21 07:31> Physical Exam Const Vital Signs: 07/28/21 04:05 07/28/21 05:11 Temperature 97.4 F L Temperature Source Temporal Pulse Rate 102 H Respiratory Rate 16 20 H Blood Pressure 157/97 H Blood Pressure Mean 117 Pulse Ox 99 Oxygen Delivery Method Room Air Room Air MDM <Dr. Bassem Jean-Baptiste DO - Last Filed: 07/28/21 07:17> MDM MDM Narrative Medical decision making narrative: Patient was brought in by police secondary to repeated reports of suicidal ideation with a plan to friends. The patient does admit to saying he would stabbed himself in the head with his pen. He has a known history of schizophrenia and is also paranoid at this time talking about how the [employer] is out to get him. His labs show hyponatremia with a sodium of 124 per chart review reveals this is chronic in nature and therefore I do not feel it is clinically significant. With his suicidal ideation with plan and his paranoid schizophrenia I do feel he would benefit from evaluation by social work and possible psychiatric placement. Therefore at this time patient is medically cleared if deemed necessary for psychiatric placement and will be signed out to the oncoming provider pending social work evaluation. The patient does live in a custodial and I feel that if he requests to go back to the custodial or social work deems he is at his baseline and does not need placed this is a safe disposition as well Lab Data Attestation: I reviewed the patient's lab results. Labs: Laboratory Results - last 24 hr 07/28/21 07/28/21 07/28/21 04:39 04:39 04:39 WBC 5.3 RBC 4.22 L Hgb 12.1 L Hct 35.6 L MCV 84.4 MCH 28.7 MCHC 34.0 RDW Std Deviation 41.4 RDW Coeff of Vicente 13.4 Plt Count 223 MPV 10.7 Immature Gran % (Auto) 0.400 Neut % (Auto) 74.6 H Lymph % (Auto) 14.0 L [place] % (Auto) 8.1 Eos % (Auto) 2.2 Baso % (Auto) 0.7 Absolute Neuts (auto) 4.0 Absolute Lymphs (auto) 0.75 L Nucleated RBC % 0 Sodium 124 L Potassium 4.2 Chloride 88 L Carbon Dioxide 27.0 Anion Gap 9 BUN 21 H Creatinine 0.84 Estim Creat Clear Calc 91.73 Est GFR (MDRD) Af Amer 119 Est GFR (MDRD) Non-Af 98 BUN/Creatinine Ratio 25.1 H Glucose 138 H Calcium 8.8 Urine Color Urine Clarity Urine pH Ur Specific [place] Urine Protein Urine Glucose (UA) Urine Ketones Urine Occult Blood Urine Nitrite Urine Bilirubin Urine Urobilinogen Ur Leukocyte Esterase Urine RBC Urine WBC Ur Squamous Epith Cells Urine Bacteria Urine Mucus Salicylates < 1.7 L Urine Opiates Screen Urine Methadone Screen Acetaminophen < 2.0 L Ur Barbiturates Screen Ur Phencyclidine Scrn Ur Amphetamines Screen U Methamphetamin-MDMA U Benzodiazepines Scrn Urine Cocaine Screen U Cannabinoids Screen Ur Drug Screen Comment Ethyl Alcohol 14.0 07/28/21 07/28/21 05:35 05:35 WBC RBC Hgb Hct MCV MCH MCHC RDW Std Deviation RDW Coeff of Vicente Plt Count MPV Immature Gran % (Auto) Neut % (Auto) Lymph % (Auto) [place] % (Auto) Eos % (Auto) Baso % (Auto) Absolute Neuts (auto) Absolute Lymphs (auto) Nucleated RBC % Sodium Potassium Chloride Carbon Dioxide Anion Gap BUN Creatinine Estim Creat Clear Calc Est GFR (MDRD) Af Amer Est GFR (MDRD) Non-Af BUN/Creatinine Ratio Glucose Calcium Urine Color Yellow Urine Clarity Clear Urine pH 6.0 Ur Specific [place] 1.010 Urine Protein 30 H Urine Glucose (UA) 50 H Urine Ketones Negative Urine Occult Blood Negative Urine Nitrite Negative Urine Bilirubin Negative Urine Urobilinogen Normal Ur Leukocyte Esterase Negative Urine RBC 0 SEEN Urine WBC 0 SEEN Ur Squamous Epith Cells 0 SEEN Urine Bacteria 0 SEEN Urine Mucus 0 SEEN Salicylates Urine Opiates Screen NEGATIVE Urine Methadone Screen NEGATIVE Acetaminophen Ur Barbiturates Screen NEGATIVE Ur Phencyclidine Scrn NEGATIVE Ur Amphetamines Screen NEGATIVE U Methamphetamin-MDMA NEGATIVE U Benzodiazepines Scrn NEGATIVE Urine Cocaine Screen NEGATIVE U Cannabinoids Screen NEGATIVE Ur Drug Screen Comment Ethyl Alcohol <Dr. Miky Patrice, MD - Last Filed: 07/28/21 07:31> [facility] Lab Data Labs: Laboratory Results - last 24 hr 07/28/21 07/28/21 07/28/21 04:39 04:39 04:39 WBC 5.3 RBC 4.22 L Hgb 12.1 L Hct 35.6 L MCV 84.4 MCH 28.7 MCHC 34.0 RDW Std Deviation 41.4 RDW Coeff of Vicente 13.4 Plt Count 223 MPV 10.7 Immature Gran % (Auto) 0.400 Neut % (Auto) 74.6 H Lymph % (Auto) 14.0 L [place] % (Auto) 8.1 Eos % (Auto) 2.2 Baso % (Auto) 0.7 Absolute Neuts (auto) 4.0 Absolute Lymphs (auto) 0.75 L Nucleated RBC % 0 Sodium 124 L Potassium 4.2 Chloride 88 L Carbon Dioxide 27.0 Anion Gap 9 BUN 21 H Creatinine 0.84 Estim Creat Clear Calc 91.73 Est GFR (MDRD) Af Amer 119 Est GFR (MDRD) Non-Af 98 BUN/Creatinine Ratio 25.1 H Glucose 138 H Calcium 8.8 Urine Color Urine Clarity Urine pH Ur Specific [place] Urine Protein Urine Glucose (UA) Urine Ketones Urine Occult Blood Urine Nitrite Urine Bilirubin Urine Urobilinogen Ur Leukocyte Esterase Urine RBC Urine WBC Ur Squamous Epith Cells Urine Bacteria Urine Mucus Salicylates < 1.7 L Urine Opiates Screen Urine Methadone Screen Acetaminophen < 2.0 L Ur Barbiturates Screen Ur Phencyclidine Scrn Ur Amphetamines Screen U Methamphetamin-MDMA U Benzodiazepines Scrn Urine Cocaine Screen U Cannabinoids Screen Ur Drug Screen Comment Ethyl Alcohol 14.0 07/28/21 07/28/21 05:35 05:35 WBC RBC Hgb Hct MCV MCH MCHC RDW Std Deviation RDW Coeff of Vicente Plt Count MPV Immature Gran % (Auto) Neut % (Auto) Lymph % (Auto) [place] % (Auto) Eos % (Auto) Baso % (Auto) Absolute Neuts (auto) Absolute Lymphs (auto) Nucleated RBC % Sodium Potassium Chloride Carbon Dioxide Anion Gap BUN Creatinine Estim Creat Clear Calc Est GFR (MDRD) Af Amer Est GFR (MDRD) Non-Af BUN/Creatinine Ratio Glucose Calcium Urine Color Yellow Urine Clarity Clear Urine pH 6.0 Ur Specific [place] 1.010 Urine Protein 30 H Urine Glucose (UA) 50 H Urine Ketones Negative Urine Occult Blood Negative Urine Nitrite Negative Urine Bilirubin Negative Urine Urobilinogen Normal Ur Leukocyte Esterase Negative Urine RBC 0 SEEN Urine WBC 0 SEEN Ur Squamous Epith Cells 0 SEEN Urine Bacteria 0 SEEN Urine Mucus 0 SEEN Salicylates Urine Opiates Screen NEGATIVE Urine Methadone Screen NEGATIVE Acetaminophen Ur Barbiturates Screen NEGATIVE Ur Phencyclidine Scrn NEGATIVE Ur Amphetamines Screen NEGATIVE U Methamphetamin-MDMA NEGATIVE U Benzodiazepines Scrn NEGATIVE Urine Cocaine Screen NEGATIVE U Cannabinoids Screen NEGATIVE Ur Drug Screen Comment Ethyl Alcohol Discharge Plan Triage Chief Complaint: Suicidal ED Provider: Bassem Jean-Baptiste Dx/Rx/DC Orders Clinical Impression: Schizophrenia Instructions: ED Schizophrenia, General Prescriptions: No Action metformin 500 MG tablet 850 mg PO TID RF: 0 aspirin 325 MG tablet 325 mg PO DAILY@0800 RF: 0 albuterol sulfate [Ventolin HFA] 1 INHALER inhaler 2 puff inhalation Q4H PRN PRN (Reason: Sob &/Or Wheezing) RF: 0 omeprazole 20 MG tablet,delayed release (DR/EC) 20 mg PO DAILY RF: 0 amlodipine 5 MG tablet 10 mg PO DAILY RF: 0 levothyroxine 25 MCG tablet 25 mcg PO DAILY RF: 0 (DME) blood sugar diagnostic 1 EACH strip 1 ea MC BID Qty: 100 RF: 0 (DME) pen needle, diabetic, safety 1 EACH needle 1 ea MISCELL. UD Qty: 1 RF: 0 (DME) blood-glucose meter 1 EACH kit 1 ea MC BID Qty: 1 RF: 0 pioglitazone 15 mg tablet 15 mg PO DAILY RF: 0 fexofenadine 180 mg tablet 180 mg PO DAILY RF: 0 Januvia 100 mg tablet 100 mg PO DAILY RF: 0 benztropine 1 mg Tablet 1 mg PO DAILY RF: 0 oxcarbazepine 600 mg Tablet 600 mg PO BID RF: 0 ziprasidone HCl [Geodon] 60 mg Capsule 60 mg PO BID RF: 0 risperidone 2 mg tablet 4 mg PO BID RF: 0 Primary Care Provider: Dhara Taylor Referrals: psychiatrist, your [Other] - As soon as possible Dhara Taylor, DO [Primary Care Provider] - Disposition Disposition: Home, Self Care
[2021-07-28 05:02] LABS: Anion Gap 9 (5-15); BUN 21 mg/dL (7-18); BUN/Creat Ratio 25.1 RATIO (10-20); Calcium,Total 8.8 mg/dL (8.5-10.1); Chloride 88 mmol/L (98-107); Creatinine, Serum 0.84 mg/dL (0.70-1.30); EST Glomerular Filtration Rate 98 mL/min (>60); Est Glom Filt Rate - Afr Amer 119 mL/min (>60); Estimated Creatinine Clearance 91.73 ml/min; Glucose 138 mg/dL (74-106); Potassium 4.2 mmol/L (3.5-5.1); Sodium Level 124 mmol/L (136-145)
[2021-07-28 05:04] LABS: Acetaminophen (Tylenol) Level < 2.0 ug/mL (10.0-30.0); Salicylate < 1.7 mg/dL (2.8-20.0)
[2021-07-28 05:11] VITALS: RESP 20
[2021-07-28 05:40] LABS: Bacteria 0 SEEN /hpf (None Seen); Mucous, Urine 0 SEEN /hpf (<or=2+); Red Blood Cells-Urine 0 SEEN /hpf (0-5); Squamous Epithelial Cells - UA 0 SEEN /hpf (0-5); White Blood Cells 0 SEEN /hpf (0-5)
[2021-07-28 05:43] LABS: Color, Urine Yellow (Yellow); Glucose, Dipstick 50 mg/dl (Normal); Ketone-Dipstick Negative (Negative); Leukocyte Esterase-Dipstick Negative /ul (Negative); Nitrite-Dipstick Negative (Negative); Occult Blood-Urine Negative /ul (Negative); Protein-Dipstick 30 mg/dl (Negative); Urine Bilirubin Dipstick Negative (Negative); Urine Clarity Clear (Clear); Urine Urobilinogen Normal (Normal)
[2021-07-28 07:17] LABS: Amphetamine Urine VISTA NEGATIVE (<1000 ng/mL); Barbiturate Urine VISTA NEGATIVE (< 200 ng/mL); Benzodiazepine Urine VISTA NEGATIVE (< 200 ng/mL); Cocaine Urine VISTA NEGATIVE (< 300 ng/mL); Ecstacy Urine VISTA NEGATIVE (< 500 ng/mL); Methadone Urine VISTA NEGATIVE (< 300 ng/mL); PCP Urine VISTA NEGATIVE (< 25 ng/mL); THC Urine VISTA NEGATIVE (< 50 ng/mL); Vista UDS pH Range 5
[2021-07-28 08:23] VITALS: BP 128/73; PULSE 73; RESP 16; O2SAT 98
== END 2021-07-28 09:00 | disposition home or self-care (01) ==
PROVIDERS: Emergency Medicine; Emergency Provider Emergency Medicine; PCP Internal Medicine
DX: F20.9 Schizophrenia, unspecified (principal); J44.9 Chronic obstructive pulmonary disease, unspecified; E11.9 Type 2 diabetes mellitus without complications; F41.9 Anxiety disorder, unspecified; F32.A Depression, unspecified; F17.210 Nicotine dependence, cigarettes, uncomplicated; Z79.51 Long term (current) use of inhaled steroids; Z79.899 Other long term (current) drug therapy
CPT/HCPCS: 36415; 80048; 80307; 80329; 81001; 82077; 85025; 93005; 99283; G0480

== ENCOUNTER 2021-07-29 13:40 | Emergency (ER) | payer MEDICARE, MEDICAID, SELFPAY ==
[2021-07-29 14:12] VITALS: BP 159/78; PULSE 99; RESP 22; TEMP 36.7; O2SAT 95; BMI 31.1
[2021-07-29 15:32] VITALS: RESP 16
--- NOTE | 2021-07-29 15:50 | EX.ED.DYSGE1 ---
HPI History of Present Illness Chief Complaint: Headache Detail of Chief Complaint: Patient's concerned that the [employer] will kill him if he is not extracted Informant: patient Onset/Context/Timing Onset: Today Context: Sudden Onset Timing: Continuous and Waxes and wanes Quality: Schizophrenia with paranoid ideation and numbness right side of head this m Location: Place of residence Current Severity: Moderate Maximum Severity: Severe Worsened by: Patient is concerned he is going to be extracted and killed by the [employer]. He Relieved by: Nothing Associated Symptoms Associated Symptoms: Per HPI Narrative Narrative: Patient is a 65-year-old male with history of chronic schizophrenia who presents with numbness to the right side of his head. He states he is concerned he had a stroke. He denies any visual, ocular alterations. No trouble speech or swallowing. Denies cardiac respiratory symptoms. No GI symptoms. He presently denies paresthesia, anesthesia motors. Denies trouble with balance. Patient is paranoid. He admits he is schizophrenic. He states because he is schizophrenic people do not like him and sent by [employer]. He is able to tell this because he practices the [employer] techniques of interrogation and intervention. Patient denies suicidal homicidal ideation. Prior similar symptoms: Yes Recent Illness/Hospitalization: Yes PFSH PFSH Medical History Anxiety COPD (chronic obstructive pulmonary disease) Depression Diabetes Schizophrenia Smoker Home Medications albuterol sulfate [Ventolin Hfa (SP)] 2 puff INHALATION Q4H PRN PRN 03/03/19 [History Last Taken Unknown] aspirin 325 mg PO DAILY@0800 03/03/19 [History Last Taken Unknown] metformin 850 mg PO TID 03/03/19 [History Last Taken Unknown] omeprazole 20 mg PO DAILY 03/03/19 [History Last Taken Unknown] amlodipine 10 mg PO DAILY 11/07/19 [History Last Taken Unknown] levothyroxine 25 mcg PO DAILY 11/07/19 [History Last Taken Unknown] blood sugar diagnostic #100 strip 09/16/20 [Rx Last Taken Unknown] blood-glucose meter #1 kit 09/16/20 [Rx Last Taken Unknown] pen needle, diabetic, safety #1 box 09/16/20 [Rx Last Taken Unknown] fexofenadine 180 mg PO DAILY 04/14/21 [History Last Taken Unknown] pioglitazone 15 mg PO DAILY 04/14/21 [History Last Taken Unknown] sitagliptin [Januvia] 100 mg PO DAILY 04/14/21 [History Last Taken Unknown] benztropine 1 mg PO DAILY 05/25/21 [History Last Taken Unknown] oxcarbazepine 600 mg PO BID 05/25/21 [History Last Taken Unknown] ziprasidone HCl [Geodon] 60 mg PO BID 05/25/21 [History Last Taken Unknown] risperidone 4 mg PO BID 06/29/21 [History Last Taken Unknown] Allergy/AdvReac Type Severity Reaction Status Date / Time sulfamethoxazole Allergy Mild Unknown Verified 07/29/21 15:31 trimethoprim Allergy Mild Unknown Verified 07/29/21 15:31 Penicillins [PCN] Allergy Unknown Verified 07/29/21 15:31 Social History (Updated 07/29/21 @ 15:[address] Viral Nelson MD) household members: none Smoking Status: Current every day smoker tobacco type: cigarettes alcohol intake: current alcohol intake frequency: other substance use type: does not use ROS ROS ED Constitutional Constitutional ED: Denies chills, fever(s), subjective, sweats or weight loss Eyes Eyes: Denies blurry vision, change in vision or diplopia ENT ENT ED: Reports other Details: He denies ringing in his ears or decreased hearing. ; Denies ear pain, rhinorrhea or sore throat Cardiovascular Cardiovascular: Denies chest pain, palpitations or racing heartbeat Respiratory/Chest Respiratory/Chest: Denies cough, dyspnea or dyspnea on exertion Gastrointestinal Gastrointestinal: Denies abdominal pain, diarrhea, nausea or vomiting Genitourinary Genitourinary ED: Denies dysuria, hematuria or urinary frequency Musculoskeletal Musculoskeletal: Denies arthralgias, back pain or neck pain Integumentary Denies rash Neurologic Neurologic: Reports paresthesias; Denies headache(s) Psychiatric Psychiatric: Reports other Details: Admits he is schizophrenic. ; Denies anxiety, depression, suicidal ideation or suicidal thoughts Allergic/Immunologic Allergic/Immunologic ED: Denies mouth swelling or urticaria EXAM Physical Exam Const Vital Signs: 07/29/21 14:12 07/29/21 15:32 Temperature 98.1 F Temperature Source Temporal Pulse Rate 99 Respiratory Rate 22 H 16 Blood Pressure 159/78 H Blood Pressure Mean 105 Pulse Ox 95 Oxygen Delivery Method Room Air Positive well nourished, well developed and unkempt General Appearance ED: unkempt, well developed and NAD; Negative for cyanotic or diaphoretic HEENT Denies TM's clear HEENT Narrative: Ears normal. Head is atraumatic normocephalic. Tympanic Membrane ED: Negative for TM's clear Eyes PERRL and EOMs intact bilaterally General Eye ED: Negative for pale conjunctiva or scleral icterus Neck no lymphadenopathy, supple and no JVD Resp normal respiratory effort Cardio regular rate, regular rhythm, S1 normal heart sound, S2 normal heart sound and no murmurs GI normal to inspection, nondistended, normoactive bowel sounds, non-tender and non-distended Palpation: soft Back/Spine no CVA tenderness Extremity normal to inspection General Extremety ED: Negative for edema or tenderness General Extremity: Negative for edema Neuro oriented x3, CN's II-XII intact bilaterally and no sensory deficits noted Neuro Narrative: There is no dysmetria. Sensorium / Orientation: alert Motor Exam: strength 5/5 throughout Psych Negative for mental status grossly normal Psych Narrative: Paranoid ideation and hallucinations. Patient is at his baseline. Appearance: unkempt Skin no rashes or lesions noted and no wounds MDM MDM MDM Narrative Medical decision making narrative: Patient with exacerbation of schizophrenia with paranoid ideation. There is no evidence or concern for stroke. Since there is no life-threatening emergency and no objective findings patient was discharged home Discharge Plan Triage Chief Complaint: Headache ED Provider: Viral Nelson Dx/Rx/DC Orders Clinical Impression: Schizophrenia, paranoid, chronic Instructions: ED Schizophrenia, Paranoid Type Prescriptions: No Action metformin 500 MG tablet 850 mg PO TID RF: 0 aspirin 325 MG tablet 325 mg PO DAILY@0800 RF: 0 albuterol sulfate [Ventolin HFA] 1 INHALER inhaler 2 puff inhalation Q4H PRN PRN (Reason: Sob &/Or Wheezing) RF: 0 omeprazole 20 MG tablet,delayed release (DR/EC) 20 mg PO DAILY RF: 0 amlodipine 5 MG tablet 10 mg PO DAILY RF: 0 levothyroxine 25 MCG tablet 25 mcg PO DAILY RF: 0 (DME) blood sugar diagnostic 1 EACH strip 1 ea MC BID Qty: 100 RF: 0 (DME) pen needle, diabetic, safety 1 EACH needle 1 ea MISCELL. UD Qty: 1 RF: 0 (DME) blood-glucose meter 1 EACH kit 1 ea MC BID Qty: 1 RF: 0 pioglitazone 15 mg tablet 15 mg PO DAILY RF: 0 fexofenadine 180 mg tablet 180 mg PO DAILY RF: 0 Januvia 100 mg tablet 100 mg PO DAILY RF: 0 benztropine 1 mg Tablet 1 mg PO DAILY RF: 0 oxcarbazepine 600 mg Tablet 600 mg PO BID RF: 0 ziprasidone HCl [Geodon] 60 mg Capsule 60 mg PO BID RF: 0 risperidone 2 mg tablet 4 mg PO BID RF: 0 Primary Care Provider: Dhara Taylor Referrals: Counseling,Center [GROUP OF PHYSICIANS] - 3-5 Days Dhara Taylor DO [Primary Care Provider] - Disposition Disposition: Home, Self Care
[2021-07-29 16:07] VITALS: BP 157/87; PULSE 90; RESP 16
== END 2021-07-29 16:10 | disposition home or self-care (01) ==
PROVIDERS: Emergency Provider Emergency Medicine; PCP Internal Medicine
DX: F20.0 Paranoid schizophrenia (principal); J44.9 Chronic obstructive pulmonary disease, unspecified; E11.9 Type 2 diabetes mellitus without complications; F41.9 Anxiety disorder, unspecified; F32.A Depression, unspecified; F17.210 Nicotine dependence, cigarettes, uncomplicated; Z79.51 Long term (current) use of inhaled steroids; Z79.84 Long term (current) use of oral hypoglycemic drugs; Z79.899 Other long term (current) drug therapy
CPT/HCPCS: 99284

== ENCOUNTER 2021-08-03 03:55 | Emergency (ER) | payer MEDICARE, MEDICAID, SELFPAY ==
[2021-08-03 03:57] VITALS: BP 181/85; PULSE 98; RESP 18; TEMP 36.1; O2SAT 97; BMI 28.4
[2021-08-03 04:06] VITALS: BP 181/85; PULSE 97; RESP 18; TEMP 36.1; O2SAT 98
--- NOTE | 2021-08-03 04:13 | RAD_ITS ---
STUDY: X-RAY CHEST REASON FOR EXAM: Male, 65 years old. cough TECHNIQUE: Single AP portable view of the chest. COMPARISON: None. FINDINGS: The lungs are clear and expanded. There is no demonstrated pleural abnormality. Normal size heart. Normal mediastinum and jose. Normal visualized pulmonary arteries. Normal visualized aortic arch and descending thoracic aorta. There are diffuse degenerative changes of the visualized thoracic spine. There is degenerative osteoarthritis of the bilateral shoulders. There is no demonstrated abnormality of the visualized soft tissue structures of the upper abdomen. RAD/Chest 1 View (Portable) IMPRESSION: Degenerative changes, as described above. No demonstrated acute cardiopulmonary process. Electronically Signed: Mary Kate Shafer MD at 5:31 EDT Tel , Service support ,
--- NOTE | 2021-08-03 04:14 | EX.ED.DYSGE1 ---
HPI History of Present Illness Chief Complaint: Dizziness Informant: patient Narrative Narrative: Patient tells me that he is being poisoned. Some but he is either putting medicine or poison in his white pill or in his pink lemonade. He does not think this is a [place] scheme but he thinks the [employer] might be behind it. He states it is causing him to have trouble functioning. He states he cannot walk but immediately after stating this he states he needs to go to the bathroom. He gets up from the bed by himself and walks to the bathroom with absolute steadiness and strength. He is not having headaches. He states he has a little cough but is just allergies. He is not short of breath. He really denies all specific findings. Patient does have a history of paranoid schizophrenia. Evidently he has statements such as this frequently. He is not suicidal or homicidal. He does not want to be poisoned. PFSH PFSH Medical History Anxiety COPD (chronic obstructive pulmonary disease) Depression Diabetes Schizophrenia Smoker Home Medications albuterol sulfate [Ventolin Hfa (SP)] 2 puff INHALATION Q4H PRN PRN 03/03/19 [History Last Taken Unknown] aspirin 325 mg PO DAILY@0800 03/03/19 [History Last Taken Unknown] metformin 850 mg PO TID 03/03/19 [History Last Taken Unknown] omeprazole 20 mg PO DAILY 03/03/19 [History Last Taken Unknown] amlodipine 10 mg PO DAILY 11/07/19 [History Last Taken Unknown] levothyroxine 25 mcg PO DAILY 11/07/19 [History Last Taken Unknown] blood sugar diagnostic #100 strip 09/16/20 [Rx Last Taken Unknown] blood-glucose meter #1 kit 09/16/20 [Rx Last Taken Unknown] pen needle, diabetic, safety #1 box 09/16/20 [Rx Last Taken Unknown] fexofenadine 180 mg PO DAILY 04/14/21 [History Last Taken Unknown] pioglitazone 15 mg PO DAILY 04/14/21 [History Last Taken Unknown] sitagliptin [Januvia] 100 mg PO DAILY 04/14/21 [History Last Taken Unknown] benztropine 1 mg PO DAILY 05/25/21 [History Last Taken Unknown] oxcarbazepine 600 mg PO BID 05/25/21 [History Last Taken Unknown] ziprasidone HCl [Geodon] 60 mg PO BID 05/25/21 [History Last Taken Unknown] risperidone 4 mg PO BID 06/29/21 [History Last Taken Unknown] Allergy/AdvReac Type Severity Reaction Status Date / Time sulfamethoxazole Allergy Mild Unknown Verified 07/29/21 15:31 trimethoprim Allergy Mild Unknown Verified 07/29/21 15:31 Penicillins [PCN] Allergy Unknown Verified 07/29/21 15:31 Social History household members: none Smoking Status: Current every day smoker tobacco type: cigarettes alcohol intake: current alcohol intake frequency: other substance use type: does not use ROS ROS ED Constitutional Constitutional ED: Denies fever(s) Eyes Eyes: Denies blurry vision or change in vision ENT ENT ED: Denies rhinorrhea Cardiovascular Cardiovascular: Denies chest pain Respiratory/Chest Respiratory/Chest: Reports cough; Denies dyspnea or sputum Gastrointestinal Gastrointestinal: Denies abdominal pain, diarrhea, nausea or vomiting Genitourinary Genitourinary ED: Denies dysuria, hematuria or urinary frequency Musculoskeletal Musculoskeletal: Denies myalgias Integumentary Denies rash Neurologic Neurologic: Denies headache(s), paresthesias or weakness Psychiatric Psychiatric: Reports other Details: See history of present illness. Endocrine Endocrinology: Denies polydipsia or polyuria Allergic/Immunologic Allergic/Immunologic ED: Denies urticaria EXAM Physical Exam Const Vital Signs: 08/03/21 03:57 08/03/21 04:06 08/03/21 05:59 Temperature 97 F L 97 F L Temperature Source Oral Oral Pulse Rate 98 97 Respiratory Rate 18 18 Respiratory Pattern Normal Blood Pressure 181/85 H 181/85 H Blood Pressure Mean 117 117 Pulse Ox 97 98 Oxygen Delivery Method Room Air Room Air Patient is comfortable. He carries on normal conversation. He is not dyspneic. He has a very stable gait. Positive well nourished and well developed General Appearance ED: well developed and NAD HEENT Negative for trauma or tenderness Eyes General Eye ED: Negative for pale conjunctiva or scleral icterus Neck no JVD Resp normal respiratory effort Resp Narrative: Patient does have a very slight expiratory wheeze. No coughing while I am in the room. Auscultation: wheezes; Negative for rales or rhonchi Cardio regular rate and regular rhythm GI normal to inspection, nondistended, normoactive bowel sounds and non-tender Palpation: soft Back/Spine no CVA tenderness Neuro Sensorium / Orientation: alert Psych Psych Narrative: Patient does have some paranoid delusions. But his speech is not pressured. He is not aggressive in any way. He is not threatening. He does not want to hurt anybody. He does not want to hurt himself. Skin no rashes or lesions noted and no wounds MDM MDM MDM Narrative Medical decision making narrative: Patient CBC shows nonspecific mild anemia. Electrolytes show minimal decrease of sodium but this is not causing his symptoms. Ethanol is negative. Tox screen is pending. Urinalysis is pending. Chest x-ray shows some mild hyperinflation but no acute process. My concern is that this is the sixth visit in about 3 weeks for this patient. He has chronic schizophrenia and is but it seems like he may be getting progressively worse. We will have crisis see him. He does have a detention that he stays had but it seems like he is leaving there quite often to come to the emergency department with mostly complaints related to schizophrenia. He may need some stabilization. We are pending this eval at this time. I discussed aide the case with the crisis systems developer. She knows this patient quite well. She just evaluated him recently. She has talked with his detention. He evidently has been getting somewhat inappropriate with female staff. He has been leaving the facility. They are getting concerned about him also. They are getting to the point where they can manage him. For this reason we will work on placement. I think this patient is getting to the point where he is not really safe taking care of himself. I think his schizophrenia is starting to get a little out of control and he will need stabilization for his own safety and care. We are pending disposition and placement at this time. Lab Data Attestation: I reviewed the patient's lab results. Labs: Laboratory Results - last 24 hr 08/03/21 08/03/21 08/03/21 04:35 04:35 04:35 WBC 6.1 RBC 4.56 L Hgb 12.9 L Hct 38.4 L MCV 84.2 MCH 28.3 MCHC 33.6 RDW Std Deviation 42.0 RDW Coeff of Vicente 13.5 Plt Count 250 MPV 10.3 Immature Gran % (Auto) 0.300 Neut % (Auto) 67.8 Lymph % (Auto) 21.6 [place] % (Auto) 7.7 Eos % (Auto) 2.1 Baso % (Auto) 0.5 Absolute Neuts (auto) 4.1 Absolute Lymphs (auto) 1.32 Nucleated RBC % 0 Sodium 128 L Potassium 4.1 Chloride 91 L Carbon Dioxide 29.0 Anion Gap 8 BUN 17 Creatinine 0.80 Estim Creat Clear Calc 96.32 Est GFR (MDRD) Af Amer 126 Est GFR (MDRD) Non-Af 104 BUN/Creatinine Ratio 21.4 H Glucose 103 Calcium 9.2 Urine Opiates Screen Urine Methadone Screen Ur Barbiturates Screen Ur Phencyclidine Scrn Ur Amphetamines Screen U Methamphetamin-MDMA U Benzodiazepines Scrn Urine Cocaine Screen U Cannabinoids Screen Ur Drug Screen Comment Ethyl Alcohol < 3.0 08/03/21 05:55 WBC RBC Hgb Hct MCV MCH MCHC RDW Std Deviation RDW Coeff of Vicente Plt Count MPV Immature Gran % (Auto) Neut % (Auto) Lymph % (Auto) [place] % (Auto) Eos % (Auto) Baso % (Auto) Absolute Neuts (auto) Absolute Lymphs (auto) Nucleated RBC % Sodium Potassium Chloride Carbon Dioxide Anion Gap BUN Creatinine Estim Creat Clear Calc Est GFR (MDRD) Af Amer Est GFR (MDRD) Non-Af BUN/Creatinine Ratio Glucose Calcium Urine Opiates Screen NEGATIVE Urine Methadone Screen NEGATIVE Ur Barbiturates Screen NEGATIVE Ur Phencyclidine Scrn NEGATIVE Ur Amphetamines Screen NEGATIVE U Methamphetamin-MDMA NEGATIVE U Benzodiazepines Scrn NEGATIVE Urine Cocaine Screen NEGATIVE U Cannabinoids Screen NEGATIVE Ur Drug Screen Comment Ethyl Alcohol Radiography Diagnostic Testing: Clinical Impression(s) from Imaging Studies Chest X-Ray 08/03/21 04:13 IMPRESSION: Degenerative changes, as described above. No demonstrated acute cardiopulmonary process. Electronically Signed: Mary Kate Shafer MD at 5:31 EDT Tel , Service support , Discharge Plan Triage Chief Complaint: Dizziness ED Provider: Bryce Barber Dx/Rx/DC Orders Clinical Impression: Schizophrenia, Paranoia Prescriptions: No Action metformin 500 MG tablet 850 mg PO TID RF: 0 aspirin 325 MG tablet 325 mg PO DAILY@0800 RF: 0 albuterol sulfate [Ventolin HFA] 1 INHALER inhaler 2 puff inhalation Q4H PRN PRN (Reason: Sob &/Or Wheezing) RF: 0 omeprazole 20 MG tablet,delayed release (DR/EC) 20 mg PO DAILY RF: 0 amlodipine 5 MG tablet 10 mg PO DAILY RF: 0 levothyroxine 25 MCG tablet 25 mcg PO DAILY RF: 0 (DME) blood sugar diagnostic 1 EACH strip 1 ea MC BID Qty: 100 RF: 0 (DME) pen needle, diabetic, safety 1 EACH needle 1 ea MISCELL. UD Qty: 1 RF: 0 (DME) blood-glucose meter 1 EACH kit 1 ea MC BID Qty: 1 RF: 0 pioglitazone 15 mg tablet 15 mg PO DAILY RF: 0 fexofenadine 180 mg tablet 180 mg PO DAILY RF: 0 Januvia 100 mg tablet 100 mg PO DAILY RF: 0 benztropine 1 mg Tablet 1 mg PO DAILY RF: 0 oxcarbazepine 600 mg Tablet 600 mg PO BID RF: 0 ziprasidone HCl [Geodon] 60 mg Capsule 60 mg PO BID RF: 0 risperidone 2 mg tablet 4 mg PO BID RF: 0 Primary Care Provider: Dhara Taylor Referrals: Dhara Taylor DO [Primary Care Provider] - Disposition Disposition: Psychiatric Hospital or Unit
[2021-08-03 04:42] LABS: Absolute Lymphocyte Count 1.32 X10^3/uL (0.83-4.51); Absolute Neutrophil Count 4.1 X10^3/uL (2.0-7.7); Basophil# 0.03 X10^3/uL; Basophil% 0.5 % (0-1); Eosinophil# 0.13 X10^3/uL; Eosinophils% 2.1 % (0-5); Hematocrit 38.4 % (40-54); Hemoglobin 12.9 g/dL (13.0-16.5); Lymphocyte # 1.32 X10^3/ul (0.83-4.51); Lymphocyte % 21.6 % (19-41); Mean Corp Hgb Conc 33.6 g/dL (32-36); Mean Corpuscular Hgb 28.3 pg (27.0-32.0); Mean Corpuscular Volume 84.2 fL (80-94); Mean Platelet Vol. 10.3 fl (6.2-12.0); Monocyte# 0.47 X10^3/uL; Monocyte% 7.7 % (0-10); NRBC Flagged by Analyzer 0 % (0-5); Neutrophil # 4.13 X10^3/uL (2.7-7.7); Neutrophil % 67.8 % (47-70); Platelet Count 250 K/mm3 (150-450); RBC Distribution Width CV 13.5 % (11.6-14.6); Red Blood Count 4.56 M/mm3 (4.6-6.2); White Blood Count 6.1 K/mm3 (4.4-11.0)
[2021-08-03 04:55] LABS: Anion Gap 8 (5-15); BUN 17 mg/dL (7-18); BUN/Creat Ratio 21.4 RATIO (10-20); Calcium,Total 9.2 mg/dL (8.5-10.1); Chloride 91 mmol/L (98-107); EST Glomerular Filtration Rate 104 mL/min (>60); Est Glom Filt Rate - Afr Amer 126 mL/min (>60); Estimated Creatinine Clearance 96.32 ml/min; Glucose 103 mg/dL (74-106); Potassium 4.1 mmol/L (3.5-5.1); Sodium Level 128 mmol/L (136-145)
[2021-08-03 05:00] LABS: Alcohol, Blood (Medical)-Serum < 3.0 mg/dL
[2021-08-03 06:37] LABS: Amphetamine Urine VISTA NEGATIVE (<1000 ng/mL); Barbiturate Urine VISTA NEGATIVE (< 200 ng/mL); Benzodiazepine Urine VISTA NEGATIVE (< 200 ng/mL); Cocaine Urine VISTA NEGATIVE (< 300 ng/mL); Ecstacy Urine VISTA NEGATIVE (< 500 ng/mL); Methadone Urine VISTA NEGATIVE (< 300 ng/mL); PCP Urine VISTA NEGATIVE (< 25 ng/mL); THC Urine VISTA NEGATIVE (< 50 ng/mL); Vista UDS pH Range 7
--- NOTE | 2021-08-03 09:47 | EKG12_ITS ---
Test Reason : CLEARENCE Blood Pressure : / mmHG Vent. Rate : 088 BPM Atrial Rate : 088 BPM P-R Int : 170 ms QRS Dur : 076 ms QT Int : 352 ms P-R-T Axes : 085 075 083 degrees QTc Int : 425 ms Normal sinus rhythm Normal ECG Confirmed by PRAMOD ALSTON, BRENDA ([id number]), line maintainer FIDEL LA ([id number]) on 08/04/2021 1:46:40 PM Referred By: ELISE Confirmed By:BRENDA BENAVIDEZ MD
--- NOTE | 2021-08-03 11:10 | CM.ED ---
SW Note REI was advised by Vera, Crime Scene Investigator, that patient was accepted at [facility]. Accepting MD, Dr. Quigley. REI called Maria Elena at [facility] and updated her that patient has been accepted at [facility] and accepting MD's name and patient's unit and room number. No other issues or needs identified at this time. SW remains available. Plan: [facility] Janki VILLAGRAN
[2021-08-03 11:23] VITALS: BP 134/78; PULSE 72; RESP 16; TEMP 36.7; O2SAT 97
--- NOTE | 2021-08-03 11:49 | ED.RN ---
THIS RN ATTEMPTED TO CALL REPORTS, WAS PLACED ON HOLD X 8 MINUTES WITH NO ANSWER. UNABLE TO GIVE NURSE TO NURSE AT THIS TIME.
[2021-08-03 11:50] VITALS: BP 134/78; PULSE 72; RESP 16; TEMP 36.7; O2SAT 97
== END 2021-08-03 11:45 ==
PROVIDERS: Emergency Provider Emergency Medicine; PCP Internal Medicine
DX: F20.0 Paranoid schizophrenia (principal); J44.9 Chronic obstructive pulmonary disease, unspecified; E11.9 Type 2 diabetes mellitus without complications; F17.210 Nicotine dependence, cigarettes, uncomplicated; Z79.51 Long term (current) use of inhaled steroids; Z79.899 Other long term (current) drug therapy
CPT/HCPCS: 71045; 80048; 80307; 82077; 85025; 87426; 93005; 99285

== ENCOUNTER 2022-01-11 09:01 | Outpatient (CLI) | payer MEDICARE, MEDICAID, SELFPAY ==
[2022-01-11 09:36] LABS: Absolute Lymphocyte Count 0.83 X10^3/uL (0.83-4.51); Absolute Neutrophil Count 9.5 X10^3/uL (2.0-7.7); Basophil# 0.03 X10^3/uL; Basophil% 0.3 % (0-1); Eosinophils% 0.9 % (0-5); Hematocrit 42.9 % (40-54); Hemoglobin 13.6 g/dL (13.0-16.5); Lymphocyte # 0.83 X10^3/ul (0.83-4.51); Lymphocyte % 7.3 % (19-41); Mean Corp Hgb Conc 31.7 g/dL (32-36); Mean Corpuscular Hgb 26.5 pg (27.0-32.0); Mean Corpuscular Volume 83.5 fL (80-94); Mean Platelet Vol. 10.9 fl (6.2-12.0); Monocyte# 0.86 X10^3/uL; Monocyte% 7.5 % (0-10); NRBC Flagged by Analyzer 0 % (0-5); Neutrophil # 9.53 X10^3/uL (2.7-7.7); Neutrophil % 83.4 % (47-70); Platelet Count 346 K/mm3 (150-450); RBC Distribution Width CV 13.3 % (11.6-14.6); RBC Distribution Width SD 40.5 fl (35.1-43.9); Red Blood Count 5.14 M/mm3 (4.6-6.2); White Blood Count 11.4 K/mm3 (4.4-11.0)
[2022-01-11 10:06] LABS: ALB/GLOB Ratio 0.9 RATIO (0.9-2.4); AST(SGOT) 8 U/L (15-37); Alanine Aminotransfer ALT/SGPT 11 U/L (16-61); Albumin, Serum 3.1 g/dL (3.2-5.0); Alkaline Phosphatase 90 U/L (45-117); Anion Gap 2 (5-15); BUN 18 mg/dL (7-18); BUN/Creat Ratio 18.6 RATIO (10-20); Calcium,Total 9.3 mg/dL (8.5-10.1); Chloride 96 mmol/L (98-107); Creatinine, Serum 0.97 mg/dL (0.70-1.30); EST Glomerular Filtration Rate 83 mL/min (>60); Est Glom Filt Rate - Afr Amer 100 mL/min (>60); Globulin 3.4 g/dL (2.2-4.2); Glucose 194 mg/dL (74-106); Potassium 3.8 mmol/L (3.5-5.1); Protein, Total 6.5 g/dL (6.4-8.2); Sodium Level 134 mmol/L (136-145)
[2022-01-16 12:23] LABS: Calprotectin, Stool 60 ug/g (0-120)
[2022-01-19 09:37] LABS: Giardia Lamblia, Stool EIA NEGATIVE
== END 2022-01-11 23:59 | disposition home or self-care (01) ==
PROVIDERS: PCP Internal Medicine Infectious Disease; Visit Provider Nurse Practitioner Adult Health
DX: R19.7 Diarrhea, unspecified (principal); R60.0 Localized edema
CPT/HCPCS: 36415; 80053; 83630; 83993; 85025; 87177; 87209; 87329; 87493; 87506

== ENCOUNTER → 2022-02-13 | Outpatient (CLI) | payer MEDICARE, MEDICAID, SELFPAY ==
[2022-02-13 12:07] LABS: Erythrocyte Sedimentation Rate 12 mm/hr (0-20)
[2022-02-13 13:31] LABS: CRP < 2.90 mg/L (0.0-3.0)
== END | disposition home or self-care (01) ==
PROVIDERS: PCP Internal Medicine Infectious Disease; Visit Provider Nurse Practitioner Adult Health
DX: F25.0 Schizoaffective disorder, bipolar type (principal); F03.90 Unspecified dementia, unspecified severity, without behavioral disturbance, psychotic disturbance, mood disturbance, and anxiety; F03.91 Unspecified dementia, unspecified severity, with behavioral disturbance; J41.0 Simple chronic bronchitis; E11.9 Type 2 diabetes mellitus without complications; F32.9 Major depressive disorder, single episode, unspecified; I10 Essential (primary) hypertension; R91.1 Solitary pulmonary nodule; R91.8 Other nonspecific abnormal finding of lung field; F65.9 Paraphilia, unspecified; R60.0 Localized edema; J30.2 Other seasonal allergic rhinitis; E03.8 Other specified hypothyroidism; E87.1 Hypo-osmolality and hyponatremia; F17.200 Nicotine dependence, unspecified, uncomplicated; K21.00 Gastro-esophageal reflux disease with esophagitis, without bleeding
CPT/HCPCS: 36415; 85652; 86140

== ENCOUNTER → 2022-04-13 | Outpatient (CLI) | payer MEDICARE, MEDICAID, SELFPAY ==
[2022-04-13 11:23] LABS: Absolute Neutrophil Count 6.5 X10^3/uL (2.0-7.7); Basophil# 0.08 X10^3/uL; Eosinophil# 0.25 X10^3/uL; Hematocrit 37.9 % (40-54); Hemoglobin 12.1 g/dL (13.0-16.5); Lymphocyte % 9.7 % (19-41); Mean Corp Hgb Conc 31.9 g/dL (32-36); Mean Corpuscular Hgb 27.6 pg (27.0-32.0); Mean Corpuscular Volume 86.5 fL (80-94); Mean Platelet Vol. 11.1 fl (6.2-12.0); Monocyte# 0.56 X10^3/uL; Monocyte% 6.8 % (0-10); NRBC Flagged by Analyzer 0 % (0-5); Neutrophil # 6.47 X10^3/uL (2.7-7.7); Neutrophil % 78.9 % (47-70); Platelet Count 370 K/mm3 (150-450); RBC Distribution Width CV 13.8 % (11.6-14.6); RBC Distribution Width SD 43.5 fl (35.1-43.9); Red Blood Count 4.38 M/mm3 (4.6-6.2); White Blood Count 8.2 K/mm3 (4.4-11.0)
[2022-04-13 11:50] LABS: ALB/GLOB Ratio 0.9 RATIO (0.9-2.4); AST(SGOT) 13 U/L (15-37); Alanine Aminotransfer ALT/SGPT 10 U/L (16-61); Albumin, Serum 3.2 g/dL (3.2-5.0); Alkaline Phosphatase 92 U/L (45-117); Anion Gap 3 (5-15); BUN 12 mg/dL (7-18); BUN/Creat Ratio 13.7 RATIO (10-20); Calcium,Total 9.2 mg/dL (8.5-10.1); Chloride 101 mmol/L (98-107); Creatinine, Serum 0.87 mg/dL (0.70-1.30); EST Glomerular Filtration Rate 93 mL/min (>60); Est Glom Filt Rate - Afr Amer 113 mL/min (>60); Globulin 3.6 g/dL (2.2-4.2); Glucose 127 mg/dL (74-106); LDH 175 U/L (87-241); Protein, Total 6.8 g/dL (6.4-8.2); Sodium Level 136 mmol/L (136-145)
[2022-04-13 11:53] LABS: Erythrocyte Sedimentation Rate 44 mm/hr (0-20)
[2022-04-16 17:21] LABS: Endomysial Antibody IgA Negative (Negative)
[2022-04-16 20:00] LABS: Immunoglobulin A 213 mg/dL (61-437); t-Transglutaminase IgA <2 U/mL (0-3)
[2022-04-17 17:07] LABS: Albumin 3.3 g/dL (2.9-4.4); Alpha-1-Globulins 0.3 g/dL (0.0-0.4); Gamma Globulin 0.7 g/dL (0.4-1.8); Immunoglobulin A 211 mg/dL (61-437); Immunoglobulin G 657 mg/dL (603-1613); Immunoglobulin M 121 mg/dL (20-172); PROEL- TOTAL PROTEIN 6.3 g/dL (6.0-8.5)
[2022-04-17 20:07] LABS: Immunoglobulin E 22 IU/mL (6-495)
== END | disposition home or self-care (01) ==
PROVIDERS: PCP Internal Medicine Infectious Disease; Visit Provider Nurse Practitioner Adult Health
DX: R60.0 Localized edema (principal); R19.5 Other fecal abnormalities; R19.7 Diarrhea, unspecified; K63.3 Ulcer of intestine
CPT/HCPCS: 36415; 80053; 82784; 82785; 83516; 83615; 84165; 85025; 85652; 86140; 86255; 86334

== ENCOUNTER → 2022-05-07 | Outpatient (CLI) | payer MEDICARE, MEDICAID, SELFPAY ==
--- NOTE | 2022-05-07 13:24 | CT_ITS ---
INDICATION: chronic diarrhea, abd pain -- oral and IV EXAMINATION: CT ABDOMEN AND PELVIS WITH CONTRAST - CT Abdomen And Pelvis W/ Contrast Injection TECHNIQUE: Helically acquired images were obtained of the abdomen and pelvis following IV contrast. A radiation dose optimization technique was used for this scan. IV Contrast dosage and agent: 100 mL of ISOVUE-300. Oral contrast: Yes. COMPARISON: 2013.. FINDINGS: LOWER CHEST: .Prominence of the bronchovascular markings in the lower lung mccarthy but no evidence of focal infiltrate or consolidation.. No cardiomegaly or pericardial effusion. LIVER: Homogeneous. No focal mass. GALLBLADDER AND BILIARY TREE: No calcified gallstones. Layering sludge visualized within the gallbladder seen on axial series 2 image 36. No gallbladder distension or wall edema. No intra- or extrahepatic biliary ductal dilation. PANCREAS: No focal cystic or solid mass. SPLEEN: Normal size without focal cystic or solid mass. ADRENAL GLANDS: Mild prominence of bilateral adrenal glands but no evidence of well-circumscribed masses is seen. This demonstrates no significant change in comparison to the prior study dated 01/14/2014. KIDNEYS AND URETERS: Normal renal size and position. No hydronephrosis. 2.3 cm simple cyst visualized in the posterior right kidney. Subtle minute cysts visualized bilaterally. PERITONEUM: No ascites or free air. No other fluid collection. BOWEL: No evidence of acute appendicitis. Small type I hiatus hernia is visualized. Focal areas of proximal small bowel wall thickening visualized. Prominence of the bowel loops visualized, scattered stool visualized in the large bowel loops.. No evidence of bowel obstruction is seen. No focal inflammatory change. LYMPH NODES: No enlarged mesenteric or retroperitoneal lymph nodes. VESSELS: Aorta is non-dilated. Mild atherosclerotic calcifications visualized in the abdominal aorta, no evidence of aneurysmal dilatation, arterial dissection or significant stenosis is seen. Prominence of the mesenteric vein is notably prominent portal vein visualized on axial series 2 image 25 measuring 2.2 cm, prominent superior mesenteric vein visualized on coronal series 601 image 47. Prominent inferior mesenteric vein is visualized with a central low attenuation suggestive of a clot visualized in head proximal segment seen on axial series 2 image 35 and on coronal series 601 image 59, this clot is visualized extending distally with nonopacification suggestive of occlusion of the sigmoidal veins, no evidence of extension into the left Colic vein as demonstrated on coronal series 601 images 59, 60, 61. Prominent splenic vein demonstrates increase in size in comparison to the prior study. URINARY BLADDER: Unremarkable. REPRODUCTIVE ORGANS: No pelvic masses. Prominence of the prostate gland is visualized demonstrating heterogeneous attenuation. ABDOMINAL WALL: No discrete abdominal or pelvic wall hernia. BONES: No lytic or blastic abnormality. Depression of the superior endplate of the L2 and T12 vertebral bodies is seen, T12 was visualized on the prior study.. CT/Abdomen/Pelvis WITH Contrast IMPRESSION: Prominent mesenteric veins with suggestion of a clot within the inferior mesenteric vein extending from its proximal segment at the level of the confluence with the superior mesenteric vein extending distally into the sigmoid vein. Prominent central mesenteric veins including the superior mesenteric vein, splenic vein and portal vein. Negative CT of the abdomen and pelvis with contrast. Electronically Signed: César Robison MD at 16:06 EDT ,
== END | disposition home or self-care (01) ==
PROVIDERS: PCP Internal Medicine Infectious Disease; Referring Provider Nurse Practitioner Adult Health; Visit Provider Nurse Practitioner Adult Health
DX: K52.9 Noninfective gastroenteritis and colitis, unspecified (principal)
CPT/HCPCS: 74177; Q9967

== ENCOUNTER → 2022-05-22 | Outpatient (CLI) | payer MEDICARE, MEDICAID, SELFPAY ==
--- NOTE | 2022-05-22 14:43 | CT_ITS ---
INDICATION: RML 1.2 and multiple nodules EXAMINATION: CT CHEST WITHOUT CONTRAST - CT Chest W/O Contrast Injection TECHNIQUE: Helically acquired images were obtained of the chest. A radiation dose optimization technique was used for this scan. IV Contrast dosage and agent: None. COMPARISON: 05/07/2022. FINDINGS: LUNGS, PLEURA AND LARGE AIRWAYS: Successful subtle scattered emphysematous bullous lesions visualized in bilateral lung mccarthy. Mild bronchial wall thickening is visualized, no evidence of endobronchial or endotracheal lesion is seen. The bronchovascular interstitial lung markings are unremarkable bilaterally, no evidence of focal infiltrate or consolidation is seen. Linear streaky opacities suggestive of scarring visualized in the lower lung mccarthy bilaterally and to a lesser extent in the right middle lung field. 0.6 cm subtle subpleural soft tissue density visualized in the anteromedial right middle lobe seen on axial series 4 image 104 and sagittal series 601 image 114 is seen that demonstrates no significant change in comparison to the prior study. Linear subsegmental atelectatic streaks versus scarring visualized in the medial right middle lobe seen on axial series 4 image 92 demonstrates decrease in size and attenuation in comparison to the prior study. No evidence of parenchymal lung masses or nodules is seen. No evidence of pneumothorax is visualized. THYROID: No thyroid lesions. HEART AND PERICARDIUM: Heart size is normal. No pericardial effusion. No significant calcifications of the coronary vessels. VESSELS: Thoracic aorta is not dilated. MEDIASTINUM AND STEVE: No mediastinal or hilar adenopathy. Esophagus is unremarkable. No hiatal hernia. UPPER ABDOMEN: No acute pathology. BONES: No suspicious lytic or blastic abnormality. CT/Chest without Contrast IMPRESSION: 0.6 cm subpleural nodularity in the medial right lower lobe demonstrates no change. Nodularity along the medial aspect of the right middle lobe demonstrates decrease in size in comparison to the prior study. Subtle scarring versus subsegmental atelectatic changes visualized in the lower lung mccarthy with mild soft tissue prominence. Improved aeration is seen in comparison to the prior study. No evidence of parenchymal lung nodules or masses is seen. Lung RADS category 2, less than 1% probability of malignancy. If there is a high-level of suspicion follow-up evaluation with low dose CT scan in 12 months. Electronically Signed: César Robison MD at 9:02 EDT ,
== END | disposition home or self-care (01) ==
LOC: CT 14:42
PROVIDERS: PCP Internal Medicine Infectious Disease; Referring Provider Internal Medicine Critical Care Medicine; Visit Provider Internal Medicine Critical Care Medicine
DX: R91.1 Solitary pulmonary nodule (principal); J44.9 Chronic obstructive pulmonary disease, unspecified; I50.812 Chronic right heart failure
CPT/HCPCS: 71250

== ENCOUNTER → 2022-07-24 | Outpatient (CLI) | payer MEDICARE, MEDICAID, SELFPAY ==
[2022-07-24 08:36] VITALS: PULSE 106; PULSE 110; PULSE 129; PULSE 137; PULSE 138; O2SAT 93; O2SAT 94; O2SAT 95; O2SAT 96; O2SAT 97; O2SAT 98
--- NOTE | 2022-07-25 10:16 | PCM.PSN.6M ---
PSN 6 Minute Walk Test 6 Minute Walk Test 6 Minute Walk Test: 6 Minute Walk Test PSN:6-Minute Walk Test Start: 07/24/22 08:36 Freq: Status: Active Protocol: RESP.6MINW Document 07/24/22 08:36 RENATO (Rec: 07/24/22 08:38 RENATO [id number]) 6 Minute Walk Test Date Performed 07/24/22 Time Performed 08:15 Height 5 ft 10 in Weight: 190 lb Weight in Pounds 190.[address]: Samuel Rodrigez Assistive device used: None Pre-test Oxygen Delivery Method Room Air Pulse Ox (%) 98 Pulse Rate (60-100 beats/min) 110 H Dyspnea Diane Scale (0-10) 0 Exertion Diane Scale (6-20) 6 1st minute Oxygen Delivery Method Room Air Pulse Ox (%) 97 Pulse Rate (60-100 beats/min) 129 H 2nd minute Oxygen Delivery Method Room Air Pulse Ox (%) 95 Pulse Rate (60-100 beats/min) 137 H 3rd minute Oxygen Delivery Method Room Air Pulse Ox (%) 93 Pulse Rate (60-100 beats/min) 137 H 4th minute Oxygen Delivery Method Room Air Pulse Ox (%) 94 Pulse Rate (60-100 beats/min) 138 H 5th minute Oxygen Delivery Method Room Air Pulse Ox (%) 94 Pulse Rate (60-100 beats/min) 138 H 6th minute Oxygen Delivery Method Room Air Pulse Ox (%) 94 Pulse Rate (60-100 beats/min) 138 H Dyspnea Diane Scale (0-10) 3 Exertion Diane Scale (6-20) 12 Post-test Oxygen Delivery Method Room Air Pulse Ox (%) 96 Pulse Rate (60-100 beats/min) 106 H Full Laps Walked 22 Partial Lap, Number of Tiles Walked 10 Total Distance Walked (ft) 1308 Interpretation Interpretation: The patient ambulated 1308 feet over the course of 6 minutes beginning on room air without assistive devices. Pretesting oxygen saturation was noted to be 98% on room air. With ambulation, the ashley oxygen saturation was 93%. This represents a significant exertional oxygen desaturation. Recommendations Recommendations: There is no indication for the use of supplemental oxygen at this time. However, close interval follow-up is recommended, given the degree of oxygen desaturation noted during this study.
== END | disposition home or self-care (01) ==
LOC: PSN 08:03
PROVIDERS: PCP Internal Medicine Infectious Disease; Referring Provider Internal Medicine Critical Care Medicine; Visit Provider Internal Medicine Critical Care Medicine
DX: J44.9 Chronic obstructive pulmonary disease, unspecified (principal); I50.812 Chronic right heart failure
CPT/HCPCS: 94618

== ENCOUNTER → 2022-07-31 | Outpatient (CLI) | payer MEDICARE, MEDICAID, SELFPAY ==
--- NOTE | 2022-08-01 17:24 | PFTCOMP ---
COMPLETE PULMONARY FUNCTION TEST INTERPRETATION Brief HPI: Patient is a 66-year-old male, currently under the care of myself, who presents to [facility] for complete pulmonary function tests secondary to diagnosis of COPD. Respiratory therapist reports good effort and reproducible results. Interpretation: Forced expiration spirometry shows a severe large airways obstructive ventilatory defect with an FEV1 of 41% predicted. There is a significant bronchodilator response in FEV1 by strict ATS criteria. Spirograms are of good quality and plateau slowly, indicating slowly emptying areas of the lungs. The respiratory flow volume loop shows decreased expiratory flow rates at all lung volumes consistent with airway obstruction. Lung volumes by body plethysmography show a decreased total lung capacity at 4.18 L, 66% predicted. FRC and RV are elevated out of proportion. Lung volume measurements are consistent with air-trapping. Diffusion capacity by carbon monoxide is relatively preserved at 72% predicted. The airway resistance is elevated. No previous pulmonary function tests were available for review. Impression: Partially reversible severe mixed ventilatory defect with relatively preserved diffusing capacity
== END | disposition home or self-care (01) ==
LOC: PSN 08:29
PROVIDERS: PCP Internal Medicine Infectious Disease; Referring Provider Internal Medicine Critical Care Medicine; Visit Provider Internal Medicine Critical Care Medicine
DX: J44.9 Chronic obstructive pulmonary disease, unspecified (principal); I50.812 Chronic right heart failure
CPT/HCPCS: 94060; 94726; 94729

== ENCOUNTER → 2022-09-11 | Outpatient (CLI) | payer MEDICARE, MEDICAID, SELFPAY ==
--- NOTE | 2022-09-11 12:46 | CT_ITS ---
INDICATION: F/U LUNG NODULES, SMOKER, HIGH RISK LUNG CANCER EXAMINATION: CT CHEST WITH CONTRAST - CT Chest W/ Contrast Injection TECHNIQUE: Helically acquired images were obtained of the chest following IV contrast. A radiation dose optimization technique was used for this scan. IV Contrast dosage and agent: COMPARISON: 05/22/2022 FINDINGS: LUNGS, PLEURA AND LARGE AIRWAYS: Mild bilateral apical scarring. Mild emphysema. Focal groundglass density in the left lower lobe of the lungs consistent with pneumonitis. New ill-defined nodules and linear densities in the right lower lobe consistent with atypical pneumonia. No pleural effusion or thickening. No pneumothorax. THYROID: No thyroid lesions. HEART AND PERICARDIUM: Heart size is normal. No pericardial effusion. VESSELS: Thoracic aorta is not dilated. No aortic dissection. No obvious central pulmonary embolism although this study was not performed with the pulmonary embolism protocol. MEDIASTINUM AND STEVE: No mediastinal or hilar adenopathy. Esophagus is unremarkable. No hiatal hernia. UPPER ABDOMEN: Bilateral adrenal gland hyperplasia. BONES: No suspicious lytic or blastic abnormality. CT/Chest WITH Contrast IMPRESSION: Mild emphysema with development of bibasilar pneumonitis. Electronically Signed: Demond Davison MD at 18:06 EST ,
[2022-09-11 13:20] LABS: CREATININE FINGERSTICK < 0.9 mg/dL (0.70-1.30); EGFR FINGERSTICK > 60.0000 mL/min (>60)
== END | disposition home or self-care (01) ==
LOC: CT 12:46
PROVIDERS: PCP Internal Medicine Infectious Disease; Referring Provider Internal Medicine Hematology & Oncology; Visit Provider Internal Medicine Hematology & Oncology
DX: R91.1 Solitary pulmonary nodule (principal)
CPT/HCPCS: 71260; Q9967

== ENCOUNTER → 2022-09-24 13:30 | Outpatient (RCR) | payer MEDICARE, MEDICAID, SELFPAY ==
[2022-09-26 20:56] LABS: Anti-Cardiolipin Ab, IgA, Qn < 9 APL U/mL (0-11); Anti-Cardiolipin Ab, IgG, Qn < 9 GPL U/mL (0-14); Anti-Cardiolipin Ab, IgM, Qn 29 MPL U/mL (0-12)
== END ==
LOC: ONC 06-21 14:45
PROVIDERS: PCP Internal Medicine Infectious Disease; Referring Provider Internal Medicine Hematology & Oncology; Visit Provider Internal Medicine Hematology & Oncology
DX: K55.069 Acute infarction of intestine, part and extent unspecified (principal)
CPT/HCPCS: 36415; 86147

== ENCOUNTER 2023-02-19 11:59 | Inpatient (IN) | payer MEDICARE, MEDICAID, SELFPAY ==
[2023-02-19] VITALS (11 sets, daily range): BP systolic 139–175; BP diastolic 77–91; PULSE 100–119; RESP 18–26; TEMP 36.6–36.7; O2SAT 88–97; BMI 26.4; BMI 25.8
--- NOTE | 2023-02-19 12:21 | EKG12_ITS ---
Test Reason : SOB Blood Pressure : / mmHG Vent. Rate : 105 BPM Atrial Rate : 105 BPM P-R Int : 150 ms QRS Dur : 076 ms QT Int : 326 ms P-R-T Axes : 086 082 083 degrees QTc Int : 430 ms Sinus tachycardia Right atrial enlargement Borderline ECG Confirmed by MATILDE ALSTON, WILFRID ([id number]), technical writer and editor FIDEL LA ([id number]) on 02/21/2023 9:43:54 AM Referred By: Confirmed By:WILFRID CLAYTON MD
--- NOTE | 2023-02-19 12:23 | EX.ED.DYSGE1 ---
HPI History of Present Illness Chief Complaint: Hypertension Detail of Chief Complaint: High blood pressure and hypoxemia Informant: patient and SNF Narrative Narrative: Patient presents to the emergency department from Dr. Rodrigez's office with complaint of shortness of breath. Patient's been dealing with shortness of breath for years. He is currently in a intermediate and apparently has O2 ordered there at 3 L but patient feels like he needs 4 L because that is what he was told he needed from his last admission February 14 at [facility]. Patient does not always wear his oxygen. Patient was seeing pulmonology today and noted to be quite hypertensive in the office as well as hypoxemic with O2 sat in the 70s. Patient denies any chest pain. He does have a cough and has been coughing up some thick pruitt and yellow sputum. He denies fever or chills or sweats. Patient denies recent travel or surgery. PFSH PFSH Medical History Anxiety COPD (chronic obstructive pulmonary disease) Depression Diabetes Diarrhea Elevated fecal calprotectin GERD (gastroesophageal reflux disease) Hypertension Hyperthyroidism Hypo-osmolality and hyponatremia Localized edema Schizophrenia Smoker Home Medications albuterol sulfate 90 mcg/actuation aerosol inhaler (Ventolin HFA) 2 puff inhalation Q4H PRN SHORTNESS OF BREATH/WHEEZING 03/03/19 [History Last Taken 02/16/23] omeprazole 20 mg tablet,delayed release 20 mg PO DAILY ACID REFLUX 03/03/19 [History Last Taken 02/19/23 06:00] fluticasone 250 mcg-salmeterol 50 mcg/dose blistr powdr for inhalation (Advair Diskus) 1 inh inhalation BID COPD 12/28/21 [History Last Taken 02/19/23 06:00] furosemide 20 mg tablet 20 mg PO DAILY FLUID 12/28/21 [History Last Taken 02/19/23 06:00] potassium chloride 10 mEq capsule,extended release 10 meq PO DAILY SUPPLEMENT 12/28/21 [History Last Taken 02/19/23 06:00] metformin 500 mg tablet 500 mg PO BID DIABETES 04/13/22 [History Last Taken 02/19/23 06:00] guaifenesin 600 mg tablet, extended release 12 hr 1,200 mg PO BID COUGH 05/14/22 [History Last Taken 02/19/23 06:00] risperidone microspheres 50 mg/2 mL intramuscular susp,ext release (Risperdal Consta) 50 mg IM Q14D MENTAL HEALTH 05/14/22 [History Last Taken 02/15/23] sitagliptin phosphate 50 mg tablet (Januvia) 50 mg PO DAILY DIABETES 05/14/22 [History Last Taken 02/19/23 06:00] losartan 25 mg tablet 25 mg PO DAILY BLOOD PRESSURE 09/24/22 [History Last Taken 02/19/23 06:00] diphenhydramine HCl 25 mg tablet 50 mg PO DAILY SEASONAL ALLERGIES 02/19/23 [History Last Taken 02/18/23] lorazepam 0.5 mg tablet (Ativan) 0.5 mg PO BID PRN INSOMNIA 02/19/23 [History Last Taken 02/19/23 06:00] mineral oil-hydrophil petrolat topical ointment (Aquaphor topical ointment) 1 applic topical DAILY LEGS 02/19/23 [History Last Taken 02/19/23] multivitamin,tx-minerals 1 tab PO DAILY SUPPLEMENT 02/19/23 [History Last Taken 02/19/23 06:00] Allergy/AdvReac Type Severity Reaction Status Date / Time sulfamethoxazole Allergy Mild Unknown Verified 02/19/23 12:03 trimethoprim Allergy Mild Unknown Verified 02/19/23 12:03 Penicillins [PCN] Allergy Unknown Verified 02/19/23 12:03 Family History Father , at 87 Heart disease Obesity Mother , at 81 Emphysema lung Surgical History History of dental surgery Social History household members: none Smoking Status: Current every day smoker tobacco type: cigarettes alcohol intake: current alcohol intake frequency: other substance use type: does not use ROS ROS ED Review of Systems ROS Unobtainable: other Constitutional Constitutional ED: Reports lethargy; Denies chills, fever(s), sweats or weight loss Eyes Eyes: Denies blurry vision, change in vision or diplopia ENT ENT ED: Denies rhinorrhea or sore throat Cardiovascular Cardiovascular: Denies chest pain, orthopnea or racing heartbeat Respiratory/Chest Respiratory/Chest: Reports cough, dyspnea and dyspnea on exertion; Denies orthopnea or sputum Gastrointestinal Gastrointestinal: Denies abdominal pain, diarrhea, nausea or vomiting Genitourinary Genitourinary ED: Denies dysuria, hematuria or urinary frequency Musculoskeletal Musculoskeletal: Denies arthralgias, back pain, myalgias or neck pain Integumentary Denies abscess, Abrasions or rash Neurologic Neurologic: Denies headache(s) or weakness Psychiatric Psychiatric: Denies anxiety, depression or suicidal thoughts Endocrine Endocrinology: Denies polydipsia, polyphagia or polyuria Hematologic/Lymphatic Hematologic/Lymphatic: Denies easy bleeding, easy bruising or lymphadenopathy Allergic/Immunologic Allergic/Immunologic ED: Denies mouth swelling, tongue swelling or urticaria EXAM Physical Exam Const Vital Signs: 02/19/23 12:00 02/19/23 12:42 02/19/23 12:42 Temperature 98 F Temperature Source Temporal Pulse Rate 119 H 118 H Respiratory Rate 18 22 H Blood Pressure 139/77 H Blood Pressure Mean 97 Pulse Ox 88 88 Oxygen Delivery Method Room Air Nasal Cannula Oxygen Flow Rate (L/min) 2 02/19/23 12:49 02/19/23 13:12 02/19/23 15:24 Temperature 98.1 F Temperature Source Temporal Pulse Rate 107 H 105 H Respiratory Rate 26 H 19 H Blood Pressure 153/77 H 175/85 H Blood Pressure Mean 102 115 Pulse Ox 92 90 97 Oxygen Delivery Method Nasal Cannula Nasal Cannula Nasal Cannula Oxygen Flow Rate (L/min) 3 4 4 02/19/23 15:25 Temperature 98.1 F Temperature Source Temporal Pulse Rate 105 H Respiratory Rate 19 H Blood Pressure 175/85 H Blood Pressure Mean 115 Pulse Ox 97 Oxygen Delivery Method Nasal Cannula Oxygen Flow Rate (L/min) 4 Positive well nourished and well developed General Appearance ED: well developed and NAD HEENT Reports TM's clear and moist mucous membranes normocephalic and atraumatic; Negative for trauma or tenderness Tympanic Membrane ED: Yes TM's clear Eyes PERRL and EOMs intact bilaterally General Eye ED: Negative for pale conjunctiva or scleral icterus Neck no lymphadenopathy, supple and no JVD General: Negative for tenderness Chest Wall inspection of chest normal and palpation of chest normal Chest: Negative for tenderness Resp normal respiratory effort Effort and Inspection: Negative for respiratory distress or pain with movement Auscultation: rhonchi, wheezes and diminished lung sounds Cardio regular rate, regular rhythm, S1 normal heart sound, S2 normal heart sound and no murmurs Peripheral Pulses: pulses 2+ throughout GI normal to inspection, nondistended, normoactive bowel sounds, soft to palpation, non-tender, non-distended and no masses Back/Spine no CVA tenderness and no thoracic nor lumbar tenderness Extremity normal to inspection General Extremety ED: Negative for edema General Extremity: Negative for edema Neuro oriented x3, CN's II-XII intact bilaterally, no sensory deficits noted and gait normal Sensorium / Orientation: awake, alert, oriented to person, oriented to place and oriented to time Motor Exam: strength 5/5 throughout and strength abnormal Psych mental status grossly normal Skin no rashes or lesions noted and no wounds MDM MDM MDM Narrative Medical decision making narrative: Patient presents with cough and shortness of breath. He was sent in from pulmonology for hypoxemia and hypertension. Patient recently had admission for pneumonia. Patient denies any chest pain. He denies recent travel or surgery. Patient does have known history of COPD and apparently has not been compliant with his oxygen at the intermediate. IV established on arrival. 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 EKG obtained showed a sinus rhythm with a rate of 105 bpm with right atrial enlargement. CBC with differential showed an elevated white count of 13.2 with a hemoglobin of 12.5 and hematocrit of 40.8. Platelet count was 341. Chemistries unremarkable. Troponin normal at 14. BNP was normal at 27.7. Chest x-ray showed left lower lobe infiltrate. Lactate was normal at 0.8. D-dimer elevated 1.11. CT of the chest was ordered and official report pending from radiology. I reviewed the CT scan myself and I do not appreciate an obvious PE. He does have a left lower lobe consolidation consistent with pneumonia. Patient started on Levaquin. Case will be discussed with hospitalist to evaluate patient for admission as he continues to be tachypneic and tachycardic. He did receive DuoNeb aerosol here and Solu-Medrol. Case discussed with hospitalist who will admit patient to PCU. Lab Data Attestation: I reviewed the patient's lab results. Labs: Laboratory Results - last 24 hr 02/19/23 02/19/23 02/19/23 12:47 12:47 12:47 WBC 13.2 H RBC 4.65 Hgb 12.5 L Hct 40.8 MCV 87.7 MCH 26.9 L MCHC 30.6 L RDW Std Deviation 44.3 H RDW Coeff of Vicente 13.9 Plt Count 341 MPV 10.0 Immature Gran % (Auto) 1.500 H Neut % (Auto) 90.1 H Lymph % (Auto) 2.7 L [place] % (Auto) 4.6 Eos % (Auto) 0.7 Baso % (Auto) 0.4 Absolute Neuts (auto) 11.9 H Absolute Lymphs (auto) 0.36 L Nucleated RBC % 0 D-Dimer Quant (PE/DVT) Sodium 133 L Potassium 4.0 Chloride 88 L Carbon Dioxide 41.0 H Anion Gap 4 L BUN 8 Creatinine 0.86 Estim Creat Clear Calc 87.24 Est GFR (MDRD) Af Amer 115 Est GFR (MDRD) Non-Af 95 BUN/Creatinine Ratio 9.4 L Glucose 208 H Lactic Acid Calcium 9.2 Troponin I High Sens 14 B-Natriuretic Peptide 27.7 02/19/23 02/19/23 12:47 13:54 WBC RBC Hgb Hct MCV MCH MCHC RDW Std Deviation RDW Coeff of Vicente Plt Count MPV Immature Gran % (Auto) Neut % (Auto) Lymph % (Auto) [place] % (Auto) Eos % (Auto) Baso % (Auto) Absolute Neuts (auto) Absolute Lymphs (auto) Nucleated RBC % D-Dimer Quant (PE/DVT) 1.11 H* Sodium Potassium Chloride Carbon Dioxide Anion Gap BUN Creatinine Estim Creat Clear Calc Est GFR (MDRD) Af Amer Est GFR (MDRD) Non-Af BUN/Creatinine Ratio Glucose Lactic Acid 0.8 Calcium Troponin I High Sens B-Natriuretic Peptide Radiography Diagnostic Testing: Clinical Impression(s) from Imaging Studies Chest X-Ray 02/19/23 13:20 IMPRESSION: Minimal left lower lobe infiltrate, atelectasis or scarring. Electronically Signed: Markell Branch MD at 13:55 EDT , 1 view chest x-ray obtained interpreted by myself as a left lower lobe infiltrate. Radiology was in agreement. EKG Initial EKG: Attestation: I personally reviewed and interpreted this EKG as follows: Comments: Sinus tachycardia with a rate of 105 bpm with right atrial enlargement Discharge Plan Triage Chief Complaint: Hypertension Other Complaint: Shortness of Breath ED Provider: Blayne Caldwell Dx/Rx/DC Orders Clinical Impression: Pneumonia, COPD exacerbation, Tachycardia, Hypoxemia Prescriptions: No Action fluticasone propion-salmeterol [Advair Diskus] 250-50 mcg/dose blister with device 1 inh inhalation BID furosemide 20 mg tablet 20 mg PO DAILY potassium chloride 10 mEq capsule, extended release 10 meq PO DAILY guaifenesin 600 mg tablet extended release 12hr 1,200 mg PO BID Risperdal Consta 50 mg/2 mL suspension,extended rel recon 50 mg IM Q14D Januvia 50 mg tablet 50 mg PO DAILY losartan 25 mg tablet 25 mg PO DAILY lorazepam [Ativan] 0.5 mg tablet 0.5 mg PO BID PRN (Reason: INSOMNIA ) albuterol sulfate [Ventolin HFA] 1 INHALER inhaler 2 puff inhalation Q4H PRN (Reason: SHORTNESS OF BREATH/WHEEZING ) omeprazole 20 MG tablet,delayed release (DR/EC) 20 mg PO DAILY metformin 500 mg tablet 500 mg PO BID Thera M Tablet 1 tab PO DAILY Aquaphor Ointment 1 applic TOPICAL DAILY diphenhydramine HCl 25 mg Tablet 50 mg PO DAILY Primary Care Provider: Arely Flowers Referrals: Arely Flowers MD [Primary Care Provider] - Disposition Disposition: Acute Care Hospital [facility]
[2023-02-19] MEDS: Ipratropium/Albuterol Sulfate 3 ML AMPUL.NEB INHALATION (12:40)
[2023-02-19 12:58] LABS: Absolute Lymphocyte Count 0.36 X10^3/uL (0.83-4.51); Absolute Neutrophil Count 11.9 X10^3/uL (2.0-7.7); Basophil# 0.05 X10^3/uL; Basophil% 0.4 % (0-1); Eosinophil# 0.09 X10^3/uL; Eosinophils% 0.7 % (0-5); Hematocrit 40.8 % (40-54); Hemoglobin 12.5 g/dL (13.0-16.5); Lymphocyte # 0.36 X10^3/ul (0.83-4.51); Lymphocyte % 2.7 % (19-41); Mean Corp Hgb Conc 30.6 g/dL (32-36); Mean Corpuscular Hgb 26.9 pg (27.0-32.0); Mean Corpuscular Volume 87.7 fL (80-94); Monocyte% 4.6 % (0-10); NRBC Flagged by Analyzer 0 % (0-5); Neutrophil # 11.88 X10^3/uL (2.7-7.7); Neutrophil % 90.1 % (47-70); POSITIVE DIFFERENTIAL YES; Platelet Count 341 K/mm3 (150-450); RBC Distribution Width CV 13.9 % (11.6-14.6); RBC Distribution Width SD 44.3 fl (35.1-43.9); Red Blood Count 4.65 M/mm3 (4.6-6.2); White Blood Count 13.2 K/mm3 (4.4-11.0)
[2023-02-19 13:00] LABS: Differential Indicated SCAN CRITERIA MET
[2023-02-19] MEDS: 0.9% Normal Saline 1,000 ML 150 ML IV (13:00)
[2023-02-19] MEDS: MethylPREDNISolone 125 MG/2 ML Vial IV (13:01)
[2023-02-19 13:16] LABS: Anion Gap 4 (5-15); BUN 8 mg/dL (7-18); BUN/Creat Ratio 9.4 RATIO (10-20); Calcium,Total 9.2 mg/dL (8.5-10.1); Chloride 88 mmol/L (98-107); Creatinine, Serum 0.86 mg/dL (0.70-1.30); EST Glomerular Filtration Rate 95 mL/min (>60); Est Glom Filt Rate - Afr Amer 115 mL/min (>60); Estimated Creatinine Clearance 87.24 ml/min; Glucose 208 mg/dL (74-106); Sodium Level 133 mmol/L (136-145); Troponin-I HS 14 pg/mL (3.0-78.0)
--- NOTE | 2023-02-19 13:20 | RAD_ITS ---
EXAM: XR CHEST, 1 VIEW CLINICAL INDICATION: dyspnea TECHNIQUE: Frontal view of the chest. COMPARISON: XR Chest dated 08/03/2021 FINDINGS: LUNGS AND PLEURAL SPACES: Left retrocardiac linear density consistent with an area of scarring, infiltrate or atelectasis. Lungs are otherwise clear. No pneumothorax. No effusion. HEART: Normal heart size. MEDIASTINUM: No mediastinal or hilar mass. BONES/JOINTS: No acute abnormality. RAD/Chest 1 View (Portable) IMPRESSION: Minimal left lower lobe infiltrate, atelectasis or scarring. Electronically Signed: Markell Branch MD at 13:55 EDT ,
[2023-02-19 13:26] LABS: Lactic Acid 0.8 mmol/L (0.4-1.9)
[2023-02-19 13:47] LABS: BNP,B-Type NATRIURETIC PEPTIDE 27.7 pg/mL (0-100)
[2023-02-19] MEDS: levoFLOXacin IV 750 MG/150 ML BAG 100 MG IV (14:13)
[2023-02-19 14:41] LABS: D-Dimer Quantitative (DVT/PE) 1.11 FEU/ug/m (0.27-0.49)
--- NOTE | 2023-02-19 14:42 | ED.RN ---
pt informed that was going to be admitted but pt reported, im 96% now, im not staying in here. ama forms printed off and dr. medellin aware.
--- NOTE | 2023-02-19 14:44 | CT_ITS ---
EXAM: CT ANGIOGRAPHY CHEST WITH INTRAVENOUS CONTRAST CLINICAL INDICATION: dyspnea, hypoxia, elevated d-dimer TECHNIQUE: Helically acquired angiography images were obtained of the chest with intravenous contrast. This CT exam was performed using one or more of the following dose reduction techniques: automated exposure control, adjustment of the mA and/or kV according to patient size, and/or use of iterative reconstruction technique. MIP reconstructed images were created and reviewed. CONTRAST: IV 100mL [id number] COMPARISON: CT chest 09/11/2022 FINDINGS: PULMONARY ARTERIES: Normal. Normal in caliber. No evidence of pulmonary embolism. AORTA: Normal. Normal in caliber. No evidence of dissection. GREAT VESSELS OF AORTIC ARCH: Normal. Normal in caliber. No evidence of dissection. Normal variant aberrant right subclavian artery. LUNGS AND PLEURAL SPACES: Mild diffuse centrilobular pulmonary emphysema. Small left pleural effusion associated with segmental pneumonia/atelectasis of the left lower lobe. Trace right pleural effusion. No mass. HEART: Left ventricular hypertrophy. Small pericardial effusion. Heart size is normal. MEDIASTINUM: Normal. No mediastinal or hilar adenopathy. Esophagus is unremarkable. No hiatal hernia. BONES/JOINTS: Normal. No suspicious lytic or blastic abnormality. ADRENALS: Diffuse enlargement of the adrenal glands again noted suggestive of adenomatous change. CT/CTA Chest W/WO Contrast IMPRESSION: 1. No evidence of acute pulmonary embolism. 2. Left basilar subsegmental pneumonia/atelectasis. 3. Mild pulmonary emphysema. Electronically Signed: Markell Branch MD at 16:34 EDT ,
--- NOTE | 2023-02-19 14:57 | NURSING ---
consent for treatment called to legal guardian cheir mayberry via telephone. pt unable to make decisions for ama per guardian
[2023-02-19] MEDS: LORazepam 0.5 MG Tablet PO ×2 (15:00→22:21)
--- NOTE | 2023-02-19 15:50 | HP.PCM.HOS_ITS ---
HPI - General General Date of Admission: 02/19/23 Date of Service: 02/19/23 Chief Complaint: shortness of breath HPI Narrative BRENDA GRIMALDO, is a 67 M who presents via the ED on 02/19/2023 with a complaint of shortness of breath. He was brought in from Dr Rodrigez's office where he presented with a complaint of shortness of breath. He is on 3L of oxygen at the [facility]. HE doesnt wear his oxygen all the time. He was admitted recently at [facility] for pneumonia and was sent to [facility]. He was sent on 4L of oxygen, but doesnt wear it all the time. He doesnt wear his oxygen all the time. HE was noted to have elevated BP in the ED as well. He denied any fever, chills, chest pain, palpitations, dizziness, nausea, vomiting or any other symptoms. REview of systems was otherwise negative. Vitals in the ED were BP of 175/85, CA of 105 and RR of 19. He was saturating at 97% on 4 L of oxygen. CBC showed WBC of 13.1 hemoglobin of 12.5 as well as platelets of 341. D-dimer was elevated at 1.1. Chemistry showed sodium of 133 and bicarb of 41 as well as potassium of 4. Initial troponin was 14 and BNP was 27.7. Chest x-ray showed minimal left lower lobe infiltrate, atelectasis or scarring. CTA of the chest done on account of elevated D-dimer was negative for any evidence of PE but did show a left lower lobe consolidation. He has been admitted to be managed for recurrent pneumonia. Sputum culture done in the ED and preliminary results showing gram-positive cocci. PFSH Medical History Anxiety COPD (chronic obstructive pulmonary disease) Depression Diabetes Diarrhea Elevated fecal calprotectin GERD (gastroesophageal reflux disease) Hypertension Hyperthyroidism Hypo-osmolality and hyponatremia Localized edema Schizophrenia Smoker Home Medications albuterol sulfate 90 mcg/actuation aerosol inhaler (Ventolin HFA) 2 puff inhal ation Q4H PRN SHORTNESS OF BREATH/WHEEZING 03/03/19 [History Last Taken 02/16/23] omeprazole 20 mg tablet,delayed release 20 mg PO DAILY ACID REFLUX 03/03/19 [History Last Taken 02/19/23 06:00] fluticasone 250 mcg-salmeterol 50 mcg/dose blistr powdr for inhalation (Advair Diskus) 1 inh inhalation BID COPD 12/28/21 [History Last Taken 02/19/23 06:00] furosemide 20 mg tablet 20 mg PO DAILY FLUID 12/28/21 [History Last Taken 02/19/23 06:00] potassium chloride 10 mEq capsule,extended release 10 meq PO DAILY SUPPLEMENT 12/28/21 [History Last Taken 02/19/23 06:00] metformin 500 mg tablet 500 mg PO BID DIABETES 04/13/22 [History Last Taken 02/19/23 06:00] guaifenesin 600 mg tablet, extended release 12 hr 1,200 mg PO BID COUGH 05/14/22 [History Last Taken 02/19/23 06:00] risperidone microspheres 50 mg/2 mL intramuscular susp,ext release (Risperdal Consta) 50 mg IM Q14D MENTAL HEALTH 05/14/22 [History Last Taken 02/15/23] sitagliptin phosphate 50 mg tablet (Januvia) 50 mg PO DAILY DIABETES 05/14/22 [History Last Taken 02/19/23 06:00] losartan 25 mg tablet 25 mg PO DAILY BLOOD PRESSURE 09/24/22 [History Last Taken 02/19/23 06:00] diphenhydramine HCl 25 mg tablet 50 mg PO DAILY SEASONAL ALLERGIES 02/19/23 [History Last Taken 02/18/23] lorazepam 0.5 mg tablet (Ativan) 0.5 mg PO BID PRN INSOMNIA 02/19/23 [History Last Taken 02/19/23 06:00] mineral oil-hydrophil petrolat topical ointment (Aquaphor topical ointment) 1 applic topical DAILY LEGS 02/19/23 [History Last Taken 02/19/23] multivitamin,tx-minerals 1 tab PO DAILY SUPPLEMENT 02/19/23 [History Last Taken 02/19/23 06:00] Allergy/AdvReac Type Severity Reaction Status Date / Time sulfamethoxazole Allergy Mild Unknown Verified 02/19/23 12:03 trimethoprim Allergy Mild Unknown Verified 02/19/23 12:03 Penicillins [PCN] Allergy Unknown Verified 02/19/23 12:03 Family History Father , at 87 Heart disease Obesity Mother , at 81 Emphysema lung Surgical History History of dental surgery Social History household members: none Smoking Status: Current every day smoker tobacco type: cigarettes alcohol intake: current alcohol intake frequency: other substance use type: does not use ROS Constitutional Constitutional: Reports fatigue and malaise; Denies anorexia, chills, fever(s) or weakness Eyes Eyes: Denies change in vision ENT HEENT: Denies dysphagia or headache(s) Cardiovascular Cardiovascular: Reports dyspnea on exertion; Denies chest pain, edema, lightheadedness, orthopnea, palpitations, rapid heart rate or syncope Respiratory/Chest Respiratory/Chest: Reports cough, dyspnea, productive cough, shortness of breath at rest and shortness of breath with exertion; Denies wheezing Gastrointestinal Gastrointestinal: Denies abdominal pain, constipation, dyspepsia, nausea or vomiting Genitourinary Genitourinary: Denies burning urination Musculoskeletal Musculoskeletal: Denies arthralgias or joint pain Neurologic Neurologic: Denies confusion, dizziness, focal weakness, headache(s) or numbness Psychiatric Psychiatric: Denies anxiety Endocrine Endocrinology: Denies change in body appearance Hematologic/Lymphatic Hematologic/Lymphatic: Denies anemia Vital Signs Vital Signs Vital Signs: 02/19/23 12:00 02/19/23 12:42 02/19/23 12:42 Temperature 98 F Temperature Source Temporal Pulse Rate 119 H 118 H Respiratory Rate 18 22 H Blood Pressure 139/77 H Blood Pressure Mean 97 Pulse Ox 88 88 Oxygen Delivery Method Room Air Nasal Cannula Oxygen Flow Rate (L/min) 2 02/19/23 12:49 02/19/23 13:12 02/19/23 15:24 Temperature 98.1 F Temperature Source Temporal Pulse Rate 107 H 105 H Respiratory Rate 26 H 19 H Blood Pressure 153/77 H 175/85 H Blood Pressure Mean 102 115 Pulse Ox 92 90 97 Oxygen Delivery Method Nasal Cannula Nasal Cannula Nasal Cannula Oxygen Flow Rate (L/min) 3 4 4 02/19/23 15:25 Temperature 98.1 F Temperature Source Temporal Pulse Rate 105 H Respiratory Rate 19 H Blood Pressure 175/85 H Blood Pressure Mean 115 Pulse Ox 97 Oxygen Delivery Method Nasal Cannula Oxygen Flow Rate (L/min) 4 Weight Weight: 184 lb 8.43 oz Body Mass Index (BMI) 26.4 Physical Exam Const alert, oriented x3 and no apparent distress General Appearance: cooperative HEENT normocephalic, head/scalp atraumatic, hearing grossly normal bilaterally and moist oral mucous membranes Mouth: oral and palatal mucosa normal Eyes PERRL, EOMs intact bilaterally and conjunctivae normal Neck no lymphadenopathy and supple Resp Resp Narrative: Mildly diminished breath sounds bibasally. No wheezes or crackles. On 4 L of oxygen by nasal cannula. Cardio regular rhythm, S1 normal heart sound and S2 normal heart sound Cardio Narrative: Mildly tachycardic. GI normal to inspection, nondistended, normoactive bowel sounds, soft to palpation and non-tender Extremity normal to inspection, full ROM and no clubbing, cyanosis or edema Neuro oriented x3, CN's II-XII intact bilaterally and moves all extremities Sensorium / Orientation: awake and alert Motor Exam: strength 5/5 throughout Psych affect normal Results Lab / Micro Data Result Diagrams: 02/19/23 12:47 02/19/23 12:47 Labs: Laboratory Results - last 24 hr 02/19/23 12:47: WBC 13.2 H, RBC 4.65, Hgb 12.5 L, Hct 40.8, MCV 87.7, MCH 26.9 L , MCHC 30.6 L, RDW Std Deviation 44.3 H, RDW Coeff of Vicente 13.9, Plt Count 341, MPV 10.0, Immature Gran % (Auto) 1.500 H, Neut % (Auto) 90.1 H, Lymph % (Auto) 2.7 L, [place] % (Auto) 4.6, Eos % (Auto) 0.7, Baso % (Auto) 0.4, Absolute Neuts (auto) 11.9 H, Absolute Lymphs (auto) 0.36 L, Nucleated RBC % 0 02/19/23 12:47: Sodium 133 L, Potassium 4.0, Chloride 88 L, Carbon Dioxide 41.0 H, Anion Gap 4 L, BUN 8, Creatinine 0.86, Estim Creat Clear Calc 87.24, Est GFR (MDRD) Af Amer 115, Est GFR (MDRD) Non-Af 95, BUN/Creatinine Ratio 9.4 L, Glucose 208 H, Calcium 9.2, Troponin I High Sens 14 02/19/23 12:47: B-Natriuretic Peptide 27.7 02/19/23 12:47: Lactic Acid 0.8 02/19/23 13:54: D-Dimer Quant (PE/DVT) 1.11 H* Micro: Microbiology 02/19/23 12:51 Sputum, Expectorated/Coughed Gram Stain - Final 02/19/23 12:58 Nasal Secretion SARS-CoV-2 & FLU Antigen (Rapid) - Final Radiology Impression Chest X-Ray 02/19/23 13:20 IMPRESSION: Minimal left lower lobe infiltrate, atelectasis or scarring. Electronically Signed: Markell Branch MD at 13:55 EDT , Assessment & Plan Assessment/Plan (1) Pneumonia: (2) COPD exacerbation: PLAN: Plan #Hypoxia due to probable health associated pneumonia * Was admitted at beginning of February in March pulmonary in hospital and treated for pneumonia. Comes back again with shortness of breath. * Chest imaging showing evidence of left lower lobe pneumonia. * Sputum cultures growing gram-positive cocci. * Start patient on IV vancomycin and Zosyn in light of recent admission for pneumonia * breahting treatment with bronchodilators * titrate oxygen to maintain sats >90% * #Elevated D-dimer: Likely due to pneumonia. CTA of the chest was negative for any evidence of PE. #Hypertension: On losartan. #Type 2 diabetes mellitus: On metformin and sitagliptin. Insulin sliding scale. Accu-Cheks ACHS. #History of schizophrenia: On Risperdal. Decisions made by guardian. DVT prophylaxis: Lovenox CODE STATUS:full code * Patient counseled extensively about different types of CODE STATUS including full code, DNR CCA and DNR CCA. Patient elects to be full code. Total [id number] time 17 minutes. Total time spent on evaluation and management of patient, reviewing chart and specialist notes, discussing plan with patient and his , discussion with nursing and ancillary staff as well as documentation: 76 mins Charges/Coding Visit Charges Inpatient E&M: 82921 Init Hosp L3 Procedures Hospitalists Procedures: 16863 Advncd Care Plan 30 Min
[2023-02-19] MEDS: 0.9% Normal Saline 1,000 ML 125 ML IV (20:17)
[2023-02-19 21:49] LABS: Troponin-I HS 12 pg/mL (3.0-78.0)
[2023-02-19] MEDS: Albuterol 2.5 MG/3 ML VIAL.NEB. INHALATION (22:09)
[2023-02-19] MEDS: Budesonide Respules 0.5 MG/2 ML AMPUL.NEB. INHALATION (22:09)
[2023-02-19] MEDS: guaiFENesin 600 MG Tablet 1200 MG PO (22:21)
--- NOTE | 2023-02-19 22:55 | PCM.RX.CS ---
Consult Pharmacy has been consulted to manage selected antiobiotic: Vancomycin Type of Consult: New start Suspected Infection: Pneumonia Prior Doses of Antibiotics Received/Current Regimen: Medications Vancomycin HCl 1,500 mg/ (Sodium Chloride) 530 mls @ 250 mls/hr IV Q12H VETO Discontinued Medications Vancomycin HCl 2,000 mg/ (Sodium Chloride) 540 mls @ 250 mls/hr IV X1 ONE Stop: 02/19/23 22:39 Last Admin: 02/19/23 22:23 Dose: 250 mls/hr Labs: Sodium 133 mmol/L (136-145) L 02/19/23 12:47 Potassium 4.0 mmol/L (3.5-5.1) 02/19/23 12:47 Chloride 88 mmol/L (98-107) L 02/19/23 12:47 Carbon Dioxide 41.0 mmol/L (21.0-32.0) H 02/19/23 12:47 Anion Gap 4 (5-15) L 02/19/23 12:47 BUN 8 mg/dL (7-18) 02/19/23 12:47 Creatinine 0.86 mg/dL (0.70-1.30) 02/19/23 12:47 Est GFR (MDRD) Af Amer 115 mL/min (>60) 02/19/23 12:47 Est GFR (MDRD) Non-Af 95 mL/min (>60) 02/19/23 12:47 BUN/Creatinine Ratio 9.4 RATIO (10-20) L 02/19/23 12:47 Glucose 208 mg/dL (74-106) H 02/19/23 12:47 Microbiology: Microbiology 02/19/23 12:51 Sputum, Expectorated/Coughed Gram Stain - Final 02/19/23 12:58 Nasal Secretion SARS-CoV-2 & FLU Antigen (Rapid) - Final Weight used for dosin.7 kg Estimated Creatinine Clearance: 87 Goal Trough: 15-20 mcg/mL Pharmacy Plan for Drug Dosing: Pharmacy Service will continue to monitor and adjust dosing as required. Follow-Up Labs: Trough Vancomycin Labs to be done on [date and time ordered]: 02/21/23 @1000
[2023-02-19 23:28] LABS: Troponin-I HS 11 pg/mL (3.0-78.0)
[2023-02-20] VITALS (7 sets, daily range): BP systolic 141–166; BP diastolic 72–92; PULSE 90–110; RESP 16–20; TEMP 36.6–37.1; O2SAT 94–98
[2023-02-20] MEDS: MELATONIN 10 MG TABLET PO ×2 (00:29→21:05)
[2023-02-20 02:50] LABS: Absolute Lymphocyte Count 0.42 X10^3/uL (0.83-4.51); Basophil# 0.02 X10^3/uL; Basophil% 0.2 % (0-1); Eosinophil# 0.01 X10^3/uL; Eosinophils% 0.1 % (0-5); Hematocrit 34.7 % (40-54); Hemoglobin 10.7 g/dL (13.0-16.5); Lymphocyte # 0.42 X10^3/ul (0.83-4.51); Lymphocyte % 3.8 % (19-41); Mean Corp Hgb Conc 30.8 g/dL (32-36); Mean Corpuscular Volume 87.6 fL (80-94); Mean Platelet Vol. 10.3 fl (6.2-12.0); Monocyte# 0.59 X10^3/uL; Monocyte% 5.3 % (0-10); NRBC Flagged by Analyzer 0 % (0-5); Neutrophil # 9.99 X10^3/uL (2.7-7.7); Neutrophil % 89.3 % (47-70); POSITIVE DIFFERENTIAL YES; Platelet Count 322 K/mm3 (150-450); RBC Distribution Width CV 13.9 % (11.6-14.6); RBC Distribution Width SD 44.6 fl (35.1-43.9); Red Blood Count 3.96 M/mm3 (4.6-6.2); White Blood Count 11.2 K/mm3 (4.4-11.0)
[2023-02-20 02:53] LABS: Differential Indicated SCAN CRITERIA MET
[2023-02-20 03:16] LABS: Troponin-I HS 12 pg/mL (3.0-78.0)
--- NOTE | 2023-02-20 04:22 | NURSING ---
This nurse contacted [facility] in regards to IM Risperdone when last injection was. Nurse Pedraza took call and states last injection was administered to patient on February 15, 2023 and its given Every other Saturday. Pharmacy notified and MAR updated.
[2023-02-20 04:47] LABS: Anion Gap 7 (5-15); BUN 13 mg/dL (7-18); BUN/Creat Ratio 15.1 RATIO (10-20); Calcium,Total 8.7 mg/dL (8.5-10.1); Chloride 93 mmol/L (98-107); Creatinine, Serum 0.86 mg/dL (0.70-1.30); EST Glomerular Filtration Rate 94 mL/min (>60); Est Glom Filt Rate - Afr Amer 114 mL/min (>60); Estimated Creatinine Clearance 87.24 ml/min; Glucose 289 mg/dL (74-106); Potassium 4.4 mmol/L (3.5-5.1); Sodium Level 134 mmol/L (136-145)
[2023-02-20] MEDS: Albuterol 2.5 MG/3 ML VIAL.NEB. INHALATION ×2 (07:01→13:05)
[2023-02-20] MEDS: Budesonide Respules 0.5 MG/2 ML AMPUL.NEB. INHALATION (07:01)
--- NOTE | 2023-02-20 08:53 | CASEMGMT ---
Discharge Planning VM left with patients legal guardian, Kelly Farah, regarding his return to [facility]. Rebekah Quinones
--- NOTE | 2023-02-20 08:59 | CASEMGMT ---
Discharge Planning Call received from Kelly Farah, legal guardian. She would like for patient to return to [place]. Rebekah Quinones
[2023-02-20] MEDS: Furosemide 20 MG Tablet PO (09:52)
[2023-02-20] MEDS: Potassium Chloride Oral Tablet 10 MEQ PO (09:52)
[2023-02-20] MEDS: Pantoprazole Sodium 20 MG Tablet PO (09:52)
[2023-02-20] MEDS: guaiFENesin 600 MG Tablet 1200 MG PO ×2 (09:52→20:56)
[2023-02-20] MEDS: LINAGLIPTIN 5 MG TABLET PO (09:52)
[2023-02-20] MEDS: Losartan Potassium 25 MG Tablet PO (09:52)
[2023-02-20] MEDS: Multivitamins,Ther W-Minerals Tablet 1 TABLET PO (09:52)
[2023-02-20] MEDS: metFORMIN HCl 500 MG Tablet PO ×2 (09:52→17:31)
[2023-02-20] MEDS: Enoxaparin 40 MG/0.4 ML Syringe SC (09:53)
[2023-02-20] MEDS: Mineral Oil/Petrolatum Cr 1.75oz Bottle 1 APPLIC TOPICAL (10:12)
[2023-02-20] MEDS: DiphenhydrAMINE 25 MG Capsule 50 MG PO ×2 (10:12→22:15)
[2023-02-20] MEDS: Loperamide 2 MG Capsule PO (11:30)
--- NOTE | 2023-02-20 11:40 | PN.HOSP_ITS ---
Subjective Subjective Doing well, no issues overnight. Feels much better than when he came in. He still requiring about 4 L nasal cannula. Objective Data Objective Data Vital Signs: Vital Signs Temp Pulse Resp BP Pulse Ox O2 Del Method O2 Flow Rate 97.9 F 110 H 16 166/72 H 94 Nasal Cannula 4 02/20/23 09:47 02/20/23 09:47 02/20/23 09:47 02/20/23 09:47 02/20/23 09:47 02/20/23 09:47 02/20/23 09:47 Oxygen Flow Rate (L/min) 4 Oxygen Delivery Method Nasal Cannula Weight: 180 lb 1.883 oz Body Mass Index (BMI) 25.8 Intake & Output: Intake and Output for Last 24 Hours 02/19/23 02/20/23 02/21/23 03:59 03:59 03:59 Intake Total 6.25 / 6.25 100 / 100 Balance 6.25 / 6.25 100 / 100 Medical Nutrition Assessment Dietitian: Malnutrition Criteria Met Start: 02/20/23 10:28 Freq: Status: Active Protocol: Document 02/20/23 10:29 AG (Rec: 02/20/23 10:29 AG [id number]) Nutrition Malnutrition Evidence of Malnutrition Exists Yes Malnutrition (moderate): Acute Illness/Injury Evidenced By Suboptimal Energy Intake ( Moderate),Weight Loss ( Moderate) Clinical Problem Acute Disease or Injury Related Malnutrition Etiology moderate, acute malnutrition related to inadequate energy intake w/ recent acute illness Signs/Symptoms as evidenced by estimated PO intake meeting <75% of estimated energy needs > 1 week; unintentional wt loss of 12.9#/7% x ~1 month Status Active Problem Recommendation Dietitian Recommendations/Changes will adjust diet to regular/no added salt w/ chocolate milk at meals given acute malnutrition; will monitor blood glucose and add CHO controlled diet as appropriate . Lab / Micro Data Result Diagrams: 02/20/23 02:40 02/20/23 02:40 Labs: Laboratory Results - last 24 hr 02/19/23 12:47: WBC 13.2 H, RBC 4.65, Hgb 12.5 L, Hct 40.8, MCV 87.7, MCH 26.9 L , MCHC 30.6 L, RDW Std Deviation 44.3 H, RDW Coeff of Vicente 13.9, Plt Count 341, MPV 10.0, Immature Gran % (Auto) 1.500 H, Neut % (Auto) 90.1 H, Lymph % (Auto) 2.7 L, Jenkins % (Auto) 4.6, Eos % (Auto) 0.7, Baso % (Auto) 0.4, Absolute Neuts (auto) 11.9 H, Absolute Lymphs (auto) 0.36 L, Nucleated RBC % 0 02/19/23 12:47: Sodium 133 L, Potassium 4.0, Chloride 88 L, Carbon Dioxide 41.0 H, Anion Gap 4 L, BUN 8, Creatinine 0.86, Estim Creat Clear Calc 87.24, Est GFR (MDRD) Af Amer 115, Est GFR (MDRD) Non-Af 95, BUN/Creatinine Ratio 9.4 L, Glucose 208 H, Calcium 9.2, Troponin I High Sens 14 02/19/23 12:47: B-Natriuretic Peptide 27.7 02/19/23 12:47: Lactic Acid 0.8 02/19/23 13:54: D-Dimer Quant (PE/DVT) 1.11 H* 02/19/23 20:30: Troponin I High Sens 12 02/19/23 22:38: Troponin I High Sens 11 02/20/23 02:40: WBC 11.2 H, RBC 3.96 L, Hgb 10.7 L, Hct 34.7 L, MCV 87.6, MCH 27.0, MCHC 30.8 L, RDW Std Deviation 44.6 H, RDW Coeff of Vicente 13.9, Plt Count 322, MPV 10.3, Immature Gran % (Auto) 1.300 H, Neut % (Auto) 89.3 H, Lymph % (Auto) 3.8 L, Jenkins % (Auto) 5.3, Eos % (Auto) 0.1, Baso % (Auto) 0.2, Absolute Neuts (auto) 10.0 H, Absolute Lymphs (auto) 0.42 L, Nucleated RBC % 0 02/20/23 02:40: Sodium 134 L, Potassium 4.4, Chloride 93 L, Carbon Dioxide 34.0 H, Anion Gap 7, BUN 13, Creatinine 0.86, Estim Creat Clear Calc 87.24, Est GFR (MDRD) Af Amer 114, Est GFR (MDRD) Non-Af 94, BUN/Creatinine Ratio 15.1, Glucose 289 H, Calcium 8.7 02/20/23 02:40: Troponin I High Sens 12 Micro: Microbiology 02/19/23 12:51 Sputum, Expectorated/Coughed Gram Stain - Final 02/19/23 12:51 Sputum, Expectorated/Coughed Respiratory Culture - Preliminary Appears to be normal respiratory elvira. Further studies to follow. 02/19/23 23:35 Urine, Clean Catch Legionella Antigen - Final 02/19/23 23:35 Urine, Clean Catch Streptococcus pneumoniae Antigen (M - Final 02/19/23 12:58 Nasal Secretion SARS-CoV-2 & FLU Antigen (Rapid) - Final Radiography Diagnostic Testing: Radiology Impression Chest X-Ray 02/19/23 13:20 IMPRESSION: Minimal left lower lobe infiltrate, atelectasis or scarring. Electronically Signed: Markell Branch MD at 13:55 EDT , Chest CTA 02/19/23 14:44 IMPRESSION: 1. No evidence of acute pulmonary embolism. 2. Left basilar subsegmental pneumonia/atelectasis. 3. Mild pulmonary emphysema. Electronically Signed: Markell Branch MD at 16:34 EDT , Physical Exam Narrative General: Alert, Oriented x3, Cooperative, No apparent distress HEENT: Atraumatic, PERRLA, EOMI, Normocephalic Oral: Moist Mucosa Neck: Supple, No JVD Lungs: Diminished, Normal air movement, No rhonchi, wheeze, No rales Cardiovascular: Tachycardic, Regular Rhythm, Normal S1, Normal S2, No murmurs Abdomen: Soft, Non Tender, Non-Distended, No Hepato-splenomegaly Extremities: No edema, Capillary Refill Less than 3 Seconds Skin: No rashes, No breakdown Musculoskeletal: No Tenderness to Palpation of Joints or Extremities Neurological: Cranial nerves II-XII grossly intact, Motor Exam 5/5 strength throughout, Sensory exam intact to light touch and pain Psych/Mental Status: Normal Affect, Appropriate Assessment & Plan Assessment/Plan (1) Pneumonia: (2) COPD exacerbation: PLAN: Plan 1. Hypoxia due to healthcare associated pneumonia and COPD exacerbation ? CTA of the chest was negative for PE secondary to an elevated D-dimer ? There is evidence of a left lower lobe pneumonia, Legionella and strep antigens are negative and sputum culture appears to be normal elvira ? Continue with steroids and breathing treatments as well as antibiotics ? He is feeling better, will check MRSA PCR if negative can discontinue vancomycin 2. HTN ? Continue with losartan ? Blood pressures are stable ? Can resume Lasix tomorrow morning 3. DM2 ? Continue with his home metformin and linagliptin ? Continue to monitor and make adjustments as necessary especially since he is on steroids ? Accu-Cheks ACHS ? We will make adjustments as necessary 4. Schizophrenia ? He does have a guardian and he lives retirement ? Continue with his home medications DVT: Lovenox Charges/Coding Visit Charges Inpatient E&M: 88650 Subs Hosp L2
--- NOTE | 2023-02-20 13:11 | CHAPLAIN ---
Type of Pastoral Visit _x__ Initial Visit ___ Follow-up Visit ___ On-call Visit ___ General Patient Visit ___ Spiritual Assessment ___ Family Conference ___ Bereavement ___ Rapid Response ___ Code Blue ___ Other (describe below) Pastoral Care Referral From _x__ Patient ___ Family ___ Nurse ___ Physician ___ Shaft Headman ___ Clinical Provider Trainer ___ Other (describe below) Sacrament/Intervention _x__ Active listening ___ Anointing ___ Mormon ___ Bereavement ___ Communion _x__ Vivi exploration ___ _x__ Life review _x__ Prayer ___ Reconciliation ___ Sacrament of Sick _x__ Supportive presence ___ Wedding ___ Other (describe below) Pastoral Comments patient was very welcoming; pt had much to say on various topics; pt asked questions of this office clinician about life, vivi, and perspectives; at times pt stops and takes pauses in his conversation and then begins with a different question; pt explains his vivi journey from agnostic to many different denominations of Jain that he has pursued; pt welcomed prayer and future visits; notified several minutes after visit by METAL FITTER that pt was asking for this office clinician to return; office clinician went to stroke alert but will attempt a follow up as time allows
[2023-02-20] MEDS: predniSONE 20 MG Tablet 40 MG PO (14:44)
[2023-02-20] MEDS: LORazepam 0.5 MG Tablet PO (21:05)
[2023-02-20 23:19] LABS: M R Staph aureus DNA By PCR Negative (Negative); Probe Check PASS; Specimen Processing Control PASS
[2023-02-21] VITALS (11 sets, daily range): BP systolic 142–170; BP diastolic 80–87; PULSE 91–122; RESP 18–22; TEMP 36.3–36.8; O2SAT 88–96
[2023-02-21 06:14] LABS: Absolute Lymphocyte Count 0.59 X10^3/uL (0.83-4.51); Absolute Neutrophil Count 9.3 X10^3/uL (2.0-7.7); Basophil# 0.02 X10^3/uL; Basophil% 0.2 % (0-1); Eosinophil# 0.06 X10^3/uL; Eosinophils% 0.6 % (0-5); Hematocrit 34.8 % (40-54); Hemoglobin 10.8 g/dL (13.0-16.5); Lymphocyte # 0.59 X10^3/ul (0.83-4.51); Lymphocyte % 5.5 % (19-41); Mean Corpuscular Hgb 27.3 pg (27.0-32.0); Mean Corpuscular Volume 88.1 fL (80-94); Mean Platelet Vol. 10.8 fl (6.2-12.0); Monocyte# 0.71 X10^3/uL; Monocyte% 6.6 % (0-10); NRBC Flagged by Analyzer 0 % (0-5); Neutrophil # 9.25 X10^3/uL (2.7-7.7); Neutrophil % 86.2 % (47-70); POSITIVE DIFFERENTIAL YES; Platelet Count 274 K/mm3 (150-450); RBC Distribution Width CV 14.3 % (11.6-14.6); RBC Distribution Width SD 45.7 fl (35.1-43.9); Red Blood Count 3.95 M/mm3 (4.6-6.2); White Blood Count 10.7 K/mm3 (4.4-11.0)
[2023-02-21 06:22] LABS: Differential Indicated SCAN CRITERIA MET
[2023-02-21 06:52] LABS: Anion Gap 5 (5-15); BUN 19 mg/dL (7-18); BUN/Creat Ratio 21.5 RATIO (10-20); Calcium,Total 8.7 mg/dL (8.5-10.1); Chloride 97 mmol/L (98-107); Creatinine, Serum 0.88 mg/dL (0.70-1.30); EST Glomerular Filtration Rate 91 mL/min (>60); Est Glom Filt Rate - Afr Amer 111 mL/min (>60); Estimated Creatinine Clearance 85.26 ml/min; Glucose 186 mg/dL (74-106); Potassium 4.1 mmol/L (3.5-5.1); Sodium Level 137 mmol/L (136-145)
--- NOTE | 2023-02-21 08:16 | CASEMGMT ---
Discharge Planning Return snf referral sent to [place] via [facility]. Rebekah Quinones
[2023-02-21] MEDS: Enoxaparin 40 MG/0.4 ML Syringe SC (10:26)
[2023-02-21] MEDS: LINAGLIPTIN 5 MG TABLET PO (10:27)
[2023-02-21] MEDS: Pantoprazole Sodium 20 MG Tablet PO (10:27)
[2023-02-21] MEDS: Furosemide 20 MG Tablet PO (10:27)
[2023-02-21] MEDS: Losartan Potassium 25 MG Tablet PO (10:27)
[2023-02-21] MEDS: guaiFENesin 600 MG Tablet 1200 MG PO ×2 (10:27→22:06)
[2023-02-21] MEDS: Potassium Chloride Oral Tablet 10 MEQ PO (10:28)
[2023-02-21] MEDS: predniSONE 20 MG Tablet 40 MG PO (10:28)
[2023-02-21] MEDS: Multivitamins,Ther W-Minerals Tablet 1 TABLET PO (10:28)
[2023-02-21] MEDS: Mineral Oil/Petrolatum Cr 1.75oz Bottle 1 APPLIC TOPICAL (10:28)
[2023-02-21] MEDS: metFORMIN HCl 500 MG Tablet PO ×2 (10:28→17:58)
--- NOTE | 2023-02-21 10:58 | CASEMGMT ---
Discharge Planning [place] responded to referral. Patient can return. Rebekah Quinones
[2023-02-21] MEDS: Albuterol 2.5 MG/3 ML VIAL.NEB. INHALATION ×2 (12:00→19:40)
--- NOTE | 2023-02-21 12:09 | PCM.RX.CS ---
Consult Pharmacy has been consulted to manage selected antiobiotic: Vancomycin Type of Consult: Follow-up Suspected Infection: Pneumonia Prior Doses of Antibiotics Received/Current Regimen: 02/19/23 @ 2223 02/20/23 @ 1032 02/20/23 @ 2148 02/21/23 @ 1045 Labs: Sodium 137 mmol/L (136-145) 02/21/23 05:35 Potassium 4.1 mmol/L (3.5-5.1) 02/21/23 05:35 Chloride 97 mmol/L (98-107) L 02/21/23 05:35 Carbon Dioxide 35.0 mmol/L (21.0-32.0) H 02/21/23 05:35 Anion Gap 5 (5-15) 02/21/23 05:35 BUN 19 mg/dL (7-18) H 02/21/23 05:35 Creatinine 0.88 mg/dL (0.70-1.30) 02/21/23 05:35 Est GFR (MDRD) Af Amer 111 mL/min (>60) 02/21/23 05:35 Est GFR (MDRD) Non-Af 91 mL/min (>60) 02/21/23 05:35 BUN/Creatinine Ratio 21.5 RATIO (10-20) H 02/21/23 05:35 Glucose 186 mg/dL (74-106) H 02/21/23 05:35 Vancomycin Trough 17.0 ug/mL (5.0-15.0) H 02/21/23 10:05 Microbiology: Microbiology 02/19/23 12:51 Sputum, Expectorated/Coughed Gram Stain - Final 02/19/23 12:51 Sputum, Expectorated/Coughed Respiratory Culture - Preliminary Yeast 02/19/23 12:47 Blood Culture (Wb) - Anticubital Left Blood Culture - Preliminary No growth in 48 hours. 02/19/23 23:35 Urine, Clean Catch Legionella Antigen - Final 02/19/23 23:35 Urine, Clean Catch Streptococcus pneumoniae Antigen (M - Final 02/19/23 12:58 Nasal Secretion SARS-CoV-2 & FLU Antigen (Rapid) - Final Weight used for dosin.7 kg Estimated Creatinine Clearance: 85 Goal Trough: 15-20 mcg/mL Pharmacy Plan for Drug Dosing: Continue to use Vancomycin 1500mg every 12 hours Pharmacy Service will continue to monitor and adjust dosing as required. Follow-Up Labs: Trough Vancomycin Labs to be done on [date and time ordered]: 02/22/23 @ 9301
--- NOTE | 2023-02-21 12:51 | PN.HOSP_ITS ---
Subjective Subjective Doing well, no issues overnight. Blood pressure little bit better controlled Objective Data Objective Data Vital Signs: Vital Signs Temp Pulse Resp BP Pulse Ox O2 Del Method O2 Flow Rate 98.3 F 100 18 162/86 H 91 High Flow 5 02/21/23 10:22 02/21/23 12:00 02/21/23 12:00 02/21/23 10:22 02/21/23 10:47 02/21/23 10:47 02/21/23 10:47 Oxygen Flow Rate (L/min) 5 Oxygen Delivery Method High Flow Weight: 180 lb 1.883 oz Body Mass Index (BMI) 25.8 Intake & Output: Intake and Output for Last 24 Hours 02/20/23 02/21/23 02/22/23 03:59 03:59 03:59 Intake Total 2046.25 / 2046.25 2340 / 2340 100 / 100 Output Total 1800 / 1800 Balance 2046.25 / 2046.25 540 / 540 100 / 100 Medical Nutrition Assessment Dietitian: Malnutrition Criteria Met Start: 02/20/23 10:28 Freq: Status: Active Protocol: Document 02/20/23 10:29 AG (Rec: 02/20/23 10:29 AG [id number]) Nutrition Malnutrition Evidence of Malnutrition Exists Yes Malnutrition (moderate): Acute Illness/Injury Evidenced By Suboptimal Energy Intake ( Moderate),Weight Loss ( Moderate) Clinical Problem Acute Disease or Injury Related Malnutrition Etiology moderate, acute malnutrition related to inadequate energy intake w/ recent acute illness Signs/Symptoms as evidenced by estimated PO intake meeting <75% of estimated energy needs > 1 week; unintentional wt loss of 12.9#/7% x ~1 month Status Active Problem Recommendation Dietitian Recommendations/Changes will adjust diet to regular/no added salt w/ chocolate milk at meals given acute malnutrition; will monitor blood glucose and add CHO controlled diet as appropriate . Lab / Micro Data Result Diagrams: 02/21/23 05:35 02/21/23 05:35 Labs: Laboratory Results - last 24 hr 02/20/23 12:03: MRSA (PCR) Negative 02/21/23 05:35: WBC 10.7, RBC 3.95 L, Hgb 10.8 L, Hct 34.8 L, MCV 88.1, MCH 27.3, MCHC 31.0 L, RDW Std Deviation 45.7 H, RDW Coeff of Vicente 14.3, Plt Count 274, MPV 10.8, Immature Gran % (Auto) 0.900, Neut % (Auto) 86.2 H, Lymph % (Auto) 5.5 L, [place] % (Auto) 6.6, Eos % (Auto) 0.6, Baso % (Auto) 0.2, Absolute Neuts (auto) 9.3 H, Absolute Lymphs (auto) 0.59 L, Nucleated RBC % 0 02/21/23 05:35: Sodium 137, Potassium 4.1, Chloride 97 L, Carbon Dioxide 35.0 H, Anion Gap 5, BUN 19 H, Creatinine 0.88, Estim Creat Clear Calc 85.26, Est GFR (MDRD) Af Amer 111, Est GFR (MDRD) Non-Af 91, BUN/Creatinine Ratio 21.5 H, Glucose 186 H, Calcium 8.7 02/21/23 10:05: Vancomycin Trough 17.0 H Micro: Microbiology 02/19/23 12:51 Sputum, Expectorated/Coughed Gram Stain - Final 02/19/23 12:51 Sputum, Expectorated/Coughed Respiratory Culture - Prelim inary Yeast 02/19/23 12:47 Blood Culture (Wb) - Anticubital Left Blood Culture - Preliminary No growth in 48 hours. 02/19/23 23:35 Urine, Clean Catch Legionella Antigen - Final 02/19/23 23:35 Urine, Clean Catch Streptococcus pneumoniae Antigen (M - Final 02/19/23 12:58 Nasal Secretion SARS-CoV-2 & FLU Antigen (Rapid) - Final Physical Exam Narrative General: Alert, Oriented x3, Cooperative, No apparent distress HEENT: Atraumatic, PERRLA, EOMI, Normocephalic Oral: Moist Mucosa Neck: Supple, No JVD Lungs: Diminished, Normal air movement, No rhonchi, wheeze, No rales Cardiovascular: Tachycardic, Regular Rhythm, Normal S1, Normal S2, No murmurs Abdomen: Soft, Non Tender, Non-Distended, No Hepato-splenomegaly Extremities: No edema, Capillary Refill Less than 3 Seconds Skin: No rashes, No breakdown Musculoskeletal: No Tenderness to Palpation of Joints or Extremities Neurological: Motor Exam 5/5 strength throughout, Sensory exam intact to light touch and pain Psych/Mental Status: Normal Affect, Appropriate Assessment & Plan Assessment/Plan (1) Pneumonia: (2) COPD exacerbation: PLAN: Plan 1. Hypoxia due to healthcare associated pneumonia and COPD exacerbation ? CTA of the chest was negative for PE secondary to an elevated D-dimer ? There is evidence of a left lower lobe pneumonia, Legionella and strep antigens are negative and sputum culture appears to be normal elvira ? Continue with steroids and breathing treatments as well as antibiotics ?MRSA screen is negative, will discontinue vancomycin ? Given repeated episodes of pneumonia we will consult speech therapy for evaluation for possible swallow eval 2. HTN ? Continue with losartan ? Blood pressures are stable ? Can resume Lasix tomorrow morning 3. DM2 ? Continue with his home metformin and linagliptin ? Continue to monitor and make adjustments as necessary especially since he is on steroids ? Accu-Cheks ACHS ? We will make adjustments as necessary 4. Schizophrenia ? He does have a guardian and he lives [facility] ? Continue with his home medications DVT: Lovenox Charges/Coding Visit Charges Inpatient E&M: 56559 Subs Hosp L2
[2023-02-21] MEDS: Furosemide 20 MG/2 ML VIAL IV (17:57)
[2023-02-21] MEDS: Budesonide Respules 0.5 MG/2 ML AMPUL.NEB. INHALATION (19:40)
[2023-02-21] MEDS: Carvedilol 3.125 MG TABLET PO (20:06)
[2023-02-21] MEDS: MELATONIN 10 MG TABLET PO (22:06)
[2023-02-21] MEDS: DiphenhydrAMINE 25 MG Capsule 50 MG PO (22:07)
[2023-02-22] VITALS (8 sets, daily range): BP systolic 122–177; BP diastolic 65–88; PULSE 83–116; RESP 17–20; TEMP 36.3–37; O2SAT 83–99
[2023-02-22] MEDS: Albuterol 2.5 MG/3 ML VIAL.NEB. INHALATION ×3 (08:07→20:15)
[2023-02-22] MEDS: Budesonide Respules 0.5 MG/2 ML AMPUL.NEB. INHALATION ×2 (08:07→20:15)
[2023-02-22] MEDS: Potassium Chloride Oral Tablet 10 MEQ PO (08:30)
[2023-02-22] MEDS: Furosemide 20 MG/2 ML VIAL IV (08:34)
[2023-02-22] MEDS: Mineral Oil/Petrolatum Cr 1.75oz Bottle 1 APPLIC TOPICAL (08:34)
[2023-02-22] MEDS: metFORMIN HCl 500 MG Tablet PO ×2 (08:35→16:55)
[2023-02-22] MEDS: Multivitamins,Ther W-Minerals Tablet 1 TABLET PO (08:35)
[2023-02-22] MEDS: Pantoprazole Sodium 20 MG Tablet PO (08:35)
[2023-02-22] MEDS: predniSONE 20 MG Tablet 40 MG PO (08:35)
[2023-02-22] MEDS: Carvedilol 3.125 MG TABLET PO ×2 (08:35→21:16)
[2023-02-22] MEDS: LINAGLIPTIN 5 MG TABLET PO (08:35)
[2023-02-22] MEDS: guaiFENesin 600 MG Tablet 1200 MG PO ×2 (08:36→21:16)
[2023-02-22] MEDS: Losartan Potassium 25 MG Tablet PO (08:36)
[2023-02-22] MEDS: Enoxaparin 40 MG/0.4 ML Syringe SC (08:36)
--- NOTE | 2023-02-22 10:22 | CASEMGMT ---
REI sent updates to [facility] on how much O2 he requires with exertion. REI also inquired the max O2 they can accept. Ainsley RENO
--- NOTE | 2023-02-22 11:39 | CASEMGMT ---
REI spoke with Mihaela from [facility]. Mihaela said that patient would need to be consistently between 3-4L and no more. They saw his O2 numbers from the last 24 hours and he has been between 5,6, and 7L. They are not comfortable with him coming back until he is on 3-4L consistently. REI notified physician and RN. Plan:d/c back to [facility] when O2 is consistently 3-4 and no more. Ainsley Arreaga COMPUGRAPH OPERATOR SHADIA
--- NOTE | 2023-02-22 12:38 | PCM.PN.HOSP ---
Reason for Visit Reason for Visit: Doing well, no issues overnight blood pressures much better controlled with the addition of Coreg. His ambulatory pulse ox did not require more than 4 L nasal cannula Objective Data Objective Data Vital Signs: Vital Signs Temp Pulse Resp BP Pulse Ox O2 Del Method O2 Flow Rate 97.4 F L 85 20 H 125/65 H 83 Nasal Cannula 2 02/22/23 09:22 02/22/23 09:22 02/22/23 09:22 02/22/23 09:22 02/22/23 10:33 02/22/23 10:15 02/22/23 10:33 Oxygen Flow Rate (L/min) [At 2 REST with Oxygen] Oxygen Flow Rate (L/min) 4 Oxygen Delivery Method Nasal Cannula Weight: 180 lb 1.883 oz Body Mass Index (BMI) 25.8 Intake & Output: Intake and Output for Last 24 Hours 02/21/23 02/22/23 02/23/23 03:59 03:59 03:59 Intake Total 2340 / 2340 2130 / 2130 800 / 800 Output Total 1800 / 1800 4000 / 4000 650 / 650 Balance 540 / 540 -1870 / -1870 150 / 150 Medical Nutrition Assessment Dietitian: Malnutrition Criteria Met Start: 02/20/23 10:28 Freq: Status: Active Protocol: Document 02/20/23 10:29 AG (Rec: 02/20/23 10:29 [id number]) Nutrition Malnutrition Evidence of Malnutrition Exists Yes Malnutrition (moderate): Acute Illness/Injury Evidenced By Suboptimal Energy Intake ( Moderate),Weight Loss ( Moderate) Clinical Problem Acute Disease or Injury Related Malnutrition Etiology moderate, acute malnutrition related to inadequate energy intake w/ recent acute illness Signs/Symptoms as evidenced by estimated PO intake meeting <75% of estimated energy needs > 1 week; unintentional wt loss of 12.9#/7% x ~1 month Status Active Problem Recommendation Dietitian Recommendations/Changes will adjust diet to regular/no added salt w/ chocolate milk at meals given acute malnutrition; will monitor blood glucose and add CHO controlled diet as appropriate . Lab / Micro Data Result Diagrams: 02/21/23 05:35 02/21/23 05:35 Micro: Microbiology 02/19/23 12:51 Sputum, Expectorated/Coughed Gram Stain - Final 02/19/23 12:51 Sputum, Expectorated/Coughed Respiratory Culture - Preliminary Yeast 02/19/23 12:47 Blood Culture (Wb) - Anticubital Left Blood Culture - Preliminary No growth in 48 hours. 02/19/23 23:35 Urine, Clean Catch Legionella Antigen - Final 02/19/23 23:35 Urine, Clean Catch Streptococcus pneumoniae Antigen (M - Final 02/19/23 12:58 Nasal Secretion SARS-CoV-2 & FLU Antigen (Rapid) - Final Physical Exam Narrative General: Alert, Oriented x3, Cooperative, No apparent distress HEENT: Atraumatic, PERRLA, EOMI, Normocephalic Oral: Moist Mucosa Neck: Supple, No JVD Lungs: Diminished, Normal air movement, No rhonchi, wheeze, No rales Cardiovascular: Tachycardic, Regular Rhythm, Normal S1, Normal S2, No murmurs Abdomen: Soft, Non Tender, Non-Distended, No Hepato-splenomegaly Extremities: No edema, Capillary Refill Less than 3 Seconds Skin: No rashes, No breakdown Musculoskeletal: No Tenderness to Palpation of Joints or Extremities Neurological: Motor Exam 5/5 strength throughout, Sensory exam intact to light touch and pain Psych/Mental Status: Normal Affect, Appropriate Assessment & Plan Assessment/Plan (1) Pneumonia: (2) COPD exacerbation: PLAN: Plan 1. Hypoxia due to healthcare associated pneumonia and COPD exacerbation ? CTA of the chest was negative for PE secondary to an elevated D-dimer ? There is evidence of a left lower lobe pneumonia, Legionella and strep antigens are negative and sputum culture appears to be normal elvira ? Continue with steroids and breathing treatments as well as antibiotics ?MRSA screen is negative, will discontinue vancomycin ?Did not feel that he had any disordered swallowing ? Despite his stability his facility will not take him back until he stays at 4 L nasal cannula 2. HTN ? Continue with losartan, will add Coreg ? Blood pressures are stable ?Continue with IV Lasix 3. DM2 ? Continue with his home metformin and linagliptin ? Continue to monitor and make adjustments as necessary especially since he is on steroids ? Accu-Cheks ACHS ? We will make adjustments as necessary 4. Schizophrenia ? He does have a guardian and he lives alf ? Continue with his home medications DVT: Lovenox Charges/Coding Visit Charges Inpatient E&M: 41561 Subs Hosp L2
[2023-02-22] MEDS: MELATONIN 10 MG TABLET PO (21:16)
[2023-02-22] MEDS: DiphenhydrAMINE 25 MG Capsule 50 MG PO (21:17)
[2023-02-22 22:27] LABS: Vancomycin, Trough Level 6.7 ug/mL (5.0-15.0)
[2023-02-23 03:30] VITALS: BP 120/63; PULSE 63; RESP 18; TEMP 36.4; O2SAT 92
[2023-02-23 03:57] LABS: Absolute Lymphocyte Count 1.07 X10^3/uL (0.83-4.51); Absolute Neutrophil Count 10.4 X10^3/uL (2.0-7.7); Basophil# 0.05 X10^3/uL; Basophil% 0.4 % (0-1); Eosinophil# 0.08 X10^3/uL; Eosinophils% 0.6 % (0-5); Hematocrit 35.4 % (40-54); Hemoglobin 11.2 g/dL (13.0-16.5); Lymphocyte # 1.07 X10^3/ul (0.83-4.51); Lymphocyte % 8.4 % (19-41); Mean Corp Hgb Conc 31.6 g/dL (32-36); Mean Corpuscular Hgb 27.2 pg (27.0-32.0); Mean Corpuscular Volume 85.9 fL (80-94); Mean Platelet Vol. 11.3 fl (6.2-12.0); Monocyte# 1.04 X10^3/uL; Monocyte% 8.1 % (0-10); NRBC Flagged by Analyzer 0 % (0-5); Neutrophil # 10.39 X10^3/uL (2.7-7.7); Neutrophil % 81.4 % (47-70); Platelet Count 244 K/mm3 (150-450); RBC Distribution Width SD 43.4 fl (35.1-43.9); Red Blood Count 4.12 M/mm3 (4.6-6.2); White Blood Count 12.8 K/mm3 (4.4-11.0)
[2023-02-23 04:43] LABS: Anion Gap 5 (5-15); BUN 22 mg/dL (7-18); Chloride 91 mmol/L (98-107); Creatinine, Serum 0.71 mg/dL (0.70-1.30); EST Glomerular Filtration Rate 118 mL/min (>60); Est Glom Filt Rate - Afr Amer 143 mL/min (>60); Estimated Creatinine Clearance 75.03 ml/min; Glucose 177 mg/dL (74-106); Potassium 3.7 mmol/L (3.5-5.1); Sodium Level 134 mmol/L (136-145)
[2023-02-23 07:08] VITALS: PULSE 112; RESP 20; O2SAT 94
[2023-02-23] MEDS: Budesonide Respules 0.5 MG/2 ML AMPUL.NEB. INHALATION (07:08)
[2023-02-23] MEDS: Albuterol 2.5 MG/3 ML VIAL.NEB. INHALATION (07:09)
[2023-02-23 08:49] VITALS: BP 188/82; PULSE 84; RESP 17; TEMP 36.6; O2SAT 91
[2023-02-23] MEDS: LINAGLIPTIN 5 MG TABLET PO (08:59)
[2023-02-23] MEDS: Carvedilol 3.125 MG TABLET PO (08:59)
[2023-02-23] MEDS: guaiFENesin 600 MG Tablet 1200 MG PO (08:59)
[2023-02-23] MEDS: predniSONE 20 MG Tablet 40 MG PO (08:59)
[2023-02-23] MEDS: Pantoprazole Sodium 20 MG Tablet PO (08:59)
[2023-02-23] MEDS: Losartan Potassium 25 MG Tablet PO (08:59)
[2023-02-23] MEDS: Multivitamins,Ther W-Minerals Tablet 1 TABLET PO (08:59)
[2023-02-23] MEDS: metFORMIN HCl 500 MG Tablet PO (08:59)
[2023-02-23] MEDS: Potassium Chloride Oral Tablet 10 MEQ PO (08:59)
--- NOTE | 2023-02-23 10:42 | PCM.TXEXTCAR ---
Diet Diet Order/Speech Therapy: 02/20/23 10:29 Diet: Regular - No Added Salt Is pt able to select menu?: Yes Diet Comments: chocolate milk w/ meals; extra 1-2 oz meat/protein Q meal Routine Orders/Code Status Routine Lab Work: CBC and BMP Code Status: Full Code Problem/Diagnosis (1) Pneumonia: Status: Acute Code(s): J18.9 - Pneumonia, unspecified organism (2) COPD exacerbation: Status: Chronic Code(s): J44.1 - Chronic obstructive pulmonary disease with (acute) exacerbation Plan 1. Hypoxia due to healthcare associated pneumonia and COPD exacerbation ? CTA of the chest was negative for PE secondary to an elevated D-dimer ? There is evidence of a left lower lobe pneumonia, Legionella and strep antigens are negative and sputum culture appears to be normal elvira ? Continue with steroids and breathing treatments as well as antibiotics ?MRSA screen is negative, will discontinue vancomycin ?Did not feel that he had any disordered swallowing ? Despite his stability his facility will not take him back until he stays at 4 L nasal cannula 2. HTN ? Continue with losartan, will add Coreg ? Blood pressures are stable ?Continue with IV Lasix 3. DM2 ? Continue with his home metformin and linagliptin ? Continue to monitor and make adjustments as necessary especially since he is on steroids ? Accu-Cheks ACHS ? We will make adjustments as necessary 4. Schizophrenia ? He does have a guardian and he lives snf ? Continue with his home medications DVT: Lovenox Allergies/Procedures Done in Hospital Allergies sulfamethoxazole Allergy (Mild, Verified 02/19/23 12:03) Unknown trimethoprim Allergy (Mild, Verified 02/19/23 12:03) Unknown Penicillins [PCN] Allergy (Verified 02/19/23 12:03) Unknown Type of Care/Length of Stay Estimated LOS: More Than 30 Days Type of Care Needed: Residential/Assisted Living Rehab Potential: Good Prognosis: Good Additional Orders/Day of Discharge Day of Discharge: 02/23/23 Dietary and Speech Recommendations Dietitian Recommendations/Changes: Will continue Regular/no added salt with chocolate milk at meals given acute malnutrition. Monitor blood glucose and add CHO controlled diet as appropriate. Will add extra 1-2 oz meat/protein Q meal as pt dislikes ensure supplements. Discharge Plan Admission Admit Date/Time: 02/19/23 16:03 Attending Provider: Silver Soto Primary Care Provider: Arely Flowers Consulting Providers: Piedad Fenton Discharge Orders/Prescriptions Prescriptions: New prednisone 20 mg Tablet 40 mg PO BREAKFAST 7 Days Qty: 14 0RF carvedilol 3.125 mg Tablet 3.125 mg PO BID 30 Days Qty: 60 0RF levofloxacin 750 mg tablet 750 mg PO DAILY Qty: 7 0RF Continued fluticasone propion-salmeterol [Advair Diskus] 250-50 mcg/dose blister with device 1 inh inhalation BID furosemide 20 mg tablet 20 mg PO DAILY potassium chloride 10 mEq capsule, extended release 10 meq PO DAILY guaifenesin 600 mg tablet extended release 12hr 1,200 mg PO BID Risperdal Consta 50 mg/2 mL suspension,extended rel recon 50 mg IM Q14D Januvia 50 mg tablet 50 mg PO DAILY lorazepam [Ativan] 0.5 mg tablet 0.5 mg PO BID PRN (Reason: INSOMNIA ) albuterol sulfate [Ventolin HFA] 1 INHALER inhaler 2 puff inhalation Q4H PRN (Reason: SHORTNESS OF BREATH/WHEEZING ) omeprazole 20 MG tablet,delayed release (DR/EC) 20 mg PO DAILY metformin 500 mg tablet 500 mg PO BID multivitamin,tx-minerals Tablet 1 tab PO DAILY Aquaphor Ointment 1 applic TOPICAL DAILY diphenhydramine HCl 25 mg Tablet 50 mg PO QHS Changed losartan 25 mg tablet 50 mg PO DAILY 1 Days Qty: 0 0RF Referrals / Follow Up: Arely Flowers MD [Primary Care Provider] - Within 1 Week Disposition Disposition (needs filled in before D/C Order can be placed): Assisted Living
[2023-02-23 11:19] VITALS: BP 172/68; PULSE 98; RESP 16; TEMP 36.6; O2SAT 91
--- NOTE | 2023-02-23 11:31 | NURSING ---
Spoke to Mihaela regarding oxygen requirement of 4l oxygen continuous and while ambulating. Patient is discharged. Mihaela stated ok to call report to send to [facility].
--- NOTE | 2023-02-23 11:32 | NURSING ---
I called [facility] to inform them pt will be d/c today however no one answered the phone. I informed Donis, also I will be faxing over the d/c paperwork.
[2023-02-23] MEDS: Furosemide 20 MG/2 ML VIAL IV (11:34)
[2023-02-23] MEDS: Enoxaparin 40 MG/0.4 ML Syringe SC (11:34)
--- NOTE | 2023-02-23 11:42 | NURSING ---
I left a message for Kelly the pt's Legal Guardian to return my call to inform her of pt's d/c and pickup time of 1330.
[2023-02-23 11:44] VITALS: O2SAT 90; O2SAT 91
--- NOTE | 2023-02-23 12:10 | NURSING ---
report called to Cindy at [facility]
--- NOTE | 2023-02-23 14:27 | DS.PCM_ITS ---
Providers Date of Admission: 02/19/23 Primary Care Physician: Dr. Arely Flowers MD Reason For Visit: HEALTH ASSOCIATED PNEUMONIA Diagnosis Discharge Diagnosis (1) Pneumonia: Status: Acute Code(s): J18.9 - Pneumonia, unspecified organism (2) COPD exacerbation: Status: Chronic Code(s): J44.1 - Chronic obstructive pulmonary disease with (acute) exacerbation Plan 1. Hypoxia due to healthcare associated pneumonia and COPD exacerbation ? CTA of the chest was negative for PE secondary to an elevated D-dimer ? There is evidence of a left lower lobe pneumonia, Legionella and strep antigens are negative and sputum culture appears to be normal elvira ? Continue with steroids and breathing treatments as well as antibiotics ?MRSA screen is negative, will discontinue vancomycin ?Did not feel that he had any disordered swallowing ? Despite his stability his facility will not take him back until he stays at 4 L nasal cannula 2. HTN ? Continue with losartan, will add Coreg ? Blood pressures are stable ?Continue with IV Lasix 3. DM2 ? Continue with his home metformin and linagliptin ? Continue to monitor and make adjustments as necessary especially since he is on steroids ? Accu-Cheks ACHS ? We will make adjustments as necessary 4. Schizophrenia ? He does have a guardian and he lives [facility] ? Continue with his home medications DVT: Lovenox Medications at Discharge Home Medications albuterol sulfate 90 mcg/actuation aerosol inhaler (Ventolin HFA) 2 puff inhal ation Q4H PRN SHORTNESS OF BREATH/WHEEZING 03/03/19 omeprazole 20 mg tablet,delayed release 20 mg PO DAILY ACID REFLUX 03/03/19 fluticasone 250 mcg-salmeterol 50 mcg/dose blistr powdr for inhalation (Advair Diskus) 1 inh inhalation BID COPD 12/28/21 furosemide 20 mg tablet 20 mg PO DAILY FLUID 12/28/21 potassium chloride 10 mEq capsule,extended release 10 meq PO DAILY SUPPLEMENT 12/28/21 metformin 500 mg tablet 500 mg PO BID DIABETES 04/13/22 guaifenesin 600 mg tablet, extended release 12 hr 1,200 mg PO BID COUGH 05/14/22 risperidone microspheres 50 mg/2 mL intramuscular susp,ext release (Risperdal Consta) 50 mg IM Q14D MENTAL HEALTH 05/14/22 sitagliptin phosphate 50 mg tablet (Januvia) 50 mg PO DAILY DIABETES 05/14/22 diphenhydramine HCl 25 mg tablet 50 mg PO QHS SEASONAL ALLERGIES 02/19/23 lorazepam 0.5 mg tablet (Ativan) 0.5 mg PO BID PRN INSOMNIA 02/19/23 mineral oil-hydrophil petrolat topical ointment (Aquaphor topical ointment) 1 applic topical DAILY LEGS 02/19/23 multivitamin,tx-minerals 1 tab PO DAILY SUPPLEMENT 02/19/23 carvedilol 3.125 mg tablet 3.125 mg PO BID 30 days #60 tabs 02/23/23 levofloxacin 750 mg tablet 750 mg PO DAILY #7 tabs 02/23/23 losartan 25 mg tablet 50 mg PO DAILY BLOOD PRESSURE 1 day #0 tabs 02/23/23 prednisone 20 mg tablet 40 mg PO BREAKFAST 7 days #14 tabs 02/23/23 Hospital Course Operations None Procedures None Summary of Care Provided Minutes Spent on Discharge: 37 Hospital Course: Per HPI: BRENDA GRIMALDO, is a 67 M who presents via the ED on 02/19/2023 with a complaint of shortness of breath. He was brought in from Dr Rodrigez's office wher e he presented with a complaint of shortness of breath. He is on 3L of oxygen at the [facility]. HE doesnt wear his oxygen all the time. He was admitted recently at [facility] for pneumonia and was sent to [facility]. He was sent on 4L of oxygen, but doesnt wear it all the time. He doesnt wear his oxygen all the time. HE was noted to have elevated BP in the ED as well. He denied any fever, chills, chest pain, palpitations, dizziness, nausea, vomiting or any other symptoms. REview of systems was otherwise negative. Vitals in the ED were BP of 175/85, NJ of 105 and RR of 19.? He was saturating at 97% on 4 L of oxygen.? CBC showed WBC of 13.1 hemoglobin of 12.5 as well as platelets of 341.? D-dimer was elevated at 1.1.? Chemistry showed sodium of 133 and bicarb of 41 as well as potassium of 4.? Initial troponin was 14 and BNP was 27.7.? Chest x-ray showed minimal left lower lobe infiltrate, atelectasis or scarring.? CTA of the chest done on account of elevated D-dimer was negative for any evidence of PE but did show a left lower lobe consolidation.? He has been admitted to be managed for recurrent pneumonia.? Sputum culture done in the ED and preliminary results showing gram-positive cocci. Hospital Course: 1. Hypoxia secondary to healthcare associated pneumonia and COPD exacerbation? 67-year-old male with had frequent episodes of pneumonia presents to the hospital with hypoxia as well as pneumonia and a likely COPD exacerbation. He did have a CTA on admission of his chest secondary to an elevated D-dimer which was negative for PE. He did have a left lower lobe pneumonia and speech therapy was consulted to rule out aspiration which they did. Legionella and strep antigens were negative sputum cultures are normal elvira and MRSA screen is negative. Since he is allergic to penicillins we will plan for 7 more days of Levaquin on discharge. I also recommend another 7 days of p.o. prednisone as well. We will resume his oral diuresis on discharge as well. I discussed with him the plan for discharge today and he expressed understanding of the risk benefits of going back to his assisted living and he would like to go back today if possible. 2. Hypertension?he has been hypertensive and tachycardic while he is been here despite his losartan and his Lasix. I did add Coreg to his regimen which should control his heart rate and has helped with his blood pressure, on discharge would recommend titrating his Coreg up as necessary and I did also increase his losartan from 25 mg p.o. to 50 mg p.o. daily. 3. Type 2 diabetes and schizophrenia chronic medical conditions which complicate his care. His home medications were continued where appropriate Physical Exam Narrative General: Alert, Oriented x3, Cooperative, No apparent distress HEENT: Atraumatic, PERRLA, EOMI, Normocephalic Oral: Moist Mucosa Neck: Supple, No JVD Lungs: Diminished, Normal air movement, No rhonchi, wheeze, No rales Cardiovascular: Regular rate, Regular Rhythm, Normal S1, Normal S2, No murmurs Abdomen: Soft, Non Tender, Non-Distended, No Hepato-splenomegaly Extremities: No edema, Capillary Refill Less than 3 Seconds Skin: No rashes, No breakdown Musculoskeletal: No Tenderness to Palpation of Joints or Extremities Neurological: Motor Exam 5/5 strength throughout, Sensory exam intact to light touch and pain Psych/Mental Status: Normal Affect, Appropriate Weight / BMI Weight Weight: 180 lb 1.883 oz Body Mass Index (BMI) 25.8 ABG / Lab / Microbiology Data Result Diagrams: 02/23/23 03:37 02/23/23 03:37 Laboratory: Laboratory Results - last 24 hr 02/22/23 21:30: Vancomycin Trough 6.7 02/23/23 03:37: WBC 12.8 H, RBC 4.12 L, Hgb 11.2 L, Hct 35.4 L, MCV 85.9, MCH 27.2, MCHC 31.6 L, RDW Std Deviation 43.4, RDW Coeff of Vicente 14.0, Plt Count 244, MPV 11.3, Immature Gran % (Auto) 1.100 H, Neut % (Auto) 81.4 H, Lymph % (Auto) 8.4 L, [place] % (Auto) 8.1, Eos % (Auto) 0.6, Baso % (Auto) 0.4, Absolute Neuts (auto) 10.4 H, Absolute Lymphs (auto) 1.07, Nucleated RBC % 0 02/23/23 03:37: Sodium 134 L, Potassium 3.7, Chloride 91 L, Carbon Dioxide 38.0 H, Anion Gap 5, BUN 22 H, Creatinine 0.71, Estim Creat Clear Calc 75.03, Est GFR (MDRD) Af Amer 143, Est GFR (MDRD) Non-Af 118, BUN/Creatinine Ratio 31.0 H, Glucose 177 H, Calcium 9.0 Microbiology: Microbiology 02/23/23 11:40 Nasal Secretion SARS-CoV-2 Antigen (Rapid) - Final 02/19/23 12:51 Sputum, Expectorated/Coughed Gram Stain - Final 02/19/23 12:51 Sputum, Expectorated/Coughed Respiratory Culture - Final Presumptive C albicans 02/19/23 12:47 Blood Culture (Wb) - Anticubital Left Blood Culture - Preliminary No growth in 48 hours. 02/19/23 23:35 Urine, Clean Catch Legionella Antigen - Final 02/19/23 23:35 Urine, Clean Catch Streptococcus pneumoniae Antigen (M - Final 02/19/23 12:58 Nasal Secretion SARS-CoV-2 & FLU Antigen (Rapid) - Final Meaningful Use Info Meaningful Use Diagnoses (Choose all that apply): None applicable Discharge Plan Admission Admit Date/Time: 02/19/23 16:03 Attending Provider: Silver Soto Primary Care Provider: Arely Flowers Consulting Providers: Piedad Fenton Discharge Orders/Prescriptions Prescriptions: New prednisone 20 mg Tablet 40 mg PO BREAKFAST 7 Days Qty: 14 0RF carvedilol 3.125 mg Tablet 3.125 mg PO BID 30 Days Qty: 60 0RF levofloxacin 750 mg tablet 750 mg PO DAILY Qty: 7 0RF Continued fluticasone propion-salmeterol [Advair Diskus] 250-50 mcg/dose blister with device 1 inh inhalation BID furosemide 20 mg tablet 20 mg PO DAILY potassium chloride 10 mEq capsule, extended release 10 meq PO DAILY guaifenesin 600 mg tablet extended release 12hr 1,200 mg PO BID Risperdal Consta 50 mg/2 mL suspension,extended rel recon 50 mg IM Q14D Januvia 50 mg tablet 50 mg PO DAILY lorazepam [Ativan] 0.5 mg tablet 0.5 mg PO BID PRN (Reason: INSOMNIA ) albuterol sulfate [Ventolin HFA] 1 INHALER inhaler 2 puff inhalation Q4H PRN (Reason: SHORTNESS OF BREATH/WHEEZING ) omeprazole 20 MG tablet,delayed release (DR/EC) 20 mg PO DAILY metformin 500 mg tablet 500 mg PO BID multivitamin,tx-minerals Tablet 1 tab PO DAILY Aquaphor Ointment 1 applic TOPICAL DAILY diphenhydramine HCl 25 mg Tablet 50 mg PO QHS Changed losartan 25 mg tablet 50 mg PO DAILY 1 Days Qty: 0 0RF Referrals / Follow Up: Arely Flowers MD [Primary Care Provider] - Within 1 Week Disposition Disposition (needs filled in before D/C Order can be placed): Detention Facility Charges/Coding Visit Charges Inpatient E&M: 28936 Disch Hosp >30min
== END 2023-02-23 13:26 | disposition skilled nursing facility (03) | DRG 194 ==
LOC: ED 17:20 → PCU 17:43
PROVIDERS: Admitting Provider Student in an Organized Health Care Education/Training Program; Emergency Provider Emergency Medicine; PCP Internal Medicine Infectious Disease; Visit Provider Family Medicine
DX: J18.9 Pneumonia, unspecified organism (principal); J44.0 Chronic obstructive pulmonary disease with (acute) lower respiratory infection; E44.0 Moderate protein-calorie malnutrition; J44.1 Chronic obstructive pulmonary disease with (acute) exacerbation; E11.9 Type 2 diabetes mellitus without complications; F20.9 Schizophrenia, unspecified; F17.210 Nicotine dependence, cigarettes, uncomplicated; I10 Essential (primary) hypertension; Y95 Nosocomial condition; R09.02 Hypoxemia; Z68.26 Body mass index [BMI] 26.0-26.9, adult; Z20.822 Contact with and (suspected) exposure to COVID-19; Z88.0 Allergy status to penicillin; Z79.51 Long term (current) use of inhaled steroids; Z79.84 Long term (current) use of oral hypoglycemic drugs; Z79.899 Other long term (current) drug therapy; Z91.199 Patient's noncompliance with other medical treatment and regimen due to unspecified reason
CPT/HCPCS: 36415; 71045; 71275; 80048; 80202; 83605; 83880; 84484; 85025; 85379; 87040; 87070; 87205; 87428; 87449; 87641; 87811; 92526; 92610; 93005; 94640; 97802; 97803; 99285; 99406; J7030; J7040; A4216; J1940

== ENCOUNTER → 2023-05-16 | Outpatient (CLI) | payer MEDICARE, MEDICAID, SELFPAY ==
--- NOTE | 2023-05-16 07:55 | CT_ITS ---
STUDY: LOW DOSE CT LUNG CANCER SCREENING REASON FOR EXAM: Male, 67 years old. Patient smokes half a pack per day for 46 years. History of emphysema. RADIATION DOSAGE (If Supplied By Facility): CTDIvol = ( 3.02 ) mGy, DLP = ( 96.66 ) mGycm TECHNIQUE: No contrast was administered. Low dose technique was utilized (average mAS-38 and kVp 120). 1.25 mm axial source images with a slice interval of 1.25-mm were reconstructed in lung windows. 2.5 mm axial source images with a slice interval of 2.5-mm were reconstructed in lung windows. 5.0 mm axial source images with a slice interval of 5.0-mm were reconstructed in soft tissue windows. COMPARISON: Comparison is made with prior study dated February 19, 2023. Emphysema: Scarring at the lung apices slightly more prominent on the right side. Bull[place] are seen in the medial aspect of the left upper lobe. Mild degree of hydrocephalus changes. Stable linear scarring in the anterior lingular segment of the left upper lobe. Left lower lobe with the thickening of the right minor fissure and small nodules in the fissure. Correlation with a PET scan is recommended. Left lower lobe. Correlation with a PET scan is recommended. There is also thickening of the right minor fissure with linear pleural-based nodules along the fissure. This is new as compared to prior study. Endobronchial lesion: None Aorta: Atherosclerotic plaque formation. CORONARY ARTERIES: Coronary artery calcification is seen. Heart: Unremarkable Pulmonary artery: Unremarkable Mediastinal nodes: Small mediastinal lymph nodes. Other chest and abdominal findings: Degenerative changes of the thoracic vertebrae. Stable hyperplasia of the adrenal glands. CT/Low Dose CT Lung Screening IMPRESSION: IMPORTANT NOTES FOR USE: ACR Lung-RADS Version 1.1 Assessment Categories Release Date: 2018 Category: Coded 0-4 bases on nodule(s) with highest degree of suspicion. Negative screen is defined as categories 1 and 2; a positive screen is defined as categories 3 and 4. Category 3 and 4A nodules that are unchanged on interval CT should be coded as category 2, and individuals returned to screening in 12 months. Category 4X: Category 3 or 4 nodules with additional imaging findings that increase the suspicion of lung cancer, such as spiculation, GGN that doubles in size in 1 year, enlarged lymph notes, etc. Category Modifiers: S (significant finding unrelated to lung cancer) Electronically Signed: Portillo Crmaer MD at 11:14 EDT ,
== END | disposition home or self-care (01) ==
LOC: CT 07:52
PROVIDERS: PCP Internal Medicine Infectious Disease; Referring Provider Nurse Practitioner Acute Care; Visit Provider Nurse Practitioner Acute Care
DX: F17.210 Nicotine dependence, cigarettes, uncomplicated (principal)
CPT/HCPCS: 71271

== ENCOUNTER → 2023-08-30 | Outpatient (CLI) | payer MEDICARE, MEDICAID, SELFPAY ==
--- NOTE | 2023-08-30 08:00 | CT_ITS ---
INDICATION: Chest pain/pressure EXAMINATION: CT CHEST WITHOUT CONTRAST - CT Chest W/O Contrast Injection TECHNIQUE: Helically acquired images were obtained of the chest. A radiation dose optimization technique was used for this scan. IV Contrast dosage and agent: None. COMPARISON: 05/16/2023 FINDINGS: LUNGS, PLEURA AND LARGE AIRWAYS: Lung windows show underlying emphysema. No organized infiltrate, or effusion, no suspicious noncalcified mass or nodule. Stable fibrotic scarring in the left lower lobe with associated effusion. No interval change since the previous study. THYROID: No thyroid lesions. HEART AND PERICARDIUM: Heart size is normal. No pericardial effusion. CORONARY ARTERIES: Coronary artery calcification is not seen. VESSELS: Thoracic aorta is not dilated. MEDIASTINUM AND STEVE: No suspicious axillary, mediastinal or hilar adenopathy. Esophagus is unremarkable. No hiatal hernia. UPPER ABDOMEN: No acute pathology. BONES: Bony structures show degenerative change CT/Chest without Contrast IMPRESSION: Underlying emphysema with stable fibrotic scarring in the left lung base and small left pleural effusion. No organized infiltrate, or suspicious noncalcified mass or nodule. No interval change. Degenerative bony changes No suspicious adenopathy Electronically Signed: Faustino Patino MD at 14:00 EST ,
== END | disposition home or self-care (01) ==
LOC: CT 07:55
PROVIDERS: PCP Internal Medicine Infectious Disease; Referring Provider Nurse Practitioner Acute Care; Visit Provider Nurse Practitioner Acute Care
DX: R91.1 Solitary pulmonary nodule (principal)
CPT/HCPCS: 71250

== ENCOUNTER → 2023-12-19 | Outpatient (CLI) | payer MEDICARE, MEDICAID, SELFPAY ==
--- NOTE | 2023-12-19 07:51 | CT_ITS ---
STUDY: CT CHEST WITHOUT CONTRAST REASON FOR EXAM: Male, 68 years old. History of pulmonary nodule. RADIATION DOSAGE (If Supplied By Facility): CTDIvol = ( 11.49 ) mGy, DLP = ( 439.25 ) mGycm TECHNIQUE: Transaxial imaging was performed without the administration of intravenous contrast material. Multiplanar coronal and sagittal images were reformatted. Individualized dose optimization techniques were used for this CT. COMPARISON: Comparison is made with prior study May 16, 2023. FINDINGS: CHEST Mild degree of emphysematous changes more prominent in the upper lobes. Consolidation in the left lower lobe with airspace disease and minimal pleural thickening. Focal irregular infiltrate in the posterior medial segment of the right lower lobe with air bronchograms. Mild degree of pleural thickening. There are calcifications of the coronary arteries. Normal mediastinum. Normal hilar regions. Normal unenhanced pulmonary arteries. There is atherosclerotic calcification of the aortic arch with tortuosity and elongation of the aortic arch and descending thoracic aorta. 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 There are multi-level degenerative changes of the thoracic spine. There is a 3.5 cm x 1.7 cm fat-containing nodule in the right adrenal gland. A similar-appearing nodule is seen in the left adrenal gland measuring 1.9 cm. These most likely represent bilateral adrenal adenomas. CT/Chest without Contrast IMPRESSION: Progressive left lower lobe infiltrate with small left pleural effusion. Irregular infiltrate in the posterior medial segment of the right lower lobe. This was not seen on prior study. Three-month follow-up is recommended. Electronically Signed: Portillo Cramer MD at 9:13 EDT ,
== END | disposition home or self-care (01) ==
LOC: CT 07:51
PROVIDERS: PCP Internal Medicine Infectious Disease; Referring Provider Internal Medicine Critical Care Medicine; Visit Provider Internal Medicine Critical Care Medicine
DX: R91.1 Solitary pulmonary nodule (principal)
CPT/HCPCS: 71250

== ENCOUNTER → 2024-03-23 | Outpatient (CLI) | payer MEDICARE, MEDICAID, SELFPAY ==
--- NOTE | 2024-03-23 14:31 | CT_ITS ---
STUDY: CT CHEST WITHOUT CONTRAST REASON FOR EXAM: Male, 68 years old. New nodule RADIATION DOSAGE (If Supplied By Facility): CTDIvol = ( 8.59 ) mGy, DLP = ( 289.68 ) mGycm TECHNIQUE: Transaxial imaging was performed without the administration of intravenous contrast material. Multiplanar coronal and sagittal images were reformatted. Individualized dose optimization techniques were used for this CT. COMPARISON: Comparison is made with prior study dated December 19, 2023. FINDINGS: CHEST Mild degree of biapical scarring. Since prior study, there has been progressive airspace disease in both lower lobes. Tiny bilateral pleural effusions. There are calcifications of the coronary arteries. Normal mediastinum. Normal hilar regions. Normal unenhanced pulmonary arteries. There is atherosclerotic calcification of the aortic arch. 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 There are multi-level degenerative changes of the thoracic spine. Stable bilateral adrenal adenomas. CT/Chest without Contrast IMPRESSION: Progressive bibasilar infiltrates with airspace disease and small bilateral pleural effusions. Electronically Signed: Portillo Cramer MD at 8:29 EDT ,
== END | disposition home or self-care (01) ==
LOC: CT 14:29
PROVIDERS: PCP Internal Medicine Infectious Disease; Referring Provider Nurse Practitioner Acute Care; Visit Provider Nurse Practitioner Acute Care
DX: R91.1 Solitary pulmonary nodule (principal)
CPT/HCPCS: 71250

== ENCOUNTER → 2025-03-08 | Outpatient (CLI) | payer MEDICARE, MEDICAID, SELFPAY ==
--- NOTE | 2025-03-08 13:25 | CT_ITS ---
PROCEDURE: LOW DOSE CT LUNG SCREENING 03/08/2025 REASON FOR EXAM: SMOKER TECHNIQUE: Low Dose CT Lung screening without contrast. Coronal and Sagittal reconstruction series were provided. One or more dose reduction techniques were used (e.g., Automated exposure control, adjustment of the mA and/or kV according to patient size, use of iterative reconstruction technique). REFERENCE LINK: [employer] Lung-RADS RADIATION DOSE SUMMARY: CTDlvol: 3.0 mGy DLP: 111 mGycm COMPARISON: CT chest 03/23/2024 FINDINGS: Hardware:None. Lymph Nodes:Mild thoracic lymphadenopathy is unchanged. Heart and Vasculature:No significant cardiomegaly. Mitral annular and aortic valvular calcifications. Mild coronary calcifications. Mild aortic atherosclerosis. Aberrant right subclavian artery. Lungs and Airways: Scattered nonobstructing debris in the trachea. Centrilobular and paraseptal emphysema. There is interval worsening in right lower lobe collapse, now near-complete. There is volume loss with traction bronchiectasis in the left lower lobe, similar to prior. No suspicious pulmonary nodule. Pleura:Trace bilateral pleural effusions, [id number]. Upper Abdomen:Thickening of both adrenal glands without discrete nodularity on this limited evaluation. There is suggestion of a gallstone which is incompletely imaged. Bones:Degenerative changes of the thoracic spine. CT/Low Dose CT Lung Screening IMPRESSION: Lung-RADS Category: 0 INFLAMMATORY-INCOMPLETE. FINDINGS SUGGESTIVE OF AN INFLAM MATORY OR INFECTIOUS PROCESS. RECOMMEND 1-3 MONTH LDCT. Other Significant Findings: Complete atelectasis of the right lower lobe, inter vally progressed from most recent CT on 03/23/2024. An endobronchial neoplasm would be difficult to exclude. Addition ally, there is volume loss with traction bronchiectasis in the left lower lobe. Trace bilateral pleural effusions, [id number] [id number]. Recommend Pulmonology referral if not previously performed. Reading Location: [facility]
== END | disposition home or self-care (01) ==
LOC: CT 13:17
PROVIDERS: PCP Internal Medicine Infectious Disease; Referring Provider Nurse Practitioner Acute Care; Visit Provider Nurse Practitioner Acute Care
DX: F17.210 Nicotine dependence, cigarettes, uncomplicated (principal)
CPT/HCPCS: 71271

== ENCOUNTER 2025-04-02 11:01 | Day surgery (SDC) | payer MEDICARE, MEDICAID, SELFPAY ==
--- NOTE | 2025-03-30 13:00 | PCM.HP.STD ---
HPI - General HPI Narrative The patient is a 69-year-old male who was previously under the care of Dr. Samuel Rodrigez until his departure. The patient has a known history of COPD, chronic tobacco dependency, chronic combined respiratory failure and abnormal CT imaging of the chest. Low-dose CT imaging of the chest that was completed in March 2025 demonstrated scattered nonobstructing debris in the trachea along with worsening right lower lobe collapse, which was present on prior chest imaging. In order to evaluate for any retained secretions or endobronchial lesions, it was recommended that the patient undergo bronchoscopy for airway evaluation. PFSH Medical History Major depressive disorder Allergic rhinitis Paraphilia Dystonia Peripheral venous insufficiency Calculus of gallbladder and bile duct w/o cholecystitis or obstruction Cataract Hypokalemia Dementia Chronic respiratory failure with hypoxia and hypercapnia Simple chronic bronchitis COPD with respiratory failure, acute Elevated fecal calprotectin Diarrhea Hyperthyroidism Hypo-osmolality and hyponatremia GERD (gastroesophageal reflux disease) Localized edema Hypertension Diabetes Schizophrenia Anxiety Depression COPD (chronic obstructive pulmonary disease) Smoker Home Medications ?Medication ?Instructions ?Recorded ?Last Taken ?Type omeprazole 20 mg tablet,delayed 20 mg PO DAILY ACID REFLUX 03/03/19 02/19/23 06:00 History release metformin 500 mg tablet 500 mg PO BID DIABETES 04/13/22 02/19/23 06:00 History risperidone microspheres 50 mg/2 50 mg IM Q14D MENTAL HEALTH 05/14/22 02/15/23 History mL intramuscular susp,ext release (Risperdal Consta) carvedilol 3.125 mg tablet 6.25 mg PO BID 01/10/24 Unknown History deutetrabenazine 6 mg tablet 6 mg PO DAILY 01/10/24 Unknown History (Austedo) methyl salicylate 15 %-menthol 10 1 applic topical Q4 PRN 01/10/24 Unknown History % topical cream (Muscle Rub) prednisone 10 mg tablet 10 mg PO QDAY #30 tabs 01/10/24 Unknown Rx albuterol sulfate 90 mcg/actuation 2 puff inhalation Q4H PRN 04/14/24 Unknown Rx aerosol inhaler (Ventolin HFA) SHORTNESS OF BREATH/WHEEZING #8.5 grams fluticasone propionate 50 2 spray intranasal DAILY #16 grams 04/14/24 Unknown Rx mcg/actuation nasal spray,suspension guaifenesin 600 mg tablet, 600 mg PO BID COUGH #90 tabs 04/14/24 Unknown Rx extended release 12 hr acetaminophen 325 mg tablet 650 mg PO Q4H PRN 08/12/24 Unknown History (Tylenol) bumetanide 1 mg tablet 1 mg PO BID 08/12/24 Unknown History potassium chloride 10 mEq 20 meq PO DAILY SUPPLEMENT 08/12/24 Unknown History capsule,extended release albuterol sulfate 90 mcg/actuation 2 puff inhalation Q6H PRN 03/17/25 Unknown History aerosol inhaler (Ventolin HFA) fluticasone 250 mcg-salmeterol 50 1 inh inhalation BID 03/17/25 Unknown History mcg/dose blistr powdr for inhalation glimepiride 4 mg tablet 4 mg PO QAM 03/17/25 Unknown History ipratropium 0.5 mg-albuterol 3 mg 3 ml inhalation Q4-6H PRN 03/17/25 Unknown History (2.5 mg base)/3 mL nebulization soln losartan 50 mg tablet 50 mg PO QDAY 03/17/25 Unknown History sitagliptin 50 mg tablet 50 mg PO QDAY 03/17/25 Unknown History tiotropium bromide 2.5 2 inh inhalation QAM 03/17/25 Unknown History mcg/actuation mist for inhalation (Spiriva Respimat) Allergy/AdvReac Type Severity Reaction Status Date / Time sulfamethoxazole Allergy Mild Unknown Verified 03/17/25 15:08 trimethoprim Allergy Mild Unknown Verified 03/17/25 15:08 bismuth subsalicylate (From Allergy unknown Verified 03/17/25 15:08 Pepto-Bismol) Penicillins (PCN) Allergy Unknown Verified 03/17/25 15:08 Family History Father , at 87 Heart disease Obesity Mother , at 81 Emphysema lung Surgical History History of dental surgery Social History household members: none Smoking Status: Current every day smoker tobacco type: cigarettes alcohol intake: current alcohol intake frequency: other substance use type: does not use ROS ROS Narrative 10 systems were reviewed with pertinent positives as noted in the HPI. Physical Exam Const alert and no apparent distress General Appearance: cooperative HEENT normocephalic and head/scalp atraumatic Eyes PERRL Neck supple General: trachea midline Resp normal respiratory effort Auscultation: diminished lung sounds Cardio regular rate and regular rhythm GI normal to inspection, nondistended, normoactive bowel sounds Extremity no clubbing, cyanosis or edema Skin General Skin Exam: no breakdown Neuro CN's II-XII intact bilaterally and no focal motor deficits Psych cooperative Mood & Affect: flat affect Assessment & Plan Assessment/Plan (1) Abnormal CT of the chest: PLAN: The patient's CT imaging of the chest as demonstrated progressive right lower lobe collapse, concerning for retained secretions versus endobronchial lesion. Therefore, recommend proceeding with bronchoscopy with airway evaluation along with therapeutic airway suctioning and/or endobronchial biopsies, if clinically indicated. Risks and benefits of the proposed procedure were discussed with the patient. Consent was obtained.
--- NOTE | 2025-04-01 14:23 | PAT.ANE_ITS ---
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 When Was Last Pacemaker Check QUESTION #4 FULL TEXT: You/Your Family Experience fever (hyperthermia) with Anesthesia Last Oral Intake Last Oral intake: Last Oral Intake NPO since Meds taken in AM with sips of water? Meds patient instructed to take am of surgery PONV PONV - intelligent systems engineer: PONV - intelligent systems engineer Female No 04/01/25 11:41 HX of Motion Sickness No 04/01/25 11:41 HX of N/V After Surgery No 04/01/25 11:41 Non-Smoker No 04/01/25 11:41 Duration of Surgery greater No 04/01/25 11:41 than 60 minutes Number of Risk Factors PONV Score Height & Weight Height & Weight: Anesthesia: Height & Weight Height 5 ft 10 in 03/17/25 09:28 Respiratory Assessment Respiratory Assessment - intelligent systems engineer: Respiratory Tract Infection Hx - intelligent systems engineer Hx Respiratory Tract Infection No 04/01/25 11:41 STOP Sleep Apnea STOP Sleep Apnea - intelligent systems engineer: STOP Sleep Apnea - intelligent systems engineer Hx Hypertension Yes 04/01/25 11:41 Hx Sleep Apnea Yes 04/01/25 11:41 CPAP No 04/01/25 11:41 BIPAP Yes: WITH 3L O2 04/01/25 11:41 Do you snore loudly (louder than talking or can be heard Do you often feel tired/ fatigued/ sleepy during daytime? Has anyone observed you stop breathing during sleep? STOP Results Positive 04/01/25 11:41 QUESTION #5 FULL TEXT : Do you snore loudly (louder than talking or can be heard through closed doors)? 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 Specify any problems Hx of Preganancy in last 3 Months Nurse Filling Out Transfusion & Questions: Date: Time: Patient unable to answer at Yes 04/01/25 11:41 this time (ie. confused, unrespo /Reproduction History /Reproductive History - intelligent systems engineer: /Reproductive Hx- intelligent systems engineer Hx Now No 04/01/25 11:41 Gestational Age (in weeks): EDC: Hx Hx Para Hx Section SAB No 04/01/25 11:41 PFSH Medical History BiPAP (biphasic positive airway pressure) dependence Sleep apnea On home oxygen therapy History of edema Major depressive disorder Allergic rhinitis Paraphilia Dystonia Peripheral venous insufficiency Calculus of gallbladder and bile duct w/o cholecystitis or obstruction Cataract Hypokalemia Dementia Chronic respiratory failure with hypoxia and hypercapnia Simple chronic bronchitis COPD with respiratory failure, acute Elevated fecal calprotectin Diarrhea Hyperthyroidism Hypo-osmolality and hyponatremia GERD (gastroesophageal reflux disease) Localized edema Hypertension Diabetes Schizophrenia Anxiety Depression COPD (chronic obstructive pulmonary disease) Smoker Home Medications ?Medication ?Instructions ?Recorded ?Last Taken ?Type omeprazole 20 mg tablet,delayed 20 mg PO DAILY ACID RE FLUX 03/03/19 02/19/23 06:00 History release metformin 500 mg tablet 500 mg PO BID DIABETES 04/1302/19/23 06:00 History risperidone microspheres 50 mg/2 50 mg IM Q14D MENTAL HEALTH 05/14/22 02/15/23 History mL intramuscular susp,ext release (Risperdal Consta) carvedilol 3.125 mg tablet 6.25 mg PO BID 01/10/24 Unk nown History deutetrabenazine 6 mg tablet 6 mg PO DAILY 01/10/24 Un known History (Austedo) methyl salicylate 15 %-menthol 10 1 applic topical Q4 PRN muscle pain 01/10/24 Unknown History % topical cream (Muscle Rub) prednisone 10 mg tablet 10 mg PO QDAY #30 tabs 01/09 Unknown Rx fluticasone propionate 50 2 spray intranasal DAILY #16 grams 04/14/24 Unknown Rx mcg/actuation nasal spray,suspension guaifenesin 600 mg tablet, 600 mg PO BID COUGH #90 tab s 04/14/24 Unknown Rx extended release 12 hr acetaminophen 325 mg tablet 650 mg PO Q4H PRN pain 03/30 Unknown History (Tylenol) bumetanide 1 mg tablet 1 mg PO BID 08/12/24 Unknown History potassium chloride 10 mEq 20 meq PO DAILY SUPPLEMENT 1 10/12/23 Unknown History capsule,extended release albuterol sulfate 90 mcg/actuation 2 puff inhalation Q 6H PRN 03/17/25 Unknown History aerosol inhaler (Ventolin HFA) shortness of breath or wheezing fluticasone 250 mcg-salmeterol 50 1 inh inhalation BID 03/17/25 Unknown History mcg/dose blistr powdr for inhalation glimepiride 4 mg tablet 4 mg PO QAM 03/17/25 Unknown History ipratropium 0.5 mg-albuterol 3 mg 3 ml inhalation 4X/D AY 03/17/25 Unknown Hi story (2.5 mg base)/3 mL nebulization soln losartan 50 mg tablet 50 mg PO QDAY 03/17/25 Unkno wn History sitagliptin 50 mg tablet 50 mg PO QDAY 03/17/25 Unkno wn History tiotropium bromide 2.5 2 inh inhalation QAM 5 Unknown History mcg/actuation mist for inhalation (Spiriva Respimat) lorazepam 1 mg tablet 1 mg PO BID 04/01/25 Unknown History Allergy/AdvReac Type Severity Reaction Status Date / Time sulfamethoxazole Allergy Mild Unknown Verified 04/01/25 11:22 trimethoprim Allergy Mild Unknown Verified 04/01/25 11:22 bismuth subsalicylate (From Allergy unknown Verified 04/01/25 11:22 Pepto-Bismol) Penicillins (PCN) Allergy Unknown Verified 04/01/25 11:22 Family History Father , at 87 Heart disease Obesity Mother , at 81 Emphysema lung Surgical History (Updated 04/01/25 @ 11:54 by Lesli Haas) History of foot surgery History of dental surgery Social History household members: none Smoking Status: Current every day smoker tobacco type: cigarettes alcohol intake: current alcohol intake frequency: other substance use type: does not use Audit: Pertinent Findings Pertinent Findings EKG Perinent findings: February 19, 2023. Sinus tachycardia 105 bpm. Right atrial enlargement. Echo (EF%) pertinent findings: November 18, 2018. EF 60%. PASP is 25 mmHg. No aortic valve stenosis is noted. Pulmonary function results/spirometer pertinent findings: August 01, 2022. Partially reversible severe mixed ventilatory defect with relatively preserved diffusing capacity. Recommendation Anesthesia Recommendation Anesthesia recommendation: OPTIMIZED for anesthesia (Patient did respond to bronchodilators on his pulmonary function test. Would consider nebulizer treatment sooner rather than later.)
[2025-04-02] VITALS (8 sets, daily range): BP systolic 103–118; BP diastolic 60–79; PULSE 70–94; RESP 16–20; TEMP 36.2–36.9; O2SAT 95–100; BMI 27.1
--- NOTE | 2025-04-02 | FLU_PTH ---
PATIENT: BRENDA GRIMALDO LOC: EN U#:[id number] AGE/SX: 69/M ROOM: RE04/02/[address]: Dr. Kvng Fischer DO : 1955 BED: DIS: 04/02/2025 SPEC #: [id number] RECD: 04/02/25 12:43 STATUS: RHEA RERuss #: [id number] BHARTI: 04/02/25 00:[address]: Kvng Fischer DEPT: CYTOLOGY RECD BY: Ranjan Severino ENTERED: 04/02/25 15:05 SP TYPE: Fluid OTHR DR: Dr. Arely Flowers MD Tissues: A - Bronchus of right lower lobe Procedures: Special Stain Group II Special Stain Group I Surgery Specimen Level IV AFB Stain (control) GMS Stain (control) Cytospin Fluid HEADER OPERATION: Bronchoscopy PRE-OP DIAGNOSIS: Abnormal CT of chest TISSUE SUBMITTED: A- Right lower lobe fluid for cytology DIAGNOSIS CYTOLOGY A. Right lower lobe, BAL (cytospin, cellblock): - No malignant cells identified. - Obscuring acute inflammation. - AFB stain is nefgative for acid fast bacilli. - GMS stain is negative for microorganisms. CYTOLOGY STUDY Slides are reviewed. CYTOLOGY GROSS A. Received is 15 ml of [id number] fluid labeled with the patient's name and and designated per the requisition as Right lower lobe. Submitted for cytology and cell block preparation. 04/02/2025 CPT: 52215,78646,95862p1
[2025-04-02] MEDS: Lactated Ringers 1,000 ML 15 ML IV (11:55)
--- NOTE | 2025-04-02 11:59 | PRE.ANES_ITS ---
ASA Classification* ASA Classification ASA Classification: 3 Assessment & Plan Anesthesia* Anesthesia Assessment Anesthesia Assessment: Discussed sedation and/or anesthesia options, risks, benefits, and alternatives with patient/parents/legal guardian/POA. Questions invited. The patient/parents/legal guardian/POA seems to understand and agrees to proceed with anesthesia plan. Reviewed the physical assessment, medical history, allergy history and patient home medications list prior to surgery/procedure/anesthetic and documented any changes. Performed airway and anesthesia risk assessments. Anesthesia Type Anesthesia Type: MAC Anesthesia Focused Assessment* Temperature: 98.4 F Pulse Rate: 70 Blood Pressure: 111/68 Respiratory Rate: 20 Pulse Ox: 99 Oxygen Flow Rate (L/min): 2.5 Airway Assessment Mouth opens: >3 cm Mallampati Score: II Labs Anesthesia Preop lab: CBC WBC 12.8 K/mm3 (4.4-11.0) H 02/23/23 03:37 3 RBC 4.12 M/mm3 (4.6-6.2) L 02/23/23 03:37 02/23/23 Hgb 11.2 g/dL (13.0-16.5) L 02/23/23 03:37 3 Hct 35.4 % (40-54) L 02/23/23 03:37 02/23/23 Plt Count 244 K/mm3 (150-450) 02/23/23 03:37 02/23/23 CHEMISTRY Potassium 3.7 mmol/L (3.5-5.1) 02/23/23 03:37 02/23/23 Sodium 134 mmol/L (136-145) L 02/23/23 03:37 02/23/23 Magnesium 1.9 mg/dL (1.6-2.6) 05/08/18 22:56 05/08/18 BUN 22 mg/dL (7-18) H 02/23/23 03:37 02/23/23 Creatinine 0.71 mg/dL (0.70-1.30) 02/23/23 03:37 02/23/23 Glucose 177 mg/dL (74-106) H 02/23/23 03:37 02/23/23 POC Glucose 94 mg/dL (70-110) 05/25/21 22:29 05/25/21 TSH 3.00 uIU/mL (0.358-3.74) 01/19/21 11:46 COAG PT 13.7 SECONDS (11.7-14.9) 05/02/19 20:49 Pre-Assessment Diagnosis/Proposed Procedure Planned Operative Procedure(s): BROCHOSCOPY Anesthesia History 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 When Was Last Pacemaker Check QUESTION #4 FULL TEXT: You/Your Family Experience fever (hyperthermia) with Anesthesia Last Oral Intake Last Oral intake: Last Oral Intake NPO since 06:00 04/02/25 11:46 Meds taken in AM with sips of Yes 04/02/25 11:46 water? Meds patient instructed to ATIVAN, AUSTEDO, CARVEDILOL, 04/02/25 11:46 take am of surgery LOSARTAN, INHALERS, FLUTICASONE NOSE SPRAY, OMEPRAZOLE, PONV PONV - fabricator assembler metal products: PONV - fabricator assembler metal products Female No 04/01/25 11:41 HX of Motion Sickness No 04/01/25 11:41 HX of N/V After Surgery No 04/01/25 11:41 Non-Smoker No 04/01/25 11:41 Duration of Surgery greater No 04/01/25 11:41 than 60 minutes Number of Risk Factors PONV Score Height & Weight Height & Weight: Anesthesia: Height & Weight Height 5 ft 10 in 04/02/25 11:46 Weight: 86 kg 04/02/25 11:46 Body Mass Index (BMI) 27.1 04/02/25 11:46 Respiratory Assessment Respiratory Assessment - fabricator assembler metal products: Respiratory Tract Infection Hx - fabricator assembler metal products Hx Respiratory Tract Infection No 04/01/25 11:41 STOP Sleep Apnea STOP Sleep Apnea - fabricator assembler metal products: STOP Sleep Apnea - fabricator assembler metal products Hx Hypertension Yes 04/01/25 11:41 Hx Sleep Apnea Yes 04/01/25 11:41 CPAP No 04/01/25 11:41 BIPAP Yes: WITH 3L O2 04/01/25 11:41 Do you snore loudly (louder than talking or can be heard Do you often feel tired/ fatigued/ sleepy during daytime? Has anyone observed you stop breathing during sleep? STOP Results Positive 04/01/25 11:41 QUESTION #5 FULL TEXT : Do you snore loudly (louder than talking or can be heard through closed doors)? 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 Specify any problems Hx of Preganancy in last 3 Months Nurse Filling Out Transfusion & Questions: Date: Time: Patient unable to answer at Yes 04/01/25 11:41 this time (ie. confused, unrespo /Reproduction History /Reproductive History - fabricator assembler metal products: /Reproductive Hx- fabricator assembler metal products Hx Now No 04/01/25 11:41 Gestational Age (in weeks): EDC: Hx Hx Para Hx Section SAB No 04/01/25 11:41 Active Medications Active Medications: Current Medications Generic Name Dose Route Start Last Admin Trade Name Freq PRN Reason Stop Dose Admin Lactated Ringer's 1,000 mls @ 15 mls/hr 04/02/25 11:15 04/02/25 11:55 IV 15 mls/hr .Q48H VETO Administration PFSH Medical History BiPAP (biphasic positive airway pressure) dependence Sleep apnea On home oxygen therapy History of edema Major depressive disorder Allergic rhinitis Paraphilia Dystonia Peripheral venous insufficiency Calculus of gallbladder and bile duct w/o cholecystitis or obstruction Cataract Hypokalemia Dementia Chronic respiratory failure with hypoxia and hypercapnia Simple chronic bronchitis COPD with respiratory failure, acute Elevated fecal calprotectin Diarrhea Hyperthyroidism Hypo-osmolality and hyponatremia GERD (gastroesophageal reflux disease) Localized edema Hypertension Diabetes Schizophrenia Anxiety Depression COPD (chronic obstructive pulmonary disease) Smoker Home Medications ?Medication ?Instructions ?Recorded ?Last Taken ?Type omeprazole 20 mg tablet,delayed 20 mg PO DAILY ACID RE FLUX 03/03/19 02/19/23 06:00 History release metformin 500 mg tablet 500 mg PO BID DIABETES 04/1302/19/23 06:00 History risperidone microspheres 50 mg/2 50 mg IM Q14D MENTAL HEALTH 05/14/22 02/15/23 History mL intramuscular susp,ext release (Risperdal Consta) carvedilol 3.125 mg tablet 6.25 mg PO BID 01/10/24 Unk nown History deutetrabenazine 6 mg tablet 6 mg PO DAILY 01/10/24 Un known History (Austedo) methyl salicylate 15 %-menthol 10 1 applic topical Q4 PRN muscle pain 01/10/24 Unknown History % topical cream (Muscle Rub) prednisone 10 mg tablet 10 mg PO QDAY #30 tabs 01/09 Unknown Rx fluticasone propionate 50 2 spray intranasal DAILY #16 grams 04/14/24 Unknown Rx mcg/actuation nasal spray,suspension guaifenesin 600 mg tablet, 600 mg PO BID COUGH #90 tab s 04/14/24 Unknown Rx extended release 12 hr acetaminophen 325 mg tablet 650 mg PO Q4H PRN pain 03/30 Unknown History (Tylenol) bumetanide 1 mg tablet 1 mg PO BID 08/12/24 Unknown History potassium chloride 10 mEq 20 meq PO DAILY SUPPLEMENT 1 10/12/23 Unknown History capsule,extended release albuterol sulfate 90 mcg/actuation 2 puff inhalation Q 6H PRN 03/17/25 Unknown History aerosol inhaler (Ventolin HFA) shortness of breath or wheezing fluticasone 250 mcg-salmeterol 50 1 inh inhalation BID 03/17/25 Unknown History mcg/dose blistr powdr for inhalation glimepiride 4 mg tablet 4 mg PO QAM 03/17/25 Unknown History ipratropium 0.5 mg-albuterol 3 mg 3 ml inhalation 4X/D AY 03/17/25 Unknown History (2.5 mg base)/3 mL nebulization soln losartan 50 mg tablet 50 mg PO QDAY 03/17/25 Unkno wn History sitagliptin 50 mg tablet 50 mg PO QDAY 03/17/25 Unkno wn History tiotropium bromide 2.5 2 inh inhalation QAM 5 Unknown History mcg/actuation mist for inhalation (Spiriva Respimat) lorazepam 1 mg tablet 1 mg PO BID 04/01/25 Unknown History Allergy/AdvReac Type Severity Reaction Status Date / Time sulfamethoxazole Allergy Mild Unknown Verified 04/01/25 11:22 trimethoprim Allergy Mild Unknown Verified 04/01/25 11:22 Penicillins (PCN) Allergy Unknown Verified 04/01/25 11:22 Family History Father , at 87 Heart disease Obesity Mother , at 81 Emphysema lung Surgical History (Updated 04/01/25 @ 11:54 by Lesli Haas) History of foot surgery History of dental surgery Social History household members: none Smoking Status: Current every day smoker tobacco type: cigarettes alcohol intake: current alcohol intake frequency: other substance use type: does not use Review of Systems (Anesthesia) ROS Narrative System reviewed and no additional complaints, except as documented.
[2025-04-02 12:22] LABS: Bedside Glucose 99 mg/dL (74-106)
[2025-04-02] MEDS: Lidocaine 2% (5ml sdv) 5 ML VIAL.MPF (12:25)
[2025-04-02] MEDS: Lidocaine Jelly 2% 20 ML Syringe (URO-JET) 1 APPLIC (12:26)
--- NOTE | 2025-04-02 12:29 | OP.BRONCH_ITS ---
Patient Name: Ajit Sosa Procedure Date: 04/02/2025 11:53 AM Date of : 1955 Age: 69 Procedure: Bronchoscopy Indications: Abnormal CT scan of chest Providers: Kvng Fischer MD Referring MD: Chelsey Yanes NP Medicines: See the Anesthesia note for documentation of the administered medications Complications: No immediate complications Procedure: Pre-Anesthesia Assessment: - A History and Physical has been performed. Patient meds and allergies have been reviewed. The risks and benefits of the procedure and the sedation options and risks were discussed with the patient. All questions were answered and informed consent was obtained. Patient identification and proposed procedure were verified prior to the procedure by the physician and the nurse in the procedure room. Mental Status Examination: alert and oriented. Airway Examination: normal oropharyngeal airway. Respiratory Examination: poor air movement. CV Examination: normal. ASA Grade Assessment: II - A patient with mild systemic disease. After reviewing the risks and benefits, the patient was deemed in satisfactory condition to undergo the procedure. The anesthesia plan was to use monitored anesthesia care (MAC). Immediately prior to administration of medications, the patient was re-assessed for adequacy to receive sedatives. The heart rate, respiratory rate, oxygen saturations, blood pressure, adequacy of pulmonary ventilation, and response to care were monitored throughout the procedure. The physical status of the patient was re-assessed after the procedure. After I obtained informed consent, the scope was passed under direct vision. Throughout the procedure, the patient's blood pressure, pulse, and oxygen saturations were monitored continuously. The bronchoscope was introduced through the mouth and advanced to the tracheobronchial tree. The procedure was accomplished without difficulty. The patient tolerated the procedure well. Findings: Right Lung Abnormalities: Copious, mucopurulent, tenacious, thick secretions were found throughout the right tracheobronchial tree. They were partially obstructing the airway. The bronchoscope was advanced until wedged at the desired location for bronchoalveolar lavage. BAL was performed in the right lower lobe of the lung and sent for cell count, bacterial culture, viral smears & culture, and fungal & AFB analysis and cytology. 60 mL of fluid were instilled. 40 mL were returned. The return was mucopurulent. Mucous plugs were present in the return fluid. Therapeutic suctioning was performed. Mucus was removed from the airway and the airway was cleared. Impression: - Abnormal CT scan of chest - Copious, mucopurulent, tenacious, thick secretions were found throughout the right tracheobronchial tree. - Bronchoalveolar lavage was performed. - Therapeutic suctioning was performed. Recommendation: - Await BAL results. Procedure Code(s): --- Professional --- 66425, Bronchoscopy, rigid or flexible, including fluoroscopic guidance, when performed; with therapeutic aspiration of tracheobronchial tree, initial 67018, Bronchoscopy, rigid or flexible, including fluoroscopic guidance, when performed; with bronchial alveolar lavage Diagnosis Code(s): --- Professional --- R93.89, Abnormal findings on diagnostic imaging of other specified body structures R09.89, Other specified symptoms and signs involving the circulatory and respiratory systems CPT copyright 2021 [employer]. All rights reserved. The codes documented in this report are preliminary and upon diamond cleaner review may be revised to meet current compliance requirements. DO Kvng Massey MD 04/02/2025 12:29:35 PM This report has been signed electronically. Number of Addenda: 0 Note Initiated On: 04/02/2025 11:53 AM
--- NOTE | 2025-04-02 12:32 | PCM.POST.ANE ---
Anesthesia: Postop Eval I Current Vital Signs Temperature: 97.8 F Pulse Rate: 94 Blood Pressure: 106/60 Respiratory Rate: 16 Pulse Ox: 100 Assessment Airway patent: Yes Spontaneous unlabored respirations: Yes nausea: No Vomiting: No Anesthesia Complication: No Fluid Hydration Crystalloid volume administer (ml): 200 Total IV fluid infused: 200 Progress Note Anesthesia document: Postop Eval 1 completed: Yes
[2025-04-02 13:05] LABS: Cytology, Body Fluid / CSF SEE PATHOLOGY REPORT
--- NOTE | 2025-04-02 15:11 | POSTOPAN2_ITS ---
Anesthesia Postop Eval I Sum Postop Eval Completion status Anesthesia document: Postop Eval 1 completed: Yes Anesthesia Postop Eval I Summary Anesthesia Postop Eval I Summary: Anesthesia Postop Eval I: Assessment Summary Airway patent Yes 04/02/25 12:32 [email or web address] Spontaneous unlabored Yes 04/02/25 12:32 [email or web address] respirations Mental status nausea No 04/02/25 12:32 [email or web address] Vomiting No 04/02/25 12:32 [email or web address] Anesthesia Postop Eval I: Fluid Summary Crystalloid volume administer 200 04/02/25 12:32 [email or web address] (ml) Colloids volume administered ( ml) Blood Product volume administered (ml) Total IV fluid infused 200 04/02/25 12:32 [email or web address] Anesthesia Postop Eval I: Summary Notes Anesthesia Complication No 04/02/25 12:32 [email or web address] Anesthesia Complication Comment: Post-operative progress note Anesthesia: Postop Eval II Evaluation Mental status: Awake Pain Level: 1 nausea: No Vomiting: No
--- NOTE | 2025-04-02 15:11 | PCM.POSTANE2 ---
Anesthesia Postop Eval I Sum Postop Eval Completion status Anesthesia document: Postop Eval 1 completed: Yes Anesthesia Postop Eval I Summary Anesthesia Postop Eval I Summary: Anesthesia Postop Eval I: Assessment Summary Airway patent Yes 04/02/25 12:32 CREWMAN MAIN [email or web address] Spontaneous unlabored Yes 04/02/25 12:32 CREWMAN [employer]IN BATT[employer] [email or web address] respirations Mental status nausea No 04/02/25 12:32 CREWMAN MAIN [email or web address] Vomiting No 04/02/25 12:32 CREWMAN MAIN [email or web address] Anesthesia Postop Eval I: Fluid Summary Crystalloid volume administer 200 04/02/25 12:32 CREWMAN MAIN [email or web address] (ml) Colloids volume administered ( ml) Blood Product volume administered (ml) Total IV fluid infused 200 04/02/25 12:32 CREWMAN MAIN [email or web address] Anesthesia Postop Eval I: Summary Notes Anesthesia Complication No 04/02/25 12:32 CREWMAN MAIN [email or web address] Anesthesia Complication Comment: Post-operative progress note Anesthesia: Postop Eval II Evaluation Mental status: Awake Pain Level: 1 nausea: No Vomiting: No
[2025-04-02 15:34] LABS: Color/Body Fluid YELLOW; Source- Body Fluid BRONCHIAL LAVAGE
[2025-04-02 15:36] LABS: Red Cell Count/Body Fluid 4125 /mm3; White Blood Count/Body Fluid 32375 /mm3
[2025-04-02 15:37] LABS: Lymphocytes 2 %; Monocytes 2 %; Neutrophil (Segs) 96 %
[2025-04-05 11:09] LABS: Pathologist Comment/Body Fluid Reviewed
== END 2025-04-02 13:29 | disposition home or self-care (01) ==
LOC: EN 11:11 → AC 11:11
PROVIDERS: PCP Internal Medicine Infectious Disease; Referring Provider Internal Medicine Infectious Disease; Visit Provider Internal Medicine Critical Care Medicine
PROC: 0BJ08ZZ Inspection of Tracheobronchial Tree, Via Natural or Artificial Opening Endoscopic (ICD-10-PCS; CPT 31622; principal; 2025-04-02 11:45)
DX: J18.9 Pneumonia, unspecified organism (principal); J44.9 Chronic obstructive pulmonary disease, unspecified; E11.9 Type 2 diabetes mellitus without complications; I10 Essential (primary) hypertension; F17.210 Nicotine dependence, cigarettes, uncomplicated; K21.9 Gastro-esophageal reflux disease without esophagitis; R91.8 Other nonspecific abnormal finding of lung field; Z79.899 Other long term (current) drug therapy
CPT/HCPCS: 31624; 31645; 82962; 87015; 87070; 87077; 87116; 87205; 87206; 87252; 88108; 88305; 88312; 88313; 89050

== ENCOUNTER → 2025-06-21 | Outpatient (CLI) | payer MEDICARE, MEDICAID, SELFPAY ==
--- NOTE | 2025-06-21 14:10 | CT_ITS ---
PROCEDURE: CHEST WITHOUT CONTRAST 06/21/2025 REASON FOR EXAM: ABNORMAL CHEST CT IN SMOKER TECHNIQUE: Chest CT without contrast. Coronal and Sagittal reconstruction series were provided. One or more dose reduction techniques were used (e.g., Automated exposure control, adjustment of the mA and/or kV according to patient size, use of iterative reconstruction technique RADIATION DOSE SUMMARY: CTDlvol: 10.82 mGy DLP: 424.49 mGycm COMPARISON: Prior study dated March 08, 2025. FINDINGS: Hardware: None Lymph nodes: Stable small benign-appearing mediastinal lymph nodes. Heart and Vasculature: The heart is nonenlarged. Minimal anterior pericardial thickening. Atherosclerotic calcification of the aortic arch. Coronary Artery Calcifications: Present Lungs and Airways: Stable consolidation and volume loss in the posterior medial segment of the right lower lobe. Stable bronchiectasis and volume loss in the posterior medial segment of the left lower lobe. Stable scarring in the right lung apex. No suspicious pulmonary nodules seen. Pleura: No significant pleural effusion. Upper Abdomen: Adrenal hyperplasia. Multiple small gallstones. Bones: Degenerative changes of the thoracic spine. CT/Chest without Contrast IMPRESSION: Coronary artery calcification (CAC) is is present Stable examination. Reading Location: [place] [id number]
== END | disposition home or self-care (01) ==
LOC: CT 14:05
PROVIDERS: PCP Internal Medicine Infectious Disease; Referring Provider Nurse Practitioner Acute Care; Visit Provider Nurse Practitioner Acute Care
DX: R93.89 Abnormal findings on diagnostic imaging of other specified body structures (principal)
CPT/HCPCS: 71250